=== PATIENT | male | born 1940 | race Caucasian/White ===

== ENCOUNTER 2023-02-12 08:08 | Outpatient (OUT) | payer MEDICARE, OTHER, SELFPAY ==
[2023-02-12 08:47] LABS: Hemoglobin 15.1 g/dL (14.0-18.0); Mean Corpuscular HGB Conc 34.3 g/dL (29.9-35.2); Mean Corpuscular Hemoglobin 31.9 pg (25.9-34.0); Mean Corpuscular Volume 92.8 fL (80.0-94.0); Mean Platelet Volume 10.4 fL (9.5-13.5); Platelet Count 138 10^3/uL (150-450); Red Blood Count 4.74 10^6/uL (4.70-6.10); Red Cell Distribution Width 12.8 % (11.0-15.0); White Blood Count 6.2 10^3/uL (4.0-11.0)
[2023-02-12 08:53] LABS: Segmented Neut Absolute Manual 4.09 10^3/uL (1.4-6.5)
[2023-02-12 08:54] LABS: Eosinophils Absolute Manual 0.31 10^3/uL (0.00-0.70); Monocytes Absolute Manual 0.43 10^3/uL (0.30-0.80)
[2023-02-12 09:33] LABS: Alanine Aminotransferase 20 U/L (16-63); Anion Gap 9.6; BUN Creatinine Ratio 19.7; Calcium 8.8 mg/dL (8.5-10.1); Carbon Dioxide 30.5 mmol/L (21.0-32.0); Chloride 105 mmol/L (98-107); Chol HDL Ratio 3.4; Cholesterol 195 mg/dL (<=200); Estimated GFR (African America >60 (>=60); Estimated GFR (Non-African Ame 57 (>=60); Glucose 87 mg/dL (74-106); HDL Cholesterol 57 mg/dL (40-60); LDL Cholesterol Calculated 125.6 mg/dL; Potassium 4.1 mmol/L (3.5-5.1); Sodium 141 mmol/L (136-145); Triglycerides 62 mg/dL (<=150); VLDL CHOLESTEROL 12.4 mg/dL
[2023-02-12 09:45] LABS: Prostate Specific Antigen Scrn 2.68 ng/mL (<=4.00)
== END 2023-02-12 08:09 | disposition home or self-care (01) ==
LOC: LAB 08:16
PROVIDERS: PCP Internal Medicine; Visit Provider Internal Medicine
DX: E78.00 Pure hypercholesterolemia, unspecified (principal); N18.31 Chronic kidney disease, stage 3a; Z12.5 Encounter for screening for malignant neoplasm of prostate; Z79.899 Other long term (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 therapy
CPT/HCPCS: 36415; 80048; 80061; 84460; 85007; 85025; 85027; G0103

== ENCOUNTER 2023-08-01 11:05 | Outpatient (OUT) | payer MEDICARE, OTHER, SELFPAY ==
--- NOTE | 2023-08-01 11:12 | XR_ITS ---
[facility] [place] [id number] Patient Name: NEISHA MITCHELL MRN: [id number] date: 1940 Sex: M Assigned Patient Location: [facility] Current Patient Location: Accession/Order Number: [id number] Exam Date: 08/01/2023 11:21 Report Date: 08/02/2023 15:59 At the request of: SARA TAYLOR Procedure: XR ribs RT min 3V w CXR1V EXAMINATION: XR ribs RT min 3V w CXR1V HISTORY: Rib pain after fall COMPARISON: None. TECHNIQUE: PA and AP chest, and 4 views of the ribs FINDINGS: IMPRESSION: Minimally displaced fractures of the posterior aspect of the seventh, eighth and ninth ribs. The lung parenchyma is free of consolidation or infiltrate. No pneumothorax or pleural effusion. The cardiac, mediastinal and hilar contours are normal. Electronically authenticated by: AUGUSTO WILLIAMSON Date: 08/02/2023 15:59
== END 2023-08-01 11:06 | disposition home or self-care (01) ==
PROVIDERS: PCP Internal Medicine; Visit Provider Internal Medicine
DX: R07.89 Other chest pain (principal)
CPT/HCPCS: 71101

== ENCOUNTER 2023-09-28 09:27 | Outpatient (OUT) | payer MEDICARE, OTHER, SELFPAY ==
--- OUTSIDE RECORDS SUMMARY | 2023-09-28 09:29 | XMS_ITS | CCD ---
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 Name Role Phone BRANDON [phone] UNKNOWN Unavailable Unavailable BETH GOODEN Unavailable Unavailable BETH GOODEN Unavailable Unavailable BETH GOODEN Unavailable Unavailable Cecilio Benjamin Unavailable BRANDON, DR RUIZ Primary Care Unavailable DIAB ., JUS Admitting Unavailable DIAB ., JUS Attending Unavailable DIAB ., JUS Consulting Unavailable RASTEGAR, CHUCK Consulting Unavailable BRANDON, DR RUIZ Primary Care Unavailable HAY ., DR GONZALEZ Admitting Unavailable HAY ., DR GONZALEZ Attending Unavailable HAY ., DR GONZALEZ Consulting Unavailable DE LA FUENTE ., MR SWEET Consulting Unavailable KNABE, RADHA Consulting Unavailable BRANDON, DR RUIZ Admitting Unavailable BRANDON, DR RUIZ Attending Unavailable BRANDON, DR RUIZ Primary Care Unavailable BRANDON, DR RUIZ Consulting Unavailable ZIEBER, DR JONAS Mina Consulting Unavailable BRANDON, DR RUIZ Admitting Unavailable BRANDON, DR RUIZ Attending Unavailable BRANDON, DR RUIZ Primary Care Unavailable BRANDON, DR RUIZ Consulting Unavailable BRANDON, DR RUIZ Admitting Unavailable BRANDON, DR RUIZ Attending Unavailable BRANDON, DR RUIZ Primary Care Unavailable BRANDON, DR RUIZ Consulting Unavailable HAWLEY, WINELISE Consulting Unavailable MD Jose Enrique Leblanc II Attending Provider [phone] Jose Enrique Leblanc II Unavailable [phone] Jose Enrique Leblanc II Attending UnavailJose Enrique Malin II Admitting UnavailCecilio Mcgrath DO Primary Care Provider DAVID JAEGER Admitting Unavailable DAVID JAEGER Attending Unavailable CECILIO BENJAMIN Primary Care Unavailable Allergies Allergy Classification Reported Allergen(s) Allergy Type Date of Onset Reaction(s) Facility (7 sources) bacitracin; Translations: [bacitracin] Drug Allergy 09-11-2013 Unknown [facility] Repository (19 sources) Albuterol Drug Allergy Unknown [facility] Other (20 sources) HMG-CoA reductase inhibitor Drug allergy Unknown [facility] Other Medications Current Medications Medication Drug Class(es) Dates Sig (Normalized) Sig (Original) amLODIPine 2.5 mg oral tablet (20 sources) Dihydropyridine Calcium Channel Chanel Start: 10-12-2022 take 1 tablet by mouth every twenty-four hours amLODIPine Besylate 2.5 MG 1 tablet Orally Once a day Sep, Active atorvastatin 10 mg oral tablet (5 sources) HMG-CoA Reductase Inhibitor Start: 09-27-2022 take 1 tablet by mouth once daily in the evening Atorvastatin Calcium 10 MG 1 tablet Orally daily in evening for 30 day(s) Sep, Active clobetasol propionate 0.0005 mg/mg topical ointment (20 sources) Corticosteroid Clobetasol Propionate 0.05 % 1 application Externally Twice a day Active clonazePAM 0.5 mg oral tablet (20 sources) Benzodiazepine Start: 09-03-2023 take 1 tablet by mouth every twenty-four hours clonazePAM 0.5 MG 1 tablet at bedtime Orally Once a day for 90 days Aug, Active Start: 06-15-2023 take 1 tablet by christen th every twenty-four hours clonazePAM 0.5 MG 1 tablet at bedtime Orally Once a day May, Active Start: 02-14-2023 take 1 tablet by christen th every twenty-four hours clonazePAM 0.5 MG 1 tablet at bedtime Orally Once a day for 90 days Jan, Active Comment on above: Take 0.5 mg by mouth at bedtime as needed (1/2 tab). doxycycline hyclate 100 mg oral capsule (12 sources) Tetracycline-class Drug Start: 07-10-20 take 1 capsule by mouth every twelve hours Doxycycline Hyclate 100 MG 1 capsule Orally Twice a day for 7 days Aug, Active escitalopram 10 mg oral tablet (20 sources) Serotonin Reuptake Inhibitor Escitalopram Oxalate 10 MG TAKE 1 TABLET AT BEDTIME Active Comment on above: Take 10 mg by mouth once daily. 60 actuat fluticasone propionate 0.25 mg/actuat / salmeterol 0.05 mg/actuat dry powder inhaler (20 sources) Corticosteroid, beta2-Adrenergic Agonist take 1 puff(s) by inhalation twice daily Wixela Inhub 250-50 MCG/ACT 1 puff Inhalation Twice a day for 90 days Active take 1 puff(s) by in halation once daily FLUTICASONE/SALMETEROL (ADVAIR DISKUS INHALATION) Inhale 1 Puff as instructed once daily. 0 Active Comment on above: Inhale 1 Puff as ins tructed once daily. mupirocin 0.02 mg/mg topical ointment (20 sources) RNA Synthetase Inhibitor Antibacterial Mupirocin 2 % 1 application Externally Twice a day Active omeprazole 20 mg delayed release oral capsule (20 sources) Proton Pump Inhibitor Omeprazole 20 MG TAKE 1 CAPSULE EVERY DAY ON AN EMPTY STOMACH FOLLOWED IN 30 MINUTES BY BREAKFAST Active Comment on above: Take 20 mg by mouth once daily. predniSONE 20 mg oral tablet (3 sources) Start: take 1 tablet by mouth twice daily predniSONE 20 MG 1 tablet Orally bid w/ food for 5 days Aug, Active silver sulfADIAZINE 10 mg/ml topical cream (20 sources) Sulfonamide Antibacterial Silvadene 1 % 1 application Externally Once a day Active Silvadene 1 % 1 application Externally Once a day Active tamsulosin hydrochloride 0.4 mg oral capsule (20 sources) alpha-Adrenergic Chanel Tamsulo sin HCl 0.4 MG TAKE 1 CAPSULE EVERY EVENING Active Comment on above: Take 0.4 mg by mouth . triamcinolone acetonide 0.001 mg/mg topical ointment (20 sources) Corticosteroid Start: 05-30-2023 Triamcinolone Acetonide 0.1 % 1 application Externally Twice a day for 30 days May, Active Start: 11-09-2022 Kenalog-40 Oct, 120 mg Completed/Discontinued Medications Medication Drug Class(es) Dates Sig (Normalized) Sig (Original) acetaminophen 500 mg oral tablet (20 sources) Start: 01-02-2018 take 2 tablets by mouth every eight hours acetaminophen (TYLENOL) 500 mg tablet Take 2 tablets by mouth every 8 hours. (Mild pain reliever) 90 tablet 1 01/02/2018 Active take 2 tablets by mo ut every eight hours as needed Acetaminophen 325 MG 2 tablets by mouth Orally every 8 hours PRN Active Comment on above: Take 2 tablets by mo uth every 8 hours. (Mild pain reliever) [id number] 200 actuat albuterol 0.09 mg/actuat metered dose inhaler (4 sources) beta2-Adrenergic Agonist Start: 07-22-20 21 albuterol HFA (PROVENTIL HFA, VENTOLIN HFA) 90 mcg/actuation inhaler amoxicillin 500 mg oral tablet (4 sources) Penicillin-class Antibacterial Start: 12-05-19 19 Amoxicillin 500 mg tablet Take 4 tablets by mouth 1 hour prior to procedure and 2 tablets by mouth 6 hours after procedure 6 tablet 5 12/04/2018 Active Comment on above: Take 4 tablets by [facility] 1 hour prior to procedure and 2 tablets by mouth 6 hours after procedure aspirin 325 mg delayed release oral tablet (4 sources) Platelet Aggregation Inhibitor, Nonsteroidal Anti-inflammatory Drug Start: 01-03-20 18 take 1 tablet by mouth twice daily aspirin, enteric coated (ASPIRIN, ENTERIC COATED) 325 mg EC tablet Take 1 tablet by mouth twice daily. (Blood thinner to prevent blood clots) 84 tablet 0 01/02/2018 Active Comment on above: Take 1 tablet by [facility] twice daily. (Blood thinner to prevent blood clots) Calcium Carbonate / vitamin D3 (4 sources) take 1 tablet by mouth once daily CALCIUM CARBONATE/VITAMIN D3 (VITAMIN D-3 ORAL) Take 1 tablet by mouth once daily. 0 Active Comment on above: Take 1 tablet by [facility] once daily. COMPOUNDED PRESCRIPTION (4 sources) COMPOUNDED PRESCRIPTION Fiber Well 5mg. Take daily 0 Active Comment on above: Fiber Well 5mg. Take daily docusate sodium 100 mg oral capsule (4 sources) Start: 01-03-20 18 take 1 capsule by mouth twice daily docusate sodium (COLACE) 100 mg capsule Take 1 capsule by mouth twice daily. (Stool softener) 60 capsule 0 01/02/2018 Active Comment on above: Take 1 capsule by [facility] twice daily. (Stool softener) ferrous sulfate 325 mg oral tablet (1 source) Start: 01-03-20 18 End: 02-20-20 23 take 1 tablet by mouth twice daily at mealtime ferrous sulfate 325 mg (65 mg iron) tablet Take 1 tablet by mouth twice daily with meals. (Iron supplement) 30 tablet 0 01/02/2018 02/19/2023 Discontinued Comment on above: Take 1 tablet by [facility] twice daily with meals. (Iron supplement) FISH OIL-DHA-EPA ORAL (4 sources) take 1 capsule by mouth once daily FISH OIL-DHA-EPA ORAL Take 1 capsule by mouth once daily. 0 Active Comment on above: Take 1 capsule by mo uth once daily. MELATONIN, BULK, MISC (5 sources) MELATONIN, BULK, MISC Take 2 tablets by mouth. 0 Active End: 02-19-2023 take 2 tablets by mouth once daily at bedtime MELATONIN, BULK, MISC Take 2 tablets by mouth daily at bedtime. 0 02/19/2023 Discontinued Comment on above: Take 2 tablets by mo uth. Take 2 tablets by mo uth daily at bedtime. methylPREDNISolone (1 source) Corticosteroid Start: 2020 End: 2022 methylPREDNISolone (MEDROL, AYLA,) 4 mg Dose-Pack Take as directed on package. Do not take any NSAID'S while taking medication. 1 Package 0 05/09/2021 02/19/2023 Discontinued Comment on above: Take as directed on package. Do not take any NSAID'S while taking medication. Miscellaneous Medical Supply (TABLET CUTTER) misc (1 source) Start: 2017 End: 2022 Miscellaneous Medical Supply (TABLET CUTTER) misc Indications: Primary osteoarthritis of right hip [place] Please include hit kit 1 Each 0 12/12/2017 02/19/2023 Discontinued Comment on above: [place] Please include hit kit Multivitamin capsule (4 sources) take 1 capsule by mouth once daily Multivitamin capsule Take 1 capsule by mouth once daily. 0 Active Comment on above: Take 1 capsule by mo uth once daily. nabumetone 500 mg oral tablet (20 sources) Nonsteroidal Anti-inflammatory Drug Start: 2020 nabumetone (RELAFEN) 500 mg tablet Problems Active Problems Problem Classification Problem Date Documented Date Episodic/Chronic Acute bronchitis (8 sources) Acute bronchitis; Translations: [Acute bronchitis due to other specified organisms] Episodic Allergic reactions (11 sources) Inflammatory dermatosis; Translations: [Dermatitis, unspecified] 08-15-2021 Episodic Anxiety disorders (20 sources) Generalized anxiety disorder; Translations: [Generalized anxiety disorder] Onset: 09-11-2013 Chronic Aspiration pneumonitis; food/vomitus (11 sources) Pneumonitis due to inhalation of food or vomitus; Translations: [Pneumonitis due to inhalation of food and vomit] Onset: 12-06-2021 Episodic Asthma (5 sources) Unspecified asthma, uncomplicated; Translations: [Asthma] Onset: 08-15-2022 01-02-2018 Chronic Chronic kidney disease (20 sources) Chronic kidney disease stage 3A ; Translations: [Stage 3a chronic kidney disease] Chronic Chronic obstructive pulmonary disease and bronchiectasis (20 sources) Emphysematous bronchitis; Translations: [Chronic obstructive pulmonary disease, unspecified] Chronic Disorders of lipid metabolism (20 sources) Pure hypercholesterolemia; 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] Onset: 02-09-2022 Chronic Esophageal disorders (15 sources) Gastroesophageal reflux disease; Translations: [Gastro-esophageal reflux disease without esophagitis] 01-02-2018 Chronic Essential hypertension (20 sources) Essential hypertension; Translations: [Essential (primary) hypertension] Chronic Genitourinary symptoms and ill-defined conditions (1 source) Nocturia Episodic Gout and other crystal arthropathies (17 sources) Chondrocalcinosis of joint of left knee; Translations: [Other chondrocalcinosis, left knee] Chronic Heart valve disorders (20 sources) Systolic murmur; Translations: [Cardiac murmur, unspecified] Episodic Hyperplasia of prostate (20 sources) Lower urinary tract symptoms due to benign prostatic hypertrophy; Translations: [Benign prostatic hyperplasia with lower urinary tract symptoms] Chronic Nonspecific chest pain (1 source) Other chest pain Episodic Occlusion or stenosis of precerebral arteries (20 sources) Bilateral stenosis of carotid arteries; Translations: [Occlusion and stenosis of bilateral carotid arteries] Onset: 09-27-2022 Chronic Osteoarthritis (20 sources) Localized, primary osteoarthritis of the shoulder region; Translations: [Primary osteoarthritis, left shoulder] Onset: 10-30-2017 Chronic Other acquired deformities (20 sources) Joint contracture of the ankle and/or foot; Translations: [Contracture, left ankle] Chronic Other acquired deformities (7 sources) Acquired spondylolisthesis; Translations: [Spondylolysis, lumbar region] Episodic Other aftercare (2 sources) 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; Translations: [OTH PEDIATRIC CNS CURRENT DRUG THERAPY] Onset: 11-06-2022 Episodic Other circulatory disease (7 sources) Elevated blood-pressure reading without diagnosis of hypertension; Translations: [Elevated blood-pressure reading, without diagnosis of hypertension] Episodic Other circulatory disease (6 sources) Other specified symptoms and signs involving the circulatory and respiratory systems; Translations: [OTH SPEC SX SIGNS INVLV CIRC RS] Onset: 09-26-2022 Episodic Other connective tissue disease (20 sources) Plantar fasciitis; Translations: [Plantar fascial fibromatosis] Episodic Other connective tissue disease (7 sources) Pain in left foot; Translations: [Pain in left foot] Episodic Other connective tissue disease (20 sources) Olecranon bursitis; Translations: [Olecranon bursitis, right elbow] Episodic Other connective tissue disease (1 source) Olecranon bursitis, right elbow; Translations: [Olecranon bursitis of right elbow] Episodic Other diseases of veins and lymphatics (8 sources) Stasis dermatitis; Translations: [Venous insufficiency (chronic) (peripheral)] Episodic Other diseases of veins and lymphatics (1 source) Venous insufficiency (chronic) (peripheral) Episodic Other injuries and conditions due to external causes (2 sources) Unspecified multiple injuries, initial encounter Episodic Other lower respiratory disease (7 sources) Dyspnea on exertion; Translations: [Other forms of dyspnea] Episodic Other lower respiratory disease (3 sources) Shortness of breath; Translations: [SHORTNESS OF BREATH] Onset: 08-10-2022 Episodic Other nervous system disorders (20 sources) Lesion of ulnar nerve; Translations: [Lesion of ulnar nerve, left upper limb] Chronic Other nervous system disorders (4 sources) Ulnar nerve entrapment at elbow; Translations: [Lesion of ulnar nerve, unspecified upper limb] Onset: 09-11-2013 09-11-2013 Chronic Other nervous system disorders (1 source) Lesion of ulnar nerve, left upper limb; 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] Chronic Other non-traumatic joint disorders (4 sources) Effusion, left knee; Translations: [EFFUSION LEFT KNEE] Onset: 11-05-2022 Episodic Other non-traumatic joint disorders (1 source) Pain in left knee Episodic Other screening for suspected conditions (not mental disorders or infectious disease) (1 source) Encounter for screening for malignant neoplasm of prostate Episodic Other skin disorders (7 sources) Localized swelling of left lower leg; Translations: [Localized swelling, mass and lump, left lower limb] Episodic Other skin disorders (1 source) Xerosis cutis Episodic Residual codes; unclassified (20 sources) Obstructive sleep apnea syndrome; Translations: [Obstructive sleep apnea (adult) (pediatric)] 01-02-2018 Chronic Residual codes; unclassified (3 sources) Obstructive sleep apnea (adult) (pediatric) Chronic Residual codes; unclassified (1 source) Acquired absence of other specified parts of digestive tract; Translations: [ACQ ABSENCE OTH PART DIGESTV TRACT] Onset: 11-06-2022 Episodic Retinal detachments; defects; vascular occlusion; and retinopathy (20 sources) Hemorrhage of right retina; Translations: [Retinal hemorrhage, right eye] Chronic Skin and subcutaneous tissue infections (2 sources) Cellulitis of right lower limb Episodic Spondylosis; intervertebral disc disorders; other back problems (20 sources) Lumbar spondylosis; Translations: [Spondylosis without myelopathy or radiculopathy, lumbar region] Chronic Sprains and strains (1 source) Strain of unspecified muscle(s) and tendon(s) at lower leg level, left leg, initial encounter Episodic Superficial injury; contusion (9 sources) Contusion of left foot; Translations: [Contusion of left foot, subsequent encounter] Episodic Unclassified (1 source) CONTACT W/AND (SUSP) EXPOS COVID-19; Translations: [CONTACT W/AND (SUSP) EXPOS COVID-19] Onset: 08-15-2022 Unclassified (1 source) Pain in left knee; Translations: [Pain in left knee] Onset: 11-09-2022 Past or Other Problems Problem Classification Problem Date Documented Da te Episodic/Chronic Chronic kidney disease (8 sources) Chronic kidney disease; Translations: [CHRONIC KIDNEY DISEASE STAGE 3A] Onset: 02-14-2022 Chronic obstructive pulmonary disease and bronchiectasis (1 source) Bronchitis, not specified as acute or chronic; Translations: [BRONCHITIS NOT SPEC ACUTE/CHRON] Onset: 12-15-2021 Episodic Esophageal disorders (13 sources) Esophageal disorders; Translations: [Gastroesophageal reflux disease with esophagitis without hemorrhage] Other connective tissue disease (4 sources) Impingement syndrome of shoulder region; Translations: [Impingement syndrome of unspecified shoulder] Onset: 09-11-2013 09-11-2013 Episodic Other connective tissue disease (4 sources) History of cervical spine fusion; Translations: [Arthrodesis status] Onset: 09-11-2013 09-11-2013 Episodic Other connective tissue disease (4 sources) Partial thickness rotator cuff tear; Translations: [Incomplete rotator cuff tear or rupture of right shoulder, not specified as traumatic] Onset: 01-11-2017 01-11-2017 Episodic Other connective tissue disease (4 sources) Full thickness rotator cuff tear; Translations: [Complete rotator cuff tear or rupture of right shoulder, not specified as traumatic] Onset: 05-17-2017 05-17-2017 Episodic Spondylosis; intervertebral disc disorders; other back problems (17 sources) Lumbar radiculopathy; Translations: [Radiculopathy, lumbar region] Onset: 09-29-2013 Episodic Results Test Name Value Interpretation Reference Range Facility [facility] 03-20-2023 CNPN Telephone (SPNMAV) RUPERTO THORPE ([id number]) 1940 [address] Mo* Date Time Provider Department 03/20/23 DAVID JAEGER SPARAV During your visit today, we recorded the following information about you: Neida Porter MA 03/20/2023 12:30 PM Signed DATE OF SERVICE: 03/15/2023 PATIENT'S PHONE NUMBERS: [phone] (home) OR @[facility]@ PROVIDER: Dr. Jaeger PROCEDURE: Elective Pain Management Procedure Left message on machine Asked pt to call back and speak with the specialty triage nurse with update. Please obtain percentage better and the duration of improvement. Please inquire if there were any problems afterwards. Thanks, Roland Lira, RN 03/21/2023 1:31 PM Signed Patient calling back 15% improvement so far Numbness and tingling in Left Foot Also still having pain in his Hamstring 6/10 Pain is Zero when sleeping States he does not have any trouble sleeping Pain is when he is up and trying to work Requesting to call his CELL ONLY [phone] what to do next Leave Detailed messages Neida Porter MA 03/21/2023 2:01 PM Signed Formatted spine intervention order and sent to Dr. Jaeger for approval. Neida Porter MA 03/21/2023 2:01 PM Signed Addended by: NEIDA PORTER on: 03/21/2023 02:01 PM Modules accepted: David Dorsey DO 03/21/2023 2:06 PM Signed Addended by: DAVID JAEGER on: 03/21/2023 02:06 PM Modules accepted: Orders Neida Porter MA 03/21/2023 2:08 PM Signed Called and spoke with patient. Advised patient that spine injection can take up to 10 days to reach maximum effect. Advised patient that he can schedule another injection if no improvement. Order is in chart. Patient opted to wait the 10 days to see if he gets any more improvement in system. Gave patient phone number of spine injection schedulers to call at [phone]. Patient will call if he wants to schedule another injection. 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 - nabumetone (RELAFEN) 500 mg tablet - Amoxicillin 500 mg tablet Take 4 tablets by mouth 1 hour prior to procedure and 2 tablets by mouth 6 hours after procedure - acetaminophen (TYLENOL) 500 mg tablet Take 2 tablets by mouth every 8 hours. (Mild pain reliever) - docusate sodium (COLACE) 100 mg capsule Take 1 capsule by mouth twice daily. (Stool softener) - aspirin, enteric coated (ASPIRIN, ENTERIC COATED) 325 mg EC tablet Take 1 tablet by mouth twice daily. (Blood thinner to prevent blood clots) - FISH OIL-DHA-EPA ORAL Take 1 capsule by mouth once daily. - COMPOUNDED PRESCRIPTION Fiber Well 5mg. Take daily - FLUTICASONE/SALMETEROL (ADVAIR DISKUS INHALATION) Inhale 1 Puff as instructed once daily. - tamsulosin ER (FLOMAX) 0.4 mg cp24 Take 0.4 mg by mouth. - escitalopram oxalate (LEXAPRO) 10 mg tablet Take 10 mg by mouth once daily. - omeprazole (PRILOSEC) 20 mg capsule Take 20 mg by mouth once daily. - clonazePAM (KLONOPIN) 0.5 mg tablet Take 0.5 mg by mouth at bedtime as needed (1/2 tab). - CALCIUM CARBONATE/VITAMIN D3 (VITAMIN D-3 ORAL) Take 1 tablet by mouth once daily. - Multivitamin capsule Take 1 capsule by mouth once daily. Problem List As Of Date 03/20/2023 Noted Resolved Multiple allergies [Z88.9] Anxiety [F41.9] 09/11/2013 Impingement syndrome, shoulder [M75.40] 09/11/2013 Cubital tunnel syndrome [G56.20] 09/11/2013 Status post cervical spinal fusion [Z98.1] 09/11/2013 Pain, upper back [M54.9] 09/29/2013 Incomplete tear of right rotator cuff [M75.111] 01/11/2017 Complete tear of right rotator cuff [M75.121] 05/17/2017 Osteoarthritis of right hip [M16.11] 10/30/2017 Asthma [J45.909] GERD (gastroesophageal reflux disease) [K21.9] JACI (obstructive sleep apnea) [G47.33] Primary osteoarthritis of right hip [M16.11] 01/01/2018 BPH (benign prostatic hyperplasia) [N40.0] Encounter Status:Closed by NEIDA PORTER on 03/20/23 [facility] OPERATIVE NOon 03-15-2023 OPERATIVE NO HNO ID: [id number] Author: David Jaeger, DO Service: ? Author Type: Physician Type: Operative Report Filed: 03/15/2023 9:43 AM Note Text: Pt presents for f/u. Continues to have lt leg pain. Last injection was over 18 months ago. Wants to proceed with an injection today to address the presenting symptoms. Consent obtained. Lt side was marked in the pre-op area. Pt is aware of risks, benefits, alternatives, expected outcome, equipment and personnel. The patient was offered a procedure / surgery at a [facility] facility. Patient and I have discussed in detail the risk of exposure to and/or potential harm posed by the COVID-19 virus with having a surgery/procedure at this time versus the risk of delaying the surgery/procedure. It is not possible to know either the risk of delaying the surgery or procedure or chance of getting an infection with perfect accuracy, but a joint decision was made between the patient and the surgeon/proceduralist to proceed at this time with the scheduled surgery/procedure as indicated on the consent form. [facility] approved time out was performed identifying the site, side and level of procedure prior to start of procedure. [facility] - ELECTIVE PROCEDURE Lumbar Transforaminal Epidural Steroid Injection and/or Selective Nerve Root Block under Fluoroscopy Indication: Lumbar Spinal Stenosis with neurogenic claudication and Lt thoracolumbar radiculitis The risks and benefits of the procedure were discussed with the patient. The verbal and written informed consent of the patient was obtained. The patient was taken to the fluoroscopy suite. The patient was placed in the prone position on the fluoroscopic table, and the lumbar area was prepped and draped in a sterile fashion. DuraPrep was used per skin prep guidelines. We waited 3 minutes by timer for the DuraPrep to dry before proceed with the procedure. Using fluoroscopic guidance the L5 vertebral body was definitively identified using the most caudal normal disc space labeled as L5-S1. The iliac crest was also visualized as a secondary landmark identifying the L4-5 level. First image is with a needle marker on the lt side. The Lt L3-4 neural foramen was identified using fluoroscopic guidance after which the overlying skin was anesthetized using sterile technique with 1% preservative free Xylocaine. A sterile 3.5 inch 22G spinal needle was introduced after which the needle tip was carefully directed toward the inferior (6 o'clock) position of the pedicle which formed the roof of the identified foramen. No blood or CSF was aspirated. Omnipaque 300mgI/mL, approximately 1 cc was injected to rule out intravascular placement of the needle. Medial flow was noted on AP/ oblique view along with contrast under the pedicle on the lateral view. X-rays were obtained for documentation purpose. After this, 10 mg of dexamethasone + 3 cc's of 2% Xylocaine preservative free was injected into the intervertebral foramen The needle was then removed. Vital signs remained normal. There were no complications. Pulse oximeter was used throughout the procedure and the patient's pulse and oxygen saturation remained within normal limits. The patient tolerated the procedure well. The patient was instructed to apply ice over the injection site for twenty minutes every two hours for the next twenty-four to forty-eight hours. The patient was also instructed to contact me if there is any exacerbation of the symptoms. Post procedure instruction sheet was given. The patient was recommended to follow up with me in one to two weeks. Incision/Procedure Start Time: 9:37 AM Incision Close/Procedure End Time: 9:41 AM Date of Service: 03/15/2023 I was present for the entire duration of the procedure and I performed the entire procedure. David Jaeger DO, MBA [facility] 02-26-2023 [facility] Telephone (SPNMAV) RUPERTO THORPE ([id number]) 1940 [address] [facility] [place] [facility] Date Time Provider Department 02/26/23 DAVID JAEGER During your visit today, we recorded the following information about you: Linda Knox LPN 02/26/2023 4:49 PM Signed Spoke to patient in [facility] to pre procedure instructions. Pt must have a front loader residential driver. Pt advised to arrive 30 min prior. Pt to advised to arrive at 8:50am for a 9:20am procedure. , 03/15. Pt advised will also receive a call the day before from the surgery center to confirm date/time. Pt can eat and drink as normal. and Pt can take medications as normal. No alcohol 24 hours prior. Pt is on ASA.-81 mg okay to take. Advised on location of [facility] [place] [address] Pt will receive a follow up call several days after by a meat service team member. If you experience any increase in weakness, difficulty walking or significant increase in pain that last more than 4 hours, please proceed to the Emergency Room and tell them you had a spine procedure done recently. Additionally, call us and notify us of these symptoms. Please call [phone] if you have any questions. Pt verbalized understanding. Allergies As of Date: 02/26/2023 Noted Allergy Reaction BACITRACIN 09/11/2013 16 - Unknown Date Reviewed: 07/19/2021 Reviewed by: Kathrine Sood RN - Fully Assessed Reason for Visit: Procedure [88] Prescriptions as of 02/26/2023 - albuterol HFA (PROVENTIL HFA, VENTOLIN HFA) 90 mcg/actuation inhaler - MELATONIN, BULK, MISC Take 2 tablets by mouth. - nabumetone (RELAFEN) 500 mg tablet - Amoxicillin 500 mg tablet Take 4 tablets by mouth 1 hour prior to procedure and 2 tablets by mouth 6 hours after procedure - acetaminophen (TYLENOL) 500 mg tablet Take 2 tablets by mouth every 8 hours. (Mild pain reliever) - docusate sodium (COLACE) 100 mg capsule Take 1 capsule by mouth twice daily. (Stool softener) - aspirin, enteric coated (ASPIRIN, ENTERIC COATED) 325 mg EC tablet Take 1 tablet by mouth twice daily. (Blood thinner to prevent blood clots) - FISH OIL-DHA-EPA ORAL Take 1 capsule by mouth once daily. - COMPOUNDED PRESCRIPTION Fiber Well 5mg. Take daily - FLUTICASONE/SALMETEROL (ADVAIR DISKUS INHALATION) Inhale 1 Puff as instructed once daily. - tamsulosin ER (FLOMAX) 0.4 mg cp24 Take 0.4 mg by mouth. - escitalopram oxalate (LEXAPRO) 10 mg tablet Take 10 mg by mouth once daily. - omeprazole (PRILOSEC) 20 mg capsule Take 20 mg by mouth once daily. - clonazePAM (KLONOPIN) 0.5 mg tablet Take 0.5 mg by mouth at bedtime as needed (1/2 tab). - CALCIUM CARBONATE/VITAMIN D3 (VITAMIN D-3 ORAL) Take 1 tablet by mouth once daily. - Multivitamin capsule Take 1 capsule by mouth once daily. Problem List As Of Date 02/26/2023 Noted Resolved Multiple allergies [Z88.9] Anxiety [F41.9] 09/11/2013 Impingement syndrome, shoulder [M75.40] 09/11/2013 Cubital tunnel syndrome [G56.20] 09/11/2013 Status post cervical spinal fusion [Z98.1] 09/11/2013 Pain, upper back [M54.9] 09/29/2013 Incomplete tear of right rotator cuff [M75.111] 01/11/2017 Complete tear of right rotator cuff [M75.121] 05/17/2017 Osteoarthritis of right hip [M16.11] 10/30/2017 Asthma [J45.909] GERD (gastroesophageal reflux disease) [K21.9] JACI (obstructive sleep apnea) [G47.33] Primary osteoarthritis of right hip [M16.11] 01/01/2018 BPH (benign prostatic hyperplasia) [N40.0] Encounter Status:Closed by LINDA KNOX LPN on 02/26/23 [facility] 02-19-2023 CHELLE Telephone (SPNMAV) RUPERTO THORPE ([id number]) 1940 Jill Marie* Date Time Provider Department 02/19/23 DAVID JAEGER SPNMAV During your visit today, we recorded the following information about you: Camilla Jarrell [facility] 02/19/2023 9:27 AM Signed Ruperto Thorpe daughter Celi is calling David Jaeger DO today to ask about getting patient a shot again - Last one in 2020 Please advise what patient needs as far as OV or MRI or if he can be scheduled for procedure - daughter states she left a VM somewhere last week but never heard back Please call Celi as patient cannot hear well [phone] Patient has been identified by name and birthdate. Duration of symptoms: N/A Person calling: daughter: Celi Call patient at: N/A [phone] (home) [phone] (cell) Was an appointment scheduled: No Closing statement: Results or non-symptom based questions: Thank you for calling [facility], your call will be returned within the next business day. Camilla Jarrell Pss Linda Knox LPN 02/19/2023 9:45 AM Signed Spine Intervention order formatted for review Linda Chandler DRUMMOND 02/19/2023 11:59 AM Signed Order approved Spoke to daughter in reguards to pre procedure instructions. Daughter given scheduling number [phone] Pt must have a front loader residential driver. Pt advised to arrive 30 min prior to the time given by the cloud infrastructure architect. Pt advised will also receive a call the day before from the surgery center to confirm date/time. Pt can eat and drink as normal. and Pt can take medications as normal. No alcohol 24 hours prior. Pt is on ASA.- 81 mg okay to take. and must Advised on location of ASC-2nd floor [facility] Pt will receive a follow up call several days after by a meat service team member. If you experience any increase in weakness, difficulty walking or significant increase in pain that last more than 4 hours, please proceed to the Emergency Room and tell them you had a spine procedure done recently. Additionally, call us and notify us of these symptoms. Please call [phone] if you have any questions. Pt verbalized understanding. 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 - nabumetone (RELAFEN) 500 mg tablet - Amoxicillin 500 mg tablet Take 4 tablets by mouth 1 hour prior to procedure and 2 tablets by mouth 6 hours after procedure - acetaminophen (TYLENOL) 500 mg tablet Take 2 tablets by mouth every 8 hours. (Mild pain reliever) - docusate sodium (COLACE) 100 mg capsule Take 1 capsule by mouth twice daily. (Stool softener) - aspirin, enteric coated (ASPIRIN, ENTERIC COATED) 325 mg EC tablet Take 1 tablet by mouth twice daily. (Blood thinner to prevent blood clots) - FISH OIL-DHA-EPA ORAL Take 1 capsule by mouth once daily. - COMPOUNDED PRESCRIPTION Fiber Well 5mg. Take daily - FLUTICASONE/SALMETEROL (ADVAIR DISKUS INHALATION) Inhale 1 Puff as instructed once daily. - tamsulosin ER (FLOMAX) 0.4 mg cp24 Take 0.4 mg by mouth. - escitalopram oxalate (LEXAPRO) 10 mg tablet Take 10 mg by mouth once daily. - omeprazole (PRILOSEC) 20 mg capsule Take 20 mg by mouth once daily. - clonazePAM (KLONOPIN) 0.5 mg tablet Take 0.5 mg by mouth at bedtime as needed (1/2 tab). - CALCIUM CARBONATE/VITAMIN D3 (VITAMIN D-3 ORAL) Take 1 tablet by mouth once daily. - Multivitamin capsule Take 1 capsule by mouth once daily. 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.1] 09/11/2013 Pain, upper back [M54.9] 09/29/2013 Incomplete tear of right rotator cuff [M75.111] 01/11/2017 Complete tear of right rotator cuff [M75.121] 05/17/2017 Osteoarthritis of right hip [M16.11] 10/30/2017 Asthma [J45.909] GERD (gastroesophageal reflux disease) [K21.9] JACI (obstructive sleep apnea) [G47.33] Primary osteoarthritis of right hip [M16.11] 01/01/2018 BPH (benign prostatic hyperplasia) [N40.0] Medications Discontinued During This Encounter Prescriptions - Miscellaneous Medical Supply (TABLET CUTTER) misc (Discontinued) [place] Please include hit kit - methylPREDNISolone (MEDROL, AYLA,) 4 mg Dose-Pack (Discontinued) Take as directed on package. Do not take any NSAID'S while taking medi (more content not included)... Normal [facility] XR knee LT 4V*on 11-09-2022 XR knee LT 4V* [facility] Main [employer] [address] [place] [address] XRay Report Signed Patient: Ruperto Thorpe MR#: [id number] 5 : 1940 Acct:[id number] Age/Sex: 82 / M ADM Date: 11/09/22 Loc: SOXD Room: Type: [facility] Attending Dr: Jose Enrique Leblanc II, MD Copies to: Jose Enrique Leblanc MD Ordering Provider: Jose Enrique Leblanc MD Date of Service: 11/09/22 XR/XR knee LT 4V*: Acute pain of left knee XR knee LT 4V* 11/09/2022 3:15 PM SIGNS AND SYMPTOMS: Acute pain of left knee PROTOCOL: Frontal, lateral, oblique, and sunrise views of the left knee COMPARISON: 11/05/2022 FINDINGS: There is similar narrowing of the weightbearing joint spaces with chondrocalcinosis of the menisci suggesting underlying CPPD. There is narrowing of the patellofemoral joint space with spurring at the superior pole of patella. There is a small joint effusion. No soft tissue swelling. No acute displaced fracture. Vascular calcifications are present posteriorly. XR/XR knee LT 4V* IMPRESSION: Tricompartmental degenerative changes are noted in the left knee with a small joint effusion. There is chondrocalcinosis of the menisci suggesting underlying CPPD. Impression dictated by: Darren Yuen M.D.11/09/2022 5:03 PM Dictation Location: [place] [address] Transcribed By: [facility] 11/09/221702 Dictated By: Darren Yuen II, MD 11/09/221700 Signed By: 11/09/221702 Normal [facility] XR knee LT 4V* [facility] [employer] Other XR knee LT 4V* [facility] Main [facility] [employer] Other XR knee LT 4V* [address] [place] [address] [employer] Other XR knee LT 4V* [place] [address] No rt [employer] Other XR knee LT 4V* XRay Report [employer] Other XR knee LT 4V* Signed [employer] Other XR knee LT 4V* Patient: Ruperto Thorpe MR#: [id number] [employer] Other XR knee LT 4V* 5 [employer] Other XR knee LT 4V* : 1940 Acct:[id number] [employer] Other XR knee LT 4V* Age/Sex: 82 / M ADM Date: 11/09/22 [employer] Other XR knee LT 4V* Loc: [facility] Room: Type : REG I [employer] Other XR knee LT 4V* Attending Dr: Jose Enrique Leblanc II, MD [employer] Other XR knee LT 4V* Copies to: Jose Enrique Leblanc MD [employer] Other XR knee LT 4V* Ordering Provider: Jose Enrique Leblanc MD [employer] Other XR knee LT 4V* Date of Service: 11/09/22 [employer] Other XR knee LT 4V* XR/XR knee LT 4V*: Acute pain of left knee [employer] Other XR knee LT 4V* XR knee LT 4V* 11/09/2022 3:15 PM [employer] Other XR knee LT 4V* SIGNS AND SYMPTOMS: Acute pain of left knee [employer] Other XR knee LT 4V* PROTOCOL: Frontal, lateral, oblique, and sunrise views of the left knee [employer] Other XR knee LT 4V* COMPARISON: 11/05/2022 [employer] Other XR knee LT 4V* FINDINGS: [employer] Other XR knee LT 4V* There is similar narrowing of the weightbearing joint spaces with chondrocalcinosis of the menisci [employer] Other XR knee LT 4V* suggesting underlyin g CPPD. There is narrowing of the patellofemoral joint space with spurring at [employer] Other XR knee LT 4V* the superior pole of patella. There is a small joint effusion. No soft tissue swelling. No acute [employer] Other XR knee LT 4V* displaced fracture. Vascular calcifications are present posteriorly. [employer] Other XR knee LT 4V* XR/XR knee LT 4V* [employer] Other XR knee LT 4V* IMPRESSION: [employer] Other XR knee LT 4V* Tricompartmental degenerative changes are noted in the left knee with a small joint effusion. [employer] Other XR knee LT 4V* There is chondrocalcinosis of the menisci suggesting underlying CPPD. [employer] Other XR knee LT 4V* Impression dictated by: Darren Yuen M.D.11/09/2022 5:03 PM [employer] Other XR knee LT 4V* Dictation Location: [place] [address] [employer] Other XR knee LT 4V* Transcribed By: COLIN 11/09/22 [facility] [employer] Other XR knee LT 4V* Dictated By: Darren Yuen II, MD 11/09/22 [facility] [employer] Other XR knee LT 4V* Signed By: [employer] Other XR knee LT 4V* 11/09/221702 [employer] Other XR pelvis 1-2Von 11-09-2022 XR pelvis 1-2V [facility] Main [employer] [address] [place] [address] XRay Report Signed Patient: Ruperto Thorpe MR#: [id number] 5 : 1940 Acct:[id number] Age/Sex: 82 / M ADM Date: 11/09/22 Loc: SOXD Room: Type: [facility] Attending Dr: Jose Enrique Leblanc II, MD Copies to: Jose Enrique Leblanc MD Ordering Provider: Jose Enrique Leblanc MD Date of Service: 11/09/22 XR/XR pelvis 1-2V: Acute pain of left knee XR pelvis 1-2V 11/09/2022 3:15 PM SIGNS AND SYMPTOMS: Left knee pain PROTOCOL: Frontal radiograph of the chest COMPARISON: None FINDINGS: There is mild narrowing of the left hip joint space with subcortical cystic change on both sides of the joint along the acetabular there is chondrocalcinosis of the labrum overlying the superior acetabular rim and superior lateral femoral head. The bony ring of the pelvis is intact. There is total right hip arthroplasty. Degenerative changes are noted in the sacroiliac joints. No fracture is XR/XR pelvis 1-2V IMPRESSION: Degenerative changes are noted in the left hip with findings suspicious for previous labral pathology. Postoperative changes are noted in the right hip with total right hip arthroplasty hardware. Impression dictated by: Darren Yuen M.D.11/09/2022 5:01 PM Dictation Location: [place] [address] Transcribed By: [facility] 11/09/221700 Dictated By: Darren Yuen II, MD 11/09/221699 Signed By: 11/09/221700 [facility] XR pelvis 1-2V XR/XR pelvis 1-2V: Acute pain of left knee [employer] Other XR pelvis 1-2V XR pelvis 1-2V 11/09/2022 3:15 PM [employer] Other XR pelvis 1-2V SIGNS AND SYMPTOMS: Left knee pain [employer] Other XR pelvis 1-2V PROTOCOL: Frontal radiograph of the chest [employer] Other XR pelvis 1-2V COMPARISON: None [employer] Other XR pelvis 1-2V There is mild narrowing of the left hip joint space with subcortical cystic change on both sides of [employer] Other XR pelvis 1-2V the joint along the acetabular there is chondrocalcinosis of the labrum overlying the superior [employer] Other XR pelvis 1-2V acetabular rim and superior lateral femoral head. The bony ring of the pelvis is intact. There is [employer] Other XR pelvis 1-2V total right hip arthroplasty. Degenerative changes are noted in the sacroiliac joints. No fracture [employer] Other XR pelvis 1-2V is [employer] Other XR pelvis 1-2V XR/XR pelvis 1-2V [employer] Other XR pelvis 1-2V Degenerative changes are noted in the left hip with findings suspicious for previous labral [employer] Other XR pelvis 1-2V pathology. [employer] Other XR pelvis 1-2V Postoperative change s are noted in the right hip with total right hip arthroplasty hardware. [employer] Other XR pelvis 1-2V Impression dictated by: Darren Yuen M.D.11/09/2022 5:01 PM [employer] Other XR pelvis 1-2V Transcribed By: COLIN 11/09/22 170 [employer] Other XR pelvis 1-2V Dictated By: Darren Yuen II, MD 11/09/221699 [employer] Other XR pelvis 1-2V 11/09/22 1701 [facility] Other XR KNEE LT 4V or >on 023 XR KNEE LT 4V or > EXAM: XR KNEE LT 4V or > HISTORY: Pain of joint of knee COMPARISON: None. TECHNIQUE: 3 views Left knee FINDINGS: Bones: No acute or aggressive appearing bony lesion. There is no acute fracture. Joints: Mild to moderate tricompartmental osteoarthritis, characterized by marginal osteophyte and joint space narrowing. There is chondrocalcinosis. Soft tissues: Unremarkable. IMPRESSION: Afhi-gt-iootoexl osteoarthritis as described above. Chondrocalcinosis. No acute fracture or dislocation. Electronically authenticated by: CHUCK JONES Date: 2022-11-05 11:19 Normal [facility] US CAROTID ART BILon 023 US CAROTID ART LEOBARDO EXAMINATION: US CAROTID ART LEOBARDO HISTORY: Cardiovascular symptoms ; abnormal right eye exam COMPARISON: No relevant comparison available. TECHNIQUE: Duplex Doppler ultrasound analysis of carotid and vertebral arteries. . Bilateral carotid arterial duplex examination was performed using B-mode, color flow and spectral analysis. Carotid stenosis is reported according to validated velocity parameters, similar to NASCET criteria. FINDINGS: RIGHT CAROTID ARTERY: Atherosclerotic plaque causing moderate narrowing of right bulb, up to 73% area reduction. RIGHT VERTEBRAL: Antegrade flow. Subclavian: PSV: 82.0 cm/s EDV: 0.0 cm/s CCA: Prox: PSV: 88.5 cm/s EDV: 14.2 cm/s Mid: PSV: 78.1 cm/s EDV: 11.6 cm/s Distal: PSV: 55.9 cm/s EDV: 12.9 cm/s BULB: PSV: 79.4 cm/s EDV: 15.5 cm/s ICA: Prox: PSV: 57.2 cm/s EDV: 10.3 cm/s Mid: PSV: 53.3 cm/s EDV: 14.2 cm/s Distal: PSV: 69.0 cm/s EDV: 19.4 cm/s ECA: PSV: 197.9 cm/s EDV: 0.0 cm/s VERTEBRAL: PSV: 25.8 cm/s EDV: 5.8 cm/s ICA/CCA ratio: PSV: 1.4 EDV: 1.2 LEFT CAROTID ARTERY: Atherosclerotic plaque causing moderate narrowing of left bulb, up to 61% area reduction. LEFT VERTEBRAL: Antegrade flow. Subclavian: PSV: 95.6 cm/s EDV: 0.0 cm/s CCA: Prox: PSV: 90.8 cm/s EDV: 11.6 cm/s Mid: PSV: 58.4 cm/s EDV: 10.0 cm/s Distal: PSV: 63.3 cm/s EDV: 14.9 cm/s BULB: PSV: 84.3 cm/s EDV: 18.1 cm/s ICA: Prox: PSV: 64.9 cm/s EDV: 13.2 cm/s Mid: PSV: 66.5 cm/s EDV: 16.5 cm/s Distal: PSV: 96.7 cm/s EDV: 25.7 cm/s ECA: PSV: 127.4 cm/s EDV: 11.1 cm/s VERTEBRAL: PSV: 34.5 cm/s EDV: 9.8 cm/s ICA/CCA ratio: PSV: 1.5 EDV: 1.7 IMPRESSION: 1. Moderate atherosclerotic disease resulting in narrowing of the carotid bulbs bilaterally with up to 73% area reduction on right and 61% area reduction on left. These measurements may be slightly overestimated. 2. Flow velocity and waveform are normal indicating 0-49% flow stenosis bilaterally. Spectral Doppler US Thresholds Stenosis (%) PSV (cm/sec) VICA/VCCA 0-49 <150 <2.5 50-69 150-225 2.5-4.0 >70 >225 >4.0 Electronically authenticated by: JONAS MCLEOD Date: 2022-09-26 10:58 Normal [facility] CBC AUTO DIFFon 08-10-2022 BASO # 0.0 103/ul Normal 0.0-0.1 [facility] Comment on above: Performed By: #### C BC #### [facility] [address] [place] [address] [address] Alexis Brink Basophils/100 WBC (Bld) 0.7 % Normal 0.2-2.0 [facility] Comment on above: Performed By: #### C BC #### [facility] [address] [place] [address] Dr. Alexis Brink EO # 0.3 103/ul Normal 0.0-0.7 [facility] Comment on above: Performed By: #### C BC #### [facility] [address] [place] [address] Dr. Alexis Brink Eosinophils/100 WBC (Bld) 6.1 % Normal 0.9-7.0 [facility] Comment on above: Performed By: #### C BC #### [facility] [address] [place] [address] Dr. Alexis Brink Erythrocyte distribution width (RBC) [Ratio] 12.1 % Normal 11.0-15.0 [facility] Comment on above: Performed By: #### C BC #### [facility] [address] [place] [address] Dr. Alexis Brink Hematocrit (Bld) [Volume fraction] 44.2 % Normal 42.0-54.0 [facility] Comment on above: Performed By: #### C BC #### [facility] [address] [place] [address] Dr. Alexis Brink Hemoglobin (Bld) [Mass/Vol] 14.9 g/dL Normal 14.0-18.0 [facility] Comment on above: Performed By: #### C BC #### [facility] [address] [place] [address] Dr. Alexis Brink IG # 0.01 10e3/ul Normal 0.00-0.03 [facility] Comment on above: Performed By: #### C BC #### [facility] [address] [place] [address] Dr. Alexis Brink IG % 0.2 % Normal 0.0-0.5 [facility] Comment on above: Performed By: #### C BC #### [facility] [address] [place] [address] Dr. Alexis Brink LYMPH # 1.2 103/ul Normal 1.2-3.8 [facility] Comment on above: Performed By: #### C BC #### [facility] [address] [place] [address] Dr. Alexis Brink Lymphocytes/100 WBC (Bld) 21.3 % Normal 20.5-60.0 [facility] Comment on above: Performed By: #### C BC #### [facility] [address] [place] [address] Dr. Alexis Brink MANUAL DIFF REQ NO Normal [facility] Comment on above: Performed By: #### C BC #### [facility] [address] [place] [address] Dr. Alexis Brink MCH (RBC) [Entitic mass] 30.7 pg Normal 25.9-34.0 [facility] Comment on above: Performed By: #### C BC #### [facility] [address] [place] [address] Dr. Alexis Brink MCHC (RBC) [Mass/Vol] 33.7 g/dL Normal 29.9-35.2 [facility] Comment on above: Performed By: #### C BC #### [facility] [address] [place] [address] Dr. Alexis Brink MCV (RBC) [Entitic vol] 91.1 fL Normal 80.0-94.0 [facility] Comment on above: Performed By: #### C BC #### [facility] [address] [place] [address] Dr. Alexis Brink MONO # 0.5 103/ul Normal 0.3-0.8 [facility] Comment on above: Performed By: #### C BC #### [facility] [address] [place] [address] Dr. Alexis Brink Monocytes/100 WBC (Bld) 8.5 % Normal 1.7-12.0 [facility] Comment on above: Performed By: #### C BC #### [facility] [address] [place] [address] Dr. Alexis Brink NEUT # 3.5 103/ul Normal 1.4-6.5 [facility] Comment on above: Performed By: #### C BC #### [facility] [address] [place] [address] Dr. Alexis Brink Neutrophils/100 WBC (Bld) 63.2 % Normal 43.0-75.0 [facility] Comment on above: Performed By: #### C BC #### [facility] [address] [place] [address] Dr. Alexis Brink Platelet mean volume (Bld) [Entitic vol] 10.0 fL Normal 9.5-13.5 [facility] Comment on above: Performed By: #### C BC #### [facility] [address] [place] [address] Dr. Alexis Brink PLT 120 103/ul Critically low 150-450 [facility] Comment on above: Performed By: #### C BC #### [facility] [address] [place] [address] Dr. Alexis Brink RBC 4.85 106/ul Normal 4.70-6.10 [facility] Comment on above: Performed By: #### C BC #### [facility] [address] [place] [address] Dr. Alexis Brink WBC 5.6 103/ul Normal 4.0-11.0 [facility] Comment on above: Performed By: #### C BC #### [facility] [address] [place] [address] Dr. Alexis Brink [facility] SARS-CoV-2 (COVID-19) RNA RICKY+probe Ql (Unsp spec) Not detected Normal NOT DETECTED [facility] Comment on above: Result Comment: This test is not yet approved or cleared by the [place] FDA. When there are no FDA-approved or cleared tests available, and other criteria are met, FDA can make tests available under an emergency access mechanism called an Emergency Use Authorization (EUA). The EUA for this test is supported by the [place] of Health and Human Service's (HHS's) declaration that circumstances exist to justify the emergency use of in vitro diagnostics for the detection and/or diagnosis of the virus that causes COVID-19. This EUA will remain in effect (meaning this test can be used) for the duration of the COVID-19 declaration justifying emergency of IVDs, unless it is terminated or revoked by FDA (after which the test may no longer be used). When diagnostic testing is negative, the possibility of a false negative should be considered in the context of a patient's recent exposures and the presence of clinical signs and symptoms consistent with SARS-CoV-2. Performed By: #### C VDTBH ####[facility] [address] [place], [place] [address]DrLainey Brink INFLUENZA A AND B AGon 08-10 INFLUANEGH SEE BELOW Normal [facility] Comment on above: Result Comment: Nega tive for Flu A protein angiten. Infection due to Flu A cannot be ruled out. Flu A angiten in the sample may be below the detection limit of the test. Performed By: #### I NFLUAB ####[place] [address]Dr. Alexis Brink INFLUBNEGH SEE BELOW Normal [facility] Comment on above: Result Comment: Nega tive for Flu B protein antigen. Infection due to Flu B cannot be ruled out. Flu B antigen in the sample may be below the detection limit of the test. Performed By: #### I NFLUAB ####[facility] [address] [place], [place] [address]Dr. Alexis Brink INFLUENZA A AG Negative Normal NEGATIVE SEE COMMENT [facility] Comment on above: Performed By: #### I NFLUAB ####[facility] [address] [place], [place] [address]Dr. Alexis Brink INFLUENZA B AG Negative Normal NEGATIVE SEE COMMENT [facility] Comment on above: Performed By: #### I NFLUAB ####[facility] [address] [place], [place] [address]DrLainey Brink INTERNAL CONTROLS Within Normal Limits Normal Wi thin Normal Limits [facility] Comment on above: Performed By: #### I NFLUAB ####[facility] [address] [place], [place] [address]DrLainey Brink PROF CHEM 8 (BAS METB)on Anion gap [Moles/Vol] 11.4 mmol/L Normal [facility] Comment on above: Performed By: #### B NARA, HSTROPN #### [facility] [address] [place] [address] Dr. Alexis Brink Calcium [Mass/Vol] 8.9 mg/dL Normal 8.5-10.1 [facility] Comment on above: Performed By: #### B NARA, HSTROPN #### [facility] [address] [place] [address] [address] Alexis Brink Chloride [Moles/Vol] 102 mmol/L Normal 98-107 [facility] Comment on above: Performed By: #### B NARA, HSTROPN #### [facility] [address] [place] [address] Dr. Alexis Brink CO2 [Moles/Vol] 28.8 mmol/L Normal 21.0-32.0 [facility] Comment on above: Performed By: #### B NARA, HSTROPN #### [facility] [address] [place] [address] Dr. Alexis Brink Creatinine [Mass/Vol] 1.35 mg/dL Critically high 0.70-1.30 [facility] Comment on above: Performed By: #### B NARA, HSTROPN #### [facility] [address] [place] [address] Dr. Alexis Brink EGFR-AF MAURITANIAN >60 Normal >=60 [facility] Comment on above: Performed By: #### B NARA, HSTROPN #### [facility] [address] [place] [address] Dr. Alexis Brink EGFR-NON AF MAURITANIAN 51 mL/min/1.73m2 Critically low >=60 [facility] Comment on above: Performed By: #### B NARA, HSTROPN #### [facility] [address] [place] [address] Dr. Alexis Brink Glucose [Mass/Vol] 109 mg/dL Critically high 74-106 T [facility] Comment on above: Performed By: #### B NARA, HSTROPN #### [facility] [address] [address] [address] Alexis Brink Potassium [Moles/Vol] 4.2 mmol/L Normal 3.5-5.1 [facility] Comment on above: Performed By: #### B MP, HSTROPN #### [facility] [address] [address] [address] Alexis Brink Sodium [Moles/Vol] 138 mmol/L Normal 136-145 [facility] Comment on above: Performed By: #### B MP, HSTROPN #### [facility] [address] [address] [address] Alexis Brink Urea nitrogen [Mass/Vol] 18.0 mg/dL Normal 7.0-18.0 [facility] Comment on above: Performed By: #### B NARA, HSTROPN #### [facility] [address] [address] [address] Alexis Brink Urea nitrogen/Creatinin e [Mass ratio] 13.3 mg/mg Normal [facility] Comment on above: Performed By: #### B MP, HSTROPN #### [facility] [address] [address] [address] Alexis Brink TROPONIN, HIGH SENSITIVITYon 08-10-2022 HSTROP 22.2 pg/mL Normal 4.0-76.1 [facility] Comment on above: Result Comment: CUT- OFF POINTS HAVE BEEN ESTABLISHED BASED ON THE FOURTH UNIVERSAL DEFINITIONS OF MYOCARDIAL INFARCTION. THE UPPER REFERENCE LIMIT (URL) OF TROPONIN, DEFINED THE 99TH PERCENTILE OF cTnI DISTRIBUTION IN A REFERENCE POPULATION, HAS BEEN CONFIRMED THE DECISION THRESHOLD FOR CT DIAGNOSIS. Performed By: #### B MP, HSTROPN #### [facility] [address] [address] [address] Alexis Brink XR CHEST 1 Von 08-10-2022 XR CHEST 1 V EXAM: XR CHEST 1 V HISTORY: COUGH COMPARISON: Chest radiograph dated 12/06/2021. TECHNIQUE: AP erect portable view of the chest performed. FINDINGS: The trachea is midline. There is magnification of the cardiac silhouette. The mediastinal and hilar shadows are within normal limits. There is no consolidation or infiltrate. There is no pleural effusion or pulmonary vascular congestion. There is a stable calcified granuloma laterally within the right mid chest. There is no pneumothorax. The bony structures are osteopenic. There is no acute osseous abnormality. IMPRESSION: There is no acute cardiopulmonary process. Electronically authenticated by: RADHA UNDERWOOD Date: 2022-08-10 16:07 Normal [facility] CBC AUTO DIFFon 02-09-2022 BASO # 0.0 103/ul Normal 0.0-0.1 [facility] Comment on above: Performed By: #### C BC #### [facility] [address] [address] [address] Alexis Brikn Basophils/100 WBC (Bld) 0.6 % Normal 0.2-2.0 [facility] Comment on above: Performed By: #### C BC #### [facility] [address] [place] [address] Dr. Alexis Brink EO # 0.5 103/ul Normal 0.0-0.7 [facility] Comment on above: Performed By: #### C BC #### [facility] [address] [address] [address] Alexis Brink Eosinophils/100 WBC (Bld) 7.2 % Critically high 0.9-7.0 [facility] Comment on above: Performed By: #### C BC #### [facility] [address] [place] [address] Dr. Alexis Brink Erythrocyte distribution width (RBC) [Ratio] 12.4 % Normal 11.0-15.0 [facility] Comment on above: Performed By: #### C BC #### [facility] [address] [place] [address] Dr. Alexis Brink Hematocrit (Bld) [Volume fraction] 45.5 % Normal 42.0-54.0 [facility] Comment on above: Performed By: #### C BC #### [facility] [address] [place] [address] Dr. Alexis Brink Hemoglobin (Bld) [Mass/Vol] 15.4 g/dL Normal 14.0-18.0 [facility] Comment on above: Performed By: #### C BC #### [facility] [address] [address] [address] Alexis Brink IG # 0.02 10e3/ul Normal 0.00-0.03 [facility] Comment on above: Performed By: #### C BC #### [facility] [address] [place] [address] [address] Alexis Brink IG % 0.3 % Normal 0.0-0.5 [facility] Comment on above: Performed By: #### C BC #### [facility] [address] [place] [address] Dr. Alexis Brink LYMPH # 1.3 103/ul Normal 1.2-3.8 [facility] Comment on above: Performed By: #### C BC #### [facility] [address] [place] [address] Dr. Alexis Brink Lymphocytes/100 WBC (Bld) 17.8 % Critically low 20.5-60.0 [facility] Comment on above: Performed By: #### C BC #### [facility] [address] [place] [address] Dr. Alexis Brink MANUAL DIFF REQ NO Normal [facility] Comment on above: Performed By: #### C BC #### [facility] [address] [place] [address] Dr. Alexis Brink MCH (RBC) [Entitic mass] 31.4 pg Normal 25.9-34.0 [facility] Comment on above: Performed By: #### C BC #### [facility] [address] [place] [address] Dr. Alexis Brink MCHC (RBC) [Mass/Vol] 33.8 g/dL Normal 29.9-35.2 [facility] Comment on above: Performed By: #### C BC #### [facility] [address] [place] [address] Dr. Alexis Brink MCV (RBC) [Entitic vol] 92.9 fL Normal 80.0-94.0 [facility] Comment on above: Performed By: #### C BC #### [facility] [address] [place] [address] Dr. Alexis Brink MONO # 0.7 103/ul Normal 0.3-0.8 [facility] Comment on above: Performed By: #### C BC #### [facility] [address] [place] [address] Dr. Alexis Brink Monocytes/100 WBC (Bld) 9.6 % Normal 1.7-12.0 [facility] Comment on above: Performed By: #### C BC #### [facility] [address] [place] [address] Dr. Alexis Brink NEUT # 4.6 103/ul Normal 1.4-6.5 [facility] Comment on above: Performed By: #### C BC #### [facility] [address] [place] [address] Dr. Alexis Brink Neutrophils/100 WBC (Bld) 64.5 % Normal 43.0-75.0 [facility] Comment on above: Performed By: #### C BC #### [facility] [address] [place] [address] Dr. Alexis Brink Platelet mean volume (Bld) [Entitic vol] 10.7 fL Normal 9.5-13.5 [facility] Comment on above: Performed By: #### C BC #### [facility] [address] [place] [address] Dr. Alexis Brink PLT 130 103/ul Critically low 150-450 [facility] Comment on above: Performed By: #### C BC #### [facility] [address] [place] [address] Dr. Alexis Brink RBC 4.90 106/ul Normal 4.70-6.10 [facility] Comment on above: Performed By: #### C BC #### [facility] [address] [place] [address] Dr. Alexis Brink WBC 7.1 103/ul Normal 4.0-11.0 [facility] Comment on above: Performed By: #### C BC #### [facility] [address] [place] [address] Dr. Alexis Brink DIRECT LDLon 02-09-2022 Cholesterol in LDL [Mass/Vol] 144 mg/dL Normal [facility] Comment on above: Performed By: #### D LDL, BMP ####[facility] [address] [place], [place] [address]FlDr. Alexis Brink DLDL NORMAL SEE BELOW Normal [facility] Comment on above: Result Comment: <100 mg/dl OPTIMAL 100 - 129 mg/dl NEAR OR ABOVE OPTIMAL 130 - 159 mg/dl BORDERLINE HIGH 160 - 189 mg/dl HIGH >190 mg/dl VERY HIGH Performed By: #### D LDL, BMP ####[facility] [address] [place], [place] [address]QdDr. Alexis Brink PROF CHEM 8 (BAS METB)on Anion gap [Moles/Vol] 9.3 mmol/L Normal [facility] Comment on above: Performed By: #### D LDL, BMP #### [facility] [address] [address] [address] Alexis Brink Calcium [Mass/Vol] 8.7 mg/dL Normal 8.5-10.1 [facility] Comment on above: Performed By: #### D LDL, BMP #### [facility] [address] [address] [address] Alexis Brink Chloride [Moles/Vol] 103 mmol/L Normal 98-107 [facility] Comment on above: Performed By: #### D LDL, BMP #### [facility] [address] [address] [address] Alexis Brink CO2 [Moles/Vol] 32.1 mmol/L Critically high 21.0-32.0 [facility] Comment on above: Performed By: #### D LDL, BMP #### [facility] [address] [address] [address] Alexis Brink Creatinine [Mass/Vol] 1.35 mg/dL Critically high 0.70-1.30 [facility] Comment on above: Performed By: #### D LDL, BMP #### [facility] [address] [address] [address] Alexis Brink EGFR-AF MAURITANIAN >60 Normal >=60 [facility] Comment on above: Performed By: #### D LDL, BMP #### [facility] [address] [address] [address] Alexis Brink EGFR-NON AF MAURITANIAN 51 mL/min/1.73m2 Critically low >=60 [facility] Comment on above: Performed By: #### D LDL, BMP #### [facility] [address] [address] [address] Alexis Brink Glucose [Mass/Vol] 90 mg/dL Normal 74-106 [facility] Comment on above: Performed By: #### D LDL, BMP #### [facility] [address] [address] [address] Alexis Brink Potassium [Moles/Vol] 4.4 mmol/L Normal 3.5-5.1 [facility] Comment on above: Performed By: #### D LDL, BMP #### [facility] [address] [address] [address] Alexis Brink Sodium [Moles/Vol] 140 mmol/L Normal 136-145 [facility] Comment on above: Performed By: #### D LDL, BMP #### [facility] [address] [address] [address] Alexis Brink Urea nitrogen [Mass/Vol] 16.0 mg/dL Normal 7.0-18.0 [facility] Comment on above: Performed By: #### D LDL, BMP #### [facility] [address] [address] [address] Alexis Brink Urea nitrogen/Creatinin e [Mass ratio] 11.9 mg/mg Normal [facility] Comment on above: Performed By: #### D LDL, BMP #### [facility] [address] [address] [address] Alexis Brink UA RANDOMon 02-09-2022 Bilirubin Ql (U) Negative Normal NEGATIVE [facility] Comment on above: Performed By: #### U A #### [facility] [address] [address] [address] Alexis Brink Clarity (U) CLEAR Normal CLEAR [facility] Comment on above: Performed By: #### U A #### [facility] [address] [address] [address] Alexis Brink Color (U) YELLOW Normal YELLOW [facility] Comment on above: Performed By: #### U A #### [facility] [address] [place] [address] Dr. Alexis Brink Glucose Ql (U) Negative Normal NEGATIVE [facility] Comment on above: Performed By: #### U A #### [facility] [address] [place] [address] Dr. Alexis Brink Hemoglobin Ql (U) Negative Normal NEGATIVE [facility] Comment on above: Performed By: #### U A #### [facility] [address] [place] [address] Dr. Alexis Brink Ketones Ql (U) Negative Normal NEGATIVE [facility] Comment on above: Performed By: #### U A #### [facility] [address] [place] [address] Dr. Alexis Brink LEUKOCYTES Negative Normal NEGATIVE [facility] Comment on above: Performed By: #### U A #### [facility] [address] [place] [address] Dr. Alexis Brink Nitrite Ql (U) Negative Normal NEGATIVE [facility] Comment on above: Performed By: #### U A #### [facility] [address] [place] [address] Dr. Alexis Brink pH (U) 7.0 [pH] Normal 5-9 [facility] Comment on above: Performed By: #### U A #### [facility] [address] [place] [address] Dr. Alexis Brink SPEC GRAVITY 1.015 Normal 1.005-<=1.025 [facility] Comment on above: Performed By: #### U A #### [facility] [address] [place] [address] Dr. Alexis Brink UA PROTEIN Negative Normal NEGATIVE/ TRACE [facility] Comment on above: Performed By: #### U A #### [facility] [address] [place] [address] Dr. Alexis Brink Urobilinogen Qn (U) 1.0 {Kay'U}/dL Normal 0.2 - 1.0 [facility] Comment on above: Performed By: #### U A #### [facility] [id number] Alexis Brink XR CHEST 2 Von 12-06-2021 XR CHEST 2 V EXAM: CHEST 2 VIEWS HISTORY: Pneumonitis due to inhaled substance TECHNIQUE: PA and lateral views chest. COMPARISON: None. FINDINGS: There is mild peribronchial cuffing. The lungs are clear. There is no focal lung consolidation, pleural effusion or pneumothorax. Pulmonary vasculature is within normal limits. There is aortic atherosclerosis and mildly tortuous thoracic aorta with normal heart size. There is a small hiatal hernia. IMPRESSION: 1. Mild nonspecific bronchial inflammation/bronchiti s. Lungs clear without consolidation or effusion. Electronically authenticated by: LYDIA HAWLEY Date: 2021-12-06 15:42 Normal [facility] Nonvisit Note - PTon 018 Nonvisit Note - PT Cert letter refaxed for signature this date - third and final attempt. Normal [facility] Nonvisit Note - PTon 018 Nonvisit Note - PT Cert letter refaxed to Dr Gooden's office. Second attempt. Normal [facility] Coding Summary.on 01-25-2018 Coding Summary. CODING DATE: 01/25/2018 FINAL [facility] STATUS: PAYOR: Medicare ADMIT DX: REASON FOR VISIT DX: Z47.1 Aftercare following joint replacement surgery FINAL DX: PRINCIPAL: Z47.1 Aftercare following joint replacement surgery SECONDARY: Z96.641 Presence of right artificial hip joint M25.551 Pain in right hip R26.2 Difficulty in walking, not elsewhere classified PROCEDURES DOCTOR NAME DATE NOTE: The code number assigned matches the documented diagnosis and / or procedure in the patient's chart. However, the narrative phrase printed from the coding software may appear abbreviated, or result in slightly different terminology. Coded By: Dominique Pendleton Date Saved: 01/25/2018 10:54 am Normal [facility] Coding Summary. CODING DATE: 01/25/2018 FINAL [facility] STATUS: PAYOR: Medicare ADMIT DX: REASON FOR VISIT DX: Z47.1 Aftercare following joint replacement surgery FINAL DX: PRINCIPAL: Z47.1 Aftercare following joint replacement surgery SECONDARY: Z96.641 Presence of right artificial hip joint M25.552 Pain in left hip R26.2 Difficulty in walking, not elsewhere classified PROCEDURES DOCTOR NAME DATE NOTE: The code number assigned matches the documented diagnosis and / or procedure in the patient's chart. However, the narrative phrase printed from the coding software may appear abbreviated, or result in slightly different terminology. Coded By: Dominique Pendleton Date Saved: 01/25/2018 10:54 am [facility] SURGICAL PATHOLOGYon 05-15-2 018 SURGICAL PATHOLOGY [facility] [id number] Physician: BETH GOODEN MD FINAL DIAGNOSISRight hip, arthroplasty - Severe degenerative joint disease.JDR/kr 01/07/2018 Layton Díaz M.D.(Electronic Signature) SPECIMEN SUBMITTEDA: RIGHT HIP BONE AND SOFT TISSUE CLINICAL DATAOSTEOARTHRITIS OF RIGHT HIP [M16.11]GROSS DESCRIPTIONA. Received in formalin designated bone, soft tissue right hip is afemoral head with portion of neck measuring approximately 5 x 4.8 x 4.7 cm.Examination of the articular surface reveals eburnation and cartilageroughening. Osteophyte formation is present. The attached soft tissue isgrossly unremarkable. The specimen is sectioned revealing a focal area ofhypopigmentation underlying the area of eburnation. Also received in thesame container are multiple segments of bone shave and hemorrhagic materialand soft tissue aggregating to 8.5 x 8.5 x 1.8 cm. [employer]ist sectionsare submitted as follows: A1 soft tissue, A2 bone submitted afterdecalcification.B F/billz 01/01/2018 Gross examination performed at [facility], [address] [place], [place] [id number] of Report: 01/07/2018Date of Procedure: 01/01/2018Date of Receipt: 01/01/2018Submitted by: BETH GOODEN MDLocation: [id number] interpretation performed at [facility], [address] [place], [place] [id number]. Normal [facility] Comment on above: Performed By: #### S ####See report for performing lab information. Vital Signs Date Time Vital Sign Value Performing Clinician Facility 09-11-2023 10:45-0500 Body height 167.64 cm [facility] Other [employer] Other 09-11-2023 10:45-0500 Body mass index (BMI) [Ratio] 29.86 kg/m2 [facility] Other [facility] Other 09-11-2023 10:45-0500 Body temperature 97.5 [degF] [facility] Other [facility] Other 09-11-2023 10:45-0500 Body weight 83.92 kg [facility] Other [facility] Other 09-11-2023 10:45-0500 Diastolic blood pressure 81 mm[Hg] [facility] Other [facility] Other 09-11-2023 10:45-0500 Respiratory rate 20 /min [facility] Other [facility] Other 09-11-2023 10:45-0500 SaO2% (BldA) [Mass fraction] 98 % [facility] Other [facility] Other 09-11-2023 10:45-0500 Systolic blood pressure 161 mm[Hg] Cecilio [place] Other [facility] Other 08-01-2023 10:15-0500 Body height 167.64 cm Cecilio [place] Other [facility] Other 08-01-2023 10:15-0500 Body mass index (BMI) [Ratio] 29.86 kg/m2 Cecilio [place] Other [facility] Other 08-01-2023 10:15-0500 Body weight 83.92 kg Cecilio [place] Other [facility] [facility] Other 08-01-2023 10:15-0500 Diastolic blood pressure 79 mm[Hg] Cecilio [place] Other [facility] Other 08-01-2023 10:15-0500 Respiratory rate 20 /min Cecilio [place] Other [facility] Other 08-01-2023 10:15-0500 Systolic blood pressure 172 mm[Hg] Cecilio [place] Other [facility] Other 07-17-2023 10:15-0500 Body height 167.64 cm Cecilio [place] Other [facility] Other 07-17-2023 10:15-0500 Body mass index (BMI) [Ratio] 29.89 kg/m2 [facility] [place] Other [facility] Consulting Other 07-17-2023 10:15-0500 Body weight 84.01 kg Cecilio Ball Other [employer] Other 07-17-2023 10:15-0500 Diastolic blood pressure 78 mm[Hg] Cecilio Ball Other [employer] Other 07-17-2023 10:15-0500 Respiratory rate 20 /min Cecilio Ball Other [employer] Other 07-17-2023 10:15-0500 Systolic blood pressure 172 mm[Hg] Cecilio Ball Other [employer] Other 07-10-2023 14:45-0500 Body height 167.64 cm Cecilio Ball Other [employer] Other 07-10-2023 14:45-0500 Body mass index (BMI) [Ratio] 29.47 kg/m2 Cecilio Ball Other [employer] Other 07-10-2023 14:45-0500 Body weight 82.83 kg Cecilio Ball Other [employer] Other 07-10-2023 14:45-0500 Diastolic blood pressure 80 mm[Hg] Cecilio Ball Other [employer] Other 07-10-2023 14:45-0500 Respiratory rate 20 /min Cecilio Ball Other [employer] Other 07-10-2023 14:45-0500 Systolic blood pressure 150 mm[Hg] Cecilio Ball Other [employer] Other 06-20-2023 08:30-0400 Body height 167.64 cm Cecilio Ball Other [employer] Other 06-20-2023 08:30-0400 Body mass index (BMI) [Ratio] 29.6 kg/m2 Cecilio Ball Other [employer] Other 06-20-2023 08:30-0400 Body weight 83.19 kg Cecilio Ball Other [employer] Other 06-20-2023 08:30-0400 Diastolic blood pressure 76 mm[Hg] Cecilio Ball Other [employer] Other 06-20-2023 08:30-0400 Respiratory rate 20 /min Cecilio Ball Other [employer] Other 06-20-2023 08:30-0400 Systolic blood pressure 157 mm[Hg] Cecilio Ball Other [employer] Other 05-30-2023 13:45-0400 Body height 167.64 cm Cecilio Ball Other [employer] Other 05-30-2023 13:45-0400 Body mass index (BMI) [Ratio] 28.95 kg/m2 Cecilio Ball Other [employer] Other 05-30-2023 13:45-0400 Body weight 81.38 kg Cecilio Ball Other [employer] Other 05-30-2023 13:45-0400 Diastolic blood pressure 78 mm[Hg] Cecilio Ball Other [employer] Other 05-30-2023 13:45-0400 Respiratory rate 16 /min Cecilio Ball Other [employer] Other 05-30-2023 13:45-0400 Systolic blood pressure 158 mm[Hg] Cecilio Ball Other [employer] Other 02-14-2023 08:30-0400 Body height 167.64 cm Cecilio Ball Other [employer] Other 02-14-2023 08:30-0400 Body mass index (BMI) [Ratio] 28.57 kg/m2 Cecilio Ball Other [employer] Other 02-14-2023 08:30-0400 Body weight 80.29 kg Cecilio Ball Other [employer] Other 02-14-2023 08:30-0400 Diastolic blood pressure 80 mm[Hg] Cecilio Ball Other [employer] Other 02-14-2023 08:30-0400 Respiratory rate 16 /min Cecilio Ball Other [employer] Other 02-14-2023 08:30-0400 Systolic blood pressure 135 mm[Hg] Cecilio Ball Other [employer] Other 02-01-2023 08:15-0400 Body height 167.64 cm Jose Enrique Rochester II Other [employer] Other 02-01-2023 08:15-0400 Body mass index (BMI) [Ratio] 27.44 kg/m2 Jose Enrique Rochester II Other [employer] Other 02-01-2023 08:15-0400 Body weight 77.11 kg Jose Enrique Rochester II Other [employer] Other 12-11-2022 10:30-0400 Body height 167.64 cm Cecilio Ball Other [employer] Other 12-11-2022 10:30-0400 Body mass index (BMI) [Ratio] 28.66 kg/m2 Cecilio Ball Other [employer] Other 12-11-2022 10:30-0400 Body weight 80.56 kg Cecilio Ball Other [employer] Other 04-24-2023 10:30-0400 Diastolic blood pressure 76 mm[Hg] Cecilio Ball Other [employer] Other 12-11-2022 10:30-0400 Respiratory rate 12 /min Cecilio Ball Other [employer] Other 12-11-2022 10:30-0400 Systolic blood pressure 151 mm[Hg] Cecilio Ball Other [employer] Other 11-09-2022 16:00-0400 Body mass index (BMI) [Ratio] 29.21 kg/m2 Jose Enrique [employer] Other [employer] Other 11-09-2022 16:00-0400 Body weight 82.1 kg Jose Enrique C4M II Other [employer] Other 11-09-2022 10:30-0400 Body height 167.64 cm Cecilio Ball Other [employer] Other 11-09-2022 10:30-0400 Body mass index (BMI) [Ratio] 29.23 kg/m2 Cecilio Ball Other [employer] Other 11-09-2022 10:30-0400 Body weight 82.15 kg Cecilio Ball Other [employer] Other 11-09-2022 10:30-0400 Diastolic blood pressure 79 mm[Hg] Cecilio Ball Other [employer] Other 11-09-2022 10:30-0400 Respiratory rate 20 /min Cecilio Ball Other [employer] Other 11-09-2022 10:30-0400 Systolic blood pressure 152 mm[Hg] Cecilio Ball Other [employer] Other 10-12-2022 10:00-0500 Body height 167.64 cm Cecilio Benjamin Other [employer] Other 10-12-2022 10:00-0500 Body mass index (BMI) [Ratio] 29.24 kg/m2 Cecilio Ball Other [employer] Other 10-12-2022 10:00-0500 Body weight 82.19 kg Cecilio Ball Other [employer] Other 10-12-2022 10:00-0500 Diastolic blood pressure 70 mm[Hg] Cecilio Ball Other [employer] Other 10-12-2022 10:00-0500 Respiratory rate 12 /min Cecilio Benjamin Other [employer] Other 10-12-2022 10:00-0500 Systolic blood pressure 102 mm[Hg] Cecilio Benjamin Other [employer] Other Encounters Encounter Date Encounter Type Care Provider Facility Start: 09-21-2023 End: 09-21-2023 ambulatory Cecilio Benjamin Other [employer] Other Start: 09-21-2023 Telephone encounter Cecilio Benjamin [facility] Start: 09-11-2023 End: 09-11-2023 ambulatory Cecilio Ball Other [employer] Other Start: 09-11-2023 Office outpatient vi sit 15 minutes Cecilio Ball [facility] Start: 09-11-2023 Telephone encounter Cecilio Ball [facility] Start: 09-03-2023 End: 09-03-2023 ambulatory Cecilio Ball Other [employer] Other Start: 09-03-2023 Telephone encounter Cecilio Ball [facility] Start: 08-03-2023 End: 08-03-2023 ambulatory Cecilio Ball Other [employer] Other Start: 08-03-2023 Telephone encounter Cecilio Ball [facility] Start: 08-01-2023 End: 08-01-2023 ambulatory Cecilio Ball Other [employer] Other Start: 08-01-2023 Office outpatient vi sit 15 minutes Cecilio Ball [facility] Start: 07-17-2023 End: 07-17-2023 ambulatory Cecilio Ball Other [employer] Other Start: 07-17-2023 Office outpatient vi sit 15 minutes Cecilio Ball [facility] Start: 07-10-2023 End: 07-10-2023 ambulatory Cecilio Ball Other [employer] Other Start: 07-10-2023 Office outpatient vi sit 15 minutes Cecilio Ball [facility] Start: 06-20-2023 End: 06-20-2023 ambulatory Cecilio Ball Other [employer] Other Start: 06-20-2023 Office outpatient vi sit 25 minutes Cecilio Ball [facility] Start: 06-15-2023 End: 06-15-2023 ambulatory Cecilio Ball Other [employer] Other Start: 06-15-2023 Telephone encounter Cecilio Ball [facility] Start: 05-30-2023 End: 05-30-2023 ambulatory Cecilio Ball Other [employer] Other Start: 05-30-2023 Office outpatient vi sit 15 minutes Cecilio Ball [facility] Start: 03-20-2023 Telephone encounter David Jaeger DO Work Phone: [facility] [place] Comment on above: Follow Up Phone Call Start: 03-15-2023 End: 03-15-2023 ambulatory DAVID JAEGER Facility:[facility] Start: 02-27-2023 Orders Only David Marcos DO Work Phone: Procedures Comment on above: Pseudoclaudication s yndrome (Primary Dx); Lumbar radiculopathy Start: 02-26-2023 Telephone encounter David Sis Jaeger DO Work Phone: [facility] [place] Comment on above: Procedure Start: 02-19-2023 Telephone encounter David Sis Faheem DO Work Phone: [facility] [place] Comment on above: Appointment Start: 02-14-2023 End: 02-14-2023 ambulatory Cecilio Benjamin Other [employer] Other Start: 02-14-2023 Patient encounter procedure Cecilio Benjamin [facility] Start: 02-13-2023 End: 02-13-2023 ambulatory Cecilio Benjamin Other [employer] Other Start: 02-13-2023 Telephone encounter Cecilio Benjamin [facility] Start: 02-08-2023 End: 02-08-2023 ambulatory Cecilio Benjamin Other [employer] Other Start: 02-08-2023 Telephone encounter Cecilio Benjamin [facility] Start: 02-01-2023 End: 02-01-2023 ambulatory Jose Enrique Leblanc II Other [employer] Other Start: 02-01-2023 Office outpatient vi sit 25 minutes Jose Enrique [facility] Start: 12-11-2022 End: 12-11-2022 ambulatory Cecilio Benjamin Other [employer] Other Start: 12-11-2022 Office outpatient vi sit 15 minutes Cecilio Benjamin [facility] Start: 11-09-2022 End: 11-09-2022 ambulatory Jose Enrique Leblanc II Facility:[facility] Start: 11-09-2022 End: 11-09-2022 Patient encounter procedure MD Jose Enrique Leblanc II Work Phone: [facility] Start: 11-09-2022 End: 11-09-2022 ambulatory MD Jose Enrique Leblanc II Work Phone: [facility] Work Phone: Start: 11-09-2022 Office outpatient ne w 45 minutes Jose Enrique Leblanc II [facility] Start: 11-09-2022 Office outpatient vi sit 15 minutes Cecilio Benjamin [facility] Start: 11-05-2022 End: 11-05-[address] CECILIO BENJAMIN Facility:[facility] Start: 10-12-2022 End: 10-12-2022 ambulatory Cecilio Benjamin Other [employer] Other Start: 10-12-2022 Office outpatient vi sit 25 minutes Cecilio Benjamin [facility] Start: 09-27-2022 End: 09-27-2022 ambulatory Cecilio Benjamin Other [employer] Other Start: 09-27-2022 Telephone encounter Cecilio DENISE [facility] Start: 09-26-2022 End: 09-27-[address] CECILIO BENJAMIN Facility:[facility] Start: 08-25-2022 End: 08-25-2022 ambulatory Cecilio Benjamin Other [employer] Other Start: 08-25-2022 Telephone encounter Cecilio DENISE [facility] Start: 08-10-2022 End: 08-10-[address] CECILIO BENJAMIN Facility:[facility] Start: 02-09-2022 End: 02-10-[address] CECILIO BENJAMIN Facility:[facility] Start: 12-06-2021 End: 12-07-[address] CECILIO BENJAMIN Facility:[facility] Start: 01-22-2018 End: 04-20-2018 Patient encounter [id number] AUGUSTINE BENJAMIN Facility:[facility] Procedures Date Procedure Procedure Detail Performing Clinician Start: 11-09-2022 Pelvis X-ray MD Jose Enrique Leblanc II Work Phone: Start: 11-09-2022 Radiologic examinati on of knee MD Jose Enrique Leblanc II Work Phone: Plan of Treatment Date Care Activity Detail Author Start: 04-20-2023 Influenza vaccination INFLUENZA (#1) [facility] Start: 10-01-2022 COVID-19 VACCINE (5 - Moderna series) COVID-19 VACCINE (5 - Moderna series) [facility] Start: 08-20-2022 ADVANCE DIRECTIVE DISCUSSION ADVANCE DIRECTIVE DISCUSSION [facility] Start: 08-20-2022 DEPRESSION ASSESSMENT DEPRESSION ASS ESSMENT [facility] Start: 09-19-2021 COVID-19 VACCINE (4 - Booster for Moderna series) COVID-19 VACCINE (4 - Booster for Moderna series) [facility] Start: 09-19-2021 COVID-19 VACCINE (4 - Moderna series) COVID-19 VACCINE (4 - Moderna series) [facility] Start: 01-02-2021 DIABETES SCREEN DIABETES SCREEN [facility] Start: 1991 SHINGRIX VACCINE (1 of 2) SHINGRIX VACCINE (1 of 2) [facility] Start: 1960 Urine microalbumin profile DTAP,TDAP,TD (1 - Tdap) [facility] Start: 1959 SPIROMETRY SPIROMETRY [facility] Start: 1947 PNEUMOCOCCAL: 65+ (1 - PCV) PNEUMOCOCCAL: 65+ (1 - PCV) [facility] SPINE INTERVENTION PROCEDURE SPINE INTERVENTION PROCEDURE Procedures Routine Spinal stenosis, lumbar region with neurogenic claudication Lumbar radiculopathy, chronic Ordered: 02/19/2023 [facility] Work Phone: Comment on above: Ordered: 02/[facility] Immunizations Immunization Date Immunization Notes Care Provider Coleman [email or web address] 05-30-2023 COVID-19 Vaccine Moderna - Documentation Purposes Only Cecilio Benjamin Other [employer] Other 05-30-2023 influenza, high dose seasonal, preservative-free Cecilio Benjamin Other [employer] Other 06-13-2022 influenza virus vaccine, split virus (incl. purified surface antigen) Cecilio Benjamin Other [employer] Other 06-13-2022 influenza, high dose seasonal, preservative-free Jose Enrique Landersisle II Other [employer] Other 05-31-2022 COVID-19 Pfizer (bivalent) Jose Enrique Rochester II Other [employer] Other 05-31-2022 COVID-19 Pfizer (Pediatric) Cecilio Benjamin Other [employer] Other 07-25-2021 COVID-19 Vaccine Moderna - Documentation Purposes Only Jose Enrique Rochester II Other [employer] Other 05-03-2021 zoster vaccine recombinant Jose Enrique Benji II Other [employer] Other 05-03-2021 zoster vaccine, live Benjami n Ball Other [employer] Other 01-28-2021 zoster vaccine recombinant Jose Enrique Rochester II Other [employer] Other 01-28-2021 zoster vaccine, live Benjami n Ball Other [employer] Other 10-25-2020 COVID-19 Vaccine Moderna - Documentation Purposes Only Jose Enrique Landersisle II Other [employer] Other 09-27-2020 COVID-19 Vaccine Moderna - Documentation Purposes Only Jose Enrique Rochester II Other [employer] Other 05-24-2020 influenza virus vaccine, split virus (incl. purified surface antigen) Cecilio Benjamin Other [employer] Other 01-03-2019 diphtheria, tetanus toxoids and acellular pertussis vaccine, unspecified formulation Cecilio Benjamin Other [employer] Other 12-25-2018 pneumococcal polysaccharide vaccine, 23 valent Jose Enrique Rochester II Other [employer] Other 04-30-2018 influenza virus vaccine, split virus (incl. purified surface antigen) Cecilio Benjamin Other [employer] Other 04-09-2017 influenza virus vaccine, split virus (incl. purified surface antigen) Cecilio Benjamin Other [employer] Other 05-31-2016 zoster vaccine, live Jose Enrique Benji II Other [employer] Other 05-13-2016 influenza virus vaccine, split virus (incl. purified surface antigen) Cecilio Benjamin Other [employer] Other 05-09-2015 influenza virus vaccine, split virus (incl. purified surface antigen) Cecilio Benjamin Other [employer] Other 03-06-2015 pneumococcal conjuga te vaccine, 13 valent Jose Enrique Rochester II Other [employer] Other 05-07-2014 tetanus and diphther ia toxoids, adsorbed, preservative free, for adult use (5 Lf of tetanus toxoid and 2 Lf of diphtheria toxoid) Cecilio Benjamin Other [employer] Other 04-23-2013 tetanus and diphther ia toxoids, adsorbed, preservative free, for adult use (5 Lf of tetanus toxoid and 2 Lf of diphtheria toxoid) Cecilio Benjamin Other [employer] Other 08-21-2012 pneumococcal polysaccharide vaccine, 23 valent Cecilio Benjamin Other [employer] Other 12-12-2011 zoster vaccine, live Jose Enrique Benji II Other [employer] Other Payers Date Payer Category Payer Self-pay 2022 Unknown [id number] 2018 Medicare [id number] 2006 Medicare MEDICARE MEDICAR E A AND B [id number] 2006-Present [phone] [place] [address] Medicare [id number] 2006 Unknown [employer] [id number] 2006-Present [phone] [address] [address] [place] [address] Indemnity [id number] 1959 Medicare [id number] 1959 Unknown [id number] 1941 Unknown [id number] 3 1941 Unknown [id number] 3 1941 Unknown [id number] 3 1941 Unknown [id number] 3 1941 Unknown [id number] 3 Unknown [id number] 1 Social History Date Type Detail Facility Start: 05-09-2021 End: 03-15-2023 Sex Assigned At [facility] Start: 1940 Sex Assigned At Male F [facility] Start: 06-13-2017 [facility] Start: 06-13-2017 Tobacco use and exposure Smokeless tobacco non-user [facility] Start: 05-09-2021 Alcohol intake Current drinke r of alcohol (finding) [facility] Start: 12-11-2017 Alcohol Comment [employer] in coffee [facility] Start: 1940 Sex Assigned At Not on file [facility] Start: 05-09-2021 End: 03-15-2023 History of Social function [facility] Adult Depression Screening Assessment 1 [facility] Medical Equipment Procedure Code Equipment Code Equipment Origin al Text Equipment Identifier Dates [place] Swivelock Tenodesis 8mm Biocomposite 19.5mm Suture [place] Eyelet - [id number] Start: 06-29-2017 Sleeve V40 +0mm Offset [place] Taper Titanium Adapter Hip - [id number] Start: 01-01-2018 Screw Trident Secur-Fit Torx 6.5mm Titanium 20mm Bone Sterile Acetabular - [id number] Start: 01-01-2018 Clinical Notes 08-25-2022 to 09-21-2023 Note Date & Type Note Facility 09-21-2023 Evaluation note Encounter Date Diagnosis Assessment Notes Sep, Carotid bruit, unspecified laterality (ICD-10 - R09.89) [employer] Other 01-23-2024 Evaluation note* Encounter Date Diagnosis Assessment Notes Treatment Notes Treatment Clinical Notes Aug, Acute bronchitis due to other specified organisms (ICD-10 - J20.8) Instructed to use Robitussin or Mucinex for cough, saline or Flonase NS for congestion, Tylenol for pain and fever. Aug, Chronic obstructive pulmonary disease with (acute) lower respiratory infection (ICD-10 - J44.0) Instructed to use Robitussin or Mucinex for cough, saline or Flonase NS for congestion, Tylenol for pain and fever. Initiate antibiotics. Aug, Chronic obstructive pulmonary disease with (acute) exacerbation (ICD-10 - J44.1) Increase Albuterol to tid Initiate Prednisone _update office on Sunday [employer] Other 01-15-2024 Evaluation note* Encounter Date Diagnosis Assessment Notes Treatment Notes Treatment Clinical Notes Aug, JONATHAN (generalized anxiety disorder) (ICD-10 - F41.1) [employer] Other 12-13-2023 Evaluation note* Encounter Date Diagnosis Assessment Notes Treatment Notes Treatment Clinical Notes Jul, Right-sided chest wall pain (ICD-10 - R07.89) Ice/heat and Tylenol Lidocaine patch. XR to r/o rib fx Monitor breathing and call office or go to ER for increased pain or dyspnea Jul, Contusion of right chest wall, initial encounter (ICD-10 - S20.211A) Ice and heat. Lidocaine patch, Tylenol. Monitor for bruising Jul, Primary hypertension (ICD-10 - I10) Elevated due to pain. This patient is instructed to consume a healthy, low-fat, low-salt diet. They are also encouraged to continue exercise to achieve/maintain a normal BMI. Patient is instructed on home BP measurements: - rest for 5 minutes w/o talking- positioned w/ feet on floor and arm supported- average best 2/3 readings w/ goal < 135/85 [employer] Other 11-28-2023 Evaluation note* Encounter Date Diagnosis Assessment Notes Treatment Notes Treatment Clinical Notes Jun, Multiple abrasions (ICD-10 - T07.XXXA) Cleanse w/ soap and water Apply Mupirocin bid until healed. Jun, Cellulitis of right lower extremity (ICD-10 - L03.115) Continue Doxycycline, decrease to qd until gone. Jun, Stasis dermatitis of both legs (ICD-10 - I87.2) Avoid salt and elevate lower extremities, support stockings, inspect legs and feet daily for blisters and ulcerations. Moisturizers daily [employer] Other 11-21-2023 Evaluation note* Encounter Date Diagnosis Assessment Notes Treatment Notes Treatment Clinical Notes Jun, Multiple abrasions (ICD-10 - T07.XXXA) Cleans w/ soap and water daily Mupirocin bid until ulcerations resolve Jun, Abrasion of right ankle, initial encounter (ICD-10 - S90.511A) Protect area from friction. Keep open to air unless irritated or draining 21 Nov, 2023 Cellulitis of right lower extremity (ICD-10 - L03.115) Rest and elevate. Begin antibiotics Call if develop increased pain or erythema [employer] Other 11-01-2023 Evaluation note* Encounter Date Diagnosis Assessment Notes Treatment Notes Treatment Clinical Notes Jun, Primary hypertension (ICD-10 - I10) This patient is instructed to consume a healthy, low-fat, low-salt diet. They are also encouraged to continue exercise to achieve/maintain a normal BMI. Remains elevate in office Patient is instructed on home BP measurements: - rest for 5 minutes w/o talking- positioned w/ feet on floor and arm supported- average best 2/3 readings w/ goal < 135/85 _update office next week Jun, Stage 3a chronic kidney disease (ICD-10 - N18.31) The patient is instructed on adequate control of hypertension and diabetes, if appropriate. They are also educated on the associated risks of NSAIDs and PPI use with kidney disease. They were instructed on adequate fluid balance and to avoid dehydration. Important to improve BP Jun, Obstructive sleep apnea (ICD-10 - G47.33) This patient is aware of the benefits associated with JACI: With continued use, the patient reduces the risk for CT, CVA, HTN, cardiac dysrhythmias and sudden cardiac deaths.The patient is also aware of the association between JACI and morning headaches, daytime somnolence, fatigue and obesity, which also has been improved with continued use.The patient is compliant with treatment, wearing the equipment every night for greater than 4 hours.The patient is instructed to continue use of the CPAP for JACI treatment. Jun, Chronic bronchitis, simple (ICD-10 - J41.0) Not using LABA/ICS routinely. Ok to use as needed but may do better using at least qd. Monitor wheezing and coughing UTD w/ vaccines Jun, Elevated cholesterol (ICD-10 - E78.00) Instructed on diet and exercise with continued statin therapy.Discussed the beneficial effects of lowering cholesterol in reducing the risk for cerebrovascular and cardiovascular disease. Jun, Lumbar spondylosis (ICD-10 - M47.816) The patient is instructed to avoid bending, twisting or lifting. They are to use intermittent heat and ice as needed. They may schedule a massage or gentle manipulation. They may safely use Tylenol as needed. Continue w/ massage treatment Held on pain management referral Jun, Gastroesophageal reflux disease with esophagitis without hemorrhage (ICD-10 - K21.00) Diet instructions: Smaller portions, avoid eating and laying flat, avoid eating or drinking prior to bedtime. Weight loss. Jun, Benign prostatic hyperplasia with lower urinary tract symptoms (ICD-10 - N40.1) Symptoms tolerable. Push fluids, notify office w/ polyuria, dribbling or hesitancy Jun, JONATHAN (generalized anxiety disorder) (ICD-10 - F41.1) Mood stable Daughter living w/ him, which helps his anxiety He remains very active. No change in medical treatment [facility] [employer] Other 10-27-2023 Evaluation note* Encounter Date Diagnosis Assessment Notes Treatment Notes Treatment Clinical Notes May, JONATHAN (generalized anxiety disorder) (ICD-10 - F41.1) [facility] Other 10-11-2023 Evaluation note* Encounter Date Diagnosis Assessment Notes Treatment Notes Treatment Clinical Notes May, Xerosis cutis (ICD-10 - L85.3) Moisturizer daily Handout w/ different moisterizers to purchase. Avoid hot showers May, Lumbar spondylosis (ICD-10 - M47.816) The patient is instructed to avoid bending, twisting or lifting. They are to use intermittent heat and ice as needed. They may schedule a massage or gentle manipulation. They may safely use Tylenol as needed. [facility] Other 08-01-2023 Miscellaneous Notes* Telephone Encounter - Neida Porter MA - 03/20/2023 12:26 PM EDT DATE OF SERVICE: 03/15/2023 PATIENT'S PHONE NUMBERS: [phone] (home) OR @WK@ PROVIDER: Dr. Jaeger PROCEDURE: Elective Pain Management Procedure Left message on machine Asked pt to call back and speak with the specialty triage nurse with update. Please obtain percentage better and the duration of improvement. Please inquire if there were any problems afterwards. [facility] Miscellaneous Notes* Telephone Encounter - Linda Knox LPN - 02/26/2023 4:42 PM EDT Spoke to patient in [facility] to pre procedure instructions. Pt must have a front loader residential driver. Pt advised to arrive 30 min prior. Pt to advised to arrive at 8:50am for a 9:20am procedure. , 03/15. Pt advised will also receive a call the day before from the surgery center to confirm date/time. Pt can eat and drink as normal. and Pt can take medications as normal. No alcohol 24 hours prior. Pt is on ASA.-81 mg okay to take. Advised on location of [address] Pt will receive a follow up call several days after by a meat service team member. If you experience any increase in weakness, difficulty walking or significant increase in pain thatlast more than 4 hours, please proceed to the Emergency Room and tell them you had a spine procedure done recently. Additionally, call us and notify us of these symptoms. Please call [phone] if you have any questions. Pt verbalized understanding. [facility] Miscellaneous Notes* Telephone Encounter - Linda Knox LPN - 02/19/2023 11:57 AM EDT Order approved Spoke to daughter in [facility] to pre procedure instructions. Daughter given scheduling number [phone] Pt must have a front loader residential driver. Pt advised to arrive 30 min prior to the time given by the cloud infrastructure architect. Pt advised will also receive a call the day before from the surgery center to confirm date/time. Pt can eat and drink as normal. and Pt can take medications as normal. No alcohol 24 hours prior. Pt is on ASA.- 81 mg okay to take. and must Advised on location of [address] Pt will receive a follow up call several days after by a meat service team member. If you experience any increase in weakness, difficulty walking or significant increase in pain thatlast more than 4 hours, please proceed to the Emergency Room and tell them you had a spine procedure done recently. Additionally, call us and notify us of these symptoms. Please call [phone] if you have any questions. Pt verbalized understanding. * Telephone Encounter - Linda Knox LPN - 02/19/2023 9:43 AM EDT Spine Intervention order formatted for review * Telephone Encounter - Camilla Jarrell Pss - 02/19/2023 9:18 AM EDT Ruperto Thorpe daughter Celi is calling David Jaeger, DO today to ask about getting patient a shot again - Last one in 2020 Please advise what patient needs as far as OV or MRI or if he can be scheduled for procedure - daughter states she left a VM somewhere last week but never heard back Please call Celi as patient cannot hear well [phone] Patient has been identified by name and birthdate. Duration of symptoms: N/A Person calling: daughter: Celi Call patient at: N/A [phone] (home) [phone] (cell) Was an appointment scheduled: No Closing statement: Results or non-symptom based questions: Thank you for calling [facility], your call will be returned within the next business day. Camilla Jarrell Pss documented in [facility] Evaluation note* Encounter Date Diagnosis Assessment Notes Treatment Notes Treatment Clinical Notes Jan, Medicare annual wellness visit, subsequent (ICD-10 - Z00.00) Personalized health advice was given to the beneficiary including a written plan for screenings discussed and provided. Advanced care planning reviewed and/or information given as requested. Additional counseling was provided here today in regards to, [ ]. The above visit was performed by [ ], under direct supervision of [ ]. Document reviewed and amended by provider signed below. Jan, Primary hypertension (ICD-10 - I10) This patient is instructed to consume a healthy, low-fat, low-salt diet. They are also encouraged to continue exercise to achieve/maintain a normal BMI. Jan, Stage 3a chronic kidney disease (ICD-10 - N18.31) The patient is instructed on adequate control of hypertension and diabetes, if appropriate. They are also educated on the associated risks of NSAIDs and PPI use with kidney disease. They were instructed on adequate fluid balance and to avoid dehydration. Jan, Obstructive sleep apnea (ICD-10 - G47.33) This patient is aware of the benefits associated with JACI: With continued use, the patient reduces the risk for CT, CVA, HTN, cardiac dysrhythmias and sudden cardiac deaths.The patient is also aware of the association between JACI and morning headaches, daytime somnolence, fatigue and obesity, which also has been improved with continued use.The patient is compliant with treatment, wearing the equipment every night for greater than 4 hours.The patient is instructed to continue use of the CPAP for JACI treatment. Jan, Chronic bronchitis, simple (ICD-10 - J41.0) No ER visits for AE COntinue LABA/ICS - rare use of SHARIF Jan, Elevated cholesterol (ICD-10 - E78.00) Instructed on diet and exercise with continued statin therapy.Discussed the beneficial effects of lowering cholesterol in reducing the risk for cerebrovascular and cardiovascular disease. Jan, Lumbar spondylosis (ICD-10 - M47.816) The patient is instructed to avoid bending, twisting or lifting. They are to use intermittent heat and ice as needed. They may schedule a massage or gentle manipulation. They may safely use Tylenol as needed. Referral back to pain management for injections Jan, Gastroesophageal reflux disease with esophagitis without hemorrhage (ICD-10 - K21.00) Diet instructions: Smaller portions, avoid eating and laying flat, avoid eating or drinking prior to bedtime. Weight loss. Jan, Benign prostatic hyperplasia with lower urinary tract symptoms (ICD-10 - N40.1) Symptoms tolerable PSA normal Jan, JONATHAN (generalized anxiety disorder) (ICD-10 - F41.1) Healthy diet, keep active [employer] Other 06-22-2023 Evaluation note* Encounter Date Diagnosis Assessment Notes Treatment Notes Treatment Clinical Notes Jan, Elevated cholesterol (ICD-10 - E78.00) Jan, Stage 3a chronic kidney disease (ICD-10 - N18.31) Jan, Primary hypertension (ICD-10 - I10) Jan, Screening PSA (prostate specific antigen) (ICD-10 - Z12.5) Jan, High risk medication use (ICD-10 - Z79.899) [employer] Other 06-15-2023 Evaluation note* Encounter Date Diagnosis Assessment Notes Treatment Notes Treatment Clinical Notes Jan, Primary osteoarthrit is of left knee (ICD-10 - M17.12) Jan, Chondrocalcinosis of knee, left (ICD-10 - M11.262) Jan, Other 1. We had a kaden g discussion with the patient today concerning their left knee osteoarthritis. The radiographs do show osteoarthritis of the knee. However, patient is managing quite well and doing everything he wants to. 2. Tylenol: Discussed taking Tylenol (acetaminophen). Recommended adjusting their dosing to 1000mg by mouth up to 3 times a day. 3. NSAIDs: Recommended continuing his oral anti-inflammatories 4. Physical therapy: Discussed formal physical therapy and home regimen. Patient preferred no PT at this time. 5. Injections: Discussed injections as a treatment option. Did not recommend any injections at this time 6. Follow up as needed [employer] Other 04-24-2023 Evaluation note* Encounter Date Diagnosis Assessment Notes Treatment Notes Treatment Clinical Notes Nov, Stage 3a chronic kidney disease (ICD-10 - N18.31) The patient is instructed on adequate control of hypertension and diabetes, if appropriate. They are also educated on the associated risks of NSAIDs and PPI use with kidney disease. They were instructed on adequate fluid balance and to avoid dehydration. Nov, Primary hypertension (ICD-10 - I10) This patient is instructed to consume a healthy, low-fat, low-salt diet. They are also encouraged to continue exercise to achieve/maintain a normal BMI. Instructed on taking BP at home. 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 Nov, Bilateral carotid artery stenosis (ICD-10 - I65.23) Carotid US: 60-73% B/L - 09/2022 Continue primary prevention w/ ASA and control BP Statin stopped due to ADR Nov, Elevated cholesterol (ICD-10 - E78.00) Diet and exercise. 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 Control BP. Nov, Lumbar spondylosis (ICD-10 - M47.816) The patient is instructed to avoid bending, twisting or lifting. They are to use intermittent heat and ice as needed. They may schedule a massage or gentle manipulation. They may safely use Tylenol as needed. Refer to pain management due to intermittent pain and dysesthesias in left leg Nov, Primary osteoarthritis of left knee (ICD-10 - M17.12) s/p IA injection w/ cortisone. f/u w/ Orthopedics Nov, Primary osteoarthritis of left hip (ICD-10 - M16.12) Ice/heat and Tylenol. COntinue NSAIDs. f/u Orthopedics. Pain management for IA injection? Nov, Other Continue ASA da rosa and low salt diet. Discussed use of statin, experiencing ADR and stopped [employer] Other 03-23-2023 Evaluation note* Encounter Date Diagnosis Assessment Notes Treatment Notes Treatment Clinical Notes Oct, Stage 3a chronic kidney disease (ICD-10 - N18.31) The patient is instructed on adequate control of hypertension and diabetes, if appropriate. They are also educated on the associated risks of NSAIDs and PPI use with kidney disease. They were instructed on adequate fluid balance and to avoid dehydration. Oct, Primary hypertension (ICD-10 - I10) This patient is instructed to consume a healthy, low-fat, low-salt diet. They are also encouraged to continue exercise to achieve/maintain a normal BMI. Hold on any change in medication. Increase BP this week likely due to knee pain and steroids Oct, Strain of left knee, initial encounter (ICD-10 - S86.912A) Ice, brace and elevate Stop walking on TM Await Orthopedics evaluation. Oct, Primary osteoarthritis of left knee (ICD-10 - M17.12) Quad exercises, ice/heat and Tylenol [employer] Other 03-23-2023 Evaluation note* Encounter Date Diagnosis Assessment Notes Treatment Notes Treatment Clinical Notes Oct, Acute pain of left knee (ICD-10 - M25.562) Oct, Primary osteoarthritis of left knee (ICD-10 - M17.12) Oct, Other 1. We had a kaden g discussion with the patient today concerning their left knee osteoarthritis. The radiographs do show osteoarthritis of the knee. At this time the patient would like to avoid surgical intervention. We did discuss the risk and benefits of surgical versus nonoperative management. The patient would like to proceed with nonoperative management. We discussed that our options include injections, physical therapy, and the consistent use of anti-inflammatories. All 3 of these options, including their risks and benefits, were discussed at length with the patient. 2. Tylenol: Discussed taking Tylenol (acetaminophen). Recommended adjusting their dosing to 1000mg by mouth up to 3 times a day. 3. NSAIDs: Recommended utilizing Voltaren gel on a daily basis 4. Physical therapy: Discussed formal physical therapy and home regimen. Patient preferred no PT at this. 5. Injections: Discussed injections as a treatment option. After consent was obtained, the left knee was injected with 3cc Kenalog and 7cc bupivicaine using sterile technique. Patient tolerated the injection well. 6. Follow up as needed [employer] Other 02-23-2023 Evaluation note* Encounter Date Diagnosis Assessment Notes Treatment Notes Treatment Clinical Notes Sep, Stage 3a chronic kidney disease (ICD-10 - N18.31) The patient is instructed on adequate control of hypertension and diabetes, if appropriate. They are also educated on the associated risks of NSAIDs and PPI use with kidney disease. They were instructed on adequate fluid balance and to avoid dehydration. Sep, Primary hypertension (ICD-10 - I10) This patient is instructed to consume a healthy, low-fat, low-salt diet. They are also encouraged to continue exercise to achieve/maintain a normal BMI. Sep, Obstructive sleep apnea (ICD-10 - G47.33) This patient is aware of the benefits associated with JACI: With continued use, the patient reduces the risk for CT, CVA, HTN, cardiac dysrhythmias and sudden cardiac deaths.The patient is also aware of the association between JACI and morning headaches, daytime somnolence, fatigue and obesity, which also has been improved with continued use.The patient is compliant with treatment, wearing the equipment every night for greater than 4 hours.The patient is instructed to continue use of the CPAP for JACI treatment. 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 Sep, JONATHAN (generalized anxiety disorder) (ICD-10 - F41.1) Healthy diet, exercise, keep active Continue medication Sep, Elevated cholesterol (ICD-10 - E78.00) Diet and exercise with continued statin therapy. Sep, Lumbar spondylosis (ICD-10 - M47.816) The patient is instructed to avoid bending, twisting or lifting. They are to use intermittent heat and ice as needed. They may schedule a massage or gentle manipulation. They may safely use Tylenol as needed. Sep, Nocturia (ICD-10 - R35.1) Sep, Benign prostatic hyperplasia with lower urinary tract symptoms (ICD-10 - N40.1) Symptoms tolerable [employer] Other 02-08-2023 Evaluation note* Encounter Date Diagnosis Assessment Notes Treatment Notes Treatment Clinical Notes Sep, Elevated cholesterol (ICD-10 - E78.00) Sep, Stenosis of right carotid artery (ICD-10 - I65.21) Sep, Retinal hemorrhage of right eye (ICD-10 - H35.61) [employer] Other 01-06-2023 Evaluation note* Encounter Date Diagnosis Assessment Notes Treatment Notes Treatment Clinical Notes Aug, Carotid bruit, unspecified laterality (ICD-10 - R09.89) [employer] Other Evaluation noteNo assessment information available [facility] Work Phone: Evaluation noteNo InformationNort [place] [employer] Other Evaluation note* Diagnosis Spinal stenosis, lumbar region with neurogenic claudication- Primary Lumbar radiculopathy, chronic Thoracic or lumbosacral neuritis or radiculitis, unspecified [facility] Diagnosis Pseudoclaudication syndrome- Primary Spinal stenosis, lumbar region, with neurogenic claudication Lumbar radiculopathy Thoracic or lumbosacral neuritis or radiculitis, unspecified Pseudoclaudication syndrome Spinal stenosis, lumbar region, with neurogenic claudication Lumbar radiculopathy Thoracic or lumbosacral neuritis or radiculitis, unspecified documented in this encounter [facility] general Narrative - Reported* Type Description Date Medical History Acute bronchitis due to other sp ecified organisms Medical History Contracture of left ankle Medical History Left foot pain Medical History Lumbar spondylolysis Medical History Lumbar back pain wit h radiculopathy affecting left lower extremity Medical History Plantar fasciitis Medical History Olecranon bursitis of right elbo w Medical History Cervical spondylosis with radicu lopathy Medical History Primary osteoarthritis of left s [place] Medical History 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 Medical History Localized swelling of left lower leg Medical History Contusion of left foot, subseque nt encounter Medical History Dyspnea on effort Medical History Obstructive sleep apnea Medical History Hyperlipidemia type II Medical History Generalized anxiety disorder Medical History Spondylosis of cervi ximena region without myelopathy or radiculopathy Medical History Gastroesophageal ref lux disease with esophagitis without hemorrhage Medical History Chronic bronchitis, simple Medical History Elevated blood-press ure reading, without diagnosis of hypertension Medical History Chronic bronchitis with emphysem a Medical History Systolic murmur Medical History Benign prostatic hyp erplasia with lower urinary tract symptoms, symptom details unspecified Medical History Chronic kidney disease, stage 3a Medical History Aspiration pneumonia of left lower lobe due to regurgitated food Medical History Dermatitis Surgical History Colonoscopy 2002, 2009 Surgical History ACDF 1998 Surgical History EGD 2009 Surgical History Right Shoulder Arthroscopy 02/06 17 Surgical History Right JANELLE 06/2017 Hospitalization History see surgical history [employer] Other Summary Purpose Family History No Family History Records FoundNo Family History Records FoundNo Family History Records FoundNo Family History Records FoundNo Family History Records FoundNo Family History Records Found Advance Directives No Advanced Directives Records FoundNo Advanced Directives Records FoundNo Advanced Directives Records FoundNo Advanced Directives Records FoundNo Advanced Directives Records FoundNo Advanced Directives Records Found Additional Source Comments (unrecognized sect ion and content) No Status Records FoundNo Status Records FoundNo Status Records FoundNo Status Records FoundNo Status Records FoundNo Status Records Found INFORMATION SOURCE (unrecogn ized section and content) DATE CREATED AUTHOR 02/06/2018 [facility] DATE CREATED AUTHOR AUTHOR'S ORGANIZ ATION 06/10/2018 Toni Lawler [facility] DATE CREATED AUTHOR AUTHOR'S ORGANIZ ATION 11/06/2022 [facility] DATE CREATED AUTHOR AUTHOR'S ORGANIZ ATION 12/21/2022 [facility] DATE CREATED AUTHOR AUTHOR'S ORGANIZ ATION 03/15/2023 [facility] DATE CREATED AUTHOR AUTHOR'S ORGANIZ ATION 03/22/2023 [facility] REASON FOR VISIT (unrecogniz ed section and content) Carotid Ultrasound Reason Comments Appointment Reason Comments Procedure Reason Comments Follow Up Phone Call Care Teams (unrecognized sec tion and content) Team Status: Inactive Member Role Status Dates Jose Enrique Leblanc II, MD Attending Provider Active Sales Financial Analyst Relationship Specialty Start Date End Date Cecilio Benjamin DO PCP - General Internal Medicine 09/04/13 Sales Financial Analyst Relationship Specialty Start Date End Date Cecilio Benjamin DO PCP - General Internal Medicine 09/04/13 Sales Financial Analyst Relationship Specialty Start Date End Date Cecilio Benjamin DO PCP - General Internal Medicine 09/04/13 Sales Financial Analyst Relationship Specialty Start Date End Date Cecilio Benjamin DO PCP - General Internal Medicine 09/04/13 Goals (unrecognized section and content) Goals may be documented in a n alternate section Source Comments (unrecognize d section and content) In the event this informatio n is protected by the Federal Confidentiality of Alcohol and Drug Abuse Patient Records regulations: The Federal rules restrict any use of the information to criminally investigate or prosecute any alcohol or drug abuse patient.[facility] the event this information is protected by the Federal Confidentiality of Alcohol and Drug Abuse Patient Records regulations: The Federal rules restrict any use of the information to criminally investigate or prosecute any alcohol or drug abuse patient.[facility] the event this information is protected by the Federal Confidentiality of Alcohol and Drug Abuse Patient Records regulations: The Federal rules restrict any use of the information to criminally investigate or prosecute any alcohol or drug abuse patient.[facility] the event this information is protected by the Federal Confidentiality of Alcohol and Drug Abuse Patient Records regulations: The Federal rules restrict any use of the information to criminally investigate or prosecute any alcohol or drug abuse patient.[facility] FOR RECORDS PERTAINING TO PATIENTS WHO ARE OR HAVE BEEN ENROLLED IN A CHEMICAL DEPENDENCY/SUBSTANCEABUSE PROGRAM, SOME INFORMATION MAY BE OMITTED. This clinical summary was aggregated from multiple sources. Caution should be exercised in using it in the provision of clinical care. This summary normalizes information from multiple sources, and as a consequence, information in this document may materially change the coding, format and clinical context of patient data. In addition, data may be omitted in some cases. CLINICAL DECISIONS SHOULD BE BASED ON THE PRIMARY CLINICAL RECORDS. [facility] [employer] [facility]. provides no warranty or guarantee of the accuracy or completeness of information in this document.
--- NOTE | 2023-09-28 09:40 | US_ITS ---
[address] [address] Patient Name: NEISHA MITCHELL MRN: [id number] date: 1940 Sex: M Assigned Patient Location: [place] Current Patient Location: [place] Accession/Order Number: [id number] Exam Date: 09/28/2023 09:50 Report Date: 09/28/2023 12:23 At the request of: SARA TAYLOR Procedure: US carotid duplex BI EXAMINATION: US carotid duplex BI HISTORY: Carotid Bruit R09.389 COMPARISON: No relevant comparison available. TECHNIQUE: Duplex Doppler ultrasound analysis of carotid and vertebral arteries. . Bilateral carotid arterial duplex examination was performed using B-mode, color flow and spectral analysis. Carotid stenosis is reported according to validated velocity parameters, similar to NASCET criteria. FINDINGS: RIGHT CAROTID ARTERY Mild to moderate atherosclerotic plaque with maximum area of reduction 69% in the bulb. Elevated flow velocity right ECA Subclavian: PSV: 164.9 cm/s cm/s EDV: 3.3 cm/s cm/s CCA: Prox: PSV: 74.2 cm/s cm/s EDV: 15.5 cm/s cm/s Mid: PSV: 83.3 cm/s cm/s EDV: 18.1 cm/s cm/s Distal: PSV: 75.5 cm/s cm/s EDV: 15.5 cm/s cm/s BULB: PSV: 85.9 cm/s cm/s EDV: 16.8 cm/s cm/s ICA: Prox: PSV: 54.6 cm/s cm/s EDV: 9.0 cm/s cm/s Mid: PSV: 70.3 cm/s cm/s EDV: 18.1 cm/s cm/s Distal: PSV: 96.3 cm/s cm/s EDV: 31.2 cm/s cm/s ECA: PSV: 190.3 cm/s cm/s EDV: 13.7 cm/s cm/s VERTEBRAL: PSV: 45.6 cm/s cm/s EDV: 5.2 cm/s cm/s, antegrade ICA/CCA ratio: PSV: 1.2 EDV: 1.7 LEFT CAROTID ARTERY Mild to moderate atherosclerotic plaque with maximum area of reduction 53% in the carotid bulb. Subclavian: PSV: 112.2 cm/s cm/s EDV: 19.5 cm/s CCA: Prox: PSV: 80.6 cm/s cm/s EDV: 15.6 cm/s Mid: PSV: 68.8 cm/s cm/s EDV: 17.5 cm/s Distal: PSV: 76.7 cm/s cm/s EDV: 19.5 cm/s BULB: PSV: 70.8 cm/s cm/s EDV: 17.5 cm/s ICA: Prox: PSV: 80.6 cm/s cm/s EDV: 21.5 cm/s Mid: PSV: 84.5 cm/s cm/s EDV: 17.5 cm/s Distal: PSV: 82.6 cm/s cm/s EDV: 15.6 cm/s ECA: PSV: 88.7 cm/s cm/s EDV: 12.1 cm/s VERTEBRAL: PSV: 45.6 cm/s cm/s EDV: 14.9 cm/s , antegrade ICA/CCA ratio: PSV: 1.1 EDV: 0.9 US/US carotid duplex BI IMPRESSION: 0-49% flow stenosis bilateral internal carotid arteries 69% right carotid bulb and 53% left carotid bulb area reduction Spectral Doppler US Thresholds (Reference: Todd EG, et al. Radiology 2000; 214:247-252) Stenosis (%) PSV (cm/sec) VICA/VCCA 0-49 <150 <2.5 50-69 150-225 2.5-4.0 >70 >225 >4.0 Electronically authenticated by: AUGUSTO MILLIGAN Date: 09/28/2023 12:23
== END 2023-09-28 09:28 | disposition home or self-care (01) ==
LOC: US 09:27
PROVIDERS: PCP Internal Medicine; Visit Provider Internal Medicine
DX: R09.89 Other specified symptoms and signs involving the circulatory and respiratory systems (principal); I65.23 Occlusion and stenosis of bilateral carotid arteries
CPT/HCPCS: 93880

== ENCOUNTER 2024-01-28 13:40 | Outpatient (OUT) | payer MEDICARE, OTHER, SELFPAY ==
--- NOTE | 2024-01-28 15:00 | P.CN_ITS ---
Consult Note: HPI Data of Consult Patient: new to practice Consult date: 01/28/24 Requesting Physician: Maddie Villalobos MD Primary Care Provider: Cecilio Benjamin DO Consult Narrative Reason for consult: low back pain, bilateral leg weakness Narrative: 83yom who presents for evaluation. longstanding low back pain, worsened with standing and ambulation. last lumbar mri in 2020. states he underwent two spine injections last year, which provided benefit. is very active and works as a [employer]. engages in chiropractic therapy >6 weeks, without lasting benefit. uses tylenol as needed. denies adverse med side effects. cc:: CC: Maddie Villalobos MD Review of Systems ROS Status of ROS 10 or more systems reviewed and unremark able except as noted in history and below Exam Narrative Exam Narrative: Psych-alert and oriented x 3. Attentive and appropriate, constitutionally normal, displays normal mood and affect per situation. There are no obvious deficits in memory, reasoning, or intellect.? Skin-no obvious rashes, bruising, erythema noted to the patient's area of pain.? Extremities- extremities are warm with minimal edema and palpable pulses. Lumbar-tenderness to palpation noted in the lumbar spine and paraspinal musculature. Pain is elicited with flexion, extension, and lateral rotation of the lumbar spine. Range of motion is diminished with these motions. Facet loading maneuvers are positive. Strength-noted to be unremarkable with the exception of decreased strength rated at 4 out of 5 in bilateral quadriceps femoris, anterior tibialis. Sensory-no notable sensory deficits in the bilateral lower extremities to touch or pinprick in all dermatomal distributions with the exception to decreased sensation to the bilateral L4, 5 dermatomal distribution Coordination remains intact.? Gait remains non-antalgic. Assessment and Plan Assessment and Plan (1) Lumbar stenosis with neurogenic claudication: (2) Lumbar spondylosis: Plan 83yom who presents for evaluation. failed conservative measures, as noted. given persistence of symptoms and exam findings, will update lumbar mri without contrast. he is in agreement. meds reviewed, no changes. follow up after imaging.
== END 2024-01-28 13:41 | disposition home or self-care (01) ==
LOC: PM 13:40
PROVIDERS: PCP Internal Medicine; Visit Provider Anesthesiology
DX: M48.062 Spinal stenosis, lumbar region with neurogenic claudication (principal); M47.816 Spondylosis without myelopathy or radiculopathy, lumbar region
CPT/HCPCS: G0463

== ENCOUNTER 2024-02-07 09:15 | Outpatient (OUT) | payer MEDICARE, OTHER, SELFPAY ==
--- NOTE | 2024-02-07 09:18 | MR_ITS ---
[place] [id number] Patient Name: NEISHA MITCHELL MRN: [id number] date: 1940 Sex: M Assigned Patient Location: MRI Current Patient Location: Accession/Order Number: [id number] Exam Date: 02/07/2024 09:40 Report Date: 02/08/2024 08:03 At the request of: DIRK WESLEY Procedure: MR lumbar spine wo con EXAMINATION: MR lumbar spine wo con HISTORY: Lumbar Stenosis With Neuro Claudication COMPARISON: No relevant comparison available. TECHNIQUE: A variety of imaging planes and parameters were utilized for visualization of suspected pathology. FINDINGS: For the purposes of numbering, sagittal T2 image # 9 extends from the T10-T11 vertebral body superiorly to the S3 level inferiorly. PARASPINAL AREA: Normal with no visible mass. BONES: Rotatory levocurvature. Signal abnormality lower endplate of L2 and upper endplate of L3, increased T2 STIR and decreased T1, Modic 1 change. No spondylolisthesis. Moderate diffuse degenerative spondylosis CORD/CAUDA EQUINA: Normal caliber, contour, and signal intensity. DISC LEVELS: 12-L1: Moderate degenerative disc disease is present without visible neural impingement. L1-L2: Moderate degenerative disc disease is present without visible neural impingement. L2-L3: Severe disc space narrowing with collapse on the right. Associated endplate sclerosis. Moderate diffuse disc/osteophyte complex. Facet osteoarthropathy. No central canal or left foraminal stenosis. Moderate narrowing of the right neural foramen, sagittal image 10 L3-L4: Moderate disc space narrowing and disc desiccation. Moderate diffuse disc/osteophyte complex and facet osteoarthropathy. Moderate trefoil narrowing of the central canal. Bilateral foraminal stenosis, mild to moderate L4-L5: Disc desiccation. Posterior broad-based disc herniation of the protrusion type extending up to 4 mm. Bilateral facet osteoarthropathy and ligamentum flavum hypertrophy. No central canal stenosis. No right foraminal stenosis. Severe left foraminal stenosis L5-S1: 3 mm anterolisthesis of L5 on S1. Resultant pseudobulge. Facet osteoarthropathy. No central canal or right foraminal stenosis. Mild narrowing of the left neural foramen MR/MR lumbar spine wo con IMPRESSION: Degenerative changes resulting in central and foraminal stenosis at multiple levels as detailed above, most significant along the left L4-L5 neural foramen with a severe stenosis Electronically authenticated by: AUGUSTO MILLIGAN Date: 02/08/2024 08:03
== END 2024-02-07 09:16 | disposition home or self-care (01) ==
LOC: MRI 09:15
PROVIDERS: PCP Internal Medicine; Visit Provider Anesthesiology
DX: M48.062 Spinal stenosis, lumbar region with neurogenic claudication (principal); M51.36 Other intervertebral disc degeneration, lumbar region
CPT/HCPCS: 72148

== ENCOUNTER 2024-02-11 14:44 | Outpatient (OUT) | payer MEDICARE, OTHER, SELFPAY ==
--- OUTSIDE RECORDS SUMMARY | 2024-02-11 15:07 | XMS_ITS | CCD ---
Author Organization [facility] Care Team Providers Care Boat Canvas Installer Name Role Phone CECILIO BENJAMIN~[phone] UNKNOWN Unavailable Unavailable BETH GOODEN Unavailable Unavailable GIACOMO, BETH Campbell Unavailable Unavailable GIACOOM, BETH Campbell Unavailable Unavailable Cecilio Benjamin Unavailable BRANDON, DR [...] Unavailable BRANDON, DR RUIZ Consulting Unavailable HAWLEY, WINCHA Consulting Unavailable MD Jose Enrique Leblanc II Attending Provider [phone] Jose Enrique Leblanc II Unavailable Jose Enrique Leblanc II Attending UnavailJose Enrique Malin II Admitting UnavailCecilio Mgcrath DO Primary Care Provider DAVID JAEGER Admitting Unavailable DAVID JAEGER Attending Unavailable CECILIO BENJAMIN Primary Care Unavailable Griselda WHARTON, Maddie Carreno Attending Unavailable Allergies Allergy Classification Reported Allergen(s) Allergy Type Date of Onset Reaction(s) Facility (7 sources) bacitracin; Translations: [bacitracin] Drug Allergy 09-11-2013 Unknown [facility] Repository (19 sources) Albuterol Drug Allergy Unknown [facility] Other (20 sources) HMG-CoA reductase inhibitor Drug allergy Unknown [facility] Other Medications Current Medications Medication Drug Class(es) Dates Sig (Normalized) Sig (Original) acetaminophen 325 mg oral tablet (20 sources) Start: 10-17-2023 take 2 tablets by mouth every eight hours as needed Acetaminophen Active 325 MG PO Every 8 hours October 17, 2023 1:00am 2 tablets by mouth orally every 8 hours PRN Start: 01-02-2018 take 2 tablets by mo uth every eight hours acetaminophen (TYLENOL) 500 mg tablet Take 2 tablets by mouth every 8 hours. (Mild pain reliever) 90 tablet 1 01/02/2018 Active take 2 tablets by mo uth every eight hours as needed Acetaminophen 325 MG 2 tablets by mouth Orally every 8 hours PRN Active Comment on above: Take 2 tablets by mo uth every 8 hours. (Mild pain reliever) [id number] 200 actuat albuterol 0.09 mg/actuat metered dose inhaler (11 sources) beta2-Adrenergic Agonist Start: End: take 2.5 mg by inhalation every four to six hours Albuterol Sulfate Active 2.5 MG INHALATION EVERY 4-6 HOURS 540 90 October 30, 2023 1:20pm Start: 10-10-2023 End: 01-22-2024 take 1 puff(s) by inhalation every four to six hours Albuterol Sulfate Active 2 PUFF INHALATION EVERY 4-6 HOURS 8.5 January 22, 2024 9:28am Start: 09-28-2023 Albuterol Sulf ate (2.5 MG/3ML) 0.083% 3 mL as needed Inhalation every 6 hrs Sep, Active Start: 07-22-2021 albuterol HFA (PROVENTIL HFA, VENTOLIN HFA) 90 mcg/actuation inhaler amLODIPine 2.5 mg oral tablet (20 sources) Dihydropyridine Calcium Channel Chanel Start: 10-17-2023 End: 10-19-2023 take 2.5 mg by mouth once daily Amlodipine Active 2.5 MG PO Daily October 19, 2023 11:05am Start: 10-12-2022 take 1 tablet by christen th every twenty-four hours amLODIPine Besylate 2.5 MG 1 tablet Orally Once a day Sep, Active atorvastatin 10 mg oral tablet (5 sources) HMG-CoA Reductase Inhibitor Start: 09-27-2022 take 1 tablet by mouth once daily in the evening Atorvastatin Calcium 10 MG 1 tablet Orally daily in evening for 30 day(s) Sep, Active clobetasol propionate 0.0005 mg/mg topical ointment (20 sources) Corticosteroid Start: 10-17-2023 Clobetasol Active 1 APPLIC TOPICAL Twice daily October 17, 2023 1:00am Clobetasol Propi caroline 0.05 % 1 application Externally Twice a day Active clonazePAM 0.5 mg oral tablet (20 sources) Benzodiazepine Start: 10-17-2023 End: 10-19-2023 take 0.5 mg by mouth once daily at bedtime Clonazepam Active 0.5 MG PO Daily at bedtime October 19, 2023 11:06am Start: 09-03-2023 take 1 tablet by christen th every [...] mouth at bedtime as needed (1/2 tab). escitalopram 10 mg oral tablet (20 sources) Serotonin Reuptake Inhibitor Start: 4 End: take 10 mg by mouth once daily at bedtime Escitalopram Oxalate Active 10 MG PO Daily at bedtime October 19, 2023 11:07am Escitalopram Oxa late 10 MG TAKE 1 TABLET AT BEDTIME Active Comment on above: Take 10 mg by mouth once daily. 60 actuat fluticasone propionate 0.25 mg/actuat / salmeterol 0.05 mg/actuat dry powder inhaler (20 sources) Corticosteroid, beta2-Adrenergic Agonist Start: 01-22-2024 Fluticasone Propion-Salmeterol (Wixela Inhub) 250-50 mcg/dose blister with device Active 1 INH INHALATION Twice daily 60 30 January 22, 2024 12:00am take 1 puff(s) by inhalation twi ce daily Wixela Inhub 250-50 MCG/ACT 1 puff Inhalation Twice a day Active take 1 puff(s) by inhalation onc e daily FLUTICASONE/SALMETEROL (ADVAIR DISKUS INHALATION) Inhale 1 Puff as instructed once daily. 0 Active Comment on above: Inhale 1 Puff as ins tructed once daily. mupirocin 0.02 mg/mg topical ointment (20 sources) RNA Synthetase Inhibitor Antibacterial Start: 10-17-2023 Mupirocin Active 1 APPLIC TOPICAL Twice daily October 17, 2023 1:00am Mupirocin 2 % 1 application Externally Twice a day Active nabumetone 500 mg oral tablet (20 sources) Nonsteroidal Anti-inflammatory Drug Start: 10-17-2023 End: 10-19-2023 take 500 mg by mouth twice daily Nabumetone Active 500 MG PO Twice daily 180 October 19, 2023 11:07am Start: 02-08-2021 nabumetone (RE LAFEN) 500 mg tablet omeprazole 20 mg delayed release oral capsule (20 sources) Proton Pump Inhibitor Start: 10-17-2023 End: 10-19-2023 take 20 mg by mouth once daily Omeprazole Active 20 MG PO Daily October 19, 2023 11:07am Omeprazole 20 MG TAKE 1 CAPSULE EVERY DAY ON AN EMPTY STOMACH FOLLOWED IN 30 MINUTES BY BREAKFAST Active Comment on above: Take 20 mg by mouth once daily. predniSONE 20 mg oral tablet (3 sources) Start: 09-11-19 take 1 tablet by mouth twice daily predniSONE 20 MG 1 tablet Orally bid w/ food for 5 days Aug, Active silver sulfADIAZINE 10 mg/ml topical cream (20 sources) Sulfonamide Antibacterial Start: 10-17-19 Silver Sulfadiazine Active 1 APPLIC TOPICAL Daily October 17, 2023 1:00am Silvadene 1 % 1 application Externally Once a day Active Silvadene 1 % 1 application Externally Once a day Active tamsulosin hydrochloride 0.4 mg oral capsule (20 sources) alpha-Adrenergic Chanel Start: 01-07-2024 Tamsu losin Active 0 .ROUTE .COMPLEX January 07, 2024 12:45pm TAKE 1 CAPSULE DAILY Start: 10-17-2023 End: 01-07-2024 take 0.4 mg by mouth once daily Tamsulosin Discontinued 0.4 MG PO Daily 90 October 19, 2023 11:08am January 07, 2024 12:45pm Tamsulosin HCl 0 .4 MG TAKE 1 CAPSULE EVERY EVENING Active Comment on above: Take 0.4 mg by mouth . triamcinolone acetonide 0.001 mg/mg topical ointment (20 sources) Corticosteroid Start: 10-17-2023 End: 10-19-2023 Triamcinolone Acetonide Active 1 APPLIC TOPICAL Twice daily 80 October 19, 2023 11:08am Start: 05-30-2023 Triamcinolone Acetonide 0.1 % 1 application Externally Twice a day for 30 days May, Active Start: 11-09-2022 Kenalog-40 Oct, 120 mg Completed/Discontinued Medications Medication Drug Class(es) Dates Sig (Normalized) Sig (Original) amoxicillin 500 mg oral tablet (4 sources) Penicillin-class Antibacterial Start: 12-04-2018 Amoxicillin 500 mg tablet Take 4 tablets by mouth 1 hour prior to procedure and 2 tablets by mouth 6 hours after procedure 6 tablet 5 12/04/2018 Active Comment on above: Take 4 tablets by mo ut 1 hour prior to procedure and 2 tablets by mouth 6 hours after procedure aspirin 325 mg delayed release oral tablet (4 sources) Platelet Aggregation Inhibitor, Nonsteroidal Anti-inflammatory Drug Start: 01-02-2018 take 1 tablet by mouth twice daily aspirin, enteric coated (ASPIRIN, ENTERIC COATED) 325 mg EC tablet Take 1 tablet by mouth twice daily. (Blood thinner to prevent blood clots) 84 tablet 0 01/02/2018 Active Comment on above: Take 1 tablet by christen th twice daily. (Blood thinner to prevent blood clots) Calcium Carbonate / vitamin D3 (4 sources) take 1 tablet by mouth once daily CALCIUM CARBONATE/VITAMIN D3 (VITAMIN D-3 ORAL) Take 1 tablet by mouth once daily. 0 Active Comment on above: Take 1 tablet by christen th once daily. COMPOUNDED PRESCRIPTION (4 sources) COMPOUNDED PRESCRIPTION Fiber Well 5mg. Take daily 0 Active Comment on above: Fiber Well 5mg. Take daily docusate sodium 100 mg oral capsule (4 sources) Start: 01-02-2018 take 1 capsule by mouth twice daily docusate sodium (COLACE) 100 mg capsule Take 1 capsule by mouth twice daily. (Stool softener) 60 capsule 0 01/02/2018 Active Comment on above: Take 1 capsule by mo ut twice daily. (Stool softener) doxycycline hyclate 100 mg oral capsule (15 sources) Tetracycline-class Drug Start: 10-17-2023 End: 10-19-2023 take 100 mg by mouth twice daily Doxycycline Hyclate Discontinued 100 MG PO Twice daily October 17, 2023 1:00am October 19, 2023 11:06am Start: 07-10-2023 take 1 capsule by mo ut every twelve hours Doxycycline Hyclate 100 MG 1 capsule Orally Twice a day for 7 days Aug, Not-Taking/PRN ferrous sulfate 325 mg oral tablet (1 source) Start: 01-02-2018 End: 02-19-2023 take 1 tablet by mouth twice daily at mealtime ferrous sulfate 325 mg (65 mg iron) tablet Take 1 tablet by mouth twice daily with meals. (Iron supplement) 30 tablet 0 01/02/2018 02/19/2023 Discontinued Comment on above: Take 1 tablet by mouth twice daily with meals. (Iron supplement) FISH OIL-DHA-EPA ORAL (4 sources) take 1 capsule by mouth once daily FISH OIL-DHA-EPA ORAL Take 1 capsule by mouth once daily. 0 Active Comment on above: Take 1 capsule by mouth once daily. MELATONIN, BULK, MISC (5 sources) MELATONIN, BULK, MISC Take 2 tablets by mouth. 0 Active End: 02-19-2023 take 2 tablets by mouth once daily at bedtime MELATONIN, BULK, MISC Take 2 tablets by mouth daily at bedtime. 0 02/19/2023 Discontinued Comment on above: Take 2 tablets by mo uth. Take 2 tablets by mo ut daily at bedtime. methylPREDNISolone (1 source) Corticosteroid Start: 2020 End: 2022 methylPREDNISolone (MEDROL, AYLA,) 4 mg Dose-Pack Take as directed on package. Do not take any NSAID'S while taking medication. 1 Package 0 05/09/2021 02/19/2023 Discontinued Comment on above: Take as directed on package. Do not take any NSAID'S while taking medication. Miscellaneous Medical Supply (TABLET CUTTER[place] [facility] [place] Start: 2017 End: 2022 Miscellaneous Medical Supply (TABLET CUTTER[place] [facility] [place]ications: Primary osteoarthritis of right hip [place]asper Please include hit kit 1 Each 0 12/12/2017 02/19/2023 Discontinued Comment on above: Grasper Please include hit kit Multivitamin capsule (4 sources) take 1 capsule by mouth once daily Multivitamin capsule Take 1 capsule by mouth once daily. 0 Active Comment on above: Take 1 capsule by mo uth once daily. Problems Active Problems Problem Classification Problem Date Documented Date Episodic/Chronic Acute bronchitis (10 sources) Acute bronchitis; Translations: [Acute bronchitis due [...] ; Translations: [Stage 3a chronic kidney disease] 10-18-2023 Chronic Chronic obstructive pulmonary disease and bronchiectasis (20 sources) Emphysematous bronchitis; Translations: [Chronic obstructive pulmonary disease, unspecified] Chronic Disorders of lipid metabolism (20 sources) Pure hypercholesterolemia; 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] Onset: 02-09-2022 Chronic Esophageal disorders (17 sources) Gastroesophageal reflux disease; Translations: [Gastro-esophageal reflux disease without esophagitis] 01-02-2018 Chronic Essential hypertension (20 sources) Essential hypertension; Translations: [Essential (primary) hypertension] Chronic Genitourinary symptoms and ill-defined conditions (1 source) Nocturia Episodic Gout and other crystal arthropathies (19 sources) Chondrocalcinosis of joint of left knee; [...] spondylolisthesis; Translations: [Spondylolysis, lumbar region] Episodic Other acquired deformities (1 source) Spondylolysis; Translations: [Spondylolysis, lumbar region] 10-18-2023 Episodic Other acquired deformities (1 source) Spondylolysis, lumbar region; Translations: [Acquired spondylolisthesis] 01-22-2024 Episodic Other aftercare (2 sources) Other half-way (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 therapy; Translations: [OTH [facility] CURRENT DRUG THERAPY] Onset: 11-06-2022 Episodic Other [...] Episodic Other diseases of veins and lymphatics (10 sources) Stasis dermatitis; Translations: [Venous insufficiency (chronic) [...] (adult) (pediatric)] 01-02-2018 Chronic Residual codes; unclassified (4 sources) Obstructive sleep apnea (adult) (pediatric); Translations: [Obstructive sleep apnea (adult)(pediatric)] Chronic Residual codes; unclassified (1 source) Acquired [...] Test Name Value Interpretation Reference Range Facility [facility]OR[facility] ([id number]) 1940 Jill Marie* Date Time Provider Department 03/20/23 DAVID JAEGER SPNMAV During your visit today, we recorded the following information about you: Neida Caballero MA 03/20/2023 12:30 PM Signed DATE OF SERVICE: 03/15/2023 PATIENT'S PHONE NUMBERS: [phone] (home) OR @Hairdressr@ PROVIDER: Dr. Jaeger PROCEDURE: Elective Pain Management Procedure Left message on machine Asked pt to call back and speak with the specialty triage nurse with update. Please obtain percentage better and the duration of improvement. Please inquire if there were any problems afterwards. Thanks, Roland Lira RN 03/21/2023 1:31 PM Signed Patient calling back 15% improvement so far Numbness and tingling in Left Foot Also still having pain in his Hamstring 6/10 Pain is Zero when sleeping States he does not have any trouble sleeping Pain is when he is up and trying to work Requesting to call his CELL ONLY [phone] what to do next Leave Detailed messages Neida Caballero MA 03/21/2023 2:01 PM Signed Formatted spine intervention order and sent to Dr. Jaeger for approval. Neida Caballero MA 03/21/2023 2:01 PM Signed Addended by: NEIDA CABALLERO on: 03/21/2023 02:01 PM Modules accepted: David Dorsey DO 03/21/2023 2:06 PM Signed Addended by: DAVID JAEGER on: 03/21/2023 02:06 PM Modules accepted: Neida Mathur MA 03/21/2023 2:08 PM Signed Called and [...] of spine injection schedulers to call at [phone]. Patient will call if he wants to schedule another injection. 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 Author [...] offered a procedure / surgery at a [facility] facility. Patient and I have discussed [...] surgery/procedure as indicated on the consent form. [facility] approved time out was performed identifying the site, side and level of procedure prior to start of procedure. [facility] [place] [facility] ABILENE - ELECTIVE PROCEDURE Lumbar Transforaminal Epidural Steroid [...] procedure and I performed the entire procedure. Davidjudith Jaeger DO, MBA [facility] Unique 02-26-2023 CNPN Telephone (SPNMAV) RUPERTO THORPE ([id number]) 1940 [employer]* Date Time Provider Department 02/26/23 DAVID JAEGER SPNMAV During your visit today, we recorded the following information about you: Linda Knox LPN 02/26/2023 4:49 PM Signed Spoke to patient in [facility] to pre procedure instructions. Pt must have a local bulk driver. Pt advised to arrive 30 min [...] okay to take. Advised on location of [facility] Pt will receive a follow up call several days after by a wall steamer. If you experience any increase in weakness, difficulty walking or significant increase in pain that last more than 4 hours, please proceed to the Emergency Room and tell them you had a spine procedure done recently. Additionally, call us and notify us of these symptoms. Please call [phone] if you have any questions. Pt verbalized [...] Status:Closed by LINDA KNOX LPN on 02/26/23 Normal [facility] Unique 02-19-2023 CNPN Telephone (SPNMAV) RUEPRTO THORPE ([id number]) 1940 [employer] Date Time Provider Department 02/19/23 DAVID JAEGER SPTK During your visit today, we recorded the following information about you: Camilla Jarrell [facility] 02/19/2023 9:27 AM Signed Ruperto Thorpe daughter [...] call Celi as patient cannot hear well [phone] Patient has been identified by name and birthdate. Duration of symptoms: N/A Person calling: daughter: Celi Call patient at: N/A [phone] (home) [phone] (cell) Was an appointment scheduled: No Closing statement: Results or non-symptom based questions: Thank you for calling [facility], your call will be returned within the next business day. Camilla Jarrell [facility] Linda Knox LPN 02/19/2023 9:45 AM Signed Spine Intervention order formatted for review Linda Knox LPN 02/19/2023 11:59 AM Signed Order approved Spoke to daughter in reguards to pre procedure instructions. Daughter given scheduling number [phone] Pt must have a local bulk driver. Pt advised to arrive 30 min prior to the time given by the corporate scheduler. Pt advised will also receive a call the day before from the surgery center to confirm date/time. Pt can eat and drink as normal. and Pt can take medications as normal. No alcohol 24 hours prior. Pt is on ASA.- 81 mg okay to take. and must Advised on location of [facility] Pt will receive a follow up call several days after by a wall steamer. If you experience any increase in weakness, difficulty walking or significant increase in pain that last more than 4 hours, please proceed to the Emergency Room and tell them you had a spine procedure done recently. Additionally, call us and notify us of these symptoms. Please call [phone] if you have any questions. Pt verbalized understanding. 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 Normal [facility] XR knee LT 4V*on 11-09-2022 XR knee LT 4V* [facility] [place] [address] [place], [place] [id number] XRay Report Signed Patient: Ruperto Thorpe MR#: [id number] 5 : 1940 Acct:[id number] Age/Sex: 82 / M ADM Date: 11/09/22 Loc: [facility] Room: Type: [facility] Attending Dr: Jose Enrique Leblanc II, MD Copies to: Jose Enrique Leblanc MD Ordering Provider: Jose Enirque Leblanc MD Date of Service: 11/09/22 XR/XR [...] Darren Yuen M.D.11/09/2022 5:03 PM Dictation Location: [place] [address] Transcribed By: [facility] 11/09/221702 Dictated By: Darren Yuen II, MD 11/09/221700 Signed By: 11/09/221702 Normal [facility] XR knee LT 4V* [facility] [employer] Other XR knee LT 4V* [facility] [employer] Other XR knee LT 4V* [address] [place] [address] [employer] Other XR knee LT 4V* [place] [address] No rt [employer] Other XR knee LT 4V* XRay Report [employer] Other XR knee LT 4V* Signed [employer] Other XR knee LT 4V* Patient: Ruperto Thorpe MR#: [id number] [facility] Other XR knee LT 4V* 5 [employer] Other XR knee LT 4V* : 1940 Acct:[id number] [facility] Other XR knee LT 4V* Age/Sex: 82 / M ADM Date: 11/09/22 [facility] Other XR knee LT 4V* Loc: [facility] Room: Type : [facility] Other XR knee LT 4V* Attending Dr: Jose Enrique Leblanc II, MD [facility] Other XR knee LT 4V* Copies to: Jose Enrique Leblanc MD [facility] Other XR knee LT 4V* Ordering Provider: Jose Enrique Leblanc MD [facility] Other XR knee LT 4V* Date of Service: 11/09/22 [facility] Other XR knee LT 4V* XR/XR knee LT 4V*: Acute pain of left knee [facility] Other XR knee LT 4V* XR knee LT 4V* 11/09/2022 3:15 PM [facility] Other XR knee LT 4V* SIGNS AND SYMPTOMS: Acute pain of left knee [facility] Other XR knee LT 4V* PROTOCOL: Frontal, lateral, oblique, and sunrise views of the left knee [facility] Other XR knee LT 4V* COMPARISON: 11/05/2022 [facility] Other XR knee LT 4V* FINDINGS: [employer] Other XR knee LT 4V* There is similar narrowing of the weightbearing joint spaces with chondrocalcinosis of the menisci [facility] Other XR knee LT 4V* suggesting underlyin g CPPD. There is narrowing of the patellofemoral joint space with spurring at [facility] Other XR knee LT 4V* the superior pole of patella. There is a small joint effusion. No soft tissue swelling. No acute [facility] Other XR knee LT 4V* displaced fracture. Vascular calcifications are present posteriorly. [facility] Other XR knee LT 4V* XR/XR knee LT 4V* [facility] Other XR knee LT 4V* IMPRESSION: [employer] Other XR knee LT 4V* Tricompartmental degenerative changes are noted in the left knee with a small joint effusion. [facility] Other XR knee LT 4V* There is chondrocalcinosis of the menisci suggesting underlying CPPD. [facility] Other XR knee LT 4V* Impression dictated by: Darren Yuen M.D.11/09/2022 5:03 PM [facility] Other XR knee LT 4V* Dictation Location: [place] [address] [facility] Other XR knee LT 4V* Transcribed By: PWS 11/09/22 [facility] Other XR knee LT 4V* Dictated By: Darren Yuen II, MD 11/09/22 [facility] Other XR knee LT 4V* Signed By: [employer] Other XR knee LT 4V* 11/09/22 [facility] [employer] Other XR pelvis 1-2Von 11-09-2022 XR pelvis 1-2V [facility] [place] [address] [place] [address] XRay Report Signed Patient: Ruperto Thorpe MR#: [id number] 5 : 1940 Acct:[id number] Age/Sex: 82 / M ADM Date: 11/09/22 Loc: [facility] Room: Type: [facility] Attending Dr: Jose Enrique Leblanc II, MD [...] Darren Yuen M.D.11/09/2022 5:01 PM Dictation Location: [place] [address] Transcribed By: [facility] 11/09/22 170 Dictated By: Darren Yuen II, MD 11/09/221699 Signed By: 11/09/221700 [facility] XR pelvis 1-2V XR/XR pelvis 1-2V: Acute pain of left knee [facility] Other XR pelvis 1-2V XR pelvis 1-2V 11/09/2022 3:15 PM [facility] Other XR pelvis 1-2V SIGNS AND SYMPTOMS: Left knee pain [facility] Other XR pelvis 1-2V PROTOCOL: Frontal radiograph of the chest [facility] Other XR pelvis 1-2V COMPARISON: None [facility] [employer] Other XR pelvis 1-2V There is mild narrowing of the left hip joint space with subcortical cystic change on both sides of [employer] Other XR pelvis 1-2V the joint along the acetabular there is chondrocalcinosis of the labrum overlying the superior [employer] Other XR pelvis 1-2V acetabular rim and superior lateral femoral head. The bony ring of the pelvis is intact. There is [employer] Other XR pelvis 1-2V total right hip arthroplasty. Degenerative changes are noted in the sacroiliac joints. No fracture [facility] Other XR pelvis 1-2V is [employer] Other XR pelvis 1-2V XR/XR pelvis 1-2V [facility] Other XR pelvis 1-2V Degenerative changes are noted in the left hip with findings suspicious for previous labral [facility] Other XR pelvis 1-2V pathology. [employer] Other XR pelvis 1-2V Postoperative change s are noted in the right hip with total right hip arthroplasty hardware. [facility] Other XR pelvis 1-2V Impression dictated by: Darren Yuen M.D.11/09/2022 5:01 PM [facility] Other XR pelvis 1-2V Transcribed By: COLIN 11/09/22 1701 [facility] Other XR pelvis 1-2V Dictated By: Darren Yuen II, MD 11/09/22 1700 [facility] Other XR pelvis 1-2V 11/09/22 1701 [facility] Other XR KNEE LT 4V or >on [...] There is chondrocalcinosis. Soft tissues: Unremarkable. IMPRESSION: Dhke-zj-[id number] osteoarthritis as described above. Chondrocalcinosis. No acute fracture or dislocation. Electronically authenticated by: CHUCK JONES Date: 2022-11-05 11:19 Normal [facility] US CAROTID ART BILon 023 [...] JONAS MCLEOD Date: 2022-09-26 10:58 Normal [facility] CBC AUTO DIFFon 08-10-2022 BASO # 0.0 103/ul Normal 0.0-0.1 [facility] Comment on above: Performed By: #### C BC #### [facility] [address] [place] [address] Dr. Alexis Brink Basophils/100 WBC (Bld) 0.7 % Normal 0.2-2.0 [facility] Comment on above: Performed By: #### C BC #### [facility] [address] [place] [address] Dr. Alexis Brink EO # 0.3 103/ul Normal 0.0-0.7 [facility] Comment on above: Performed By: #### C BC #### [facility] [address] [place] [address] Dr. Alexis Brink Eosinophils/100 WBC (Bld) 6.1 % Normal 0.9-7.[address] [facility] Comment on above: Performed By: #### C BC #### [facility] [address] [place] [address] Dr. Alexis Brink Erythrocyte distribution width (RBC) [Ratio] 12.1 % Normal 11.0-15.[address] [facility] Comment on above: Performed By: #### C BC #### [facility] [address] [place] [address] Dr. Alexis Brink Hematocrit (Bld) [Volume fraction] 44.2 % Normal 42.0-54.[address] [facility] Comment on above: Performed By: #### C BC #### [facility] [address] [place] [address] Dr. Alexis Brink Hemoglobin (Bld) [Mass/Vol] 14.9 g/dL Normal 14.0-18.[address] [facility] Comment on above: Performed By: #### C BC #### [facility] [address] [place] [address] Dr. Alexis Brink IG # 0.01 10e3/ul Normal 0.00-0.[address] [facility] Comment on above: Performed By: #### C BC #### [facility] [address] [place] [address] Dr. Alexis Brink IG % 0.2 % Normal 0.0-0.[address] [facility] Comment on above: Performed By: #### C BC #### [facility] [address] [place] [address] Dr. Alexis Brink LYMPH # 1.2 103/ul Normal 1.2-3.[address] [facility] Comment on above: Performed By: #### C BC #### [facility] [address] [place] [address] Dr. Alexis Brink Lymphocytes/100 WBC (Bld) 21.3 % Normal 20.5-60.[address] [facility] Comment on above: Performed By: #### C BC #### [facility] [address] [place] [address] Dr. Alexis Brink MANUAL DIFF REQ NO Normal [facility] Comment on above: Performed By: #### C BC #### [facility] [address] [place] [address] Dr. Alexis Brink MCH (RBC) [Entitic mass] 30.7 pg Normal 25.9-34.0 [facility] Comment on above: Performed By: #### C BC #### [facility] [address] [address] [address] Alexis Brink MCHC (RBC) [Mass/Vol] 33.7 g/dL Normal 29.9-35.[address] [facility] Comment on above: Performed By: #### C BC #### [facility] [address] [address] [address] Alexis Brink MCV (RBC) [Entitic vol] 91.1 fL Normal 80.0-94.[address] [facility] Comment on above: Performed By: #### C BC #### [facility] [address] [place] [address] Dr. Alexis Brink MONO # 0.5 103/ul Normal 0.3-0.[address] [facility] Comment on above: Performed By: #### C BC #### [facility] [address] [place] [address] Dr. Alexis Brink Monocytes/100 WBC (Bld) 8.5 % Normal 1.7-12.[address] [facility] Comment on above: Performed By: #### C BC #### [facility] [address] [place] [address] Dr. Alexis Brink NEUT # 3.5 103/ul Normal 1.4-6.[address] [facility] Comment on above: Performed By: #### C BC #### [facility] [address] [address] [address] Alexis Brink Neutrophils/100 WBC (Bld) 63.2 % Normal 43.0-75.[address] [facility] Comment on above: Performed By: #### C BC #### [facility] [address] [address] [address] Alexis Brink Platelet mean volume (Bld) [Entitic vol] 10.0 fL Normal 9.5-13.[address] [facility] Comment on above: Performed By: #### C BC #### [facility] [address] [address] [address] Alexis Brink PLT 120 103/ul Critically low 150-450 [facility] Comment on above: Performed By: #### C BC #### [facility] [address] [place], [place] [address] Dr. Alexis Brink RBC 4.85 106/ul Normal 4.70-6.10 [facility] Comment on above: Performed By: #### C BC #### [facility] [address] [place], [place] [address] Dr. Alexis Brink WBC 5.6 103/ul Normal 4.0-11.[address] [facility] Comment on above: Performed By: #### C BC #### [facility] [address] [place], [place] [address] Dr. Alexis Brink [facility] SARS-CoV-2 (COVID-19) RNA RICKY+probe Ql (Unsp spec) Not detected Normal NOT DETECTED [facility] Comment on above: Result Comment: This test is not yet approved or cleared by the [place] FDA. When there are no FDA-approved or cleared tests available, and other criteria are met, FDA can make tests available under an emergency access mechanism called an Emergency Use Authorization (EUA). The EUA for this test is supported by the [employer] of Health and Human Service's (HHS's) declaration [...] consistent with SARS-CoV-2. Performed By: #### C VDTB ####[facility] [id number] [place], [place] [address]MwDr. Alexis Brink INFLUENZA A AND B AGon 08-10 INFLUANEGH SEE BELOW Normal [facility] Comment on above: Result Comment: Nega tive for Flu A protein angiten. Infection due to Flu A cannot be ruled out. Flu A angiten in the sample may be below the detection limit of the test. Performed By: #### I NFLUAB ####[facility] [address] [address]Dr. Alexis Brink INFLUBNEGH SEE BELOW Normal [facility] Comment on above: Result Comment: Nega tive for Flu B protein antigen. Infection due to Flu B cannot be ruled out. Flu B antigen in the sample may be below the detection limit of the test. Performed By: #### I NFLUAB ####[facility] [id number] [address]Dr. Alexis Brink INFLUENZA A AG Negative Normal NEGATIVE SEE COMMENT [facility] Comment on above: Performed By: #### I NFLUAB ####[facility] [id number] [place], [place] [address]Dr. Alexis Brink INFLUENZA B AG Negative Normal NEGATIVE SEE COMMENT [facility] Comment on above: Performed By: #### I NFLUAB ####[facility] [id number] [place], [place] [address]DrLainey Brink INTERNAL CONTROLS Within Normal Limits Normal Wi thin Normal Limits [facility] Comment on above: Performed By: #### I NFLUAB ####[facility] [address] [place], [place] [address]DrLainey Brink PROF CHEM 8 (BAS METB)on Anion gap [Moles/Vol] 11.4 mmol/L Normal [facility] Comment on above: Performed By: #### B NARA HSTROPN #### [facility] [address] [place] [address] Dr. Alexis Brink Calcium [Mass/Vol] 8.9 mg/dL Normal 8.5-10.1 [facility] Comment on above: Performed By: #### B NARA HSTROPN #### [facility] [address] [address] [address] Alexis Brink Chloride [Moles/Vol] 102 mmol/L Normal 98-107 [facility] Comment on above: Performed By: #### B NARA HSTROPN #### [facility] [address] [address] [address] Alexis Brink CO2 [Moles/Vol] 28.8 mmol/L Normal 21.0-32.0 [facility] Comment on above: Performed By: #### B MP, HSTROPN #### [facility] [address] [address] [address] Alexis Brikn Creatinine [Mass/Vol] 1.35 mg/dL Critically high 0.70-1.[address] [facility] Comment on above: Performed By: #### B MP, HSTROPN #### [facility] [address] [address] [address] Alexis Brink EGFR-AF ANGOLAN >60 Normal >=60 [facility] Comment on above: Performed By: #### B MP, HSTROPN #### [facility] [address] [address] [address] Alexis Brink EGFR-NON AF ANGOLAN 51 mL/min/1.73m2 Critically low >=[address] [facility] Comment on above: Performed By: #### B MP, HSTROPN #### [facility] [address] [address] [address] Alexis Brink Glucose [Mass/Vol] 109 mg/dL Critically high 74-106 [facility] Comment on above: Performed By: #### B MP, HSTROPN #### [facility] [address] [address] [address] Alexis Brink Potassium [Moles/Vol] 4.2 mmol/L Normal 3.5-5.[address] [facility] Comment on above: Performed By: #### B MP, HSTROPN #### [facility] [address] [address] [address] Alexis Brink Sodium [Moles/Vol] 138 mmol/L Normal 136-145 [facility] Comment on above: Performed By: #### B MP, HSTROPN #### [facility] [address] [address] [address] Alexis Brink Urea nitrogen [Mass/Vol] 18.0 mg/dL Normal 7.0-18.[address] [facility] Comment on above: Performed By: #### B MP, HSTROPN #### [facility] [address] [address] [address] Alexis Brink Urea nitrogen/Creatinin e [Mass ratio] 13.3 mg/mg Normal [facility] Comment on above: Performed By: #### B MP, HSTROPN #### [facility] [address] [address] [address] Alexis Brink TROPONIN, HIGH SENSITIVITYon 08-10-2022 HSTROP 22.2 pg/mL Normal 4.0-76.[address] [facility] Comment on above: Result Comment: CUT- OFF POINTS HAVE BEEN ESTABLISHED BASED ON THE FOURTH UNIVERSAL DEFINITIONS OF MYOCARDIAL INFARCTION. THE UPPER REFERENCE LIMIT (URL) OF TROPONIN, DEFINED THE 99TH PERCENTILE OF cTnI DISTRIBUTION IN A REFERENCE POPULATION, HAS BEEN CONFIRMED THE DECISION THRESHOLD FOR [place] DIAGNOSIS. Performed By: #### B NARA, HSTROPN #### [facility] [address] [place] [address] Dr. Alexis Brink XR CHEST 1 Von [...] RADHA UNDERWOOD Date: 2022-08-10 16:07 Normal [facility] CBC AUTO DIFFon 02-09-2022 BASO # 0.0 103/ul Normal 0.0-0.[address] [facility] Comment on above: Performed By: #### C BC #### [facility] [address] [place] [address] Dr. Alexis Brink Basophils/100 WBC (Bld) 0.6 % Normal 0.2-2.[address] [facility] Comment on above: Performed By: #### C BC #### [facility] [address] [place] [address] Dr. Alexis Brink EO # 0.5 103/ul Normal 0.0-0.[address] [facility] Comment on above: Performed By: #### C BC #### [facility] [address] [place] [address] Dr. Alexis Brink Eosinophils/100 WBC (Bld) 7.2 % Critically high 0.9-7.[address] [facility] Comment on above: Performed By: #### C BC #### [facility] [address] [place] [address] Dr. Alexis Brink Erythrocyte distribution width (RBC) [Ratio] 12.4 % Normal 11.0-15.[address] [facility] Comment on above: Performed By: #### C BC #### [facility] [address] [place] [address] Dr. Alexis Brink Hematocrit (Bld) [Volume fraction] 45.5 % Normal 42.0-54.[address] [facility] Comment on above: Performed By: #### C BC #### [facility] [address] [place] [address] Dr. Alexis Brink Hemoglobin (Bld) [Mass/Vol] 15.4 g/dL Normal 14.0-18.[address] [facility] Comment on above: Performed By: #### C BC #### [facility] [address] [place] [address] Dr. Alexis Brink IG # 0.02 10e3/ul Normal 0.00-0.03 [facility] Comment on above: Performed By: #### C BC #### [facility] [address] [place] [address] Dr. Alexis Brink IG % 0.3 % Normal 0.0-0.5 [facility] Comment on above: Performed By: #### C BC #### [facility] [address] [place] [address] Dr. Alexis Brink LYMPH # 1.3 103/ul Normal 1.2-3.8 [facility] Comment on above: Performed By: #### C BC #### [facility] [address] [place] [address] Dr. Alexis Brink Lymphocytes/100 WBC (Bld) 17.8 % Critically low 20.5-60.[address] [facility] Comment on above: Performed By: #### C BC #### [facility] [address] [place] [address] Dr. Alexis Brink MANUAL DIFF REQ NO Normal [facility] Comment on above: Performed By: #### C BC #### [facility] [address] [place] [address] Dr. Alexis Brink MCH (RBC) [Entitic mass] 31.4 pg Normal 25.9-34.[address] [facility] Comment on above: Performed By: #### C BC #### [facility] [address] [place] [address] Dr. Alexis Brink MCHC (RBC) [Mass/Vol] 33.8 g/dL Normal 29.9-35.[address] [facility] Comment on above: Performed By: #### C BC #### [facility] [address] [place] [address] Dr. Alexis Brink MCV (RBC) [Entitic vol] 92.9 fL Normal 80.0-94.[address] [facility] Comment on above: Performed By: #### C BC #### [facility] [address] [place] [address] Dr. Alexis Brink MONO # 0.7 103/ul Normal 0.3-0.[address] [facility] Comment on above: Performed By: #### C BC #### [facility] [address] [place] [address] Dr. Alexis Brink Monocytes/100 WBC (Bld) 9.6 % Normal 1.7-12.0 [facility] Comment on above: Performed By: #### C BC #### [facility] [address] [place] [address] Dr. Alexis Brink NEUT # 4.6 103/ul Normal 1.4-6.5 [facility] Comment on above: Performed By: #### C BC #### [facility] [address] [place], [place] [address] Dr. Alexis Brink Neutrophils/100 WBC (Bld) 64.5 % Normal 43.0-75.0 [facility] Comment on above: Performed By: #### C BC #### [facility] [address] [place], [place] [address] Dr. Alexis Brink Platelet mean volume (Bld) [Entitic vol] 10.7 fL Normal 9.5-13.5 [facility] Comment on above: Performed By: #### C BC #### [facility] [address] [place], [place] [address] Dr. Alexis Brink PLT 130 103/ul Critically low 150-450 [facility] Comment on above: Performed By: #### C BC #### [facility] [address] [address] [address] Alexis Brink RBC 4.90 106/ul Normal 4.70-6.10 [facility] Comment on above: Performed By: #### C BC #### [facility] [address] [address] [address] Alexis Brink WBC 7.1 103/ul Normal 4.0-11.0 [facility] Comment on above: Performed By: #### C BC #### [facility] [address] [address] Alexis Brink DIRECT LDLon 02-09-2022 Cholesterol in LDL [Mass/Vol] 144 mg/dL Normal [facility] Comment on above: Performed By: #### D LDL, BMP ####[facility] [address] [id number]. Alexis Brink DLDL NORMAL SEE BELOW Normal [facility] Comment on above: Result Comment: <100 mg/dl OPTIMAL 100 - 129 mg/dl NEAR OR ABOVE OPTIMAL 130 - 159 mg/dl BORDERLINE HIGH 160 - 189 mg/dl HIGH >190 mg/dl VERY HIGH Performed By: #### D LDL, BMP ####[facility] [id number] [id number][address] Alexis Brink PROF CHEM 8 (BAS METB)on Anion gap [Moles/Vol] 9.3 mmol/L Normal [facility] Comment on above: Performed By: #### D LDL, BMP #### [facility] [address] [address] [address] Alexis Brink Calcium [Mass/Vol] 8.7 mg/dL Normal 8.5-10.1 [facility] Comment on above: Performed By: #### D LDL, BMP #### [facility] [address] [address] [address] Alexis Brink Chloride [Moles/Vol] 103 mmol/L Normal 98-[address] [facility] Comment on above: Performed By: #### D LDL, BMP #### [facility] [address] [place] [address] Dr. Alexis Brink CO2 [Moles/Vol] 32.1 mmol/L Critically high 21.0-32.[address] [facility] Comment on above: Performed By: #### D LDL, BMP #### [facility] [address] [place] [address] Dr. Alexis Brink Creatinine [Mass/Vol] 1.35 mg/dL Critically high 0.70-1.[address] [facility] Comment on above: Performed By: #### D LDL, BMP #### [facility] [address] [place] [address] Dr. Alexis Brink EGFR-AF ANGOLAN >60 Normal >=60 [facility] Comment on above: Performed By: #### D LDL, BMP #### [facility] [address] [place] [address] Dr. Alexis Brink EGFR-NON AF ANGOLAN 51 mL/min/1.73m2 Critically low >=60 [facility] Comment on above: Performed By: #### D LDL, BMP #### [facility] [address] [place] [address] Dr. Alexis Brink Glucose [Mass/Vol] 90 mg/dL Normal 74-106 [facility] Comment on above: Performed By: #### D LDL, BMP #### [facility] [address] [place] [address] Dr. Alexis Brink Potassium [Moles/Vol] 4.4 mmol/L Normal 3.5-5.[address] [facility] Comment on above: Performed By: #### D LDL, BMP #### [facility] [address] [place] [address] Dr. Alexis Brink Sodium [Moles/Vol] 140 mmol/L Normal 136-145 [facility] Comment on above: Performed By: #### D LDL, BMP #### [facility] [address] [place] [address] Dr. Alexis Brink Urea nitrogen [Mass/Vol] 16.0 mg/dL Normal 7.0-18.[address] [facility] Comment on above: Performed By: #### D LDL, BMP #### [facility] [address] [place] [address] Dr. Alexis Brink Urea nitrogen/Creatinin e [Mass ratio] 11.9 mg/mg Normal [facility] Comment on above: Performed By: #### D LDL, BMP #### [facility] [address] [place] [address] Dr. Alexis Brink UA RANDOMon 02-09-2022 Bilirubin Ql (U) Negative Normal NEGATIVE [facility] Comment on above: Performed By: #### U A #### [facility] [address] [place] [address] Dr. Alexis Brink Clarity (U) CLEAR Normal CLEAR [facility] Comment on above: Performed By: #### U A #### [facility] [address] [place] [address] Dr. Alexis Brink Color (U) YELLOW Normal YELLOW [facility] Comment on above: Performed By: #### U A #### [facility] [address] [place] [address] Dr. Alexis Brink Glucose Ql (U) Negative Normal NEGATIVE [facility] Comment on above: Performed By: #### U A #### [facility] [address] [place] [address] Dr. Alexis Brink Hemoglobin Ql (U) Negative Normal NEGATIVE [facility] Comment on above: Performed By: #### U A #### [facility] [address] [address] [address] Alexis Brink Ketones Ql (U) Negative Normal NEGATIVE [facility] Comment on above: Performed By: #### U A #### [facility] [address] [place] [address] Dr. Alexis Brink LEUKOCYTES Negative Normal NEGATIVE [facility] Comment on above: Performed By: #### U A #### [facility] [address] [place] [address] Dr. Alexis Brink Nitrite Ql (U) Negative Normal NEGATIVE [facility] Comment on above: Performed By: #### U A #### [facility] [address] [place] [address] Dr. Alexis Brink pH (U) 7.0 [pH] Normal 5-[address] [facility] Comment on above: Performed By: #### U A #### [facility] [address] [place] [address] Dr. Alexis Brink SPEC GRAVITY 1.015 Normal 1.005-<=1.025 [facility] Comment on above: Performed By: #### U A #### [facility] [address] [place] [address] Dr. Alexis Brink UA PROTEIN Negative Normal NEGATIVE/ TRACE [facility] Comment on above: Performed By: #### U A #### [facility] [address] [place] [address] Dr. Alexis Brink Urobilinogen Qn (U) 1.0 {Kay'U}/dL Normal 0.2 - 1.[address] [facility] Comment on above: Performed By: #### U A #### [facility] [address] [place] [address] Dr. Alexis Brink XR CHEST 2 Von [...] without consolidation or effusion. Electronically authenticated by: DELISAELISE CHANDAN Date: 2021-12-06 15:[address] [facility] Nonvisit Note - PTon 018 Nonvisit Note - PT Cert letter refaxed for signature this date - third and final attempt. Normal [facility] Nonvisit Note - PTon 018 Nonvisit Note - PT Cert letter refaxed to Dr Gooden's office. Second attempt. Normal [facility] Coding Summary.on 01-25-2018 Coding Summary. CODING DATE: 01/25/2018 FINAL [facility] STATUS: PAYOR: Medicare ADMIT DX: REASON [...] Dominique Pendleton Date Saved: 01/25/2018 10:54 am [facility] Coding Summary. CODING DATE: 01/25/2018 [facility] STATUS: PAYOR: Medicare ADMIT DX: REASON FOR [...] Dominique Pendleton Date Saved: 01/25/2018 10:54 am [facility] SURGICAL PATHOLOGYon 018 SURGICAL PATHOLOGY [id number] Physician: BETH GOODEN MD FINAL DIAGNOSISRight hip, [...] to 8.5 x 8.5 x 1.8 cm. [employer] Attendant sectionsare submitted as follows: A1 soft tissue, A2 bone submitted afterdecalcification.B Юлия/lachelle 01/01/2018 Gross examination performed at [facility], [address] [place] [id number] of Report: 01/07/2018Date of Procedure: 01/01/2018Date of Receipt: 01/01/2018Submitted by: BETH GOODEN MDLocation: [id number] interpretation performed at [facility], [address] [place] [id number]. Normal [facility] Comment on above: Performed By: #### S ####See report for performing lab information. Vital Signs Date Time Vital Sign Value Performing Clinician Facility 01-22-2024 09:16-0400 Body height 167.64 cm [facility] 01-22-2024 09:16-0400 Body mass index (BMI) [Ratio] 29.3 kg/m2 [facility] 01-22-2024 09:16-0400 Body weight 82.55 kg [facility] 01-22-2024 09:16-0400 Diastolic blood pressure 72 mm[Hg] [facility] 01-22-2024 09:16-0400 Heart rate 64 /min [facility] 01-22-2024 09:16-0400 Respiratory rate 20 /min [facility] 01-22-2024 09:16-0400 Systolic blood pressure 131 mm[Hg] [facility] 09-28-2023 11:00-0500 Body height 167.64 cm Cecilio Ball Other [facility] Other 09-28-2023 11:00-0500 Body mass index (BMI) [Ratio] 30.24 kg/m2 Cecilio Ball Other [facility] Other 09-28-2023 11:00-0500 Body weight 85 kg Cecilio Ball Other [facility] Other 09-28-2023 11:00-0500 Respiratory rate 20 /min Cecilio Ball Other [facility] Other 09-28-2023 11:00-0500 SaO2% (BldA) [Mass fraction] 97 % Cecilio Ball Other [facility] Other 09-11-2023 10:45-0500 Body height 167.64 cm Cecilio Ball Other [facility] Other 09-11-2023 10:45-0500 Body mass index (BMI) [Ratio] 29.86 kg/m2 Cecilio Ball Other [facility] Other 09-11-2023 10:45-0500 Body temperature 97.5 [degF] Cecilio Ball Other [facility] Other 09-11-2023 10:45-0500 Body weight 83.92 kg Cecilio Ball Other [facility] Other 09-11-2023 10:45-0500 Diastolic blood pressure 81 mm[Hg] Cecilio Ball Other [facility] Other 09-11-2023 10:45-0500 Respiratory rate 20 /min Cecilio Ball Other [facility] Other 09-11-2023 10:45-0500 SaO2% (BldA) [Mass fraction] 98 % Cecilio Ball Other [facility] Other 09-11-2023 10:45-0500 Systolic blood pressure 161 mm[Hg] Cecilio Ball Other [facility] Other 08-01-2023 10:15-0500 Body height 167.64 cm Cecilio Ball Other [facility] Other 08-01-2023 10:15-0500 Body mass index (BMI) [Ratio] 29.86 kg/m2 Cecilio Ball Other [facility] Other 08-01-2023 10:15-0500 Body weight 83.92 kg Cecilio Ball Other [facility] Other 08-01-2023 10:15-0500 Diastolic blood pressure 79 mm[Hg] Cecilio Ball Other [facility] Other 08-01-2023 10:15-0500 Respiratory rate 20 /min Cecilio Ball Other [facility] Other 08-01-2023 10:15-0500 Systolic blood pressure 172 mm[Hg] Cecilio Ball Other [facility] Other 07-17-2023 10:15-0500 Body height 167.64 cm Cecilio Ball Other [facility] Other 07-17-2023 10:15-0500 Body mass index (BMI) [Ratio] 29.89 kg/m2 Cecilio Ball Other [facility] Other 07-17-2023 10:15-0500 Body weight 84.01 kg Cecilio Ball Other [facility] Other 07-17-2023 10:15-0500 Diastolic blood pressure 78 mm[Hg] Cecilio Ball Other [facility] Other 07-17-2023 10:15-0500 Respiratory rate 20 /min Cecilio Ball Other [facility] Other 07-17-2023 10:15-0500 Systolic blood pressure 172 mm[Hg] Cecilio Ball Other [facility] Other 07-10-2023 14:45-0500 Body height 167.64 cm Cecilio Ball Other [facility] Other 07-10-2023 14:45-0500 Body mass index (BMI) [Ratio] 29.47 kg/m2 Cecilio Ball Other [facility] Other 07-10-2023 14:45-0500 Body weight 82.83 kg Cceilio Ball Other [facility] Other 07-10-2023 14:45-0500 Diastolic blood pressure 80 mm[Hg] Cecilio Ball Other [facility] Other 07-10-2023 14:45-0500 Respiratory rate 20 /min Cecilio Ball Other [facility] Other 07-10-2023 14:45-0500 Systolic blood pressure 150 mm[Hg] Cecilio Ball Other [facility] Other 06-20-2023 08:30-0400 Body height 167.64 cm Cecilio Ball Other [facility] Other 06-20-2023 08:30-0400 Body mass index (BMI) [Ratio] 29.6 kg/m2 Cecilio Ball Other [facility] Other 06-20-2023 08:30-0400 Body weight 83.19 kg Cecilio Ball Other [facility] Other 06-20-2023 08:30-0400 Diastolic blood pressure 76 mm[Hg] Cecilio Ball Other [facility] Other 06-20-2023 08:30-0400 Respiratory rate 20 /min Cecilio Ball Other [facility] Other 06-20-2023 08:30-0400 Systolic blood pressure 157 mm[Hg] Cecilio Ball Other [facility] Other 05-30-2023 13:45-0400 Body height 167.64 cm Cecilio Ball Other [facility] Other 05-30-2023 13:45-0400 Body mass index (BMI) [Ratio] 28.95 kg/m2 Cecilio Ball Other [facility] Other 05-30-2023 13:45-0400 Body weight 81.38 kg Cecilio Ball Other [facility] Other 05-30-2023 13:45-0400 Diastolic blood pressure 78 mm[Hg] Cecilio Ball Other [facility] Other 05-30-2023 13:45-0400 Respiratory rate 16 /min Cecilio Ball Other [facility] Other 05-30-2023 13:45-0400 Systolic blood pressure 158 mm[Hg] Cecilio Ball Other [facility] Other 02-14-2023 08:30-0400 Body height 167.64 cm Cecilio Ball Other [facility] Other 02-14-2023 08:30-0400 Body mass index (BMI) [Ratio] 28.57 kg/m2 Cecilio Ball Other [facility] Other 02-14-2023 08:30-0400 Body weight 80.29 kg Cecilio Ball Other [facility] Other 02-14-2023 08:30-0400 Diastolic blood pressure 80 mm[Hg] Cecilio Ball Other [facility] Other 02-14-2023 08:30-0400 Respiratory rate 16 /min Cecilio Ball Other [facility] Other 02-14-2023 08:30-0400 Systolic blood pressure 135 mm[Hg] Cecilio Ball Other [facility] Other 02-01-2023 08:15-0400 Body height 167.64 cm Jose Enrique Leblanc II Other [facility] Other 02-01-2023 08:15-0400 Body mass index (BMI) [Ratio] 27.44 kg/m2 Jose Enrique Pershing II Other [facility] Other 02-01-2023 08:15-0400 Body weight 77.11 kg Jose Enrique Benji II Other [facility] Other 12-11-2022 10:30-0400 Body height 167.64 cm Cecilio Ball Other [facility] Other 12-11-2022 10:30-0400 Body mass index (BMI) [Ratio] 28.66 kg/m2 Cecilio Ball Other [facility] Other 12-11-2022 10:30-0400 Body weight 80.56 kg Cecilio Ball Other [facility] Other 12-11-2022 10:30-0400 Diastolic blood pressure 76 mm[Hg] Cecilio Ball Other [facility] Other 12-11-2022 10:30-0400 Respiratory rate 12 /min Cecilio Ball Other [facility] Other 12-11-2022 10:30-0400 Systolic blood pressure 151 mm[Hg] Cecilio Ball Other [facility] Other 11-09-2022 16:00-0400 Body mass index (BMI) [Ratio] 29.21 kg/m2 Jose Enrique Landersisle II Other [facility] Other 11-09-2022 16:00-0400 Body weight 82.1 kg Jose Enrique Pershing II Other [facility] Other 11-09-2022 10:30-0400 Body height 167.64 cm Cecilio Ball Other [facility] Other 11-09-2022 10:30-0400 Body mass index (BMI) [Ratio] 29.23 kg/m2 Cecilio Ball Other [facility] Other 11-09-2022 10:30-0400 Body weight 82.15 kg Cecilio Ball Other [facility] Other 11-09-2022 10:30-0400 Diastolic blood pressure 79 mm[Hg] Cecilio Ball Other [facility] Other 11-09-2022 10:30-0400 Respiratory rate 20 /min Cecilio Ball Other [facility] Other 11-09-2022 10:30-0400 Systolic blood pressure 152 mm[Hg] Cecilio Ball Other [facility] Other 10-12-2022 10:00-0500 Body height 167.64 cm Cecilio Ball Other [facility] Other 10-12-2022 10:00-0500 Body mass index (BMI) [Ratio] 29.24 kg/m2 Cecilio Ball Other [facility] Other 10-12-2022 10:00-0500 Body weight 82.19 kg Cecilio Ball Other [facility] Other 10-12-2022 10:00-0500 Diastolic blood pressure 70 mm[Hg] Cecilio Ball Other [facility] Other 10-12-2022 10:00-0500 Respiratory rate 12 /min Cecilio Ball Other [facility] Other 10-12-2022 10:00-0500 Systolic blood pressure 102 mm[Hg] Cecilio Ball Other [facility] Other Encounters Encounter Date Encounter Type Care Provider Facility Start: 01-28-2024 End: 01-28-2024 ambulatory Maddie Villalobos MD Facility: [facility] Start: 01-22-2024 End: 01-22-2024 ambulatory [facility] Work Phone: Start: 01-22-2024 End: 01-22-2024 Patient encounter procedure [facility] Work Phone: Start: 10-30-2023 Non-patient / Non-visit [facility] [employer] Work Phone: Start: 09-28-2023 End: 09-28-2023 ambulatory Cecilio Ball Other [facility] Other Start: 09-28-2023 Office outpatient vi sit 15 minutes Cecilio Ball [facility] Start: 09-28-2023 Telephone encounter Cecilio Ball [facility] Start: 09-21-2023 End: 09-21-2023 ambulatory Cecilio Ball Other [facility] Other Start: 09-21-2023 Telephone encounter Cecilio Ball [facility] Start: 09-11-2023 End: 09-11-2023 ambulatory Cecilio Ball Other [facility] Other Start: 09-11-2023 Office outpatient vi sit 15 minutes Cecilio Ball [facility] Start: 09-11-2023 Telephone encounter Cecilio Ball [facility] Start: 09-03-2023 End: 09-03-2023 ambulatory Cecilio Ball Other [facility] Other Start: 09-03-2023 Telephone encounter Cecilio Ball [facility] Start: 08-03-2023 End: 08-03-2023 ambulatory Cecilio Ball Other [facility] Other Start: 08-03-2023 Telephone encounter Cecilio Ball [facility] Start: 08-01-2023 End: 08-01-2023 ambulatory Cecilio Ball Other [facility] Other Start: 08-01-2023 Office outpatient vi sit 15 minutes Cecilio Ball [facility] Start: 07-17-2023 End: 07-17-2023 ambulatory Cecilio Ball Other [facility] Other Start: 07-17-2023 Office outpatient vi sit 15 minutes Cecilio Ball [facility] Start: 07-10-2023 End: 07-10-2023 ambulatory Cecilio Ball Other [facility] Other Start: 07-10-2023 Office outpatient vi sit 15 minutes Cecilio Ball [facility] Start: 06-20-2023 End: 06-20-2023 ambulatory Cecilio Ball Other [facility] Other Start: 06-20-2023 Office outpatient vi sit 25 minutes Cecilio Ball [facility] Start: 06-15-2023 End: 06-15-2023 ambulatory Cecilio Ball Other [facility] Other Start: 06-15-2023 Telephone encounter Cecilio Benjamin [facility] Start: 05-30-2023 End: 05-30-2023 ambulatory Cecilio Ball Other [facility] Other Start: 05-30-2023 Office outpatient vi sit 15 minutes Cecilio Ball [facility] Start: 03-20-2023 Telephone encounter David Jaeger DO Work Phone: [facility] Comment on above: Follow Up Phone Call Start: 03-15-2023 End: 03-15-2023 ambulatory DAVID JAEGER Facility:[facility] Start: 02-27-2023 Orders Only David Marcos DO Work Phone: Procedures Comment on above: Pseudoclaudication s yndrome (Primary Dx); Lumbar radiculopathy Start: 02-26-2023 Telephone encounter David Jaeger DO Work Phone: [facility] Comment on above: Procedure Start: 02-19-2023 Telephone encounter David Jaeger DO Work Phone: [facility] Comment on above: Appointment Start: 02-14-2023 End: 02-14-2023 ambulatory Cecilio Benjamin Other [facility] Other Start: 02-14-2023 Patient encounter procedure Cecilio Benjamin [facility] Start: 02-13-2023 End: 02-13-2023 ambulatory Cecilio Benjamin Other [facility] Other Start: 02-13-2023 Telephone encounter Cecilio DENISE [facility] Start: 02-08-2023 End: 02-08-2023 ambulatory Cecilio Benjamin Other [facility] Other Start: 02-08-2023 Telephone encounter Cecilio DENISE [facility] Start: 02-01-2023 End: 02-01-2023 ambulatory Jose Enrique Leblanc II Other [facility] Other Start: 02-01-2023 Office outpatient vi sit 25 minutes Jose Enrique Leblanc II [facility] Start: 12-11-2022 End: 12-11-2022 ambulatory Cecilio Benjamin Other [facility] Other Start: 12-11-2022 Office outpatient vi sit 15 minutes Cecilio Benjamin [facility] Start: 11-09-2022 End: 11-09-2022 ambulatory Jose Enrique Leblanc II Facility:[facility] Start: 11-09-2022 End: 11-09-2022 Patient encounter procedure MD Jose Enrique Leblanc II Work Phone: [facility] Start: 11-09-2022 End: 11-09-2022 ambulatory MD Jose Enrique Leblanc II Work Phone: [facility] Work Phone: Start: 11-09-2022 Office outpatient ne w 45 minutes Jose Enrique Leblanc II [facility] Start: 11-09-2022 Office outpatient vi sit 15 minutes Cecilio Benjamin [facility] Start: 11-05-2022 End: 11-05-[address] CECILIO BENJAMIN Facility:[facility] Start: 10-12-2022 End: 10-12-2022 ambulatory Cecilio Benjamin Other [facility] Other Start: 10-12-2022 Office outpatient vi sit 25 minutes Cecilio Benjamin [facility] Start: 09-27-2022 End: 09-27-2022 ambulatory Cecilio Benjamin Other [facility] Other Start: 09-27-2022 Telephone encounter Cecilio [facility] Start: 09-26-2022 End: 09-27-[address] CECILIO BENJAMIN Facility:[facility] Start: 08-25-2022 End: 08-25-2022 ambulatory Cecilio Benjamin Other [facility] Other Start: 08-25-2022 Telephone encounter Cecilio Benjamin [facility] Start: 08-10-2022 End: 08-10-[address] CECILIO BENJAMIN Facility:[facility] Start: 02-09-2022 End: 02-10-[address] CECILIO BENJAMIN Facility:[facility] Start: 12-06-2021 End: 12-07-[address] CECILIO BENJAMIN Facility:[facility] Start: 01-22-2018 End: 04-20-2018 Patient encounter [id number] AUGUSTINE BENJAMIN [place] [place] Date Procedure Procedure Detail Performing Clinician Start: 11-09-2022 Pelvis X-ray MD Jose Enrique Leblanc II Work Phone: Start: 11-09-2022 Radiologic examinati on of knee MD Jose Enrique Leblanc II Work Phone: Plan of Treatment Date Care Activity Detail Author Start: 01-22-2024 Patient referral [facility] Work Phone: Start: 04-20-2023 Influenza vaccination INFLUENZA (#1) [facility] Start: 10-01-2022 COVID-19 VACCINE (5 - Moderna series) COVID-19 VACCINE (5 - Moderna series) [facility] Start: 08-20-2022 ADVANCE DIRECTIVE DISCUSSION ADVANCE DIRECTIVE DISCUSSION [facility] Start: 08-20-2022 DEPRESSION ASSESSMENT DEPRESSION ASS ESSMENT [facility] Start: 09-19-2021 COVID-19 VACCINE (4 - Booster for Moderna series) COVID-19 VACCINE (4 - Booster for Moderna series) [facility] Start: 09-19-2021 COVID-19 VACCINE (4 - Moderna series) COVID-19 VACCINE (4 - Moderna series) [facility] Start: 01-02-2021 DIABETES SCREEN DIABETES SCREEN [facility] Start: 1991 SHINGRIX VACCINE (1 of 2) SHINGRIX VACCINE (1 of 2) [facility] Start: 1960 Urine microalbumin profile DTAP,TDAP,TD (1 - Tdap) [facility] Start: 1959 SPIROMETRY SPIROMETRY [facility] Start: 1947 PNEUMOCOCCAL: 65+ (1 - PCV) PNEUMOCOCCAL: 65+ (1 - PCV) [facility] Comprehensive metabo lic 2000 panel - Serum or Plasma [facility] Patient referral [facility] Work Phone: SPINE INTERVENTION PROCEDURE SPINE INTERVENTION PROCEDURE Procedures Routine Spinal stenosis, lumbar region with neurogenic claudication Lumbar radiculopathy, chronic Ordered: 02/19/2023 [facility] Work Phone: Comment on above: Ordered: 02/19/2023 [facility] Immunizations Immunization Date Immunization Notes Care Provider Fa cility 05-30-2023 COVID-19 Vaccine Moderna - Documentation Purposes Only Cecilio Benjamin Other [facility] 05-30-2023 influenza virus vaccine, unspecified formulation [facility] 05-30-2023 influenza, high dose seasonal, preservative-free Cecilio Benjamin Other [facility] Other 06-13-2022 influenza virus vaccine, split virus (incl. purified surface antigen) Cecilio Benjamin Other [facility] Other 06-13-2022 influenza virus vaccine, unspecified formulation [facility] 06-13-2022 influenza, high dose seasonal, preservative-free Jose Enrique Benji II Other [facility] Other 05-31-2022 COVID-19 Pfizer (bivalent) Jose Enrique Pershing II Other [facility] 05-31-2022 COVID-19 Pfizer (Pediatric) Cecilio Benjamin Other [facility] 07-25-2021 COVID-19 Vaccine Moderna - Documentation Purposes Only Jose Enrique Benji II Other [facility] 05-03-2021 zoster vaccine recombinant Jose Enrique Pershing II Other [facility] 05-03-2021 zoster vaccine, live Benjami n Ball Other [facility] 01-28-2021 zoster vaccine recombinant Jose Enrique Benji II Other [facility] 01-28-2021 zoster vaccine, live Benjami n Ball Other [facility] 10-25-2020 COVID-19 Vaccine Moderna - Documentation Purposes Only Jose Enrique Pershing II Other [facility] 09-27-2020 COVID-19 Vaccine Moderna - Documentation Purposes Only Jose Enrique Pershing II Other [facility] 05-24-2020 influenza virus vaccine, split virus (incl. purified surface antigen) Cecilio Benjamin Other [facility] Other 05-24-2020 influenza virus vaccine, unspecified formulation [facility] 01-03-2019 diphtheria, tetanus toxoids and acellular pertussis vaccine, unspecified formulation Cecilio Benjamin Other [facility] 12-25-2018 pneumococcal polysaccharide vaccine, 23 valent Jose Enrique Pershing II Other [facility] 04-30-2018 influenza virus vaccine, split virus (incl. purified surface antigen) Cecilio Benjamin Other [facility] Other 04-30-2018 influenza virus vaccine, unspecified formulation [facility] 04-09-2017 influenza virus vaccine, split virus (incl. purified surface antigen) Cecilio Benjamin Other [facility] Other 04-09-2017 influenza virus vaccine, unspecified formulation [facility] 05-31-2016 zoster vaccine, live Jose Enrique Benji II Other [facility] 05-13-2016 influenza virus vaccine, split virus (incl. purified surface antigen) Cecilio Benjamin Other [facility] Other 05-13-2016 influenza virus vaccine, unspecified formulation [facility] 05-09-2015 influenza virus vaccine, split virus (incl. purified surface antigen) Cecilio Benjamin Other [facility] Other 05-09-2015 influenza virus vaccine, unspecified formulation [facility] 03-06-2015 pneumococcal conjuga te vaccine, 13 valent Jose Enrique Benji II Other [facility] 05-07-2014 tetanus and diphther ia toxoids, adsorbed, preservative free, for adult use (5 Lf of tetanus toxoid and 2 Lf of diphtheria toxoid) Cecilio Benjamin Other [facility] 04-23-2013 tetanus and diphther ia toxoids, adsorbed, preservative free, for adult use (5 Lf of tetanus toxoid and 2 Lf of diphtheria toxoid) Cecilio Benjamin Other [facility] 08-21-2012 pneumococcal polysaccharide vaccine, 23 valent Cecilio Benjamin Other [facility] 12-12-2011 zoster vaccine, live Jose Enrique Benji II Other [facility] Payers Date Payer Category Payer Self-pay 2022 Unknown [id number] 2018 Medicare [id number] 2006 Medicare [id number] 2006 Unknown [id number] 1959 Medicare [id number] 2.1 [id number] 1959 Unknown [id number] 2.16. [id number] 1941 Unknown [id number] 2.16.84 [id number] 1941 Unknown [id number] 2.16.84 [id number] 1941 Unknown [id number] 2.16.84 [id number] 1941 Unknown [id number] 2.16.84 [id number] 1941 Unknown [id number] 2.16.84 [id number] 1941 Unknown [id number] 2.16. [id number] Unknown [id number] 2.16.8 [id number] Social History Date Type Detail Facility Start: 05-09-2021 End: 03-15-2023 Sex Assigned At [facility] Start: 1940 Sex Assigned At Male F [facility] Start: 06-13-2017 End: 01-22-2024 Tobacco smoking status NHIS Never smoked tobacco [facility] Start: 06-13-2017 Tobacco use and exposure Smokeless tobacco non-user [facility] Start: 05-09-2021 Alcohol intake Current drinke r of alcohol (finding) [facility] Start: 12-11-2017 Alcohol Comment [facility] in coffee [facility] Start: 1940 Sex Assigned At Not on file C [facility] Start: 05-09-2021 End: 03-15-2023 History of Social function [facility] Adult Depression Screening Assessment 1 [facility] Medical Equipment Procedure Code Equipment Code Equipment Origin al Text Equipment Identifier Dates [place] Swivelock Tenodesis 8mm Biocomposite 19.5mm Suture [place] Eyelet - [id number] Start: 06-29-2017 Sleeve V40 +0mm Offset [place] Taper Titanium Adapter Hip - [id number] Start: 01-01-2018 Screw [employer] Secur-Fit Torx 6.5mm Titanium 20mm Bone Sterile Acetabular - [id number] Start: 01-01-2018 Clinical Notes 08-25-2022 to 01-22-2024 Note Date & Type Note Facility 01-22-2024 Evaluation note Diagnosis Onset Date Chronic bronchitis, simple a cute Chronic kidney disease, stage 3a acute Elevated cholesterol acute Generalized anxiety disorder acute Hypertension acute Lumbar spondylolysis acute Obstructive sleep apnea acut e Medicare annual wellness visit, subsequent noneactive [facility] Work Phone: [phone]) 662-380002-09-2024 Evaluation note* Encounter Date Diagnosis Assessment Notes Treatment Notes Treatment Clinical Notes Sep, Acute bronchitis due to other specified organisms (ICD-10 - J20.8) Completed antibiotics No further antibiotics recommended. Respiratory symptoms lingering but expected due to his underlying chronic lung disease Sep, Chronic obstructive pulmonary disease with (acute) exacerbation (ICD-10 - J44.1) Finished steroids and stopped HHN. He will need to continue HHN at least every morning for next couple weeks. I explained that the mucous and coughing may take several weeks to clear As long as he is afebrile and clinically improving, no further treatment necessary [facility] Other 02-02-2024 Evaluation note* Encounter Date Diagnosis Assessment Notes Treatment Notes Treatment Clinical Notes Sep, Carotid bruit, unspecified laterality (ICD-10 - R09.89) [facility] Other 01-23-2024 Evaluation note* Encounter Date Diagnosis [...] tid Initiate Prednisone _update office on Sunday [facility] Other 01-15-2024 Evaluation note* Encounter Date Diagnosis Assessment Notes Treatment Notes Treatment Clinical Notes Aug, JONATHAN (generalized anxiety disorder) (ICD-10 - F41.1) [facility] Other 12-13-2023 Evaluation note* Encounter Date Diagnosis [...] best 2/3 readings w/ goal < 135/85 [facility] Other 11-28-2023 Evaluation note* Encounter Date Diagnosis [...] daily for blisters and ulcerations. Moisturizers daily [facility] Other 11-21-2023 Evaluation note* Encounter Date Diagnosis Assessment Notes Treatment Notes Treatment Clinical Notes Jun, Multiple abrasions (ICD-10 - T07.XXXA) Cleans w/ soap and water daily Mupirocin bid until ulcerations resolve Jun, Abrasion of right ankle, initial encounter (ICD-10 - S90.511A) Protect area from friction. Keep open to air unless irritated or draining Jun, Cellulitis of right lower extremity (ICD-10 - L03.115) Rest and elevate. Begin antibiotics Call if develop increased pain or erythema [facility] Other 11-01-2023 Evaluation note* Encounter Date Diagnosis [...] use, the patient reduces the risk for [place], CVA, HTN, cardiac dysrhythmias and sudden cardiac [...] very active. No change in medical treatment [facility] Other 10-27-2023 Evaluation note* Encounter Date Diagnosis Assessment Notes Treatment Notes Treatment Clinical Notes May, JONATHAN (generalized anxiety disorder) (ICD-10 - F41.1) [facility] Other 10-11-2023 Evaluation note* Encounter Date Diagnosis [...] They may safely use Tylenol as needed. [facility] Other 08-01-2023 Miscellaneous Notes* Telephone Encounter - Neida Caballero MA - 03/20/2023 12:26 PM EDT DATE OF SERVICE: 03/15/2023 PATIENT'S PHONE NUMBERS: [phone] (home) OR [email or web address]@ PROVIDER: Dr. Jaeger PROCEDURE: Elective Pain Management Procedure Left message on machine Asked pt to call back and speak with the specialty triage nurse with update. Please obtain percentage better and the duration of improvement. Please inquire if there were any problems afterwards. Neida Brink documented in [facility] encounter[facility] Miscellaneous Notes* Telephone Encounter - Linda Knox LPN - 02/26/2023 4:42 PM EDT Spoke to patient in reguards to pre procedure instructions. Pt must have a local bulk driver. Pt advised to arrive 30 min [...] okay to take. Advised on location of [facility] Pt will receive a follow up call several days after by a wall steamer. If you experience any increase in weakness, difficulty walking or significant increase in pain thatlast more than 4 hours, please proceed to the Emergency Room and tell them you had a spine procedure done recently. Additionally, call us and notify us of these symptoms. Please call [phone] if you have any questions. Pt verbalized understanding. documented in this encounterM[facility]07-03-2023 Miscellaneous Notes* Telephone Encounter - Linda Knox LPN - 02/19/2023 11:57 AM EDT Order approved Spoke to daughter in reguards to pre procedure instructions. Daughter given scheduling number [phone] Pt must have a local bulk driver. Pt advised to arrive 30 min prior to the time given by the corporate scheduler. Pt advised will also receive a call the day before from the surgery center to confirm date/time. Pt can eat and drink as normal. and Pt can take medications as normal. No alcohol 24 hours prior. Pt is on ASA.- 81 mg okay to take. and must Advised on location of [facility] [address] [facility] Pt will receive a follow up call several days after by a wall steamer. If you experience any increase in weakness, difficulty walking or significant increase in pain thatlast more than 4 hours, please proceed to the Emergency Room and tell them you had a spine procedure done recently. Additionally, call us and notify us of these symptoms. Please call [phone] if you have any questions. Pt verbalized understanding. * Telephone Encounter - Linda Knox LPN - 02/19/2023 9:43 AM EDT Spine Intervention order formatted for review * Telephone Encounter - Camilla Frost - 02/19/2023 9:18 AM EDT Ruperto Thorpe [...] call Celi as patient cannot hear well [phone] Patient has been identified by name and birthdate. Duration of symptoms: N/A Person calling: daughter: Celi Call patient at: N/A [phone] (home) [phone] (cell) Was an appointment scheduled: No Closing statement: Results or non-symptom based questions: Thank you for calling [facility], your call will be returned within the next business day. Camilla Jarrell Pss documented in this encounterMarietta [facility] Hospital06-28-2023 Evaluation note* Encounter Date Diagnosis Assessment [...] use, the patient reduces the risk for [place], CVA, HTN, cardiac dysrhythmias and sudden cardiac [...] (ICD-10 - F41.1) Healthy diet, keep active [facility] Other 06-22-2023 Evaluation note* Encounter Date Diagnosis Assessment Notes Treatment Notes Treatment Clinical Notes Jan, Elevated cholesterol (ICD-10 - E78.00) Jan, Stage 3a chronic kidney disease (ICD-10 - N18.31) Jan, Primary hypertension (ICD-10 - I10) Jan, Screening PSA (prostate specific antigen) (ICD-10 - Z12.5) Jan, High risk medication use (ICD-10 - Z79.899) [facility] Other 06-15-2023 Evaluation note* Encounter Date Diagnosis [...] this time 6. Follow up as needed [facility] Other 04-24-2023 Evaluation note* Encounter Date Diagnosis [...] use of statin, experiencing ADR and stopped [facility] Other 03-23-2023 Evaluation note* Encounter Date Diagnosis [...] - M17.12) Quad exercises, ice/heat and Tylenol [facility] Other 03-23-2023 Evaluation note* Encounter Date Diagnosis [...] injection well. 6. Follow up as needed [facility] Other 02-23-2023 Evaluation note* Encounter Date Diagnosis [...] use, the patient reduces the risk for [place], CVA, HTN, cardiac dysrhythmias and sudden cardiac [...] tract symptoms (ICD-10 - N40.1) Symptoms tolerable [facility] Other 02-08-2023 Evaluation note* Encounter Date Diagnosis Assessment Notes Treatment Notes Treatment Clinical Notes Sep, Elevated cholesterol (ICD-10 - E78.00) Sep, Stenosis of right carotid artery (ICD-10 - I65.21) Sep, Retinal hemorrhage of right eye (ICD-10 - H35.61) [facility] Other 01-06-2023 Evaluation note* Encounter Date Diagnosis Assessment Notes Treatment Notes Treatment Clinical Notes Aug, Carotid bruit, unspecified laterality (ICD-10 - R09.89) [facility] Other Evaluation noteNo assessment information available [facility] Work Phone: Evaluation noteNo InformationNort [facility] Other Evaluation note* Diagnosis Spinal stenosis, lumbar region with neurogenic claudication- Primary Lumbar radiculopathy, chronic Thoracic or lumbosacral neuritis or radiculitis, unspecified documented in this encounter [facility] [place] [facility]* Diagnosis Pseudoclaudication syndrome- Primary Spinal stenosis, lumbar region, with neurogenic claudication Lumbar radiculopathy Thoracic or lumbosacral neuritis or radiculitis, unspecified Pseudoclaudication syndrome Spinal stenosis, lumbar region, with neurogenic claudication Lumbar radiculopathy Thoracic or lumbosacral neuritis or radiculitis, unspecified documented in this encounter [facility] Narrative - Reported* Type Description Date [...] JANELLE 06/2017 Hospitalization History see surgical history [facility] Other Hospital Discharge instructionsAmbulatory Orders* Referral to Pain Management Location: None Selected [facility] Work Phone: Summary Purpose Family History No Family History Records Found Relationship Condition Age at Onset Recorded Date/T niru father Unknown Advance Directives No Advanced Directives Records Found Advance Directive Response Recorded Date/ Time Advance Directives No January 21 9:53am Chief Complaint and Reason for Visit Chief Complaint Amb Documentation 3 month follow up Reason for Visit Chronic bronchitis, simple Chronic kidney disease, stage 3a Elevated cholesterol Generalized anxiety disorder Hypertension Lumbar spondylolysis Obstructive sleep apnea Medicare annual wellness visit, subsequent Additional Source Comments (unrecognized sect ion and content) No Status Records FoundNo Status Records FoundNo Status Records FoundNo Status Records FoundNo Status Records FoundNo Status Records FoundNo Status Records Found INFORMATION SOURCE (unrecogn ized section and content) DATE CREATED AUTHOR 02/06/2018 [facility] DATE CREATED AUTHOR AUTHOR'S ORGANIZ ATION 06/10/2018 [facility] DATE CREATED AUTHOR AUTHOR'S ORGANIZ ATION 11/06/2022 [facility] DATE CREATED AUTHOR AUTHOR'S ORGANIZ ATION 12/21/2022 [facility] DATE CREATED AUTHOR AUTHOR'S ORGANIZ ATION 03/15/2023 [facility] DATE CREATED AUTHOR AUTHOR'S ORGANIZ ATION 03/22/2023 [facility] DATE CREATED AUTHOR AUTHOR'S ORGANIZ ATION 02/06/2024 [facility] REASON FOR VISIT (unrecogniz ed section and content) Reason Comments Appointment Reason Comments Procedure Reason Comments Follow Up Phone Call Care Teams (unrecognized sec tion and content) Team Status: Inactive Member Role Status Dates Jose Enrique Leblanc II, MD Attending Provider Active [employer] Relationship Specialty Start Date End Date Cecilio Benjamin DO PCP - General Internal Medicine 09/04/13 [employer] Relationship Specialty Start Date End Date Cecilio Benjamin DO PCP - General Internal Medicine 09/04/13 [employer] Relationship Specialty Start Date End Date Cecilio Benjamin DO PCP - General Internal Medicine 09/04/13 [employer] Relationship Specialty Start Date End Date Cecilio Benjamin DO PCP - General Internal Medicine 09/04/13 Team Status: Active Member Role Status Dates Cecilio Benjamin DO Primary Care Provider Active Team Status: Active Member Role Status Dates Cecilio Benjamin DO Primary Care Provider Active Start: October 30, 2023 JUSTIN Gan Attending Provider Active Start : October 30, 2023 Team Status: Inactive Member Role Status Dates Cecilio Benjamin DO Primary Care Provide r, Attending Provider Active Start: January 22, 2024 End: January 22, 2024 Goals (unrecognized section and content) Goals may be documented in a n alternate section Source Comments (unrecognize d section and content) In the event this informatio n is protected by the Federal Confidentiality of Alcohol and Drug Abuse Patient Records regulations: The Federal rules restrict any use of the information to criminally investigate or prosecute any alcohol or drug abuse patient.[facility] HospitalIn the event this information is protected by the Federal Confidentiality of Alcohol and Drug Abuse Patient Records regulations: The Federal rules restrict any use of the information to criminally investigate or prosecute any alcohol or drug abuse patient.[facility] HospitalIn the event this information is protected by the [facility] Confidentiality of Alcohol and Drug Abuse Patient Records regulations: The Federal rules restrict any use of the information to criminally investigate or prosecute any alcohol or drug abuse patient.[facility] HospitalIn the event this information is protected by the Federal Confidentiality of Alcohol and Drug Abuse Patient Records regulations: The Federal rules restrict any use of the information to criminally investigate or prosecute any alcohol or drug abuse patient.[facility] FOR RECORDS PERTAINING TO PATIENTS WHO [...] BE BASED ON THE PRIMARY CLINICAL RECORDS. [employer] [facility]. provides no warranty or guarantee of the accuracy or completeness of information in this document.
--- NOTE | 2024-02-11 15:25 | P.CN_ITS ---
Consult Note: HPI Data of Consult Patient: known to practice within the last 3 years Consult date: 02/11/24 Requesting Physician: Maddie Villalobos MD Primary Care Provider: Cecilio Benjamin DO Consult Narrative Reason for consult: low back, bilateral lower extremity pain Narrative: 83yom who presents for assessment. continues to have pain throughout low back with weakness in lower extremities. imaging reviewed, which is significant for multilevel stenosis, worst at l4-5, where there is also disc bulge. also mu ltilevel spondylosis and facet arthropathy noted. continues to stay very active and engage in chiropractic therapy as needed. uses otc meds as needed. cc:: CC: Maddie Villalobos MD Review of Systems ROS Status of ROS 10 or more systems reviewed and unremark able except as noted in history and below Meds Home Medications and Allergies Home Medications ?Medication ?Instructions ?Recorded ?Confirmed ?Type albuterol sulfate 90 mcg/actuation 2 inh inhalation Q8H PRN shortness 01/28/24 01/28/24 History aerosol inhaler (Ventolin HFA) of breath or wheezing amlodipine 2.5 mg tablet 2.5 mg PO DAILY 01/28/24 01/28/24 History clonazepam 0.5 mg tablet 0.5 mg PO DAILY 01/28/24 01/28/24 History escitalopram oxalate 10 mg tablet 10 mg PO DAILY 01/28/24 01/28/24 History (Lexapro) fluticasone propionate 110 1 inh inhalation BID 01/28/24 01/28/24 History mcg/actuation HFA aerosol inhaler nabumetone 500 mg tablet 500 mg PO BID 01/28/24 01/28/24 History omeprazole 20 mg capsule,delayed 20 mg PO DAILY 01/28/24 01/28/24 History release tamsulosin 0.4 mg capsule (Flomax) 0.4 mg PO DAILY 01/28/24 01/28/24 History Exam Narrative Exam Narrative: Psych-alert and oriented x 3. Attentive and appropriate, constitutionally normal, displays normal mood and affect per situation.? There are no obvious deficits in memory, reasoning, or intellect.? Skin-no obvious rashes, bruising, erythema noted to the patient's area of pain. Extremities- extremities are warm with minimal edema and palpable pulses. Lumbar-no significant tenderness to palpation noted in the lumbar spine and paraspinal musculature.? Pain is elicited with extension, and lateral rotation of the lumbar spine. Range of motion is slightly diminished with these motions due to pain. Facet loading maneuvers are positive bilaterally and do appear to be concordant with the patient's normal complaints of pain.? Coordination remains intact.? Gait remains non-antalgic. Assessment and Plan Assessment and Plan (1) Lumbar spondylosis: (2) Lumbar stenosis with neurogenic claudication: Plan 83yom who presents for assessment. failed conservative measures, as noted. imaging reviewed, as noted. given symptoms and imaging, prudent to attempt bilateral l4-5 tfesi under fluoroscopic guidance. he is in agreement. may eventually require lumbar mbb/rfa. meds reviewed, no changes. follow up after procedure.
== END 2024-02-11 14:45 | disposition home or self-care (01) ==
LOC: PM 14:45
PROVIDERS: PCP Internal Medicine; Visit Provider Anesthesiology
DX: M47.816 Spondylosis without myelopathy or radiculopathy, lumbar region (principal); M48.062 Spinal stenosis, lumbar region with neurogenic claudication
CPT/HCPCS: G0463

== ENCOUNTER 2024-02-13 08:30 | Outpatient (OUT) | payer MEDICARE, OTHER, SELFPAY ==
--- OUTSIDE RECORDS SUMMARY | 2024-02-13 08:51 | XMS_ITS | CCD ---
Author Organization [facility] Care Team Providers Care Law Enforcement Officer Name Role Phone CECILIO [phone] UNKNOWN Unavailable Unavailable BETH GOODEN Unavailable Unavailable GIACOMO, BETH Campbell Unavailable Unavailable GIACOMO, BETH Campbell Unavailable Unavailable Cecilio Benjamin Unavailable [...] MD Jose Enrique Leblanc II Attending Provider [phone] Jose Enrique Leblanc II Unavailable Jose Enrique Leblanc II Attending UnavailJose Enrique Mlain II Admitting UnavailCecilio Mcgrath DO Primary Care Provider DAVID JAEGER Admitting Unavailable DAVID JAEGER Attending Unavailable CECILIO BENJAMIN Primary Care Unavailable Griselda WHARTON, Maddie Carreno Attending Unavailable Allergies Allergy Classification Reported Allergen(s) Allergy Type Date of Onset Reaction(s) Facility (7 sources) bacitracin; Translations: [bacitracin] Drug Allergy 09-11-2013 Unknown [facility] Repository (19 sources) Albuterol Drug Allergy Unknown [facility] Other (20 sources) HMG-CoA reductase inhibitor Drug allergy Unknown [facility] Other Medications Current Medications Medication Drug Class(es) [...] uth every 8 hours. (Mild pain reliever) [id number] 200 actuat albuterol 0.09 mg/actuat metered dose [...] taking medication. [facility] (TABLET CUTTER) [facility] (1 source) Start: 2017 End: 2022 [facility] (TABLET CUTTER) [facility] Indications: Primary osteoarthritis of right hip Grasper [...] 01-22-2024 Episodic Other aftercare (2 sources) Other nursing home (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 therapy; Translations: [OTH FCI CURRENT [...] Test Name Value Interpretation Reference Range Facility [facility] R[facility] ([id number]) 1940 Jill Marie* Date Time Provider Department 03/20/23 DAVID JAEGER SPNMAV During your visit today, we recorded the following information about you: Neida Caballero MA 03/20/2023 12:30 PM Signed DATE OF SERVICE: 03/15/2023 PATIENT'S PHONE NUMBERS: [phone] (home) OR @[employer]@ PROVIDER: Dr. Jaeger PROCEDURE: Elective Pain Management [...] work Requesting to call his CELL ONLY [phone] what to do next Leave Detailed messages [...] of spine injection schedulers to call at [phone]. Patient will call if he wants to schedule another injection. 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 Author [...] offered a procedure / surgery at a [facility] facility. Patient and I have discussed [...] surgery/procedure as indicated on the consent form. [facility] approved time out was performed identifying the site, side and level of procedure prior to start of procedure. [facility] [place] - ELECTIVE PROCEDURE Lumbar Transforaminal Epidural Steroid [...] the entire procedure. Davidjudith Jaeger DO, MBA [facility] Unique 02-26-2023 CNPN Telephone (SPNMAV) RUPERTO THORPE ([id number]) 1940 [employer]* Date Time Provider Department 02/26/23 DAVID JAEGER SPNMAV During your visit today, we recorded the following information about you: Linda Knox LPN 02/26/2023 4:49 PM Signed Spoke to patient in [facility] to pre procedure instructions. Pt must have a wedding transportation driver. Pt advised to arrive 30 min [...] take. Advised on location of ASC-2nd floor [facility] Pt will receive a follow up call several days after by a pricing/signage team member. If you experience any increase in weakness, difficulty walking or significant increase in pain that last more than 4 hours, please proceed to the Emergency Room and tell them you had a spine procedure done recently. Additionally, call us and notify us of these symptoms. Please call [phone] if you have any questions. Pt verbalized [...] by LINDA KNOX LPN on 02/26/23 Normal [facility] Unique 02-19-2023 CNPN Telephone (SPNMAV) RUPERTO THORPE ([id number]) 1940 [employer] Date Time Provider Department 02/19/23 DAVID JAEGER SPTK During your visit today, we recorded the following information about you: Camilla Jarrell [facility] 02/19/2023 9:27 AM Signed Ruperto Thorpe [...] call Celi as patient cannot hear well [phone] Patient has been identified by name and birthdate. Duration of symptoms: N/A Person calling: daughter: Celi Call patient at: N/A [phone] (home) [phone] (cell) Was an appointment scheduled: No Closing statement: Results or non-symptom based questions: Thank you for calling [facility], your call will be returned within the next business day. Camilla Jarrell [facility] Linda Knox LPN 02/19/2023 9:45 AM Signed Spine Intervention order formatted for review Linda Knox LPN 02/19/2023 11:59 AM Signed Order approved Spoke to daughter in [place] to pre procedure instructions. Daughter given scheduling number [phone] Pt must have a wedding transportation driver. Pt advised to arrive 30 min prior to the time given by the materials scheduler. Pt advised will also receive a call the day before from the surgery center to confirm date/time. Pt can eat and drink as normal. and Pt can take medications as normal. No alcohol 24 hours prior. Pt is on ASA.- 81 mg okay to take. and must Advised on location of ASC-2nd floor [facility] Pt will receive a follow up call several days after by a pricing/signage team member. If you experience any increase in weakness, difficulty walking or significant increase in pain that last more than 4 hours, please proceed to the Emergency Room and tell them you had a spine procedure done recently. Additionally, call us and notify us of these symptoms. Please call [phone] if you have any questions. Pt verbalized understanding. 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 Normal [facility] XR knee LT 4V*on 11-09-2022 XR knee LT 4V* [facility] [place] [address] [place], [place] [id number] XRay Report Signed Patient: Ruperto Thorpe MR#: [id number] 5 : 1940 Acct:[id number] Age/Sex: 82 / M ADM Date: 11/09/22 Loc: [facility] Room: Type: [facility] Attending Dr: Jose Enrique Leblanc II, [...] Darren Yuen M.D.11/09/2022 5:03 PM Dictation Location: [place] [address] Transcribed By: [facility] 11/09/221702 Dictated By: Darren Yuen II, MD 11/09/221700 Signed By: 11/09/221702 Normal [facility] XR knee LT 4V* [facility] [employer] Other XR knee LT 4V* [facility] [employer] Other XR knee LT 4V* [address] [place] [address] [employer] Other XR knee LT 4V* [place] [address] No rt [employer] Other XR knee LT 4V* XRay Report [employer] Other XR knee LT 4V* Signed [employer] Other XR knee LT 4V* Patient: Ruperto Thorpe MR#: [id number] [employer] Other XR knee LT 4V* 5 [employer] Other XR knee LT 4V* : 1940 Acct:[id number] [employer] Other XR knee LT 4V* Age/Sex: 82 / M ADM Date: 11/09/22 [facility] Other XR knee LT 4V* Loc: [facility] Room: Type : [facility] [employer] Other XR knee LT 4V* Attending Dr: Jose Enrique Leblanc II, MD [employer] Other XR knee LT 4V* Copies to: Jose Enrique Leblanc MD [employer] Other XR knee LT 4V* Ordering Provider: Jose Enrique Leblanc MD [employer] Other XR knee LT 4V* Date of Service: 11/09/22 [employer] Other XR knee LT 4V* XR/XR knee LT 4V*: Acute pain of left knee [employer] Other XR knee LT 4V* XR knee LT 4V* 11/09/2022 3:15 PM [employer] Other XR knee LT 4V* SIGNS AND SYMPTOMS: Acute pain of left knee [employer] Other XR knee LT 4V* PROTOCOL: Frontal, lateral, oblique, and sunrise views of the left knee [employer] Other XR knee LT 4V* COMPARISON: 11/05/2022 [employer] Other XR knee LT 4V* FINDINGS: [employer] Other XR knee LT 4V* There is similar narrowing of the weightbearing joint spaces with chondrocalcinosis of the menisci [employer] Other XR knee LT 4V* suggesting underlyin g CPPD. There is narrowing of the patellofemoral joint space with spurring at [employer] Other XR knee LT 4V* the superior pole of patella. There is a small joint effusion. No soft tissue swelling. No acute [employer] Other XR knee LT 4V* displaced fracture. Vascular calcifications are present posteriorly. [employer] Other XR knee LT 4V* XR/XR knee LT 4V* [employer] Other XR knee LT 4V* IMPRESSION: [employer] Other XR knee LT 4V* Tricompartmental degenerative changes are noted in the left knee with a small joint effusion. [employer] Other XR knee LT 4V* There is chondrocalcinosis of the menisci suggesting underlying CPPD. [employer] Other XR knee LT 4V* Impression dictated by: Darren Yuen M.D.11/09/2022 5:03 PM [employer] Other XR knee LT 4V* Dictation Location: [place] [address] [employer] Other XR knee LT 4V* Transcribed By: PWS 11/09/22 [facility] [employer] Other XR knee LT 4V* Dictated By: Darren Yuen II, MD 11/09/22 [facility] [employer] Other XR knee LT 4V* Signed By: [employer] Other XR knee LT 4V* 11/09/22 [facility] [employer] Other XR pelvis 1-2Von 11-09-2022 XR pelvis 1-2V [facility] [place] [address] [place] [address] XRay Report Signed Patient: Ruperto Thorpe MR#: [id number] 5 : 1940 Acct:[id number] Age/Sex: 82 / M ADM Date: 11/09/22 Loc: [facility] Room: Type: [facility] Attending Dr: Jose Enrique Leblanc II, [...] Darren Yuen M.D.11/09/2022 5:01 PM Dictation Location: [place] [address] Transcribed By: [facility] 11/09/22 170 Dictated By: Darren Yuen II, MD 11/09/221699 Signed By: 11/09/221700 [facility] XR pelvis 1-2V XR/XR pelvis 1-2V: Acute pain of left knee [employer] Other XR pelvis 1-2V XR pelvis 1-2V 11/09/2022 3:15 PM [employer] Other XR pelvis 1-2V SIGNS AND SYMPTOMS: Left knee pain [employer] Other XR pelvis 1-2V PROTOCOL: Frontal radiograph of the chest [employer] Other XR pelvis 1-2V COMPARISON: None [facility] Other XR pelvis 1-2V There is mild narrowing of the left hip joint space with subcortical cystic change on both sides of [employer] Other XR pelvis 1-2V the joint along the acetabular there is chondrocalcinosis of the labrum overlying the superior [employer] Other XR pelvis 1-2V acetabular rim and superior lateral femoral head. The bony ring of the pelvis is intact. There is [employer] Other XR pelvis 1-2V total right hip arthroplasty. Degenerative changes are noted in the sacroiliac joints. No fracture [employer] Other XR pelvis 1-2V is [employer] Other XR pelvis 1-2V XR/XR pelvis 1-2V [employer] Other XR pelvis 1-2V Degenerative changes are noted in the left hip with findings suspicious for previous labral [employer] Other XR pelvis 1-2V pathology. [employer] Other XR pelvis 1-2V Postoperative change s are noted in the right hip with total right hip arthroplasty hardware. [employer] Other XR pelvis 1-2V Impression dictated by: Darren Yuen M.D.11/09/2022 5:01 PM [employer] Other XR pelvis 1-2V Transcribed By: COLIN 11/09/22 1701 [employer] Other XR pelvis 1-2V Dictated By: Darren Yuen II, MD 11/09/22 1700 [employer] Other XR pelvis 1-2V 11/09/22 1701 [employer] Other XR KNEE LT 4V or >on [...] There is chondrocalcinosis. Soft tissues: Unremarkable. IMPRESSION: Xyun-jj-laccbjfd osteoarthritis as described above. Chondrocalcinosis. No acute fracture or dislocation. Electronically authenticated by: CHUCK JONES Date: 2022-11-05 11:19 Normal [facility] US CAROTID ART BILon 023 US CAROTID [...] JONAS MCLEOD Date: 2022-09-26 10:58 Normal [facility] CBC AUTO DIFFon 08-10-2022 BASO # 0.0 103/ul Normal 0.0-0.1 [facility] Comment on above: Performed By: #### C BC #### [facility] [address] [place] [address] Dr. Alexis Brink Basophils/100 WBC (Bld) 0.7 % Normal 0.2-2.0 [facility] Comment on above: Performed By: #### C BC #### [facility] [address] [place] [address] Dr. Alexis Brink EO # 0.3 103/ul Normal 0.0-0.7 [facility] Comment on above: Performed By: #### C BC #### [facility] [address] [place] [address] Dr. Alexis Brink Eosinophils/100 WBC (Bld) 6.1 % Normal 0.9-7.0 [facility] Comment on above: Performed By: #### C BC #### [facility] [address] [place] [address] Dr. Alexis Brink Erythrocyte distribution width (RBC) [Ratio] 12.1 % Normal 11.0-15.0 [facility] Comment on above: Performed By: #### C BC #### [facility] [address] [place] [address] Dr. Alexis Brink Hematocrit (Bld) [Volume fraction] 44.2 % Normal 42.0-54.0 [facility] Comment on above: Performed By: #### C BC #### [facility] [address] [place] [address] Dr. Alexis Brink Hemoglobin (Bld) [Mass/Vol] 14.9 g/dL Normal 14.0-18.0 [facility] Comment on above: Performed By: #### C BC #### [facility] [address] [place] [address] Dr. Alexis Brink IG # 0.01 10e3/ul Normal 0.00-0.03 [facility] Comment on above: Performed By: #### C BC #### [facility] [address] [place] [address] Dr. Alexis Brink IG % 0.2 % Normal 0.0-0.5 [facility] Comment on above: Performed By: #### C BC #### [facility] [address] [place] [address] Dr. Alexis Brink LYMPH # 1.2 103/ul Normal 1.2-3.8 [facility] Comment on above: Performed By: #### C BC #### [facility] [address] [place] [address] Dr. Alexis Brink Lymphocytes/100 WBC (Bld) 21.3 % Normal 20.5-60.0 [facility] Comment on above: Performed By: #### C BC #### [facility] [address] [place] [address] Dr. Alexis Brink MANUAL DIFF REQ NO Normal [facility] Comment on above: Performed By: #### C BC #### [facility] [address] [place] [address] Dr. Alexis Brink MCH (RBC) [Entitic mass] 30.7 pg Normal 25.9-34.0 [facility] Comment on above: Performed By: #### C BC #### [facility] [address] [address] [address] Alexis Brink MCHC (RBC) [Mass/Vol] 33.7 g/dL Normal 29.9-35.2 [facility] Comment on above: Performed By: #### C BC #### [facility] [address] [place] [address] [address] Alexis Brink MCV (RBC) [Entitic vol] 91.1 fL Normal 80.0-94.0 [facility] Comment on above: Performed By: #### C BC #### [facility] [address] [place] [address] Dr. Alexis Brink MONO # 0.5 103/ul Normal 0.3-0.8 [facility] Comment on above: Performed By: #### C BC #### [facility] [address] [place] [address] Dr. Alexis Brink Monocytes/100 WBC (Bld) 8.5 % Normal 1.7-12.0 [facility] Comment on above: Performed By: #### C BC #### [facility] [address] [place] [address] Dr. Alexis Brink NEUT # 3.5 103/ul Normal 1.4-6.5 [facility] Comment on above: Performed By: #### C BC #### [facility] [address] [address] [address] Alexis Brink Neutrophils/100 WBC (Bld) 63.2 % Normal 43.0-75.0 [facility] Comment on above: Performed By: #### C BC #### [facility] [address] [address] [address] Alexis Brink Platelet mean volume (Bld) [Entitic vol] 10.0 fL Normal 9.5-13.5 [facility] Comment on above: Performed By: #### C BC #### [facility] [address] [place] [address] [address] Alexis Brink PLT 120 103/ul Critically low 150-450 [facility] Comment on above: Performed By: #### C BC #### [facility] [address] [place], [place] [address] Dr. Alexis Brink RBC 4.85 106/ul Normal 4.70-6.10 [facility] Comment on above: Performed By: #### C BC #### [facility] [address] [place], [place] [address] Dr. Alexis Brink WBC 5.6 103/ul Normal 4.0-11.0 [facility] Comment on above: Performed By: #### C BC #### [facility] [address] [place], [place] [address] Dr. Alexis Brink [facility]21 SARS-CoV-2 (COVID-19) RNA RICKY+probe Ql (Unsp spec) Not detected Normal NOT DETECTED [facility] Comment on above: Result Comment: This test is not yet approved or cleared by the [place] FDA. When there are no FDA-approved or cleared tests available, and other criteria are met, FDA can make tests available under an emergency access mechanism called an Emergency Use Authorization (EUA). The EUA for this test is supported by the Medical Representative of Health and Human Service's (HHS's) declaration [...] with SARS-CoV-2. Performed By: #### C VDTB ####[facility] [address] [place], [place] [address]BgDr. Alexis Brink INFLUENZA A AND B AGon 08-10 INFLUANEGH SEE BELOW Normal [facility] Comment on above: Result Comment: Nega tive for Flu A protein angiten. Infection due to Flu A cannot be ruled out. Flu A angiten in the sample may be below the detection limit of the test. Performed By: #### I NFLUAB ####[facility] [address] [place] [address]Dr. Alexis Brink INFLUBNEGH SEE BELOW Normal [facility] Comment on above: Result Comment: Nega tive for Flu B protein antigen. Infection due to Flu B cannot be ruled out. Flu B antigen in the sample may be below the detection limit of the test. Performed By: #### I NFLUAB ####[facility] [address] [place] [address]Dr. Alexis Brink INFLUENZA A AG Negative Normal NEGATIVE SEE COMMENT [facility] Comment on above: Performed By: #### I NFLUAB ####[facility] [address] [place], [place] [address]Dr. Alexis Brink INFLUENZA B AG Negative Normal NEGATIVE SEE COMMENT [facility] Comment on above: Performed By: #### I NFLUAB ####[facility] [address] [place], [place] [address]DrLainey Brink INTERNAL CONTROLS Within Normal Limits Normal Wi thin Normal Limits [facility] Comment on above: Performed By: #### I NFLUAB ####[facility] [address] [place], [place] [address]DrLainey Brink PROF CHEM 8 (BAS METB)on Anion gap [Moles/Vol] 11.4 mmol/L Normal [facility] Comment on above: Performed By: #### B NARA HSTROPN #### [facility] [address] [place] [address] Dr. Alexis Brink Calcium [Mass/Vol] 8.9 mg/dL Normal 8.5-10.1 [facility] Comment on above: Performed By: #### B NARA HSTROPN #### [facility] [address] [address] [address] Alexis Brink Chloride [Moles/Vol] 102 mmol/L Normal 98-107 [facility] Comment on above: Performed By: #### B NARA HSTROPN #### [facility] [address] [address] [address] Alexis Brink CO2 [Moles/Vol] 28.8 mmol/L Normal 21.0-32.0 [facility] Comment on above: Performed By: #### B MP, HSTROPN #### [facility] [address] [address] [address] Alexis Brink Creatinine [Mass/Vol] 1.35 mg/dL Critically high 0.70-1.30 [facility] Comment on above: Performed By: #### B MP, HSTROPN #### [facility] [address] [address] [address] Alexis Brink EGFR-AF CHINESE >60 Normal >=60 [facility] Comment on above: Performed By: #### B MP, HSTROPN #### [facility] [address] [address] [address] Alexis Brink EGFR-NON AF CHINESE 51 mL/min/1.73m2 Critically low >=60 [facility] Comment on above: Performed By: #### B MP, HSTROPN #### [facility] [address] [address] [address] Alexis Brink Glucose [Mass/Vol] 109 mg/dL Critically high 74-106 [facility] Comment on above: Performed By: #### B MP, HSTROPN #### [facility] [address] [place] [address] [address] Alexis Brink Potassium [Moles/Vol] 4.2 mmol/L Normal 3.5-5.1 [facility] Comment on above: Performed By: #### B MP, HSTROPN #### [facility] [address] [address] [address] Alexis Brink Sodium [Moles/Vol] 138 mmol/L Normal 136-145 [facility] Comment on above: Performed By: #### B MP, HSTROPN #### [facility] [address] [place] [address] [address] Alexis Brink Urea nitrogen [Mass/Vol] 18.0 mg/dL Normal 7.0-18.0 [facility] Comment on above: Performed By: #### B MP, HSTROPN #### [facility] [address] [address] [address] Alexis Brink Urea nitrogen/Creatinin e [Mass ratio] 13.3 mg/mg Normal [facility] Comment on above: Performed By: #### B MP, HSTROPN #### [facility] [address] [place] [address] [address] Alexis Brink TROPONIN, HIGH SENSITIVITYon 08-10-2022 HSTROP 22.2 pg/mL Normal 4.0-76.1 [facility] Comment on above: Result Comment: CUT- OFF POINTS HAVE BEEN ESTABLISHED BASED ON THE FOURTH UNIVERSAL DEFINITIONS OF MYOCARDIAL INFARCTION. THE UPPER REFERENCE LIMIT (URL) OF TROPONIN, DEFINED THE 99TH PERCENTILE OF cTnI DISTRIBUTION IN A REFERENCE POPULATION, HAS BEEN CONFIRMED THE DECISION THRESHOLD FOR [place] DIAGNOSIS. Performed By: #### B NARA, HSTROPN #### [facility] [address] [place] [address] Dr. Alexis Brink XR CHEST 1 Von [...] RADHA UNDERWOOD Date: 2022-08-10 16:07 Normal [facility] CBC AUTO DIFFon 02-09-2022 BASO # 0.0 103/ul Normal 0.0-0.1 [facility] Comment on above: Performed By: #### C BC #### [facility] [address] [place] [address] Dr. Alexis Brink Basophils/100 WBC (Bld) 0.6 % Normal 0.2-2.0 [facility] Comment on above: Performed By: #### C BC #### [facility] [address] [place] [address] Dr. Alexis Brink EO # 0.5 103/ul Normal 0.0-0.7 [facility] Comment on above: Performed By: #### C BC #### [facility] [address] [place] [address] Dr. Alexis Brink Eosinophils/100 WBC (Bld) 7.2 % Critically high 0.9-7.0 [facility] Comment on above: Performed By: #### C BC #### [facility] [address] [place] [address] Dr. Alexis Brink Erythrocyte distribution width (RBC) [Ratio] 12.4 % Normal 11.0-15.0 [facility] Comment on above: Performed By: #### C BC #### [facility] [address] [place] [address] Dr. Alexis Brink Hematocrit (Bld) [Volume fraction] 45.5 % Normal 42.0-54.0 [facility] Comment on above: Performed By: #### C BC #### [facility] [address] [place] [address] Dr. Alexis Brink Hemoglobin (Bld) [Mass/Vol] 15.4 g/dL Normal 14.0-18.0 [facility] Comment on above: Performed By: #### C BC #### [facility] [address] [place] [address] Dr. Alexis Brink IG # 0.02 10e3/ul Normal 0.00-0.03 [facility] Comment on above: Performed By: #### C BC #### [facility] [address] [place] [address] Dr. Alexis Brink IG % 0.3 % Normal 0.0-0.5 [facility] Comment on above: Performed By: #### C BC #### [facility] [address] [place] [address] Dr. Alexis Brink LYMPH # 1.3 103/ul Normal 1.2-3.8 [facility] Comment on above: Performed By: #### C BC #### [facility] [address] [place] [address] Dr. Alexis Brink Lymphocytes/100 WBC (Bld) 17.8 % Critically low 20.5-60.0 [facility] Comment on above: Performed By: #### C BC #### [facility] [address] [place] [address] Dr. Alexis Brink MANUAL DIFF REQ NO Normal [facility] Comment on above: Performed By: #### C BC #### [facility] [address] [place] [address] Dr. Alexis Brink MCH (RBC) [Entitic mass] 31.4 pg Normal 25.9-34.0 [facility] Comment on above: Performed By: #### C BC #### [facility] [address] [place] [address] Dr. Alexis Brink MCHC (RBC) [Mass/Vol] 33.8 g/dL Normal 29.9-35.2 [facility] Comment on above: Performed By: #### C BC #### [facility] [address] [place] [address] Dr. Alexis Brink MCV (RBC) [Entitic vol] 92.9 fL Normal 80.0-94.0 [facility] Comment on above: Performed By: #### C BC #### [facility] [address] [place] [address] Dr. Alexis Brink MONO # 0.7 103/ul Normal 0.3-0.8 [facility] Comment on above: Performed By: #### C BC #### [facility] [address] [place] [address] Dr. Alexis Brink Monocytes/100 WBC (Bld) 9.6 % Normal 1.7-12.0 [facility] Comment on above: Performed By: #### C BC #### [facility] [address] [place] [address] Dr. Alexis Brink NEUT # 4.6 103/ul Normal 1.4-6.5 [facility] Comment on above: Performed By: #### C BC #### [facility] [address], [place] [address] Dr. Alexis Brink Neutrophils/100 WBC (Bld) 64.5 % Normal 43.0-75.0 [facility] Comment on above: Performed By: #### C BC #### [facility] [address], [place] [address] Dr. Alexis Brink Platelet mean volume (Bld) [Entitic vol] 10.7 fL Normal 9.5-13.5 [facility] Comment on above: Performed By: #### C BC #### [facility] [address], [place] [address] Dr. Alexis Brink PLT 130 103/ul Critically low 150-450 [facility] Comment on above: Performed By: #### C BC #### [facility] [address] [address] [address] Alexis Brink RBC 4.90 106/ul Normal 4.70-6.10 [facility] Comment on above: Performed By: #### C BC #### [facility] [id number] Alexis Brink WBC 7.1 103/ul Normal 4.0-11.0 [facility] Comment on above: Performed By: #### C BC #### [facility] [id number] Alexis Brink DIRECT LDLon 02-09-2022 Cholesterol in LDL [Mass/Vol] 144 mg/dL Normal [facility] Comment on above: Performed By: #### D LDL, BMP ####[facility] [id number] [id number]. Alexis Brink DLDL NORMAL SEE BELOW Normal [facility] Comment on above: Result Comment: <100 mg/dl OPTIMAL 100 - 129 mg/dl NEAR OR ABOVE OPTIMAL 130 - 159 mg/dl BORDERLINE HIGH 160 - 189 mg/dl HIGH >190 mg/dl VERY HIGH Performed By: #### D LDL, BMP ####[facility] [id number] [id number]. Alexis Brink PROF CHEM 8 (BAS METB)on Anion gap [Moles/Vol] 9.3 mmol/L Normal [facility] Comment on above: Performed By: #### D LDL, BMP #### [facility] [address] [address] [address] Alexis Brink Calcium [Mass/Vol] 8.7 mg/dL Normal 8.5-10.1 [facility] Comment on above: Performed By: #### D LDL, BMP #### [facility] [address] [address] [address] Alexis Brink Chloride [Moles/Vol] 103 mmol/L Normal 98-107 [facility] Comment on above: Performed By: #### D LDL, BMP #### [facility] [address] [place] [address] Dr. Alexis Brink CO2 [Moles/Vol] 32.1 mmol/L Critically high 21.0-32.0 [facility] Comment on above: Performed By: #### D LDL, BMP #### [facility] [address] [place] [address] Dr. Alexis Brink Creatinine [Mass/Vol] 1.35 mg/dL Critically high 0.70-1.30 [facility] Comment on above: Performed By: #### D LDL, BMP #### [facility] [address] [place] [address] Dr. Alexis Brink EGFR-AF CHINESE >60 Normal >=60 [facility] Comment on above: Performed By: #### D LDL, BMP #### [facility] [address] [place] [address] Dr. Alexis Brink EGFR-NON AF CHINESE 51 mL/min/1.73m2 Critically low >=60 [facility] Comment on above: Performed By: #### D LDL, BMP #### [facility] [address] [place] [address] Dr. Alexis Brink Glucose [Mass/Vol] 90 mg/dL Normal 74-106 [facility] Comment on above: Performed By: #### D LDL, BMP #### [facility] [address] [place] [address] Dr. Alexis Brink Potassium [Moles/Vol] 4.4 mmol/L Normal 3.5-5.1 [facility] Comment on above: Performed By: #### D LDL, BMP #### [facility] [address] [place] [address] Dr. Alexis Brink Sodium [Moles/Vol] 140 mmol/L Normal 136-145 [facility] Comment on above: Performed By: #### D LDL, BMP #### [facility] [address] [place] [address] Dr. Alexis Brink Urea nitrogen [Mass/Vol] 16.0 mg/dL Normal 7.0-18.0 [facility] Comment on above: Performed By: #### D LDL, BMP #### [facility] [address] [place] [address] Dr. Alexis Brink Urea nitrogen/Creatinin e [Mass ratio] 11.9 mg/mg [facility] Comment on above: Performed By: #### D LDL, BMP #### [facility] [address] [place] [address] Dr. Alexis Brink UA RANDOMon 02-09-2022 Bilirubin Ql (U) Negative Normal NEGATIVE [facility] Comment on above: Performed By: #### U A #### [facility] [address] [place] [address] Dr. Alexis Brink Clarity (U) CLEAR Normal CLEAR [facility] Comment on above: Performed By: #### U A #### [facility] [address] [place] [address] Dr. Alexis Brink Color (U) YELLOW Normal YELLOW [facility] Comment on above: Performed By: #### U A #### [facility] [address] [place] [address] Dr. Alexis Brink Glucose Ql (U) Negative Normal NEGATIVE [facility] Comment on above: Performed By: #### U A #### [facility] [address] [place] [address] Dr. Alexis Brink Hemoglobin Ql (U) Negative Normal NEGATIVE [facility] Comment on above: Performed By: #### U A #### [facility] [address] [address] [address] Alexis Brink Ketones Ql (U) Negative Normal NEGATIVE [facility] Comment on above: Performed By: #### U A #### [facility] [address] [place] [address] Dr. Alexis Brink LEUKOCYTES Negative Normal NEGATIVE [facility] Comment on above: Performed By: #### U A #### [facility] [address] [place] [address] Dr. Alexis Brink Nitrite Ql (U) Negative Normal NEGATIVE [facility] Comment on above: Performed By: #### U A #### [facility] [address] [place] [address] Dr. Alexis Brink pH (U) 7.0 [pH] Normal 5-9 [facility] Comment on above: Performed By: #### U A #### [facility] [address] [place] [address] Dr. Alexis Brink SPEC GRAVITY 1.015 Normal 1.005-<=1.025 [facility] Comment on above: Performed By: #### U A #### [facility] [address] [place] [address] Dr. Alexis Brink UA PROTEIN Negative Normal NEGATIVE/ TRACE [facility] Comment on above: Performed By: #### U A #### [facility] [address] [place] [address] Dr. Alexis Brink Urobilinogen Qn (U) 1.0 {Kay'U}/dL Normal 0.2 - 1.0 [facility] Comment on above: Performed By: #### U A #### [facility] [address] [place] [address] Dr. Alexis Brink XR CHEST 2 Von [...] by: DELISAELISE CHANDAN Date: 2021-12-06 15:42 Normal [facility] Nonvisit Note - PTon 018 Nonvisit Note - PT Cert letter refaxed for signature this date - third and final attempt. Normal [facility] Nonvisit Note - PTon 018 Nonvisit Note - PT Cert letter refaxed to Dr Gooden's office. Second attempt. Normal [facility] Coding Summary.on 01-25-2018 Coding Summary. CODING DATE: 01/25/2018 FINAL [facility] STATUS: PAYOR: Medicare ADMIT DX: REASON [...] Dominique Pendleton Date Saved: 01/25/2018 10:54 am [facility] Coding Summary. CODING DATE: 01/25/[address] [facility] STATUS: PAYOR: Medicare ADMIT DX: REASON [...] Dominique Pendleton Date Saved: 01/25/2018 10:54 am [facility] SURGICAL PATHOLOGYon 018 SURGICAL [facility]OLOGY [id number] Physician: BETH GOODEN MD FINAL DIAGNOSISRight hip, [...] to 8.5 x 8.5 x 1.8 cm. Coin Dealer sectionsare submitted as follows: A1 soft tissue, A2 bone submitted afterdecalcification.B Юлия/lachelle 01/01/2018 Gross examination performed at [facility] [place] [facility], [address] [place] [id number] of Report: 01/07/2018Date of Procedure: 01/01/2018Date of Receipt: 01/01/2018Submitted by: BETH GOODEN MDLocation: [id number] interpretation performed at [facility] [place] [facility], [address] [place] [id number]. Normal [facility] [place] [facility] Comment on above: Performed By: #### S ####See report for performing lab information. Vital Signs Date Time Vital Sign Value Performing Clinician Facility 01-22-2024 09:16-0400 Body height 167.64 cm [facility] 01-22-2024 09:16-0400 Body mass index (BMI) [Ratio] 29.3 kg/m2 [facility] 01-22-2024 09:16-0400 Body weight 82.55 kg [facility] 01-22-2024 09:16-0400 Diastolic blood pressure 72 mm[Hg] [facility] 01-22-2024 09:16-0400 Heart rate 64 /min [facility] 01-22-2024 09:16-0400 Respiratory rate 20 /min [facility] 01-22-2024 09:16-0400 Systolic blood pressure 131 mm[Hg] [facility] 09-28-2023 11:00-0500 Body height 167.64 cm Cecilio Ball Other [facility] Other 09-28-2023 11:00-0500 Body mass index (BMI) [Ratio] 30.24 kg/m2 Cecilio Ball Other [facility] Other 09-28-2023 11:00-0500 Body weight 85 kg Cecilio Ball Other [facility] Other 09-28-2023 11:00-0500 Respiratory rate 20 /min Cecilio Ball Other [facility] Other 09-28-2023 11:00-0500 SaO2% (BldA) [Mass fraction] 97 % Cecilio Ball Other [facility] Other 09-11-2023 10:45-0500 Body height 167.64 cm Cecilio Ball Other [facility] Other 09-11-2023 10:45-0500 Body mass index (BMI) [Ratio] 29.86 kg/m2 Cecilio Ball Other [facility] Other 09-11-2023 10:45-0500 Body temperature 97.5 [degF] Cecilio Ball Other [facility] Other 09-11-2023 10:45-0500 Body weight 83.92 kg Cecilio Ball Other [facility] Other 09-11-2023 10:45-0500 Diastolic blood pressure 81 mm[Hg] Cecilio Ball Other [facility] Other 09-11-2023 10:45-0500 Respiratory rate 20 /min Cecilio Ball Other [facility] Other 09-11-2023 10:45-0500 SaO2% (BldA) [Mass fraction] 98 % Cecilio Ball Other [facility] Other 09-11-2023 10:45-0500 Systolic blood pressure 161 mm[Hg] Cecilio Ball Other [facility] Other 08-01-2023 10:15-0500 Body height 167.64 cm Cecilio Ball Other [facility] Other 08-01-2023 10:15-0500 Body mass index (BMI) [Ratio] 29.86 kg/m2 Cecilio Ball Other [facility] Other 08-01-2023 10:15-0500 Body weight 83.92 kg Cecilio Ball Other [facility] Other 08-01-2023 10:15-0500 Diastolic blood pressure 79 mm[Hg] Cecilio Ball Other [facility] Other 08-01-2023 10:15-0500 Respiratory rate 20 /min Cecilio Ball Other [facility] Other 08-01-2023 10:15-0500 Systolic blood pressure 172 mm[Hg] Cecilio Ball Other [facility] Other 07-17-2023 10:15-0500 Body height 167.64 cm Cecilio Ball Other [facility] Other 07-17-2023 10:15-0500 Body mass index (BMI) [Ratio] 29.89 kg/m2 Cecilio Ball Other [facility] Other 07-17-2023 10:15-0500 Body weight 84.01 kg Cecilio Ball Other [facility] Other 07-17-2023 10:15-0500 Diastolic blood pressure 78 mm[Hg] Cecilio Ball Other [facility] Other 07-17-2023 10:15-0500 Respiratory rate 20 /min Cecilio Ball Other [facility] Other 07-17-2023 10:15-0500 Systolic blood pressure 172 mm[Hg] Cecilio Ball Other [facility] Other 07-10-2023 14:45-0500 Body height 167.64 cm Cecilio Ball Other [facility] Other 07-10-2023 14:45-0500 Body mass index (BMI) [Ratio] 29.47 kg/m2 Cecilio Ball Other [facility] Other 07-10-2023 14:45-0500 Body weight 82.83 kg Cecilio Ball Other [facility] Other 07-10-2023 14:45-0500 Diastolic blood pressure 80 mm[Hg] Cecilio Ball Other [facility] Other 07-10-2023 14:45-0500 Respiratory rate 20 /min Cecilio Ball Other [facility] Other 07-10-2023 14:45-0500 Systolic blood pressure 150 mm[Hg] Cecilio Ball Other [facility] Other 06-20-2023 08:30-0400 Body height 167.64 cm Cecilio Ball Other [facility] Other 06-20-2023 08:30-0400 Body mass index (BMI) [Ratio] 29.6 kg/m2 Cecilio Ball Other [facility] Other 06-20-2023 08:30-0400 Body weight 83.19 kg Cecilio Ball Other [facility] Other 06-20-2023 08:30-0400 Diastolic blood pressure 76 mm[Hg] Cecilio Ball Other [facility] Other 06-20-2023 08:30-0400 Respiratory rate 20 /min Cecilio Ball Other [facility] Other 06-20-2023 08:30-0400 Systolic blood pressure 157 mm[Hg] Cecilio Ball Other [facility] Other 05-30-2023 13:45-0400 Body height 167.64 cm Cecilio Ball Other [facility] Other 05-30-2023 13:45-0400 Body mass index (BMI) [Ratio] 28.95 kg/m2 Cecilio Ball Other [facility] Other 05-30-2023 13:45-0400 Body weight 81.38 kg Cecilio Ball Other [facility] Other 05-30-2023 13:45-0400 Diastolic blood pressure 78 mm[Hg] Cecilio Ball Other [facility] Other 05-30-2023 13:45-0400 Respiratory rate 16 /min Cecilio Ball Other [facility] Other 05-30-2023 13:45-0400 Systolic blood pressure 158 mm[Hg] Ceciilo Ball Other [facility] Other 02-14-2023 08:30-0400 Body height 167.64 cm Cecilio Ball Other [facility] Other 02-14-2023 08:30-0400 Body mass index (BMI) [Ratio] 28.57 kg/m2 Cecilio Ball Other [facility] Other 02-14-2023 08:30-0400 Body weight 80.29 kg Cecilio Ball Other [facility] Other 02-14-2023 08:30-0400 Diastolic blood pressure 80 mm[Hg] Cecilio Ball Other [facility] Other 02-14-2023 08:30-0400 Respiratory rate 16 /min Cecilio Ball Other [facility] Other 02-14-2023 08:30-0400 Systolic blood pressure 135 mm[Hg] Cecilio Ball Other [facility] Other 02-01-2023 08:15-0400 Body height 167.64 cm Jose Enrique Leblanc II Other [facility] Other 02-01-2023 08:15-0400 Body mass index (BMI) [Ratio] 27.44 kg/m2 Jose Enrique Kittson II Other [facility] Other 02-01-2023 08:15-0400 Body weight 77.11 kg Jose Enrique Benji II Other [facility] Other 12-11-2022 10:30-0400 Body height 167.64 cm Cecilio Ball Other [facility] Other 12-11-2022 10:30-0400 Body mass index (BMI) [Ratio] 28.66 kg/m2 Cecilio Ball Other [facility] Other 12-11-2022 10:30-0400 Body weight 80.56 kg Cecilio Ball Other [facility] Other 12-11-2022 10:30-0400 Diastolic blood pressure 76 mm[Hg] Cecilio Ball Other [facility] Other 12-11-2022 10:30-0400 Respiratory rate 12 /min Cecilio Ball Other [facility] Other 12-11-2022 10:30-0400 Systolic blood pressure 151 mm[Hg] Cecilio Ball Other [facility] Other 11-09-2022 16:00-0400 Body mass index (BMI) [Ratio] 29.21 kg/m2 Jose Enrique Landersisle II Other [facility] Other 11-09-2022 16:00-0400 Body weight 82.1 kg Jose Enrique Kittson II Other [facility] Other 11-09-2022 10:30-0400 Body height 167.64 cm Cecilio Ball Other [facility] Other 11-09-2022 10:30-0400 Body mass index (BMI) [Ratio] 29.23 kg/m2 Cecilio Ball Other [facility] Other 11-09-2022 10:30-0400 Body weight 82.15 kg Cecilio Ball Other [facility] Other 11-09-2022 10:30-0400 Diastolic blood pressure 79 mm[Hg] Cecilio Ball Other [facility] Other 11-09-2022 10:30-0400 Respiratory rate 20 /min Cecilio Ball Other [facility] Other 11-09-2022 10:30-0400 Systolic blood pressure 152 mm[Hg] Cecilio Ball Other [facility] Other 10-12-2022 10:00-0500 Body height 167.64 cm Cecilio Ball Other [facility] Other 10-12-2022 10:00-0500 Body mass index (BMI) [Ratio] 29.24 kg/m2 Cecilio Ball Other [facility] Other 10-12-2022 10:00-0500 Body weight 82.19 kg Cecilio Ball Other [facility] Other 10-12-2022 10:00-0500 Diastolic blood pressure 70 mm[Hg] Cecilio Ball Other [facility] Other 10-12-2022 10:00-0500 Respiratory rate 12 /min Cecilio Ball Other [facility] Other 10-12-2022 10:00-0500 Systolic blood pressure 102 mm[Hg] Cecilio Ball Other [facility] Other Encounters Encounter Date Encounter Type Care Provider Facility Start: 01-28-2024 End: 01-28-2024 ambulatory Maddie Villalobos MD Facility: [facility] Start: 01-22-2024 End: 01-22-2024 ambulatory [facility] Work Phone: Start: 01-22-2024 End: 01-22-2024 Patient encounter procedure [facility] Work Phone: Start: 10-30-2023 Non-patient / Non-visit [facility] [employer] [facility] [employer] Work Phone: Start: 09-28-2023 End: 09-28-2023 ambulatory Cecilio Ball Other [facility] Other Start: 09-28-2023 Office outpatient vi sit 15 minutes Cecilio Ball [facility] Start: 09-28-2023 Telephone encounter Cecilio Ball [facility] Start: 09-21-2023 End: 09-21-2023 ambulatory Cecilio Ball Other [facility] Other Start: 09-21-2023 Telephone encounter Cecilio Ball [facility] Start: 09-11-2023 End: 09-11-2023 ambulatory Cecilio Ball Other [facility] Other Start: 09-11-2023 Office outpatient vi sit 15 minutes Cecilio Ball [facility] Start: 09-11-2023 Telephone encounter Cecilio Ball [facility] Start: 09-03-2023 End: 09-03-2023 ambulatory Cecilio Ball Other [facility] Other Start: 09-03-2023 Telephone encounter Cecilio Ball [facility] Start: 08-03-2023 End: 08-03-2023 ambulatory Cecilio Ball Other [facility] Other Start: 08-03-2023 Telephone encounter Cecilio Ball [facility] Start: 08-01-2023 End: 08-01-2023 ambulatory Cecilio Ball Other [facility] Other Start: 08-01-2023 Office outpatient vi sit 15 minutes Cecilio Ball [facility] Start: 07-17-2023 End: 07-17-2023 ambulatory Cecilio Ball Other [facility] Other Start: 07-17-2023 Office outpatient vi sit 15 minutes Cecilio Ball [facility] Start: 07-10-2023 End: 07-10-2023 ambulatory Cecilio Ball Other [facility] Other Start: 07-10-2023 Office outpatient vi sit 15 minutes Cecilio Ball [facility] Start: 06-20-2023 End: 06-20-2023 ambulatory Cecilio Ball Other [facility] Other Start: 06-20-2023 Office outpatient vi sit 25 minutes Cecilio Ball [facility] Start: 06-15-2023 End: 06-15-2023 ambulatory Cecilio Ball Other [facility] Other Start: 06-15-2023 Telephone encounter Cecilio Benjamin [facility] Start: 05-30-2023 End: 05-30-2023 ambulatory Cecilio Ball Other [facility] Other Start: 05-30-2023 Office outpatient vi sit 15 minutes Cecilio Ball [facility] Start: 03-20-2023 Telephone encounter David Jaeger DO Work Phone: [facility] Comment on above: Follow Up Phone Call Start: 03-15-2023 End: 03-15-2023 ambulatory DAVID JAEGER Facility:[facility] Start: 02-27-2023 Orders Only David Marcos DO Work Phone: Procedures Comment on above: Pseudoclaudication s yndrome (Primary Dx); Lumbar radiculopathy Start: 02-26-2023 Telephone encounter David Jaeger DO Work Phone: [facility] Comment on above: Procedure Start: 02-19-2023 Telephone encounter David Jaeger DO Work Phone: [facility] Comment on above: Appointment Start: 02-14-2023 End: 02-14-2023 ambulatory Cecilio Benjamin Other [facility] Other Start: 02-14-2023 Patient encounter procedure Cecilio Benjamin [facility] Start: 02-13-2023 End: 02-13-2023 ambulatory Cecilio Benjamin Other [facility] Other Start: 02-13-2023 Telephone encounter Cecilio DENISE G [facility] Start: 02-08-2023 End: 02-08-2023 ambulatory Cecilio Benjamin Other [facility] Other Start: 02-08-2023 Telephone encounter Cecilio DENISE G [facility] Start: 02-01-2023 End: 02-01-2023 ambulatory Jose Enrique Leblanc II Other [facility] Other Start: 02-01-2023 Office outpatient vi sit 25 minutes Jose Enrique Leblanc II [facility] Start: 12-11-2022 End: 12-11-2022 ambulatory Cecilio Benjamin Other [facility] Other Start: 12-11-2022 Office outpatient vi sit 15 minutes Cecilio Benjamin [facility] Start: 11-09-2022 End: 11-09-2022 ambulatory Jose Enrique Leblanc II Facility:[facility] Start: 11-09-2022 End: 11-09-2022 Patient encounter procedure MD Jose Enrique Leblanc II Work Phone: [facility] Start: 11-09-2022 End: 11-09-2022 ambulatory MD Jose Enrique Leblanc II Work Phone: [facility] Work Phone: Start: 11-09-2022 Office outpatient ne w 45 minutes Jose Enrique Leblanc II [facility] Start: 11-09-2022 Office outpatient vi sit 15 minutes Cecilio Benjamin [facility] Start: 11-05-2022 End: 11-05-[address] CECILIO BENJAMIN Facility:[facility] Start: 10-12-2022 End: 10-12-2022 ambulatory Cecilio Benjamin Other [facility] Other Start: 10-12-2022 Office outpatient vi sit 25 minutes Cecilio Benjamin [facility] Start: 09-27-2022 End: 09-27-2022 ambulatory Cecilio Benjamin Other [facility] Other Start: 09-27-2022 Telephone encounter Cecilio Benjamin [facility] Start: 09-26-2022 End: 09-27-[address] CECILIO BENJAMIN Facility:[facility] Start: 08-25-2022 End: 08-25-2022 ambulatory Cecilio Benjamin Other [facility] Other Start: 08-25-2022 Telephone encounter Cecilio Benjamin [facility] Start: 08-10-2022 End: 08-10-[address] CECILIO BENJAMIN Facility:[facility] Start: 02-09-2022 End: 02-10-[address] CECILIO BENJAMIN Facility:[facility] Start: 12-06-2021 End: 12-07-[address] CECILIO BENJAMIN Facility:[facility] Start: 01-22-2018 End: 04-20-2018 Patient encounter [id number] AUGUSTINE BENJAMIN Facility[facility] Procedures Date Procedure Procedure Detail Performing Clinician Start: 11-09-2022 Pelvis X-ray MD Jose Enrique Leblanc II Work Phone: Start: 11-09-2022 Radiologic examinati on of knee MD Jose Enrique Leblanc II Work Phone: Plan of Treatment Date Care Activity Detail Author Start: 01-22-2024 Patient referral [facility] Work Phone: Start: 04-20-2023 Influenza vaccination INFLUENZA (#1) [facility] Start: 10-01-2022 COVID-19 VACCINE (5 - Moderna series) COVID-19 VACCINE (5 - Moderna series) [facility] Start: 08-20-2022 ADVANCE DIRECTIVE DISCUSSION ADVANCE DIRECTIVE DISCUSSION [facility] Start: 08-20-2022 DEPRESSION ASSESSMENT DEPRESSION ASS ESSMENT [facility] [facility] Start: 09-19-2021 COVID-19 VACCINE (4 - Booster for Moderna series) COVID-19 VACCINE (4 - Booster for Moderna series) [facility] Start: 09-19-2021 COVID-19 VACCINE (4 - Moderna series) COVID-19 VACCINE (4 - Moderna series) [facility] Start: 01-02-2021 DIABETES SCREEN DIABETES SCREEN [facility] Start: 1991 SHINGRIX VACCINE (1 of 2) SHINGRIX VACCINE (1 of 2) [facility] Start: 1960 Urine microalbumin profile DTAP,TDAP,TD (1 - Tdap) [facility] Start: 1959 SPIROMETRY SPIROMETRY [facility] Start: 1947 PNEUMOCOCCAL: 65+ (1 - PCV) PNEUMOCOCCAL: 65+ (1 - PCV) [facility] Comprehensive metabo lic 2000 panel - Serum or Plasma [facility] Patient referral [facility] Work Phone: SPINE INTERVENTION PROCEDURE SPINE INTERVENTION PROCEDURE Procedures Routine Spinal stenosis, lumbar region with neurogenic claudication Lumbar radiculopathy, chronic Ordered: 02/19/2023 [facility] Work Phone: Comment on above: Ordered: 02/19/2023 [facility] Immunizations Immunization Date Immunization Notes Care Provider Fa cility 05-30-2023 COVID-19 Vaccine Moderna - Documentation Purposes Only Cecilio Benjamin Other [facility] 05-30-2023 influenza virus vaccine, unspecified formulation [facility] 05-30-2023 influenza, high dose seasonal, preservative-free Cecilio Benjamin Other [facility] Other 06-13-2022 influenza virus vaccine, split virus (incl. purified surface antigen) Cecilio Benjamin Other [facility] Other 06-13-2022 influenza virus vaccine, unspecified formulation [facility] 06-13-2022 influenza, high dose seasonal, preservative-free Jose Enrique Benji II Other [facility] Other 05-31-2022 COVID-19 Pfizer (bivalent) Jose Enrique Kittson II Other [facility] 05-31-2022 COVID-19 Pfizer (Pediatric) Cecilio Benjamin Other [facility] 07-25-2021 COVID-19 Vaccine Moderna - Documentation Purposes Only Jose Enrique Benji II Other [facility] 05-03-2021 zoster vaccine recombinant Jose Enrique Kittson II Other [facility] 05-03-2021 zoster vaccine, live Benjami n Ball Other [facility] 01-28-2021 zoster vaccine recombinant Jose Enrique Benji II Other [facility] 01-28-2021 zoster vaccine, live Benjami n Ball Other [facility] 10-25-2020 COVID-19 Vaccine Moderna - Documentation Purposes Only Jose Enrique Kittson II Other [facility] 09-27-2020 COVID-19 Vaccine Moderna - Documentation Purposes Only Jose Enrique Kittson II Other [facility] 05-24-2020 influenza virus vaccine, split virus (incl. purified surface antigen) Cecilio Benjamin Other [facility] Other 05-24-2020 influenza virus vaccine, unspecified formulation [facility] 01-03-2019 diphtheria, tetanus toxoids and acellular pertussis vaccine, unspecified formulation Cecilio Benjamin Other [facility] 12-25-2018 pneumococcal polysaccharide vaccine, 23 valent Jose Enrique Kittson II Other [facility] 04-30-2018 influenza virus vaccine, split virus (incl. purified surface antigen) Cecilio Benjamin Other [facility] Other 04-30-2018 influenza virus vaccine, unspecified formulation [facility] 04-09-2017 influenza virus vaccine, split virus (incl. purified surface antigen) Cecilio Benjamin Other [facility] Other 04-09-2017 influenza virus vaccine, unspecified formulation [facility] 05-31-2016 zoster vaccine, live Jose Enrique Benji II Other [facility] 05-13-2016 influenza virus vaccine, split virus (incl. purified surface antigen) Cecilio Benjamin Other [facility] Other 05-13-2016 influenza virus vaccine, unspecified formulation [facility] 05-09-2015 influenza virus vaccine, split virus (incl. purified surface antigen) Cecilio Benjamin Other [facility] Other 05-09-2015 influenza virus vaccine, unspecified formulation [facility] 03-06-2015 pneumococcal conjuga te vaccine, 13 valent Jose Enrique Benji II Other [facility] 05-07-2014 tetanus and diphther ia toxoids, adsorbed, preservative free, for adult use (5 Lf of tetanus toxoid and 2 Lf of diphtheria toxoid) Cecilio Benjamin Other [facility] 04-23-2013 tetanus and diphther ia toxoids, adsorbed, preservative free, for adult use (5 Lf of tetanus toxoid and 2 Lf of diphtheria toxoid) Cecilio Benjamin Other [facility] 08-21-2012 pneumococcal polysaccharide vaccine, 23 valent Cecilio Benjamin Other [facility] 12-12-2011 zoster vaccine, live Jose Enrique Benji II Other [facility] Payers Date Payer Category Payer Self-pay 2022 Unknown [id number] 2018 Medicare [id number] 2006 Medicare [id number] 2006 Unknown [id number] 1959 Medicare [id number] 2.1 [id number] 1959 Unknown [id number] 2.16. [id number] 1941 Unknown [id number] 2.16.84 [id number] 1941 Unknown [id number] 2.16.84 [id number] 1941 Unknown [id number] 2.16.84 [id number] 1941 Unknown [id number] 2.16.84 [id number] 1941 Unknown [id number] 2.16.84 [id number] 1941 Unknown [id number] 2.16. [id number] Unknown [id number] 2.16.8 [id number] Social History Date Type Detail Facility Start: 05-09-2021 End: 03-15-2023 Sex Assigned At [facility] Start: 1940 Sex Assigned At Male F [facility] Start: 06-13-2017 End: 01-22-2024 Tobacco smoking status NHIS Never smoked tobacco [facility] Start: 06-13-2017 Tobacco use and exposure Smokeless tobacco non-user [facility] Start: 05-09-2021 Alcohol intake Current drinke r of alcohol (finding) [facility] Start: 12-11-2017 Alcohol Comment [facility] [facility] [employer] [facility] Start: 1940 Sex Assigned At Not on file [facility] Start: 05-09-2021 End: 03-15-2023 History of Social function [facility] Adult Depression Screening Assessment 1 [facility] Medical Equipment Procedure Code Equipment Code Equipment Origin al Text Equipment Identifier Dates Calvin Swivelock Tenodesis 8mm Biocomposite 19.5mm Suture [place] Eyelet - [id number] Start: 06-29-2017 Sleeve V40 +0mm Offset [place] Taper Titanium Adapter Hip - [id number] Start: 01-01-2018 Screw Trident Secur-Fit Torx 6.5mm Titanium 20mm Bone Sterile Acetabular - [id number] Start: 01-01-2018 Clinical Notes 08-25-2022 to 01-22-2024 Note Date & Type Note Facility 01-22-2024 Evaluation note Diagnosis Onset Date Chronic bronchitis, simple a cute Chronic kidney disease, stage 3a acute Elevated cholesterol acute Generalized anxiety disorder acute Hypertension acute Lumbar spondylolysis acute Obstructive sleep apnea acut e Medicare annual wellness visit, subsequent noneactive [facility] Work Phone: 1(139) 830-704302-09-2024 Evaluation note* Encounter Date Diagnosis Assessment Notes [...] and clinically improving, no further treatment necessary [facility] Other 02-02-2024 Evaluation note* Encounter Date Diagnosis Assessment Notes Treatment Notes Treatment Clinical Notes Sep, Carotid bruit, unspecified laterality (ICD-10 - R09.89) [facility] Other 01-23-2024 Evaluation note* Encounter Date Diagnosis [...] tid Initiate Prednisone _update office on Sunday [facility] Other 01-15-2024 Evaluation note* Encounter Date Diagnosis Assessment Notes Treatment Notes Treatment Clinical Notes Aug, JONATHAN (generalized anxiety disorder) (ICD-10 - F41.1) [facility] Other 12-13-2023 Evaluation note* Encounter Date Diagnosis [...] best 2/3 readings w/ goal < 135/85 [facility] Other 11-28-2023 Evaluation note* Encounter Date Diagnosis [...] daily for blisters and ulcerations. Moisturizers daily [facility] Other 11-21-2023 Evaluation note* Encounter Date Diagnosis [...] Call if develop increased pain or erythema [facility] Other 11-01-2023 Evaluation note* Encounter Date Diagnosis [...] use, the patient reduces the risk for NV, CVA, HTN, cardiac dysrhythmias and sudden cardiac [...] very active. No change in medical treatment [facility] Other 10-27-2023 Evaluation note* Encounter Date Diagnosis Assessment Notes Treatment Notes Treatment Clinical Notes May, JONATHAN (generalized anxiety disorder) (ICD-10 - F41.1) [facility] Other 10-11-2023 Evaluation note* Encounter Date Diagnosis [...] They may safely use Tylenol as needed. [facility] Other 08-01-2023 Miscellaneous Notes* Telephone Encounter - Neida Caballero MA - 03/20/2023 12:26 PM EDT DATE OF SERVICE: 03/15/2023 PATIENT'S PHONE NUMBERS: [phone] (home) OR [email or web address] PROVIDER: Dr. Jaeger PROCEDURE: Elective Pain Management Procedure Left message on machine Asked pt to call back and speak with the specialty triage nurse with update. Please obtain percentage better and the duration of improvement. Please inquire if there were any problems afterwards. Neida Brink documented in [facility] encounter[facility] Miscellaneous Notes* Telephone Encounter - Linda Knox LPN - 02/26/2023 4:42 PM EDT Spoke to patient in reguards to pre procedure instructions. Pt must have a wedding transportation driver. Pt advised to arrive 30 min [...] take. Advised on location of [facility] Pt will receive a follow up call several days after by a pricing/signage team member. If you experience any increase in weakness, difficulty walking or significant increase in pain thatlast more than 4 hours, please proceed to the Emergency Room and tell them you had a spine procedure done recently. Additionally, call us and notify us of these symptoms. Please call [phone] if you have any questions. Pt verbalized understanding. documented in this encounterOhio[facility]07-[facility]-2023 Miscellaneous Notes* Telephone Encounter - Linda Knox LPN - 02/19/2023 11:57 AM EDT Order approved Spoke to daughter in reguards to pre procedure instructions. Daughter given scheduling number [phone] Pt must have a wedding transportation driver. Pt advised to arrive 30 min prior to the time given by the materials scheduler. Pt advised will also receive a call the day before from the surgery center to confirm date/time. Pt can eat and drink as normal. and Pt can take medications as normal. No alcohol 24 hours prior. Pt is on ASA.- 81 mg okay to take. and must Advised on location of [facility] Pt will receive a follow up call several days after by a pricing/signage team member. If you experience any increase in weakness, difficulty walking or significant increase in pain thatlast more than 4 hours, please proceed to the Emergency Room and tell them you had a spine procedure done recently. Additionally, call us and notify us of these symptoms. Please call [phone] if you have any questions. Pt verbalized [...] call Celi as patient cannot hear well [phone] Patient has been identified by name and birthdate. Duration of symptoms: N/A Person calling: daughter: Celi Call patient at: N/A [phone] (home) [phone] (cell) Was an appointment scheduled: No Closing statement: Results or non-symptom based questions: Thank you for calling [facility], your call will be returned within the next business day. Camilla Jarrell Pss documented in this encounterOhio[facility]06-28-[facility]23 Evaluation note* Encounter Date Diagnosis Assessment [...] use, the patient reduces the risk for NV, CVA, HTN, cardiac dysrhythmias and sudden cardiac [...] (ICD-10 - F41.1) Healthy diet, keep active [facility] Other 06-22-2023 Evaluation note* Encounter Date Diagnosis Assessment Notes Treatment Notes Treatment Clinical Notes Jan, Elevated cholesterol (ICD-10 - E78.00) Jan, Stage 3a chronic kidney disease (ICD-10 - N18.31) Jan, Primary hypertension (ICD-10 - I10) Jan, Screening PSA (prostate specific antigen) (ICD-10 - Z12.5) Jan, High risk medication use (ICD-10 - Z79.899) [facility] Other 06-15-2023 Evaluation note* Encounter Date Diagnosis [...] this time 6. Follow up as needed [facility] Other 04-24-2023 Evaluation note* Encounter Date Diagnosis [...] use of statin, experiencing ADR and stopped [facility] Other 03-23-2023 Evaluation note* Encounter Date Diagnosis [...] - M17.12) Quad exercises, ice/heat and Tylenol [facility] Other 03-23-2023 Evaluation note* Encounter Date Diagnosis [...] injection well. 6. Follow up as needed [facility] Other 02-23-2023 Evaluation note* Encounter Date Diagnosis [...] is aware of the benefits associated with JAIC: With continued use, the patient reduces the risk for NV, CVA, HTN, cardiac dysrhythmias and sudden cardiac [...] tract symptoms (ICD-10 - N40.1) Symptoms tolerable [facility] Other 02-08-2023 Evaluation note* Encounter Date Diagnosis Assessment Notes Treatment Notes Treatment Clinical Notes Sep, Elevated cholesterol (ICD-10 - E78.00) Sep, Stenosis of right carotid artery (ICD-10 - I65.21) Sep, Retinal hemorrhage of right eye (ICD-10 - H35.61) [facility] Other 01-06-2023 Evaluation note* Encounter Date Diagnosis Assessment Notes Treatment Notes Treatment Clinical Notes Aug, Carotid bruit, unspecified laterality (ICD-10 - R09.89) [facility] Other Evaluation noteNo assessment information available [facility] Work Phone: Evaluation noteNo [employer] Other Evaluation note* Diagnosis Spinal stenosis, lumbar region with neurogenic claudication- Primary Lumbar radiculopathy, chronic Thoracic or lumbosacral neuritis or radiculitis, unspecified documented [facility] this [facility] Diagnosis Pseudoclaudication syndrome- Primary Spinal stenosis, lumbar region, with neurogenic claudication Lumbar radiculopathy Thoracic or lumbosacral neuritis or radiculitis, unspecified Pseudoclaudication syndrome Spinal stenosis, lumbar region, with neurogenic claudication Lumbar radiculopathy Thoracic or lumbosacral neuritis or radiculitis, unspecified documented in this encounter [facility] general Narrative - Reported* Type Description [...] JANELLE 06/2017 Hospitalization History see surgical history [facility] Other Hospital Discharge instructionsAmbulatory Orders* Referral to Pain Management Location: None [facility] Work Phone: Summary Purpose Family [...] section and content) DATE CREATED AUTHOR 02/06/2018 [facility] DATE CREATED AUTHOR AUTHOR'S ORGANIZ ATION 06/10/2018 [facility] DATE CREATED AUTHOR AUTHOR'S ORGANIZ ATION 11/06/[address] [facility] DATE CREATED AUTHOR AUTHOR'S ORGANIZ ATION 12/21/2022 [facility] DATE CREATED AUTHOR AUTHOR'S ORGANIZ ATION 03/15/2023 [facility] DATE CREATED AUTHOR AUTHOR'S ORGANIZ ATION 03/22/2023 [facility] DATE CREATED AUTHOR AUTHOR'S ORGANIZ ATION 02/06/2024 [facility] REASON FOR VISIT (unrecogniz ed section and content) Reason Comments Appointment Reason Comments Procedure Reason Comments Follow Up Phone Call Care Teams (unrecognized sec tion and content) Team Status: Inactive Member Role Status Dates Jose Enrique Leblanc II, MD Attending Provider Active Law Enforcement Officer Relationship Specialty Start Date End Date Cecilio Benjamin DO PCP - General Internal Medicine 09/04/13 Law Enforcement Officer Relationship Specialty Start Date End Date Cecilio Benjamin DO PCP - General Internal Medicine 09/04/13 Law Enforcement Officer Relationship Specialty Start Date End Date Cecilio Benjamin DO PCP - General Internal Medicine 09/04/13 Law Enforcement Officer Relationship Specialty Start Date End Date Cecilio [...] or prosecute any alcohol or drug abuse patient.[facility] HospitalIn the event this information is protected by the Federal Confidentiality of Alcohol and Drug Abuse Patient Records regulations: The Federal rules restrict any use of the information to criminally investigate or prosecute any alcohol or drug abuse patient.[facility] HospitalIn the event this information is protected by the [facility] Confidentiality of Alcohol and Drug Abuse Patient Records regulations: The Federal rules restrict any use of the information to criminally investigate or prosecute any alcohol or drug abuse patient.[facility] HospitalIn the event this information is protected by the Federal Confidentiality of Alcohol and Drug Abuse Patient Records regulations: The Federal rules restrict any use of the information to criminally investigate or prosecute any alcohol or drug abuse patient.[facility] FOR RECORDS PERTAINING TO PATIENTS WHO [...] BE BASED ON THE PRIMARY CLINICAL RECORDS. [facility]. provides no warranty or guarantee of the accuracy or completeness of information in this document.
[2024-02-13 09:20] LABS: Creatinine Urine Random 159.57 mg/dL (20.00-300.00); Protein Creatinine Ratio Urine 0.09; Total Protein Urine Random 14.6 mg/dL (<=11.9)
[2024-02-13 09:26] LABS: Alanine Aminotransferase 26 U/L (16-63); Albumin Globulin Ratio 1.1; Albumin Level 3.6 g/dL (3.4-5.0); Alkaline Phosphatase 60 U/L (46-116); Anion Gap 10.5; Aspartate Amino Transferase 18 U/L (15-37); BUN Creatinine Ratio 12.9; Bilirubin Total 0.8 mg/dL (0.2-1.0); Calcium 8.7 mg/dL (8.5-10.1); Carbon Dioxide 30.7 mmol/L (21.0-32.0); Chloride 103 mmol/L (98-107); Estimated GFR (African America 52 (>=60); Estimated GFR (Non-African Ame 43 (>=60); Globulin 3.4 g/dL; Glucose 123 mg/dL (74-106); Potassium 4.2 mmol/L (3.5-5.1); Sodium 140 mmol/L (136-145)
[2024-02-13 09:33] LABS: Basophils Percent Auto 0.6 % (0.2-2.0); Eosinophils Absolute Auto 0.6 10^3/uL (0.0-0.7); Hematocrit 44.1 % (42.0-54.0); Hemoglobin 15.2 g/dL (14.0-18.0); Immature Granulocytes Abs Auto 0.02 10^3/uL (0.00-0.03); Immature Granulocytes Pct Auto 0.3 % (0.0-0.5); Lymphocytes Percent Auto 16.8 % (20.5-60.0); Mean Corpuscular HGB Conc 34.5 g/dL (29.9-35.2); Mean Corpuscular Hemoglobin 31.3 pg (25.9-34.0); Mean Corpuscular Volume 90.7 fL (80.0-94.0); Mean Platelet Volume 10.8 fL (9.5-13.5); Monocytes Absolute Auto 0.5 10^3/uL (0.3-0.8); Monocytes Percent Auto 7.8 % (1.7-12.0); Neutrophils Percent Auto 64.5 % (43.0-75.0); Platelet Count 136 10^3/uL (150-450); Red Blood Count 4.86 10^6/uL (4.70-6.10); Red Cell Distribution Width 12.2 % (11.0-15.0); White Blood Count 6.2 10^3/uL (4.0-11.0)
== END 2024-02-13 08:31 | disposition home or self-care (01) ==
LOC: LAB 08:32
PROVIDERS: PCP Internal Medicine; Visit Provider Internal Medicine
DX: N18.31 Chronic kidney disease, stage 3a (principal); I10 Essential (primary) hypertension
CPT/HCPCS: 36415; 80053; 82570; 84156; 85025

== ENCOUNTER 2024-02-25 10:36 | Day surgery (SDC) | payer MEDICARE, OTHER, SELFPAY ==
[2024-02-25 10:41] VITALS: BP 165/83; PULSE 65; TEMP 36.9; O2SAT 97
--- OUTSIDE RECORDS SUMMARY | 2024-02-25 10:55 | XMS_ITS | CCD ---
Author Organization [facility] Care Team Providers Care Manager Retail Sales Name Role Phone CECILIO [phone] UNKNOWN Unavailable Unavailable BETH GOODEN Unavailable Unavailable GIACOMO, BETH Campbell Unavailable Unavailable GIACOMO, BETH Campbell Unavailable Unavailable Cecilio Benjamin Unavailable SOURAV, DR RUIZ Primary Care Unavailable DIAB ., JUS Admitting Unavailable DIAB ., JUS Attending Unavailable DIAB ., JUS Consulting Unavailable RASTEGAR, CHUCK Consulting Unavailable SOURAV, DR RUIZ Primary Care Unavailable HAY ., DR GONZALEZ Admitting Unavailable HAY ., DR GONZALEZ Attending Unavailable HAY ., DR GONZALEZ Consulting Unavailable DE LA FUENTE ., MR SWEET Consulting Unavailable KNABE, RADHA Consulting Unavailable SOURAV, DR RUIZ Admitting Unavailable SOURAV, DR RUIZ Attending Unavailable SOURAV, DR RUIZ Primary Care Unavailable SOURAV, DR RUIZ Consulting Unavailable ZIEBER, DR JONAS Mina Consulting Unavailable SOURAV, DR RUIZ Admitting Unavailable SOURAV, DR RUIZ Attending Unavailable SOURAV, DR RUIZ Primary Care Unavailable SOURAV, DR RUIZ Consulting Unavailable SOURAV, DR RUIZ Admitting Unavailable SOURAV, DR RUIZ Attending Unavailable SOURAV, DR RUIZ Primary Care Unavailable SOURAV, DR RUIZ Consulting Unavailable HAWLEY, WINCHA Consulting Unavailable MD Jose Enrique Leblanc II Attending Provider Jose Enrique Leblanc II Unavailable Jose Enrique Leblanc II Attending UnavailJose Enrique Malin II Admitting UnavailCecilio Mcgrath DO Primary Care Provider DAVID JAEGER Admitting Unavailable DAVID JAEGER Attending Unavailable CECILIO BENJAMIN Primary Care Unavailable Griselda WHARTON, Maddie Carreno Attending Unavailable Griselda WHARTON, Maddie Carreno Attending Unavailable Allergies Allergy Classification Reported Allergen(s) Allergy Type Date of Onset Reaction(s) Facility (7 sources) bacitracin; Translations: [bacitracin] Drug Allergy 09-11-2013 Unknown [facility] Repository (19 sources) Albuterol Drug Allergy Unknown [employer] Other (20 sources) HMG-CoA reductase inhibitor Drug allergy Unknown [employer] Other Medications Current Medications Medication Drug Class(es) [...] uth every 8 hours. (Mild pain reliever) [id number] 200 actuat albuterol 0.09 mg/actuat metered dose inhaler (11 sources) beta2-Adrenergic Agonist Start: End: take 2.5 mg by inhalation every four to six hours Albuterol Sulfate Active 2.5 MG INHALATION EVERY 4-6 HOURS 540 October 30, 2023 1:20pm Start: 10-10-2023 End: [...] on above: Take 4 tablets by mo [facility] 1 hour prior to procedure and 2 [...] on above: Take 1 tablet by christen twice daily. (Blood thinner to prevent blood clots) Calcium Carbonate / vitamin D3 (4 sources) take 1 tablet by mouth once daily CALCIUM CARBONATE/VITAMIN D3 (VITAMIN D-3 ORAL) Take 1 tablet by mouth once daily. 0 Active Comment on above: Take 1 tablet by christen once daily. COMPOUNDED PRESCRIPTION (4 sources) COMPOUNDED [...] on above: Take 1 capsule by mo [facility] twice daily. (Stool softener) doxycycline hyclate 100 mg oral capsule (15 sources) Tetracycline-class Drug Start: 10-17-2023 End: 10-19-2023 take 100 mg by mouth twice daily Doxycycline Hyclate Discontinued 100 MG PO Twice daily October 17, 2023 1:00am October 19, 2023 11:06am Start: 07-10-[address] [facility] every twelve hours Doxycycline Hyclate 100 MG [...] on above: Take 2 tablets by mo ut. Take 2 tablets by mo [facility] daily at bedtime. methylPREDNISolone (1 source) Corticosteroid [...] 01-22-2024 Episodic Other aftercare (2 sources) Other fdc (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 therapy; Translations: [OTH PENITENTIARY CURRENT DRUG THERAPY] Onset: 11-06-2022 Episodic Other [...] Test Name Value Interpretation Reference Range Facility [facility] 03-20-2023 [facility] Telephone (SPNMAV) STEPHENRUPERTO ([id number]) 1940 [employer] Date Time Provider Department 03/20/23 DAVID JAEGER SPJEREMYAV During your visit today, we recorded the following information about you: Neida Porter MA 03/20/2023 12:30 PM Signed DATE OF SERVICE: 03/15/2023 PATIENT'S PHONE NUMBERS: [phone] (home) OR @Kapta@ PROVIDER: Dr. Jaeger PROCEDURE: Elective Pain Management [...] work Requesting to call his CELL ONLY [phone] what to do next Leave Detailed messages Neida Porter MA 03/21/2023 2:01 PM Signed Formatted spine intervention order and sent to Dr. Jaeger for approval. Neida Porter MA 03/21/2023 2:01 PM Signed Addended by: NEIDA PORTER on: 03/21/2023 02:01 PM Modules accepted: David Dorsye DO 03/21/2023 2:06 PM Signed Addended by: [...] of spine injection schedulers to call at [phone]. Patient will call if he wants to schedule another injection. 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 Author [...] offered a procedure / [facility]. Patient and I have discussed [...] surgery/procedure as indicated on the consent form. [facility] approved time out was performed identifying the site, side and level of procedure prior to start of procedure. [facility] - ELECTIVE PROCEDURE Lumbar Transforaminal Epidural Steroid [...] the entire procedure. David Jaeger DO, MBA [facility] 02-26-2023 [facility] Telephone (SPNMAV) RUPERTO THORPE ([id number]) 1940 [employer] Date Time Provider Department 02/26/23 DAVID JAEGRE During your visit today, we recorded the following information about you: Linda Knox LPN 02/26/2023 4:49 PM Signed Spoke to patient in [facility] to pre procedure instructions. Pt must have a test car driver. Pt advised to arrive 30 min [...] take. Advised on location of ASC-2nd floor [facility] Pt will receive a follow up call several days after by a endless steamer tender. If you experience any increase in weakness, difficulty walking or significant increase in pain that last more than 4 hours, please proceed to the Emergency Room and tell them you had a spine procedure done recently. Additionally, call us and notify us of these symptoms. Please call [phone] if you have any questions. Pt verbalized understanding. Allergies As of Date: 02/26/2023 Noted Allergy Reaction BACITRACIN 09/11/2013 16 - Unknown Date Reviewed: 07/19/2021 Reviewed by: Kathrine Sood, BEBO - Fully Assessed Reason for Visit: Procedure [...] Status:Closed by LINDA KNOX [facility]PN [facility] Telephone (SPNMAV) RUPERTO THORPE ([id number]) 1940 [employer] Date Time Provider Department 02/19/23 DAVID JAEGER SPSCAV During your visit today, we recorded the following information about you: Camilla Jarrell [facility] 02/19/2023 9:27 AM Signed Ruperto [...] call Celi as patient cannot hear well [phone] Patient has been identified by name and birthdate. Duration of symptoms: N/A Person calling: daughter: Celi Call patient at: N/A [phone] (home) [phone] (cell) Was an appointment scheduled: No Closing statement: Results or non-symptom based questions: Thank you for calling [facility], your call will be returned within the next business day. Camilla Jarrell [facility] Linda Knox LPN 02/19/2023 9:45 AM Signed Spine Intervention order formatted for review Linda Knox LPN 02/19/2023 11:59 AM Signed Order approved Spoke to daughter in [facility] to pre procedure instructions. Daughter given scheduling number [phone] Pt must have a test car driver. Pt advised to arrive 30 min prior to the time given by the prosthodontist/educator. Pt advised will also receive a call the day before from the surgery center to confirm date/time. Pt can eat and drink as normal. and Pt can take medications as normal. No alcohol 24 hours prior. Pt is on ASA.- 81 mg okay to take. and must Advised on location of ASC-2nd floor [facility] Pt will receive a follow up call several days after by a endless steamer tender. If you experience any increase in weakness, difficulty walking or significant increase in pain that last more than 4 hours, please proceed to the Emergency Room and tell them you had a spine procedure done recently. Additionally, call us and notify us of these symptoms. Please call [phone] if you have any questions. Pt verbalized understanding. 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 Normal [facility] XR knee LT 4V*on 11-09-2022 XR knee LT 4V* [facility] [place] [address] [place] [address] XRay Report Signed Patient: Ruperto Thorpe MR#: [id number] 5 : 1940 Acct:[id number] Age/Sex: 82 / M ADM Date: 11/09/22 Loc: [facility] Room: Type: [facility] Attending Dr: Jose Enrique Leblanc II, MD [...] Darren Yuen M.D.11/09/2022 5:03 PM Dictation Location: [place] [address] Transcribed By: [facility] 11/09/22 170 Dictated By: Darren Yuen II, MD 11/09/221700 Signed By: 11/09/22 170 Normal [facility] XR knee LT 4V* [facility] [employer] Other XR knee LT 4V* [facility] [employer] Other XR knee LT 4V* [address] [place] [address] [employer] Other XR knee LT 4V* [place] [address] No rt [employer] Other XR knee LT 4V* XRay Report [employer] Other XR knee LT 4V* Signed [employer] Other XR knee LT 4V* Patient: Ruperto Thorpe MR#: [id number] [employer] Other XR knee LT 4V* 5 [employer] Other XR knee LT 4V* : 1940 Acct:[id number] [employer] Other XR knee LT 4V* Age/Sex: 82 / M ADM Date: 11/09/22 [employer] Other XR knee LT 4V* Loc: [facility]XD Room: Type : [facility] [employer] Other XR knee LT 4V* Attending Dr: Jose Enrique Leblanc II, MD [employer] Other XR knee LT 4V* Copies to: Jose Enrique Leblanc MD [employer] Other XR knee LT 4V* Ordering Provider: Jose Enrique Leblanc MD [employer] Other XR knee LT 4V* Date of Service: 11/09/22 [employer] Other XR knee LT 4V* XR/XR knee LT 4V*: Acute pain of left knee [employer] Other XR knee LT 4V* XR knee LT 4V* 11/09/2022 3:15 PM [employer] Other XR knee LT 4V* SIGNS AND SYMPTOMS: Acute pain of left knee [employer] Other XR knee LT 4V* PROTOCOL: Frontal, lateral, oblique, and sunrise views of the left knee [employer] Other XR knee LT 4V* COMPARISON: 11/05/2022 [employer] Other XR knee LT 4V* FINDINGS: [employer] Other XR knee LT 4V* There is similar narrowing of the weightbearing joint spaces with chondrocalcinosis of the menisci [employer] Other XR knee LT 4V* suggesting underlyin g CPPD. There is narrowing of the patellofemoral joint space with spurring at [employer] Other XR knee LT 4V* the superior pole of patella. There is a small joint effusion. No soft tissue swelling. No acute [employer] Other XR knee LT 4V* displaced fracture. Vascular calcifications are present posteriorly. [employer] Other XR knee LT 4V* XR/XR knee LT 4V* [employer] Other XR knee LT 4V* IMPRESSION: [employer] Other XR knee LT 4V* Tricompartmental degenerative changes are noted in the left knee with a small joint effusion. [employer] Other XR knee LT 4V* There is chondrocalcinosis of the menisci suggesting underlying CPPD. [employer] Other XR knee LT 4V* Impression dictated by: Darren Yuen M.D.11/09/2022 5:03 PM [employer] Other XR knee LT 4V* Dictation Location: [place] [address] [employer] Other XR knee LT 4V* Transcribed By: PWS 11/09/22 [facility] [employer] Other XR knee LT 4V* Dictated By: Darren Yuen II, MD 11/09/22 [facility] [employer] Other XR knee LT 4V* Signed By: [employer] Other XR knee LT 4V* 11/09/22 [facility] [employer] Other XR pelvis 1-2Von 11-09-2022 XR pelvis 1-2V [facility] [address] [place] [address] XRay Report Signed Patient: Ruperto Thorpe MR#: [id number] 5 : 1940 Acct:[id number] Age/Sex: 82 / M ADM Date: 11/09/22 [place] [facility] [place]: Type: [facility] Attending Dr: Jose Enrique Leblanc II, MD [...] Darren Yuen M.D.11/09/2022 5:01 PM Dictation Location: [place] [address] Transcribed By: [facility] 11/09/22 170 Dictated By: Darren Yuen II, MD 11/09/221699 Signed By: 11/09/22 170 [facility] XR pelvis 1-2V XR/XR pelvis 1-2V: Acute pain of left knee [employer] Other XR pelvis 1-2V XR pelvis 1-2V 11/09/2022 3:15 PM [employer] Other XR pelvis 1-2V SIGNS AND SYMPTOMS: Left knee pain [employer] Other XR pelvis 1-2V PROTOCOL: Frontal radiograph of the chest [employer] Other XR pelvis 1-2V COMPARISON: None [facility] [employer] Other XR pelvis 1-2V There is mild narrowing of the left hip joint space with subcortical cystic change on both sides of [employer] Other XR pelvis 1-2V the joint along the acetabular there is chondrocalcinosis of the labrum overlying the superior [employer] Other XR pelvis 1-2V acetabular rim and superior lateral femoral head. The bony ring of the pelvis is intact. There is [employer] Other XR pelvis 1-2V total right hip arthroplasty. Degenerative changes are noted in the sacroiliac joints. No fracture [employer] Other XR pelvis 1-2V is [employer] Other XR pelvis 1-2V XR/XR pelvis 1-2V [employer] Other XR pelvis 1-2V Degenerative changes are noted in the left hip with findings suspicious for previous labral [employer] Other XR pelvis 1-2V pathology. [employer] Other XR pelvis 1-2V Postoperative change s are noted in the right hip with total right hip arthroplasty hardware. [employer] Other XR pelvis 1-2V Impression dictated by: Darren Yuen M.D.11/09/2022 5:01 PM [employer] Other XR pelvis 1-2V Transcribed By: COLIN 11/09/22 170 [employer] Other XR pelvis 1-2V Dictated By: Darren Yuen II, MD 11/09/22 1700 [employer] Other XR pelvis 1-2V 11/09/22 1701 [employer] Other XR KNEE LT 4V or >on [...] There is chondrocalcinosis. Soft tissues: Unremarkable. IMPRESSION: Jlmo-cm-oqyiryea osteoarthritis as described above. Chondrocalcinosis. No acute fracture or dislocation. Electronically authenticated by: CHUCK SANDRAJESSICA Date: 2022-11-05 11:[address] [facility] US CAROTID ART BILon 023 US [...] JONAS MCLEOD Date: 2022-09-26 10:[address] [facility] CBC AUTO DIFFon 08-10-2022 BASO # 0.0 103/ul Normal 0.0-0.[address] [facility] Comment on above: Performed By: #### C BC #### [facility] [address] [place] [address] Dr. Alexis Brink Basophils/100 WBC (Bld) 0.7 % Normal 0.2-2.[address] [facility] Comment on above: Performed By: #### C BC #### [facility] [address] [place] [address] Dr. Alexis Brink EO # 0.3 103/ul Normal 0.0-0.[address] [facility] Comment on above: Performed By: #### C BC #### [facility] [address] [address] [address] Alexis Brink Eosinophils/100 WBC (Bld) 6.1 % Normal 0.9-7.0 [facility] Comment on above: Performed By: #### C BC #### [facility] [address] [place] [address] [address] Alexsi Brink Erythrocyte distribution width (RBC) [Ratio] 12.1 % Normal 11.0-15.0 [facility] Comment on above: Performed By: #### C BC #### [facility] [address] [place] [address] Dr. Alexis Brink Hematocrit (Bld) [Volume fraction] 44.2 % Normal 42.0-54.0 [facility] Comment on above: Performed By: #### C BC #### [facility] [address] [place] [address] Dr. Alexis Brink Hemoglobin (Bld) [Mass/Vol] 14.9 g/dL Normal 14.0-18.[address] [facility] Comment on above: Performed By: #### C BC #### [facility] [address] [place] [address] Dr. Alexis Brink IG # 0.01 10e3/ul Normal 0.00-0.03 [facility] Comment on above: Performed By: #### C BC #### [facility] [address] [place] [address] Dr. Alexis Brink IG % 0.2 % Normal 0.0-0.5 [facility] Comment on above: Performed By: #### C BC #### [facility] [address] [place] [address] Dr. Alexis Brink LYMPH # 1.2 103/ul Normal 1.2-3.[address] [facility] Comment on above: Performed By: #### C BC #### [facility] [address] [place] [address] Dr. Alexis Brink Lymphocytes/100 WBC (Bld) 21.3 % Normal 20.5-60.0 [facility] Comment on above: Performed By: #### C BC #### [facility] [address] [place] [address] Dr. Alexis Brink MANUAL DIFF REQ NO Normal The [facility] Comment on above: Performed By: #### C BC #### [facility] [address] [place] [address] Dr. Alexis Brink MCH (RBC) [Entitic mass] 30.7 pg Normal 25.9-34.0 [facility] Comment on above: Performed By: #### C BC #### [facility] [address] [place] [address] Dr. Alexis Brink MCHC (RBC) [Mass/Vol] 33.7 g/dL Normal 29.9-35.2 [facility] Comment on above: Performed By: #### C BC #### [facility] [address] [place] [address] Dr. Alexis Brink MCV (RBC) [Entitic vol] 91.1 fL Normal 80.0-94.0 [facility] Comment on above: Performed By: #### C BC #### [facility] [address] [place] [address] Dr. Alexis Brink MONO # 0.5 103/ul Normal 0.3-0.8 [facility] Comment on above: Performed By: #### C BC #### [facility] [address] [place] [address] Dr. Alexis Brink Monocytes/100 WBC (Bld) 8.5 % Normal 1.7-12.0 [facility] Comment on above: Performed By: #### C BC #### [facility] [address] [place] [address] Dr. Alexis Brink NEUT # 3.5 103/ul Normal 1.4-6.[address] [facility] Comment on above: Performed By: #### C BC #### [facility] [address] [place] [address] Dr. Alexis Brink Neutrophils/100 WBC (Bld) 63.2 % Normal 43.0-75.[address] [facility] Comment on above: Performed By: #### C BC #### [facility] [address] [place] [address] Dr. Alexis Brink Platelet mean volume (Bld) [Entitic vol] 10.0 fL Normal 9.5-13.[address] [facility] Comment on above: Performed By: #### C BC #### [facility] [address] [place] [address] Dr. Alexis Brink PLT 120 103/ul Critically low 150-450 [facility] Comment on above: Performed By: #### C BC #### [facility] [address] [place], [place] [address] Dr. Alexis Brink RBC 4.85 106/ul Normal 4.70-6.10 [facility] Comment on above: Performed By: #### C BC #### [facility] [address] [place], [place] [address] Dr. Alexis Brink WBC 5.6 103/ul Normal 4.0-11.0 [facility] Comment on above: Performed By: #### C BC #### [facility] [address] [place], [place] [address] Dr. Alexis Brink Covid-19 PCR ([facility])on 07-21 SARS-CoV-2 (COVID-19) RNA RICKY+probe Ql (Unsp spec) Not detected Normal NOT DETECTED [facility] Comment on above: Result Comment: This test is not yet approved or cleared by the [place] FDA. When there are no FDA-approved or cleared tests available, and other criteria are met, FDA can make tests available under an emergency access mechanism called an Emergency Use Authorization (EUA). The EUA for this test is supported by the Procedure Manager of Health and Human Service's (HHS's) declaration [...] with SARS-CoV-2. Performed By: #### C VDTBH ####[facility] [address] [place], [place] [address]HyDr. Alexis Brink INFLUENZA A AND B AGon 08-10 INFLUANEGH SEE BELOW Normal [facility] Comment on above: Result Comment: Nega tive for Flu A protein angiten. Infection due to Flu A cannot be ruled out. Flu A angiten in the sample may be below the detection limit of the test. Performed By: #### I NFLUAB ####[facility] [address] [place] [address]Dr. Alexis Brink INFLUBNEGH SEE BELOW Normal [facility] Comment on above: Result Comment: Nega tive for Flu B protein antigen. Infection due to Flu B cannot be ruled out. Flu B antigen in the sample may be below the detection limit of the test. Performed By: #### I NFLUAB ####[facility] [address] [place] [address]Dr. Alexis Brink INFLUENZA A AG Negative Normal NEGATIVE SEE COMMENT [facility] Comment on above: Performed By: #### I NFLUAB ####[facility] [address] [place], [place] [address]Dr. Alexis Brink INFLUENZA B AG Negative Normal NEGATIVE SEE COMMENT [facility] Comment on above: Performed By: #### I NFLUAB ####[facility] [address] [place], [place] [address]DrLainey Brink INTERNAL CONTROLS Within Normal Limits Normal Wi thin Normal Limits [facility] Comment on above: Performed By: #### I NFLUAB ####[facility] [address] [place] [address]DrLainey Brink PROF CHEM 8 (BAS METB)on Anion gap [Moles/Vol] 11.4 mmol/L Normal [facility] Comment on above: Performed By: #### B NARA, HSTROPN #### [facility] [address] [address] [address] Alexis Brink Calcium [Mass/Vol] 8.9 mg/dL Normal 8.5-10.1 [facility] Comment on above: Performed By: #### B NARA, HSTROPN #### [facility] [address] [address] [address] Alexis Brink Chloride [Moles/Vol] 102 mmol/L Normal 98-[address] [facility] Comment on above: Performed By: #### B NARA, HSTROPN #### [facility] [address] [address] [address] Alexis Brink CO2 [Moles/Vol] 28.8 mmol/L Normal 21.0-32.0 [facility] Comment on above: Performed By: #### B MP, HSTROPN #### [facility] [address] [address] [address] Alexis Brink Creatinine [Mass/Vol] 1.35 mg/dL Critically high 0.70-1.30 [facility] Comment on above: Performed By: #### B MP, HSTROPN #### [facility] [address] [address] [address] Alexis Brink EGFR-AF KAZAKH >60 Normal >=60 [facility] Comment on above: Performed By: #### B MP, HSTROPN #### [facility] [address] [place] [address] Dr. Alexis Brink EGFR-NON AF KAZAKH 51 mL/min/1.73m2 Critically low >=60 [facility] Comment on above: Performed By: #### B MP, HSTROPN #### [facility] [address] [place] [address] Dr. Alexis Brink Glucose [Mass/Vol] 109 mg/dL Critically high 74-106 [facility] Comment on above: Performed By: #### B MP, HSTROPN #### [facility] [address] [place] [address] [address] Alexis Brink Potassium [Moles/Vol] 4.2 mmol/L Normal 3.5-5.1 [facility] Comment on above: Performed By: #### B MP, HSTROPN #### [facility] [address] [place] [address] Dr. Alexis Brink Sodium [Moles/Vol] 138 mmol/L Normal 136-145 [facility] Comment on above: Performed By: #### B MP, HSTROPN #### [facility] [address] [address] [address] Alexis Brink Urea nitrogen [Mass/Vol] 18.0 mg/dL Normal 7.0-18.0 [facility] Comment on above: Performed By: #### B NARA HSTROPN #### [facility] [address] [address] [address] Alexis Brink Urea nitrogen/Creatinin e [Mass ratio] 13.3 mg/mg Normal [facility] Comment on above: Performed By: #### B NARA HSTROPN #### [facility] [address] [address] [address] Alexis Brink TROPONIN, HIGH SENSITIVITYon 08-10-2022 HSTROP 22.2 pg/mL Normal 4.0-76.1 [facility] Comment on above: Result Comment: CUT- OFF POINTS HAVE BEEN ESTABLISHED BASED ON THE FOURTH UNIVERSAL DEFINITIONS OF MYOCARDIAL INFARCTION. THE UPPER REFERENCE LIMIT (URL) OF TROPONIN, DEFINED THE 99TH PERCENTILE OF cTnI DISTRIBUTION IN A REFERENCE POPULATION, HAS BEEN CONFIRMED THE DECISION THRESHOLD FOR [place] DIAGNOSIS. Performed By: #### B NARA HSTROPN #### [facility] [address] [place] [address] Dr. Alexis Brink XR CHEST 1 Von [...] by: RADHA UNDERWOOD Date: 2022-08-10 16:07 Normal [facility] CBC AUTO DIFFon 02-09-2022 BASO # 0.0 103/ul Normal 0.0-0.1 [facility] Comment on above: Performed By: #### C BC #### [facility] [address] [address] [address] Alexis Brink Basophils/100 WBC (Bld) 0.6 % Normal 0.2-2.0 [facility] Comment on above: Performed By: #### C BC #### [facility] [address] [place] [address] Dr. Alexis Brink EO # 0.5 103/ul Normal 0.0-0.7 [facility] Comment on above: Performed By: #### C BC #### [facility] [address] [place] [address] Dr. Alexis Brink Eosinophils/100 WBC (Bld) 7.2 % Critically high 0.9-7.0 [facility] Comment on above: Performed By: #### C BC #### [facility] [address] [place] [address] Dr. Alexis Brink Erythrocyte distribution width (RBC) [Ratio] 12.4 % Normal 11.0-15.0 [facility] Comment on above: Performed By: #### C BC #### [facility] [address] [place] [address] Dr. Alexis Brink Hematocrit (Bld) [Volume fraction] 45.5 % Normal 42.0-54.0 [facility] Comment on above: Performed By: #### C BC #### [facility] [address] [place] [address] Dr. Alexis Brink Hemoglobin (Bld) [Mass/Vol] 15.4 g/dL Normal 14.0-18.0 [facility] Comment on above: Performed By: #### C BC #### [facility] [address] [place] [address] Dr. Alexis Brink IG # 0.02 10e3/ul Normal 0.00-0.03 [facility] Comment on above: Performed By: #### C BC #### [facility] [address] [place] [address] Dr. Alexis Brink IG % 0.3 % Normal 0.0-0.5 [facility] Comment on above: Performed By: #### C BC #### [facility] [address] [place] [address] Dr. Alexis Brink LYMPH # 1.3 103/ul Normal 1.2-3.8 [facility] Comment on above: Performed By: #### C BC #### [facility] [address] [place] [address] Dr. Alexis Brink Lymphocytes/100 WBC (Bld) 17.8 % Critically low 20.5-60.0 [facility] Comment on above: Performed By: #### C BC #### [facility] [address] [place] [address] Dr. Alexis Brink MANUAL DIFF REQ NO Normal [facility] Comment on above: Performed By: #### C BC #### [facility] [address] [place] [address] Dr. Alexis Brink MCH (RBC) [Entitic mass] 31.4 pg Normal 25.9-34.0 [facility] Comment on above: Performed By: #### C BC #### [facility] [address] [place] [address] Dr. Alexis Brink MCHC (RBC) [Mass/Vol] 33.8 g/dL Normal 29.9-35.2 [facility] Comment on above: Performed By: #### C BC #### [facility] [address] [place] [address] Dr. Alexis Brink MCV (RBC) [Entitic vol] 92.9 fL Normal 80.0-94.0 [facility] Comment on above: Performed By: #### C BC #### [facility] [address] [place] [address] Dr. Alexis Brink MONO # 0.7 103/ul Normal 0.3-0.8 [facility] Comment on above: Performed By: #### C BC #### [facility] [address] [place] [address] Dr. Alexis Brink Monocytes/100 WBC (Bld) 9.6 % Normal 1.7-12.0 [facility] Comment on above: Performed By: #### C BC #### [facility] [address] [place] [address] Dr. Alexis Brink NEUT # 4.6 103/ul Normal 1.4-6.5 [facility] Comment on above: Performed By: #### C BC #### [facility] [address] [place], [place] [address] Dr. Alexis Brink Neutrophils/100 WBC (Bld) 64.5 % Normal 43.0-75.0 [facility] Comment on above: Performed By: #### C BC #### [facility] [address], [place] [address] Dr. Alexis Brink Platelet mean volume (Bld) [Entitic vol] 10.7 fL Normal 9.5-13.5 [facility] Comment on above: Performed By: #### C BC #### [facility] [address] [address] [address] Alexis Brink PLT 130 103/ul Critically low 150-450 [facility] Comment on above: Performed By: #### C BC #### [facility] [address] [address] [address] Alexis Brink RBC 4.90 106/ul Normal 4.70-6.[address] [facility] Comment on above: Performed By: #### C BC #### [facility] [id number] Alexis Brink WBC 7.1 103/ul Normal 4.0-11.0 [facility] Comment on above: Performed By: #### C BC #### [facility] [id number] Alexis Brink DIRECT LDLon 02-09-2022 Cholesterol in LDL [Mass/Vol] 144 mg/dL Normal [facility] Comment on above: Performed By: #### D LDL, BMP ####[facility] [address] [id number]. Alexis Brink DLDL NORMAL SEE BELOW Normal [facility] Comment on above: Result Comment: <100 mg/dl OPTIMAL 100 - 129 mg/dl NEAR OR ABOVE OPTIMAL 130 - 159 mg/dl BORDERLINE HIGH 160 - 189 mg/dl HIGH >190 mg/dl VERY HIGH Performed By: #### D LDL, BMP ####[facility] [id number] [id number][address] Alexis Brink PROF CHEM 8 (BAS METB)on Anion gap [Moles/Vol] 9.3 mmol/L Normal [facility] Comment on above: Performed By: #### D LDL, BMP #### [facility] [address] [address] [address] Alexis Brink Calcium [Mass/Vol] 8.7 mg/dL Normal 8.5-10.1 [facility] Comment on above: Performed By: #### D LDL, BMP #### [facility] [address] [address] [address] Alexis Brink Chloride [Moles/Vol] 103 mmol/L Normal 98-107 [facility] Comment on above: Performed By: #### D LDL, BMP #### [facility] [address] [place] [address] Dr. Alexis Brink CO2 [Moles/Vol] 32.1 mmol/L Critically high 21.0-32.0 [facility] Comment on above: Performed By: #### D LDL, BMP #### [facility] [address] [place] [address] Dr. Alexis Brink Creatinine [Mass/Vol] 1.35 mg/dL Critically high 0.70-1.[address] [facility] Comment on above: Performed By: #### D LDL, BMP #### [facility] [address] [place] [address] Dr. Alexis Brink EGFR-AF KAZAKH >60 Normal >=60 [facility] Comment on above: Performed By: #### D LDL, BMP #### [facility] [address] [place] [address] Dr. Alexis Brink EGFR-NON AF KAZAKH 51 mL/min/1.73m2 Critically low >=[address] [facility] Comment on above: Performed By: #### D LDL, BMP #### [facility] [address] [place] [address] Dr. Alexis Brink Glucose [Mass/Vol] 90 mg/dL Normal 74-106 [facility] Comment on above: Performed By: #### D LDL, BMP #### [facility] [address] [address] [address] Alexis Brink Potassium [Moles/Vol] 4.4 mmol/L Normal 3.5-5.1 [facility] Comment on above: Performed By: #### D LDL, BMP #### [facility] [address] [place] [address] Dr. Alexis Brink Sodium [Moles/Vol] 140 mmol/L Normal 136-145 [facility] Comment on above: Performed By: #### D LDL, BMP #### [facility] [address] [place] [address] Dr. Alexis Brink Urea nitrogen [Mass/Vol] 16.0 mg/dL Normal 7.0-18.0 [facility] Comment on above: Performed By: #### D LDL, BMP #### [facility] [address] [place] [address] Dr. Alexis Brink Urea nitrogen/Creatinin e [Mass ratio] 11.9 mg/mg Normal [facility] Comment on above: Performed By: #### D LDL, BMP #### [facility] [address] [place] [address] Dr. Alexis Brink UA RANDOMon 02-09-2022 Bilirubin Ql (U) Negative Normal NEGATIVE [facility] Comment on above: Performed By: #### U A #### [facility] [address] [place] [address] Dr. Alexis Brink Clarity (U) CLEAR Normal CLEAR [facility] Comment on above: Performed By: #### U A #### [facility] [address] [place] [address] Dr. Alexis Brink Color (U) YELLOW Normal YELLOW [facility] Comment on above: Performed By: #### U A #### [facility] [address] [place] [address] Dr. Alexis Brink Glucose Ql (U) Negative Normal NEGATIVE [facility] Comment on above: Performed By: #### U A #### [facility] [address] [place] [address] Dr. Alexis Brink Hemoglobin Ql (U) Negative Normal NEGATIVE [facility] [place] Comment on above: Performed By: #### U A #### [facility] [address] [place] [address] Dr. Alexis Brink Ketones Ql (U) Negative Normal NEGATIVE [facility] Comment on above: Performed By: #### U A #### [facility] [address] [place] [address] Dr. Alexis Brink LEUKOCYTES Negative Normal NEGATIVE [facility] Comment on above: Performed By: #### U A #### [facility] [address] [place] [address] Dr. Alexis Brink Nitrite Ql (U) Negative Normal NEGATIVE [facility] Comment on above: Performed By: #### U A #### [facility] [address] [place] [address] Dr. Alexis Brink pH (U) 7.0 [pH] Normal 5-9 [facility] Comment on above: Performed By: #### U A #### [facility] [address] [place] [address] Dr. Alexis Brink SPEC GRAVITY 1.015 Normal 1.005-<=1.[address] [facility] Comment on above: Performed By: #### U A #### [facility] [address] [place] [address] Dr. Alexis Brink UA PROTEIN Negative Normal NEGATIVE/ TRACE [facility] Comment on above: Performed By: #### U A #### [facility] [address] [place] [address] Dr. Alexis Brink Urobilinogen Qn (U) 1.0 {Kay'U}/dL Normal 0.2 - 1.0 [facility] Comment on above: Performed By: #### U A #### [facility] [address] [place] [address] Dr. Alexis Brink XR CHEST 2 Von [...] by: LYDIA HAWLEY Date: 2021-12-06 15:42 Normal [facility] Nonvisit Note - PTon 018 Nonvisit Note - PT Cert letter refaxed for signature this date - third and final attempt. Normal [facility] Nonvisit Note - PTon 018 Nonvisit Note - PT Cert letter refaxed to Dr Gooden's office. Second attempt. Normal [facility] Coding Summary.on 01-25-2018 Coding Summary. CODING DATE: 01/25/2018 [facility] STATUS: PAYOR: Medicare ADMIT DX: REASON [...] [place] Date Saved: 01/25/2018 10:54 am Normal [facility] Coding Summary. CODING DATE: 01/25/2018 [facility] STATUS: PAYOR: Medicare ADMIT DX: REASON [...] [place] Date Saved: 01/25/2018 10:54 am Normal [facility] SURGICAL PATHOLOGYon 018 SURGICAL PATHOLOGY [facility]: [id number] Physician: BETH GOODEN MD FINAL DIAGNOSISRight hip, [...] to 8.5 x 8.5 x 1.8 cm. Photo Finish Photographer sectionsare submitted as follows: A1 soft tissue, A2 bone submitted afterdecalcification.B F/wlz 01/01/2018 Gross examination performed at [facility], [address] [place], [place] [id number] of Report: 01/07/2018Date of Procedure: 01/01/2018Date of Receipt: 01/01/2018Submitted by: BETH GOODEN MDLocation: [id number] interpretation performed at [facility], [address] [place], [place] [id number]. Normal [facility] Comment on above: Performed By: #### S ####See report for performing lab information. Vital Signs Date Time Vital Sign Value Performing Clinician Facility 01-22-2024 09:16-0400 Body height 167.64 cm [facility] [place] [facility] 01-22-2024 09:16-0400 Body mass index (BMI) [Ratio] 29.3 kg/m2 [facility] 01-22-2024 09:16-0400 Body weight 82.55 kg [facility] [place] [facility] 01-22-2024 09:16-0400 Diastolic blood pressure 72 mm[Hg] [facility] 01-22-2024 09:16-0400 Heart rate 64 /min [facility] [place] [facility] 01-22-2024 09:16-0400 Respiratory rate 20 /min [facility] 01-22-2024 09:16-0400 Systolic blood pressure 131 mm[Hg] [facility] 09-28-2023 11:00-0500 Body height 167.64 cm Cecilio Ball Other [facility] Other 09-28-2023 11:00-0500 Body mass index (BMI) [Ratio] 30.24 kg/m2 Cecilio Ball Other [facility] Other 09-28-2023 11:00-0500 Body weight 85 kg Cecilio Ball Other [facility] Other 09-28-2023 11:00-0500 Respiratory rate 20 /min Cecilio Ball Other [facility] Other 09-28-2023 11:00-0500 SaO2% (BldA) [Mass fraction] 97 % Cecilio Ball Other [facility] Other 09-11-2023 10:45-0500 Body height 167.64 cm Cecilio Ball Other [facility] Other 09-11-2023 10:45-0500 Body mass index (BMI) [Ratio] 29.86 kg/m2 Cecilio Ball Other [facility] Other 09-11-2023 10:45-0500 Body temperature 97.5 [degF] Cecilio Ball Other [facility] Other 09-11-2023 10:45-0500 Body weight 83.92 kg Cecilio Ball Other [employer] Other 09-11-2023 10:45-0500 Diastolic blood pressure 81 mm[Hg] Cecilio Ball Other [employer] Other 09-11-2023 10:45-0500 Respiratory rate 20 /min Cecilio Ball Other [employer] Other 09-11-2023 10:45-0500 SaO2% (BldA) [Mass fraction] 98 % Cecilio Ball Other [employer] Other 09-11-2023 10:45-0500 Systolic blood pressure 161 mm[Hg] Cecilio Ball Other [employer] Other 08-01-2023 10:15-0500 Body height 167.64 cm Cecilio Ball Other [employer] Other 08-01-2023 10:15-0500 Body mass index (BMI) [Ratio] 29.86 kg/m2 Cecilio Ball Other [employer] Other 08-01-2023 10:15-0500 Body weight 83.92 kg Cecilio Ball Other [employer] Other 08-01-2023 10:15-0500 Diastolic blood pressure 79 mm[Hg] Cecilio Ball Other [employer] Other 08-01-2023 10:15-0500 Respiratory rate 20 /min Cecilio Ball Other [employer] Other 08-01-2023 10:15-0500 Systolic blood pressure 172 mm[Hg] Cecilio Ball Other [employer] Other 07-17-2023 10:15-0500 Body height 167.64 cm Cecilio Ball Other [employer] Other 07-17-2023 10:15-0500 Body mass index (BMI) [Ratio] 29.89 kg/m2 Cecilio Ball Other [employer] Other 07-17-2023 10:15-0500 Body weight 84.01 kg Cecilio Ball Other [employer] Other 07-17-2023 10:15-0500 Diastolic blood pressure 78 mm[Hg] Cecilio Ball Other [employer] Other 07-17-2023 10:15-0500 Respiratory rate 20 /min Cecilio Ball Other [employer] Other 07-17-2023 10:15-0500 Systolic blood pressure 172 mm[Hg] Cecilio Ball Other [employer] Other 07-10-2023 14:45-0500 Body height 167.64 cm Cecilio Ball Other [employer] Other 07-10-2023 14:45-0500 Body mass index (BMI) [Ratio] 29.47 kg/m2 Cecilio Ball Other [employer] Other 07-10-2023 14:45-0500 Body weight 82.83 kg Cecilio Ball Other [employer] Other 07-10-2023 14:45-0500 Diastolic blood pressure 80 mm[Hg] Cecilio Ball Other [employer] Other 07-10-2023 14:45-0500 Respiratory rate 20 /min Cecilio Ball Other [employer] Other 07-10-2023 14:45-0500 Systolic blood pressure 150 mm[Hg] Cecilio Ball Other [employer] Other 06-20-2023 08:30-0400 Body height 167.64 cm Cecilio Ball Other [employer] Other 06-20-2023 08:30-0400 Body mass index (BMI) [Ratio] 29.6 kg/m2 Cecilio Ball Other [employer] Other 06-20-2023 08:30-0400 Body weight 83.19 kg Cecilio Ball Other [employer] Other 06-20-2023 08:30-0400 Diastolic blood pressure 76 mm[Hg] Cecilio Ball Other [employer] Other 06-20-2023 08:30-0400 Respiratory rate 20 /min Cecilio Ball Other [employer] Other 06-20-2023 08:30-0400 Systolic blood pressure 157 mm[Hg] Cecilio Ball Other [employer] Other 05-30-2023 13:45-0400 Body height 167.64 cm Cecilio Ball Other [employer] Other 05-30-2023 13:45-0400 Body mass index (BMI) [Ratio] 28.95 kg/m2 Cecilio Ball Other [employer] Other 05-30-2023 13:45-0400 Body weight 81.38 kg Cecilio Ball Other [employer] Other 05-30-2023 13:45-0400 Diastolic blood pressure 78 mm[Hg] Cecilio Ball Other [employer] Other 05-30-2023 13:45-0400 Respiratory rate 16 /min Cecilio Ball Other [employer] Other 05-30-2023 13:45-0400 Systolic blood pressure 158 mm[Hg] Cecilio Ball Other [employer] Other 02-14-2023 08:30-0400 Body height 167.64 cm Cecilio Ball Other [employer] Other 02-14-2023 08:30-0400 Body mass index (BMI) [Ratio] 28.57 kg/m2 Cecilio Ball Other [employer] Other 02-14-2023 08:30-0400 Body weight 80.29 kg Cecilio Ball Other [employer] Other 02-14-2023 08:30-0400 Diastolic blood pressure 80 mm[Hg] Cecilio Ball Other [employer] Other 02-14-2023 08:30-0400 Respiratory rate 16 /min Cecilio Ball Other [employer] Other 02-14-2023 08:30-0400 Systolic blood pressure 135 mm[Hg] Cecilio Ball Other [employer] Other 02-01-2023 08:15-0400 Body height 167.64 cm Jose Enrique Leblanc II Other [employer] Other 02-01-2023 08:15-0400 Body mass index (BMI) [Ratio] 27.44 kg/m2 Jose Enrique Door II Other [employer] Other 02-01-2023 08:15-0400 Body weight 77.11 kg Jose Enrique Benji II Other [employer] Other 12-11-2022 10:30-0400 Body height 167.64 cm Cecilio Ball Other [employer] Other 12-11-2022 10:30-0400 Body mass index (BMI) [Ratio] 28.66 kg/m2 Cecilio Ball Other [employer] Other 12-11-2022 10:30-0400 Body weight 80.56 kg Cecilio Ball Other [employer] Other 12-11-2022 10:30-0400 Diastolic blood pressure 76 mm[Hg] Cecilio Ball Other [employer] Other 12-11-2022 10:30-0400 Respiratory rate 12 /min Cecilio Ball Other [employer] Other 12-11-2022 10:30-0400 Systolic blood pressure 151 mm[Hg] Cecilio Ball Other [employer] Other 11-09-2022 16:00-0400 Body mass index (BMI) [Ratio] 29.21 kg/m2 Jose Enrique Benji II Other [employer] Other 11-09-2022 16:00-0400 Body weight 82.1 kg Jose Enrique Door II Other [employer] Other 11-09-2022 10:30-0400 Body height 167.64 cm Cecilio Ball Other [employer] Other 11-09-2022 10:30-0400 Body mass index (BMI) [Ratio] 29.23 kg/m2 Cecilio Ball Other [employer] Other 11-09-2022 10:30-0400 Body weight 82.15 kg Cecilio Ball Other [employer] Other 11-09-2022 10:30-0400 Diastolic blood pressure 79 mm[Hg] Cecilio Ball Other [employer] Other 11-09-2022 10:30-0400 Respiratory rate 20 /min Cecilio Ball Other [employer] Other 11-09-2022 10:30-0400 Systolic blood pressure 152 mm[Hg] Cecilio Ball Other [employer] Other 10-12-2022 10:00-0500 Body height 167.64 cm Cecilio Ball Other [employer] Other 10-12-2022 10:00-0500 Body mass index (BMI) [Ratio] 29.24 kg/m2 Cecilio Ball Other [employer] Other 10-12-2022 10:00-0500 Body weight 82.19 kg Cecilio Ball Other [employer] Other 10-12-2022 10:00-0500 Diastolic blood pressure 70 mm[Hg] Cecilio Ball Other [employer] Other 10-12-2022 10:00-0500 Respiratory rate 12 /min Cecilio Ball Other [employer] Other 10-12-2022 10:00-0500 Systolic blood pressure 102 mm[Hg] Cecilio Ball Other [employer] Other Encounters Encounter Date Encounter Type Care Provider Facility Start: 02-11-2024 End: 02-11-2024 ambulatory Maddie Villalobos MD Facility: [facility] Start: 01-28-2024 End: 01-28-2024 ambulatory Maddie Villalobos MD Facility:[facility] Start: 01-22-2024 End: 01-22-2024 ambulatory [facility] Work Phone: Start: 01-22-2024 End: 01-22-2024 Patient encounter procedure [facility] Work Phone: Start: 10-30-2023 Non-patient / Non-visit [facility] [employer] [facility] [employer] Work Phone: Start: 09-28-2023 End: 09-28-2023 ambulatory Cecilio Benjamin Other [employer] Other Start: 09-28-2023 Office outpatient vi sit 15 minutes Cecilio Ball [facility] Start: 09-28-2023 Telephone encounter Cecilio Benjamin [facility] Start: 09-21-2023 End: 09-21-2023 ambulatory Cecilio Benjamin Other [employer] Other Start: 09-21-2023 Telephone encounter Cecilio Benjamin [facility] Start: 09-11-2023 End: 09-11-2023 ambulatory Cecilio Sourav Other [employer] Other Start: 09-11-2023 Office outpatient vi sit 15 minutes Cecilio Ball [facility] Start: 09-11-2023 Telephone encounter Cecilio Benjamin [facility] Start: 09-03-2023 End: 09-03-2023 ambulatory Cecilio Sourav Other [employer] Other Start: 09-03-2023 Telephone encounter Cecilio Benjamin [facility] Start: 08-03-2023 End: 08-03-2023 ambulatory Cecilio Ball Other [employer] Other Start: 08-03-2023 Telephone encounter Cecilio Benjamin [facility] Start: 08-01-2023 End: 08-01-2023 ambulatory Cecilio Ball Other [employer] Other Start: 08-01-2023 Office outpatient vi sit 15 minutes Cecilio Ball [facility] Start: 07-17-2023 End: 07-17-2023 ambulatory Cecilio Ball Other [employer] Other Start: 07-17-2023 Office outpatient vi sit 15 minutes Cecilio Ball [facility] Start: 07-10-2023 End: 07-10-2023 ambulatory Cecilio Ball Other [employer] Other Start: 07-10-2023 Office outpatient vi sit 15 minutes Cecilio Ball [facility] Start: 06-20-2023 End: 06-20-2023 ambulatory Cecilio Ball Other [employer] Other Start: 06-20-2023 Office outpatient vi sit 25 minutes Cecilio Ball [facility] Start: 06-15-2023 End: 06-15-2023 ambulatory Cecilio Ball Other [employer] Other Start: 06-15-2023 Telephone encounter Cecilio Benjamin [facility] Start: 05-30-2023 End: 05-30-2023 ambulatory Cecilio Ball Other [employer] Other Start: 05-30-2023 Office outpatient vi sit 15 minutes Cecilio Ball [facility] Start: 03-20-2023 Telephone encounter David Jaeger DO Work Phone: [facility] Comment on above: Follow Up Phone Call Start: 03-15-2023 End: 03-15-2023 ambulatory DAVID JAEGER Facility:[facility] Start: 02-27-2023 Orders Only David Marcos DO Work Phone: Procedures Comment on above: Pseudoclaudication s yndrome (Primary Dx); Lumbar radiculopathy Start: 02-26-2023 Telephone encounter David Jaeger DO Work Phone: [facility] Comment on above: Procedure Start: 02-19-2023 Telephone encounter David Sis Faheem DO Work Phone: [facility] Comment on above: Appointment Start: 02-14-2023 End: 02-14-2023 ambulatory Cecilio Benjamin Other [employer] Other Start: 02-14-2023 Patient encounter procedure Cecilio Benjamin [facility] Start: 02-13-2023 End: 02-13-2023 ambulatory Cecilio Benjamin Other [employer] Other Start: 02-13-2023 Telephone encounter Cecilio DENISE [facility] Start: 02-08-2023 End: 02-08-2023 ambulatory Cecilio Benjamin Other [employer] Other Start: 02-08-2023 Telephone encounter Cecilio Sourav DENISE [facility] Start: 02-01-2023 End: 02-01-2023 ambulatory Jose Enrique Leblanc II Other [employer] Other Start: 02-01-2023 Office outpatient vi sit 25 minutes Jose Enrique Leblanc II [facility] Start: 12-11-2022 End: 12-11-2022 ambulatory Cecilio Benjamin Other [employer] Other Start: 12-11-2022 Office outpatient vi sit 15 minutes Cecilio Benjamin [facility] Start: 11-09-2022 End: 11-09-2022 ambulatory Jose Enrique Leblanc II Facility:[facility] Start: 11-09-2022 End: 11-09-2022 Patient encounter procedure MD Jose Enrique Leblanc II Work Phone: [facility] Start: 11-09-2022 End: 11-09-2022 ambulatory MD Jose Enrique Leblanc II Work Phone: [facility] Work Phone: Start: 11-09-2022 Office outpatient ne w 45 minutes Jose Enrique Leblanc II [facility] Start: 11-09-2022 Office outpatient vi sit 15 minutes Cecilio Benjamin [facility] Start: 11-05-2022 End: 11-05-[address] CECILIO BENJAMIN Facility:[facility] Start: 10-12-2022 End: 10-12-2022 ambulatory Cecilio Benjamin Other [employer] Other Start: 10-12-2022 Office outpatient vi sit 25 minutes Cecilio Benjamin [facility] Start: 09-27-2022 End: 09-27-2022 ambulatory Cecilio Benjamin Other [employer] Other Start: 09-27-2022 Telephone encounter Cecilio Benjamin [facility] Start: 09-26-2022 End: 09-27-[address] CECILIO BENJAMIN Facility:[facility] Start: 08-25-2022 End: 08-25-2022 ambulatory Cecilio Benjamin Other [employer] Other Start: 08-25-2022 Telephone encounter Cecilio Benjamin [facility] Start: 08-10-2022 End: 08-10-[address] CECILIO BENJAMIN Facility:[facility] Start: 02-09-2022 End: 02-10-[address] CECILIO BENJAMIN Facility:[facility] Start: 12-06-2021 End: 12-07-[address] CECILIO BENJAMIN Facility:[facility] Start: 01-22-2018 End: 04-20-2018 Patient encounter [id number] AUGUSTINE BENJAMIN Facility:[facility] Procedures Date Procedure Procedure Detail Performing Clinician Start: 11-09-2022 Pelvis X-ray MD Jose Enrique Leblanc II Work Phone: Start: 11-09-2022 Radiologic examinati on of knee MD Jose Enrique Leblanc II Work Phone: Plan of Treatment Date Care Activity Detail Author Start: 01-22-2024 Patient referral [facility] Work Phone: Start: 04-20-2023 Influenza vaccination [facility]FLUENZA (#1) [facility] Start: 10-01-2022 COVID-19 VACCINE (5 - Moderna series) COVID-19 VACCINE (5 - Moderna series) [facility] Start: 08-20-2022 ADVANCE DIRECTIVE DISCUSSION ADVANCE DIRECTIVE DISCUSSION [facility] Start: 08-20-2022 DEPRESSION ASSESSMENT DEPRESSION ASS ESSMENT [facility] Start: 09-19-2021 COVID-19 VACCINE (4 - Booster for Moderna series) COVID-19 VACCINE (4 - Booster for Moderna series) [facility] Start: 09-19-2021 COVID-19 VACCINE (4 - Moderna series) COVID-19 VACCINE (4 - Moderna series) [facility] Start: 01-02-2021 DIABETES SCREEN DIABETES SCREEN [facility] Start: 1991 SHINGRIX VACCINE (1 of 2) SHINGRIX VACCINE (1 of 2) [facility] Start: 1960 Urine microalbumin profile DTAP,TDAP,TD (1 - Tdap) [facility] Start: 1959 SPIROMETRY SPIROMETRY [facility] Start: 1947 PNEUMOCOCCAL: 65+ (1 - PCV) PNEUMOCOCCAL: 65+ (1 - PCV) [facility] Comprehensive metabo lic 2000 panel - Serum or Plasma [facility] Patient referral [facility] Work Phone: SPINE INTERVENTION PROCEDURE SPINE INTERVENTION PROCEDURE Procedures Routine Spinal stenosis, lumbar region with neurogenic claudication Lumbar radiculopathy, chronic Ordered: 02/19/2023 [facility] Work Phone: Comment on above: Ordered: 02/19/2023 [facility] Immunizations Immunization Date Immunization Notes Care Provider Coleman [email or web address] 05-30-2023 COVID-19 Vaccine Moderna - Documentation Purposes Only Cecilio Benjamin Other [facility] 05-30-2023 influenza virus vaccine, unspecified formulation [facility] 10-11-2023 influenza, high dose seasonal, preservative-free Cecilio Benjamin Other [employer] Other 06-13-2022 influenza virus vaccine, split virus (incl. purified surface antigen) Cecilio Benjamin Other [employer] Other 06-13-2022 influenza virus vaccine, unspecified formulation [facility] 06-13-2022 influenza, high dose seasonal, preservative-free Jose Enrique Benji II Other [facility] [employer] Other 05-31-2022 COVID-19 Pfizer (bivalent) Jose Enrique Door II Other [facility] 05-31-2022 COVID-19 Pfizer (Pediatric) Cecilio Benjamin Other [facility] 07-25-2021 COVID-19 Vaccine Moderna - Documentation Purposes Only Jose Enrique Door II Other [facility] 05-03-2021 zoster vaccine recombinant Jose Enrique Door II Other [facility] 05-03-2021 zoster vaccine, live Benjami n Ball Other [facility] 01-28-2021 zoster vaccine recombinant Jose Enrique Benji II Other [facility] 01-28-2021 zoster vaccine, live Benjami n Ball Other [facility] 10-25-2020 COVID-19 Vaccine Moderna - Documentation Purposes Only Jose Enrique Door II Other [facility] 09-27-2020 COVID-19 Vaccine Moderna - Documentation Purposes Only Jose Enrique Benji II Other [facility] 05-24-2020 influenza virus vaccine, split virus (incl. purified surface antigen) Cecilio Benjamin Other [facility] [employer] Other 05-24-2020 influenza virus vaccine, unspecified formulation [facility] 01-03-2019 diphtheria, tetanus toxoids and acellular pertussis vaccine, unspecified formulation Cecilio Benjamin Other [facility] 12-25-2018 pneumococcal polysaccharide vaccine, 23 valent Jose Enrique Benji II Other [facility] 04-30-2018 influenza virus vaccine, split virus (incl. purified surface antigen) Cecilio Benjamin Other [facility] [employer] Other 04-30-2018 influenza virus vaccine, unspecified formulation [facility] 04-09-2017 influenza virus vaccine, split virus (incl. purified surface antigen) Cecilio Benjamin Other [facility] [employer] Other 04-09-2017 influenza virus vaccine, unspecified formulation [facility] 05-31-2016 zoster vaccine, live Jose Enrique Benji II Other [facility] 05-13-2016 influenza virus vaccine, split virus (incl. purified surface antigen) Cecilio Benjamin Other [facility] [employer] Other 05-13-2016 influenza virus vaccine, unspecified formulation [facility] 05-09-2015 influenza virus vaccine, split virus (incl. purified surface antigen) Cecilio Benjamin Other [facility] [employer] Other 05-09-2015 influenza virus vaccine, unspecified formulation [facility] 03-06-2015 pneumococcal conjuga te vaccine, 13 valent Jose Enrique Door II Other [facility] 05-07-2014 tetanus and diphther ia toxoids, adsorbed, preservative free, for adult use (5 Lf of tetanus toxoid and 2 Lf of diphtheria toxoid) Cecilio Benjamin Other [facility] 04-23-2013 tetanus and diphther ia toxoids, adsorbed, preservative free, for adult use (5 Lf of tetanus toxoid and 2 Lf of diphtheria toxoid) Cecilio Benjamin Other [facility] 08-21-2012 pneumococcal polysaccharide vaccine, 23 valent Cecilio Ball Other [facility] 12-12-2011 zoster vaccine, live Jose Enrique Leblanc II Other [facility] Payers Date Payer Category Payer Self-pay 2022 Unknown [id number] 2018 Medicare [id number] 2006 Medicare [id number] 2006 Unknown [id number] 1959 Medicare [id number] 2.1 [id number] 1959 Unknown [id number] 2.16. [id number] 1941 Unknown [id number] 2.16.84 [id number] 1941 Unknown [id number] 2.16.84 [id number] 1941 Unknown [id number] 2.16.84 [id number] 1941 Unknown [id number] 2.16.84 [id number] 1941 Unknown [id number] 2.16.84 [id number] 1941 Unknown [id number] 2.16. [id number] 1941 Unknown [id number] 2.16. [id number] Unknown [id number] 2.16.8 [id number] Social History Date Type Detail Facility Start: 05-09-2021 End: 03-15-2023 [facility] Start: 1940 Sex Assigned At Male F [facility] Start: 06-13-2017 End: 01-22-2024 Tobacco smoking status NHIS Never smoked tobacco [facility] Start: 06-13-2017 Tobacco use and exposure Smokeless tobacco non-user [facility] Start: 05-09-2021 Alcohol intake Current drinke r of alcohol (finding) [facility] Start: 12-11-2017 Alcohol Comment Katie[employer] in coffee C [facility] Start: 1940 Sex Assigned At Not on file C [facility] Start: 05-09-2021 End: 03-15-2023 History of Social function [facility] Adult Depression Screening Assessment 1 [facility] Medical Equipment Procedure Code Equipment Code Equipment Origin al Text Equipment Identifier Dates [place] Sw[employer]ock Tenodesis 8mm Biocomposite 19.5mm Suture [place] Eyelet - [id number] Start: 06-29-2017 Sleeve V40 +0mm Offset [place] Taper Titanium Adapter Hip - [id number] Start: 01-01-2018 Screw [employer] Secur-Fit Torx 6.5mm Titanium 20mm Bone Sterile Acetabular - [id number] Start: 01-01-2018 Clinical Notes 08-25-2022 to 01-22-2024 Note Date & Type Note Facility 01-22-2024 Evaluation note Diagnosis Onset Date Chronic bronchitis, simple a cute Chronic kidney disease, stage 3a acute Elevated cholesterol acute Generalized anxiety disorder acute Hypertension acute Lumbar spondylolysis acute Obstructive sleep apnea acut e Medicare annual wellness visit, subsequent noneactive [facility] Work Phone: [phone]) 898-460802-09-2024 Evaluation note* Encounter Date Diagnosis Assessment Notes [...] and clinically improving, no further treatment necessary [employer] Other 02-02-2024 Evaluation note* Encounter Date Diagnosis Assessment Notes Treatment Notes Treatment Clinical Notes Sep, Carotid bruit, unspecified laterality (ICD-10 - R09.89) [employer] Other 01-23-2024 Evaluation note* Encounter Date Diagnosis [...] tid Initiate Prednisone _update office on Sunday [employer] Other 01-15-2024 Evaluation note* Encounter Date Diagnosis Assessment Notes Treatment Notes Treatment Clinical Notes Aug, JONATHAN (generalized anxiety disorder) (ICD-10 - F41.1) [employer] Other 12-13-2023 Evaluation note* Encounter Date Diagnosis [...] best 2/3 readings w/ goal < 135/85 [employer] Other 11-28-2023 Evaluation note* Encounter Date Diagnosis [...] daily for blisters and ulcerations. Moisturizers daily [employer] Other 11-21-2023 Evaluation note* Encounter Date Diagnosis [...] Call if develop increased pain or erythema [employer] Other 11-01-2023 Evaluation note* Encounter Date Diagnosis [...] use, the patient reduces the risk for IL, CVA, HTN, cardiac dysrhythmias and sudden cardiac [...] very active. No change in medical treatment [employer] Other 10-27-2023 Evaluation note* Encounter Date Diagnosis Assessment Notes Treatment Notes Treatment Clinical Notes May, JONATHAN (generalized anxiety disorder) (ICD-10 - F41.1) [employer] Other 10-11-2023 Evaluation note* Encounter Date Diagnosis [...] They may safely use Tylenol as needed. [employer] Other 08-01-2023 Miscellaneous Notes* Telephone Encounter - Neida Porter MA - 03/20/2023 12:26 PM EDT DATE OF SERVICE: 03/15/2023 PATIENT'S PHONE NUMBERS: [phone] (home) OR @[email or web address]@ PROVIDER: Dr. Jaeger PROCEDURE: Elective Pain Management Procedure Left message on machine Asked pt to call back and speak with the specialty triage nurse with update. Please obtain percentage better and the duration of improvement. Please inquire if there were any problems afterwards. Neida Brink documented [facility]City [facility]23 Miscellaneous Notes* Telephone Encounter - Linda Knox LPN - 02/26/2023 4:42 PM EDT Spoke to patient in reguards to pre procedure instructions. Pt must have a test car driver. Pt advised to arrive 30 min [...] take. Advised on location of ASC-2nd floor [facility] Pt will receive a follow up call several days after by a endless steamer tender. If you experience any increase in weakness, difficulty walking or significant increase in pain thatlast more than 4 hours, please proceed to the Emergency Room and tell them you had a spine procedure done recently. Additionally, call us and notify us of these symptoms. Please call [phone] if you have any questions. Pt verbalized understanding. documented in this encounterCity Hospital07-03-2023 Miscellaneous Notes* Telephone Encounter - Linda Knox LPN - 02/19/2023 11:57 AM EDT Order approved [facility]. Daughter given scheduling number [phone] Pt must have a test car driver. Pt advised to arrive 30 min prior to the time given by the prosthodontist/educator. Pt advised will also receive a call the day before from the surgery center to confirm date/time. Pt can eat and drink as normal. and Pt can take medications as normal. No alcohol 24 hours prior. Pt is on ASA.- 81 mg okay to take. and must Advised on location of ASC-2nd floor [facility] Pt will receive a follow up call several days after by a endless steamer tender. If you experience any increase in weakness, difficulty walking or significant increase in pain thatlast more than 4 hours, please proceed to the Emergency Room and tell them you had a spine procedure done recently. Additionally, call us and notify us of these symptoms. Please call [phone] if you have any questions. Pt verbalized [...] procedure - daughter states she left a somewhere last week but never heard back Please call Celi as patient cannot hear well [phone] Patient has been identified by name and birthdate. Duration of symptoms: N/A Person calling: daughter: Celi Rhodes patient at: N/A [phone] (home) [phone] (cell) Was an appointment scheduled: No Closing statement: Results or non-symptom based questions: Thank you for calling [facility], your call will be returned within the next business day. Camilla Jarrell Pss documented in this encounterCity Hospital06-28-2023 Evaluation note* Encounter Date Diagnosis Assessment [...] use, the patient reduces the risk for IL, CVA, HTN, cardiac dysrhythmias and sudden cardiac [...] (ICD-10 - F41.1) Healthy diet, keep active [employer] Other 06-22-2023 Evaluation note* Encounter Date Diagnosis Assessment Notes Treatment Notes Treatment Clinical Notes Jan, Elevated cholesterol (ICD-10 - E78.00) Jan, Stage 3a chronic kidney disease (ICD-10 - N18.31) Jan, Primary hypertension (ICD-10 - I10) Jan, Screening PSA (prostate specific antigen) (ICD-10 - Z12.5) Jan, High risk medication use (ICD-10 - Z79.899) [employer] Other 06-15-2023 Evaluation note* Encounter Date Diagnosis [...] this time 6. Follow up as needed [employer] Other 04-24-2023 Evaluation note* Encounter Date Diagnosis [...] use of statin, experiencing ADR and stopped [employer] Other 03-23-2023 Evaluation note* Encounter Date Diagnosis [...] - M17.12) Quad exercises, ice/heat and Tylenol [employer] Other 03-23-2023 Evaluation note* Encounter Date Diagnosis [...] injection well. 6. Follow up as needed [employer] Other 02-23-2023 Evaluation note* Encounter Date Diagnosis [...] use, the patient reduces the risk for IL, CVA, HTN, cardiac dysrhythmias and sudden cardiac [...] tract symptoms (ICD-10 - N40.1) Symptoms tolerable [employer] Other 02-08-2023 Evaluation note* Encounter Date Diagnosis Assessment Notes Treatment Notes Treatment Clinical Notes Sep, Elevated cholesterol (ICD-10 - E78.00) Sep, Stenosis of right carotid artery (ICD-10 - I65.21) Sep, Retinal hemorrhage of right eye (ICD-10 - H35.61) [employer] Other 01-06-2023 Evaluation note* Encounter Date Diagnosis Assessment Notes Treatment Notes Treatment Clinical Notes Aug, Carotid bruit, unspecified laterality (ICD-10 - R09.89) [employer] Other Evaluation noteNo assessment information available [facility] Work Phone: Evaluation noteNo [employer] Other Evaluation note* Diagnosis Spinal stenosis, lumbar region with neurogenic claudication- Primary Lumbar radiculopathy, chronic Thoracic or lumbosacral neuritis or radiculitis, unspecified [facility] Diagnosis Pseudoclaudication syndrome- Primary Spinal stenosis, lumbar region, with neurogenic claudication Lumbar radiculopathy Thoracic or lumbosacral neuritis or radiculitis, unspecified Pseudoclaudication syndrome Spinal stenosis, lumbar region, with neurogenic claudication Lumbar radiculopathy Thoracic or lumbosacral neuritis or radiculitis, unspecified documented in this encounter [facility] general Narrative - Reported* Type Description [...] JANELLE 06/2017 Hospitalization History see surgical history [employer] Other Hospital Discharge instructionsAmbulatory Orders* Referral to Pain Management Location: None [facility] Work Phone: Summary Purpose Family History No [...] section and content) DATE CREATED AUTHOR 02/06/2018 [facility] DATE CREATED AUTHOR AUTHOR'S ORGANIZ ATION 06/10/2018 [facility] DATE CREATED AUTHOR AUTHOR'S ORGANIZ ATION 11/06/2022 [facility] DATE CREATED AUTHOR AUTHOR'S ORGANIZ ATION 12/21/2022 [facility] DATE CREATED AUTHOR AUTHOR'S ORGANIZ ATION 03/15/2023 [facility] DATE CREATED AUTHOR AUTHOR'S ORGANIZ ATION 03/22/2023 [facility] DATE CREATED AUTHOR AUTHOR'S ORGANIZ ATION 02/14/2024 [facility] REASON FOR VISIT (unrecogniz ed section and content) Reason Comments Appointment Reason Comments Procedure Reason Comments Follow Up Phone Call Care Teams (unrecognized sec tion and content) Team Status: Inactive Member Role Status Dates Jose Enrique Leblanc II, MD Attending Provider Active Manager Retail Sales Relationship Specialty Start Date End Date Cecilio Benjamin DO PCP - General Internal Medicine 09/04/13 Manager Retail Sales Relationship Specialty Start Date End Date Cecilio Benjamin DO PCP - General Internal Medicine 09/04/13 Manager Retail Sales Relationship Specialty Start Date End Date Cecilio Benjamin DO PCP - General Internal Medicine 09/04/13 Manager Retail Sales Relationship Specialty Start Date End Date Cecilio [...] or prosecute any alcohol or drug abuse patient.[facility] HospitalIn the event this information is protected by the Federal Confidentiality of Alcohol and Drug Abuse Patient Records regulations: The Federal rules restrict any use of the information to criminally investigate or prosecute any alcohol or drug abuse patient.[facility] HospitalIn the event this information is protected by the Federal Confidentiality of Alcohol and Drug Abuse Patient Records regulations: The Federal rules restrict any use of the information to criminally investigate or prosecute any alcohol or drug abuse patient.[facility] HospitalIn the event this information is protected by the Federal Confidentiality of Alcohol and Drug Abuse Patient Records regulations: The Federal rules restrict any use of the information to criminally investigate or prosecute any alcohol or drug abuse patient.[facility] FOR RECORDS PERTAINING TO PATIENTS WHO [...] BE BASED ON THE PRIMARY CLINICAL RECORDS. [employer] provides no warranty or guarantee of the accuracy or completeness of information in this document.
[2024-02-25] MEDS: 0.9 % SODIUM CHLORIDE 10 ML SYRINGE - SALINE FLUSH INJ (11:12)
[2024-02-25] MEDS: BUPIVACAINE HCL 0.25% PF 25 MG/10 ML VIAL INJ (11:12)
[2024-02-25] MEDS: LIDOCAINE HCL 2% 400 MG/20 ML MDV 5 ML INJ (11:13)
[2024-02-25] MEDS: TRIAMCINOLONE ACETONIDE 40 MG/ML VIAL 80 MG INJ (11:13)
[2024-02-25] MEDS: IOHEXOL 240 MG/ML - 10 ML VIAL INJ (11:13)
--- NOTE | 2024-02-25 11:15 | W.PM.PROCNOT ---
Date of procedure: 02/25/24 Pre-op diagnosis: Pain due to lumbar stenosis with neurogenic claudication Post-op diagnosis: same as pre-op Procedure: Procedure: Bilateral L4-5 transforaminal epidural steroid injection Medications: Bupivacaine 0.25% 2cc, lidocaine 2% 1cc, kenalog 80mg The patient was seen and examined in the preoperative holding area.? Informed consent was obtained and placed on the chart.? Patient was brought to the medical procedure unit and placed in the prone position where a timeout was completed verifying the correct patient, procedure site, position, and planned special equipment using sterile aseptic technique.? Under direct fluoroscopic visualization a 25-gauge Quincke tipped spinal needle was advanced at level left L4-5 to the designated neural foramen where contrast dye was injected to show adequate spread.? There was no evidence of vascular or adverse uptake.? Epidural spread was appreciated.? The above-mentioned injectate was then placed in a 1.5 mL aliquot preceded by negative aspiration.? The needle was removed. The same procedure, at the same level, was completed on the opposite side. ? Patient was taken to the postprocedural recovery area and monitored for an appropriate length of time before found suitable for discharge in the accompaniment of a responsible adult. Anesthesia: Local Surgeon: Maddie Villalobos Pathology: none sent Condition: stable Disposition: no change
[2024-02-25 11:16] VITALS: BP 169/77; BP 175/87; PULSE 66; PULSE 67; O2SAT 100; O2SAT 99
== END 2024-02-25 11:21 | disposition home or self-care (01) ==
PROVIDERS: PCP Internal Medicine; Visit Provider Anesthesiology
DX: M48.062 Spinal stenosis, lumbar region with neurogenic claudication (principal)
CPT/HCPCS: 64483; J0665; J3301; Q9966

== ENCOUNTER 2024-03-05 08:31 | Outpatient (OUT) | payer MEDICARE, OTHER, SELFPAY ==
--- OUTSIDE RECORDS SUMMARY | 2024-03-05 08:44 | XMS_ITS | CCD ---
Author Organization [facility] Care Team Providers Care Debone Supervisor Name Role Phone CECILIO [phone] UNKNOWN Unavailable Unavailable BETH GOODEN Unavailable Unavailable [...] MD Jose Enrique Leblanc II Attending Provider [phone] Jose Enrique Leblanc II Unavailable Jose Enrique [...] bacitracin; Translations: [bacitracin] Drug Allergy 09-11-2013 Unknown [facility] Repository (19 sources) Albuterol Drug Allergy Unknown [employer] Other (20 sources) HMG-CoA reductase inhibitor Drug allergy Unknown [employer] Other Medications Current Medications Medication Drug Class(es) [...] uth every 8 hours. (Mild pain reliever) [id number] 200 actuat albuterol 0.09 mg/actuat metered dose [...] on above: Take 4 tablets by mo [facility] 1 hour prior to procedure and [...] on above: Take 1 capsule by mo [facility] twice daily. (Stool softener) doxycycline hyclate 100 mg oral capsule (15 sources) Tetracycline-class Drug Start: 10-17-2023 End: 10-19-2023 take 100 mg by mouth twice daily Doxycycline Hyclate Discontinued 100 MG PO Twice daily October 17, 2023 1:00am October 19, 2023 11:06am Start: 07-10-2023 take 1 capsule by [facility] every twelve hours Doxycycline Hyclate 100 MG [...] mo ut. Take 2 tablets by mo [facility] daily at bedtime. methylPREDNISolone (1 source) Corticosteroid [...] 01-22-2024 Episodic Other aftercare (2 sources) Other senior living (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 therapy; Translations: [OTH GROUP HOME CURRENT DRUG THERAPY] Onset: 11-06-2022 Episodic Other [...] Test Name Value Interpretation Reference Range Facility [facility] 03-20-2023 [facility] Telephone (SPNMAV) STEPHENRUPERTO ([id number]) 1940 [employer] Date Time Provider Department 03/20/23 DAVID JAEGER SPJEREMYAV During your visit today, we recorded the following information about you: Neida Porter MA 03/20/2023 12:30 PM Signed DATE OF SERVICE: 03/15/2023 PATIENT'S PHONE NUMBERS: [phone] (home) OR @[facility]@ PROVIDER: Dr. Jaeger PROCEDURE: Elective Pain Management [...] work Requesting to call his CELL ONLY [phone] what to do next Leave Detailed messages [...] of spine injection schedulers to call at [phone]. Patient will call if he wants to schedule another injection. 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 Author [...] a procedure / surgery at a [facility] facility. Patient and I have discussed in [...] surgery/procedure as indicated on the consent form. [facility] approved time out was performed identifying the site, side and level of procedure prior to start of procedure. [facility] - ELECTIVE PROCEDURE Lumbar Transforaminal [...] the entire procedure. David Jaeger DO, MBA [facility] 02-26-2023 CHELLE Telephone (SPNMAV) RUPERTO THORPE ([id number]) 1940 [employer] Date Time Provider Department 02/26/23 DAVID JAEGER During your visit today, we recorded the following information about you: Linda Knox LPN 02/26/2023 4:49 PM Signed Spoke to patient in [facility] to pre procedure instructions. Pt must have a wood pile driver operator. Pt advised to arrive 30 min prior. [...] take. Advised on location of ASC-2nd floor [facility] Pt will receive a follow up call several days after by a steam hammer operator. If you experience any increase in weakness, difficulty walking or significant increase in pain that last more than 4 hours, please proceed to the Emergency Room and tell them you had a spine procedure done recently. Additionally, call us and notify us of these symptoms. Please call [phone] if you have any questions. Pt verbalized [...] Status:Closed by LINDA KNOX LPN on 02/26/23 [facility]2023 [facility] Telephone (SPNMAV) RUPERTO THORPE ([id number]) 1940 [employer] Date Time Provider Department 02/19/23 DAVID JAEGER SPAZAV During your visit today, we recorded the following information about you: Camilla Jarrell [facility] 02/19/2023 9:27 AM Signed Ruperto Thorpe daughter [...] call Celi as patient cannot hear well [phone] Patient has been identified by name and birthdate. Duration of symptoms: N/A Person calling: daughter: Celi Call patient at: N/A [phone] (home) [phone] (cell) Was an appointment scheduled: No Closing statement: Results or non-symptom based questions: Thank you for calling [facility], your call will be returned within the next business day. Camilla Jarrell [facility] Linda Knox LPN 02/19/2023 9:45 AM Signed Spine Intervention order formatted for review Linda Knox LPN 02/19/2023 11:59 AM Signed Order approved Spoke to daughter in [facility] to pre procedure instructions. Daughter given scheduling number [phone] Pt must have a wood pile driver operator. Pt advised to arrive 30 min prior to the time given by the mill order scheduler. Pt advised will also receive a call the day before from the surgery center to confirm date/time. Pt can eat and drink as normal. and Pt can take medications as normal. No alcohol 24 hours prior. Pt is on ASA.- 81 mg okay to take. and must Advised on location of ASC-2nd floor [facility] Pt will receive a follow up call several days after by a steam hammer operator. If you experience any increase in weakness, difficulty walking or significant increase in pain that last more than 4 hours, please proceed to the Emergency Room and tell them you had a spine procedure done recently. Additionally, call us and notify us of these symptoms. Please call [phone] if you have any questions. Pt verbalized understanding. 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 Normal [facility] XR knee LT 4V*on 11-09-2022 XR knee LT 4V* [facility] [place] [address] [place] [address] XRay Report Signed Patient: Ruperto Thorpe MR#: [id number] 5 : 1940 Acct:[id number] Age/Sex: 82 / M ADM Date: 11/09/22 Loc: SOXD Room: Type: [facility] Attending Dr: Jose Enrique Leblanc II, [...] Darren Yuen M.D.11/09/2022 5:03 PM Dictation Location: [place] [address] Transcribed By: [facility] 11/09/22 170 Dictated By: Darren Yuen II, MD 11/09/221700 Signed By: 11/09/22 170 Normal [facility] XR knee LT 4V* [place] [employer] Other XR knee LT 4V* [facility] [employer] Other XR knee LT 4V* [address] [place] [address] [employer] Other XR knee LT 4V* [place] [address] No rt [employer] Other XR knee LT 4V* XRay Report [employer] Other XR knee LT 4V* Signed [employer] Other XR knee LT 4V* Patient: Ruperto Thorpe MR#: [id number] [employer] Other XR knee LT 4V* 5 [employer] Other XR knee LT 4V* : 1940 Acct:[id number] [employer] Other XR knee LT 4V* Age/Sex: 82 / M ADM Date: 11/09/22 [employer] Other XR knee LT 4V* Loc: SOXD Room: Type : [facility] [employer] Other XR knee LT 4V* Attending Dr: Jose Enrique Leblanc II, MD [employer] Other XR knee LT 4V* Copies to: Jose Enrique Leblanc MD [employer] Other XR knee LT 4V* Ordering Provider: Jose Enrique Leblanc MD [employer] Other XR knee LT 4V* Date of Service: 11/09/22 [employer] Other XR knee LT 4V* XR/XR knee LT 4V*: Acute pain of left knee [employer] Other XR knee LT 4V* XR knee LT 4V* 11/09/2022 3:15 PM [employer] Other XR knee LT 4V* SIGNS AND SYMPTOMS: Acute pain of left knee [employer] Other XR knee LT 4V* PROTOCOL: Frontal, lateral, oblique, and sunrise views of the left knee [employer] Other XR knee LT 4V* COMPARISON: 11/05/2022 [employer] Other XR knee LT 4V* FINDINGS: [employer] Other XR knee LT 4V* There is similar narrowing of the weightbearing joint spaces with chondrocalcinosis of the menisci [employer] Other XR knee LT 4V* suggesting underlyin g CPPD. There is narrowing of the patellofemoral joint space with spurring at [employer] Other XR knee LT 4V* the superior pole of patella. There is a small joint effusion. No soft tissue swelling. No acute [employer] Other XR knee LT 4V* displaced fracture. Vascular calcifications are present posteriorly. [employer] Other XR knee LT 4V* XR/XR knee LT 4V* [employer] Other XR knee LT 4V* IMPRESSION: [employer] Other XR knee LT 4V* Tricompartmental degenerative changes are noted in the left knee with a small joint effusion. [employer] Other XR knee LT 4V* There is chondrocalcinosis of the menisci suggesting underlying CPPD. [employer] Other XR knee LT 4V* Impression dictated by: Darren Yuen M.D.11/09/2022 5:03 PM [employer] Other XR knee LT 4V* Dictation Location: [place] [address] [employer] Other XR knee LT 4V* Transcribed By: PWS 11/09/22 [facility] [employer] Other XR knee LT 4V* Dictated By: Darren Yuen II, MD 11/09/22 [facility] [employer] Other XR knee LT 4V* Signed By: [employer] Other XR knee LT 4V* 11/09/22 [facility] [employer] Other XR pelvis 1-2Von 11-09-2022 XR pelvis 1-2V [facility] [place] [address] [place] [address] XRay Report Signed Patient: Ruperto Thorpe MR#: [id number] 5 : 1940 Acct:[id number] Age/Sex: 82 / M ADM Date: 11/09/22 Loc: [facility] Room: Type: [facility] Attending Dr: Jose Enrique Leblanc II, [...] Darren Yuen M.D.11/09/2022 5:01 PM Dictation Location: [place] [address] Transcribed By: [facility] 11/09/22 170 Dictated By: Darren Yuen II, MD 11/09/221699 Signed By: 11/09/22 170 [facility] XR pelvis 1-2V XR/XR pelvis 1-2V: Acute pain of left knee [employer] Other XR pelvis 1-2V XR pelvis 1-2V 11/09/2022 3:15 PM [employer] Other XR pelvis 1-2V SIGNS AND SYMPTOMS: Left knee pain [employer] Other XR pelvis 1-2V PROTOCOL: Frontal radiograph of the chest [employer] Other XR pelvis 1-2V COMPARISON: None [place] [employer] Other XR pelvis 1-2V There is mild narrowing of the left hip joint space with subcortical cystic change on both sides of [employer] Other XR pelvis 1-2V the joint along the acetabular there is chondrocalcinosis of the labrum overlying the superior [employer] Other XR pelvis 1-2V acetabular rim and superior lateral femoral head. The bony ring of the pelvis is intact. There is [employer] Other XR pelvis 1-2V total right hip arthroplasty. Degenerative changes are noted in the sacroiliac joints. No fracture [employer] Other XR pelvis 1-2V is [employer] Other XR pelvis 1-2V XR/XR pelvis 1-2V [employer] Other XR pelvis 1-2V Degenerative changes are noted in the left hip with findings suspicious for previous labral [employer] Other XR pelvis 1-2V pathology. [employer] Other XR pelvis 1-2V Postoperative change s are noted in the right hip with total right hip arthroplasty hardware. [employer] Other XR pelvis 1-2V Impression dictated by: Darren Yuen M.D.11/09/2022 5:01 PM [employer] Other XR pelvis 1-2V Transcribed By: COLIN 11/09/22 170 [employer] Other XR pelvis 1-2V Dictated By: Darren Yuen II, MD 11/09/22 1700 [employer] Other XR pelvis 1-2V 11/09/22 1701 [employer] Other XR KNEE LT 4V or >on [...] There is chondrocalcinosis. Soft tissues: Unremarkable. IMPRESSION: Jngv-yt-ssosqbhp osteoarthritis as described above. Chondrocalcinosis. No acute fracture or dislocation. Electronically authenticated by: CHUCK SANDRAJESSICA Date: 2022-11-05 11:19 Normal [facility] US CAROTID ART BILon 023 US [...] JONAS MCLEOD Date: 2022-09-26 10:58 Normal [facility] CBC AUTO DIFFon 08-10-2022 BASO # 0.0 103/ul Normal 0.0-0.1 [facility] Comment on above: Performed By: #### C BC #### [facility] [address] [place] [address] Dr. Alexis Brink Basophils/100 WBC (Bld) 0.7 % Normal 0.2-2.0 [facility] Comment on above: Performed By: #### C BC #### [facility] [address] [place] [address] Dr. Alexis Brink EO # 0.3 103/ul Normal 0.0-0.7 [facility] Comment on above: Performed By: #### C BC #### [facility] [address] [place] [address] [address] Alexis Brink Eosinophils/100 WBC (Bld) 6.1 % Normal 0.9-7.0 [facility] Comment on above: Performed By: #### C BC #### [facility] [address] [place] [address] [address] Alexis Brink Erythrocyte distribution width (RBC) [Ratio] 12.1 % Normal 11.0-15.0 [facility] Comment on above: Performed By: #### C BC #### [facility] [address] [place] [address] Dr. Alexis Brink Hematocrit (Bld) [Volume fraction] 44.2 % Normal 42.0-54.0 [facility] Comment on above: Performed By: #### C BC #### [facility] [address] [place] [address] Dr. Alexis Brink Hemoglobin (Bld) [Mass/Vol] 14.9 g/dL Normal 14.0-18.0 [facility] Comment on above: Performed By: #### C BC #### [facility] [address] [place] [address] Dr. Alexis Brink IG # 0.01 10e3/ul Normal 0.00-0.03 [facility] Comment on above: Performed By: #### C BC #### [facility] [address] [place] [address] Dr. Alexis Brink IG % 0.2 % Normal 0.0-0.5 [facility] Comment on above: Performed By: #### C BC #### [facility] [address] [place] [address] Dr. Alexis Brink LYMPH # 1.2 103/ul Normal 1.2-3.8 [facility] Comment on above: Performed By: #### C BC #### [facility] [address] [place] [address] Dr. Alexis Brink Lymphocytes/100 WBC (Bld) 21.3 % Normal 20.5-60.0 [facility] Comment on above: Performed By: #### C BC #### [facility] [address] [place] [address] Dr. Alexis Brink MANUAL DIFF REQ NO Normal The [facility] Comment on above: Performed By: #### C BC #### [facility] [address] [place] [address] Dr. Alexis Brink MCH (RBC) [Entitic mass] 30.7 pg Normal 25.9-34.0 [facility] Comment on above: Performed By: #### C BC #### [facility] [address] [place] [address] Dr. Alexis Brink MCHC (RBC) [Mass/Vol] 33.7 g/dL Normal 29.9-35.2 [facility] Comment on above: Performed By: #### C BC #### [facility] [address] [place] [address] Dr. Alexis Brink MCV (RBC) [Entitic vol] 91.1 fL Normal 80.0-94.0 [facility] Comment on above: Performed By: #### C BC #### [facility] [address] [place] [address] Dr. Alexis Brink MONO # 0.5 103/ul Normal 0.3-0.8 [facility] Comment on above: Performed By: #### C BC #### [facility] [address] [place] [address] Dr. Alexis Brink Monocytes/100 WBC (Bld) 8.5 % Normal 1.7-12.0 [facility] Comment on above: Performed By: #### C BC #### [facility] [address] [place] [address] Dr. Alexis Brink NEUT # 3.5 103/ul Normal 1.4-6.5 [facility] Comment on above: Performed By: #### C BC #### [facility] [address] [place] [address] Dr. Alexis Brink Neutrophils/100 WBC (Bld) 63.2 % Normal 43.0-75.0 [facility] Comment on above: Performed By: #### C BC #### [facility] [address] [place] [address] Dr. Alexis Brink Platelet mean volume (Bld) [Entitic vol] 10.0 fL Normal 9.5-13.5 [facility] Comment on above: Performed By: #### C BC #### [facility] [address] [place] [address] Dr. Alexis Brink PLT 120 103/ul Critically low 150-450 [facility] Comment on above: Performed By: #### C BC #### [facility] [address] [place], [place] [address] Dr. Alexis Brink RBC 4.85 106/ul Normal 4.70-6.10 [facility] Comment on above: Performed By: #### C BC #### [facility] [address] [place], [place] [address] Dr. Alexis Brink WBC 5.6 103/ul Normal 4.0-11.0 [facility] Comment on above: Performed By: #### C BC #### [facility] [address] [place], [place] [address] Dr. Alexis Brink Covid-19 PCR ([facility])on 07-21 SARS-CoV-2 (COVID-19) RNA RICKY+probe Ql (Unsp spec) Not detected Normal NOT DETECTED [facility] Comment on above: Result Comment: This test is not yet approved or cleared by the [place] FDA. When there are no FDA-approved or cleared tests available, and other criteria are met, FDA can make tests available under an emergency access mechanism called an Emergency Use Authorization (EUA). The EUA for this test is supported by the [place] of Health and Human Service's (HHS's) declaration [...] with SARS-CoV-2. Performed By: #### C VDTBH ####[facility] [address] [place], [place] [address]YoDr. Alexis Brink INFLUENZA A AND B AGon 08-10 INFLUANEGH SEE BELOW Normal [facility] Comment on above: Result Comment: Nega tive for Flu A protein angiten. Infection due to Flu A cannot be ruled out. Flu A angiten in the sample may be below the detection limit of the test. Performed By: #### I NFLUAB ####[facility] [address] [place] [address]Dr. Alexis Brink INFLUBNEGH SEE BELOW Normal [facility] Comment on above: Result Comment: Nega tive for Flu B protein antigen. Infection due to Flu B cannot be ruled out. Flu B antigen in the sample may be below the detection limit of the test. Performed By: #### I NFLUAB ####[facility] [address] [place] [address]Dr. Alexis Brink INFLUENZA A AG Negative Normal NEGATIVE SEE COMMENT [facility] Comment on above: Performed By: #### I NFLUAB ####[facility] [address] [place], [place] [address]Dr. Alexis Brink INFLUENZA B AG Negative Normal NEGATIVE SEE COMMENT [facility] Comment on above: Performed By: #### I NFLUAB ####[facility] [address] [place], [place] [address]DrLainye Brink INTERNAL CONTROLS Within Normal Limits Normal Wi thin Normal Limits [facility] Comment on above: Performed By: #### I NFLUAB ####[facility] [address] [place] [address]DrLainey Brink PROF CHEM 8 (BAS METB)on Anion gap [Moles/Vol] 11.4 mmol/L Normal [facility] Comment on above: Performed By: #### B NARA, HSTROPN #### [facility] [address] [place] [address] [address] Alexis Brink Calcium [Mass/Vol] 8.9 mg/dL Normal 8.5-10.1 [facility] Comment on above: Performed By: #### B NARA, HSTROPN #### [facility] [address] [place] [address] [address] Alexis Brink Chloride [Moles/Vol] 102 mmol/L Normal 98-107 [facility] Comment on above: Performed By: #### B NARA, HSTROPN #### [facility] [address] [place] [address] [address] Alexis Brink CO2 [Moles/Vol] 28.8 mmol/L Normal 21.0-32.0 [facility] Comment on above: Performed By: #### B MP, HSTROPN #### [facility] [address] [place] [address] [address] Alexis Brink Creatinine [Mass/Vol] 1.35 mg/dL Critically high 0.70-1.30 [facility] Comment on above: Performed By: #### B MP, HSTROPN #### [facility] [address] [place] [address] [address] Alexis Brink EGFR-AF SERBIAN >60 Normal >=60 [facility] Comment on above: Performed By: #### B MP, HSTROPN #### [facility] [address] [place] [address] Dr. Alexis Brink EGFR-NON AF SERBIAN 51 mL/min/1.73m2 Critically low >=60 [facility] Comment on above: Performed By: #### B MP, HSTROPN #### [facility] [address] [place] [address] Dr. Alexis Brink Glucose [Mass/Vol] 109 mg/dL Critically high 74-106 [facility] Comment on above: Performed By: #### B MP, HSTROPN #### [facility] [address] [place] [address] [address] Alexis Brink Potassium [Moles/Vol] 4.2 mmol/L Normal 3.5-5.1 [facility] Comment on above: Performed By: #### B MP, HSTROPN #### [facility] [address] [place] [address] Dr. Alexis Brink Sodium [Moles/Vol] 138 mmol/L Normal 136-145 [facility] Comment on above: Performed By: #### B MP, HSTROPN #### [facility] [address] [place] [address] [address] Alexis Brink Urea nitrogen [Mass/Vol] 18.0 mg/dL Normal 7.0-18.0 [facility] Comment on above: Performed By: #### B NARA HSTROPN #### [facility] [address] [place] [address] [address] Alexis Brink Urea nitrogen/Creatinin e [Mass ratio] 13.3 mg/mg Normal [facility] Comment on above: Performed By: #### B NARA HSTROPN #### [facility] [address] [place] [address] [address] Alexis Brink TROPONIN, HIGH SENSITIVITYon 08-10-2022 HSTROP 22.2 pg/mL Normal 4.0-76.1 [facility] Comment on above: Result Comment: CUT- OFF POINTS HAVE BEEN ESTABLISHED BASED ON THE FOURTH UNIVERSAL DEFINITIONS OF MYOCARDIAL INFARCTION. THE UPPER REFERENCE LIMIT (URL) OF TROPONIN, DEFINED THE 99TH PERCENTILE OF cTnI DISTRIBUTION IN A REFERENCE POPULATION, HAS BEEN CONFIRMED THE DECISION THRESHOLD FOR [place] DIAGNOSIS. Performed By: #### B NARA HSTROPN #### [facility] [address] [place] [address] Dr. Alexis Brink XR CHEST 1 Von [...] by: RADHA UNDERWOOD Date: 2022-08-10 16:07 Normal [facility] CBC AUTO DIFFon 02-09-2022 BASO # 0.0 103/ul Normal 0.0-0.1 [facility] Comment on above: Performed By: #### C BC #### [facility] [address] [place] [address] [address] Alexis Brink Basophils/100 WBC (Bld) 0.6 % Normal 0.2-2.0 [facility] Comment on above: Performed By: #### C BC #### [facility] [address] [place] [place] [address] Dr. Alexis Brink EO # 0.5 103/ul Normal 0.0-0.7 [facility] Comment on above: Performed By: #### C BC #### [facility] [address] [place] [address] Dr. Alexis Brink Eosinophils/100 WBC (Bld) 7.2 % Critically high 0.9-7.0 [facility] Comment on above: Performed By: #### C BC #### [facility] [address] [place] [address] Dr. Alexis Brink Erythrocyte distribution width (RBC) [Ratio] 12.4 % Normal 11.0-15.0 [facility] Comment on above: Performed By: #### C BC #### [facility] [address] [place] [address] Dr. Alexis Brink Hematocrit (Bld) [Volume fraction] 45.5 % Normal 42.0-54.0 [facility] Comment on above: Performed By: #### C BC #### [facility] [address] [place] [address] Dr. Alexis Brink Hemoglobin (Bld) [Mass/Vol] 15.4 g/dL Normal 14.0-18.0 [facility] Comment on above: Performed By: #### C BC #### [facility] [address] [place] [address] Dr. Alexis Brink IG # 0.02 10e3/ul Normal 0.00-0.03 [facility] Comment on above: Performed By: #### C BC #### [facility] [address] [place] [address] Dr. Alexis Brink IG % 0.3 % Normal 0.0-0.5 [facility] Comment on above: Performed By: #### C BC #### [facility] [address] [place] [address] Dr. Alexis Brink LYMPH # 1.3 103/ul Normal 1.2-3.8 [facility] Comment on above: Performed By: #### C BC #### [facility] [address] [place] [address] Dr. Alexis Brink Lymphocytes/100 WBC (Bld) 17.8 % Critically low 20.5-60.0 [facility] Comment on above: Performed By: #### C BC #### [facility] [address] [place] [address] Dr. Alexis Brink MANUAL DIFF REQ NO Normal [facility] Comment on above: Performed By: #### C BC #### [facility] [address] [place] [address] Dr. Alexis Brink MCH (RBC) [Entitic mass] 31.4 pg Normal 25.9-34.0 [facility] Comment on above: Performed By: #### C BC #### [facility] [address] [place] [address] Dr. Alexis Brink MCHC (RBC) [Mass/Vol] 33.8 g/dL Normal 29.9-35.2 [facility] Comment on above: Performed By: #### C BC #### [facility] [address] [place] [address] Dr. Alexis Brink MCV (RBC) [Entitic vol] 92.9 fL Normal 80.0-94.0 [facility] Comment on above: Performed By: #### C BC #### [facility] [address] [place] [address] Dr. Alexis Brink MONO # 0.7 103/ul Normal 0.3-0.8 [facility] Comment on above: Performed By: #### C BC #### [facility] [address] [place] [address] Dr. Alexis Brink Monocytes/100 WBC (Bld) 9.6 % Normal 1.7-12.0 [facility] Comment on above: Performed By: #### C BC #### [facility] [address] [place] [address] Dr. Alexis Brink NEUT # 4.6 103/ul Normal 1.4-6.5 [facility] Comment on above: Performed By: #### C BC #### [facility] [address] [place], [place] [address] Dr. Alexis Brink Neutrophils/100 WBC (Bld) 64.5 % Normal 43.0-75.0 [facility] Comment on above: Performed By: #### C BC #### [facility] [address] [place], [place] [address] Dr. Alexis Brink Platelet mean volume (Bld) [Entitic vol] 10.7 fL Normal 9.5-13.5 [facility] Comment on above: Performed By: #### C BC #### [facility] [address] [place] [address] [address] Alexis Brink PLT 130 103/ul Critically low 150-450 [facility] Comment on above: Performed By: #### C BC #### [facility] [address] [place] [address] [address] Alexis Brink RBC 4.90 106/ul Normal 4.70-6.10 [facility] Comment on above: Performed By: #### C BC #### [facility] [address] [place] [id number] [address] Alexis Brink WBC 7.1 103/ul Normal 4.0-11.0 [facility] Comment on above: Performed By: #### C BC #### [facility] [address] [place] [id number] Alexis Brink DIRECT LDLon 02-09-2022 Cholesterol in LDL [Mass/Vol] 144 mg/dL Normal [facility] Comment on above: Performed By: #### D LDL, BMP ####[facility] [address] [place] [id number]. Alexis Brink DLDL NORMAL SEE BELOW Normal [facility] Comment on above: Result Comment: <100 mg/dl OPTIMAL 100 - 129 mg/dl NEAR OR ABOVE OPTIMAL 130 - 159 mg/dl BORDERLINE HIGH 160 - 189 mg/dl HIGH >190 mg/dl VERY HIGH Performed By: #### D LDL, BMP ####[facility] [address] [place] [id number]. Alexis Brink PROF CHEM 8 (BAS METB)on Anion gap [Moles/Vol] 9.3 mmol/L Normal [facility] Comment on above: Performed By: #### D LDL, BMP #### [facility] [address] [place] [address] [address] Alexis Brink Calcium [Mass/Vol] 8.7 mg/dL Normal 8.5-10.1 [facility] Comment on above: Performed By: #### D LDL, BMP #### [facility] [address] [place] [address] [address] Alexis Brink Chloride [Moles/Vol] 103 mmol/L Normal 98-107 [facility] Comment on above: Performed By: #### D LDL, BMP #### [facility] [address] [place] [address] Dr. Alexis Brink CO2 [Moles/Vol] 32.1 mmol/L Critically high 21.0-32.0 [facility] Comment on above: Performed By: #### D LDL, BMP #### [facility] [address] [place] [address] Dr. Alexis Brink Creatinine [Mass/Vol] 1.35 mg/dL Critically high 0.70-1.30 [facility] Comment on above: Performed By: #### D LDL, BMP #### [facility] [address] [place] [address] Dr. Alexis Brink EGFR-AF SERBIAN >60 Normal >=[address] [facility] Comment on above: Performed By: #### D LDL, BMP #### [facility] [address] [place] [address] Dr. Alexis Brink EGFR-NON AF SERBIAN 51 mL/min/1.73m2 Critically low >=60 [facility] Comment on above: Performed By: #### D LDL, BMP #### [facility] [address] [place] [address] Dr. Alexis Brink Glucose [Mass/Vol] 90 mg/dL Normal 74-106 [facility] Comment on above: Performed By: #### D LDL, BMP #### [facility] [address] [place] [address] [address] Alexis Brink Potassium [Moles/Vol] 4.4 mmol/L Normal 3.5-5.1 [facility] Comment on above: Performed By: #### D LDL, BMP #### [facility] [address] [place] [address] Dr. Alexis Brink Sodium [Moles/Vol] 140 mmol/L Normal 136-145 [facility] Comment on above: Performed By: #### D LDL, BMP #### [facility] [address] [place] [address] Dr. Alexis Brink Urea nitrogen [Mass/Vol] 16.0 mg/dL Normal 7.0-18.0 [facility] Comment on above: Performed By: #### D LDL, BMP #### [facility] [address] [place] [address] Dr. Alexis Brink Urea nitrogen/Creatinin e [Mass ratio] 11.9 mg/mg Normal [facility] Comment on above: Performed By: #### D LDL, BMP #### [facility] [address] [place] [address] Dr. Alexis Brink UA RANDOMon 02-09-2022 Bilirubin Ql (U) Negative Normal NEGATIVE [facility] Comment on above: Performed By: #### U A #### [facility] [address] [place] [address] Dr. Alexis Brink Clarity (U) CLEAR Normal CLEAR [facility] Comment on above: Performed By: #### U A #### [facility] [address] [place] [address] Dr. Alexis Brink Color (U) YELLOW Normal YELLOW [facility] Comment on above: Performed By: #### U A #### [facility] [address] [place] [address] Dr. Alexis Brink Glucose Ql (U) Negative Normal NEGATIVE [facility] Comment on above: Performed By: #### U A #### [facility] [address] [place] [address] Dr. Alexis Brink Hemoglobin Ql (U) Negative Normal NEGATIVE [facility] Comment on above: Performed By: #### U A #### [facility] [address] [place] [address] Dr. Alexis Brink Ketones Ql (U) Negative Normal NEGATIVE [facility] Comment on above: Performed By: #### U A #### [facility] [address] [place] [address] Dr. Alexis Brink LEUKOCYTES Negative Normal NEGATIVE [facility] Comment on above: Performed By: #### U A #### [facility] [address] [place] [address] Dr. Alexis Brink Nitrite Ql (U) Negative Normal NEGATIVE [facility] Comment on above: Performed By: #### U A #### [facility] [address] [place] [address] Dr. Alexis Brink pH (U) 7.0 [pH] Normal 5-9 [facility] Comment on above: Performed By: #### U A #### [facility] [address] [place] [address] Dr. Alexis Brink SPEC GRAVITY 1.015 Normal 1.005-<=1.025 [facility] Comment on above: Performed By: #### U A #### [facility] [address] [place] [address] Dr. Alexis Brink UA PROTEIN Negative Normal NEGATIVE/ TRACE [facility] Comment on above: Performed By: #### U A #### [facility] [address] [place] [address] Dr. Alexis Brink Urobilinogen Qn (U) 1.0 {Kay'U}/dL Normal 0.2 - 1.0 [facility] Comment on above: Performed By: #### U A #### [facility] [address] [place] [address] Dr. Alexis Brink XR CHEST 2 Von [...] HAWLEY Date: 2021-12-06 15:42 Normal [facility] Nonvisit Note - PTon 018 Nonvisit Note - PT Cert letter refaxed for signature this date - third and final attempt. Normal [facility] Nonvisit Note - PTon 018 Nonvisit Note - PT Cert letter refaxed to Dr Gooden's office. Second attempt. Normal [facility] Coding Summary.on 01-25-2018 Coding Summary. CODING DATE: 01/25/2018 [facility] STATUS: PAYOR: Medicare ADMIT DX: REASON FOR [...] Pendleton Date Saved: 01/25/2018 10:54 am Normal [facility] Coding Summary. CODING DATE: 01/25/2018 [facility] STATUS: PAYOR: Medicare ADMIT DX: REASON FOR [...] [place] Date Saved: 01/25/2018 10:54 am Normal [facility] SURGICAL PATHOLOGYon 018 SURGICAL [facility]OLOGY [id number] Physician: BETH GOODEN MD FINAL DIAGNOSISRight hip, [...] to 8.5 x 8.5 x 1.8 cm. [facility] Service Line sectionsare submitted as follows: A1 soft tissue, A2 bone submitted afterdecalcification.B F/wlz 01/01/2018 Gross examination performed at [facility], [address] [place], [place] [address] of Report: 01/07/2018Date of Procedure: 01/01/2018Date of Receipt: 01/01/2018Submitted by: BETH GOODEN MDLocation: [id number] interpretation performed at [facility], [address] [place], [place] [id number]. Normal [facility] Comment on above: Performed By: #### S ####See report for performing lab information. Vital Signs Date Time Vital Sign Value Performing Clinician Facility 01-22-2024 09:16-0400 Body height 167.64 cm [facility] 01-22-2024 09:16-0400 Body mass index (BMI) [Ratio] 29.3 kg/m2 [facility] 01-22-2024 09:16-0400 Body weight 82.55 kg [facility] 01-22-2024 09:16-0400 Diastolic blood pressure 72 mm[Hg] [facility] 01-22-2024 09:16-0400 Heart rate 64 /min [facility] 01-22-2024 09:16-0400 Respiratory rate 20 /min [facility] 01-22-2024 09:16-0400 Systolic blood pressure 131 mm[Hg] [facility] 09-28-2023 11:00-0500 Body height 167.64 cm Cecilio Ball Other [facility] [employer] Other 09-28-2023 11:00-0500 Body mass index (BMI) [Ratio] 30.24 kg/m2 Cecilio Ball Other [facility] [employer] Other 09-28-2023 11:00-0500 Body weight 85 kg Cecilio Ball Other [facility] [employer] Other 09-28-2023 11:00-0500 Respiratory rate 20 /min Cecilio Ball Other [facility] [employer] Other 09-28-2023 11:00-0500 SaO2% (BldA) [Mass fraction] 97 % Cecilio Ball Other [facility] [employer] Other 09-11-2023 10:45-0500 Body height 167.64 cm Cecilio Ball Other [facility] [employer] Other 09-11-2023 10:45-0500 Body mass index (BMI) [Ratio] 29.86 kg/m2 Cecilio Ball Other [employer] Other 09-11-2023 10:45-0500 Body temperature 97.5 [degF] Cecilio Ball Other [employer] Other 09-11-2023 10:45-0500 Body weight 83.92 kg Cecilio Ball Other [employer] Other 09-11-2023 10:45-0500 Diastolic blood pressure 81 mm[Hg] Cecilio Ball Other [employer] Other 09-11-2023 10:45-0500 Respiratory rate 20 /min Cecilio Ball Other [employer] Other 09-11-2023 10:45-0500 SaO2% (BldA) [Mass fraction] 98 % Cecilio Ball Other [employer] Other 09-11-2023 10:45-0500 Systolic blood pressure 161 mm[Hg] Cecilio Ball Other [employer] Other 08-01-2023 10:15-0500 Body height 167.64 cm Cecilio Ball Other [employer] Other 08-01-2023 10:15-0500 Body mass index (BMI) [Ratio] 29.86 kg/m2 Cecilio Ball Other [employer] Other 08-01-2023 10:15-0500 Body weight 83.92 kg Cecilio Ball Other [employer] Other 08-01-2023 10:15-0500 Diastolic blood pressure 79 mm[Hg] Cecilio Ball Other [employer] Other 08-01-2023 10:15-0500 Respiratory rate 20 /min Cecilio Ball Other [employer] Other 08-01-2023 10:15-0500 Systolic blood pressure 172 mm[Hg] Cecilio Ball Other [employer] Other 07-17-2023 10:15-0500 Body height 167.64 cm Cecilio Ball Other [employer] Other 07-17-2023 10:15-0500 Body mass index (BMI) [Ratio] 29.89 kg/m2 Cecilio Ball Other [employer] Other 07-17-2023 10:15-0500 Body weight 84.01 kg Cecilio Ball Other [employer] Other 07-17-2023 10:15-0500 Diastolic blood pressure 78 mm[Hg] Cecilio Ball Other [employer] Other 07-17-2023 10:15-0500 Respiratory rate 20 /min Cecilio Ball Other [employer] Other 07-17-2023 10:15-0500 Systolic blood pressure 172 mm[Hg] Cecilio Ball Other [employer] Other 07-10-2023 14:45-0500 Body height 167.64 cm Cecilio Ball Other [employer] Other 07-10-2023 14:45-0500 Body mass index (BMI) [Ratio] 29.47 kg/m2 Cecilio Ball Other [employer] Other 07-10-2023 14:45-0500 Body weight 82.83 kg Cecilio Ball Other [employer] Other 07-10-2023 14:45-0500 Diastolic blood pressure 80 mm[Hg] Cecilio Ball Other [employer] Other 07-10-2023 14:45-0500 Respiratory rate 20 /min Cecilio Ball Other [employer] Other 07-10-2023 14:45-0500 Systolic blood pressure 150 mm[Hg] Cecilio Ball Other [employer] Other 06-20-2023 08:30-0400 Body height 167.64 cm Cecilio Ball Other [employer] Other 06-20-2023 08:30-0400 Body mass index (BMI) [Ratio] 29.6 kg/m2 Cecilio Ball Other [employer] Other 06-20-2023 08:30-0400 Body weight 83.19 kg Cecilio Ball Other [employer] Other 06-20-2023 08:30-0400 Diastolic blood pressure 76 mm[Hg] Cecilio Ball Other [employer] Other 06-20-2023 08:30-0400 Respiratory rate 20 /min Cecilio Ball Other [employer] Other 06-20-2023 08:30-0400 Systolic blood pressure 157 mm[Hg] Cecilio Ball Other [employer] Other 05-30-2023 13:45-0400 Body height 167.64 cm Cecilio Ball Other [employer] Other 05-30-2023 13:45-0400 Body mass index (BMI) [Ratio] 28.95 kg/m2 Cecilio Ball Other [employer] Other 05-30-2023 13:45-0400 Body weight 81.38 kg Cecilio Ball Other [employer] Other 05-30-2023 13:45-0400 Diastolic blood pressure 78 mm[Hg] Cecilio Ball Other [employer] Other 05-30-2023 13:45-0400 Respiratory rate 16 /min Cecilio Ball Other [employer] Other 05-30-2023 13:45-0400 Systolic blood pressure 158 mm[Hg] Cecilio Ball Other [employer] Other 02-14-2023 08:30-0400 Body height 167.64 cm Cecilio Ball Other [employer] Other 02-14-2023 08:30-0400 Body mass index (BMI) [Ratio] 28.57 kg/m2 Cecilio Ball Other [employer] Other 02-14-2023 08:30-0400 Body weight 80.29 kg Cecilio Ball Other [employer] Other 02-14-2023 08:30-0400 Diastolic blood pressure 80 mm[Hg] Cecilio Ball Other [employer] Other 02-14-2023 08:30-0400 Respiratory rate 16 /min Cecilio Ball Other [employer] Other 02-14-2023 08:30-0400 Systolic blood pressure 135 mm[Hg] Cecilio Ball Other [employer] Other 02-01-2023 08:15-0400 Body height 167.64 cm Jose Enrique Leblanc II Other [employer] Other 02-01-2023 08:15-0400 Body mass index (BMI) [Ratio] 27.44 kg/m2 Jose Enrique Benji II Other [employer] Other 02-01-2023 08:15-0400 Body weight 77.11 kg Jose Enrique Benji II Other [employer] Other 12-11-2022 10:30-0400 Body height 167.64 cm Cecilio Ball Other [employer] Other 12-11-2022 10:30-0400 Body mass index (BMI) [Ratio] 28.66 kg/m2 Cecilio Ball Other [employer] Other 12-11-2022 10:30-0400 Body weight 80.56 kg Cecilio Ball Other [employer] Other 12-11-2022 10:30-0400 Diastolic blood pressure 76 mm[Hg] Cecilio Ball Other [employer] Other 12-11-2022 10:30-0400 Respiratory rate 12 /min Cecilio Ball Other [employer] Other 12-11-2022 10:30-0400 Systolic blood pressure 151 mm[Hg] Cecilio Ball Other [employer] Other 11-09-2022 16:00-0400 Body mass index (BMI) [Ratio] 29.21 kg/m2 Jose Enrique [place] II Other [employer] Other 11-09-2022 16:00-0400 Body weight 82.1 kg Jose Enrique Evening Sh[place] II Other [employer] Other 11-09-2022 10:30-0400 Body height 167.64 cm Cecilio Ball Other [employer] Other 11-09-2022 10:30-0400 Body mass index (BMI) [Ratio] 29.23 kg/m2 Cecilio Ball Other [employer] Other 11-09-2022 10:30-0400 Body weight 82.15 kg Cecilio Ball Other [employer] Other 11-09-2022 10:30-0400 Diastolic blood pressure 79 mm[Hg] Cecilio Ball Other [employer] Other 11-09-2022 10:30-0400 Respiratory rate 20 /min Cecilio Ball Other [employer] Other 11-09-2022 10:30-0400 Systolic blood pressure 152 mm[Hg] Cecilio Ball Other [employer] Other 10-12-2022 10:00-0500 Body height 167.64 cm Cecilio Ball Other [employer] Other 10-12-2022 10:00-0500 Body mass index (BMI) [Ratio] 29.24 kg/m2 Cecilio Ball Other [employer] Other 10-12-2022 10:00-0500 Body weight 82.19 kg Cecilio Ball Other [employer] Other 10-12-2022 10:00-0500 Diastolic blood pressure 70 mm[Hg] Cecilio Ball Other [employer] Other 10-12-2022 10:00-0500 Respiratory rate 12 /min Cecilio Ball Other [employer] Other 10-12-2022 10:00-0500 Systolic blood pressure 102 mm[Hg] Cecilio Ball Other [employer] Other Encounters Encounter Date Encounter Type Care Provider Facility Start: 02-11-2024 End: 02-11-2024 ambulatory Maddie Villalobos MD Facility: [facility] Start: 01-28-2024 End: 01-28-2024 ambulatory Maddie Villalobos MD Facility:[facility] Start: 01-22-2024 End: 01-22-2024 ambulatory [facility] Work Phone: Start: 01-22-2024 End: 01-22-2024 Patient encounter procedure [facility] Work Phone: Start: 10-30-2023 Non-patient / Non-visit [facility] Work Phone: Start: 09-28-2023 End: 09-28-2023 ambulatory Cecilio Benjamin Other [employer] Other Start: 09-28-2023 Office outpatient vi sit 15 minutes Cecilio Ball [facility] Start: 09-28-2023 Telephone encounter Cecilio Benjamin [facility] Start: 09-21-2023 End: 09-21-2023 ambulatory Cecilio Benjamin Other [employer] Other Start: 09-21-2023 Telephone encounter Cecilio Benjamin [facility] Start: 09-11-2023 End: 09-11-2023 ambulatory Cecilio Sourav Other [employer] Other Start: 09-11-2023 Office outpatient vi sit 15 minutes Cecilio Ball [facility] Start: 09-11-2023 Telephone encounter Cecilio Benjamin [facility] Start: 09-03-2023 End: 09-03-2023 ambulatory Cecilio Sourav Other [employer] Other Start: 09-03-2023 Telephone encounter Cecilio Benjamin [facility] Start: 08-03-2023 End: 08-03-2023 ambulatory Cecilio Ball Other [employer] Other Start: 08-03-2023 Telephone encounter Cecilio Benjamin [facility] Start: 08-01-2023 End: 08-01-2023 ambulatory Cecilio Ball Other [employer] Other Start: 08-01-2023 Office outpatient vi sit 15 minutes Cecilio Ball [facility] Start: 07-17-2023 End: 07-17-2023 ambulatory Cecilio Ball Other [employer] Other Start: 07-17-2023 Office outpatient vi sit 15 minutes Cecilio Ball [facility] Start: 07-10-2023 End: 07-10-2023 ambulatory Cecilio Ball Other [employer] Other Start: 07-10-2023 Office outpatient vi sit 15 minutes Cecilio Ball [facility] Start: 06-20-2023 End: 06-20-2023 ambulatory Cecilio Ball Other [employer] Other Start: 06-20-2023 Office outpatient vi sit 25 minutes Cecilio Ball [facility] Start: 06-15-2023 End: 06-15-2023 ambulatory Cecilio Ball Other [employer] Other Start: 06-15-2023 Telephone encounter Cecilio Benjamin [facility] Start: 05-30-2023 End: 05-30-2023 ambulatory Cecilio Ball Other [employer] Other Start: 05-30-2023 Office outpatient vi sit 15 minutes Cecilio Ball [facility] Start: 03-20-2023 Telephone encounter David Jaeger DO Work Phone: [facility] [place] [facility] Comment on above: Follow Up Phone Call Start: 03-15-2023 End: 03-15-2023 ambulatory DAVID JAEGER Facility:[facility] Start: 02-27-2023 Orders Only David Marcos DO Work Phone: Procedures Comment on above: Pseudoclaudication s yndrome (Primary Dx); Lumbar radiculopathy Start: 02-26-2023 Telephone encounter David Jaeger DO Work Phone: [facility] [place] [facility] Comment on above: Procedure Start: 02-19-2023 Telephone encounter David Sis Faheem DO Work Phone: [facility] Comment on above: Appointment Start: 02-14-2023 End: 02-14-2023 ambulatory Cecilio Benjamin Other [employer] Other Start: 02-14-2023 Patient encounter procedure Cecilio Benjamin [facility] Start: 02-13-2023 End: 02-13-2023 ambulatory Cecilio Benjamin Other [employer] Other Start: 02-13-2023 Telephone encounter Cecilio DENISE [facility] Start: 02-08-2023 End: 02-08-2023 ambulatory Cecilio Benjamin Other [employer] Other Start: 02-08-2023 Telephone encounter Cecilio Sourav DENISE [facility] Start: 02-01-2023 End: 02-01-2023 ambulatory Jose Enrique Leblanc II Other [employer] Other Start: 02-01-2023 Office outpatient vi sit 25 minutes Jose Enrique Leblanc II [facility] Start: 12-11-2022 End: 12-11-2022 ambulatory Cecilio Benjamin Other [employer] Other Start: 12-11-2022 Office outpatient vi sit 15 minutes Cecilio Benjamin [facility] Start: 11-09-2022 End: 11-09-2022 ambulatory Jose Enrique Leblanc II Facility:[facility] Start: 11-09-2022 End: 11-09-2022 Patient encounter procedure MD Jose Enrique Leblanc II Work Phone: [facility] Start: 11-09-2022 End: 11-09-2022 ambulatory MD Jose Enrique Leblanc II Work Phone: [facility] Work Phone: Start: 11-09-2022 Office outpatient ne w 45 minutes Jose Enrique Leblanc II [facility] Start: 11-09-2022 Office outpatient vi sit 15 minutes Cecilio Benjamin [facility] Start: 11-05-2022 End: 11-05-[address] ECCILIO BENJAMIN Facility:[facility] Start: 10-12-2022 End: 10-12-2022 ambulatory Cecilio Benjamin Other [employer] Other Start: 10-12-2022 Office outpatient vi sit 25 minutes Cecilio Benjamin [facility] Start: 09-27-2022 End: 09-27-2022 ambulatory Cecilio Benjamin Other [employer] Other Start: 09-27-2022 Telephone encounter Cecilio Benjamin [facility] [place] Start: 09-26-2022 End: 09-27-[address] CECILIO BENJAMIN Facility:[facility] Start: 08-25-2022 End: 08-25-2022 ambulatory Cecilio Benjamin Other [employer] Other Start: 08-25-2022 Telephone encounter Cecilio Benjamin [facility] [place] Start: 08-10-2022 End: 08-10-[address] CECILIO BENJAMIN Facility:[facility] Start: 02-09-2022 End: 02-10-[address] ECCILIO BENJAMIN Facility:[facility] Start: 12-06-2021 End: 12-07-[address] CECILIO BENJAMIN Facility:[facility] Start: 01-22-2018 End: 04-20-2018 Patient encounter [id number] AUGUSTINE BENJAMIN [place] [place] Date Procedure Procedure Detail Performing Clinician Start: 11-09-2022 Pelvis X-ray MD Jose Enrique Leblanc II Work Phone: Start: 11-09-2022 Radiologic examinati on of knee MD Jose Enrique Leblanc II Work Phone: Plan of Treatment Date Care Activity Detail Author Start: 01-22-2024 Patient referral [facility] Work Phone: Start: 04-20-2023 Influenza vaccination INFLUENZA (#1) [facility] Start: 10-01-2022 COVID-19 VACCINE (5 - Moderna series) COVID-19 VACCINE (5 - Moderna series) [facility] Start: 08-20-2022 ADVANCE DIRECTIVE DISCUSSION ADVANCE DIRECTIVE DISCUSSION [facility] Start: 08-20-2022 DEPRESSION ASSESSMENT DEPRESSION ASS ESSMENT [facility] Start: 09-19-2021 COVID-19 VACCINE (4 - Booster for Moderna series) COVID-19 VACCINE (4 - Booster for Moderna series) [facility] Start: 09-19-2021 COVID-19 VACCINE (4 - Moderna series) COVID-19 VACCINE (4 - Moderna series) [facility] Start: 01-02-2021 DIABETES SCREEN DIABETES SCREEN [facility] Start: 1991 SHINGRIX VACCINE (1 of 2) SHINGRIX VACCINE (1 of 2) [facility] Start: 1960 Urine microalbumin profile DTAP,TDAP,TD (1 - Tdap) [facility] Start: 1959 SPIROMETRY SPIROMETRY [facility] Start: 1947 PNEUMOCOCCAL: 65+ (1 - PCV) PNEUMOCOCCAL: 65+ (1 - PCV) [facility] Comprehensive metabo lic 2000 panel - Serum or Plasma [facility] Patient referral [facility] Work Phone: SPINE INTERVENTION PROCEDURE SPINE INTERVENTION PROCEDURE Procedures Routine Spinal stenosis, lumbar region with neurogenic claudication Lumbar radiculopathy, chronic Ordered: 02/19/2023 [facility] Work Phone: Comment on above: Ordered: 02/19/2023 [facility] Immunizations Immunization Date Immunization Notes Care Provider Coleman bermudez 05-30-2023 COVID-19 Vaccine Moderna - Documentation Purposes Only Cecilio Benjamin Other [facility] 05-30-2023 influenza virus vaccine, unspecified formulation [facility] 10-11-2023 influenza, high dose seasonal, preservative-free Cecilio Benjamin Other [employer] Other 06-13-2022 influenza virus vaccine, split virus (incl. purified surface antigen) Cecilio Benjamin Other [employer] Other 06-13-2022 influenza virus vaccine, unspecified formulation [facility] 06-13-2022 influenza, high dose seasonal, preservative-free Jose Enrique [place] [employer] Other [facility] [employer] Other 05-31-2022 COVID-19 Pfizer (bivalent) Jose Enrique Evening Shade II Other [facility] 05-31-2022 COVID-19 Pfizer (Pediatric) Cecilio Benjamin Other [facility] 07-25-2021 COVID-19 Vaccine Moderna - Documentation Purposes Only Jose Enrique Benji II Other [facility] 05-03-2021 zoster vaccine recombinant Jose Enrique Evening Shade II Other [facility] 05-03-2021 zoster vaccine, live Benjami n Ball Other [facility] 01-28-2021 zoster vaccine recombinant Jose Enrique Evening Shade II Other [facility] 01-28-2021 zoster vaccine, live Benjami n Ball Other [facility] 10-25-2020 COVID-19 Vaccine Moderna - Documentation Purposes Only Jose Enrique Evening Shade II Other [facility] 09-27-2020 COVID-19 Vaccine Moderna - Documentation Purposes Only Jose Enrique Evening Shade II Other [facility] 05-24-2020 influenza virus vaccine, split virus (incl. purified surface antigen) Cecilio Benjamin Other [facility] [employer] Other 05-24-2020 influenza virus vaccine, unspecified formulation [facility] 01-03-2019 diphtheria, tetanus toxoids and acellular pertussis vaccine, unspecified formulation Cecilio Benjamin Other [facility] 12-25-2018 pneumococcal polysaccharide vaccine, 23 valent Jose Enrique Evening Shade II Other [facility] 04-30-2018 influenza virus vaccine, split virus (incl. purified surface antigen) Cecilio Benjamin Other [facility] [employer] Other 04-30-2018 influenza virus vaccine, unspecified formulation [facility] 04-09-2017 influenza virus vaccine, split virus (incl. purified surface antigen) Cecilio Benjamin Other [facility] [employer] Other 04-09-2017 influenza virus vaccine, unspecified formulation [facility] 05-31-2016 zoster vaccine, live Jose Enrique Evening Shade II Other [facility] 05-13-2016 influenza virus vaccine, split virus (incl. purified surface antigen) Cecilio Benjamin Other [facility] [employer] Other 05-13-2016 influenza virus vaccine, unspecified formulation [facility] 05-09-2015 influenza virus vaccine, split virus (incl. purified surface antigen) Cecilio Benjamin Other [facility] [employer] Other 05-09-2015 influenza virus vaccine, unspecified formulation [facility] 03-06-2015 pneumococcal conjuga te vaccine, 13 valent Jose Enrique Evening Shade II Other [facility] 05-07-2014 tetanus and diphther ia toxoids, adsorbed, preservative free, for adult use (5 Lf of tetanus toxoid and 2 Lf of diphtheria toxoid) Cecilio Benjamin Other [facility] 04-23-2013 tetanus and diphther ia toxoids, adsorbed, preservative free, for adult use (5 Lf of tetanus toxoid and 2 Lf of diphtheria toxoid) Cecilio Benjamin Other [facility] 08-21-2012 pneumococcal polysaccharide vaccine, 23 valent Cecilio Ball Other [facility] 12-12-2011 zoster vaccine, live Jose Enrique Leblanc II Other [facility] Payers Date Payer Category Payer Self-pay 2022 Unknown [id number] 2018 Medicare [id number] 2006 Medicare [id number] 2006 Unknown [id number] 1959 Medicare [id number] 2.1 [id number] 1959 Unknown [id number] 2.16. [id number] 1941 Unknown [id number] 2.16.84 [id number] 1941 Unknown [id number] 2.16.84 [id number] 1941 Unknown [id number] 2.16.84 [id number] 1941 Unknown [id number] 2.16.84 [id number] 1941 Unknown [id number] 2.16.84 [id number] 1941 Unknown [id number] 2.16. [id number] 1941 Unknown [id number] 2.16. [id number] Unknown [id number] 2.16.8 [id number] Social History Date Type Detail Facility Start: 05-09-2021 End: 03-15-2023 Sex Assigned At [facility] Start: 1940 Sex Assigned At Male F [facility] Start: 06-13-2017 End: 01-22-2024 Tobacco smoking status NHIS Never smoked tobacco [facility] Start: 06-13-2017 Tobacco use and exposure Smokeless tobacco non-user [facility] Start: 05-09-2021 Alcohol intake Current drinke r of alcohol (finding) [facility] Start: 12-11-2017 Alcohol Comment [employer] in coffee C [facility] Start: 1940 Sex Assigned At Not on file C [facility] Start: 05-09-2021 End: 03-15-2023 History of Social function [facility] Adult Depression Screening Assessment 1 [facility] Medical Equipment Procedure Code Equipment Code Equipment Origin al Text Equipment Identifier Dates [place] Swivelock Tenodesis 8mm Biocomposite 19.5mm Suture [place] Eyelet - [id number] Start: 06-29-2017 Sleeve V40 +0mm Offset [place] Taper Titanium Adapter Hip - [id number] Start: 01-01-2018 Screw [employer]ident Secur-Fit Torx 6.5mm Titanium 20mm Bone Sterile Acetabular - [id number] Start: 01-01-2018 Clinical Notes 08-25-2022 to 01-22-2024 Note Date & Type Note Facility 01-22-2024 Evaluation note Diagnosis Onset Date Chronic bronchitis, simple a cute Chronic kidney disease, stage 3a acute Elevated cholesterol acute Generalized anxiety disorder acute Hypertension acute Lumbar spondylolysis acute Obstructive sleep apnea acut e Medicare annual wellness visit, subsequent noneactive [facility] Work Phone: [phone] Evaluation note* Encounter Date Diagnosis Assessment Notes [...] and clinically improving, no further treatment necessary [employer] Other 02-02-2024 Evaluation note* Encounter Date Diagnosis Assessment Notes Treatment Notes Treatment Clinical Notes Sep, Carotid bruit, unspecified laterality (ICD-10 - R09.89) [employer] Other 01-23-2024 Evaluation note* Encounter Date Diagnosis [...] tid Initiate Prednisone _update office on Sunday [employer] Other 01-15-2024 Evaluation note* Encounter Date Diagnosis Assessment Notes Treatment Notes Treatment Clinical Notes Aug, JONATHAN (generalized anxiety disorder) (ICD-10 - F41.1) [employer] Other 12-13-2023 Evaluation note* Encounter Date Diagnosis [...] best 2/3 readings w/ goal < 135/85 [employer] Other 11-28-2023 Evaluation note* Encounter Date Diagnosis [...] daily for blisters and ulcerations. Moisturizers daily [employer] Other 11-21-2023 Evaluation note* Encounter Date Diagnosis [...] Call if develop increased pain or erythema [employer] Other 11-01-2023 Evaluation note* Encounter Date Diagnosis [...] use, the patient reduces the risk for NH, CVA, HTN, cardiac dysrhythmias and sudden cardiac [...] very active. No change in medical treatment [employer] Other 10-27-2023 Evaluation note* Encounter Date Diagnosis Assessment Notes Treatment Notes Treatment Clinical Notes May, JONATHAN (generalized anxiety disorder) (ICD-10 - F41.1) [employer] Other 10-11-2023 Evaluation note* Encounter Date Diagnosis [...] They may safely use Tylenol as needed. [employer] Other 08-01-2023 Miscellaneous Notes* Telephone Encounter - Neida Porter MA - 03/20/2023 12:26 PM EDT DATE OF SERVICE: 03/15/2023 PATIENT'S PHONE NUMBERS: [phone] (home) OR [facility] PROVIDER: Dr. Jaeger PROCEDURE: Elective Pain Management Procedure Left message on machine Asked pt to call back and speak with the specialty triage nurse with update. Please obtain percentage better and the duration of improvement. Please inquire if there were any problems afterwards. Neida Brink documented [facility] encounter[facility]23 Miscellaneous Notes* Telephone Encounter - Linda Knox LPN - 02/26/2023 4:42 PM EDT Spoke to patient in [place] to pre procedure instructions. Pt must have a wood pile driver operator. Pt advised to arrive 30 min prior. [...] take. Advised on location of ASC-2nd floor [facility] Pt will receive a follow up call several days after by a steam hammer operator. If you experience any increase in weakness, difficulty walking or significant increase in pain thatlast more than 4 hours, please proceed to the Emergency Room and tell them you had a spine procedure done recently. Additionally, call us and notify us of these symptoms. Please call [phone] if you have any questions. Pt verbalized understanding. documented in this encounterOhio[facility]07-03-2023 Miscellaneous Notes* Telephone Encounter - Linda Knox LPN - 02/19/2023 11:57 AM EDT Order approved [facility]. Daughter given scheduling number [phone] Pt must have a wood pile driver operator. Pt advised to arrive 30 min prior to the time given by the mill order scheduler. Pt advised will also receive a call the day before from the surgery center to confirm date/time. Pt can eat and drink as normal. and Pt can take medications as normal. No alcohol 24 hours prior. Pt is on ASA.- 81 mg okay to take. and must Advised on location of ASC-2nd floor [facility] Pt will receive a follow up call several days after by a steam hammer operator. If you experience any increase in weakness, difficulty walking or significant increase in pain thatlast more than 4 hours, please proceed to the Emergency Room and tell them you had a spine procedure done recently. Additionally, call us and notify us of these symptoms. Please call [phone] if you have any questions. Pt verbalized [...] call Celi as patient cannot hear well [phone] Patient has been identified by name and birthdate. Duration of symptoms: N/A Person calling: daughter: Celi Rhodes patient at: N/A [phone] (home) [phone] (cell) Was an appointment scheduled: No Closing statement: Results or non-symptom based questions: Thank you for calling [facility], your call will be returned within the next business day. Camilla Jarrell Pss documented in this encounterOhiohealth [facility] Center06-28-2023 Evaluation note* Encounter Date Diagnosis Assessment Notes [...] use, the patient reduces the risk for NH, CVA, HTN, cardiac dysrhythmias and sudden cardiac [...] (ICD-10 - F41.1) Healthy diet, keep active [employer] Other 06-22-2023 Evaluation note* Encounter Date Diagnosis Assessment Notes Treatment Notes Treatment Clinical Notes Jan, Elevated cholesterol (ICD-10 - E78.00) Jan, Stage 3a chronic kidney disease (ICD-10 - N18.31) Jan, Primary hypertension (ICD-10 - I10) Jan, Screening PSA (prostate specific antigen) (ICD-10 - Z12.5) Jan, High risk medication use (ICD-10 - Z79.899) [employer] Other 06-15-2023 Evaluation note* Encounter Date Diagnosis [...] this time 6. Follow up as needed [employer] Other 04-24-2023 Evaluation note* Encounter Date Diagnosis [...] use of statin, experiencing ADR and stopped [employer] Other 03-23-2023 Evaluation note* Encounter Date Diagnosis [...] - M17.12) Quad exercises, ice/heat and Tylenol [employer] Other 03-23-2023 Evaluation note* Encounter Date Diagnosis [...] injection well. 6. Follow up as needed [employer] Other 02-23-2023 Evaluation note* Encounter Date Diagnosis [...] use, the patient reduces the risk for NH, CVA, HTN, cardiac dysrhythmias and sudden cardiac [...] tract symptoms (ICD-10 - N40.1) Symptoms tolerable [employer] Other 02-08-2023 Evaluation note* Encounter Date Diagnosis Assessment Notes Treatment Notes Treatment Clinical Notes Sep, Elevated cholesterol (ICD-10 - E78.00) Sep, Stenosis of right carotid artery (ICD-10 - I65.21) Sep, Retinal hemorrhage of right eye (ICD-10 - H35.61) [employer] Other 01-06-2023 Evaluation note* Encounter Date Diagnosis Assessment Notes Treatment Notes Treatment Clinical Notes Aug, Carotid bruit, unspecified laterality (ICD-10 - R09.89) [employer] Other Evaluation noteNo assessment information available [facility] Work Phone: Evaluation noteNo [employer] Other Evaluation note* Diagnosis Spinal stenosis, lumbar region with neurogenic claudication- Primary Lumbar radiculopathy, chronic Thoracic or lumbosacral neuritis or radiculitis, unspecified documented in this encounter [facility]* Diagnosis Pseudoclaudication syndrome- Primary Spinal stenosis, lumbar region, with neurogenic claudication Lumbar radiculopathy Thoracic or lumbosacral neuritis or radiculitis, unspecified Pseudoclaudication syndrome Spinal stenosis, lumbar region, with neurogenic claudication Lumbar radiculopathy Thoracic or lumbosacral neuritis or radiculitis, unspecified documented in this encounter [facility] general Narrative - Reported* Type Description Date [...] JANELLE 06/2017 Hospitalization History see surgical history [employer] Other Hospital Discharge instructionsAmbulatory Orders* Referral to Pain Management Location: None [facility] Work Phone: Summary Purpose Family History [...] and content) DATE CREATED AUTHOR 02/06/2018 [facility] DATE CREATED AUTHOR AUTHOR'S ORGANIZ ATION 06/10/2018 [facility] DATE CREATED AUTHOR AUTHOR'S ORGANIZ ATION 11/06/2022 [facility] DATE CREATED AUTHOR AUTHOR'S ORGANIZ ATION 12/21/2022 [facility] DATE CREATED AUTHOR AUTHOR'S ORGANIZ ATION 03/15/2023 [facility] DATE CREATED AUTHOR AUTHOR'S ORGANIZ ATION 03/22/2023 [facility] DATE CREATED AUTHOR AUTHOR'S ORGANIZ ATION 02/14/2024 [facility] REASON FOR VISIT (unrecogniz ed section and content) Reason Comments Appointment Reason Comments Procedure Reason Comments Follow Up Phone Call Care Teams (unrecognized sec tion and content) Team Status: Inactive Member Role Status Dates Jose Enrique Leblanc II, MD Attending Provider Active [employer] Supervisor Relationship Specialty Start Date End Date Cecilio Benjamin DO PCP - General Internal Medicine 09/04/13 [employer] Super[employer] Relationship Specialty Start Date End Date Cecilio Benjamin DO PCP - General Internal Medicine 09/04/13 [employer] Supervisor Relationship Specialty Start Date End Date Cecilio Benjamin DO PCP - General Internal Medicine 09/04/13 [employer] Supervisor Relationship Specialty Start Date End Date Cecilio Benjamin DO PCP - General Internal Medicine 09/04/13 Team Status: Active Member Role Status Dates Cecilio Benjamin DO Primary Care Provider Active Team Status: Active Member Role Status Dates Cecilio Benjamin DO Primary Care Provider Active Start: October 30, 2023 UJSTIN Gan Attending Provider Active Start : October 30, 2023 Team Status: Inactive Member Role Status Dates eCcilio Benjamin DO Primary Care Provide r, Attending [...] prosecute any alcohol or drug abuse patient.[facility] CenterIn the event this information is protected by the Federal Confidentiality of Alcohol and Drug Abuse Patient Records regulations: The Federal rules restrict any use of the information to criminally investigate or prosecute any alcohol or drug abuse patient.[facility] CenterIn the event this information is protected by the Federal Confidentiality of Alcohol and Drug Abuse Patient Records regulations: The Federal rules restrict any use of the information to criminally investigate or prosecute any alcohol or drug abuse patient.[facility] CenterIn the event this information is protected by the Federal Confidentiality of Alcohol and Drug Abuse Patient Records regulations: The Federal rules restrict any use of the information to criminally investigate or prosecute any alcohol or drug abuse patient.[facility] FOR RECORDS PERTAINING TO PATIENTS WHO ARE [...] BE BASED ON THE PRIMARY CLINICAL RECORDS. [employer] provides no warranty or guarantee of the accuracy or completeness of information in this document.
--- NOTE | 2024-03-05 09:02 | P.CN_ITS ---
Consult Note: HPI Data of Consult Patient: known to practice within the last 3 years Consult date: 02/11/24 Requesting Physician: Erica Hope NP Primary Care Provider: Cecilio Benjamin, Consult Narrative Reason for consult: low back, bilateral lower extremity pain Narrative: 83yom who presents for assessment. continues to have pain throughout low back with weakness in lower extremities. imaging reviewed, which is significant for multilevel stenosis, worst at l4-5, where there is also disc bulge. also multilevel spondylosis and facet arthropathy noted. continues to stay very active and engage in chiropractic therapy as needed. uses otc meds as needed. Pain 5/10 aching tiredness without numbness tingling of low back. Reporting 60% improvement in pain/functional ability ongoing as a result of Bilateral L4-5 L5- S1 TFESI, resolution of leg/feet pain and weakness per pt. cc:: CC: Erica Hope NP Review of Systems ROS Status of ROS 10 or more systems reviewed and unremark able except as noted in history and below Musculoskeletal Reports: back pain PFSH PFSH Medical History (Updated 02/25/24 @ 10:56 by Joann Gifford) Low back pain ?M54.50 - Low back pain, unspecified (ICD-10) Heartburn ?R12 - Heartburn (ICD-10) Sleep apnea ?G47.30 - Sleep apnea, unspecified (ICD-10) COPD (chronic obstructive pulmonary disease) ?J44.9 - Chronic obstructive pulmonary disease, unspecified (ICD-10) Asthma ?J45.909 - Unspecified asthma, uncomplicated (ICD-10) Hypertension ?I10 - Essential (primary) hypertension (ICD-10) Surgical History H/O cervical spine surgery ?Z98.890 - Other specified postprocedural states (ICD-10) S/P tonsillectomy and adenoidectomy ?Z90.89 - Acquired absence of other organs (ICD-10) History of ankle surgery ?Z98.890 - Other specified postprocedural states (ICD-10) S/P cholecystectomy ?Z90.49 - Acquired absence of other specified parts of digestive tract (ICD- 10) S/P total hip arthroplasty ?Z96.649 - Presence of unspecified artificial hip joint (ICD-10) History of surgery on upper extremity ?Z98.890 - Other specified postprocedural states (ICD-10) Meds Home Medications and Allergies Home Medications ?Medication ?Instructions ?Recorded ?Confirmed ?Type albuterol sulfate 90 mcg/actuation 2 inh inhalation Q8H PRN shortness 01/28/24 02/25/24 History aerosol inhaler (Ventolin HFA) of breath or wheezing amlodipine 2.5 mg tablet 2.5 mg PO DAILY 01/28/24 02/25/24 History clonazepam 0.5 mg tablet 0.5 mg PO DAILY 01/28/24 02/25/24 History escitalopram oxalate 10 mg tablet 10 mg PO DAILY 01/28/24 02/25/24 History (Lexapro) fluticasone propionate 110 1 inh inhalation BID 01/28/24 02/25/24 History mcg/actuation HFA aerosol inhaler nabumetone 500 mg tablet 500 mg PO BID 01/28/24 02/25/24 History omeprazole 20 mg capsule,delayed 20 mg PO DAILY 01/28/24 02/25/24 History release tamsulosin 0.4 mg capsule (Flomax) 0.4 mg PO DAILY 01/28/24 02/25/24 History Allergies Allergy/AdvReac Type Severity Reaction Status Date / Time bacitracin AdvReac Mild Rash Verified 02/25/24 10:48 Exam Narrative Exam Narrative: Psych-alert and oriented x 3. Attentive and appropriate, constitutionally normal, displays normal mood and affect per situation.? There are no obvious deficits in memory, reasoning, or intellect.? Skin-no obvious rashes, bruising, erythema noted to the patient's area of pain. Extremities- extremities are warm with minimal edema and palpable pulses. Lumbar-no significant tenderness to palpation noted in the lumbar spine and paraspinal musculature.? Pain is elicited with extension, and lateral rotation of the lumbar spine. Range of motion is slightly diminished with these motions due to pain. Facet loading maneuvers are positive bilaterally and do appear to be concordant with the patient's normal complaints of pain.? Coordination remains intact.? Gait remains non-antalgic. Constitutional Documenting provider has reviewed patient's vital signs: yes Common normals: no apparent distress, oriented x3, healthy appearing, alert and well nourished General appearance: cooperative HENMT Common normals: normocephalic, hearing grossly normal bilaterally and moist oral mucous membranes Head and scalp: normocephalic Eye Common normals: PERRL Pupil: PERRL Neck & C-Spine Common normals: full ROM General: normal visual inspection Chest Common normals: inspection of chest normal Respiratory Common normals: normal respiratory effort, no retractions and no use of accessory muscles Neuro Common normals: oriented x3, CN's II-XII intact bilaterally, moves all extremities, no focal motor deficits, no sensory deficits noted and deep tendon reflexes 2+ bilaterally Sensorium/orientation: alert Motor exam: strength 5/5 throughout and no movement abnormalities noted Psych Common normals: mental status grossly normal, thought process normal, cooperative, affect normal, speech normal and activity/motor behavior normal Speech: normal speech Thought process: normal thought process Results Additional Findings Additional findings: If on a controlled substance or opioids, I have checked an [place] report on this patient and there are no aberrancies noted in the prescribing history.??If on a controlled substance or opioid a drug screen was completed and reviewed within the last year, and if there has not been a drug screen completed we ordered one today to monitor higher risk, state monitored pain medication use. As part of providing excellent, safe, comprehensive care, the following was completed at our patient's visit: 1. A medication reconciliation and review to ensure accurate knowledge of current/active medications, including asking our patients to inform us about any [id number] medications or herbal remedies/nutritional supplements/alternative remedies. 2. A review to specifically ensure our patients have had annual screening for screening for depression, screening for tobacco use, and screening for unhealthy alcohol use. For concerning screenings had a discussion with the patient, provided patient education, and recommended follow-up with primary care provider when appropriate. If patient noted with a risk of falling, they received education on strength, gait, and balance training to prevent future risk of falling. Assessment and Plan Assessment and Plan (1) Lumbar spondylosis: (2) Lumbar stenosis with neurogenic claudication: Plan 83yom who presents for assessment. failed conservative measures, as noted. imaging reviewed, as noted. given symptoms and imaging, prudent to attempt bilateral l4-5 l5-s1 mbbx2 working towards RFA, to be completed under fluoroscopy risks vs benefits reviewed. he is in agreement. meds reviewed, no changes. follow up after procedure.
== END 2024-03-05 08:32 | disposition home or self-care (01) ==
LOC: PM 08:32
PROVIDERS: PCP Internal Medicine; Visit Provider Nurse Practitioner
DX: M47.816 Spondylosis without myelopathy or radiculopathy, lumbar region (principal); M48.062 Spinal stenosis, lumbar region with neurogenic claudication
CPT/HCPCS: G0463

== ENCOUNTER 2024-03-10 07:35 | Day surgery (SDC) | payer MEDICARE, OTHER, SELFPAY ==
--- OUTSIDE RECORDS SUMMARY | 2024-03-10 07:41 | XMS_ITS | CCD ---
Author Organization [facility] Care Team Providers Care Textile Conversion Manager Name Role Phone CECILIO BENJAMIN~[phone] UNKNOWN Unavailable Unavailable BETH GOODEN Unavailable Unavailable [...] II Attending UnavailJose Enrique Malin II Admitting Unavaillizzeth e Cecilio Benjamin DO Primary Care Provider DAVID JAEGER Admitting Unavailable DAVID JAEGER Attending Unavailable CECILIO BENJAMIN Primary Care Unavailable Griselda WHARTON, Maddie Carreno Attending Unavailable Griselda WHARTON, Maddie Carreno Attending Unavailable Griselda WHARTON, Maddie Carreno Attending Unavailable Allergies Allergy Classification Reported Allergen(s) Allergy Type Date of Onset Reaction(s) Facility (7 sources) bacitracin; Translations: [bacitracin] Drug Allergy 09-11-2013 Unknown [facility] Repository (19 sources) Albuterol Drug Allergy Unknown [employer] Other (20 sources) HMG-CoA reductase inhibitor Drug allergy Unknown [employer] Other Medications Current Medications Medication Drug Class(es) [...] uth every 8 hours. (Mild pain reliever) [id number] 200 actuat albuterol 0.09 mg/actuat metered dose [...] on above: Take 4 tablets by mo [facility] 1 hour prior to procedure [...] 11:06am Start: 07-10-2023 take 1 capsule by [facility] every twelve hours Doxycycline Hyclate 100 MG [...] sources) Other half-way (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 therapy; Translations: [OT DETENTION CURRENT DRUG THERAPY] Onset: 11-06-2022 Episodic Other [...] Test Name Value Interpretation Reference Range Facility [facility] 03-20-2023 [facility] Telephone (SPNMAV) RUPERTO THORPE ([id number]) 1940 [place] Date Time Provider Department 03/20/23 DAVID JAEGER During your visit today, we recorded the following information about you: Neida Porter MA 03/20/2023 12:30 PM Signed DATE OF SERVICE: 03/15/2023 PATIENT'S PHONE NUMBERS: [phone] (home) OR @Tengah@ PROVIDER: Dr. Jaeger PROCEDURE: Elective Pain Management [...] work Requesting to call his CELL ONLY [phone] what to do next Leave Detailed messages [...] of spine injection schedulers to call at [phone]. Patient will call if he wants to schedule another injection. 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 Author [...] offered a procedure / surgery at a [facility] facility. Patient and I have [...] surgery/procedure as indicated on the consent form. [facility] approved time out was performed identifying the site, side and level of procedure prior to start of procedure. [facility] SURGERY [facility]KINS - ELECTIVE PROCEDURE Lumbar Transforaminal Epidural Steroid [...] the entire procedure. David Jaeger DO, MBA [facility] 02-26-2023 CNPN Telephone (SPNMAV) RUPERTO THORPE ([id number]) 1940 [place] Date Time Provider Department 02/26/23 DAVID JAEGER SPJEREMYAV During your visit today, we recorded the following information about you: Linda Knox LPN 02/26/2023 4:49 PM Signed [facility] to pre procedure instructions. 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 Pt advised to arrive 30 min [...] take. Advised on location of ASC-[address] Pt will receive a follow up call several days after by a steamblaster. If you experience any increase in weakness, difficulty walking or significant increase in pain that last more than 4 hours, please proceed to the Emergency Room and tell them you had a spine procedure done recently. Additionally, call us and notify us of these symptoms. Please call [phone] if you have any questions. Pt verbalized [...] Status:Closed by LINDA KNOX LPN [facility] CNPN Telephone (SPNMAV) RUPERTO THORPE ([id number]) 1940 [place]* Date Time Provider Department 02/19/23 DAVID JAEGER SPNMAV During your visit today, we recorded the following information about you: Camilla Frost 02/19/2023 9:27 AM Signed Ruperto Thorpe daughter [...] call Celi as patient cannot hear well [phone] Patient has been identified by name and birthdate. Duration of symptoms: N/A Person calling: daughter: Celi Call patient at: N/A [phone] (home) [phone] (cell) Was an appointment scheduled: No Closing statement: Results or non-symptom based questions: Thank you for calling [facility], your call will be returned within the next business day. Camilla Jarrell [facility] Linda Knox LPN 02/19/2023 9:45 AM Signed Spine Intervention order formatted for review Linda Knox LPN 02/19/2023 11:59 AM Signed Order approved Spoke to daughter in reguards to pre procedure instructions. 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 Pt advised to arrive 30 min prior to the time given by the medical scheduler. Pt advised will also receive a call the day before from the surgery center to confirm date/time. Pt can eat and drink as normal. and Pt can take medications as normal. No alcohol 24 hours prior. Pt is on ASA.- 81 mg okay to take. and must Advised on location of ASC-[facility] Pt will receive a follow up call several days after by a steamblaster. If you experience any increase in weakness, difficulty walking or significant increase in pain that last more than 4 hours, please proceed to the Emergency Room and tell them you had a spine procedure done recently. Additionally, call us and notify us of these symptoms. Please call [phone] if you have any questions. Pt verbalized understanding. 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 Normal [facility] XR knee LT 4V*on 11-09-2022 XR knee LT 4V* [facility] Main [place] [address] [place] [address] XRay Report Signed Patient: Ruperto Thorpe MR#: [id number] 5 : 1940 Acct:[id number] Age/Sex: 82 / M ADM Date: 11/09/22 [place] [facility] [place]: Type: [facility] Attending Dr: Jose Enrique Leblanc II, [...] Darren Yuen M.D.11/09/2022 5:03 PM Dictation Location: [place] [address] Transcribed By: [facility] 11/09/22 170 Dictated By: Darren Yuen II, MD 11/09/221700 Signed By: 11/09/22 170 [facility] XR knee LT 4V* [facility] [employer] Other XR knee LT 4V* [facility] Main [facility] [employer] Other XR knee LT 4V* [address] [place] [address] [employer] Other XR knee LT 4V* [place] [address] No rt [employer] Other XR knee LT 4V* XRay Report [employer] Other XR knee LT 4V* Signed [employer] Other XR knee LT 4V* Patient: Ruperto Thorpe MR#: [id number] [place] [employer] Other XR knee LT 4V* 5 Guide Other XR knee LT 4V* : 1940 Acct:[id number] [employer] Other XR knee LT 4V* Age/Sex: 82 / M ADM Date: 11/09/22 [employer] Other XR knee LT 4V* Loc: [facility] Room: Type : [facility] [employer] Other XR knee LT 4V* Attending Dr: Jose Enrique Leblanc II, MD [employer] Other XR knee LT 4V* Copies to: Jose Enrique Leblanc MD [employer] Other XR knee LT 4V* Ordering Provider: Jose Enrique Leblacn MD [employer] Other XR knee LT 4V* Date of Service: 11/09/22 [employer] Other XR knee LT 4V* XR/XR knee LT 4V*: Acute pain of left knee [employer] Other XR knee LT 4V* XR knee LT 4V* 11/09/2022 3:15 PM [employer] Other XR knee LT 4V* SIGNS AND SYMPTOMS: Acute pain of left knee [employer] Other XR knee LT 4V* PROTOCOL: Frontal, lateral, oblique, and sunrise views of the left knee [employer] Other XR knee LT 4V* COMPARISON: 11/05/2022 [employer] Other XR knee LT 4V* FINDINGS: Guide Other XR knee LT 4V* There is similar narrowing of the weightbearing joint spaces with chondrocalcinosis of the menisci [employer] Other XR knee LT 4V* suggesting underlyin g CPPD. There is narrowing of the patellofemoral joint space with spurring at [employer] Other XR knee LT 4V* the superior pole of patella. There is a small joint effusion. No soft tissue swelling. No acute [employer] Other XR knee LT 4V* displaced fracture. Vascular calcifications are present posteriorly. [employer] Other XR knee LT 4V* XR/XR knee LT 4V* [employer] Other XR knee LT 4V* IMPRESSION: [employer] Other XR knee LT 4V* Tricompartmental degenerative changes are noted in the left knee with a small joint effusion. [employer] Other XR knee LT 4V* There is chondrocalcinosis of the menisci suggesting underlying CPPD. [employer] Other XR knee LT 4V* Impression dictated by: Darren Yuen M.D.11/09/2022 5:03 PM [employer] Other XR knee LT 4V* Dictation Location: [place] [address] [employer] Other XR knee LT 4V* Transcribed By: PWS 11/09/22 1703 [employer] Other XR knee LT 4V* Dictated By: Darren Yuen II, MD 11/09/221700 [employer] Other XR knee LT 4V* Signed By: Guide Other XR knee LT 4V* 11/09/22 1703 [employer] Other XR pelvis 1-2Von 11-09-2022 XR pelvis 1-2V [facility] Main [place] [address] [place] [address] XRay Report Signed Patient: Ruperto Thorpe MR#: [id number] 5 : 1940 Acct:[id number] Age/Sex: 82 / M ADM Date: 11/09/22 [place] [facility] [place]: Type: [facility] Attending Dr: Jose Enrique Leblanc II, [...] Darren Yuen M.D.11/09/2022 5:01 PM Dictation Location: [place] [address] Transcribed By: [facility] 11/09/221700 Dictated By: Darren Yuen II, MD 11/09/221699 Signed By: 11/09/221700 [facility] XR pelvis 1-2V XR/XR pelvis 1-2V: Acute pain of left knee [employer] Other XR pelvis 1-2V XR pelvis 1-2V 11/09/2022 3:15 PM [employer] Other XR pelvis 1-2V SIGNS AND SYMPTOMS: Left knee pain [employer] Other XR pelvis 1-2V PROTOCOL: Frontal radiograph of the chest [employer] Other XR pelvis 1-2V COMPARISON: None [facility] [employer] Other XR pelvis 1-2V There is mild narrowing of the left hip joint space with subcortical cystic change on both sides of [employer] Other XR pelvis 1-2V the joint along the acetabular there is chondrocalcinosis of the labrum overlying the superior [employer] Other XR pelvis 1-2V acetabular rim and superior lateral femoral head. The bony ring of the pelvis is intact. There is [employer] Other XR pelvis 1-2V total right hip arthroplasty. Degenerative changes are noted in the sacroiliac joints. No fracture [employer] Other XR pelvis 1-2V is [employer] Other XR pelvis 1-2V XR/XR pelvis 1-2V [employer] Other XR pelvis 1-2V Degenerative changes are noted in the left hip with findings suspicious for previous labral [employer] Other XR pelvis 1-2V pathology. [employer] Other XR pelvis 1-2V Postoperative change s are noted in the right hip with total right hip arthroplasty hardware. [employer] Other XR pelvis 1-2V Impression dictated by: Darren Yuen M.D.11/09/2022 5:01 PM [employer] Other XR pelvis 1-2V Transcribed By: COLIN 11/09/22 170 [employer] Other XR pelvis 1-2V Dictated By: Darren Yuen II, MD 11/09/22 [facility] [employer] Other XR pelvis 1-2V 11/09/22 [facility] [employer] Other XR KNEE LT 4V or >on [...] There is chondrocalcinosis. Soft tissues: Unremarkable. IMPRESSION: Zlol-rn-tsedsfeb osteoarthritis as described above. Chondrocalcinosis. No acute fracture or dislocation. Electronically authenticated by: CHUCK JONES Date: 2022-11-05 11:19 Normal [facility] US CAROTID ART BILon 023 US [...] JONAS MCLEOD Date: 2022-09-26 10:58 Normal [facility] CBC AUTO DIFFon 08-10-2022 BASO # 0.0 103/ul Normal 0.0-0.1 [facility] Comment on above: Performed By: #### C BC #### [facility] [address] [place] [address] Dr. Alexis Brink Basophils/100 WBC (Bld) 0.7 % Normal 0.2-2.0 [facility] Comment on above: Performed By: #### C BC #### [facility] [address] [place] [address] Dr. Alexis Brink EO # 0.3 103/ul Normal 0.0-0.7 [facility] Comment on above: Performed By: #### C BC #### [facility] [address] [place] [address] Dr. Alexis Brink Eosinophils/100 WBC (Bld) 6.1 % Normal 0.9-7.0 [facility] Comment on above: Performed By: #### C BC #### [facility] [address] [place] [address] Dr. Alexis Brink Erythrocyte distribution width (RBC) [Ratio] 12.1 % Normal 11.0-15.0 [facility] Comment on above: Performed By: #### C BC #### [facility] [address] [place] [address] Dr. Alexis Brink Hematocrit (Bld) [Volume fraction] 44.2 % Normal 42.0-54.0 [facility] Comment on above: Performed By: #### C BC #### [facility] [address] [place] [address] Dr. Alexis Brink Hemoglobin (Bld) [Mass/Vol] 14.9 g/dL Normal 14.0-18.0 [facility] Comment on above: Performed By: #### C BC #### [facility] [address] [place] [address] Dr. Alexis Brink IG # 0.01 10e3/ul Normal 0.00-0.03 [facility] Comment on above: Performed By: #### C BC #### [facility] [address] [place] [address] Dr. Alexis Brink IG % 0.2 % Normal 0.0-0.5 [facility] Comment on above: Performed By: #### C BC #### [facility] [address] [place] [address] Dr. Alexis Brink LYMPH # 1.2 103/ul Normal 1.2-3.8 [facility] Comment on above: Performed By: #### C BC #### [facility] [address] [place] [address] Dr. Alexis Brink Lymphocytes/100 WBC (Bld) 21.3 % Normal 20.5-60.0 [facility] Comment on above: Performed By: #### C BC #### [facility] [address] [place] [address] Dr. Alexis Brink MANUAL DIFF REQ NO Normal [facility] Comment on above: Performed By: #### C BC #### [facility] [address] [place] [address] Dr. Alexis Brink MCH (RBC) [Entitic mass] 30.7 pg Normal 25.9-34.0 [facility] Comment on above: Performed By: #### C BC #### [facility] [address] [place] [address] Dr. Alexis Brink MCHC (RBC) [Mass/Vol] 33.7 g/dL Normal 29.9-35.2 [facility] Comment on above: Performed By: #### C BC #### [facility] [address] [place] [address] Dr. Alexis Brink MCV (RBC) [Entitic vol] 91.1 fL Normal 80.0-94.0 [facility] Comment on above: Performed By: #### C BC #### [facility] [address] [place] [address] Dr. Alexis Brink MONO # 0.5 103/ul Normal 0.3-0.8 [facility] Comment on above: Performed By: #### C BC #### [facility] [address] [place] [address] Dr. Alexis Brink Monocytes/100 WBC (Bld) 8.5 % Normal 1.7-12.0 [facility] Comment on above: Performed By: #### C BC #### [facility] [address] [place] [address] Dr. Alexis Brink NEUT # 3.5 103/ul Normal 1.4-6.5 [facility] Comment on above: Performed By: #### C BC #### [facility] [address] [place] [address] Dr. Alexis Brink Neutrophils/100 WBC (Bld) 63.2 % Normal 43.0-75.0 [facility] Comment on above: Performed By: #### C BC #### [facility] [address] [place] [address] Dr. Alexis Brink Platelet mean volume (Bld) [Entitic vol] 10.0 fL Normal 9.5-13.5 [facility] Comment on above: Performed By: #### C BC #### [facility] [address] [place], [place] [address] Dr. Alexis Brink PLT 120 103/ul Critically low 150-450 [facility] Comment on above: Performed By: #### C BC #### [facility] [address] [place] [address] [address] Alexis Brink RBC 4.85 106/ul Normal 4.70-6.10 [facility] Comment on above: Performed By: #### C BC #### [facility] [address] [place] [id number] [address] Alexis Brink WBC 5.6 103/ul Normal 4.0-11.0 [facility] Comment on above: Performed By: #### C BC #### [facility] [address] [place] [id number] Alexis Brink Covid-19 PCR (CVDTB)on 07-21 SARS-CoV-2 (COVID-19) RNA RICKY+probe Ql (Unsp spec) Not detected Normal NOT DETECTED [facility] Comment on above: Result Comment: This test is not yet approved or cleared by the [place] FDA. When there are no FDA-approved or cleared tests available, and other criteria are met, FDA can make tests available under an emergency access mechanism called an Emergency Use Authorization (EUA). The EUA for this test is supported by the Educational Advisor of Health and Human Service's (HHS's) declaration [...] with SARS-CoV-2. Performed By: #### C VDTBH ####[facility] [address] [place], [place] [address]HkDr. Alexis Brink INFLUENZA A AND B AGon 08-10 INFLUANEGH SEE BELOW Normal [facility] Comment on above: Result Comment: Nega tive for Flu A protein angiten. Infection due to Flu A cannot be ruled out. Flu A angiten in the sample may be below the detection limit of the test. Performed By: #### I NFLUAB ####[facility] [address] [place] [address]Dr. Alexis Brink INFLUBNEGH SEE BELOW Normal [facility] Comment on above: Result Comment: Nega tive for Flu B protein antigen. Infection due to Flu B cannot be ruled out. Flu B antigen in the sample may be below the detection limit of the test. Performed By: #### I NFLUAB ####[facility] [address] [place] [address]Dr. Alexis Brink INFLUENZA A AG Negative Normal NEGATIVE SEE COMMENT [facility] Comment on above: Performed By: #### I NFLUAB ####[facility] [address] [place] [address]Dr. Alexis Brink INFLUENZA B AG Negative Normal NEGATIVE SEE COMMENT [facility] Comment on above: Performed By: #### I NFLUAB ####[facility] [address] [place] [address]DrLainey Brink INTERNAL CONTROLS Within Normal Limits Normal Wi thin Normal Limits [facility] Comment on above: Performed By: #### I NFLUAB ####[facility] [address] [place] [address]DrLainey Brink PROF CHEM 8 (BAS METB)on Anion gap [Moles/Vol] 11.4 mmol/L Normal [facility] Comment on above: Performed By: #### B NARA, HSTROPN #### [facility] [address] [place] [address] [address] Alexis Brink Calcium [Mass/Vol] 8.9 mg/dL Normal 8.5-10.1 [facility] Comment on above: Performed By: #### B MP, HSTROPN #### [facility] [address] [place] [address] [address] Alexis Brink Chloride [Moles/Vol] 102 mmol/L Normal 98-107 [facility] Comment on above: Performed By: #### B NARA, HSTROPN #### [facility] [address] [place] [address] [address] Alexis Brink CO2 [Moles/Vol] 28.8 mmol/L Normal 21.0-32.0 [facility] Comment on above: Performed By: #### B NARA, HSTROPN #### [facility] [address] [place] [address] [address] Alexis Brink Creatinine [Mass/Vol] 1.35 mg/dL Critically high 0.70-1.30 [facility] Comment on above: Performed By: #### B NARA, HSTROPN #### [facility] [address] [place] [address] Dr. Alexis Brink EGFR-AF TUNISIAN >60 Normal >=60 [facility] Comment on above: Performed By: #### B NARA, HSTROPN #### [facility] [address] [place] [address] Dr. Alexis Brink EGFR-NON AF TUNISIAN 51 mL/min/1.73m2 Critically low >=60 [facility] Comment on above: Performed By: #### B NARA, HSTROPN #### [facility] [address] [place] [address] Dr. Alexis Brink Glucose [Mass/Vol] 109 mg/dL Critically high 74-106 [facility] Comment on above: Performed By: #### B NARA, HSTROPN #### [facility] [address] [place] [address] [address] Alexis Brink Potassium [Moles/Vol] 4.2 mmol/L Normal 3.5-5.1 [facility] Comment on above: Performed By: #### B NARA, HSTROPN #### [facility] [address] [place] [address] [address] Alexis Brink Sodium [Moles/Vol] 138 mmol/L Normal 136-145 [facility] Comment on above: Performed By: #### B NARA, HSTROPN #### [facility] [address] [place] [address] Dr. Alexis Brink Urea nitrogen [Mass/Vol] 18.0 mg/dL Normal 7.0-18.0 [facility] Comment on above: Performed By: #### B NARA, HSTROPN #### [facility] [address] [place] [address] [address] Alexis Brink Urea nitrogen/Creatinin e [Mass ratio] 13.3 mg/mg Normal [facility] Comment on above: Performed By: #### B NARA, HSTROPN #### [facility] [address] [place] [address] [address] Alexis Brink TROPONIN, HIGH SENSITIVITYon 08-10-2022 HSTROP 22.2 pg/mL Normal 4.0-76.1 [facility] Comment on above: Result Comment: CUT- OFF POINTS HAVE BEEN ESTABLISHED BASED ON THE FOURTH UNIVERSAL DEFINITIONS OF MYOCARDIAL INFARCTION. THE UPPER REFERENCE LIMIT (URL) OF TROPONIN, DEFINED THE 99TH PERCENTILE OF cTnI DISTRIBUTION IN A REFERENCE POPULATION, HAS BEEN CONFIRMED THE DECISION THRESHOLD FOR VA DIAGNOSIS. Performed By: #### B NARA, HSTROPN #### [facility] [address] [place] [address] Dr. Alexis Brink XR CHEST 1 Von [...] RADHA UNDERWOOD Date: 2022-08-10 16:07 Normal [facility] CBC AUTO DIFFon 02-09-2022 BASO # 0.0 103/ul Normal 0.0-0.1 [facility] Comment on above: Performed By: #### C BC #### [facility] [address] [place] [address] Dr. Alexis Brink Basophils/100 WBC (Bld) 0.6 % Normal 0.2-2.0 [facility] Comment on above: Performed By: #### C BC #### [facility] [address] [place] [address] Dr. Alexis Brink EO # 0.5 103/ul Normal 0.0-0.7 [facility] Comment on above: Performed By: #### C BC #### [facility] [address] [place] [address] Dr. Alexis Brink Eosinophils/100 WBC (Bld) 7.2 % Critically high 0.9-7.0 [facility] Comment on above: Performed By: #### C BC #### [facility] [address] [place] [address] Dr. Alexis Brink Erythrocyte distribution width (RBC) [Ratio] 12.4 % Normal 11.0-15.0 [facility] Comment on above: Performed By: #### C BC #### [facility] [address] [place] [address] Dr. Alexis Brink Hematocrit (Bld) [Volume fraction] 45.5 % Normal 42.0-54.0 [facility] Comment on above: Performed By: #### C BC #### [facility] [address] [place] [address] Dr. Alexis Brink Hemoglobin (Bld) [Mass/Vol] 15.4 g/dL Normal 14.0-18.0 [facility] Comment on above: Performed By: #### C BC #### [facility] [address] [place] [address] Dr. Alexis Brink IG # 0.02 10e3/ul Normal 0.00-0.03 [facility] Comment on above: Performed By: #### C BC #### [facility] Laboratory [address] [place] [address] Dr. Alexis Brink IG % 0.3 % Normal 0.0-0.5 [facility] Comment on above: Performed By: #### C BC #### [facility] [address] [place] [address] Dr. Alexis Brink LYMPH # 1.3 103/ul Normal 1.2-3.8 [facility] Comment on above: Performed By: #### C BC #### [facility] [address] [place] [address] Dr. Alexis Brink Lymphocytes/100 WBC (Bld) 17.8 % Critically low 20.5-60.0 [facility] Comment on above: Performed By: #### C BC #### [facility] [address] [place] [address] Dr. Alexis Brink MANUAL DIFF REQ NO Normal [facility] Comment on above: Performed By: #### C BC #### [facility] [address] [place] [address] Dr. Alexis Brink MCH (RBC) [Entitic mass] 31.4 pg Normal 25.9-34.0 [facility] Comment on above: Performed By: #### C BC #### [facility] [address] [place] [address] Dr. Alexis Brink MCHC (RBC) [Mass/Vol] 33.8 g/dL Normal 29.9-35.2 [facility] Comment on above: Performed By: #### C BC #### [facility] [address] [place] [address] Dr. Alexis Brink MCV (RBC) [Entitic vol] 92.9 fL Normal 80.0-94.0 [facility] Comment on above: Performed By: #### C BC #### [facility] [address] [place] [address] Dr. Alexis Brink MONO # 0.7 103/ul Normal 0.3-0.8 [facility] Comment on above: Performed By: #### C BC #### [facility] [address] [place] [address] Dr. Alexis Brink Monocytes/100 WBC (Bld) 9.6 % Normal 1.7-12.0 [facility] Comment on above: Performed By: #### C BC #### [facility] [address] [place] [address] Dr. Alexis Brink NEUT # 4.6 103/ul Normal 1.4-6.5 [facility] Comment on above: Performed By: #### C BC #### [facility] [address] [address] [address] Alexis Brink Neutrophils/100 WBC (Bld) 64.5 % Normal 43.0-75.0 [facility] Comment on above: Performed By: #### C BC #### [facility] [address] [address] [address] Alexis Brink Platelet mean volume (Bld) [Entitic vol] 10.7 fL Normal 9.5-13.5 [facility] Comment on above: Performed By: #### C BC #### [facility] [address] [address] [address] Alexis Brink PLT 130 103/ul Critically low 150-450 [facility] Comment on above: Performed By: #### C BC #### [facility] [address] [address] [address] Alexis Brink RBC 4.90 106/ul Normal 4.70-6.10 [facility] Comment on above: Performed By: #### C BC #### [facility] [address] [address] [address] Alexis Brink WBC 7.1 103/ul Normal 4.0-11.0 [facility] Comment on above: Performed By: #### C BC #### [facility] [id number] Alexis Brink DIRECT LDLon 02-09-2022 Cholesterol in LDL [Mass/Vol] 144 mg/dL Normal [facility] Comment on above: Performed By: #### D LDL, BMP ####[facility] [address] [id number]. Alexis Brink DLDL NORMAL SEE BELOW Normal [facility] Comment on above: Result Comment: <100 mg/dl OPTIMAL 100 - 129 mg/dl NEAR OR ABOVE OPTIMAL 130 - 159 mg/dl BORDERLINE HIGH 160 - 189 mg/dl HIGH >190 mg/dl VERY HIGH Performed By: #### D LDL, BMP ####[facility] [address] [place], [place] [address]XqDr. Alexis Brink PROF CHEM 8 (BAS METB)on Anion gap [Moles/Vol] 9.3 mmol/L Normal [facility] Comment on above: Performed By: #### D LDL, BMP #### [facility] [address] [address] [address] Alexis Brink Calcium [Mass/Vol] 8.7 mg/dL Normal 8.5-10.1 [facility] Comment on above: Performed By: #### D LDL, BMP #### [facility] [address] [address] [address] Alexis Brink Chloride [Moles/Vol] 103 mmol/L Normal 98-107 [facility] Comment on above: Performed By: #### D LDL, BMP #### [facility] [address] [address] [address] Alexis Brink CO2 [Moles/Vol] 32.1 mmol/L Critically high 21.0-32.0 [facility] Comment on above: Performed By: #### D LDL, BMP #### [facility] [address] [address] [address] Alexis Brink Creatinine [Mass/Vol] 1.35 mg/dL Critically high 0.70-1.30 [facility] Comment on above: Performed By: #### D LDL, BMP #### [facility] [address] [address] [address] Alexis Brink EGFR-AF TUNISIAN >60 Normal >=60 [facility] Comment on above: Performed By: #### D LDL, BMP #### [facility] [address] [address] [address] Alexis Brink EGFR-NON AF TUNISIAN 51 mL/min/1.73m2 Critically low >=60 [facility] Comment on above: Performed By: #### D LDL, BMP #### [facility] [address] [address] [address] Alexis Brink Glucose [Mass/Vol] 90 mg/dL Normal 74-106 [facility] Comment on above: Performed By: #### D LDL, BMP #### [facility] [address] [place] [address] Dr. Alexis Brink Potassium [Moles/Vol] 4.4 mmol/L Normal 3.5-5.1 [facility] Comment on above: Performed By: #### D LDL, BMP #### [facility] [address] [place] [address] Dr. Alexis Brink Sodium [Moles/Vol] 140 mmol/L Normal 136-145 [facility] Comment on above: Performed By: #### D LDL, BMP #### [facility] [address] [place] [address] Dr. Alexis Brink Urea nitrogen [Mass/Vol] 16.0 mg/dL Normal 7.0-18.0 [facility] Comment on above: Performed By: #### D LDL, BMP #### [facility] [address] [place] [address] Dr. Alexis Brink Urea nitrogen/Creatinin e [Mass ratio] 11.9 mg/mg Normal [facility] Comment on above: Performed By: #### D LDL, BMP #### [facility] [address] [place] [address] Dr. Alexis Brink UA RANDOMon 02-09-2022 Bilirubin Ql (U) Negative Normal NEGATIVE [facility] Comment on above: Performed By: #### U A #### [facility] [address] [place] [address] Dr. Alexis Brink Clarity (U) CLEAR Normal CLEAR [facility] Comment on above: Performed By: #### U A #### [facility] [address] [place] [address] Dr. Alexis Brink Color (U) YELLOW Normal YELLOW [facility] Comment on above: Performed By: #### U A #### [facility] [address] [place] [address] Dr. Alexis Brink Glucose Ql (U) Negative Normal NEGATIVE [facility] Comment on above: Performed By: #### U A #### [facility] [address] [place] [address] Dr. Alexis Brink Hemoglobin Ql (U) Negative Normal NEGATIVE [facility] Comment on above: Performed By: #### U A #### [facility] [address] [place] [address] Dr. Alexis Brink Ketones Ql (U) Negative Normal NEGATIVE [facility] Comment on above: Performed By: #### U A #### [facility] [address] [place] [address] Dr. Alexis Brink LEUKOCYTES Negative Normal NEGATIVE [facility] Comment on above: Performed By: #### U A #### [facility] [address] [place] [address] Dr. Alexis Brink Nitrite Ql (U) Negative Normal NEGATIVE [facility] Comment on above: Performed By: #### U A #### [facility] [address] [place] [address] Dr. Alexis Brink pH (U) 7.0 [pH] Normal 5-9 [facility] Comment on above: Performed By: #### U A #### [facility] [address] [place] [address] Dr. Alexis Brink SPEC GRAVITY 1.015 Normal 1.005-<=1.025 [facility] Comment on above: Performed By: #### U A #### [facility] [address] [place] [address] Dr. Alexis Brink UA PROTEIN Negative Normal NEGATIVE/ TRACE [facility] Comment on above: Performed By: #### U A #### [facility] [address] [place] [address] Dr. Alexis Brink Urobilinogen Qn (U) 1.0 {Kay'U}/dL Normal 0.2 - 1.0 [facility] Comment on above: Performed By: #### U A #### [facility] [address] [place] [address] Dr. Alexis Brink XR CHEST 2 Von [...] by: LYDIA HAWLEY Date: 2021-12-06 15:42 Normal [facility] Nonvisit Note - PTon 018 Nonvisit Note - PT Cert letter refaxed for signature this date - third and final attempt. Normal [facility] Nonvisit Note - PTon 018 Nonvisit Note - PT Cert letter refaxed to Dr Gooden's office. Second attempt. Normal [facility] Coding Summary.on 01-25-2018 Coding Summary. CODING DATE: 01/25/2018 [facility] STATUS: PAYOR: Medicare ADMIT DX: REASON FOR [...] Dominique Pendleton Date Saved: 01/25/2018 10:54 am [facility] Coding Summary. CODING DATE: 01/25/2018 [facility] STATUS: PAYOR: Medicare ADMIT DX: REASON FOR [...] Dominique Pendleton Date Saved: 01/25/2018 10:54 am [facility] SURGICAL PATHOLOGYon 018 SURGICAL PATHOLOGY [facility]: [id number] Physician: BETH GOODEN MD FINAL DIAGNOSISRight hip, [...] to 8.5 x 8.5 x 1.8 cm. [employer] Worker sectionsare submitted as follows: A1 soft tissue, A2 bone submitted afterdecalcification.B Юлия/lachelle 01/01/2018 Gross examination performed at [facility], [address] [place], [place] [address] [id number] of Report: 01/07/2018Date of Procedure: 01/01/2018Date of Receipt: 01/01/2018Submitted by: BETH GOODEN MDLocation: [id number] interpretation performed at [facility], [facility] [address]. Normal [facility] Comment on above: Performed By: #### S ####See report for performing lab information. Vital Signs Date Time Vital Sign Value Performing Clinician Facility 01-22-2024 09:16-0400 Body height 167.64 cm [facility] 01-22-2024 09:16-0400 Body mass index (BMI) [Ratio] 29.3 kg/m2 [facility] 01-22-2024 09:160400 Body weight 82.55 kg [facility] 01-22-2024 09:16-0400 Diastolic blood pressure 72 mm[Hg] [facility] 01-22-2024 09:16-0400 Heart rate 64 /min [facility] 01-22-2024 09:16-0400 Respiratory rate 20 /min [facility] 01-22-2024 09:16-0400 Systolic blood pressure 131 mm[Hg] [facility] 09-28-2023 11:00-0500 Body height 167.64 cm Cecilio Ball Other Loc[facility] [employer] Other 09-28-2023 11:00-0500 Body mass index (BMI) [Ratio] 30.24 kg/m2 Cecilio Ball Other [facility] [employer] Other 09-28-2023 11:00-0500 Body weight 85 kg Cecilio Ball Other [facility] [employer] Other 09-28-2023 11:00-0500 Respiratory rate 20 /min Cecilio Ball Other [facility] [employer] Other 09-28-2023 11:00-0500 SaO2% (BldA) [Mass fraction] 97 % Cecilio Ball Other [facility] [employer] Other 09-11-2023 10:45-0500 Body height 167.64 cm Cecilio Ball Other [facility] [employer] Other 09-11-2023 10:45-0500 Body mass index (BMI) [Ratio] 29.86 kg/m2 Cecilio Ball Other [employer] Other 09-11-2023 10:45-0500 Body temperature 97.5 [degF] Cecilio Ball Other [employer] Other 09-11-2023 10:45-0500 Body weight 83.92 kg Cecilio Ball Other [employer] Other 09-11-2023 10:45-0500 Diastolic blood pressure 81 mm[Hg] Cecilio Ball Other [employer] Other 09-11-2023 10:45-0500 Respiratory rate 20 /min Cecilio Ball Other [employer] Other 09-11-2023 10:45-0500 SaO2% (BldA) [Mass fraction] 98 % Cecilio Ball Other [employer] Other 09-11-2023 10:45-0500 Systolic blood pressure 161 mm[Hg] Cecilio Ball Other [employer] Other 08-01-2023 10:15-0500 Body height 167.64 cm Cecilio Ball Other [employer] Other 08-01-2023 10:15-0500 Body mass index (BMI) [Ratio] 29.86 kg/m2 Cecilio Ball Other [employer] Other 08-01-2023 10:15-0500 Body weight 83.92 kg Cecilio Ball Other [employer] Other 08-01-2023 10:15-0500 Diastolic blood pressure 79 mm[Hg] Cecilio Ball Other [employer] Other 08-01-2023 10:15-0500 Respiratory rate 20 /min Cecilio Ball Other [employer] Other 08-01-2023 10:15-0500 Systolic blood pressure 172 mm[Hg] Cecilio Ball Other [employer] Other 07-17-2023 10:15-0500 Body height 167.64 cm Cecilio Ball Other [employer] Other 07-17-2023 10:15-0500 Body mass index (BMI) [Ratio] 29.89 kg/m2 Cecilio Ball Other [employer] Other 07-17-2023 10:15-0500 Body weight 84.01 kg Cecilio Ball Other [employer] Other 07-17-2023 10:15-0500 Diastolic blood pressure 78 mm[Hg] Cecilio Ball Other [employer] Other 07-17-2023 10:15-0500 Respiratory rate 20 /min Cecilio Ball Other [employer] Other 07-17-2023 10:15-0500 Systolic blood pressure 172 mm[Hg] Cecilio Ball Other [employer] Other 07-10-2023 14:45-0500 Body height 167.64 cm Cecilio Ball Other [employer] Other 07-10-2023 14:45-0500 Body mass index (BMI) [Ratio] 29.47 kg/m2 Cecilio Ball Other [employer] Other 07-10-2023 14:45-0500 Body weight 82.83 kg Cecilio Ball Other [employer] Other 07-10-2023 14:45-0500 Diastolic blood pressure 80 mm[Hg] Cecilio Ball Other [employer] Other 07-10-2023 14:45-0500 Respiratory rate 20 /min Cecilio Ball Other [employer] Other 07-10-2023 14:45-0500 Systolic blood pressure 150 mm[Hg] Cecilio Ball Other [employer] Other 06-20-2023 08:30-0400 Body height 167.64 cm Cecilio Ball Other [employer] Other 06-20-2023 08:30-0400 Body mass index (BMI) [Ratio] 29.6 kg/m2 Cecilio Ball Other [employer] Other 06-20-2023 08:30-0400 Body weight 83.19 kg Cecilio Ball Other [employer] Other 06-20-2023 08:30-0400 Diastolic blood pressure 76 mm[Hg] Cecilio Ball Other [employer] Other 06-20-2023 08:30-0400 Respiratory rate 20 /min Cecilio Ball Other [employer] Other 06-20-2023 08:30-0400 Systolic blood pressure 157 mm[Hg] Cecilio Ball Other [employer] Other 05-30-2023 13:45-0400 Body height 167.64 cm Cecilio Ball Other [employer] Other 05-30-2023 13:45-0400 Body mass index (BMI) [Ratio] 28.95 kg/m2 Cecilio Ball Other [employer] Other 05-30-2023 13:45-0400 Body weight 81.38 kg Cecilio Ball Other [employer] Other 05-30-2023 13:45-0400 Diastolic blood pressure 78 mm[Hg] Cecilio Ball Other [employer] Other 05-30-2023 13:45-0400 Respiratory rate 16 /min Cecilio Ball Other [employer] Other 05-30-2023 13:45-0400 Systolic blood pressure 158 mm[Hg] Cecilio Ball Other [employer] Other 02-14-2023 08:30-0400 Body height 167.64 cm Cecilio Ball Other [employer] Other 02-14-2023 08:30-0400 Body mass index (BMI) [Ratio] 28.57 kg/m2 Cecilio Ball Other [employer] Other 02-14-2023 08:30-0400 Body weight 80.29 kg Cecilio Ball Other [employer] Other 02-14-2023 08:30-0400 Diastolic blood pressure 80 mm[Hg] Cecilio Ball Other [employer] Other 02-14-2023 08:30-0400 Respiratory rate 16 /min Cecilio Ball Other [employer] Other 02-14-2023 08:30-0400 Systolic blood pressure 135 mm[Hg] Cecilio Ball Other [employer] Other 02-01-2023 08:15-0400 Body height 167.64 cm Jose Enrique Leblanc II Other [employer] Other 02-01-2023 08:15-0400 Body mass index (BMI) [Ratio] 27.44 kg/m2 Jose Enrique [place]isle II Other [employer] Other 02-01-2023 08:15-0400 Body weight 77.11 kg Jose Enrique [place] II Other [employer] Other 12-11-2022 10:30-0400 Body height 167.64 cm Cecilio Ball Other [employer] Other 12-11-2022 10:30-0400 Body mass index (BMI) [Ratio] 28.66 kg/m2 Cecilio Ball Other [employer] Other 12-11-2022 10:30-0400 Body weight 80.56 kg Cecilio Ball Other [employer] Other 12-11-2022 10:30-0400 Diastolic blood pressure 76 mm[Hg] Cecilio Ball Other [employer] Other 12-11-2022 10:30-0400 Respiratory rate 12 /min Cecilio Ball Other [employer] Other 12-11-2022 10:30-0400 Systolic blood pressure 151 mm[Hg] Cecilio Ball Other [employer] Other 11-09-2022 16:00-0400 Body mass index (BMI) [Ratio] 29.21 kg/m2 Jose Enrique Landersisle II Other [employer] Other 11-09-2022 16:00-0400 Body weight 82.1 kg Jose Enrique Benji II Other [employer] Other 11-09-2022 10:30-0400 Body height 167.64 cm Cecilio Ball Other [employer] Other 11-09-2022 10:30-0400 Body mass index (BMI) [Ratio] 29.23 kg/m2 Cecilio Ball Other [employer] Other 11-09-2022 10:30-0400 Body weight 82.15 kg Cecilio Ball Other [employer] Other 11-09-2022 10:30-0400 Diastolic blood pressure 79 mm[Hg] Cecilio Ball Other [employer] Other 11-09-2022 10:30-0400 Respiratory rate 20 /min Cecilio Ball Other [employer] Other 11-09-2022 10:30-0400 Systolic blood pressure 152 mm[Hg] Cecilio Ball Other [employer] Other 10-12-2022 10:00-0500 Body height 167.64 cm Cecilio Ball Other [employer] Other 10-12-2022 10:00-0500 Body mass index (BMI) [Ratio] 29.24 kg/m2 Cecilio Ball Other [employer] Other 10-12-2022 10:00-0500 Body weight 82.19 kg Cecilio Ball Other [employer] Other 10-12-2022 10:00-0500 Diastolic blood pressure 70 mm[Hg] Cecilio Ball Other [employer] Other 10-12-2022 10:00-0500 Respiratory rate 12 /min Cecilio Ball Other [employer] Other 10-12-2022 10:00-0500 Systolic blood pressure 102 mm[Hg] Cecilio Benjamin Other [employer] Other Encounters Encounter Date Encounter Type Care Provider Facility Start: 02-25-2024 End: 02-25-2024 ambulatory Maddie Villalobos MD Facility:[facility] Start: 02-11-2024 End: 02-11-2024 ambulatory Maddie Villalobos MD Facility:[facility] Start: 01-28-2024 End: 01-28-2024 ambulatory Maddie Villalobos MD Facility:[facility] Start: 01-22-2024 End: 01-22-2024 ambulatory [facility] Work Phone: Start: 01-22-2024 End: 01-22-2024 Patient encounter procedure [facility] Work Phone: Start: 10-30-2023 Non-patient / [facility]-visit [facility] Work Phone: Start: 09-28-2023 End: 09-28-2023 ambulatory Cecilio Benjamin Other [employer] Other Start: 09-28-2023 Office outpatient vi sit 15 minutes Cecilio Benjamin [facility] Start: 09-28-2023 Telephone encounter Cecilio DENISE [facility] Start: 09-21-2023 End: 09-21-2023 ambulatory Cecilio Benjamin Other [employer] Other Start: 09-21-2023 Telephone encounter Cecilio DENISE [facility] Start: 09-11-2023 End: 09-11-2023 ambulatory Cecilio Benjamin Other [employer] Other Start: 09-11-2023 Office outpatient vi sit 15 minutes Cecilio Benjamin [facility] Start: 09-11-2023 Telephone encounter Cecilio DENISE [facility] Start: 09-03-2023 End: 09-03-2023 ambulatory Cecilio Ball Other [employer] Other Start: 09-03-2023 Telephone encounter Cecilio Ball [facility] Start: 08-03-2023 End: 08-03-2023 ambulatory Cecilio Ball Other [employer] Other Start: 08-03-2023 Telephone encounter Cecilio Ball [facility] Start: 08-01-2023 End: 08-01-2023 ambulatory Cecilio Ball Other [employer] Other Start: 08-01-2023 Office outpatient vi sit 15 minutes Cecilio Ball [facility] Start: 07-17-2023 End: 07-17-2023 ambulatory Cecilio Ball Other [employer] Other Start: 07-17-2023 Office outpatient vi sit 15 minutes Cecilio Ball [facility] Start: 07-10-2023 End: 07-10-2023 ambulatory Cecilio Ball Other [employer] Other Start: 07-10-2023 Office outpatient vi sit 15 minutes Cecilio Ball [facility] Start: 06-20-2023 End: 06-20-2023 ambulatory Cecilio Ball Other [employer] Other Start: 06-20-2023 Office outpatient vi sit 25 minutes Cecilio Ball [facility] Start: 06-15-2023 End: 06-15-2023 ambulatory Cecilio Ball Other [employer] Other Start: 06-15-2023 Telephone encounter Cecilio Ball [facility] Start: 05-30-2023 End: 05-30-2023 ambulatory Cecilio Ball Other [employer] Other Start: 05-30-2023 Office outpatient vi sit 15 minutes Cecilio Ball [facility] Start: 03-20-2023 Telephone encounter David Jaeger DO Work Phone: [facility] Comment on above: Follow Up Phone Call Start: 03-15-2023 End: 03-15-2023 ambulatory DAVID JAEGER Facility:[facility] Start: 02-27-2023 Orders Only David Marcos DO Work Phone: Procedures Comment on above: Pseudoclaudication s yndrome (Primary Dx); Lumbar radiculopathy Start: 02-26-2023 Telephone encounter David Jaeger DO Work Phone: [facility] Comment on above: Procedure Start: 02-19-2023 Telephone encounter David Sis Faheem DO Work Phone: [facility] Comment on above: Appointment Start: 02-14-2023 End: 02-14-2023 ambulatory Cecilio Benjamin Other [employer] Other Start: 02-14-2023 Patient encounter procedure Cecilio Benjamin [facility] Start: 02-13-2023 End: 02-13-2023 ambulatory Cecilio Benjamin Other [employer] Other Start: 02-13-2023 Telephone encounter Cecilio DENISE [facility] Start: 02-08-2023 End: 02-08-2023 ambulatory Cecilio Benjamin Other [employer] Other Start: 02-08-2023 Telephone encounter Cecilio DENISE [facility] Start: 02-01-2023 End: 02-01-2023 ambulatory Jose Enrique Leblanc II Other [employer] Other Start: 02-01-2023 Office outpatient vi sit 25 minutes Jose Enrique Leblanc II [facility] Start: 12-11-2022 End: 12-11-2022 ambulatory Cecilio Benjamin Other [employer] Other Start: 12-11-2022 Office outpatient vi sit 15 minutes Cecilio Benjamin [facility] Start: 11-09-2022 End: 11-09-2022 ambulatory Jose Enrique Leblanc II Facility:[facility] Start: 11-09-2022 End: 11-09-2022 Patient encounter procedure MD Jose Enrique Leblanc II Work Phone: [facility] Start: 11-09-2022 End: 11-09-2022 ambulatory MD Jose Enrique Leblanc II Work Phone: [facility] Work Phone: Start: 11-09-2022 Office outpatient ne w 45 minutes Jose Enrique Leblanc II [facility] Start: 11-09-2022 Office outpatient vi sit 15 minutes Cecilio Benjamin [facility] Start: 11-05-2022 End: 11-05-[address] CECILIO BENJAMIN Facility:[facility] Start: 10-12-2022 End: 10-12-2022 ambulatory Cecilio Benjamin Other [employer] Other Start: 10-12-2022 Office outpatient vi sit 25 minutes Cecilio Benjamin [facility] Start: 09-27-2022 End: 09-27-2022 ambulatory Cecilio Benjamin Other [employer] Other Start: 09-27-2022 Telephone encounter Cecilio DENISE [facility] Start: 09-26-2022 End: 09-27-[address] CECILIO BENJAMIN Facility:[facility] Start: 08-25-2022 End: 08-25-2022 ambulatory Cecilio Benjamin Other [employer] Other Start: 08-25-2022 Telephone encounter Cecilio DENISE [facility] Start: 08-10-2022 End: 08-10-[address] CECILIO BENJAMIN Facility:[facility] Start: 02-09-2022 End: 02-10-[address] CECILIO BENJAMIN Facility:[facility] Start: 12-06-2021 End: 12-07-[address] CECILIO BENJAMIN Facility:[facility] Start: 01-22-2018 End: 04-20-2018 Patient encounter [id number] AUGUSTINE BENJAMIN Facility:[facility] Procedures Date Procedure Procedure Detail Performing Clinician Start: 11-09-2022 Pelvis X-ray MD Jose Enrique Leblanc II Work Phone: Start: 11-09-2022 Radiologic examinati on of knee MD Jose Enrique Leblanc II Work Phone: Plan of Treatment Date Care Activity Detail Author Start: 01-22-2024 Patient referral [facility] Work Phone: Start: 04-20-2023 Influenza vaccination INFLUENZA (#1) [facility] Start: 10-01-2022 COVID-19 VACCINE (5 - Moderna series) COVID-19 VACCINE (5 - Moderna series) [facility] Start: 08-20-2022 ADVANCE DIRECTIVE DISCUSSION ADVANCE DIRECTIVE DISCUSSION [facility] Start: 08-20-2022 DEPRESSION ASSESSMENT DEPRESSION ASS ESSMENT [facility] Start: 09-19-2021 COVID-19 VACCINE (4 - Booster for Moderna series) COVID-19 VACCINE (4 - Booster for Moderna series) [facility] Start: 09-19-2021 COVID-19 VACCINE (4 - Moderna series) COVID-19 VACCINE (4 - Moderna series) [facility] Start: 01-02-2021 DIABETES SCREEN DIABETES SCREEN [facility] Start: 1991 SHINGRIX VACCINE (1 of 2) SHINGRIX VACCINE (1 of 2) [facility] Start: 1960 Urine microalbumin profile DTAP,TDAP,TD (1 - Tdap) [facility] Start: 1959 SPIROMETRY SPIROMETRY [facility] Start: 1947 PNEUMOCOCCAL: 65+ (1 - PCV) PNEUMOCOCCAL: 65+ (1 - PCV) [facility] Comprehensive metabo lic 2000 panel - Serum or Plasma [facility] Patient referral [facility] Work Phone: SPINE INTERVENTION PROCEDURE SPINE INTERVENTION PROCEDURE Procedures Routine Spinal stenosis, lumbar region with neurogenic claudication Lumbar radiculopathy, chronic Ordered: 02/19/2023 [facility] Work Phone: Comment on above: Ordered: 02/19/2023 [facility] Immunizations Immunization Date Immunization Notes Care Provider Fa cility 05-30-2023 COVID-19 Vaccine Moderna - Documentation Purposes Only Cecilio Sourav Other [facility] 05-30-2023 influenza virus vaccine, unspecified formulation [facility] 05-30-2023 influenza, high dose seasonal, preservative-free Cecilio Benjamin Other Located [facility] [employer] Other 06-13-2022 influenza virus vaccine, split virus (incl. purified surface antigen) Cecilio Benjamin Other [facility] [employer] Other 06-13-2022 influenza virus vaccine, unspecified formulation [facility] 06-13-2022 influenza, high dose seasonal, preservative-free Jose Enrique Princeville II Other [facility] [employer] Other 05-31-2022 COVID-19 Pfizer (bivalent) Jose Enrique Princeville II Other [facility] 05-31-2022 COVID-19 Pfizer (Pediatric) Cecilio Benjamin Other [facility] 07-25-2021 COVID-19 Vaccine Moderna - Documentation Purposes Only Jose Enrique Princeville II Other [facility] 05-03-2021 zoster vaccine recombinant Jose Enrique Princeville II Other [facility] 05-03-2021 zoster vaccine, live Benjami n Ball Other [facility] 01-28-2021 zoster vaccine recombinant Jose Enrique Benij II Other [facility] 01-28-2021 zoster vaccine, live Benjami n Ball Other [facility] 10-25-2020 COVID-19 Vaccine Moderna - Documentation Purposes Only Jose Enrique Princeville II Other [facility] 09-27-2020 COVID-19 Vaccine Moderna - Documentation Purposes Only Jose Enrique Benji II Other [facility] 05-24-2020 influenza virus vaccine, split virus (incl. purified surface antigen) Cecilio Benjamin Other [facility] [employer] Other 05-24-2020 influenza virus vaccine, unspecified formulation [facility] 01-03-2019 diphtheria, tetanus toxoids and acellular pertussis vaccine, unspecified formulation Cecilio Benjamin Other [facility] 12-25-2018 pneumococcal polysaccharide vaccine, 23 valent Jose Enrique Princeville II Other [facility] 04-30-2018 influenza virus vaccine, split virus (incl. purified surface antigen) Cecilio Benjamin Other [facility] [employer] Other 04-30-2018 influenza virus vaccine, unspecified formulation [facility] 04-09-2017 influenza virus vaccine, split virus (incl. purified surface antigen) Cecilio Benjamin Other [facility] [employer] Other 04-09-2017 influenza virus vaccine, unspecified formulation [facility] 05-31-2016 zoster vaccine, live Jose Enrique Princeville II Other [facility] 05-13-2016 influenza virus vaccine, split virus (incl. purified surface antigen) Cecilio Benjamin Other [facility] [employer] Other 05-13-2016 influenza virus vaccine, unspecified formulation [facility] 05-09-2015 influenza virus vaccine, split virus (incl. purified surface antigen) Cecilio Benjamin Other [facility] [employer] Other 05-09-2015 influenza virus vaccine, unspecified formulation [facility] 03-06-2015 pneumococcal conjuga te vaccine, 13 valent Jose Enrique Princeville II Other [facility] 05-07-2014 tetanus and diphther ia toxoids, adsorbed, preservative free, for adult use (5 Lf of tetanus toxoid and 2 Lf of diphtheria toxoid) Cecilio Benjamin Other [facility] 04-23-2013 tetanus and diphther ia toxoids, adsorbed, preservative free, for adult use (5 Lf of tetanus toxoid and 2 Lf of diphtheria toxoid) Cecilio Benjamin Other [facility] 08-21-2012 pneumococcal polysaccharide vaccine, 23 valent Cecilio Benjamin Other [facility] 12-12-2011 zoster vaccine, live Jose Enrique Benji II Other [facility] Payers Date Payer Category Payer Self-pay 2022 Unknown [id number] 2018 Medicare [id number] 2006 Medicare [id number] 2006 Unknown [id number] 1959 Medicare [id number] 2.1 [id number] 1959 Unknown [id number] 2.16. [id number] 1941 Unknown [id number] 2.16.84 [id number] 1941 Unknown [id number] 2.16.84 [id number] 1941 Unknown [id number] 2.16.84 [id number] 1941 Unknown [id number] 2.16.84 [id number] 1941 Unknown [id number] 2.16.84 [id number] 1941 Unknown [id number] 2.16. [id number] 1941 Unknown [id number] 2.16. [id number] 1941 Unknown [id number] 2.16. [id number] Unknown [id number] 2.16.8 [id number] Social History Date Type Detail Facility Start: 05-09-2021 End: 03-15-2023 Sex Assigned At [facility] Start: 1940 Sex Assigned At Male [facility] Start: 06-13-2017 End: 01-22-2024 Tobacco smoking status NHIS Never smoked tobacco [facility] Start: 06-13-2017 Tobacco use and exposure Smokeless tobacco non-user [facility] Start: 05-09-2021 Alcohol intake Current drinke r of alcohol (finding) [facility] Start: 12-11-2017 Alcohol Comment [employer] in coffee [facility] Start: 1940 Sex Assigned At Not on file [facility] Start: 05-09-2021 End: 03-15-2023 History of Social function [facility] Adult Depression Screening Assessment 1 [facility] Medical Equipment Procedure Code Equipment Code Equipment Origin al Text Equipment Identifier Dates [place] Swivelock Tenodesis 8mm Biocomposite 19.5mm Suture [place] Eyelet - [id number] Start: 06-29-2017 Sleeve V40 +0mm Offset [place] Taper Titanium Adapter Hip - [id number] Start: 01-01-2018 Screw Trident Secur-Fit Torx 6.5mm Titanium 20mm Bone Sterile Acetabular - [id number] Start: 01-01-2018 Clinical Notes 08-25-2022 to 01-22-2024 Note Date & Type Note Facility 01-22-2024 Evaluation note Diagnosis Onset Date Chronic bronchitis, simple a cute Chronic kidney disease, stage 3a acute Elevated cholesterol acute Generalized anxiety disorder acute Hypertension acute Lumbar spondylolysis acute Obstructive sleep apnea acut e Medicare annual wellness visit, subsequent noneactive [facility] Work Phone: [phone] Evaluation note* Encounter Date Diagnosis Assessment Notes [...] and clinically improving, no further treatment necessary [employer] Other 02-02-2024 Evaluation note* Encounter Date Diagnosis Assessment Notes Treatment Notes Treatment Clinical Notes Sep, Carotid bruit, unspecified laterality (ICD-10 - R09.89) [employer] Other 01-23-2024 Evaluation note* Encounter Date Diagnosis [...] tid Initiate Prednisone _update office on Sunday [employer] Other 01-15-2024 Evaluation note* Encounter Date Diagnosis Assessment Notes Treatment Notes Treatment Clinical Notes Aug, JONATHAN (generalized anxiety disorder) (ICD-10 - F41.1) [employer] Other 12-13-2023 Evaluation note* Encounter Date Diagnosis [...] best 2/3 readings w/ goal < 135/85 [employer] Other 11-28-2023 Evaluation note* Encounter Date Diagnosis [...] daily for blisters and ulcerations. Moisturizers daily [facility] Other 11-21-2023 Evaluation note* Encounter Date Diagnosis [...] Call if develop increased pain or erythema [facility] Other 11-01-2023 Evaluation note* Encounter Date Diagnosis [...] use, the patient reduces the risk for VA, CVA, HTN, cardiac dysrhythmias and sudden cardiac [...] very active. No change in medical treatment [employer] Other 10-27-2023 Evaluation note* Encounter Date Diagnosis Assessment Notes Treatment Notes Treatment Clinical Notes May, JONATHAN (generalized anxiety disorder) (ICD-10 - F41.1) [facility] Other 10-11-2023 Evaluation note* Encounter Date Diagnosis [...] They may safely use Tylenol as needed. [employer] Other 08-01-2023 Miscellaneous Notes* Telephone Encounter - Neida Porter MA - 03/20/2023 12:26 PM EDT DATE OF SERVICE: 03/15/2023 PATIENT'S PHONE NUMBERS: [phone] (home) OR @[email or web address]@ PROVIDER: Dr. Jaeger PROCEDURE: Elective Pain Management Procedure Left message on machine Asked pt to call back and speak with the specialty triage nurse with update. Please obtain percentage better and the duration of improvement. Please inquire if there were any problems afterwards. Neida Brink documented [facility] Miscellaneous Notes* Telephone Encounter - Linda Knox LPN - 02/26/2023 4:42 PM EDT Spoke to patient in reguards to pre procedure instructions. 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 Pt advised to arrive 30 min [...] okay to take. Advised on location of [address] Pt will receive a follow up call several days after by a steamblaster. If you experience any increase in weakness, difficulty walking or significant increase in pain thatlast more than 4 hours, please proceed to the Emergency Room and tell them you had a spine procedure done recently. Additionally, call us and notify us of these symptoms. Please call [phone] if you have any questions. Pt verbalized understanding. documented in [facility] Miscellaneous Notes* Telephone Encounter - Linda Knox LPN - 02/19/2023 11:57 AM EDT Order approved Spoke to daughter in [facility] to pre procedure instructions. 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 Pt advised to arrive 30 min prior to the time given by the medical scheduler. Pt advised will also receive a call the day before from the surgery center to confirm date/time. Pt can eat and drink as normal. and Pt can take medications as normal. No alcohol 24 hours prior. Pt is on ASA.- 81 mg okay to take. and must Advised on location of [address] Pt will receive a follow up call several days after by a steamblaster. If you experience any increase in weakness, difficulty walking or significant increase in pain thatlast more than 4 hours, please proceed to the Emergency Room and tell them you had a spine procedure done recently. Additionally, call us and notify us of these symptoms. Please call [phone] if you have any questions. Pt verbalized understanding. * Telephone Encounter - Linda Knox LPN - 02/19/2023 9:43 AM EDT Spine Intervention order formatted for review * Telephone Encounter - Camilla Frost - 02/19/2023 9:18 AM EDT Ruperto Thorpe daughter Celi is calling Davidrajendra Jaeger, DO today to ask about getting patient a shot again - Last one in 2020 Please advise what patient needs as far as OV or MRI or if he can be scheduled for procedure - daughter states she left a VM somewhere last week but never heard back Please call Celi as patient cannot hear well [phone] Patient has been identified by name and birthdate. Duration of symptoms: N/A Person calling: daughter: Celi Call patient at: N/A [phone] (home) [phone] (cell) Was an appointment scheduled: No Closing statement: Results or non-symptom based questions: Thank you for calling [facility], your call will be returned within the next business day. Camilla Jarrell Pss documented in this encounterPrem[facility]06-28-2023 Evaluation note* Encounter Date Diagnosis [...] use, the patient reduces the risk for VA, CVA, HTN, cardiac dysrhythmias and sudden cardiac [...] (ICD-10 - F41.1) Healthy diet, keep active [employer] Other 06-22-2023 Evaluation note* Encounter Date Diagnosis Assessment Notes Treatment Notes Treatment Clinical Notes Jan, Elevated cholesterol (ICD-10 - E78.00) Jan, Stage 3a chronic kidney disease (ICD-10 - N18.31) Jan, Primary hypertension (ICD-10 - I10) Jan, Screening PSA (prostate specific antigen) (ICD-10 - Z12.5) Jan, High risk medication use (ICD-10 - Z79.899) [facility] Other 06-15-2023 Evaluation note* Encounter Date Diagnosis [...] this time 6. Follow up as needed [facility] Other 04-24-2023 Evaluation note* Encounter Date Diagnosis [...] use of statin, experiencing ADR and stopped [facility] Other 03-23-2023 Evaluation note* Encounter Date Diagnosis [...] - M17.12) Quad exercises, ice/heat and Tylenol [facility] Other 03-23-2023 Evaluation note* Encounter Date Diagnosis [...] injection well. 6. Follow up as needed [facility] Other 02-23-2023 Evaluation note* Encounter Date Diagnosis [...] use, the patient reduces the risk for VA, CVA, HTN, cardiac dysrhythmias and sudden cardiac [...] tract symptoms (ICD-10 - N40.1) Symptoms tolerable [facility] Other 02-08-2023 Evaluation note* Encounter Date Diagnosis Assessment Notes Treatment Notes Treatment Clinical Notes Sep, Elevated cholesterol (ICD-10 - E78.00) Sep, Stenosis of right carotid artery (ICD-10 - I65.21) Sep, Retinal hemorrhage of right eye (ICD-10 - H35.61) [facility] Other 01-06-2023 Evaluation note* Encounter Date Diagnosis Assessment Notes Treatment Notes Treatment Clinical Notes Aug, Carotid bruit, unspecified laterality (ICD-10 - R09.89) [employer] Other Evaluation noteNo assessment information available [facility] Work Phone: [employer] noteNo [employer] Other Evaluation note* Diagnosis Spinal stenosis, lumbar region with neurogenic claudication- Primary Lumbar radiculopathy, chronic Thoracic or lumbosacral neuritis or radiculitis, unspecified documented in this encounter [facility] Diagnosis Pseudoclaudication syndrome- Primary Spinal stenosis, lumbar region, with neurogenic claudication Lumbar radiculopathy Thoracic or lumbosacral neuritis or radiculitis, unspecified Pseudoclaudication syndrome Spinal stenosis, lumbar region, with neurogenic claudication Lumbar radiculopathy Thoracic or lumbosacral neuritis or radiculitis, unspecified documented in this encounter [facility] Narrative - Reported* Type Description Date [...] JANELLE 06/2017 Hospitalization History see surgical history [facility] Other Hospital Discharge instructionsAmbulatory Orders* Referral to Pain Management Location: None [facility] Work Phone: Summary Purpose Family History No Family History Records Found Relationship Condition Age at Onset Recorded Date/T niru father Unknown Advance Directives No Advanced Directives Records Found Advance Directive Response Recorded Date/ Time Advance Directives No January 21 4 9:53am Chief Complaint and Reason for Visit [...] section and content) DATE CREATED AUTHOR 02/06/2018 [facility] DATE CREATED AUTHOR AUTHOR'S ORGANIZ ATION [facility]/10/2018 [facility] DATE CREATED AUTHOR AUTHOR'S ORGANIZ ATION 11/06/2022 [facility] DATE CREATED AUTHOR AUTHOR'S ORGANIZ ATION 12/21/2022 [facility] DATE CREATED AUTHOR AUTHOR'S ORGANIZ ATION 03/15/2023 [facility] DATE CREATED AUTHOR AUTHOR'S ORGANIZ ATION 03/22/2023 [facility] DATE CREATED AUTHOR AUTHOR'S ORGANIZ ATION 03/08/2024 [facility] REASON FOR VISIT (unrecogniz ed section and content) Reason Comments Appointment Reason Comments Procedure Reason Comments Follow Up Phone Call Care Teams (unrecognized sec tion and content) Team Status: Inactive Member Role Status Dates Jose Enrique Leblanc II, MD Attending Provider Active Textile Conversion Manager Relationship Specialty Start Date End Date Cecilio Benjamin DO PCP - General Internal Medicine 09/04/13 [employer] Relationship Specialty Start Date End Date Cecilio Benjamin DO PCP - General Internal Medicine 09/04/13 [employer]ile Conversion Manager Relationship Specialty Start Date End Date Cecilio Benjamin DO PCP - General Internal Medicine 09/04/13 Textile Conversion Manager Relationship Specialty Start Date End Date Cecilio [...] or prosecute any alcohol or drug abuse patient.[facility] Center[facility] the event this information is protected by the Federal Confidentiality of Alcohol and Drug Abuse Patient Records regulations: The Federal rules restrict any use of the information to criminally investigate or prosecute any alcohol or drug abuse patient.[facility] CenterIn the event this information is protected by the Federal Confidentiality of Alcohol and Drug Abuse Patient Records regulations: The Federal rules restrict any use of the information to criminally investigate or prosecute any alcohol or drug abuse patient.[facility] CenterIn the event this information is protected by the Federal Confidentiality of Alcohol and Drug Abuse Patient Records regulations: The Federal rules restrict any use of the information to criminally investigate or prosecute any alcohol or drug abuse patient.[facility] FOR RECORDS PERTAINING TO PATIENTS [...] BE BASED ON THE PRIMARY CLINICAL RECORDS. [facility] [employer] [facility]. provides no warranty or guarantee of the accuracy or completeness of information in this document.
[2024-03-10 08:25] VITALS: BP 159/72; PULSE 60; TEMP 36.6; O2SAT 99
[2024-03-10 09:27] VITALS: BP 171/76; BP 180/76; PULSE 56; PULSE 58; O2SAT 98; O2SAT 99
--- NOTE | 2024-03-10 09:29 | W.PM.PROCNOT ---
Date of procedure: 03/10/24 Pre-op diagnosis: Pain due to lumbar spondylosis without myelopathy Post-op diagnosis: same as pre-op Procedure: Procedure: Bilateral L4-5, L5-S1 medial branch block Medications: Bupivacaine 0.25% 6cc The patient was seen and examined in the preoperative holding area.? An informed consent was obtained and placed on the chart.? The patient was brought to the medical procedure unit and placed in the prone position.? A timeout was completed verifying correct patient, procedure site, positioning, plan, and special equipment.? Using aseptic technique, the needle was placed at left L4. Under direct fluoroscopic visualization a Quincke-tipped spinal needle was advanced to the junction of the superior articulating process with the transverse process at the designated medial branch segment.? Preceded by negative aspiration, the above-mentioned injectate was placed in 1 mL aliquots.? The procedure was repeated at left L5, S1.? The needle was removed and insertion site was covered. The same procedure, at the same levels, was completed on the right side. The patient was taken to the postprocedural recovery area and monitored for an appropriate length of time before found suitable for discharge in the company of a responsible adult. Anesthesia: Local Surgeon: Maddie Villalobos Pathology: none sent Condition: stable Disposition: no change
[2024-03-10] MEDS: BUPIVACAINE HCL 0.25% PF 25 MG/10 ML VIAL 8 ML INJ (09:30)
[2024-03-10] MEDS: LIDOCAINE HCL 2% 400 MG/20 ML MDV INJ (09:30)
== END 2024-03-10 09:34 | disposition home or self-care (01) ==
PROVIDERS: PCP Internal Medicine; Visit Provider Anesthesiology
DX: M47.816 Spondylosis without myelopathy or radiculopathy, lumbar region (principal); R52 Pain, unspecified
CPT/HCPCS: 64493; 64494; J0665

== ENCOUNTER 2024-03-13 11:40 | Outpatient (OUT) | payer MEDICARE, OTHER, SELFPAY ==
--- OUTSIDE RECORDS SUMMARY | 2024-03-13 11:43 | XMS_ITS | CCD ---
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 (Mild pain reliever) [id number] 200 actuat albuterol 0.09 mg/actuat metered dose [...] on above: Take 4 tablets by [facility] 1 hour prior to procedure and [...] Start: 07-10-2023 take 1 capsule by [facility] every twelve hours Doxycycline Hyclate 100 MG [...] Other senior living (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 therapy; Translations: [OT [facility] CURRENT DRUG THERAPY] Onset: 11-06-2022 Episodic [...] Test Name Value Interpretation Reference Range Facility [facility] 03-20-2023 [facility] Telephone (SPNMAV) RUPERTO THORPE ([id number]) 1940 [place] Date Time Provider Department 03/20/23 DAVID JAEGER During your visit today, we recorded the following information about you: Neida Porter MA 03/20/2023 12:30 PM Signed DATE OF SERVICE: 03/15/2023 PATIENT'S PHONE NUMBERS: [phone] (home) OR @ITM Power@ PROVIDER: Dr. Jaeger PROCEDURE: Elective Pain Management [...] work Requesting to call his CELL ONLY [phone] what to do next Leave Detailed messages [...] of spine injection schedulers to call at [phone]. Patient will call if he wants to schedule another injection. 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 OPERATIVE NOon 03-15-2023 OPERATIVE NO HNO ID: [id number] Author: David Jaeger, DO Service: ? Author [...] offered a procedure / surgery at a [place] facility. Patient and I have discussed in [...] as indicated on the consent form. [facility] approved time out was performed identifying the site, side and level of procedure prior to start of procedure. [facility] SURGERY [facility] [place] - ELECTIVE PROCEDURE Lumbar Transforaminal Epidural Steroid [...] the entire procedure. David Jaeger DO, MBA [facility] 02-26-2023 CNPN Telephone (SPNMAV) RUPERTO THORPE ([id number]) 1940 [place] Date Time Provider Department 02/26/23 DAVID JAEGER SPJEREMYAV During your visit today, we recorded the following information about you: Linda Knox LPN 02/26/2023 4:49 PM Signed [facility]. Pt must have a goat driver. Pt advised to arrive 30 min [...] take. Advised on location of ASC-2nd floor [facility] Pt will receive a follow up call several days after by a steam engineer. If you experience any increase in weakness, difficulty walking or significant increase in pain that last more than 4 hours, please proceed to the Emergency Room and tell them you had a spine procedure done recently. Additionally, call us and notify us of these symptoms. Please call [phone] if you have any questions. Pt verbalized [...] Status:Closed by LINDA [facility]NO[facility] (SPNMAV) RUPERTO THORPE ([id number]) 1940 [place]* Date Time Provider Department [...] call Celi as patient cannot hear well [phone] Patient has been identified by name and birthdate. Duration of symptoms: N/A Person calling: daughter: Celi Call patient at: N/A [phone] (home) [phone] (cell) Was an appointment scheduled: No Closing statement: Results or non-symptom based questions: Thank you for calling [place], your call will be returned within the next business day. Camilla Jarrell [facility] Linda Knox LPN 02/19/2023 9:45 AM Signed Spine Intervention order formatted for review Linda Knox LPN 02/19/2023 11:59 AM Signed Order approved Spoke to daughter in reguards to pre procedure instructions. Daughter given scheduling number [phone] Pt must have a goat driver. Pt advised to arrive 30 min prior to the time given by the nutritionist public health. Pt advised will also receive a call the day before from the surgery center to confirm date/time. Pt can eat and drink as normal. and Pt can take medications as normal. No alcohol 24 hours prior. Pt is on ASA.- 81 mg okay to take. and must Advised on location of ASC-2nd floor [facility] Pt will receive a follow up call several days after by a steam engineer. If you experience any increase in weakness, difficulty walking or significant increase in pain that last more than 4 hours, please proceed to the Emergency Room and tell them you had a spine procedure done recently. Additionally, call us and notify us of these symptoms. Please call [phone] if you have any questions. Pt verbalized understanding. 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 Normal [facility] XR knee LT 4V*on 11-09-2022 XR knee LT 4V* [facility] Main [place] [address] [place] [address] XRay Report Signed Patient: Ruperto Thorpe MR#: [id number] 5 : 1940 Acct:[id number] Age/Sex: 82 / M ADM Date: 11/09/22 [place] [facility] [place]: Type: [facility] Attending Dr: Jose Enrique Leblanc II, [...] Darren Yuen M.D.11/09/2022 5:03 PM Dictation Location: [place] [address] Transcribed By: [facility] 11/09/22 170 Dictated By: Darren Yuen II, MD 11/09/221700 Signed By: 11/09/22 170 [facility] XR knee LT 4V* [facility] [employer] Other XR knee LT 4V* [facility] Main [facility] [employer] Other XR knee LT 4V* [address] [place] [address] [employer] Other XR knee LT 4V* [place] [address] No rt [employer] Other XR knee LT 4V* XRay Report [address] Other XR knee LT 4V* Signed [employer] Other XR knee LT 4V* Patient: Ruperto Thorpe MR#: [id number] [place] [employer] Other XR knee LT 4V* 5 [employer] Other XR knee LT 4V* : 1940 Acct:[id number] [employer] Other XR knee LT 4V* Age/Sex: 82 / M ADM Date: 11/09/22 [facility] Other XR knee LT 4V* Loc: [facility] Room: Type : [facility] Other XR knee LT 4V* Attending Dr: Jose Enrique Leblanc II, MD [facility] Other XR knee LT 4V* Copies to: Jose Enrique Leblanc MD [facility] Other XR knee LT 4V* Ordering Provider: Jose Enrique Leblanc MD [employer] Other XR knee LT 4V* Date of Service: 11/09/22 [facility] Other XR knee LT 4V* XR/XR knee LT 4V*: Acute pain of left knee [facility] Other XR knee LT 4V* XR knee LT 4V* 11/09/2022 3:15 PM [facility] Other XR knee LT 4V* SIGNS AND SYMPTOMS: Acute pain of left knee [facility] Other XR knee LT 4V* PROTOCOL: Frontal, lateral, oblique, and sunrise views of the left knee [facility] Other XR knee LT 4V* COMPARISON: 11/05/2022 [facility] Other XR knee LT 4V* FINDINGS: [employer] Other XR knee LT 4V* There is similar narrowing of the weightbearing joint spaces with chondrocalcinosis of the menisci [employer] Other XR knee LT 4V* suggesting underlyin g CPPD. There is narrowing of the patellofemoral joint space with spurring at [facility] Other XR knee LT 4V* the superior pole of patella. There is a small joint effusion. No soft tissue swelling. No acute [facility] Other XR knee LT 4V* displaced fracture. Vascular calcifications are present posteriorly. [facility] Other XR knee LT 4V* XR/XR knee LT 4V* [facility] Other XR knee LT 4V* IMPRESSION: [address] Other XR knee LT 4V* Tricompartmental degenerative changes are noted in the left knee with a small joint effusion. [facility] Other XR knee LT 4V* There is chondrocalcinosis of the menisci suggesting underlying CPPD. [facility] Other XR knee LT 4V* Impression dictated by: Darren Yuen M.D.11/09/2022 5:03 PM [employer] Other XR knee LT 4V* Dictation Location: [place] [address] [employer] Other XR knee LT 4V* Transcribed By: PWS 11/09/22 1703 [employer] Other XR knee LT 4V* Dictated By: Darren Yuen II, MD 11/09/221700 [facility] Other XR knee LT 4V* Signed By: [employer] Other XR knee LT 4V* 11/09/22 1703 [employer] Other XR pelvis 1-2Von 11-09-2022 XR pelvis 1-2V [facility] Main [place] [address] [place] [address] XRay Report Signed Patient: Ruperto Thorpe MR#: [id number] 5 : 1940 Acct:[id number] Age/Sex: 82 / M ADM Date: 11/09/22 [facility] [facility] Room: Type: [facility] Attending Dr: Jose Enrique Leblanc II, [...] Darren Yuen M.D.11/09/2022 5:01 PM Dictation Location: [place] [address] Transcribed By: [facility] 11/09/221700 Dictated By: Darren Yuen II, MD 11/09/221699 Signed By: 11/09/221700 [facility] XR pelvis 1-2V XR/XR pelvis 1-2V: Acute pain of left knee [facility] Other XR pelvis 1-2V XR pelvis 1-2V 11/09/2022 3:15 PM [facility] Other XR pelvis 1-2V SIGNS AND SYMPTOMS: Left knee pain [facility] Other XR pelvis 1-2V PROTOCOL: Frontal radiograph of the chest [facility] Other XR pelvis 1-2V COMPARISON: None [employer] Other XR pelvis 1-2V There is mild narrowing of the left hip joint space with subcortical cystic change on both sides of [facility] Other XR pelvis 1-2V the joint along the acetabular there is chondrocalcinosis of the labrum overlying the superior [facility] Other XR pelvis 1-2V acetabular rim and superior lateral femoral head. The bony ring of the pelvis is intact. There is [facility] Other XR pelvis 1-2V total right hip arthroplasty. Degenerative changes are noted in the sacroiliac joints. No fracture [facility] Other XR pelvis 1-2V is [employer] Other XR pelvis 1-2V XR/XR pelvis 1-2V [facility] Other XR pelvis 1-2V Degenerative changes are noted in the left hip with findings suspicious for previous labral [facility] Other XR pelvis 1-2V pathology. [employer] Other XR pelvis 1-2V Postoperative change s are noted in the right hip with total right hip arthroplasty hardware. [facility] Other XR pelvis 1-2V Impression dictated by: Darren Yuen M.D.11/09/2022 5:01 PM [facility] Other XR pelvis 1-2V Transcribed By: COLIN 11/09/22 170 [facility] Other XR pelvis 1-2V Dictated By: Darren Yuen II, MD 11/09/22 [facility] [employer] Other XR pelvis 1-2V 11/09/22 [facility] [employer] Other XR KNEE LT 4V or >on [...] There is chondrocalcinosis. Soft tissues: Unremarkable. IMPRESSION: Oolu-tk-cvgzwxzu osteoarthritis as described above. Chondrocalcinosis. No acute fracture or dislocation. Electronically authenticated by: CHUCK JONES Date: 2022-11-05 11:19 Normal [facility] US CAROTID ART BILon 023 US CAROTID [...] JONAS MCLEOD Date: 2022-09-26 10:58 Normal [facility] CBC AUTO DIFFon 08-10-2022 BASO # 0.0 103/ul Normal 0.0-0.1 [facility] Comment on above: Performed By: #### C BC #### [facility] [address] [place] [address] Dr. Alexis Brink Basophils/100 WBC (Bld) 0.7 % Normal 0.2-2.0 [facility] Comment on above: Performed By: #### C BC #### [facility] [address] [place] [address] Dr. Alexis Brink EO # 0.3 103/ul Normal 0.0-0.7 [facility] Comment on above: Performed By: #### C BC #### [facility] [address] [place] [address] Dr. Alexis Brink Eosinophils/100 WBC (Bld) 6.1 % Normal 0.9-7.0 [facility] Comment on above: Performed By: #### C BC #### [facility] [address] [place] [address] Dr. Alexis Brink Erythrocyte distribution width (RBC) [Ratio] 12.1 % Normal 11.0-15.0 [facility] Comment on above: Performed By: #### C BC #### [facility] [address] [place] [address] Dr. Alexis Brink Hematocrit (Bld) [Volume fraction] 44.2 % Normal 42.0-54.0 [facility] Comment on above: Performed By: #### C BC #### [facility] [address] [place] [address] Dr. Alexis Brink Hemoglobin (Bld) [Mass/Vol] 14.9 g/dL Normal 14.0-18.0 [facility] Comment on above: Performed By: #### C BC #### [facility] [address] [place] [address] Dr. Alexis Brink IG # 0.01 10e3/ul Normal 0.00-0.03 [facility] Comment on above: Performed By: #### C BC #### [facility] [address] [place] [address] Dr. Alexis Brink IG % 0.2 % Normal 0.0-0.5 [facility] Comment on above: Performed By: #### C BC #### [facility] [address] [place] [address] Dr. Alexis Brink LYMPH # 1.2 103/ul Normal 1.2-3.8 [facility] Comment on above: Performed By: #### C BC #### [facility] [address] [place] [address] Dr. Alexis Brink Lymphocytes/100 WBC (Bld) 21.3 % Normal 20.5-60.0 [facility] Comment on above: Performed By: #### C BC #### [facility] [address] [place] [address] Dr. Alexis Brink MANUAL DIFF REQ NO Normal [facility] Comment on above: Performed By: #### C BC #### [facility] [address] [place] [address] Dr. Alexis Brink MCH (RBC) [Entitic mass] 30.7 pg Normal 25.9-34.0 [facility] Comment on above: Performed By: #### C BC #### [facility] [address] [place] [address] Dr. Alexis Brink MCHC (RBC) [Mass/Vol] 33.7 g/dL Normal 29.9-35.2 [facility] Comment on above: Performed By: #### C BC #### [facility] [address] [place] [address] Dr. Alexis Brink MCV (RBC) [Entitic vol] 91.1 fL Normal 80.0-94.0 [facility] Comment on above: Performed By: #### C BC #### [facility] [address] [place] [address] Dr. Alexis Brink MONO # 0.5 103/ul Normal 0.3-0.8 [facility] Comment on above: Performed By: #### C BC #### [facility] [address] [place] [address] Dr. Alexis Brink Monocytes/100 WBC (Bld) 8.5 % Normal 1.7-12.0 [facility] Comment on above: Performed By: #### C BC #### [facility] [address] [place] [address] Dr. Alexis Brink NEUT # 3.5 103/ul Normal 1.4-6.5 [facility] Comment on above: Performed By: #### C BC #### [facility] [address] [place] [address] Dr. Alexis Brink Neutrophils/100 WBC (Bld) 63.2 % Normal 43.0-75.0 [facility] Comment on above: Performed By: #### C BC #### [facility] [address] [place] [address] Dr. Alexis Brink Platelet mean volume (Bld) [Entitic vol] 10.0 fL Normal 9.5-13.5 [facility] Comment on above: Performed By: #### C BC #### [facility] [address] [place], [place] [address] Dr. Alexis Brink PLT 120 103/ul Critically low 150-450 [facility] Comment on above: Performed By: #### C BC #### [facility] [address] [place] [address] [address] Alexis Brink RBC 4.85 106/ul Normal 4.70-6.10 [facility] Comment on above: Performed By: #### C BC #### [facility] [address] [place] [id number] Alexis Brink WBC 5.6 103/ul Normal 4.0-11.0 [facility] Comment on above: Performed By: #### C BC #### [facility] [address] [place] [id number] Alexis Brink Covid-19 PCR (CVDTB)on 07-21 SARS-CoV-2 (COVID-19) RNA RICKY+probe Ql (Unsp spec) Not detected Normal NOT DETECTED [facility] Comment on above: Result Comment: This test is not yet approved or cleared by the [place] FDA. When there are no FDA-approved or cleared tests available, and other criteria are met, FDA can make tests available under an emergency access mechanism called an Emergency Use Authorization (EUA). The EUA for this test is supported by the [employer] of Health and Human Service's (HHS's) declaration [...] with SARS-CoV-2. Performed By: #### C VDTBH ####[facility] [address] [place], [place] [address]EkDr. Alexis Brink INFLUENZA A AND B AGon 08-10 INFLUANEGH SEE BELOW Normal [facility] Comment on above: Result Comment: Nega tive for Flu A protein angiten. Infection due to Flu A cannot be ruled out. Flu A angiten in the sample may be below the detection limit of the test. Performed By: #### I NFLUAB ####[facility] [address] [place] [address]Dr. Alexis Brink INFLUBNEGH SEE BELOW Normal [facility] Comment on above: Result Comment: Nega tive for Flu B protein antigen. Infection due to Flu B cannot be ruled out. Flu B antigen in the sample may be below the detection limit of the test. Performed By: #### I NFLUAB ####[facility] [address] [place] [address]Dr. Alexis Brink INFLUENZA A AG Negative Normal NEGATIVE SEE COMMENT [facility] Comment on above: Performed By: #### I NFLUAB ####[facility] [address] [place] [address]Dr. Alexis Brink INFLUENZA B AG Negative Normal NEGATIVE SEE COMMENT [facility] Comment on above: Performed By: #### I NFLUAB ####[facility] [address] [place] [address]DrLainey Brink INTERNAL CONTROLS Within Normal Limits Normal Wi thin Normal Limits [facility] Comment on above: Performed By: #### I NFLUAB ####[facility] [address] [place] [address]DrLainey Brink PROF CHEM 8 (BAS METB)on Anion gap [Moles/Vol] 11.4 mmol/L Normal [facility] Comment on above: Performed By: #### B NARA, HSTROPN #### [facility] [address] [place] [address] [address] Alexis Brink Calcium [Mass/Vol] 8.9 mg/dL Normal 8.5-10.1 [facility] Comment on above: Performed By: #### B MP, HSTROPN #### [facility] [address] [place] [address] [address] Alexis Brink Chloride [Moles/Vol] 102 mmol/L Normal 98-107 [facility] Comment on above: Performed By: #### B NARA, HSTROPN #### [facility] [address] [place] [address] [address] Alexis Brink CO2 [Moles/Vol] 28.8 mmol/L Normal 21.0-32.0 [facility] Comment on above: Performed By: #### B NARA, HSTROPN #### [facility] [address] [place] [address] [address] Alexis Brink Creatinine [Mass/Vol] 1.35 mg/dL Critically high 0.70-1.30 [facility] Comment on above: Performed By: #### B NARA, HSTROPN #### [facility] [address] [place] [address] Dr. Alexis Brink EGFR-AF BURKINAN >60 Normal >=60 [facility] Comment on above: Performed By: #### B NARA, HSTROPN #### [facility] [address] [place] [address] Dr. Alexis Brink EGFR-NON AF BURKINAN 51 mL/min/1.73m2 Critically low >=60 [facility] Comment on above: Performed By: #### B NARA, HSTROPN #### [facility] [address] [place] [address] Dr. Alexis Brink Glucose [Mass/Vol] 109 mg/dL Critically high 74-106 [facility] Comment on above: Performed By: #### B NARA, HSTROPN #### [facility] [address] [place] [address] [address] Alexis Brink Potassium [Moles/Vol] 4.2 mmol/L Normal 3.5-5.1 [facility] Comment on above: Performed By: #### B NARA, HSTROPN #### [facility] [address] [place] [address] [address] Alexis Brink Sodium [Moles/Vol] 138 mmol/L Normal 136-145 [facility] Comment on above: Performed By: #### B NARA, HSTROPN #### [facility] [address] [place] [address] Dr. Alexis Brink Urea nitrogen [Mass/Vol] 18.0 mg/dL Normal 7.0-18.0 [facility] Comment on above: Performed By: #### B NARA, HSTROPN #### [facility] [address] [place] [address] [address] Alexis Brink Urea nitrogen/Creatinin e [Mass ratio] 13.3 mg/mg Normal [facility] Comment on above: Performed By: #### B NARA, HSTROPN #### [facility] [address] [place] [address] [address] Alexis Brink TROPONIN, HIGH SENSITIVITYon 08-10-2022 HSTROP 22.2 pg/mL Normal 4.0-76.1 [facility] Comment on above: Result Comment: CUT- OFF POINTS HAVE BEEN ESTABLISHED BASED ON THE FOURTH UNIVERSAL DEFINITIONS OF MYOCARDIAL INFARCTION. THE UPPER REFERENCE LIMIT (URL) OF TROPONIN, DEFINED THE 99TH PERCENTILE OF cTnI DISTRIBUTION IN A REFERENCE POPULATION, HAS BEEN CONFIRMED THE DECISION THRESHOLD FOR ND DIAGNOSIS. Performed By: #### B NARA, HSTROPN #### [facility] [address] [place] [address] Dr. Alexis Brink XR CHEST 1 Von [...] RADHA UNDERWOOD Date: 2022-08-10 16:07 Normal [facility] CBC AUTO DIFFon 02-09-2022 BASO # 0.0 103/ul Normal 0.0-0.1 [facility] Comment on above: Performed By: #### C BC #### [facility] [address] [place] [address] Dr. Alexis Brink Basophils/100 WBC (Bld) 0.6 % Normal 0.2-2.0 [facility] Comment on above: Performed By: #### C BC #### [facility] [address] [place] [address] Dr. Alexis Brink EO # 0.5 103/ul Normal 0.0-0.7 [facility] Comment on above: Performed By: #### C BC #### [facility] [address] [place] [address] Dr. Alexis Brink Eosinophils/100 WBC (Bld) 7.2 % Critically high 0.9-7.0 [facility] Comment on above: Performed By: #### C BC #### [facility] [address] [place] [address] Dr. Alexis Brink Erythrocyte distribution width (RBC) [Ratio] 12.4 % Normal 11.0-15.0 [facility] Comment on above: Performed By: #### C BC #### [facility] [address] [place] [address] Dr. Alexis Brink Hematocrit (Bld) [Volume fraction] 45.5 % Normal 42.0-54.0 [facility] Comment on above: Performed By: #### C BC #### [facility] [address] [place] [address] Dr. Alexis Brink Hemoglobin (Bld) [Mass/Vol] 15.4 g/dL Normal 14.0-18.0 [facility] Comment on above: Performed By: #### C BC #### [facility] [address] [place] [address] Dr. Alexis Brink IG # 0.02 10e3/ul Normal 0.00-0.03 [facility] Comment on above: Performed By: #### C BC #### [facility] [address] [place] [address] Dr. Alexis Brink IG % 0.3 % Normal 0.0-0.5 [facility] Comment on above: Performed By: #### C BC #### [facility] [address] [place] [address] Dr. Alexis Brink LYMPH # 1.3 103/ul Normal 1.2-3.8 [facility] Comment on above: Performed By: #### C BC #### [facility] [address] [place] [address] Dr. Alexis Brink Lymphocytes/100 WBC (Bld) 17.8 % Critically low 20.5-60.0 [facility] Comment on above: Performed By: #### C BC #### [facility] [address] [place] [address] Dr. Alexis Brink MANUAL DIFF REQ NO Normal [facility] Comment on above: Performed By: #### C BC #### [facility] [address] [place] [address] Dr. Alexis Brink MCH (RBC) [Entitic mass] 31.4 pg Normal 25.9-34.0 [facility] Comment on above: Performed By: #### C BC #### [facility] [address] [place] [address] Dr. Alexis Brink MCHC (RBC) [Mass/Vol] 33.8 g/dL Normal 29.9-35.2 [facility] Comment on above: Performed By: #### C BC #### [facility] [address] [place] [address] Dr. Alexis Brink MCV (RBC) [Entitic vol] 92.9 fL Normal 80.0-94.0 [facility] Comment on above: Performed By: #### C BC #### [facility] [address] [place] [address] Dr. Alexis Brink MONO # 0.7 103/ul Normal 0.3-0.8 [facility] Comment on above: Performed By: #### C BC #### [facility] [address] [place] [address] Dr. Alexis Brink Monocytes/100 WBC (Bld) 9.6 % Normal 1.7-12.0 [facility] Comment on above: Performed By: #### C BC #### [facility] [address] [place] [address] Dr. Alexis Brink NEUT # 4.6 103/ul Normal 1.4-6.5 [facility] Comment on above: Performed By: #### C BC #### [facility] [address] [address] [address] Alexis Brink Neutrophils/100 WBC (Bld) 64.5 % Normal 43.0-75.0 [facility] Comment on above: Performed By: #### C BC #### [facility] [address] [address] [address] Alexis Brink Platelet mean volume (Bld) [Entitic vol] 10.7 fL Normal 9.5-13.5 [facility] Comment on above: Performed By: #### C BC #### [facility] [address] [address] [address] Alexis Brink PLT 130 103/ul Critically low 150-450 [facility] Comment on above: Performed By: #### C BC #### [facility] [address] [address] [address] Alexis Brink RBC 4.90 106/ul Normal 4.70-6.10 [facility] Comment on above: Performed By: #### C BC #### [facility] [address] [address] [address] Alexis Brink WBC 7.1 103/ul Normal 4.0-11.0 [facility] Comment on above: Performed By: #### C BC #### [facility] [id number] Alexis Brink DIRECT LDLon 02-09-2022 Cholesterol in LDL [Mass/Vol] 144 mg/dL Normal [facility] Comment on above: Performed By: #### D LDL, BMP ####[facility] [address] [id number]. Alexis Brink DLDL NORMAL SEE BELOW Normal [facility] Comment on above: Result Comment: <100 mg/dl OPTIMAL 100 - 129 mg/dl NEAR OR ABOVE OPTIMAL 130 - 159 mg/dl BORDERLINE HIGH 160 - 189 mg/dl HIGH >190 mg/dl VERY HIGH Performed By: #### D LDL, BMP ####[facility] [address] [place], [place] [address]GkDr. Alexis Brink PROF CHEM 8 (BAS METB)on Anion gap [Moles/Vol] 9.3 mmol/L Normal [facility] Comment on above: Performed By: #### D LDL, BMP #### [facility] [address] [address] [address] Alexis Brink Calcium [Mass/Vol] 8.7 mg/dL Normal 8.5-10.1 [facility] Comment on above: Performed By: #### D LDL, BMP #### [facility] [address] [address] [address] Alexis Brink Chloride [Moles/Vol] 103 mmol/L Normal 98-107 [facility] Comment on above: Performed By: #### D LDL, BMP #### [facility] [address] [address] [address] Alexis Brink CO2 [Moles/Vol] 32.1 mmol/L Critically high 21.0-32.0 [facility] Comment on above: Performed By: #### D LDL, BMP #### [facility] [address] [address] [address] Alexis Brink Creatinine [Mass/Vol] 1.35 mg/dL Critically high 0.70-1.30 [facility] Comment on above: Performed By: #### D LDL, BMP #### [facility] [address] [address] [address] Alexis Brink EGFR-AF BURKINAN >60 Normal >=60 [facility] Comment on above: Performed By: #### D LDL, BMP #### [facility] [address] [address] [address] Alexis Brink EGFR-NON AF BURKINAN 51 mL/min/1.73m2 Critically low >=60 [facility] Comment on above: Performed By: #### D LDL, BMP #### [facility] [address] [address] [address] Alexis Brink Glucose [Mass/Vol] 90 mg/dL Normal 74-106 [facility] Comment on above: Performed By: #### D LDL, BMP #### [facility] [address] [place] [address] Dr. Alexis Brink Potassium [Moles/Vol] 4.4 mmol/L Normal 3.5-5.1 [facility] Comment on above: Performed By: #### D LDL, BMP #### [facility] [address] [place] [address] Dr. Alexis Brink Sodium [Moles/Vol] 140 mmol/L Normal 136-145 [facility] Comment on above: Performed By: #### D LDL, BMP #### [facility] [address] [place] [address] Dr. Alexis Brink Urea nitrogen [Mass/Vol] 16.0 mg/dL Normal 7.0-18.0 [facility] Comment on above: Performed By: #### D LDL, BMP #### [facility] [address] [place] [address] Dr. Alexis Brink Urea nitrogen/Creatinin e [Mass ratio] 11.9 mg/mg Normal [facility] Comment on above: Performed By: #### D LDL, BMP #### [facility] [address] [place] [address] Dr. Alexis Brink UA RANDOMon 02-09-2022 Bilirubin Ql (U) Negative Normal NEGATIVE [facility] Comment on above: Performed By: #### U A #### [facility] [address] [place] [address] Dr. Alexis Brink Clarity (U) CLEAR Normal CLEAR [facility] Comment on above: Performed By: #### U A #### [facility] [address] [place] [address] Dr. Alexis Brink Color (U) YELLOW Normal YELLOW [facility] Comment on above: Performed By: #### U A #### [facility] [address] [place] [address] Dr. Alexis Brnik Glucose Ql (U) Negative Normal NEGATIVE [facility] Comment on above: Performed By: #### U A #### [facility] [address] [place] [address] Dr. Alexis Brink Hemoglobin Ql (U) Negative Normal NEGATIVE [facility] Comment on above: Performed By: #### U A #### [facility] [address] [place] [address] Dr. Alexis Brink Ketones Ql (U) Negative Normal NEGATIVE [facility] Comment on above: Performed By: #### U A #### [facility] [address] [place] [address] Dr. Alexis Brink LEUKOCYTES Negative Normal NEGATIVE [facility] Comment on above: Performed By: #### U A #### [facility] [address] [place] [address] Dr. Alexis Brink Nitrite Ql (U) Negative Normal NEGATIVE [facility] Comment on above: Performed By: #### U A #### [facility] [address] [place] [address] Dr. Alexis Brink pH (U) 7.0 [pH] Normal 5-9 [facility] Comment on above: Performed By: #### U A #### [facility] [address] [place] [address] Dr. Alexis Brink SPEC GRAVITY 1.015 Normal 1.005-<=1.025 [facility] Comment on above: Performed By: #### U A #### [facility] [address] [place] [address] Dr. Alexis Brink UA PROTEIN Negative Normal NEGATIVE/ TRACE [facility] Comment on above: Performed By: #### U A #### [facility] [address] [place] [address] Dr. Alexis Brink Urobilinogen Qn (U) 1.0 {Kay'U}/dL Normal 0.2 - 1.0 [facility] Comment on above: Performed By: #### U A #### [facility] [address] [place] [address] Dr. Alexis Brink XR CHEST 2 Von [...] by: LYDIA HAWLEY Date: 2021-12-06 15:42 Normal [facility] Nonvisit Note - PTon 018 Nonvisit Note - PT Cert letter refaxed for signature this date - third and final attempt. Normal [facility] Nonvisit Note - PTon 018 Nonvisit Note - PT Cert letter refaxed to Dr Gooden's office. Second attempt. Normal [facility] Coding Summary.on 01-25-2018 Coding Summary. CODING DATE: 01/25/2018 [facility] STATUS: PAYOR: Medicare ADMIT DX: REASON [...] Dominique Pendleton Date Saved: 01/25/2018 10:54 am [facility] Coding Summary. CODING DATE: 01/25/2018 [facility] STATUS: PAYOR: Medicare ADMIT DX: REASON [...] Dominique Pendleton Date Saved: 01/25/2018 10:54 am [facility] SURGICAL PATHOLOGYon 018 SURGICAL PATHOLOGY [facility]: [id number] Physician: BETH GOODEN MD FINAL DIAGNOSISRight hip, [...] to 8.5 x 8.5 x 1.8 cm. Rest Room Matron sectionsare submitted as follows: A1 soft tissue, A2 bone submitted afterdecalcification.B Юлия/lachelle 01/01/2018 Gross examination performed at [place], [address] [place], [place] [address] [id number] of Report: 01/07/2018Date of Procedure: 01/01/2018Date of Receipt: 01/01/2018Submitted by: BETH GOODEN MDLocation: [id number] interpretation performed at [place], [facility] [place] [facility] [address]. Normal [place] [facility] Comment on above: Performed By: #### S ####See report for performing lab information. Vital Signs Date Time Vital Sign Value Performing Clinician Facility 01-22-2024 09:16-0400 Body height 167.64 cm [facility] 01-22-2024 09:16-0400 Body mass index (BMI) [Ratio] 29.3 kg/m2 [facility] 01-22-2024 09:160400 Body weight 82.55 kg [facility] 01-22-2024 09:16-0400 Diastolic blood pressure 72 mm[Hg] [facility] 01-22-2024 09:16-0400 Heart rate 64 /min [facility] 01-22-2024 09:16-0400 Respiratory rate 20 /min [facility] 01-22-2024 09:16-0400 Systolic blood pressure 131 mm[Hg] [facility] 09-28-2023 11:00-0500 Body height 167.64 cm Cecilio Ball Other [facility] Other 09-28-2023 11:00-0500 Body mass index (BMI) [Ratio] 30.24 kg/m2 Cecilio Ball Other [facility] Other 09-28-2023 11:00-0500 Body weight 85 kg Cecilio Ball Other [facility] Other 09-28-2023 11:00-0500 Respiratory rate 20 /min Cecilio Ball Other [facility] Other 09-28-2023 11:00-0500 SaO2% (BldA) [Mass fraction] 97 % Cecilio Ball Other [facility] Other 09-11-2023 10:45-0500 Body height 167.64 cm Cecilio Ball Other [facility] Other 09-11-2023 10:45-0500 Body mass index (BMI) [Ratio] 29.86 kg/m2 Cecilio Ball Other [facility] Other 09-11-2023 10:45-0500 Body temperature 97.5 [degF] Cecilio Ball Other [facility] Other 09-11-2023 10:45-0500 Body weight 83.92 kg Cecilio Ball Other [facility] Other 09-11-2023 10:45-0500 Diastolic blood pressure 81 mm[Hg] Cecilio Ball Other [facility] Other 09-11-2023 10:45-0500 Respiratory rate 20 /min Cecilio Ball Other [facility] Other 09-11-2023 10:45-0500 SaO2% (BldA) [Mass fraction] 98 % Cecilio Ball Other [facility] Other 09-11-2023 10:45-0500 Systolic blood pressure 161 mm[Hg] Cecilio Ball Other [facility] Other 08-01-2023 10:15-0500 Body height 167.64 cm Cecilio Ball Other [facility] Other 08-01-2023 10:15-0500 Body mass index (BMI) [Ratio] 29.86 kg/m2 Cecilio Ball Other [facility] Other 08-01-2023 10:15-0500 Body weight 83.92 kg Cecilio Ball Other [facility] Other 08-01-2023 10:15-0500 Diastolic blood pressure 79 mm[Hg] Cecilio Ball Other [facility] Other 08-01-2023 10:15-0500 Respiratory rate 20 /min Cecilio Ball Other [facility] Other 08-01-2023 10:15-0500 Systolic blood pressure 172 mm[Hg] Cecilio Ball Other [facility] Other 07-17-2023 10:15-0500 Body height 167.64 cm Cecilio Ball Other [facility] Other 07-17-2023 10:15-0500 Body mass index (BMI) [Ratio] 29.89 kg/m2 Cecilio Ball Other [facility] Other 07-17-2023 10:15-0500 Body weight 84.01 kg Cecilio Ball Other [facility] Other 07-17-2023 10:15-0500 Diastolic blood pressure 78 mm[Hg] Cecilio Ball Other [facility] Other 07-17-2023 10:15-0500 Respiratory rate 20 /min Cecilio Ball Other [facility] Other 07-17-2023 10:15-0500 Systolic blood pressure 172 mm[Hg] Cecilio Ball Other [facility] Other 07-10-2023 14:45-0500 Body height 167.64 cm Cecilio Ball Other [facility] Other 07-10-2023 14:45-0500 Body mass index (BMI) [Ratio] 29.47 kg/m2 Cecilio Ball Other [facility] Other 07-10-2023 14:45-0500 Body weight 82.83 kg Cecilio Ball Other [facility] Other 07-10-2023 14:45-0500 Diastolic blood pressure 80 mm[Hg] Cecilio Ball Other [facility] Other 07-10-2023 14:45-0500 Respiratory rate 20 /min Cecilio Ball Other [facility] Other 07-10-2023 14:45-0500 Systolic blood pressure 150 mm[Hg] Cecilio Ball Other [facility] Other 06-20-2023 08:30-0400 Body height 167.64 cm Cecilio Ball Other [facility] Other 06-20-2023 08:30-0400 Body mass index (BMI) [Ratio] 29.6 kg/m2 Cecilio Ball Other [facility] Other 06-20-2023 08:30-0400 Body weight 83.19 kg Cecilio Ball Other [facility] Other 06-20-2023 08:30-0400 Diastolic blood pressure 76 mm[Hg] Cecilio Ball Other [facility] Other 06-20-2023 08:30-0400 Respiratory rate 20 /min Cecilio Ball Other [facility] Other 06-20-2023 08:30-0400 Systolic blood pressure 157 mm[Hg] Cecilio Ball Other [facility] Other 05-30-2023 13:45-0400 Body height 167.64 cm Cecilio Ball Other [facility] Other 05-30-2023 13:45-0400 Body mass index (BMI) [Ratio] 28.95 kg/m2 Cecilio Ball Other [facility] Other 05-30-2023 13:45-0400 Body weight 81.38 kg Cecilio Ball Other [facility] Other 05-30-2023 13:45-0400 Diastolic blood pressure 78 mm[Hg] Cecilio Ball Other [facility] Other 05-30-2023 13:45-0400 Respiratory rate 16 /min Cecilio Ball Other [facility] Other 05-30-2023 13:45-0400 Systolic blood pressure 158 mm[Hg] Cecilio Ball Other [facility] Other 02-14-2023 08:30-0400 Body height 167.64 cm Cecilio Ball Other [facility] Other 02-14-2023 08:30-0400 Body mass index (BMI) [Ratio] 28.57 kg/m2 Cecilio Ball Other [facility] Other 02-14-2023 08:30-0400 Body weight 80.29 kg Cecilio Ball Other [facility] Other 02-14-2023 08:30-0400 Diastolic blood pressure 80 mm[Hg] Cecilio Ball Other [facility] Other 02-14-2023 08:30-0400 Respiratory rate 16 /min Cecilio Ball Other [facility] Other 02-14-2023 08:30-0400 Systolic blood pressure 135 mm[Hg] Cecilio Ball Other [facility] Other 02-01-2023 08:15-0400 Body height 167.64 cm Jose Enrique Leblanc II Other [facility] Other 02-01-2023 08:15-0400 Body mass index (BMI) [Ratio] 27.44 kg/m2 Jose Enrique Landersisle II Other [facility] Other 02-01-2023 08:15-0400 Body weight 77.11 kg Jose Enrique Dos Palos II Other [facility] Other 12-11-2022 10:30-0400 Body height 167.64 cm Cecilio Ball Other [facility] Other 12-11-2022 10:30-0400 Body mass index (BMI) [Ratio] 28.66 kg/m2 Cecilio Ball Other [facility] Other 12-11-2022 10:30-0400 Body weight 80.56 kg Cecilio Ball Other [facility] Other 12-11-2022 10:30-0400 Diastolic blood pressure 76 mm[Hg] Cecilio Ball Other [facility] Other 12-11-2022 10:30-0400 Respiratory rate 12 /min Cecilio Ball Other [facility] Other 12-11-2022 10:30-0400 Systolic blood pressure 151 mm[Hg] Cecilio Ball Other [facility] Other 11-09-2022 16:00-0400 Body mass index (BMI) [Ratio] 29.21 kg/m2 Jose Enrique Landersisle II Other [facility] Other 11-09-2022 16:00-0400 Body weight 82.1 kg Jose Enrique Benji II Other [facility] Other 11-09-2022 10:30-0400 Body height 167.64 cm Cecilio Ball Other [facility] Other 11-09-2022 10:30-0400 Body mass index (BMI) [Ratio] 29.23 kg/m2 Cecilio Ball Other [facility] Other 11-09-2022 10:30-0400 Body weight 82.15 kg Cecilio Ball Other [facility] Other 11-09-2022 10:30-0400 Diastolic blood pressure 79 mm[Hg] Cecilio Ball Other [facility] Other 11-09-2022 10:30-0400 Respiratory rate 20 /min Cecilio Ball Other [facility] Other 11-09-2022 10:30-0400 Systolic blood pressure 152 mm[Hg] Cecilio Ball Other [facility] Other 10-12-2022 10:00-0500 Body height 167.64 cm Cecilio Ball Other [facility] Other 10-12-2022 10:00-0500 Body mass index (BMI) [Ratio] 29.24 kg/m2 Cecilio Ball Other [facility] Other 10-12-2022 10:00-0500 Body weight 82.19 kg Cecilio Ball Other [facility] Other 10-12-2022 10:00-0500 Diastolic blood pressure 70 mm[Hg] Cecilio Ball Other [facility] Other 10-12-2022 10:00-0500 Respiratory rate 12 /min Cecilio Ball Other [facility] Other 10-12-2022 10:00-0500 Systolic blood pressure 102 mm[Hg] Cecilio Benjamin Other [facility] Other Encounters Encounter Date Encounter Type Care Provider Facility Start: 02-25-2024 End: 02-25-2024 ambulatory Maddie Villalobos MD Facility:[facility] Start: 02-11-2024 End: 02-11-2024 ambulatory Maddie Villalobos MD Facility:[facility] Start: 01-28-2024 End: 01-28-2024 ambulatory Maddie Villalobos MD Facility:[facility] Start: 01-22-2024 End: 01-22-2024 ambulatory [facility] Work Phone: Start: 01-22-2024 End: 01-22-2024 Patient encounter procedure [facility] Work Phone: Start: 10-30-2023 Non-patient / Non-visit [facility] Work Phone: Start: 09-28-2023 End: 09-28-2023 ambulatory Cecilio Benjamin Other [facility] Other Start: 09-28-2023 Office outpatient vi sit 15 minutes Cecilio Benjamin [facility] Start: 09-28-2023 Telephone encounter Cecilio DENISE [facility] Start: 09-21-2023 End: 09-21-2023 ambulatory Cecilio Benjamin Other [facility] Other Start: 09-21-2023 Telephone encounter Cecilio DENISE [facility] Start: 09-11-2023 End: 09-11-2023 ambulatory Cecilio Benjamin Other [facility] Other Start: 09-11-2023 Office outpatient vi sit 15 minutes Cecilio Benjamin [facility] Start: 09-11-2023 Telephone encounter Cecilio DENISE [facility] Start: 09-03-2023 End: 09-03-2023 ambulatory Cecilio Ball Other [facility] Other Start: 09-03-2023 Telephone encounter Cecilio Ball [facility] Start: 08-03-2023 End: 08-03-2023 ambulatory Cecilio Ball Other [facility] Other Start: 08-03-2023 Telephone encounter Cecilio Ball [facility] Start: 08-01-2023 End: 08-01-2023 ambulatory Cecilio Ball Other [facility] Other Start: 08-01-2023 Office outpatient vi sit 15 minutes Cecilio Ball [facility] Start: 07-17-2023 End: 07-17-2023 ambulatory Cecilio Ball Other [facility] Other Start: 07-17-2023 Office outpatient vi sit 15 minutes Cecilio Ball [facility] Start: 07-10-2023 End: 07-10-2023 ambulatory Cecilio Ball Other [facility] Other Start: 07-10-2023 Office outpatient vi sit 15 minutes Cecilio Ball [facility] Start: 06-20-2023 End: 06-20-2023 ambulatory Cecilio Ball Other [facility] Other Start: 06-20-2023 Office outpatient vi sit 25 minutes Cecilio Ball [facility] Start: 06-15-2023 End: 06-15-2023 ambulatory Cecilio Ball Other [facility] Other Start: 06-15-2023 Telephone encounter Cecilio Ball [facility] Start: 05-30-2023 End: 05-30-2023 ambulatory Cecilio Ball Other [facility] Other Start: 05-30-2023 Office outpatient vi sit 15 minutes Cecilio Ball [facility] Start: 03-20-2023 Telephone encounter David Jaeger DO Work Phone: [facility] Comment on above: Follow Up Phone Call Start: 03-15-2023 End: 03-15-2023 ambulatory DAVID JAEGER Facility:[facility] Start: 02-27-2023 Orders Only David Marcos DO Work Phone: Procedures Comment on above: Pseudoclaudication s yndrome (Primary Dx); Lumbar radiculopathy Start: 02-26-2023 Telephone encounter David Jaeger DO Work Phone: [facility] Comment on above: Procedure Start: 02-19-2023 Telephone encounter David Sis Faheem DO Work Phone: [facility] Comment on above: Appointment Start: 02-14-2023 End: 02-14-2023 ambulatory Cecilio Benjamin Other [facility] Other Start: 02-14-2023 Patient encounter procedure Cecilio Benjamin [facility] Start: 02-13-2023 End: 02-13-2023 ambulatory Cecilio Benjamin Other [facility] Other Start: 02-13-2023 Telephone encounter Cecilio DENISE [facility] Start: 02-08-2023 End: 02-08-2023 ambulatory Cecilio Benjamin Other [facility] Other Start: 02-08-2023 Telephone encounter Cecilio DENISE [facility] Start: 02-01-2023 End: 02-01-2023 ambulatory Jose Enrique Leblanc II Other [facility] Other Start: 02-01-2023 Office outpatient vi sit 25 minutes Jose Enrique Leblanc II [facility] Start: 12-11-2022 End: 12-11-2022 ambulatory Cecilio Benjamin Other [facility] Other Start: 12-11-2022 Office outpatient vi sit 15 minutes Cecilio Benjamin [facility] Start: 11-09-2022 End: 11-09-2022 ambulatory Jose Enrique Leblanc II Facility:[facility] Start: 11-09-2022 End: 11-09-2022 Patient encounter procedure MD Jose Enrique Leblanc II Work Phone: [facility] Start: 11-09-2022 End: 11-09-2022 ambulatory MD Jose Enrique Leblanc II Work Phone: [facility] Work Phone: Start: 11-09-2022 Office outpatient ne w 45 minutes Jose Enrique Leblanc II [facility] Start: 11-09-2022 Office outpatient vi sit 15 minutes Cecilio Benjamin [facility] Start: 11-05-2022 End: 11-05-[address] CECILIO BENJAMIN Facility:[facility] Start: 10-12-2022 End: 10-12-2022 ambulatory Cecilio Benjamin Other [facility] Other Start: 10-12-2022 Office outpatient vi sit 25 minutes Cecilio Benjamin [facility] Start: 09-27-2022 End: 09-27-2022 ambulatory Cecilio Benjamin Other [facility] Other Start: 09-27-2022 Telephone encounter Cecilio DENISE [facility] Start: 09-26-2022 End: 09-27-[address] CECILIO BENJAMIN Facility:[facility] Start: 08-25-2022 End: 08-25-2022 ambulatory Cecilio Benjamin Other [facility] Other Start: 08-25-2022 Telephone encounter Cecilio DENISE [facility] Start: 08-10-2022 End: 08-10-[address] CECILIO BENJAMIN Facility:[facility] Start: 02-09-2022 End: 02-10-[address] CECILIO BENJAMIN Facility:[facility] Start: 12-06-2021 End: 12-07-[address] CECILIO BENJAMIN Facility:[facility] Start: 01-22-2018 End: 04-20-2018 Patient encounter [id number] AUGUSTINE BENJAMIN Facility:[facility] Procedures Date Procedure Procedure Detail Performing Clinician Start: 11-09-2022 Pelvis X-ray MD Jose Enrique Leblanc II Work Phone: Start: 11-09-2022 Radiologic examinati on of knee MD Jose Enrique Leblanc II Work Phone: Plan of Treatment Date Care Activity Detail Author Start: 01-22-2024 Patient referral [facility] Work Phone: Start: 04-20-2023 Influenza vaccination INFLUENZA (#1) [place] Start: 10-01-2022 COVID-19 VACCINE (5 - Moderna series) COVID-19 VACCINE (5 - Moderna series) [place] Start: 08-20-2022 ADVANCE DIRECTIVE DISCUSSION ADVANCE DIRECTIVE DISCUSSION [place] Start: 08-20-2022 DEPRESSION ASSESSMENT DEPRESSION ASS ESSMENT [place] Start: 09-19-2021 COVID-19 VACCINE (4 - Booster for Moderna series) COVID-19 VACCINE (4 - Booster for Moderna series) [place] Start: 09-19-2021 COVID-19 VACCINE (4 - Moderna series) COVID-19 VACCINE (4 - Moderna series) [place] Start: 01-02-2021 DIABETES SCREEN DIABETES SCREEN [facility] Start: 1991 SHINGRIX VACCINE (1 of 2) SHINGRIX VACCINE (1 of 2) [place] Start: 1960 Urine microalbumin profile DTAP,TDAP,TD (1 - Tdap) [place] Start: 1959 SPIROMETRY SPIROMETRY [place] Start: 1947 PNEUMOCOCCAL: 65+ (1 - PCV) PNEUMOCOCCAL: 65+ (1 - PCV) [place] Comprehensive metabo lic 2000 panel - Serum or Plasma [facility] Patient referral [facility] Work Phone: SPINE INTERVENTION PROCEDURE SPINE INTERVENTION PROCEDURE Procedures Routine Spinal stenosis, lumbar region with neurogenic claudication Lumbar radiculopathy, chronic Ordered: 02/19/2023 [facility] Work Phone: Comment on above: Ordered: 02/19/2023 [facility] Immunizations Immunization Date Immunization Notes Care Provider Fa cility 05-30-2023 COVID-19 Vaccine Moderna - Documentation Purposes Only Cecilio Sourav Other [facility] 05-30-2023 influenza virus vaccine, unspecified formulation [facility] 05-30-2023 influenza, high dose seasonal, preservative-free Cecilio Benjamin Other [facility] Other 06-13-2022 influenza virus vaccine, split virus (incl. purified surface antigen) Cecilio Bnejamin Other [facility] Other 06-13-2022 influenza virus vaccine, unspecified formulation [facility] 06-13-2022 influenza, high dose seasonal, preservative-free Jose Enrique Dos Palos II Other [facility] Other 05-31-2022 COVID-19 Pfizer (bivalent) Jose Enrique Dos Palos II Other [facility] 05-31-2022 COVID-19 Pfizer (Pediatric) Cecilio Benjamin Other [facility] 07-25-2021 COVID-19 Vaccine Moderna - Documentation Purposes Only Jose Enrique Dos Palos II Other [facility] 05-03-2021 zoster vaccine recombinant Jose Enrique Dos Palos II Other [facility] 05-03-2021 zoster vaccine, live Benjami n Ball Other [facility] 01-28-2021 zoster vaccine recombinant Jose Enrique Benji II Other [facility] 01-28-2021 zoster vaccine, live Benjami n Ball Other [facility] 10-25-2020 COVID-19 Vaccine Moderna - Documentation Purposes Only Jose Enrique Dos Palos II Other [facility] 09-27-2020 COVID-19 Vaccine Moderna - Documentation Purposes Only Jose Enrique Benji II Other [facility] 05-24-2020 influenza virus vaccine, split virus (incl. purified surface antigen) Cecilio Benjamin Other [facility] Other 05-24-2020 influenza virus vaccine, unspecified formulation [facility] 01-03-2019 diphtheria, tetanus toxoids and acellular pertussis vaccine, unspecified formulation Cecilio Benjamin Other [facility] 12-25-2018 pneumococcal polysaccharide vaccine, 23 valent Jose Enrique Dos Palos II Other [facility] 04-30-2018 influenza virus vaccine, split virus (incl. purified surface antigen) Cecilio Benjamin Other [facility] Other 04-30-2018 influenza virus vaccine, unspecified formulation [facility] 04-09-2017 influenza virus vaccine, split virus (incl. purified surface antigen) Cecilio Benjamin Other [facility] Other 04-09-2017 influenza virus vaccine, unspecified formulation [facility] 05-31-2016 zoster vaccine, live Jose Enrique Dos Palos II Other [facility] 05-13-2016 influenza virus vaccine, split virus (incl. purified surface antigen) Cecilio Benjamin Other [facility] Other 05-13-2016 influenza virus vaccine, unspecified formulation [facility] 05-09-2015 influenza virus vaccine, split virus (incl. purified surface antigen) Cecilio Benjamin Other [facility] Other 05-09-2015 influenza virus vaccine, unspecified formulation [facility] 03-06-2015 pneumococcal conjuga te vaccine, 13 valent Jose Enrique Dos Palos II Other [facility] 05-07-2014 tetanus and diphther ia toxoids, adsorbed, preservative free, for adult use (5 Lf of tetanus toxoid and 2 Lf of diphtheria toxoid) Cecilio Benjamin Other [facility] 04-23-2013 tetanus and diphther ia toxoids, adsorbed, preservative free, for adult use (5 Lf of tetanus toxoid and 2 Lf of diphtheria toxoid) Cecilio Benjamin Other [facility] 08-21-2012 pneumococcal polysaccharide vaccine, 23 valent Cecilio Benjamin Other [facility] 12-12-2011 zoster vaccine, live Jose Enrique Benji II Other [facility] Payers Date Payer Category Payer Self-pay 2022 Unknown [id number] 2018 Medicare [id number] 2006 Medicare [id number] 2006 Unknown [id number] 1959 Medicare [id number] 2.1 [id number] 1959 Unknown [id number] 2.16. [id number] 1941 Unknown [id number] 2.16.84 [id number] 1941 Unknown [id number] 2.16.84 [id number] 1941 Unknown [id number] 2.16.84 [id number] 1941 Unknown [id number] 2.16.84 [id number] 1941 Unknown [id number] 2.16.84 [id number] 1941 Unknown [id number] 2.16. [id number] 1941 Unknown [id number] 2.16. [id number] 1941 Unknown [id number] 2.16. [id number] Unknown [id number] 2.16.8 [id number] Social History Date Type Detail Facility Start: 05-09-2021 End: 03-15-2023 Sex Assigned At [place] Start: 1940 Sex Assigned At Male F [facility] Start: 06-13-2017 End: 01-22-2024 Tobacco smoking status NHIS Never smoked tobacco [place] Start: 06-13-2017 Tobacco use and exposure Smokeless tobacco non-user [place] Start: 05-09-2021 Alcohol intake Current drinke r of alcohol (finding) [place] Start: 12-11-2017 Alcohol Comment Katie[employer] in coffee C [facility] Start: 1940 Sex Assigned At Not on file C [facility] Start: 05-09-2021 End: 03-15-2023 History of Social function [place] Adult Depression Screening Assessment 1 [place] [facility] Equipment Procedure Code Equipment Code Equipment Origin al Text Equipment Identifier Dates Sabina Swivelock Tenodesis 8mm Biocomposite 19.5mm Suture [place] Eyelet - [id number] Start: 06-29-2017 Sleeve V40 +0mm Offset [place] Taper Titanium Adapter Hip - [id number] Start: 01-01-2018 Screw Trident Secur-Fit Torx 6.5mm Titanium 20mm Bone Sterile Acetabular - [id number] Start: 01-01-2018 Clinical Notes 08-25-2022 to 01-22-2024 Note Date & Type Note Facility 01-22-2024 Evaluation note Diagnosis Onset Date Chronic bronchitis, simple a cute Chronic kidney disease, stage 3a acute Elevated cholesterol acute Generalized anxiety disorder acute Hypertension acute Lumbar spondylolysis acute Obstructive sleep apnea acut e Medicare annual wellness visit, subsequent noneactive [facility] Work Phone: 1(901) 761-496602-09-2024 Evaluation note* Encounter Date Diagnosis Assessment Notes [...] and clinically improving, no further treatment necessary [facility] Other 02-02-2024 Evaluation note* Encounter Date Diagnosis Assessment Notes Treatment Notes Treatment Clinical Notes Sep, Carotid bruit, unspecified laterality (ICD-10 - R09.89) [facility] Other 01-23-2024 Evaluation note* Encounter Date Diagnosis [...] tid Initiate Prednisone _update office on Sunday [facility] Other 01-15-2024 Evaluation note* Encounter Date Diagnosis Assessment Notes Treatment Notes Treatment Clinical Notes Aug, JONATHAN (generalized anxiety disorder) (ICD-10 - F41.1) [facility] Other 12-13-2023 Evaluation note* Encounter Date Diagnosis [...] best 2/3 readings w/ goal < 135/85 [facility] Other 11-28-2023 Evaluation note* Encounter Date Diagnosis [...] daily for blisters and ulcerations. Moisturizers daily [facility] Other 11-21-2023 Evaluation note* Encounter Date Diagnosis [...] Call if develop increased pain or erythema [facility] Other 11-01-2023 Evaluation note* Encounter Date Diagnosis [...] use, the patient reduces the risk for ND, CVA, HTN, cardiac dysrhythmias and sudden cardiac [...] very active. No change in medical treatment [facility] Other 10-27-2023 Evaluation note* Encounter Date Diagnosis Assessment Notes Treatment Notes Treatment Clinical Notes May, JONATHAN (generalized anxiety disorder) (ICD-10 - F41.1) [facility] Other 10-11-2023 Evaluation note* Encounter Date Diagnosis [...] They may safely use Tylenol as needed. [facility] Other 08-01-2023 Miscellaneous Notes* Telephone Encounter - Neida Porter MA - 03/20/2023 12:26 PM EDT DATE OF SERVICE: 03/15/2023 PATIENT'S PHONE NUMBERS: [phone] (home) OR @[email or web address]@ PROVIDER: Dr. Jaeger PROCEDURE: Elective Pain Management Procedure Left message on machine Asked pt to call back and speak with the specialty triage nurse with update. Please obtain percentage better and the duration of improvement. Please inquire if there were any problems afterwards. Neida Brink documented in this encounterCenterville07-10-2023 Miscellaneous Notes* Telephone Encounter - Linda Knox LPN - 02/26/2023 4:42 PM EDT Spoke to patient in [place] to pre procedure instructions. Pt must have a goat driver. Pt advised to arrive 30 min [...] okay to take. Advised on location of [address] Pt will receive a follow up call several days after by a steam engineer. If you experience any increase in weakness, difficulty walking or significant increase in pain thatlast more than 4 hours, please proceed to the Emergency Room and tell them you had a spine procedure done recently. Additionally, call us and notify us of these symptoms. Please call [phone] if you have any questions. Pt verbalized understanding. documented in this encounterCenterville07-03-2023 Miscellaneous Notes* Telephone Encounter - Linda Knox LPN - 02/19/2023 11:57 AM EDT Order approved Spoke to daughter in [facility] to pre procedure instructions. Daughter given scheduling number [phone] Pt must have a goat driver. Pt advised to arrive 30 min prior to the time given by the nutritionist public health. Pt advised will also receive a call the day before from the surgery center to confirm date/time. Pt can eat and drink as normal. and Pt can take medications as normal. No alcohol 24 hours prior. Pt is on ASA.- 81 mg okay to take. and must Advised on location of [address] Pt will receive a follow up call several days after by a steam engineer. If you experience any increase in weakness, difficulty walking or significant increase in pain thatlast more than 4 hours, please proceed to the Emergency Room and tell them you had a spine procedure done recently. Additionally, call us and notify us of these symptoms. Please call [phone] if you have any questions. Pt verbalized [...] Celi as patient cannot hear well [phone] Patient has been identified by name and birthdate. Duration of symptoms: N/A Person calling: daughter: Celi Call patient at: N/A [phone] (home) [phone] (cell) Was an appointment scheduled: No Closing statement: Results or non-symptom based questions: Thank you for calling [place], your call will be returned within the next business day. Camilla Jarrell Pss documented in this encounterCenterville06-28-2023 Evaluation note* Encounter Date Diagnosis Assessment Notes [...] use, the patient reduces the risk for ND, CVA, HTN, cardiac dysrhythmias and sudden cardiac [...] (ICD-10 - F41.1) Healthy diet, keep active [facility] Other 06-22-2023 Evaluation note* Encounter Date Diagnosis Assessment Notes Treatment Notes Treatment Clinical Notes Jan, Elevated cholesterol (ICD-10 - E78.00) Jan, Stage 3a chronic kidney disease (ICD-10 - N18.31) Jan, Primary hypertension (ICD-10 - I10) Jan, Screening PSA (prostate specific antigen) (ICD-10 - Z12.5) Jan, High risk medication use (ICD-10 - Z79.899) [facility] Other 06-15-2023 Evaluation note* Encounter Date Diagnosis [...] this time 6. Follow up as needed [facility] Other 04-24-2023 Evaluation note* Encounter Date Diagnosis [...] use of statin, experiencing ADR and stopped [facility] Other 03-23-2023 Evaluation note* Encounter Date Diagnosis [...] - M17.12) Quad exercises, ice/heat and Tylenol [facility] Other 03-23-2023 Evaluation note* Encounter Date Diagnosis [...] injection well. 6. 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) [facility] Other 01-06-2023 Evaluation note* Encounter Date Diagnosis Assessment Notes Treatment Notes Treatment Clinical Notes Aug, Carotid bruit, unspecified laterality (ICD-10 - R09.89) [facility] Other Evaluation noteNo assessment information available [facility] Work Phone: Evaluuvfzp noteNo InformationN[employer] Other Evaluation note* Diagnosis Spinal stenosis, lumbar region with neurogenic claudication- Primary Lumbar radiculopathy, chronic Thoracic or lumbosacral neuritis or radiculitis, unspecified documented in this encounter [place]* Diagnosis Pseudoclaudication syndrome- Primary Spinal stenosis, lumbar region, with neurogenic claudication Lumbar radiculopathy Thoracic or lumbosacral neuritis or radiculitis, unspecified Pseudoclaudication syndrome Spinal stenosis, lumbar region, with neurogenic claudication Lumbar radiculopathy Thoracic or lumbosacral neuritis or radiculitis, unspecified documented in this encounter [facility] Narrative - Reported* Type Description Date [...] JANELLE 06/2017 Hospitalization History see surgical history [facility] Other Hospital Discharge instructionsAmbulatory Orders* Referral to Pain Management Location: None [facility] Work Phone: Summary Purpose Family History No [...] section and content) DATE CREATED AUTHOR 02/06/2018 [facility] DATE CREATED AUTHOR AUTHOR'S ORGANIZ ATION 06/10/2018 [facility] DATE CREATED AUTHOR AUTHOR'S ORGANIZ ATION 11/06/2022 [facility] DATE CREATED AUTHOR AUTHOR'S ORGANIZ ATION 12/21/2022 [facility] DATE CREATED AUTHOR AUTHOR'S ORGANIZ ATION 03/15/2023 [facility] DATE CREATED AUTHOR AUTHOR'S ORGANIZ ATION 03/22/2023 [facility] DATE CREATED AUTHOR AUTHOR'S ORGANIZ ATION 03/08/2024 [facility] REASON FOR VISIT (unrecogniz ed section and content) Reason Comments Appointment Reason Comments Procedure Reason Comments Follow Up Phone Call Care Teams (unrecognized sec tion and content) Team Status: Inactive Member Role Status Dates Jose Enrique Leblanc II, MD Attending Provider Active Machine Or Machinery Mechanic Relationship Specialty Start Date End Date Cecilio Benjamin DO PCP - General Internal Medicine 09/04/13 Machine Or Machinery Mechanic Relationship Specialty Start Date End Date Cecilio Benjamin DO PCP - General Internal Medicine 09/04/13 Machine Or Machinery Mechanic Relationship Specialty Start Date End Date Cecilio Benjamin DO PCP - General Internal Medicine 09/04/13 Machine Or Machinery Mechanic Relationship Specialty Start Date End Date Cecilio [...] or prosecute any alcohol or drug abuse patient.[place] the event this information is protected by the Federal Confidentiality of Alcohol and Drug Abuse Patient Records regulations: The Federal rules restrict any use of the information to criminally investigate or prosecute any alcohol or drug abuse patient.[place] the event this information is protected by the Federal Confidentiality of Alcohol and Drug Abuse Patient Records regulations: The Federal rules restrict any use of the information to criminally investigate or prosecute any alcohol or drug abuse patient.[place] the event this information is protected by the Federal Confidentiality of Alcohol and Drug Abuse Patient Records regulations: The Federal rules restrict any use of the information to criminally investigate or prosecute any alcohol or drug abuse patient.[place] FOR RECORDS PERTAINING TO PATIENTS WHO ARE [...] BE BASED ON THE PRIMARY CLINICAL RECORDS. [facility] [employer] [facility]. provides no warranty or guarantee of the accuracy or completeness of information in this document.
--- NOTE | 2024-03-13 12:29 | P.CN_ITS ---
Consult Note: HPI Data of Consult Patient: known to practice within the last 3 years Consult date: 02/11/24 Requesting Physician: Erica Hope NP Primary Care Provider: Cecilio Benjamin DO Consult Narrative Reason for consult: low back pain Narrative: 83yom who presents for assessment. continues to have pain throughout low back with weakness in lower extremities. imaging reviewed, which is significant for multilevel stenosis, worst at l4-5, where there is also disc bulge. also multilevel spondylosis and facet arthropathy noted. continues to stay very active and engage in chiropractic therapy as needed. uses otc meds as needed. recently underwent bilateral L4-5 L5-S1 MBB #1 with >80% improvement in pain and functional ability immediately following and 6 hours after cc:: CC: Erica Hope NP Review of Systems ROS Status of ROS 10 or more systems reviewed and unremark able except as noted in history and below Musculoskeletal Reports: back pain PFSH PFS Medical History (Updated 02/25/24 @ 10:56 by Joann Gifford) Low back pain ?M54.50 - Low back pain, unspecified (ICD-10) Heartburn ?R12 - Heartburn (ICD-10) Sleep apnea ?G47.30 - Sleep apnea, unspecified (ICD-10) COPD (chronic obstructive pulmonary disease) ?J44.9 - Chronic obstructive pulmonary disease, unspecified (ICD-10) Asthma ?J45.909 - Unspecified asthma, uncomplicated (ICD-10) Hypertension ?I10 - Essential (primary) hypertension (ICD-10) Surgical History H/O cervical spine surgery ?Z98.890 - Other specified postprocedural states (ICD-10) S/P tonsillectomy and adenoidectomy ?Z90.89 - Acquired absence of other organs (ICD-10) History of ankle surgery ?Z98.890 - Other specified postprocedural states (ICD-10) S/P cholecystectomy ?Z90.49 - Acquired absence of other specified parts of digestive tract (ICD- 10) S/P total hip arthroplasty ?Z96.649 - Presence of unspecified artificial hip joint (ICD-10) History of surgery on upper extremity ?Z98.890 - Other specified postprocedural states (ICD-10) Meds Home Medications and Allergies Home Medications ?Medication ?Instructions ?Recorded ?Confirmed ?Type albuterol sulfate 90 mcg/actuation 2 inh inhalation Q8H PRN shortness 01/28/24 03/10/24 History aerosol inhaler (Ventolin HFA) of breath or wheezing amlodipine 2.5 mg tablet 2.5 mg PO DAILY 01/28/24 03/10/24 History clonazepam 0.5 mg tablet 0.5 mg PO DAILY 01/28/24 03/10/24 History escitalopram oxalate 10 mg tablet 10 mg PO DAILY 01/28/24 03/10/24 History (Lexapro) fluticasone propionate 110 1 inh inhalation BID 01/28/24 03/10/24 History mcg/actuation HFA aerosol inhaler nabumetone 500 mg tablet 500 mg PO BID 01/28/24 03/10/24 History omeprazole 20 mg capsule,delayed 20 mg PO DAILY 01/28/24 03/10/24 History release tamsulosin 0.4 mg capsule (Flomax) 0.4 mg PO DAILY 01/28/24 03/10/24 History Allergies Allergy/AdvReac Type Severity Reaction Status Date / Time bacitracin AdvReac Mild Rash Verified 03/10/24 08:21 Exam Narrative Exam Narrative: Psych-alert and oriented x 3. Attentive and appropriate, constitutionally normal, displays normal mood and affect per situation.? There are no obvious deficits in memory, reasoning, or intellect.? Skin-no obvious rashes, bruising, erythema noted to the patient's area of pain. Extremities- extremities are warm with minimal edema and palpable pulses. Lumbar-no significant tenderness to palpation noted in the lumbar spine and paraspinal musculature.? Pain is elicited with extension, and lateral rotation of the lumbar spine. Range of motion is slightly diminished with these motions due to pain. Facet loading maneuvers are positive bilaterally and do appear to be concordant with the patient's normal complaints of pain.? Coordination remains intact.? Gait remains non-antalgic. Constitutional Documenting provider has reviewed patient's vital signs: yes Common normals: no apparent distress, oriented x3, healthy appearing, alert and well nourished General appearance: cooperative HENMT Common normals: normocephalic, hearing grossly normal bilaterally and moist oral mucous membranes Head and scalp: normocephalic Eye Common normals: PERRL Pupil: PERRL Neck & C-Spine Common normals: full ROM General: normal visual inspection Chest Common normals: inspection of chest normal Respiratory Common normals: normal respiratory effort, no retractions and no use of accessory muscles Neuro Common normals: oriented x3, CN's II-XII intact bilaterally, moves all extremities, no focal motor deficits, no sensory deficits noted and deep tendon reflexes 2+ bilaterally Sensorium/orientation: alert Motor exam: strength 5/5 throughout and no movement abnormalities noted Psych Common normals: mental status grossly normal, thought process normal, cooperative, affect normal, speech normal and activity/motor behavior normal Speech: normal speech Thought process: normal thought process Assessment and Plan Assessment and Plan (1) Lumbar spondylosis: (2) Lumbar stenosis with neurogenic claudication: Plan 83yom who presents for assessment. failed conservative measures, as noted. imaging reviewed, as noted. given symptoms and imaging, prudent to attempt bilateral l4-5 l5-s1 mbbx2 working towards RFA, to be completed under fluoroscopy risks vs benefits reviewed. he is in agreement. meds reviewed, no changes. follow up after procedure.
== END 2024-03-13 11:41 | disposition home or self-care (01) ==
LOC: PM 11:40
PROVIDERS: PCP Internal Medicine; Visit Provider Nurse Practitioner
DX: M47.816 Spondylosis without myelopathy or radiculopathy, lumbar region (principal); M48.062 Spinal stenosis, lumbar region with neurogenic claudication
CPT/HCPCS: G0463

== ENCOUNTER 2024-03-24 11:50 | Day surgery (SDC) | payer MEDICARE, OTHER, SELFPAY ==
[2024-03-24 12:05] VITALS: BP 137/74; PULSE 69; TEMP 36.6; O2SAT 98
[2024-03-24] MEDS: LIDOCAINE HCL 2% 400 MG/20 ML MDV 15 ML INJ (12:25)
[2024-03-24] MEDS: BUPIVACAINE HCL 0.25% PF 25 MG/10 ML VIAL INJ (12:25)
[2024-03-24 12:26] VITALS: BP 146/70; BP 147/71; PULSE 58; O2SAT 98
--- NOTE | 2024-03-24 12:28 | W.PM.PROCNOT ---
Date of procedure: 03/24/24 Pre-op diagnosis: Pain due to lumbar spondylosis without myelopathy Post-op diagnosis: same as pre-op Procedure: Procedure: Bilateral L4-5, L5-S1 medial branch block Medications: Bupivacaine 0.25% 6cc The patient was seen and examined in the preoperative holding area.? An informed consent was obtained and placed on the chart.? The patient was brought to the medical procedure unit and placed in the prone position.? A timeout was completed verifying correct patient, procedure site, positioning, plan, and special equipment.? Using aseptic technique, the needle was placed at left L4. Under direct fluoroscopic visualization a Quincke-tipped spinal needle was advanced to the junction of the superior articulating process with the transverse process at the designated medial branch segment.? Preceded by negative aspiration, the above-mentioned injectate was placed in 1 mL aliquots.? The procedure was repeated at left L5, S1.? The needle was removed and insertion site was covered. The same procedure, at the same levels, was completed on the right side. The patient was taken to the postprocedural recovery area and monitored for an appropriate length of time before found suitable for discharge in the company of a responsible adult. Anesthesia: Local Surgeon: Maddie Villalobos Pathology: none sent Condition: stable Disposition: no change
== END 2024-03-24 12:31 | disposition home or self-care (01) ==
LOC: SURGOUT 11:52
PROVIDERS: PCP Internal Medicine; Visit Provider Anesthesiology
DX: M47.816 Spondylosis without myelopathy or radiculopathy, lumbar region (principal)
CPT/HCPCS: 64493; 64494; J0665

== ENCOUNTER 2024-03-31 13:57 | Outpatient (OUT) | payer MEDICARE, OTHER, SELFPAY ==
--- OUTSIDE RECORDS SUMMARY | 2024-03-31 14:02 | XMS_ITS | CCD ---
Author Organization [facility] Care Team Providers Care Ct Tech Name Role Phone CECILIO [phone] UNKNOWN Unavailable Unavailable BETH GOODEN Unavailable Unavailable BETH GOODEN Unavailable Unavailable GIACOMO, [...] MD Jose Enrique Leblanc II Attending Provider [phone] Jose Enrique Leblanc II Unavailable Jose Enrique [...] bacitracin; Translations: [bacitracin] Drug Allergy 09-11-2013 Unknown [facility] Repository (19 sources) Albuterol Drug Allergy Unknown [employer] Other (20 sources) HMG-CoA reductase inhibitor Drug allergy Unknown [employer] [facility] Other Medications Current Medications Medication Drug Class(es) [...] uth every 8 hours. (Mild pain reliever) [id number] 200 actuat albuterol 0.09 mg/actuat metered dose inhaler (11 sources) beta2-Adrenergic Agonist Start: 4 End: take 2.5 mg by inhalation every four to six hours Albuterol Sulfate Active 2.5 MG INHALATION EVERY 4-6 HOURS 540 90 October 30, 2023 1:20pm Start: 10-10-2023 End: 01-22-2024 take 1 puff(s) by inhalation every four to six hours Albuterol Sulfate Active 2 PUFF INHALATION EVERY 4-6 HOURS 8.5 30 January 22, 2024 9:28am Start: 09-28-2023 Albuterol [...] tablet (20 sources) Serotonin Reuptake Inhibitor Start: End: take 10 mg by mouth once [...] daily Tamsulosin Discontinued 0.4 MG PO Daily October 19, 2023 11:08am January 07, 2024 [...] on above: Take 4 tablets by mo [facility] 1 hour prior to procedure [...] Comment on above: Take 1 tablet by [facility] once daily. COMPOUNDED PRESCRIPTION (4 sources) COMPOUNDED [...] on above: Take 1 capsule by mo [facility] twice daily. (Stool softener) doxycycline hyclate 100 mg oral capsule (15 sources) Tetracycline-class Drug Start: 10-17-2023 End: 10-19-2023 take 100 mg by mouth twice daily Doxycycline Hyclate Discontinued 100 MG PO Twice daily October 17, 2023 1:00am October 19, 2023 11:06am Start: 07-10-2023 take 1 capsule by [facility] every twelve hours Doxycycline Hyclate 100 MG [...] on above: Take 2 tablets by mo [facility]. Take 2 tablets by mo [facility] daily at bedtime. methylPREDNISolone (1 [...] 01-22-2024 Episodic Other aftercare (2 sources) Other continuous churn buttermaker (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 therapy; Translations: [OT SENIOR LIVING CURRENT DRUG THERAPY] Onset: 11-06-2022 Episodic Other circulatory disease (7 sources) Elevated blood-pressure reading without diagnosis of hypertension; Translations: [Elevated blood-pressure reading, without diagnosis of hypertension] Episodic Other circulatory disease (6 sources) Other specified symptoms and signs involving the circulatory and respiratory systems; Translations: [OT SPEC SX SIGNS INVLV CIRC RS] Onset: [...] Value Interpretation Reference Range Facility [facility] 03-20-2023 [facility] RUPERTO THORPE ([id number]) 1940 [place]* Date Time Provider Department 03/20/23 DAVID JAEGER SPNMAV During your visit today, we recorded the following information about you: Neida Porter MA 03/20/2023 12:30 PM Signed DATE OF SERVICE: 03/15/2023 PATIENT'S PHONE NUMBERS: [phone] (home) OR @WKPH@ PROVIDER: Dr. Jaeger PROCEDURE: [...] work Requesting to call his CELL ONLY [phone] what to do next Leave Detailed messages [...] of spine injection schedulers to call at [phone]. Patient will call if he wants to schedule another injection. 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 Author [...] offered a procedure / surgery at a [facility] facility. Patient and I have [...] surgery/procedure as indicated on the consent form. [facility] approved time out was performed identifying the site, side and level of procedure prior to start of procedure. [facility] - ELECTIVE PROCEDURE Lumbar Transforaminal Epidural Steroid [...] the entire procedure. David Jaeger DO, MBA [facility] CNPN Telephone (SPNMAV) RUPERTO THORPE ([id number]) 1940 Jill Marie* Date Time Provider Department 02/26/23 DAVID JAEGER SPJEREMYAV During your visit today, we recorded the following information about you: Linda Knox LPN 02/26/2023 4:49 PM Signed Spoke to patient in [facility] to pre procedure instructions. Pt must have a jitney driver. Pt advised to arrive 30 min [...] take. Advised on location of ASC-2nd floor [facility] Pt will receive a follow up call several days after by a stationary steam engineer. If you experience any increase in weakness, difficulty walking or significant increase in pain that last more than 4 hours, please proceed to the Emergency Room and tell them you had a spine procedure done recently. Additionally, call us and notify us of these symptoms. Please call [phone] if you have any questions. Pt verbalized [...] Status:Closed by LINDA KNOX LPN on [facility]23 [facility] CNPN Telephone (SPNMAV) RUPERTO THORPE ([id number]) 1940 [place] [employer]* Date Time Provider [...] call Celi as patient cannot hear well [phone] Patient has been identified by name and birthdate. Duration of symptoms: N/A Person calling: daughter: Celi Call patient at: N/A [phone] (home) [phone] (cell) Was an appointment scheduled: No Closing statement: Results or non-symptom based questions: Thank you for calling [facility], your call will be returned within the next business day. Camilla Knox LPN 02/19/2023 9:45 AM Signed Spine Intervention order formatted for review Linda Knox LPN 02/19/2023 11:59 AM Signed Order approved Spoke to daughter in [facility] to pre procedure instructions. Daughter given scheduling number [phone] Pt must have a jitney driver. Pt advised to arrive 30 min prior to the time given by the computer processing scheduler. Pt advised will also receive a call the day before from the surgery center to confirm date/time. Pt can eat and drink as normal. and Pt can take medications as normal. No alcohol 24 hours prior. Pt is on ASA.- 81 mg okay to take. and must Advised on location of ASC-2nd floor [facility] Pt will receive a follow up call several days after by a stationary steam engineer. If you experience any increase in weakness, difficulty walking or significant increase in pain that last more than 4 hours, please proceed to the Emergency Room and tell them you had a spine procedure done recently. Additionally, call us and notify us of these symptoms. Please call [phone] if you have any questions. Pt verbalized understanding. 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 Normal [facility] XR knee LT 4V*on 11-09-2022 XR knee LT 4V* [facility] [place] [address] XRay Report Signed Patient: Ruperto Thorpe MR#: [id number] 5 : 1940 Acct:[id number] Age/Sex: 82 / M ADM Date: 11/09/22 Loc: [facility] Room: Type: [facility] Attending Dr: Jose Enrique Leblanc II, MD [...] Darren Yuen M.D.11/09/2022 5:03 PM Dictation Location: [place] [address] Transcribed By: [facility] 11/09/221702 Dictated By: Darren Yuen II, MD 11/09/221700 Signed By: 11/09/22 170 [facility] XR knee LT 4V* [facility] [employer] Other XR knee LT 4V* [facility] [employer] Other XR knee LT 4V* [address] [place] [address] [employer] Other XR knee LT 4V* [place] [id number] [facility] [employer] Other XR knee LT 4V* XRay Report [employer] Other XR knee LT 4V* Signed [employer] Other XR knee LT 4V* Patient: Ruperto Thorpe MR#: [id number] Melfa [employer] Other XR knee LT 4V* 5 [employer] Other XR knee LT 4V* : 1940 Acct:[id number] [employer] Other XR knee LT 4V* Age/Sex: 82 / M ADM Date: 11/09/22 [employer] Other XR knee LT 4V* Loc: [facility] Room: Type : [facility] [employer] Other XR knee LT 4V* Attending Dr: Jose Enrique Leblanc II, MD [employer] Other XR knee LT 4V* Copies to: Jose Enrique Leblanc MD [employer] Other XR knee LT 4V* Ordering Provider: Jose Enrique Leblanc MD [employer] Other XR knee LT 4V* Date of Service: 11/09/22 [employer] Other XR knee LT 4V* XR/XR knee LT 4V*: Acute pain of left knee [employer] Other XR knee LT 4V* XR knee LT 4V* 11/09/2022 3:15 PM [employer] Other XR knee LT 4V* SIGNS AND SYMPTOMS: Acute pain of left knee [employer] Other XR knee LT 4V* PROTOCOL: Frontal, lateral, oblique, and sunrise views of the left knee [employer] Other XR knee LT 4V* COMPARISON: 11/05/2022 [employer] Other XR knee LT 4V* FINDINGS: [employer] Other XR knee LT 4V* There is similar narrowing of the weightbearing joint spaces with chondrocalcinosis of the menisci [employer] Other XR knee LT 4V* suggesting underlyin g CPPD. There is narrowing of the patellofemoral joint space with spurring at [employer] Other XR knee LT 4V* the superior pole of patella. There is a small joint effusion. No soft tissue swelling. No acute [employer] Other XR knee LT 4V* displaced fracture. Vascular calcifications are present posteriorly. [employer] Other XR knee LT 4V* XR/XR knee LT 4V* [employer] Other XR knee LT 4V* IMPRESSION: [employer] Other XR knee LT 4V* Tricompartmental degenerative changes are noted in the left knee with a small joint effusion. [employer] Other XR knee LT 4V* There is chondrocalcinosis of the menisci suggesting underlying CPPD. [employer] Other XR knee LT 4V* Impression dictated by: Darren Yuen M.D.11/09/2022 5:03 PM [employer] Other XR knee LT 4V* Dictation Location: [place] [address] [employer] Other XR knee LT 4V* Transcribed By: COLIN 11/09/22 [facility] [employer] Other XR knee LT 4V* Dictated By: Darren Yuen II, MD 11/09/22 170 [employer] Other XR knee LT 4V* Signed By: [employer] Other XR knee LT 4V* 11/09/22 170 [employer] Other XR pelvis 1-2Von 11-09-2022 XR pelvis 1-2V [facility] [place] [address] [place] [address] XRay Report Signed Patient: Ruperto Thorpe MR#: [id number] 5 : 1940 Acct:[id number] Age/Sex: 82 / M ADM Date: 11/09/22 Loc: [facility] Room: Type: REG CLI Attending Dr: Jose Enrique Leblanc II, MD [...] Darren Yuen M.D.11/09/2022 5:01 PM Dictation Location: [facility]IO[facility]PC-12 Transcribed By: [facility] 11/09/221700 Dictated By: Darren Yuen II, MD 11/09/221699 Signed By: 11/09/221700 [facility] XR pelvis 1-2V XR/XR pelvis 1-2V: Acute pain of left knee [employer] Other XR pelvis 1-2V XR pelvis 1-2V 11/09/2022 3:15 PM [employer] Other XR pelvis 1-2V SIGNS AND SYMPTOMS: Left knee pain [employer] Other XR pelvis 1-2V PROTOCOL: Frontal radiograph of the chest [employer] Other XR pelvis 1-2V COMPARISON: None [facility] Other XR pelvis 1-2V There is mild narrowing of the left hip joint space with subcortical cystic change on both sides of [employer] Other XR pelvis 1-2V the joint along the acetabular there is chondrocalcinosis of the labrum overlying the superior [employer] Other XR pelvis 1-2V acetabular rim and superior lateral femoral head. The bony ring of the pelvis is intact. There is [employer] Other XR pelvis 1-2V total right hip arthroplasty. Degenerative changes are noted in the sacroiliac joints. No fracture [employer] Other XR pelvis 1-2V is [employer] Other XR pelvis 1-2V XR/XR pelvis 1-2V [employer] Other XR pelvis 1-2V Degenerative changes are noted in the left hip with findings suspicious for previous labral [employer] Other XR pelvis 1-2V pathology. [employer] Other XR pelvis 1-2V Postoperative change s are noted in the right hip with total right hip arthroplasty hardware. [employer] Other XR pelvis 1-2V Impression dictated by: Darren Yuen M.D.11/09/2022 5:01 PM [employer] Other XR pelvis 1-2V Transcribed By: COLIN 11/09/22 170 [employer] Other XR pelvis 1-2V Dictated By: Darren Yuen II, MD 11/09/22 [facility]0 [employer] Other XR pelvis 1-2V 11/09/22 1701 [employer] Other XR KNEE LT 4V or >on [...] There is chondrocalcinosis. Soft tissues: Unremarkable. IMPRESSION: Work-ox-kjnvjcbl osteoarthritis as described above. Chondrocalcinosis. No acute fracture or dislocation. Electronically authenticated by: CHUCK SANDRAJESSICA Date: 2022-11-05 11:19 Normal [facility] US CAROTID ART BILon 023 US CAROTID [...] JONAS MCLEOD Date: 2022-09-26 10:58 Normal [facility] CBC AUTO DIFFon 08-10-2022 BASO # 0.0 103/ul Normal 0.0-0.1 [facility] Comment on above: Performed By: #### C BC #### [facility] [address] [place] [address] Dr. Alexis Brink Basophils/100 WBC (Bld) 0.7 % Normal 0.2-2.0 [facility] Comment on above: Performed By: #### C BC #### [facility] [address] [place] [address] [address] Alexis Brink EO # 0.3 103/ul Normal 0.0-0.7 [facility] Comment on above: Performed By: #### C BC #### [facility] [address] [place] [address] [address] Alexis Brink Eosinophils/100 WBC (Bld) 6.1 % Normal 0.9-7.0 [facility] Comment on above: Performed By: #### C BC #### [facility] [address] [place] [address] Dr. Alexis Brink Erythrocyte distribution width (RBC) [Ratio] 12.1 % Normal 11.0-15.0 [facility] Comment on above: Performed By: #### C BC #### [facility] [address] [place] [address] Dr. Alexis Brink Hematocrit (Bld) [Volume fraction] 44.2 % Normal 42.0-54.0 [facility] Comment on above: Performed By: #### C BC #### [facility] [address] [place] [address] Dr. Alexis Brink Hemoglobin (Bld) [Mass/Vol] 14.9 g/dL Normal 14.0-18.0 [facility] Comment on above: Performed By: #### C BC #### [facility] [address] [place] [address] Dr. Alexis Brink IG # 0.01 10e3/ul Normal 0.00-0.03 [facility] Comment on above: Performed By: #### C BC #### [facility] [address] [place] [address] Dr. Alexis Brink IG % 0.2 % Normal 0.0-0.5 [facility] Comment on above: Performed By: #### C BC #### [facility] [address] [place] [address] Dr. Alexis Brink LYMPH # 1.2 103/ul Normal 1.2-3.8 [facility] Comment on above: Performed By: #### C BC #### [facility] [address] [place] [address] Dr. Alexis Brink Lymphocytes/100 WBC (Bld) 21.3 % Normal 20.5-60.0 [facility] Comment on above: Performed By: #### C BC #### [facility] [address] [place] [address] Dr. Alexis Brink MANUAL DIFF REQ NO Normal [facility] Comment on above: Performed By: #### C BC #### [facility] [address] [place] [address] Dr. Alexis Brink MCH (RBC) [Entitic mass] 30.7 pg Normal 25.9-34.0 [facility] Comment on above: Performed By: #### C BC #### [facility] [address] [place] [address] Dr. Alexis Brink MCHC (RBC) [Mass/Vol] 33.7 g/dL Normal 29.9-35.2 [facility] Comment on above: Performed By: #### C BC #### [facility] [address] [place] [address] Dr. Alexis Brink MCV (RBC) [Entitic vol] 91.1 fL Normal 80.0-94.0 [facility] Comment on above: Performed By: #### C BC #### [facility] [address] [place] [address] Dr. Alexis Brink MONO # 0.5 103/ul Normal 0.3-0.8 [facility] Comment on above: Performed By: #### C BC #### [facility] [address] [place] [address] Dr. Alexis Brink Monocytes/100 WBC (Bld) 8.5 % Normal 1.7-12.0 [facility] Comment on above: Performed By: #### C BC #### [facility] [address] [place] [address] Dr. Alexis Brink NEUT # 3.5 103/ul Normal 1.4-6.5 [facility] Comment on above: Performed By: #### C BC #### [facility] [address] [place] [address] Dr. Alexis Brink Neutrophils/100 WBC (Bld) 63.2 % Normal 43.0-75.0 [facility] Comment on above: Performed By: #### C BC #### [facility] [address] [place] [address] Dr. Alexis Brink Platelet mean volume (Bld) [Entitic vol] 10.0 fL Normal 9.5-13.5 [facility] Comment on above: Performed By: #### C BC #### [facility] [address] [place], [place] [address] Dr. Alexis Brink PLT 120 103/ul Critically low 150-450 [facility] Comment on above: Performed By: #### C BC #### [facility] [address] [place], [place] [address] Dr. Alexis Brink RBC 4.85 106/ul Normal 4.70-6.10 [facility] Comment on above: Performed By: #### C BC #### [facility] [address] [place], [place] [address] Dr. Alexis Brink WBC 5.6 103/ul Normal 4.0-11.0 [facility] Comment on above: Performed By: #### C BC #### [facility] [address] [place] [id number] Alexis Brink [facility]21 SARS-CoV-2 (COVID-19) RNA RICKY+probe Ql (Unsp spec) Not detected Normal NOT DETECTED [facility] Comment on above: Result Comment: This test is not yet approved or cleared by the [place] FDA. When there are no FDA-approved or cleared tests available, and other criteria are met, FDA can make tests available under an emergency access mechanism called an Emergency Use Authorization (EUA). The EUA for this test is supported by the [place] of Health and Human Service's (HHS's) declaration [...] with SARS-CoV-2. Performed By: #### C VDTBH ####[facility] [address] [place], [place] [address]JzDr. Alexis Brink INFLUENZA A AND B AGon 08-10 INFLUANEGH SEE BELOW Normal [facility] Comment on above: Result Comment: Nega tive for Flu A protein angiten. Infection due to Flu A cannot be ruled out. Flu A angiten in the sample may be below the detection limit of the test. Performed By: #### I NFLUAB ####[facility] [address] [place], [place] [address]Dr. Alexis Brink INFLUBNEGH SEE BELOW Normal [facility] Comment on above: Result Comment: Nega tive for Flu B protein antigen. Infection due to Flu B cannot be ruled out. Flu B antigen in the sample may be below the detection limit of the test. Performed By: #### I NFLUAB ####[facility] [address] [place], [place] [address]DrLainey Brink INFLUENZA A AG Negative Normal NEGATIVE SEE COMMENT [facility] Comment on above: Performed By: #### I NFLUAB ####[facility] [address] [place], [place] [address]Dr. Alexis Brink INFLUENZA B AG Negative Normal NEGATIVE SEE COMMENT [facility] Comment on above: Performed By: #### I NFLUAB ####[facility] [address] [place], [place] [address]DrLainey Brink INTERNAL CONTROLS Within Normal Limits Normal Wi thin Normal Limits [facility] Comment on above: Performed By: #### I NFLUAB ####[facility] [address] [place], [place] [address]DrLainey Brink PROF CHEM 8 (BAS METB)on Anion gap [Moles/Vol] 11.4 mmol/L Normal [facility] Comment on above: Performed By: #### B NARA, HSTROPN #### [facility] [address] [place] [address] Dr. Alexis Brink Calcium [Mass/Vol] 8.9 mg/dL Normal 8.5-10.1 [facility] [place] [facility] Comment on above: Performed By: #### B NARA, HSTROPN #### [facility] [address] [place] [address] Dr. Alexis Brink Chloride [Moles/Vol] 102 mmol/L Normal 98-107 [facility] Comment on above: Performed By: #### B NARA, HSTROPN #### [facility] [address] [place] [address] [address] Alexis Brink CO2 [Moles/Vol] 28.8 mmol/L Normal 21.0-32.0 [facility] Comment on above: Performed By: #### B NARA, HSTROPN #### [facility] [address] [place] [address] [address] Alexis Brink Creatinine [Mass/Vol] 1.35 mg/dL Critically high 0.70-1.30 [facility] Comment on above: Performed By: #### B NARA, HSTROPN #### [facility] [address] [place] [address] [address] Alexis Brink EGFR-AF COMORAN >60 Normal >=60 [facility] Comment on above: Performed By: #### B NAAR, HSTROPN #### [facility] [address] [place] [address] [address] Alexis Brink EGFR-NON AF COMORAN 51 mL/min/1.73m2 Critically low >=60 [facility] Comment on above: Performed By: #### B NARA, HSTROPN #### [facility] [address] [place] [address] Dr. Alexis Brink Glucose [Mass/Vol] 109 mg/dL Critically high 74-106 [facility] Comment on above: Performed By: #### B NARA, HSTROPN #### [facility] [address] [place] [address] [address] Alexis Brink Potassium [Moles/Vol] 4.2 mmol/L Normal 3.5-5.1 [facility] Comment on above: Performed By: #### B NARA, HSTROPN #### [facility] [address] [place] [address] [address] Alexis Brink Sodium [Moles/Vol] 138 mmol/L Normal 136-145 [facility] [place] [facility] Comment on above: Performed By: #### B NARA, HSTROPN #### [facility] [address] [place] [address] [address] Alexis Brink Urea nitrogen [Mass/Vol] 18.0 mg/dL Normal 7.0-18.0 [facility] Comment on above: Performed By: #### B MP, HSTROPN #### [facility] [address] [place] [address] [address] Alexis Brink Urea nitrogen/Creatinin e [Mass ratio] 13.3 mg/mg Normal [facility] Comment on above: Performed By: #### B MP, HSTROPN #### [facility] [address] [place] [address] [address] Alexis Brink TROPONIN, HIGH SENSITIVITYon 08-10-2022 HSTROP 22.2 pg/mL Normal 4.0-76.1 [facility] Comment on above: Result Comment: CUT- OFF POINTS HAVE BEEN ESTABLISHED BASED ON THE FOURTH UNIVERSAL DEFINITIONS OF MYOCARDIAL INFARCTION. THE UPPER REFERENCE LIMIT (URL) OF TROPONIN, DEFINED THE 99TH PERCENTILE OF cTnI DISTRIBUTION IN A REFERENCE POPULATION, HAS BEEN CONFIRMED THE DECISION THRESHOLD FOR AR DIAGNOSIS. Performed By: #### B MP, HSTROPN #### [facility] [address] [place] [address] Dr. Alexis Brink XR CHEST 1 Von [...] RADHA UNDERWOOD Date: 2022-08-10 16:07 Normal [facility] CBC AUTO DIFFon 02-09-2022 BASO # 0.0 103/ul Normal 0.0-0.1 [facility] Comment on above: Performed By: #### C BC #### [facility] [address] [place] [address] [address] Alexis Brink Basophils/100 WBC (Bld) 0.6 % Normal 0.2-2.0 [facility] Comment on above: Performed By: #### C BC #### [facility] [address] [place] [address] Dr. Alexis Brink EO # 0.5 103/ul Normal 0.0-0.7 [facility] Comment on above: Performed By: #### C BC #### [facility] [address] [place] [address] Dr. Alexis Brink Eosinophils/100 WBC (Bld) 7.2 % Critically high 0.9-7.0 [facility] Comment on above: Performed By: #### C BC #### [facility] [address] [place] [address] Dr. Alexis Brink Erythrocyte distribution width (RBC) [Ratio] 12.4 % Normal 11.0-15.0 [facility] Comment on above: Performed By: #### C BC #### [facility] [address] [place] [address] Dr. Alexis Brink Hematocrit (Bld) [Volume fraction] 45.5 % Normal 42.0-54.0 [facility] Comment on above: Performed By: #### C BC #### [facility] [address] [place] [address] Dr. Alexis Brink Hemoglobin (Bld) [Mass/Vol] 15.4 g/dL Normal 14.0-18.0 [facility] Comment on above: Performed By: #### C BC #### [facility] [address] [place] [address] Dr. Alexis Brink IG # 0.02 10e3/ul Normal 0.00-0.03 [facility] Comment on above: Performed By: #### C BC #### [facility] [address] [place] [address] Dr. Alexis Brink IG % 0.3 % Normal 0.0-0.5 [facility] Comment on above: Performed By: #### C BC #### [facility] [address] [address] [address] Alexis Brink LYMPH # 1.3 103/ul Normal 1.2-3.8 [facility] Comment on above: Performed By: #### C BC #### [facility] [address] [place] [address] Dr. Alexis Brink Lymphocytes/100 WBC (Bld) 17.8 % Critically low 20.5-60.0 [facility] Comment on above: Performed By: #### C BC #### [facility] [address] [place] [address] Dr. Alexis Brink MANUAL DIFF REQ NO Normal [facility] Comment on above: Performed By: #### C BC #### [facility] [address] [place] [address] Dr. Alexis Brink MCH (RBC) [Entitic mass] 31.4 pg Normal 25.9-34.0 [facility] Comment on above: Performed By: #### C BC #### [facility] [address] [place] [address] Dr. Alexis Brink MCHC (RBC) [Mass/Vol] 33.8 g/dL Normal 29.9-35.2 [facility] Comment on above: Performed By: #### C BC #### [facility] [address] [place] [address] Dr. Alexis Brink MCV (RBC) [Entitic vol] 92.9 fL Normal 80.0-94.0 [facility] Comment on above: Performed By: #### C BC #### [facility] [address] [place] [address] Dr. Alexis Brink MONO # 0.7 103/ul Normal 0.3-0.8 [facility] Comment on above: Performed By: #### C BC #### [facility] [address] [place] [address] Dr. Alexis Brink Monocytes/100 WBC (Bld) 9.6 % Normal 1.7-12.0 [facility] Comment on above: Performed By: #### C BC #### [facility] [address] [place] [address] Dr. Alexis Brink NEUT # 4.6 103/ul Normal 1.4-6.5 [facility] Comment on above: Performed By: #### C BC #### [facility] [address] [address] [address] Alexis Brink Neutrophils/100 WBC (Bld) 64.5 % Normal 43.0-75.0 [facility] Comment on above: Performed By: #### C BC #### [facility] [address] [address] [address] Alexis Brink Platelet mean volume (Bld) [Entitic vol] 10.7 fL Normal 9.5-13.5 [facility] Comment on above: Performed By: #### C BC #### [facility] [address] [place] [address] Dr. Alexis Brnik PLT 130 103/ul Critically low 150-450 [facility] Comment on above: Performed By: #### C BC #### [facility] [address] [address] [address] Alexis Brink RBC 4.90 106/ul Normal 4.70-6.10 [facility] Comment on above: Performed By: #### C BC #### [facility] [address] [address] [address] Alexis Brink WBC 7.1 103/ul Normal 4.0-11.0 [facility] Comment on above: Performed By: #### C BC #### [facility] [address] [place] [address] Dr. Alexis Brink DIRECT LDLon 02-09-2022 Cholesterol in LDL [Mass/Vol] 144 mg/dL Normal [facility] Comment on above: Performed By: #### D LDL, BMP ####[facility] [id number] [address]Dr. Alexis Brink DLDL NORMAL SEE BELOW Normal [facility] Comment on above: Result Comment: <100 mg/dl OPTIMAL 100 - 129 mg/dl NEAR OR ABOVE OPTIMAL 130 - 159 mg/dl BORDERLINE HIGH 160 - 189 mg/dl HIGH >190 mg/dl VERY HIGH Performed By: #### D LDL, BMP ####[facility] [id number] [place], [place] [address]RuDr. Alexis Brink PROF CHEM 8 (BAS METB)on Anion gap [Moles/Vol] 9.3 mmol/L Normal [facility] Comment on above: Performed By: #### D LDL, BMP #### [facility] [address] [address] [address] Alexis Brink Calcium [Mass/Vol] 8.7 mg/dL Normal 8.5-10.1 [facility] Comment on above: Performed By: #### D LDL, BMP #### [facility] [address] [address] [address] Alexis Brink Chloride [Moles/Vol] 103 mmol/L Normal 98-107 [facility] Comment on above: Performed By: #### D LDL, BMP #### [facility] [address] [address] [address] Alexis Brink CO2 [Moles/Vol] 32.1 mmol/L Critically high 21.0-32.0 [facility] Comment on above: Performed By: #### D LDL, BMP #### [facility] [address] [address] [address] Alexis Brink Creatinine [Mass/Vol] 1.35 mg/dL Critically high 0.70-1.30 [facility] Comment on above: Performed By: #### D LDL, BMP #### [facility] [address] [address] [address] Alexis Brink EGFR-AF COMORAN >60 Normal >=60 [facility] Comment on above: Performed By: #### D LDL, BMP #### [facility] [address] [address] [address] Alexis Brink EGFR-NON AF COMORAN 51 mL/min/1.73m2 Critically low >=60 [facility] Comment on above: Performed By: #### D LDL, BMP #### [facility] [address] [address] [address] Alexis Brink Glucose [Mass/Vol] 90 mg/dL Normal 74-106 [facility] Comment on above: Performed By: #### D LDL, BMP #### [facility] [address] [address] [address] Alexis Brink Potassium [Moles/Vol] 4.4 mmol/L Normal 3.5-5.1 [facility] Comment on above: Performed By: #### D LDL, BMP #### [facility] [address] [address] [address] Alexis Brink Sodium [Moles/Vol] 140 mmol/L Normal 136-145 [facility] Comment on above: Performed By: #### D LDL, BMP #### [facility] [address] [address] [address] Alexis Brink Urea nitrogen [Mass/Vol] 16.0 mg/dL Normal 7.0-18.0 [facility] Comment on above: Performed By: #### D LDL, BMP #### [facility] [address] [place] [address] Dr. Alexis Brink Urea nitrogen/Creatinin e [Mass ratio] 11.9 mg/mg Normal [facility] Comment on above: Performed By: #### D LDL, BMP #### [facility] [address] [place] [address] Dr. Alexis Brink UA RANDOMon 02-09-2022 Bilirubin Ql (U) Negative Normal NEGATIVE [facility] Comment on above: Performed By: #### U A #### [facility] [address] [place] [address] Dr. Alexis Brink Clarity (U) CLEAR Normal CLEAR [facility] Comment on above: Performed By: #### U A #### [facility] [address] [place] [address] Dr. Alexis Brink Color (U) YELLOW Normal YELLOW [facility] Comment on above: Performed By: #### U A #### [facility] [address] [place] [address] Dr. Alexis Brink Glucose Ql (U) Negative Normal NEGATIVE [facility] Comment on above: Performed By: #### U A #### [facility] [address] [place] [address] Dr. Aleixs Brink Hemoglobin Ql (U) Negative Normal NEGATIVE [facility] Comment on above: Performed By: #### U A #### [facility] [address] [place] [address] Dr. Alexis Brink Ketones Ql (U) Negative Normal NEGATIVE [facility] Comment on above: Performed By: #### U A #### [facility] [address] [place] [address] Dr. Alexis Brink LEUKOCYTES Negative Normal NEGATIVE [facility] Comment on above: Performed By: #### U A #### [facility] [address] [place] [address] Dr. Alexis Brink Nitrite Ql (U) Negative Normal NEGATIVE The [facility] Comment on above: Performed By: #### U A #### [facility] [address] [place] [address] Dr. Alexis Brink pH (U) 7.0 [pH] Normal 5-9 [facility] Comment on above: Performed By: #### U A #### [facility] [address] [place] [address] Dr. Alexis Brink SPEC GRAVITY 1.015 Normal 1.005-<=1.025 The [facility] Comment on above: Performed By: #### U A #### [facility] [address] [place] [address] Dr. Alexis Brink UA PROTEIN Negative Normal NEGATIVE/ TRACE [facility] Comment on above: Performed By: #### U A #### [facility] [address] [place] [address] Dr. Alexis Brink Urobilinogen Qn (U) 1.0 {Kay'U}/dL Normal 0.2 - 1.0 [facility] Comment on above: Performed By: #### U A #### [facility] [address] [place] [address] Dr. Alexis Brink XR CHEST 2 Von [...] by: LYDIA HAWLEY Date: 2021-12-06 15:42 Normal [facility] Nonvisit Note - PTon 018 Nonvisit Note - PT Cert letter refaxed for signature this date - third and final attempt. Normal [facility] Nonvisit Note - PTon 018 Nonvisit Note - PT Cert letter refaxed to Dr Gooden's office. Second attempt. Normal [facility] Coding Summary.on 01-25-2018 Coding Summary. CODING DATE: 01/25/2018 [facility] STATUS: PAYOR: Medicare ADMIT DX: REASON FOR [...] [place] Date Saved: 01/25/2018 10:54 am Normal [facility] Coding Summary. CODING DATE: 01/25/2018 [facility] STATUS: PAYOR: Medicare ADMIT DX: REASON FOR [...] [place] Date Saved: 01/25/2018 10:54 am Normal [facility] SURGICAL PATHOLOGYon 05-15-2 018 SURGICAL PATHOLOGY [facility]: [id number] Physician: BETH GOODEN MD FINAL DIAGNOSISRight hip, [...] to 8.5 x 8.5 x 1.8 cm. [place] sectionsare submitted as follows: A1 soft tissue, A2 bone submitted afterdecalcification.B F/billz 01/01/2018 Gross examination performed at [facility], [facility] [id number] of Report: 01/07/2018Date of Procedure: 01/01/2018Date of Receipt: 01/01/2018Submitted by: BETH GOODEN MDLocation: [id number] interpretation performed at [facility], [facility] [address] Normal [facility] Comment on above: Performed By: #### S ####See report for performing lab information. Vital Signs Date Time Vital Sign Value Performing Clinician Facility 01-22-2024 09:16-0400 Body height 167.64 cm [facility] 01-22-2024 09:16-0400 Body mass index (BMI) [Ratio] 29.3 kg/m2 [facility] 01-22-2024 [id number] Body weight 82.55 kg [facility] 01-22-2024 09:16-0400 Diastolic blood pressure 72 mm[Hg] [facility] 01-22-2024 09:16-0400 Heart rate 64 /min [facility] 01-22-2024 09:16-0400 Respiratory rate 20 /min [facility] 01-22-2024 09:16-0400 Systolic blood pressure 131 mm[Hg] [facility] 09-28-2023 11:00-0500 Body height 167.64 cm Cecilio Ball Other [facility] [place] Other 09-28-2023 11:00-0500 Body mass index (BMI) [Ratio] 30.24 kg/m2 Cecilio Ball Other [facility] [place] Other 09-28-2023 11:00-0500 Body weight 85 kg Cecilio Ball Other [facility] [place] Other 09-28-2023 11:00-0500 Respiratory rate 20 /min Cecilio Ball Other [facility] [place] Other 09-28-2023 11:00-0500 SaO2% (BldA) [Mass fraction] 97 % Cecilio Ball Other [facility] [place] Other 09-11-2023 10:45-0500 Body height 167.64 cm Cecilio Ball Other [facility] Other 09-11-2023 10:45-0500 Body mass index (BMI) [Ratio] 29.86 kg/m2 Cecilio Ball Other [facility] Other 09-11-2023 10:45-0500 Body temperature 97.5 [degF] Cecilio Ball Other [facility] Other 09-11-2023 10:45-0500 Body weight 83.92 kg Cecilio Ball Other [facility] Other 09-11-2023 10:45-0500 Diastolic blood pressure 81 mm[Hg] Cecilio Ball Other [facility] Other 09-11-2023 10:45-0500 Respiratory rate 20 /min Cecilio Ball Other [facility] Other 09-11-2023 10:45-0500 SaO2% (BldA) [Mass fraction] 98 % Cecilio Ball Other [facility] Other 09-11-2023 10:45-0500 Systolic blood pressure 161 mm[Hg] Cecilio Ball Other [facility] Other 08-01-2023 10:15-0500 Body height 167.64 cm Cecilio Ball Other [facility] Other 08-01-2023 10:15-0500 Body mass index (BMI) [Ratio] 29.86 kg/m2 Cecilio Ball Other [facility] Other 08-01-2023 10:15-0500 Body weight 83.92 kg Cecilio Ball Other [facility] Other 08-01-2023 10:15-0500 Diastolic blood pressure 79 mm[Hg] Cecilio Ball Other [facility] Other 08-01-2023 10:15-0500 Respiratory rate 20 /min Cecilio Ball Other [facility] Other 08-01-2023 10:15-0500 Systolic blood pressure 172 mm[Hg] Cecilio Ball Other [facility] Other 07-17-2023 10:15-0500 Body height 167.64 cm Cecilio Ball Other [facility] Other 07-17-2023 10:15-0500 Body mass index (BMI) [Ratio] 29.89 kg/m2 Cecilio Ball Other [facility] Other 07-17-2023 10:15-0500 Body weight 84.01 kg Cecilio Ball Other [facility] Other 07-17-2023 10:15-0500 Diastolic blood pressure 78 mm[Hg] Cecilio Ball Other [facility] Other 07-17-2023 10:15-0500 Respiratory rate 20 /min Cecilio Ball Other [facility] Other 07-17-2023 10:15-0500 Systolic blood pressure 172 mm[Hg] Cecilio Ball Other [facility] Other 07-10-2023 14:45-0500 Body height 167.64 cm Cecilio Ball Other [facility] Other 07-10-2023 14:45-0500 Body mass index (BMI) [Ratio] 29.47 kg/m2 Cecilio Ball Other [facility] Other 07-10-2023 14:45-0500 Body weight 82.83 kg Cecilio Ball Other [facility] Other 07-10-2023 14:45-0500 Diastolic blood pressure 80 mm[Hg] Cecilio Ball Other [facility] Other 07-10-2023 14:45-0500 Respiratory rate 20 /min Cecilio Ball Other [facility] Other 07-10-2023 14:45-0500 Systolic blood pressure 150 mm[Hg] Cecilio Ball Other [facility] Other 06-20-2023 08:30-0400 Body height 167.64 cm Cecilio Ball Other [facility] Other 06-20-2023 08:30-0400 Body mass index (BMI) [Ratio] 29.6 kg/m2 Cecilio Ball Other [facility] Other 06-20-2023 08:30-0400 Body weight 83.19 kg Cecilio Ball Other [facility] Other 06-20-2023 08:30-0400 Diastolic blood pressure 76 mm[Hg] Cecilio Ball Other [facility] Other 06-20-2023 08:30-0400 Respiratory rate 20 /min Cecilio Ball Other [facility] Other 06-20-2023 08:30-0400 Systolic blood pressure 157 mm[Hg] Cecilio Ball Other [facility] Other 05-30-2023 13:45-0400 Body height 167.64 cm Cecilio Ball Other [facility] Other 05-30-2023 13:45-0400 Body mass index (BMI) [Ratio] 28.95 kg/m2 Cecilio Ball Other [facility] Other 05-30-2023 13:45-0400 Body weight 81.38 kg Cecilio Ball Other [facility] Other 05-30-2023 13:45-0400 Diastolic blood pressure 78 mm[Hg] Cecilio Ball Other [facility] Other 05-30-2023 13:45-0400 Respiratory rate 16 /min Cecilio Ball Other [facility] Other 05-30-2023 13:45-0400 Systolic blood pressure 158 mm[Hg] Cecilio Ball Other [facility] Other 02-14-2023 08:30-0400 Body height 167.64 cm Cecilio Ball Other [facility] Other 02-14-2023 08:30-0400 Body mass index (BMI) [Ratio] 28.57 kg/m2 Cecilio Ball Other [facility] Other 02-14-2023 08:30-0400 Body weight 80.29 kg Cecilio Ball Other [facility] Other 02-14-2023 08:30-0400 Diastolic blood pressure 80 mm[Hg] Cecilio Ball Other [facility] Other 02-14-2023 08:30-0400 Respiratory rate 16 /min Cecilio Ball Other [facility] Other 02-14-2023 08:30-0400 Systolic blood pressure 135 mm[Hg] Cecilio Ball Other [facility] Other 02-01-2023 08:15-0400 Body height 167.64 cm Jose Enrique Brazos II Other [facility] Other 02-01-2023 08:15-0400 Body mass index (BMI) [Ratio] 27.44 kg/m2 Jose Enrique Brazos II Other [facility] Other 02-01-2023 08:15-0400 Body weight 77.11 kg Jose Enrique Benji II Other [facility] Other 12-11-2022 10:30-0400 Body height 167.64 cm Cecilio Ball Other [facility] Other 12-11-2022 10:30-0400 Body mass index (BMI) [Ratio] 28.66 kg/m2 Cecilio Ball Other [facility] Other 12-11-2022 10:30-0400 Body weight 80.56 kg Cecilio Ball Other [facility] Other 12-11-2022 10:30-0400 Diastolic blood pressure 76 mm[Hg] Cecilio Ball Other [facility] Other 12-11-2022 10:30-0400 Respiratory rate 12 /min Cecilio Ball Other [facility] Other 12-11-2022 10:30-0400 Systolic blood pressure 151 mm[Hg] Cecilio Ball Other [facility] Other 11-09-2022 16:00-0400 Body mass index (BMI) [Ratio] 29.21 kg/m2 Jose Enrique Benji II Other [facility] Other 11-09-2022 16:00-0400 Body weight 82.1 kg Jose Enrique Benji II Other [facility] Other 11-09-2022 10:30-0400 Body height 167.64 cm Cecilio Ball Other [facility] Other 11-09-2022 10:30-0400 Body mass index (BMI) [Ratio] 29.23 kg/m2 Cecilio Ball Other [facility] Other 11-09-2022 10:30-0400 Body weight 82.15 kg Cecilio Ball Other [facility] Other 11-09-2022 10:30-0400 Diastolic blood pressure 79 mm[Hg] Cecilio Ball Other [facility] Other 11-09-2022 10:30-0400 Respiratory rate 20 /min Cecilio Ball Other [facility] Other 11-09-2022 10:30-0400 Systolic blood pressure 152 mm[Hg] Cecilio Ball Other [facility] Other 10-12-2022 10:00-0500 Body height 167.64 cm Cecilio Ball Other [facility] Other 10-12-2022 10:00-0500 Body mass index (BMI) [Ratio] 29.24 kg/m2 Cecilio Ball Other [facility] Other 10-12-2022 10:00-0500 Body weight 82.19 kg Cecilio Ball Other [facility] Other 10-12-2022 10:00-0500 Diastolic blood pressure 70 mm[Hg] Cecilio Ball Other [facility] Other 10-12-2022 10:00-0500 Respiratory rate 12 /min Cecilio Ball Other [facility] Other 10-12-2022 10:00-0500 Systolic blood pressure 102 mm[Hg] Cecilio Sourav Other [facility] Other Encounters Encounter Date Encounter Type Care Provider Facility Start: 03-10-2024 End: 03-10-2024 ambulatory [facility] Start: 02-25-2024 End: 02-25-2024 ambulatory Andbeto Villalobos MD Facility:[facility] Start: 02-11-2024 End: 02-11-2024 ambulatory Maddie Villalobos MD Facility:[facility] Start: 01-28-2024 End: 01-28-2024 ambulatory Maddie Villalobos MD Facility:[facility] Start: 01-22-2024 End: 01-22-2024 ambulatory [facility] Work Phone: Start: 01-22-2024 End: 01-22-2024 Patient encounter procedure [facility] Work Phone: Start: 10-30-2023 Non-patient / Non-visit [facility] Work Phone: Start: 09-28-2023 End: 09-28-2023 ambulatory Cecilio Sourav Other [facility] Other Start: 09-28-2023 Office outpatient vi sit 15 minutes Cecilio Benjamin [facility] Start: 09-28-2023 Telephone encounter Cecilio Benjamin [facility] Start: 09-21-2023 End: 09-21-2023 ambulatory Cecilio Sourav Other [facility] Other Start: 09-21-2023 Telephone encounter Cecilio Sourav DENISE [facility] Start: 09-11-2023 End: 09-11-2023 ambulatory Ceciilo Sourav Other [facility] Other Start: 09-11-2023 Office outpatient vi sit 15 minutes Cecilio Ball [facility] Start: 09-11-2023 Telephone encounter Cecilio Ball [facility] Start: 09-03-2023 End: 09-03-2023 ambulatory Cecilio Ball Other [facility] Other Start: 09-03-2023 Telephone encounter Cecilio Ball [facility] Start: 08-03-2023 End: 08-03-2023 ambulatory Cecilio Ball Other [facility] Other Start: 08-03-2023 Telephone encounter Cecilio Ball [facility] Start: 08-01-2023 End: 08-01-2023 ambulatory Cecilio Ball Other [facility] Other Start: 08-01-2023 Office outpatient vi sit 15 minutes Cecilio Ball [facility] Start: 07-17-2023 End: 07-17-2023 ambulatory Cecilio Ball Other [facility] Other Start: 07-17-2023 Office outpatient vi sit 15 minutes Cecilio Ball [facility] Start: 07-10-2023 End: 07-10-2023 ambulatory Cecilio Ball Other [facility] Other Start: 07-10-2023 Office outpatient vi sit 15 minutes Cecilio Ball [facility] Start: 06-20-2023 End: 06-20-2023 ambulatory Cecilio Ball Other [facility] Other Start: 06-20-2023 Office outpatient vi sit 25 minutes Cecilio Ball [facility] Start: 06-15-2023 End: 06-15-2023 ambulatory Cecilio Ball Other [facility] Other Start: 06-15-2023 Telephone encounter Cecilio Ball [facility] Start: 05-30-2023 End: 05-30-2023 ambulatory Cecilio Ball Other [facility] Other Start: 05-30-2023 Office outpatient vi sit 15 minutes Cecilio Benjamin [facility] Start: 03-20-2023 Telephone encounter David Jaeger DO Work Phone: [facility] [place] Comment on above: Follow Up Phone Call Start: 03-15-2023 End: 03-15-2023 ambulatory DAVID JAEGER Facility:[facility] Start: 02-27-2023 Orders Only David Marcos DO Work Phone: Procedures Comment on above: Pseudoclaudication s yndrome (Primary Dx); Lumbar radiculopathy Start: 02-26-2023 Telephone encounter David Jaeger DO Work Phone: [facility] [place] Comment on above: Procedure Start: 02-19-2023 Telephone encounter David Jaeger DO Work Phone: [facility] [place] Comment on above: Appointment Start: 02-14-2023 End: 02-14-2023 ambulatory Cecilio Benjamin Other [facility] Other Start: 02-14-2023 Patient encounter procedure Cecilio Benjamin [facility] Start: 02-13-2023 End: 02-13-2023 ambulatory Cecilio Benjamin Other [facility] Other Start: 02-13-2023 Telephone encounter Cecilio Benjamin HOWIE [facility] Start: 02-08-2023 End: 02-08-2023 ambulatory Cecilio Benjamin Other [facility] Other Start: 02-08-2023 Telephone encounter Cecilio Benjamin [facility] Start: 02-01-2023 End: 02-01-2023 ambulatory Jose Enrique Brazos II Other [facility] Other Start: 02-01-2023 Office outpatient vi sit 25 minutes Jose Enrique Brazos II [facility] Start: 12-11-2022 End: 12-11-2022 ambulatory Cecilio Benjamin Other [facility] Other Start: 12-11-2022 Office outpatient vi sit 15 minutes Cecilio Benjamin [facility] Start: 11-09-2022 End: 11-09-2022 ambulatory Jose Enrique Leblanc II Facility:[facility] Start: 11-09-2022 End: 11-09-2022 Patient encounter procedure MD Jose Enrique Leblanc II Work Phone: [facility] Start: 11-09-2022 End: 11-09-2022 ambulatory MD Jose Enrique Leblanc II Work Phone: [facility] Work Phone: Start: 11-09-2022 Office outpatient ne w 45 minutes Jose Enrique Leblanc II [facility] Start: 11-09-2022 Office outpatient vi sit 15 minutes Cecilio Benjamin [facility] Start: 11-05-2022 End: 11-05-[address] CECILIO BENJAMIN Facility:[facility] Start: 10-12-2022 End: 10-12-2022 ambulatory Cecilio Benjamin Other [facility] Other Start: 10-12-2022 Office outpatient vi sit 25 minutes Cecilio Benjamin [facility] Start: 09-27-2022 End: 09-27-2022 ambulatory Cecilio Benjamin Other [facility] Other Start: 09-27-2022 Telephone encounter Cecilio [facility] Start: 09-26-2022 End: 09-27-[address] CECILIO BENJAMIN Facility:[facility] Start: 08-25-2022 End: 08-25-2022 ambulatory Cecilio Benjamin Other [facility] Other Start: 08-25-2022 Telephone encounter [facility] Start: 08-10-2022 End: 08-10-[address] CECILIO BENJAMIN Facility:[facility] Start: 02-09-2022 End: 02-10-[address] CECILIO BENJAMIN Facility:[facility] Start: 12-06-2021 End: 12-07-[address] CECILIO BENJAMIN Facility:[facility] Start: 01-22-2018 End: 04-20-2018 Patient encounter [id number] AUGUSTINE BENJAMIN [place] [place] Date Procedure Procedure Detail Performing Clinician Start: 11-09-2022 Pelvis X-ray MD Jose Enrique Leblanc II Work Phone: Start: 11-09-2022 Radiologic examinati on of knee MD Jose Enrique Leblanc II Work Phone: Plan of Treatment Date Care Activity Detail Author Start: 01-22-2024 Patient referral [facility] Work Phone: Start: 04-20-2023 Influenza vaccination INFLUENZA (#1) [facility] Start: 10-01-2022 COVID-19 VACCINE (5 - Moderna series) COVID-19 VACCINE (5 - Moderna series) [facility] Start: 08-20-2022 ADVANCE DIRECTIVE DISCUSSION ADVANCE DIRECTIVE DISCUSSION [facility] Start: 08-20-2022 DEPRESSION ASSESSMENT DEPRESSION ASS ESSMENT [facility] Start: 09-19-2021 COVID-19 VACCINE (4 - Booster for Moderna series) COVID-19 VACCINE (4 - Booster for Moderna series) [facility] Start: 09-19-2021 COVID-19 VACCINE (4 - Moderna series) COVID-19 VACCINE (4 - Moderna series) [facility] Start: 01-02-2021 DIABETES SCREEN DIABETES SCREEN [facility] Start: 1991 SHINGRIX VACCINE (1 of 2) SHINGRIX VACCINE (1 of 2) [facility] Start: 1960 Urine microalbumin profile DTAP,TDAP,TD (1 - Tdap) [facility] Start: 1959 SPIROMETRY SPIROMETRY [facility] Start: 1947 PNEUMOCOCCAL: 65+ (1 - PCV) PNEUMOCOCCAL: 65+ (1 - PCV) [facility] Comprehensive metabo lic 2000 panel - Serum or Plasma [facility] Patient referral [facility] Work Phone: SPINE INTERVENTION PROCEDURE SPINE INTERVENTION PROCEDURE Procedures Routine Spinal stenosis, lumbar region with neurogenic claudication Lumbar radiculopathy, chronic Ordered: 02/19/2023 [facility] Work Phone: Comment on above: Ordered: 02/19/2023 [facility] Immunizations Immunization Date Immunization Notes Care Provider Coleman [email or web address] 05-30-2023 COVID-19 Vaccine Moderna - Documentation Purposes Only Cecilio Benjamin Other [facility] 05-30-2023 influenza virus vaccine, unspecified formulation [facility] 05-30-2023 influenza, high dose seasonal, preservative-free Cecilio Benjamin Other [facility] Other 06-13-2022 influenza virus vaccine, split virus (incl. purified surface antigen) Cecilio Benjamin Other [facility] Other 06-13-2022 influenza virus vaccine, unspecified formulation [facility] 06-13-2022 influenza, high dose seasonal, preservative-free Jose Enrique Benji II Other [facility] Other 05-31-2022 COVID-19 Pfizer (bivalent) Jose Enrique Brazos II Other [facility] 05-31-2022 COVID-19 Pfizer (Pediatric) Cecilio Benjamin Other [facility] 07-25-2021 COVID-19 Vaccine Moderna - Documentation Purposes Only Jose Enrique Benji II Other [facility] 05-03-2021 zoster vaccine recombinant Jose Enrique Brazos II Other [facility] 05-03-2021 zoster vaccine, live Benjami n Ball Other [facility] 01-28-2021 zoster vaccine recombinant Jose Enrique Brazos II Other [facility] 01-28-2021 zoster vaccine, live Benjami n Ball Other [facility] 10-25-2020 COVID-19 Vaccine Moderna - Documentation Purposes Only Jose Enrique Brazos II Other [facility] 09-27-2020 COVID-19 Vaccine Moderna - Documentation Purposes Only Jose Enrique Leblanc II Other [facility] 05-24-2020 influenza virus vaccine, split virus (incl. purified surface antigen) Cecilio Benjamin Other [facility] Other 05-24-2020 influenza virus vaccine, unspecified formulation [facility] 01-03-2019 diphtheria, tetanus toxoids and acellular pertussis vaccine, unspecified formulation Cecilio Benjamin Other [facility] 12-25-2018 pneumococcal polysaccharide vaccine, 23 valent Jose Enrique Benji II Other [facility] 04-30-2018 influenza virus vaccine, split virus (incl. purified surface antigen) Cecilio Benjamin Other [facility] Other 04-30-2018 influenza virus vaccine, unspecified formulation [facility] 04-09-2017 influenza virus vaccine, split virus (incl. purified surface antigen) Cecilio Benjamin Other [facility] Other 04-09-2017 influenza virus vaccine, unspecified formulation [facility] 05-31-2016 zoster vaccine, live Jose Enrique Guerrerole II Other [facility] 05-13-2016 influenza virus vaccine, split virus (incl. purified surface antigen) Cecilio Benjamin Other [facility] Other 05-13-2016 influenza virus vaccine, unspecified formulation [facility] 05-09-2015 influenza virus vaccine, split virus (incl. purified surface antigen) Cecilio Benjamin Other [facility] Other 05-09-2015 influenza virus vaccine, unspecified formulation [facility] 03-06-2015 pneumococcal conjuga te vaccine, 13 valent Jose Enrique Brazos II Other [facility] 05-07-2014 tetanus and diphther ia toxoids, adsorbed, preservative free, for adult use (5 Lf of tetanus toxoid and 2 Lf of diphtheria toxoid) Cecilio Benjamin Other [facility] 04-23-2013 tetanus and diphther ia toxoids, adsorbed, preservative free, for adult use (5 Lf of tetanus toxoid and 2 Lf of diphtheria toxoid) Cecilio Benjamin Other [facility] 08-21-2012 pneumococcal polysaccharide vaccine, 23 valent Cecilio Benjamin Other [facility] 12-12-2011 zoster vaccine, live Jose Enrique Brazos II Other [facility] Payers Date Payer Category Payer Self-pay 2022 Unknown [id number] 2018 Medicare [id number] 2006 Medicare [id number] 2006 Unknown [id number] 1959 Medicare [id number] 2.1 [id number] 1959 Unknown [id number] 2.16. [id number] 1941 Unknown [id number] 2.16.84 [id number] 1941 Unknown [id number] 2.16.84 [id number] 1941 Unknown [id number] 2.16.84 [id number] 1941 Unknown [id number] 2.16.84 [id number] 1941 Unknown [id number] 2.16.84 [id number] 1941 Unknown [id number] 2.16. [id number] 1941 Unknown [id number] 2.16. [id number] 1941 Unknown [id number] 2.16. [id number] 1941 Unknown [id number] 2.16. [id number] Unknown [id number] 2.16.8 [id number] Social History Date Type Detail Facility Start: 05-09-2021 End: 03-15-2023 Sex Assigned At [facility] Start: 1940 Sex Assigned At Male F [facility] Start: 06-13-2017 End: 01-22-2024 Tobacco smoking status MOIS Never smoked tobacco [facility] Start: 06-13-2017 Tobacco use and exposure Smokeless tobacco non-user [facility] Start: 05-09-2021 Alcohol intake Current drinke r of alcohol (finding) [facility] Start: 12-11-2017 Alcohol Comment [facility] Start: 1940 [facility] Start: 05-09-2021 End: 03-15-2023 History of Social function [facility] Adult Depression Screening Assessment 1 [facility] Medical Equipment Procedure Code Equipment Code Equipment Origin al Text Equipment Identifier Dates [place] Swivelock Tenodesis 8mm Biocomposite 19.5mm Suture [place] Eyelet - [id number] Start: 06-29-2017 Sleeve V40 +0mm Offset [place] Taper Titanium Adapter Hip - [id number] Start: 01-01-2018 Screw Trident Secur-Fit Torx 6.5mm Titanium 20mm Bone Sterile Acetabular - [id number] Start: 01-01-2018 Clinical Notes 08-25-2022 to 01-22-2024 Note Date & Type Note Facility 01-22-2024 Evaluation note Diagnosis Onset Date Chronic bronchitis, simple a cute Chronic kidney disease, stage 3a acute Elevated cholesterol acute Generalized anxiety disorder acute Hypertension acute Lumbar spondylolysis acute Obstructive sleep apnea acut e Medicare annual wellness visit, subsequent noneactive [facility] Work Phone: 1(106) 432-738402-09-2024 Evaluation note* Encounter Date Diagnosis Assessment Notes [...] and clinically improving, no further treatment necessary [facility] Other 02-02-2024 Evaluation note* Encounter Date Diagnosis Assessment Notes Treatment Notes Treatment Clinical Notes Sep, Carotid bruit, unspecified laterality (ICD-10 - R09.89) [facility] Other 01-23-2024 Evaluation note* Encounter Date Diagnosis [...] tid Initiate Prednisone _update office on Sunday [facility] Other 01-15-2024 Evaluation note* Encounter Date Diagnosis Assessment Notes Treatment Notes Treatment Clinical Notes Aug, JONATHAN (generalized anxiety disorder) (ICD-10 - F41.1) [facility] Other 12-13-2023 Evaluation note* Encounter Date Diagnosis [...] best 2/3 readings w/ goal < 135/85 [facility] Other 11-28-2023 Evaluation note* Encounter Date Diagnosis [...] daily for blisters and ulcerations. Moisturizers daily [facility] Other 11-21-2023 Evaluation note* Encounter Date Diagnosis [...] Call if develop increased pain or erythema [facility] Other 11-01-2023 Evaluation note* Encounter Date Diagnosis [...] use, the patient reduces the risk for AR, CVA, HTN, cardiac dysrhythmias and sudden cardiac [...] very active. No change in medical treatment [facility] Other 10-27-2023 Evaluation note* Encounter Date Diagnosis Assessment Notes Treatment Notes Treatment Clinical Notes May, JONATHAN (generalized anxiety disorder) (ICD-10 - F41.1) [facility] Other 10-11-2023 Evaluation note* Encounter Date Diagnosis [...] They may safely use Tylenol as needed. [facility] Other 08-01-2023 Miscellaneous Notes* Telephone Encounter - Neida Porter MA - 03/20/2023 12:26 PM EDT DATE OF SERVICE: 03/15/2023 PATIENT'S PHONE NUMBERS: [phone] (home) OR @[email or web address] PROVIDER: Dr. Jaeger PROCEDURE: Elective Pain Management Procedure Left message on machine Asked pt to call back and speak with the specialty triage nurse with update. Please obtain percentage better and the duration of improvement. Please inquire if there were any problems afterwards. Neida Brink documented in this encounterL[facility]07-[facility]23 Miscellaneous Notes* Telephone Encounter - Linda Knox LPN - 02/26/2023 4:42 PM EDT Spoke to patient in reguards to pre procedure instructions. Pt must have a jitney driver. Pt advised to arrive 30 min [...] okay to take. Advised on location of [address] Pt will receive a follow up call several days after by a stationary steam engineer. If you experience any increase in weakness, difficulty walking or significant increase in pain thatlast more than 4 hours, please proceed to the Emergency Room and tell them you had a spine procedure done recently. Additionally, call us and notify us of these symptoms. Please call [phone] if you have any questions. Pt verbalized understanding. documented in this encounterL[facility]07-03-2023 Miscellaneous Notes* Telephone Encounter - Linda Knox LPN - 02/19/2023 11:57 AM EDT Order approved Spoke to daughter in [facility] to pre procedure instructions. Daughter given scheduling number [phone] Pt must have a jitney driver. Pt advised to arrive 30 min prior to the time given by the computer processing scheduler. Pt advised will also receive a call the day before from the surgery center to confirm date/time. Pt can eat and drink as normal. and Pt can take medications as normal. No alcohol 24 hours prior. Pt is on ASA.- 81 mg okay to take. and must Advised on location of [address] Pt will receive a follow up call several days after by a stationary steam engineer. If you experience any increase in weakness, difficulty walking or significant increase in pain thatlast more than 4 hours, please proceed to the Emergency Room and tell them you had a spine procedure done recently. Additionally, call us and notify us of these symptoms. Please call [phone] if you have any questions. Pt verbalized [...] call Celi as patient cannot hear well [phone] Patient has been identified by name and birthdate. Duration of symptoms: N/A Person calling: daughter: Celi Call patient at: N/A [phone] (home) [phone] (cell) Was an appointment scheduled: No Closing statement: Results or non-symptom based questions: Thank you for calling [facility], your call will be returned within the next business day. Camilla Jarrell Pss documented in this encounterLakehealth [facility] Center06-28-2023 Evaluation note* Encounter Date Diagnosis [...] use, the patient reduces the risk for AR, CVA, HTN, cardiac dysrhythmias and sudden cardiac [...] (ICD-10 - F41.1) Healthy diet, keep active [facility] Other 06-22-2023 Evaluation note* Encounter Date Diagnosis Assessment Notes Treatment Notes Treatment Clinical Notes Jan, Elevated cholesterol (ICD-10 - E78.00) Jan, Stage 3a chronic kidney disease (ICD-10 - N18.31) Jan, Primary hypertension (ICD-10 - I10) Jan, Screening PSA (prostate specific antigen) (ICD-10 - Z12.5) Jan, High risk medication use (ICD-10 - Z79.899) [facility] Other 06-15-2023 Evaluation note* Encounter Date Diagnosis [...] this time 6. Follow up as needed [facility] Other 04-24-2023 Evaluation note* Encounter Date Diagnosis [...] use of statin, experiencing ADR and stopped [facility] Other 03-23-2023 Evaluation note* Encounter Date Diagnosis [...] - M17.12) Quad exercises, ice/heat and Tylenol [facility] Other 03-23-2023 Evaluation note* Encounter Date Diagnosis [...] injection well. 6. Follow up as needed [facility] Other 02-23-2023 Evaluation note* Encounter Date Diagnosis [...] use, the patient reduces the risk for AR, CVA, HTN, cardiac dysrhythmias and sudden cardiac [...] tract symptoms (ICD-10 - N40.1) Symptoms tolerable [facility] Other 02-08-2023 Evaluation note* Encounter Date Diagnosis Assessment Notes Treatment Notes Treatment Clinical Notes Sep, Elevated cholesterol (ICD-10 - E78.00) Sep, Stenosis of right carotid artery (ICD-10 - I65.21) Sep, Retinal hemorrhage of right eye (ICD-10 - H35.61) [facility] Other 01-06-2023 Evaluation note* Encounter Date Diagnosis Assessment Notes Treatment Notes Treatment Clinical Notes Aug, Carotid bruit, unspecified laterality (ICD-10 - R09.89) [facility] Other Evaluation noteNo assessment information available [facility] Work Phone: Evaluation noteNo InformationNort [facility] Other Evaluation note* Diagnosis Spinal stenosis, lumbar region with neurogenic claudication- Primary Lumbar radiculopathy, chronic Thoracic or lumbosacral neuritis or radiculitis, unspecified documented in this encounter [facility]* Diagnosis Pseudoclaudication syndrome- Primary Spinal stenosis, lumbar region, with neurogenic claudication Lumbar radiculopathy Thoracic or lumbosacral neuritis or radiculitis, unspecified Pseudoclaudication syndrome Spinal stenosis, lumbar region, with neurogenic claudication Lumbar radiculopathy Thoracic or lumbosacral neuritis or radiculitis, unspecified documented in this encounter [facility] general Narrative - Reported* Type [...] JANELLE 06/2017 Hospitalization History see surgical history [facility] Other Hospital Discharge instructionsAmbulatory Orders* Referral to Pain Management Location: None [facility] Work Phone: Summary Purpose Family History [...] section and content) DATE CREATED AUTHOR 02/06/2018 [facility] DATE CREATED AUTHOR AUTHOR'S ORGANIZ ATION 06/10/2018 Toni Lawler [facility] DATE CREATED AUTHOR AUTHOR'S ORGANIZ ATION 11/06/2022 [facility] DATE CREATED AUTHOR AUTHOR'S ORGANIZ ATION 12/21/2022 [facility] DATE CREATED AUTHOR AUTHOR'S ORGANIZ ATION 03/15/2023 [facility] DATE CREATED AUTHOR AUTHOR'S ORGANIZ ATION 03/22/2023 [facility] DATE CREATED AUTHOR AUTHOR'S ORGANIZ ATION 03/15/2024 [facility] REASON FOR VISIT (unrecogniz ed section and content) Reason Comments Appointment Reason Comments Procedure Reason Comments Follow Up Phone Call Care Teams (unrecognized sec tion and content) Team Status: Inactive Member Role Status Dates Jose Enrique Leblanc II, MD Attending Provider Active Ct Tech Relationship Specialty Start Date End Date Cecilio Benjamin DO PCP - General Internal Medicine 09/04/13 Ct Tech Relationship Specialty Start Date End Date Cecilio Benjamin DO PCP - General Internal Medicine 09/04/13 Ct Tech Relationship Specialty Start Date End Date Cecilio Benjamin DO PCP - General Internal Medicine 09/04/13 Ct Tech Relationship Specialty Start Date End Date Cecilio [...] or prosecute any alcohol or drug abuse patient.[facility] CenterIn the event this information is protected by the Federal Confidentiality of Alcohol and Drug Abuse Patient Records regulations: The Federal rules restrict any use of the information to criminally investigate or prosecute any alcohol or drug abuse patient.[facility] CenterIn the event this information is protected by the Federal Confidentiality of Alcohol and Drug Abuse Patient Records regulations: The Federal rules restrict any use of the information to criminally investigate or prosecute any alcohol or drug abuse patient.[facility] CenterIn the event this information is protected by the Federal Confidentiality of Alcohol and Drug Abuse Patient Records regulations: The Federal rules restrict any use of the information to criminally investigate or prosecute any alcohol or drug abuse patient.[facility] FOR RECORDS PERTAINING TO PATIENTS [...] BE BASED ON THE PRIMARY CLINICAL RECORDS. [facility]. provides no warranty or guarantee of the accuracy or completeness of information in this document.
--- NOTE | 2024-03-31 14:50 | PM.CN ---
Consult Note: HPI Data of Consult Patient: known to practice within the last 3 years Consult date: 03/31/24 Requesting Physician: Maddie Villalobos MD Primary Care Provider: Cecilio Benjamin DO Consult Narrative Reason for consult: low back pain Narrative: 83yom who presents for assessment. underwent second diagnostic bilateral l4-5, l5-s1 medial branch block and notes significant relief of >80% for >2 hours and subsequent return of pain to baseline. pain prior was 7-8, pain after procedure was 1-2. pain now back to baseline. continues to stay active at home. cc:: CC: Maddie Villalobos MD Review of Systems ROS Status of ROS 10 or more systems reviewed and unremarkable except as noted in history and below [facility] Medical History (Updated 02/25/24 @ 10:56 by Joann Gifford) Low back pain ?M54.50 - Low back pain, unspecified (ICD-10) Heartburn ?R12 - Heartburn (ICD-10) Sleep apnea ?G47.30 - Sleep apnea, unspecified (ICD-10) COPD (chronic obstructive pulmonary disease) ?J44.9 - Chronic obstructive pulmonary disease, unspecified (ICD-10) Asthma ?J45.909 - Unspecified asthma, uncomplicated (ICD-10) Hypertension ?I10 - Essential (primary) hypertension (ICD-10) Surgical History H/O cervical spine surgery ?Z98.890 - Other specified postprocedural states (ICD-10) S/P tonsillectomy and adenoidectomy ?Z90.89 - Acquired absence of other organs (ICD-10) History of ankle surgery ?Z98.890 - Other specified postprocedural states (ICD-10) S/P cholecystectomy ?Z90.49 - Acquired absence of other specified parts of digestive tract (ICD-10) S/P total hip arthroplasty ?Z96.649 - Presence of unspecified artificial hip joint (ICD-10) History of surgery on upper extremity ?Z98.890 - Other specified postprocedural states (ICD-10) Meds Home Medications and Allergies Home Medications ?Medication ?Instructions ?Recorded ?Confirmed ?Type albuterol sulfate 90 mcg/actuation 2 inh inhalation Q8H PRN shortness 01/28/24 03/24/24 History aerosol inhaler (Ventolin HFA) of breath or wheezing amlodipine 2.5 mg tablet 2.5 mg PO DAILY 01/28/24 03/24/24 History clonazepam 0.5 mg tablet 0.5 mg PO DAILY 01/28/24 03/24/24 History escitalopram oxalate 10 mg tablet 10 mg PO DAILY 01/28/24 03/24/24 History (Lexapro) fluticasone propionate 110 1 inh inhalation BID 01/28/24 03/24/24 History mcg/actuation HFA aerosol inhaler nabumetone 500 mg tablet 500 mg PO BID 01/28/24 03/24/24 History omeprazole 20 mg capsule,delayed 20 mg PO DAILY 01/28/24 03/24/24 History release tamsulosin 0.4 mg capsule (Flomax) 0.4 mg PO DAILY 01/28/24 03/24/24 History Allergies Allergy/AdvReac Type Severity Reaction Status Date / Time bacitracin AdvReac Mild Rash Verified 03/24/24 12:04 Exam Narrative Exam Narrative: Psych-alert and oriented x 3. Attentive and appropriate, constitutionally normal, displays normal mood and affect per situation.? There are no obvious deficits in memory, reasoning, or intellect.? Skin-no obvious rashes, bruising, erythema noted to the patient's area of pain. Extremities- extremities are warm with minimal edema and palpable pulses. Lumbar-no significant tenderness to palpation noted in the lumbar spine and paraspinal musculature.? Pain is elicited with extension, and lateral rotation of the lumbar spine. Range of motion is slightly diminished with these motions due to pain. Facet loading maneuvers are positive bilaterally and do appear to be concordant with the patient's normal complaints of pain.? Coordination remains intact.? Gait remains non-antalgic. Assessment and Plan Assessment and Plan (1) Lumbar spondylosis: (2) Lumbar stenosis with neurogenic claudication: Plan 83yom who presents for assessment. had significant benefit with 2 separate diagnostic blocks, as noted. given significant response, will proceed with bilateral l4-5, l5-s1 radiofrequency ablation under fluoroscopic guidance. he is in agreement. meds reviewed, no changes. follow up after procedure.
== END 2024-03-31 13:58 | disposition home or self-care (01) ==
PROVIDERS: PCP Internal Medicine; Visit Provider Anesthesiology
DX: M47.816 Spondylosis without myelopathy or radiculopathy, lumbar region (principal); M48.062 Spinal stenosis, lumbar region with neurogenic claudication
CPT/HCPCS: G0463

== ENCOUNTER 2024-04-07 07:40 | Day surgery (SDC) | payer MEDICARE, OTHER, SELFPAY ==
--- OUTSIDE RECORDS SUMMARY | 2024-04-07 07:44 | XMS_ITS | CCD ---
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 Name Role Phone SOURAV CECILIO~[phone] UNKNOWN Unavailable Unavailable BETH GOODEN Unavailable Unavailable BETH GOODEN Unavailable Unavailable BETH GOODEN Unavailable Unavailable Cecilio Benjamin Unavailable SOURAV, DR [...] Care Unavailable SOURAV, DR RUIZ Consulting Unavailable LYDIA HAWLEY Consulting Unavailable MD Jose Enrique Leblanc II Attending Provider [phone] Jose Enrique Leblanc II Unavailable [phone] Jose Enrique Leblanc II Attending UnavailJose Enrique [...] bacitracin; Translations: [bacitracin] Drug Allergy 09-11-2013 Unknown [facility] Repository (19 sources) Albuterol Drug Allergy Unknown [employer] Other (20 sources) HMG-CoA reductase inhibitor Drug allergy Unknown [employer] Other Medications Current Medications Medication Drug Class(es) [...] uth every 8 hours. (Mild pain reliever) [id number] 200 actuat albuterol 0.09 mg/actuat metered dose [...] Active 1 INH INHALATION Twice daily 60 January 22, 2024 12:00am take 1 puff(s) [...] daily Omeprazole Active 20 MG PO Daily 90 October 19, 2023 11:07am Omeprazole 20 MG [...] on above: Take 4 tablets by mo [facility] 1 hour prior to procedure and [...] Comment on above: [facility]. COMPOUNDED PRESCRIPTION (4 [...] on above: Take 1 capsule by mo [facility] twice daily. (Stool softener) doxycycline hyclate 100 mg oral capsule (15 sources) Tetracycline-class Drug Start: 10-17-2023 End: 10-19-2023 take 100 mg by mouth twice daily Doxycycline Hyclate Discontinued 100 MG PO Twice daily October 17, 2023 1:00am October 19, 2023 11:06am Start: 07-10-2023 take 1 capsule by mo [facility] every twelve hours Doxycycline Hyclate 100 [...] mo ut. Take 2 tablets by mo [facility] daily at bedtime. 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) [facility] Indications: Primary osteoarthritis of right hip Grasper [...] 01-22-2024 Episodic Other aftercare (2 sources) Other [facility] (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 therapy; Translations: [[facility] CURRENT DRUG THERAPY] Onset: 11-06-2022 [...] Test Name Value Interpretation Reference [facility] CNPN Telephone (SPNMAV) RUPERTO THORPE ([id number]) 1940 [employer]* Date Time Provider Department 03/20/23 DAVID JAEGER SPNMAV During your visit today, we recorded the following information about you: Neida Porter MA 03/20/2023 12:30 PM Signed DATE OF SERVICE: 03/15/2023 PATIENT'S PHONE NUMBERS: [phone] (home) OR @[facility]@ PROVIDER: Dr. Jaeger PROCEDURE: Elective Pain [...] work Requesting to call his CELL ONLY [phone] what to do next Leave Detailed messages [...] of spine injection schedulers to call at [phone]. Patient will call if he wants to schedule another injection. 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 Author [...] offered a procedure / surgery at a [facility] facility. Patient and I have discussed in [...] consent form. [facility] approved time out was performed identifying the site, side and level of procedure prior to start of procedure. [facility] - ELECTIVE PROCEDURE Lumbar Transforaminal Epidural Steroid [...] the entire procedure. David Jaeger DO, MBA [facility] 02-26-2023 CNPN Telephone (SPNMAV) RUPERTO THORPE ([id number]) 1940 Jill Marie* Date Time Provider Department 02/26/23 DAVID JAEGER During your visit today, we recorded the following information about you: Linda Knox LPN 02/26/2023 4:49 PM Signed Spoke to patient in [facility] to pre procedure instructions. Pt must have a flag car driver. Pt advised to arrive 30 [...] Advised on location of ASC-2nd floor [facility] Pt will receive a follow up call several days after by a restaurant hourly team member. If you experience any increase in weakness, difficulty walking or significant increase in pain that last more than 4 hours, please proceed to the Emergency Room and tell them you had a spine procedure done recently. Additionally, call us and notify us of these symptoms. Please call [phone] if you have any questions. Pt verbalized [...] Status:Closed by LINDA KNOX LPN on 02/26/23 [facility] 02-19-2023 CNPN Telephone (SPNMAV) RUPERTO THORPE ([id number]) 1940 [employer] Date Time Provider Department 02/19/23 DAVID JAEGER SPNMAV During your visit today, we recorded the following information about you: Camilla Jarrell Pss 02/19/2023 9:27 AM Signed Ruperto Thorpe daughter [...] call Celi as patient cannot hear well [phone] Patient has been identified by name and birthdate. Duration of symptoms: N/A Person calling: daughter: Celi Call patient at: N/A [phone] (home) [phone] (cell) Was an appointment scheduled: No Closing statement: Results or non-symptom based questions: Thank you for calling [facility], your call will be returned within the next business day. Camilla Knox LPN 02/19/2023 9:45 AM Signed Spine Intervention order formatted for review Linda Knox LPN 02/19/2023 11:59 AM Signed Order approved Spoke to daughter in [facility] to pre procedure instructions. Daughter given scheduling number [phone] Pt must have a flag car driver. Pt advised to arrive 30 min prior to the time given by the pantograph setter. Pt advised will also receive a call the day before from the surgery center to confirm date/time. Pt can eat and drink as normal. and Pt can take medications as normal. No alcohol 24 hours prior. Pt is on ASA.- 81 mg okay to take. and must Advised on location of ASC-2nd floor [facility] Pt will receive a follow up call several days after by a restaurant hourly team member. If you experience any increase in weakness, difficulty walking or significant increase in pain that last more than 4 hours, please proceed to the Emergency Room and tell them you had a spine procedure done recently. Additionally, call us and notify us of these symptoms. Please call [phone] if you have any questions. Pt verbalized understanding. 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 Normal [facility] XR knee LT 4V*on 11-09-2022 XR knee LT 4V* [facility] [place] [address] [place] [address] XRay Report Signed Patient: Ruperto Thorpe MR#: [id number] 5 : 1940 Acct:[id number] Age/Sex: 82 / M ADM Date: 11/09/22 Loc: [facility] Room: Type: REG CLI Attending Dr: Jose [...] Darren Yuen M.D.11/09/2022 5:03 PM Dictation Location: [facility]--12 Transcribed By: [facility] 11/09/22 170 Dictated By: Darren Yuen II, MD 11/09/221700 Signed By: 11/09/22 170 [facility] XR knee LT 4V* [facility] [employer] Other XR knee LT 4V* [facility] [employer] Other XR knee LT 4V* [address] [place] [address] [employer] Other XR knee LT 4V* [place] [address] No [facility] [employer] Other XR knee LT 4V* XRay Report [employer] Other XR knee LT 4V* Signed [employer] Other XR knee LT 4V* Patient: Ruperto Thorpe MR#: [id number] [facility] [employer] Other XR knee LT 4V* 5 [employer] Other XR knee LT 4V* : 1940 Acct:[id number] [employer] Other XR knee LT 4V* Age/Sex: 82 / M ADM Date: 11/09/22 [employer] Other XR knee LT 4V* Loc: [facility] Room: Type : REG CLI [employer] Other XR knee LT 4V* Attending Dr: Jose Enrique Leblanc II, MD [employer] Other XR knee LT 4V* Copies to: Jose Enrique Leblanc MD [employer] Other XR knee LT 4V* Ordering Provider: Jose Enrique Leblanc MD [employer] Other XR knee LT 4V* Date of Service: 11/09/22 [employer] Other XR knee LT 4V* XR/XR knee LT 4V*: Acute pain of left knee [employer] Other XR knee LT 4V* XR knee LT 4V* 11/09/2022 3:15 PM [employer] Other XR knee LT 4V* SIGNS AND SYMPTOMS: Acute pain of left knee [employer] Other XR knee LT 4V* PROTOCOL: Frontal, lateral, oblique, and sunrise views of the left knee [employer] Other XR knee LT 4V* COMPARISON: 11/05/2022 [employer] Other XR knee LT 4V* FINDINGS: [employer] Other XR knee LT 4V* There is similar narrowing of the weightbearing joint spaces with chondrocalcinosis of the menisci [employer] Other XR knee LT 4V* suggesting underlyin g CPPD. There is narrowing of the patellofemoral joint space with spurring at [employer] Other XR knee LT 4V* the superior pole of patella. There is a small joint effusion. No soft tissue swelling. No acute [employer] Other XR knee LT 4V* displaced fracture. Vascular calcifications are present posteriorly. [employer] Other XR knee LT 4V* XR/XR knee LT 4V* [employer] Other XR knee LT 4V* IMPRESSION: [employer] Other XR knee LT 4V* Tricompartmental degenerative changes are noted in the left knee with a small joint effusion. [employer] Other XR knee LT 4V* There is chondrocalcinosis of the menisci suggesting underlying CPPD. [employer] Other XR knee LT 4V* Impression dictated by: Darren Yuen M.D.11/09/2022 5:03 PM [employer] Other XR knee LT 4V* Dictation Location: [place] [address] [employer] Other XR knee LT 4V* Transcribed By: COLIN 11/09/22 [facility] [employer] Other XR knee LT 4V* Dictated By: Darren Yuen II, MD 11/09/22 [facility] [employer] Other XR knee LT 4V* Signed By: [employer] Other XR knee LT 4V* 11/09/22 170 [employer] Other XR pelvis 1-2Von 11-09-2022 XR pelvis 1-2V [facility] [place] [address] [place] [address] XRay Report Signed Patient: Ruperto Thorpe MR#: [id number] 5 : 1940 Acct:[id number] Age/Sex: 82 / M ADM Date: 11/09/22 Loc: [facility] Room: Type: [facility] Attending Dr: Jose Enrique Leblanc II, [...] Darren Yuen M.D.11/09/2022 5:01 PM Dictation Location: [facility]--12 Transcribed By: [facility] 11/09/221700 Dictated By: Darren Yuen II, MD 11/09/221699 Signed By: 11/09/221700 [facility] XR pelvis 1-2V XR/XR pelvis 1-2V: Acute pain of left knee [employer] Other XR pelvis 1-2V XR pelvis 1-2V 11/09/2022 3:15 PM [employer] Other XR pelvis 1-2V SIGNS AND SYMPTOMS: Left knee pain [employer] Other XR pelvis 1-2V PROTOCOL: Frontal radiograph of the chest [employer] Other XR pelvis 1-2V COMPARISON: None [employer] Other XR pelvis 1-2V There is mild narrowing of the left hip joint space with subcortical cystic change on both sides of [employer] Other XR pelvis 1-2V the joint along the acetabular there is chondrocalcinosis of the labrum overlying the superior [employer] Other XR pelvis 1-2V acetabular rim and superior lateral femoral head. The bony ring of the pelvis is intact. There is [employer] Other XR pelvis 1-2V total right hip arthroplasty. Degenerative changes are noted in the sacroiliac joints. No fracture [employer] Other XR pelvis 1-2V is [employer] Other XR pelvis 1-2V XR/XR pelvis 1-2V [employer] Other XR pelvis 1-2V Degenerative changes are noted in the left hip with findings suspicious for previous labral [employer] Other XR pelvis 1-2V pathology. [employer] Other XR pelvis 1-2V Postoperative change s are noted in the right hip with total right hip arthroplasty hardware. [employer] Other XR pelvis 1-2V Impression dictated by: Darren Yuen M.D.11/09/2022 5:01 PM [employer] Other XR pelvis 1-2V Transcribed By: COLIN 11/09/22 170 [employer] Other XR pelvis 1-2V Dictated By: Darren Yuen II, MD 11/09/221699 [employer] Other XR pelvis 1-2V 11/09/22 170 [employer] Other XR KNEE LT 4V or >on [...] There is chondrocalcinosis. Soft tissues: Unremarkable. IMPRESSION: Irmj-vo-wxyhxkzl osteoarthritis as described above. Chondrocalcinosis. No acute fracture or dislocation. Electronically authenticated by: CHUCK JONES Date: 2022-11-05 11:19 Normal [facility] US CAROTID ART BILon 023 US CAROTID [...] JONAS MCLEOD Date: 2022-09-26 10:58 Normal [facility] CBC AUTO DIFFon 08-10-2022 BASO # 0.0 103/ul Normal 0.0-0.1 [facility] Comment on above: Performed By: #### C BC #### [facility] [address] [place] [address] Dr. Alexis Brink Basophils/100 WBC (Bld) 0.7 % Normal 0.2-2.0 [facility] Comment on above: Performed By: #### C BC #### [facility] [address] [place] [address] Dr. Alexis Brink EO # 0.3 103/ul Normal 0.0-0.7 [facility] Comment on above: Performed By: #### C BC #### [facility] [address] [place] [address] Dr. Alexis Brink Eosinophils/100 WBC (Bld) 6.1 % Normal 0.9-7.0 [facility] Comment on above: Performed By: #### C BC #### [facility] [address] [place] [address] Dr. Alexis Brink Erythrocyte distribution width (RBC) [Ratio] 12.1 % Normal 11.0-15.0 [facility] Comment on above: Performed By: #### C BC #### [facility] [address] [place] [address] Dr. Alexis Brink Hematocrit (Bld) [Volume fraction] 44.2 % Normal 42.0-54.0 [facility] Comment on above: Performed By: #### C BC #### [facility] [address] [place] [address] Dr. Alexis Brink Hemoglobin (Bld) [Mass/Vol] 14.9 g/dL Normal 14.0-18.0 [facility] Comment on above: Performed By: #### C BC #### [facility] [address] [place] [address] Dr. Alexis Brink IG # 0.01 10e3/ul Normal 0.00-0.03 [facility] Comment on above: Performed By: #### C BC #### [facility] [address] [place] [address] Dr. Alexis Brink IG % 0.2 % Normal 0.0-0.5 [facility] Comment on above: Performed By: #### C BC #### [facility] [address] [place] [address] Dr. Alexis Brink LYMPH # 1.2 103/ul Normal 1.2-3.8 [facility] Comment on above: Performed By: #### C BC #### [facility] [address] [place] [address] Dr. Alexis Brink Lymphocytes/100 WBC (Bld) 21.3 % Normal 20.5-60.0 [facility] Comment on above: Performed By: #### C BC #### [facility] [address] [place] [address] Dr. Alexis Brink MANUAL DIFF REQ NO Normal [facility] Comment on above: Performed By: #### C BC #### [facility] [address] [place] [address] Dr. Alexis Brink MCH (RBC) [Entitic mass] 30.7 pg Normal 25.9-34.0 [facility] Comment on above: Performed By: #### C BC #### [facility] [address] [place] [address] Dr. Alexis Brink MCHC (RBC) [Mass/Vol] 33.7 g/dL Normal 29.9-35.2 [facility] Comment on above: Performed By: #### C BC #### [facility] [address] [place] [address] Dr. Alexis Brink MCV (RBC) [Entitic vol] 91.1 fL Normal 80.0-94.0 [facility] Comment on above: Performed By: #### C BC #### [facility] [address] [place] [address] Dr. Alexis Brink MONO # 0.5 103/ul Normal 0.3-0.8 [facility] Comment on above: Performed By: #### C BC #### [facility] [address] [place] [address] Dr. Alexis Brink Monocytes/100 WBC (Bld) 8.5 % Normal 1.7-12.0 [facility] Comment on above: Performed By: #### C BC #### [facility] [address] [place] [address] Dr. Alexis Brink NEUT # 3.5 103/ul Normal 1.4-6.5 [facility] Comment on above: Performed By: #### C BC #### [facility] [address] [place] [address] Dr. Alexis Brink Neutrophils/100 WBC (Bld) 63.2 % Normal 43.0-75.0 [facility] Comment on above: Performed By: #### C BC #### [facility] [address] [place] [address] Dr. Alexis Brink Platelet mean volume (Bld) [Entitic vol] 10.0 fL Normal 9.5-13.5 [facility] Comment on above: Performed By: #### C BC #### [facility] [address] [place] [address] [address] Alexis Brink PLT 120 103/ul Critically low 150-450 [facility] Comment on above: Performed By: #### C BC #### [facility] [address] [place], [place] [address] Dr. Alexis Brink RBC 4.85 106/ul Normal 4.70-6.10 [facility] Comment on above: Performed By: #### C BC #### [facility] [address] [place], [place] [address] Dr. Alexis Brink WBC 5.6 103/ul Normal 4.0-11.0 [facility] Comment on above: Performed By: #### C BC #### [facility] [address] [place] [address] [address] Alexis Brink Covid-19 PCR (CVDTB)on 07-21 SARS-CoV-2 (COVID-19) RNA RICKY+probe Ql (Unsp spec) Not detected Normal NOT DETECTED [facility] Comment on above: Result Comment: This test is not yet approved or cleared by the [place] FDA. When there are no FDA-approved or cleared tests available, and other criteria are met, FDA can make tests available under an emergency access mechanism called an Emergency Use Authorization (EUA). The EUA for this test is supported by the [place] of Health and Human Service's (HHS's) declaration [...] with SARS-CoV-2. Performed By: #### C VDTBH ####[facility] [address] [place] [address]Dr. Alexis Brink INFLUENZA A AND B AGon 08-10 INFLUANEGH SEE BELOW Normal [facility] Comment on above: Result Comment: Nega tive for Flu A protein angiten. Infection due to Flu A cannot be ruled out. Flu A angiten in the sample may be below the detection limit of the test. Performed By: #### I NFLUAB ####[facility] [address] [place] [address]Dr. Alexis Brink INFLUBNEGH SEE BELOW Normal [facility] Comment on above: Result Comment: Nega tive for Flu B protein antigen. Infection due to Flu B cannot be ruled out. Flu B antigen in the sample may be below the detection limit of the test. Performed By: #### I NFLUAB ####[facility] [address] [place], [place] [address]Dr. Alexis Brink INFLUENZA A AG Negative Normal NEGATIVE SEE COMMENT [facility] Comment on above: Performed By: #### I NFLUAB ####[facility] [address] [place], [place] [address]Dr. Alexis Brink INFLUENZA B AG Negative Normal NEGATIVE SEE COMMENT [facility] Comment on above: Performed By: #### I NFLUAB ####[facility] [address] [place], [place] [address]DrLainey Brink INTERNAL CONTROLS Within Normal Limits Normal Wi thin Normal Limits [facility] Comment on above: Performed By: #### I NFLUAB ####[facility] [address] [place], [place] [address]DrLainey Brink PROF CHEM 8 (BAS METB)on Anion gap [Moles/Vol] 11.4 mmol/L Normal [facility] Comment on above: Performed By: #### B NARA HSTRMERTN #### [facility] [address] [place] [address] Dr. Alexis Brink Calcium [Mass/Vol] 8.9 mg/dL Normal 8.5-10.1 [facility] Comment on above: Performed By: #### B MP, HSTROPN #### [facility] [address] [place] [address] [address] Alexis Brink Chloride [Moles/Vol] 102 mmol/L Normal 98-107 [facility] Comment on above: Performed By: #### B MP, HSTROPN #### [facility] [address] [place] [address] [address] Alexis Brink CO2 [Moles/Vol] 28.8 mmol/L Normal 21.0-32.0 [facility] Comment on above: Performed By: #### B MP, HSTROPN #### [facility] [address] [place] [address] [address] Alexis Brink Creatinine [Mass/Vol] 1.35 mg/dL Critically high 0.70-1.30 [facility] Comment on above: Performed By: #### B MP, HSTROPN #### [facility] [address] [place] [address] [address] Alexis Brink EGFR-AF AFGHAN >60 Normal >=60 [facility] Comment on above: Performed By: #### B MP, HSTROPN #### [facility] [address] [place] [address] [address] Alexis Brink EGFR-NON AF AFGHAN 51 mL/min/1.73m2 Critically low >=60 [facility] Comment on above: Performed By: #### B MP, HSTROPN #### [facility] [address] [place] [address] [address] Alexis Brink Glucose [Mass/Vol] 109 mg/dL Critically high 74-106 [facility] Comment on above: Performed By: #### B MP, HSTROPN #### [facility] [address] [place] [address] [address] Alexis Brink Potassium [Moles/Vol] 4.2 mmol/L Normal 3.5-5.1 [facility] Comment on above: Performed By: #### B MP, HSTROPN #### [facility] [address] [place] [address] [address] Alexis Brink Sodium [Moles/Vol] 138 mmol/L Normal 136-145 [facility] Comment on above: Performed By: #### B NARA, HSTROPN #### [facility] [address] [place] [address] [address] Alexis Brink Urea nitrogen [Mass/Vol] 18.0 mg/dL Normal 7.0-18.0 [facility] Comment on above: Performed By: #### B NARA, HSTROPN #### [facility] [address] [place] [address] [address] Alexis Brink Urea nitrogen/Creatinin e [Mass ratio] 13.3 mg/mg Normal [facility] Comment on above: Performed By: #### B NARA, HSTROPN #### [facility] [address] [place] [address] Dr. Alexis Brink TROPONIN, HIGH SENSITIVITYon 08-10-2022 HSTROP 22.2 pg/mL Normal 4.0-76.1 [facility] Comment on above: Result Comment: CUT- OFF POINTS HAVE BEEN ESTABLISHED BASED ON THE FOURTH UNIVERSAL DEFINITIONS OF MYOCARDIAL INFARCTION. THE UPPER REFERENCE LIMIT (URL) OF TROPONIN, DEFINED THE 99TH PERCENTILE OF cTnI DISTRIBUTION IN A REFERENCE POPULATION, HAS BEEN CONFIRMED THE DECISION THRESHOLD FOR GA DIAGNOSIS. Performed By: #### B NARA, HSTROPN #### [facility] [address] [place] [address] Dr. Alexis Brink XR CHEST 1 Von [...] by: RADHA UNDERWOOD Date: 2022-08-10 16:07 Normal [facility] CBC AUTO DIFFon 02-09-2022 BASO # 0.0 103/ul Normal 0.0-0.1 [facility] Comment on above: Performed By: #### C BC #### [facility] [address] [address] [address] Alexis Brink Basophils/100 WBC (Bld) 0.6 % Normal 0.2-2.0 [facility] Comment on above: Performed By: #### C BC #### [facility] [address] [place] [address] Dr. Alexis Brink EO # 0.5 103/ul Normal 0.0-0.7 [facility] Comment on above: Performed By: #### C BC #### [facility] [address] [place] [address] Dr. Alexis Brink Eosinophils/100 WBC (Bld) 7.2 % Critically high 0.9-7.0 [facility] Comment on above: Performed By: #### C BC #### [facility] [address] [place] [address] Dr. Alexis Brink Erythrocyte distribution width (RBC) [Ratio] 12.4 % Normal 11.0-15.0 [facility] Comment on above: Performed By: #### C BC #### [facility] [address] [place] [address] Dr. Alexis Brink Hematocrit (Bld) [Volume fraction] 45.5 % Normal 42.0-54.0 [facility] Comment on above: Performed By: #### C BC #### [facility] [address] [place] [address] Dr. Alexis Brink Hemoglobin (Bld) [Mass/Vol] 15.4 g/dL Normal 14.0-18.0 [facility] Comment on above: Performed By: #### C BC #### [facility] [address] [place] [address] Dr. Alexis Brink IG # 0.02 10e3/ul Normal 0.00-0.03 [facility] Comment on above: Performed By: #### C BC #### [facility] [address] [place] [address] Dr. Alexis Brink IG % 0.3 % Normal 0.0-0.5 [facility] Comment on above: Performed By: #### C BC #### [facility] [address] [address] [address] Alexis Brink LYMPH # 1.3 103/ul Normal 1.2-3.8 [facility] Comment on above: Performed By: #### C BC #### [facility] [address] [place] [address] Dr. Alexis Brink Lymphocytes/100 WBC (Bld) 17.8 % Critically low 20.5-60.0 [facility] Comment on above: Performed By: #### C BC #### [facility] [address] [place] [address] Dr. Alexis Brink MANUAL DIFF REQ NO Normal [facility] Comment on above: Performed By: #### C BC #### [facility] [address] [place] [address] Dr. Alexis Brink MCH (RBC) [Entitic mass] 31.4 pg Normal 25.9-34.0 [facility] Comment on above: Performed By: #### C BC #### [facility] [address] [place] [address] Dr. Alexis Brink MCHC (RBC) [Mass/Vol] 33.8 g/dL Normal 29.9-35.2 [facility] Comment on above: Performed By: #### C BC #### [facility] [address] [place] [address] Dr. Alexis Brink MCV (RBC) [Entitic vol] 92.9 fL Normal 80.0-94.0 [facility] Comment on above: Performed By: #### C BC #### [facility] [address] [place] [address] Dr. Alexis Brink MONO # 0.7 103/ul Normal 0.3-0.8 [facility] Comment on above: Performed By: #### C BC #### [facility] [address] [place] [address] Dr. Alexis Brink Monocytes/100 WBC (Bld) 9.6 % Normal 1.7-12.0 [facility] Comment on above: Performed By: #### C BC #### [facility] [address] [address] [address] Alexis Brink NEUT # 4.6 103/ul Normal 1.4-6.5 [facility] Comment on above: Performed By: #### C BC #### [facility] [address] [address] [address] Alexis Brink Neutrophils/100 WBC (Bld) 64.5 % Normal 43.0-75.0 [facility] Comment on above: Performed By: #### C BC #### [facility] [address] [address] [address] Alexis Brink Platelet mean volume (Bld) [Entitic vol] 10.7 fL Normal 9.5-13.5 [facility] Comment on above: Performed By: #### C BC #### [facility] [address] [address] [address] Alexis Brink PLT 130 103/ul Critically low 150-450 [facility] Comment on above: Performed By: #### C BC #### [facility] [address] [address] [address] Alexis Brink RBC 4.90 106/ul Normal 4.70-6.10 [facility] Comment on above: Performed By: #### C BC #### [facility] [address] [address] [address] Alexis Brink WBC 7.1 103/ul Normal 4.0-11.0 [facility] Comment on above: Performed By: #### C BC #### [facility] [address] [address] [address] Alexis Brink DIRECT LDLon 02-09-2022 Cholesterol in LDL [Mass/Vol] 144 mg/dL Normal [facility] Comment on above: Performed By: #### D LDL, BMP ####[facility] [id number] [address]Dr. Alexis Brink DLDL NORMAL SEE BELOW Normal [facility] Comment on above: Result Comment: <100 mg/dl OPTIMAL 100 - 129 mg/dl NEAR OR ABOVE OPTIMAL 130 - 159 mg/dl BORDERLINE HIGH 160 - 189 mg/dl HIGH >190 mg/dl VERY HIGH Performed By: #### D LDL, BMP ####[facility] [id number] [address]Dr. Alexis Brink PROF CHEM 8 (BAS METB)on Anion gap [Moles/Vol] 9.3 mmol/L Normal [facility] Comment on above: Performed By: #### D LDL, BMP #### [facility] [address] [address] [address] Alexis Brink Calcium [Mass/Vol] 8.7 mg/dL Normal 8.5-10.1 [facility] Comment on above: Performed By: #### D LDL, BMP #### [facility] [address] [address] [address] Alexis Brink Chloride [Moles/Vol] 103 mmol/L Normal 98-107 [facility] Comment on above: Performed By: #### D LDL, BMP #### [facility] [address] [address] [address] Alexis Brink CO2 [Moles/Vol] 32.1 mmol/L Critically high 21.0-32.0 [facility] Comment on above: Performed By: #### D LDL, BMP #### [facility] [address] [place] [address] Dr. Alexis Brink Creatinine [Mass/Vol] 1.35 mg/dL Critically high 0.70-1.30 [facility] Comment on above: Performed By: #### D LDL, BMP #### [facility] [address] [place] [address] Dr. Alexis Brink EGFR-AF AFGHAN >60 Normal >=60 [facility] Comment on above: Performed By: #### D LDL, BMP #### [facility] [address] [address] [address] Alexis Brink EGFR-NON AF AFGHAN 51 mL/min/1.73m2 Critically low >=60 [facility] Comment on above: Performed By: #### D LDL, BMP #### [facility] [address] [address] [address] Alexis Brink Glucose [Mass/Vol] 90 mg/dL Normal 74-106 [facility] Comment on above: Performed By: #### D LDL, BMP #### [facility] [address] [address] [address] Alexis Brink Potassium [Moles/Vol] 4.4 mmol/L Normal 3.5-5.1 [facility] Comment on above: Performed By: #### D LDL, BMP #### [facility] [address] [address] [address] Alexis Brink Sodium [Moles/Vol] 140 mmol/L Normal 136-145 [facility] Comment on above: Performed By: #### D LDL, BMP #### [facility] [address] [place] [address] Dr. Alexis Brink Urea nitrogen [Mass/Vol] 16.0 mg/dL Normal 7.0-18.0 [facility] Comment on above: Performed By: #### D LDL, BMP #### [facility] [address] [place] [address] Dr. Alexis Brink Urea nitrogen/Creatinin e [Mass ratio] 11.9 mg/mg Normal [facility] Comment on above: Performed By: #### D LDL, BMP #### [facility] [address] [place] [address] Dr. Alexis Brink UA RANDOMon 02-09-2022 Bilirubin Ql (U) Negative Normal NEGATIVE [facility] Comment on above: Performed By: #### U A #### [facility] [address] [place] [address] Dr. Alexis Brink Clarity (U) CLEAR Normal CLEAR [facility] Comment on above: Performed By: #### U A #### [facility] [address] [place] [address] Dr. Alexis Brink Color (U) YELLOW Normal YELLOW [facility] Comment on above: Performed By: #### U A #### [facility] [address] [place] [address] Dr. Alexis Brink Glucose Ql (U) Negative Normal NEGATIVE [facility] Comment on above: Performed By: #### U A #### [facility] [address] [place] [address] Dr. Alexis Brink Hemoglobin Ql (U) Negative Normal NEGATIVE [facility] Comment on above: Performed By: #### U A #### [facility] [address] [address] [address] Alexis Brink Ketones Ql (U) Negative Normal NEGATIVE [facility] Comment on above: Performed By: #### U A #### [facility] [address] [place] [address] Dr. Alexis rBink LEUKOCYTES Negative Normal NEGATIVE [facility] Comment on above: Performed By: #### U A #### [facility] [address] [place] [address] Dr. Alexis Brink Nitrite Ql (U) Negative Normal NEGATIVE [facility] Comment on above: Performed By: #### U A #### [facility] [address] [place] [address] Dr. Alexis Brink pH (U) 7.0 [pH] Normal 5-9 [facility] Comment on above: Performed By: #### U A #### [facility] [address] [place] [address] Dr. Alexis Brink SPEC GRAVITY 1.015 Normal 1.005-<=1.025 [facility] Comment on above: Performed By: #### U A #### [facility] [address] [place] [address] Dr. Alexis Brink UA PROTEIN Negative Normal NEGATIVE/ TRACE [facility] Comment on above: Performed By: #### U A #### [facility] [address] [place] [address] Dr. Alexis Brink Urobilinogen Qn (U) 1.0 {Kay'U}/dL Normal 0.2 - 1.0 [facility] Comment on above: Performed By: #### U A #### [facility] [address] [place] [address] Dr. Alexis Brink XR CHEST 2 Von [...] by: LYDIA HAWLEY Date: 2021-12-06 15:42 Normal [facility] Nonvisit Note - PTon 018 Nonvisit Note - PT Cert letter refaxed for signature this date - third and final attempt. Normal [facility] Nonvisit Note - PTon 018 Nonvisit Note - PT Cert letter refaxed to Dr Gooden's office. Second attempt. Normal [facility] Coding Summary.on 01-25-2018 Coding Summary. CODING DATE: 01/25/2018 FINAL [facility] STATUS: PAYOR: Medicare ADMIT DX: REASON [...] [place] Date Saved: 01/25/2018 10:54 am Normal [facility] Coding Summary. CODING DATE: 01/25/2018 FINAL [facility] STATUS: PAYOR: Medicare ADMIT DX: REASON [...] [place] Date Saved: 01/25/2018 10:54 am Normal [facility] SURGICAL PATHOLOGYon 05-15-2 018 SURGICAL PATHOLOGY [facility]: [id number] Physician: BETH GOODEN MD FINAL DIAGNOSISRight hip, arthroplasty - Severe degenerative joint disease.J/shelbie 01/07/2018 Layton Díaz M.D.(Electronic Signature) SPECIMEN SUBMITTEDA: [...] to 8.5 x 8.5 x 1.8 cm. Clinical Nutritionist sectionsare submitted as follows: A1 soft tissue, A2 bone submitted afterdecalcification.B Юлия/lachelle 01/01/2018 Gross examination performed at [facility] [address] [facility] [address] of Report: 01/07/2018Date of Procedure: 01/01/2018Date of Receipt: 01/01/2018Submitted by: BETH GOODEN MDLocation: [id number] interpretation performed at [facility], [address],[facility] [address]. Normal [facility] Comment on above: Performed By: #### S ####See report for performing lab information. Vital Signs Date Time Vital Sign Value Performing Clinician Facility 01-22-2024 09:16-0400 Body height 167.64 cm [facility] 01-22-2024 09:160400 Body mass index (BMI) [Ratio] 29.3 kg/m2 [facility] 01-22-2024 09:160400 Body weight 82.55 kg [facility] 01-22-2024 09:16-0400 Diastolic blood pressure 72 mm[Hg] [facility] 01-22-2024 09:16-0400 Heart rate 64 /min [facility] 01-22-2024 09:16-0400 Respiratory rate 20 /min [facility] 01-22-2024 09:16-0400 Systolic blood pressure 131 mm[Hg] [facility] 09-28-2023 11:00-0500 Body height 167.64 cm Cecilio Ball Other [facility] Other 09-28-2023 11:00-0500 Body mass index (BMI) [Ratio] 30.24 kg/m2 Cecilio Ball Other [facility] Other 09-28-2023 11:00-0500 Body weight 85 kg Cecilio Ball Other [facility] Other 09-28-2023 11:00-0500 Respiratory rate 20 /min Cecilio Ball Other [facility] Other 09-28-2023 11:00-0500 SaO2% (BldA) [Mass fraction] 97 % Cecilio Ball Other [facility] Other 09-11-2023 10:45-0500 Body height 167.64 cm Cecilio Ball Other [facility] Other 09-11-2023 10:45-0500 Body mass index (BMI) [Ratio] 29.86 kg/m2 Cecilio Ball Other [facility] Other 09-11-2023 10:45-0500 Body temperature 97.5 [degF] Cecilio Ball Other [facility] Other 09-11-2023 10:45-0500 Body weight 83.92 kg Cecilio Ball Other [facility] Other 09-11-2023 10:45-0500 Diastolic blood pressure 81 mm[Hg] Cecilio Ball Other [facility] Other 09-11-2023 10:45-0500 Respiratory rate 20 /min Cecilio Ball Other [facility] Other 09-11-2023 10:45-0500 SaO2% (BldA) [Mass fraction] 98 % Cecilio Ball Other [facility] Other 09-11-2023 10:45-0500 Systolic blood pressure 161 mm[Hg] Cecilio Ball Other [facility] Other 08-01-2023 10:15-0500 Body height 167.64 cm Cecilio Ball Other [facility] Other 08-01-2023 10:15-0500 Body mass index (BMI) [Ratio] 29.86 kg/m2 Cecilio Ball Other [facility] Other 08-01-2023 10:15-0500 Body weight 83.92 kg Cecilio Ball Other [facility] Other 08-01-2023 10:15-0500 Diastolic blood pressure 79 mm[Hg] Cecilio Ball Other [facility] Other 08-01-2023 10:15-0500 Respiratory rate 20 /min Cecilio Ball Other [facility] Other 08-01-2023 10:15-0500 Systolic blood pressure 172 mm[Hg] Cecilio Ball Other [facility] Other 07-17-2023 10:15-0500 Body height 167.64 cm Cecilio Ball Other [facility] Other 07-17-2023 10:15-0500 Body mass index (BMI) [Ratio] 29.89 kg/m2 Cecilio Ball Other [facility] Other 07-17-2023 10:15-0500 Body weight 84.01 kg Cecilio Ball Other [facility] Other 07-17-2023 10:15-0500 Diastolic blood pressure 78 mm[Hg] Cecilio Ball Other [facility] Other 07-17-2023 10:15-0500 Respiratory rate 20 /min Cecilio Ball Other [facility] Other 07-17-2023 10:15-0500 Systolic blood pressure 172 mm[Hg] Cecilio Ball Other [facility] Other 07-10-2023 14:45-0500 Body height 167.64 cm Cecilio Ball Other [facility] Other 07-10-2023 14:45-0500 Body mass index (BMI) [Ratio] 29.47 kg/m2 Cecilio Ball Other [facility] Other 07-10-2023 14:45-0500 Body weight 82.83 kg Cecilio Ball Other [facility] Other 07-10-2023 14:45-0500 Diastolic blood pressure 80 mm[Hg] Cecilio Ball Other [facility] Other 07-10-2023 14:45-0500 Respiratory rate 20 /min Cecilio Ball Other [facility] Other 07-10-2023 14:45-0500 Systolic blood pressure 150 mm[Hg] Cecilio Ball Other [facility] Other 06-20-2023 08:30-0400 Body height 167.64 cm Cecilio Ball Other [facility] Other 06-20-2023 08:30-0400 Body mass index (BMI) [Ratio] 29.6 kg/m2 Cecilio Ball Other [facility] Other 06-20-2023 08:30-0400 Body weight 83.19 kg Cecilio Ball Other [facility] Other 06-20-2023 08:30-0400 Diastolic blood pressure 76 mm[Hg] Cecilio Ball Other [facility] Other 06-20-2023 08:30-0400 Respiratory rate 20 /min Cecilio Ball Other [facility] Other 06-20-2023 08:30-0400 Systolic blood pressure 157 mm[Hg] Cecilio Ball Other [facility] Other 05-30-2023 13:45-0400 Body height 167.64 cm Cecilio Ball Other [facility] Other 05-30-2023 13:45-0400 Body mass index (BMI) [Ratio] 28.95 kg/m2 Cecilio Ball Other [facility] Other 05-30-2023 13:45-0400 Body weight 81.38 kg Cecilio Ball Other [facility] Other 05-30-2023 13:45-0400 Diastolic blood pressure 78 mm[Hg] Cecilio Ball Other [facility] Other 05-30-2023 13:45-0400 Respiratory rate 16 /min Cecilio Ball Other [facility] Other 05-30-2023 13:45-0400 Systolic blood pressure 158 mm[Hg] Cecilio Ball Other [facility] Other 02-14-2023 08:30-0400 Body height 167.64 cm Cecilio Ball Other [facility] Other 02-14-2023 08:30-0400 Body mass index (BMI) [Ratio] 28.57 kg/m2 Cecilio Ball Other [facility] Other 02-14-2023 08:30-0400 Body weight 80.29 kg Cecilio Ball Other [facility] Other 02-14-2023 08:30-0400 Diastolic blood pressure 80 mm[Hg] Cecilio Ball Other [facility] Other 02-14-2023 08:30-0400 Respiratory rate 16 /min Cecilio Ball Other [facility] Other 02-14-2023 08:30-0400 Systolic blood pressure 135 mm[Hg] Cecilio Ball Other [facility] Other 02-01-2023 08:15-0400 Body height 167.64 cm Jose Enrique [place] II Other [facility] Other 02-01-2023 08:15-0400 Body mass index (BMI) [Ratio] 27.44 kg/m2 Jose Enrique Benji II Other [facility] Other 02-01-2023 08:15-0400 Body weight 77.11 kg Jose Enrique [place] II Other [facility] Other 12-11-2022 10:30-0400 Body height 167.64 cm Cecilio Ball Other [facility] Other 12-11-2022 10:30-0400 Body mass index (BMI) [Ratio] 28.66 kg/m2 Cecilio Ball Other [facility] Other 12-11-2022 10:30-0400 Body weight 80.56 kg Cecilio Ball Other [facility] Other 12-11-2022 10:30-0400 Diastolic blood pressure 76 mm[Hg] Cecilio Ball Other [facility] Other 12-11-2022 10:30-0400 Respiratory rate 12 /min Cecilio Ball Other [facility] Other 12-11-2022 10:30-0400 Systolic blood pressure 151 mm[Hg] Cecilio Ball Other [facility] Other 11-09-2022 16:00-0400 Body mass index (BMI) [Ratio] 29.21 kg/m2 Jose Enrique [place] II Other [facility] Other 11-09-2022 16:00-0400 Body weight 82.1 kg Jose Enrique Benji CHERELLE Other [facility] Other 11-09-2022 10:30-0400 Body height 167.64 cm Cecilio Ball Other [facility] Other 11-09-2022 10:30-0400 Body mass index (BMI) [Ratio] 29.23 kg/m2 Cecilio Ball Other [facility] Other 11-09-2022 10:30-0400 Body weight 82.15 kg Cecilio Ball Other [facility] Other 11-09-2022 10:30-0400 Diastolic blood pressure 79 mm[Hg] Cecilio Ball Other [facility] Other 11-09-2022 10:30-0400 Respiratory rate 20 /min Cecilio Ball Other [facility] Other 11-09-2022 10:30-0400 Systolic blood pressure 152 mm[Hg] Cecilio Ball Other [facility] Other 10-12-2022 10:00-0500 Body height 167.64 cm Cecilio Ball Other [facility] Other 10-12-2022 10:00-0500 Body mass index (BMI) [Ratio] 29.24 kg/m2 Cecilio Ball Other [facility] Other 10-12-2022 10:00-0500 Body weight 82.19 kg Cecilio Ball Other [facility] Other 10-12-2022 10:00-0500 Diastolic blood pressure 70 mm[Hg] Cecilio Ball Other [facility] Other 10-12-2022 10:00-0500 Respiratory rate 12 /min Cecilio Sourav Other [facility] Other 10-12-2022 10:00-0500 Systolic blood pressure 102 mm[Hg] Cecilio Benjamin Other [facility] Other Encounters Encounter Date Encounter Type Care Provider Facility Start: 03-24-2024 End: 03-24-2024 ambulatory Maddie Villalobos MD Facility: [facility] Start: 03-10-2024 End: 03-10-2024 ambulatory Andbeto Villalobos MD Facility: [facility] Start: 02-25-2024 End: 02-25-2024 ambulatory Andbeto Villalobos MD Facility: [facility] Start: 02-11-2024 End: 02-11-2024 ambulatory Andbeto Villalobos MD Facility: [facility] Start: 01-28-2024 End: 01-28-2024 ambulatory Andbeto Villalobos MD Facility: [facility] Start: 01-22-2024 End: 01-22-2024 ambulatory [facility] Work Phone: Start: 01-22-2024 End: 01-22-2024 Patient encounter procedure [facility] Work Phone: Start: 10-30-2023 Non-patient / Non-visit [facility] Work Phone: Start: 09-28-2023 End: 09-28-2023 ambulatory Cecilio Sourav Other [facility] Other Start: 09-28-2023 Office outpatient vi sit 15 minutes Cecilio Benjamin [facility] Start: 09-28-2023 Telephone encounter Cecilio Benjamin [facility] Start: 09-21-2023 End: 09-21-2023 ambulatory Cecilio Benjamin Other [facility] Other Start: 09-21-2023 Telephone encounter Cecilio Ball [facility] Start: 09-11-2023 End: 09-11-2023 ambulatory Cecilio Ball Other [facility] Other Start: 09-11-2023 Office outpatient vi sit 15 minutes Cecilio Ball [facility] Start: 09-11-2023 Telephone encounter Cecilio Ball [facility] Start: 09-03-2023 End: 09-03-2023 ambulatory Cecilio Ball Other [facility] Other Start: 09-03-2023 Telephone encounter Cecilio Ball FP [facility] Start: 08-03-2023 End: 08-03-2023 ambulatory Cecilio Ball Other [facility] Other Start: 08-03-2023 Telephone encounter Cecilio Ball FP [facility] Start: 08-01-2023 End: 08-01-2023 ambulatory Cecilio Ball Other [facility] Other Start: 08-01-2023 Office outpatient vi sit 15 minutes Cecilio Ball [facility] Start: 07-17-2023 End: 07-17-2023 ambulatory Cecilio Ball Other [facility] Other Start: 07-17-2023 Office outpatient vi sit 15 minutes Cecilio Ball [facility] Start: 07-10-2023 End: 07-10-2023 ambulatory Cecilio Ball Other [facility] Other Start: 07-10-2023 Office outpatient vi sit 15 minutes Cecilio Ball [facility] Start: 06-20-2023 End: 06-20-2023 ambulatory Cecilio Ball Other [facility] Other Start: 06-20-2023 Office outpatient vi sit 25 minutes Cecilio Ball [facility] Start: 06-15-2023 End: 06-15-2023 ambulatory Cecilio Ball Other [facility] Other Start: 06-15-2023 Telephone encounter Cecilio DENISE [facility] Start: 05-30-2023 End: 05-30-2023 ambulatory Cecilio Benjamin Other [facility] Other Start: 05-30-2023 Office outpatient vi sit 15 minutes Cecilio Benjamin [facility] Start: 03-20-2023 Telephone encounter David Jaeger DO Work Phone: [facility] Comment on above: Follow Up Phone Call Start: 03-15-2023 End: 03-15-2023 ambulatory DAVID JAEGER Facility:[facility] Start: 02-27-2023 Orders Only David Marcos DO Work Phone: Procedures Comment on above: Pseudoclaudication s yndrome (Primary Dx); Lumbar radiculopathy Start: 02-26-2023 Telephone encounter David Jaeger DO Work Phone: [facility] Comment on above: Procedure Start: 02-19-2023 Telephone encounter David Jaeger DO Work Phone: [facility] Comment on above: Appointment Start: 02-14-2023 End: 02-14-2023 ambulatory Cecilio Benjamin Other [employer] Other Start: 02-14-2023 Patient encounter procedure Cecilio Benjamin [facility] Start: 02-13-2023 End: 02-13-2023 ambulatory Cecilio Benjamin Other [employer] Other Start: 02-13-2023 Telephone encounter Cecilio DENISE [facility] Start: 02-08-2023 End: 02-08-2023 ambulatory Cecilio Benjamin Other [employer] Other Start: 02-08-2023 Telephone encounter Cecilio DENISE [facility] Start: 02-01-2023 End: 02-01-2023 ambulatory Jose Enrique Leblanc II Other [employer] Other Start: 02-01-2023 Office outpatient vi sit 25 minutes Jose Enrique G[place] II [facility] Start: 12-11-2022 End: 12-11-2022 ambulatory Cecilio Benjamin Other [employer] Other Start: 12-11-2022 Office outpatient vi sit 15 minutes Cecilio Ball [facility] Start: 11-09-2022 End: 11-09-2022 ambulatory Jose Enrique Leblanc II Facility:[facility] Start: 11-09-2022 End: 11-09-2022 Patient encounter procedure MD Jose Enrique Leblanc II Work Phone: [facility] Start: 11-09-2022 End: 11-09-2022 ambulatory MD Jose Enrique Leblanc II Work Phone: [facility] Work Phone: Start: 11-09-2022 Office outpatient ne w 45 minutes Jose Enrique Leblanc II [facility] Start: 11-09-2022 Office outpatient vi sit 15 minutes Cecilio Ball [facility] Start: 11-05-2022 End: 11-05-[address] CECILIO BENJAMIN Facility:[facility] Start: 10-12-2022 End: 10-12-2022 ambulatory Cecilio Benjamin Other [employer] Other Start: 10-12-2022 Office outpatient vi sit 25 minutes Cecilio [facility] Start: 09-27-2022 End: 09-27-2022 ambulatory Cecilio Benjamin Other [employer] Other Start: 09-27-2022 Telephone encounter Cecilio DEINSE [facility] Start: 09-26-2022 End: 09-27-[address] CECILIO BENJAMIN Facility:[facility] Start: 08-25-2022 End: 08-25-2022 ambulatory Cecilio Benjamin Other [employer] Other Start: 08-25-2022 Telephone encounter Cecilio DENISE [facility] Start: 08-10-2022 End: 08-10-[address] CECILIO BENJAMIN Facility:[facility] Start: 02-09-2022 End: 02-10-[address] CECILIO BENJAMIN Facility:[facility] Start: 12-06-2021 End: 12-07-[address] CECILIO BENJAMIN Facility:[facility] Start: 01-22-2018 End: 04-20-2018 Patient encounter [id number] AUGUSTINE BENJAMIN [place] [place] Date Procedure Procedure Detail Performing Clinician Start: 11-09-2022 Pelvis X-ray MD Jose Enrique Leblanc II Work Phone: Start: 11-09-2022 Radiologic examinati on of knee MD Jose Enrique Leblanc II Work Phone: Plan of Treatment Date Care Activity Detail Author Start: 01-22-2024 Patient referral [facility] Work Phone: Start: 04-20-2023 Influenza vaccination INFLUENZA (#1) [facility] Start: 10-01-2022 COVID-19 VACCINE (5 - Moderna series) COVID-19 VACCINE (5 - Moderna series) [facility] Start: 08-20-2022 ADVANCE DIRECTIVE DISCUSSION ADVANCE DIRECTIVE DISCUSSION [facility] Start: 08-20-2022 DEPRESSION ASSESSMENT DEPRESSION ASS ESSMENT [facility] Start: 09-19-2021 COVID-19 VACCINE (4 - Booster for Moderna series) COVID-19 VACCINE (4 - Booster for Moderna series) [facility] Start: 09-19-2021 COVID-19 VACCINE (4 - Moderna series) COVID-19 VACCINE (4 - Moderna series) [facility] Start: 01-02-2021 DIABETES SCREEN DIABETES SCREEN [facility] Start: 1991 SHINGRIX VACCINE (1 of 2) SHINGRIX VACCINE (1 of 2) [facility] Start: 1960 Urine microalbumin profile DTAP,TDAP,TD (1 - Tdap) [facility] Start: 1959 SPIROMETRY SPIROMETRY [facility] Start: 1947 PNEUMOCOCCAL: 65+ (1 - PCV) PNEUMOCOCCAL: 65+ (1 - PCV) [facility] Comprehensive metabo lic 2000 panel - Serum or Plasma [facility] Patient referral [facility] Work Phone: SPINE INTERVENTION PROCEDURE SPINE INTERVENTION PROCEDURE Procedures Routine Spinal stenosis, lumbar region with neurogenic claudication Lumbar radiculopathy, chronic Ordered: 02/19/2023 [facility] Work Phone: Comment on above: Ordered: 02/19/2023 [facility] Immunization Date Immunization Notes Care Provider Coleman bermudez 05-30-2023 COVID-19 Vaccine Moderna - Documentation Purposes Only Cecilio Benjamin Other [facility] 05-30-2023 influenza virus vaccine, unspecified formulation [facility] 05-30-2023 influenza, high dose seasonal, preservative-free Cecilio Benjamin Other [employer] [facility] Other 06-13-2022 influenza virus vaccine, split virus (incl. purified surface antigen) Cecilio Benjamin Other [facility] Other 06-13-2022 influenza virus vaccine, unspecified formulation [facility] 06-13-2022 influenza, high dose seasonal, preservative-free Jose Enrique Gatlinburg II Other [facility] Other 05-31-2022 COVID-19 Pfizer (bivalent) Jose Enrique Benji II Other [facility] 05-31-2022 COVID-19 Pfizer (Pediatric) Cecilio Benjamin Other [facility] 07-25-2021 COVID-19 Vaccine Moderna - Documentation Purposes Only Jose Enrique Gatlinburg II Other [facility] 05-03-2021 zoster vaccine recombinant Jose Enrique Gatlinburg II Other [facility] 05-03-2021 zoster vaccine, live Benjami n Ball Other [facility] 01-28-2021 zoster vaccine recombinant Jose Enrique Benji II Other [facility] 06-11-2021 zoster vaccine, live Benjami n Ball Other [facility] 10-25-2020 COVID-19 Vaccine Moderna - Documentation Purposes Only Jose Enrique Guerrerole II Other [facility] 09-27-2020 COVID-19 Vaccine Moderna - Documentation Purposes Only Jose Enrique Gatlinburg II Other [facility] 05-24-2020 influenza virus vaccine, split virus (incl. purified surface antigen) Cecilio Benjamin Other [facility] Other 05-24-2020 influenza virus vaccine, unspecified formulation [facility] 01-03-2019 diphtheria, tetanus toxoids and acellular pertussis vaccine, unspecified formulation Cecilio Benjamin Other [facility] 12-25-2018 pneumococcal polysaccharide vaccine, 23 valent Jose Enrique Gatlinburg II Other [facility] 04-30-2018 influenza virus vaccine, split virus (incl. purified surface antigen) Cecilio Benjamin Other [facility] Other 04-30-2018 influenza virus vaccine, unspecified formulation [facility] 04-09-2017 influenza virus vaccine, split virus (incl. purified surface antigen) Cecilio Benjamin Other [facility] Other 04-09-2017 influenza virus vaccine, unspecified formulation [facility] 05-31-2016 zoster vaccine, live Jose Enrique Guerrerole II Other [facility] 05-13-2016 influenza virus vaccine, split virus (incl. purified surface antigen) Cecilio Benjamin Other [facility] Other 05-13-2016 influenza virus vaccine, unspecified formulation [facility] 05-09-2015 influenza virus vaccine, split virus (incl. purified surface antigen) Cecilio Benjamin Other [facility] Other 05-09-2015 influenza virus vaccine, unspecified formulation [facility] 03-06-2015 pneumococcal conjuga te vaccine, 13 valent Jose Enrique Gatlinburg II Other [facility] 05-07-2014 tetanus and diphther ia toxoids, adsorbed, preservative free, for adult use (5 Lf of tetanus toxoid and 2 Lf of diphtheria toxoid) Cecilio Benjamin Other [facility] 04-23-2013 tetanus and diphther ia toxoids, adsorbed, preservative free, for adult use (5 Lf of tetanus toxoid and 2 Lf of diphtheria toxoid) Cecilio Benjamin Other [facility] 08-21-2012 pneumococcal polysaccharide vaccine, 23 valent Cecilio Benjamin Other [facility] 12-12-2011 zoster vaccine, live Jose Enrique Gatlinburg II Other [facility] Payers Date Payer Category Payer Self-pay 2022 Unknown [id number] 2018 Medicare [id number] 2006 Medicare [id number] 2006 Unknown [id number] 1959 Medicare [id number] 2.1 [id number] 1959 Unknown [id number] 2.16. [id number] 1941 Unknown [id number] 2.16.84 [id number] 1941 Unknown [id number] 2.16.84 [id number] 1941 Unknown [id number] 2.16.84 [id number] 1941 Unknown [id number] 2.16.84 [id number] 1941 Unknown [id number] 2.16.84 [id number] 1941 Unknown [id number] 2.16. [id number] 1941 Unknown [id number] 2.16. [id number] 1941 Unknown [id number] 2.16. [id number] 1941 Unknown [id number] 2.16. [id number] 1941 Unknown [id number] 2.16. [id number] Unknown [id number] 2.16.8 [id number] Social History Date Type Detail Facility Start: 05-09-2021 End: 03-15-2023 Sex Assigned At [facility] Start: 1940 Sex Assigned At Male F [facility] Start: 06-13-2017 End: 01-22-2024 Tobacco smoking status WIIS Never smoked tobacco [facility] Start: 06-13-2017 Tobacco use and exposure Smokeless tobacco non-user [facility] Start: 05-09-2021 Alcohol intake Current drinke r of alcohol (finding) [facility] Start: 12-11-2017 Alcohol Comment [facility] Start: 1940 [facility] Start: 05-09-2021 End: 03-15-2023 History of Social function [facility] Adult Depression Screening Assessment 1 [facility] Medical Equipment Procedure Code Equipment Code Equipment Origin al Text Equipment Identifier Dates [place] Swivelock Tenodesis 8mm Biocomposite 19.5mm Suture [place] Eyelet - [id number] Start: 06-29-2017 Sleeve V40 +0mm Offset Java Taper Titanium Adapter Hip - [id number] Start: 01-01-2018 Screw Trident Secur-Fit Torx 6.5mm Titanium 20mm Bone Sterile Acetabular - [id number] Start: 01-01-2018 Clinical Notes 08-25-2022 to 01-22-2024 Note Date & Type Note Facility 01-22-2024 Evaluation note Diagnosis Onset Date Chronic bronchitis, simple a cute Chronic kidney disease, stage 3a acute Elevated cholesterol acute Generalized anxiety disorder acute Hypertension acute Lumbar spondylolysis acute Obstructive sleep apnea acut e Medicare annual wellness visit, subsequent noneactive [facility] Work Phone: [phone] 335-435002-09-2024 Evaluation note* Encounter Date Diagnosis Assessment Notes [...] and clinically improving, no further treatment necessary [employer] Other 02-02-2024 Evaluation note* Encounter Date Diagnosis Assessment Notes Treatment Notes Treatment Clinical Notes Sep, Carotid bruit, unspecified laterality (ICD-10 - R09.89) [employer] Other 01-23-2024 Evaluation note* Encounter Date Diagnosis [...] tid Initiate Prednisone _update office on Sunday [employer] Other 01-15-2024 Evaluation note* Encounter Date Diagnosis Assessment Notes Treatment Notes Treatment Clinical Notes Aug, JONATHAN (generalized anxiety disorder) (ICD-10 - F41.1) [employer] Other 12-13-2023 Evaluation note* Encounter Date Diagnosis [...] best 2/3 readings w/ goal < 135/85 [employer] Other 11-28-2023 Evaluation note* Encounter Date Diagnosis [...] daily for blisters and ulcerations. Moisturizers daily [employer] Other 11-21-2023 Evaluation note* Encounter Date Diagnosis [...] Call if develop increased pain or erythema [employer] Other 11-01-2023 Evaluation note* Encounter Date Diagnosis [...] use, the patient reduces the risk for GA, CVA, HTN, cardiac dysrhythmias and sudden cardiac [...] very active. No change in medical treatment [employer] Other 10-27-2023 Evaluation note* Encounter Date Diagnosis Assessment Notes Treatment Notes Treatment Clinical Notes May, JONATHAN (generalized anxiety disorder) (ICD-10 - F41.1) [employer] Other 10-11-2023 Evaluation note* Encounter Date Diagnosis [...] They may safely use Tylenol as needed. [employer] Other 08-01-2023 Miscellaneous Notes* Telephone Encounter - Neida Porter MA - 03/20/2023 12:26 PM EDT DATE OF SERVICE: 03/15/2023 PATIENT'S PHONE NUMBERS: [phone] (home) OR @[email or web address]@ PROVIDER: Dr. Jaeger PROCEDURE: Elective Pain Management Procedure Left message on machine Asked pt to call back and speak with the specialty triage nurse with update. Please obtain percentage better and the duration of improvement. Please inquire if there were any problems afterwards. Neida Brink documented [facility]23 Miscellaneous Notes* Telephone Encounter - Linda Knox LPN - 02/26/2023 4:42 PM EDT Spoke to patient in [facility] to pre procedure instructions. Pt must have a flag car driver. Pt advised to arrive 30 [...] okay to take. Advised on location of [address] Pt will receive a follow up call several days after by a restaurant hourly team member. If you experience any increase in weakness, difficulty walking or significant increase in pain thatlast more than 4 hours, please proceed to the Emergency Room and tell them you had a spine procedure done recently. Additionally, call us and notify us of these symptoms. Please call [phone] if you have any questions. Pt verbalized understanding. documented in this encounterThe [facility] System07-03-2023 Miscellaneous Notes* Telephone Encounter - Linda Knox LPN - 02/19/2023 11:57 AM EDT Order approved Spoke to daughter in [facility] to pre procedure instructions. Daughter given scheduling number [phone] Pt must have a flag car driver. Pt advised to arrive 30 min prior to the time given by the pantograph setter. Pt advised will also receive a call the day before from the surgery center to confirm date/time. Pt can eat and drink as normal. and Pt can take medications as normal. No alcohol 24 hours prior. Pt is on ASA.- 81 mg okay to take. and must Advised on location of [address] Pt will receive a follow up call several days after by a restaurant hourly team member. If you experience any increase in weakness, difficulty walking or significant increase in pain thatlast more than 4 hours, please proceed to the Emergency Room and tell them you had a spine procedure done recently. Additionally, call us and notify us of these symptoms. Please call [phone] if you have any questions. Pt verbalized [...] call Celi as patient cannot hear well [phone] Patient has been identified by name and birthdate. Duration of symptoms: N/A Person calling: daughter: Celi Call patient at: N/A [phone] (home) [phone] (cell) Was an appointment scheduled: No Closing statement: Results or non-symptom based questions: Thank you for calling [facility], your call will be returned within the next business day. Camilla Jarrell Pss documented in this encounterThe [facility]health System06-28-2023 Evaluation note* Encounter Date Diagnosis Assessment Notes [...] use, the patient reduces the risk for GA, CVA, HTN, cardiac dysrhythmias and sudden cardiac [...] (ICD-10 - F41.1) Healthy diet, keep active [employer] Other 06-22-2023 Evaluation note* Encounter Date Diagnosis Assessment Notes Treatment Notes Treatment Clinical Notes Jan, Elevated cholesterol (ICD-10 - E78.00) Jan, Stage 3a chronic kidney disease (ICD-10 - N18.31) Jan, Primary hypertension (ICD-10 - I10) Jan, Screening PSA (prostate specific antigen) (ICD-10 - Z12.5) Jan, High risk medication use (ICD-10 - Z79.899) [employer] Other 06-15-2023 Evaluation note* Encounter Date Diagnosis [...] this time 6. Follow up as needed [employer] Other 04-24-2023 Evaluation note* Encounter Date Diagnosis [...] use of statin, experiencing ADR and stopped [employer] Other 03-23-2023 Evaluation note* Encounter Date Diagnosis [...] - M17.12) Quad exercises, ice/heat and Tylenol [employer] Other 03-23-2023 Evaluation note* Encounter Date Diagnosis [...] injection well. 6. Follow up as needed [employer] Other 02-23-2023 Evaluation note* Encounter Date Diagnosis [...] use, the patient reduces the risk for GA, CVA, HTN, cardiac dysrhythmias and sudden cardiac [...] tract symptoms (ICD-10 - N40.1) Symptoms tolerable [employer] Other 02-08-2023 Evaluation note* Encounter Date Diagnosis Assessment Notes Treatment Notes Treatment Clinical Notes Sep, Elevated cholesterol (ICD-10 - E78.00) Sep, Stenosis of right carotid artery (ICD-10 - I65.21) Sep, Retinal hemorrhage of right eye (ICD-10 - H35.61) [employer] Other 01-06-2023 Evaluation note* Encounter Date Diagnosis Assessment Notes Treatment Notes Treatment Clinical Notes Aug, Carotid bruit, unspecified laterality (ICD-10 - R09.89) [employer] Other Evaluation noteNo assessment information available [facility] Work Phone: Evaluation noteNo InformationNort Itaro Other Evaluation note* Diagnosis Spinal stenosis, lumbar region with neurogenic claudication- Primary Lumbar radiculopathy, chronic Thoracic or lumbosacral neuritis or radiculitis, unspecified documented in this encounter [facility] note* Diagnosis Pseudoclaudication syndrome- Primary Spinal stenosis, lumbar region, with neurogenic claudication Lumbar radiculopathy Thoracic or lumbosacral neuritis or radiculitis, unspecified Pseudoclaudication syndrome Spinal stenosis, lumbar region, with neurogenic claudication Lumbar radiculopathy Thoracic or lumbosacral neuritis or radiculitis, unspecified documented in this encounter [facility] general Narrative - Reported* Type [...] JANELLE 06/2017 Hospitalization History see surgical history [employer] Other Hospital Discharge instructionsAmbulatory Orders* Referral to Pain Management Location: None [facility] Work Phone: Summary Purpose Family History [...] section and content) DATE CREATED AUTHOR 02/06/2018 [facility] DATE CREATED AUTHOR AUTHOR'S ORGANIZ ATION 06/10/2018 [facility] DATE CREATED AUTHOR AUTHOR'S ORGANIZ ATION 11/06/2022 [facility] DATE CREATED AUTHOR AUTHOR'S ORGANIZ ATION 12/21/2022 [facility] DATE CREATED AUTHOR AUTHOR'S ORGANIZ ATION 03/15/2023 [facility] DATE CREATED AUTHOR AUTHOR'S ORGANIZ ATION 03/22/2023 [facility] DATE CREATED AUTHOR AUTHOR'S ORGANIZ ATION 04/07/2024 [facility] REASON FOR VISIT (unrecogniz ed section and content) Reason Comments Appointment Reason Comments Procedure Reason Comments Follow Up Phone Call Care Teams (unrecognized sec tion and content) Team Status: Inactive Member Role Status Dates Jose Enrique Leblanc II, MD Attending Provider Active [employer] Relationship Specialty Start Date End Date Cecilio Benjamin DO PCP - General Internal Medicine 09/04/13 [employer] Relationship Specialty Start Date End Date Cecilio Benjamin DO PCP - General Internal Medicine 09/04/13 [employer] Relationship Specialty Start Date End Date Cecilio Benjamin DO PCP - General Internal Medicine 09/04/13 [employer] Relationship Specialty Start Date End Date Cecilio [...] or prosecute any alcohol or drug abuse patient.[facility] SystemIn the event this information is protected by the Federal Confidentiality of Alcohol and Drug Abuse Patient Records regulations: The Federal rules restrict any use of the information to criminally investigate or prosecute any alcohol or drug abuse patient.[facility] SystemIn the event this information is protected by the Federal Confidentiality of Alcohol and Drug Abuse Patient Records regulations: The Federal rules restrict any use of the information to criminally investigate or prosecute any alcohol or drug abuse patient.[facility] SystemIn the event this information is protected by the Federal Confidentiality of Alcohol and Drug Abuse Patient Records regulations: The Federal rules restrict any use of the information to criminally investigate or prosecute any alcohol or drug abuse patient.[facility] FOR RECORDS PERTAINING TO PATIENTS WHO ARE [...] BE BASED ON THE PRIMARY CLINICAL RECORDS. [facility] [employer] [facility] provides no warranty or guarantee of the accuracy or completeness of information in this document.
[2024-04-07 07:55] VITALS: BP 138/80; PULSE 66; TEMP 36.5; O2SAT 98
[2024-04-07 08:39] VITALS: BP 148/73; BP 155/74; PULSE 60; O2SAT 98; O2SAT 99
[2024-04-07] MEDS: LIDOCAINE HCL 2% 400 MG/20 ML MDV 16 ML INJ (08:47)
[2024-04-07] MEDS: BUPIVACAINE HCL 0.25% PF 25 MG/10 ML VIAL 4 ML INJ (08:47)
[2024-04-07] MEDS: TRIAMCINOLONE ACETONIDE 40 MG/ML VIAL 80 MG INJ (08:48)
--- NOTE | 2024-04-07 08:50 | P.ON_ITS ---
Date of procedure: 04/07/24 Pre-op diagnosis: Pain due to lumbar spondylosis without myelopathy Post-op diagnosis: same as pre-op Procedure: Procedure: Bilateral L4-5, l5-S1 radiofrequency ablation Medications: Bupivacaine 0.25% 6cc, lidocaine 2% 6cc, kenalog 80mg The patient was seen and examined in the preoperative holding area.? The site was marked.? Written informed consent was obtained and placed on the chart.? The patient was brought to the medical procedure unit and placed in the prone position.? A timeout was completed verifying correct patient, procedure, positioning, and special requirements.? The skin overlying the target points, the designated medial branch, were prepped and draped in the usual sterile fashion.? The target point was achieved with a 20-gauge 15 cm with a 10 mm curved active tip radiofrequency cannula under direct fluoroscopic visualization.? The needle was inserted at level L4 on the right side. Needle tip position was confirmed with lateral fluoroscopic position.? Motor stimulation was carried out at 2 Hz up to 5 volts with the absence of extremity activity.? This was repeated at level L5, S1 on right side.?? Sensory stimulation was carried out.? Concordant pain was realized at the above- mentioned sites.? Then radiofrequency lesioning was carried out times 90 seconds at 80 degrees times 2 lesions at each level.? The radiofrequency probe was removed prior to cannula removal.? The above-mentioned injectate was placed in 1 mL increments.? The needle was removed. The same procedure, with the same steps, was then completed on the left side at the same levels. Insertion sites were covered.? The patient was taken to the postoperative recovery area and monitored for an appropriate length of time before being found suitable for discharge in the company of a responsible adult. Anesthesia: Local Surgeon: Maddie Villalobos Pathology: none sent Condition: stable Disposition: no change
== END 2024-04-07 09:00 | disposition home or self-care (01) ==
PROVIDERS: PCP Internal Medicine; Visit Provider Anesthesiology
DX: M47.816 Spondylosis without myelopathy or radiculopathy, lumbar region (principal)
CPT/HCPCS: 64635; 64636; J0665; J3301

== ENCOUNTER 2024-05-08 14:12 | Outpatient (OUT) | payer MEDICARE, OTHER, SELFPAY ==
--- OUTSIDE RECORDS SUMMARY | 2024-05-08 14:16 | XMS_ITS | CCD ---
Author Organization [facility] Care Team Providers Care Nanosystems Engineer Name Role Phone BRANDON [phone] UNKNOWN Unavailable Unavailable BETH GOODEN Unavailable Unavailable BETH GOODEN Unavailable Unavailable BETH GOODEN Unavailable Unavailable Cecilio Benjamin Unavailable BRANDON, DR RUIZ Primary Care Unavailable DIAB ., JUS Admitting Unavailable DIAB ., JUS Attending Unavailable DIAB ., JUS Consulting Unavailable RASTEGAR, CHUCK Consulting Unavailable BRANDON, DR RIUZ Primary Care Unavailable HAY ., DR GONZALEZ [...] Care Unavailable BRANDON, DR RUIZ Consulting Unavailable LYDIA HAWLEY Consulting Unavailable MD Jose Enrique Leblanc II Attending Provider [phone] Jose Enrique Leblanc II Unavailable Jose Enrique [...] Griselda WHARTON, Maddie Carreno Attending Unavailable Griselda WHATRON, Maddie Carreno Attending Unavailable Griselda WHARTON, Maddie Carreno Attending Unavailable Allergies Allergy Classification Reported Allergen(s) Allergy Type Date of Onset Reaction(s) Facility (7 sources) bacitracin; Translations: [bacitracin] Drug Allergy 09-11-2013 Unknown [facility] Repository (19 sources) Albuterol Drug Allergy Unknown [employer] Other (20 sources) HMG-CoA reductase inhibitor Drug allergy Unknown [employer] Other Medications Current Medications Medication Drug Class(es) [...] uth every 8 hours. (Mild pain reliever) [id number] 200 actuat albuterol 0.09 mg/actuat metered dose [...] Nabumetone Active 500 MG PO Twice daily October 19, 2023 11:07am Start: 02-08-2021 nabumetone [...] on above: Take [address] [facility] 1 hour prior to procedure and [...] Comment on above: Take 1 capsule by [facility] twice daily. 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 Jaeger PROCEDURE: Elective Pain Management [...] work Requesting to call his CELL ONLY [phone] what to do next Leave Detailed messages Neida Porter MA 03/21/2023 2:01 PM Signed Formatted spine intervention order and sent to Dr. Jaeger for approval. Neida Porter MA 03/21/2023 2:01 PM Signed Addended by: NEIDA PORTER on: 03/21/2023 02:01 PM Modules accepted: Orders David Jaeger DO 03/21/2023 2:06 PM Signed Addended by: [...] of spine injection schedulers to call at [phone]. Patient will call if he wants to schedule another injection. 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 Author [...] offered a procedure / surgery at a [facility] facility. Patient and I have [...] indicated on the consent form. [facility] approved time out was performed identifying the site, side and level of procedure prior to start of procedure. [facility] - ELECTIVE PROCEDURE Lumbar Transforaminal Epidural [...] the entire procedure. David Jaeger DO, MBA [facility] 02-26-2023 CNPN Telephone (SPNMAV) RUPERTO THORPE ([id number]) 1940 M [place] Date Time Provider Department 02/26/23 DAVID JAEGER SPJEREMYAV During your visit today, we recorded the following information about you: Linda Knox LPN 02/26/2023 4:49 PM Signed Spoke to patient in [facility] to pre procedure instructions. Pt must have a lyft driver. Pt advised to arrive 30 min [...] take. Advised on location of ASC-2nd floor Located within [facility] Pt will receive a follow up call several days after by a marine steam fitter helper. If you experience any increase in weakness, difficulty walking or significant increase in pain that last more than 4 hours, please proceed to the Emergency Room and tell them you had a spine procedure done recently. Additionally, call us and notify us of these symptoms. Please call [phone] if you have any questions. Pt verbalized [...] 02/26/23 [facility] Unique 02-19-2023 CNPN Telephone (SPNMAV) RUPERTO THROPE ([id number]) 1940 Jill Marie* Date Time Provider Department 02/19/23 DAVID JAEGER SPNMAV During your visit today, we recorded the following information about you: Camilla Jarrell [facility] 02/19/2023 9:27 AM Signed Ruperto [...] call Celi as patient cannot hear well [phone] Patient has been identified by name and birthdate. Duration of symptoms: N/A Person calling: daughter: Celi Call patient at: N/A [phone] (home) [phone] (cell) Was an appointment scheduled: No Closing statement: Results or non-symptom based questions: Thank you for calling [facility], your call will be returned within the next business day. Camilla Knox LPN 02/19/2023 9:45 AM Signed Spine Intervention order formatted for review Linda Knox LPN 02/19/2023 11:59 AM Signed Order approved Spoke to daughter in [facility]ards to pre procedure instructions. Daughter given scheduling number [phone] Pt must have a lyft driver. Pt advised to arrive 30 min prior to the time given by the shoe stainer. Pt advised will also receive a call the day before from the surgery center to confirm date/time. Pt can eat and drink as normal. and Pt can take medications as normal. No alcohol 24 hours prior. Pt is on ASA.- 81 mg okay to take. and must Advised on location of ASC-2nd floor Located within [facility] Pt will receive a follow up call several days after by a marine steam fitter helper. If you experience any increase in weakness, difficulty walking or significant increase in pain that last more than 4 hours, please proceed to the Emergency Room and tell them you had a spine procedure done recently. Additionally, call us and notify us of these symptoms. Please call [phone] if you have any questions. Pt verbalized understanding. 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 Normal [facility] XR knee LT 4V*on 11-09-2022 XR knee LT 4V* [facility] Main [address] [address] XRay Report Signed Patient: Ruperto Thorpe MR#: [id number] 5 : 1940 Acct:[id number] Age/Sex: 82 / M ADM Date: 11/09/22 Loc: [facility] Room: Type: [facility] Attending Dr: Jose Enrique Leblanc II, [...] M.D.11/09/2022 5:03 PM Dictation Location: [place] [address] Transcribed By: [facility] 11/09/22 170 Dictated By: Darren Yuen II, MD 11/09/221700 Signed By: 11/09/22 170 Normal [facility] XR knee LT 4V* [facility] [employer] Other XR knee LT 4V* [facility] Main [facility] [employer] Other XR knee LT 4V* [address] [facility] [employer] Other XR knee LT 4V* [place] [address] [facility] [employer] Other XR knee LT 4V* XRay Report [employer] Other XR knee LT 4V* Signed [employer] Other XR knee LT 4V* Patient: Ruperto Thorpe MR#: [id number] [employer] Other XR knee LT 4V* 5 [facility] Other XR knee LT 4V* : 1940 Acct:[id number] [employer] Other XR knee LT 4V* Age/Sex: 82 / M ADM Date: 11/09/22 [employer] Other XR knee LT 4V* Loc: SOXD Room: Type : [facility] [employer] Other XR knee LT 4V* Attending Dr: Jose Enrique Leblanc II, MD [employer] Other XR knee LT 4V* Copies to: Jose Enrique Leblanc MD [employer] Other XR knee LT 4V* Ordering Provider: Jose Enrique Leblanc MD [employer] Other XR knee LT 4V* Date of Service: 11/09/22 [employer] Other XR knee LT 4V* XR/XR knee LT 4V*: Acute pain of left knee [employer] Other XR knee LT 4V* XR knee LT 4V* 11/09/2022 3:15 PM [employer] Other XR knee LT 4V* SIGNS AND SYMPTOMS: Acute pain of left knee [employer] Other XR knee LT 4V* PROTOCOL: Frontal, lateral, oblique, and sunrise views of the left knee [employer] Other XR knee LT 4V* COMPARISON: 11/05/2022 [employer] Other XR knee LT 4V* FINDINGS: [facility] Other XR knee LT 4V* There is similar narrowing of the weightbearing joint spaces with chondrocalcinosis of the menisci [employer] Other XR knee LT 4V* suggesting underlyin g CPPD. There is narrowing of the patellofemoral joint space with spurring at [employer] Other XR knee LT 4V* the superior pole of patella. There is a small joint effusion. No soft tissue swelling. No acute [employer] Other XR knee LT 4V* displaced fracture. Vascular calcifications are present posteriorly. [employer] Other XR knee LT 4V* XR/XR knee LT 4V* [employer] Other XR knee LT 4V* IMPRESSION: [employer] Other XR knee LT 4V* Tricompartmental degenerative changes are noted in the left knee with a small joint effusion. [employer] Other XR knee LT 4V* There is chondrocalcinosis of the menisci suggesting underlying CPPD. [employer] Other XR knee LT 4V* Impression dictated by: Darren Yuen M.D.11/09/2022 5:03 PM [employer] Other XR knee LT 4V* Dictation Location: [place] [address] [employer] Other XR knee LT 4V* Transcribed By: COLIN 11/09/22 170 [employer] Other XR knee LT 4V* Dictated By: Darren Yuen II, MD 11/09/221700 [employer] Other XR knee LT 4V* Signed By: [facility] Other XR knee LT 4V* 11/09/221702 [employer] Other XR pelvis 1-2Von 11-09-2022 XR pelvis 1-2V [facility] Main [place] [address] [place] [address] XRay Report Signed Patient: Ruperto Thorpe MR#: [id number] 5 : 1940 Acct:[id number] Age/Sex: 82 / M ADM Date: 11/09/22 Loc: [facility] Room: Type: [facility] Attending Dr: Jose Enrique Leblanc II, [...] M.D.11/09/2022 5:01 PM Dictation Location: [place] [address] Transcribed By: [facility] 11/09/221700 Dictated By: Darren Yuen II, MD 11/09/221699 Signed By: 11/09/221700 [facility] XR pelvis 1-2V XR/XR pelvis 1-2V: Acute pain of left knee [employer] Other XR pelvis 1-2V XR pelvis 1-2V 11/09/2022 3:15 PM [employer] Other XR pelvis 1-2V SIGNS AND SYMPTOMS: Left knee pain [employer] Other XR pelvis 1-2V PROTOCOL: Frontal radiograph of the chest [employer] Other XR pelvis 1-2V COMPARISON: None Nort [employer] Other XR pelvis 1-2V There is mild narrowing of the left hip joint space with subcortical cystic change on both sides of [employer] Other XR pelvis 1-2V the joint along the acetabular there is chondrocalcinosis of the labrum overlying the superior [employer] Other XR pelvis 1-2V acetabular rim and superior lateral femoral head. The bony ring of the pelvis is intact. There is [employer] Other XR pelvis 1-2V total right hip arthroplasty. Degenerative changes are noted in the sacroiliac joints. No fracture [employer] Other XR pelvis 1-2V is [facility] Other XR pelvis 1-2V XR/XR pelvis 1-2V [employer] Other XR pelvis 1-2V Degenerative changes are noted in the left hip with findings suspicious for previous labral [employer] Other XR pelvis 1-2V pathology. [employer] Other XR pelvis 1-2V Postoperative change s are noted in the right hip with total right hip arthroplasty hardware. [employer] Other XR pelvis 1-2V Impression dictated by: Darren Yuen M.D.11/09/2022 5:01 PM [employer] Other XR pelvis 1-2V Transcribed By: COLIN 11/09/22 170 [employer] Other XR pelvis 1-2V Dictated By: Darren Yuen II, MD 11/09/221699 [employer] Other XR pelvis 1-2V 11/09/22 170 [employer] Other XR KNEE LT 4V or >on [...] There is chondrocalcinosis. Soft tissues: Unremarkable. IMPRESSION: Gpzy-ra-gzvieobs osteoarthritis as described above. Chondrocalcinosis. No acute fracture or dislocation. Electronically authenticated by: CHUCK JONES Date: 2022-11-05 11:19 Normal [facility] US CAROTID ART BILon 023 [...] JONAS MCLEOD Date: 2022-09-26 10:58 Normal [facility] CBC AUTO DIFFon 08-10-2022 BASO # 0.0 103/ul Normal 0.0-0.1 [facility] Comment on above: Performed By: #### C BC #### [facility] [address] [place] [address] [address] Alexis Brink Basophils/100 WBC (Bld) 0.7 % Normal 0.2-2.0 [facility] Comment on above: Performed By: #### C BC #### [facility] [address] [place] [address] [address] Alexis Brink EO # 0.3 103/ul Normal 0.0-0.7 [facility] Comment on above: Performed By: #### C BC #### [facility] [address] [place] [address] Dr. Alexis Brink Eosinophils/100 WBC (Bld) 6.1 % Normal 0.9-7.0 [facility] Comment on above: Performed By: #### C BC #### [facility] [address] [place] [address] Dr. Alexis Brink Erythrocyte distribution width (RBC) [Ratio] 12.1 % Normal 11.0-15.0 [facility] Comment on above: Performed By: #### C BC #### [facility] [address] [place] [address] Dr. Alexis Brink Hematocrit (Bld) [Volume fraction] 44.2 % Normal 42.0-54.0 [facility] Comment on above: Performed By: #### C BC #### [facility] [address] [place] [address] Dr. Alexis Brink Hemoglobin (Bld) [Mass/Vol] 14.9 g/dL Normal 14.0-18.0 [facility] Comment on above: Performed By: #### C BC #### [facility] [address] [place] [address] Dr. Alexis Brink IG # 0.01 10e3/ul Normal 0.00-0.03 [facility] Comment on above: Performed By: #### C BC #### [facility] [address] [place] [address] Dr. Alexis Brink IG % 0.2 % Normal 0.0-0.5 [facility] Comment on above: Performed By: #### C BC #### [facility] [address] [place] [address] Dr. Alexis Brink LYMPH # 1.2 103/ul Normal 1.2-3.8 [facility] Comment on above: Performed By: #### C BC #### [facility] [address] [place] [address] Dr. Alexis Brink Lymphocytes/100 WBC (Bld) 21.3 % Normal 20.5-60.0 [facility] Comment on above: Performed By: #### C BC #### [facility] [address] [place] [address] Dr. Alexis Brink MANUAL DIFF REQ NO Normal [facility] Comment on above: Performed By: #### C BC #### [facility] [address] [place] [address] Dr. Alexis Brink MCH (RBC) [Entitic mass] 30.7 pg Normal 25.9-34.0 [facility] Comment on above: Performed By: #### C BC #### [facility] [address] [place] [address] Dr. Alexis Brink MCHC (RBC) [Mass/Vol] 33.7 g/dL Normal 29.9-35.2 [facility] Comment on above: Performed By: #### C BC #### [facility] [address] [place] [address] Dr. Alexis Brink MCV (RBC) [Entitic vol] 91.1 fL Normal 80.0-94.0 [facility] Comment on above: Performed By: #### C BC #### [facility] [address] [place] [address] Dr. Alexis Brink MONO # 0.5 103/ul Normal 0.3-0.8 [facility] Comment on above: Performed By: #### C BC #### [facility] [address] [place] [address] Dr. Alexis Brink Monocytes/100 WBC (Bld) 8.5 % Normal 1.7-12.0 [facility] Comment on above: Performed By: #### C BC #### [facility] [address] [place] [address] Dr. Alexis Brink NEUT # 3.5 103/ul Normal 1.4-6.5 [facility] Comment on above: Performed By: #### C BC #### [facility] [address] [place] [address] Dr. Alexis Brink Neutrophils/100 WBC (Bld) 63.2 % Normal 43.0-75.0 [facility] Comment on above: Performed By: #### C BC #### [facility] [address] [place] [address] [address] Alexis Brink Platelet mean volume (Bld) [Entitic vol] 10.0 fL Normal 9.5-13.5 [facility] Comment on above: Performed By: #### C BC #### [facility] [address] [place] [address] [address] Alexis Brink PLT 120 103/ul Critically low 150-450 [facility] Comment on above: Performed By: #### C BC #### [facility] [address] [place] [address] [address] Alexis Brink RBC 4.85 106/ul Normal 4.70-6.10 [facility] Comment on above: Performed By: #### C BC #### [facility] [address] [place] [address] [address] Alexis Brink WBC 5.6 103/ul Normal 4.0-11.0 [facility] Comment on above: Performed By: #### C BC #### [facility] [address] [place] [address] [address] Alexis Brink [facility] SARS-CoV-2 (COVID-19) RNA RICKY+probe Ql (Unsp spec) Not detected Normal NOT DETECTED [facility] Comment on above: Result Comment: This test is not yet approved or cleared by the [place] FDA. When there are no FDA-approved or cleared tests available, and other criteria are met, FDA can make tests available under an emergency access mechanism called an Emergency Use Authorization (EUA). The EUA for this test is supported by the [place] of Health and Human Service's (HHS's) declaration [...] with SARS-CoV-2. Performed By: #### C VDTBH ####[facility] [address] [place], [place] [address]DrLainey Brink INFLUENZA A AND B AGon 08-10 INFLUANEGH SEE BELOW Normal [facility] Comment on above: Result Comment: Nega tive for Flu A protein angiten. Infection due to Flu A cannot be ruled out. Flu A angiten in the sample may be below the detection limit of the test. Performed By: #### I NFLUAB ####[facility] [address] [place], [place] [address]Dr. Alexis Brink INFLUBNEGH SEE BELOW Normal [facility] Comment on above: Result Comment: Nega tive for Flu B protein antigen. Infection due to Flu B cannot be ruled out. Flu B antigen in the sample may be below the detection limit of the test. Performed By: #### I NFLUAB ####[facility] [address] [place], [place] [address]Dr. Alexis Brink INFLUENZA A AG Negative Normal NEGATIVE SEE COMMENT [facility] Comment on above: Performed By: #### I NFLUAB ####[facility] [address] [place], [place] [address]Dr. Alexis Brink INFLUENZA B AG Negative Normal NEGATIVE SEE COMMENT [facility] Comment on above: Performed By: #### I NFLUAB ####[facility] [address] [place], [place] [address]DrLainey Brink INTERNAL CONTROLS Within Normal Limits Normal Wi thin Normal Limits [facility] Comment on above: Performed By: #### I NFLUAB ####[facility] [address] [place], [place] [address]DrLainey Brink PROF CHEM 8 (BAS METB)on Anion gap [Moles/Vol] 11.4 mmol/L Normal [facility] Comment on above: Performed By: #### B MP, HSTROPN #### [facility] [address] [place] [address] [address] Alexis Brink Calcium [Mass/Vol] 8.9 mg/dL Normal 8.5-10.1 [facility] Comment on above: Performed By: #### B NARA, HSTROPN #### [facility] [address] [place] [address] Dr. Alexis Brink Chloride [Moles/Vol] 102 mmol/L Normal 98-107 [facility] Comment on above: Performed By: #### B NARA, HSTROPN #### [facility] [address] [place] [address] Dr. Alexis Brink CO2 [Moles/Vol] 28.8 mmol/L Normal 21.0-32.0 [facility] Comment on above: Performed By: #### B NARA, HSTROPN #### [facility] [address] [place] [address] Dr. Alexis Brink Creatinine [Mass/Vol] 1.35 mg/dL Critically high 0.70-1.30 [facility] Comment on above: Performed By: #### Sanjiv BAINS, HSTROPN #### [facility] [address] [place] [address] Dr. Alexis Brink EGFR-AF JAPANESE >60 Normal >=60 [facility] Comment on above: Performed By: #### B NARA, HSTROPN #### [facility] [address] [place] [address] Dr. Alexis Brink EGFR-NON AF JAPANESE 51 mL/min/1.73m2 Critically low >=60 [facility] Comment on above: Performed By: #### B NARA, HSTROPN #### [facility] [address] [place] [address] Dr. Alexis Brink Glucose [Mass/Vol] 109 mg/dL Critically high 74-106 [facility] Comment on above: Performed By: #### B NARA, HSTROPN #### [facility] [address] [place] [address] Dr. Alexis Brink Potassium [Moles/Vol] 4.2 mmol/L Normal 3.5-5.1 [facility] Comment on above: Performed By: #### B NARA, HSTROPN #### [facility] [address] [address] [address] Alexis Brink Sodium [Moles/Vol] 138 mmol/L Normal 136-145 [facility] Comment on above: Performed By: #### B NARA, HSTROPN #### [facility] [address] [place] [address] [address] Alexis Brink Urea nitrogen [Mass/Vol] 18.0 mg/dL Normal 7.0-18.0 [facility] Comment on above: Performed By: #### B NARA, HSTROPN #### [facility] [address] [address] [address] Alexis Brink Urea nitrogen/Creatinin e [Mass ratio] 13.3 mg/mg Normal [facility] Comment on above: Performed By: #### B NARA, HSTROPN #### [facility] [address] [place] [address] Dr. Alexis Brink TROPONIN, HIGH SENSITIVITYon 08-10-2022 HSTROP 22.2 pg/mL Normal 4.0-76.1 [facility] Comment on above: Result Comment: CUT- OFF POINTS HAVE BEEN ESTABLISHED BASED ON THE FOURTH UNIVERSAL DEFINITIONS OF MYOCARDIAL INFARCTION. THE UPPER REFERENCE LIMIT (URL) OF TROPONIN, DEFINED THE 99TH PERCENTILE OF cTnI DISTRIBUTION IN A REFERENCE POPULATION, HAS BEEN CONFIRMED THE DECISION THRESHOLD FOR [place] DIAGNOSIS. Performed By: #### B NARA, HSTROPN #### [facility] [address] [place] [address] Dr. Alexis Brink XR CHEST 1 Von [...] acute cardiopulmonary process. Electronically authenticated by: RADHA UNEDRWOOD Date: 2022-08-10 16:07 Normal [facility] CBC AUTO DIFFon 02-09-2022 BASO # 0.0 103/ul Normal 0.0-0.1 [facility] Comment on above: Performed By: #### C BC #### [facility] [address] [place] [address] Dr. Alexis Brink Basophils/100 WBC (Bld) 0.6 % Normal 0.2-2.0 [facility] Comment on above: Performed By: #### C BC #### [facility] [address] [place] [address] Dr. Alexis Brink EO # 0.5 103/ul Normal 0.0-0.7 [facility] Comment on above: Performed By: #### C BC #### [facility] [address] [place] [address] Dr. Alexis Brink Eosinophils/100 WBC (Bld) 7.2 % Critically high 0.9-7.0 [facility] Comment on above: Performed By: #### C BC #### [facility] [address] [place] [address] Dr. Alexis Brink Erythrocyte distribution width (RBC) [Ratio] 12.4 % Normal 11.0-15.0 [facility] Comment on above: Performed By: #### C BC #### [facility] [address] [place] [address] Dr. Alexis Brink Hematocrit (Bld) [Volume fraction] 45.5 % Normal 42.0-54.0 [facility] Comment on above: Performed By: #### C BC #### [facility] [address] [place] [address] Dr. Alexis Brink Hemoglobin (Bld) [Mass/Vol] 15.4 g/dL Normal 14.0-18.0 [facility] Comment on above: Performed By: #### C BC #### [facility] [address] [place] [address] Dr. Alexis Brink IG # 0.02 10e3/ul Normal 0.00-0.03 [facility] Comment on above: Performed By: #### C BC #### [facility] [address] [place] [address] Dr. Alexis Brink IG % 0.3 % Normal 0.0-0.5 [facility] Comment on above: Performed By: #### C BC #### [facility] [address] [place] [address] Dr. Alexis Brink LYMPH # 1.3 103/ul Normal 1.2-3.8 [facility] Comment on above: Performed By: #### C BC #### [facility] [address] [place] [address] Dr. Alexis Brink Lymphocytes/100 WBC (Bld) 17.8 % Critically low 20.5-60.0 [facility] Comment on above: Performed By: #### C BC #### [facility] [address] [place] [address] Dr. Alexis Brink MANUAL DIFF REQ NO Normal [facility] Comment on above: Performed By: #### C BC #### [facility] [address] [place] [address] Dr. Alexis Brink MCH (RBC) [Entitic mass] 31.4 pg Normal 25.9-34.0 [facility] Comment on above: Performed By: #### C BC #### [facility] [address] [place] [address] Dr. Alexis Brink MCHC (RBC) [Mass/Vol] 33.8 g/dL Normal 29.9-35.2 [facility] Comment on above: Performed By: #### C BC #### [facility] [address] [place] [address] Dr. Alexis Brink MCV (RBC) [Entitic vol] 92.9 fL Normal 80.0-94.0 [facility] Comment on above: Performed By: #### C BC #### [facility] [address] [place] [address] Dr. Alexis Brink MONO # 0.7 103/ul Normal 0.3-0.8 [facility] Comment on above: Performed By: #### C BC #### [facility] [address] [place] [address] Dr. Alexis Brink Monocytes/100 WBC (Bld) 9.6 % Normal 1.7-12.0 [facility] Comment on above: Performed By: #### C BC #### [facility] [address] [address] [address] Alexis Brink NEUT # 4.6 103/ul Normal 1.4-6.5 [facility] Comment on above: Performed By: #### C BC #### [facility] [address] [address] [address] Alexis Brink Neutrophils/100 WBC (Bld) 64.5 % Normal 43.0-75.0 [facility] Comment on above: Performed By: #### C BC #### [facility] [address] [place] [address] Dr. Alexis Brink Platelet mean volume (Bld) [Entitic vol] 10.7 fL Normal 9.5-13.5 [facility] Comment on above: Performed By: #### C BC #### [facility] [address] [address] [address] Alexis Brink PLT 130 103/ul Critically low 150-450 [facility] Comment on above: Performed By: #### C BC #### [facility] [address] [place] [address] Dr. Alexis Brink RBC 4.90 106/ul Normal 4.70-6.10 [facility] Comment on above: Performed By: #### C BC #### [facility] [address] [place] [address] Dr. Alexis Brink WBC 7.1 103/ul Normal 4.0-11.0 [facility] Comment on above: Performed By: #### C BC #### [facility] [address] [address] [address] Alexis Brink DIRECT LDLon 02-09-2022 Cholesterol in LDL [Mass/Vol] 144 mg/dL Normal [facility] Comment on above: Performed By: #### D LDL, BMP ####[facility] [address] [address]Dr. Alexis Brink DLDL NORMAL SEE BELOW Normal [facility] Comment on above: Result Comment: <100 mg/dl OPTIMAL 100 - 129 mg/dl NEAR OR ABOVE OPTIMAL 130 - 159 mg/dl BORDERLINE HIGH 160 - 189 mg/dl HIGH >190 mg/dl VERY HIGH Performed By: #### D LDL, BMP ####[facility] [address] [place], [place] [address]LyDr. Alexis Brink PROF CHEM 8 (BAS METB)on Anion gap [Moles/Vol] 9.3 mmol/L Normal [facility] Comment on above: Performed By: #### D LDL, BMP #### [facility] [address] [address] [address] Alexis Brink Calcium [Mass/Vol] 8.7 mg/dL Normal 8.5-10.1 [facility] Comment on above: Performed By: #### D LDL, BMP #### [facility] [address] [address] [address] Alexis Brink Chloride [Moles/Vol] 103 mmol/L Normal 98-107 [facility] Comment on above: Performed By: #### D LDL, BMP #### [facility] [address] [address] [address] Alexis Brink CO2 [Moles/Vol] 32.1 mmol/L Critically high 21.0-32.0 [facility] Comment on above: Performed By: #### D LDL, BMP #### [facility] [address] [address] [address] Alexis Brink Creatinine [Mass/Vol] 1.35 mg/dL Critically high 0.70-1.30 [facility] Comment on above: Performed By: #### D LDL, BMP #### [facility] [address] [address] [address] Alexis Brink EGFR-AF JAPANESE >60 Normal >=60 [facility] Comment on above: Performed By: #### D LDL, BMP #### [facility] [address] [address] [address] Alexis rBink EGFR-NON AF JAPANESE 51 mL/min/1.73m2 Critically low >=60 [facility] Comment on above: Performed By: #### D LDL, BMP #### [facility] [address] [address] [address] Alexis Brink Glucose [Mass/Vol] 90 mg/dL Normal 74-106 [facility] Comment on above: Performed By: #### D LDL, BMP #### [facility] [address] [address] [address] Alexis Brink Potassium [Moles/Vol] 4.4 mmol/L Normal 3.5-5.1 [facility] Comment on above: Performed By: #### D LDL, BMP #### [facility] [address] [address] [address] Alexis Brink Sodium [Moles/Vol] 140 mmol/L Normal 136-145 [facility] Comment on above: Performed By: #### D LDL, BMP #### [facility] [address] [address] [address] Alexis Brink Urea nitrogen [Mass/Vol] 16.0 mg/dL Normal 7.0-18.0 [facility] Comment on above: Performed By: #### D LDL, BMP #### [facility] [address] [address] [address] Alexis Brink Urea nitrogen/Creatinin e [Mass ratio] 11.9 mg/mg Normal [facility] Comment on above: Performed By: #### D LDL, BMP #### [facility] [address] [address] [address] Alexis Brink UA RANDOMon 02-09-2022 Bilirubin Ql (U) Negative Normal NEGATIVE [facility] Comment on above: Performed By: #### U A #### [facility] [address] [address] [address] Alexis Brink Clarity (U) CLEAR Normal CLEAR [facility] Comment on above: Performed By: #### U A #### [facility] [address] [place] [address] Dr. Alexis Brink Color (U) YELLOW Normal YELLOW [facility] Comment on above: Performed By: #### U A #### [facility] [address] [address] [address] Alexis Brink Glucose Ql (U) Negative Normal NEGATIVE [facility] Comment on above: Performed By: #### U A #### [facility] [address] [place] [address] Dr. Alexis Brink Hemoglobin Ql (U) Negative Normal NEGATIVE [facility] Comment on above: Performed By: #### U A #### [facility] [address] [place] [address] Dr. Alexis Brink Ketones Ql (U) Negative Normal NEGATIVE [facility] Comment on above: Performed By: #### U A #### [facility] [address] [place] [address] Dr. Alexis Brink LEUKOCYTES Negative Normal NEGATIVE [facility] Comment on above: Performed By: #### U A #### [facility] [address] [place] [address] Dr. Alexis Brink Nitrite Ql (U) Negative Normal NEGATIVE [facility] Comment on above: Performed By: #### U A #### [facility] [address] [place] [address] Dr. Alexis Brink pH (U) 7.0 [pH] Normal 5-9 [facility] Comment on above: Performed By: #### U A #### [facility] [address] [place] [address] Dr. Alexis Brink SPEC GRAVITY 1.015 Normal 1.005-<=1.025 [facility] Comment on above: Performed By: #### U A #### [facility] [address] [place] [address] Dr. Alexis Brink UA PROTEIN Negative Normal NEGATIVE/ TRACE [facility] Comment on above: Performed By: #### U A #### [facility] [address] [place] [address] Dr. Alexis Brink Urobilinogen Qn (U) 1.0 {Kay'U}/dL Normal 0.2 - 1.0 [facility] Comment on above: Performed By: #### U A #### [facility] [address] [place] [address] Dr. Alexis Brink XR CHEST 2 Von [...] by: LYDIA HAWLEY Date: 2021-12-06 15:42 Normal [facility] Nonvisit Note - PTon 018 Nonvisit Note - PT Cert letter refaxed for signature this date - third and final attempt. Normal [facility] Nonvisit Note - PTon 018 Nonvisit Note - PT Cert letter refaxed to Dr Gooden's office. Second attempt. Normal [facility] Coding Summary.on 01-25-2018 Coding Summary. CODING DATE: 01/25/2018 FINAL [facility] STATUS: PAYOR: Medicare ADMIT DX: REASON [...] P[place]leton Date Saved: 01/25/2018 10:54 am Normal [facility] Coding Summary. CODING DATE: 01/25/2018 FINAL [facility] STATUS: PAYOR: Medicare ADMIT DX: REASON [...] Dominique Pendleton Date Saved: 01/25/2018 10:54 am [facility] SURGICAL PATHOLOGYon -15-2 018 SURGICAL PATHOLOGY [facility]: [id number] Physician: BETH GOODEN MD FINAL DIAGNOSISRight hip, arthroplasty - Severe degenerative joint disease.PARMINDER/shelbie 01/07/2018 Layton Díaz M.D.(Electronic Signature) SPECIMEN SUBMITTEDA: [...] to 8.5 x 8.5 x 1.8 cm. Plasma Cutting Machine Operator sectionsare submitted as follows: A1 soft tissue, A2 bone submitted afterdecalcification.B Юлия/lachelle 01/01/2018 Gross examination performed at [facility], [address] [place] [address] [facility] [id number] of Report: 01/07/2018Date of Procedure: 01/01/2018Date of Receipt: 01/01/2018Submitted by: BETH GOODEN MDLocation: [id number] interpretation performed at [facility], [facility] [address]. Normal [facility] Comment on above: Performed By: #### S ####See report for performing lab information. Vital Signs Date Time Vital Sign Value Performing Clinician Facility 01-22-2024 09:16-0400 Body height 167.64 cm [facility] 01-22-2024 09:16-0400 Body mass index (BMI) [Ratio] 29.3 kg/m2 [facility] 01-22-2024 09:16-0400 Body weight 82.55 kg [facility] 01-22-2024 09:16-0400 Diastolic blood pressure 72 mm[Hg] [facility] 01-22-2024 09:16-0400 Heart rate 64 /min [facility] 01-22-2024 09:16-0400 Respiratory rate 20 /min [facility] 01-22-2024 09:16-0400 Systolic blood pressure 131 mm[Hg] [facility] 09-28-2023 11:00-0500 Body height 167.64 cm Cecilio Ball Other [facility] [employer] Other 09-28-2023 11:00-0500 Body mass index (BMI) [Ratio] 30.24 kg/m2 Cecilio Ball Other [facility] [employer] Other 09-28-2023 11:00-0500 Body weight 85 kg Cecilio Ball Other [facility] [employer] Other 09-28-2023 11:00-0500 Respiratory rate 20 /min Cecilio Ball Other [facility] [employer] Other 09-28-2023 11:00-0500 SaO2% (BldA) [Mass fraction] 97 % Cecilio Ball Other [employer] [facility] [employer] Other 09-11-2023 10:45-0500 Body height 167.64 cm Cecilio Ball Other [facility] Other 09-11-2023 10:45-0500 Body mass index (BMI) [Ratio] 29.86 kg/m2 Cecilio Ball Other [facility] Other 09-11-2023 10:45-0500 Body temperature 97.5 [degF] Cecilio Ball Other [facility] Other 09-11-2023 10:45-0500 Body weight 83.92 kg Cecilio Ball Other [facility] Other 09-11-2023 10:45-0500 Diastolic blood pressure 81 mm[Hg] Cecilio Ball Other [facility] Other 09-11-2023 10:45-0500 Respiratory rate 20 /min Cecilio Ball Other [facility] Other 09-11-2023 10:45-0500 SaO2% (BldA) [Mass fraction] 98 % Cecilio Ball Other [facility] Other 09-11-2023 10:45-0500 Systolic blood pressure 161 mm[Hg] Cecilio Ball Other [facility] Other 08-01-2023 10:15-0500 Body height 167.64 cm Cecilio Ball Other [facility] Other 08-01-2023 10:15-0500 Body mass index (BMI) [Ratio] 29.86 kg/m2 Cecilio Ball Other [facility] Other 08-01-2023 10:15-0500 Body weight 83.92 kg Cecilio Ball Other [facility] Other 08-01-2023 10:15-0500 Diastolic blood pressure 79 mm[Hg] Cecilio Ball Other [facility] Other 08-01-2023 10:15-0500 Respiratory rate 20 /min Cecilio Ball Other [facility] Other 08-01-2023 10:15-0500 Systolic blood pressure 172 mm[Hg] Cecilio Ball Other [facility] Other 07-17-2023 10:15-0500 Body height 167.64 cm Cecilio Ball Other [facility] Other 07-17-2023 10:15-0500 Body mass index (BMI) [Ratio] 29.89 kg/m2 Cecilio Ball Other [facility] Other 07-17-2023 10:15-0500 Body weight 84.01 kg Cecilio Ball Other [facility] Other 07-17-2023 10:15-0500 Diastolic blood pressure 78 mm[Hg] Cecilio Ball Other [facility] Other 07-17-2023 10:15-0500 Respiratory rate 20 /min Cecilio Ball Other [facility] Other 07-17-2023 10:15-0500 Systolic blood pressure 172 mm[Hg] Cecilio Ball Other [facility] [employer] Other 07-10-2023 14:45-0500 Body height 167.64 cm Cecilio Ball Other [facility] Other 07-10-2023 14:45-0500 Body mass index (BMI) [Ratio] 29.47 kg/m2 Cecilio Ball Other [facility] [employer] Other 07-10-2023 14:45-0500 Body weight 82.83 kg Cecilio Ball Other [facility] Other 07-10-2023 14:45-0500 Diastolic blood pressure 80 mm[Hg] Cecilio Ball Other [facility] [employer] Other 07-10-2023 14:45-0500 Respiratory rate 20 /min Cecilio Ball Other [facility] Other 07-10-2023 14:45-0500 Systolic blood pressure 150 mm[Hg] Cecilio Ball Other [facility] Other 06-20-2023 08:30-0400 Body height 167.64 cm Cecilio Ball Other [facility] Other 06-20-2023 08:30-0400 Body mass index (BMI) [Ratio] 29.6 kg/m2 Cecilio Ball Other [facility] [employer] Other 06-20-2023 08:30-0400 Body weight 83.19 kg Cecilio Ball Other [facility] Other 06-20-2023 08:30-0400 Diastolic blood pressure 76 mm[Hg] Cecilio Ball Other [facility] Other 06-20-2023 08:30-0400 Respiratory rate 20 /min Cecilio Ball Other [facility] Other 06-20-2023 08:30-0400 Systolic blood pressure 157 mm[Hg] Cecilio Ball Other [facility] Other 05-30-2023 13:45-0400 Body height 167.64 cm Cecilio Ball Other [facility] Other 05-30-2023 13:45-0400 Body mass index (BMI) [Ratio] 28.95 kg/m2 Cecilio Ball Other [facility] Other 05-30-2023 13:45-0400 Body weight 81.38 kg Cecilio Ball Other [facility] [employer] Other 05-30-2023 13:45-0400 Diastolic blood pressure 78 mm[Hg] Cecilio Ball Other [facility] Other 05-30-2023 13:45-0400 Respiratory rate 16 /min Cecilio Ball Other [facility] Other 05-30-2023 13:45-0400 Systolic blood pressure 158 mm[Hg] Cecilio Ball Other [facility] Other 02-14-2023 08:30-0400 Body height 167.64 cm Cecilio Ball Other [facility] Other 02-14-2023 08:30-0400 Body mass index (BMI) [Ratio] 28.57 kg/m2 Cecilio Ball Other [facility] Other 02-14-2023 08:30-0400 Body weight 80.29 kg Cecilio Ball Other [facility] Other 02-14-2023 08:30-0400 Diastolic blood pressure 80 mm[Hg] Cecilio Ball Other [facility] Other 02-14-2023 08:30-0400 Respiratory rate 16 /min Cecilio Ball Other [facility] Other 02-14-2023 08:30-0400 Systolic blood pressure 135 mm[Hg] Cecilio Ball Other [facility] Other 02-01-2023 08:15-0400 Body height 167.64 cm Jose Enrique Benji II Other [facility] Other 02-01-2023 08:15-0400 Body mass index (BMI) [Ratio] 27.44 kg/m2 Jose Enrique Benji II Other [facility] Other 02-01-2023 08:15-0400 Body weight 77.11 kg Jose Enrique Botetourt II Other [facility] Other 12-11-2022 10:30-0400 Body height 167.64 cm Cecilio Ball Other [facility] Other 12-11-2022 10:30-0400 Body mass index (BMI) [Ratio] 28.66 kg/m2 Cecilio Ball Other [facility] [employer] Other 12-11-2022 10:30-0400 Body weight 80.56 kg Cecilio Ball Other [facility] Other 12-11-2022 10:30-0400 Diastolic blood pressure 76 mm[Hg] Cecilio Ball Other [facility] Other 12-11-2022 10:30-0400 Respiratory rate 12 /min Cecilio Ball Other [facility] Other 12-11-2022 10:30-0400 Systolic blood pressure 151 mm[Hg] Cecilio Ball Other [facility] Other 11-09-2022 16:00-0400 Body mass index (BMI) [Ratio] 29.21 kg/m2 Jose Enrique Botetourt II Other [facility] [employer] Other 11-09-2022 16:00-0400 Body weight 82.1 kg Jose Enrique Leblanc II Other [facility] Other 11-09-2022 10:30-0400 Body height 167.64 cm Cecilio Ball Other [facility] Other 11-09-2022 10:30-0400 Body mass index (BMI) [Ratio] 29.23 kg/m2 Cecilio Ball Other [facility] [employer] Other 11-09-2022 10:30-0400 Body weight 82.15 kg Cecilio Ball Other [facility] Other 11-09-2022 10:30-0400 Diastolic blood pressure 79 mm[Hg] Cecilio Ball Other [facility] Other 11-09-2022 10:30-0400 Respiratory rate 20 /min Cecilio Ball Other [facility] Other 11-09-2022 10:30-0400 Systolic blood pressure 152 mm[Hg] Cecilio Ball Other [facility] Other 10-12-2022 10:00-0500 Body height 167.64 cm Cecilio Ball Other [facility] Other 10-12-2022 10:00-0500 Body mass index (BMI) [Ratio] 29.24 kg/m2 Cecilio Ball Other [facility] Other 10-12-2022 10:00-0500 Body weight 82.19 kg Cecilio Ball Other [facility] Other 10-12-2022 10:00-0500 Diastolic blood pressure 70 mm[Hg] Cecilio Ball Other [facility] Other 10-12-2022 10:00-0500 Respiratory rate 12 /min Cecilio Benjamin Other [facility] Other 10-12-2022 10:00-0500 Systolic blood pressure 102 mm[Hg] Cecilio Benjamin Other [employer] [employer] Other Encounters Encounter Date Encounter Type Care Provider Facility Start: 04-07-2024 End: 04-07-2024 [facility] Start: 03-31-2024 End: 03-31-2024 ambulatory Maddie Villalobos MD [facility]: [facility] Start: 03-24-2024 End: 03-24-2024 ambulatory Maddie Villalobos MD [facility]: [facility] Start: 03-10-2024 End: 03-10-2024 ambulatory Maddie Villalobos MD Facility: [facility] Start: 02-25-2024 End: 02-25-2024 ambulatory Maddie Villalobos MD Facility: [facility] Start: 02-11-2024 End: 02-11-2024 ambulatory Maddie Villalobos MD Facility: [facility] Start: 01-28-2024 End: 01-28-2024 ambulatory Maddie Villalobos MD Facility: [facility] Start: 01-22-2024 End: 01-22-2024 ambulatory [facility] Work Phone: Start: 01-22-2024 End: 01-22-2024 Patient encounter procedure [facility] Work Phone: Start: 10-30-2023 Non-patient / Non-visit [facility] Work Phone: Start: 09-28-2023 End: 09-28-2023 ambulatory Cecilio Ball Other [facility] [employer] Other Start: 09-28-2023 Office outpatient vi sit 15 minutes Cecilio Ball [facility] Start: 09-28-2023 Telephone encounter Cecilio Ball [facility] Start: 09-21-2023 End: 09-21-2023 ambulatory Cecilio Ball Other [facility] Other Start: 09-21-2023 Telephone encounter Cecilio Ball [facility] Start: 09-11-2023 End: 09-11-2023 ambulatory Cecilio Ball Other [facility] Other Start: 09-11-2023 Office outpatient vi sit 15 minutes Cecilio Ball [facility] Start: 09-11-2023 Telephone encounter Cecilio Ball [facility] Start: 09-03-2023 End: 09-03-2023 ambulatory Cecilio Ball Other [facility] Other Start: 09-03-2023 Telephone encounter Cecilio Ball [facility] Start: 08-03-2023 End: 08-03-2023 ambulatory Cecilio Ball Other [facility] Other Start: 08-03-2023 Telephone encounter Cecilio Ball [facility] Start: 08-01-2023 End: 08-01-2023 ambulatory Cecilio Ball Other [facility] [employer] Other Start: 08-01-2023 Office outpatient vi sit 15 minutes Cecilio Ball [facility] Start: 07-17-2023 End: 07-17-2023 ambulatory Cecilio Ball Other [facility] [employer] Other Start: 07-17-2023 Office outpatient vi sit 15 minutes Cecilio Ball [facility] Start: 07-10-2023 End: 07-10-2023 ambulatory Cecilio Ball Other [facility] Other Start: 07-10-2023 Office outpatient vi sit 15 minutes Cecilio Ball [facility] Start: 06-20-2023 End: 06-20-2023 ambulatory Cecilio Benjamin Other [employer] Other Start: 06-20-2023 Office outpatient vi sit 25 minutes Cecilio Benjamin [facility] Start: 06-15-2023 End: 06-15-2023 ambulatory Cecilio Benjamin Other [employer] Other Start: 06-15-2023 Telephone encounter Cecilio Benjamin [facility] Start: 05-30-2023 End: 05-30-2023 ambulatory Cecilio Benjamin Other [employer] Other Start: 05-30-2023 Office outpatient vi sit 15 minutes Cecilio Benjamin [facility] Start: 03-20-2023 Telephone encounter David Jaeger DO Work Phone: [facility] [place] Comment on above: Follow Up Phone Call Start: 03-15-2023 End: 03-15-2023 ambulatory DAVID JAEGER Facility:[facility] Start: 02-27-2023 Orders Only David Marcos DO Work Phone: Procedures Comment on above: Pseudoclaudication s yndrome (Primary Dx); Lumbar radiculopathy Start: 02-26-2023 Telephone encounter David Jaeger DO Work Phone: [facility] [place] Comment on above: Procedure Start: 02-19-2023 Telephone encounter David Jaeger DO Work Phone: [facility] [place] Comment on above: Appointment Start: 02-14-2023 End: 02-14-2023 ambulatory Cecilio Benjamin Other [employer] Other Start: 02-14-2023 Patient encounter procedure Cecilio Benjamni [facility] Start: 02-13-2023 End: 02-13-2023 ambulatory Cecilio Benjamin Other [employer] Other Start: 02-13-2023 Telephone encounter Cecilio DENISE [facility] Start: 02-08-2023 End: 02-08-2023 ambulatory Cecilio Benjamin Other [employer] Other Start: 02-08-2023 Telephone encounter Cecilio Benjamin [facility] Start: 02-01-2023 End: 02-01-2023 ambulatory Jose Enrique Lbelanc II Other [employer] Other Start: 02-01-2023 Office outpatient vi sit 25 minutes Jose Enrique Benji II [facility] Start: 12-11-2022 End: 12-11-2022 ambulatory Cecilio Benjamin Other [employer] Other Start: 12-11-2022 Office outpatient vi sit 15 minutes Cecilio Benjamin [facility] Start: 11-09-2022 End: 11-09-2022 ambulatory Jose Enrique Leblanc II Facility:[facility] Start: 11-09-2022 End: 11-09-2022 Patient encounter procedure MD Jose Enrique Leblanc II Work Phone: [facility] Start: 11-09-2022 End: 11-09-2022 ambulatory MD Jose Enrique Leblanc II Work Phone: [facility] Work Phone: Start: 11-09-2022 Office outpatient ne w 45 minutes Jose Enrique Leblanc II [facility] Start: 11-09-2022 Office outpatient vi sit 15 minutes Cecilio Benjamin [facility] Start: 11-05-2022 End: 11-05-[address] CECILIO BENJAMIN Facility:[facility] Start: 10-12-2022 End: 10-12-2022 ambulatory Cecilio Benjamin Other [employer] Other Start: 10-12-2022 Office outpatient vi sit 25 minutes Cecilio Benjamin [facility] Start: 09-27-2022 End: 09-27-2022 ambulatory Cecilio Benjamin Other [employer] Other Start: 09-27-2022 Telephone encounter Cecilio Benjamin [facility] Start: 09-26-2022 End: 09-27-[address] CECILIO BENJAMIN Facility:[facility] Start: 08-25-2022 End: 08-25-2022 ambulatory Cecilio Benjamin Other [facility] [employer] Other Start: 08-25-2022 Telephone encounter Cecilio Benjamin [facility] Start: 08-10-2022 End: 08-10-[address] CECILIO BENJAMIN Facility:[facility] Start: 02-09-2022 End: 02-10-[address] CECILIO BENJAMIN Facility:[facility] Start: 12-06-2021 End: 12-07-[address] CECILIO BENJAMIN Facility:[facility] Start: 01-22-2018 End: 04-20-2018 Patient encounter [id number] AUGUSTINE BRANDON Facility:[facility] Procedures Date Procedure Procedure Detail Performing Clinician Start: 11-09-2022 Pelvis X-ray MD Jose Enrique Leblanc II Work Phone: Start: 11-09-2022 Radiologic examinati on of knee MD Jose Enrique Leblanc II Work Phone: Plan of Treatment Date Care Activity Detail Author Start: 01-22-2024 Patient referral [facility] Work Phone: Start: 04-20-2023 Influenza vaccination INFLUENZA (#1) [facility] Start: 10-01-2022 COVID-19 VACCINE (5 - Moderna series) COVID-19 VACCINE (5 - Moderna series) [facility] Start: 08-20-2022 ADVANCE DIRECTIVE DISCUSSION ADVANCE DIRECTIVE DISCUSSION [facility] Start: 08-20-2022 DEPRESSION ASSESSMENT DEPRESSION ASS ESSMENT [facility] Start: 09-19-2021 COVID-19 VACCINE (4 - Booster for Moderna series) COVID-19 VACCINE (4 - Booster for Moderna series) [facility] Start: 09-19-2021 COVID-19 VACCINE (4 - Moderna series) COVID-19 VACCINE (4 - Moderna series) [facility] Start: 01-02-2021 DIABETES SCREEN DIABETES SCREEN [facility] Start: 1991 SHINGRIX VACCINE (1 of 2) SHINGRIX VACCINE (1 of 2) [facility] Start: 1960 Urine microalbumin profile DTAP,TDAP,TD (1 - Tdap) [facility] Start: 1959 SPIROMETRY SPIROMETRY [facility] Start: 1947 PNEUMOCOCCAL: 65+ (1 - PCV) PNEUMOCOCCAL: 65+ (1 - PCV) [facility] Comprehensive metabo lic 2000 panel - Serum or Plasma [facility] Patient referral [facility] Work Phone: SPINE INTERVENTION PROCEDURE SPINE INTERVENTION PROCEDURE Procedures Routine Spinal stenosis, lumbar region with neurogenic claudication Lumbar radiculopathy, chronic Ordered: 02/19/2023 [facility] Work Phone: Comment on above: Ordered: 02[facility]19[facility]2023 [facility] Immun[facility] Immunization Date Immunization Notes Care Provider Fa cili 05-30-2023 COVID-19 Vaccine Moderna - Documentation Purposes Only Cecilio Benjamin Other [facility] 05-30-2023 influenza virus vaccine, unspecified formulation [facility] 05-30-2023 influenza, high dose seasonal, preservative-free Cecilio Benjamin Other [facility] [employer] Other 06-13-2022 influenza virus vaccine, split virus (incl. purified surface antigen) Cecilio Benjamin Other [facility] [employer] Other 06-13-2022 influenza virus vaccine, unspecified formulation [facility] 06-13-2022 influenza, high dose seasonal, preservative-free Jose Enrique Leblanc II Other [facility] [employer] Other 05-31-2022 COVID-19 Pfizer (bivalent) Jose Enrique Leblanc II Other [facility] 05-31-2022 COVID-19 Pfizer (Pediatric) Cecilio Benjamin Other [facility] 07-25-2021 COVID-19 Vaccine Moderna - Documentation Purposes Only Jose Enrique Leblanc II Other [facility] 05-03-2021 zoster vaccine recombinant Jose Enrique Botetourt II Other [facility] 05-03-2021 zoster vaccine, live Benjami n Ball Other [facility] 01-28-2021 zoster vaccine recombinant Jose Enrique Botetourt II Other [facility] 01-28-2021 zoster vaccine, live Benjami n Ball Other [facility] 10-25-2020 COVID-19 Vaccine Moderna - Documentation Purposes Only Jose Enrique Botetourt II Other [facility] 09-27-2020 COVID-19 Vaccine Moderna - Documentation Purposes Only Jose Enrique Botetourt II Other [facility] 05-24-2020 influenza virus vaccine, split virus (incl. purified surface antigen) Cecilio Benjamin Other [facility] [employer] Other 05-24-2020 influenza virus vaccine, unspecified formulation [facility] 01-03-2019 diphtheria, tetanus toxoids and acellular pertussis vaccine, unspecified formulation Cecilio Benjamin Other [facility] 12-25-2018 pneumococcal polysaccharide vaccine, 23 valent Jose Enrique Botetourt II Other [facility] 04-30-2018 influenza virus vaccine, split virus (incl. purified surface antigen) Cecilio Benjamin Other [facility] [employer] Other 04-30-2018 influenza virus vaccine, unspecified formulation [facility] 04-09-2017 influenza virus vaccine, split virus (incl. purified surface antigen) Cecilio Benjamin Other [facility] [employer] Other 04-09-2017 influenza virus vaccine, unspecified formulation [facility] 05-31-2016 zoster vaccine, live Jose Enrique Benji II Other [facility] 05-13-2016 influenza virus vaccine, split virus (incl. purified surface antigen) Cecilio Benjamin Other [facility] [employer] Other 05-13-2016 influenza virus vaccine, unspecified formulation [facility] 05-09-2015 influenza virus vaccine, split virus (incl. purified surface antigen) Cecilio Benjamin Other [employer] [facility] [employer] Other 05-09-2015 influenza virus vaccine, unspecified formulation [facility] 03-06-2015 pneumococcal conjuga te vaccine, 13 valent Jose Enrique Botetourt II Other [facility] 05-07-2014 tetanus and diphther ia toxoids, adsorbed, preservative free, for adult use (5 Lf of tetanus toxoid and 2 Lf of diphtheria toxoid) Cecilio Benjamin Other [facility] 04-23-2013 tetanus and diphther ia toxoids, adsorbed, preservative free, for adult use (5 Lf of tetanus toxoid and 2 Lf of diphtheria toxoid) Cecilio Benjamin Other [facility] 08-21-2012 pneumococcal polysaccharide vaccine, 23 valent Cecilio Benjamin Other [facility] 12-12-2011 zoster vaccine, live Jose Enrique Botetourt II Other [facility] Payers Date Payer Category Payer Self-pay 2022 Unknown [id number] 2018 Medicare [id number] 2006 Medicare [id number] 2006 Unknown [id number] 1959 Medicare [id number] 2.1 [id number] 1959 Unknown [id number] 2.16. [id number] 1941 Unknown [id number] 2.16.84 [id number] 1941 Unknown [id number] 2.16.84 [id number] 1941 Unknown [id number] 2.16.84 [id number] 1941 Unknown [id number] 2.16.84 [id number] 1941 Unknown [id number] 2.16.84 [id number] 1941 Unknown [id number] 2.16. [id number] 1941 Unknown [id number] 2.16. [id number] 1941 Unknown [id number] 2.16. [id number] 1941 Unknown [id number] 2.16. [id number] 1941 Unknown [id number] 2.16. [id number] 1941 Unknown [id number] 2.16. [id number] 1941 Unknown [id number] 2.16. [id number] Unknown [id number] 2.16.8 [id number] Social History Date Type Detail Facility Start: 05-09-2021 End: 03-15-2023 Sex Assigned At [facility] Start: 1940 Sex Assigned At Male F [facility] Start: 06-13-2017 End: 01-22-2024 Tobacco smoking status NHIS Never smoked tobacco [facility] Start: 06-13-2017 Tobacco use and exposure Smokeless tobacco non-user [facility] Start: 05-09-2021 Alcohol intake Current drinke r of alcohol (finding) [facility] Start: 12-11-2017 Alcohol Comment [facility] Start: 1940 Sex Assigned At Not on file C [facility] Start: 05-09-2021 End: 03-15-2023 History of Social function [facility] Adult Depression Screening Assessment 1 [facility] Medical Equipment Procedure Code Equipment Code Equipment Origin al Text Equipment Identifier Dates Hinckley Swivelock Tenodesis 8mm Biocomposite 19.5mm Suture [place] Eyelet - [id number] Start: 06-29-2017 Sleeve V40 +0mm Offset Hardesty Taper Titanium Adapter Hip - [id number] Start: 01-01-2018 Screw Trident Secur-Fit Torx 6.5mm Titanium 20mm Bone Sterile Acetabular - [id number] Start: 01-01-2018 Clinical Notes 08-25-2022 to 01-22-2024 Note Date & Type Note Facility 01-22-2024 Evaluation note Diagnosis Onset Date Chronic bronchitis, simple a cute Chronic kidney disease, stage 3a acute Elevated cholesterol acute Generalized anxiety disorder acute Hypertension acute Lumbar spondylolysis acute Obstructive sleep apnea acut e Medicare annual wellness visit, subsequent noneactive [facility] Work Phone: [phone]) 249-334702-09-2024 Evaluation note* Encounter Date Diagnosis Assessment Notes [...] and clinically improving, no further treatment necessary [employer] Other 02-02-2024 Evaluation note* Encounter Date Diagnosis Assessment Notes Treatment Notes Treatment Clinical Notes Sep, Carotid bruit, unspecified laterality (ICD-10 - R09.89) [employer] Other 01-23-2024 Evaluation note* Encounter Date Diagnosis [...] tid Initiate Prednisone _update office on Sunday [employer] Other 01-15-2024 Evaluation note* Encounter Date Diagnosis Assessment Notes Treatment Notes Treatment Clinical Notes Aug, JONATHAN (generalized anxiety disorder) (ICD-10 - F41.1) [employer] Other 12-13-2023 Evaluation note* Encounter Date Diagnosis [...] best 2/3 readings w/ goal < 135/85 [employer] Other 11-28-2023 Evaluation note* Encounter Date Diagnosis [...] daily for blisters and ulcerations. Moisturizers daily [employer] Other 11-21-2023 Evaluation note* Encounter Date Diagnosis [...] Call if develop increased pain or erythema [employer] Other 11-01-2023 Evaluation note* Encounter Date Diagnosis [...] use, the patient reduces the risk for MN, CVA, HTN, cardiac dysrhythmias and sudden cardiac [...] very active. No change in medical treatment [employer] Other 10-27-2023 Evaluation note* Encounter Date Diagnosis Assessment Notes Treatment Notes Treatment Clinical Notes May, JONATHAN (generalized anxiety disorder) (ICD-10 - F41.1) [employer] Other 10-11-2023 Evaluation note* Encounter Date Diagnosis [...] They may safely use Tylenol as needed. [employer] Other 08-01-2023 Miscellaneous Notes* Telephone Encounter - Neida Porter MA - 03/20/2023 12:26 PM EDT DATE OF SERVICE: 03/15/2023 PATIENT'S PHONE NUMBERS: [phone] (home) OR @[email or web address]@ PROVIDER: Dr. Jaeger PROCEDURE: Elective Pain Management Procedure Left message on machine Asked pt to call back and speak with the specialty triage nurse with update. Please obtain percentage better and the duration of improvement. Please inquire if there were any problems afterwards. Neida Brink documented in [facility] Miscellaneous Notes* Telephone Encounter - Linda Knox LPN - 02/26/2023 4:42 PM EDT Spoke to patient in [place] to pre procedure instructions. Pt must have a lyft driver. Pt advised to arrive 30 min [...] take. Advised on location of ASC-2nd floor Located within [facility] Pt will receive a follow up call several days after by a marine steam fitter helper. If you experience any increase in weakness, difficulty walking or significant increase in pain thatlast more than 4 hours, please proceed to the Emergency Room and tell them you had a spine procedure done recently. Additionally, call us and notify us of these symptoms. Please call [phone] if you have any questions. Pt verbalized understanding. documented in this encounterMet[facility]-2023 Miscellaneous Notes* Telephone Encounter - Linda Knox LPN - 02/19/2023 11:57 AM EDT Order approved Spoke to daughter in [facility] to pre procedure instructions. Daughter given scheduling number [phone] Pt must have a lyft driver. Pt advised to arrive 30 min prior to the time given by the shoe stainer. Pt advised will also receive a call the day before from the surgery center to confirm date/time. Pt can eat and drink as normal. and Pt can take medications as normal. No alcohol 24 hours prior. Pt is on ASA.- 81 mg okay to take. and must Advised on location of ASC-2nd floor Located within [facility] Pt will receive a follow up call several days after by a marine steam fitter helper. If you experience any increase in weakness, difficulty walking or significant increase in pain thatlast more than 4 hours, please proceed to the Emergency Room and tell them you had a spine procedure done recently. Additionally, call us and notify us of these symptoms. Please call [phone] if you have any questions. Pt verbalized [...] call Celi as patient cannot hear well [phone] Patient has been identified by name and birthdate. Duration of symptoms: N/A Person calling: daughter: Celi Call patient at: N/A [phone] (home) [phone] (cell) Was an appointment scheduled: No Closing statement: Results or non-symptom based questions: Thank you for calling [facility], your call will be returned within the next business day. Camilla Jarrell Pss documented in this encounterMet[facility]06-28-2023 Evaluation note* Encounter Date Diagnosis [...] use, the patient reduces the risk for MN, CVA, HTN, cardiac dysrhythmias and sudden cardiac [...] (ICD-10 - F41.1) Healthy diet, keep active [employer] Other 06-22-2023 Evaluation note* Encounter Date Diagnosis Assessment Notes Treatment Notes Treatment Clinical Notes Jan, Elevated cholesterol (ICD-10 - E78.00) Jan, Stage 3a chronic kidney disease (ICD-10 - N18.31) Jan, Primary hypertension (ICD-10 - I10) Jan, Screening PSA (prostate specific antigen) (ICD-10 - Z12.5) Jan, High risk medication use (ICD-10 - Z79.899) [employer] Other 06-15-2023 Evaluation note* Encounter Date Diagnosis [...] this time 6. Follow up as needed [employer] Other 04-24-2023 Evaluation note* Encounter Date Diagnosis [...] use of statin, experiencing ADR and stopped [employer] Other 03-23-2023 Evaluation note* Encounter Date Diagnosis [...] - M17.12) Quad exercises, ice/heat and Tylenol [employer] Other 03-23-2023 Evaluation note* Encounter Date Diagnosis [...] injection well. 6. Follow up as needed [employer] Other 02-23-2023 Evaluation note* Encounter Date Diagnosis [...] use, the patient reduces the risk for MN, CVA, HTN, cardiac dysrhythmias and sudden cardiac [...] tract symptoms (ICD-10 - N40.1) Symptoms tolerable [employer] Other 02-08-2023 Evaluation note* Encounter Date Diagnosis Assessment Notes Treatment Notes Treatment Clinical Notes Sep, Elevated cholesterol (ICD-10 - E78.00) Sep, Stenosis of right carotid artery (ICD-10 - I65.21) Sep, Retinal hemorrhage of right eye (ICD-10 - H35.61) [employer] Other 01-06-2023 Evaluation note* Encounter Date Diagnosis Assessment Notes Treatment Notes Treatment Clinical Notes Aug, Carotid bruit, unspecified laterality (ICD-10 - R09.89) [employer] Other Evaluation noteNo assessment information available [facility] Work Phone: Evaluation noteNo [employer]ort [employer] Other Evaluation note* Diagnosis Spinal stenosis, lumbar region with neurogenic claudication- Primary Lumbar radiculopathy, chronic Thoracic or lumbosacral neuritis or radiculitis, unspecified documented [facility] Diagnosis Pseudoclaudication syndrome- Primary Spinal stenosis, lumbar region, with neurogenic claudication Lumbar radiculopathy Thoracic or lumbosacral neuritis or radiculitis, unspecified Pseudoclaudication syndrome Spinal stenosis, lumbar region, with neurogenic claudication Lumbar radiculopathy Thoracic or lumbosacral neuritis or radiculitis, unspecified documented in this encounter [facility] general Narrative - Reported* Type Description [...] JANELLE 06/2017 Hospitalization History see surgical history [employer] Other Hospital Discharge instructionsAmbulatory Orders* Referral to Pain Management Location: None [facility] Work Phone: Summary Purpose Family History No [...] section and content) DATE CREATED AUTHOR 02/06/2018 [facility] DATE CREATED AUTHOR AUTHOR'S ORGANIZ ATION 06/10/2018 [facility] DATE CREATED AUTHOR AUTHOR'S ORGANIZ ATION 11/06/2022 [facility] DATE CREATED AUTHOR AUTHOR'S ORGANIZ ATION 12/21/2022 [facility] DATE CREATED AUTHOR AUTHOR'S ORGANIZ ATION 03/15/2023 [facility] DATE CREATED AUTHOR AUTHOR'S ORGANIZ ATION 03/22/2023 [facility] DATE CREATED AUTHOR AUTHOR'S ORGANIZ ATION 04/18/2024 [facility] REASON FOR VISIT (unrecogniz ed section and content) Reason Comments Appointment Reason Comments Procedure Reason Comments Follow Up Phone Call Care Teams (unrecognized sec tion and content) Team Status: Inactive Member Role Status Dates Jose Enrique Leblanc II, MD Attending Provider Active Nanosystems Engineer Relationship Specialty Start Date End Date Cecilio Benjamin DO PCP - General Internal Medicine 09/04/13 Nanosystems Engineer Relationship Specialty Start Date End Date Cecilio Benjamin DO PCP - General Internal Medicine 09/04/13 Nanosystems Engineer Relationship Specialty Start Date End Date Cecilio Benjamin DO PCP - General Internal Medicine 09/04/13 Nanosystems Engineer Relationship Specialty Start Date End Date Cecilio [...] or prosecute any alcohol or drug abuse patient.[facility] CenterIn the event this information is protected by the Federal Confidentiality of Alcohol and Drug Abuse Patient Records regulations: The Federal rules restrict any use of the information to criminally investigate or prosecute any alcohol or drug abuse patient.[facility] CenterIn the event this information is protected by the Federal Confidentiality of Alcohol and Drug Abuse Patient Records regulations: The Federal rules restrict any use of the information to criminally investigate or prosecute any alcohol or drug abuse patient.[facility] CenterIn the event this information is protected by the Federal Confidentiality of Alcohol and Drug Abuse Patient Records regulations: The Federal rules restrict any use of the information to criminally investigate or prosecute any alcohol or drug abuse patient.[facility] FOR RECORDS PERTAINING TO PATIENTS [...] BE BASED ON THE PRIMARY CLINICAL RECORDS. [employer] [facility]. provides no warranty or guarantee of the accuracy or completeness of information in this document.
--- NOTE | 2024-05-15 11:16 | PM.CN ---
Consult Note: HPI Data of Consult Patient: known to practice within the last 3 years Consult date: 05/08/24 Requesting Physician: Erica Hope NP Primary Care Provider: Cecilio Benjamin DO Consult Narrative Reason for consult: low back pain Narrative: Ruperto Thorpe a pleasant 83 year old male presents for evaluation and management of chronic low back pain unresponsive to greater than 6 weeks of pt/guided HEP, tylenol/nsaids, heat/ice. Patient rating pain 3/10 stiff nagging increasing to 6/10 with standing, walking, twisting, pushing, pulling, activity. Pain improved with sitting, lying, sleep. Patient currently taking tylenol and nabumetone with mild benefit, dia side effects. Recently underwent bilateral L4/5 L5/S1 RFA with 75% improvement ongoing in axial low back pain. cc:: CC: Erica Hope NP Review of Systems ROS Status of ROS 10 or more systems reviewed and unremarkable except as noted in history and below Musculoskeletal Reports: back pain and joint pain PFSH [facility] Medical History (Updated 05/15/24 @ 11:18 by Erica Hope NP) Low back pain ?M54.50 - Low back pain, unspecified (ICD-10) Heartburn ?R12 - Heartburn (ICD-10) Sleep apnea ?G47.30 - Sleep apnea, unspecified (ICD-10) COPD (chronic obstructive pulmonary disease) ?J44.9 - Chronic obstructive pulmonary disease, unspecified (ICD-10) Asthma ?J45.909 - Unspecified asthma, uncomplicated (ICD-10) Hypertension ?I10 - Essential (primary) hypertension (ICD-10) Surgical History H/O cervical spine surgery ?Z98.890 - Other specified postprocedural states (ICD-10) S/P tonsillectomy and adenoidectomy ?Z90.89 - Acquired absence of other organs (ICD-10) History of ankle surgery ?Z98.890 - Other specified postprocedural states (ICD-10) S/P cholecystectomy ?Z90.49 - Acquired absence of other specified parts of digestive tract (ICD-10) S/P total hip arthroplasty ?Z96.649 - Presence of unspecified artificial hip joint (ICD-10) History of surgery on upper extremity ?Z98.890 - Other specified postprocedural states (ICD-10) Meds Home Medications and Allergies Home Medications ?Medication ?Instructions ?Recorded ?Confirmed ?Type albuterol sulfate 90 mcg/actuation 2 inh inhalation Q8H PRN shortness 01/28/24 04/07/24 History aerosol inhaler (Ventolin HFA) of breath or wheezing amlodipine 2.5 mg tablet 2.5 mg PO DAILY 01/28/24 04/07/24 History clonazepam 0.5 mg tablet 0.5 mg PO DAILY 01/28/24 04/07/24 History escitalopram oxalate 10 mg tablet 10 mg PO DAILY 01/28/24 04/07/24 History (Lexapro) fluticasone propionate 110 1 inh inhalation BID 01/28/24 04/07/24 History mcg/actuation HFA aerosol inhaler nabumetone 500 mg tablet 500 mg PO BID 01/28/24 04/07/24 History omeprazole 20 mg capsule,delayed 20 mg PO DAILY 01/28/24 04/07/24 History release tamsulosin 0.4 mg capsule (Flomax) 0.4 mg PO DAILY 01/28/24 04/07/24 History diazepam 10 mg tablet 10 mg PO TID PRN sedation 04/07/24 04/07/24 History Allergies Allergy/AdvReac Type Severity Reaction Status Date / Time bacitracin AdvReac Mild Rash Verified 04/07/24 07:58 Exam Constitutional Documenting provider has reviewed patient's vital signs: yes Common normals: no apparent distress, oriented x3, healthy appearing, alert and well nourished General appearance: cooperative [facility] Common normals: normocephalic, hearing grossly normal bilaterally and moist oral mucous membranes Head and scalp: normocephalic Eye Common normals: PERRL Pupil: PERRL Neck & C-Spine Common normals: full ROM General: normal visual inspection Chest Common normals: inspection of chest normal Respiratory Common normals: normal respiratory effort, no retractions and no use of accessory muscles Back & Pelvis Lumbar spine/lower back: lumbar ROM normal and straight leg raise negative bilaterally; no pain with ROM, no lumbar spinal tenderness and no paraspinal muscle tenderness Sacroiliac joints: SI joint(s) abnormal Other: left positive natasha(patricks), gaenslens, thigh thrust, compression test Extremity Common normals: normal to inspection and full ROM Neuro Common normals: oriented x3, CN's II-XII intact bilaterally, moves all extremities, no focal motor deficits, no sensory deficits noted and deep tendon reflexes 2+ bilaterally Sensorium/orientation: alert Motor exam: strength 5/5 throughout and no movement abnormalities noted Psych Common normals: mental status grossly normal, thought process normal, cooperative, affect normal, speech normal and activity/motor behavior normal Speech: normal speech Thought process: normal thought process Results Additional Findings Additional findings: If on a controlled substance or opioids, I have checked an [place] report on this patient and there are no aberrancies noted in the prescribing history.??If on a controlled substance or opioid a drug screen was completed and reviewed within the last year, and if there has not been a drug screen completed we ordered one today to monitor higher risk, state monitored pain medication use. As part of providing excellent, safe, comprehensive care, the following was completed at our patient's visit: 1. A medication reconciliation and review to ensure accurate knowledge of current/active medications, including asking our patients to inform us about any [id number]-[id number] medications or herbal remedies/nutritional supplements/alternative remedies. 2. A review to specifically ensure our patients have had annual screening for screening for depression, screening for tobacco use, and screening for unhealthy alcohol use. For concerning screenings had a discussion with the patient, provided patient education, and recommended follow-up with primary care provider when appropriate. If patient noted with a risk of falling, they received education on strength, gait, and balance training to prevent future risk of falling. Assessment and Plan Assessment and Plan (1) Sacroiliitis: (2) Lumbar spondylosis: (3) Lumbar stenosis with neurogenic claudication: Plan bilateral L4-5 L5-S1 facet RFA providing 75% improvement in axial low back pain ongoing proceed with left SIJ injection under fluoroscopy for sacroilitis continue current medications f/u 1-2 weeks after injection
== END 2024-05-08 14:13 | disposition home or self-care (01) ==
LOC: PM 14:12
PROVIDERS: PCP Internal Medicine; Visit Provider Nurse Practitioner
DX: M47.816 Spondylosis without myelopathy or radiculopathy, lumbar region (principal); M48.062 Spinal stenosis, lumbar region with neurogenic claudication; M46.1 Sacroiliitis, not elsewhere classified
CPT/HCPCS: G0463

== ENCOUNTER 2024-05-26 07:55 | Day surgery (SDC) | payer MEDICARE, OTHER, SELFPAY ==
--- OUTSIDE RECORDS SUMMARY | 2024-05-26 08:02 | XMS_ITS | CCD ---
Author Organization [facility] Care Team Providers Care Presales Consultant Name Role Phone BRANDON CECILIO~[phone] UNKNOWN Unavailable Unavailable BETH GOODEN Unavailable Unavailable [...] bacitracin; Translations: [bacitracin] Drug Allergy 09-11-2013 Unknown [facility] Repository (19 sources) Albuterol Drug Allergy Unknown [employer] Other (20 sources) HMG-CoA reductase inhibitor Drug allergy Unknown [employer] Other Medications Current Medications Medication Drug Class(es) [...] uth every 8 hours. (Mild pain reliever) [id number] 200 actuat albuterol 0.09 mg/actuat metered dose [...] on above: Take 4 tablets by mo [facility] 1 hour prior to procedure and 2 [...] Comment on above: Take 1 capsule by [facility] twice daily. (Stool softener) doxycycline hyclate 100 mg oral capsule (15 sources) Tetracycline-class Drug Start: 10-17-2023 End: 10-19-2023 take 100 mg by mouth twice daily Doxycycline Hyclate Discontinued 100 MG PO Twice daily October 17, 2023 1:00am October 19, 2023 11:06am Start: 07-10-2023 take 1 capsule by [facility] every twelve hours Doxycycline Hyclate 100 MG [...] 01-22-2024 Episodic Other aftercare (2 sources) Other fci (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 therapy; Translations: [OTH COMPUTER SUPPORT ANALYST CURRENT DRUG THERAPY] Onset: 11-06-2022 Episodic Other [...] Test Name Value Interpretation Reference Range Facility [facility] 03-20-2023 CNPN Telephone (SPNMAV) RUPERTO THORPE ([id number]) 1940 M [place]* Date Time Provider Department 03/20/23 DAVID JAEGER SPJEREMYAV During your visit today, we recorded the following information about you: Neida Porter MA 03/20/2023 12:30 PM Signed DATE OF SERVICE: 03/15/2023 PATIENT'S PHONE NUMBERS: [phone] (home) OR @[facility]@ PROVIDER: Dr. Jaeger PROCEDURE: Elective Pain [...] work Requesting to call his CELL ONLY [phone] what to do next Leave Detailed messages [...] of spine injection schedulers to call at [phone]. Patient will call if he wants to schedule another injection. 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 Author [...] offered a procedure / surgery at a [facility] facility. Patient and I have discussed [...] surgery/procedure as indicated on the consent form. [facility] approved time out was performed identifying the site, side and level of procedure prior to start of procedure. [facility] - ELECTIVE PROCEDURE Lumbar Transforaminal Epidural Steroid [...] the entire procedure. David Jaeger DO, MBA [facility] 02-26-2023 CNPN Telephone (SPNMAV) RUPERTO THORPE ([id number]) 1940 M [place] Date Time Provider Department 02/26/23 DAVID JAEGER SPJEREMYAV During your visit today, we recorded the following information about you: Linda Knox LPN 02/26/2023 4:49 PM Signed Spoke to [facility] in [facility] to pre procedure instructions. Pt must have a straddle truck driver. Pt advised to arrive 30 [...] take. Advised on location of ASC-2nd floor [facility] Pt will receive a follow up call several days after by a steam power plant operator. If you experience any increase in weakness, difficulty walking or significant increase in pain that last more than 4 hours, please proceed to the Emergency Room and tell them you had a spine procedure done recently. Additionally, call us and notify us of these symptoms. Please call [phone] if you have any questions. Pt verbalized [...] Status:Closed by LINDA KNOX LPN on 02/26/23 [facility] Unique 02-19-2023 CNPN Telephone (SPNMAV) RUPERTO THORPE ([id number]) 1940 Jill Marie* Date Time Provider Department 02/19/23 DAVID JAEGER SPNMAV During your visit today, we recorded the following information about you: Camilla Jarrell [facility] 02/19/2023 9:27 AM Signed Ruperto Thorpe daughter [...] call Celi as patient cannot hear well [phone] Patient has been identified by name and birthdate. Duration of symptoms: N/A Person calling: daughter: Celi Call patient at: N/A [phone] (home) [phone] (cell) Was an appointment scheduled: No Closing statement: Results or non-symptom based questions: Thank you for calling [facility], your call will be returned within the next business day. Camilla Knox LPN 02/19/2023 9:45 AM Signed Spine Intervention order formatted for review Linda Knox LPN 02/19/2023 11:59 AM Signed Order approved Spoke to daughter in [place]ards to pre procedure instructions. Daughter given scheduling number [phone] Pt must have a straddle truck driver. Pt advised to arrive 30 min prior to the time given by the candy rolling machine operator. Pt advised will also receive a call [...] call several days after by a steam power plant operator. If you experience any increase in weakness, difficulty walking or significant increase in pain that last more than 4 hours, please proceed to the Emergency Room and tell them you had a spine procedure done recently. Additionally, call us and notify us of these symptoms. Please call [phone] if you have any questions. Pt verbalized understanding. 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 Normal [facility] XR knee LT 4V*on 11-09-2022 XR knee LT 4V* [facility] Main [address] [address] XRay Report Signed Patient: Ruperto Thorpe MR#: [id number] 5 : 1940 Acct:[id number] Age/Sex: 82 / M ADM Date: 11/09/22 Loc: SOXD Room: Type: [facility] Attending Dr: Jose Enrique Leblanc [...] Darren Yuen M.D.11/09/2022 5:03 PM Dictation Location: [place] [address] Transcribed By: [facility] 11/09/22 170 Dictated By: Darren Yuen II, MD 11/09/221700 Signed By: 11/09/22 170 Normal [facility] XR knee LT 4V* [facility] [employer] Other XR knee LT 4V* [facility] [employer] Other XR knee LT 4V* [address] [facility] [employer] Other XR knee LT 4V* [place] [address] [facility] [employer] Other XR knee LT 4V* XRay Report [employer] Other XR knee LT 4V* Signed [employer] Other XR knee LT 4V* Patient: Ruperto Thorpe MR#: [id number] [employer] Other XR knee LT 4V* 5 [employer] Other XR knee LT 4V* : 1940 Acct:[id number] [employer] Other XR knee LT 4V* Age/Sex: 82 / M ADM Date: 11/09/22 [employer] Other XR knee LT 4V* Loc: SOXD Room: Type : [facility] [employer] Other XR knee LT 4V* Attending Dr: Jose Enrique Leblanc II, MD [employer] Other XR knee LT 4V* Copies to: Jose Enrique Leblanc MD [employer] Other XR knee LT 4V* Ordering Provider: Jose Enrique Leblanc MD [employer] Other XR knee LT 4V* Date of Service: 11/09/22 [employer] Other XR knee LT 4V* XR/XR knee LT 4V*: Acute pain of left knee [employer] Other XR knee LT 4V* XR knee LT 4V* 11/09/2022 3:15 PM [employer] Other XR knee LT 4V* SIGNS AND SYMPTOMS: Acute pain of left knee [employer] Other XR knee LT 4V* PROTOCOL: Frontal, lateral, oblique, and sunrise views of the left knee [employer] Other XR knee LT 4V* COMPARISON: 11/05/2022 [employer] Other XR knee LT 4V* FINDINGS: [employer] Other XR knee LT 4V* There is similar narrowing of the weightbearing joint spaces with chondrocalcinosis of the menisci [employer] Other XR knee LT 4V* suggesting underlyin g CPPD. There is narrowing of the patellofemoral joint space with spurring at [employer] Other XR knee LT 4V* the superior pole of patella. There is a small joint effusion. No soft tissue swelling. No acute [employer] Other XR knee LT 4V* displaced fracture. Vascular calcifications are present posteriorly. [employer] Other XR knee LT 4V* XR/XR knee LT 4V* [employer] Other XR knee LT 4V* IMPRESSION: [employer] Other XR knee LT 4V* Tricompartmental degenerative changes are noted in the left knee with a small joint effusion. [employer] Other XR knee LT 4V* There is chondrocalcinosis of the menisci suggesting underlying CPPD. [employer] Other XR knee LT 4V* Impression dictated by: Darren Yuen M.D.11/09/2022 5:03 PM [employer] Other XR knee LT 4V* Dictation Location: [place] [address] [employer] Other XR knee LT 4V* Transcribed By: COLIN 11/09/22 170 [employer] Other XR knee LT 4V* Dictated By: Darren Yuen II, MD 11/09/221700 [employer] Other XR knee LT 4V* Signed By: [employer] Other XR knee LT 4V* 11/09/221702 [employer] Other XR pelvis 1-2Von 11-09-2022 XR pelvis 1-2V [facility] Main [place] [address] [place] [address] XRay Report Signed Patient: Ruperto Thorpe MR#: [id number] 5 : 1940 Acct:[id number] Age/Sex: 82 / M ADM Date: 11/09/22 [place]: [facility] Room: Type: [facility] Attending Dr: Jose Enrique Leblanc [...] Darren Yuen M.D.11/09/2022 5:01 PM Dictation Location: [place] [address] Transcribed By: [facility] 11/09/221700 Dictated By: Darren Yuen II, MD 11/09/221699 Signed By: 11/09/221700 [facility] XR pelvis 1-2V XR/XR pelvis 1-2V: Acute pain of left knee [employer] Other XR pelvis 1-2V XR pelvis 1-2V 11/09/2022 3:15 PM [employer] Other XR pelvis 1-2V SIGNS AND SYMPTOMS: Left knee pain [employer] Other XR pelvis 1-2V PROTOCOL: Frontal radiograph of the chest [employer] Other XR pelvis 1-2V COMPARISON: None [employer] Other XR pelvis 1-2V There is mild narrowing of the left hip joint space with subcortical cystic change on both sides of [employer] Other XR pelvis 1-2V the joint along the acetabular there is chondrocalcinosis of the labrum overlying the superior [employer] Other XR pelvis 1-2V acetabular rim and superior lateral femoral head. The bony ring of the pelvis is intact. There is [employer] Other XR pelvis 1-2V total right hip arthroplasty. Degenerative changes are noted in the sacroiliac joints. No fracture [employer] Other XR pelvis 1-2V is [employer] Other XR pelvis 1-2V XR/XR pelvis 1-2V [employer] Other XR pelvis 1-2V Degenerative changes are noted in the left hip with findings suspicious for previous labral [employer] Other XR pelvis 1-2V pathology. [employer] Other XR pelvis 1-2V Postoperative change s are noted in the right hip with total right hip arthroplasty hardware. [employer] Other XR pelvis 1-2V Impression dictated by: Darren Yuen M.D.11/09/2022 5:01 PM [employer] Other XR pelvis 1-2V Transcribed By: COLIN 11/09/22 170 [employer] Other XR pelvis 1-2V Dictated By: Darren Yuen II, MD 11/09/221699 [employer] Other XR pelvis 1-2V 11/09/22 170 [employer] Other XR KNEE LT 4V or >on [...] There is chondrocalcinosis. Soft tissues: Unremarkable. IMPRESSION: Mhau-ui-jtvyortx osteoarthritis as described above. Chondrocalcinosis. No acute fracture or dislocation. Electronically authenticated by: CHUCK JONES Date: 2022-11-05 11:19 Normal [facility] US CAROTID ART BILon 023 US [...] MCLEOD Date: 2022-09-26 10:58 Normal [facility] CBC AUTO DIFFon 08-10-2022 BASO # 0.0 103/ul Normal 0.0-0.1 [facility] Comment on above: Performed By: #### C BC #### [facility] [address] [place] [address] [address] Alexis Brink Basophils/100 WBC (Bld) 0.7 % Normal 0.2-2.0 [facility] Comment on above: Performed By: #### C BC #### [facility] [address] [place] [address] [address] Alexis Brink EO # 0.3 103/ul Normal 0.0-0.7 [facility] Comment on above: Performed By: #### C BC #### [facility] [address] [place] [address] Dr. Alexis Brink Eosinophils/100 WBC (Bld) 6.1 % Normal 0.9-7.0 [facility] Comment on above: Performed By: #### C BC #### [facility] [address] [place] [address] Dr. Alexis Brink Erythrocyte distribution width (RBC) [Ratio] 12.1 % Normal 11.0-15.0 [facility] Comment on above: Performed By: #### C BC #### [facility] [address] [place] [address] Dr. Alexis Brink Hematocrit (Bld) [Volume fraction] 44.2 % Normal 42.0-54.0 [facility] Comment on above: Performed By: #### C BC #### [facility] [address] [place] [address] Dr. Alexis Brink Hemoglobin (Bld) [Mass/Vol] 14.9 g/dL Normal 14.0-18.0 [facility] Comment on above: Performed By: #### C BC #### [facility] [address] [place] [address] Dr. Alexis Brink IG # 0.01 10e3/ul Normal 0.00-0.03 [facility] Comment on above: Performed By: #### C BC #### [facility] [address] [place] [address] Dr. Alexis Brink IG % 0.2 % Normal 0.0-0.5 [facility] Comment on above: Performed By: #### C BC #### [facility] [address] [place] [address] Dr. Alexis Brink LYMPH # 1.2 103/ul Normal 1.2-3.8 [facility] Comment on above: Performed By: #### C BC #### [facility] [address] [place] [address] Dr. Alexis Brink Lymphocytes/100 WBC (Bld) 21.3 % Normal 20.5-60.0 [facility] Comment on above: Performed By: #### C BC #### [facility] [address] [place] [address] Dr. Alexis Brink MANUAL DIFF REQ NO Normal [facility] Comment on above: Performed By: #### C BC #### [facility] [address] [place] [address] Dr. Alexis Brink MCH (RBC) [Entitic mass] 30.7 pg Normal 25.9-34.0 [facility] Comment on above: Performed By: #### C BC #### [facility] [address] [place] [address] Dr. Alexis Brink MCHC (RBC) [Mass/Vol] 33.7 g/dL Normal 29.9-35.2 [facility] Comment on above: Performed By: #### C BC #### [facility] [address] [place] [address] Dr. Alexis Brink MCV (RBC) [Entitic vol] 91.1 fL Normal 80.0-94.0 [facility] Comment on above: Performed By: #### C BC #### [facility] [address] [place] [address] Dr. Alexis Brink MONO # 0.5 103/ul Normal 0.3-0.8 [facility] Comment on above: Performed By: #### C BC #### [facility] [address] [place] [address] Dr. Alexis Brink Monocytes/100 WBC (Bld) 8.5 % Normal 1.7-12.0 [facility] Comment on above: Performed By: #### C BC #### [facility] [address] [place] [address] Dr. lAexis Brink NEUT # 3.5 103/ul Normal 1.4-6.5 [facility] Comment on above: Performed By: #### C BC #### [facility] [address] [place] [address] Dr. Alexis Brink Neutrophils/100 WBC (Bld) 63.2 % Normal 43.0-75.0 [facility] Comment on above: Performed By: #### C BC #### [facility] [address] [place] [address] [address] Alexis Brink Platelet mean volume (Bld) [Entitic vol] 10.0 fL Normal 9.5-13.5 [facility] Comment on above: Performed By: #### C BC #### [facility] [address] [place] [address] [address] Alexis Brink PLT 120 103/ul Critically low 150-450 [facility] Comment on above: Performed By: #### C BC #### [facility] [address] [place] [address] [address] Alexis Brink RBC 4.85 106/ul Normal 4.70-6.10 [facility] Comment on above: Performed By: #### C BC #### [facility] [address] [place] [address] [address] Alexis Brink WBC 5.6 103/ul Normal 4.0-11.0 [facility] Comment on above: Performed By: #### C BC #### [facility] [address] [place] [address] [address] Alexis Brink [facility] SARS-CoV-2 (COVID-19) RNA RICKY+probe Ql (Unsp spec) Not detected Normal NOT DETECTED [facility] Comment on above: Result Comment: This test is not yet approved or cleared by the [place] FDA. When there are no FDA-approved or cleared tests available, and other criteria are met, FDA can make tests available under an emergency access mechanism called an Emergency Use Authorization (EUA). The EUA for this test is supported by the [place] of Health and Human Service's (HHS's) declaration [...] SARS-CoV-2. Performed By: #### C VDTBH ####[facility] [address] [place], [place] [address]DrLainey Brink INFLUENZA A AND B AGon 08-10 INFLUANEGH SEE BELOW Normal [facility] Comment on above: Result Comment: Nega tive for Flu A protein angiten. Infection due to Flu A cannot be ruled out. Flu A angiten in the sample may be below the detection limit of the test. Performed By: #### I NFLUAB ####[facility] [address] [place], [place] [address]Dr. Alexis Brink INFLUBNEGH SEE BELOW Normal [facility] Comment on above: Result Comment: Nega tive for Flu B protein antigen. Infection due to Flu B cannot be ruled out. Flu B antigen in the sample may be below the detection limit of the test. Performed By: #### I NFLUAB ####[facility] [address] [place], [place] [address]Dr. Alexis Brink INFLUENZA A AG Negative Normal NEGATIVE SEE COMMENT [facility] Comment on above: Performed By: #### I NFLUAB ####[facility] [address] [place], [place] [address]Dr. Alexis Brink INFLUENZA B AG Negative Normal NEGATIVE SEE COMMENT [facility] Comment on above: Performed By: #### I NFLUAB ####[facility] [address] [place], [place] [address]DrLainey Brink INTERNAL CONTROLS Within Normal Limits Normal Wi thin Normal Limits [facility] Comment on above: Performed By: #### I NFLUAB ####[facility] [address] [place], [place] [address]DrLainey Brink PROF CHEM 8 (BAS METB)on Anion gap [Moles/Vol] 11.4 mmol/L Normal [facility] Comment on above: Performed By: #### B MP, HSTROPN #### [facility] [address] [place] [address] [address] Alexis Brink Calcium [Mass/Vol] 8.9 mg/dL Normal 8.5-10.[address] [facility] Comment on above: Performed By: #### B NARA, HSTROPN #### [facility] [address] [place] [address] Dr. Alexis Brink Chloride [Moles/Vol] 102 mmol/L Normal 98-107 [facility] Comment on above: Performed By: #### B NARA, HSTROPN #### [facility] [address] [place] [address] Dr. Alexis Brink CO2 [Moles/Vol] 28.8 mmol/L Normal 21.0-32.0 [facility] Comment on above: Performed By: #### B NARA, HSTROPN #### [facility] [address] [place] [address] Dr. Alexis rBink Creatinine [Mass/Vol] 1.35 mg/dL Critically high 0.70-1.30 [facility] Comment on above: Performed By: #### Sanjiv BAINS, HSTROPN #### [facility] [address] [place] [address] Dr. Alexis Brink EGFR-AF EGYPTIAN >60 Normal >=60 [facility] Comment on above: Performed By: #### B NARA, HSTROPN #### [facility] [address] [place] [address] Dr. Alexis Brink EGFR-NON AF EGYPTIAN 51 mL/min/1.73m2 Critically low >=60 [facility] Comment on above: Performed By: #### B NARA, HSTROPN #### [facility] [address] [place] [address] Dr. Alexis Brink Glucose [Mass/Vol] 109 mg/dL Critically high 74-106 [facility] Comment on above: Performed By: #### B NARA, HSTROPN #### [facility] [address] [place] [address] Dr. Alexis Brink Potassium [Moles/Vol] 4.2 mmol/L Normal 3.5-5.1 [facility] Comment on above: Performed By: #### B NARA, HSTROPN #### [facility] [address] [place] [address] [address] Alexis Brink Sodium [Moles/Vol] 138 mmol/L Normal 136-[address] [facility] Comment on above: Performed By: #### B NARA, HSTROPN #### [facility] [address] [place] [address] [address] Alexis Brink Urea nitrogen [Mass/Vol] 18.0 mg/dL Normal 7.0-18.0 [facility] Comment on above: Performed By: #### B NARA, HSTROPN #### [facility] [address] [place] [address] [address] Alexis Brink Urea nitrogen/Creatinin e [Mass ratio] 13.3 mg/mg Normal [facility] Comment on above: Performed By: #### B NARA, HSTROPN #### [facility] [address] [place] [address] Dr. Alexis Brink TROPONIN, HIGH SENSITIVITYon 08-10-2022 HSTROP 22.2 pg/mL Normal 4.0-76.1 [facility] Comment on above: Result Comment: CUT- OFF POINTS HAVE BEEN ESTABLISHED BASED ON THE FOURTH UNIVERSAL DEFINITIONS OF MYOCARDIAL INFARCTION. THE UPPER REFERENCE LIMIT (URL) OF TROPONIN, DEFINED THE 99TH PERCENTILE OF cTnI DISTRIBUTION IN A REFERENCE POPULATION, HAS BEEN CONFIRMED THE DECISION THRESHOLD FOR DE DIAGNOSIS. Performed By: #### B NARA, HSTROPN #### [facility] [address] [place] [address] Dr. Alexis Brink XR CHEST 1 Von [...] RADHA UNDERWOOD Date: 2022-08-10 16:07 Normal [facility] CBC AUTO DIFFon 02-09-2022 BASO # 0.0 103/ul Normal 0.0-0.1 [facility] Comment on above: Performed By: #### C BC #### [facility] [address] [place] [address] Dr. Alexis Brink Basophils/100 WBC (Bld) 0.6 % Normal 0.2-2.0 [facility] Comment on above: Performed By: #### C BC #### [facility] [address] [place] [address] Dr. Alexis Brink EO # 0.5 103/ul Normal 0.0-0.7 [facility] Comment on above: Performed By: #### C BC #### [facility] [address] [place] [address] Dr. Alexis Brink Eosinophils/100 WBC (Bld) 7.2 % Critically high 0.9-7.0 [facility] Comment on above: Performed By: #### C BC #### [facility] [address] [place] [address] Dr. Alexis Brink Erythrocyte distribution width (RBC) [Ratio] 12.4 % Normal 11.0-15.0 [facility] Comment on above: Performed By: #### C BC #### [facility] [address] [place] [address] Dr. Alexis Brink Hematocrit (Bld) [Volume fraction] 45.5 % Normal 42.0-54.0 [facility] Comment on above: Performed By: #### C BC #### [facility] [address] [place] [address] Dr. Alexis Brink Hemoglobin (Bld) [Mass/Vol] 15.4 g/dL Normal 14.0-18.0 [facility] Comment on above: Performed By: #### C BC #### [facility] [address] [place] [address] Dr. Alexis Brink IG # 0.02 10e3/ul Normal 0.00-0.03 [facility] Comment on above: Performed By: #### C BC #### [facility] [address] [place] [address] Dr. Alexis Brink IG % 0.3 % Normal 0.0-0.5 [facility] Comment on above: Performed By: #### C BC #### [facility] [address] [place] [address] Dr. Alexis Brink LYMPH # 1.3 103/ul Normal 1.2-3.8 [facility] Comment on above: Performed By: #### C BC #### [facility] [address] [place] [address] Dr. Alexis Brink Lymphocytes/100 WBC (Bld) 17.8 % Critically low 20.5-60.0 [facility] Comment on above: Performed By: #### C BC #### [facility] [address] [place] [address] Dr. Alexis Brink MANUAL DIFF REQ NO Normal [facility] Comment on above: Performed By: #### C BC #### [facility] [address] [place] [address] Dr. Alexis Brink MCH (RBC) [Entitic mass] 31.4 pg Normal 25.9-34.0 [facility] Comment on above: Performed By: #### C BC #### [facility] [address] [place] [address] Dr. Alexis Brink MCHC (RBC) [Mass/Vol] 33.8 g/dL Normal 29.9-35.2 [facility] Comment on above: Performed By: #### C BC #### [facility] [address] [place] [address] Dr. Alexis Brink MCV (RBC) [Entitic vol] 92.9 fL Normal 80.0-94.0 [facility] Comment on above: Performed By: #### C BC #### [facility] [address] [place] [address] Dr. Alexis Brink MONO # 0.7 103/ul Normal 0.3-0.8 [facility] Comment on above: Performed By: #### C BC #### [facility] [address] [place] [address] Dr. Alexis Brink Monocytes/100 WBC (Bld) 9.6 % Normal 1.7-12.0 [facility] Comment on above: Performed By: #### C BC #### [facility] [address] [address] [address] Alexis Brink NEUT # 4.6 103/ul Normal 1.4-6.5 [facility] Comment on above: Performed By: #### C BC #### [facility] [address] [address] [address] Alexis Brink Neutrophils/100 WBC (Bld) 64.5 % Normal 43.0-75.0 [facility] Comment on above: Performed By: #### C BC #### [facility] [address] [place] [address] Dr. Alexis Brink Platelet mean volume (Bld) [Entitic vol] 10.7 fL Normal 9.5-13.5 [facility] Comment on above: Performed By: #### C BC #### [facility] [address] [address] [address] Alexis Brink PLT 130 103/ul Critically low 150-450 [facility] Comment on above: Performed By: #### C BC #### [facility] [address] [place] [address] Dr. Alexis Brink RBC 4.90 106/ul Normal 4.70-6.10 [facility] Comment on above: Performed By: #### C BC #### [facility] [address] [place] [address] Dr. Alexis Brink WBC 7.1 103/ul Normal 4.0-11.0 [facility] Comment on above: Performed By: #### C BC #### [facility] [address] [address] [address] Alexis Brink DIRECT LDLon 02-09-2022 Cholesterol in LDL [Mass/Vol] 144 mg/dL Normal [facility] Comment on above: Performed By: #### D LDL, BMP ####[facility] [id number] [address]Dr. Alexis Brink DLDL NORMAL SEE BELOW Normal [facility] Comment on above: Result Comment: <100 mg/dl OPTIMAL 100 - 129 mg/dl NEAR OR ABOVE OPTIMAL 130 - 159 mg/dl BORDERLINE HIGH 160 - 189 mg/dl HIGH >190 mg/dl VERY HIGH Performed By: #### D LDL, BMP ####[facility] [address] [place], [place] [address]LkDr. Alexis Brink PROF CHEM 8 (BAS METB)on Anion gap [Moles/Vol] 9.3 mmol/L Normal [facility] Comment on above: Performed By: #### D LDL, BMP #### [facility] [address] [address] [address] Alexis Brink Calcium [Mass/Vol] 8.7 mg/dL Normal 8.5-10.[address] [facility] Comment on above: Performed By: #### D LDL, BMP #### [facility] [address] [address] [address] Alexis Brink Chloride [Moles/Vol] 103 mmol/L Normal 98-107 [facility] Comment on above: Performed By: #### D LDL, BMP #### [facility] [address] [address] [address] Alexis Brink CO2 [Moles/Vol] 32.1 mmol/L Critically high 21.0-32.0 [facility] Comment on above: Performed By: #### D LDL, BMP #### [facility] [address] [address] [address] Alexis Brink Creatinine [Mass/Vol] 1.35 mg/dL Critically high 0.70-1.30 [facility] Comment on above: Performed By: #### D LDL, BMP #### [facility] [address] [address] [address] Alexis Brink EGFR-AF EGYPTIAN >60 Normal >=60 [facility] Comment on above: Performed By: #### D LDL, BMP #### [facility] [address] [address] [address] Alexis Brink EGFR-NON AF EGYPTIAN 51 mL/min/1.73m2 Critically low >=60 [facility] Comment on above: Performed By: #### D LDL, BMP #### [facility] [address] [address] [address] Alexis Brink Glucose [Mass/Vol] 90 mg/dL Normal 74-[address] [facility] Comment on above: Performed By: #### D LDL, BMP #### [facility] [address] [address] [address] Alexis Brink Potassium [Moles/Vol] 4.4 mmol/L Normal 3.5-5.1 [facility] Comment on above: Performed By: #### D LDL, BMP #### [facility] [address] [address] [address] Alexis Brink Sodium [Moles/Vol] 140 mmol/L Normal 136-[address] [facility] Comment on above: Performed By: #### D LDL, BMP #### [facility] [address] [address] [address] Alexis Brink Urea nitrogen [Mass/Vol] 16.0 mg/dL Normal 7.0-18.0 [facility] Comment on above: Performed By: #### D LDL, BMP #### [facility] [address] [address] [address] Alexis Brink Urea nitrogen/Creatinin e [Mass ratio] 11.9 mg/mg Normal [facility] Comment on above: Performed By: #### D LDL, BMP #### [facility] [address] [address] [address] Alexis Brink UA RANDOMon 02-09-2022 Bilirubin Ql (U) Negative Normal NEGATIVE [facility] Comment on above: Performed By: #### U A #### [facility] [address] [address] [address] Alexis Brink Clarity (U) CLEAR Normal CLEAR [facility] Comment on above: Performed By: #### U A #### [facility] [address] [place] [address] Dr. Alexis Brink Color (U) YELLOW Normal YELLOW [facility] Comment on above: Performed By: #### U A #### [facility] [address] [address] [address] Alexis Brink Glucose Ql (U) Negative Normal NEGATIVE [facility] Comment on above: Performed By: #### U A #### [facility] [address] [place] [address] Dr. Alexis Brink Hemoglobin Ql (U) Negative Normal NEGATIVE [facility] Comment on above: Performed By: #### U A #### [facility] [address] [place] [address] Dr. Alexis Brink Ketones Ql (U) Negative Normal NEGATIVE [facility] Comment on above: Performed By: #### U A #### [facility] [address] [place] [address] Dr. Alexis Brink LEUKOCYTES Negative Normal NEGATIVE [facility] Comment on above: Performed By: #### U A #### [facility] [address] [place] [address] Dr. Alexis Brink Nitrite Ql (U) Negative Normal NEGATIVE [facility] Comment on above: Performed By: #### U A #### [facility] [address] [place] [address] Dr. Alexis Brink pH (U) 7.0 [pH] Normal 5-9 [facility] Comment on above: Performed By: #### U A #### [facility] [address] [place] [address] Dr. Alexis Brink SPEC GRAVITY 1.015 Normal 1.005-<=1.025 [facility] Comment on above: Performed By: #### U A #### [facility] [address] [place] [address] Dr. Alexis Brink UA PROTEIN Negative Normal NEGATIVE/ TRACE [facility] Comment on above: Performed By: #### U A #### [facility] [address] [place] [address] Dr. Alexis Brink Urobilinogen Qn (U) 1.0 {Kay'U}/dL Normal 0.2 - 1.0 [facility] Comment on above: Performed By: #### U A #### [facility] [address] [place] [address] Dr. Alexis Brink XR CHEST 2 Von [...] by: LYDIA HAWLEY Date: 2021-12-06 15:42 Normal [facility] Nonvisit Note - PTon 018 Nonvisit Note - PT Cert letter refaxed for signature this date - third and final attempt. Normal [facility] Nonvisit Note - PTon 018 Nonvisit Note - PT Cert letter refaxed to Dr Gooden's office. Second attempt. Normal [facility] Coding Summary.on 01-25-2018 Coding Summary. CODING DATE: 01/25/2018 FINAL [facility] STATUS: PAYOR: Medicare ADMIT DX: REASON FOR [...] [place] Date Saved: 01/25/2018 10:54 am Normal [facility] Coding Summary. CODING DATE: 01/25/2018 FINAL [facility] STATUS: PAYOR: Medicare ADMIT DX: REASON FOR [...] Dominique P[place] Date Saved: 01/25/2018 10:54 am [facility] SURGICAL PATHOLOGYon -15-2 018 SURGICAL PATHOLOGY [facility]: [id number] Physician: BETH GOODEN MD FINAL DIAGNOSISRight hip, [...] to 8.5 x 8.5 x 1.8 cm. Land [employer] Information Clerk sectionsare submitted as follows: A1 soft tissue, A2 bone submitted afterdecalcification.B Юлия/lachelle 01/01/2018 Gross examination performed at [facility], [address] [place] [address] [facility] [address] of Report: 01/07/2018Date of Procedure: 01/01/2018Date of Receipt: 01/01/2018Submitted by: BETH GOODEN MDLocation: [id number] interpretation performed at [facility], [facility] [address]. Normal [facility] Comment on above: Performed By: #### S ####See report for performing lab information. Vital Signs Date Time Vital Sign Value Performing Clinician Facility 01-22-2024 09:16-0400 Body height 167.64 cm [facility] 01-22-2024 09:16-0400 Body mass index (BMI) [Ratio] 29.3 kg/m2 [facility] 01-22-2024 09:16-0400 Body weight 82.55 kg [facility] 01-22-2024 09:16-0400 Diastolic blood pressure 72 mm[Hg] [facility] 01-22-2024 09:16-0400 Heart rate 64 /min [facility] 01-22-2024 09:16-0400 Respiratory rate 20 /min [facility] 01-22-2024 09:16-0400 Systolic blood pressure 131 mm[Hg] [facility] 09-28-2023 11:00-0500 Body height 167.64 cm Cecilio Ball Other [facility] Other 09-28-2023 11:00-0500 Body mass index (BMI) [Ratio] 30.24 kg/m2 Cecilio Ball Other [facility] [employer] Other 09-28-2023 11:00-0500 Body weight 85 kg Cecilio Ball Other [facility] Other 09-28-2023 11:00-0500 Respiratory rate 20 /min Cecilio Ball Other [facility] [employer] Other 09-28-2023 11:00-0500 SaO2% (BldA) [Mass fraction] 97 % Cecilio Ball Other [employer] [facility] [employer] Other 09-11-2023 10:45-0500 Body height 167.64 cm Cecilio Ball Other [employer] Other 09-11-2023 10:45-0500 Body mass index (BMI) [Ratio] 29.86 kg/m2 Cecilio Ball Other [employer] Other 09-11-2023 10:45-0500 Body temperature 97.5 [degF] Cecilio Ball Other [employer] Other 09-11-2023 10:45-0500 Body weight 83.92 kg Cecilio Ball Other [employer] Other 09-11-2023 10:45-0500 Diastolic blood pressure 81 mm[Hg] Cecilio Ball Other [employer] Other 09-11-2023 10:45-0500 Respiratory rate 20 /min Cecilio Ball Other [employer] Other 09-11-2023 10:45-0500 SaO2% (BldA) [Mass fraction] 98 % Cecilio Ball Other [employer] Other 09-11-2023 10:45-0500 Systolic blood pressure 161 mm[Hg] Cecilio Ball Other [employer] Other 08-01-2023 10:15-0500 Body height 167.64 cm Cecilio Ball Other [employer] Other 08-01-2023 10:15-0500 Body mass index (BMI) [Ratio] 29.86 kg/m2 Cecilio Ball Other [employer] Other 08-01-2023 10:15-0500 Body weight 83.92 kg Cecilio Ball Other [employer] Other 08-01-2023 10:15-0500 Diastolic blood pressure 79 mm[Hg] Cecilio Ball Other [employer] Other 08-01-2023 10:15-0500 Respiratory rate 20 /min Cecilio Ball Other [employer] Other 08-01-2023 10:15-0500 Systolic blood pressure 172 mm[Hg] Cecilio Ball Other [employer] Other 07-17-2023 10:15-0500 Body height 167.64 cm Cecilio Ball Other [employer] Other 07-17-2023 10:15-0500 Body mass index (BMI) [Ratio] 29.89 kg/m2 Cecilio Ball Other [employer] Other 07-17-2023 10:15-0500 Body weight 84.01 kg Cecilio Ball Other [employer] Other 07-17-2023 10:15-0500 Diastolic blood pressure 78 mm[Hg] Cecilio Ball Other [employer] Other 07-17-2023 10:15-0500 Respiratory rate 20 /min Cecilio Ball Other [employer] Other 07-17-2023 10:15-0500 Systolic blood pressure 172 mm[Hg] Cecilio Ball Other [employer] Other 07-10-2023 14:45-0500 Body height 167.64 cm Cecilio Ball Other [employer] Other 07-10-2023 14:45-0500 Body mass index (BMI) [Ratio] 29.47 kg/m2 Cecilio Ball Other [employer] Other 07-10-2023 14:45-0500 Body weight 82.83 kg Cecilio Ball Other [employer] Other 07-10-2023 14:45-0500 Diastolic blood pressure 80 mm[Hg] Cecilio Ball Other [employer] Other 07-10-2023 14:45-0500 Respiratory rate 20 /min Cecilio Ball Other [employer] Other 07-10-2023 14:45-0500 Systolic blood pressure 150 mm[Hg] Cecilio Ball Other [employer] Other 06-20-2023 08:30-0400 Body height 167.64 cm Cecilio Ball Other [employer] Other 06-20-2023 08:30-0400 Body mass index (BMI) [Ratio] 29.6 kg/m2 Cecilio Ball Other [employer] Other 06-20-2023 08:30-0400 Body weight 83.19 kg Cecilio Ball Other [employer] Other 06-20-2023 08:30-0400 Diastolic blood pressure 76 mm[Hg] Cecilio Ball Other [employer] Other 06-20-2023 08:30-0400 Respiratory rate 20 /min Cecilio Ball Other [employer] Other 06-20-2023 08:30-0400 Systolic blood pressure 157 mm[Hg] Cecilio Ball Other [employer] Other 05-30-2023 13:45-0400 Body height 167.64 cm Cecilio Ball Other [employer] Other 05-30-2023 13:45-0400 Body mass index (BMI) [Ratio] 28.95 kg/m2 Cecilio Ball Other [employer] Other 05-30-2023 13:45-0400 Body weight 81.38 kg Cecilio Ball Other [employer] Other 05-30-2023 13:45-0400 Diastolic blood pressure 78 mm[Hg] Cecilio Ball Other [employer] Other 05-30-2023 13:45-0400 Respiratory rate 16 /min Cecilio Ball Other [employer] Other 05-30-2023 13:45-0400 Systolic blood pressure 158 mm[Hg] Cecilio Ball Other [employer] Other 02-14-2023 08:30-0400 Body height 167.64 cm Cecilio Ball Other [employer] Other 02-14-2023 08:30-0400 Body mass index (BMI) [Ratio] 28.57 kg/m2 Cecilio Ball Other [employer] Other 02-14-2023 08:30-0400 Body weight 80.29 kg Cecilio Ball Other [employer] Other 02-14-2023 08:30-0400 Diastolic blood pressure 80 mm[Hg] Cecilio Ball Other [employer] Other 02-14-2023 08:30-0400 Respiratory rate 16 /min Cecilio Ball Other [employer] Other 02-14-2023 08:30-0400 Systolic blood pressure 135 mm[Hg] Cecilio Ball Other [employer] Other 02-01-2023 08:15-0400 Body height 167.64 cm Jose Enrique Benji II Other [employer] Other 02-01-2023 08:15-0400 Body mass index (BMI) [Ratio] 27.44 kg/m2 Jose Enrique Cleveland II Other [employer] Other 02-01-2023 08:15-0400 Body weight 77.11 kg Jose Enrique Benji II Other [employer] Other 12-11-2022 10:30-0400 Body height 167.64 cm Cecilio Ball Other [employer] Other 12-11-2022 10:30-0400 Body mass index (BMI) [Ratio] 28.66 kg/m2 Cecilio Ball Other [employer] Other 12-11-2022 10:30-0400 Body weight 80.56 kg Cecilio Ball Other [employer] Other 12-11-2022 10:30-0400 Diastolic blood pressure 76 mm[Hg] Cecilio Ball Other [employer] Other 12-11-2022 10:30-0400 Respiratory rate 12 /min Cecilio Ball Other [employer] Other 12-11-2022 10:30-0400 Systolic blood pressure 151 mm[Hg] Cecilio Ball Other [employer] Other 11-09-2022 16:00-0400 Body mass index (BMI) [Ratio] 29.21 kg/m2 Jose Enrique Cleveland II Other [employer] Other 11-09-2022 16:00-0400 Body weight 82.1 kg Jose Enrique Leblanc II Other [employer] Other 11-09-2022 10:30-0400 Body height 167.64 cm Cecilio Ball Other [employer] Other 11-09-2022 10:30-0400 Body mass index (BMI) [Ratio] 29.23 kg/m2 Cecilio Ball Other [employer] Other 11-09-2022 10:30-0400 Body weight 82.15 kg Cecilio Ball Other [employer] Other 11-09-2022 10:30-0400 Diastolic blood pressure 79 mm[Hg] Cecilio Ball Other [employer] Other 11-09-2022 10:30-0400 Respiratory rate 20 /min Cecilio Ball Other [employer] Other 11-09-2022 10:30-0400 Systolic blood pressure 152 mm[Hg] Cecilio Ball Other [employer] Other 10-12-2022 10:00-0500 Body height 167.64 cm Cecilio Ball Other [employer] Other 10-12-2022 10:00-0500 Body mass index (BMI) [Ratio] 29.24 kg/m2 Cecilio Ball Other [employer] Other 10-12-2022 10:00-0500 Body weight 82.19 kg Cecilio Ball Other [employer] Other 10-12-2022 10:00-0500 Diastolic blood pressure 70 mm[Hg] Cecilio Ball Other [employer] Other 10-12-2022 10:00-0500 Respiratory rate 12 /min Cecilio Benjamin Other [employer] Other 10-12-2022 10:00-0500 Systolic blood pressure 102 mm[Hg] Cecilio Benjamin Other [employer] Other Encounters Encounter Date Encounter Type Care Provider Facility Start: 04-07-2024 End: 04-07-2024 [facility] Start: 03-31-2024 End: 03-31-2024 ambulatory Maddie Villalobos [...] Facility: [facility] Start: 01-22-2024 End: 01-22-2024 ambulatory [facility] Work Phone: Start: 01-22-2024 End: 01-22-2024 Patient encounter procedure [facility] Work Phone: Start: 10-30-2023 Non-patient / Non-visit [facility] [employer] Work Phone: Start: 09-28-2023 End: 09-28-2023 ambulatory Cecilio Ball Other [employer] Other Start: 09-28-2023 Office outpatient vi sit 15 minutes Cecilio Ball [facility] Start: 09-28-2023 Telephone encounter Cecilio Ball [facility] Start: 09-21-2023 End: 09-21-2023 ambulatory Cecilio Ball Other [employer] Other Start: 09-21-2023 Telephone encounter Cecilio Ball [facility] Start: 09-11-2023 End: 09-11-2023 ambulatory Cecilio Ball Other [employer] Other Start: 09-11-2023 Office outpatient vi sit 15 minutes Cecilio Ball [facility] Start: 09-11-2023 Telephone encounter Cecilio Ball [facility] Start: 09-03-2023 End: 09-03-2023 ambulatory Cecilio Ball Other [employer] Other Start: 09-03-2023 Telephone encounter Cecilio Ball [facility] Start: 08-03-2023 End: 08-03-2023 ambulatory Cecilio Ball Other [employer] Other Start: 08-03-2023 Telephone encounter Cecilio Ball [facility] Start: 08-01-2023 End: 08-01-2023 ambulatory Cecilio Ball Other [employer] Other Start: 08-01-2023 Office outpatient vi sit 15 minutes Cecilio Ball [facility] Start: 07-17-2023 End: 07-17-2023 ambulatory Cecilio Ball Other [employer] Other Start: 07-17-2023 Office outpatient vi sit 15 minutes Cecilio Ball [facility] Start: 07-10-2023 End: 07-10-2023 ambulatory Cecilio Ball Other [employer] Other Start: 07-10-2023 Office outpatient vi sit 15 minutes Cecilio Ball [facility] Start: 06-20-2023 End: 06-20-2023 ambulatory Cecilio Benjamin Other [employer] Other Start: 06-20-2023 Office outpatient vi sit 25 minutes Cecilio Benjamin [facility] Start: 06-15-2023 End: 06-15-2023 ambulatory Cecilio Benjamin Other [employer] Other Start: 06-15-2023 Telephone encounter Cecilio Benjamin [facility] Start: 05-30-2023 End: 05-30-2023 ambulatory Cecilio Benjamin Other [employer] Other Start: 05-30-2023 Office outpatient vi sit 15 minutes Cecilio Benjamin [facility] Start: 03-20-2023 Telephone encounter David Jaeger DO Work Phone: [facility] Comment on above: Follow Up Phone Call Start: 03-15-2023 End: 03-15-2023 ambulatory DAVID JAEGER Facility:[facility] Start: 02-27-2023 Orders Only David Marcos DO Work Phone: Procedures Comment on above: Pseudoclaudication s yndrome (Primary Dx); Lumbar radiculopathy Start: 02-26-2023 Telephone encounter David Jaeger DO Work Phone: [facility] Comment on above: Procedure Start: 02-19-2023 Telephone encounter David Jaeger DO Work Phone: [facility] Comment on above: Appointment Start: 02-14-2023 End: 02-14-2023 ambulatory Cecilio Benjamin Other [employer] Other Start: 02-14-2023 Patient encounter procedure Cecilio Benjamin [facility] Start: 02-13-2023 End: 02-13-2023 ambulatory Cecilio Benjamin Other [employer] Other Start: 02-13-2023 Telephone encounter Cecilio DENISE [facility] Start: 02-08-2023 End: 02-08-2023 ambulatory Cecilio Benjamin Other [employer] Other Start: 02-08-2023 Telephone encounter Cecilio Benjamin [facility] Start: 02-01-2023 End: 02-01-2023 ambulatory Jose Enrique Leblanc II Other [employer] Other Start: 02-01-2023 Office outpatient vi sit 25 minutes Jose Enrique Cleveland II [facility] Start: 12-11-2022 End: 12-11-2022 ambulatory Cecilio Benjamin Other [employer] Other Start: 12-11-2022 Office outpatient vi sit 15 minutes Cecilio Benjamin [facility] Start: 11-09-2022 End: 11-09-2022 ambulatory Jose Enrique Leblanc II Facility:[facility] Start: 11-09-2022 End: 11-09-2022 Patient encounter procedure MD Jose Enrique Leblanc II Work Phone: [facility] Start: 11-09-2022 End: 11-09-2022 ambulatory MD Jose Enrique Leblanc II Work Phone: [facility] Work Phone: Start: 11-09-2022 Office outpatient ne w 45 minutes Jose Enrique Leblanc II [facility] Start: 11-09-2022 Office outpatient vi sit 15 minutes Cecilio Benjamin [facility] Start: 11-05-2022 End: 11-05-[address] CECILIO BENJAMIN Facility:[facility] Start: 10-12-2022 End: 10-12-2022 ambulatory Cecilio Benjamin Other [employer] Other Start: 10-12-2022 Office outpatient vi sit 25 minutes Cecilio Benjamin [facility] Start: 09-27-2022 End: 09-27-2022 ambulatory Cecilio Benjamin Other [employer] Other Start: 09-27-2022 Telephone encounter Cecilio Benjamin [facility] Start: 09-26-2022 End: 09-27-[address] CECILIO BENJAMIN Facility:[facility] Start: 08-25-2022 End: 08-25-2022 ambulatory Cecilio Benjamin [facility] [employer] Other Start: 08-25-2022 Telephone encounter Cecilio Benjamin [facility] Start: 08-10-2022 End: 08-10-[address] CECILIO BENJAMIN Facility:[facility] Start: 02-09-2022 End: 02-10-[address] CECILIO BENJAMIN Facility:[facility] Start: 12-06-2021 End: 12-07-[address] CECILIO BENJAMIN Facility:[facility] Start: 01-22-2018 End: 04-20-2018 Patient encounter [id number] AUGUSTINE BRANDON Facility:[facility] Procedures Date Procedure Procedure Detail Performing Clinician Start: 11-09-2022 Pelvis X-ray MD Jose Enrique Leblanc II Work Phone: Start: 11-09-2022 Radiologic examinati on of knee MD Jose Enrique Leblanc II Work Phone: Plan of Treatment Date Care Activity Detail Author Start: 01-22-2024 Patient referral [facility] Work Phone: Start: 04-20-2023 Influenza vaccination INFLUENZA (#1) [facility] Start: 10-01-2022 COVID-19 VACCINE (5 - Moderna series) COVID-19 VACCINE (5 - Moderna series) [facility] Start: 08-20-2022 ADVANCE DIRECTIVE DISCUSSION ADVANCE DIRECTIVE DISCUSSION [facility] Start: 08-20-2022 DEPRESSION ASSESSMENT DEPRESSION ASS ESSMENT [facility] Start: 09-19-2021 COVID-19 VACCINE (4 - Booster for Moderna series) COVID-19 VACCINE (4 - Booster for Moderna series) [facility] Start: 09-19-2021 COVID-19 VACCINE (4 - Moderna series) COVID-19 VACCINE (4 - Moderna series) [facility] Start: 01-02-2021 DIABETES SCREEN DIABETES SCREEN [facility] Start: 1991 SHINGRIX VACCINE (1 of 2) SHINGRIX VACCINE (1 of 2) [facility] Start: 1960 Urine microalbumin profile DTAP,TDAP,TD (1 - Tdap) [facility] Start: 1959 SPIROMETRY SPIROMETRY [facility] Start: 1947 PNEUMOCOCCAL: 65+ (1 - PCV) PNEUMOCOCCAL: 65+ (1 - PCV) [facility] Comprehensive metabo lic 2000 panel - Serum or Plasma [facility] Patient referral [facility] Work Phone: SPINE INTERVENTION PROCEDURE SPINE INTERVENTION PROCEDURE Procedures Routine Spinal stenosis, lumbar region with neurogenic claudication Lumbar radiculopathy, chronic Ordered: 02/19/2023 [facility] Work Phone: Comment on above: Ordered: 02/19/2023 [facility] Immunizations Immunization Date Immunization Notes Care Provider Fa cili 05-30-2023 COVID-19 Vaccine Moderna - Documentation Purposes Only Cecilio Benjamin Other [facility] 05-30-2023 influenza virus vaccine, unspecified formulation [facility] 05-30-2023 influenza, high dose seasonal, preservative-free Cecilio Benjamin Other [facility] Other 06-13-2022 influenza virus vaccine, split virus (incl. purified surface antigen) Cecilio Benjamin Other [facility] Other 06-13-2022 influenza virus vaccine, unspecified formulation [facility] 06-13-2022 influenza, high dose seasonal, preservative-free Jose Enrique Leblacn II Other [facility] Other 05-31-2022 COVID-19 Pfizer (bivalent) Jose Enrique Leblanc II Other [facility] 05-31-2022 COVID-19 Pfizer (Pediatric) Cecilio Benjamin Other [facility] 07-25-2021 COVID-19 Vaccine Moderna - Documentation Purposes Only Jose Enrique Leblanc II Other [facility] 05-03-2021 zoster vaccine recombinant Jose Enrique Cleveland II Other [facility] 05-03-2021 zoster vaccine, live Benjami n Ball Other [facility] 01-28-2021 zoster vaccine recombinant Jose Enrique Cleveland II Other [facility] 01-28-2021 zoster vaccine, live Benjami n Ball Other [facility] 10-25-2020 COVID-19 Vaccine Moderna - Documentation Purposes Only Jose Enrique Cleveland II Other [facility] 09-27-2020 COVID-19 Vaccine Moderna - Documentation Purposes Only Jose Enrique Cleveland II Other [facility] 05-24-2020 influenza virus vaccine, split virus (incl. purified surface antigen) Cecilio Benjamin Other [facility] Other 05-24-2020 influenza virus vaccine, unspecified formulation [facility] 01-03-2019 diphtheria, tetanus toxoids and acellular pertussis vaccine, unspecified formulation Cecilio Benjamin Other [facility] 12-25-2018 pneumococcal polysaccharide vaccine, 23 valent Jose Enrique Benji II Other [facility] 04-30-2018 influenza virus vaccine, split virus (incl. purified surface antigen) Cecilio Benjamin Other [facility] Other 04-30-2018 influenza virus vaccine, unspecified formulation [facility] 04-09-2017 influenza virus vaccine, split virus (incl. purified surface antigen) Cecilio Benjamin Other [facility] Other 04-09-2017 influenza virus vaccine, unspecified formulation [facility] 05-31-2016 zoster vaccine, live Jose Enrique Cleveland II Other [facility] 05-13-2016 influenza virus vaccine, split virus (incl. purified surface antigen) Cecilio Benjamin Other [facility] Other 05-13-2016 influenza virus vaccine, unspecified formulation [facility] 05-09-2015 influenza virus vaccine, split virus (incl. purified surface antigen) Cecilio Benjamin Other [employer] [facility] [employer] Other 05-09-2015 influenza virus vaccine, unspecified formulation [facility] 03-06-2015 pneumococcal conjuga te vaccine, 13 valent Jose Enrique Cleveland II Other [facility] 05-07-2014 tetanus and diphther ia toxoids, adsorbed, preservative free, for adult use (5 Lf of tetanus toxoid and 2 Lf of diphtheria toxoid) Cecilio Benjamin Other [facility] 04-23-2013 tetanus and diphther ia toxoids, adsorbed, preservative free, for adult use (5 Lf of tetanus toxoid and 2 Lf of diphtheria toxoid) Cecilio Benjamin Other [facility] 08-21-2012 pneumococcal polysaccharide vaccine, 23 valent Cecilio Benjamin Other [facility] 12-12-2011 zoster vaccine, live Jose Enrique Cleveland II Other [facility] Payers Date Payer Category Payer Self-pay 2022 Unknown [id number] 2018 Medicare [id number] 2006 Medicare [id number] 2006 Unknown [id number] 1959 Medicare [id number] 2.1 [id number] 1959 Unknown [id number] 2.16. [id number] 1941 Unknown [id number] 2.16.84 [id number] 1941 Unknown [id number] 2.16.84 [id number] 1941 Unknown [id number] 2.16.84 [id number] 1941 Unknown [id number] 2.16.84 0.1.365801.3.579.2.593 1941 Unknown [id number] 2.16.84 [id number] 1941 Unknown [id number] 2.16. [id number] 1941 Unknown [id number] 2.16. [id number] 1941 Unknown [id number] 2.16. [id number] 1941 Unknown [id number] 2.16. [id number] 1941 Unknown [id number] 2.16. [id number] 1941 Unknown [id number] 2.16. [id number] 1941 Unknown [id number] 2.16. [id number] Unknown [id number] 2.16.8 [id number] Social History Date Type Detail Facility Start: 05-09-2021 End: 03-15-2023 Sex Assigned At [facility] Start: 1940 Sex Assigned At Male F [facility] Start: 06-13-2017 End: 01-22-2024 Tobacco smoking status NHIS Never smoked tobacco [facility] Start: 06-13-2017 Tobacco use and exposure Smokeless tobacco non-user [facility] Start: 05-09-2021 Alcohol intake Current drinke r of alcohol (finding) [facility] Start: 12-11-2017 Alcohol Comment [facility] Start: 1940 Sex Assigned At Not on file C [facility] Start: 05-09-2021 End: 03-15-2023 History of Social function [facility] Adult Depression Screening Assessment 1 [facility] Medical Equipment Procedure Code Equipment Code Equipment Origin al Text Equipment Identifier Dates Witter Swivelock Tenodesis 8mm Biocomposite 19.5mm Suture [place] Eyelet - [id number] Start: 06-29-2017 Sleeve V40 +0mm Offset [place] Taper Titanium Adapter Hip - [id number] Start: 01-01-2018 Screw Trident Secur-Fit Torx 6.5mm Titanium 20mm Bone Sterile Acetabular - [id number] [facility] Start: 01-01-2018 Clinical Notes 08-25-2022 to 01-22-2024 Note Date & Type Note Facility 01-22-2024 Evaluation note Diagnosis Onset Date Chronic bronchitis, simple a cute Chronic kidney disease, stage 3a acute Elevated cholesterol acute Generalized anxiety disorder acute Hypertension acute Lumbar spondylolysis acute Obstructive sleep apnea acut e Medicare annual wellness visit, subsequent noneactive [facility] Work Phone: [phone] 348-146702-09-2024 Evaluation note* Encounter Date Diagnosis Assessment Notes [...] and clinically improving, no further treatment necessary [employer] Other 02-02-2024 Evaluation note* Encounter Date Diagnosis Assessment Notes Treatment Notes Treatment Clinical Notes Sep, Carotid bruit, unspecified laterality (ICD-10 - R09.89) [employer] Other 01-23-2024 Evaluation note* Encounter Date Diagnosis [...] tid Initiate Prednisone _update office on Sunday [employer] Other 01-15-2024 Evaluation note* Encounter Date Diagnosis Assessment Notes Treatment Notes Treatment Clinical Notes Aug, JONATHAN (generalized anxiety disorder) (ICD-10 - F41.1) [employer] Other 12-13-2023 Evaluation note* Encounter Date Diagnosis [...] best 2/3 readings w/ goal < 135/85 [employer] Other 11-28-2023 Evaluation note* Encounter Date Diagnosis [...] daily for blisters and ulcerations. Moisturizers daily [employer] Other 11-21-2023 Evaluation note* Encounter Date Diagnosis [...] Call if develop increased pain or erythema [employer] Other 11-01-2023 Evaluation note* Encounter Date Diagnosis [...] use, the patient reduces the risk for DE, CVA, HTN, cardiac dysrhythmias and sudden cardiac [...] very active. No change in medical treatment [employer] Other 10-27-2023 Evaluation note* Encounter Date Diagnosis Assessment Notes Treatment Notes Treatment Clinical Notes May, JONATHAN (generalized anxiety disorder) (ICD-10 - F41.1) [employer] Other 10-11-2023 Evaluation note* Encounter Date Diagnosis [...] They may safely use Tylenol as needed. [employer] Other 08-01-2023 Miscellaneous Notes* Telephone Encounter - Neida Porter MA - 03/20/2023 12:26 PM EDT DATE OF SERVICE: 03/15/2023 PATIENT'S PHONE NUMBERS: [phone] (home) OR @[email or web address]@ PROVIDER: Dr. Jaeger PROCEDURE: Elective Pain Management Procedure Left message on machine Asked pt to call back and speak with the specialty triage nurse with update. Please obtain percentage better and the duration of improvement. Please inquire if there were any problems afterwards. Neida Brink documented in this encounterProm[facility] Miscellaneous Notes* Telephone Encounter - Linda Knox LPN - 02/26/2023 4:42 PM EDT Spoke to patient in reguards to pre procedure instructions. Pt must have a straddle truck driver. Pt advised to arrive 30 [...] take. Advised on location of [facility]-2nd floor [facility] Pt will receive a follow up call several days after by a steam power plant operator. If you experience any increase in weakness, difficulty walking or significant increase in pain thatlast more than 4 hours, please proceed to the Emergency Room and tell them you had a spine procedure done recently. Additionally, call us and notify us of these symptoms. Please call [phone] if you have any questions. Pt verbalized understanding. documented in this encounterProm[facility]07-03-2023 Miscellaneous Notes* Telephone Encounter - Linda Knox LPN - 02/19/2023 11:57 AM EDT Order approved [facility] to pre procedure instructions. Daughter given scheduling number [phone] Pt must have a straddle truck driver. Pt advised to arrive 30 min prior to the time given by the candy rolling machine operator. Pt advised will also receive a call [...] call several days after by a steam power plant operator. If you experience any increase in weakness, difficulty walking or significant increase in pain thatlast more than 4 hours, please proceed to the Emergency Room and tell them you had a spine procedure done recently. Additionally, call us and notify us of these symptoms. Please call [phone] if you have any questions. Pt verbalized [...] call Celi as patient cannot hear well [phone] Patient has been identified by name and birthdate. Duration of symptoms: N/A Person calling: daughter: Celi Call patient at: N/A [phone] (home) [phone] (cell) Was an appointment scheduled: No Closing statement: Results or non-symptom based questions: Thank you for calling [facility], your call will be returned within the next business day. Camilla Jarrell Pss documented in this encounterPromedica Toledo Hospital06-28-2023 Evaluation note* Encounter Date Diagnosis Assessment [...] use, the patient reduces the risk for DE, CVA, HTN, cardiac dysrhythmias and sudden cardiac [...] (ICD-10 - F41.1) Healthy diet, keep active [employer] Other 06-22-2023 Evaluation note* Encounter Date Diagnosis Assessment Notes Treatment Notes Treatment Clinical Notes Jan, Elevated cholesterol (ICD-10 - E78.00) Jan, Stage 3a chronic kidney disease (ICD-10 - N18.31) Jan, Primary hypertension (ICD-10 - I10) Jan, Screening PSA (prostate specific antigen) (ICD-10 - Z12.5) Jan, High risk medication use (ICD-10 - Z79.899) [employer] Other 06-15-2023 Evaluation note* Encounter Date Diagnosis [...] this time 6. Follow up as needed [employer] Other 04-24-2023 Evaluation note* Encounter Date Diagnosis [...] use of statin, experiencing ADR and stopped [employer] Other 03-23-2023 Evaluation note* Encounter Date Diagnosis [...] - M17.12) Quad exercises, ice/heat and Tylenol [employer] Other 03-23-2023 Evaluation note* Encounter Date Diagnosis [...] injection well. 6. Follow up as needed [employer] Other 02-23-2023 Evaluation note* Encounter Date Diagnosis [...] use, the patient reduces the risk for DE, CVA, HTN, cardiac dysrhythmias and sudden cardiac [...] tract symptoms (ICD-10 - N40.1) Symptoms tolerable [employer] Other 02-08-2023 Evaluation note* Encounter Date Diagnosis Assessment Notes Treatment Notes Treatment Clinical Notes Sep, Elevated cholesterol (ICD-10 - E78.00) Sep, Stenosis of right carotid artery (ICD-10 - I65.21) Sep, Retinal hemorrhage of right eye (ICD-10 - H35.61) [employer] Other 01-06-2023 Evaluation note* Encounter Date Diagnosis Assessment Notes Treatment Notes Treatment Clinical Notes Aug, Carotid bruit, unspecified laterality (ICD-10 - R09.89) [employer] Other Evaluation noteNo assessment information available [facility] Work Phone: Evaluation noteNo InformationNort [facility] Other Evaluation note* Diagnosis Spinal stenosis, lumbar region with neurogenic claudication- Primary Lumbar radiculopathy, chronic Thoracic or lumbosacral neuritis or radiculitis, unspecified [facility] Diagnosis Pseudoclaudication syndrome- Primary Spinal stenosis, lumbar region, with neurogenic claudication Lumbar radiculopathy Thoracic or lumbosacral neuritis or radiculitis, unspecified Pseudoclaudication syndrome Spinal stenosis, lumbar region, with neurogenic claudication Lumbar radiculopathy Thoracic or lumbosacral neuritis or radiculitis, unspecified documented in this encounter [facility] general Narrative - Reported* Type Description [...] JANELLE 06/2017 Hospitalization History see surgical history [employer] Other Hospital Discharge instructionsAmbulatory Orders* Referral to Pain Management Location: None [facility] Work Phone: Summary Purpose Family History [...] section and content) DATE CREATED AUTHOR 02/06/2018 [facility] DATE CREATED AUTHOR AUTHOR'S ORGANIZ ATION 06/10/2018 [facility] DATE CREATED AUTHOR AUTHOR'S ORGANIZ ATION 11/06/2022 [facility] DATE CREATED AUTHOR AUTHOR'S ORGANIZ ATION 12/21/2022 [facility] DATE CREATED AUTHOR AUTHOR'S ORGANIZ ATION 03/15/2023 [facility] DATE CREATED AUTHOR AUTHOR'S ORGANIZ ATION 03/22/2023 [facility] DATE CREATED AUTHOR AUTHOR'S ORGANIZ ATION 04/18/2024 [facility] REASON FOR VISIT (unrecogniz ed section and content) Reason Comments Appointment Reason Comments Procedure Reason Comments Follow Up Phone Call Care Teams (unrecognized sec tion and content) Team Status: Inactive Member Role Status Dates Jose Enrique Leblanc II, MD Attending Provider Active Presales Consultant Relationship Specialty Start Date End Date Cecilio Benjamin DO PCP - General Internal Medicine 09/04/13 Presales Consultant Relationship Specialty Start Date End Date Cecilio Benjamin DO PCP - General Internal Medicine 09/04/13 Presales Consultant Relationship Specialty Start Date End Date Cecilio Benjamin DO PCP - General Internal Medicine 09/04/13 Presales Consultant Relationship Specialty Start Date End Date Cecilio [...] or prosecute any alcohol or drug abuse patient.[facility] HospitalIn the event this information is protected by the Federal Confidentiality of Alcohol and Drug Abuse Patient Records regulations: The Federal rules restrict any use of the information to criminally investigate or prosecute any alcohol or drug abuse patient.[facility] HospitalIn the event this information is protected by the Federal Confidentiality of Alcohol and Drug Abuse Patient Records regulations: The Federal rules restrict any use of the information to criminally investigate or prosecute any alcohol or drug abuse patient.[facility] HospitalIn the event this information is protected by the Federal Confidentiality of Alcohol and Drug Abuse Patient Records regulations: The Federal rules restrict any use of the information to criminally investigate or prosecute any alcohol or drug abuse patient.[facility] FOR RECORDS PERTAINING TO PATIENTS WHO [...] BE BASED ON THE PRIMARY CLINICAL RECORDS. [facility]. provides no warranty or guarantee of the accuracy or completeness of information in this document.
[2024-05-26 08:22] VITALS: BP 156/74; PULSE 61; TEMP 36.3; O2SAT 97
[2024-05-26] MEDS: BUPIVACAINE HCL 0.25% PF 25 MG/10 ML VIAL 5 ML INJ (09:10)
[2024-05-26] MEDS: IOHEXOL 240 MG/ML - 10 ML VIAL INJ (09:10)
[2024-05-26] MEDS: LIDOCAINE HCL 2% 400 MG/20 ML MDV 15 ML INJ (09:10)
[2024-05-26] MEDS: TRIAMCINOLONE ACETONIDE 40 MG/ML VIAL INJ (09:11)
--- NOTE | 2024-05-26 09:17 | W.PM.PROCNOT ---
Date of procedure: 05/26/24 Pre-op diagnosis: Pain due to sacroiliitis, left Post-op diagnosis: same as pre-op Procedure: Procedure: Left sacroiliac joint injection Medications: Bupivacaine 0.25% 3cc, kenalog 40mg After informed consent was obtained, the patient was brought to the medical procedure unit and placed in the prone position, when a timeout was completed verifying correct patient, procedure, site, positioning, implant, and/or special equipment.? The skin overlying the area was prepped and draped in standard sterile fashion using alcohol.? A 25-gauge needle was inserted towards the left sacroiliac joint under direct fluoroscopic imaging.? Needle tip was advanced until the joint was encountered.? We instilled a total of 2 mL of solution.? Postoperatively needles were removed.? The patient tolerated the procedure well without complication.? The patient reported reduction in pain symptoms postoperatively. Anesthesia: Local Surgeon: Maddie Villalobos Pathology: none sent Condition: stable Disposition: no change
[2024-05-26 10:19] VITALS: BP 147/74; BP 148/71; PULSE 60; O2SAT 97; O2SAT 98
== END 2024-05-26 09:16 | disposition home or self-care (01) ==
LOC: SURGOUT 07:56
PROVIDERS: PCP Internal Medicine; Visit Provider Anesthesiology
DX: M46.1 Sacroiliitis, not elsewhere classified (principal)
CPT/HCPCS: 27096; J0665; J3301; Q9966

== ENCOUNTER 2024-06-11 11:59 | Outpatient (OUT) | payer MEDICARE, OTHER, SELFPAY ==
--- OUTSIDE RECORDS SUMMARY | 2024-06-11 12:11 | XMS_ITS | CCD ---
Author Organization [facility] Care Team Providers Care Honey Extractor Name Role Phone CECILIO [phone] UNKNOWN Unavailable Unavailable BETH GOODEN Unavailable Unavailable [...] LA FUENTE ., MR SWE[employer] Consult[employer] Unavailable KNABERADHA Consulting Unavailable SOURAV, DR RUIZ Admitting Unavailable [...] bacitracin; Translations: [bacitracin] Drug Allergy 09-11-2013 Unknown [facility] Repository (19 sources) Albuterol Drug Allergy Unknown [facility] Other (20 sources) HMG-CoA reductase inhibitor Drug allergy Unknown [facility] Other Medications Current Medications Medication Drug Class(es) Dates Sig (Normalized) Sig (Original) acetaminophen 325 mg oral tablet (20 sources) Start: 10-17-2023 take 2 tablets by mouth every eight hours as needed Acetaminophen Active 325 MG PO Every 8 hours October 17, 2023 1:00am 2 tablets by mouth orally every 8 hours PRN Start: 01-02-2018 take 2 tablets by [facility] every eight hours acetaminophen (TYLENOL) 500 mg tablet Take 2 tablets by mouth every 8 hours. (Mild pain reliever) 90 tablet 1 01/02/2018 Active take 2 tablets by mo ut every eight hours as needed Acetaminophen 325 MG 2 tablets by mouth Orally every 8 hours PRN Active Comment on above: Take 2 tablets by [facility] every 8 hours. (Mild pain reliever) amLODIPine 2.5 mg oral tablet (20 sources) Dihydropyridine Calcium Channel Chanel Start: 4 End: 4 take 2.5 mg by mouth once daily Amlodipine Active 2.5 MG PO Daily 90 90 October 19, 2023 11:05am Start: 10-12-2022 take 1 tablet by christen every twenty-four hours amLODIPine Besylate 2.5 MG [...] tablet (20 sources) Benzodiazepine Start: 10-17-2023 End: 04-02-2024 take 0.5 mg by mouth once daily Clonazepam Active 0.5 MG PO Daily April 02, 2024 1:33pm Start: 09-03-2023 take 1 tablet by christen [...] tablet (20 sources) Serotonin Reuptake Inhibitor Start: 04-02-2024 Escitalopram Oxalate Active 0 .ROUTE .COMPLEX April 02, 2024 1:32pm TAKE 1 TABLET AT BEDTIME Start: 10-17-2023 End: 04-02-2024 take 10 mg by mouth once daily at bedtime Escitalopram Oxalate Discontinued 10 MG PO Daily at bedtime October 19, 2023 11:07am April 02, 2024 1:34pm Escitalopram Oxa late 10 MG TAKE 1 [...] tablet (20 sources) Nonsteroidal Anti-inflammatory Drug Start: 04-02-2024 Nabumetone Active 0 .ROUTE .COMPLEX April 02, 2024 1:32pm TAKE 1 TABLET TWICE A DAY Start: 10-17-2023 End: 04-02-2024 take 500 mg by mouth twice daily Nabumetone Discontinued 500 MG PO Twice daily October 19, 2023 11:07am April 02, 2024 1:34pm Start: 02-08-2021 nabumetone (RE LAFEN) 500 mg [...] Drug Class(es) Dates Sig (Normalized) Sig (Original) [id number] 200 actuat albuterol 0.09 mg/actuat metered dose inhaler (16 sources) beta2-Adrenergic Agonist Start: 10-19-2023 End: 10-30-2023 take 2.5 mg by inhalation every four to six hours Albuterol Sulfate Active 2.5 MG INHALATION EVERY 4-6 HOURS 540 October 30, 2023 1:20pm Start: 10-10-2023 End: 01-22-2024 take 1 puff(s) by inhalation every four to six hours Albuterol Sulfate Discontinued 2 PUFF INHALATION EVERY 4-6 HOURS 8.5 October 19, 2023 11:09am January 22, 2024 9:29am Start: 09-28-2023 Albuterol Sulf ate (2.5 MG/3ML) [...] Comment on above: Take 1 tablet by [facility] twice daily. (Blood thinner to prevent blood clots) Calcium Carbonate / vitamin D3 (4 sources) take 1 tablet by mouth once daily CALCIUM CARBONATE/VITAMIN D3 (VITAMIN D-3 ORAL) Take 1 tablet by mouth once daily. 0 Active Comment on above: Take 1 tablet by [facility] once daily. COMPOUNDED PRESCRIPTION (4 sources) COMPOUNDED [...] Comment on above: Take 1 capsule by [facility] twice daily. (Stool softener) doxycycline hyclate 100 mg oral capsule (16 sources) Tetracycline-class Drug Start: 10-17-2023 End: 10-19-2023 take 100 mg by mouth twice daily Doxycycline Hyclate Discontinued 100 MG PO Twice daily October 17, 2023 1:00am October 19, 2023 11:06am Start: 07-10-2023 take 1 capsule by [facility] every twelve hours Doxycycline Hyclate 100 [...] Problem Date Documented Date Episodic/Chronic Acute bronchitis (11 sources) Acute bronchitis; Translations: [Acute bronchitis due [...] Translations: [Chronic obstructive pulmonary disease, unspecified] Chronic Diabetes mellitus without complication (1 source) Hyperglycemia; Translations: [Impaired fasting glucose] 05-28-2024 Episodic Disorders of lipid metabolism (20 sources) Pure [...] [Spondylolysis, lumbar region] Episodic Other acquired deformities (2 sources) Spondylolysis; Translations: [Spondylolysis, lumbar region] 10-18-2023 Episodic Other acquired deformities (2 sources) Spondylolysis, lumbar region; Translations: [Acquired spondylolisthesis] 01-22-2024 Episodic Other aftercare (2 sources) Other nursing home (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 therapy; Translations: [OTH [facility]DC CURRENT DRUG THERAPY] Onset: 11-06-2022 Episodic Other [...] (adult) (pediatric)] 01-02-2018 Chronic Residual codes; unclassified (5 sources) Obstructive sleep apnea (adult) (pediatric); Translations: [...] Facility [facility] 03-20-2023 [facility] Telephone (SPNMAV) RUPERTO THORPE ([id number]) 1940 [address] [employer] [employer] Date Time Provider Department 03/20/23 DAVID JAEGER SPALAV During your visit today, we recorded the following information about you: Neida Porter MA 03/20/2023 12:30 PM Signed DATE OF SERVICE: 03/15/2023 PATIENT'S PHONE NUMBERS: [phone] (home) OR @[facility]@ PROVIDER: Dr. Jaeger PROCEDURE: Elective [...] work Requesting to call his CELL ONLY [phone] what to do next Leave Detailed messages [...] of spine injection schedulers to call at [phone]. Patient will call if he wants to schedule another injection. 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 Author [...] offered a procedure / surgery at a [facility] facility. Patient and I have [...] indicated on the consent form. [facility] approved time out was performed identifying the site, side and level of procedure prior to start of procedure. [facility] - ELECTIVE PROCEDURE Lumbar Transforaminal Epidural [...] the entire procedure. David Jaeger DO, MBA [facility] 02-26-2023 [facility] Telephone (SPNMAV) RUPERTO THORPE ([id number]) 1940 M [facility] Date Time Provider Department 02/26/23 DAVID JAEGER During your visit today, we recorded the following information about you: Linda Knox LPN 02/26/2023 4:49 PM Signed Spoke to patient in reguards to pre procedure instructions. Pt must have a delivery truck driver heavy. Pt advised to arrive 30 min prior. [...] take. Advised on location of ASC-2nd floor [facility] Pt will receive a follow up call several days after by a team assembly line machine operator. If you experience any increase in weakness, difficulty walking or significant increase in pain that last more than 4 hours, please proceed to the Emergency Room and tell them you had a spine procedure done recently. Additionally, call us and notify us of these symptoms. Please call [phone] if you have any questions. Pt verbalized [...] Status:Closed by LINDA KNOX LPN on 02/26/23 [facility] Unique 02-19-2023 CNPN Telephone (SPNMAV) RUPERTO THORPE ([id number]) 1940 [employer] Date Time Provider [...] call Celi as patient cannot hear well [phone] Patient has been identified by name and birthdate. Duration of symptoms: N/A Person calling: daughter: Celi Call patient at: N/A [phone] (home) [phone] (cell) Was an appointment scheduled: No Closing statement: Results or non-symptom based questions: Thank you for calling [facility], your call will be returned within the next business day. Camilla Jarrell Pss Linda Chandler ASSOCIATE PROFESSOR OF PSYCHOLOGY 02/19/2023 9:45 AM Signed Spine Intervention order formatted for review Linda Chandler ASSOCIATE PROFESSOR OF PSYCHOLOGY 02/19/2023 11:59 AM Signed Order approved Spoke to daughter in reguards to pre procedure instructions. Daughter given scheduling number [phone] Pt must have a delivery truck driver heavy. Pt advised to arrive 30 min prior to the time given by the strong nitric operator. Pt advised will also receive a call the day before from the surgery center to confirm date/time. Pt can eat and drink as normal. and Pt can take medications as normal. No alcohol 24 hours prior. Pt is on ASA.- 81 mg okay to take. and must Advised on location of ASC-2nd floor [facility] Pt will receive a follow up call several days after by a team assembly line machine operator. If you experience any increase in weakness, difficulty walking or significant increase in pain that last more than 4 hours, please proceed to the Emergency Room and tell them you had a spine procedure done recently. Additionally, call us and notify us of these symptoms. Please call [phone] if you have any questions. Pt verbalized understanding. 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 Normal [facility] XR knee LT 4V*on 11-09-2022 XR knee LT 4V* [facility] Main [place] [id number] XRay Report Signed Patient: Ruperto Thorpe MR#: [id number] 5 : 1940 Acct:[id number] Age/Sex: 82 / M ADM Date: 11/09/22 Loc: SOXD Room: Type: [facility] Attending Dr: Jose Enrique Leblanc II, MD [...] Darren Yuen M.D.11/09/2022 5:03 PM Dictation Location: [place] [address] Transcribed By: [facility] 11/09/221702 Dictated By: Darren Yuen II, MD 11/09/221700 Signed By: 11/09/221702 Normal [facility] XR knee LT 4V* [facility] Other XR knee LT 4V* [facility] [place] [employer] Other XR knee LT 4V* [address] [facility] [employer] Other XR knee LT 4V* [place] [address] No rt [employer] Other XR knee LT 4V* XRay Report [employer] Other XR knee LT 4V* Signed [employer] Other XR knee LT 4V* Patient: Ruperto Thorpe MR#: [id number] [place] [employer] Other XR knee LT 4V* 5 [employer] Other XR knee LT 4V* : 1940 Acct:[id number] [place] [employer] Other XR knee LT 4V* Age/Sex: 82 / M ADM Date: 11/09/22 [facility] Other XR knee LT 4V* Loc: SOXD Room: Type : [facility] Other XR knee LT 4V* Attending Dr: Jose Enrique Leblanc II, MD [place] [employer] Other XR knee LT 4V* Copies to: Jose Enrique Leblanc MD [facility] Other XR knee LT 4V* Ordering Provider: Jose Enrique Leblanc MD [facility] Other XR knee LT 4V* Date of Service: 11/09/22 [facility] Other XR knee LT 4V* XR/XR knee LT 4V*: Acute pain of left knee [facility] Other XR knee LT 4V* XR knee LT 4V* 11/09/2022 3:15 PM [facility] Other XR knee LT 4V* SIGNS AND SYMPTOMS: Acute pain of left knee [facility] Other XR knee LT 4V* PROTOCOL: Frontal, lateral, oblique, and sunrise views of the left knee [facility] Other XR knee LT 4V* COMPARISON: 11/05/2022 [facility] Other XR knee LT 4V* FINDINGS: [employer] Other XR knee LT 4V* There is similar narrowing of the weightbearing joint spaces with chondrocalcinosis of the menisci [facility] Other XR knee LT 4V* suggesting underlyin g CPPD. There is narrowing of the patellofemoral joint space with spurring at [facility] Other XR knee LT 4V* the superior pole of patella. There is a small joint effusion. No soft tissue swelling. No acute [facility] Other XR knee LT 4V* displaced fracture. Vascular calcifications are present posteriorly. [facility] Other XR knee LT 4V* XR/XR knee LT 4V* [facility] Other XR knee LT 4V* IMPRESSION: [employer] Other XR knee LT 4V* Tricompartmental degenerative changes are noted in the left knee with a small joint effusion. [facility] Other XR knee LT 4V* There is chondrocalcinosis of the menisci suggesting underlying CPPD. [facility] Other XR knee LT 4V* Impression dictated by: Darren Yuen M.D.11/09/2022 5:03 PM [facility] Other XR knee LT 4V* Dictation Location: [place] [address] [facility] Other XR knee LT 4V* Transcribed By: COLIN 11/09/22 1703 [facility] Other XR knee LT 4V* Dictated By: Darren Yuen II, MD 11/09/221700 [place] [employer] Other XR knee LT 4V* Signed By: [place] [employer] Other XR knee LT 4V* 11/09/221702 [place] [employer] Other XR pelvis 1-2Von 11-09-2022 XR pelvis 1-2V [facility] Main [place] [address] [place] [address] XRay Report Signed Patient: Ruperto Thorpe MR#: [id number] 5 : 1940 Acct:[id number] Age/Sex: 82 / M ADM Date: 11/09/22 Loc: [facility] Room: Type: [facility] Attending Dr: Jose Enrique Leblanc II, MD [...] Darren Yuen M.D.11/09/2022 5:01 PM Dictation Location: [place] [address] Transcribed By: [facility] 11/09/221700 Dictated By: Darren Yuen II, MD 11/09/221699 Signed By: 11/09/221700 [facility] XR pelvis 1-2V XR/XR pelvis 1-2V: Acute pain of left knee [employer] Other XR pelvis 1-2V XR pelvis 1-2V 11/09/2022 3:15 PM [facility] Other XR pelvis 1-2V SIGNS AND SYMPTOMS: Left knee pain [facility] Other XR pelvis 1-2V PROTOCOL: Frontal radiograph of the chest [facility] Other XR pelvis 1-2V COMPARISON: None [place] [employer] Other XR pelvis 1-2V There is mild narrowing of the left hip joint space with subcortical cystic change on both sides of [facility] Other XR pelvis 1-2V the joint along the acetabular there is chondrocalcinosis of the labrum overlying the superior [facility] Other XR pelvis 1-2V acetabular rim and superior lateral femoral head. The bony ring of the pelvis is intact. There is [facility] Other XR pelvis 1-2V total right hip arthroplasty. Degenerative changes are noted in the sacroiliac joints. No fracture [facility] Other XR pelvis 1-2V is [employer] Other XR pelvis 1-2V XR/XR pelvis 1-2V [facility] Other XR pelvis 1-2V Degenerative changes are noted in the left hip with findings suspicious for previous labral [facility] Other XR pelvis 1-2V pathology. [employer] Other XR pelvis 1-2V Postoperative change s are noted in the right hip with total right hip arthroplasty hardware. [facility] Other XR pelvis 1-2V Impression dictated by: Darren Yuen M.D.11/09/2022 5:01 PM [facility] Other XR pelvis 1-2V Transcribed By: COLIN 11/09/22 1701 [facility] Other XR pelvis 1-2V Dictated By: Darren Yuen II, MD 11/09/221699 [facility] Other XR pelvis 1-2V 11/09/221700 [employer] Other XR KNEE LT 4V or >on [...] There is chondrocalcinosis. Soft tissues: Unremarkable. IMPRESSION: Sthf-vt-rwqxgcvd osteoarthritis as described above. Chondrocalcinosis. No acute fracture or dislocation. Electronically authenticated by: CHUCK JONES Date: 2022-11-05 11:19 Normal [facility] US CAROTID ART BILon 023 US [...] JONAS MCLEOD Date: 2022-09-26 10:58 Normal [facility] CBC AUTO DIFFon 08-10-2022 BASO # 0.0 103/ul Normal 0.0-0.1 [facility] Comment on above: Performed By: #### C BC #### [facility] [address] [place] [address] Dr. Alexis Brink Basophils/100 WBC (Bld) 0.7 % Normal 0.2-2.0 [facility] Comment on above: Performed By: #### C BC #### [facility] [address] [place] [address] Dr. Alexis Brink EO # 0.3 103/ul Normal 0.0-0.7 [facility] Comment on above: Performed By: #### C BC #### [facility] [address] [place] [address] Dr. Alexis Brink Eosinophils/100 WBC (Bld) 6.1 % Normal 0.9-7.0 [facility] Comment on above: Performed By: #### C BC #### [facility] [address] [place] [address] Dr. Alexis Brink Erythrocyte distribution width (RBC) [Ratio] 12.1 % Normal 11.0-15.0 [facility] Comment on above: Performed By: #### C BC #### [facility] [address] [place] [address] Dr. Alexis Brink Hematocrit (Bld) [Volume fraction] 44.2 % Normal 42.0-54.0 [facility] Comment on above: Performed By: #### C BC #### [facility] [address] [place] [address] Dr. Alexis Brink Hemoglobin (Bld) [Mass/Vol] 14.9 g/dL Normal 14.0-18.0 [facility] Comment on above: Performed By: #### C BC #### [facility] [address] [place] [address] Dr. Alexis Brink IG # 0.01 10e3/ul Normal 0.00-0.03 [facility] Comment on above: Performed By: #### C BC #### [facility] [address] [place] [address] Dr. Alexis Brink IG % 0.2 % Normal 0.0-0.5 [facility] Comment on above: Performed By: #### C BC #### [facility] [address] [place] [address] Dr. Alexis Brink LYMPH # 1.2 103/ul Normal 1.2-3.8 [facility] Comment on above: Performed By: #### C BC #### [facility] [address] [place] [address] Dr. Alexis Brink Lymphocytes/100 WBC (Bld) 21.3 % Normal 20.5-60.0 [facility] Comment on above: Performed By: #### C BC #### [facility] [address] [place] [address] Dr. Alexis Brink MANUAL DIFF REQ NO Normal [facility] Comment on above: Performed By: #### C BC #### [facility] [address] [place] [address] Dr. Alexis Brink MCH (RBC) [Entitic mass] 30.7 pg Normal 25.9-34.0 [facility] Comment on above: Performed By: #### C BC #### [facility] [address] [place] [address] Dr. Alexis Brink MCHC (RBC) [Mass/Vol] 33.7 g/dL Normal 29.9-35.2 [facility] Comment on above: Performed By: #### C BC #### [facility] [address] [place] [address] Dr. Alexis Brink MCV (RBC) [Entitic vol] 91.1 fL Normal 80.0-94.0 [facility] Comment on above: Performed By: #### C BC #### [facility] [address] [place] [address] Dr. Alexis Brink MONO # 0.5 103/ul Normal 0.3-0.8 [facility] Comment on above: Performed By: #### C BC #### [facility] [address] [place] [address] Dr. Alexis Brink Monocytes/100 WBC (Bld) 8.5 % Normal 1.7-12.0 [facility] Comment on above: Performed By: #### C BC #### [facility] [address] [place] [address] Dr. Alexis Brink NEUT # 3.5 103/ul Normal 1.4-6.5 [facility] Comment on above: Performed By: #### C BC #### [facility] [address] [place] [address] Dr. Alexis Brink Neutrophils/100 WBC (Bld) 63.2 % Normal 43.0-75.0 [facility] Comment on above: Performed By: #### C BC #### [facility] [address] [place] [address] Dr. Alexis Brink Platelet mean volume (Bld) [Entitic vol] 10.0 fL Normal 9.5-13.5 [facility] Comment on above: Performed By: #### C BC #### [facility] [address] [place] [address] Dr. Alexis Brink PLT 120 103/ul Critically low 150-450 [facility] Comment on above: Performed By: #### C BC #### [facility] [address] [place] [address] Dr. Alexis Brink RBC 4.85 106/ul Normal 4.70-6.10 [facility] Comment on above: Performed By: #### C BC #### [facility] [address] [place] [address] Dr. Alexis Brink WBC 5.6 103/ul Normal 4.0-11.0 [facility] Comment on above: Performed By: #### C BC #### [facility] [address] [place] [address] Dr. Alexis Brink [facility] SARS-CoV-2 (COVID-19) RNA RICKY+probe Ql (Unsp spec) Not detected Normal NOT DETECTED [facility] Comment on above: Result Comment: This test is not yet approved or cleared by the [place] FDA. When there are no FDA-approved or cleared tests available, and other criteria are met, FDA can make tests available under an emergency access mechanism called an Emergency Use Authorization (EUA). The EUA for this test is supported by the [place] of Health and Human Service's (HHS's) declaration [...] with SARS-CoV-2. Performed By: #### C VDTBH ####[facility] [address] [place], [place] [address]Dr. lilliana [facility] INFLUENZA A AND B AGon 08-10 [facility] SEE BELOW Normal [facility] Comment on above: Result Comment: Nega tive for Flu A protein angiten. Infection due to Flu A cannot be ruled out. Flu A angiten in the sample may be below the detection limit of the test. Performed By: #### I NFLUAB ####[facility] [address] [place], [place] [address]Dr. lilliana [facility] INFLUBNEGH SEE BELOW Normal [facility] Comment on above: Result Comment: Nega tive for Flu B protein antigen. Infection due to Flu B cannot be ruled out. Flu B antigen in the sample may be below the detection limit of the test. Performed By: #### I NFLUAB ####[facility] [address] [place], [place] [address]Dr. [facility] INFLUENZA A AG Negative Normal NEGATIVE SEE COMMENT [facility] Comment on above: Performed By: #### I NFLUAB ####[facility] [address] [place], [place] [address]Dr. [facility] INFLUENZA B AG Negative Normal NEGATIVE SEE COMMENT [facility] Comment on above: Performed By: #### I NFLUAB ####[facility] [address] [place], [place] [address]Dr. [facility] INTERNAL CONTROLS Within Normal Limits Normal Wi thin Normal Limits [facility] Comment on above: Performed By: #### I NFLUAB ####[facility] [address] [place] [address]Dr. Alexis Brink PROF CHEM 8 (BAS METB)on Anion gap [Moles/Vol] 11.4 mmol/L Normal [facility] Comment on above: Performed By: #### B MP, HSTROPN #### [facility] [address] [place] [address] [address] Alexis Brink Calcium [Mass/Vol] 8.9 mg/dL Normal 8.5-10.1 [facility] Comment on above: Performed By: #### B MP, HSTROPN #### [facility] [address] [place] [address] [address] Alexis Brink Chloride [Moles/Vol] 102 mmol/L Normal 98-107 [facility] Comment on above: Performed By: #### B NARA, HSTROPN #### [facility] [address] [place] [address] Dr. Alexis Brink CO2 [Moles/Vol] 28.8 mmol/L Normal 21.0-32.0 [facility] Comment on above: Performed By: #### B NARA, HSTROPN #### [facility] [address] [address] [address] Alexis Brink Creatinine [Mass/Vol] 1.35 mg/dL Critically high 0.70-1.30 [facility] Comment on above: Performed By: #### B NARA, HSTROPN #### [facility] [address] [address] [address] Alexis Brink EGFR-AF WALLISIAN >60 Normal >=60 [facility] Comment on above: Performed By: #### B MP, HSTROPN #### [facility] [address] [place] [address] Dr. Alexis Brink EGFR-NON AF WALLISIAN 51 mL/min/1.73m2 Critically low >=60 [facility] Comment on above: Performed By: #### B MP, HSTROPN #### [facility] [address] [place] [address] Dr. Alexis Brink Glucose [Mass/Vol] 109 mg/dL Critically high 74-106 T [facility] Comment on above: Performed By: #### B NARA, HSTROPN #### [facility] [address] [address] [address] Alexis Brink Potassium [Moles/Vol] 4.2 mmol/L Normal 3.5-5.1 [facility] Comment on above: Performed By: #### B NAAR, HSTROPN #### [facility] [address] [address] [address] Alexis Brink Sodium [Moles/Vol] 138 mmol/L Normal 136-145 [facility] Comment on above: Performed By: #### B NARA, HSTROPN #### [facility] [address] [place] [address] Dr. Alexis Brink Urea nitrogen [Mass/Vol] 18.0 mg/dL Normal 7.0-18.0 [facility] Comment on above: Performed By: #### B NARA, HSTROPN #### [facility] [address] [place] [address] Dr. Alexis Brink Urea nitrogen/Creatinin e [Mass ratio] 13.3 mg/mg Normal [facility] Comment on above: Performed By: #### B NARA, HSTROPN #### [facility] [address] [place] [address] Dr. Alexis Brink TROPONIN, HIGH SENSITIVITYon 08-10-2022 HSTROP 22.2 pg/mL Normal 4.0-76.1 [facility] Comment on above: Result Comment: CUT- OFF POINTS HAVE BEEN ESTABLISHED BASED ON THE FOURTH UNIVERSAL DEFINITIONS OF MYOCARDIAL INFARCTION. THE UPPER REFERENCE LIMIT (URL) OF TROPONIN, DEFINED THE 99TH PERCENTILE OF cTnI DISTRIBUTION IN A REFERENCE POPULATION, HAS BEEN CONFIRMED THE DECISION THRESHOLD FOR ID DIAGNOSIS. Performed By: #### B NARA, HSTROPN #### [facility] [address] [place] [address] Dr. Alexis Brink XR CHEST 1 Von [...] RADHA UNDERWOOD Date: 2022-08-10 16:07 Normal [facility] CBC AUTO DIFFon 02-09-2022 BASO # 0.0 103/ul Normal 0.0-0.1 [facility] Comment on above: Performed By: #### C BC #### [facility] [address] [place] [address] Dr. Alexis Brink Basophils/100 WBC (Bld) 0.6 % Normal 0.2-2.0 [facility] Comment on above: Performed By: #### C BC #### [facility] [address] [place] [address] Dr. Alexis Brink EO # 0.5 103/ul Normal 0.0-0.7 [facility] Comment on above: Performed By: #### C BC #### [facility] [address] [place] [address] Dr. Alexis Brink Eosinophils/100 WBC (Bld) 7.2 % Critically high 0.9-7.0 [facility] Comment on above: Performed By: #### C BC #### [facility] [address] [place] [address] Dr. Alexis Brink Erythrocyte distribution width (RBC) [Ratio] 12.4 % Normal 11.0-15.0 [facility] Comment on above: Performed By: #### C BC #### [facility] [address] [place] [address] Dr. Alexis Brink Hematocrit (Bld) [Volume fraction] 45.5 % Normal 42.0-54.0 [facility] Comment on above: Performed By: #### C BC #### [facility] [address] [place] [address] Dr. Alexis Brink Hemoglobin (Bld) [Mass/Vol] 15.4 g/dL Normal 14.0-18.0 [facility] Comment on above: Performed By: #### C BC #### [facility] [address] [place] [address] Dr. Alexis Brink IG # 0.02 10e3/ul Normal 0.00-0.03 [facility] Comment on above: Performed By: #### C BC #### [facility] [address] [place] [address] Dr. Alexis Brink IG % 0.3 % Normal 0.0-0.5 [facility] Comment on above: Performed By: #### C BC #### [facility] [address] [place] [address] Dr. Alexis Brink LYMPH # 1.3 103/ul Normal 1.2-3.8 [facility] Comment on above: Performed By: #### C BC #### [facility] [address] [place] [address] Dr. Alexis Brink Lymphocytes/100 WBC (Bld) 17.8 % Critically low 20.5-60.0 [facility] Comment on above: Performed By: #### C BC #### [facility] [address] [place] [address] Dr. Alexis Brink MANUAL DIFF REQ NO Normal [facility] Comment on above: Performed By: #### C BC #### [facility] [address] [place] [address] Dr. Alexis Brink MCH (RBC) [Entitic mass] 31.4 pg Normal 25.9-34.0 [facility] Comment on above: Performed By: #### C BC #### [facility] [address] [place] [address] Dr. Alexis Brink MCHC (RBC) [Mass/Vol] 33.8 g/dL Normal 29.9-35.2 [facility] Comment on above: Performed By: #### C BC #### [facility] [address] [place] [address] Dr. Alexis Brink MCV (RBC) [Entitic vol] 92.9 fL Normal 80.0-94.0 [facility] Comment on above: Performed By: #### C BC #### [facility] [address] [place] [address] Dr. Alexis Brink MONO # 0.7 103/ul Normal 0.3-0.8 [facility] Comment on above: Performed By: #### C BC #### [facility] [address] [place] [address] Dr. Alexis Brink Monocytes/100 WBC (Bld) 9.6 % Normal 1.7-12.0 [facility] Comment on above: Performed By: #### C BC #### [facility] [address] [place] [address] Dr. Alexis Brink NEUT # 4.6 103/ul Normal 1.4-6.5 [facility] Comment on above: Performed By: #### C BC #### [facility] [address] [place] [address] Dr. Alexis Brink Neutrophils/100 WBC (Bld) 64.5 % Normal 43.0-75.0 [facility] Comment on above: Performed By: #### C BC #### [facility] [address] [place] [address] Dr. Alexis Brink Platelet mean volume (Bld) [Entitic vol] 10.7 fL Normal 9.5-13.5 [facility] Comment on above: Performed By: #### C BC #### [facility] [address] [place] [address] Dr. Alexis Brink PLT 130 103/ul Critically low 150-450 [facility] Comment on above: Performed By: #### C BC #### [facility] [address] [place] [address] Dr. Alexis Brink RBC 4.90 106/ul Normal 4.70-6.10 [facility] Comment on above: Performed By: #### C BC #### [facility] [address] [place] [address] Dr. Alexis Brink WBC 7.1 103/ul Normal 4.0-11.0 [facility] Comment on above: Performed By: #### C BC #### [facility] [address] [address] [address] Alexis Brink DIRECT LDLon 02-09-2022 Cholesterol in LDL [Mass/Vol] 144 mg/dL Normal [facility] Comment on above: Performed By: #### D LDL, BMP ####[facility] [id number] [place], [place] [address]ScDr. Alexis Brink DLDL NORMAL SEE BELOW Normal [facility] Comment on above: Result Comment: <100 mg/dl OPTIMAL 100 - 129 mg/dl NEAR OR ABOVE OPTIMAL 130 - 159 mg/dl BORDERLINE HIGH 160 - 189 mg/dl HIGH >190 mg/dl VERY HIGH Performed By: #### D LDL, BMP ####[facility] [id number] [id number] Alexis Brink PROF CHEM 8 (BAS METB)on Anion gap [Moles/Vol] 9.3 mmol/L Normal [facility] Comment on above: Performed By: #### D LDL, BMP #### [facility] [address] [address] [address] Alexis Brink Calcium [Mass/Vol] 8.7 mg/dL Normal 8.5-10.1 [facility] Comment on above: Performed By: #### D LDL, BMP #### [facility] [address] [address] [address] Alexis Brink Chloride [Moles/Vol] 103 mmol/L Normal 98-107 [facility] Comment on above: Performed By: #### D LDL, BMP #### [facility] [address] [address] [address] Alexis Brink CO2 [Moles/Vol] 32.1 mmol/L Critically high 21.0-32.0 [facility] Comment on above: Performed By: #### D LDL, BMP #### [facility] [address] [address] [address] Alexis Brink Creatinine [Mass/Vol] 1.35 mg/dL Critically high 0.70-1.30 [facility] Comment on above: Performed By: #### D LDL, BMP #### [facility] [address] [address] [address] Alexis Brink EGFR-AF WALLISIAN >60 Normal >=60 [facility] Comment on above: Performed By: #### D LDL, BMP #### [facility] [address] [address] [address] Alexis Brink EGFR-NON AF WALLISIAN 51 mL/min/1.73m2 Critically low >=60 [facility] Comment on above: Performed By: #### D LDL, BMP #### [facility] [address] [address] [address] Alexis Brink Glucose [Mass/Vol] 90 mg/dL Normal 74-106 [facility] Comment on above: Performed By: #### D LDL, BMP #### [facility] [address] [address] [address] Alexis Brink Potassium [Moles/Vol] 4.4 mmol/L Normal 3.5-5.1 [facility] Comment on above: Performed By: #### D LDL, BMP #### [facility] [address] [address] [address] Alexis Brink Sodium [Moles/Vol] 140 mmol/L Normal 136-145 [facility] Comment on above: Performed By: #### D LDL, BMP #### [facility] [address] [place] [address] Dr. Alexis Brink Urea nitrogen [Mass/Vol] 16.0 mg/dL Normal 7.0-18.0 [facility] Comment on above: Performed By: #### D LDL, BMP #### [facility] [address] [address] [address] Alexis Brink Urea nitrogen/Creatinin e [Mass ratio] 11.9 mg/mg Normal [facility] Comment on above: Performed By: #### D LDL, BMP #### [facility] [address] [address] [address] Alexis Brink UA RANDOMon 02-09-2022 Bilirubin Ql (U) Negative Normal NEGATIVE [facility] Comment on above: Performed By: #### U A #### [facility] [address] [place] [address] Dr. Alexis Brink Clarity (U) CLEAR Normal CLEAR [facility] Comment on above: Performed By: #### U A #### [facility] [address] [place] [address] Dr. Alexis Brink Color (U) YELLOW Normal YELLOW [facility] Comment on above: Performed By: #### U A #### [facility] [address] [place] [address] Dr. Alexis Brink Glucose Ql (U) Negative Normal NEGATIVE [facility] Comment on above: Performed By: #### U A #### [facility] [address] [place] [address] Dr. Alexis Brink Hemoglobin Ql (U) Negative Normal NEGATIVE [facility] Comment on above: Performed By: #### U A #### [facility] [address] [place] [address] Dr. Alexis Brink Ketones Ql (U) Negative Normal NEGATIVE [facility] Comment on above: Performed By: #### U A #### [facility] [address] [place] [address] Dr. Alexis Brink LEUKOCYTES Negative Normal NEGATIVE [facility] Comment on above: Performed By: #### U A #### [facility] [address] [place] [address] Dr. Alexis Brink Nitrite Ql (U) Negative Normal NEGATIVE [facility] Comment on above: Performed By: #### U A #### [facility] [address] [place] [address] Dr. Alexis Brink pH (U) 7.0 [pH] Normal 5-9 [facility] Comment on above: Performed By: #### U A #### [facility] [address] [place] [address] Dr. Alexis Brink SPEC GRAVITY 1.015 Normal 1.005-<=1.[address] [facility] Comment on above: Performed By: #### U A #### [facility] [address] [place] [address] Dr. Alexis Brink UA PROTEIN Negative Normal NEGATIVE/ TRACE [facility] Comment on above: Performed By: #### U A #### [facility] [address] [place], [place] [address] Dr. Alexis Brink Urobilinogen Qn (U) 1.0 {Kay'U}/dL Normal 0.2 - 1.0 [facility] Comment on above: Performed By: #### U A #### [facility] [address] [place], [place] [address] Dr. Alexis Brink XR CHEST 2 Von [...] by: LYDIA HAWLEY Date: 2021-12-06 15:42 Normal [facility] Nonvisit Note - PTon 018 Nonvisit Note - PT Cert letter refaxed for signature this date - third and final attempt. Normal [facility] Nonvisit Note - PTon 018 Nonvisit Note - PT Cert letter refaxed to Dr Gooden's office. Second attempt. Normal [facility] Coding Summary.on 01-25-2018 Coding Summary. CODING DATE: 01/25/2018 FINAL [facility] STATUS: PAYOR: Medicare ADMIT DX: REASON [...] result in slightly different terminology. Coded By: Doimnique Pendleton Date Saved: 01/25/2018 10:54 am Normal [facility] Coding Summary. CODING DATE: 01/25/2018 FINAL [facility] STATUS: PAYOR: Medicare ADMIT DX: REASON [...] Pendleton Date Saved: 01/25/2018 10:54 am Normal [facility] SURGICAL PATHOLOGYon 05-15-2 018 [facility]GICAL [facility]OLOGY [facility]: [id number] Physician: BETH GOODEN MD FINAL DIAGNOSISRight hip, [...] to 8.5 x 8.5 x 1.8 cm. Trestle Mechanic sectionsare submitted as follows: A1 soft tissue, A2 bone submitted afterdecalcification.B F/billz 01/01/2018 Gross examination performed at [facility], [address] [place] [id number] of Report: 01/07/2018Date of Procedure: 01/01/2018Date of Receipt: 01/01/2018Submitted by: BETH GOODEN MDLocation: [id number] interpretation performed at [facility], [address] [place] [id number]. Normal [facility] Comment on above: Performed By: #### S ####See report for performing lab information. Vital Signs Date Time Vital Sign Value Performing Clinician Facility 05-28-2024 08:30-0400 Body height 167.64 cm [facility] 05-28-2024 08:30-0400 Body mass index (BMI) [Ratio] 27.1 kg/m2 [facility] 05-28-2024 08:30-0400 Body weight 76.31 kg [facility] 05-28-2024 08:30-0400 Diastolic blood pressure 89 mm[Hg] [facility] 05-28-2024 08:30-0400 Heart rate 61 /min [facility] 05-28-2024 08:30-0400 Respiratory rate 12 /min [facility] 05-28-2024 08:30-0400 Systolic blood pressure 139 mm[Hg] [facility] 01-22-2024 09:16-0400 Body height 167.64 cm [facility] 01-22-2024 09:16-0400 Body mass index (BMI) [Ratio] 29.3 kg/m2 [facility] 01-22-2024 09:16-0400 Body weight 82.55 kg [facility] 01-22-2024 09:16-0400 Diastolic blood pressure 72 mm[Hg] [facility] 01-22-2024 09:16-0400 Heart rate 64 /min [facility] 01-22-2024 09:16-0400 Respiratory rate 20 /min [facility] 01-22-2024 09:16-0400 Systolic blood pressure 131 mm[Hg] [facility] 09-28-2023 11:00-0500 Body height 167.64 cm Cecilio Ball Other [facility] Other 09-28-2023 11:00-0500 Body mass index (BMI) [Ratio] 30.24 kg/m2 Cecilio Ball Other [facility] Other 09-28-2023 11:00-0500 Body weight 85 kg Cecilio Ball Other [facility] Other 09-28-2023 11:00-0500 Respiratory rate 20 /min Cceilio Ball Other [facility] Other 09-28-2023 11:00-0500 SaO2% (BldA) [Mass fraction] 97 % Cecilio Ball Other [facility] Other 09-11-2023 10:45-0500 Body height 167.64 cm Cecilio Ball Other [facility] Other 09-11-2023 10:45-0500 Body mass index (BMI) [Ratio] 29.86 kg/m2 Cecilio Ball Other [facility] Other 09-11-2023 10:45-0500 Body temperature 97.5 [degF] Cecilio Ball Other [facility] Other 09-11-2023 10:45-0500 Body weight 83.92 kg Cecilio Ball Other [facility] Other 09-11-2023 10:45-0500 Diastolic blood pressure 81 mm[Hg] Cecilio Ball Other [facility] Other 09-11-2023 10:45-0500 Respiratory rate 20 /min Cecilio Ball Other [facility] Other 09-11-2023 10:45-0500 SaO2% (BldA) [Mass fraction] 98 % Cecilio Ball Other [facility] Other 09-11-2023 10:45-0500 Systolic blood pressure 161 mm[Hg] Cecilio Ball Other [facility] Other 08-01-2023 10:15-0500 Body height 167.64 cm Cecilio Ball Other [facility] Other 08-01-2023 10:15-0500 Body mass index (BMI) [Ratio] 29.86 kg/m2 Cecilio Ball Other [facility] Other 08-01-2023 10:15-0500 Body weight 83.92 kg Cecilio Ball Other [facility] Other 08-01-2023 10:15-0500 Diastolic blood pressure 79 mm[Hg] Cecilio Ball Other [facility] Other 08-01-2023 10:15-0500 Respiratory rate 20 /min Cecilio Ball Other [facility] Other 08-01-2023 10:15-0500 Systolic blood pressure 172 mm[Hg] Cecilio Ball Other [facility] Other 07-17-2023 10:15-0500 Body height 167.64 cm Cecilio Ball Other [facility] Other 07-17-2023 10:15-0500 Body mass index (BMI) [Ratio] 29.89 kg/m2 Cecilio Ball Other [facility] Other 07-17-2023 10:15-0500 Body weight 84.01 kg Cecilio Ball Other [facility] Other 07-17-2023 10:15-0500 Diastolic blood pressure 78 mm[Hg] Cecilio Ball Other [facility] Other 07-17-2023 10:15-0500 Respiratory rate 20 /min Cecilio Ball Other [facility] Other 07-17-2023 10:15-0500 Systolic blood pressure 172 mm[Hg] Cecilio Ball Other [facility] Other 07-10-2023 14:45-0500 Body height 167.64 cm Cecilio Ball Other [facility] Other 07-10-2023 14:45-0500 Body mass index (BMI) [Ratio] 29.47 kg/m2 Cecilio Ball Other [facility] Other 07-10-2023 14:45-0500 Body weight 82.83 kg Cecilio Ball Other [facility] Other 07-10-2023 14:45-0500 Diastolic blood pressure 80 mm[Hg] Cecilio Ball Other [facility] Other 07-10-2023 14:45-0500 Respiratory rate 20 /min Cecilio Ball Other [facility] Other 07-10-2023 14:45-0500 Systolic blood pressure 150 mm[Hg] Cecilio Ball Other [facility] Other 06-20-2023 08:30-0400 Body height 167.64 cm Cecilio Ball Other [facility] Other 06-20-2023 08:30-0400 Body mass index (BMI) [Ratio] 29.6 kg/m2 Cecilio Ball Other [facility] Other 06-20-2023 08:30-0400 Body weight 83.19 kg Cecilio Ball Other [facility] Other 06-20-2023 08:30-0400 Diastolic blood pressure 76 mm[Hg] Cecilio Ball Other [facility] Other 06-20-2023 08:30-0400 Respiratory rate 20 /min Cecilio Ball Other [facility] Other 06-20-2023 08:30-0400 Systolic blood pressure 157 mm[Hg] Cecilio Ball Other [facility] Other 05-30-2023 13:45-0400 Body height 167.64 cm Cecilio Ball Other [facility] Other 05-30-2023 13:45-0400 Body mass index (BMI) [Ratio] 28.95 kg/m2 Cecilio Ball Other [facility] Other 05-30-2023 13:45-0400 Body weight 81.38 kg Cecilio Ball Other [facility] Other 05-30-2023 13:45-0400 Diastolic blood pressure 78 mm[Hg] Cecilio Ball Other [facility] Other 05-30-2023 13:45-0400 Respiratory rate 16 /min Cecilio Ball Other [facility] Other 05-30-2023 13:45-0400 Systolic blood pressure 158 mm[Hg] Cecilio Ball Other [facility] Other 02-14-2023 08:30-0400 Body height 167.64 cm Cecilio Ball Other [facility] Other 02-14-2023 08:30-0400 Body mass index (BMI) [Ratio] 28.57 kg/m2 Cecilio Ball Other [facility] Other 02-14-2023 08:30-0400 Body weight 80.29 kg Cecilio Ball Other [facility] Other 02-14-2023 08:30-0400 Diastolic blood pressure 80 mm[Hg] Cecilio Ball Other [facility] Other 02-14-2023 08:30-0400 Respiratory rate 16 /min Cecilio Ball Other [facility] Other 02-14-2023 08:30-0400 Systolic blood pressure 135 mm[Hg] Cecilio Ball Other [facility] Other 02-01-2023 08:15-0400 Body height 167.64 cm Jose Enrique Benji II Other [facility] Other 02-01-2023 08:15-0400 Body mass index (BMI) [Ratio] 27.44 kg/m2 Jose Enrique Adams II Other [facility] Other 02-01-2023 08:15-0400 Body weight 77.11 kg Jose Enrique Benji II Other [facility] Other 12-11-2022 10:30-0400 Body height 167.64 cm Cecilio Ball Other [facility] Other 12-11-2022 10:30-0400 Body mass index (BMI) [Ratio] 28.66 kg/m2 Cecilio Ball Other [facility] Other 12-11-2022 10:30-0400 Body weight 80.56 kg Cecilio Ball Other [facility] Other 12-11-2022 10:30-0400 Diastolic blood pressure 76 mm[Hg] Cecilio Ball Other [facility] Other 12-11-2022 10:30-0400 Respiratory rate 12 /min Cecilio Ball Other [facility] Other 12-11-2022 10:30-0400 Systolic blood pressure 151 mm[Hg] Cecilio Ball Other [facility] Other 11-09-2022 16:00-0400 Body mass index (BMI) [Ratio] 29.21 kg/m2 Jose Enrique Guerrerole II Other [facility] Other 11-09-2022 16:00-0400 Body weight 82.1 kg Jose Enrique Landersisle II Other [facility] Other 11-09-2022 10:30-0400 Body height 167.64 cm Cecilio Ball Other [facility] Other 11-09-2022 10:30-0400 Body mass index (BMI) [Ratio] 29.23 kg/m2 Cecilio Ball Other [facility] Other 11-09-2022 10:30-0400 Body weight 82.15 kg Cecilio Ball Other [facility] Other 11-09-2022 10:30-0400 Diastolic blood pressure 79 mm[Hg] Cecilio Ball Other [facility] Other 11-09-2022 10:30-0400 Respiratory rate 20 /min Cecilio Ball Other [facility] Other 11-09-2022 10:30-0400 Systolic blood pressure 152 mm[Hg] Cecilio Ball Other [facility] Other 10-12-2022 10:00-0500 Body height 167.64 cm Cecilio Ball Other [facility] Other 10-12-2022 10:00-0500 Body mass index (BMI) [Ratio] 29.24 kg/m2 Cecilio Ball Other [facility] Other 10-12-2022 10:00-0500 Body weight 82.19 kg Cecilio Ball Other [facility] Other 10-12-2022 10:00-0500 Diastolic blood pressure 70 mm[Hg] Cecilio Ball Other [facility] Other 10-12-2022 10:00-0500 Respiratory rate 12 /min Cecilio Ball Other [facility] Other 10-12-2022 10:00-0500 Systolic blood pressure 102 mm[Hg] Cecilio Ball Other [facility] Other Encounters Encounter Date Encounter Type Care Provider Facility Start: 05-28-2024 End: 05-28-2024 ambulatory [facility] Work Phone: Start: 05-28-2024 End: 05-28-2024 Patient encounter procedure [facility] Work Phone: Start: 05-26-2024 End: 05-26-2024 ambulatory Maddie Villalobos MD Facility: [facility] Start: 04-07-2024 End: 04-07-2024 ambulatory Andbeto Villalobos MD Facility: [place] Start: 03-31-2024 End: 03-31-2024 ambulatory Andbeto Salteritis Facility: [facility] Start: 03-24-2024 End: 03-24-2024 ambulatory Andbeto Salteritis Facility: [place] Start: 03-10-2024 End: 03-10-2024 ambulatory Andrius Wai Salteritis Facility: [facility] Start: 02-25-2024 End: 02-25-2024 ambulatory Andbeto Salteritis Facility: [facility] Start: 02-11-2024 End: 02-11-2024 ambulatory Maddie Villalobos MD Facility: [facility] Start: 01-28-2024 End: 01-28-2024 ambulatory Maddie Villalobos MD Facility: [facility] Start: 01-22-2024 End: 01-22-2024 ambulatory [facility] Work Phone: Start: 01-22-2024 End: 01-22-2024 Patient encounter procedure [facility] Work Phone: Start: 10-30-2023 Non-patient / Non-visit [facility] Work Phone: Start: 09-28-2023 End: 09-28-2023 ambulatory Cecilio Benjamin Other [facility] Other Start: 09-28-2023 Office outpatient vi sit 15 minutes Cecilio Benjamin [facility] Start: 09-28-2023 Telephone encounter Cecilio Benjamin FP [facility] Start: 09-21-2023 End: 09-21-2023 ambulatory Cecilio Benjamin Other [facility] Other Start: 09-21-2023 Telephone encounter Cecilio Ball [facility] Start: 09-11-2023 End: 09-11-2023 ambulatory Cecilio Ball Other [facility] Other Start: 09-11-2023 Office outpatient vi sit 15 minutes Cecilio Ball [facility] Start: 09-11-2023 Telephone encounter Cecilio Ball [facility] Start: 09-03-2023 End: 09-03-2023 ambulatory Cecilio Ball Other [facility] Other Start: 09-03-2023 Telephone encounter Cecilio Ball [facility] Start: 08-03-2023 End: 08-03-2023 ambulatory Cecilio Ball Other [facility] Other Start: 08-03-2023 Telephone encounter Cecilio Ball [facility] Start: 08-01-2023 End: 08-01-2023 ambulatory Cecilio Ball Other [facility] Other Start: 08-01-2023 Office outpatient vi sit 15 minutes Cecilio Ball [facility] Start: 07-17-2023 End: 07-17-2023 ambulatory Cecilio Ball Other [facility] Other Start: 07-17-2023 Office outpatient vi sit 15 minutes Cecilio Ball [facility] Start: 07-10-2023 End: 07-10-2023 ambulatory Cecilio Ball Other [facility] Other Start: 07-10-2023 Office outpatient vi sit 15 minutes Cecilio Ball [facility] Start: 06-20-2023 End: 06-20-2023 ambulatory Cecilio Ball Other [facility] Other Start: 06-20-2023 Office outpatient vi sit 25 minutes Cecilio Ball [facility] Start: 06-15-2023 End: 06-15-2023 ambulatory Cecilio Ball Other [facility] Other Start: 06-15-2023 Telephone encounter Cecilio DENISE [facility] Start: 05-30-2023 End: 05-30-2023 ambulatory Cecilio Benjamin Other [facility] Other Start: 05-30-2023 Office outpatient vi sit 15 minutes Cecilio Benjamin [facility] Start: 03-20-2023 Telephone encounter David Jaeger DO Work Phone: [facility] Comment on above: Follow Up Phone Call Start: 03-15-2023 End: 03-15-2023 ambulatory DAVID JAEGER Facility:[facility] Start: 02-27-2023 Orders Only David Marcos DO Work Phone: Procedures Comment on above: Pseudoclaudication s yndrome (Primary Dx); Lumbar radiculopathy Start: 02-26-2023 Telephone encounter David Jaeger DO Work Phone: [facility] Comment on above: Procedure Start: 02-19-2023 Telephone encounter David Jaeger DO Work Phone: [facility] Comment on above: Appointment Start: 02-14-2023 End: 02-14-2023 ambulatory Cecilio Benjamin Other [facility] Other Start: 02-14-2023 Patient encounter procedure Cecilio Benjamin [facility] Start: 02-13-2023 End: 02-13-2023 ambulatory Cecilio Benjamin Other [facility] Other Start: 02-13-2023 Telephone encounter Cecilio DENISE [facility] Start: 02-08-2023 End: 02-08-2023 ambulatory Cecilio Benjamin Other [facility] Other Start: 02-08-2023 Telephone encounter Cecilio DENISE [facility] Start: 02-01-2023 End: 02-01-2023 ambulatory Jose Enrique Leblanc II Other [facility] Other Start: 02-01-2023 Office outpatient vi sit 25 minutes Jose Enrique Adams II [facility] Start: 12-11-2022 End: 12-11-2022 ambulatory Cecilio Benjamin Other [facility] Other Start: 12-11-2022 Office outpatient vi sit 15 minutes Cecilio Ball [facility] Start: 11-09-2022 End: 11-09-2022 ambulatory Jose Enrique Leblanc II Facility:[facility] Start: 11-09-2022 End: 11-09-2022 Patient encounter procedure MD Jose Enrique Leblanc II Work Phone: [facility] Start: 11-09-2022 End: 11-09-2022 ambulatory MD JoseE nrique Leblanc II Work Phone: [facility] Work Phone: Start: 11-09-2022 Office outpatient ne w 45 minutes Jose Enrique Adams II [facility] Start: 11-09-2022 Office outpatient vi sit 15 minutes Cecilio Ball [facility] Start: 11-05-2022 End: 11-05-[address] CECILIO BENJAMIN Facility:[facility] Start: 10-12-2022 End: 10-12-2022 ambulatory Cecilio Benjamin Other [facility] Other Start: 10-12-2022 Office outpatient vi sit 25 minutes Cecilio Ball [facility] Start: 09-27-2022 End: 09-27-2022 ambulatory Cecilio Benjamin Other [facility] Other Start: 09-27-2022 Telephone encounter Cecilio DENISE [facility] Start: 09-26-2022 End: 09-27-[address] CECILIO BENJAMIN Facility:[facility] Start: 08-25-2022 End: 08-25-2022 ambulatory Cecilio Benjamin Other [facility] Other Start: 08-25-2022 Telephone encounter Cecilio DENISE [facility] Start: 08-10-2022 End: 08-10-[address] CECILIO BENJAMIN Facility:[facility] Start: 02-09-2022 End: 02-10-[address] CECILIO BENJAMIN Facility:[facility] Start: 12-06-2021 End: 12-07-[address] CECILIO BENJAMIN Facility:[facility] Start: 01-22-2018 End: 04-20-2018 Patient encounter [id number] AUGUSTINE SOURAV Facility:[facility] Procedures Date Procedure Procedure Detail Performing Clinician Start: 11-09-2022 Pelvis X-ray MD Jose Enrique Leblanc II Work Phone: Start: 11-09-2022 Radiologic examinati on of knee MD Jose Enrique Leblanc II Work Phone: Plan of Treatment Date Care Activity Detail Author Start: 01-22-2024 Patient referral [facility] Work Phone: Start: 04-20-2023 Influenza vaccination INFLUENZA (#1) [facility] Start: 10-01-2022 COVID-19 VACCINE (5 - Moderna series) COVID-19 VACCINE (5 - Moderna series) [facility] Start: 08-20-2022 ADVANCE DIRECTIVE DISCUSSION ADVANCE DIRECTIVE DISCUSSION [facility] Start: 08-20-2022 DEPRESSION ASSESSMENT DEPRESSION ASS ESSMENT [facility] Start: 09-19-2021 COVID-19 VACCINE (4 - Booster for Moderna series) COVID-19 VACCINE (4 - Booster for Moderna series) [facility] Start: 09-19-2021 COVID-19 VACCINE (4 - Moderna series) COVID-19 VACCINE (4 - Moderna series) [facility] Start: 01-02-2021 DIABETES SCREEN DIABETES SCREEN [facility] Start: 1991 SHINGRIX VACCINE (1 of 2) SHINGRIX VACCINE (1 of 2) [facility] Start: 1960 Urine microalbumin profile DTAP,TDAP,TD (1 - Tdap) [facility] Start: 1959 SPIROMETRY SPIROMETRY [facility] Start: 1947 PNEUMOCOCCAL: 65+ (1 - PCV) PNEUMOCOCCAL: 65+ (1 - PCV) [facility] Comprehensive metabo lic 2000 panel - Serum or Plasma [facility] Patient referral [facility] Work Phone: SPINE INTERVENTION PROCEDURE SPINE INTERVENTION PROCEDURE Procedures Routine Spinal stenosis, lumbar region with neurogenic claudication Lumbar radiculopathy, chronic Ordered: 02/19/2023 [facility] Work Phone: Comment on above: Ordered: 02/19/2023 [facility] Immunizations Immunization Date Immunization Notes Care Provider Coleman bermudez 05-30-2023 COVID-19 Vaccine Moderna - Documentation Purposes Only Cecilio Benjamin Other [facility] 05-30-2023 influenza virus vaccine, unspecified formulation [facility] 05-30-2023 influenza, high dose seasonal, preservative-free Cecilio Benjamin Other [facility] Other 06-13-2022 influenza virus vaccine, split virus (incl. purified surface antigen) Cecilio Benjamin Other [facility] [employer] Other 06-13-2022 influenza virus vaccine, unspecified formulation [facility] 06-13-2022 influenza, high dose seasonal, preservative-free Jose Enrique Adams II Other [facility] [employer] Other 05-31-2022 COVID-19 Pfizer (bivalent) Jose Enrique Adams II Other [facility] 05-31-2022 COVID-19 Pfizer (Pediatric) Cecilio Benjamin Other [facility] 07-25-2021 COVID-19 Vaccine Moderna - Documentation Purposes Only Jose Enrique Adams II Other [facility] 05-03-2021 zoster vaccine recombinant Jose Enrique Benji II Other [facility] 05-03-2021 zoster vaccine, live Benjchelsea Benjamin Other [facility] 01-28-2021 zoster vaccine recombinant Jose Enrique Adams II Other [facility] 01-28-2021 zoster vaccine, live Osmel Benjamin Other [facility] 10-25-2020 COVID-19 Vaccine Moderna - Documentation Purposes Only Jose Enrique Adams II Other [facility] 09-27-2020 COVID-19 Vaccine Moderna - Documentation Purposes Only Jose Enrique Adams II Other [facility] 05-24-2020 influenza virus vaccine, split virus (incl. purified surface antigen) Cecilio Benjamin Other [facility] [employer] Other 05-24-2020 influenza virus vaccine, unspecified formulation [facility] 01-03-2019 diphtheria, tetanus toxoids and acellular pertussis vaccine, unspecified formulation Cecilio Benjamin Other [facility] 12-25-2018 pneumococcal polysaccharide vaccine, 23 valent Jose Enrique Adams II Other [facility] 04-30-2018 influenza virus vaccine, split virus (incl. purified surface antigen) Cecilio Benjamin Other [facility] [employer] Other 04-30-2018 influenza virus vaccine, unspecified formulation [facility] 04-09-2017 influenza virus vaccine, split virus (incl. purified surface antigen) Cecilio Benjamin Other [facility] Other 04-09-2017 influenza virus vaccine, unspecified formulation [facility] 05-31-2016 zoster vaccine, live Jose Enrique Benji II Other [facility] 05-13-2016 influenza virus vaccine, split virus (incl. purified surface antigen) Cecilio Benjamin Other [employer] Other 05-13-2016 influenza virus vaccine, unspecified formulation [facility] 05-09-2015 influenza virus vaccine, split virus (incl. purified surface antigen) Cecilio Benjamin Other [place] [employer] Other 05-09-2015 influenza virus vaccine, unspecified formulation [facility] 03-06-2015 pneumococcal conjuga te vaccine, 13 valent Jose Enrique Benji II Other [facility] 05-07-2014 tetanus and diphther ia toxoids, adsorbed, preservative free, for adult use (5 Lf of tetanus toxoid and 2 Lf of diphtheria toxoid) Cecilio Benjamin Other [facility] 04-23-2013 tetanus and diphther ia toxoids, adsorbed, preservative free, for adult use (5 Lf of tetanus toxoid and 2 Lf of diphtheria toxoid) Cecilio Benjamin Other [facility] 08-21-2012 pneumococcal polysaccharide vaccine, 23 valent Cecilio Benjamin Other [facility] 12-12-2011 zoster vaccine, live Jose Enrique Adams II Other [facility] Payers Date Payer Category Payer Self-pay 2022 Unknown [id number] 2018 Medicare [id number] 2006 Medicare [id number] 2006 Unknown [id number] 1959 Medicare [id number] 2.1 [id number] 1959 Unknown [id number] 2.16. [id number] 1941 Unknown [id number] 2.16.84 [id number] 1941 Unknown [id number] 2.16.84 [id number] 1941 Unknown [id number] 2.16.84 0.1.131797.3.579.2.593 1941 Unknown [id number] 2.16.84 0.1.396731.3.579.2.593 1941 Unknown [id number] 2.16.84 0.1.692048.3.579.2.593 1941 Unknown [id number] 2.16. 840.1.222868.3.579.2.196 1941 Unknown [id number] 2.16. 840.1.389797.3.579.2.196 1941 Unknown [id number] 2.16. 840.1.054638.3.579.2.196 1941 Unknown [id number] 2.16. [id number] 1941 Unknown [id number] 2.16. 840.1.318305.3.579.2.196 1941 Unknown [id number] 2.16. [id number] 1941 Unknown [id number] 2.16. [id number] 1941 Unknown [id number] 2.16. [id number] Unknown [id number] 2.16.8 [id number] Social History Date Type Detail Facility Start: 05-09-2021 End: 03-15-2023 Sex Assigned At [facility] Start: 1940 Sex Assigned At Male F [facility] Start: 06-13-2017 End: 01-22-2024 Tobacco smoking status NMIS Never smoked tobacco [facility] Start: 06-13-2017 Tobacco use and exposure Smokeless tobacco non-user [facility] Start: 05-09-2021 Alcohol intake Current drinke r of alcohol (finding) [facility] Start: 12-11-2017 Alcohol Comment Katie's in coffee [facility] Start: 1940 Sex Assigned At Not on file [facility] Start: 05-09-2021 End: 03-15-2023 History of Social function [facility] Adult Depression Screening Assessment 1 [facility] Medical Equipment Procedure Code Equipment Code Equipment Origin al Text Equipment Identifier Dates Reading Swivelock Tenodesis 8mm Biocomposite 19.5mm Suture [place] Eyelet - [id number] Start: 06-29-2017 Sleeve V40 +0mm Offset [place] Taper Titanium Adapter Hip - [id number] Start: 01-01-2018 Screw Trident Secur-Fit Torx 6.5mm Titanium 20mm Bone Sterile Acetabular - [id number] Start: 01-01-2018 Clinical Notes 08-25-2022 to 01-22-2024 Note Date & Type Note Facility 01-22-2024 Evaluation note Diagnosis Onset Date Chronic bronchitis, simple a cute Chronic kidney disease, stage 3a acute Elevated cholesterol acute Generalized anxiety disorder acute Hypertension acute Lumbar spondylolysis acute Obstructive sleep apnea acut e Medicare annual wellness visit, subsequent noneactive [facility] Work Phone: [phone] 519-890902-09-2024 Evaluation note* Encounter Date Diagnosis Assessment Notes [...] and clinically improving, no further treatment necessary [facility] Other 02-02-2024 Evaluation note* Encounter Date Diagnosis Assessment Notes Treatment Notes Treatment Clinical Notes Sep, Carotid bruit, unspecified laterality (ICD-10 - R09.89) [facility] Other 01-23-2024 Evaluation note* Encounter Date Diagnosis [...] tid Initiate Prednisone _update office on Sunday [facility] Other 01-15-2024 Evaluation note* Encounter Date Diagnosis Assessment Notes Treatment Notes Treatment Clinical Notes Aug, JONATHAN (generalized anxiety disorder) (ICD-10 - F41.1) [facility] Other 12-13-2023 Evaluation note* Encounter Date Diagnosis [...] best 2/3 readings w/ goal < 135/85 [facility] Other 11-28-2023 Evaluation note* Encounter Date Diagnosis [...] daily for blisters and ulcerations. Moisturizers daily [facility] Other 11-21-2023 Evaluation note* Encounter Date Diagnosis [...] Call if develop increased pain or erythema [facility] [employer] Other 11-01-2023 Evaluation note* Encounter Date Diagnosis [...] use, the patient reduces the risk for ID, CVA, HTN, cardiac dysrhythmias and sudden cardiac [...] very active. No change in medical treatment [facility] Other 10-27-2023 Evaluation note* Encounter Date Diagnosis Assessment Notes Treatment Notes Treatment Clinical Notes May, JONATHAN (generalized anxiety disorder) (ICD-10 - F41.1) [facility] Other 10-11-2023 Evaluation note* Encounter Date Diagnosis [...] They may safely use Tylenol as needed. [facility] Other 08-01-2023 Miscellaneous Notes* Telephone Encounter - Neida Porter MA - 03/20/2023 12:26 PM EDT DATE OF SERVICE: 03/15/2023 PATIENT'S PHONE NUMBERS: [phone] (home) OR @[email or web address]@ PROVIDER: Dr. Jaeger PROCEDURE: Elective Pain Management Procedure Left message on machine Asked pt to call back and speak with the specialty triage nurse with update. Please obtain percentage better and the duration of improvement. Please inquire if there were any problems afterwards. Neida Brink documented [facility] Miscellaneous Notes* Telephone Encounter - Linda Knox LPN - 02/26/2023 4:42 PM EDT Spoke to patient in [place] to pre procedure instructions. Pt must have a delivery truck driver heavy. Pt advised to arrive 30 min prior. [...] take. Advised on location of ASC-2nd floor [facility] Pt will receive a follow up call several days after by a team assembly line machine operator. If you experience any increase in weakness, difficulty walking or significant increase in pain thatlast more than 4 hours, please proceed to the Emergency Room and tell them you had a spine procedure done recently. Additionally, call us and notify us of these symptoms. Please call [phone] if you have any questions. Pt verbalized understanding. documented in this encounterGu[facility]07-03-2023 Miscellaneous Notes* Telephone Encounter - Linda Knox LPN - 02/19/2023 11:57 AM EDT Order approved Spoke to daughter in [facility] to pre procedure instructions. Daughter given scheduling number [phone] Pt must have a delivery truck driver heavy. Pt advised to arrive 30 min prior to the time given by the strong nitric operator. Pt advised will also receive a call the day before from the surgery center to confirm date/time. Pt can eat and drink as normal. and Pt can take medications as normal. No alcohol 24 hours prior. Pt is on ASA.- 81 mg okay to take. and must Advised on location of ASC-2nd floor [facility] Pt will receive a follow up call several days after by a team assembly line machine operator. If you experience any increase in weakness, difficulty walking or significant increase in pain thatlast more than 4 hours, please proceed to the Emergency Room and tell them you had a spine procedure done recently. Additionally, call us and notify us of these symptoms. Please call [phone] if you have any questions. Pt verbalized [...] call Celi as patient cannot hear well [phone] Patient has been identified by name and birthdate. Duration of symptoms: N/A Person calling: daughter: Celi Call patient at: N/A [phone] (home) [phone] (cell) Was an appointment scheduled: No Closing statement: Results or non-symptom based questions: Thank you for calling [facility], your call will be returned within the next business day. Camilla Jarrell Pss documented in this encounterGuernsey [facility] Hospital06-28-2023 Evaluation note* Encounter Date Diagnosis [...] use, the patient reduces the risk for ID, CVA, HTN, cardiac dysrhythmias and sudden cardiac [...] (ICD-10 - F41.1) Healthy diet, keep active [facility] Other 06-22-2023 Evaluation note* Encounter Date Diagnosis Assessment Notes Treatment Notes Treatment Clinical Notes Jan, Elevated cholesterol (ICD-10 - E78.00) Jan, Stage 3a chronic kidney disease (ICD-10 - N18.31) Jan, Primary hypertension (ICD-10 - I10) Jan, Screening PSA (prostate specific antigen) (ICD-10 - Z12.5) Jan, High risk medication use (ICD-10 - Z79.899) [facility] Other 06-15-2023 Evaluation note* Encounter Date Diagnosis [...] this time 6. Follow up as needed [facility] Other 04-24-2023 Evaluation note* Encounter Date Diagnosis [...] use of statin, experiencing ADR and stopped [facility] Other 03-23-2023 Evaluation note* Encounter Date Diagnosis [...] - M17.12) Quad exercises, ice/heat and Tylenol [facility] Other 03-23-2023 Evaluation note* Encounter Date Diagnosis [...] injection well. 6. 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) [facility] Other 01-06-2023 Evaluation note* Encounter Date Diagnosis Assessment Notes Treatment Notes Treatment Clinical Notes Aug, Carotid bruit, unspecified laterality (ICD-10 - R09.89) [facility] Other Evaluation noteNo assessment information available [facility] Work Phone: Evaluation noteNo [facility]NortBarn[facility] Other Evaluation note* Diagnosis Spinal stenosis, lumbar region with neurogenic claudication- Primary Lumbar radiculopathy, chronic Thoracic or lumbosacral neuritis or radiculitis, unspecified documented in this encounter [facility] note* Diagnosis Pseudoclaudication syndrome- Primary Spinal stenosis, lumbar region, with neurogenic claudication Lumbar radiculopathy Thoracic or lumbosacral neuritis or radiculitis, unspecified Pseudoclaudication syndrome Spinal stenosis, lumbar region, with neurogenic claudication Lumbar radiculopathy Thoracic or lumbosacral neuritis or radiculitis, unspecified documented in this encounter [facility]* Diagnosis Onset Date Resolution Status Chronic bronchitis, simple a cute Chronic kidney disease, stage 3a acute Elevated cholesterol acute Generalized anxiety disorder acute Hypertension acute Lumbar spondylolysis acute Obstructive sleep apnea acut e [facility] Work Phone: History general Narrative - Reported* Type Description Date [...] JANELLE 06/2017 Hospitalization History see surgical history [facility] Other Hospital Discharge instructionsAmbulatory Orders* Referral to Pain Management Location: None Selected [facility] Work Phone: Summary Purpose Family History No [...] sleep apnea Medicare annual wellness visit, subsequent Chief Complaint 4 month follow up Reason for Visit Chronic bronchitis, simple Chronic kidney disease, stage 3a Elevated cholesterol Generalized anxiety disorder Hypertension Lumbar spondylolysis Obstructive sleep apnea Additional Source Comments (unrecognized sect ion and content) No Status Records FoundNo Status Records FoundNo Status Records FoundNo Status Records FoundNo Status Records FoundNo Status Records FoundNo Status Records Found INFORMATION SOURCE (unrecogn ized section and content) DATE CREATED AUTHOR 02/06/2018 [facility] DATE CREATED AUTHOR AUTHOR'S ORGANIZ ATION 06/10/2018 [facility] DATE CREATED AUTHOR AUTHOR'S ORGANIZ ATION 11/06/2022 [facility] DATE CREATED AUTHOR AUTHOR'S ORGANIZ ATION 12/21/2022 [facility] DATE CREATED AUTHOR AUTHOR'S ORGANIZ ATION 03/15/2023 [facility] DATE CREATED AUTHOR AUTHOR'S ORGANIZ ATION 03/22/2023 [facility] DATE CREATED AUTHOR AUTHOR'S ORGANIZ ATION 06/04/2024 [facility] REASON FOR VISIT (unrecogniz ed section and content) Reason Comments Appointment Reason Comments Procedure Reason Comments Follow Up Phone Call Care Teams (unrecognized sec tion and content) Team Status: Active Member Role Status Dates Cecilio Benjamin DO Primary Care Provider Active Team Status: Inactive Member Role Status Dates Cecilio Benjamin DO Primary Care Provide r, Attending Provider Active Start: May 28, 2024 End: May 28, 2024 Team Status: Inactive Member Role Status Dates Jose Enrique Leblanc II, MD Attending Provider Active Honey Extractor Relationship Specialty Start Date End Date Cecilio Benjamin DO PCP - General Internal Medicine 09/04/13 Honey Extractor Relationship Specialty Start Date End Date Cecilio Benjamin DO PCP - General Internal Medicine 09/04/13 Honey Extractor Relationship Specialty Start Date End Date Cecilio Benjamin DO PCP - General Internal Medicine 09/04/13 Honey Extractor Relationship Specialty Start Date End Date Cecilio Benjamin DO PCP - General Internal Medicine 09/04/13 Team Status: Active Member Role Status Dates Cecilio Benjamin Primary Care Provider Active Start: October 30, 2023 JUSTIN Gan Attending Provider Active Start : October 30, 2023 Team Status: Inactive Member Role Status Cecilio Benjamin DO Primary Care Provide r, [...] or prosecute any alcohol or drug abuse patient.[facility] HospitalIn the event this information is protected by the Federal Confidentiality of Alcohol and Drug Abuse Patient Records regulations: The Federal rules restrict any use of the information to criminally investigate or prosecute any alcohol or drug abuse patient.[facility] HospitalIn the event this information is protected by the Federal Confidentiality of Alcohol and Drug Abuse Patient Records regulations: The Federal rules restrict any use of the information to criminally investigate or prosecute any alcohol or drug abuse patient.[facility] HospitalIn the event this information is protected by the Federal Confidentiality of Alcohol and Drug Abuse Patient Records regulations: The Federal rules restrict any use of the information to criminally investigate or prosecute any alcohol or drug abuse patient.[facility] FOR RECORDS PERTAINING TO PATIENTS [...] BE BASED ON THE PRIMARY CLINICAL RECORDS. [employer] [facility]. provides no warranty or guarantee of the accuracy or completeness of information in this document.
--- NOTE | 2024-06-11 12:15 | PM.CN ---
Consult Note: HPI Data of Consult Patient: known to practice within the last 3 years Consult date: 05/08/24 Requesting Physician: Erica Hope NP Primary Care Provider: Cecilio Benjamin DO Consult Narrative Reason for consult: low back pain Narrative: Ruperto Thorpe a pleasant 83 year old male presents for evaluation and management of chronic low back pain unresponsive to greater than 6 weeks of pt/guided HEP, tylenol/nsaids, heat/ice. Patient rating pain 2/10 stiff nagging increasing to 4/10 with standing, walking, twisting, pushing, pulling, activity. Pain improved with sitting, lying, sleep. Patient currently taking tylenol and nabumetone with mild benefit, denies side effects. Recently underwent bilateral L4/5 L5/S1 RFA with 75% improvement ongoing in axial low back pain and left SIJ injection with 80% improvement ongoing. cc:: CC: Erica Hope NP Review of Systems ROS Status of ROS 10 or more systems reviewed and unremarkable except as noted in history and below [facility] Medical History (Updated 05/15/24 @ 11:18 by Erica Hope NP) Low back pain ?M54.50 - Low back pain, unspecified (ICD-10) Heartburn ?R12 - Heartburn (ICD-10) Sleep apnea ?G47.30 - Sleep apnea, unspecified (ICD-10) COPD (chronic obstructive pulmonary disease) ?J44.9 - Chronic obstructive pulmonary disease, unspecified (ICD-10) Asthma ?J45.909 - Unspecified asthma, uncomplicated (ICD-10) Hypertension ?I10 - Essential (primary) hypertension (ICD-10) Surgical History H/O cervical spine surgery ?Z98.890 - Other specified postprocedural states (ICD-10) S/P tonsillectomy and adenoidectomy ?Z90.89 - Acquired absence of other organs (ICD-10) History of ankle surgery ?Z98.890 - Other specified postprocedural states (ICD-10) S/P cholecystectomy ?Z90.49 - Acquired absence of other specified parts of digestive tract (ICD-10) S/P total hip arthroplasty ?Z96.649 - Presence of unspecified artificial hip joint (ICD-10) History of surgery on upper extremity ?Z98.890 - Other specified postprocedural states (ICD-10) Meds Home Medications and Allergies Home Medications ?Medication ?Instructions ?Recorded ?Confirmed ?Type albuterol sulfate 90 mcg/actuation 2 inh inhalation Q8H PRN shortness 01/28/24 05/26/24 History aerosol inhaler (Ventolin HFA) of breath or wheezing amlodipine 2.5 mg tablet 2.5 mg PO DAILY 01/28/24 05/26/24 History clonazepam 0.5 mg tablet 0.5 mg PO DAILY 01/28/24 05/26/24 History escitalopram oxalate 10 mg tablet 10 mg PO DAILY 01/28/24 05/26/24 History (Lexapro) fluticasone propionate 110 1 inh inhalation BID 01/28/24 05/26/24 History mcg/actuation HFA aerosol inhaler nabumetone 500 mg tablet 500 mg PO BID 01/28/24 05/26/24 History omeprazole 20 mg capsule,delayed 20 mg PO DAILY 01/28/24 05/26/24 History release tamsulosin 0.4 mg capsule (Flomax) 0.4 mg PO DAILY 01/28/24 05/26/24 History diazepam 10 mg tablet 10 mg PO TID PRN sedation 04/07/24 05/26/24 History Allergies Allergy/AdvReac Type Severity Reaction Status Date / Time bacitracin AdvReac Mild Rash Verified 05/26/24 08:19 Exam Constitutional Documenting provider has reviewed patient's vital signs: yes Common normals: no apparent distress, oriented x3, healthy appearing, alert and well nourished General appearance: cooperative [facility] Common normals: normocephalic, hearing grossly normal bilaterally and moist oral mucous membranes Head and scalp: normocephalic Eye Common normals: PERRL Pupil: PERRL Neck & C-Spine Common normals: full ROM General: normal visual inspection Chest Common normals: inspection of chest normal Respiratory Common normals: normal respiratory effort, no retractions and no use of accessory muscles Back & Pelvis Lumbar spine/lower back: ROM limited and straight leg raise negative bilaterally; no pain with ROM Sacroiliac joints: SI joints normal Neuro Common normals: oriented x3, CN's II-XII intact bilaterally, moves all extremities, no focal motor deficits, no sensory deficits noted and deep tendon reflexes 2+ bilaterally Sensorium/orientation: alert Motor exam: strength 5/5 throughout and no movement abnormalities noted Psych Common normals: mental status grossly normal, thought process normal, cooperative, affect normal, speech normal and activity/motor behavior normal Speech: normal speech Thought process: normal thought process Results Additional Findings Additional findings: If on a controlled substance or opioids, I have checked an [place] report on this patient and there are no aberrancies noted in the prescribing history.??If on a controlled substance or opioid a drug screen was completed and reviewed within the last year, and if there has not been a drug screen completed we ordered one today to monitor higher risk, state monitored pain medication use. As part of providing excellent, safe, comprehensive care, the following was completed at our patient's visit: 1. A medication reconciliation and review to ensure accurate knowledge of current/active medications, including asking our patients to inform us about any [id number] medications or herbal remedies/nutritional supplements/alternative remedies. 2. A review to specifically ensure our patients have had annual screening for screening for depression, screening for tobacco use, and screening for unhealthy alcohol use. For concerning screenings had a discussion with the patient, provided patient education, and recommended follow-up with primary care provider when appropriate. If patient noted with a risk of falling, they received education on strength, gait, and balance training to prevent future risk of falling. Assessment and Plan Assessment and Plan (1) Sacroiliitis: (2) Lumbar spondylosis: (3) Lumbar stenosis with neurogenic claudication: Plan defer repeat bilateral L4-5 TFESI at this time continue HEP as tolerated f/u as needed
== END 2024-06-11 12:00 | disposition home or self-care (01) ==
LOC: PM 11:59
PROVIDERS: PCP Internal Medicine; Visit Provider Nurse Practitioner
DX: M46.1 Sacroiliitis, not elsewhere classified (principal); M47.816 Spondylosis without myelopathy or radiculopathy, lumbar region; M48.062 Spinal stenosis, lumbar region with neurogenic claudication
CPT/HCPCS: G0463

== ENCOUNTER 2024-07-14 13:54 | Outpatient (OUT) | payer MEDICARE, OTHER, SELFPAY ==
--- NOTE | 2024-07-14 15:03 | P.CN_ITS ---
Consult Note: HPI Data of Consult Patient: known to practice within the last 3 years Consult date: 07/14/24 Requesting Physician: Maddie Villalobos MD Primary Care Provider: Cecilio Benjamin DO Consult Narrative Reason for consult: low back, bilateral lower extremity pain Narrative: 83yom who presents for assessment. notes pain from low back into bilateral hips. imaging significant for severe stenosis at l4-5, as well as more moderate multilevel stenosis. continues to have relief with rfa. very active, engages in >6 weeks of provider directed home exercises. uses tylenol prn. cc:: CC: Maddie Villalobos MD Review of Systems ROS Status of ROS 10 or more systems reviewed and unremark able except as noted in history and below PFSH PFSH Medical History Low back pain ?M54.50 - Low back pain, unspecified (ICD-10) Heartburn ?R12 - Heartburn (ICD-10) Sleep apnea ?G47.30 - Sleep apnea, unspecified (ICD-10) COPD (chronic obstructive pulmonary disease) ?J44.9 - Chronic obstructive pulmonary disease, unspecified (ICD-10) Asthma ?J45.909 - Unspecified asthma, uncomplicated (ICD-10) Hypertension ?I10 - Essential (primary) hypertension (ICD-10) Surgical History H/O cervical spine surgery ?Z98.890 - Other specified postprocedural states (ICD-10) S/P tonsillectomy and adenoidectomy ?Z90.89 - Acquired absence of other organs (ICD-10) History of ankle surgery ?Z98.890 - Other specified postprocedural states (ICD-10) S/P cholecystectomy ?Z90.49 - Acquired absence of other specified parts of digestive tract (ICD- 10) S/P total hip arthroplasty ?Z96.649 - Presence of unspecified artificial hip joint (ICD-10) History of surgery on upper extremity ?Z98.890 - Other specified postprocedural states (ICD-10) Meds Home Medications and Allergies Home Medications ?Medication ?Instructions ?Recorded ?Confirmed ?Type albuterol sulfate 90 mcg/actuation 2 inh inhalation Q8H PRN shortness 01/28/24 05/26/24 History aerosol inhaler (Ventolin HFA) of breath or wheezing amlodipine 2.5 mg tablet 2.5 mg PO DAILY 01/28/24 05/26/24 History clonazepam 0.5 mg tablet 0.5 mg PO DAILY 01/28/24 05/26/24 History escitalopram oxalate 10 mg tablet 10 mg PO DAILY 01/28/24 05/26/24 History (Lexapro) fluticasone propionate 110 1 inh inhalation BID 01/28/24 05/26/24 History mcg/actuation HFA aerosol inhaler nabumetone 500 mg tablet 500 mg PO BID 01/28/24 05/26/24 History omeprazole 20 mg capsule,delayed 20 mg PO DAILY 01/28/24 05/26/24 History release tamsulosin 0.4 mg capsule (Flomax) 0.4 mg PO DAILY 01/28/24 05/26/24 History diazepam 10 mg tablet 10 mg PO TID PRN sedation 04/07/24 05/26/24 History Allergies Allergy/AdvReac Type Severity Reaction Status Date / Time bacitracin AdvReac Mild Rash Verified 05/26/24 08:19 Exam Narrative Exam Narrative: Psych-alert and oriented x 3. Attentive and appropriate, constitutionally normal, displays normal mood and affect per situation. There are no obvious deficits in memory, reasoning, or intellect.? Skin-no obvious rashes, bruising, erythema noted to the patient's area of pain.? Extremities- extremities are warm with minimal edema and palpable pulses. Lumbar-tenderness to palpation noted in the lumbar spine and paraspinal musculature. Pain is not elicited with flexion, extension, and lateral rotation of the lumbar spine. Range of motion is not diminished with these motions. Facet loading maneuvers are negative.? Strength-noted to be unremarkable with the exception of decreased strength rated at 4 out of 5 in bilateral quadriceps femoris. Sensory-no notable sensory deficits in the bilateral lower extremities to touch or pinprick in all dermatomal distributions with the exception to decreased sensation to the bilateral L4, 5 dermatomal distribution Coordination remains intact.? Gait remains non-antalgic. Assessment and Plan Assessment and Plan (1) Lumbar stenosis with neurogenic claudication: Plan 83yom who presents for assessment. failed conservative measures, as noted. imaging reviewed, as noted. has had lumbar tfesi in the past with >50% relief for >3 months. given previous relief and current symptoms, prudent to attempt bilateral l4-5 tfesi under fluoroscopic guidance. he will call when ready. medications reviewed, no changes. follow up after procedure.
== END 2024-07-14 13:55 | disposition home or self-care (01) ==
LOC: PM 13:54
PROVIDERS: PCP Internal Medicine; Visit Provider Anesthesiology
DX: M48.062 Spinal stenosis, lumbar region with neurogenic claudication (principal)
CPT/HCPCS: G0463

== ENCOUNTER 2024-08-04 10:46 | Day surgery (SDC) | payer MEDICARE, OTHER, SELFPAY ==
[2024-08-04 11:00] VITALS: BP 147/80; PULSE 65; TEMP 36.7; O2SAT 99
--- OUTSIDE RECORDS SUMMARY | 2024-08-04 11:07 | XMS_ITS | CCD ---
Author Organization [facility] ion [facility] Care Team Providers Care Gas Brazer Name Role Phone BRANDON [phone] UNKNOWN Unavailable Unavailable BETH GOODEN Unavailable Unavailable [...] MD Jose Enrique Leblanc II Attending Provider [phone] Jose Enrique Leblanc II Unavailable [phone] Jose Enrique Leblanc II Attending UnavailJose Enrique Malin II Admitting Unavaillizzeth e Cecilio Benjamin DO Primary Care Provider DAVID JAEGER Admitting Unavailable DAVID JAEGER Attending Unavailable CECILIO BENJAMIN Primary Care Unavailable Griselda WHARTON, Maddie Carreno Attending Unavailable Griselda WHARTON, Maddie Carreno Attending Unavailable Griselda WHARTON, Maddie Carreno Attending Unavailable Griselda WHARTON, Maddie Carreno Attending Unavailable Githiitis , Maddie Carreno Attending Unavailable Githiitis , Maddie Carreno Attending Unavailable Githiitis , Maddie Carreno Attending Unavailable Girosemary WHARTON, Maddie Carreno Attending Unavailable Githiitis , Maddie Carreno Attending Unavailable Allergies Allergy Classification Reported Allergen(s) Allergy Type Date of Onset Reaction(s) Facility (7 sources) bacitracin; Translations: [bacitracin] Drug Allergy 09-11-2013 Unknown [facility] Repository (19 sources) Albuterol Drug Allergy Unknown [employer] Other (20 sources) HMG-CoA reductase inhibitor Drug allergy Unknown [employer] Other Medications Current Medications Medication Drug Class(es) Dates Sig (Normalized) Sig (Original) acetaminophen 325 mg oral tablet (20 sources) Start: 10-17-2023 take 2 tablets by mouth every eight hours as needed Acetaminophen Active 325 MG PO Every 8 hours October 17, 2023 1:00am 2 tablets by mouth orally every 8 hours PRN Start: 01-02-2018 take 2 tablets by mo [facility] every eight hours acetaminophen (TYLENOL) 500 mg tablet Take 2 tablets by mouth every 8 hours. (Mild pain reliever) 90 tablet 1 01/02/2018 Active take 2 tablets by mo ut every eight hours as needed Acetaminophen 325 MG 2 tablets by mouth Orally every 8 hours PRN Active Comment on above: Take 2 tablets by mo uth every 8 hours. (Mild pain reliever) amLODIPine [...] Start: 04-02-2024 Nabumetone Active 0 .ROUTE .COMPLEX 180 April 02, 2024 1:32pm TAKE 1 TABLET TWICE A DAY Start: 10-17-2023 End: 04-02-2024 take 500 mg by mouth twice daily Nabumetone Discontinued 500 MG PO Twice daily 180 October 19, 2023 11:07am April 02, 2024 [...] Drug Class(es) Dates Sig (Normalized) Sig (Original) [id number] 200 actuat albuterol 0.09 mg/actuat metered dose [...] on above: Take 4 tablets by mo [facility] 1 hour prior to procedure and 2 [...] Comment on above: Take 1 capsule by [facility] twice daily. (Stool softener) doxycycline hyclate 100 mg oral capsule (16 sources) Tetracycline-class Drug Start: 10-17-2023 End: 10-19-2023 take 100 mg by mouth twice daily Doxycycline Hyclate Discontinued 100 MG PO Twice daily October 17, 2023 1:00am October 19, 2023 11:06am Start: 07-10-2023 take 1 capsule by [facility] every twelve hours Doxycycline Hyclate [...] 01-22-2024 Episodic Other aftercare (2 sources) Other manager media (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 therapy; Translations: [OTH JAIL CURRENT DRUG THERAPY] Onset: 11-06-2022 Episodic Other [...] Name Value Interpretation Reference Range Facility [facility] RUP[facility]OR[facility] ([id number]) 1940 Jill Kulkarni [place]* Date Time Provider Department 03/20[facility]23 [facility] During your visit today, we recorded the following information about you: Neida Porter MA 03/20/2023 12:30 PM Signed DATE OF SERVICE: 03/15/2023 PATIENT'S PHONE NUMBERS: [phone] (home) OR @WK@ PROVIDER: Dr. Jaeger PROCEDURE: [...] work Requesting to call his CELL ONLY [phone] what to do next Leave Detailed messages [...] of spine injection schedulers to call at [phone]. Patient will call if he wants to schedule another injection. 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 Author [...] offered a procedure / surgery at a [facility] facility. Patient and I have discussed [...] as indicated on the consent form. [facility] approved time out was performed identifying the site, side and level of procedure prior to start of procedure. [facility] - ELECTIVE PROCEDURE Lumbar Transforaminal Epidural [...] the entire procedure. [facility] CHELLE Telephone (SPNMAV) RUPERTO THORPE ([id number]) 1940 Jill Benton Date Time Provider Department 02/26/23 DAVID JAEGER During your visit today, we recorded the following information about you: Linda Knox LPN 02/26/2023 4:49 PM Signed Spoke to patient in reguards to pre procedure instructions. 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 Pt advised to arrive 30 min [...] take. Advised on location of ASC-2nd floor [facility] Pt will receive a follow up call several days after by a senior engineering team leader. If you experience any increase in weakness, difficulty walking or significant increase in pain that last more than 4 hours, please proceed to the Emergency Room and tell them you had a spine procedure done recently. Additionally, call us and notify us of these symptoms. Please call [phone] if you have any questions. Pt verbalized [...] Status:Closed by LINDA KNOX LPN [facility] CNPN Telephone (SPNMAV) RUPERTO THORPE ([id number]) 1940 Jill Marie* Date Time Provider Department 02/19/23 DAVID JAEGER During your visit today, we [...] call Celi as patient cannot hear well [phone] Patient has been identified by name and birthdate. Duration of symptoms: N/A Person calling: daughter: Celi Call patient at: N/A [phone] (home) [phone] (cell) Was an appointment scheduled: No Closing statement: Results or non-symptom based questions: Thank you for calling [facility], your call will be returned within the next business day. Camilla Jarrell Pss Linda Knox LPN 02/19/2023 9:45 AM Signed Spine Intervention order formatted for review Linda Knox SEMIAUTOMATIC TAPER OPERATOR 02/19/2023 11:59 AM Signed Order approved [facility] to [facility] instructions. Daughter given scheduling number [phone] Pt must have a crude oil driver. Pt advised to arrive 30 min prior to the time given by the key maker. Pt advised will also receive a call the day before from the surgery center to confirm date/time. Pt can eat and drink as normal. and Pt can take medications as normal. No alcohol 24 hours prior. Pt is on ASA.- 81 mg okay to take. and must Advised on location of ASC-2nd floor [facility] Pt will receive a follow up call several days after by a senior engineering team leader. If you experience any increase in weakness, difficulty walking or significant increase in pain that last more than 4 hours, please proceed to the Emergency Room and tell them you had a spine procedure done recently. Additionally, call us and notify us of these symptoms. Please call [phone] if you have any questions. Pt verbalized understanding. 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] Other Visit Diagnosis:Lumbar radiculopathy, chronic [M54.16] Order(s):SPINE INTERVENTION PROCEDURE [2703906] Order #: [id number] Prescriptions as of 02/19/2023 - albuterol HFA [...] LT 4V*on 11-09-2022 XR knee LT 4V* [facility] Main Alexis [address] [place] [address] XRay Report Signed Patient: Ruperto Thorpe MR#: [id number] 5 : 1940 Acct:[id number] Age/Sex: 82 / M ADM Date: 11/09/22 Loc: [facility] Room: Type: [facility] Attending Dr: Jose Enrique Leblanc II, MD [...] Darren Yuen M.D.11/09/2022 5:03 PM Dictation Location: [place] [address] Transcribed By: [facility] 11/09/221702 Dictated By: Darren Yuen II, MD 11/09/221700 Signed By: 11/09/221702 Normal [facility] XR knee LT 4V* [facility] [employer] Other XR knee LT 4V* [facility] Main [facility] [employer] Other XR knee LT 4V* [address] [employer] Other XR knee LT 4V* G[place] [address] No rt [employer] Other XR knee LT 4V* XRay Report [employer] Other XR knee LT 4V* Signed [employer] Other XR knee LT 4V* Patient: Ruperto Thorpe MR#: [id number] [employer] Other XR knee LT 4V* 5 [employer] Other XR knee LT 4V* : 1940 Acct:[id number] [employer] Other XR knee LT 4V* Age/Sex: 82 / M ADM Date: 11/09/22 [employer] Other XR knee LT 4V* Loc: [facility] Room: Type : [facility] [employer] Other XR knee LT 4V* Attending Dr: Jose Enrique Leblanc II, MD [employer] Other XR knee LT 4V* Copies to: Jose Enrique Leblanc MD [employer] Other XR knee LT 4V* Ordering Provider: Jose Enrique Leblanc MD [employer] Other XR knee LT 4V* Date of Service: 11/09/22 [employer] Other XR knee LT 4V* XR/XR knee LT 4V*: Acute pain of left knee [employer] Other XR knee LT 4V* XR knee LT 4V* 11/09/2022 3:15 PM [employer] Other XR knee LT 4V* SIGNS AND SYMPTOMS: Acute pain of left knee [employer] Other XR knee LT 4V* PROTOCOL: Frontal, lateral, oblique, and sunrise views of the left knee [employer] Other XR knee LT 4V* COMPARISON: 11/05/2022 [employer] Other XR knee LT 4V* FINDINGS: [employer]ne[employer] Other XR knee LT 4V* There is similar narrowing of the weightbearing joint spaces with chondrocalcinosis of the menisci [employer] Other XR knee LT 4V* suggesting underlyin g CPPD. There is narrowing of the patellofemoral joint space with spurring at [employer] Other XR knee LT 4V* the superior pole of patella. There is a small joint effusion. No soft tissue swelling. No acute [employer] Other XR knee LT 4V* displaced fracture. Vascular calcifications are present posteriorly. [employer] Other XR knee LT 4V* XR/XR knee LT 4V* [employer] Other XR knee LT 4V* IMPRESSION: [employer] Other XR knee LT 4V* Tricompartmental degenerative changes are noted in the left knee with a small joint effusion. [employer] Other XR knee LT 4V* There is chondrocalcinosis of the menisci suggesting underlying CPPD. [employer] Other XR knee LT 4V* Impression dictated by: Darren Yuen M.D.11/09/2022 5:03 PM [employer] Other XR knee LT 4V* Dictation Location: [place] [address] [employer] Other XR knee LT 4V* Transcribed By: COLIN 11/09/22 1703 [employer] Other XR knee LT 4V* Dictated By: Darren Yuen II, MD 11/09/221700 [employer] Other XR knee LT 4V* Signed By: [employer] Other XR knee LT 4V* 11/09/221702 [employer] Other XR pelvis 1-2Von 11-09-2022 XR pelvis 1-2V [facility] Main Alexis [address] [place] [address] XRay Report Signed Patient: Ruperto Thorpe MR#: [id number] 5 : 1940 Acct:[id number] Age/Sex: 82 / M ADM Date: 11/09/22 Loc: [facility] Room: Type: [facility] Attending Dr: Jose Enrique Leblanc II, MD [...] Darren Yuen M.D.11/09/2022 5:01 PM Dictation Location: [place] [address] Transcribed By: [facility] 11/09/221700 Dictated By: Darren Yuen II, MD 11/09/221699 Signed By: 11/09/221700 [facility] XR pelvis 1-2V XR/XR pelvis 1-2V: Acute pain of left knee [employer] Other XR pelvis 1-2V XR pelvis 1-2V 11/09/2022 3:15 PM [employer] Other XR pelvis 1-2V SIGNS AND SYMPTOMS: Left knee pain [employer] Other XR pelvis 1-2V PROTOCOL: Frontal radiograph of the chest [employer] Other XR pelvis 1-2V COMPARISON: None Nort [employer] Other XR pelvis 1-2V There is mild narrowing of the left hip joint space with subcortical cystic change on both sides of [employer] Other XR pelvis 1-2V the joint along the acetabular there is chondrocalcinosis of the labrum overlying the superior [employer] Other XR pelvis 1-2V acetabular rim and superior lateral femoral head. The bony ring of the pelvis is intact. There is [employer] Other XR pelvis 1-2V total right hip arthroplasty. Degenerative changes are noted in the sacroiliac joints. No fracture [employer] Other XR pelvis 1-2V is [employer] Other XR pelvis 1-2V XR/XR pelvis 1-2V [employer] Other XR pelvis 1-2V Degenerative changes are noted in the left hip with findings suspicious for previous labral [employer] Other XR pelvis 1-2V pathology. [employer] Other XR pelvis 1-2V Postoperative change s are noted in the right hip with total right hip arthroplasty hardware. [employer] Other XR pelvis 1-2V Impression dictated by: Darren Yuen M.D.11/09/2022 5:01 PM [employer] Other XR pelvis 1-2V Transcribed By: COLIN 11/09/22 170 [employer] Other XR pelvis 1-2V Dictated By: Darren Yuen II, MD 11/09/221699 [employer] Other XR pelvis 1-2V 11/09/221700 [employer] Other XR KNEE LT 4V or >on [...] There is chondrocalcinosis. Soft tissues: Unremarkable. IMPRESSION: Negw-fm-aiytzmhq osteoarthritis as described above. Chondrocalcinosis. No acute fracture or dislocation. Electronically authenticated by: CHUCK JONES Date: 2022-11-05 11:19 Normal [facility] US CAROTID ART BILon 023 US CAROTID [...] JONAS MCLEOD Date: 2022-09-26 10:58 Normal [facility] CBC AUTO DIFFon 08-10-2022 BASO # 0.0 103/ul Normal 0.0-0.1 [facility] Comment on above: Performed By: #### C BC #### [facility] [address] [place] [address] Dr. Alexis Brink Basophils/100 WBC (Bld) 0.7 % Normal 0.2-2.0 [facility] Comment on above: Performed By: #### C BC #### [facility] [address] [place] [address] Dr. Alexis Brink EO # 0.3 103/ul Normal 0.0-0.7 [facility] Comment on above: Performed By: #### C BC #### [facility] [address] [place] [address] Dr. Alexis Brink Eosinophils/100 WBC (Bld) 6.1 % Normal 0.9-7.0 [facility] Comment on above: Performed By: #### C BC #### [facility] [address] [place] [address] Dr. Alexis Brink Erythrocyte distribution width (RBC) [Ratio] 12.1 % Normal 11.0-15.0 [facility] Comment on above: Performed By: #### C BC #### [facility] [address] [place] [address] Dr. Alexis Brink Hematocrit (Bld) [Volume fraction] 44.2 % Normal 42.0-54.0 [facility] Comment on above: Performed By: #### C BC #### [facility] [address] [place] [address] Dr. Alexis Brink Hemoglobin (Bld) [Mass/Vol] 14.9 g/dL Normal 14.0-18.0 [facility] Comment on above: Performed By: #### C BC #### [facility] [address] [place] [address] Dr. Alexis Brink IG # 0.01 10e3/ul Normal 0.00-0.03 [facility] Comment on above: Performed By: #### C BC #### [facility] [address] [place] [address] Dr. Alexis Brink IG % 0.2 % Normal 0.0-0.5 [facility] Comment on above: Performed By: #### C BC #### [facility] [address] [place] [address] Dr. Alexis Brink LYMPH # 1.2 103/ul Normal 1.2-3.8 [facility] Comment on above: Performed By: #### C BC #### [facility] [address] [place] [address] Dr. Alexis Brink Lymphocytes/100 WBC (Bld) 21.3 % Normal 20.5-60.0 [facility] Comment on above: Performed By: #### C BC #### [facility] [address] [place] [address] Dr. Alexis Brink MANUAL DIFF REQ NO Normal [facility] Comment on above: Performed By: #### C BC #### [facility] [address] [place] [address] Dr. Alexis Brink MCH (RBC) [Entitic mass] 30.7 pg Normal 25.9-34.0 [facility] Comment on above: Performed By: #### C BC #### [facility] [address] [place] [address] Dr. Alexis Brink MCHC (RBC) [Mass/Vol] 33.7 g/dL Normal 29.9-35.2 [facility] Comment on above: Performed By: #### C BC #### [facility] [address] [place] [address] Dr. Alexsi Brink MCV (RBC) [Entitic vol] 91.1 fL Normal 80.0-94.0 [facility] Comment on above: Performed By: #### C BC #### [facility] [address] [place] [address] Dr. Alexis Brink MONO # 0.5 103/ul Normal 0.3-0.8 [facility] Comment on above: Performed By: #### C BC #### [facility] [address] [place] [address] Dr. Alexis Brink Monocytes/100 WBC (Bld) 8.5 % Normal 1.7-12.0 [facility] Comment on above: Performed By: #### C BC #### [facility] [address] [place] [address] [address] Alexis Brink NEUT # 3.5 103/ul Normal 1.4-6.5 [facility] Comment on above: Performed By: #### C BC #### [facility] [address] [place] [address] [address] Alexis Brink Neutrophils/100 WBC (Bld) 63.2 % Normal 43.0-75.0 [facility] Comment on above: Performed By: #### C BC #### [facility] [address] [place] [address] [address] Alexis Brink Platelet mean volume (Bld) [Entitic vol] 10.0 fL Normal 9.5-13.5 [facility] Comment on above: Performed By: #### C BC #### [facility] [address] [place] [address] [address] Alexis Brink PLT 120 103/ul Critically low 150-450 [facility] Comment on above: Performed By: #### C BC #### [facility] [address] [place] [address] [address] Alexis Brink RBC 4.85 106/ul Normal 4.70-6.10 [facility] Comment on above: Performed By: #### C BC #### [facility] [address] [place] [address] Dr. Alexis Brink WBC 5.6 103/ul Normal 4.0-11.0 [facility] Comment on above: Performed By: #### C BC #### [facility] [address] [place] [address] Dr. Alexis Brink Covid-19 PCR (CVDTB)on 07-21 SARS-CoV-2 (COVID-19) RNA RICKY+probe Ql (Unsp spec) Not detected Normal NOT DETECTED [facility] Comment on above: Result Comment: This test is not yet approved or cleared by the [place] FDA. When there are no FDA-approved or cleared tests available, and other criteria are met, FDA can make tests available under an emergency access mechanism called an Emergency Use Authorization (EUA). The EUA for this test is supported by the Fitting Room Maintenance Mechanic of Health and Human Service's (HHS's) declaration [...] with SARS-CoV-2. Performed By: #### C VDTB ####[facility] [address] [place], [place] [address]Dr. Alexis Brink INFLUENZA A AND B AGon 08-10 [facility] SEE BELOW Normal [facility] Comment on above: Result Comment: Nega tive for Flu A protein angiten. Infection due to Flu A cannot be ruled out. Flu A angiten in the sample may be below the detection limit of the test. Performed By: #### I NFLUAB ####[facility] [address] [place], [place] [address]Dr. Alexis Brink INFLUBNEGH SEE BELOW Normal [facility] Comment on above: Result Comment: Nega tive for Flu B protein antigen. Infection due to Flu B cannot be ruled out. Flu B antigen in the sample may be below the detection limit of the test. Performed By: #### I NFLUAB ####[facility] [address] [place], [place] [address]Dr. Alexis Brink INFLUENZA A AG Negative Normal NEGATIVE SEE COMMENT [facility] Comment on above: Performed By: #### I NFLUAB ####[facility] [address] [place], [place] [address]Dr. Alexis [facility] INFLUENZA B AG Negative Normal NEGATIVE SEE COMMENT [facility] Comment on above: Performed By: #### I NFLUAB ####[facility] [address] [place], [place] [address]Dr. Alexis Brink INTERNAL CONTROLS Within Normal Limits Normal Wi thin Normal Limits [facility] Comment on above: Performed By: #### I NFLUAB ####[facility] [address] [place] [address]Dr. Alexis Brink PROF CHEM 8 (BAS METB)on Anion gap [Moles/Vol] 11.4 mmol/L Normal [facility] Comment on above: Performed By: #### B NARA, HSTROPN #### [facility] [address] [place] [address] [address] Alexis Brink Calcium [Mass/Vol] 8.9 mg/dL Normal 8.5-10.1 [facility] Comment on above: Performed By: #### B NARA, HSTROPN #### [facility] [address] [place] [address] [address] Alexis Brink Chloride [Moles/Vol] 102 mmol/L Normal 98-107 [facility] Comment on above: Performed By: #### B NARA, HSTROPN #### [facility] [address] [place] [address] [address] Aleixs Brink CO2 [Moles/Vol] 28.8 mmol/L Normal 21.0-32.0 [facility] Comment on above: Performed By: #### B NARA, HSTROPN #### [facility] [address] [address] [address] Alexis Brink Creatinine [Mass/Vol] 1.35 mg/dL Critically high 0.70-1.30 [facility] Comment on above: Performed By: #### B NARA, HSTROPN #### [facility] [address] [address] [address] Alexis Brink EGFR-AF NEPALESE >60 Normal >=60 [facility] Comment on above: Performed By: #### B NARA, HSTROPN #### [facility] [address] [place] [address] [address] Alexis Brink EGFR-NON AF NEPALESE 51 mL/min/1.73m2 Critically low >=60 [facility] Comment on above: Performed By: #### B NARA, HSTROPN #### [facility] [address] [address] [address] Alexis Brink Glucose [Mass/Vol] 109 mg/dL Critically high 74-106 [facility] Comment on above: Performed By: #### B MP, HSTROPN #### [facility] [address] [address] [address] Alexis Brink Potassium [Moles/Vol] 4.2 mmol/L Normal 3.5-5.1 [facility] Comment on above: Performed By: #### B MP, HSTROPN #### [facility] [address] [place] [address] Dr. Alexis Brink Sodium [Moles/Vol] 138 mmol/L Normal 136-145 [facility] Comment on above: Performed By: #### B MP, HSTROPN #### [facility] [address] [place] [address] Dr. Alexis Brink Urea nitrogen [Mass/Vol] 18.0 mg/dL Normal 7.0-18.0 [facility] [facility] Comment on above: Performed By: #### B MP, HSTROPN #### [facility] [address] [place] [address] Dr. Alexis Brink Urea nitrogen/Creatinin e [Mass ratio] 13.3 mg/mg Normal [facility] Comment on above: Performed By: #### B MP, HSTROPN #### [facility] [address] [place] [address] Dr. Alexis Brink TROPONIN, HIGH SENSITIVITYon 08-10-2022 HSTROP 22.2 pg/mL Normal 4.0-76.1 [facility] Comment on above: Result Comment: CUT- OFF POINTS HAVE BEEN ESTABLISHED BASED ON THE FOURTH UNIVERSAL DEFINITIONS OF MYOCARDIAL INFARCTION. THE UPPER REFERENCE LIMIT (URL) OF TROPONIN, DEFINED THE 99TH PERCENTILE OF cTnI DISTRIBUTION IN A REFERENCE POPULATION, HAS BEEN CONFIRMED THE DECISION THRESHOLD FOR CA DIAGNOSIS. Performed By: #### B MP, HSTROPN #### [facility] [address] [place] [address] Dr. Alexis Brink XR CHEST 1 Von [...] RADHA UNDERWOOD Date: 2022-08-10 16:07 Normal [facility] CBC AUTO DIFFon 02-09-2022 BASO # 0.0 103/ul Normal 0.0-0.1 [facility] Comment on above: Performed By: #### C BC #### [facility] [address] [place] [address] Dr. Alexis Brink Basophils/100 WBC (Bld) 0.6 % Normal 0.2-2.0 [facility] Comment on above: Performed By: #### C BC #### [facility] [address] [address] [address] Alexis Brink EO # 0.5 103/ul Normal 0.0-0.7 [facility] Comment on above: Performed By: #### C BC #### [facility] [address] [address] [address] Alexis Brink Eosinophils/100 WBC (Bld) 7.2 % Critically high 0.9-7.0 [facility] Comment on above: Performed By: #### C BC #### [facility] [address] [address] [address] Alexis Brink Erythrocyte distribution width (RBC) [Ratio] 12.4 % Normal 11.0-15.0 [facility] Comment on above: Performed By: #### C BC #### [facility] [address] [place] [address] Dr. Alexis Brink Hematocrit (Bld) [Volume fraction] 45.5 % Normal 42.0-54.0 [facility] Comment on above: Performed By: #### C BC #### [facility] [address] [place] [address] Dr. Alexis Brink Hemoglobin (Bld) [Mass/Vol] 15.4 g/dL Normal 14.0-18.0 [facility] Comment on above: Performed By: #### C BC #### [facility] [address] [place] [address] Dr. Alexis Brink IG # 0.02 10e3/ul Normal 0.00-0.03 [facility] Comment on above: Performed By: #### C BC #### [facility] [address] [place] [address] Dr. Alexis Brink IG % 0.3 % Normal 0.0-0.5 [facility] Comment on above: Performed By: #### C BC #### [facility] [address] [place] [address] Dr. Alexis Brink LYMPH # 1.3 103/ul Normal 1.2-3.8 [facility] Comment on above: Performed By: #### C BC #### [facility] [address] [place] [address] Dr. Alexis Brink Lymphocytes/100 WBC (Bld) 17.8 % Critically low 20.5-60.0 [facility] Comment on above: Performed By: #### C BC #### [facility] [address] [place] [address] Dr. Alexis Brink MANUAL DIFF REQ NO Normal [facility] Comment on above: Performed By: #### C BC #### [facility] [address] [place] [address] Dr. Alexis Brink MCH (RBC) [Entitic mass] 31.4 pg Normal 25.9-34.0 [facility] Comment on above: Performed By: #### C BC #### [facility] [address] [place] [address] Dr. Alexis Brink MCHC (RBC) [Mass/Vol] 33.8 g/dL Normal 29.9-35.2 [facility] Comment on above: Performed By: #### C BC #### [facility] [id number] Alexis Brink MCV (RBC) [Entitic vol] 92.9 fL Normal 80.0-94.0 [facility] Comment on above: Performed By: #### C BC #### [facility] [id number] Alexis Brink MONO # 0.7 103/ul Normal 0.3-0.8 [facility] Comment on above: Performed By: #### C BC #### [facility] [address] [address] [address] Alexis Brink Monocytes/100 WBC (Bld) 9.6 % Normal 1.7-12.0 [facility] Comment on above: Performed By: #### C BC #### [facility] [address] [place] [address] Dr. Alexis Brink NEUT # 4.6 103/ul Normal 1.4-6.5 [facility] Comment on above: Performed By: #### C BC #### [facility] [address] [place] [address] Dr. Alexis Brink Neutrophils/100 WBC (Bld) 64.5 % Normal 43.0-75.0 [facility] Comment on above: Performed By: #### C BC #### [facility] [address] [place], [place] [id number] Dr. Alexis Brink Platelet mean volume (Bld) [Entitic vol] 10.7 fL Normal 9.5-13.5 [facility] Comment on above: Performed By: #### C BC #### [facility] [address] [place] [address] Dr. Alexis Brink PLT 130 103/ul Critically low 150-450 [facility] Comment on above: Performed By: #### C BC #### [facility] [address] [place], [place] [id number] Dr. Alexis Brink RBC 4.90 106/ul Normal 4.70-6.10 [facility] Comment on above: Performed By: #### C BC #### [facility] [address] [address] [address] Alexis Brink WBC 7.1 103/ul Normal 4.0-11.0 [facility] Comment on above: Performed By: #### C BC #### [facility] [address] [address] [address] Alexis Brink DIRECT LDLon 02-09-2022 Cholesterol in LDL [Mass/Vol] 144 mg/dL Normal [facility] Comment on above: Performed By: #### D LDL, BMP ####[facility] [id number] [id number]. Alexis Brink DLDL NORMAL SEE BELOW Normal [facility] Comment on above: Result Comment: <100 mg/dl OPTIMAL 100 - 129 mg/dl NEAR OR ABOVE OPTIMAL 130 - 159 mg/dl BORDERLINE HIGH 160 - 189 mg/dl HIGH >190 mg/dl VERY HIGH Performed By: #### D LDL, BMP ####[facility] [address] [id number]. Alexis Brink PROF CHEM 8 (BAS METB)on Anion gap [Moles/Vol] 9.3 mmol/L Normal [facility] Comment on above: Performed By: #### D LDL, BMP #### [facility] [address] [place] [address] Dr. Alexis Brink Calcium [Mass/Vol] 8.7 mg/dL Normal 8.5-10.1 [facility] Comment on above: Performed By: #### D LDL, BMP #### [facility] [address] [address] [address] Alexis Brink Chloride [Moles/Vol] 103 mmol/L Normal 98-107 [facility] Comment on above: Performed By: #### D LDL, BMP #### [facility] [address] [address] [address] Alexis Brink CO2 [Moles/Vol] 32.1 mmol/L Critically high 21.0-32.0 [facility] Comment on above: Performed By: #### D LDL, BMP #### [facility] [address] [address] [address] Alexis Brink Creatinine [Mass/Vol] 1.35 mg/dL Critically high 0.70-1.30 [facility] Comment on above: Performed By: #### D LDL, BMP #### [facility] [address] [address] [address] Alexis Brink EGFR-AF NEPALESE >60 Normal >=60 [facility] Comment on above: Performed By: #### D LDL, BMP #### [facility] [address] [address] [address] Alexis Brink EGFR-NON AF NEPALESE 51 mL/min/1.73m2 Critically low >=60 [facility] Comment on above: Performed By: #### D LDL, BMP #### [facility] [address] [address] [address] Alexis Brink Glucose [Mass/Vol] 90 mg/dL Normal 74-106 [facility] Comment on above: Performed By: #### D LDL, BMP #### [facility] [address] [address] [address] Alexis Brink Potassium [Moles/Vol] 4.4 mmol/L Normal 3.5-5.1 [facility] Comment on above: Performed By: #### D LDL, BMP #### [facility] [address] [place] [address] Dr. Alexis Brink Sodium [Moles/Vol] 140 mmol/L Normal 136-145 [facility] Comment on above: Performed By: #### D LDL, BMP #### [facility] [address] [address] [address] Alexis Brink Urea nitrogen [Mass/Vol] 16.0 mg/dL Normal 7.0-18.0 [facility] Comment on above: Performed By: #### D LDL, BMP #### [facility] [address] [place] [address] Dr. Alexis Brink Urea nitrogen/Creatinin e [Mass ratio] 11.9 mg/mg Normal [facility] Comment on above: Performed By: #### D LDL, BMP #### [facility] [address] [place] [address] Dr. Alexis Brink UA RANDOMon 02-09-2022 Bilirubin Ql (U) Negative Normal NEGATIVE [facility] Comment on above: Performed By: #### U A #### [facility] [address] [place] [address] Dr. Alexis Brink Clarity (U) CLEAR Normal CLEAR [facility] Comment on above: Performed By: #### U A #### [facility] [address] [place] [address] Dr. Alexis Brink Color (U) YELLOW Normal YELLOW [facility] Comment on above: Performed By: #### U A #### [facility] [address] [place] [address] Dr. Alexis Brink Glucose Ql (U) Negative Normal NEGATIVE [facility] Comment on above: Performed By: #### U A #### [facility] [address] [place] [address] Dr. Alexis Brink Hemoglobin Ql (U) Negative Normal NEGATIVE [facility] Comment on above: Performed By: #### U A #### [facility] [address] [place] [address] Dr. Alexis Brink Ketones Ql (U) Negative Normal NEGATIVE [facility] Comment on above: Performed By: #### U A #### [facility] [address] [place] [address] Dr. Alexis Brink LEUKOCYTES Negative Normal NEGATIVE [facility] Comment on above: Performed By: #### U A #### [facility] [address] [place] [address] Dr. Alexis Brink Nitrite Ql (U) Negative Normal NEGATIVE [facility] Comment on above: Performed By: #### U A #### [facility] [address] [place] [address] Dr. Alexis Brink pH (U) 7.0 [pH] Normal 5-9 [facility] Comment on above: Performed By: #### U A #### [facility] [address] [place] [address] Dr. Alexis Brink SPEC GRAVITY 1.015 Normal 1.005-<=1.025 [facility] Comment on above: Performed By: #### U A #### [facility] [address] [address] [address] Alexis Brink UA PROTEIN Negative Normal NEGATIVE/ TRACE [facility] Comment on above: Performed By: #### U A #### [facility] [id number] Alexis Brink Urobilinogen Qn (U) 1.0 {Kay'U}/dL Normal 0.2 - 1.0 [facility] Comment on above: Performed By: #### U A #### [facility] [id number] Alexis Brink XR CHEST 2 Von [...] by: LYDIA HAWLEY Date: 2021-12-06 15:42 Normal [facility] Nonvisit Note - PTon 018 Nonvisit Note - PT Cert letter refaxed for signature this date - third and final attempt. Normal [facility] Nonvisit Note - PTon 018 Nonvisit Note - PT Cert letter refaxed to Dr Gooden's office. Second attempt. Normal [facility] Coding Summary.on 01-25-2018 Coding Summary. CODING DATE: 01/25/2018 FINAL [facility] STATUS: PAYOR: Medicare ADMIT DX: REASON FOR [...] [place] Date Saved: 01/25/2018 10:54 am Normal [facility] Coding Summary. CODING DATE: 01/25/2018 [facility] STATUS: PAYOR: Medicare ADMIT DX: REASON [...] [place] Date Saved: 01/25/2018 10:54 am Normal [facility] SURGICAL PATHOLOGYon 05-15-2 018 SURGICAL PATHOLOGY [id number] Physician: BETH GOODEN MD FINAL DIAGNOSISRight hip, [...] to 8.5 x 8.5 x 1.8 cm. 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 [facility] Comment on above: Performed By: #### S ####See report for performing lab information. Vital Signs Date Time Vital Sign Value Performing Clinician Facility 05-28-2024 08:30-0400 Body height 167.64 cm [facility] 05-28-2024 08:30-0400 Body mass index (BMI) [Ratio] 27.1 kg/m2 [facility] 05-28-2024 08:30-0400 Body weight 76.31 kg [facility] 05-28-2024 08:30-0400 Diastolic blood pressure 89 mm[Hg] [facility] 05-28-2024 08:30-0400 Heart rate 61 /min [facility] 05-28-2024 08:30-0400 Respiratory rate 12 /min [facility] 05-28-2024 08:30-0400 Systolic blood pressure 139 mm[Hg] [facility] 01-22-2024 09:16-0400 Body height 167.64 cm [facility] 01-22-2024 09:16-0400 Body mass index (BMI) [Ratio] 29.3 kg/m2 [facility] 01-22-2024 09:16-0400 Body weight 82.55 kg [facility] 01-22-2024 09:16-0400 Diastolic blood pressure 72 mm[Hg] [facility] 01-22-2024 09:16-0400 Heart rate 64 /min [facility] 01-22-2024 09:16-0400 Respiratory rate 20 /min [facility] 01-22-2024 09:16-0400 Systolic blood pressure 131 mm[Hg] [facility] 09-28-2023 11:00-0500 Body height 167.64 cm Cecilio Ball Other [facility] [employer] Other 09-28-2023 11:00-0500 Body mass index (BMI) [Ratio] 30.24 kg/m2 Cecilio Ball Other [employer] Other 09-28-2023 11:00-0500 Body weight 85 kg Cecilio Ball Other [employer] Other 09-28-2023 11:00-0500 Respiratory rate 20 /min Cecilio Ball Other [employer] Other 09-28-2023 11:00-0500 SaO2% (BldA) [Mass fraction] 97 % Cecilio Ball Other [employer] Other 09-11-2023 10:45-0500 Body height 167.64 cm Cecilio Ball Other [employer] Other 09-11-2023 10:45-0500 Body mass index (BMI) [Ratio] 29.86 kg/m2 Cecilio Ball Other [employer] Other 09-11-2023 10:45-0500 Body temperature 97.5 [degF] Cecilio Ball Other [employer] Other 09-11-2023 10:45-0500 Body weight 83.92 kg Cecilio Ball Other [employer] Other 09-11-2023 10:45-0500 Diastolic blood pressure 81 mm[Hg] Cecilio Ball Other [employer] Other 09-11-2023 10:45-0500 Respiratory rate 20 /min Cecilio Ball Other [employer] Other 09-11-2023 10:45-0500 SaO2% (BldA) [Mass fraction] 98 % Cecilio Ball Other [employer] Other 09-11-2023 10:45-0500 Systolic blood pressure 161 mm[Hg] Cecilio Ball Other [employer] Other 08-01-2023 10:15-0500 Body height 167.64 cm Cecilio Ball Other [employer] Other 08-01-2023 10:15-0500 Body mass index (BMI) [Ratio] 29.86 kg/m2 Cecilio Ball Other [employer] Other 08-01-2023 10:15-0500 Body weight 83.92 kg Cecilio Ball Other [employer] Other 08-01-2023 10:15-0500 Diastolic blood pressure 79 mm[Hg] Cecilio Ball Other [employer] Other 08-01-2023 10:15-0500 Respiratory rate 20 /min Cecilio Ball Other [employer] Other 08-01-2023 10:15-0500 Systolic blood pressure 172 mm[Hg] Cecilio Ball Other [employer] Other 07-17-2023 10:15-0500 Body height 167.64 cm Cecilio Ball Other [employer] Other 07-17-2023 10:15-0500 Body mass index (BMI) [Ratio] 29.89 kg/m2 Cecilio Ball Other [employer] Other 07-17-2023 10:15-0500 Body weight 84.01 kg Cecilio Ball Other [employer] Other 07-17-2023 10:15-0500 Diastolic blood pressure 78 mm[Hg] Cecilio Ball Other [employer] Other 07-17-2023 10:15-0500 Respiratory rate 20 /min Cecilio Ball Other [employer] Other 07-17-2023 10:15-0500 Systolic blood pressure 172 mm[Hg] Cecilio Ball Other [employer] Other 07-10-2023 14:45-0500 Body height 167.64 cm Cecilio Ball Other [employer] Other 07-10-2023 14:45-0500 Body mass index (BMI) [Ratio] 29.47 kg/m2 Cecilio Ball Other [employer] Other 07-10-2023 14:45-0500 Body weight 82.83 kg Cecilio Ball Other [employer] Other 07-10-2023 14:45-0500 Diastolic blood pressure 80 mm[Hg] Cecilio Ball Other [employer] Other 07-10-2023 14:45-0500 Respiratory rate 20 /min Cecilio Ball Other [employer] Other 07-10-2023 14:45-0500 Systolic blood pressure 150 mm[Hg] Cecilio Ball Other [employer] Other 06-20-2023 08:30-0400 Body height 167.64 cm Cecilio Ball Other [employer] Other 06-20-2023 08:30-0400 Body mass index (BMI) [Ratio] 29.6 kg/m2 Cecilio Ball Other [employer] Other 06-20-2023 08:30-0400 Body weight 83.19 kg Cecilio Ball Other [employer] Other 06-20-2023 08:30-0400 Diastolic blood pressure 76 mm[Hg] Cecilio Ball Other [employer] Other 06-20-2023 08:30-0400 Respiratory rate 20 /min Cecilio Ball Other [employer] Other 06-20-2023 08:30-0400 Systolic blood pressure 157 mm[Hg] Cecilio Ball Other [employer] Other 05-30-2023 13:45-0400 Body height 167.64 cm Cecilio Ball Other [employer] Other 05-30-2023 13:45-0400 Body mass index (BMI) [Ratio] 28.95 kg/m2 Cecilio Ball Other [employer] Other 05-30-2023 13:45-0400 Body weight 81.38 kg Cecilio Ball Other [employer] Other 05-30-2023 13:45-0400 Diastolic blood pressure 78 mm[Hg] Cecilio Ball Other [employer] Other 05-30-2023 13:45-0400 Respiratory rate 16 /min Cecilio Ball Other [employer] Other 05-30-2023 13:45-0400 Systolic blood pressure 158 mm[Hg] Cecilio Ball Other [employer] Other 02-14-2023 08:30-0400 Body height 167.64 cm Cecilio Ball Other [employer] Other 02-14-2023 08:30-0400 Body mass index (BMI) [Ratio] 28.57 kg/m2 Cecilio Ball Other [employer] Other 02-14-2023 08:30-0400 Body weight 80.29 kg Cecilio Ball Other [employer] Other 02-14-2023 08:30-0400 Diastolic blood pressure 80 mm[Hg] Cecilio Ball Other [employer] Other 02-14-2023 08:30-0400 Respiratory rate 16 /min Cecilio Ball Other [employer] Other 02-14-2023 08:30-0400 Systolic blood pressure 135 mm[Hg] Cecilio Ball Other [employer] Other 02-01-2023 08:15-0400 Body height 167.64 cm Jose Enrique Walton II Other [employer] Other 02-01-2023 08:15-0400 Body mass index (BMI) [Ratio] 27.44 kg/m2 Jose Enrique Walton II Other [employer] Other 02-01-2023 08:15-0400 Body weight 77.11 kg Jose Enrique Benji II Other [employer] Other 12-11-2022 10:30-0400 Body height 167.64 cm Cecilio Ball Other [employer] Other 12-11-2022 10:30-0400 Body mass index (BMI) [Ratio] 28.66 kg/m2 Cecilio Ball Other [employer] Other 12-11-2022 10:30-0400 Body weight 80.56 kg Cecilio Ball Other [employer] Other 12-11-2022 10:30-0400 Diastolic blood pressure 76 mm[Hg] Cecilio Ball Other [employer] Other 12-11-2022 10:30-0400 Respiratory rate 12 /min Cecilio Ball Other [employer] Other 12-11-2022 10:30-0400 Systolic blood pressure 151 mm[Hg] Cecilio Ball Other [employer] Other 11-09-2022 16:00-0400 Body mass index (BMI) [Ratio] 29.21 kg/m2 Jose Enrique Walton II Other [employer] Other 11-09-2022 16:00-0400 Body weight 82.1 kg Jose Enrqiue Walton II Other [employer] Other 11-09-2022 10:30-0400 Body height 167.64 cm Cecilio Ball Other [employer] Other 11-09-2022 10:30-0400 Body mass index (BMI) [Ratio] 29.23 kg/m2 Cecilio Ball Other [employer] Other 11-09-2022 10:30-0400 Body weight 82.15 kg Cecilio Ball Other [employer] Other 11-09-2022 10:30-0400 Diastolic blood pressure 79 mm[Hg] Cecilio Ball Other [employer] Other 11-09-2022 10:30-0400 Respiratory rate 20 /min Cecilio Ball Other [employer] Other 11-09-2022 10:30-0400 Systolic blood pressure 152 mm[Hg] Cecilio Ball Other [employer] Other 10-12-2022 10:00-0500 Body height 167.64 cm Cecilio Ball Other [employer] Other 10-12-2022 10:00-0500 Body mass index (BMI) [Ratio] 29.24 kg/m2 Cecilio Ball Other [employer] Other 10-12-2022 10:00-0500 Body weight 82.19 kg Cecilio Ball Other [employer] Other 10-12-2022 10:00-0500 Diastolic blood pressure 70 mm[Hg] Cecilio Ball Other [employer] Other 10-12-2022 10:00-0500 Respiratory rate 12 /min Cecilio Ball Other [employer] Other 10-12-2022 10:00-0500 Systolic blood pressure 102 mm[Hg] Cecilio Ball Other [employer] Other Encounters Encounter Date Encounter Type Care Provider Facility Start: 07-14-2024 End: 07-14-2024 ambulatory Maddie Villalobos MD Facility: [facility] Start: 05-28-2024 End: 05-28-2024 ambulatory [facility] Work Phone: Start: 05-28-2024 End: 05-28-2024 [facility] Start: 05-26-2024 End: 05-26-2024 ambulatory Andrius Wai Salteritis Facility: [place] Start: 04-07-2024 End: 04-07-2024 ambulatory Andrius Vytautas Giedraitis Facility: [facility] Start: 03-31-2024 End: 03-31-2024 ambulatory [facility]tautas [facility] Start: 03-24-2024 End: 03-24-2024 ambulatory [facility]ut[facility] Start: 03-10-2024 End: 03-10-2024 ambulatory [facility]utas [facility]itis [facility] Start: 02-25-2024 End: 02-25-2024 ambulatory Andrius Vytautas Sherinedraitis Facility: [place] Start: 02-11-2024 End: 02-11-2024 ambulatory Andrius Vytautas Alexraitis Facility: [place] Start: 01-28-2024 End: 01-28-2024 ambulatory [facility]tautas [facility]raitis [facility] Start: 01-22-2024 End: 01-22-2024 ambulatory [facility] Work Phone: Start: 01-22-2024 End: 01-22-2024 [facility]: Start: 10-30-2023 Non-patient / Non-visit [facility] [employer] Work Phone: Start: 09-28-2023 End: 09-28-2023 ambulatory Cecilio Benjamin Other [employer] Other Start: 09-28-2023 Office outpatient vi sit 15 minutes Cecilio Ball [facility] Start: 09-28-2023 Telephone encounter Cecilio Ball [facility] Start: 09-21-2023 End: 09-21-2023 ambulatory Cecilio Ball Other [employer] Other Start: 09-21-2023 Telephone encounter Cecilio Ball [facility] Start: 09-11-2023 End: 09-11-2023 ambulatory Cecilio Ball Other [employer] Other Start: 09-11-2023 Office outpatient vi sit 15 minutes Cecilio Ball [facility] Start: 09-11-2023 Telephone encounter Cecilio Ball [facility] Start: 09-03-2023 End: 09-03-2023 ambulatory Cecilio Ball Other [employer] Other Start: 09-03-2023 Telephone encounter Cecilio Ball [facility] Start: 08-03-2023 End: 08-03-2023 ambulatory Cecilio Ball Other [employer] Other Start: 08-03-2023 Telephone encounter Cecilio Ball [facility] Start: 08-01-2023 End: 08-01-2023 ambulatory Cecilio Ball Other [employer] Other Start: 08-01-2023 Office outpatient vi sit 15 minutes Cecilio Ball [facility] Start: 07-17-2023 End: 07-17-2023 ambulatory Cecilio Ball Other [employer] Other Start: 07-17-2023 Office outpatient vi sit 15 minutes Cecilio Ball [facility] Start: 07-10-2023 End: 07-10-2023 ambulatory Cecilio Ball Other [employer] Other Start: 07-10-2023 Office outpatient vi sit 15 minutes Cecilio Ball [facility] Start: 06-20-2023 End: 06-20-2023 ambulatory Cecilio Ball Other [employer] Other Start: 06-20-2023 Office outpatient vi sit 25 minutes Cecilio Benjamin [facility] Start: 06-15-2023 End: 06-15-2023 ambulatory Cecilio Benjamin Other [employer] Other Start: 06-15-2023 Telephone encounter Cecilio Benjamin [facility] Start: 05-30-2023 End: 05-30-2023 ambulatory Cecilio Benjamin Other [employer] Other Start: 05-30-2023 Office outpatient vi sit 15 minutes Cecilio Benjamin [facility] Start: 03-20-2023 Telephone encounter David Jaeger DO Work Phone: [facility] Comment on above: Follow Up Phone Call Start: 03-15-2023 End: 03-15-2023 ambulatory DAVID JAEGER Facility:[facility] Start: 02-27-2023 Orders Only David Marcos DO Work Phone: Procedures Comment on above: Pseudoclaudication s yndrome (Primary Dx); Lumbar radiculopathy Start: 02-26-2023 Telephone encounter David Jaeger DO Work Phone: [facility] Comment on above: Procedure Start: 02-19-2023 Telephone encounter David Jaeger DO Work Phone: [facility] Comment on above: Appointment Start: 02-14-2023 End: 02-14-2023 ambulatory Cecilio Benjamin Other [employer] Other Start: 02-14-2023 Patient encounter procedure Cecilio Benjamin [facility] Start: 02-13-2023 End: 02-13-2023 ambulatory Cecilio Benjamin Other [employer] Other Start: 02-13-2023 Telephone encounter Cecilio Benjamin [facility] Start: 02-08-2023 End: 02-08-2023 ambulatory Cecilio Benjamin Other [employer] Other Start: 02-08-2023 Telephone encounter Cecilio DENISE [facility] Start: 02-01-2023 End: 02-01-2023 ambulatory Jose Enrique Leblanc II Other [employer] Other Start: 02-01-2023 Office outpatient vi sit 25 minutes Jose Enrique Walton II [facility] Start: 12-11-2022 End: 12-11-2022 ambulatory Cecilio Benjamin Other [employer] Other Start: 12-11-2022 Office outpatient vi sit 15 minutes Cecilio Benjamin [facility] Start: 11-09-2022 End: 11-09-2022 ambulatory Jose Enrique Leblanc II Facility:[facility] Start: 11-09-2022 End: 11-09-2022 Patient encounter procedure MD Jose Enrique Leblanc II Work Phone: [facility] Start: 11-09-2022 End: 11-09-2022 ambulatory MD Jose Enrique Leblanc II Work Phone: [facility] Work Phone: Start: 11-09-2022 Office outpatient ne w 45 minutes Jose Enrique Benji II [facility] Start: 11-09-2022 Office outpatient vi sit 15 minutes Cecilio Benjamin [facility] Start: 11-05-2022 End: 11-05-[address] CECILIO BENJAMIN Facility:[facility] Start: 10-12-2022 End: 10-12-2022 ambulatory Cecilio Benjamin Other [employer] Other Start: 10-12-2022 Office outpatient vi sit 25 minutes Cecilio Benjamin [facility] Start: 09-27-2022 End: 09-27-2022 ambulatory Cecilio Benjamin Other [employer] Other Start: 09-27-2022 Telephone encounter Cecilio DENISE [facility] Start: 09-26-2022 End: 09-27-[address] CECILIO BENJAMIN Facility:[facility] Start: 08-25-2022 End: 08-25-2022 ambulatory Cecilio Benjamin Other [employer] Other Start: 08-25-2022 Telephone encounter Cecilio [facility] Start: 08-10-2022 End: 08-10-[address] CECILIO BENJAMIN Facility:[facility] Start: 02-09-2022 End: 02-10-[address] CECILIO BENJAMIN Facility:[facility] Start: 12-06-2021 End: 12-07-[address] CECILIO BENJAMIN Facility:[facility] Start: 01-22-2018 End: 04-20-2018 Patient encounter [id number] AUGUSTINE BRANDON [place] Procedures Date Procedure Procedure Detail Performing Clinician Start: 11-09-2022 Pelvis X-ray MD Jose Enrique Leblanc II Work Phone: Start: 11-09-2022 Radiologic examinati on of knee MD Jose Enrique Leblanc II Work Phone: Plan of Treatment Date Care Activity Detail Author Start: 01-22-2024 Patient referral [facility] Work Phone: Start: 04-20-2023 Influenza vaccination INFLUENZA (#1) [facility] Start: 10-01-2022 COVID-19 VACCINE (5 - Moderna series) COVID-19 VACCINE (5 - Moderna series) [facility] Start: 08-20-2022 ADVANCE DIRECTIVE DISCUSSION ADVANCE DIRECTIVE DISCUSSION [facility] Start: 08-20-2022 DEPRESSION ASSESSMENT DEPRESSION ASS ESSMENT [facility] Start: 09-19-2021 COVID-19 VACCINE (4 - Booster for Moderna series) COVID-19 VACCINE (4 - Booster for Moderna series) [facility] Start: 09-19-2021 COVID-19 VACCINE (4 - Moderna series) COVID-19 VACCINE (4 - Moderna series) [facility] Start: 01-02-2021 DIABETES SCREEN DIABETES SCREEN [facility] Start: 1991 SHINGRIX VACCINE (1 of 2) SHINGRIX VACCINE (1 of 2) [facility] Start: 1960 Urine microalbumin profile DTAP,TDAP,TD (1 - Tdap) [facility] Start: [address] [facility] Start: 1947 PNEUMOCOCCAL: 65+ (1 - PCV) PNEUMOCOCCAL: 65+ (1 - PCV) [facility] Comprehensive metabo lic 2000 panel - Serum or Plasma [facility] Patient referral [facility] Work Phone: SPINE INTERVENTION PROCEDURE SPINE INTERVENTION PROCEDURE Procedures Routine Spinal stenosis, lumbar region with neurogenic claudication Lumbar radiculopathy, chronic Ordered: 02/19/2023 [facility] Work Phone: Comment on above: Ordered: 02/19/2023 [facility] Immunization Date Immunization Notes Care Provider Coleman bermudez 05-30-2023 COVID-19 Vaccine Moderna - Documentation Purposes Only Cecilio Benjamin Other [facility] 05-30-2023 influenza virus vaccine, unspecified formulation [facility] 05-30-2023 influenza, high dose seasonal, preservative-free Cecilio Benjamin Other [facility] [employer] Other 06-13-2022 influenza virus vaccine, split virus (incl. purified surface antigen) Cecilio Benjamin Other [facility] [facility] [employer] Other 06-13-2022 influenza virus vaccine, unspecified formulation [facility] 06-13-2022 influenza, high dose seasonal, preservative-free Jose Enrique Benji II Other [facility] [employer] Other 05-31-2022 COVID-19 Pfizer (bivalent) Jose Enrique Leblanc II Other [facility] 05-31-2022 COVID-19 Pfizer (Pediatric) Cecilio Benjamin Other [facility] 07-25-2021 COVID-19 Vaccine Moderna - Documentation Purposes Only Jose Enrique Guerrerole II Other [facility] 05-03-2021 zoster vaccine recombinant Jose Enrique Walton II Other [facility] 05-03-2021 zoster vaccine, live Benjami n Ball Other [facility] 01-28-2021 zoster vaccine recombinant Jose Enrique Benji II Other [facility] 01-28-2021 zoster vaccine, live Benjami n Ball Other [facility] 10-25-2020 COVID-19 Vaccine Moderna - Documentation Purposes Only Jose Enrique Walton II Other [facility] 09-27-2020 COVID-19 Vaccine Moderna - Documentation Purposes Only Jose Enrique Benji II Other [facility] 05-24-2020 influenza virus vaccine, split virus (incl. purified surface antigen) Cecilio Benjamin Other [facility] [employer] Other 05-24-2020 influenza virus vaccine, unspecified formulation [facility] 01-03-2019 diphtheria, tetanus toxoids and acellular pertussis vaccine, unspecified formulation Cecilio Benjamin Other [facility] 12-25-2018 pneumococcal polysaccharide vaccine, 23 valent Jose Enrique Walton II Other [facility] 04-30-2018 influenza virus vaccine, split virus (incl. purified surface antigen) Cecilio Benjamin Other [employer] Other 04-30-2018 influenza virus vaccine, unspecified formulation [facility] 04-09-2017 influenza virus vaccine, split virus (incl. purified surface antigen) Cecilio Benjamin Other [employer] Other 04-09-2017 influenza virus vaccine, unspecified formulation [facility] 05-31-2016 zoster vaccine, live Jose Enrique Walton II Other [facility] 05-13-2016 influenza virus vaccine, split virus (incl. purified surface antigen) Cecilio Benjamin Other [employer] Other 05-13-2016 influenza virus vaccine, unspecified formulation [facility] 05-09-2015 influenza virus vaccine, split virus (incl. purified surface antigen) Cecilio Benjamin Other [employer] Other 05-09-2015 influenza virus vaccine, unspecified formulation [facility] 03-06-2015 pneumococcal conjuga te vaccine, 13 valent Jose Enrique Benji II Other [facility] 05-07-2014 tetanus and diphther ia toxoids, adsorbed, preservative free, for adult use (5 Lf of tetanus toxoid and 2 Lf of diphtheria toxoid) Cecilio Benjamin Other [facility] 04-23-2013 tetanus and diphther ia toxoids, adsorbed, preservative free, for adult use (5 Lf of tetanus toxoid and 2 Lf of diphtheria toxoid) Cecilio Benjamin Other [facility] 08-21-2012 pneumococcal polysaccharide vaccine, 23 valent Cecilio Benjamin Other [facility] 12-12-2011 zoster vaccine, live Jose Enrique Walton II Other [facility] Payers Date Payer Category Payer Self-pay 2022 Unknown [id number] 2018 Medicare [id number] 2006 Medicare [id number] 2006 Unknown [id number] 1959 Medicare [id number] 2.1 [id number] 1959 Unknown [id number] 2.16. [id number] 1941 Unknown [id number] 2.16.84 0.1.154707.3.579.2.593 1941 Unknown [id number] 2.16.84 0.1.316885.3.579.2.593 1941 Unknown [id number] 2.16.84 0.1.455422.3.579.2.593 1941 Unknown [id number] 2.16.84 0.1.917835.3.579.2.593 1941 Unknown [id number] 2.16.84 0.1.047723.3.579.2.593 1941 Unknown [id number] 2.16. 840.1.398353.3.579.2.196 1941 Unknown [id number] 2.16. 840.1.648223.3.579.2.196 1941 Unknown [id number] 2.16. 840.1.458687.3.579.2.196 1941 Unknown [id number] 2.16. 840.1.179988.3.579.2.196 1941 Unknown [id number] 2.16. 840.1.324631.3.579.2.196 1941 Unknown [id number] 2.16. 840.1.401635.3.579.2.196 1941 Unknown [id number] 2.16. 840.1.251424.3.579.2.196 1941 Unknown [id number] 2.16. 840.1.069859.3.579.2.196 1941 Unknown [id number] 2.16. 840.1.372110.3.579.2.196 Unknown [id number] 2.16.8 40.1.295051.3.579.2.531 Social History Date Type Detail Facility Start: 05-09-2021 End: 03-15-2023 Sex [address]igned At [facility] Start: 1940 Sex Assigned At Male [facility] Start: 06-13-2017 End: 01-22-2024 Tobacco smoking status NHIS Never smoked tobacco [facility] Start: 06-13-2017 Tobacco use and exposure Smokeless tobacco non-user [facility] Start: 05-09-2021 Alcohol intake Current drinke r of alcohol (finding) [facility] Start: 12-11-2017 Alcohol Comment [employer] in coffee [facility] Start: 1940 Sex Assigned At Not on file [facility] Start: 05-09-2021 End: 03-15-2023 History of Social function [facility] Adult Depression Screening Assessment [address] [facility] Medical Equipment Procedure Code Equipment Code Equipment Origin al Text Equipment Identifier Dates Huddy Swivelock Tenodesis 8mm Biocomposite 19.5mm Suture [place] Eyelet - [id number] Start: 06-29-2017 Sleeve V40 +0mm Offset Crowder Taper Titanium Adapter Hip - [id number] Start: 01-01-2018 Screw [employer]ident Secur-Fit Torx 6.5mm Titanium 20mm Bone Sterile Acetabular - [id number] Start: 01-01-2018 Clinical Notes 08-25-2022 to 01-22-2024 Note Date & Type Note Facility 01-22-2024 Evaluation note Diagnosis Onset Date Chronic bronchitis, simple a cute Chronic kidney disease, stage 3a acute Elevated cholesterol acute Generalized anxiety disorder acute Hypertension acute Lumbar spondylolysis acute Obstructive sleep apnea acut e Medicare annual wellness visit, subsequent noneactive [facility] Work Phone: [phone] Evaluation note* Encounter Date Diagnosis Assessment Notes [...] and clinically improving, no further treatment necessary [employer] Other 02-02-2024 Evaluation note* Encounter Date Diagnosis Assessment Notes Treatment Notes Treatment Clinical Notes Sep, Carotid bruit, unspecified laterality (ICD-10 - R09.89) [employer] Other 01-23-2024 Evaluation note* Encounter Date Diagnosis [...] tid Initiate Prednisone _update office on Sunday [employer] Other 01-15-2024 Evaluation note* Encounter Date Diagnosis Assessment Notes Treatment Notes Treatment Clinical Notes Aug, JONATHAN (generalized anxiety disorder) (ICD-10 - F41.1) [employer] Other 12-13-2023 Evaluation note* Encounter Date Diagnosis [...] best 2/3 readings w/ goal < 135/85 [employer] Other 11-28-2023 Evaluation note* Encounter Date Diagnosis [...] daily for blisters and ulcerations. Moisturizers daily [employer] Other 11-21-2023 Evaluation note* Encounter Date Diagnosis [...] Call if develop increased pain or erythema [employer] Other 11-01-2023 Evaluation note* Encounter Date Diagnosis [...] use, the patient reduces the risk for CA, CVA, HTN, cardiac dysrhythmias and sudden cardiac [...] very active. No change in medical treatment [employer] Other 10-27-2023 Evaluation note* Encounter Date Diagnosis Assessment Notes Treatment Notes Treatment Clinical Notes May, JONATHAN (generalized anxiety disorder) (ICD-10 - F41.1) [employer] Other 10-11-2023 Evaluation note* Encounter Date Diagnosis [...] They may safely use Tylenol as needed. [employer] Other 08-01-2023 Miscellaneous Notes* Telephone Encounter - Neida Porter MA - 03/20/2023 12:26 PM EDT DATE OF SERVICE: 03/15/2023 PATIENT'S PHONE NUMBERS: [phone] (home) OR [email or web address] PROVIDER: Dr. Jaeger PROCEDURE: Elective Pain Management Procedure Left message on machine Asked pt to call back and speak with the specialty triage nurse with update. Please obtain percentage better and the duration of improvement. Please inquire if there were any problems afterwards. Neida Brink [facility] Miscellaneous Notes* Telephone Encounter - Linda Knox LPN - 02/26/2023 4:42 PM EDT Spoke to patient in reguards to pre procedure instructions. 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 Pt advised to arrive 30 min [...] take. Advised on location of ASC-2nd floor [facility] Pt will receive a follow up call several days after by a senior engineering team leader. If you experience any increase in weakness, difficulty walking or significant increase in pain thatlast more than 4 hours, please proceed to the Emergency Room and tell them you had a spine procedure done recently. Additionally, call us and notify us of these symptoms. Please call [phone] if you have any questions. Pt verbalized understanding. [facility] Miscellaneous Notes* Telephone Encounter - Linda Knox LPN - 02/19/2023 11:57 AM EDT Order approved [facility] instructions. Daughter given scheduling number [phone] Pt must have a crude oil driver. Pt advised to arrive 30 min prior to the time given by the key maker. Pt advised will also receive a call the day before from the surgery center to confirm date/time. Pt can eat and drink as normal. and Pt can take medications as normal. No alcohol 24 hours prior. Pt is on ASA.- 81 mg okay to take. and must Advised on location of ASC-2nd floor [facility] Pt will receive a follow up call several days after by a senior engineering team leader. If you experience any increase in weakness, difficulty walking or significant increase in pain thatlast more than 4 hours, please proceed to the Emergency Room and tell them you had a spine procedure done recently. Additionally, call us and notify us of these symptoms. Please call [phone] if you have any questions. Pt verbalized [...] call Celi as patient cannot hear well [phone] Patient has been identified by name and birthdate. Duration of symptoms: N/A Person calling: daughter: Celi Call patient at: N/A [phone] (home) [phone] (cell) Was an appointment scheduled: No Closing statement: Results or non-symptom based questions: Thank you for calling [facility], your call will be returned within the next business day. Camilla Jarrell Pss documented in this [facility]06-[facility]23 Evaluation note* Encounter Date Diagnosis Assessment [...] use, the patient reduces the risk for CA, CVA, HTN, cardiac dysrhythmias and sudden cardiac [...] (ICD-10 - F41.1) Healthy diet, keep active [employer] Other 06-22-2023 Evaluation note* Encounter Date Diagnosis Assessment Notes Treatment Notes Treatment Clinical Notes Jan, Elevated cholesterol (ICD-10 - E78.00) Jan, Stage 3a chronic kidney disease (ICD-10 - N18.31) Jan, Primary hypertension (ICD-10 - I10) Jan, Screening PSA (prostate specific antigen) (ICD-10 - Z12.5) Jan, High risk medication use (ICD-10 - Z79.899) [employer] Other 06-15-2023 Evaluation note* Encounter Date Diagnosis [...] this time 6. Follow up as needed [employer] Other 04-24-2023 Evaluation note* Encounter Date Diagnosis [...] use of statin, experiencing ADR and stopped [employer] Other 03-23-2023 Evaluation note* Encounter Date Diagnosis [...] - M17.12) Quad exercises, ice/heat and Tylenol [employer] Other 03-23-2023 Evaluation note* Encounter Date Diagnosis [...] injection well. 6. Follow up as needed [employer] Other 02-23-2023 Evaluation note* Encounter Date Diagnosis [...] use, the patient reduces the risk for CA, CVA, HTN, cardiac dysrhythmias and sudden cardiac [...] tract symptoms (ICD-10 - N40.1) Symptoms tolerable [employer] Other 02-08-2023 Evaluation note* Encounter Date Diagnosis Assessment Notes Treatment Notes Treatment Clinical Notes Sep, Elevated cholesterol (ICD-10 - E78.00) Sep, Stenosis of right carotid artery (ICD-10 - I65.21) Sep, Retinal hemorrhage of right eye (ICD-10 - H35.61) [employer] Other 01-06-2023 Evaluation note* Encounter Date Diagnosis Assessment Notes Treatment Notes Treatment Clinical Notes Aug, Carotid bruit, unspecified laterality (ICD-10 - R09.89) [employer] Other Evaluation noteNo assessment information available [facility] Work Phone: Evaluation noteNo InformationNort Anest[facility] Other Evaluation note* Diagnosis Spinal stenosis, lumbar region with neurogenic claudication- Primary Lumbar radiculopathy, chronic Thoracic or lumbosacral neuritis or radiculitis, unspecified [facility] Diagnosis Pseudoclaudication syndrome- Primary Spinal stenosis, lumbar region, with neurogenic claudication Lumbar radiculopathy Thoracic or lumbosacral neuritis or radiculitis, unspecified Pseudoclaudication syndrome Spinal stenosis, lumbar region, with neurogenic claudication Lumbar radiculopathy Thoracic or lumbosacral neuritis or radiculitis, unspecified [facility]* Diagnosis Onset Date Resolution Status Chronic bronchitis, simple a cute Chronic kidney disease, stage 3a acute Elevated cholesterol acute Generalized anxiety disorder acute Hypertension acute Lumbar spondylolysis acute Obstructive sleep apnea acut e [facility] Work Phone: History general Narrative - Reported* [...] JANELLE 06/2017 Hospitalization History see surgical history [employer] Other Hospital Discharge instructionsAmbulatory Orders* Referral to Pain Management Location: None [facility] Work Phone: Summary Purpose Family [...] section and content) DATE CREATED AUTHOR 02/06/[address] [facility] DATE CREATED AUTHOR AUTHOR'S ORGANIZ ATION 06/10/2018 [facility] DATE CREATED AUTHOR AUTHOR'S ORGANIZ ATION 11/06/2022 [facility] DATE CREATED AUTHOR AUTHOR'S ORGANIZ ATION 12/21/2022 [facility] DATE CREATED AUTHOR AUTHOR'S ORGANIZ ATION 03/15/2023 [facility] DATE CREATED AUTHOR AUTHOR'S ORGANIZ ATION 03/22/2023 [facility] DATE CREATED AUTHOR AUTHOR'S ORGANIZ ATION 07/20/20[facility] REASON FOR VISIT (unrecogniz ed section [...] Enrique Leblanc II, MD Attending Provider Active [employer] Relationship Specialty Start Date End Date Cecilio Benjamin DO PCP - General Internal Medicine 09/04/13 [employer] Relationship Specialty Start Date End Date Cecilio Benjamin DO PCP - General Internal Medicine 09/04/13 [employer] Relationship Specialty Start Date End Date Cecilio Benjamin DO PCP - General Internal Medicine 09/04/13 [employer] Relationship Specialty Start Date End Date Cecilio [...] or prosecute any alcohol or drug abuse patient.[facility] the event this information is protected by the Federal Confidentiality of Alcohol and Drug Abuse Patient Records regulations: The Federal rules restrict any use of the information to criminally investigate or prosecute any alcohol or drug abuse patient.[facility] HospitalIn the event this information is protected by the Federal Confidentiality of Alcohol and Drug Abuse Patient Records regulations: The Federal rules restrict any use of the information to criminally investigate or prosecute any alcohol or drug abuse patient.[facility] Hospital[facility] the event this information is protected by the Federal Confidentiality of Alcohol and Drug Abuse Patient Records regulations: The Federal rules restrict any use of the information to criminally investigate or prosecute any alcohol or drug abuse patient.[facility] FOR RECORDS PERTAINING TO PATIENTS WHO [...] BE BASED ON THE PRIMARY CLINICAL RECORDS. [facility]. provides no warranty or guarantee of the accuracy or completeness of information in this document.
[2024-08-04 11:24] VITALS: BP 147/63; BP 151/69; PULSE 62; PULSE 63; O2SAT 98; O2SAT 99
--- NOTE | 2024-08-04 11:29 | W.PM.PROCNOT ---
Date of procedure: 08/04/24 Pre-op diagnosis: Pain due to lumbar stenosis with neurogenic claudication Post-op diagnosis: same as pre-op Procedure: Procedure: Bilateral L4-5 transforaminal epidural steroid injection Medications: Bupivacaine 0.25% 2cc, lidocaine 2% 1cc, depomedrol 80mg The patient was seen and examined in the preoperative holding area.? Informed consent was obtained and placed on the chart.? Patient was brought to the medical procedure unit and placed in the prone position where a timeout was completed verifying the correct patient, procedure site, position, and planned special equipment using sterile aseptic technique.? Under direct fluoroscopic visualization a 25-gauge Quincke tipped spinal needle was advanced at level left L4-5 to the designated neural foramen where contrast dye was injected to show adequate spread.? There was no evidence of vascular or adverse uptake.? Epidural spread was appreciated.? The above-mentioned injectate was then placed in a 1.5 mL aliquot preceded by negative aspiration.? The needle was removed. The same procedure, at the same level, was completed on the opposite side. ? Patient was taken to the postprocedural recovery area and monitored for an appropriate length of time before found suitable for discharge in the accompaniment of a responsible adult. Anesthesia: Local Surgeon: Maddie Villalobos Pathology: none sent Condition: stable Disposition: no change
[2024-08-04] MEDS: BUPIVACAINE HCL 0.25% PF 25 MG/10 ML VIAL INJ (11:30)
[2024-08-04] MEDS: LIDOCAINE HCL 2% 400 MG/20 ML MDV 3 ML INJ (11:30)
[2024-08-04] MEDS: METHYLPREDNISOLONE ACETATE 80 MG/ML VIAL INJ (11:30)
[2024-08-04] MEDS: 0.9 % SODIUM CHLORIDE 10 ML SYRINGE - SALINE FLUSH INJ (11:30)
[2024-08-04] MEDS: IOHEXOL 240 MG/ML - 10 ML VIAL 12 MG INJ (11:30)
== END 2024-08-04 11:35 | disposition home or self-care (01) ==
LOC: SURGOUT 10:47
PROVIDERS: PCP Internal Medicine; Visit Provider Anesthesiology
DX: M48.062 Spinal stenosis, lumbar region with neurogenic claudication (principal)
CPT/HCPCS: 64483; J0665; J1010; Q9966

== ENCOUNTER 2024-08-18 12:09 | Outpatient (OUT) | payer MEDICARE, OTHER, SELFPAY ==
--- OUTSIDE RECORDS SUMMARY | 2024-08-18 12:21 | XMS_ITS | CCD ---
Author Organization [facility] Care Team Providers Care Corsetier Name Role Phone SOURAV CECILIO~[phone] UNKNOWN Unavailable Unavailable BETH GOODEN Unavailable Unavailable [...] Unavailable Griselda WHARTON, Maddie Carreno Attending Unavailable Gieditis , Maddie Carreno Attending Unavailable Giedraitis , Maddie Carreno Attending Unavailable Gieditis , Maddie Carreno Attending Unavailable Gieditis , Maddie Carreno Attending Unavailable Gieditis , Maddie Carreno Attending Unavailable Githiitis , Maddie Carreno Attending Unavailable Allergies Allergy Classification Reported Allergen(s) Allergy Type Date of Onset Reaction(s) Facility (7 sources) bacitracin; Translations: [bacitracin] Drug Allergy 09-11-2013 Unknown [facility] Repository (19 sources) Albuterol Drug Allergy Unknown [email or web address] Other (20 sources) HMG-CoA reductase inhibitor Drug allergy Unknown [email or web address] Other Medications Current Medications Medication Drug Class(es) Dates Sig (Normalized) Sig (Original) acetaminophen 325 mg oral tablet (20 sources) Start: 10-17-2023 take 2 tablets by mouth every eight hours as needed Acetaminophen Active 325 MG PO Every 8 hours October 17, 2023 1:00am 2 tablets by mouth orally every 8 hours PRN Start: 01-02-2018 take 2 tablets by mo ut every eight hours acetaminophen (TYLENOL) 500 mg [...] April 02, 2024 1:34pm Start: 02-08-2021 nabumetone ( LAFEN) 500 mg tablet omeprazole 20 mg [...] Drug Class(es) Dates Sig (Normalized) Sig (Original) [id number] 200 actuat albuterol 0.09 mg/actuat metered dose [...] Comment on above: Take 4 tablets by [facility] 1 hour prior to procedure [...] Comment on above: Take 1 tablet by [facility] twice daily. (Blood thinner to prevent [...] Comment on above: Take 1 capsule by [facility] twice daily. 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 During your visit today, we recorded the following information about you: Neida Porter MA 03/20/2023 12:30 PM Signed DATE OF SERVICE: 03/15/2023 PATIENT'S PHONE NUMBERS: [phone] (home) OR @[facility]@ PROVIDER: Dr. Jaeger PROCEDURE: Elective Pain [...] work Requesting to call his CELL ONLY [phone] what to do next Leave Detailed messages [...] of spine injection schedulers to call at [phone]. Patient will call if he wants to schedule another injection. 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 Author Type: Physician Type: [...] a procedure / surgery at a [facility]. Patient and I have discussed in detail [...] surgery/procedure as indicated on the consent form. [facility] approved time out was performed identifying the site, side and level of procedure prior to start of procedure. [facility] - ELECTIVE PROCEDURE Lumbar Transforaminal Epidural [...] the entire procedure. David Jaeger DO, MBA [facility] 02-26-2023 CHELLE Telephone (SPJEREMYAV) RUPERTO THORPE ([id number]) 1940 [facility]* Date Time Provider Department 02/26/23 DAVID JAEGER During your visit today, we recorded the following information about you: Linda Knox LPN 02/26/2023 4:49 PM Signed Spoke to patient in reguards to pre procedure instructions. Pt must have a trencher driver. Pt advised to arrive 30 min [...] take. Advised on location of [facility] Pt will receive a follow up call several days after by a velvet steamer. If you experience any increase in weakness, difficulty walking or significant increase in pain that last more than 4 hours, please proceed to the Emergency Room and tell them you had a spine procedure done recently. Additionally, call us and notify us of these symptoms. Please call [phone] if you have any questions. Pt verbalized [...] mg by mouth at bedtime as needed (2 tab). - CALCIUM CARBONATE/VITAMIN D3 (VITAMIN D-3 [...] Status:Closed by LINDA KNOX LPN on 02/26/23 [facility] Unique 02-19-2023 CNPN Telephone (SPNMAV) RUPERTO THORPE ([id number]) 1940 [facility] Co* Date Time Provider [...] call Celi as patient cannot hear well [phone] Patient has been identified by name and birthdate. Duration of symptoms: N/A Person calling: daughter: Celi Rhodes patient at: N/A [phone] (home) [phone] (cell) Was an appointment scheduled: No Closing statement: Results or non-symptom based questions: Thank you for calling [facility], your call will be returned within the next business day. Camilla Jarrell Pss Linda Knox LPN 02/19/2023 9:45 AM Signed Spine Intervention order formatted for review Linda Knox LPN 02/19/2023 11:59 AM Signed Order approved Spoke to daughter in reguards to pre procedure instructions. Daughter given scheduling number [phone] Pt must have a trencher driver. Pt advised to arrive 30 min prior to the time given by the tabulating supervisor. Pt advised will also receive a call the day before from the surgery center to confirm date/time. Pt can eat and drink as normal. and Pt can take medications as normal. No alcohol 24 hours prior. Pt is on ASA.- 81 mg okay to take. and must Advised on location of [facility] Pt will receive a follow up call several days after by a velvet steamer. If you experience any increase in weakness, difficulty walking or significant increase in pain that last more than 4 hours, please proceed to the Emergency Room and tell them you had a spine procedure done recently. Additionally, call us and notify us of these symptoms. Please call [phone] if you have any questions. Pt verbalized understanding. 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 Normal [facility] XR knee LT 4V*on 11-09-2022 XR knee LT 4V* [facility] [place] [address] [place] [address] XRay Report Signed Patient: Ruperto Thorpe MR#: [id number] 5 : 1940 Acct:[id number] Age/Sex: 82 / M ADM Date: 11/09/22 Loc: [facility] Room: Type: [facility] Attending Dr: Jose Enrique Leblanc [...] Darren Yuen M.D.11/09/2022 5:03 PM Dictation Location: [place] [address] Transcribed By: [facility] 11/09/221702 Dictated By: Darren Yuen II, MD 11/09/221700 Signed By: 11/09/221702 Normal [facility] XR knee LT 4V* [facility] [email or web address] Other XR knee LT 4V* [facility] [email or web address] Other XR knee LT 4V* [address] [facility] [email or web address] Other XR knee LT 4V* [place] [address] No rt [email or web address] Other XR knee LT 4V* XRay Report [employer] Other XR knee LT 4V* Signed [employer] Other XR knee LT 4V* Patient: Ruperto Thorpe MR#: [id number] [email or web address] Other XR knee LT 4V* 5 [employer] Other XR knee LT 4V* : 1940 Acct:[id number] [email or web address] Other XR knee LT 4V* Age/Sex: 82 / M ADM Date: 11/09/22 [email or web address] Other XR knee LT 4V* Loc: [facility] Room: Type : [facility] [email or web address] Other XR knee LT 4V* Attending Dr: Jose Enrique Leblanc II, MD [email or web address] Other XR knee LT 4V* Copies to: Jose Enrique Leblanc MD [email or web address] Other XR knee LT 4V* Ordering Provider: Jose Enrique Leblanc MD [email or web address] Other XR knee LT 4V* Date of Service: 11/09/22 [email or web address] Other XR knee LT 4V* XR/XR knee LT 4V*: Acute pain of left knee [email or web address] Other XR knee LT 4V* XR knee LT 4V* 11/09/2022 3:15 PM [email or web address] Other XR knee LT 4V* SIGNS AND SYMPTOMS: Acute pain of left knee [email or web address] Other XR knee LT 4V* PROTOCOL: Frontal, lateral, oblique, and sunrise views of the left knee [email or web address] Other XR knee LT 4V* COMPARISON: 11/05/2022 [email or web address] Other XR knee LT 4V* FINDINGS: [employer] [place] Other XR knee LT 4V* There is similar narrowing of the weightbearing joint spaces with chondrocalcinosis of the menisci [email or web address] Other XR knee LT 4V* suggesting underlyin g CPPD. There is narrowing of the patellofemoral joint space with spurring at [email or web address] Other XR knee LT 4V* the superior pole of patella. There is a small joint effusion. No soft tissue swelling. No acute [email or web address] Other XR knee LT 4V* displaced fracture. Vascular calcifications are present posteriorly. [email or web address] Other XR knee LT 4V* XR/XR knee LT 4V* [email or web address] Other XR knee LT 4V* IMPRESSION: [employer] Other XR knee LT 4V* Tricompartmental degenerative changes are noted in the left knee with a small joint effusion. [email or web address] Other XR knee LT 4V* There is chondrocalcinosis of the menisci suggesting underlying CPPD. [email or web address] Other XR knee LT 4V* Impression dictated by: Darren Yuen M.D.11/09/2022 5:03 PM [email or web address] Other XR knee LT 4V* Dictation Location: [place] [address] [email or web address] Other XR knee LT 4V* Transcribed By: COLIN 11/09/221702 [email or web address] Other XR knee LT 4V* Dictated By: Darren Yuen II, MD 11/09/221700 [email or web address] Other XR knee LT 4V* Signed By: [employer] Other XR knee LT 4V* 11/09/221702 [employer] Other XR pelvis 1-2Von 11-09-2022 XR pelvis 1-2V [facility] [place] [address] [place] [address] XRay Report Signed Patient: Ruperto Thorpe MR#: [id number] 5 : 1940 Acct:[id number] Age/Sex: 82 / M ADM Date: 11/09/22 Loc: [facility] Room: Type: [facility] Attending Dr: Jose Enrique Leblanc [...] Darren Yuen M.D.11/09/2022 5:01 PM Dictation Location: [facility] Transcribed By: COLIN 11/09/221700 Dictated By: Darren Yuen II, MD 03/23/23 1700 Signed By: 11/09/22 1701 [facility] XR pelvis 1-2V XR/XR pelvis 1-2V: Acute pain of left knee [email or web address] Other XR pelvis 1-2V XR pelvis 1-2V 11/09/2022 3:15 PM [email or web address] Other XR pelvis 1-2V SIGNS AND SYMPTOMS: Left knee pain [email or web address] Other XR pelvis 1-2V PROTOCOL: Frontal radiograph of the chest [email or web address] Other XR pelvis 1-2V COMPARISON: None [employer] Other XR pelvis 1-2V There is mild narrowing of the left hip joint space with subcortical cystic change on both sides of [email or web address] Other XR pelvis 1-2V the joint along the acetabular there is chondrocalcinosis of the labrum overlying the superior [email or web address] Other XR pelvis 1-2V acetabular rim and superior lateral femoral head. The bony ring of the pelvis is intact. There is [email or web address] Other XR pelvis 1-2V total right hip arthroplasty. Degenerative changes are noted in the sacroiliac joints. No fracture [email or web address] Other XR pelvis 1-2V is [employer] Other XR pelvis 1-2V XR/XR pelvis 1-2V [email or web address] Other XR pelvis 1-2V Degenerative changes are noted in the left hip with findings suspicious for previous labral [email or web address] Other XR pelvis 1-2V pathology. [employer] Other XR pelvis 1-2V Postoperative change s are noted in the right hip with total right hip arthroplasty hardware. [email or web address] Other XR pelvis 1-2V Impression dictated by: Darren Yuen M.D.11/09/2022 5:01 PM [email or web address] Other XR pelvis 1-2V Transcribed By: COLIN 11/09/22 170 [email or web address] Other XR pelvis 1-2V Dictated By: Darren Yuen II, MD 11/09/22 170 [email or web address] Other XR pelvis 1-2V 11/09/22 170 [employer] Other XR KNEE LT 4V or >on [...] There is chondrocalcinosis. Soft tissues: Unremarkable. IMPRESSION: Bsbj-mz-qpaoxodf osteoarthritis as described above. Chondrocalcinosis. No acute fracture or dislocation. Electronically authenticated by: CHUCK JONES Date: 2022-11-05 11:19 Normal [facility] US CAROTID ART BILon 023 US [...] JONAS MCLEOD Date: 2022-09-26 10:58 Normal [facility] CBC AUTO DIFFon 08-10-2022 BASO # 0.0 103/ul Normal 0.0-0.1 [facility] Comment on above: Performed By: #### C BC #### [facility] [address] [place] [address] Dr. Alexis Brink Basophils/100 WBC (Bld) 0.7 % Normal 0.2-2.0 [facility] Comment on above: Performed By: #### C BC #### [facility] [address] [place] [address] Dr. Alexis Brink EO # 0.3 103/ul Normal 0.0-0.7 [facility] Comment on above: Performed By: #### C BC #### [facility] [address] [place] [address] Dr. Alexis Brink Eosinophils/100 WBC (Bld) 6.1 % Normal 0.9-7.0 [facility] Comment on above: Performed By: #### C BC #### [facility] [address] [place] [address] Dr. Alexis Brink Erythrocyte distribution width (RBC) [Ratio] 12.1 % Normal 11.0-15.0 [facility] Comment on above: Performed By: #### C BC #### [facility] [address] [place] [address] Dr. Alexis Brink Hematocrit (Bld) [Volume fraction] 44.2 % Normal 42.0-54.0 [facility] Comment on above: Performed By: #### C BC #### [facility] [address] [place] [address] Dr. Alexis Brink Hemoglobin (Bld) [Mass/Vol] 14.9 g/dL Normal 14.0-18.0 [facility] Comment on above: Performed By: #### C BC #### [facility] [address] [place] [address] Dr. Alexis Brink IG # 0.01 10e3/ul Normal 0.00-0.03 [facility] Comment on above: Performed By: #### C BC #### [facility] [address] [place] [address] Dr. Alexis Brink IG % 0.2 % Normal 0.0-0.5 [facility] Comment on above: Performed By: #### C BC #### [facility] [address] [place] [address] Dr. Alexis Brink LYMPH # 1.2 103/ul Normal 1.2-3.8 [facility] Comment on above: Performed By: #### C BC #### [facility] [address] [place] [address] Dr. Alexis Brink Lymphocytes/100 WBC (Bld) 21.3 % Normal 20.5-60.0 [facility] Comment on above: Performed By: #### C BC #### [facility] [address] [place] [address] Dr. Alexis Brink MANUAL DIFF REQ NO Normal [facility] Comment on above: Performed By: #### C BC #### [facility] [address] [place] [address] Dr. Alexis Brink MCH (RBC) [Entitic mass] 30.7 pg Normal 25.9-34.0 [facility] Comment on above: Performed By: #### C BC #### [facility] [address] [place] [address] Dr. Alexis Brink MCHC (RBC) [Mass/Vol] 33.7 g/dL Normal 29.9-35.2 [facility] Comment on above: Performed By: #### C BC #### [facility] [address] [place] [address] Dr. Alexis Brink MCV (RBC) [Entitic vol] 91.1 fL Normal 80.0-94.0 [facility] Comment on above: Performed By: #### C BC #### [facility] [address] [place] [address] Dr. Alexis Brink MONO # 0.5 103/ul Normal 0.3-0.8 [facility] Comment on above: Performed By: #### C BC #### [facility] [address] [place] [address] Dr. Alexis Brink Monocytes/100 WBC (Bld) 8.5 % Normal 1.7-12.0 [facility] Comment on above: Performed By: #### C BC #### [facility] [address] [place] [address] Dr. Alexis Brink NEUT # 3.5 103/ul Normal 1.4-6.5 [facility] Comment on above: Performed By: #### C BC #### [facility] [address] [place] [address] Dr. Alexis Brink Neutrophils/100 WBC (Bld) 63.2 % Normal 43.0-75.0 [facility] Comment on above: Performed By: #### C BC #### [facility] [address] [place] [address] Dr. Alexis Brink Platelet mean volume (Bld) [Entitic vol] 10.0 fL Normal 9.5-13.5 [facility] Comment on above: Performed By: #### C BC #### [facility] [address] [place] [address] Dr. Alexis Brink PLT 120 103/ul Critically low 150-450 [facility] [place] Comment on above: Performed By: #### C BC #### [facility] [address] [place] [address] Dr. Alexis Brink RBC 4.85 106/ul Normal 4.70-6.10 [facility] Comment on above: Performed By: #### C BC #### [facility] [address] [place] [address] Dr. Alexis Brink WBC 5.6 103/ul Normal 4.0-11.0 [facility] Comment on above: Performed By: #### C BC #### [facility] [address] [place] [address] Dr. Alexis Brink Covid-19 PCR ([facility])on 07-21 SARS-CoV-2 (COVID-19) RNA RICKY+probe Ql (Unsp spec) Not detected Normal NOT DETECTED [facility] Comment on above: Result Comment: This test is not yet approved or cleared by the [place] FDA. When there are no FDA-approved or cleared tests available, and other criteria are met, FDA can make tests available under an emergency access mechanism called an Emergency Use Authorization (EUA). The EUA for this test is supported by the [place] of Health and Human Service's (HHS's) declaration [...] with SARS-CoV-2. Performed By: #### C VDTB ####[facility] [address] [place], [place] [address]Dr. [facility] INFLUENZA A AND B AGon 08-10 [facility] SEE BELOW Normal [facility] Comment on above: Result Comment: Nega tive for Flu A protein angiten. Infection due to Flu A cannot be ruled out. Flu A angiten in the sample may be below the detection limit of the test. Performed By: #### I NFLUAB ####[facility] [address] [place], [place] [address]Dr. [facility] INFLUBNEGH SEE BELOW Normal [facility] Comment on above: Result Comment: Nega tive for Flu B protein antigen. Infection due to Flu B cannot be ruled out. Flu B antigen in the sample may be below the detection limit of the test. Performed By: #### I NFLUAB ####[facility] [address] [place], [place] [address]Dr. [facility] INFLUENZA A AG Negative Normal NEGATIVE SEE COMMENT [facility] Comment on above: Performed By: #### I NFLUAB ####[facility] [address] [place], [place] [address]Dr. [facility] INFLUENZA B AG Negative Normal NEGATIVE SEE COMMENT [facility] Comment on above: Performed By: #### I NFLUAB ####[facility] [address] [place], [place] [address]QbDr. Alexis Brink INTERNAL CONTROLS Within Normal Limits Normal Wi thin Normal Limits [facility] Comment on above: Performed By: #### I NFLUAB ####[facility] [address] [place], [place] [address]DlDr. Alexis Brink PROF CHEM 8 (BAS METB)on Anion gap [Moles/Vol] 11.4 mmol/L Normal [facility] Comment on above: Performed By: #### B MP, HSTROPN #### [facility] [address] [place] [address] [address] Alexis Brink Calcium [Mass/Vol] 8.9 mg/dL Normal 8.5-10.1 [facility] Comment on above: Performed By: #### B MP, HSTROPN #### [facility] [address] [place] [address] [address] Alexis Brink Chloride [Moles/Vol] 102 mmol/L Normal 98-107 [facility] Comment on above: Performed By: #### B MP, HSTROPN #### [facility] [address] [place] [address] [address] Alexis Brink CO2 [Moles/Vol] 28.8 mmol/L Normal 21.0-32.0 [facility] Comment on above: Performed By: #### B MP, HSTROPN #### [facility] [address] [place] [address] [address] Alexis Brink Creatinine [Mass/Vol] 1.35 mg/dL Critically high 0.70-1.30 [facility] Comment on above: Performed By: #### B MP, HSTROPN #### [facility] [address] [place] [address] [address] Alexis Brink EGFR-AF TURKS AND CAICOS ISLANDER >60 Normal >=60 [facility] Comment on above: Performed By: #### B MP, HSTROPN #### [facility] [address] [place] [address] [address] Alexis Brink EGFR-NON AF TURKS AND CAICOS ISLANDER 51 mL/min/1.73m2 Critically low >=60 [facility] Comment on above: Performed By: #### B MP, HSTROPN #### [facility] [address] [place] [address] [address] Alexis Brink Glucose [Mass/Vol] 109 mg/dL Critically high 74-106 [facility] Comment on above: Performed By: #### B MP, HSTROPN #### [facility] [address] [place] [address] [address] Alexis Brink Potassium [Moles/Vol] 4.2 mmol/L Normal 3.5-5.1 [facility] Comment on above: Performed By: #### B MP, HSTROPN #### [facility] [address] [place] [address] Dr. Alexis Brink Sodium [Moles/Vol] 138 mmol/L Normal 136-145 [facility] Comment on above: Performed By: #### B MP, HSTROPN #### [facility] [address] [place] [address] Dr. Alexis Brink Urea nitrogen [Mass/Vol] 18.0 mg/dL Normal 7.0-18.0 [facility] Comment on above: Performed By: #### B MP, HSTROPN #### [facility] [address] [place] [address] Dr. Alexis Brink Urea nitrogen/Creatinin e [Mass ratio] 13.3 mg/mg Normal [facility] Comment on above: Performed By: #### B MP, HSTROPN #### [facility] [address] [place] [address] Dr. Alexis Brink TROPONIN, HIGH SENSITIVITYon 08-10-2022 HSTROP 22.2 pg/mL Normal 4.0-76.1 [facility] Comment on above: Result Comment: CUT- OFF POINTS HAVE BEEN ESTABLISHED BASED ON THE FOURTH UNIVERSAL DEFINITIONS OF MYOCARDIAL INFARCTION. THE UPPER REFERENCE LIMIT (URL) OF TROPONIN, DEFINED THE 99TH PERCENTILE OF cTnI DISTRIBUTION IN A REFERENCE POPULATION, HAS BEEN CONFIRMED THE DECISION THRESHOLD FOR [place] DIAGNOSIS. Performed By: #### B MP, HSTROPN #### [facility] [address] [place] [address] Dr. Alexis Brink XR CHEST 1 Von [...] RADHA UNDERWOOD Date: 2022-08-10 16:07 Normal [facility] CBC AUTO DIFFon 02-09-2022 BASO # 0.0 103/ul Normal 0.0-0.1 [facility] Comment on above: Performed By: #### C BC #### [facility] [address] [place] [address] Dr[address] Alexis Brink Basophils/100 WBC (Bld) 0.6 % Normal 0.2-2.0 [facility] Comment on above: Performed By: #### C BC #### [facility] [address] [place] [address] Dr. Alexis Brink EO # 0.5 103/ul Normal 0.0-0.7 [facility] Comment on above: Performed By: #### C BC #### [facility] [address] [place] [address] [address] Alexis Brink Eosinophils/100 WBC (Bld) 7.2 % Critically high 0.9-7.0 [facility] Comment on above: Performed By: #### C BC #### [facility] [address] [place] [address] [address] Alexis Brink Erythrocyte distribution width (RBC) [Ratio] 12.4 % Normal 11.0-15.0 [facility] Comment on above: Performed By: #### C BC #### [facility] [address] [place] [address] Dr. Alexis Brink Hematocrit (Bld) [Volume fraction] 45.5 % Normal 42.0-54.0 [facility] Comment on above: Performed By: #### C BC #### [facility] [address] [place] [address] Dr. Alexis Brink Hemoglobin (Bld) [Mass/Vol] 15.4 g/dL Normal 14.0-18.0 [facility] Comment on above: Performed By: #### C BC #### [facility] [address] [place] [address] Dr. Alexis Brink IG # 0.02 10e3/ul Normal 0.00-0.03 [facility] Comment on above: Performed By: #### C BC #### [facility] [address] [place] [address] Dr. Alexis Brink IG % 0.3 % Normal 0.0-0.5 [facility] Comment on above: Performed By: #### C BC #### [facility] [address] [place] [address] Dr. Alexis Brink LYMPH # 1.3 103/ul Normal 1.2-3.8 [facility] Comment on above: Performed By: #### C BC #### [facility] [address] [place] [address] Dr. Alexis Brink Lymphocytes/100 WBC (Bld) 17.8 % Critically low 20.5-60.0 [facility] Comment on above: Performed By: #### C BC #### [facility] [address] [place] [address] Dr. Alexis Brink MANUAL DIFF REQ NO Normal [facility] Comment on above: Performed By: #### C BC #### [facility] [address] [place] [address] Dr. Alexis Brink MCH (RBC) [Entitic mass] 31.4 pg Normal 25.9-34.0 [facility] Comment on above: Performed By: #### C BC #### [facility] [address] [place] [address] Dr. Alexis Brink MCHC (RBC) [Mass/Vol] 33.8 g/dL Normal 29.9-35.2 [facility] Comment on above: Performed By: #### C BC #### [facility] [address] [place] [address] [address] Alexis Brink MCV (RBC) [Entitic vol] 92.9 fL Normal 80.0-94.0 [facility] Comment on above: Performed By: #### C BC #### [facility] [address] [place] [address] [address] Alexis Brink MONO # 0.7 103/ul Normal 0.3-0.8 [facility] Comment on above: Performed By: #### C BC #### [facility] [address] [place] [address] [address] Alexis Brink Monocytes/100 WBC (Bld) 9.6 % Normal 1.7-12.0 [facility] Comment on above: Performed By: #### C BC #### [facility] [address] [place] [address] [address] Alexis Birnk NEUT # 4.6 103/ul Normal 1.4-6.5 [facility] Comment on above: Performed By: #### C BC #### [facility] [address] [place] [address] [address] Alexis Brink Neutrophils/100 WBC (Bld) 64.5 % Normal 43.0-75.0 [facility] Comment on above: Performed By: #### C BC #### [facility] [address] [place] [address] [address] Alexis Brink Platelet mean volume (Bld) [Entitic vol] 10.7 fL Normal 9.5-13.5 [facility] Comment on above: Performed By: #### C BC #### [facility] [address] [place] [address] [address] Alexis Brink PLT 130 103/ul Critically low 150-450 [facility] [place] [facility] Comment on above: Performed By: #### C BC #### [facility] [address] [id number] Alexis Brink RBC 4.90 106/ul Normal 4.70-6.10 [facility] Comment on above: Performed By: #### C BC #### [facility] [address] [place] [address] [address] Alexis Brink WBC 7.1 103/ul Normal 4.0-11.0 [facility] Comment on above: Performed By: #### C BC #### [facility] [address] [place] [address] [address] Alexis Brink DIRECT LDLon 02-09-2022 Cholesterol in LDL [Mass/Vol] 144 mg/dL Normal [facility] Comment on above: Performed By: #### D LDL, BMP ####[facility] [id number] [place] [id number]. Alexis Brink DLDL NORMAL SEE BELOW Normal [facility] Comment on above: Result Comment: <100 mg/dl OPTIMAL 100 - 129 mg/dl NEAR OR ABOVE OPTIMAL 130 - 159 mg/dl BORDERLINE HIGH 160 - 189 mg/dl HIGH >190 mg/dl VERY HIGH Performed By: #### D LDL, BMP ####[facility] [id number] [place] [id number]. Alexis Brink PROF CHEM 8 (BAS METB)on Anion gap [Moles/Vol] 9.3 mmol/L Normal [facility] Comment on above: Performed By: #### D LDL, BMP #### [facility] [address] [place] [address] [address] Alexis Brink Calcium [Mass/Vol] 8.7 mg/dL Normal 8.5-10.1 [facility] Comment on above: Performed By: #### D LDL, BMP #### [facility] [address] [place] [address] [address] Alexis Brink Chloride [Moles/Vol] 103 mmol/L Normal 98-107 [facility] Comment on above: Performed By: #### D LDL, BMP #### [facility] [address] [place] [address] [address] Alexis Brink CO2 [Moles/Vol] 32.1 mmol/L Critically high 21.0-32.0 [facility] Comment on above: Performed By: #### D LDL, BMP #### [facility] [address] [place] [address] [address] Alexis Brink Creatinine [Mass/Vol] 1.35 mg/dL Critically high 0.70-1.30 [facility] Comment on above: Performed By: #### D LDL, BMP #### [facility] [address] [place] [address] [address] Alexis Brink EGFR-AF TURKS AND CAICOS ISLANDER >60 Normal >=60 [facility] Comment on above: Performed By: #### D LDL, BMP #### [facility] [address] [place] [address] [address] Alexis Brink EGFR-NON AF TURKS AND CAICOS ISLANDER 51 mL/min/1.73m2 Critically low >=60 [facility] Comment on above: Performed By: #### D LDL, BMP #### [facility] [address] [place] [address] [address] Alexis Brink Glucose [Mass/Vol] 90 mg/dL Normal 74-106 [facility] Comment on above: Performed By: #### D LDL, BMP #### [facility] [address] [place] [address] [address] Alexis Brink Potassium [Moles/Vol] 4.4 mmol/L Normal 3.5-5.1 [facility] Comment on above: Performed By: #### D LDL, BMP #### [facility] [address] [place] [address] [address] Alexis Brink Sodium [Moles/Vol] 140 mmol/L Normal 136-145 [facility] Comment on above: Performed By: #### D LDL, BMP #### [facility] [address] [place] [address] [address] Alexis Brink Urea nitrogen [Mass/Vol] 16.0 mg/dL Normal 7.0-18.0 [facility] Comment on above: Performed By: #### D LDL, BMP #### [facility] [address] [place] [address] [address] Alexis Brink Urea nitrogen/Creatinin e [Mass ratio] 11.9 mg/mg Normal [facility] Comment on above: Performed By: #### D LDL, BMP #### [facility] [address] [place] [address] Dr. Alexis Brink UA RANDOMon 02-09-2022 Bilirubin Ql (U) Negative Normal NEGATIVE [facility] Comment on above: Performed By: #### U A #### [facility] [address] [place] [address] Dr. Alexis Brink Clarity (U) CLEAR Normal CLEAR [facility] Comment on above: Performed By: #### U A #### [facility] [address] [place] [address] Dr. Alexis Brink Color (U) YELLOW Normal YELLOW [facility] Comment on above: Performed By: #### U A #### [facility] [address] [place] [address] Dr. Alexis Brink Glucose Ql (U) Negative Normal NEGATIVE [facility] [place] Comment on above: Performed By: #### U A #### [facility] [address] [place] [address] Dr. Alexis Brink Hemoglobin Ql (U) Negative Normal NEGATIVE [facility] Comment on above: Performed By: #### U A #### [facility] [address] [place] [address] Dr. Alexis Brink Ketones Ql (U) Negative Normal NEGATIVE [facility] [place] [facility] Comment on above: Performed By: #### U A #### [facility] [address] [place] [address] Dr. Alexis Brink LEUKOCYTES Negative Normal NEGATIVE [facility] Comment on above: Performed By: #### U A #### [facility] [address] [place] [address] Dr. Alexis Brink Nitrite Ql (U) Negative Normal NEGATIVE [facility] [place] Comment on above: Performed By: #### U A #### [facility] [address] [place] [address] Dr. Alexis Brink pH (U) 7.0 [pH] Normal 5-9 [facility] Comment on above: Performed By: #### U A #### [facility] [address] [place] [address] Dr. Alexis Brink SPEC GRAVITY 1.015 Normal 1.005-<=1.025 [facility] Comment on above: Performed By: #### U A #### [facility] [address] [place], [place] [address] Dr. Alexis Brink UA PROTEIN Negative Normal NEGATIVE/ TRACE [facility] Comment on above: Performed By: #### U A #### [facility] [address] [place], [place] [address] Dr. Alexis Brink Urobilinogen Qn (U) 1.0 {Kay'U}/dL Normal 0.2 - 1.0 [facility] Comment on above: Performed By: #### U A #### [facility] [address] [place], [place] [address] Dr. Alexis Brink XR CHEST 2 Von [...] HAWLEY Date: 2021-12-06 15:42 Normal [facility] Nonvisit Note - PTon 018 Nonvisit Note - PT Cert letter refaxed for signature this date - third and final attempt. Normal [facility] Nonvisit Note - PTon 018 Nonvisit Note - PT Cert letter refaxed to Dr Gooden's office. Second attempt. Normal [facility] Coding Summary.on 01-25-2018 Coding Summary. CODING DATE: 01/25/2018 FINAL [facility] STATUS: PAYOR: Medicare ADMIT DX: REASON [...] [place] Date Saved: 01/25/2018 10:54 am [facility] Coding Summary. CODING DATE: 01/25/2018 [facility] STATUS: PAYOR: Medicare ADMIT DX: REASON [...] [place] Date Saved: 01/25/2018 10:54 am [facility] SURGICAL PATHOLOGYon 05-15-2 018 [facility]ICAL [facility]OLOG[facility]: [id number] Physician: BETH GOODEN MD FINAL DIAGNOSISRight hip, [...] to 8.5 x 8.5 x 1.8 cm. Interline Clerk sectionsare submitted as follows: A1 soft tissue, A2 bone submitted afterdecalcification.B Юлия/lachelle 01/01/2018 Gross examination performed at [facility], [address] [place] [id number] of Report: 01/07/2018Date of Procedure: 01/01/2018Date of Receipt: 01/01/2018Submitted by: BETH GOODNE MDLocation: [id number] interpretation performed at [facility], [address] [place], [place] [id number]. Normal [facility] Comment on above: Performed By: #### S ####See report for performing lab information. Vital Signs Date Time Vital Sign Value Performing Clinician Facility 05-28-2024 08:30-0400 Body height 167.64 cm [facility] 05-28-2024 08:30-0400 Body mass index (BMI) [Ratio] 27.1 kg/m2 [facility] 05-28-2024 08:30-0400 Body weight 76.31 kg [facility] 05-28-2024 08:30-0400 Diastolic blood pressure 89 mm[Hg] [facility] 05-28-2024 08:30-0400 Heart rate 61 /min [facility] 05-28-2024 08:30-0400 Respiratory rate 12 /min [facility] 05-28-2024 08:30-0400 Systolic blood pressure 139 mm[Hg] [facility] 01-22-2024 09:16-0400 Body height 167.64 cm [facility] 01-22-2024 09:16-0400 Body mass index (BMI) [Ratio] 29.3 kg/m2 [facility] 01-22-2024 09:16-0400 Body weight 82.55 kg [facility] 01-22-2024 09:16-0400 Diastolic blood pressure 72 mm[Hg] [facility] 01-22-2024 09:16-0400 Heart rate 64 /min [facility] 01-22-2024 09:16-0400 Respiratory rate 20 /min [facility] 01-22-2024 09:16-0400 Systolic blood pressure 131 mm[Hg] [facility] 09-28-2023 11:00-0500 Body height 167.64 cm Cecilio Ball Other [facility] [employer] Other 09-28-2023 11:00-0500 Body mass index (BMI) [Ratio] 30.24 kg/m2 Cecilio Ball Other [facility] [employer] Other 09-28-2023 11:00-0500 Body weight 85 kg Cecilio Ball Other [facility] [employer] Other 09-28-2023 11:00-0500 Respiratory rate 20 /min Cecilio Ball Other [email or web address] Other 09-28-2023 11:00-0500 SaO2% (BldA) [Mass fraction] 97 % Cecilio Ball Other [email or web address] Other 09-11-2023 10:45-0500 Body height 167.64 cm Cecilio Ball Other [email or web address] Other 09-11-2023 10:45-0500 Body mass index (BMI) [Ratio] 29.86 kg/m2 Cecilio Ball Other [email or web address] Other 09-11-2023 10:45-0500 Body temperature 97.5 [degF] Cecilio Ball Other [email or web address] Other 09-11-2023 10:45-0500 Body weight 83.92 kg Cecilio Ball Other [email or web address] Other 09-11-2023 10:45-0500 Diastolic blood pressure 81 mm[Hg] Cecilio Ball Other [email or web address] Other 09-11-2023 10:45-0500 Respiratory rate 20 /min Cecilio Ball Other [email or web address] Other 09-11-2023 10:45-0500 SaO2% (BldA) [Mass fraction] 98 % Cecilio Ball Other [email or web address] Other 09-11-2023 10:45-0500 Systolic blood pressure 161 mm[Hg] Cecilio Ball Other [email or web address] Other 08-01-2023 10:15-0500 Body height 167.64 cm Cecilio Ball Other [email or web address] Other 08-01-2023 10:15-0500 Body mass index (BMI) [Ratio] 29.86 kg/m2 Cecilio Ball Other [email or web address] Other 08-01-2023 10:15-0500 Body weight 83.92 kg Cecilio Ball Other [email or web address] Other 08-01-2023 10:15-0500 Diastolic blood pressure 79 mm[Hg] Cecilio Ball Other [email or web address] Other 08-01-2023 10:15-0500 Respiratory rate 20 /min Cecilio Ball Other [email or web address] Other 08-01-2023 10:15-0500 Systolic blood pressure 172 mm[Hg] Cecilio Ball Other [email or web address] Other 07-17-2023 10:15-0500 Body height 167.64 cm Cecilio Ball Other [email or web address] Other 07-17-2023 10:15-0500 Body mass index (BMI) [Ratio] 29.89 kg/m2 Cecilio Ball Other [email or web address] Other 07-17-2023 10:15-0500 Body weight 84.01 kg Ceiclio Ball Other [email or web address] Other 07-17-2023 10:15-0500 Diastolic blood pressure 78 mm[Hg] Cecilio Ball Other [email or web address] Other 07-17-2023 10:15-0500 Respiratory rate 20 /min Cecilio Ball Other [email or web address] Other 07-17-2023 10:15-0500 Systolic blood pressure 172 mm[Hg] Cecilio Ball Other [email or web address] Other 07-10-2023 14:45-0500 Body height 167.64 cm Cecilio Ball Other [email or web address] Other 07-10-2023 14:45-0500 Body mass index (BMI) [Ratio] 29.47 kg/m2 Cecilio Ball Other [email or web address] Other 07-10-2023 14:45-0500 Body weight 82.83 kg Cecilio Ball Other [email or web address] Other 07-10-2023 14:45-0500 Diastolic blood pressure 80 mm[Hg] Cecilio Ball Other [email or web address] Other 07-10-2023 14:45-0500 Respiratory rate 20 /min Cecilio Ball Other [email or web address] Other 07-10-2023 14:45-0500 Systolic blood pressure 150 mm[Hg] Cecilio Ball Other [email or web address] Other 06-20-2023 08:30-0400 Body height 167.64 cm Cecilio Ball Other [email or web address] Other 06-20-2023 08:30-0400 Body mass index (BMI) [Ratio] 29.6 kg/m2 Cecilio Ball Other [email or web address] Other 06-20-2023 08:30-0400 Body weight 83.19 kg Cecilio Ball Other [email or web address] Other 06-20-2023 08:30-0400 Diastolic blood pressure 76 mm[Hg] Cecilio Ball Other [email or web address] Other 06-20-2023 08:30-0400 Respiratory rate 20 /min Cecilio Ball Other [email or web address] Other 06-20-2023 08:30-0400 Systolic blood pressure 157 mm[Hg] Cecilio Ball Other [email or web address] Other 05-30-2023 13:45-0400 Body height 167.64 cm Cecilio Ball Other [email or web address] Other 05-30-2023 13:45-0400 Body mass index (BMI) [Ratio] 28.95 kg/m2 Cecilio Ball Other [email or web address] Other 05-30-2023 13:45-0400 Body weight 81.38 kg Cecilio Ball Other [email or web address] Other 05-30-2023 13:45-0400 Diastolic blood pressure 78 mm[Hg] Cecilio Ball Other [email or web address] Other 05-30-2023 13:45-0400 Respiratory rate 16 /min Cecilio Ball Other [email or web address] Other 05-30-2023 13:45-0400 Systolic blood pressure 158 mm[Hg] Cecilio Ball Other [email or web address] Other 02-14-2023 08:30-0400 Body height 167.64 cm Cecilio Ball Other [email or web address] Other 02-14-2023 08:30-0400 Body mass index (BMI) [Ratio] 28.57 kg/m2 Cecilio Ball Other [email or web address] Other 02-14-2023 08:30-0400 Body weight 80.29 kg Cecilio Ball Other [email or web address] Other 02-14-2023 08:30-0400 Diastolic blood pressure 80 mm[Hg] Cecilio Ball Other [email or web address] Other 02-14-2023 08:30-0400 Respiratory rate 16 /min Cecilio Ball Other [email or web address] Other 02-14-2023 08:30-0400 Systolic blood pressure 135 mm[Hg] Cecilio Ball Other [email or web address] Other 02-01-2023 08:15-0400 Body height 167.64 cm Jose Enrique Benji II Other [email or web address] Other 02-01-2023 08:15-0400 Body mass index (BMI) [Ratio] 27.44 kg/m2 Jose Enrique Benji II Other [email or web address] Other 02-01-2023 08:15-0400 Body weight 77.11 kg Jose Enrique [place] II Other [email or web address] Other 12-11-2022 10:30-0400 Body height 167.64 cm Cecilio Ball Other [email or web address] Other 12-11-2022 10:30-0400 Body mass index (BMI) [Ratio] 28.66 kg/m2 Cecilio Ball Other [email or web address] Other 12-11-2022 10:30-0400 Body weight 80.56 kg Cecilio Ball Other [email or web address] Other 12-11-2022 10:30-0400 Diastolic blood pressure 76 mm[Hg] Cecilio Ball Other [email or web address] Other 12-11-2022 10:30-0400 Respiratory rate 12 /min Cecilio Ball Other [email or web address] Other 12-11-2022 10:30-0400 Systolic blood pressure 151 mm[Hg] Cecilio Ball Other [email or web address] Other 11-09-2022 16:00-0400 Body mass index (BMI) [Ratio] 29.21 kg/m2 Jose Enrique [place] II Other [email or web address] Other 11-09-2022 16:00-0400 Body weight 82.1 kg Jose Enrique Benji II Other [email or web address] Other 11-09-2022 10:30-0400 Body height 167.64 cm Cecilio Ball Other [email or web address] Other 11-09-2022 10:30-0400 Body mass index (BMI) [Ratio] 29.23 kg/m2 Cecilio Ball Other [email or web address] Other 11-09-2022 10:30-0400 Body weight 82.15 kg Cecilio Ball Other [email or web address] Other 11-09-2022 10:30-0400 Diastolic blood pressure 79 mm[Hg] Cecilio Ball Other [email or web address] Other 11-09-2022 10:30-0400 Respiratory rate 20 /min Cecilio Ball Other [email or web address] Other 11-09-2022 10:30-0400 Systolic blood pressure 152 mm[Hg] Cecilio Ball Other [email or web address] Other 10-12-2022 10:00-0500 Body height 167.64 cm Cecilio Ball Other [email or web address] Other 10-12-2022 10:00-0500 Body mass index (BMI) [Ratio] 29.24 kg/m2 Cecilio Ball Other [email or web address] Other 10-12-2022 10:00-0500 Body weight 82.19 kg Cecilio Ball Other [email or web address] Other 10-12-2022 10:00-0500 Diastolic blood pressure 70 mm[Hg] Cecilio Ball Other [email or web address] Other 10-12-2022 10:00-0500 Respiratory rate 12 /min Cecilio Ball Other [email or web address] Other 10-12-2022 10:00-0500 Systolic blood pressure 102 mm[Hg] Cecilio Ball Other [email or web address] Other Encounters Encounter Date Encounter Type Care Provider Facility Start: 08-04-2024 End: 08-04-2024 ambulatory Maddie Villalobos MD Facility: [facility] Start: 07-14-2024 End: 07-14-2024 ambulatory Andrius Kipytautas Gaetanoitis Facility: [facility] Start: 05-28-2024 End: 05-28-2024 ambulatory [facility] Work Phone: Start: 05-28-2024 End: 05-28-2024 Patient encounter procedure [facility] Work Phone: Start: 05-26-2024 End: 05-26-2024 ambulatory Andrius Vytautas Giedraitis Facility: [facility] Start: 04-07-2024 End: 04-07-2024 ambulatory Andrius Kipytautas Gaetanoitis [facility]: [facility] Start: 03-31-2024 End: 03-31-2024 ambulatory Andrius Kipytautas Alexraitis Facility: [facility] Start: 03-24-2024 End: 03-24-2024 ambulatory Andrius Vytautas Giedraitis MD Facility: [facility] Start: 03-10-2024 End: 03-10-2024 ambulatory Andrius Vytautas Giedraitis [facility]: [facility] Start: 02-25-2024 End: 02-25-2024 ambulatory Andrius Vytautas Giedraitis MD Facility: [facility] Start: 02-11-2024 End: 02-11-2024 ambulatory Andrius Vytautas Gaetanoitis [facility]: [facility] Start: 01-28-2024 End: 01-28-2024 ambulatory Andrius Vytautas Giedraitis Facility: [facility] Start: 01-22-2024 End: 01-22-2024 ambulatory [facility] Work Phone: Start: 01-22-2024 End: 01-22-2024 Patient encounter procedure [facility] Work Phone: Start: 10-30-2023 Non-patient / Non-visit [facility] Work Phone: Start: 09-28-2023 End: 09-28-2023 ambulatory Cecilio Ball Other [email or web address] Other Start: 09-28-2023 Office outpatient vi sit 15 minutes Cecilio Ball [facility] Start: 09-28-2023 Telephone encounter Cecilio Ball [facility] Start: 09-21-2023 End: 09-21-2023 ambulatory Cecilio Ball Other [email or web address] Other Start: 09-21-2023 Telephone encounter Cecilio Ball [facility] Start: 09-11-2023 End: 09-11-2023 ambulatory Cecilio Ball Other [email or web address] Other Start: 09-11-2023 Office outpatient vi sit 15 minutes Cecilio Ball [facility] Start: 09-11-2023 Telephone encounter Cecilio Ball [facility] Start: 09-03-2023 End: 09-03-2023 ambulatory Cecilio Ball Other [email or web address] Other Start: 09-03-2023 Telephone encounter Cecilio Ball [facility] Start: 08-03-2023 End: 08-03-2023 ambulatory Cecilio Ball Other [email or web address] Other Start: 08-03-2023 Telephone encounter Cecilio Ball [facility] Start: 08-01-2023 End: 08-01-2023 ambulatory Cecilio Ball Other [email or web address] Other Start: 08-01-2023 Office outpatient vi sit 15 minutes Cecilio Ball [facility] Start: 07-17-2023 End: 07-17-2023 ambulatory Cecilio Ball Other [email or web address] Other Start: 07-17-2023 Office outpatient vi sit 15 minutes Cecilio Ball [facility] Start: 07-10-2023 End: 07-10-2023 ambulatory Cecilio Ball Other [email or web address] Other Start: 07-10-2023 Office outpatient vi sit 15 minutes Cecilio Benjamin [facility] Start: 06-20-2023 End: 06-20-2023 ambulatory Cecilio Benjamin Other [email or web address] Other Start: 06-20-2023 Office outpatient vi sit 25 minutes Cecilio Benjamin [facility] Start: 06-15-2023 End: 06-15-2023 ambulatory Cecilio Benjamin Other [email or web address] Other Start: 06-15-2023 Telephone encounter Cecilio Benjamin [facility] Start: 05-30-2023 End: 05-30-2023 ambulatory Cecilio Benjamin Other [email or web address] Other Start: 05-30-2023 Office outpatient vi sit 15 minutes Cecilio Benjamin [facility] Start: 03-20-2023 Telephone encounter David Jaeger DO Work Phone: [facility] Comment on above: Follow Up Phone Call Start: 03-15-2023 End: 03-15-2023 ambulatory DAVID JAEGER Facility:[facility] Start: 02-27-2023 Orders Only David Marcos DO Work Phone: Procedures Comment on above: Pseudoclaudication s yndrome (Primary Dx); Lumbar radiculopathy Start: 02-26-2023 Telephone encounter David Jaeger DO Work Phone: [facility] Comment on above: Procedure Start: 02-19-2023 Telephone encounter David Jaeger DO Work Phone: [facility] Comment on above: Appointment Start: 02-14-2023 End: 02-14-2023 ambulatory Cecilio Benjamin Other [email or web address] Other Start: 02-14-2023 Patient encounter procedure Cecilio Benjamin [facility] Start: 02-13-2023 End: 02-13-2023 ambulatory Cecilio Benjamin Other [email or web address] Other Start: 02-13-2023 Telephone encounter Cecilio Sourav [facility] Start: 02-08-2023 End: 02-08-2023 ambulatory Cecilio Benjamin Other [email or web address] Other Start: 02-08-2023 Telephone encounter Cecilio Benjamin FP [facility] Start: 02-01-2023 End: 02-01-2023 ambulatory Jose Enrique Leblanc II Other [email or web address] Other Start: 02-01-2023 Office outpatient vi sit 25 minutes Jose Enrique Roscommon II [facility] Start: 12-11-2022 End: 12-11-2022 ambulatory Cecilio Benjamin Other [email or web address] Other Start: 12-11-2022 Office outpatient vi sit 15 minutes Cecilio [facility] Start: 11-09-2022 End: 11-09-2022 ambulatory Jose Enrique Leblanc II Facility:[facility] Start: 11-09-2022 End: 11-09-2022 Patient encounter procedure MD Jose Enrique Leblanc II Work Phone: [facility] Start: 11-09-2022 End: 11-09-2022 ambulatory MD Jose Enrique Leblanc II Work Phone: [facility] Work Phone: Start: 11-09-2022 Office outpatient ne w 45 minutes Jose Enrique Guerrerole II [facility] Start: 11-09-2022 Office outpatient vi sit 15 minutes Cecilio [facility] Start: 11-05-2022 End: 11-05-[address] CECILIO BENJAMIN Facility:[facility] Start: 10-12-2022 End: 10-12-2022 ambulatory Cecilio Benjamin Other [email or web address] Other Start: 10-12-2022 Office outpatient vi sit 25 minutes Cecilio [facility] Start: 09-27-2022 End: 09-27-2022 ambulatory Cecilio Benjamin Other [email or web address] Other Start: 09-27-2022 Telephone encounter Cecilio [facility] Start: 09-26-2022 End: 09-27-[address] CECILIO BENJAMIN Facility:[facility] Start: 08-25-2022 End: 08-25-2022 ambulatory Cecilio Benjamin Other [email or web address] Other Start: 08-25-2022 Telephone encounter [facility] Start: 08-10-2022 End: 08-10-[address] CECILIO BENJAMIN Facility:[facility] Start: 02-09-2022 End: 02-10-[address] CECILIO BENJAMIN Facility:[facility] Start: 12-06-2021 End: 12-07-[address] CECILIO BENJAMIN Facility:[facility] Start: 01-22-2018 End: 04-20-2018 Patient encounter [id number] AUGUSTINE SOURAV Facility:[facility] Procedures Date Procedure Procedure Detail Performing Clinician Start: 11-09-2022 Pelvis X-ray MD Jose Enrique Leblanc II Work Phone: Start: 11-09-2022 Radiologic examinati on of knee MD Jose Enrique Leblanc II Work Phone: Plan of Treatment Date Care Activity Detail Author Start: 01-22-2024 Patient referral [facility] Work Phone: Start: 04-20-2023 Influenza vaccination INFLUENZA (#1) [facility] Start: 10-01-2022 COVID-19 VACCINE (5 - Moderna series) COVID-19 VACCINE (5 - Moderna series) [facility] Start: 08-20-2022 ADVANCE DIRECTIVE DISCUSSION ADVANCE DIRECTIVE DISCUSSION [facility] Start: 08-20-2022 DEPRESSION ASSESSMENT DEPRESSION ASS ESSMENT [facility] Start: 09-19-2021 COVID-19 VACCINE (4 - Booster for Moderna series) COVID-19 VACCINE (4 - Booster for Moderna series) [facility] Start: 09-19-2021 COVID-19 VACCINE (4 - Moderna series) COVID-19 VACCINE (4 - Moderna series) [facility] Start: 01-02-2021 DIABETES SCREEN DIABETES SCREEN [facility] Start: 1991 SHINGRIX VACCINE (1 of 2) SHINGRIX VACCINE (1 of 2) [facility] Start: 1960 Urine microalbumin profile DTAP,TDAP,TD (1 - Tdap) [facility] Start: 1959 SPIROMETRY SPIROMETRY [facility] Start: 1947 PNEUMOCOCCAL: 65+ (1 - PCV) PNEUMOCOCCAL: 65+ (1 - PCV) [facility] metabo lic 2000 panel - Serum or Plasma [facility] Patient referral [facility] Work Phone: SPINE INTERVENTION PROCEDURE SPINE INTERVENTION PROCEDURE Procedures Routine Spinal stenosis, lumbar region with neurogenic claudication Lumbar radiculopathy, chronic Ordered: 02/19/2023 [facility] Work Phone: Comment on above: Ordered: 02/19/2023 [facility] Immunizations Immunization Date Immunization Notes Care Provider Fa cility 05-30-2023 COVID-19 Vaccine Moderna - Documentation Purposes Only Cecilio Benjamin Other [facility] 05-30-2023 influenza virus vaccine, unspecified formulation [facility] 05-30-2023 influenza, high dose seasonal, preservative-free Cecilio Benjamin Other [facility] Other 06-13-2022 influenza virus vaccine, split virus (incl. purified surface antigen) Cecilio Benjamin Other [facility] Other 06-13-2022 influenza virus vaccine, unspecified formulation [facility] 06-13-2022 influenza, high dose seasonal, preservative-free Jose Enrique Leblanc II Other [facility] Other 05-31-2022 COVID-19 Pfizer (bivalent) Jose Enrique Leblanc II Other [facility] 05-31-2022 COVID-19 Pfizer (Pediatric) Cecilio Benjamin Other [facility] 07-25-2021 COVID-19 Vaccine Moderna - Documentation Purposes Only Jose Enrique Roscommon II Other [facility] 05-03-2021 zoster vaccine recombinant Jose Enrique Roscommon II Other [facility] 05-03-2021 zoster vaccine, live Benjami n Ball Other [facility] 01-28-2021 zoster vaccine recombinant Jose Enrique Roscommon II Other [facility] 01-28-2021 zoster vaccine, live Benjami n Ball Other [facility] 10-25-2020 COVID-19 Vaccine Moderna - Documentation Purposes Only Jose Enrique Benji II Other [facility] 09-27-2020 COVID-19 Vaccine Moderna - Documentation Purposes Only Jose Enrique Benji II Other [facility] 05-24-2020 influenza virus vaccine, split virus (incl. purified surface antigen) Cecilio Benjamin Other [email or web address] Other 05-24-2020 influenza virus vaccine, unspecified formulation [facility] 01-03-2019 diphtheria, tetanus toxoids and acellular pertussis vaccine, unspecified formulation Cecilio Benjamin Other [facility] 12-25-2018 pneumococcal polysaccharide vaccine, 23 valent Jose Enrique Roscommon II Other [facility] 04-30-2018 influenza virus vaccine, split virus (incl. purified surface antigen) Cecilio Benjamin Other [email or web address] Other 04-30-2018 influenza virus vaccine, unspecified formulation [facility] 04-09-2017 influenza virus vaccine, split virus (incl. purified surface antigen) Cecilio Benjamin Other [email or web address] Other 04-09-2017 influenza virus vaccine, unspecified formulation [facility] 05-31-2016 zoster vaccine, live Jose Enrique Roscommon II Other [facility] 05-13-2016 influenza virus vaccine, split virus (incl. purified surface antigen) Cecilio Sourav Other [facility] Other 05-13-2016 influenza virus vaccine, unspecified formulation [facility] 05-09-2015 influenza virus vaccine, split virus (incl. purified surface antigen) Cecilio Sourav Other [facility] Other 05-09-2015 influenza virus vaccine, unspecified formulation [facility] 03-06-2015 pneumococcal conjuga te vaccine, 13 valent Jose Enrique Roscommon II Other [facility] 05-07-2014 tetanus and diphther ia toxoids, adsorbed, preservative free, for adult use (5 Lf of tetanus toxoid and 2 Lf of diphtheria toxoid) Cecilio Sourav Other [facility] 04-23-2013 tetanus and diphther ia toxoids, adsorbed, preservative free, for adult use (5 Lf of tetanus toxoid and 2 Lf of diphtheria toxoid) Cecilio Benjamin Other [facility] 08-21-2012 pneumococcal polysaccharide vaccine, 23 valent Cecilio Sourav Other [facility] 12-12-2011 zoster vaccine, live Jose Enrique Benji II Other [facility] Payers Date Payer Category Payer Self-pay 2022 Unknown [id number] 2018 Medicare [id number] 2006 Medicare [id number] 2006 Unknown [id number] 1959 Medicare [id number] 2.1 [id number] 1959 Unknown [id number] 2.16. [id number] 1941 Unknown [id number] 2.16.84 0.1.359130.3.579.2.593 1941 Unknown [id number] 2.16.84 0.1.233195.3.579.2.593 1941 Unknown [id number] 2.16.84 0.1.078540.3.579.2.593 1941 Unknown [id number] 2.16.84 0.1.367934.3.579.2.593 1941 Unknown [id number] 2.16.84 0.1.660193.3.579.2.593 1941 Unknown [id number] 2.16. 840.1.381012.3.579.2.196 1941 Unknown [id number] 2.16. 840.1.592278.3.579.2.196 1941 Unknown [id number] 2.16. 840.1.315013.3.579.2.196 1941 Unknown [id number] 2.16. 840.1.148140.3.579.2.196 1941 Unknown [id number] 2.16. 840.1.751258.3.579.2.196 1941 Unknown [id number] 2.16. 840.1.671420.3.579.2.196 1941 Unknown [id number] 2.16. 840.1.823731.3.579.2.196 1941 Unknown [id number] 2.16. 840.1.992005.3.579.2.196 1941 Unknown [id number] 2.16. 840.1.906534.3.579.2.196 1941 Unknown [id number] 2.16. 840.1.544544.3.579.2.196 Unknown [id number] 2.16.8 40.1.435097.3.579.2.531 Social History Date Type Detail Facility Start: 05-09-2021 End: 03-15-2023 Sex Assigned At [facility] Start: 1940 Sex Assigned At Male F [facility] Start: 06-13-2017 End: 01-22-2024 Tobacco smoking status NHIS Never smoked tobacco [facility] Start: 06-13-2017 Tobacco use and exposure Smokeless tobacco non-user [facility] Start: 05-09-2021 Alcohol intake Current drinke r of alcohol (finding) [facility] Start: 12-11-2017 Alcohol Comment Katie[employer] in coffee C [facility] Start: 1940 Sex Assigned At Not on file C [facility] Start: 05-09-2021 End: 03-15-2023 History of Social function [facility] Adult Depression Screening Assessment 1 [facility] Medical Equipment Procedure Code Equipment Code Equipment Origin al Text Equipment Identifier Dates Sidney Swivelock Tenodesis 8mm Biocomposite 19.5mm Suture [place] Eyelet - [id number] Start: 06-29-2017 Sleeve V40 +0mm Offset Carson Taper Titanium Adapter Hip - [id number] Start: 01-01-2018 Screw Trident Secur-Fit Torx 6.5mm Titanium 20mm Bone Sterile Acetabular - [id number] Start: 01-01-2018 Clinical Notes 08-25-2022 to 01-22-2024 Note Date & Type Note Facility 01-22-2024 Evaluation note Diagnosis Onset Date Chronic bronchitis, simple a cute Chronic kidney disease, stage 3a acute Elevated cholesterol acute Generalized anxiety disorder acute Hypertension acute Lumbar spondylolysis acute Obstructive sleep apnea acut e Medicare annual wellness visit, subsequent noneactive [facility] Work Phone: [phone] 357-728102-09-2024 Evaluation note* Encounter Date Diagnosis Assessment Notes [...] and clinically improving, no further treatment necessary [email or web address] Other 02-02-2024 Evaluation note* Encounter Date Diagnosis Assessment Notes Treatment Notes Treatment Clinical Notes Sep, Carotid bruit, unspecified laterality (ICD-10 - R09.89) [email or web address] Other 01-23-2024 Evaluation note* Encounter Date Diagnosis [...] tid Initiate Prednisone _update office on Sunday [email or web address] Other 01-15-2024 Evaluation note* Encounter Date Diagnosis Assessment Notes Treatment Notes Treatment Clinical Notes Aug, JONATHAN (generalized anxiety disorder) (ICD-10 - F41.1) [email or web address] Other 12-13-2023 Evaluation note* Encounter Date Diagnosis [...] best 2/3 readings w/ goal < 135/85 [email or web address] Other 11-28-2023 Evaluation note* Encounter Date Diagnosis [...] daily for blisters and ulcerations. Moisturizers daily [email or web address] Other 11-21-2023 Evaluation note* Encounter Date Diagnosis [...] Call if develop increased pain or erythema [email or web address] Other 11-01-2023 Evaluation note* Encounter Date Diagnosis [...] very active. No change in medical treatment [email or web address] Other 10-27-2023 Evaluation note* Encounter Date Diagnosis Assessment Notes Treatment Notes Treatment Clinical Notes May, JONATHAN (generalized anxiety disorder) (ICD-10 - F41.1) [email or web address] Other 10-11-2023 Evaluation note* Encounter Date Diagnosis [...] They may safely use Tylenol as needed. [email or web address] Other 08-01-2023 Miscellaneous Notes* Telephone Encounter - Neida Porter MA - 03/20/2023 12:26 PM EDT DATE OF SERVICE: 03/15/2023 PATIENT'S PHONE NUMBERS: [phone] (home) OR @[email or web address]@ PROVIDER: Dr. Jaeger PROCEDURE: Elective Pain Management Procedure Left message on machine Asked pt to call back and speak with the specialty triage nurse with update. Please obtain percentage better and the duration of improvement. Please inquire if there were any problems afterwards. Nedia Brink documented in [facility] encounter[facility]23 Miscellaneous Notes* Telephone Encounter - Linda Knox LPN - 02/26/2023 4:42 PM EDT Spoke to patient in reguards to pre procedure instructions. Pt must have a trencher driver. Pt advised to arrive 30 min [...] take. Advised on location of [facility] Pt will receive a follow up call several days after by a velvet steamer. If you experience any increase in weakness, difficulty walking or significant increase in pain thatlast more than 4 hours, please proceed to the Emergency Room and tell them you had a spine procedure done recently. Additionally, call us and notify us of these symptoms. Please call [phone] if you have any questions. Pt verbalized understanding. documented in this encounterOhio [facility]07-03-2023 Miscellaneous Notes* Telephone Encounter - Linda Knox LPN - 02/19/2023 11:57 AM EDT Order approved Sp[facility] in [facility] to pre procedure instructions. Daughter given scheduling number [phone] Pt must have a trencher driver. Pt advised to arrive 30 min prior to the time given by the tabulating supervisor. Pt advised will also receive a call the day before from the surgery center to confirm date/time. Pt can eat and drink as normal. and Pt can take medications as normal. No alcohol 24 hours prior. Pt is on ASA.- 81 mg okay to take. and must Advised on location of [facility] Pt will receive a follow up call several days after by a velvet steamer. If you experience any increase in weakness, difficulty walking or significant increase in pain thatlast more than 4 hours, please proceed to the Emergency Room and tell them you had a spine procedure done recently. Additionally, call us and notify us of these symptoms. Please call [phone] if you have any questions. Pt verbalized understanding. * Telephone Encounter - Linda Knox LPN - 02/19/2023 9:43 AM EDT Spine Intervention order formatted for review * Telephone Encounter - Camilla Frost - 02/19/2023 9:18 AM EDT Ruperto Keeley Ila daughter Celi is calling David Jaeger, DO today to ask about getting patient a shot again - Last one in 2020 Please advise what patient needs as far as OV or MRI or if he can be scheduled for procedure - daughter states she left a VM somewhere last week but never heard back Please call Celi as patient cannot hear well [phone] Patient has been identified by name and birthdate. Duration of symptoms: N/A Person calling: daughter: Celi Call patient at: N/A [phone] (home) [phone] (cell) Was an appointment scheduled: No Closing statement: Results or non-symptom based questions: Thank you for calling [facility], your call will be returned within the next business day. Camilla Jarrell Pss documented in this encounterOhio Valley Surgical Hospital06-28-2023 Evaluation note* Encounter Date Diagnosis Assessment [...] (ICD-10 - F41.1) Healthy diet, keep active [email or web address] Other 06-22-2023 Evaluation note* Encounter Date Diagnosis Assessment Notes Treatment Notes Treatment Clinical Notes Jan, Elevated cholesterol (ICD-10 - E78.00) Jan, Stage 3a chronic kidney disease (ICD-10 - N18.31) Jan, Primary hypertension (ICD-10 - I10) Jan, Screening PSA (prostate specific antigen) (ICD-10 - Z12.5) Jan, High risk medication use (ICD-10 - Z79.899) [email or web address] Other 06-15-2023 Evaluation note* Encounter Date Diagnosis [...] this time 6. Follow up as needed [email or web address] Other 04-24-2023 Evaluation note* Encounter Date Diagnosis [...] use of statin, experiencing ADR and stopped [email or web address] Other 03-23-2023 Evaluation note* Encounter Date Diagnosis [...] - M17.12) Quad exercises, ice/heat and Tylenol [email or web address] Other 03-23-2023 Evaluation note* Encounter Date Diagnosis [...] injection well. 6. 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) [email or web address] Other 01-06-2023 Evaluation note* Encounter Date Diagnosis Assessment Notes Treatment Notes Treatment Clinical Notes Aug, Carotid bruit, unspecified laterality (ICD-10 - R09.89) [email or web address] Other Evaluation noteNo assessment information available [facility] Work Phone: Evaluation noteNo InformationNortP[facility] Other [facility] note* Diagnosis Spinal stenosis, lumbar region with neurogenic claudication- Primary Lumbar radiculopathy, chronic Thoracic or lumbosacral neuritis or radiculitis, unspecified documented in this encounter [facility] Diagnosis Pseudoclaudication syndrome- Primary Spinal stenosis, lumbar region, with neurogenic claudication Lumbar radiculopathy Thoracic or lumbosacral neuritis or radiculitis, unspecified Pseudoclaudication syndrome Spinal stenosis, lumbar region, with neurogenic claudication Lumbar radiculopathy Thoracic or lumbosacral neuritis or radiculitis, unspecified documented in this encounter [facility]* Diagnosis Onset Date Resolution Status Chronic bronchitis, simple a cute Chronic kidney disease, stage 3a acute Elevated cholesterol acute Generalized anxiety disorder acute Hypertension acute Lumbar spondylolysis acute Obstructive sleep apnea acut e [facility] Work Phone: History general Narrative - [...] food Medical History Dermatitis Surgical History Colonoscopy 2009 Surgical History ACDF 1998 Surgical History EGD 2009 Surgical History Right Shoulder Arthroscopy 02/06 17 Surgical History Right JANELLE 06/2017 Hospitalization History see surgical history [email or web address] Other Hospital Discharge instructionsAmbulatory Orders* Referral to Pain Management Location: None [facility] Work Phone: Summary Purpose Family [...] section and content) DATE CREATED AUTHOR 02/06/2018 [facility] DATE CREATED AUTHOR AUTHOR'S ORGANIZ ATION 06/10/2018 Toni Lawler [facility] DATE CREATED AUTHOR AUTHOR'S ORGANIZ ATION 11/06/2022 [facility] DATE CREATED AUTHOR AUTHOR'S ORGANIZ ATION 12/21/2022 [facility] DATE CREATED AUTHOR AUTHOR'S ORGANIZ ATION 03/15/2023 [facility] DATE CREATED AUTHOR AUTHOR'S ORGANIZ ATION 03/22/2023 [facility] DATE CREATED AUTHOR AUTHOR'S ORGANIZ ATION 08/13/2024 [facility] REASON FOR VISIT (unrecogniz ed section [...] Enrique Leblanc II, MD Attending Provider Active [employer] Relationship Specialty Start Date End Date Cecilio Benjamin DO PCP - General Internal Medicine 09/04/13 [employer] Relationship Specialty Start Date End Date Cecilio Benjamin DO PCP - General Internal Medicine 09/04/13 [employer] Relationship Specialty Start Date End Date Cecilio Benjamin DO PCP - General Internal Medicine 09/04/13 [employer] Relationship Specialty Start Date End Date Cecilio [...] or prosecute any alcohol or drug abuse patient.[facility] HospitalIn the event this information is protected by the Federal Confidentiality of Alcohol and Drug Abuse Patient Records regulations: The Federal rules restrict any use of the information to criminally investigate or prosecute any alcohol or drug abuse patient.[facility] HospitalIn the event this information is protected by the Federal Confidentiality of Alcohol and Drug Abuse Patient Records regulations: The Federal rules restrict any use of the information to criminally investigate or prosecute any alcohol or drug abuse patient.[facility] HospitalIn the event this information is protected by the Federal Confidentiality of Alcohol and Drug Abuse Patient Records regulations: The Federal rules restrict any use of the information to criminally investigate or prosecute any alcohol or drug abuse patient.[facility] FOR RECORDS PERTAINING TO PATIENTS WHO [...] BE BASED ON THE PRIMARY CLINICAL RECORDS. [employer] [facility]. provides no warranty or guarantee of the accuracy or completeness of information in this document.
--- NOTE | 2024-08-18 13:33 | P.CN_ITS ---
Consult Note: HPI Data of Consult Patient: known to practice within the last 3 years Consult date: 08/18/24 Requesting Physician: Maddie Villalobos MD Primary Care Provider: Cecilio Benjamin DO Consult Narrative Reason for consult: low back pain Narrative: 84yom who presents for assessment. notes significant relief after recent lumbar tfesi. hip pain has resolved. still gets pain when standing too long, very active at home. uses tylenol as needed. cc:: CC: Maddie Villalobos MD Review of Systems ROS Status of ROS 10 or more systems reviewed and unremark able except as noted in history and below PFSH PFS Medical History Low back pain ?M54.50 - Low back pain, unspecified (ICD-10) Heartburn ?R12 - Heartburn (ICD-10) Sleep apnea ?G47.30 - Sleep apnea, unspecified (ICD-10) COPD (chronic obstructive pulmonary disease) ?J44.9 - Chronic obstructive pulmonary disease, unspecified (ICD-10) Asthma ?J45.909 - Unspecified asthma, uncomplicated (ICD-10) Hypertension ?I10 - Essential (primary) hypertension (ICD-10) Surgical History H/O cervical spine surgery ?Z98.890 - Other specified postprocedural states (ICD-10) S/P tonsillectomy and adenoidectomy ?Z90.89 - Acquired absence of other organs (ICD-10) History of ankle surgery ?Z98.890 - Other specified postprocedural states (ICD-10) S/P cholecystectomy ?Z90.49 - Acquired absence of other specified parts of digestive tract (ICD- 10) S/P total hip arthroplasty ?Z96.649 - Presence of unspecified artificial hip joint (ICD-10) History of surgery on upper extremity ?Z98.890 - Other specified postprocedural states (ICD-10) Meds Home Medications and Allergies Home Medications ?Medication ?Instructions ?Recorded ?Confirmed ?Type albuterol sulfate 90 mcg/actuation 2 inh inhalation Q8H PRN shortness 01/28/24 08/04/24 History aerosol inhaler (Ventolin HFA) of breath or wheezing amlodipine 2.5 mg tablet 2.5 mg PO DAILY 01/28/24 08/04/24 History clonazepam 0.5 mg tablet 0.5 mg PO DAILY 01/28/24 08/04/24 History escitalopram oxalate 10 mg tablet 10 mg PO DAILY 01/28/24 08/04/24 History (Lexapro) fluticasone propionate 110 1 inh inhalation BID 01/28/24 08/04/24 History mcg/actuation HFA aerosol inhaler nabumetone 500 mg tablet 500 mg PO BID 01/28/24 08/04/24 History omeprazole 20 mg capsule,delayed 20 mg PO DAILY 01/28/24 08/04/24 History release tamsulosin 0.4 mg capsule (Flomax) 0.4 mg PO DAILY 01/28/24 08/04/24 History diazepam 10 mg tablet 10 mg PO TID PRN sedation 04/07/24 08/04/24 History Allergies Allergy/AdvReac Type Severity Reaction Status Date / Time bacitracin AdvReac Mild Rash Verified 08/04/24 11:06 Exam Narrative Exam Narrative: Psych-alert and oriented x 3. Attentive and appropriate, constitutionally normal, displays normal mood and affect per situation.? There are no obvious deficits in memory, reasoning, or intellect.? Skin-no obvious rashes, bruising, erythema noted to the patient's area of pain. Extremities- extremities are warm with minimal edema and palpable pulses. Lumbar-no significant tenderness to palpation noted in the lumbar spine and paraspinal musculature.? Pain is elicited with extension, and lateral rotation of the lumbar spine. Range of motion is slightly diminished with these motions due to pain. Coordination remains intact.? Gait remains non-antalgic. Assessment and Plan Assessment and Plan (1) Lumbar spondylosis: (2) Lumbar stenosis with neurogenic claudication: Plan 84yom who presents for assessment. i am glad he had good relief after recent lumbar tfesi. discussed that at some point, pain would likely return, and could reassess at that point. meds reviewed, no changes. follow up as needed.
== END 2024-08-18 12:10 | disposition home or self-care (01) ==
LOC: PM 12:09
PROVIDERS: PCP Internal Medicine; Visit Provider Anesthesiology
DX: M47.816 Spondylosis without myelopathy or radiculopathy, lumbar region (principal); M48.062 Spinal stenosis, lumbar region with neurogenic claudication
CPT/HCPCS: G0463

== ENCOUNTER 2024-10-30 14:59 | Outpatient (OUT) | payer MEDICARE, OTHER, SELFPAY ==
--- OUTSIDE RECORDS SUMMARY | 2024-10-30 15:08 | XMS_ITS | CCD ---
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 Role Phone CECILIO [phone] UNKNOWN Unavailable Unavailable BETH GOODEN Unavailable Unavailable [...] MD Jose Enrique Leblanc II Attending Provider [phone] Jose Enrique Leblanc II Unavailable Jose Enrique [...] bacitracin; Translations: [bacitracin] Drug Allergy 09-11-2013 Unknown [facility] Repository (19 sources) Albuterol Drug Allergy Unknown [employer] Other (20 sources) HMG-CoA reductase inhibitor Drug allergy Unknown [employer] Other Medications Current Medications Medication Drug Class(es) Dates Sig (Normalized) Sig (Original) acetaminophen 325 mg oral tablet (20 sources) Start: 10-17-2023 take 2 tablets by mouth every eight hours as needed Acetaminophen 325 mg tablet Active 325 MG PO Every 8 hours as needed October 17, 2023 12:00am 2 tablets by mouth orally every 8 hours PRN Start: 01-02-2018 take 2 tablets by [facility] every eight hours acetaminophen (TYLENOL) 500 mg tablet Take 2 tablets by mouth every 8 hours. (Mild pain reliever) 90 tablet 1 01/02/2018 Active take 2 tablets by mo ut every eight hours as needed Acetaminophen 325 MG 2 tablets by mouth Orally every 8 hours PRN Active Comment on above: Take 2 tablets by mo [facility] every 8 hours. (Mild pain reliever) amLODIPine 2.5 mg oral tablet (20 sources) Dihydropyridine Calcium Channel Chanel Start: End: take 1 tablet by mouth once daily Amlodipine 2.5 mg tablet Active 2.5 MG PO Daily 90 90 October 01, 2024 9:08am Start: 10-12-2022 take 1 tablet by [facility] every twenty-four hours amLODIPine Besylate 2.5 MG 1 tablet Orally Once a day Sep, Active aspirin 81 mg chewable tablet (5 sources) Platelet Aggregation Inhibitor, Nonsteroidal Anti-inflammatory Drug Start: 02-12-2025 take 1 tablet by mouth once daily Aspirin 81 mg tablet,chewable Active 81 MG PO Daily October 01, 2024 12:00am Start: 01-02-2018 take 1 tablet by christen th twice daily aspirin, enteric coated (ASPIRIN, ENTERIC COATED) 325 mg EC tablet Take 1 tablet by mouth twice daily. (Blood thinner to prevent blood clots) 84 tablet 0 01/02/2018 Active Comment on above: Take 1 tablet by christen th twice daily. (Blood thinner to prevent blood clots) atorvastatin 10 mg oral tablet (5 sources) HMG-CoA Reductase Inhibitor Start: 09-27-19 23 take 1 tablet by mouth once daily in the evening Atorvastatin Calcium 10 MG 1 tablet Orally daily in evening for 30 day(s) Sep, Active clobetasol propionate 0.0005 mg/mg topical ointment (20 sources) Corticosteroid Start: 10-17-19 24 Clobetasol 0.05 % ointment Active 1 APPLIC TOPICAL Twice daily October 17, 2023 12:00am Clobetasol Propi caroline 0.05 % 1 application Externally Twice a day Active escitalopram 10 mg oral tablet (20 sources) Serotonin Reuptake Inhibitor Start: 10-01-2024 take 1 tablet by mouth once daily Escitalopram Oxalate 10 mg tablet Active 10 MG PO Daily October 01, 2024 9:09am Start: 04-02-2024 End: 10-01-2024 Escitalopram Oxalate 10 mg t ablet Discontinued 0 .ROUTE .COMPLEX April 02, 2024 12:32pm October 01, 2024 9:10am TAKE 1 TABLET AT BEDTIME Start: 04-02-2024 Escitalopram O xalate Active 0 .ROUTE .COMPLEX April 02, 2024 1:32pm TAKE 1 TABLET AT BEDTIME Start: 10-17-2023 End: 04-02-2024 take 1 tablet by mouth once daily at bedtime Escitalopram Oxalate 10 mg tablet Discontinued 10 MG PO Daily at bedtime October 19, 2023 10:07am April 02, 2024 12:34pm Escitalopram Oxa late 10 MG TAKE 1 TABLET AT BEDTIME Active Comment on above: Take 10 mg by mouth once daily. 60 actuat fluticasone propionate 0.25 mg/actuat / salmeterol 0.05 mg/actuat dry powder inhaler (20 sources) Corticosteroid, beta2-Adrenergic Agonist Start: 01-22-2024 Fluticasone Propion-Salmeterol (Wixela Inhub) 250-50 mcg/dose blister with device Active 1 INH INHALATION Twice daily 60 30 January 21, 2024 11:00pm take 1 puff(s) by inhalation twi ce [...] RNA Synthetase Inhibitor Antibacterial Start: 10-17-2023 Mupirocin 2 % ointment Active 1 APPLIC TOPICAL Twice daily October 17, 2023 12:00am Mupirocin 2 % 1 application Externally Twice a day Active nabumetone 500 mg oral tablet (20 sources) Nonsteroidal Anti-inflammatory Drug Start: 04-02-2024 End: 10-01-2024 Nabumetone 500 mg tablet Active 0 .ROUTE .COMPLEX 180 October 01, 2024 9:08am TAKE 1 TABLET TWICE A DAY Start: 10-17-2023 End: 04-02-2024 take 1 tablet by mouth twice daily Nabumetone 500 mg tablet Discontinued 500 MG PO Twice daily 180 October 19, 2023 10:07am April 02, 2024 12:34pm Start: 02-08-2021 nabumetone (RE LAFEN) 500 mg tablet omeprazole 20 mg delayed release oral capsule (20 sources) Proton Pump Inhibitor Start: 10-17-2023 End: 10-01-2024 take 1 capsule by mouth once daily Omeprazole 20 mg capsule,delayed release(DR/EC) Active 20 MG PO Daily 90 October 01, 2024 9:08am Omeprazole 20 MG TAKE 1 CAPSULE EVERY [...] sources) Sulfonamide Antibacterial Start: 10-17-19 Silver Sulfadiazine 1 % cream Active 1 APPLIC TOPICAL Daily October 17, 2023 12:00am Silvadene 1 % 1 application Externally Once a day Active Silvadene 1 % 1 application Externally Once a day Active tamsulosin hydrochloride 0.4 mg oral capsule (20 sources) alpha-Adrenergic Chanel Start: 10-01-2024 take 1 capsule by mouth once daily at bedtime Tamsulosin 0.4 mg capsule Active 0.4 MG PO Daily at bedtime 90 October 01, 2024 9:08am Start: 01-07-2024 End: 10-01-2024 Tamsulosin 0.4 mg capsule Discontinued 0 .ROUTE .COMPLEX January 07, 2024 11:45am October 01, 2024 9:10am TAKE 1 CAPSULE DAILY Start: 10-17-2023 End: 01-07-2024 take 1 capsule by mouth once daily Tamsulosin 0.4 mg capsule Discontinued 0.4 MG PO Daily October 19, 2023 10:08am January 07, 2024 11:45am Tamsulosin HCl 0 .4 MG TAKE 1 CAPSULE EVERY EVENING Active Comment on above: Take 0.4 mg by mouth . triamcinolone acetonide 0.001 mg/mg topical ointment (20 sources) Corticosteroid Start: 10-17-2023 End: 10-19-2023 Triamcinolone Acetonide 0.1 % ointment Active 1 APPLIC TOPICAL Twice daily 80 90 October 19, 2023 10:08am Start: 05-30-2023 Triamcinolone Acetonide 0.1 % 1 application Externally Twice a day for 30 days May, Active Start: 11-09-2022 Kenalog-40 Oct, 120 mg Completed/Discontinued Medications Medication Drug Class(es) Dates Sig (Normalized) Sig (Original) [id number] 200 actuat albuterol 0.09 mg/actuat metered dose inhaler (20 sources) beta2-Adrenergic Agonist Start: 10-19-2023 End: 10-30-2023 take 2.5 mg by inhalation every four to six hours as needed for wheezing Albuterol Sulfate 2.5 mg /3 mL (0.083 %) solution for nebulization Active 2.5 MG INHALATION EVERY 4-6 HOURS as needed for shortness of breath or wheezing 540 October 30, 2023 12:20pm Start: 10-10-2023 End: 01-22-2024 take 1 puff(s) by inhalation every four to six hours as needed for wheezing Albuterol Sulfate 90 mcg/actuation HFA aerosol inhaler Discontinued 2 PUFF INHALATION EVERY 4-6 HOURS as needed for shortness of breath or wheezing 8.5 October 19, 2023 10:09am January 22, 2024 8:29am Start: 09-28-2023 Albuterol Sulf ate (2.5 MG/3ML) [...] on above: Take 4 tablets by mo uth 1 hour prior to procedure and 2 tablets by mouth 6 hours after procedure Calcium Carbonate / vitamin D3 (4 sources) take 1 tablet by mouth once daily CALCIUM CARBONATE/VITAMIN D3 (VITAMIN D-3 ORAL) Take 1 tablet by mouth once daily. 0 Active Comment on above: Take 1 tablet by christen th once daily. clonazePAM 0.5 mg oral tablet (20 sources) Benzodiazepine Start: 10-17-2023 End: 10-01-2024 take 1 tablet by mouth once daily at bedtime Clonazepam 0.5 mg tablet Discontinued 0.5 MG PO Daily at bedtime October 19, 2023 10:06am April 02, 2024 12:34pm Start: 09-03-2023 take 1 tablet by christen [...] mouth at bedtime as needed (1/2 tab). COMPOUNDED PRESCRIPTION (4 sources) COMPOUNDED PRESCRIPTION Fiber Well 5mg. Take daily 0 Active Comment on above: Fiber Well 5mg. Take daily docusate sodium 100 mg oral capsule (4 sources) Start: take 1 capsule by mouth twice daily docusate sodium (COLACE) 100 mg capsule Take 1 capsule by mouth twice daily. (Stool softener) 60 capsule 0 01/02/2018 Active Comment on above: Take 1 capsule by [facility] twice daily. (Stool softener) doxycycline hyclate 100 mg oral capsule (17 sources) Tetracycline-clas s Drug Start: 4 End: 4 take 1 capsule by mouth twice daily Doxycycline Hyclate 100 mg capsule Discontinued 100 MG PO Twice daily October 17, 2023 12:00am October 19, 2023 10:06am Start: 07-10-2023 take 1 capsule by [facility] every twelve hours Doxycycline Hyclate 100 MG [...] Comment on above: Take 1 tablet by [facility] twice daily with meals. (Iron supplement) FISH OIL-DHA-EPA ORAL (4 sources) take 1 capsule by mouth once daily FISH OIL-DHA-EPA ORAL Take 1 capsule by mouth once daily. 0 Active Comment on above: Take 1 capsule by [facility] once daily. hydrocortisone 25 mg/ml topical cream (1 source) Corticosteroid Start: 08-18-2024 End: 10-01-2024 Hydrocortisone (Proctosol Hc) 2.5 % cream with perineal applicator Discontinued 1 APPLIC [place] 1 to 2 times per day as needed for hemorrhoids August 18, 2024 12:00am October 01, 2024 9:11am MELATONIN, BULK, MISC (5 sources) MELATONIN, BULK, [...] Problem Date Documented Date Episodic/Chronic Acute bronchitis (12 sources) Acute bronchitis; Translations: [Acute bronchitis due [...] disease, unspecified] Chronic Diabetes mellitus without complication (3 sources) Hyperglycemia; Translations: [Impaired fasting glucose] 05-28-2024 Episodic [...] [Spondylolysis, lumbar region] Episodic Other acquired deformities (3 sources) Spondylolysis; Translations: [Spondylolysis, lumbar region] 10-18-2023 Episodic Other acquired deformities (3 sources) Spondylolysis, lumbar region; Translations: [Acquired spondylolisthesis] 01-22-2024 Episodic Other aftercare (2 sources) Other care home (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 therapy; Translations: [OTH [facility] CURRENT DRUG THERAPY] Onset: 11-06-2022 Episodic Other [...] source) Pain in left knee Episodic Other nutritional; endocrine; and metabolic disorders (1 source) Weight decreased; Translations: [Abnormal weight loss] 05-28-2024 Episodic Other screening for suspected conditions (not [...] (adult) (pediatric)] 01-02-2018 Chronic Residual codes; unclassified (6 sources) Obstructive sleep apnea (adult) (pediatric); Translations: [...] Range Facility [facility] 03-20-2023 [facility] Telephone (SPNMAV) RUPERTO THORPE ([id number]) 1940 [place] [employer] Date Time Provider Department 03/20/23 DAVID JAEGER SPILAV During your visit today, we recorded the following information about you: Neida Porter MA 03/20/2023 12:30 PM Signed DATE OF SERVICE: 03/15/2023 PATIENT'S PHONE NUMBERS: [phone] (home) OR @[facility]@ PROVIDER: Dr. Jaeger PROCEDURE: Elective [...] work Requesting to call his CELL ONLY [phone] what to do next Leave Detailed messages [...] of spine injection schedulers to call at [phone]. Patient will call if he wants to schedule another injection. 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 Author [...] offered a procedure / surgery at a [facility] facility. Patient and I have discussed in [...] surgery/procedure as indicated on the consent form. [facility] approved time out was performed identifying the site, side and level of procedure prior to start of procedure. [facility] - ELECTIVE PROCEDURE Lumbar [...] the entire procedure. David Jaeger DO, MBA [facility] 02-26-2023 [facility] Telephone (SPNMAV) RUPERTO THORPE ([id number]) 1940 M [facility] Date Time Provider Department 02/26/23 DAVID JAEGER During your visit today, we recorded the following information about you: Linda Knox LPN 02/26/2023 4:49 PM Signed Spoke to patient in reguards to pre procedure instructions. Pt must have a uke driver. Pt advised to arrive 30 min [...] Advised on location of [facility] Pt will receive a follow up call several days after by a application development team lead. If you experience any increase in weakness, difficulty walking or significant increase in pain that last more than 4 hours, please proceed to the Emergency Room and tell them you had a spine procedure done recently. Additionally, call us and notify us of these symptoms. Please call [phone] if you have any questions. Pt verbalized [...] Status:Closed by LINDA KNOX LPN on 02/26/23 [facility] Unique 02-19-2023 [facility] Telephone (SPNMAV) RUPERTO THORPE ([id number]) 1940 [employer] Date Time Provider [...] call Celi as patient cannot hear well [phone] Patient has been identified by name and birthdate. Duration of symptoms: N/A Person calling: daughter: Celi Call patient at: N/A [phone] (home) [phone] (cell) Was an appointment scheduled: No Closing statement: Results or non-symptom based questions: Thank you for calling [facility], your call will be returned within the next business day. Camilla Jarrell Pss Linda Chandler HUMAN RESOURCE MANAGEMENT INSTRUCTOR 02/19/2023 9:45 AM Signed Spine Intervention order formatted for review Linda Chandler HUMAN RESOURCE MANAGEMENT INSTRUCTOR 02/19/2023 11:59 AM Signed Order approved Spoke to daughter in reguards to pre procedure instructions. Daughter given scheduling number [phone] Pt must have a uke driver. Pt advised to arrive 30 min prior to the time given by the bean picker. Pt advised will also receive a call the day before from the surgery center to confirm date/time. Pt can eat and drink as normal. and Pt can take medications as normal. No alcohol 24 hours prior. Pt is on ASA.- 81 mg okay to take. and must Advised on location of [facility]-2nd floor [facility] Pt will receive a follow up call several days after by a application development team lead. If you experience any increase in weakness, difficulty walking or significant increase in pain that last more than 4 hours, please proceed to the Emergency Room and tell them you had a spine procedure done recently. Additionally, call us and notify us of these symptoms. Please call [phone] if you have any questions. Pt verbalized understanding. 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 Normal [facility] XR knee LT 4V*on 11-09-2022 XR knee LT 4V* [facility] Main [place] [id number] XRay Report Signed Patient: Ruperto Thorpe MR#: [id number] 5 : 1940 Acct:[id number] Age/Sex: 82 / M ADM Date: 11/09/22 Loc: SOXD Room: Type: [facility] Attending Dr: Jose Enrique Leblanc II, [...] Darren Yuen M.D.11/09/2022 5:03 PM Dictation Location: [place] [address] Transcribed By: [facility] 11/09/221702 Dictated By: Darren Yuen II, MD 11/09/221700 Signed By: 11/09/221702 Normal [facility] XR knee LT 4V* [facility] [employer] Other XR knee LT 4V* [facility] [place] [employer] Other XR knee LT 4V* [address] [facility] [employer] Other XR knee LT 4V* [place] [id number] No rt [employer] Other XR knee LT 4V* XRay Report [employer] Other XR knee LT 4V* Signed [employer] Other XR knee LT 4V* Patient: Ruperto Thorpe MR#: [id number] [place] [employer] Other XR knee LT 4V* 5 [employer] Other XR knee LT 4V* : 1940 Acct:[id number] [place] [employer] Other XR knee LT 4V* Age/Sex: 82 / M ADM Date: 11/09/22 [employer] Other XR knee LT 4V* Loc: SOXD Room: Type : [facility] [employer] Other XR knee LT 4V* Attending Dr: Jose Enrique Leblanc II, MD [place] [employer] Other XR knee LT 4V* Copies to: Jose Enrique Leblanc MD [employer] Other XR knee LT 4V* Ordering Provider: Jose Enrique Leblanc MD [employer] Other XR knee LT 4V* Date of Service: 11/09/22 [employer] Other XR knee LT 4V* XR/XR knee LT 4V*: Acute pain of left knee [employer] Other XR knee LT 4V* XR knee LT 4V* 11/09/2022 3:15 PM [employer] Other XR knee LT 4V* SIGNS AND SYMPTOMS: Acute pain of left knee [employer] Other XR knee LT 4V* PROTOCOL: Frontal, lateral, oblique, and sunrise views of the left knee [employer] Other XR knee LT 4V* COMPARISON: 11/05/2022 [employer] Other XR knee LT 4V* FINDINGS: [employer] Other XR knee LT 4V* There is similar narrowing of the weightbearing joint spaces with chondrocalcinosis of the menisci [employer] Other XR knee LT 4V* suggesting underlyin g CPPD. There is narrowing of the patellofemoral joint space with spurring at [employer] Other XR knee LT 4V* the superior pole of patella. There is a small joint effusion. No soft tissue swelling. No acute [employer] Other XR knee LT 4V* displaced fracture. Vascular calcifications are present posteriorly. [employer] Other XR knee LT 4V* XR/XR knee LT 4V* [employer] Other XR knee LT 4V* IMPRESSION: [employer] Other XR knee LT 4V* Tricompartmental degenerative changes are noted in the left knee with a small joint effusion. [employer] Other XR knee LT 4V* There is chondrocalcinosis of the menisci suggesting underlying CPPD. [employer] Other XR knee LT 4V* Impression dictated by: Darren Yuen M.D.11/09/2022 5:03 PM [employer] Other XR knee LT 4V* Dictation Location: [place] [address] [employer] Other XR knee LT 4V* Transcribed By: COLIN 11/09/22 1703 [employer] Other XR knee LT 4V* Dictated By: Darren Yuen II, MD 11/09/221700 [employer] Other XR knee LT 4V* Signed By: [place] [employer] Other XR knee LT 4V* 11/09/221702 [place] [employer] Other XR pelvis 1-2Von 11-09-2022 XR pelvis 1-2V [facility] Main [place] [address] [place] [address] XRay Report Signed Patient: Ruperto Thorpe MR#: [id number] 5 : 1940 Acct:[id number] Age/Sex: 82 / M ADM Date: 11/09/22 Loc: [facility] Room: Type: [facility] Attending Dr: Jose Enrique Leblanc II, [...] Darren Yuen M.D.11/09/2022 5:01 PM Dictation Location: [place] [address] Transcribed By: [facility] 11/09/221700 Dictated By: Darren Yuen II, MD 11/09/221699 Signed By: 11/09/221700 [facility] XR pelvis 1-2V XR/XR pelvis 1-2V: Acute pain of left knee [employer] Other XR pelvis 1-2V XR pelvis 1-2V 11/09/2022 3:15 PM [employer] Other XR pelvis 1-2V SIGNS AND SYMPTOMS: Left knee pain [employer] Other XR pelvis 1-2V PROTOCOL: Frontal radiograph of the chest [employer] Other XR pelvis 1-2V COMPARISON: None [place] [employer] Other XR pelvis 1-2V There is mild narrowing of the left hip joint space with subcortical cystic change on both sides of [employer] Other XR pelvis 1-2V the joint along the acetabular there is chondrocalcinosis of the labrum overlying the superior [employer] Other XR pelvis 1-2V acetabular rim and superior lateral femoral head. The bony ring of the pelvis is intact. There is [employer] Other XR pelvis 1-2V total right hip arthroplasty. Degenerative changes are noted in the sacroiliac joints. No fracture [employer] Other XR pelvis 1-2V is [employer] Other XR pelvis 1-2V XR/XR pelvis 1-2V [employer] Other XR pelvis 1-2V Degenerative changes are noted in the left hip with findings suspicious for previous labral [employer] Other XR pelvis 1-2V pathology. [employer] Other XR pelvis 1-2V Postoperative change s are noted in the right hip with total right hip arthroplasty hardware. [employer] Other XR pelvis 1-2V Impression dictated by: Darren Yuen M.D.11/09/2022 5:01 PM [employer] Other XR pelvis 1-2V Transcribed By: COLIN 11/09/22 1701 [employer] Other XR pelvis 1-2V Dictated By: Darren Yuen II, MD 11/09/221699 [employer] Other XR pelvis 1-2V 11/09/221700 [employer] Other XR KNEE LT 4V or >on [...] There is chondrocalcinosis. Soft tissues: Unremarkable. IMPRESSION: Troa-vr-wawanbnh osteoarthritis as described above. Chondrocalcinosis. No acute fracture or dislocation. Electronically authenticated by: CHUCK JONES Date: 2022-11-05 11:19 Normal [facility] US CAROTID ART BILon 023 US [...] #### C BC #### [facility] [address] [place] [address] Dr. Alexis Brink Basophils/100 WBC (Bld) 0.7 % Normal 0.2-2.0 [facility] Comment on above: Performed By: #### C BC #### [facility] [address] [place] [address] Dr. Alexis Brink EO # 0.3 103/ul Normal 0.0-0.7 [facility] Comment on above: Performed By: #### C BC #### [facility] [address] [place] [address] Dr. Alexis Brink Eosinophils/100 WBC (Bld) 6.1 % Normal 0.9-7.0 [facility] Comment on above: Performed By: #### C BC #### [facility] [address] [place] [address] Dr. Alexis Brink Erythrocyte distribution width (RBC) [Ratio] 12.1 % Normal 11.0-15.0 [facility] Comment on above: Performed By: #### C BC #### [facility] [address] [place] [address] Dr. Alexis Brink Hematocrit (Bld) [Volume fraction] 44.2 % Normal 42.0-54.0 [facility] Comment on above: Performed By: #### C BC #### [facility] [address] [place] [address] Dr. Alexis Brink Hemoglobin (Bld) [Mass/Vol] 14.9 g/dL Normal 14.0-18.0 [facility] Comment on above: Performed By: #### C BC #### [facility] [address] [place] [address] Dr. Alexis Brink IG # 0.01 10e3/ul Normal 0.00-0.03 [facility] Comment on above: Performed By: #### C BC #### [facility] [address] [place] [address] Dr. Alexis Brink IG % 0.2 % Normal 0.0-0.5 [facility] Comment on above: Performed By: #### C BC #### [facility] [address] [place] [address] Dr. Alexis Brink LYMPH # 1.2 103/ul Normal 1.2-3.8 [facility] Comment on above: Performed By: #### C BC #### [facility] [address] [place] [address] Dr. Alexis Brink Lymphocytes/100 WBC (Bld) 21.3 % Normal 20.5-60.0 [facility] Comment on above: Performed By: #### C BC #### [facility] [address] [place] [address] Dr. Alexis Brink MANUAL DIFF REQ NO Normal [facility] Comment on above: Performed By: #### C BC #### [facility] [address] [place] [address] Dr. Alexis Brink MCH (RBC) [Entitic mass] 30.7 pg Normal 25.9-34.0 [facility] Comment on above: Performed By: #### C BC #### [facility] [address] [place] [address] Dr. Alexis Brink MCHC (RBC) [Mass/Vol] 33.7 g/dL Normal 29.9-35.2 [facility] Comment on above: Performed By: #### C BC #### [facility] [address] [place] [address] Dr. Alexis Brink MCV (RBC) [Entitic vol] 91.1 fL Normal 80.0-94.0 [facility] Comment on above: Performed By: #### C BC #### [facility] [address] [place] [address] Dr. Alexis Brink MONO # 0.5 103/ul Normal 0.3-0.8 [facility] Comment on above: Performed By: #### C BC #### [facility] [address] [place] [address] Dr. Alexis Brink Monocytes/100 WBC (Bld) 8.5 % Normal 1.7-12.0 [facility] Comment on above: Performed By: #### C BC #### [facility] [address] [place] [address] Dr. Alexis Brink NEUT # 3.5 103/ul Normal 1.4-6.5 [facility] Comment on above: Performed By: #### C BC #### [facility] [address] [place] [address] Dr. Alexis Brink Neutrophils/100 WBC (Bld) 63.2 % Normal 43.0-75.0 [facility] Comment on above: Performed By: #### C BC #### [facility] [address] [place] [address] Dr. Alexis Brink Platelet mean volume (Bld) [Entitic vol] 10.0 fL Normal 9.5-13.5 [facility] Comment on above: Performed By: #### C BC #### [facility] [address] [place] [address] Dr. Alexis Brink PLT 120 103/ul Critically low 150-450 [facility] Comment on above: Performed By: #### C BC #### [facility] [address] [place] [address] Dr. Alexis Brink RBC 4.85 106/ul Normal 4.70-6.10 [facility] Comment on above: Performed By: #### C BC #### [facility] [address] [place] [address] Dr. Alexis Brink WBC 5.6 103/ul Normal 4.0-11.0 [facility] Comment on above: Performed By: #### C BC #### [facility] [address] [place] [address] Dr. Alexis Brink Covid-19 PCR ([facility]on 07-21 SARS-CoV-2 (COVID-19) RNA RICKY+probe Ql (Unsp [...] for this test is supported by the [place] of Health and Human Service's (HHS's) declaration [...] Performed By: #### C VDTBH ####[facility] [address] [place], [place] [address]Dr. lilliana [facility] INFLUENZA A AND B AGon 08-10 [facility] SEE BELOW Normal [facility] Comment on above: Result Comment: Nega tive for Flu A protein angiten. Infection due to Flu A cannot be ruled out. Flu A angiten in the sample may be below the detection limit of the test. Performed By: #### I NFLUAB ####[facility] [address] [place], [place] [address]Dr. lilliana [facility] INFLUBNEGH SEE BELOW Normal [facility] Comment on above: Result Comment: Nega tive for Flu B protein antigen. Infection due to Flu B cannot be ruled out. Flu B antigen in the sample may be below the detection limit of the test. Performed By: #### I NFLUAB ####[facility] [address] [place], [place] [address]Dr. [facility] INFLUENZA A AG Negative Normal NEGATIVE SEE COMMENT [facility] Comment on above: Performed By: #### I NFLUAB ####[facility] [address] [place], [place] [address]Dr. [facility] INFLUENZA B AG Negative Normal NEGATIVE SEE COMMENT [facility] Comment on above: Performed By: #### I NFLUAB ####[facility] [address] [place], [place] [address]Dr. [facility] INTERNAL CONTROLS Within Normal Limits Normal Wi thin Normal Limits [facility] Comment on above: Performed By: #### I NFLUAB ####[facility] [address] [address]Dr. Alexis Brink PROF CHEM 8 (BAS METB)on Anion gap [Moles/Vol] 11.4 mmol/L Normal [facility] Comment on above: Performed By: #### B MP, HSTROPN #### [facility] [address] [address] [address] Alexis Brink Calcium [Mass/Vol] 8.9 mg/dL Normal 8.5-10.1 [facility] Comment on above: Performed By: #### B MP, HSTROPN #### [facility] [address] [address] [address] Alexis Brink Chloride [Moles/Vol] 102 mmol/L Normal 98-107 [facility] Comment on above: Performed By: #### B NARA, HSTROPN #### [facility] [address] [place] [address] Dr. Alexis Brink CO2 [Moles/Vol] 28.8 mmol/L Normal 21.0-32.0 [facility] Comment on above: Performed By: #### B NARA, HSTROPN #### [facility] [address] [address] [address] Alexis Brink Creatinine [Mass/Vol] 1.35 mg/dL Critically high 0.70-1.30 [facility] Comment on above: Performed By: #### B NARA, HSTROPN #### [facility] [address] [address] [address] Alexis Brink EGFR-AF CHADIAN >60 Normal >=60 [facility] Comment on above: Performed By: #### B MP, HSTROPN #### [facility] [address] [place] [address] Dr. Alexis Brink EGFR-NON AF CHADIAN 51 mL/min/1.73m2 Critically low >=60 [facility] Comment on above: Performed By: #### B MP, HSTROPN #### [facility] [address] [place] [address] Dr. Alexis Brink Glucose [Mass/Vol] 109 mg/dL Critically high 74-106 [facility] Comment on above: Performed By: #### B NARA, HSTROPN #### [facility] [address] [address] [address] Alexis Brink Potassium [Moles/Vol] 4.2 mmol/L Normal 3.5-5.1 [facility] Comment on above: Performed By: #### B NARA, HSTROPN #### [facility] [address] [address] [address] Alexis Brink Sodium [Moles/Vol] 138 mmol/L Normal 136-145 [facility] Comment on above: Performed By: #### B NARA, HSTROPN #### [facility] [address] [place] [address] Dr. Alexis Brink Urea nitrogen [Mass/Vol] 18.0 mg/dL Normal 7.0-18.0 [facility] Comment on above: Performed By: #### B NARA, HSTROPN #### [facility] [address] [place] [address] Dr. Alexis Brink Urea nitrogen/Creatinin e [Mass ratio] 13.3 mg/mg Normal [facility] Comment on above: Performed By: #### B NARA, HSTROPN #### [facility] [address] [place] [address] Dr. Alexis Brink TROPONIN, HIGH SENSITIVITYon 08-10-2022 HSTROP 22.2 pg/mL Normal 4.0-76.1 [facility] Comment on above: Result Comment: CUT- OFF POINTS HAVE BEEN ESTABLISHED BASED ON THE FOURTH UNIVERSAL DEFINITIONS OF MYOCARDIAL INFARCTION. THE UPPER REFERENCE LIMIT (URL) OF TROPONIN, DEFINED THE 99TH PERCENTILE OF cTnI DISTRIBUTION IN A REFERENCE POPULATION, HAS BEEN CONFIRMED THE DECISION THRESHOLD FOR LA DIAGNOSIS. Performed By: #### B NARA, HSTROPN #### [facility] [address] [place] [address] Dr. Alexis Brink XR CHEST 1 Von [...] #### C BC #### [facility] [address] [place] [address] Dr. Alexis Brink Basophils/100 WBC (Bld) 0.6 % Normal 0.2-2.0 [facility] Comment on above: Performed By: #### C BC #### [facility] [address] [place] [address] Dr. Alexis Brink EO # 0.5 103/ul Normal 0.0-0.7 [facility] Comment on above: Performed By: #### C BC #### [facility] [address] [place] [address] Dr. Alexis Brink Eosinophils/100 WBC (Bld) 7.2 % Critically high 0.9-7.0 [facility] Comment on above: Performed By: #### C BC #### [facility] [address] [place] [address] Dr. Alexis Brink Erythrocyte distribution width (RBC) [Ratio] 12.4 % Normal 11.0-15.0 [facility] Comment on above: Performed By: #### C BC #### [facility] [address] [place] [address] Dr. Alexis Brink Hematocrit (Bld) [Volume fraction] 45.5 % Normal 42.0-54.0 [facility] Comment on above: Performed By: #### C BC #### [facility] [address] [place] [address] Dr. Alexis Brink Hemoglobin (Bld) [Mass/Vol] 15.4 g/dL Normal 14.0-18.0 [facility] Comment on above: Performed By: #### C BC #### [facility] [address] [place] [address] Dr. Alexis Brink IG # 0.02 10e3/ul Normal 0.00-0.03 [facility] Comment on above: Performed By: #### C BC #### [facility] [address] [place] [address] Dr. Alexis Brink IG % 0.3 % Normal 0.0-0.5 [facility] Comment on above: Performed By: #### C BC #### [facility] [address] [place] [address] Dr. Alexis Brink LYMPH # 1.3 103/ul Normal 1.2-3.8 [facility] Comment on above: Performed By: #### C BC #### [facility] [address] [place] [address] Dr. Alexis Brink Lymphocytes/100 WBC (Bld) 17.8 % Critically low 20.5-60.0 [facility] Comment on above: Performed By: #### C BC #### [facility] [address] [place] [address] Dr. Alexis Brink MANUAL DIFF REQ NO Normal [facility] Comment on above: Performed By: #### C BC #### [facility] [address] [place] [address] Dr. Alexis Brink MCH (RBC) [Entitic mass] 31.4 pg Normal 25.9-34.0 [facility] Comment on above: Performed By: #### C BC #### [facility] [address] [place] [address] Dr. Alexis Brink MCHC (RBC) [Mass/Vol] 33.8 g/dL Normal 29.9-35.2 [facility] Comment on above: Performed By: #### C BC #### [facility] [address] [place] [address] Dr. Alexis Brink MCV (RBC) [Entitic vol] 92.9 fL Normal 80.0-94.0 [facility] Comment on above: Performed By: #### C BC #### [facility] [address] [place] [address] Dr. lAexis Brink MONO # 0.7 103/ul Normal 0.3-0.8 [facility] Comment on above: Performed By: #### C BC #### [facility] [address] [place] [address] Dr. Alexis Brink Monocytes/100 WBC (Bld) 9.6 % Normal 1.7-12.0 [facility] Comment on above: Performed By: #### C BC #### [facility] [address] [place] [address] Dr. Alexis Brink NEUT # 4.6 103/ul Normal 1.4-6.5 [facility] Comment on above: Performed By: #### C BC #### [facility] [address] [place] [address] Dr. Alexis Brink Neutrophils/100 WBC (Bld) 64.5 % Normal 43.0-75.0 [facility] Comment on above: Performed By: #### C BC #### [facility] [address] [place] [address] Dr. Alexis Brink Platelet mean volume (Bld) [Entitic vol] 10.7 fL Normal 9.5-13.5 [facility] Comment on above: Performed By: #### C BC #### [facility] [address] [place] [address] Dr. Alexis Brink PLT 130 103/ul Critically low 150-450 [facility] Comment on above: Performed By: #### C BC #### [facility] [address] [place] [address] Dr. Alexis Brink RBC 4.90 106/ul Normal 4.70-6.10 [facility] Comment on above: Performed By: #### C BC #### [facility] [address] [place] [address] Dr. Alexis Brink WBC 7.1 103/ul Normal 4.0-11.0 [facility] Comment on above: Performed By: #### C BC #### [facility] [address] [address] [address] Alexis Brink DIRECT LDLon 02-09-2022 Cholesterol in LDL [Mass/Vol] 144 mg/dL Normal [facility] Comment on above: Performed By: #### D LDL, BMP ####[facility] [address] [place], [place] [address]Dr. Alexis Brink DLDL NORMAL SEE BELOW Normal [facility] Comment on above: Result Comment: <100 mg/dl OPTIMAL 100 - 129 mg/dl NEAR OR ABOVE OPTIMAL 130 - 159 mg/dl BORDERLINE HIGH 160 - 189 mg/dl HIGH >190 mg/dl VERY HIGH Performed By: #### D LDL, BMP ####[facility] [address] [id number]. Alexis Brink PROF CHEM 8 (BAS METB)on Anion gap [Moles/Vol] 9.3 mmol/L Normal [facility] Comment on above: Performed By: #### D LDL, BMP #### [facility] [address] [address] [address] Alexis Brink Calcium [Mass/Vol] 8.7 mg/dL Normal 8.5-10.1 [facility] Comment on above: Performed By: #### D LDL, BMP #### [facility] [address] [address] [address] Alexis Brink Chloride [Moles/Vol] 103 mmol/L Normal 98-107 [facility] Comment on above: Performed By: #### D LDL, BMP #### [facility] [address] [address] [address] Alexis Brink CO2 [Moles/Vol] 32.1 mmol/L Critically high 21.0-32.0 [facility] Comment on above: Performed By: #### D LDL, BMP #### [facility] [address] [address] [address] Alexis Brink Creatinine [Mass/Vol] 1.35 mg/dL Critically high 0.70-1.30 [facility] Comment on above: Performed By: #### D LDL, BMP #### [facility] [address] [address] [address] Alexis Brink EGFR-AF CHADIAN >60 Normal >=60 [facility] Comment on above: Performed By: #### D LDL, BMP #### [facility] [address] [address] [address] Alexis Brink EGFR-NON AF CHADIAN 51 mL/min/1.73m2 Critically low >=60 [facility] Comment on above: Performed By: #### D LDL, BMP #### [facility] [address] [address] [address] Alexis Brink Glucose [Mass/Vol] 90 mg/dL Normal 74-106 [facility] Comment on above: Performed By: #### D LDL, BMP #### [facility] [address] [address] [address] Alexis Brink Potassium [Moles/Vol] 4.4 mmol/L Normal 3.5-5.1 [facility] Comment on above: Performed By: #### D LDL, BMP #### [facility] [address] [address] [address] Alexis Brink Sodium [Moles/Vol] 140 mmol/L Normal 136-145 [facility] Comment on above: Performed By: #### D LDL, BMP #### [facility] [address] [place] [address] Dr. Alexis Brink Urea nitrogen [Mass/Vol] 16.0 mg/dL Normal 7.0-18.0 [facility] Comment on above: Performed By: #### D LDL, BMP #### [facility] [address] [address] [address] Alexis Brink Urea nitrogen/Creatinin e [Mass ratio] 11.9 mg/mg Normal [facility] Comment on above: Performed By: #### D LDL, BMP #### [facility] [address] [address] [address] Alexis Brink UA RANDOMon 02-09-2022 Bilirubin Ql (U) Negative Normal NEGATIVE [facility] Comment on above: Performed By: #### U A #### [facility] [address] [place] [address] Dr. Alexis Brink Clarity (U) CLEAR Normal CLEAR [facility] Comment on above: Performed By: #### U A #### [facility] [address] [place] [address] Dr. Alexis Brink Color (U) YELLOW Normal YELLOW [facility] Comment on above: Performed By: #### U A #### [facility] [address] [place] [address] Dr. Alexis Brink Glucose Ql (U) Negative Normal NEGATIVE [facility] Comment on above: Performed By: #### U A #### [facility] [address] [place] [address] Dr. Alexis Brink Hemoglobin Ql (U) Negative Normal NEGATIVE [facility] Comment on above: Performed By: #### U A #### [facility] [address] [place] [address] Dr. Alexis Brink Ketones Ql (U) Negative Normal NEGATIVE [facility] Comment on above: Performed By: #### U A #### [facility] [address] [place] [address] Dr. Alexis Brink LEUKOCYTES Negative Normal NEGATIVE [facility] Comment on above: Performed By: #### U A #### [facility] [address] [place] [address] Dr. Alexis Brink Nitrite Ql (U) Negative Normal NEGATIVE [facility] Comment on above: Performed By: #### U A #### [facility] [address] [place] [address] Dr. Alexis Brink pH (U) 7.0 [pH] Normal 5-9 [facility] Comment on above: Performed By: #### U A #### [facility] [address] [place] [address] Dr. Alexis Brink SPEC GRAVITY 1.015 Normal 1.005-<=1.025 [facility] Comment on above: Performed By: #### U A #### [facility] [address] [place] [address] Dr. Alexis Brink UA PROTEIN Negative Normal NEGATIVE/ TRACE [facility] Comment on above: Performed By: #### U A #### [facility] [address] [place], [place] [address] Dr. Alexis Brink Urobilinogen Qn (U) 1.0 {Kay'U}/dL Normal 0.2 - 1.0 [facility] Comment on above: Performed By: #### U A #### [facility] [address] [place], [place] [address] Dr. Alexis Brink XR CHEST 2 Von [...] by: LYDIA HAWLEY Date: 2021-12-06 15:42 Normal [facility] Nonvisit Note - PTon 018 Nonvisit Note - PT Cert letter refaxed for signature this date - third and final attempt. Normal [facility] Nonvisit Note - PTon 018 Nonvisit Note - PT Cert letter refaxed to Dr Gooden's office. Second attempt. Normal [facility] Coding Summary.on 01-25-2018 Coding Summary. CODING DATE: 01/25/2018 FINAL [facility] STATUS: PAYOR: Medicare ADMIT DX: [...] [place] Date Saved: 01/25/2018 10:54 am Normal [facility] Coding Summary. CODING DATE: 01/25/2018 FINAL [facility] STATUS: PAYOR: Medicare ADMIT DX: [...] [place] Date Saved: 01/25/2018 10:54 am Normal [facility] SURGICAL PATHOLOGYon 05-15-2 018 SURGICAL PATHOLOGY [facility]: [id number] Physician: BETH GOODEN MD FINAL DIAGNOSISRight hip, [...] to 8.5 x 8.5 x 1.8 cm. Bench Examiner sectionsare submitted as follows: A1 soft tissue, A2 bone submitted afterdecalcification.B F/billz 01/01/2018 Gross examination performed at [facility], [address] [place] [id number] of Report: 01/07/2018Date of Procedure: 01/01/2018Date of Receipt: 01/01/2018Submitted by: BETH GOODEN MDLocation: [id number] interpretation performed at [facility], [address] [place] [id number]. Normal [facility] Comment on above: Performed By: #### S ####See report for performing lab information. Vital Signs Date Time Vital Sign Value Performing Clinician Facility 10-01-2024 08:35-0500 Body height 167.64 cm [facility] 10-01-2024 08:35-0500 Body mass index (BMI) [Ratio] 28.5 kg/m2 [facility] 10-01-2024 08:35-0500 Body weight 80.34 kg [facility] 10-01-2024 08:35-0500 Diastolic blood pressure 74 mm[Hg] [facility] 10-01-2024 08:35-0500 Heart rate 67 /min [facility] 10-01-2024 08:35-0500 Respiratory rate 16 /min [facility] 10-01-2024 08:35-0500 Systolic blood pressure 155 mm[Hg] [facility] 05-28-2024 08:30-0400 Body height 167.64 cm [facility] 05-28-2024 08:30-0400 Body mass index (BMI) [Ratio] 27.1 kg/m2 [facility] 05-28-2024 08:30-0400 Body weight 76.31 kg [facility] 05-28-2024 08:30-0400 Diastolic blood pressure 89 mm[Hg] [facility] 05-28-2024 08:30-0400 Heart rate 61 /min [facility] 05-28-2024 08:30-0400 Respiratory rate 12 /min [facility] 05-28-2024 08:30-0400 Systolic blood pressure 139 mm[Hg] [facility] 01-22-2024 09:16-0400 Body height 167.64 cm [facility] 01-22-2024 09:16-0400 Body mass index (BMI) [Ratio] 29.3 kg/m2 [facility] 01-22-2024 09:16-0400 Body weight 82.55 kg [facility] 01-22-2024 09:16-0400 Diastolic blood pressure 72 mm[Hg] [facility] 01-22-2024 09:16-0400 Heart rate 64 /min [facility] 01-22-2024 09:16-0400 Respiratory rate 20 /min [facility] 01-22-2024 09:16-0400 Systolic blood pressure 131 mm[Hg] [facility] 09-28-2023 11:00-0500 Body height 167.64 cm Cecilio Ball Other [facility] [employer] Other 09-28-2023 11:00-0500 Body mass index (BMI) [Ratio] 30.24 kg/m2 Cecilio Ball Other [facility] [employer] Other 09-28-2023 11:00-0500 Body weight 85 kg Cecilio Ball Other [facility] [employer] Other 09-28-2023 11:00-0500 Respiratory rate 20 /min Cecilio Ball Other [facility] [employer] Other 09-28-2023 11:00-0500 SaO2% (BldA) [Mass fraction] 97 % Cecilio Ball Other [employer] [facility] [employer] Other 09-11-2023 10:45-0500 Body height 167.64 cm Cecilio Ball Other [employer] Other 09-11-2023 10:45-0500 Body mass index (BMI) [Ratio] 29.86 kg/m2 Cecilio Ball Other [employer] Other 09-11-2023 10:45-0500 Body temperature 97.5 [degF] Cecilio Ball Other [employer] Other 09-11-2023 10:45-0500 Body weight 83.92 kg Cecilio Ball Other [employer] Other 09-11-2023 10:45-0500 Diastolic blood pressure 81 mm[Hg] Cecilio Ball Other [employer] Other 09-11-2023 10:45-0500 Respiratory rate 20 /min Cecilio Ball Other [employer] Other 09-11-2023 10:45-0500 SaO2% (BldA) [Mass fraction] 98 % Cecilio Ball Other [employer] Other 09-11-2023 10:45-0500 Systolic blood pressure 161 mm[Hg] Cecilio Ball Other [employer] Other 08-01-2023 10:15-0500 Body height 167.64 cm Cecilio Ball Other [employer] Other 08-01-2023 10:15-0500 Body mass index (BMI) [Ratio] 29.86 kg/m2 Cecilio Ball Other [employer] Other 08-01-2023 10:15-0500 Body weight 83.92 kg Cecilio Ball Other [employer] Other 12-13-2023 10:15-0500 Diastolic blood pressure 79 mm[Hg] Cecilio Ball Other [employer] Other 08-01-2023 10:15-0500 Respiratory rate 20 /min Cecilio Ball Other [employer] Other 08-01-2023 10:15-0500 Systolic blood pressure 172 mm[Hg] Cecilio Ball Other [employer] Other 07-17-2023 10:15-0500 Body height 167.64 cm Cecilio Ball Other [employer] Other 07-17-2023 10:15-0500 Body mass index (BMI) [Ratio] 29.89 kg/m2 Cecilio Ball Other [employer] Other 07-17-2023 10:15-0500 Body weight 84.01 kg Cecilio Ball Other [employer] Other 07-17-2023 10:15-0500 Diastolic blood pressure 78 mm[Hg] Cecilio Ball Other [employer] Other 07-17-2023 10:15-0500 Respiratory rate 20 /min Cecilio Ball Other [employer] Other 07-17-2023 10:15-0500 Systolic blood pressure 172 mm[Hg] Cecilio Ball Other [employer] Other 07-10-2023 14:45-0500 Body height 167.64 cm Cecilio Ball Other [employer] Other 07-10-2023 14:45-0500 Body mass index (BMI) [Ratio] 29.47 kg/m2 Cecilio Ball Other [employer] Other 07-10-2023 14:45-0500 Body weight 82.83 kg Cecilio Ball Other [employer] Other 07-10-2023 14:45-0500 Diastolic blood pressure 80 mm[Hg] Cecilio Ball Other [employer] Other 07-10-2023 14:45-0500 Respiratory rate 20 /min Cecilio Ball Other [employer] Other 07-10-2023 14:45-0500 Systolic blood pressure 150 mm[Hg] Cecilio Ball Other [employer] Other 06-20-2023 08:30-0400 Body height 167.64 cm Cecilio Ball Other [employer] Other 06-20-2023 08:30-0400 Body mass index (BMI) [Ratio] 29.6 kg/m2 Cecilio Ball Other [employer] Other 06-20-2023 08:30-0400 Body weight 83.19 kg Cecilio Ball Other [employer] Other 06-20-2023 08:30-0400 Diastolic blood pressure 76 mm[Hg] Cecilio Ball Other [employer] Other 06-20-2023 08:30-0400 Respiratory rate 20 /min Cecilio Ball Other [employer] Other 06-20-2023 08:30-0400 Systolic blood pressure 157 mm[Hg] Cecilio Ball Other [employer] Other 05-30-2023 13:45-0400 Body height 167.64 cm Cecilio Ball Other [employer] Other 05-30-2023 13:45-0400 Body mass index (BMI) [Ratio] 28.95 kg/m2 Cecilio Ball Other [employer] Other 05-30-2023 13:45-0400 Body weight 81.38 kg Cecilio Ball Other [employer] Other 05-30-2023 13:45-0400 Diastolic blood pressure 78 mm[Hg] Cecilio Ball Other [employer] Other 05-30-2023 13:45-0400 Respiratory rate 16 /min Cecilio Ball Other [employer] Other 05-30-2023 13:45-0400 Systolic blood pressure 158 mm[Hg] Cecilio Ball Other [employer] Other 02-14-2023 08:30-0400 Body height 167.64 cm Cecilio Ball Other [employer] Other 02-14-2023 08:30-0400 Body mass index (BMI) [Ratio] 28.57 kg/m2 Cecilio Ball Other [employer] Other 02-14-2023 08:30-0400 Body weight 80.29 kg Cecilio Ball Other [employer] Other 02-14-2023 08:30-0400 Diastolic blood pressure 80 mm[Hg] Cecilio Ball Other [employer] Other 02-14-2023 08:30-0400 Respiratory rate 16 /min Cecilio Ball Other [employer] Other 02-14-2023 08:30-0400 Systolic blood pressure 135 mm[Hg] Cecilio Ball Other [employer] Other 02-01-2023 08:15-0400 Body height 167.64 cm Jose Enrique Ossian II Other [employer] Other 02-01-2023 08:15-0400 Body mass index (BMI) [Ratio] 27.44 kg/m2 Jose Enrique Landersisle II Other [employer] Other 02-01-2023 08:15-0400 Body weight 77.11 kg Jose Enrique Ossian II Other [employer] Other 12-11-2022 10:30-0400 Body height 167.64 cm Cecilio Ball Other [employer] Other 12-11-2022 10:30-0400 Body mass index (BMI) [Ratio] 28.66 kg/m2 Cecilio Ball Other [employer] Other 12-11-2022 10:30-0400 Body weight 80.56 kg Cecilio Ball Other [employer] Other 12-11-2022 10:30-0400 Diastolic blood pressure 76 mm[Hg] Cecilio Ball Other [employer] Other 12-11-2022 10:30-0400 Respiratory rate 12 /min Cecilio Ball Other [employer] Other 12-11-2022 10:30-0400 Systolic blood pressure 151 mm[Hg] Cecilio Ball Other [employer] Other 11-09-2022 16:00-0400 Body mass index (BMI) [Ratio] 29.21 kg/m2 Jose Enrique Landersisle II Other [employer] Other 11-09-2022 16:00-0400 Body weight 82.1 kg Jose Enrique Leblanc CHERELLE Other [employer] Other 11-09-2022 10:30-0400 Body height 167.64 cm Cecilio Ball Other [employer] Other 11-09-2022 10:30-0400 Body mass index (BMI) [Ratio] 29.23 kg/m2 Cecilio Ball Other [employer] Other 11-09-2022 10:30-0400 Body weight 82.15 kg Cecilio Ball Other [employer] Other 11-09-2022 10:30-0400 Diastolic blood pressure 79 mm[Hg] Cecilio Ball Other [employer] Other 11-09-2022 10:30-0400 Respiratory rate 20 /min Cecilio Ball Other [employer] Other 11-09-2022 10:30-0400 Systolic blood pressure 152 mm[Hg] Cecilio Ball Other [employer] Other 10-12-2022 10:00-0500 Body height 167.64 cm Cecilio Ball Other [employer] Other 10-12-2022 10:00-0500 Body mass index (BMI) [Ratio] 29.24 kg/m2 Cecilio Ball Other [employer] Other 10-12-2022 10:00-0500 Body weight 82.19 kg Cecilio Ball Other [employer] Other 10-12-2022 10:00-0500 Diastolic blood pressure 70 mm[Hg] Cecilio Ball Other [employer] Other 10-12-2022 10:00-0500 Respiratory rate 12 /min Cecilio Benjamin Other [employer] [facility] [employer] Other 10-12-2022 10:00-0500 Systolic blood pressure 102 mm[Hg] Cecilio Benjamin Other [employer] Other Encounters Encounter Date Encounter Type Care Provider Facility Start: 10-01-2024 End: 10-01-2024 ambulatory [facility] Work Phone: Start: 10-01-2024 End: 10-01-2024 Patient encounter procedure [facility] Work Phone: Start: 08-18-2024 End: 08-18-2024 ambulatory Maddie Villalobos MD Facility:[facility] Start: 08-04-2024 End: 08-04-2024 ambulatory Maddie Villalobos MD Facility:[facility] Start: 07-14-2024 End: 07-14-2024 ambulatory Andbeto Villalobos MD Facility:[facility] Start: 05-28-2024 End: 05-28-2024 ambulatory [facility] Work Phone: Start: 05-28-2024 End: 05-28-2024 Patient encounter procedure [facility]: Start: 05-26-2024 End: 05-26-2024 ambulatory Andbeto Villalobos MD Facility:[facility] Start: 04-07-2024 End: 04-07-2024 ambulatory Andbeto Villalobos MD Facility:[facility] Start: 03-31-2024 End: 03-31-2024 ambulatory Andbeto Villalobos MD Facility:[facility] Start: 03-24-2024 End: 03-24-2024 ambulatory Andbeto Villalobos MD Facility:[facility] Start: 03-10-2024 End: 03-10-2024 ambulatory Maddie Villalobos MD Facility:[facility] Start: 02-25-2024 End: 02-25-2024 ambulatory [facility] Start: 02-11-2024 End: 02-11-2024 ambulatory Maddie Villalobos MD Facility: [facility] Start: 01-28-2024 End: 01-28-2024 ambulatory Maddie Villalobos MD Facility:[facility] Start: 01-22-2024 End: 01-22-2024 ambulatory [facility] Work Phone: Start: 01-22-2024 End: 01-22-2024 Patient encounter procedure [facility] Work Phone: Start: 10-30-2023 Non-patient / Non-visit [facility] Work Phone: Start: 09-28-2023 End: 09-28-2023 ambulatory Cecilio Benjamin Other [employer] Other Start: 09-28-2023 Office outpatient vi sit 15 minutes Cecilio Ball [facility] Start: 09-28-2023 Telephone encounter Cecilio Benjamin FP [facility] Start: 09-21-2023 End: 09-21-2023 ambulatory Cecilio Benjamin Other [employer] Other Start: 09-21-2023 Telephone encounter Cecilio Benjamin FP G [facility] Start: 09-11-2023 End: 09-11-2023 ambulatory Cecilio Ball Other [employer] Other Start: 09-11-2023 Office outpatient vi sit 15 minutes Cecilio Ball [facility] Start: 09-11-2023 Telephone encounter Cecilio Benjamin FP [facility] Start: 09-03-2023 End: 09-03-2023 ambulatory Cecilio Ball Other [employer] Other Start: 09-03-2023 Telephone encounter Cecilio Ball [facility] Start: 08-03-2023 End: 08-03-2023 ambulatory Cecilio Ball Other [employer] Other Start: 08-03-2023 Telephone encounter Cecilio Ball [facility] Start: 08-01-2023 End: 08-01-2023 ambulatory Cecilio Ball Other [employer] Other Start: 08-01-2023 Office outpatient vi sit 15 minutes Cecilio Ball [facility] Start: 07-17-2023 End: 07-17-2023 ambulatory Cecilio Ball Other [employer] Other Start: 07-17-2023 Office outpatient vi sit 15 minutes Cecilio Ball [facility] Start: 07-10-2023 End: 07-10-2023 ambulatory Cecilio Ball Other [employer] Other Start: 07-10-2023 Office outpatient vi sit 15 minutes Cecilio Ball [facility] Start: 06-20-2023 End: 06-20-2023 ambulatory Cecilio Ball Other [employer] Other Start: 06-20-2023 Office outpatient vi sit 25 minutes Cecilio Ball [facility] Start: 06-15-2023 End: 06-15-2023 ambulatory Cecilio Ball Other [employer] Other Start: 06-15-2023 Telephone encounter Cecilio Ball [facility] Start: 05-30-2023 End: 05-30-2023 ambulatory Cecilio Ball Other [employer] Other Start: 05-30-2023 Office outpatient vi sit 15 minutes Cecilio Ball [facility] Start: 03-20-2023 Telephone encounter David Jaeger DO Work Phone: [facility] Comment on above: Follow Up Phone Call Start: 03-15-2023 End: 03-15-2023 ambulatory DAVID JAEGER Facility:[facility] Start: 02-27-2023 Orders Only David A Donald ekaterina DO Work Phone: Procedures Comment on above: Pseudoclaudication s yndrome (Primary Dx); Lumbar radiculopathy Start: 02-26-2023 Telephone encounter David Jaeger DO Work Phone: [facility] Comment on above: Procedure Start: 02-19-2023 Telephone encounter David Sis Jaeger DO Work Phone: [facility] Comment on above: Appointment Start: 02-14-2023 End: 02-14-2023 ambulatory Cecilio Benjamin Other [employer] Other Start: 02-14-2023 Patient encounter procedure Cecilio Benjamin [facility] Start: 02-13-2023 End: 02-13-2023 ambulatory Cecilio Benjamin Other [employer] Other Start: 02-13-2023 Telephone encounter Cecilio DENISE [facility] Start: 02-08-2023 End: 02-08-2023 ambulatory Cecilio Sourav Other [employer] Other Start: 02-08-2023 Telephone encounter Cecilio Sourav DENISE [facility] Start: 02-01-2023 End: 02-01-2023 ambulatory Jose Enrique Leblanc II Other [employer] Other Start: 02-01-2023 Office outpatient vi sit 25 minutes Jose Enrique Leblanc II [facility] Start: 12-11-2022 End: 12-11-2022 ambulatory Cecilio Benjamin Other [employer] Other Start: 12-11-2022 Office outpatient vi sit 15 minutes Cecilio Benjamin [facility] Start: 11-09-2022 End: 11-09-2022 ambulatory Jose Enrique Leblanc II Facility:[facility] Start: 11-09-2022 End: 11-09-2022 Patient encounter procedure MD Jose Enrique Leblanc II Work Phone: [facility] Start: 11-09-2022 End: 11-09-2022 ambulatory MD Jose Enrique Lebalnc II Work Phone: [facility] Work Phone: Start: 11-09-2022 Office outpatient ne w 45 minutes Jose Enrique Leblanc II [facility] Start: 11-09-2022 Office outpatient vi sit 15 minutes Cecilio Benjamin [facility] Start: 11-05-2022 End: 11-05-[address] CECILIO BENJAMIN Facility:[facility] Start: 10-12-2022 End: 10-12-2022 ambulatory Cecilio Benjamin Other [employer] Other Start: 10-12-2022 Office outpatient vi sit 25 minutes Cecilio Benjamin [facility] Start: 09-27-2022 End: 09-27-2022 ambulatory Cecilio Benjamin Other [employer] Other Start: 09-27-2022 Telephone encounter Cecilio Benjamin FP [facility] Start: 09-26-2022 End: 09-27-[address] CECILIO BENJAMIN Facility:[facility] Start: 08-25-2022 End: 08-25-2022 ambulatory Cecilio Benjamin Other [employer] Other Start: 08-25-2022 Telephone encounter Cecilio DENISE [facility] Start: 08-10-2022 End: 08-10-[address] CECILIO BENJAMIN Facility:[facility] Start: 02-09-2022 End: 02-10-[address] CECILIO BENJAMIN Facility:[facility] Start: 12-06-2021 End: 12-07-[address] CECILIO BENJAMIN Facility:[facility] Start: 01-22-2018 End: 04-20-2018 Patient encounter [id number] AUGUSTINE BENJAMIN Facility:[facility] Procedures Date Procedure Procedure Detail Performing Clinician Start: 11-09-2022 Pelvis X-ray MD Jose Enrique Leblanc II Work Phone: Start: 11-09-2022 Radiologic examinati on of knee MD Jose Enrique Leblanc II Work Phone: Plan of Treatment Date Care Activity Detail Author Start: 01-22-2024 Patient referral [facility] Work Phone: Start: 04-20-2023 Influenza vaccination INFLUENZA (#1) [facility] Start: 10-01-2022 COVID-19 VACCINE (5 - Moderna series) COVID-19 VACCINE (5 - Moderna series) [facility] Start: 08-20-2022 ADVANCE DIRECTIVE DISCUSSION ADVANCE DIRECTIVE DISCUSSION [facility] Start: 08-20-2022 DEPRESSION ASSESSMENT DEPRESSION ASS ESSMENT [facility] Start: 09-19-2021 COVID-19 VACCINE (4 - Booster for Moderna series) COVID-19 VACCINE (4 - Booster for Moderna series) [facility] Start: 09-19-2021 COVID-19 VACCINE (4 - Moderna series) COVID-19 VACCINE (4 - Moderna series) [facility] Start: 01-02-2021 DIABETES SCREEN DIABETES SCREEN [facility] Start: 1991 SHINGRIX VACCINE (1 of 2) SHINGRIX VACCINE (1 of 2) [facility] Start: 1960 Urine microalbumin profile DTAP,TDAP,TD (1 - Tdap) [facility] Start: 1959 SPIROMETRY SPIROMETRY [facility] Start: 1947 PNEUMOCOCCAL: 65+ (1 - PCV) PNEUMOCOCCAL: 65+ (1 - PCV) [facility] Comprehensive metabo lic 2000 panel - Serum or Plasma [facility] Patient referral [facility] Work Phone: SPINE INTERVENTION PROCEDURE SPINE INTERVENTION PROCEDURE Procedures Routine Spinal stenosis, lumbar region with neurogenic claudication Lumbar radiculopathy, chronic Ordered: 02/19/2023 [facility] Work Phone: Comment on above: Ordered: 02/19/2023 [facility] Immunizations Immunization Date Immunization Notes Care Provider Coleman bermudez 05-28-2024 influenza, high dose seasonal, preservative-free [facility] 05-30-2023 COVID-19 Vaccine Moderna - Documentation Purposes Only Cecilio Benjamin Other [facility] 05-30-2023 influenza virus vaccine, unspecified formulation [facility] 05-30-2023 influenza, high dose seasonal, preservative-free Cecilio Benjamin Other [facility] [employer] Other 06-13-2022 influenza virus vaccine, split virus (incl. purified surface antigen) Cecilio Sourav Other [facility] [employer] Other 06-13-2022 influenza virus vaccine, unspecified formulation [facility] 06-13-2022 influenza, high dose seasonal, preservative-free Jose Enrique Ossian II Other [facility] [employer] Other 05-31-2022 COVID-19 Pfizer (bivalent) Jose Enrique Ossian II Other [facility] 05-31-2022 COVID-19 Pfizer (Pediatric) Cecilio Benjamin Other [facility] 07-25-2021 COVID-19 Vaccine Moderna - Documentation Purposes Only Jose Enrique Ossian II Other [facility] 05-03-2021 zoster vaccine recombinant Jose Enrique Ossian II Other [facility] 05-03-2021 zoster vaccine, live Benjami n Ball Other [facility] 01-28-2021 zoster vaccine recombinant Jose Enrique Ossian II Other [facility] 01-28-2021 zoster vaccine, live Benjami n Ball Other [facility] 10-25-2020 COVID-19 Vaccine Moderna - Documentation Purposes Only Jose Enrique Ossian II Other [facility] 09-27-2020 COVID-19 Vaccine Moderna - Documentation Purposes Only Jose Enrique Benji II Other [facility] 05-24-2020 influenza virus vaccine, split virus (incl. purified surface antigen) Cecilio Benjamin Other [facility] [employer] Other 05-24-2020 influenza virus vaccine, unspecified formulation [facility] 01-03-2019 diphtheria, tetanus toxoids and acellular pertussis vaccine, unspecified formulation Cecilio Benjamin Other [facility] 12-25-2018 pneumococcal polysaccharide vaccine, 23 valent Jose Enrique Ossian II Other [facility] 04-30-2018 influenza virus vaccine, split virus (incl. purified surface antigen) Cecilio Benjamin Other [facility] [employer] Other 04-30-2018 influenza virus vaccine, unspecified formulation [facility] 04-09-2017 influenza virus vaccine, split virus (incl. purified surface antigen) Cecilio Benjamin Other [facility] [employer] Other 04-09-2017 influenza virus vaccine, unspecified formulation [facility] 05-31-2016 zoster vaccine, live Jose Enrique Ossian II Other [facility] 05-13-2016 influenza virus vaccine, split virus (incl. purified surface antigen) Cecilio Benjamin Other [facility] [employer] Other 05-13-2016 influenza virus vaccine, unspecified formulation [facility] 05-09-2015 influenza virus vaccine, split virus (incl. purified surface antigen) Cecilio Benjamin Other [facility] [employer] Other 05-09-2015 influenza virus vaccine, unspecified formulation [facility] 03-06-2015 pneumococcal conjuga te vaccine, 13 valent Jose Enrique Ossian II Other [facility] 05-07-2014 tetanus and diphther ia toxoids, adsorbed, preservative free, for adult use (5 Lf of tetanus toxoid and 2 Lf of diphtheria toxoid) Cecilio Benjamin Other [facility] 04-23-2013 tetanus and diphther ia toxoids, adsorbed, preservative free, for adult use (5 Lf of tetanus toxoid and 2 Lf of diphtheria toxoid) Cecilio Benjamin Other [facility] 08-21-2012 pneumococcal polysaccharide vaccine, 23 valent Cecilio Benjamin Other [facility] 12-12-2011 zoster vaccine, live Jose Enrique Leblanc II Other [facility] Payers Date Payer Category Payer Self-pay 2022 Unknown [id number] 2018 Medicare [id number] 2006 Medicare [id number] 2006 Unknown [id number] 1959 Medicare [id number] 2.1 [id number] 1959 Unknown [id number] 2.16. [id number] 1941 Unknown [id number] 2.16.84 0.1.097362.3.579.2.593 1941 Unknown [id number] 2.16.84 0.1.618210.3.579.2.593 1941 Unknown [id number] 2.16.84 0.1.921892.3.579.2.593 1941 Unknown [id number] 2.16.84 0.1.304348.3.579.2.593 1941 Unknown [id number] 2.16.84 0.1.126923.3.579.2.593 1941 Unknown [id number] 2.16. 840.1.086785.3.579.2.196 1941 Unknown [id number] 2.16. 840.1.298962.3.579.2.196 1941 Unknown [id number] 2.16. 840.1.950088.3.579.2.196 1941 Unknown [id number] 2.16. 840.1.045195.3.579.2.196 1941 Unknown [id number] 2.16. 840.1.723330.3.579.2.196 1941 Unknown [id number] 2.16. 840.1.787501.3.579.2.196 1941 Unknown [id number] 2.16. 840.1.768523.3.579.2.196 1941 Unknown [id number] 2.16. 840.1.930585.3.579.2.196 1941 Unknown [id number] 2.16. 840.1.281006.3.579.2.196 1941 Unknown [id number] 2.16. 840.1.512827.3.579.2.196 1941 Unknown [id number] 2.16. 840.1.948006.3.579.2.196 Unknown [id number] 2.16.8 40.1.232115.3.579.2.531 Social History Date Type Detail Facility Start: 05-09-2021 End: 03-15-2023 Sex Assigned At [facility] Start: 1940 Sex Assigned At Male [facility] Start: 06-13-2017 End: 01-22-2024 Tobacco smoking status [facility] Never smoked tobacco [facility] Start: 06-13-2017 Tobacco use and exposure Smokeless tobacco non-user [facility] Start: 05-09-2021 Alcohol intake Current drinke r of alcohol (finding) [facility] Start: 12-11-2017 Alcohol Comment Katie's in coffee [facility] Start: 1940 Sex Assigned At Not on file [facility] Start: 05-09-2021 End: 03-15-2023 History of Social function [facility] Adult Depression Screening Assessment 1 [facility] Start: 10-01-2024 Sex Male (finding) [facility] Medical Equipment Procedure Code Equipment Code Equipment Origin al Text Equipment Identifier Dates Vera Swivelock Tenodesis 8mm Biocomposite 19.5mm Suture [place] Eyelet - [id number] Start: 06-29-2017 Sleeve V40 +0mm Offset [place] Taper Titanium Adapter Hip - [id number] Start: 01-01-2018 Screw [employer] Secur-[employer] Torx 6.5mm Titanium 20mm Bone Sterile Acetabular - [id number] Start: 01-01-2018 Clinical Notes 08-25-2022 to 10-01-2024 Note Date & Type Note Facility 10-01-2024 Evaluation note Diagnosis Onset Date Resolution Chronic bronchitis, simple acute October 01, 2 025 8:30am Chronic kidney disease, stage 3a acute October 01, 2 025 8:30am Generalized anxiety disorder acute October 01, 025 8:30am Hypertension acute September 8:30am IFG (impaired fasting glucose) acute October 01, 025 8:30am Lumbar spondylolysis acute Febr uary 2024 8:30am Obstructive sleep apnea acute F ebruary 2024 8:30am [facility] Work Phone: 1(450) 801-155906-04-2024 Evaluation note* Diagnosis Onset Date Resolution Status Chronic bronchitis, simple a cute Chronic kidney disease, stage 3a acute Elevated cholesterol acute Generalized anxiety disorder acute Hypertension acute Lumbar spondylolysis acute Obstructive sleep apnea acut e Medicare annual wellness visit, subsequent noneactive [facility] Work Phone: 1(847) 665-295902-09-2024 Evaluation note* Encounter Date Diagnosis Assessment Notes [...] and clinically improving, no further treatment necessary [facility] Other 02-02-2024 Evaluation note* Encounter Date Diagnosis Assessment Notes Treatment Notes Treatment Clinical Notes Sep, Carotid bruit, unspecified laterality (ICD-10 - R09.89) [facility] Other 01-23-2024 Evaluation note* Encounter Date Diagnosis [...] tid Initiate Prednisone _update office on Sunday [facility] Other 01-15-2024 Evaluation note* Encounter Date Diagnosis Assessment Notes Treatment Notes Treatment Clinical Notes Aug, JONATHAN (generalized anxiety disorder) (ICD-10 - F41.1) [facility] Other 12-13-2023 Evaluation note* Encounter Date Diagnosis [...] best 2/3 readings w/ goal < 135/85 [facility] Other 11-28-2023 Evaluation note* Encounter Date Diagnosis [...] daily for blisters and ulcerations. Moisturizers daily [employer] Other 11-21-2023 Evaluation note* Encounter Date Diagnosis [...] Call if develop increased pain or erythema [facility] Other 11-01-2023 Evaluation note* Encounter Date Diagnosis [...] use, the patient reduces the risk for LA, CVA, HTN, cardiac dysrhythmias and sudden cardiac [...] very active. No change in medical treatment [facility] Other 10-27-2023 Evaluation note* Encounter Date Diagnosis Assessment Notes Treatment Notes Treatment Clinical Notes May, JONATHAN (generalized anxiety disorder) (ICD-10 - F41.1) [facility] Other 10-11-2023 Evaluation note* Encounter Date Diagnosis [...] They may safely use Tylenol as needed. [facility] Other 08-01-2023 Miscellaneous Notes* Telephone Encounter - Neida Porter MA - 03/20/2023 12:26 PM EDT DATE OF SERVICE: 03/15/2023 PATIENT'S PHONE NUMBERS: [phone] (home) OR @[facility]@ PROVIDER: Dr. Jaeger PROCEDURE: Elective Pain Management Procedure Left message on machine Asked pt to call back and speak with the specialty triage nurse with update. Please obtain percentage better and the duration of improvement. Please inquire if there were any problems afterwards. Neida Brink [facility] Miscellaneous Notes* Telephone Encounter - Linda Knox LPN - 02/26/2023 4:42 PM EDT Spoke to patient in reguards to pre procedure instructions. Pt must have a uke driver. Pt advised to arrive 30 min [...] Advised on location of ASC-2nd floor [facility] Pt will receive a follow up call several days after by a application development team lead. If you experience any increase in weakness, difficulty walking or significant increase in pain thatlast more than 4 hours, please proceed to the Emergency Room and tell them you had a spine procedure done recently. Additionally, call us and notify us of these symptoms. Please call [phone] if you have any questions. Pt verbalized understanding. [facility] Miscellaneous Notes* Telephone Encounter - Linda Knox LPN - 02/19/2023 11:57 AM EDT Order approved Spoke to daughter in reguards to pre procedure instructions. Daughter given scheduling number [phone] Pt must have a uke driver. Pt advised to arrive 30 min prior to the time given by the bean picker. Pt advised will also receive a call the day before from the surgery center to confirm date/time. Pt can eat and drink as normal. and Pt can take medications as normal. No alcohol 24 hours prior. Pt is on ASA.- 81 mg okay to take. and must Advised on location of ASC-2nd floor [facility] Pt will receive a follow up call several days after by a application development team lead. If you experience any increase in weakness, difficulty walking or significant increase in pain thatlast more than 4 hours, please proceed to the Emergency Room and tell them you had a spine procedure done recently. Additionally, call us and notify us of these symptoms. Please call [phone] if you have any questions. Pt verbalized [...] call Celi as patient cannot hear well [phone] Patient has been identified by name and birthdate. Duration of symptoms: N/A Person calling: daughter: Celi Rhodes patient at: N/A [phone] (home) [phone] (cell) Was an appointment scheduled: No Closing statement: Results or non-symptom based questions: Thank you for calling [facility], your call will be returned within the next business day. Camilla Jarrell Pss documented in this encounter[facility] Evaluation note* Encounter Date Diagnosis Assessment Notes [...] use, the patient reduces the risk for LA, CVA, HTN, cardiac dysrhythmias and sudden cardiac [...] (ICD-10 - F41.1) Healthy diet, keep active [facility] Other 06-22-2023 Evaluation note* Encounter Date Diagnosis Assessment Notes Treatment Notes Treatment Clinical Notes Jan, Elevated cholesterol (ICD-10 - E78.00) Jan, Stage 3a chronic kidney disease (ICD-10 - N18.31) Jan, Primary hypertension (ICD-10 - I10) Jan, Screening PSA (prostate specific antigen) (ICD-10 - Z12.5) Jan, High risk medication use (ICD-10 - Z79.899) [facility] Other 06-15-2023 Evaluation note* Encounter Date Diagnosis [...] this time 6. Follow up as needed [facility] Other 04-24-2023 Evaluation note* Encounter Date Diagnosis [...] use of statin, experiencing ADR and stopped [facility] Other 03-23-2023 Evaluation note* Encounter Date Diagnosis [...] - M17.12) Quad exercises, ice/heat and Tylenol [facility] Other 03-23-2023 Evaluation note* Encounter Date Diagnosis [...] injection well. 6. 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) [facility] 01-06-2023 Evaluation note* Encounter Date Diagnosis Assessment Notes Treatment Notes Treatment Clinical Notes Aug, Carotid bruit, unspecified laterality (ICD-10 - R09.89) [facility] Other Evaluation noteNo assessment information available [facility] Work Phone: Evaluation noteNo InformationNortSC[facility] [employer] Other Evaluation note* Diagnosis Spinal stenosis, lumbar region with neurogenic claudication- Primary Lumbar radiculopathy, chronic Thoracic or lumbosacral neuritis or radiculitis, unspecified documented in this [facility] Diagnosis Pseudoclaudication syndrome- Primary Spinal stenosis, lumbar region, with neurogenic claudication Lumbar radiculopathy Thoracic or lumbosacral neuritis or radiculitis, unspecified Pseudoclaudication syndrome Spinal stenosis, lumbar region, with neurogenic claudication Lumbar radiculopathy Thoracic or lumbosacral neuritis or radiculitis, unspecified [facility] Diagnosis Onset Date Resolution Status Chronic bronchitis, simple a cute Chronic kidney disease, stage 3a acute Elevated cholesterol acute Generalized anxiety disorder acute Hypertension acute Lumbar spondylolysis acute Obstructive sleep apnea acut e [facility] Work Phone: History general Narrative - [...] Medical History Primary osteoarthritis of left s [place] Medical History Ulnar neuropathy at elbow of [...] JANELLE 06/2017 Hospitalization History see surgical history [facility] Other Hospital Discharge instructionsAmbulatory Orders* Referral to Pain Management Location: None Selected [facility] Work Phone: Summary Purpose Family History Relationship Condition Age at Onset Recorded Date/T niru father Unknown Advance Directives Advance Directive Response Recorded Date/ Time Advance Directives No January 21 9:53am Advance Directive Response Recorded Date/ Time Advance Directives No January 21 8:53am Chief Complaint and Reason for Visit Chief [...] disorder Hypertension Lumbar spondylolysis Obstructive sleep apnea Chief Complaint Admit Date 4 month f/u October 01, 2024 8:30am Reason for Visit Admit Date Chronic bronchitis, simple September 8:30am Chronic kidney disease, stage 3a Februar y 2024 8:30am Generalized anxiety disorder October 012024 8:30am Hypertension October 01, 2024 8:30am IFG (impaired fasting glucose) October 01, 2024 8:30am Lumbar spondylolysis October 01, 2024 8:30am Obstructive sleep apnea October 01 025 8:30am Additional Source Comments (unrecognized sect ion and content) No Status Records FoundNo Status Records FoundNo Status Records FoundNo Status Records FoundNo Status Records FoundNo Status Records FoundNo Status Records Found INFORMATION SOURCE (unrecogn ized section and content) DATE CREATED AUTHOR 02/06/2018 [facility] DATE CREATED AUTHOR AUTHOR'S ORGANIZ ATION 06/10/2018 [facility] DATE CREATED AUTHOR AUTHOR'S ORGANIZ ATION 11/06/2022 [facility] DATE CREATED AUTHOR AUTHOR'S ORGANIZ ATION 12/21/2022 [facility] DATE CREATED AUTHOR AUTHOR'S ORGANIZ ATION 03/15/2023 [facility] DATE CREATED AUTHOR AUTHOR'S ORGANIZ ATION 03/22/2023 [facility] DATE CREATED AUTHOR AUTHOR'S ORGANIZ ATION 09/02/2024 [facility] REASON FOR VISIT (unrecogniz ed [...] Enrique Leblanc II, MD Attending Provider Active [employer] Relationship Specialty Start Date End Date Cecilio Benjamin DO PCP - General Internal Medicine 09/04/13 [employer] Relationship Specialty Start Date End Date Cecilio Benjamin DO PCP - General Internal Medicine 09/04/13 [employer] Relationship Specialty Start Date End Date Cecilio Benjamin DO PCP - General Internal Medicine 09/04/13 [employer] Relationship Specialty Start Date End Date Cecilio Benjamin DO PCP - General Internal Medicine 09/04/13 Team Status: Active Member Role Status Dates Cecilio Benjamin , Primary Care Provider Active Start: October 30, 2023 JUSTIN Gan Attending Provider Active Start : October 30, 2023 Team Status: Inactive Member Role Status Dates Cecilio Benjamin , Primary Care Provide r, Attending Provider Active Start: January 22, 2024 End: January 22, 2024 Team Status: Inactive Member Role Status Dates Cecilio Benjamin , DO Primary Care Provide r, Attending Provider Active Start: October 01, 2024 End: October 01, 2024 Goals (unrecognized section and content) Goals may be documented in a n alternate section Source Comments (unrecognize d section and content) In the event this informatio n is protected by the Federal Confidentiality of Alcohol and Drug Abuse Patient Records regulations: The Federal rules restrict any use of the information to criminally investigate or prosecute any alcohol or drug abuse patient.[facility] the event this information is protected by the Federal Confidentiality of Alcohol and Drug Abuse Patient Records regulations: The Federal rules restrict any use of the information to criminally investigate or prosecute any alcohol or drug abuse patient.[facility] the event this information is protected by the Federal Confidentiality of Alcohol and Drug Abuse Patient Records regulations: The Federal rules restrict any use of the information to criminally investigate or prosecute any alcohol or drug abuse patient.[facility] the event this information is protected by the Federal Confidentiality of Alcohol and Drug Abuse Patient Records regulations: The Federal rules restrict any use of the information to criminally investigate or prosecute any alcohol or drug abuse patient.[facility] FOR RECORDS PERTAINING TO PATIENTS WHO ARE [...] PRIMARY CLINICAL RECORDS. [facility] [facility]. provides no warranty or guarantee of the accuracy or completeness of information in this document.
--- NOTE | 2024-10-30 15:15 | PM.CN ---
Consult Note: HPI Data of Consult Patient: known to practice within the last 3 years Requesting Physician: Erica Hope NP Primary Care Provider: Cecilio Benjamin, DO Consult Narrative Reason for consult: low back, bilateral lower extremity pain Narrative: 84yom who presents for assessment. notes pain from low back into bilateral hips. imaging significant for severe stenosis at l4-5, as well as more moderate multilevel stenosis. very active, engages in >6 weeks of provider directed home exercises. uses tylenol prn. prior bilateral L4-5 TFESI provided >50% improvement in lumbar stenosis with NC but pt feels it is starting to wear off. Pain today 5/10 increasing at times to 9/10 with standing, walking, bending, lifting. JENNIFER 32%: moderate to severe pain with standing and walking as well as pain with travel. cc:: CC: Erica Hope NP Review of Systems ROS Status of ROS 10 or more systems reviewed and unremarkable except as noted in history and below [facility] Medical History Low back pain ?M54.50 - Low back pain, unspecified (ICD-10) Heartburn ?R12 - Heartburn (ICD-10) Sleep apnea ?G47.30 - Sleep apnea, unspecified (ICD-10) COPD (chronic obstructive pulmonary disease) ?J44.9 - Chronic obstructive pulmonary disease, unspecified (ICD-10) Asthma ?J45.909 - Unspecified asthma, uncomplicated (ICD-10) Hypertension ?I10 - Essential (primary) hypertension (ICD-10) Surgical History H/O cervical spine surgery ?Z98.890 - Other specified postprocedural states (ICD-10) S/P tonsillectomy and adenoidectomy ?Z90.89 - Acquired absence of other organs (ICD-10) History of ankle surgery ?Z98.890 - Other specified postprocedural states (ICD-10) S/P cholecystectomy ?Z90.49 - Acquired absence of other specified parts of digestive tract (ICD-10) S/P total hip arthroplasty ?Z96.649 - Presence of unspecified artificial hip joint (ICD-10) History of surgery on upper extremity ?Z98.890 - Other specified postprocedural states (ICD-10) Meds Home Medications and Allergies Home Medications ?Medication ?Instructions ?Recorded ?Confirmed ?Type albuterol sulfate 90 mcg/actuation 2 inh inhalation Q8H PRN shortness 01/28/24 08/04/24 History aerosol inhaler (Ventolin HFA) of breath or wheezing amlodipine 2.5 mg tablet 2.5 mg PO DAILY 01/28/24 08/04/24 History clonazepam 0.5 mg tablet 0.5 mg PO DAILY 01/28/24 08/04/24 History escitalopram oxalate 10 mg tablet 10 mg PO DAILY 01/28/24 08/04/24 History (Lexapro) fluticasone propionate 110 1 inh inhalation BID 01/28/24 08/04/24 History mcg/actuation HFA aerosol inhaler nabumetone 500 mg tablet 500 mg PO BID 01/28/24 08/04/24 History omeprazole 20 mg capsule,delayed 20 mg PO DAILY 01/28/24 08/04/24 History release tamsulosin 0.4 mg capsule (Flomax) 0.4 mg PO DAILY 01/28/24 08/04/24 History diazepam 10 mg tablet 10 mg PO TID PRN sedation 04/07/24 08/04/24 History Allergies Allergy/AdvReac Type Severity Reaction Status Date / Time bacitracin AdvReac Mild Rash Verified 08/04/24 11:06 Exam Narrative Exam Narrative: . Constitutional Documenting provider has reviewed patient's vital signs: yes Common normals: no apparent distress, oriented x3, healthy appearing, alert and well nourished General appearance: cooperative [facility] Common normals: normocephalic, hearing grossly normal bilaterally and moist oral mucous membranes Head and scalp: normocephalic Eye Common normals: PERRL Pupil: PERRL Neck & C-Spine Common normals: full ROM General: normal visual inspection Chest Common normals: inspection of chest normal Respiratory Common normals: normal respiratory effort, no retractions and no use of accessory muscles Back & Pelvis Lumbar spine/lower back: pain with ROM, straight leg raise positive right and straight leg raise positive left; no lumbar spinal tenderness Other: decreases sensation bilateral L4/5 increased pain with standing and walking, improved with forward flexion Neuro Common normals: oriented x3, CN's II-XII intact bilaterally, moves all extremities, no focal motor deficits, no sensory deficits noted and deep tendon reflexes 2+ bilaterally Sensorium/orientation: alert Motor exam: strength 5/5 throughout and no movement abnormalities noted Psych Common normals: mental status grossly normal, thought process normal, cooperative, affect normal, speech normal and activity/motor behavior normal Speech: normal speech Thought process: normal thought process Assessment and Plan Assessment and Plan (1) Lumbar stenosis with neurogenic claudication: Plan 83yom who presents for assessment. failed conservative measures, as noted. imaging reviewed, as noted. has had lumbar tfesi in the past with >50% relief for >3 months. given previous relief and current symptoms, prudent to repeat bilateral l4-5 tfesi under fluoroscopic guidance. continue current medications. f/u 2 weeks after injection
== END 2024-10-30 15:00 | disposition home or self-care (01) ==
LOC: PM 15:00
PROVIDERS: PCP Internal Medicine; Visit Provider Nurse Practitioner
DX: M48.062 Spinal stenosis, lumbar region with neurogenic claudication (principal)
CPT/HCPCS: G0463

== ENCOUNTER 2024-11-17 10:44 | Day surgery (SDC) | payer MEDICARE, OTHER, SELFPAY ==
--- OUTSIDE RECORDS SUMMARY | 2024-11-17 11:04 | XMS_ITS | CCD ---
Author Organization [facility] Care Team Providers Care Best Worker Name Role Phone CECILIO [phone] UNKNOWN Unavailable Unavailable BETH GOODEN Unavailable Unavailable [...] Attending Provider Jose Enrique Leblanc II Unavailable [phone] Jose Enrique Leblanc II Attending UnavailJose Enrique [...] Unavailable Gieditis , Maddie Carreno Attending Unavailable Girosemary WHARTON, Maddie Carreno Attending Unavailable Allergies Allergy Classification Reported Allergen(s) Allergy Type Date of Onset Reaction(s) Facility (7 sources) bacitracin; Translations: [bacitracin] Drug Allergy 09-11-2013 Unknown [facility] Repository (19 sources) Albuterol Drug Allergy Unknown [employer] Other (20 sources) HMG-CoA reductase inhibitor Drug allergy Unknown [employer] Other Medications Current Medications Medication Drug Class(es) Dates Sig (Normalized) Sig (Original) acetaminophen 325 mg oral tablet (20 sources) Start: 10-17-2023 take 2 tablets by mouth every eight hours as needed Acetaminophen 325 mg tablet Active 325 MG PO Every 8 hours as needed October 17, 2023 1:00am 2 tablets by [...] uth every 8 hours. (Mild pain reliever) aspirin 81 mg chewable tablet (6 sources) Platelet Aggregation Inhibitor, Nonsteroidal Anti-inflammatory Drug Start: 10-01-2024 take 1 tablet by mouth once daily Aspirin 81 mg tablet,chewable Active 81 MG PO Daily October 01, 2024 1:00am Start: 01-02-2018 take 1 tablet by christen [...] (5 sources) HMG-CoA Reductase Inhibitor Start: 09-27-19 take 1 tablet by mouth once daily in the evening Atorvastatin Calcium 10 MG 1 tablet Orally daily in evening for 30 day(s) Sep, Active clobetasol propionate 0.0005 mg/mg topical ointment (20 sources) Corticosteroid Start: 10-17-19 Clobetasol 0.05 % ointment Active 1 APPLIC TOPICAL Twice daily October 17, 2023 1:00am Clobetasol Propi caroline 0.05 % 1 application Externally Twice a day Active doxycycline hyclate 100 mg oral capsule (19 sources) Tetracycline-class Drug Start: 11-06-2024 take 1 capsule by mouth twice daily Doxycycline Hyclate 100 mg capsule Active 100 MG PO Twice daily November 06, 2024 12:00am Start: 10-17-2023 End: 10-19-2023 take 1 capsule by mouth twice daily Doxycycline Hyclate 100 mg capsule Discontinued 100 MG PO Twice daily October 17, 2023 1:00am October 19, 2023 11:06am Start: 07-10-2023 take 1 capsule by [facility] every twelve hours Doxycycline Hyclate 100 MG 1 capsule Orally Twice a day for 7 days Aug, Not-Taking/PRN escitalopram 10 mg oral tablet (20 sources) Serotonin Reuptake Inhibitor Start: 10-01-2024 take 1 tablet by mouth once daily Escitalopram Oxalate 10 mg tablet Active 10 MG PO Daily 90 October 01, 2024 10:09am Start: 04-02-2024 End: 10-01-2024 Escitalopram Oxalate 10 mg t ablet Discontinued 0 .ROUTE .COMPLEX April 02, 2024 1:32pm October 01, 2024 10:10am TAKE 1 TABLET AT BEDTIME Start: 04-02-2024 [...] 0 .ROUTE .COMPLEX 180 October 01, 2024 10:08am TAKE 1 TABLET TWICE A DAY Start: 10-17-2023 End: 04-02-2024 take 1 tablet by mouth twice daily Nabumetone 500 mg tablet Discontinued 500 MG PO Twice daily 180 90 October 19, 2023 11:07am April 02, 2024 1:34pm Start: 02-08-2021 nabumetone (RE LAFEN) 500 mg tablet predniSONE 20 mg oral tablet (4 sources) Start: 11-06-2024 Prednisone 20 mg tablet Active 20 MG PO As Directed November 06, 2024 12:00am 1 tab tid w/ food x 3 days, then bid w/ food x 3 days, then qd w/ food x 3 days Start: 09-11-2023 take 1 tablet by christen twice daily predniSONE 20 MG 1 tablet Orally bid w/ food for 5 days Aug, Active silver sulfADIAZINE 10 mg/ml topical cream (20 sources) Sulfonamide Antibacterial Start: 10-17-2023 Silver Sulfadiazine 1 % cream Active 1 [...] Active 0.4 MG PO Daily at bedtime October 01, 2024 10:08am Start: 01-07-2024 End: 10-01-2024 Tamsulosin 0.4 mg capsule Discontinued 0 .ROUTE .COMPLEX January 07, 2024 12:45pm October 01, 2024 10:10am TAKE 1 CAPSULE DAILY Start: 10-17-2023 End: [...] Drug Class(es) Dates Sig (Normalized) Sig (Original) [id number] 200 actuat albuterol 0.09 mg/actuat metered dose inhaler (20 sources) beta2-Adrenergic Agonist Start: 10-19-2023 End: 10-30-2023 take 2.5 mg by inhalation every four to six hours as needed for wheezing Albuterol Sulfate 2.5 mg /3 mL (0.083 %) solution for nebulization Active 2.5 MG INHALATION EVERY 4-6 HOURS as needed for shortness of breath or wheezing 540 October 30, 2023 1:20pm Start: 10-10-2023 End: 01-22-2024 take 1 puff(s) by inhalation every four to six hours as needed for wheezing Albuterol Sulfate 90 mcg/actuation HFA aerosol inhaler Discontinued 2 PUFF INHALATION EVERY 4-6 HOURS as needed for shortness of breath or wheezing 8.5 October 19, 2023 11:09am January 22, 2024 9:29am Start: 09-28-2023 Albuterol Sulf ate (2.5 MG/3ML) 0.083% 3 mL as needed Inhalation every 6 hrs Sep, Active Start: 07-22-2021 albuterol HFA (PROVENTIL HFA, VENTOLIN HFA) 90 mcg/actuation inhaler amLODIPine 2.5 mg oral tablet (20 sources) Dihydropyridine Calcium Channel Chanel Start: 10-17-2023 End: 10-01-2024 take 1 tablet by mouth once daily Amlodipine 2.5 mg tablet Discontinued 2.5 MG PO Daily October 19, 2023 11:05am October 01, 2024 10:10am Start: 10-12-2022 take 1 tablet by christen th every twenty-four hours amLODIPine Besylate 2.5 MG 1 tablet Orally Once a day Sep, Active amoxicillin 500 mg oral tablet (4 sources) Penicillin-class Antibacterial Start: 12-04-2018 Amoxicillin 500 mg tablet Take 4 tablets by mouth 1 hour prior to procedure and 2 tablets by mouth 6 hours after procedure 6 tablet 5 12/04/2018 Active Comment on above: Take 4 tablets by mo [facility] 1 hour prior to procedure [...] Daily at bedtime October 19, 2023 11:06am April 02, 2024 1:34pm Start: 09-03-2023 take 1 tablet by christen [...] on above: Take 1 capsule by mo [facility] twice daily. (Stool softener) ferrous sulfate 325 mg oral tablet (1 source) Start: End: take 1 tablet by mouth twice daily at mealtime ferrous sulfate 325 mg (65 mg iron) tablet Take 1 tablet by mouth twice daily with meals. (Iron supplement) 30 tablet 0 01/02/2018 02/19/2023 Discontinued Comment on above: Take 1 tablet by christen twice daily with meals. (Iron supplement) FISH OIL-DHA-EPA ORAL (4 sources) take 1 capsule by mouth once daily FISH OIL-DHA-EPA ORAL Take 1 capsule by mouth once daily. 0 Active Comment on above: Take 1 capsule by mo [facility] once daily. hydrocortisone 25 mg/ml topical cream (2 sources) Corticosteroid Start: End: Hydrocortisone (Proctosol Hc) 2.5 % cream with perineal applicator Discontinued 1 APPLIC TX 1 to 2 times per day as needed for hemorrhoids August 18, 2024 1:00am October 01, 2024 10:11am MELATONIN, BULK, MISC (5 sources) MELATONIN, BULK, [...] 1 capsule by mo uth once daily. omeprazole 20 mg delayed release oral capsule (20 sources) Proton Pump Inhibitor Start: 2023 End: 2024 take 1 capsule by mouth once daily Omeprazole 20 mg capsule,delayed release(DR/EC) Discontinued 20 MG PO Daily 90 90 October 19, 2023 11:07am October 01, 2024 10:10am Omeprazole 20 MG TAKE 1 CAPSULE EVERY DAY ON AN EMPTY STOMACH FOLLOWED IN 30 MINUTES BY BREAKFAST Active Comment on above: Take 20 mg by mouth once daily. Problems Active Problems Problem Classification Problem Date Documented Date Episodic/Chronic Acute bronchitis (13 sources) Acute bronchitis; Translations: [Acute bronchitis due [...] disease, unspecified] Chronic Diabetes mellitus without complication (5 sources) Hyperglycemia; Translations: [Impaired fasting glucose] 05-28-2024 [...] [Spondylolysis, lumbar region] Episodic Other acquired deformities (4 sources) Spondylolysis; Translations: [Spondylolysis, lumbar region] 10-18-2023 Episodic Other acquired deformities (4 sources) Spondylolysis, lumbar region; Translations: [Acquired spondylolisthesis] 01-22-2024 Episodic Other aftercare (2 sources) 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 (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 therapy; Translations: [OTH AWNING SPREADER CURRENT DRUG THERAPY] Onset: 11-06-2022 Episodic Other [...] Episodic Other nutritional; endocrine; and metabolic disorders (2 sources) Weight decreased; Translations: [Abnormal weight loss] 05-28-2024 [...] (adult) (pediatric)] 01-02-2018 Chronic Residual codes; unclassified (7 sources) Obstructive sleep apnea (adult) (pediatric); Translations: [...] Test Name Value Interpretation Reference Range Facility [facility] (SPJEREMYAV[facility] RUPERTO THORPE ([id number]) 1940 [employer] Date Time Provider Department 03/20/23 DAVID JAEGER During your visit today, we recorded the following information about you: Neida Porter MA 03/20/2023 12:30 PM Signed DATE OF SERVICE: 03/15/2023 PATIENT'S PHONE NUMBERS: [phone] (home) OR @[facility]@ PROVIDER: Dr. Jaeger PROCEDURE: Elective Pain [...] work Requesting to call his CELL ONLY [phone] what to do next Leave Detailed messages [...] of spine injection schedulers to call at [phone]. Patient will call if he wants to schedule another injection. 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 Author [...] offered a procedure / surgery at a [facility] facility. Patient and I have [...] indicated on the consent form. [facility] approved time out was performed identifying the site, side and level of procedure prior to start of procedure. [facility] GLEN ALLEN - ELECTIVE PROCEDURE Lumbar Transforaminal Epidural Steroid [...] DO, MBA [facility] 02-26-2023 CHELLE Telephone (SPJEREMYAV) RUPERTO THORPE ([id number]) 1940 [address] [employer] Date Time Provider Department 02/26/23 DAVID JAEGER During your visit today, we recorded the following information about you: Linda Knox LPN 02/26/2023 4:49 PM Signed Spoke to patient in regrds to pre procedure instructions. Pt must have a taxi cab driver. Pt advised to arrive 30 min [...] take. Advised on location of ASC-2nd floor [facility] Pt will receive a follow up call several days after by a steam train driver. If you experience any increase in weakness, difficulty walking or significant increase in pain that last more than 4 hours, please proceed to the Emergency Room and tell them you had a spine procedure done recently. Additionally, call us and notify us of these symptoms. Please call [phone] if you have any questions. Pt verbalized [...] Status:Closed by LINDA KNOX LPN on 02/26/23 [facility] Unique 02-19-2023 SIDNEY[facility] Telephone (SPNMAV) RUPERTO THORPE ([id number]) 1940 [employer] Date Time Provider Department 02/19/23 DAVID JAEGER SPJEREMYAV During your visit today, we recorded the following information about you: Camilla Jarrell Pss 02/19/2023 9:27 AM Signed Ruperto Keeley Thorpe daughter Celi is calling David Sis Jaeger, DO today to ask about getting patient a shot again - Last one in 2020 Please advise what patient needs as far as OV or MRI or if he can be scheduled for procedure - daughter states she left a VM somewhere last week but never heard back Please call Celi as patient cannot hear well [phone] Patient has been identified by name and birthdate. Duration of symptoms: N/A Person calling: daughter: Celi Call patient at: N/A [phone] (home) [phone] (cell) Was an appointment scheduled: No Closing statement: Results or non-symptom based questions: Thank you for calling [facility], your call will be returned within the next business day. Camilla Jarrell [facility] Linda Knox TECHNOLOGY AUDITOR 02/19/2023 9:45 AM Signed Spine Intervention order formatted for review Linda Knox LPN 02/19/2023 11:59 AM Signed Order approved Spoke to daughter in [facility] to pre procedure instructions. Daughter given scheduling number [phone] Pt must have a taxi cab driver. Pt advised to arrive 30 min prior to the time given by the adjunct art history instructor. Pt advised will also receive a call the day before from the surgery center to confirm date/time. Pt can eat and drink as normal. and Pt can take medications as normal. No alcohol 24 hours prior. Pt is on ASA.- 81 mg okay to take. and must Advised on location of ASC-2nd floor [facility] Pt will receive a follow up call several days after by a steam train driver. If you experience any increase in weakness, difficulty walking or significant increase in pain that last more than 4 hours, please proceed to the Emergency Room and tell them you had a spine procedure done recently. Additionally, call us and notify us of these symptoms. Please call [phone] if you have any questions. Pt verbalized understanding. 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 Normal [facility] XR knee LT 4V*on 11-09-2022 XR knee LT 4V* [facility] [place] [address] [place] [address] XRay Report Signed Patient: Ruperto Thorpe MR#: [id number] 5 : 1940 Acct:[id number] Age/Sex: 82 / M ADM Date: 11/09/22 [place] [facility] [place]: Type: [facility] Attending Dr: Jose Enrique Leblanc [...] Darren Yuen M.D.11/09/2022 5:03 PM Dictation Location: RADIO-PC-12 Transcribed By: COLIN 11/09/221702 Dictated By: Darren Yuen II, MD 11/09/221700 Signed By: 11/09/221702 [facility] XR knee LT 4V* [facility] [employer] Other XR knee LT 4V* [facility] [employer] Other XR knee LT 4V* [address] [place] [address] [employer] Other XR knee LT 4V* [place] [address] No [facility] [employer] Other XR knee LT 4V* XRay Report [employer] Other XR knee LT 4V* Signed [employer] Other XR knee LT 4V* Patient: Ruperto Thorpe MR#: [id number] [place] [employer] Other XR knee LT 4V* 5 [employer] Other XR knee LT 4V* : 1940 Acct:[id number] [employer] Other XR knee LT 4V* Age/Sex: 82 / M ADM Date: 11/09/22 [facility] Other XR knee LT 4V* Loc: [facility] Room: Type : [facility] [employer] Other XR knee LT 4V* Attending Dr: Jose Enrique Leblanc II, MD [employer] Other XR knee LT 4V* Copies to: Jose Enrique Leblanc MD [employer] Other XR knee LT 4V* Ordering Provider: Jose Enrique Leblanc MD [employer] Other XR knee LT 4V* Date of Service: 11/09/22 [employer] Other XR knee LT 4V* XR/XR knee LT 4V*: Acute pain of left knee [employer] Other XR knee LT 4V* XR knee LT 4V* 11/09/2022 3:15 PM [employer] Other XR knee LT 4V* SIGNS AND SYMPTOMS: Acute pain of left knee [employer] Other XR knee LT 4V* PROTOCOL: Frontal, lateral, oblique, and sunrise views of the left knee [employer] Other XR knee LT 4V* COMPARISON: 11/05/2022 [employer] Other XR knee LT 4V* FINDINGS: [employer] Other XR knee LT 4V* There is similar narrowing of the weightbearing joint spaces with chondrocalcinosis of the menisci [employer] Other XR knee LT 4V* suggesting underlyin g CPPD. There is narrowing of the patellofemoral joint space with spurring at [employer] Other XR knee LT 4V* the superior pole of patella. There is a small joint effusion. No soft tissue swelling. No acute [employer] Other XR knee LT 4V* displaced fracture. Vascular calcifications are present posteriorly. [employer] Other XR knee LT 4V* XR/XR knee LT 4V* [employer] Other XR knee LT 4V* IMPRESSION: [employer] Other XR knee LT 4V* Tricompartmental degenerative changes are noted in the left knee with a small joint effusion. [employer] Other XR knee LT 4V* There is chondrocalcinosis of the menisci suggesting underlying CPPD. [employer] Other XR knee LT 4V* Impression dictated by: Darren Yuen M.D.11/09/2022 5:03 PM [employer] Other XR knee LT 4V* Dictation Location: [facility]-- [employer] Other XR knee LT 4V* Transcribed By: COLIN 11/09/221702 [employer] Other XR knee LT 4V* Dictated By: Darren Yuen II, MD 11/09/221700 [employer] Other XR knee LT 4V* Signed By: [employer] Other XR knee LT 4V* 11/09/221702 [employer] Other XR pelvis 1-2Von 11-09-2022 XR pelvis 1-2V [facility] [place] [address] [place] [address] XRay Report Signed Patient: Ruperto Thorpe MR#: [id number] 5 : 1940 Acct:[id number] Age/Sex: 82 / M ADM Date: 11/09/22 [place] [facility]: Type: [facility] Attending Dr: Jose Enrique Leblanc [...] Darren Yuen M.D.11/09/2022 5:01 PM Dictation Location: [facility]--12 Transcribed By: [facility] 11/09/221700 Dictated By: Darren Yuen II, MD 11/09/221699 Signed By: 11/09/221700 [facility] XR pelvis 1-2V XR/XR pelvis 1-2V: Acute pain of left knee [employer] Other XR pelvis 1-2V XR pelvis 1-2V 11/09/2022 3:15 PM [employer] Other XR pelvis 1-2V SIGNS AND SYMPTOMS: Left knee pain [employer] Other XR pelvis 1-2V PROTOCOL: Frontal radiograph of the chest [employer] Other XR pelvis 1-2V COMPARISON: None [place] [employer] Other XR pelvis 1-2V There is mild narrowing of the left hip joint space with subcortical cystic change on both sides of [employer] Other XR pelvis 1-2V the joint along the acetabular there is chondrocalcinosis of the labrum overlying the superior [employer] Other XR pelvis 1-2V acetabular rim and superior lateral femoral head. The bony ring of the pelvis is intact. There is [employer] Other XR pelvis 1-2V total right hip arthroplasty. Degenerative changes are noted in the sacroiliac joints. No fracture [employer] Other XR pelvis 1-2V is [employer] Other XR pelvis 1-2V XR/XR pelvis 1-2V [employer] Other XR pelvis 1-2V Degenerative changes are noted in the left hip with findings suspicious for previous labral [employer] Other XR pelvis 1-2V pathology. [employer] Other XR pelvis 1-2V Postoperative change s are noted in the right hip with total right hip arthroplasty hardware. [employer] Other XR pelvis 1-2V Impression dictated by: Darren Yuen M.D.11/09/2022 5:01 PM [employer] Other XR pelvis 1-2V Transcribed By: COLIN 11/09/22 170 [employer] Other XR pelvis 1-2V Dictated By: Darren Yuen II, MD 11/09/221699 [employer] Other XR pelvis 1-2V 11/09/22 1706 [employer] Other XR KNEE LT 4V or >on [...] There is chondrocalcinosis. Soft tissues: Unremarkable. IMPRESSION: Frfb-mc-rumxmlrw osteoarthritis as described above. Chondrocalcinosis. No acute fracture or dislocation. Electronically authenticated by: CHUCK JONES Date: 2022-11-05 11:19 Normal [facility] US CAROTID ART BILon 023 [...] JONAS MCLEOD Date: 2022-09-26 10:58 Normal [facility] CBC AUTO DIFFon 08-10-2022 BASO # 0.0 103/ul Normal 0.0-0.1 [facility] Comment on above: Performed By: #### C BC #### [facility] Laboratory [address] [address] [address] Alexis Brink Basophils/100 WBC (Bld) 0.7 % Normal 0.2-2.0 [facility] Comment on above: Performed By: #### C BC #### [facility] [address] [address] [address] Alexis Brink EO # 0.3 103/ul Normal 0.0-0.7 [facility] Comment on above: Performed By: #### C BC #### [facility] [address] [address] [address] Alexis Brink Eosinophils/100 WBC (Bld) 6.1 % Normal 0.9-7.0 [facility] Comment on above: Performed By: #### C BC #### [facility] [address] [address] [address] Alexis Brink Erythrocyte distribution width (RBC) [Ratio] 12.1 % Normal 11.0-15.0 [facility] Comment on above: Performed By: #### C BC #### [facility] [address] [place] [address] Dr. Alexis Brink Hematocrit (Bld) [Volume fraction] 44.2 % Normal 42.0-54.0 [facility] Comment on above: Performed By: #### C BC #### [facility] [address] [place] [address] Dr. Alexis Brink Hemoglobin (Bld) [Mass/Vol] 14.9 g/dL Normal 14.0-18.0 [facility] Comment on above: Performed By: #### C BC #### [facility] [address] [place] [address] Dr. Alexis Brink IG # 0.01 10e3/ul Normal 0.00-0.03 [facility] Comment on above: Performed By: #### C BC #### [facility] [address] [place] [address] Dr. Alexis Brink IG % 0.2 % Normal 0.0-0.5 [facility] Comment on above: Performed By: #### C BC #### [facility] [address] [place] [address] Dr. Alexis Brink LYMPH # 1.2 103/ul Normal 1.2-3.8 [facility] Comment on above: Performed By: #### C BC #### [facility] [address] [place] [address] Dr. Alexis Brink Lymphocytes/100 WBC (Bld) 21.3 % Normal 20.5-60.0 [facility] Comment on above: Performed By: #### C BC #### [facility] [address] [place] [address] Dr. Alexis Brink MANUAL DIFF REQ NO Normal [facility] Comment on above: Performed By: #### C BC #### [facility] [address] [place] [address] Dr. Alexis Brink MCH (RBC) [Entitic mass] 30.7 pg Normal 25.9-34.0 [facility] Comment on above: Performed By: #### C BC #### [facility] [address] [place] [address] Dr. Alexis Brink MCHC (RBC) [Mass/Vol] 33.7 g/dL Normal 29.9-35.2 [facility] Comment on above: Performed By: #### C BC #### [facility] [address] [place] [address] Dr. Alexis Brink MCV (RBC) [Entitic vol] 91.1 fL Normal 80.0-94.0 [facility] Comment on above: Performed By: #### C BC #### [facility] [address] [place] [address] Dr. Alexis Brink MONO # 0.5 103/ul Normal 0.3-0.8 [facility] Comment on above: Performed By: #### C BC #### [facility] [address] [place] [address] Dr. Alexis Brink Monocytes/100 WBC (Bld) 8.5 % Normal 1.7-12.0 [facility] Comment on above: Performed By: #### C BC #### [facility] [address] [place] [address] Dr. Alexis Brink NEUT # 3.5 103/ul Normal 1.4-6.5 [facility] Comment on above: Performed By: #### C BC #### [facility] [address] [place] [address] Dr. Alexis Brink Neutrophils/100 WBC (Bld) 63.2 % Normal 43.0-75.0 [facility] Comment on above: Performed By: #### C BC #### [facility] [address] [place] [address] Dr. Alexis Brink Platelet mean volume (Bld) [Entitic vol] 10.0 fL Normal 9.5-13.5 [facility] Comment on above: Performed By: #### C BC #### [facility] [address] [place] [address] Dr. Alexis Brink PLT 120 103/ul Critically low 150-450 [facility] Comment on above: Performed By: #### C BC #### [facility] [address] [place] [address] Dr. Alexis Brink RBC 4.85 106/ul Normal 4.70-6.10 [facility] Comment on above: Performed By: #### C BC #### [facility] [address] [place] [address] Dr. Alexis Brink WBC 5.6 103/ul Normal 4.0-11.0 [facility] Comment on above: Performed By: #### C BC #### [facility] [address] [place] [address] Dr. Alexis Brink [facility] SARS-CoV-2 (COVID-19) RNA RICKY+probe Ql (Unsp spec) Not detected Normal NOT DETECTED [facility] Comment on above: Result Comment: This test is not yet approved or cleared by the [place] FDA. When there are no FDA-approved or cleared tests available, and other criteria are met, FDA can make tests available under an emergency access mechanism called an Emergency Use Authorization (EUA). The EUA for this test is supported by the [place] of Health and Human Service's (HHS's) declaration [...] with SARS-CoV-2. Performed By: #### C VDTBH ####[facility] [address] [place], [place] [address]Dr. Shaguftalilliana Brink INFLUENZA A AND B AGon 08-10 INFLUANEGH SEE BELOW Normal [facility] Comment on above: Result Comment: Nega tive for Flu A protein angiten. Infection due to Flu A cannot be ruled out. Flu A angiten in the sample may be below the detection limit of the test. Performed By: #### I NFLUAB ####[facility] [address] [place], [place] [address]Dr. Alexis Brink INFLUBNEGH SEE BELOW Normal [facility] Comment on above: Result Comment: Nega tive for Flu B protein antigen. Infection due to Flu B cannot be ruled out. Flu B antigen in the sample may be below the detection limit of the test. Performed By: #### I NFLUAB ####[facility] [address] [place], [place] [address]Dr. Alexis Brink INFLUENZA A AG Negative Normal NEGATIVE SEE COMMENT [facility] Comment on above: Performed By: #### I NFLUAB ####[facility] [address] [place], [place] [address]PtLainey Brink INFLUENZA B AG Negative Normal NEGATIVE SEE COMMENT [facility] Comment on above: Performed By: #### I NFLUAB ####[facility] [address] [place], [place] [address]AkLainey Brink INTERNAL CONTROLS Within Normal Limits Normal Wi thin Normal Limits [facility] Comment on above: Performed By: #### I NFLUAB ####[facility] [address] [place], [place] [address]XqLainey Brink PROF CHEM 8 (BAS METB)on Anion gap [Moles/Vol] 11.4 mmol/L Normal [facility] Comment on above: Performed By: #### B MP, HSTROPN #### [facility] [address] [address] [address] Alexis Brink Calcium [Mass/Vol] 8.9 mg/dL Normal 8.5-10.1 [facility] Comment on above: Performed By: #### B MP, HSTROPN #### [facility] [address] [address] [address] Alexis Brink Chloride [Moles/Vol] 102 mmol/L Normal 98-107 [facility] Comment on above: Performed By: #### B MP, HSTROPN #### [facility] [address] [address] [address] Alexis Brink CO2 [Moles/Vol] 28.8 mmol/L Normal 21.0-32.0 [facility] Comment on above: Performed By: #### B MP, HSTROPN #### [facility] [address] [address] [address] Alexis Brink Creatinine [Mass/Vol] 1.35 mg/dL Critically high 0.70-1.30 [facility] Comment on above: Performed By: #### B MP, HSTROPN #### [facility] [address] [address] [address] Alexis Brink EGFR-AF YEMENI >60 Normal >=60 [facility] Comment on above: Performed By: #### B MP, HSTROPN #### [facility] [address] [address] [address] Alexis Brink EGFR-NON AF YEMENI 51 mL/min/1.73m2 Critically low >=60 [facility] Comment on above: Performed By: #### B MP, HSTROPN #### [facility] [address] [address] [address] Alexis Brink Glucose [Mass/Vol] 109 mg/dL Critically high 74-106 [facility] Comment on above: Performed By: #### B MP, HSTROPN #### [facility] [address] [address] [address] Alexis Brink Potassium [Moles/Vol] 4.2 mmol/L Normal 3.5-5.1 [facility] Comment on above: Performed By: #### B NARA, HSTROPN #### [facility] [address] [address] [address] Alexis Brink Sodium [Moles/Vol] 138 mmol/L Normal 136-145 [facility] Comment on above: Performed By: #### B NARA, HSTROPN #### [facility] [address] [address] [address] Alexis Brink Urea nitrogen [Mass/Vol] 18.0 mg/dL Normal 7.0-18.0 [facility] Comment on above: Performed By: #### B MP, HSTROPN #### [facility] [address] [address] [address] Alexis Brink Urea nitrogen/Creatinin e [Mass ratio] 13.3 mg/mg Normal [facility] Comment on above: Performed By: #### B MP, HSTROPN #### [facility] [address] [place] [address] Dr. Alexis Brink TROPONIN, HIGH SENSITIVITYon 08-10-2022 HSTROP 22.2 pg/mL Normal 4.0-76.1 [facility] Comment on above: Result Comment: CUT- OFF POINTS HAVE BEEN ESTABLISHED BASED ON THE FOURTH UNIVERSAL DEFINITIONS OF MYOCARDIAL INFARCTION. THE UPPER REFERENCE LIMIT (URL) OF TROPONIN, DEFINED THE 99TH PERCENTILE OF cTnI DISTRIBUTION IN A REFERENCE POPULATION, HAS BEEN CONFIRMED THE DECISION THRESHOLD FOR PR DIAGNOSIS. Performed By: #### B ANTONY BAINS #### [facility] [address] [place] [address] Dr. Alexis Brink XR CHEST 1 Von [...] RADHA UNDERWOOD Date: 2022-08-10 16:07 Normal [facility] CBC AUTO DIFFon 02-09-2022 BASO # 0.0 103/ul Normal 0.0-0.1 [facility] Comment on above: Performed By: #### C BC #### [facility] [address] [place] [address] Dr. Alexis Brink Basophils/100 WBC (Bld) 0.6 % Normal 0.2-2.0 [facility] Comment on above: Performed By: #### C BC #### [facility] [address] [place] [address] Dr. Alexis Brink EO # 0.5 103/ul Normal 0.0-0.7 [facility] Comment on above: Performed By: #### C BC #### [facility] [address] [place] [address] Dr. Alexis Brink Eosinophils/100 WBC (Bld) 7.2 % Critically high 0.9-7.0 [facility] Comment on above: Performed By: #### C BC #### [facility] [address] [place] [address] Dr. Alexis Brink Erythrocyte distribution width (RBC) [Ratio] 12.4 % Normal 11.0-15.0 [facility] Comment on above: Performed By: #### C BC #### [facility] [address] [place] [address] Dr. Alexis Brink Hematocrit (Bld) [Volume fraction] 45.5 % Normal 42.0-54.0 [facility] Comment on above: Performed By: #### C BC #### [facility] [address] [place] [address] Dr. Alexis Brink Hemoglobin (Bld) [Mass/Vol] 15.4 g/dL Normal 14.0-18.0 [facility] Comment on above: Performed By: #### C BC #### [facility] [address] [place] [address] Dr. Alexis Brink IG # 0.02 10e3/ul Normal 0.00-0.03 [facility] Comment on above: Performed By: #### C BC #### [facility] [address] [place] [address] Dr. Alexis Brink IG % 0.3 % Normal 0.0-0.5 [facility] Comment on above: Performed By: #### C BC #### [facility] [address] [place] [address] Dr. Alexis Brink LYMPH # 1.3 103/ul Normal 1.2-3.8 [facility] Comment on above: Performed By: #### C BC #### [facility] [address] [place] [address] Dr. Alexis Brink Lymphocytes/100 WBC (Bld) 17.8 % Critically low 20.5-60.0 [facility] Comment on above: Performed By: #### C BC #### [facility] [address] [place] [address] Dr. Alexis Brink MANUAL DIFF REQ NO Normal [facility] Comment on above: Performed By: #### C BC #### [facility] [address] [place] [address] Dr. Alexis Brink MCH (RBC) [Entitic mass] 31.4 pg Normal 25.9-34.0 [facility] Comment on above: Performed By: #### C BC #### [facility] [address] [address] [address] Alexis Brink MCHC (RBC) [Mass/Vol] 33.8 g/dL Normal 29.9-35.2 [facility] Comment on above: Performed By: #### C BC #### [facility] [address] [address] [address] Alexis Brink MCV (RBC) [Entitic vol] 92.9 fL Normal 80.0-94.0 [facility] Comment on above: Performed By: #### C BC #### [facility] [address] [address] [address] Alexis Brink MONO # 0.7 103/ul Normal 0.3-0.8 [facility] Comment on above: Performed By: #### C BC #### [facility] [address] [address] [address] Alexis Brink Monocytes/100 WBC (Bld) 9.6 % Normal 1.7-12.0 [facility] Comment on above: Performed By: #### C BC #### [facility] [address] [address] [address] Alexis Brink NEUT # 4.6 103/ul Normal 1.4-6.5 [facility] Comment on above: Performed By: #### C BC #### [facility] [address] [address] [address] Alexis Brink Neutrophils/100 WBC (Bld) 64.5 % Normal 43.0-75.0 [facility] Comment on above: Performed By: #### C BC #### [facility] [address] [address] [address] Alexis Brink Platelet mean volume (Bld) [Entitic vol] 10.7 fL Normal 9.5-13.5 [facility] Comment on above: Performed By: #### C BC #### [facility] [address] [address] [address] Alexis Brink PLT 130 103/ul Critically low 150-450 [facility] Comment on above: Performed By: #### C BC #### [facility] [address] [address] [address] Alexis Brink RBC 4.90 106/ul Normal 4.70-6.10 [facility] Comment on above: Performed By: #### C BC #### [facility] [address] [address] [address] Alexis Brink WBC 7.1 103/ul Normal 4.0-11.0 [facility] Comment on above: Performed By: #### C BC #### [facility] [address] [address] [address] Alexis Brink DIRECT LDLon 02-09-2022 Cholesterol in LDL [Mass/Vol] 144 mg/dL Normal [facility] Comment on above: Performed By: #### D LDL, BMP ####[facility] [address] [id number]. Alexis Brink DLDL NORMAL SEE BELOW Normal [facility] Comment on above: Result Comment: <100 mg/dl OPTIMAL 100 - 129 mg/dl NEAR OR ABOVE OPTIMAL 130 - 159 mg/dl BORDERLINE HIGH 160 - 189 mg/dl HIGH >190 mg/dl VERY HIGH Performed By: #### D LDL, BMP ####[facility] [address] [address]Dr. Alexis Brink PROF CHEM 8 (BAS METB)on Anion gap [Moles/Vol] 9.3 mmol/L Normal [facility] Comment on above: Performed By: #### D LDL, BMP #### [facility] [address] [address] [address] Alexis Brink Calcium [Mass/Vol] 8.7 mg/dL Normal 8.5-10.1 [facility] Comment on above: Performed By: #### D LDL, BMP #### [facility] [address] [address] [address] Alexis Brink Chloride [Moles/Vol] 103 mmol/L Normal 98-107 [facility] Comment on above: Performed By: #### D LDL, BMP #### [facility] [address] [address] [address] Alexis Brink CO2 [Moles/Vol] 32.1 mmol/L Critically high 21.0-32.0 [facility] Comment on above: Performed By: #### D LDL, BMP #### [facility] [address] [address] [address] Alexis Brink Creatinine [Mass/Vol] 1.35 mg/dL Critically high 0.70-1.30 [facility] Comment on above: Performed By: #### D LDL, BMP #### [facility] [address] [address] [address] Alexis Brink EGFR-AF YEMENI >60 Normal >=60 [facility] Comment on above: Performed By: #### D LDL, BMP #### [facility] [address] [address] [address] Alexis Brink EGFR-NON AF YEMENI 51 mL/min/1.73m2 Critically low >=60 [facility] Comment on above: Performed By: #### D LDL, BMP #### [facility] [address] [address] [address] Alexis Brink Glucose [Mass/Vol] 90 mg/dL Normal 74-106 [facility] Comment on above: Performed By: #### D LDL, BMP #### [facility] [address] [address] [address] Alexis Brink Potassium [Moles/Vol] 4.4 mmol/L Normal 3.5-5.1 [facility] Comment on above: Performed By: #### D LDL, BMP #### [facility] [address] [address] [address] Alexis Brink Sodium [Moles/Vol] 140 mmol/L Normal 136-145 [facility] Comment on above: Performed By: #### D LDL, BMP #### [facility] [address] [address] [address] Alexis Brink Urea nitrogen [Mass/Vol] 16.0 mg/dL Normal 7.0-18.0 [facility] Comment on above: Performed By: #### D LDL, BMP #### [facility] [address] [address] [address] Alexis Brink Urea nitrogen/Creatinin e [Mass ratio] 11.9 mg/mg Normal [facility] Comment on above: Performed By: #### D LDL, BMP #### [facility] [address] [address] [address] Alexis Brink UA RANDOMon 02-09-2022 Bilirubin Ql (U) Negative Normal NEGATIVE [facility] Comment on above: Performed By: #### U A #### [facility] [address] [place] [address] Dr. Alexis Brink Clarity (U) CLEAR Normal CLEAR [facility] Comment on above: Performed By: #### U A #### [facility] [address] [place] [address] Dr. Alexis Brink Color (U) YELLOW Normal YELLOW [facility] Comment on above: Performed By: #### U A #### [facility] [address] [place] [address] Dr. Alexis Brink Glucose Ql (U) Negative Normal NEGATIVE [facility] Comment on above: Performed By: #### U A #### [facility] [address] [address] [address] Alexis Brink Hemoglobin Ql (U) Negative Normal NEGATIVE [facility] Comment on above: Performed By: #### U A #### [facility] [address] [place] [address] Dr. Alexis Brink Ketones Ql (U) Negative Normal NEGATIVE [facility] Comment on above: Performed By: #### U A #### [facility] [address] [place] [address] Dr. Alxeis Brink LEUKOCYTES Negative Normal NEGATIVE [facility] Comment on above: Performed By: #### U A #### [facility] [address] [place] [address] Dr. Alexis Brink Nitrite Ql (U) Negative Normal NEGATIVE [facility] Comment on above: Performed By: #### U A #### [facility] [address] [place] [address] Dr. Alexis Brink pH (U) 7.0 [pH] Normal 5-9 [facility] Comment on above: Performed By: #### U A #### [facility] [address] [address] [address] Alexis Brink SPEC GRAVITY 1.015 Normal 1.005-<=1.025 [facility] Comment on above: Performed By: #### U A #### [facility] [address] [address] [address] Alexis Brink UA PROTEIN Negative Normal NEGATIVE/ TRACE [facility] Comment on above: Performed By: #### U A #### [facility] [address] [address] [address] Alexis Brink Urobilinogen Qn (U) 1.0 {Kay'U}/dL Normal 0.2 - 1.0 [facility] Comment on above: Performed By: #### U A #### [facility] [address] [place] [address] Dr. Alexis Brink XR CHEST 2 Von [...] HAWLEY Date: 2021-12-06 15:42 Normal [facility] Nonvisit Note - PTon 018 Nonvisit Note - PT Cert letter refaxed for signature this date - third and final attempt. Normal [facility] Nonvisit Note - PTon 018 Nonvisit Note - PT Cert letter refaxed to Dr Gooden's office. Second attempt. Normal [facility] Coding Summary.on 01-25-2018 Coding Summary. CODING DATE: 01/25/2018 FINAL [facility] STATUS: PAYOR: Medicare ADMIT DX: REASON [...] Dominique Pendleton Date Saved: 01/25/2018 10:[address] [facility] Coding Summary. CODING DATE: 01/25/2018 [facility] STATUS: PAYOR: Medicare ADMIT DX: REASON [...] Dominique Pendleton Date Saved: 01/25/2018 10:[address] [facility] SURGICAL PATHOLOGYon 05-15-2 018 SURGICAL PATHOLOGY [facility]: [id number] Physician: BETH GOODEN MD FINAL DIAGNOSISRight hip, [...] to 8.5 x 8.5 x 1.8 cm. High Scaler sectionsare submitted as follows: A1 soft tissue, A2 bone submitted afterdecalcification.B Юлия/lachelle 01/01/2018 Gross examination performed at [facility], [address] [place] [address] of Report: 01/07/2018Date of Procedure: 01/01/2018Date of Receipt: 01/01/2018Submitted by: BETH GOODEN MDLocation: [id number] interpretation performed at [facility], [address] [place] [address]. Normal [facility] Comment on above: Performed By: #### S ####See report for performing lab information. Vital Signs Date Time Vital Sign Value Performing Clinician Facility 11-06-2024 09:02040 Body height 167.64 cm [facility] 11-06-2024 09:020400 Body mass index (BMI) [Ratio] 28.9 kg/m2 [facility] 11-06-2024 09:020400 Body weight 81.36 kg [facility] 11-06-2024 09:02-0400 Diastolic blood pressure 67 mm[Hg] [facility] 11-06-2024 09:02-0400 Heart rate 82 /min [facility] 11-06-2024 09:02-0400 Respiratory rate 24 /min [facility] 11-06-2024 09:02-0400 SaO2% (BldA) [Mass fraction] 98 % [facility] 11-06-2024 09:02-0400 Systolic blood pressure 130 mm[Hg] [facility] 10-01-2024 08:35-0500 Body height 167.64 cm [facility] 10-01-2024 08:35-0500 Body mass index (BMI) [Ratio] 28.5 kg/m2 [facility] 10-01-2024 08:35-0500 Body weight 80.34 kg [facility] 10-01-2024 08:35-0500 Diastolic blood pressure 74 mm[Hg] [facility] 10-01-2024 08:35-0500 Heart rate 67 /min [facility] 10-01-2024 08:35-0500 Respiratory rate 16 /min [facility] 10-01-2024 08:35-0500 Systolic blood pressure 155 mm[Hg] [facility] 05-28-2024 08:30-0400 Body height 167.64 cm [facility] 05-28-2024 08:30-0400 Body mass index (BMI) [Ratio] 27.1 kg/m2 [facility] 05-28-2024 08:30-0400 Body weight 76.31 kg [facility] 05-28-2024 08:30-0400 Diastolic blood pressure 89 mm[Hg] [facility] 05-28-2024 08:30-0400 Heart rate 61 /min [facility] 05-28-2024 08:30-0400 Respiratory rate 12 /min [facility] 05-28-2024 08:30-0400 Systolic blood pressure 139 mm[Hg] [facility] 01-22-2024 09:16-0400 Body height 167.64 cm [facility] 01-22-2024 09:16-0400 Body mass index (BMI) [Ratio] 29.3 kg/m2 [facility] 01-22-2024 09:16-0400 Body weight 82.55 kg [facility] 01-22-2024 09:16-0400 Diastolic blood pressure 72 mm[Hg] [facility] 01-22-2024 09:16-0400 Heart rate 64 /min [facility] 01-22-2024 09:16-0400 Respiratory rate 20 /min [facility] 01-22-2024 09:16-0400 Systolic blood pressure 131 mm[Hg] [facility] 09-28-2023 11:00-0500 Body height 167.64 cm Cecilio Ball Other [employer] Other 09-28-2023 11:00-0500 Body mass index (BMI) [Ratio] 30.24 kg/m2 Cecilio Ball Other [employer] Other 09-28-2023 11:00-0500 Body weight 85 kg Cecilio Ball Other [employer] Other 09-28-2023 11:00-0500 Respiratory rate 20 /min Cecilio Ball Other [employer] Other 09-28-2023 11:00-0500 SaO2% (BldA) [Mass fraction] 97 % Cecilio Ball Other [employer] Other 09-11-2023 10:45-0500 Body height 167.64 cm Cecilio Ball Other [employer] Other 09-11-2023 10:45-0500 Body mass index (BMI) [Ratio] 29.86 kg/m2 Cecilio Ball Other [employer] Other 09-11-2023 10:45-0500 Body temperature 97.5 [degF] Cecilio Ball Other [facility] Other 09-11-2023 10:45-0500 Body weight 83.92 kg Cecilio Ball Other [facility] Other 09-11-2023 10:45-0500 Diastolic blood pressure 81 mm[Hg] Cecilio Ball Other [facility] Other 09-11-2023 10:45-0500 Respiratory rate 20 /min Cecilio Ball Other [facility] Other 09-11-2023 10:45-0500 SaO2% (BldA) [Mass fraction] 98 % Cecilio Ball Other [facility] Other 09-11-2023 10:45-0500 Systolic blood pressure 161 mm[Hg] Cecilio Ball Other [facility] Other 08-01-2023 10:15-0500 Body height 167.64 cm Cecilio Ball Other [facility] Other 08-01-2023 10:15-0500 Body mass index (BMI) [Ratio] 29.86 kg/m2 Cecilio Ball Other [facility] Other 08-01-2023 10:15-0500 Body weight 83.92 kg Cecilio Ball Other [facility] Other 08-01-2023 10:15-0500 Diastolic blood pressure 79 mm[Hg] Cecilio Ball Other [facility] Other 08-01-2023 10:15-0500 Respiratory rate 20 /min Cecilio Ball Other [facility] Other 08-01-2023 10:15-0500 Systolic blood pressure 172 mm[Hg] Cecilio Ball Other [facility] Other 07-17-2023 10:15-0500 Body height 167.64 cm Cecilio Ball Other [facility] Other 07-17-2023 10:15-0500 Body mass index (BMI) [Ratio] 29.89 kg/m2 Cecilio Ball Other [facility] Other 07-17-2023 10:15-0500 Body weight 84.01 kg Cecilio Ball Other [facility] Other 07-17-2023 10:15-0500 Diastolic blood pressure 78 mm[Hg] Cecilio Ball Other [facility] Other 07-17-2023 10:15-0500 Respiratory rate 20 /min Cecilio Ball Other [facility] Other 07-17-2023 10:15-0500 Systolic blood pressure 172 mm[Hg] Cecilio Ball Other [facility] Other 07-10-2023 14:45-0500 Body height 167.64 cm Cecilio Ball Other [facility] Other 07-10-2023 14:45-0500 Body mass index (BMI) [Ratio] 29.47 kg/m2 Cecilio Ball Other [facility] Other 07-10-2023 14:45-0500 Body weight 82.83 kg Cecilio Ball Other [facility] Other 07-10-2023 14:45-0500 Diastolic blood pressure 80 mm[Hg] Cecilio Ball Other [facility] Other 07-10-2023 14:45-0500 Respiratory rate 20 /min Cecilio Ball Other [facility] Other 07-10-2023 14:45-0500 Systolic blood pressure 150 mm[Hg] Cecilio Ball Other [facility] Other 06-20-2023 08:30-0400 Body height 167.64 cm Cecilio Ball Other [facility] Other 06-20-2023 08:30-0400 Body mass index (BMI) [Ratio] 29.6 kg/m2 Cecilio Ball Other [facility] Other 06-20-2023 08:30-0400 Body weight 83.19 kg Cecilio Ball Other [facility] Other 06-20-2023 08:30-0400 Diastolic blood pressure 76 mm[Hg] Cecilio Ball Other [facility] Other 06-20-2023 08:30-0400 Respiratory rate 20 /min Cecilio Ball Other [facility] Other 06-20-2023 08:30-0400 Systolic blood pressure 157 mm[Hg] Cecilio Ball Other [facility] Other 05-30-2023 13:45-0400 Body height 167.64 cm Cecilio Ball Other [facility] Other 05-30-2023 13:45-0400 Body mass index (BMI) [Ratio] 28.95 kg/m2 Cecilio Ball Other [facility] Other 05-30-2023 13:45-0400 Body weight 81.38 kg Cecilio Ball Other [facility] Other 05-30-2023 13:45-0400 Diastolic blood pressure 78 mm[Hg] Cecilio Ball Other [facility] Other 05-30-2023 13:45-0400 Respiratory rate 16 /min Cecilio Ball Other [facility] Other 05-30-2023 13:45-0400 Systolic blood pressure 158 mm[Hg] Cecilio Ball Other [facility] Other 02-14-2023 08:30-0400 Body height 167.64 cm Cecilio Ball Other [facility] Other 02-14-2023 08:30-0400 Body mass index (BMI) [Ratio] 28.57 kg/m2 Cecilio Ball Other [facility] Other 02-14-2023 08:30-0400 Body weight 80.29 kg Cecilio Ball Other [facility] Other 02-14-2023 08:30-0400 Diastolic blood pressure 80 mm[Hg] Cecilio Ball Other [facility] Other 02-14-2023 08:30-0400 Respiratory rate 16 /min Cecilio Ball Other [facility] Other 02-14-2023 08:30-0400 Systolic blood pressure 135 mm[Hg] Cecilio Ball Other [facility] Other 02-01-2023 08:15-0400 Body height 167.64 cm Jose Enrique Benji II Other [facility] Other 02-01-2023 08:15-0400 Body mass index (BMI) [Ratio] 27.44 kg/m2 Jose Enrique Wellsburg II Other [facility] Other 02-01-2023 08:15-0400 Body weight 77.11 kg Jose Enrique Wellsburg II Other [facility] Other 12-11-2022 10:30-0400 Body height 167.64 cm Cecilio Ball Other [facility] Other 12-11-2022 10:30-0400 Body mass index (BMI) [Ratio] 28.66 kg/m2 Cecilio Ball Other [facility] Other 12-11-2022 10:30-0400 Body weight 80.56 kg Cecilio Ball Other [facility] Other 12-11-2022 10:30-0400 Diastolic blood pressure 76 mm[Hg] Cecilio Ball Other [facility] Other 12-11-2022 10:30-0400 Respiratory rate 12 /min Cecilio Ball Other [facility] Other 12-11-2022 10:30-0400 Systolic blood pressure 151 mm[Hg] Cecilio Ball Other [facility] Other 11-09-2022 16:00-0400 Body mass index (BMI) [Ratio] 29.21 kg/m2 Jose Enrique Guerrerole II Other [facility] Other 11-09-2022 16:00-0400 Body weight 82.1 kg Jose Enrique Benji II Other [facility] Other 11-09-2022 10:30-0400 Body height 167.64 cm Cecilio Ball Other [facility] Other 11-09-2022 10:30-0400 Body mass index (BMI) [Ratio] 29.23 kg/m2 Cecilio Ball Other [facility] Other 11-09-2022 10:30-0400 Body weight 82.15 kg Cecilio Ball Other [facility] Other 11-09-2022 10:30-0400 Diastolic blood pressure 79 mm[Hg] Cecilio Ball Other [facility] Other 11-09-2022 10:30-0400 Respiratory rate 20 /min Cecilio Ball Other [facility] Other 11-09-2022 10:30-0400 Systolic blood pressure 152 mm[Hg] Cecilio Ball Other [facility] Other 10-12-2022 10:00-0500 Body height 167.64 cm Cecilio Ball Other [facility] Other 10-12-2022 10:00-0500 Body mass index (BMI) [Ratio] 29.24 kg/m2 Cecilio Ball Other [facility] Other 10-12-2022 10:00-0500 Body weight 82.19 kg Cecilio Ball Other [facility] Other 10-12-2022 10:00-0500 Diastolic blood pressure 70 mm[Hg] Cecilio Ball Other [employer] Other 10-12-2022 10:00-0500 Respiratory rate 12 /min Cecilio Ball Other [facility] Other 10-12-2022 10:00-0500 Systolic blood pressure 102 mm[Hg] Cecilio Ball Other [employer] Other Encounters Encounter Date Encounter Type Care Provider Facility Start: 11-06-2024 End: 11-06-2024 ambulatory [facility] Work Phone: Start: 11-06-2024 End: 11-06-2024 Patient encounter procedure [facility] Work Phone: Start: 10-01-2024 End: 10-01-2024 ambulatory [facility] Work Phone: Start: 10-01-2024 End: 10-01-2024 Patient encounter procedure [facility] Work Phone: Start: 08-18-2024 End: 08-18-2024 ambulatory Andrius Kipytautas Githiitis Facility:[facility] Start: 08-04-2024 End: 08-04-2024 ambulatory Andrius Vytautas Giedraitis Facility:[facility] Start: 07-14-2024 End: 07-14-2024 ambulatory Andrius Kipytautas Alexraitis Facility:[facility] Start: 05-28-2024 End: 05-28-2024 ambulatory [facility] Work Phone: Start: 05-28-2024 End: 05-28-2024 Patient encounter procedure [facility] Work Phone: Start: 05-26-2024 End: 05-26-2024 ambulatory Andrius Vytautas Githiitis Facility:[facility] Start: 04-07-2024 End: 04-07-2024 ambulatory Andrius Vytautas Giedraitis Facility:[facility] Start: 03-31-2024 End: 03-31-2024 ambulatory Andrius Kipytautas Giedraitis Facility:[facility] Start: 03-24-2024 End: 03-24-2024 ambulatory Andrius Vytautas Giedraitis Facility:[facility] [place] Start: 03-10-2024 End: 03-10-2024 ambulatory Andrius Vytautas Giedraitis Facility:[facility] Start: 02-25-2024 End: 02-25-2024 ambulatory Andrius Vytautas Giedraitis Facility:[facility] Start: 02-11-2024 End: 02-11-2024 ambulatory Andrius Kipytautas Alexraitis Facility:[facility] [place] Start: 01-28-2024 End: 01-28-2024 ambulatory Maddie Villalobos MD Facility:[facility] Start: 01-22-2024 End: 01-22-2024 ambulatory [facility] Work Phone: Start: 01-22-2024 End: 01-22-2024 Patient encounter procedure [facility] Work Phone: Start: 10-30-2023 Non-patient / Non-visit [facility] [facility] [facility] Work Phone: Start: 09-28-2023 End: 09-28-2023 ambulatory Cecilio Ball Other [facility] Other Start: 09-28-2023 Office outpatient vi sit 15 minutes Cecilio Ball [facility] Start: 09-28-2023 Telephone encounter Cecilio Ball [facility] Start: 09-21-2023 End: 09-21-2023 ambulatory Cecilio Ball Other [facility] Other Start: 09-21-2023 Telephone encounter Cecilio Ball [facility] Start: 09-11-2023 End: 09-11-2023 ambulatory Cecilio Ball Other [facility] Other Start: 09-11-2023 Office outpatient vi sit 15 minutes Cecilio Ball [facility] Start: 09-11-2023 Telephone encounter Cecilio Ball [facility] Start: 09-03-2023 End: 09-03-2023 ambulatory Cecilio Ball Other [facility] Other Start: 09-03-2023 Telephone encounter Cecilio Ball [facility] Start: 08-03-2023 End: 08-03-2023 ambulatory Cecilio Ball Other [facility] Other Start: 08-03-2023 Telephone encounter Cecilio Ball [facility] Start: 08-01-2023 End: 08-01-2023 ambulatory Cecilio Ball Other [facility] Other Start: 08-01-2023 Office outpatient vi sit 15 minutes Cecilio Ball [facility] Start: 07-17-2023 End: 07-17-2023 ambulatory Cecilio Sourav Other [employer] Other Start: 07-17-2023 Office outpatient vi sit 15 minutes Cecilio Ball [facility] Start: 07-10-2023 End: 07-10-2023 ambulatory Cecilio Ball Other [facility] Other Start: 07-10-2023 Office outpatient vi sit 15 minutes Cecilio Ball [facility] Start: 06-20-2023 End: 06-20-2023 ambulatory Cecilio Sourav Other [employer] Other Start: 06-20-2023 Office outpatient vi sit 25 minutes Cecilio Ball [facility] Start: 06-15-2023 End: 06-15-2023 ambulatory Cecilio Benjamin Other [employer] Other Start: 06-15-2023 Telephone encounter Cecilio Benjamin [facility] Start: 05-30-2023 End: 05-30-2023 ambulatory Cecilio Benjamin Other [employer] Other Start: 05-30-2023 Office outpatient vi sit 15 minutes Cecilio Ball [facility] Start: 03-20-2023 Telephone encounter David Jaeger DO Work Phone: [facility] Comment on above: Follow Up Phone Call Start: 03-15-2023 End: 03-15-2023 ambulatory DAVID JAEGER Facility:[facility] Start: 02-27-2023 Orders Only David Marcos DO Work Phone: Procedures Comment on above: Pseudoclaudication s yndrome (Primary Dx); Lumbar radiculopathy Start: 02-26-2023 Telephone encounter David Jaeger DO Work Phone: [facility] Comment on above: Procedure Start: 02-19-2023 Telephone encounter David Jaeger DO Work Phone: [facility] Comment on above: Appointment Start: 02-14-2023 End: 02-14-2023 ambulatory Cecilio Benjamin Other [employer] Other Start: 02-14-2023 Patient encounter procedure Cecilio Benjamin [facility] Start: 02-13-2023 End: 02-13-2023 ambulatory Cecilio Benjamin Other [employer] Other Start: 02-13-2023 Telephone encounter Cecilio Benjamin [facility] Start: 02-08-2023 End: 02-08-2023 ambulatory Cecilio Benjamin Other [employer] Other Start: 02-08-2023 Telephone encounter Cecilio Benjamin [facility] Start: 02-01-2023 End: 02-01-2023 ambulatory Jose Enrique Leblanc II Other [employer] Other Start: 02-01-2023 Office outpatient vi sit 25 minutes Jose Enrique [place] II [facility] Start: 12-11-2022 End: 12-11-2022 ambulatory Cecilio Benjamin Other [employer] Other Start: 12-11-2022 Office outpatient vi sit 15 minutes Cecilio Benjamin [facility] Start: 11-09-2022 End: 11-09-2022 ambulatory Jose Enrique Leblanc II Facility:[facility] Start: 11-09-2022 End: 11-09-2022 Patient encounter procedure MD Jose Enrique Leblanc II Work Phone: [facility] Start: 11-09-2022 End: 11-09-2022 ambulatory MD Jose Enrique Leblanc II Work Phone: [facility] Work Phone: Start: 11-09-2022 Office outpatient ne w 45 minutes Jose Enrique [place] II [facility] Start: 11-09-2022 Office outpatient vi sit 15 minutes Cecilio Benjamin [facility] Start: 11-05-2022 End: 11-05-[address] CECILIO BENJAMIN Facility:[facility] Start: 10-12-2022 End: 10-12-2022 ambulatory Cecilio Benjamin Other [employer] Other Start: 10-12-2022 Office outpatient vi sit 25 minutes Cecilio Benjamin [facility] Start: 09-27-2022 End: 09-27-2022 ambulatory Cecilio Benjamin Other [facility] Other Start: 09-27-2022 Telephone encounter Cecilio Benjamin [facility] Start: 09-26-2022 End: 09-27-[address] CECILIO BENJAMIN Facility:[facility] Start: 08-25-2022 End: 08-25-2022 ambulatory Cecilio Benjamin Other [facility] Other Start: 08-25-2022 Telephone encounter Cecilio Benjamin [facility] Start: 08-10-2022 End: 08-10-[address] CECILIO BENJAMIN Facility:[facility] Start: 02-09-2022 End: 02-10-[address] CECILIO BENJAMIN Facility:[facility] Start: 12-06-2021 End: 12-07-[address] CECILIO BENJAMIN Facility:[facility] Start: 01-22-2018 End: 04-20-2018 Patient encounter [id number] AUGUSTINE BENJAMIN Facility:[facility] Procedures Date Procedure Procedure Detail Performing Clinician Start: 11-09-2022 Pelvis X-ray MD Jose Enrique Leblanc II Work Phone: Start: 11-09-2022 Radiologic examinati on of knee MD Jose Enrique Leblanc II Work Phone: Plan of Treatment Date Care Activity Detail Author Start: 01-22-2024 Patient referral [facility] Work Phone: Start: 04-20-2023 Influenza vaccination INFLUENZA (#1) [facility] Start: 10-01-2022 COVID-19 VACCINE (5 - Moderna series) COVID-19 VACCINE (5 - Moderna series) [facility] Start: 08-20-2022 ADVANCE DIRECTIVE DISCUSSION ADVANCE DIRECTIVE DISCUSSION [facility] Start: 08-20-2022 DEPRESSION ASSESSMENT DEPRESSION ASS ESSMENT [facility] Start: 09-19-2021 COVID-19 VACCINE (4 - Booster for Moderna series) COVID-19 VACCINE (4 - Booster for Moderna series) [facility] Start: 09-19-2021 COVID-19 VACCINE (4 - Moderna series) COVID-19 VACCINE (4 - Moderna series) [facility] Start: 01-02-2021 DIABETES SCREEN DIABETES SCREEN [facility] Start: 1991 SHINGRIX VACCINE (1 of 2) SHINGRIX VACCINE (1 of 2) [facility] Start: 1960 Urine microalbumin profile DTAP,TDAP,TD (1 - Tdap) [facility] Start: 1959 SPIROMETRY SPIROMETRY [facility] Start: 1947 PNEUMOCOCCAL: 65+ (1 - PCV) PNEUMOCOCCAL: 65+ (1 - PCV) [facility] Comprehensive metabo lic 2000 panel - Serum or Plasma [facility] Patient referral [facility] Work Phone: SPINE INTERVENTION PROCEDURE SPINE INTERVENTION PROCEDURE Procedures Routine Spinal stenosis, lumbar region with neurogenic claudication Lumbar radiculopathy, chronic Ordered: 02/19/2023 [facility] Work Phone: Comment on above: Ordered: 02/19/2023 [facility] Immunizations Immunization Date Immunization Notes Care Provider Coleman bermudez 05-28-2024 influenza, high dose seasonal, preservative-free [facility] 05-30-2023 COVID-19 Vaccine Moderna - Documentation Purposes Only Cecilio Benjamin Other [facility] 05-30-2023 influenza virus vaccine, unspecified formulation [facility] 05-30-2023 influenza, high dose seasonal, preservative-free Cceilio Benjamin Other [facility] Other 06-13-2022 influenza virus vaccine, split virus (incl. purified surface antigen) Cecilio Benjamin Other [facility] Other 06-13-2022 influenza virus vaccine, unspecified formulation [facility] 06-13-2022 influenza, high dose seasonal, preservative-free Jose Enrique Wellsburg II Other [facility] Other 05-31-2022 COVID-19 Pfizer (bivalent) Jose Enrique Wellsburg II Other [facility] 05-31-2022 COVID-19 Pfizer (Pediatric) Cecilio Benjamin Other [facility] 07-25-2021 COVID-19 Vaccine Moderna - Documentation Purposes Only Jose Enrique Benji II Other [facility] 05-03-2021 zoster vaccine recombinant Jose Enrique Wellsburg II Other [facility] 05-03-2021 zoster vaccine, live Benjami n [facility] Other [facility] 01-28-2021 zoster vaccine recombinant Jose Enrique Benji II Other [facility] 01-28-2021 zoster vaccine, live Benjami n [facility] Other [facility] 10-25-2020 COVID-19 Vaccine Moderna - Documentation Purposes Only Jose Enrique Wellsburg II Other [facility] 09-27-2020 COVID-19 Vaccine Moderna - Documentation Purposes Only Jose Enrique Wellsburg II Other [facility] 05-24-2020 influenza virus vaccine, split virus (incl. purified surface antigen) Cecilio Benjamin Other [facility] Other 05-24-2020 influenza virus vaccine, unspecified formulation [facility] 01-03-2019 diphtheria, tetanus toxoids and acellular pertussis vaccine, unspecified formulation Cecilio Benjamin Other [facility] 12-25-2018 pneumococcal polysaccharide vaccine, 23 valent Jose Enrique Benji II Other [facility] 04-30-2018 influenza virus vaccine, split virus (incl. purified surface antigen) Cecilio Benjamin Other [facility] Other 04-30-2018 influenza virus vaccine, unspecified formulation [facility] 04-09-2017 influenza virus vaccine, split virus (incl. purified surface antigen) Cecilio Benjamin Other [facility] Other 04-09-2017 influenza virus vaccine, unspecified formulation [facility] 05-31-2016 zoster vaccine, live Jose Enrique Wellsburg II Other [facility] 05-13-2016 influenza virus vaccine, split virus (incl. purified surface antigen) Cecilio Benjamin Other [facility] Other 05-13-2016 influenza virus vaccine, unspecified formulation [facility] 05-09-2015 influenza virus vaccine, split virus (incl. purified surface antigen) Cecilio Benjamin Other [facility] Other 05-09-2015 influenza virus vaccine, unspecified formulation [facility] 03-06-2015 pneumococcal conjuga te vaccine, 13 valent Jose Enrique Wellsburg II Other [facility] 05-07-2014 tetanus and diphther ia toxoids, adsorbed, preservative free, for adult use (5 Lf of tetanus toxoid and 2 Lf of diphtheria toxoid) Cecilio Benjamin Other [facility] 04-23-2013 tetanus and diphther ia toxoids, adsorbed, preservative free, for adult use (5 Lf of tetanus toxoid and 2 Lf of diphtheria toxoid) Cecilio Benjamin Other [facility] 08-21-2012 pneumococcal polysaccharide vaccine, 23 valent Cecilio Benjamin Other [facility] 12-12-2011 zoster vaccine, live Jose Enrique Wellsburg II Other [facility] Payers Date Payer Category Payer Self-pay 2022 Unknown [id number] 2018 Medicare [id number] 2006 Medicare [id number] 2006 Unknown [id number] 1959 Medicare [id number] 2.1 [id number] 1959 Unknown [id number] 2.16. [id number] 1941 Unknown [id number] 2.16.84 [id number] 1941 Unknown [id number] 2.16.84 0.1.141740.3.579.2.593 1941 Unknown [id number] 2.16.84 0.1.304203.3.579.2.593 1941 Unknown [id number] 2.16.84 0.1.576396.3.579.2.593 1941 Unknown [id number] 2.16.84 0.1.921051.3.579.2.593 1941 Unknown [id number] 2.16. 840.1.101721.3.579.2.196 1941 Unknown [id number] 2.16. 840.1.595052.3.579.2.196 1941 Unknown [id number] 2.16. 840.1.519683.3.579.2.196 1941 Unknown [id number] 2.16. 840.1.258230.3.579.2.196 1941 Unknown [id number] 2.16. 840.1.939209.3.579.2.196 1941 Unknown [id number] 2.16. 840.1.534906.3.579.2.196 1941 Unknown [id number] 2.16. 840.1.933117.3.579.2.196 1941 Unknown [id number] 2.16. 840.1.513731.3.579.2.196 1941 Unknown [id number] 2.16. 840.1.709024.3.579.2.196 1941 Unknown [id number] 2.16. 840.1.581842.3.579.2.196 1941 Unknown [id number] 2.16. 840.1.853384.3.579.2.196 Unknown [id number] 2.16.8 [id number] Social History Date Type Detail Facility Start: 05-09-2021 End: 03-15-2023 Sex Assigned At [facility] Start: 1940 Sex Assigned At Male F [facility] Start: 06-13-2017 End: 01-22-2024 Tobacco smoking status WAIS Never smoked tobacco [facility] Start: 06-13-2017 Tobacco use and exposure Smokeless tobacco non-user [facility] Start: 05-09-2021 Alcohol intake Current drinke r of alcohol (finding) [facility] Start: 12-11-2017 Alcohol Comment [employer] in coffee [facility] Start: 1940 Sex Assigned At Not on file [facility] Start: 05-09-2021 End: 03-15-2023 History of Social function [facility] Adult Depression Screening Assessment 1 [facility] Start: 10-01-2024 End: 11-06-2024 Sex Male (finding) [facility] Medical Equipment Procedure Code Equipment Code Equipment Origin al Text Equipment Identifier Dates Russell Sw[employer]ock Tenodesis 8mm Biocomposite 19.5mm Suture [place] Eyelet - [id number] Start: 06-29-2017 Sleeve V40 +0mm Offset [place] Taper Titanium Adapter Hip - [id number] Start: 01-01-2018 Screw [employer] Secur-Fit Torx 6.5mm Titanium 20mm Bone Sterile Acetabular - [id number] Start: 01-01-2018 Clinical Notes 08-25-2022 to 10-01-2024 Note Date & Type Note Facility 10-01-2024 Evaluation note Diagnosis Onset Date Resolution Chronic bronchitis, simple acute October 01 025 8:30am Chronic kidney disease, stage 3a acute October 01 025 8:30am Generalized anxiety disorder acute October 01 8:30am Hypertension acute September 8:30am IFG (impaired fasting glucose) acute October 01 8:30am Lumbar spondylolysis acute 2024 8:30am Obstructive sleep apnea acute 2024 8:30am Chronic obstructive pulmonary disease with (acute) lower respiratory infection noneactive October 8:56am Acute exacerbation of chronic obstructive airways disease noneactive November 06, 2024 8:56am [facility] Work Phone: 1(345) 391-177402-12-2025 Evaluation note* Diagnosis Onset Date Resolution Status Admit Date Chronic bronchitis, simple acute October 01, 2024 8:30am Chronic kidney disease, stag e 3a acute October 01 025 8:30am Generalized anxiety disorder acute October 01, 2024 8:30am Hypertension acute September 8:30am IFG (impaired fasting glucose) acute October 01, 2024 8:30am Lumbar spondylolysis acute 2024 8:30am Obstructive sleep apnea acute 2024 8:30am [facility] Work Phone: 1(236) 562-630106-04-2024 Evaluation note* Diagnosis Onset Date Resolution Status Chronic bronchitis, simple a cute Chronic kidney disease, stage 3a acute Elevated cholesterol acute Generalized anxiety disorder acute Hypertension acute Lumbar spondylolysis acute Obstructive sleep apnea acut e Medicare annual wellness visit, subsequent noneactive [facility] Work Phone: 1(181) 294-409602-09-2024 Evaluation note* Encounter Date Diagnosis Assessment Notes [...] and clinically improving, no further treatment necessary [facility] Other 02-02-2024 Evaluation note* Encounter Date Diagnosis Assessment Notes Treatment Notes Treatment Clinical Notes Sep, Carotid bruit, unspecified laterality (ICD-10 - R09.89) [facility] Other 01-23-2024 Evaluation note* Encounter Date Diagnosis [...] tid Initiate Prednisone _update office on Sunday [facility] Other 01-15-2024 Evaluation note* Encounter Date Diagnosis Assessment Notes Treatment Notes Treatment Clinical Notes Aug, JONATHAN (generalized anxiety disorder) (ICD-10 - F41.1) [facility] Other 12-13-2023 Evaluation note* Encounter Date Diagnosis [...] best 2/3 readings w/ goal < 135/85 [facility] Other 11-28-2023 Evaluation note* Encounter Date Diagnosis [...] daily for blisters and ulcerations. Moisturizers daily [facility] Other 11-21-2023 Evaluation note* Encounter Date Diagnosis [...] Call if develop increased pain or erythema [facility] Other 11-01-2023 Evaluation note* Encounter Date Diagnosis [...] use, the patient reduces the risk for PR, CVA, HTN, cardiac dysrhythmias and sudden cardiac [...] very active. No change in medical treatment [facility] Other 10-27-2023 Evaluation note* Encounter Date Diagnosis Assessment Notes Treatment Notes Treatment Clinical Notes May, JONATHAN (generalized anxiety disorder) (ICD-10 - F41.1) [facility] Other 10-11-2023 Evaluation note* Encounter Date Diagnosis [...] They may safely use Tylenol as needed. [facility] Other 08-01-2023 Miscellaneous Notes* Telephone Encounter - Neida Porter MA - 03/20/2023 12:26 PM EDT DATE OF SERVICE: 03/15/2023 PATIENT'S PHONE NUMBERS: [phone] (home) OR @[facility]@ PROVIDER: Dr. Jaeger PROCEDURE: Elective Pain Management Procedure Left message on machine Asked pt to call back and speak with the specialty triage nurse with update. Please obtain percentage better and the duration of improvement. Please inquire if there were any problems afterwards. Neida Brink documented in [facility] encounterHol[facility] Miscellaneous Notes* Telephone Encounter - Linda Konx LPN - 02/26/2023 4:42 PM EDT Spoke to patient in [place] to pre procedure instructions. Pt must have a taxi cab driver. Pt advised to arrive 30 min [...] take. Advised on location of ASC-2nd floor [facility] Pt will receive a follow up call several days after by a steam train driver. If you experience any increase in weakness, difficulty walking or significant increase in pain thatlast more than 4 hours, please proceed to the Emergency Room and tell them you had a spine procedure done recently. Additionally, call us and notify us of these symptoms. Please call [phone] if you have any questions. Pt verbalized understanding. documented in this encounterHol[facility]07-03-[facility]23 Miscellaneous Notes* Telephone Encounter - Linda Knox LPN - 02/19/2023 11:57 AM EDT Order approved Spoke to daughter in [facility] to pre procedure instructions. Daughter given scheduling number [phone] Pt must have a taxi cab driver. Pt advised to arrive 30 min prior to the time given by the adjunct art history instructor. Pt advised will also receive a call the day before from the surgery center to confirm date/time. Pt can eat and drink as normal. and Pt can take medications as normal. No alcohol 24 hours prior. Pt is on ASA.- 81 mg okay to take. and must Advised on location of ASC-[address] [place] [address] Pt will receive a follow up call several days after by a steam train driver. If you experience any increase in weakness, difficulty walking or significant increase in pain thatlast more than 4 hours, please proceed to the Emergency Room and tell them you had a spine procedure done recently. Additionally, call us and notify us of these symptoms. Please call [phone] if you have any questions. Pt verbalized [...] call Celi as patient cannot hear well [phone] Patient has been identified by name and birthdate. Duration of symptoms: N/A Person calling: daughter: Celi Call patient at: N/A [phone] (home) [phone] (cell) Was an appointment scheduled: No Closing statement: Results or non-symptom based questions: Thank you for calling [facility], your call will be returned within the next business day. Camilla Jarrell Pss documented in this encounterHolmes [facility]06-28-20[facility] Evaluation note* Encounter Date Diagnosis [...] use, the patient reduces the risk for PR, CVA, HTN, cardiac dysrhythmias and sudden cardiac [...] (ICD-10 - F41.1) Healthy diet, keep active [facility] Other 06-22-2023 Evaluation note* Encounter Date Diagnosis Assessment Notes Treatment Notes Treatment Clinical Notes Jan, Elevated cholesterol (ICD-10 - E78.00) Jan, Stage 3a chronic kidney disease (ICD-10 - N18.31) Jan, Primary hypertension (ICD-10 - I10) Jan, Screening PSA (prostate specific antigen) (ICD-10 - Z12.5) Jan, High risk medication use (ICD-10 - Z79.899) [facility] Other 06-15-2023 Evaluation note* Encounter Date Diagnosis [...] this time 6. Follow up as needed [facility] Other 04-24-2023 Evaluation note* Encounter Date Diagnosis [...] use of statin, experiencing ADR and stopped [facility] Other 03-23-2023 Evaluation note* Encounter Date Diagnosis [...] - M17.12) Quad exercises, ice/heat and Tylenol [facility] Other 03-23-2023 Evaluation note* Encounter Date Diagnosis [...] injection well. 6. Follow up as needed [facility] Other 02-23-2023 Evaluation note* Encounter Date Diagnosis [...] use, the patient reduces the risk for PR, CVA, HTN, cardiac dysrhythmias and sudden cardiac [...] tract symptoms (ICD-10 - N40.1) Symptoms tolerable [facility] Other 02-08-2023 Evaluation note* Encounter Date Diagnosis Assessment Notes Treatment Notes Treatment Clinical Notes Sep, Elevated cholesterol (ICD-10 - E78.00) Sep, Stenosis of right carotid artery (ICD-10 - I65.21) Sep, Retinal hemorrhage of right eye (ICD-10 - H35.61) [facility] Other 01-06-2023 Evaluation note* Encounter Date Diagnosis Assessment Notes Treatment Notes Treatment Clinical Notes Aug, Carotid bruit, unspecified laterality (ICD-10 - R09.89) [facility] Other Evaluation noteNo assessment information available [facility] Work Phone: Evaluwpnkr noteNo InformationN[facility] Other evaluggjyd note* Diagnosis Spinal stenosis, lumbar region with neurogenic claudication- Primary Lumbar radiculopathy, chronic Thoracic or lumbosacral neuritis or radiculitis, unspecified documented in this encounter [facility]* Diagnosis Pseudoclaudication syndrome- Primary Spinal stenosis, lumbar region, with neurogenic claudication Lumbar radiculopathy Thoracic or lumbosacral neuritis or radiculitis, unspecified Pseudoclaudication syndrome Spinal stenosis, lumbar region, with neurogenic claudication Lumbar radiculopathy Thoracic or lumbosacral neuritis or radiculitis, unspecified documented in this encounter [facility] HospitalEvaludelaware hospital for the [facility] note* Diagnosis Onset Date Resolution Status Chronic bronchitis, simple a cute Chronic kidney disease, stage 3a acute Elevated cholesterol acute Generalized anxiety disorder acute Hypertension acute Lumbar spondylolysis acute Obstructive sleep apnea acut e [facility] Work Phone: History general Narrative - Reported* [...] JANELLE 06/2017 Hospitalization History see surgical history [facility] Other Hospital Discharge instructionsAmbulatory Orders* Referral to Pain Management Location: None [facility] Work Phone: Summary Purpose Family History Relationship Condition Age at Onset Recorded Date/T niru father Unknown Advance Directives Advance Directive Response Recorded Date/ Time Advance Directives No January 21 9:53am Advance Directive Response Recorded Date/ Time Advance Directives No January 21 4 8:53am Chief Complaint and Reason for Visit [...] September 8:30am Chronic kidney disease, stage 3a uar 2024 8:30am Generalized anxiety disorder October 012024 8:30am Hypertension October 01, 2024 8:30am IFG (impaired fasting glucose) October 01, 2024 8:30am Lumbar spondylolysis October 01, 2024 8:30am Obstructive sleep apnea October 01 8:30am Chief Complaint Admit Date 4 month f/u October 01, 2024 8:30am URI November 06, 2024 8:5 6am Reason for Visit Admit Date Chronic bronchitis, simple September 8:30am Chronic kidney disease, stage 3a uar 2024 8:30am Generalized anxiety disorder October 012024 8:30am Hypertension October 01, 2024 8:30am IFG (impaired fasting glucose) October 01, 2024 8:30am Lumbar spondylolysis October 01, 2024 8:30am Obstructive sleep apnea October 01 8:30am Chronic obstructive pulmonar y disease with (acute) lower respiratory infection November 06, 2024 8:56am Acute exacerbation of chronic obstructiv e airways disease November 06, 2024 8:56am Additional Source Comments (unrecognized sect ion and content) No Status Records FoundNo Status Records FoundNo Status Records FoundNo Status Records FoundNo Status Records FoundNo Status Records FoundNo Status Records Found INFORMATION SOURCE (unrecogn ized section and content) DATE CREATED AUTHOR 02/06/2018 [facility] DATE CREATED AUTHOR AUTHOR'S ORGANIZ ATION 06/10/2018 [facility] DATE CREATED AUTHOR AUTHOR'S ORGANIZ ATION 11/06/[address] [facility] DATE CREATED AUTHOR AUTHOR'S ORGANIZ ATION 12/21/2022 [facility] DATE CREATED AUTHOR AUTHOR'S ORGANIZ ATION 03/15/2023 [facility] DATE CREATED AUTHOR AUTHOR'S ORGANIZ ATION 03/22/2023 [facility] DATE CREATED AUTHOR AUTHOR'S ORGANIZ ATION 09/02/2024 [facility] REASON FOR VISIT [...] Enrique Leblanc II, MD Attending Provider Active Best Worker Relationship Specialty Start Date End Date Cecilio Benjamin DO PCP - General Internal Medicine 09/04/13 Best Worker Relationship Specialty Start Date End Date Cecilio Benjamin DO PCP - General Internal Medicine 09/04/13 Best Worker Relationship Specialty Start Date End Date Cecilio Benjamin DO PCP - General Internal Medicine 09/04/13 Best Worker Relationship Specialty Start Date End Date Cecilio Benjamin DO PCP - General Internal Medicine 09/04/13 Team Status: Active Member Role Status Dates Cecilio Benjamin DO Primary Care Provider Active Start: October 30, 2023 JUSTIN Gan Attending Provider Active Start : October 30, 2023 Team Status: Inactive Member Role Status Dates Cecilio Sourav DO Primary Care Provide r, Attending Provider Active Start: January 22, 2024 End: January 22, 2024 Team Status: Inactive Member Role Status Dates Cecilio Sourav DO Primary Care Provide r, Attending Provider Active Start: October 01, 2024 End: October 01, 2024 Team Status: Inactive Member Role Status Dates Cecilio Benjamin DO Primary Care Provide r, Attending Provider Active Start: November 06, 2024 End: November 06, 2024 Goals (unrecognized section and content) Goals may be documented in a n alternate section Source Comments (unrecognize d section and content) In the event this informatio n is protected by the Federal Confidentiality of Alcohol and Drug Abuse Patient Records regulations: The Federal rules restrict any use of the information to criminally investigate or prosecute any alcohol or drug abuse patient.[facility] HospitalIn the event this information is protected by the Federal Confidentiality of Alcohol and Drug Abuse Patient Records regulations: The Federal rules restrict any use of the information to criminally investigate or prosecute any alcohol or drug abuse patient.[facility] HospitalIn the event this information is protected by the Federal Confidentiality of Alcohol and Drug Abuse Patient Records regulations: The Federal rules restrict any use of the information to criminally investigate or prosecute any alcohol or drug abuse patient.[facility] HospitalIn the event this information is protected by the Federal Confidentiality of Alcohol and Drug Abuse Patient Records regulations: The Federal rules restrict any use of the information to criminally investigate or prosecute any alcohol or drug abuse patient.[facility] FOR RECORDS PERTAINING TO PATIENTS [...] BE BASED ON THE PRIMARY CLINICAL RECORDS. [employer] [facility]. provides no warranty or guarantee of the accuracy or completeness of information in this document.
[2024-11-17 11:10] VITALS: BP 172/78; PULSE 66; TEMP 36.6; O2SAT 99
[2024-11-17 11:39] VITALS: BP 167/79; BP 186/84; PULSE 64; PULSE 68; O2SAT 99
[2024-11-17] MEDS: BUPIVACAINE HCL 0.25% PF 25 MG/10 ML VIAL INJ (11:42)
[2024-11-17] MEDS: 0.9 % SODIUM CHLORIDE 10 ML SYRINGE - SALINE FLUSH INJ (11:42)
[2024-11-17] MEDS: IOHEXOL 240 MG/ML - 10 ML VIAL 24 MG INJ (11:42)
[2024-11-17] MEDS: LIDOCAINE HCL 2% 400 MG/20 ML MDV 3 ML INJ (11:43)
[2024-11-17] MEDS: METHYLPREDNISOLONE ACETATE 80 MG/ML VIAL INJ (11:43)
--- NOTE | 2024-11-17 11:48 | W.PM.PROCNOT ---
Date of procedure: 11/17/24 Pre-op diagnosis: Pain due to lumbar stenosis with neurogenic claudication Post-op diagnosis: same as pre-op Procedure: Procedure: Bilateral L4-5 transforaminal epidural steroid injection Medications: Bupivacaine 0.25% 2cc, lidocaine 2% 1cc, depomedrol 80mg The patient was seen and examined in the preoperative holding area.? Informed consent was obtained and placed on the chart.? Patient was brought to the medical procedure unit and placed in the prone position where a timeout was completed verifying the correct patient, procedure site, position, and planned special equipment using sterile aseptic technique.? Under direct fluoroscopic visualization a 25-gauge Quincke tipped spinal needle was advanced at level left L4-5 to the designated neural foramen where contrast dye was injected to show adequate spread.? There was no evidence of vascular or adverse uptake.? Epidural spread was appreciated.? The above-mentioned injectate was then placed in a 1.5 mL aliquot preceded by negative aspiration.? The needle was removed. The same procedure, at the same level, was completed on the opposite side. ? Patient was taken to the postprocedural recovery area and monitored for an appropriate length of time before found suitable for discharge in the accompaniment of a responsible adult. Anesthesia: Local Surgeon: Maddie Villalobos Pathology: none sent Condition: stable Disposition: no change
== END 2024-11-17 11:49 | disposition home or self-care (01) ==
LOC: SURGOUT 10:45
PROVIDERS: PCP Internal Medicine; Visit Provider Anesthesiology
DX: M48.062 Spinal stenosis, lumbar region with neurogenic claudication (principal); M54.50 Low back pain, unspecified
CPT/HCPCS: 64483; J0665; J1010; Q9966

== ENCOUNTER 2024-12-03 08:44 | Outpatient (OUT) | payer MEDICARE, OTHER, SELFPAY ==
--- OUTSIDE RECORDS SUMMARY | 2024-12-03 09:04 | XMS_ITS | CCD ---
Author Organization [facility] Care Team Providers Care Strategy Manager Name Role Phone SOURAV [phone] UNKNOWN Unavailable Unavailable BETH GOODEN Unavailable Unavailable [...] Unavailable Griselda WHARTON, Maddie Carreno Attending Unavailable Giedraitis , Maddie Carreno Attending Unavailable Giedraitis , Andbeto Carreno Attending Unavailable Giedraitis , Andbeto Carreno Attending Unavailable Giedraitis , Andbeto Carreno Attending Unavailable Giedraitis , Andbeto Carreno Attending Unavailable Giedraitis , Andbeto Carreno Attending Unavailable Giedraitis , Andbeto Carreno Attending Unavailable Giedraitis , Andbeto Carreno Attending Unavailable Allergies Allergy Classification Reported Allergen(s) Allergy Type Date of Onset Reaction(s) Facility (7 sources) bacitracin; Translations: [bacitracin] Drug Allergy 09-11-2013 Unknown [facility] Repository (19 sources) Albuterol Drug Allergy Unknown [employer] Other (20 sources) HMG-CoA reductase inhibitor Drug allergy Unknown [employer] [facility] Other Medications Current Medications Medication Drug Class(es) Dates Sig (Normalized) Sig (Original) acetaminophen 325 mg oral tablet (20 sources) Start: 10-17-2023 take 2 tablets by mouth every eight hours as needed Acetaminophen 325 mg tablet Active 325 MG PO Every 8 hours as needed October 17, 2023 1:00am 2 tablets by mouth orally every 8 hours PRN Start: 01-02-2018 take 2 tablets by [facility] every eight hours acetaminophen (TYLENOL) 500 mg tablet Take 2 tablets by mouth every 8 hours. (Mild pain reliever) 90 tablet 1 01/02/2018 Active take 2 tablets by mo [facility] every eight hours as needed Acetaminophen 325 MG 2 tablets by mouth Orally every 8 hours PRN Active Comment on above: Take 2 tablets by mo [facility] every 8 hours. (Mild pain reliever) aspirin 81 mg chewable tablet (6 sources) Platelet Aggregation Inhibitor, Nonsteroidal Anti-inflammatory Drug Start: 10-01-2024 take 1 tablet by mouth once daily Aspirin 81 mg tablet,chewable Active 81 MG PO Daily October 01, 2024 1:00am Start: 01-02-2018 take 1 tablet by christen twice daily aspirin, enteric coated (ASPIRIN, ENTERIC [...] 11:06am Start: 07-10-2023 take 1 capsule by [facility] every twelve hours Doxycycline Hyclate 100 MG 1 capsule Orally Twice a day for 7 days Aug, Not-Taking/PRN escitalopram 10 mg oral tablet (20 sources) Serotonin Reuptake Inhibitor Start: 10-01-2024 take 1 tablet by mouth once daily Escitalopram Oxalate 10 mg tablet Active 10 MG PO Daily October 01, 2024 10:09am Start: 04-02-2024 End: [...] Active 1 APPLIC TOPICAL Twice daily October 19, 2023 11:08am Start: 05-30-2023 Triamcinolone Acetonide 0.1 % 1 application Externally Twice a day for 30 days May, Active Start: 11-09-2022 Kenalog-40 Oct, 120 mg Completed/Discontinued Medications Medication Drug Class(es) Dates Sig (Normalized) Sig (Original) [id number] 200 actuat albuterol 0.09 mg/actuat metered dose [...] Discontinued 0.5 MG PO Daily at bedtime 90 90 October 19, 2023 11:06am April 02, 2024 [...] Comment on above: Take 1 capsule by [facility] twice daily. (Stool softener) ferrous sulfate 325 [...] Comment on above: Take 1 capsule by [facility] once daily. 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 03-20-[address] [facility] Telephone (SPGAAV) RUPERTO THORPE ([id number]) 1940 [employer]* Date Time Provider Department 03/20/23 DAVID JAEGER [facility] During your visit today, we recorded the following information about you: Neida Porter MA 03/20/2023 12:30 PM Signed DATE OF SERVICE: 03/15/2023 PATIENT'S PHONE NUMBERS: [phone] (home) OR @WKPH@ PROVIDER: Dr. Jaeger PROCEDURE: [...] work Requesting to call his CELL ONLY [phone] what to do next Leave Detailed messages [...] of spine injection schedulers to call at [phone]. Patient will call if he wants to schedule another injection. 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 Author [...] procedure / surgery at a [facility] facility. Patient and I have discussed in [...] surgery/procedure as indicated on the consent form. [facility] approved time out was performed identifying the site, side and level of procedure prior to start of procedure. [facility] [place] - ELECTIVE PROCEDURE Lumbar Transforaminal Epidural Steroid [...] the entire procedure. David Jaeger DO, MBA [facility] RUPERTO THORPE ([id number]) 1940 M [place] [place] Date Time Provider Department 02/26/23 DAVID JAEGER During your visit today, we recorded the following information about you: Linda Chandler HODA 02/26/2023 4:49 PM Signed Spoke to patient in reguards to pre procedure instructions. Pt must have a spike driver. Pt advised to arrive 30 min [...] take. Advised on location of [facility] floor [facility] Pt will receive a follow up call several days after by a housekeeping and laundry team leader. If you experience any increase in weakness, difficulty walking or significant increase in pain that last more than 4 hours, please proceed to the Emergency Room and tell them you had a spine procedure done recently. Additionally, call us and notify us of these symptoms. Please call [phone] if you have any questions. Pt verbalized [...] Status:Closed by LINDA KNOX LPN on 02/26/23 [facility] Unique 02-19-2023 [facility]HELLE Telephone (SPNMAV) RUPERTO THORPE ([id number]) 1940 [employer] Date Time Provider Department 02/19/23 DAVID JAEGER During your visit today, we recorded the following information about you: Camilla Jarrell Pss 02/19/2023 9:27 AM Signed Rupertonarda Thorpe daughter Celi is calling David Jaeger DO today to ask about getting patient a shot again - Last one in 2020 Please advise what patient needs as far as OV or MRI or if he can be scheduled for procedure - daughter states she left a VM somewhere last week but never heard back Please call Celi as patient cannot hear well [phone] Patient has been identified by name and birthdate. Duration of symptoms: N/A Person calling: daughter: Celi Call patient at: N/A [phone] (home) [phone] (cell) Was an appointment scheduled: No Closing statement: Results or non-symptom based questions: Thank you for calling [facility], your call will be returned within the next business day. Camilla Jarrell [facility] Linda Knox LPN 02/19/2023 9:45 AM Signed Spine Intervention order formatted for review Linda Knox LPN 02/19/2023 11:59 AM Signed Order approved Spoke to daughter in [facility] to pre procedure instructions. Daughter given scheduling number [phone] Pt must have a spike driver. Pt advised to arrive 30 min prior to the time given by the surgery scheduler. Pt advised will also receive a call the day before from the surgery center to confirm date/time. Pt can eat and drink as normal. and Pt can take medications as normal. No alcohol 24 hours prior. Pt is on ASA.- 81 mg okay to take. and must Advised on location of ASC-2[facility] floor [facility] Pt will receive a follow up call several days after by a housekeeping and laundry team leader. If you experience any increase in weakness, difficulty walking or significant increase in pain that last more than 4 hours, please proceed to the Emergency Room and tell them you had a spine procedure done recently. Additionally, call us and notify us of these symptoms. Please call [phone] if you have any questions. Pt verbalized understanding. 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 Normal [facility] XR knee LT 4V*on 11-09-2022 XR knee LT 4V* [facility] [place] [address] [place] [address] XRay Report Signed Patient: Ruperto Thorpe MR#: [id number] 5 : 1940 Acct:[id number] Age/Sex: 82 / M ADM Date: 11/09/22 [place] [facility] [place]: Type: [facility] Attending Dr: Jose Enrique Leblanc II, [...] Darren Yuen M.D.11/09/2022 5:03 PM Dictation Location: [place] [address] Transcribed By: [facility] 11/09/221702 Dictated By: Darren Yuen II, MD 11/09/221700 Signed By: 11/09/221702 Normal [facility] XR knee LT 4V* [facility] [employer] Other XR knee LT 4V* [facility] [employer] Other XR knee LT 4V* [address] [place] [address] [employer] Other XR knee LT 4V* [place] [address] No rt [employer] Other XR knee LT 4V* XRay Report [employer] Other XR knee LT 4V* Signed [employer] Other XR knee LT 4V* Patient: Ruperto Thorpe MR#: [id number] [employer] Other XR knee LT 4V* 5 [employer] Other XR knee LT 4V* : 1940 Acct:[id number] [employer] Other XR knee LT 4V* Age/Sex: 82 / M ADM Date: 11/09/22 [employer] Other XR knee LT 4V* Loc: [facility] Room: Type : [facility] [employer] Other XR knee LT 4V* Attending Dr: Jose Enrique Leblanc II, MD [employer] Other XR knee LT 4V* Copies to: Jose Enrique Leblanc MD [employer] Other XR knee LT 4V* Ordering Provider: Jose Enrique Leblanc MD [employer] Other XR knee LT 4V* Date of Service: 11/09/22 [employer] Other XR knee LT 4V* XR/XR knee LT 4V*: Acute pain of left knee [employer] Other XR knee LT 4V* XR knee LT 4V* 11/09/2022 3:15 PM [employer] Other XR knee LT 4V* SIGNS AND SYMPTOMS: Acute pain of left knee [employer] Other XR knee LT 4V* PROTOCOL: Frontal, lateral, oblique, and sunrise views of the left knee [employer] Other XR knee LT 4V* COMPARISON: 11/05/2022 [employer] Other XR knee LT 4V* FINDINGS: [employer] Other XR knee LT 4V* There is similar narrowing of the weightbearing joint spaces with chondrocalcinosis of the menisci [employer] Other XR knee LT 4V* suggesting underlyin g CPPD. There is narrowing of the patellofemoral joint space with spurring at [employer] Other XR knee LT 4V* the superior pole of patella. There is a small joint effusion. No soft tissue swelling. No acute [employer] Other XR knee LT 4V* displaced fracture. Vascular calcifications are present posteriorly. [employer] Other XR knee LT 4V* XR/XR knee LT 4V* [employer] Other XR knee LT 4V* IMPRESSION: [employer] Other XR knee LT 4V* Tricompartmental degenerative changes are noted in the left knee with a small joint effusion. [employer] Other XR knee LT 4V* There is chondrocalcinosis of the menisci suggesting underlying CPPD. [employer] Other XR knee LT 4V* Impression dictated by: Darren Yuen M.D.11/09/2022 5:03 PM [employer] Other XR knee LT 4V* Dictation Location: [place] [address] [employer] Other XR knee LT 4V* Transcribed By: COLIN 11/09/22 1703 [employer] Other XR knee LT 4V* Dictated By: Darren Yune II, MD 11/09/22 170 [employer] Other XR knee LT 4V* Signed By: [employer] Other XR knee LT 4V* 11/09/22 170 [employer] Other XR pelvis 1-2Von 11-09-2022 XR pelvis 1-2V [facility] [place] [address] [place] [address] XRay Report Signed Patient: Ruperto Thorpe MR#: [id number] 5 : 1940 Acct:[id number] Age/Sex: 82 / M ADM Date: 11/09/22 [place] [facility] [place]: Type: [facility] Attending Dr: Jose Enrique Leblanc II, [...] [facility] Transcribed By: [facility] 11/09/221700 Dictated By: Darren Yuen II, MD 11/09/221699 Signed By: 11/09/221700 [facility] XR pelvis 1-2V XR/XR pelvis 1-2V: Acute pain of left knee [employer] Other XR pelvis 1-2V XR pelvis 1-2V 11/09/2022 3:15 PM [employer] Other XR pelvis 1-2V SIGNS AND SYMPTOMS: Left knee pain [employer] Other XR pelvis 1-2V PROTOCOL: Frontal radiograph of the chest [employer] Other XR pelvis 1-2V COMPARISON: None [employer] Other XR pelvis 1-2V There is mild narrowing of the left hip joint space with subcortical cystic change on both sides of [employer] Other XR pelvis 1-2V the joint along the acetabular there is chondrocalcinosis of the labrum overlying the superior [employer] Other XR pelvis 1-2V acetabular rim and superior lateral femoral head. The bony ring of the pelvis is intact. There is [employer] Other XR pelvis 1-2V total right hip arthroplasty. Degenerative changes are noted in the sacroiliac joints. No fracture [employer] Other XR pelvis 1-2V is [employer] Other XR pelvis 1-2V XR/XR pelvis 1-2V [employer] Other XR pelvis 1-2V Degenerative changes are noted in the left hip with findings suspicious for previous labral [employer] Other XR pelvis 1-2V pathology. [employer] Other XR pelvis 1-2V Postoperative change s are noted in the right hip with total right hip arthroplasty hardware. [employer] Other XR pelvis 1-2V Impression dictated by: Darren Yuen M.D.11/09/2022 5:01 PM [employer] Other XR pelvis 1-2V Transcribed By: PWS 11/09/22 170 [employer] Other XR pelvis 1-2V Dictated By: Darren Yuen II, MD 11/09/221699 [employer] Other XR pelvis 1-2V 11/09/22 170 [employer] Other XR KNEE LT 4V or >on [...] There is chondrocalcinosis. Soft tissues: Unremarkable. IMPRESSION: Zvdz-bt-xrihbdze osteoarthritis as described above. Chondrocalcinosis. No acute fracture or dislocation. Electronically authenticated by: CHUCK JONES Date: 2022-11-05 11:19 Normal [facility] US CAROTID ART BILon [...] JONAS MCLEOD Date: 2022-09-26 10:58 Normal [facility] CBC AUTO DIFFon 08-10-2022 BASO # 0.0 103/ul Normal 0.0-0.1 [facility] Comment on above: Performed By: #### C BC #### [facility] [address] [place] [address] [address] Alexis Brink Basophils/100 WBC (Bld) 0.7 % Normal 0.2-2.0 [facility] Comment on above: Performed By: #### C BC #### [facility] [address] [place] [address] [address] Alexis Brink EO # 0.3 103/ul Normal 0.0-0.7 [facility] Comment on above: Performed By: #### C BC #### [facility] [address] [place] [address] [address] Alexis Brink Eosinophils/100 WBC (Bld) 6.1 % Normal 0.9-7.0 [facility] Comment on above: Performed By: #### C BC #### [facility] [address] [place] [address] [address] Alexis Brink Erythrocyte distribution width (RBC) [Ratio] 12.1 % Normal 11.0-15.0 [facility] Comment on above: Performed By: #### C BC #### [facility] [address] [place] [address] [address] Alexis Brink Hematocrit (Bld) [Volume fraction] 44.2 % Normal 42.0-54.0 [facility] Comment on above: Performed By: #### C BC #### [facility] [address] [place] [address] [address] Alexis Brink Hemoglobin (Bld) [Mass/Vol] 14.9 g/dL Normal 14.0-18.0 [facility] Comment on above: Performed By: #### C BC #### [facility] [address] [place] [address] Dr. Alexis Brink IG # 0.01 10e3/ul Normal 0.00-0.03 [facility] Comment on above: Performed By: #### C BC #### [facility] [address] [place] [address] Dr. Alexis Brink IG % 0.2 % Normal 0.0-0.5 [facility] Comment on above: Performed By: #### C BC #### [facility] [address] [place] [address] Dr. Alexis Brink LYMPH # 1.2 103/ul Normal 1.2-3.8 [facility] Comment on above: Performed By: #### C BC #### [facility] [address] [place] [address] Dr. Alexis Brink Lymphocytes/100 WBC (Bld) 21.3 % Normal 20.5-60.0 [facility] Comment on above: Performed By: #### C BC #### [facility] [address] [place] [address] Dr. Alexis Brink MANUAL DIFF REQ NO Normal [facility] Comment on above: Performed By: #### C BC #### [facility] [address] [place] [address] Dr. Alexis Brink MCH (RBC) [Entitic mass] 30.7 pg Normal 25.9-34.0 [facility] Comment on above: Performed By: #### C BC #### [facility] [address] [place] [address] Dr. Alexis Brink MCHC (RBC) [Mass/Vol] 33.7 g/dL Normal 29.9-35.2 [facility] Comment on above: Performed By: #### C BC #### [facility] [address] [place] [address] Dr. Alexis Brink MCV (RBC) [Entitic vol] 91.1 fL Normal 80.0-94.0 [facility] Comment on above: Performed By: #### C BC #### [facility] [address] [place] [address] Dr. Alexis Brink MONO # 0.5 103/ul Normal 0.3-0.8 [facility] Comment on above: Performed By: #### C BC #### [facility] [address] [place] [address] Dr. Alexis Brink Monocytes/100 WBC (Bld) 8.5 % Normal 1.7-12.0 [facility] Comment on above: Performed By: #### C BC #### [facility] [address] [place] [address] Dr. Alexis Brink NEUT # 3.5 103/ul Normal 1.4-6.5 [facility] Comment on above: Performed By: #### C BC #### [facility] [address] [place] [address] Dr. Alexis Brink Neutrophils/100 WBC (Bld) 63.2 % Normal 43.0-75.0 [facility] Comment on above: Performed By: #### C BC #### [facility] [address] [place] [address] Dr. Alexis Brink Platelet mean volume (Bld) [Entitic vol] 10.0 fL Normal 9.5-13.5 [facility] Comment on above: Performed By: #### C BC #### [facility] [address] [place] [address] Dr. Alexis Brink PLT 120 103/ul Critically low 150-450 [facility] Comment on above: Performed By: #### C BC #### [facility] [address] [place] [address] Dr. Alexis Brink RBC 4.85 106/ul Normal 4.70-6.10 [facility] Comment on above: Performed By: #### C BC #### [facility] [address] [place] [address] Dr. Alexis Brink WBC 5.6 103/ul Normal 4.0-11.0 [facility] Comment on above: Performed By: #### C BC #### [facility] [address] [place] [address] [address] Alexis Brink Covid-19 PCR (CVDTB)on 07-21 SARS-CoV-2 (COVID-19) RNA RICKY+probe Ql (Unsp spec) Not detected Normal NOT DETECTED [facility] Comment on above: Result Comment: This test is not yet approved or cleared by the [place] FDA. When there are no FDA-approved or cleared tests available, and other criteria are met, FDA can make tests available under an emergency access mechanism called an Emergency Use Authorization (EUA). The EUA for this test is supported by the Director Of National Sales of Health and Human Service's (HHS's) declaration [...] with SARS-CoV-2. Performed By: #### C VDTBH ####[facility] [address] [place], [place] [address]DrLainey Brink INFLUENZA A AND B AGon 08-10 [facility] BELOW Normal [facility] Comment on above: Result Comment: Nega tive for Flu A protein angiten. Infection due to Flu A cannot be ruled out. Flu A angiten in the sample may be below the detection limit of the test. Performed By: #### I NFLUAB ####[facility] [address] [place] [address]DrLainey Brink INFLUBNEGH SEE BELOW Normal [facility] Comment on above: Result Comment: Nega tive for Flu B protein antigen. Infection due to Flu B cannot be ruled out. Flu B antigen in the sample may be below the detection limit of the test. Performed By: #### I NFLUAB ####[facility] [address] [place], [place] [address]DrLainey Brink INFLUENZA A AG Negative Normal NEGATIVE SEE COMMENT [facility] Comment on above: Performed By: #### I NFLUAB ####[facility] [address] [place] [address]Dr. Alexis Brink INFLUENZA B AG Negative Normal NEGATIVE SEE COMMENT [facility] Comment on above: Performed By: #### I NFLUAB ####[facility] [address] [place] [address]Dr. Alexis Brink INTERNAL CONTROLS Within Normal Limits Normal Wi thin Normal Limits [facility] Comment on above: Performed By: #### I NFLUAB ####[facility] [address] [place] [address]Dr. Alexis Brink PROF CHEM 8 (BAS METB)on Anion gap [Moles/Vol] 11.4 mmol/L Normal [facility] Comment on above: Performed By: #### B NARA HSTROPN #### [facility] [address] [place] [address] [address] Alexis Brink Calcium [Mass/Vol] 8.9 mg/dL Normal 8.5-10.1 [facility] Comment on above: Performed By: #### B NARA HSTROPN #### [facility] [address] [place] [address] [address] Alexis Brink Chloride [Moles/Vol] 102 mmol/L Normal 98-107 [facility] Comment on above: Performed By: #### B NARA, HSTROPN #### [facility] [address] [place] [address] [address] Alexis Brink CO2 [Moles/Vol] 28.8 mmol/L Normal 21.0-32.0 [facility] Comment on above: Performed By: #### B NARA, HSTROPN #### [facility] [address] [place] [address] [address] Alexis Brink Creatinine [Mass/Vol] 1.35 mg/dL Critically high 0.70-1.30 [facility] Comment on above: Performed By: #### B NARA, HSTROPN #### [facility] [address] [place] [address] [address] Alexis Brink EGFR-AF AZERBAIJANI >60 Normal >=60 [facility] Comment on above: Performed By: #### B MP, HSTROPN #### [facility] [address] [place] [address] [address] Alexis Brink EGFR-NON AF AZERBAIJANI 51 mL/min/1.73m2 Critically low >=60 [facility] Comment on above: Performed By: #### B MP, HSTROPN #### [facility] [address] [place] [address] [address] Alexis Brink Glucose [Mass/Vol] 109 mg/dL Critically high 74-106 [facility] Comment on above: Performed By: #### B MP, HSTROPN #### [facility] [address] [place] [address] [address] Alexis Brink Potassium [Moles/Vol] 4.2 mmol/L Normal 3.5-5.1 [facility] Comment on above: Performed By: #### B MP, HSTROPN #### [facility] [address] [place] [address] [address] Alexis Brink Sodium [Moles/Vol] 138 mmol/L Normal 136-145 [facility] Comment on above: Performed By: #### B MP, HSTROPN #### [facility] [address] [place] [address] [address] Alexis Brink Urea nitrogen [Mass/Vol] 18.0 mg/dL Normal 7.0-18.0 [facility] Comment on above: Performed By: #### B MP, HSTROPN #### [facility] [address] [address] [address] Alexis Brink Urea nitrogen/Creatinin e [Mass ratio] 13.3 mg/mg Normal [facility] Comment on above: Performed By: #### B MP, HSTROPN #### [facility] [address] [address] [address] Alexis Brink TROPONIN, HIGH SENSITIVITYon 08-10-2022 HSTROP 22.2 pg/mL Normal 4.0-76.1 [facility] Comment on above: Result Comment: CUT- OFF POINTS HAVE BEEN ESTABLISHED BASED ON THE FOURTH UNIVERSAL DEFINITIONS OF MYOCARDIAL INFARCTION. THE UPPER REFERENCE LIMIT (URL) OF TROPONIN, DEFINED THE 99TH PERCENTILE OF cTnI DISTRIBUTION IN A REFERENCE POPULATION, HAS BEEN CONFIRMED THE DECISION THRESHOLD FOR MA DIAGNOSIS. Performed By: #### B MP, HSTROPN #### [facility] [address] [address] [address] Alexis Brink XR CHEST 1 Von [...] RADHA UNDERWOOD Date: 2022-08-10 16:07 Normal [facility] CBC AUTO DIFFon 02-09-2022 BASO # 0.0 103/ul Normal 0.0-0.1 [facility] Comment on above: Performed By: #### C BC #### [facility] [address] [address] [address] Alexis Brink Basophils/100 WBC (Bld) 0.6 % Normal 0.2-2.0 [facility] Comment on above: Performed By: #### C BC #### [facility] [address] [address] [address] Alexis Brink EO # 0.5 103/ul Normal 0.0-0.7 [facility] Comment on above: Performed By: #### C BC #### [facility] [address] [place] [address] Dr. Alexis Brink Eosinophils/100 WBC (Bld) 7.2 % Critically high 0.9-7.0 [facility] Comment on above: Performed By: #### C BC #### [facility] [address] [place] [address] Dr. Alexis Brink Erythrocyte distribution width (RBC) [Ratio] 12.4 % Normal 11.0-15.0 [facility] Comment on above: Performed By: #### C BC #### [facility] [address] [place] [address] Dr. Alexis Brink Hematocrit (Bld) [Volume fraction] 45.5 % Normal 42.0-54.0 [facility] Comment on above: Performed By: #### C BC #### [facility] [address] [place] [address] Dr. Alexis Brink Hemoglobin (Bld) [Mass/Vol] 15.4 g/dL Normal 14.0-18.0 [facility] Comment on above: Performed By: #### C BC #### [facility] [address] [place] [address] Dr. Alexis Brink IG # 0.02 10e3/ul Normal 0.00-0.03 [facility] Comment on above: Performed By: #### C BC #### [facility] [address] [place] [address] Dr. Alexis Brink IG % 0.3 % Normal 0.0-0.5 [facility] Comment on above: Performed By: #### C BC #### [facility] [address] [place] [address] Dr. Alexis Brink LYMPH # 1.3 103/ul Normal 1.2-3.8 [facility] Comment on above: Performed By: #### C BC #### [facility] [address] [place] [address] Dr. Alexis Brink Lymphocytes/100 WBC (Bld) 17.8 % Critically low 20.5-60.0 [facility] Comment on above: Performed By: #### C BC #### [facility] [address] [place] [address] Dr. Alexis Brink MANUAL DIFF REQ NO Normal [facility] Comment on above: Performed By: #### C BC #### [facility] [address] [place] [address] Dr. Alexis Brink MCH (RBC) [Entitic mass] 31.4 pg Normal 25.9-34.0 [facility] Comment on above: Performed By: #### C BC #### [facility] [address] [place] [address] Dr. Alexis Brink MCHC (RBC) [Mass/Vol] 33.8 g/dL Normal 29.9-35.2 [facility] Comment on above: Performed By: #### C BC #### [facility] [address] [place] [address] Dr. Alexis Brink MCV (RBC) [Entitic vol] 92.9 fL Normal 80.0-94.0 [facility] Comment on above: Performed By: #### C BC #### [facility] [address] [place] [address] Dr. Alexis Brink MONO # 0.7 103/ul Normal 0.3-0.8 [facility] Comment on above: Performed By: #### C BC #### [facility] [address] [place] [address] Dr. Alexis Brink Monocytes/100 WBC (Bld) 9.6 % Normal 1.7-12.0 [facility] Comment on above: Performed By: #### C BC #### [facility] [address] [place] [address] Dr. Alexis Brink NEUT # 4.6 103/ul Normal 1.4-6.5 [facility] Comment on above: Performed By: #### C BC #### [facility] [address] [place] [address] Dr. Alexis Brink Neutrophils/100 WBC (Bld) 64.5 % Normal 43.0-75.0 [facility] Comment on above: Performed By: #### C BC #### [facility] [address] [place] [address] Dr. Alexis Brink Platelet mean volume (Bld) [Entitic vol] 10.7 fL Normal 9.5-13.5 [facility] Comment on above: Performed By: #### C BC #### [facility] [address] [address] [address] Alexis Brink PLT 130 103/ul Critically low 150-450 [facility] Comment on above: Performed By: #### C BC #### [facility] [address] [address] [address] Alexis Brink RBC 4.90 106/ul Normal 4.70-6.10 [facility] Comment on above: Performed By: #### C BC #### [facility] [address] [address] [address] Alexis Brink WBC 7.1 103/ul Normal 4.0-11.0 [facility] Comment on above: Performed By: #### C BC #### [facility] [address] [address] [address] Alexis Brink DIRECT LDLon 02-09-2022 Cholesterol in LDL [Mass/Vol] 144 mg/dL Normal [facility] Comment on above: Performed By: #### D LDL, BMP ####[facility] [id number] [place] [address]Dr. Alexis Brink DLDL NORMAL SEE BELOW Normal [facility] Comment on above: Result Comment: <100 mg/dl OPTIMAL 100 - 129 mg/dl NEAR OR ABOVE OPTIMAL 130 - 159 mg/dl BORDERLINE HIGH 160 - 189 mg/dl HIGH >190 mg/dl VERY HIGH Performed By: #### D LDL, BMP ####[facility] [id number] [place] [id number]. Alexis Brink PROF CHEM 8 (BAS METB)on Anion gap [Moles/Vol] 9.3 mmol/L Normal [facility] Comment on above: Performed By: #### D LDL, BMP #### [facility] [id number] Alexis Brink Calcium [Mass/Vol] 8.7 mg/dL Normal 8.5-10.1 [facility] Comment on above: Performed By: #### D LDL, BMP #### [facility] [address] [address] [address] Alexis Brink Chloride [Moles/Vol] 103 mmol/L Normal 98-107 [facility] Comment on above: Performed By: #### D LDL, BMP #### [facility] [address] [address] [address] Alexis Brink CO2 [Moles/Vol] 32.1 mmol/L Critically high 21.0-32.0 [facility] Comment on above: Performed By: #### D LDL, BMP #### [facility] [address] [address] [address] Alexis Brink Creatinine [Mass/Vol] 1.35 mg/dL Critically high 0.70-1.30 [facility] Comment on above: Performed By: #### D LDL, BMP #### [facility] [address] [address] [address] Alexis Brink EGFR-AF AZERBAIJANI >60 Normal >=60 [facility] Comment on above: Performed By: #### D LDL, BMP #### [facility] [address] [address] [address] Alexis Brink EGFR-NON AF AZERBAIJANI 51 mL/min/1.73m2 Critically low >=60 [facility] Comment on above: Performed By: #### D LDL, BMP #### [facility] [address] [address] [address] Alexis Brink Glucose [Mass/Vol] 90 mg/dL Normal 74-106 [facility] Comment on above: Performed By: #### D LDL, BMP #### [facility] [address] [address] [address] Alexis Brink Potassium [Moles/Vol] 4.4 mmol/L Normal 3.5-5.1 [facility] Comment on above: Performed By: #### D LDL, BMP #### [facility] [address] [address] [address] Alexis Brink Sodium [Moles/Vol] 140 mmol/L Normal 136-145 [facility] Comment on above: Performed By: #### D LDL, BMP #### [facility] [address] [address] [address] Alexis Brink Urea nitrogen [Mass/Vol] 16.0 mg/dL Normal 7.0-18.0 [facility] Comment on above: Performed By: #### D LDL, BMP #### [facility] [address] [address] [address] Alexis Brink Urea nitrogen/Creatinin e [Mass ratio] 11.9 mg/mg Normal [facility] Comment on above: Performed By: #### D LDL, BMP #### [facility] [address] [address] [address] Alexis Brink UA RANDOMon 02-09-2022 Bilirubin Ql (U) Negative Normal NEGATIVE [facility] Comment on above: Performed By: #### U A #### [facility] [address] [place] [address] Dr. Alexis Brink Clarity (U) CLEAR Normal CLEAR [facility] Comment on above: Performed By: #### U A #### [facility] [address] [place] [address] Dr. Alexis Brink Color (U) YELLOW Normal YELLOW [facility] Comment on above: Performed By: #### U A #### [facility] [address] [place] [address] Dr. Alexis Brink Glucose Ql (U) Negative Normal NEGATIVE [facility] Comment on above: Performed By: #### U A #### [facility] [address] [place] [address] Dr. Alexis Brink Hemoglobin Ql (U) Negative Normal NEGATIVE [facility] Comment on above: Performed By: #### U A #### [facility] [address] [address] [address] Alexis Brink Ketones Ql (U) Negative Normal NEGATIVE [facility] Comment on above: Performed By: #### U A #### [facility] [address] [place] [address] Dr. Alexis Brink LEUKOCYTES Negative Normal NEGATIVE [facility] Comment on above: Performed By: #### U A #### [facility] [address] [place] [address] Dr. Alexis Brink Nitrite Ql (U) Negative Normal NEGATIVE [facility] Comment on above: Performed By: #### U A #### [facility] [address] [address] [address] Alexis Brink pH (U) 7.0 [pH] Normal 5-9 [facility] Comment on above: Performed By: #### U A #### [facility] [id number] Alexis Brink SPEC GRAVITY 1.015 Normal 1.005-<=1.025 [facility] Comment on above: Performed By: #### U A #### [facility] [address] [address] [address] Alexis Brink UA PROTEIN Negative Normal NEGATIVE/ TRACE [facility] Comment on above: Performed By: #### U A #### [facility] [address] [address] [address] Alexis Brink Urobilinogen Qn (U) 1.0 {Kay'U}/dL Normal 0.2 - 1.0 [facility] Comment on above: Performed By: #### U A #### [facility] [address] [address] [address] Alexis Brink XR CHEST 2 Von [...] by: LYDIA HAWLEY Date: 2021-12-06 15:42 Normal [facility] Nonvisit Note - PTon 018 Nonvisit Note - PT Cert letter refaxed for signature this date - third and final attempt. Normal [facility] Nonvisit Note - PTon 018 Nonvisit Note - PT Cert letter refaxed to Dr Gooden's office. Second attempt. Normal [facility] Coding Summary.on 01-25-2018 Coding Summary. CODING DATE: 01/25/2018 [facility] STATUS: PAYOR: Medicare ADMIT DX: REASON [...] [place] Date Saved: 01/25/2018 10:54 am Normal [facility] Coding Summary. CODING DATE: 01/25/2018 [facility] STATUS: PAYOR: Medicare ADMIT DX: REASON [...] [place] Date Saved: 01/25/2018 10:54 am Normal [facility] SURGICAL PATHOLOGYon 05-15-2 018 SURGICAL PATHOLOGY [facility]: [id number] Physician: BETH GOODEN MD FINAL DIAGNOSISRight hip, [...] to 8.5 x 8.5 x 1.8 cm. Tank Erector sectionsare submitted as follows: A1 soft tissue, A2 bone submitted afterdecalcification.B F/lachelle 01/01/2018 Gross examination performed at [facility], [address] [place], [place] [id number] of Report: 01/07/2018Date of Procedure: 01/01/2018Date of Receipt: 01/01/2018Submitted by: BETH GOODEN MDLocation: [id number] interpretation performed at [place] [id number]. Normal [facility] Comment on above: Performed By: #### S ####See report for performing lab information. Vital Signs Date Time Vital Sign Value Performing Clinician Facility 11-06-2024 09:040 Body height 167.64 cm [facility] 11-06-2024 09:0400 Body mass index (BMI) [Ratio] 28.9 kg/m2 [facility] 11-06-2024 09:040 Body weight 81.36 kg [facility] 11-06-2024 09:020400 Diastolic blood pressure 67 mm[Hg] [facility] 11-06-2024 09:02-0400 Heart rate 82 /min [facility] 11-06-2024 09:020400 Respiratory rate 24 /min [facility] 11-06-2024 09:02-0400 SaO2% (BldA) [Mass fraction] 98 % [facility] 11-06-2024 09:02-0400 Systolic blood pressure 130 mm[Hg] [facility] 10-01-2024 08:35-0500 Body height 167.64 cm [facility] 10-01-2024 08:35-0500 Body mass index (BMI) [Ratio] 28.5 kg/m2 [facility] 10-01-2024 08:35-0500 Body weight 80.34 kg [facility] 10-01-2024 08:35-0500 Diastolic blood pressure 74 mm[Hg] [facility] 10-01-2024 08:35-0500 Heart rate 67 /min [facility] 10-01-2024 08:35-0500 Respiratory rate 16 /min [facility] 10-01-2024 08:35-0500 Systolic blood pressure 155 mm[Hg] [facility] 05-28-2024 08:30-0400 Body height 167.64 cm [facility] 05-28-2024 08:30-0400 Body mass index (BMI) [Ratio] 27.1 kg/m2 [facility] 05-28-2024 08:30-0400 Body weight 76.31 kg [facility] 05-28-2024 08:30-0400 Diastolic blood pressure 89 mm[Hg] [facility] 05-28-2024 08:30-0400 Heart rate 61 /min [facility] 05-28-2024 08:30-0400 Respiratory rate 12 /min [facility] 05-28-2024 08:30-0400 Systolic blood pressure 139 mm[Hg] [facility] 01-22-2024 09:16-0400 Body height 167.64 cm [facility] 01-22-2024 09:16-0400 Body mass index (BMI) [Ratio] 29.3 kg/m2 [facility] 01-22-2024 09:16-0400 Body weight 82.55 kg [facility] 01-22-2024 09:16-0400 Diastolic blood pressure 72 mm[Hg] [facility] 01-22-2024 09:16-0400 Heart rate 64 /min [facility] 01-22-2024 09:16-0400 Respiratory rate 20 /min [facility] 01-22-2024 09:16-0400 Systolic blood pressure 131 mm[Hg] [facility] 09-28-2023 11:00-0500 Body height 167.64 cm Cecilio Ball Other [facility] Other 09-28-2023 11:00-0500 Body mass index (BMI) [Ratio] 30.24 kg/m2 Cecilio Ball Other [facility] Other 09-28-2023 11:00-0500 Body weight 85 kg Cecilio Ball Other [facility] Other 09-28-2023 11:00-0500 Respiratory rate 20 /min Cecilio Ball Other [facility] Other 09-28-2023 11:00-0500 SaO2% (BldA) [Mass fraction] 97 % Cecilio Ball Other [facility] Other 09-11-2023 10:45-0500 Body height 167.64 cm Cecilio Ball Other [facility] Other 09-11-2023 10:45-0500 Body mass index (BMI) [Ratio] 29.86 kg/m2 Cecilio Ball Other [facility] Other 09-11-2023 10:45-0500 Body temperature 97.5 [degF] Cecilio Ball Other [facility] Other 09-11-2023 10:45-0500 Body weight 83.92 kg Cecilio Ball Other [facility] Other 09-11-2023 10:45-0500 Diastolic blood pressure 81 mm[Hg] Cecilio Ball Other [facility] Other 09-11-2023 10:45-0500 Respiratory rate 20 /min Cecilio Ball Other [facility] Other 09-11-2023 10:45-0500 SaO2% (BldA) [Mass fraction] 98 % Cecilio Ball Other [facility] Other 09-11-2023 10:45-0500 Systolic blood pressure 161 mm[Hg] Cecilio Ball Other [facility] Other 08-01-2023 10:15-0500 Body height 167.64 cm Cecilio Ball Other [facility] Other 08-01-2023 10:15-0500 Body mass index (BMI) [Ratio] 29.86 kg/m2 Cecilio Ball Other [facility] Other 08-01-2023 10:15-0500 Body weight 83.92 kg Cecilio Ball Other [facility] Other 08-01-2023 10:15-0500 Diastolic blood pressure 79 mm[Hg] Cecilio Ball Other [facility] Other 08-01-2023 10:15-0500 Respiratory rate 20 /min Cecilio Ball Other [facility] Other 08-01-2023 10:15-0500 Systolic blood pressure 172 mm[Hg] Cecilio Ball Other [facility] Other 07-17-2023 10:15-0500 Body height 167.64 cm Cecilio Ball Other [facility] Other 07-17-2023 10:15-0500 Body mass index (BMI) [Ratio] 29.89 kg/m2 Cecilio Ball Other [facility] Other 07-17-2023 10:15-0500 Body weight 84.01 kg Cecilio Ball Other [facility] Other 07-17-2023 10:15-0500 Diastolic blood pressure 78 mm[Hg] Cecilio Ball Other [facility] Other 07-17-2023 10:15-0500 Respiratory rate 20 /min Cecilio Ball Other [facility] Other 07-17-2023 10:15-0500 Systolic blood pressure 172 mm[Hg] Cecilio Ball Other [facility] Other 07-10-2023 14:45-0500 Body height 167.64 cm Cecilio Ball Other [facility] Other 07-10-2023 14:45-0500 Body mass index (BMI) [Ratio] 29.47 kg/m2 Cecilio Ball Other [facility] Other 07-10-2023 14:45-0500 Body weight 82.83 kg Cecilio Ball Other [facility] Other 07-10-2023 14:45-0500 Diastolic blood pressure 80 mm[Hg] Cecilio Ball Other [facility] Other 07-10-2023 14:45-0500 Respiratory rate 20 /min Cecilio Ball Other [facility] Other 07-10-2023 14:45-0500 Systolic blood pressure 150 mm[Hg] Cecilio Ball Other [facility] Other 06-20-2023 08:30-0400 Body height 167.64 cm Cecilio Ball Other [facility] Other 06-20-2023 08:30-0400 Body mass index (BMI) [Ratio] 29.6 kg/m2 Cecilio Ball Other [facility] Other 06-20-2023 08:30-0400 Body weight 83.19 kg Cecilio Ball Other [facility] Other 06-20-2023 08:30-0400 Diastolic blood pressure 76 mm[Hg] Cecilio Ball Other [facility] Other 06-20-2023 08:30-0400 Respiratory rate 20 /min Cecilio Ball Other [facility] Other 06-20-2023 08:30-0400 Systolic blood pressure 157 mm[Hg] Cecilio Ball Other [facility] Other 05-30-2023 13:45-0400 Body height 167.64 cm Cecilio Ball Other [facility] Other 05-30-2023 13:45-0400 Body mass index (BMI) [Ratio] 28.95 kg/m2 Cecilio Ball Other [facility] Other 05-30-2023 13:45-0400 Body weight 81.38 kg Cecilio Ball Other [facility] Other 05-30-2023 13:45-0400 Diastolic blood pressure 78 mm[Hg] Cecilio Ball Other [facility] Other 05-30-2023 13:45-0400 Respiratory rate 16 /min Cecilio Ball Other [facility] Other 05-30-2023 13:45-0400 Systolic blood pressure 158 mm[Hg] Cecilio Ball Other [facility] Other 02-14-2023 08:30-0400 Body height 167.64 cm Cecilio Ball Other [facility] Other 02-14-2023 08:30-0400 Body mass index (BMI) [Ratio] 28.57 kg/m2 Cecilio Ball Other [facility] Other 02-14-2023 08:30-0400 Body weight 80.29 kg Cecilio Ball Other [facility] Other 02-14-2023 08:30-0400 Diastolic blood pressure 80 mm[Hg] Cecilio Ball Other [facility] Other 02-14-2023 08:30-0400 Respiratory rate 16 /min Cecilio Ball Other [facility] Other 02-14-2023 08:30-0400 Systolic blood pressure 135 mm[Hg] Cecilio Ball Other [facility] Other 02-01-2023 08:15-0400 Body height 167.64 cm Jose Enrique Taliaferro II Other [facility] Other 02-01-2023 08:15-0400 Body mass index (BMI) [Ratio] 27.44 kg/m2 Jose Enrique Benji II Other [facility] Other 02-01-2023 08:15-0400 Body weight 77.11 kg Jose Enrique Taliaferro II Other [facility] Other 12-11-2022 10:30-0400 Body height 167.64 cm Cecilio Ball Other [facility] Other 12-11-2022 10:30-0400 Body mass index (BMI) [Ratio] 28.66 kg/m2 Cecilio Ball Other [facility] Other 12-11-2022 10:30-0400 Body weight 80.56 kg Cecilio Ball Other [facility] Other 12-11-2022 10:30-0400 Diastolic blood pressure 76 mm[Hg] Cecilio Ball Other [facility] Other 12-11-2022 10:30-0400 Respiratory rate 12 /min Cecilio Ball Other [facility] Other 12-11-2022 10:30-0400 Systolic blood pressure 151 mm[Hg] Cecilio Ball Other [facility] Other 11-09-2022 16:00-0400 Body mass index (BMI) [Ratio] 29.21 kg/m2 Jose Enrique Taliaferro II Other [facility] Other 11-09-2022 16:00-0400 Body weight 82.1 kg Jose Enrique Taliaferro II Other [facility] Other 11-09-2022 10:30-0400 Body height 167.64 cm Cecilio Ball Other [facility] Other 11-09-2022 10:30-0400 Body mass index (BMI) [Ratio] 29.23 kg/m2 Cecilio Ball Other [facility] Other 11-09-2022 10:30-0400 Body weight 82.15 kg Cecilio Ball Other [facility] Other 11-09-2022 10:30-0400 Diastolic blood pressure 79 mm[Hg] Cecilio Ball Other [facility] Other 11-09-2022 10:30-0400 Respiratory rate 20 /min Cecilio Ball Other [facility] Other 11-09-2022 10:30-0400 Systolic blood pressure 152 mm[Hg] Cecilio Ball Other [facility] Other 10-12-2022 10:00-0500 Body height 167.64 cm Cecilio Ball Other [facility] Other 10-12-2022 10:00-0500 Body mass index (BMI) [Ratio] 29.24 kg/m2 Cecilio Ball Other [facility] Other 10-12-2022 10:00-0500 Body weight 82.19 kg Cecilio Ball Other [facility] Other 10-12-2022 10:00-0500 Diastolic blood pressure 70 mm[Hg] Cecilio Ball Other [facility] Other 10-12-2022 10:00-0500 Respiratory rate 12 /min Cecilio Ball Other [facility] Other 10-12-2022 10:00-0500 Systolic blood pressure 102 mm[Hg] Cecilio Ball Other [facility] Other Encounters Encounter Date Encounter Type Care Provider Facility Start: 11-17-2024 End: 11-17-2024 ambulatory Maddie Villalobos MD Facility:[facility] Start: 11-06-2024 End: 11-06-2024 ambulatory [facility] Work Phone: Start: 11-06-2024 End: 11-06-2024 Patient encounter procedure [facility] Work Phone: Start: 10-01-2024 End: 10-01-2024 ambulatory [facility] Work Phone: Start: 10-01-2024 End: 10-01-2024 Patient encounter procedure [facility] Work Phone: Start: 08-18-2024 End: 08-18-2024 ambulatory Andrius Antonellaautas Gaetanoitis Facility:[facility] Start: 08-04-2024 End: 08-04-2024 ambulatory Andrius Antonellaautherlinda Salteritis Facility:[facility] Start: 07-14-2024 End: 07-14-2024 ambulatory Andbeto Bermanautas Gaetanoitis Facility:[facility] Start: 05-28-2024 End: 05-28-2024 ambulatory [facility] Work Phone: Start: 05-28-2024 End: 05-28-2024 Patient encounter procedure [facility] Work Phone: Start: 05-26-2024 End: 05-26-2024 ambulatory Andrius Kipytautas Gaetanoitis Facility:[facility] Start: 04-07-2024 End: 04-07-2024 ambulatory Andrius Kipytautas Gaetanoitis Facility:[facility] Start: 03-31-2024 End: 03-31-2024 ambulatory Andrius Kipytautas Gaetanoitis Facility:[facility] Start: 03-24-2024 End: 03-24-2024 ambulatory Andrius Kipytautas Gaetanoitis Facility:[facility] Start: 03-10-2024 End: 03-10-2024 ambulatory Andrius Kipytautas Gaetanoitis Facility:[facility] Start: 02-25-2024 End: 02-25-2024 ambulatory Maddie Villalobos MD Facility:[facility] Start: 02-11-2024 End: 02-11-2024 ambulatory Maddie Villalobos MD Facility:[facility] Start: 01-28-2024 End: 01-28-2024 ambulatory Maddie Villalobos MD Facility: [facility] Start: 01-22-2024 End: 01-22-2024 ambulatory [facility] Work Phone: Start: 01-22-2024 End: 01-22-2024 Patient encounter procedure [facility] Work Phone: Start: 10-30-2023 Non-patient / Non-visit [facility] Work Phone: Start: 09-28-2023 End: 09-28-2023 ambulatory Cecilio Ball Other [facility] Other Start: 09-28-2023 Office outpatient vi sit 15 minutes Cecilio Ball [facility] Start: 09-28-2023 Telephone encounter Cecilio Ball [facility] Start: 09-21-2023 End: 09-21-2023 ambulatory Cecilio Ball Other [facility] Other Start: 09-21-2023 Telephone encounter Cecilio Ball [facility] Start: 09-11-2023 End: 09-11-2023 ambulatory Cecilio Ball Other [facility] Other Start: 09-11-2023 Office outpatient vi sit 15 minutes Cecilio Ball [facility] Start: 09-11-2023 Telephone encounter Cecilio Ball [facility] Start: 09-03-2023 End: 09-03-2023 ambulatory Cecilio Ball Other [employer] [facility] Other Start: 09-03-2023 Telephone encounter Cecilio Ball [facility] Start: 08-03-2023 End: 08-03-2023 ambulatory Cecilio Ball Other [employer] [facility] Other Start: 08-03-2023 Telephone encounter Cecilio Benjamin [facility] Start: 08-01-2023 End: 08-01-2023 ambulatory Cecilio Ball Other [employer] [facility] Other Start: 08-01-2023 Office outpatient vi sit 15 minutes Cecilio Ball [facility] Start: 07-17-2023 End: 07-17-2023 ambulatory Cecilio Ball Other [employer] [facility] Other Start: 07-17-2023 Office outpatient vi sit 15 minutes Cecilio Ball [facility] Start: 07-10-2023 End: 07-10-2023 ambulatory Cecilio Ball Other [employer] [facility] Other Start: 07-10-2023 Office outpatient vi sit 15 minutes Cecilio Ball [facility] Start: 06-20-2023 End: 06-20-2023 ambulatory Cecilio Sourav Other [employer] [facility] Other Start: 06-20-2023 Office outpatient vi sit 25 minutes Cecilio Ball [facility] Start: 06-15-2023 End: 06-15-2023 ambulatory Cecilio Sourav Other [employer] [facility] Other Start: 06-15-2023 Telephone encounter Cecilio Benjamin [facility] Start: 05-30-2023 End: 05-30-2023 ambulatory Cecilio Ball Other [employer] [facility] Other Start: 05-30-2023 Office outpatient vi sit 15 minutes Cecilio Ball [facility] Start: 03-20-2023 Telephone encounter David Jaeger DO Work Phone: [facility] Comment on above: Follow Up Phone Call Start: 03-15-2023 End: 03-15-2023 ambulatory DAVID JAEGER Facility:[facility] Start: 02-27-2023 Orders Only David Marcos DO Work Phone: Procedures Comment on above: Pseudoclaudication s yndrome (Primary Dx); Lumbar radiculopathy Start: 02-26-2023 Telephone encounter David Jaeger DO Work Phone: [facility] Comment on above: Procedure Start: 02-19-2023 Telephone encounter David Jaeger DO Work Phone: [facility] Comment on above: Appointment Start: 02-14-2023 End: 02-14-2023 ambulatory Cecilio Benjamin Other [employer] [facility] Other Start: 02-14-2023 Patient encounter procedure Cecilio Benjamin [facility] Start: 02-13-2023 End: 02-13-2023 ambulatory Cecilio Benjamin Other [employer] [facility] Other Start: 02-13-2023 Telephone encounter Cecilio Benjamin [facility] Start: 02-08-2023 End: 02-08-2023 ambulatory Cecilio Benjamin Other [employer] Other Start: 02-08-2023 Telephone encounter Cecilio Benjamin [facility] Start: 02-01-2023 End: 02-01-2023 ambulatory Jose Enrique Leblanc II Other [employer] Other Start: 02-01-2023 Office outpatient vi sit 25 minutes Jose Enrique Leblanc II [facility] Start: 12-11-2022 End: 12-11-2022 ambulatory Cecilio Benjamin Other [employer] [facility] Other Start: 12-11-2022 Office outpatient vi sit 15 minutes Cecilio Benjamin [facility] Start: 11-09-2022 End: 11-09-2022 ambulatory Jose Enrique Leblanc II Facility:[facility] Start: 11-09-2022 End: 11-09-2022 Patient encounter procedure MD Jose Enrique Leblanc II Work Phone: [facility] Start: 11-09-2022 End: 11-09-2022 ambulatory MD Jose Enrique Leblanc II Work Phone: [facility] Work Phone: Start: 11-09-2022 Office outpatient ne w 45 minutes Jose Enrique Leblanc II [facility] Start: 11-09-2022 Office outpatient vi sit 15 minutes Cecilio Benjamin [facility] Start: 11-05-2022 End: 11-05-[address] CECILIO BENJAMIN Facility:[facility] Start: 10-12-2022 End: 10-12-2022 ambulatory Cecilio Benjamin Other [employer] [facility] Other Start: 10-12-2022 Office outpatient vi sit 25 minutes Cecilio Bejnamin [facility] Start: 09-27-2022 End: 09-27-2022 ambulatory Cecilio Benjamin Other [employer] [facility] Other Start: 09-27-2022 Telephone encounter Cecilio DENISE [facility] Start: 09-26-2022 End: 09-27-[address] CECILIO BENJAMIN Facility:[facility] Start: 08-25-2022 End: 08-25-2022 ambulatory Cecilio Benjamin Other [employer] [facility] Other Start: 08-25-2022 Telephone encounter Cecilio DENISE [facility] Start: 08-10-2022 End: 08-10-[address] CECILIO BENJAMIN Facility:[facility] Start: 02-09-2022 End: 02-10-[address] CECILIO BENJAMIN Facility:[facility] Start: 12-06-2021 End: 12-07-[address] CECILIO BENJAMIN Facility:[facility] Start: 01-22-2018 End: 04-20-2018 Patient encounter [id number] AUGUSTINE BENJAMIN Facility[facility] Procedures Date Procedure Procedure Detail Performing Clinician Start: 11-09-2022 Pelvis X-ray MD Jose Enrique Leblanc II Work Phone: Start: 11-09-2022 Radiologic examinati on of knee MD Jose Enrique Leblanc II Work Phone: Plan of Treatment Date Care Activity Detail Author Start: 01-22-2024 Patient referral [facility] Work Phone: Start: 04-20-2023 Influenza vaccination INFLUENZA (#1) [facility] Start: 10-01-2022 COVID-19 VACCINE (5 - Moderna series) COVID-19 VACCINE (5 - Moderna series) [facility] Start: 08-20-2022 ADVANCE DIRECTIVE DISCUSSION ADVANCE DIRECTIVE DISCUSSION [facility] Start: 08-20-2022 DEPRESSION ASSESSMENT DEPRESSION ASS ESSMENT [facility] Start: 09-19-2021 COVID-19 VACCINE (4 - Booster for Moderna series) COVID-19 VACCINE (4 - Booster for Moderna series) [facility] Start: 09-19-2021 COVID-19 VACCINE (4 - Moderna series) COVID-19 VACCINE (4 - Moderna series) [facility] Start: 01-02-2021 DIABETES SCREEN DIABETES SCREEN [facility] Start: 1991 SHINGRIX VACCINE (1 of 2) SHINGRIX VACCINE (1 of 2) [facility] Start: 1960 Urine microalbumin profile DTAP,TDAP,TD (1 - Tdap) [facility] Start: 1959 SPIROMETRY SPIROMETRY [facility] Start: 1947 PNEUMOCOCCAL: 65+ (1 - PCV) PNEUMOCOCCAL: 65+ (1 - PCV) [facility] Comprehensive metabo lic 2000 panel - Serum or Plasma [facility] Patient referral [facility] Work Phone: SPINE INTERVENTION PROCEDURE SPINE INTERVENTION PROCEDURE Procedures Routine Spinal stenosis, lumbar region with neurogenic claudication Lumbar radiculopathy, chronic Ordered: 02/19/2023 [facility] Work Phone: Comment on above: Ordered: 02/19/2023 [facility] Immunizations Immunization Date Immunization Notes Care Provider Coleman bermudez 05-28-2024 influenza, high dose seasonal, preservative-free [facility] 05-30-2023 COVID-19 Vaccine Moderna - Documentation Purposes Only Cecilio Benjamin Other [facility] 05-30-2023 influenza virus vaccine, unspecified formulation [facility] 05-30-2023 influenza, high dose seasonal, preservative-free Cecilio Benjamin Other [place] [facility] Other 06-13-2022 influenza virus vaccine, split virus (incl. purified surface antigen) Cecilio Benjamin Other [employer] [facility] Other 06-13-2022 influenza virus vaccine, unspecified formulation [facility] 06-13-2022 influenza, high dose seasonal, preservative-free Jose Enrique Taliaferro II Other [facility] Other 05-31-2022 COVID-19 Pfizer (bivalent) Jose Enrique Taliaferro II Other [facility] 05-31-2022 COVID-19 Pfizer (Pediatric) Cecilio Benjamin Other [facility] 07-25-2021 COVID-19 Vaccine Moderna - Documentation Purposes Only Jose Enrique Taliaferro II Other [facility] 05-03-2021 zoster vaccine recombinant Jose Enrique Taliaferro II Other [facility] 05-03-2021 zoster vaccine, live Benjami n Ball Other [facility] 01-28-2021 zoster vaccine recombinant Jose Enrique Taliaferro II Other [facility] 01-28-2021 zoster vaccine, live Benjami n Ball Other [facility] 10-25-2020 COVID-19 Vaccine Moderna - Documentation Purposes Only Jose Enrique Taliaferro II Other [facility] 09-27-2020 COVID-19 Vaccine Moderna - Documentation Purposes Only Jose Enrique Benji II Other [facility] 05-24-2020 influenza virus vaccine, split virus (incl. purified surface antigen) Cecilio Benjamin Other [facility] Other 05-24-2020 influenza virus vaccine, unspecified formulation [facility] 01-03-2019 diphtheria, tetanus toxoids and acellular pertussis vaccine, unspecified formulation Cecilio Benjamin Other [facility] 12-25-2018 pneumococcal polysaccharide vaccine, 23 valent Jose Enrique Taliaferro II Other [facility] 04-30-2018 influenza virus vaccine, split virus (incl. purified surface antigen) Cecilio Benjamin Other [facility] Other 04-30-2018 influenza virus vaccine, unspecified formulation [facility] 04-09-2017 influenza virus vaccine, split virus (incl. purified surface antigen) Cecilio Benjamin Other [facility] Other 04-09-2017 influenza virus vaccine, unspecified formulation [facility] 05-31-2016 zoster vaccine, live Jose Enrique Taliaferro II Other [facility] 05-13-2016 influenza virus vaccine, split virus (incl. purified surface antigen) Cecilio Benjamin Other [facility] Other 05-13-2016 influenza virus vaccine, unspecified formulation [facility] 05-09-2015 influenza virus vaccine, split virus (incl. purified surface antigen) Cecilio Benjamin Other [facility] Other 05-09-2015 influenza virus vaccine, unspecified formulation [facility] 03-06-2015 pneumococcal conjuga te vaccine, 13 valent Jose Enrique Taliaferro II Other [facility] 05-07-2014 tetanus and diphther ia toxoids, adsorbed, preservative free, for adult use (5 Lf of tetanus toxoid and 2 Lf of diphtheria toxoid) Cecilio Benjamin Other [facility] 04-23-2013 tetanus and diphther ia toxoids, adsorbed, preservative free, for adult use (5 Lf of tetanus toxoid and 2 Lf of diphtheria toxoid) Cecilio Benjamin Other [facility] 08-21-2012 pneumococcal polysaccharide vaccine, 23 valent Cecilio Benjamin Other [facility] 12-12-2011 zoster vaccine, live Jose Enrique Leblanc II Other [facility] Payers Date Payer Category Payer Self-pay 2022 Unknown [id number] 2018 Medicare [id number] 2006 Medicare [id number] 2006 Unknown [id number] 1959 Medicare [id number] 2.1 [id number] 1959 Unknown [id number] 2.16. 840.1.544610.19 1941 Unknown [id number] 2.16.84 0.1.739234.3.579.2.593 1941 Unknown [id number] 2.16.84 0.1.696034.3.579.2.593 1941 Unknown [id number] 2.16.84 0.1.630497.3.579.2.593 1941 Unknown [id number] 2.16.84 0.1.369513.3.579.2.593 1941 Unknown [id number] 2.16.84 0.1.868134.3.579.2.593 1941 Unknown [id number] 2.16. 840.1.021381.3.579.2.196 1941 Unknown [id number] 2.16. 840.1.021080.3.579.2.196 1941 Unknown [id number] 2.16. 840.1.595121.3.579.2.196 1941 Unknown [id number] 2.16. 840.1.237455.3.579.2.196 1941 Unknown [id number] 2.16. 840.1.217675.3.579.2.196 1941 Unknown [id number] 2.16. 840.1.770081.3.579.2.196 1941 Unknown [id number] 2.16. 840.1.614573.3.579.2.196 1941 Unknown [id number] 2.16. 840.1.203109.3.579.2.196 1941 Unknown [id number] 2.16. 840.1.430047.3.579.2.196 1941 Unknown [id number] 2.16. 840.1.888865.3.579.2.196 1941 Unknown [id number] 2.16. 840.1.993419.3.579.2.196 1941 Unknown [id number] 2.16. 840.1.571249.3.579.2.196 Unknown [id number] 2.16.8 40.1.134084.3.579.2.531 Social History Date Type Detail Facility Start: 05-09-2021 End: 03-15-2023 Sex Assigned At [facility] Start: 1940 Sex Assigned At Male F [facility] Start: 06-13-2017 End: 01-22-2024 Tobacco smoking status IAIS Never smoked tobacco [facility] Start: 06-13-2017 Tobacco use and exposure Smokeless tobacco non-user [facility] Start: 05-09-2021 Alcohol intake Current drinke r of alcohol (finding) [facility] Start: 12-11-2017 Alcohol Comment [facility] Start: 1940 Sex Assigned At [facility] Start: 05-09-2021 End: 03-15-2023 History of Social function [facility] Adult Depression Screening Assessment 1 [facility] Start: 10-01-2024 End: 11-06-2024 Sex Male (finding) [facility] Medical Equipment Procedure Code Equipment Code Equipment Origin al Text Equipment Identifier Dates [place] Swivelock Tenodesis 8mm Biocomposite 19.5mm Suture [place] Eyelet - [id number] Start: 06-29-2017 Sleeve V40 +0mm Offset Paradise Taper Titanium Adapter Hip - [id number] Start: 01-01-2018 Screw Trident Secur-Fit Torx 6.5mm Titanium 20mm Bone Sterile Acetabular - [id number] Start: 01-01-2018 Clinical Notes 08-25-2022 to 10-01-2024 Note Date & Type Note Facility 10-01-2024 Evaluation note Diagnosis Onset Date Resolution Chronic bronchitis, simple acute October 01, 025 8:30am Chronic kidney disease, stage 3a acute October 01 025 8:30am Generalized anxiety disorder acute October 01 8:30am Hypertension acute September 8:30am IFG (impaired fasting glucose) acute October 01 8:30am Lumbar spondylolysis acute 2024 8:30am Obstructive sleep apnea acute F 2024 8:30am Chronic obstructive pulmonary disease with (acute) lower respiratory infection noneactive October 8:56am Acute exacerbation of chronic obstructive airways disease noneactive November 06, 2024 8:56am [facility] Work Phone: [phone]) 514-623602-12-2025 Evaluation note* Diagnosis Onset Date Resolution Status Admit Date Chronic bronchitis, simple acute October 01, 2024 8:30am Chronic kidney disease, stag e 3a acute October 01 8:30am Generalized anxiety disorder acute October 01, 2024 8:30am Hypertension acute September 8:30am IFG (impaired fasting glucose) acute October 01, 2024 8:30am Lumbar spondylolysis acute 2024 8:30am Obstructive sleep apnea acute F 2024 8:30am [facility] Work Phone: [phone]) 579-622406-04-2024 Evaluation note* Diagnosis Onset Date Resolution Status Chronic bronchitis, simple a cute Chronic kidney disease, stage 3a acute Elevated cholesterol acute Generalized anxiety disorder acute Hypertension acute Lumbar spondylolysis acute Obstructive sleep apnea acut e Medicare annual wellness visit, subsequent noneactive [facility] Work Phone: [phone]) 458-202002-09-2024 Evaluation note* Encounter Date Diagnosis Assessment Notes [...] and clinically improving, no further treatment necessary [facility] Other 02-02-2024 Evaluation note* Encounter Date Diagnosis Assessment Notes Treatment Notes Treatment Clinical Notes Sep, Carotid bruit, unspecified laterality (ICD-10 - R09.89) [employer] [facility] Other 01-23-2024 Evaluation note* Encounter Date Diagnosis [...] tid Initiate Prednisone _update office on Sunday [facility] Other 01-15-2024 Evaluation note* Encounter Date Diagnosis Assessment Notes Treatment Notes Treatment Clinical Notes Aug, JONATHAN (generalized anxiety disorder) (ICD-10 - F41.1) [employer] [facility] Other 12-13-2023 Evaluation note* Encounter Date Diagnosis [...] best 2/3 readings w/ goal < 135/85 [employer] [facility] Other 11-28-2023 Evaluation note* Encounter Date Diagnosis [...] daily for blisters and ulcerations. Moisturizers daily [employer] [facility] Other 11-21-2023 Evaluation note* Encounter Date Diagnosis [...] Call if develop increased pain or erythema [employer] [facility] Other 11-01-2023 Evaluation note* Encounter Date Diagnosis [...] use, the patient reduces the risk for MA, CVA, HTN, cardiac dysrhythmias and sudden cardiac [...] very active. No change in medical treatment [employer] [facility] Other 10-27-2023 Evaluation note* Encounter Date Diagnosis Assessment Notes Treatment Notes Treatment Clinical Notes May, JONATHAN (generalized anxiety disorder) (ICD-10 - F41.1) [employer] [facility] Other 10-11-2023 Evaluation note* Encounter Date Diagnosis [...] They may safely use Tylenol as needed. [employer] [facility] Other 08-01-2023 Miscellaneous Notes* Telephone Encounter - Neida Porter MA - 03/20/2023 12:26 PM EDT DATE OF SERVICE: 03/15/2023 PATIENT'S PHONE NUMBERS: [phone] (home) OR @[facility]@ PROVIDER: Dr. Jaeger PROCEDURE: Elective Pain Management Procedure Left message on machine Asked pt to call back and speak with the specialty triage nurse with update. Please obtain percentage better and the duration of improvement. Please inquire if there were any problems afterwards. Neida Brink documented in [facility]07-10-2023 Miscellaneous Notes* Telephone Encounter - Linda Knox LPN - 02/26/2023 4:42 PM EDT Spoke to patient in [place] to pre procedure instructions. Pt must have a spike driver. Pt advised to arrive 30 min [...] okay to take. Advised on location of [address] Pt will receive a follow up call several days after by a housekeeping and laundry team leader. If you experience any increase in weakness, difficulty walking or significant increase in pain thatlast more than 4 hours, please proceed to the Emergency Room and tell them you had a spine procedure done recently. Additionally, call us and notify us of these symptoms. Please call [phone] if you have any questions. Pt verbalized understanding. documented in this encounterPremier Health07-03-2023 Miscellaneous Notes* Telephone Encounter - Linda Knox LPN - 02/19/2023 11:57 AM EDT Order approved Spoke to daughter in [facility] to pre procedure instructions. Daughter given scheduling number [phone] Pt must have a spike driver. Pt advised to arrive 30 min prior to the time given by the surgery scheduler. Pt advised will also receive a call the day before from the surgery center to confirm date/time. Pt can eat and drink as normal. and Pt can take medications as normal. No alcohol 24 hours prior. Pt is on ASA.- 81 mg okay to take. and must Advised on location of [address] Pt will receive a follow up call several days after by a housekeeping and laundry team leader. If you experience any increase in weakness, difficulty walking or significant increase in pain thatlast more than 4 hours, please proceed to the Emergency Room and tell them you had a spine procedure done recently. Additionally, call us and notify us of these symptoms. Please call [phone] if you have any questions. Pt verbalized [...] call Celi as patient cannot hear well [phone] Patient has been identified by name and birthdate. Duration of symptoms: N/A Person calling: daughter: Celi Call patient at: N/A [phone] (home) [phone] (cell) Was an appointment scheduled: No Closing statement: Results or non-symptom based questions: Thank you for calling [facility], your call will be returned within the next business day. Camilla Jarrell Pss documented in this encounterPremier Health06-28-2023 Evaluation note* Encounter Date Diagnosis Assessment Notes [...] use, the patient reduces the risk for MA, CVA, HTN, cardiac dysrhythmias and sudden cardiac [...] (ICD-10 - F41.1) Healthy diet, keep active [employer] [facility] Other 06-22-2023 Evaluation note* Encounter Date Diagnosis Assessment Notes Treatment Notes Treatment Clinical Notes Jan, Elevated cholesterol (ICD-10 - E78.00) Jan, Stage 3a chronic kidney disease (ICD-10 - N18.31) Jan, Primary hypertension (ICD-10 - I10) Jan, Screening PSA (prostate specific antigen) (ICD-10 - Z12.5) Jan, High risk medication use (ICD-10 - Z79.899) [employer] [facility] Other 06-15-2023 Evaluation note* Encounter Date Diagnosis [...] this time 6. Follow up as needed [employer] [facility] Other 04-24-2023 Evaluation note* Encounter Date Diagnosis [...] use of statin, experiencing ADR and stopped [employer] [facility] Other 03-23-2023 Evaluation note* Encounter Date Diagnosis [...] - M17.12) Quad exercises, ice/heat and Tylenol [employer] [facility] Other 03-23-2023 Evaluation note* Encounter Date Diagnosis [...] injection well. 6. 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) [employer] [facility] Other 01-06-2023 Evaluation note* Encounter Date Diagnosis Assessment Notes Treatment Notes Treatment Clinical Notes Aug, Carotid bruit, unspecified laterality (ICD-10 - R09.89) [employer] [facility] Other Evaluation noteNo assessment information available [facility] Work Phone: Evaluation [facility]No [facility] Other Evaluation note* Diagnosis Spinal stenosis, lumbar region with neurogenic claudication- Primary Lumbar radiculopathy, chronic Thoracic or lumbosacral neuritis or radiculitis, unspecified [facility] Diagnosis Pseudoclaudication syndrome- Primary Spinal stenosis, lumbar region, with neurogenic claudication Lumbar radiculopathy Thoracic or lumbosacral neuritis or radiculitis, unspecified Pseudoclaudication syndrome Spinal stenosis, lumbar region, with neurogenic claudication Lumbar radiculopathy Thoracic or lumbosacral neuritis or radiculitis, unspecified documented in this encounter [facility]* Diagnosis Onset Date Resolution Status Chronic bronchitis, simple a cute Chronic kidney disease, stage 3a acute Elevated cholesterol acute Generalized anxiety disorder acute Hypertension acute Lumbar spondylolysis acute Obstructive sleep apnea acut e [facility] Work Phone: History general Narrative - [...] JANELLE 06/2017 Hospitalization History see surgical history [employer] [facility] Other Hospital Discharge instructionsAmbulatory Orders* Referral to Pain Management Location: None Selected [facility] Work Phone: Summary Purpose Family History No Family History Records Found Relationship Condition Age at Onset Recorded Date/T niru father Unknown Advance Directives No Advanced Directives Records Found Advance Directive Response Recorded Date/ Time Advance Directives No January 21 4 9:53am Advance Directive Response Recorded Date/ Time [...] September 8:30am Chronic kidney disease, stage 3a ua2024 8:30am Generalized anxiety disorder October 012024 8:30am Hypertension October 01, 2024 8:30am IFG (impaired fasting glucose) October 01, 2024 8:30am Lumbar spondylolysis October 01, 2024 8:30am Obstructive sleep apnea October 01 025 8:30am Chronic obstructive pulmonar y disease with [...] content) DATE CREATED AUTHOR 02/06/2018 [facility] DATE CREATED AUTHOR AUTHOR'S ORGANIZ ATION 06/10/2018 [facility] DATE CREATED AUTHOR AUTHOR'S ORGANIZ ATION 11/06/2022 [facility] DATE CREATED AUTHOR AUTHOR'S ORGANIZ ATION 12/21/2022 [facility] DATE CREATED AUTHOR AUTHOR'S ORGANIZ ATION 03/15/2023 [facility] DATE CREATED AUTHOR AUTHOR'S ORGANIZ ATION 03/22/2023 [facility] DATE CREATED AUTHOR AUTHOR'S ORGANIZ ATION 11/23/2024 [facility] REASON FOR VISIT (unrecogniz ed section and [...] Enrique Leblanc II, MD Attending Provider Active Strategy Manager Relationship Specialty Start Date End Date Cecilio Benjamin DO PCP - General Internal Medicine 09/04/13 Strategy Manager Relationship Specialty Start Date End Date Cecilio Benjamin DO PCP - General Internal Medicine 09/04/13 Strategy Manager Relationship Specialty Start Date End Date Cecilio Benjamin DO PCP - General Internal Medicine 09/04/13 Strategy Manager Relationship Specialty Start Date End Date [...] prosecute any alcohol or drug abuse patient.Premier HealthIn the event this information is protected by the Federal Confidentiality of Alcohol and Drug Abuse Patient Records regulations: The Federal rules restrict any use of the information to criminally investigate or prosecute any alcohol or drug abuse patient.[facility] HealthIn the event this information is protected by the Federal Confidentiality of Alcohol and Drug Abuse Patient Records regulations: The Federal rules restrict any use of the information to criminally investigate or prosecute any alcohol or drug abuse patient.[facility] HealthIn the event this information is protected by the Federal Confidentiality of Alcohol and Drug Abuse Patient Records regulations: The Federal rules restrict any use of the information to criminally investigate or prosecute any alcohol or drug abuse patient.[facility] FOR RECORDS PERTAINING TO PATIENTS WHO ARE [...] BE BASED ON THE PRIMARY CLINICAL RECORDS. [facility] [employer] [facility]. provides no warranty or guarantee of the accuracy or completeness of information in this document.
--- NOTE | 2024-12-03 09:21 | P.CN_ITS ---
Consult Note: HPI Data of Consult Patient: known to practice within the last 3 years Requesting Physician: Erica Hope NP Primary Care Provider: Cecilio Benjamin, DO Consult Narrative Reason for consult: low back, bilateral lower extremity pain Narrative: 84yom who presents for assessment. notes pain from low back into bilateral hips. imaging significant for severe stenosis at l4-5, as well as more moderate multilevel stenosis. very active, engages in >6 weeks of provider directed home exercises. uses tylenol prn. recently underwent repeat bilateral L4/5 TFESI with 70% improvement for a few weeks per pt, he recently went to [place] for a week and walked >55k steps that week. Pain today 4/10 aching in low bck and bilateral legs with standing, walking, activity. pain significant improves with forward flexion and resolves upon sitting. cc:: CC: Erica Hope NP Review of Systems ROS Status of ROS 10 or more systems reviewed and unremark able except as noted in history and below Musculoskeletal Reports: back pain and extremity pain PFSH PFSH Medical History Low back pain ?M54.50 - Low back pain, unspecified (ICD-10) Heartburn ?R12 - Heartburn (ICD-10) Sleep apnea ?G47.30 - Sleep apnea, unspecified (ICD-10) COPD (chronic obstructive pulmonary disease) ?J44.9 - Chronic obstructive pulmonary disease, unspecified (ICD-10) Asthma ?J45.909 - Unspecified asthma, uncomplicated (ICD-10) Hypertension ?I10 - Essential (primary) hypertension (ICD-10) Surgical History H/O cervical spine surgery ?Z98.890 - Other specified postprocedural states (ICD-10) S/P tonsillectomy and adenoidectomy ?Z90.89 - Acquired absence of other organs (ICD-10) History of ankle surgery ?Z98.890 - Other specified postprocedural states (ICD-10) S/P cholecystectomy ?Z90.49 - Acquired absence of other specified parts of digestive tract (ICD- 10) S/P total hip arthroplasty ?Z96.649 - Presence of unspecified artificial hip joint (ICD-10) History of surgery on upper extremity ?Z98.890 - Other specified postprocedural states (ICD-10) Meds Home Medications and Allergies Home Medications ?Medication ?Instructions ?Recorded ?Confirmed ?Type albuterol sulfate 90 mcg/actuation 2 inh inhalation Q8H PRN shortness 01/28/24 11/17/24 History aerosol inhaler (Ventolin HFA) of breath or wheezing amlodipine 2.5 mg tablet 2.5 mg PO DAILY 01/28/24 11/17/24 History clonazepam 0.5 mg tablet 0.5 mg PO DAILY 01/28/24 11/17/24 History escitalopram oxalate 10 mg tablet 10 mg PO DAILY 01/28/24 11/17/24 History (Lexapro) fluticasone propionate 110 1 inh inhalation BID 01/28/24 11/17/24 History mcg/actuation HFA aerosol inhaler nabumetone 500 mg tablet 500 mg PO BID 01/28/24 11/17/24 History omeprazole 20 mg capsule,delayed 20 mg PO DAILY 01/28/24 11/17/24 History release tamsulosin 0.4 mg capsule (Flomax) 0.4 mg PO DAILY 01/28/24 11/17/24 History Allergies Allergy/AdvReac Type Severity Reaction Status Date / Time bacitracin AdvReac Mild Rash Verified 11/17/24 11:07 Exam Narrative Exam Narrative: . Constitutional Documenting provider has reviewed patient's vital signs: yes Common normals: no apparent distress, oriented x3, healthy appearing, alert and well nourished General appearance: cooperative HENWV Common normals: normocephalic, hearing grossly normal bilaterally and moist oral mucous membranes Head and scalp: normocephalic Eye Common normals: PERRL Pupil: PERRL Neck & C-Spine Common normals: full ROM General: normal visual inspection Chest Common normals: inspection of chest normal Respiratory Common normals: normal respiratory effort, no retractions and no use of accessory muscles Back & Pelvis Lumbar spine/lower back: pain with ROM and straight leg raise negative bilaterally; no lumbar spinal tenderness Other: decreases sensation bilateral L4/5 increased pain with standing and walking, improved with forward flexion Neuro Common normals: oriented x3 Sensorium/orientation: alert Motor exam: strength 5/5 throughout and no movement abnormalities noted Psych Common normals: mental status grossly normal, thought process normal, cooperative, affect normal, speech normal and activity/motor behavior normal Speech: normal speech Thought process: normal thought process Assessment and Plan Assessment and Plan (1) Lumbar stenosis with neurogenic claudication: Assessment and Plan: The patient has had over 3 months of moderate to severe low back and BLE pain with functional impairment and inadequate response to conservative care includin g NSAIDS (unless there are contraindication such as concurrent blood thinners), multiple oral or topical pain medications, and home exercise program/physical therapy.? Patient has completed >6 weeks of guided home exercise program and/or formal physical therapy program without relief of their symptoms.? I have reviewed the imaging of the lumbar spine and no red flags were identified.? The imaging reveals radiographic findings consistent with lumbar stenosis The Oswestry Disability Index was completed, and the patient scored a 18%.? The patient noted the following:?? moderate to severe pain with walking Plan update lumbar xray with flexion to assess stability, update lumbar MRI without contrast to assess lumbar stenosis with NC in consideration of L4/5 vertiflex, can consider additional levels if needed. continue HEP as tolerated. defer additional medication management at this time. f/u to review imaging
== END 2024-12-03 08:45 | disposition home or self-care (01) ==
LOC: PM 08:45
PROVIDERS: PCP Internal Medicine; Visit Provider Nurse Practitioner
DX: M48.062 Spinal stenosis, lumbar region with neurogenic claudication (principal)
CPT/HCPCS: G0463

== ENCOUNTER 2024-12-05 10:24 | Emergency (ER) | payer MEDICARE, OTHER, SELFPAY ==
[2024-12-05 10:30] VITALS: BP 164/73; PULSE 74; TEMP 36.6; O2SAT 97; BMI 29.0
[2024-12-05 10:32] VITALS: BP 164/73; O2SAT 97
--- OUTSIDE RECORDS SUMMARY | 2024-12-05 10:32 | XMS_ITS | CCD ---
Author Organization [facility] Care Team Providers Care Tafe Lecturer Name Role Phone SOURAV [phone] UNKNOWN Unavailable Unavailable BETH GOODEN Unavailable Unavailable [...] MD Jose Enrique Leblanc II Attending Provider [phone] Jose Enrique Leblanc II Unavailable [phone] Jose Enrique Leblanc II Attending UnavailJose [...] [bacitracin] Drug Allergy 09-11-2013 Unknown [facility] Repository (19 sources) Albuterol Drug Allergy Unknown [facility]ef[facility] Other (20 sources) HMG-CoA reductase inhibitor Drug allergy Unknown Sefaira Other Medications Current Medications Medication Drug Class(es) Dates Sig (Normalized) Sig (Original) acetaminophen 325 mg oral tablet (20 sources) Start: 10-17-2023 take 2 tablets by mouth every eight hours as needed Acetaminophen 325 mg tablet Active 325 MG PO Every 8 hours as needed October 17, 2023 1:00am 2 tablets by mouth orally every 8 hours PRN Start: 01-02-2018 take 2 tablets by [facility] every eight hours acetaminophen (TYLENOL) 500 mg tablet Take 2 tablets by mouth every 8 hours. (Mild pain reliever) 90 tablet 1 01/02/2018 Active take 2 tablets by [facility] every eight hours as needed Acetaminophen 325 MG 2 tablets by mouth Orally every 8 hours PRN Active Comment on above: Take 2 tablets by [facility] every 8 hours. (Mild pain reliever) [...] 11:06am Start: 07-10-2023 take 1 capsule by [facility] every twelve hours Doxycycline Hyclate [...] Drug Class(es) Dates Sig (Normalized) Sig (Original) [id number] actuat albuterol 0.09 mg/actuat metered dose [...] Comment on above: Take 1 capsule by [facility] twice daily. (Stool softener) ferrous sulfate [...] Comment on above: Take 1 capsule by [facility] once daily. hydrocortisone 25 mg/ml topical [...] 01-22-2024 Episodic Other aftercare (2 sources) Other jail (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 therapy; Translations: [OTH RN SANE CURRENT DRUG THERAPY] Onset: 11-06-2022 Episodic Other [...] Results Test Name Value Interpretation Reference Range [facility] 03-20-2023 [facility] Telephone (SPSCAV) RUPERTO THORPE ([id number]) 1940 [employer] Date Time Provider Department 03/20/23 DAVID JAEGRE [facility] During your visit today, we recorded the following information about you: Neida Porter MA 03/20/2023 12:30 PM Signed DATE OF SERVICE: 03/15/2023 PATIENT'S PHONE NUMBERS: [phone] (home) OR @WKPH@ PROVIDER: Dr. Jaeger PROCEDURE: [...] work Requesting to call his CELL ONLY [phone] what to do next Leave Detailed messages Neida Porter MA 03/21/2023 2:01 PM Signed Formatted spine intervention order and sent to Dr. Jaeger for approval. Neida Porter MA 03/21/2023 2:01 PM Signed Addended by: NEIDA PORTER on: 03/21/2023 02:01 PM Modules accepted: David Drosey DO 03/21/2023 2:06 PM Signed Addended by: [...] of spine injection schedulers to call at [phone]. Patient will call if he wants to schedule another injection. 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 Author [...] offered a procedure / surgery at a [facility] facility. Patient and I have discussed [...] indicated on the consent form. [facility] approved time out was performed identifying the site, side and level of procedure prior to start of procedure. [facility] SURGERY [place] - ELECTIVE PROCEDURE Lumbar Transforaminal Epidural Steroid [...] the entire procedure. David Jaeger DO, MBA [facility] RUPERTO THORPE ([id number]) 1940 [address] [place] [place] Date Time Provider Department 02/26/23 DAVID JAEGER During your visit today, we recorded the following information about you: Linda Chandler HODA 02/26/2023 4:49 PM Signed Spoke to patient in reguards to pre procedure instructions. Pt must have a bulk driver. Pt advised to arrive 30 [...] take. Advised on location of ASC-2nd floor [facility] Pt will receive a follow up call several days after by a seo team lead. If you experience any increase in weakness, difficulty walking or significant increase in pain that last more than 4 hours, please proceed to the Emergency Room and tell them you had a spine procedure done recently. Additionally, call us and notify us of these symptoms. Please call [phone] if you have any questions. Pt verbalized [...] Status:Closed by LINDA KNOX LPN on 02/26/23 [facility] Unique 02-19-2023 CHELLE Telephone (SPNMAV) RUPERTO THORPE ([id number]) 1940 [employer]* Date Time Provider Department 02/19/23 DAVID [...] call Celi as patient cannot hear well [phone] Patient has been identified by name and birthdate. Duration of symptoms: N/A Person calling: daughter: Celi Call patient at: N/A [phone] (home) [phone] (cell) Was an appointment scheduled: No Closing statement: Results or non-symptom based questions: Thank you for calling [facility], your call will be returned within the next business day. Camilla Jarrell [facility] [place] Linda Knox LPN 02/19/2023 9:45 AM Signed Spine Intervention order formatted for review Linda Knox LPN 02/19/2023 11:59 AM Signed Order approved Spoke to daughter in rust to pre procedure instructions. Daughter given scheduling number [phone] Pt must have a bulk driver. Pt advised to arrive 30 min prior to the time given by the lumber tying machine operator. Pt advised will also receive a call the day before from the surgery center to confirm date/time. Pt can eat and drink as normal. and Pt can take medications as normal. No alcohol 24 hours prior. Pt is on ASA.- 81 mg okay to take. and must Advised on location of ASC-2nd floor [facility] Pt will receive a follow up call several days after by a seo team lead. If you experience any increase in weakness, difficulty walking or significant increase in pain that last more than 4 hours, please proceed to the Emergency Room and tell them you had a spine procedure done recently. Additionally, call us and notify us of these symptoms. Please call [phone] if you have any questions. Pt verbalized understanding. 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 Normal [facility] XR knee LT 4V*on 11-09-2022 XR knee LT 4V* [facility] [place] [address] [place] [address] XRay Report Signed Patient: Ruperto Thorpe MR#: [id number] 5 : 1940 Acct:[id number] Age/Sex: 82 / M ADM Date: 11/09/22 Loc: [facility] Room: Type: [facility] Attending Dr: Jose Enrique Leblanc II, MD [...] Darren Yuen M.D.11/09/2022 5:03 PM Dictation Location: [place] [address] Transcribed By: [facility] 11/09/221702 Dictated By: Darren Yuen II, MD 11/09/221700 Signed By: 11/09/221702 Normal [facility] XR knee LT 4V* [facility] [employer] Other XR knee LT 4V* [facility] [employer] Other XR knee LT 4V* [address] [place] [address] [employer] Other XR knee LT 4V* [place] [address] No rt [employer] Other XR knee LT 4V* XRay Report [employer] Other XR knee LT 4V* Signed [employer] Other XR knee LT 4V* Patient: Ruperto Thorpe MR#: [id number] [employer] Other XR knee LT 4V* 5 [employer] Other XR knee LT 4V* : 1940 Acct:[id number] [employer] Other XR knee LT 4V* Age/Sex: 82 / M ADM Date: 11/09/22 [employer] Other XR knee LT 4V* Loc: [facility] Room: Type : [facility] [employer] Other XR knee LT 4V* Attending Dr: Jose Enrique Leblanc II, MD [employer] Other XR knee LT 4V* Copies to: Jose Enrique Leblanc MD [employer] Other XR knee LT 4V* Ordering Provider: Jose Enrique Leblanc MD [employer] Other XR knee LT 4V* Date of Service: 11/09/22 [employer] Other XR knee LT 4V* XR/XR knee LT 4V*: Acute pain of left knee [employer] Other XR knee LT 4V* XR knee LT 4V* 11/09/2022 3:15 PM [employer] Other XR knee LT 4V* SIGNS AND SYMPTOMS: Acute pain of left knee [employer] Other XR knee LT 4V* PROTOCOL: Frontal, lateral, oblique, and sunrise views of the left knee [employer] Other XR knee LT 4V* COMPARISON: 11/05/2022 [employer] Other XR knee LT 4V* FINDINGS: [employer] Other XR knee LT 4V* There is similar narrowing of the weightbearing joint spaces with chondrocalcinosis of the menisci [employer] Other XR knee LT 4V* suggesting underlyin g CPPD. There is narrowing of the patellofemoral joint space with spurring at [employer] Other XR knee LT 4V* the superior pole of patella. There is a small joint effusion. No soft tissue swelling. No acute [employer] Other XR knee LT 4V* displaced fracture. Vascular calcifications are present posteriorly. [employer] Other XR knee LT 4V* XR/XR knee LT 4V* [employer] Other XR knee LT 4V* IMPRESSION: [employer] Other XR knee LT 4V* Tricompartmental degenerative changes are noted in the left knee with a small joint effusion. [employer] Other XR knee LT 4V* There is chondrocalcinosis of the menisci suggesting underlying CPPD. [employer] Other XR knee LT 4V* Impression dictated by: Darren Yuen M.D.11/09/2022 5:03 PM [employer] Other XR knee LT 4V* Dictation Location: [place] [address] [employer] Other XR knee LT 4V* Transcribed By: COLIN 11/09/22 1703 [employer] Other XR knee LT 4V* Dictated By: Darren Yuen II, MD 11/09/22 170 [employer] Other XR knee LT 4V* Signed By: [employer] Other XR knee LT 4V* 11/09/22 170 [employer] Other XR pelvis 1-2Von 11-09-2022 XR pelvis 1-2V [facility] [place] [address] [place] [address] XRay Report Signed Patient: Ruperto Thorpe MR#: [id number] 5 : 1940 Acct:[id number] Age/Sex: 82 / M ADM Date: 11/09/22 Loc: [facility] Room: Type: [facility] Attending Dr: Jose Enrique Leblanc II, MD [...] Darren Yuen M.D.11/09/2022 5:01 PM Dictation Location: [facility] Transcribed By: [facility] 11/09/221700 Dictated By: Darren Yuen II, MD 11/09/221699 Signed By: 11/09/221700 [facility] XR pelvis 1-2V XR/XR pelvis 1-2V: Acute pain of left knee [employer] Other XR pelvis 1-2V XR pelvis 1-2V 11/09/2022 3:15 PM [employer] Other XR pelvis 1-2V SIGNS AND SYMPTOMS: Left knee pain [employer] Other XR pelvis 1-2V PROTOCOL: Frontal radiograph of the chest [employer] Other XR pelvis 1-2V COMPARISON: None [place] Other XR pelvis 1-2V There is mild narrowing of the left hip joint space with subcortical cystic change on both sides of [employer] Other XR pelvis 1-2V the joint along the acetabular there is chondrocalcinosis of the labrum overlying the superior [employer] Other XR pelvis 1-2V acetabular rim and superior lateral femoral head. The bony ring of the pelvis is intact. There is [employer] Other XR pelvis 1-2V total right hip arthroplasty. Degenerative changes are noted in the sacroiliac joints. No fracture [employer] Other XR pelvis 1-2V is [employer] Other XR pelvis 1-2V XR/XR pelvis 1-2V [employer] Other XR pelvis 1-2V Degenerative changes are noted in the left hip with findings suspicious for previous labral [employer] Other XR pelvis 1-2V pathology. [employer] Other XR pelvis 1-2V Postoperative change s are noted in the right hip with total right hip arthroplasty hardware. [employer] Other XR pelvis 1-2V Impression dictated by: Darren Yuen M.D.11/09/2022 5:01 PM [employer] Other XR pelvis 1-2V Transcribed By: PWS 11/09/22 170 [employer] Other XR pelvis 1-2V Dictated By: Darren Yuen II, MD 11/09/221699 [employer] Other XR pelvis 1-2V 11/09/22 170 [employer] Other XR KNEE LT 4V or >on [...] There is chondrocalcinosis. Soft tissues: Unremarkable. IMPRESSION: Scay-py-niwfwiwe osteoarthritis as described above. Chondrocalcinosis. No acute fracture or dislocation. Electronically authenticated by: CHUCK JONES Date: 2022-11-05 11:19 Normal [facility] US CAROTID ART BILon 023 US CAROTID [...] JONAS MCLEOD Date: 2022-09-26 10:58 Normal [facility] CBC AUTO DIFFon 08-10-2022 BASO # 0.0 103/ul Normal 0.0-0.1 [facility] Comment on above: Performed By: #### C BC #### [facility] [address] [place] [address] [address] Alexis Brink Basophils/100 WBC (Bld) 0.7 % Normal 0.2-2.0 [facility] Comment on above: Performed By: #### C BC #### [facility] [address] [place] [address] [address] Alexis Brink EO # 0.3 103/ul Normal 0.0-0.7 [facility] Comment on above: Performed By: #### C BC #### [facility] [address] [place] [address] [address] Alexis Brink Eosinophils/100 WBC (Bld) 6.1 % Normal 0.9-7.0 [facility] Comment on above: Performed By: #### C BC #### [facility] [address] [place] [address] [address] Alexis Brink Erythrocyte distribution width (RBC) [Ratio] 12.1 % Normal 11.0-15.0 [facility] Comment on above: Performed By: #### C BC #### [facility] [address] [place] [address] [address] Alexis Brink Hematocrit (Bld) [Volume fraction] 44.2 % Normal 42.0-54.0 [facility] Comment on above: Performed By: #### C BC #### [facility] [address] [place] [address] [address] Alexis Brink Hemoglobin (Bld) [Mass/Vol] 14.9 g/dL Normal 14.0-18.0 [facility] Comment on above: Performed By: #### C BC #### [facility] [address] [place] [address] Dr. Alexis Brink IG # 0.01 10e3/ul Normal 0.00-0.03 [facility] Comment on above: Performed By: #### C BC #### [facility] [address] [place] [address] Dr. Alexis Brink IG % 0.2 % Normal 0.0-0.5 [facility] Comment on above: Performed By: #### C BC #### [facility] [address] [place] [address] Dr. Alexis Brink LYMPH # 1.2 103/ul Normal 1.2-3.8 [facility] Comment on above: Performed By: #### C BC #### [facility] [address] [place] [address] Dr. Alexis Brink Lymphocytes/100 WBC (Bld) 21.3 % Normal 20.5-60.0 [facility] Comment on above: Performed By: #### C BC #### [facility] [address] [place] [address] Dr. Alexis Brink MANUAL DIFF REQ NO Normal [facility] Comment on above: Performed By: #### C BC #### [facility] [address] [place] [address] Dr. Alexis Brink MCH (RBC) [Entitic mass] 30.7 pg Normal 25.9-34.0 [facility] Comment on above: Performed By: #### C BC #### [facility] [address] [place] [address] Dr. Alexis Brink MCHC (RBC) [Mass/Vol] 33.7 g/dL Normal 29.9-35.2 [facility] Comment on above: Performed By: #### C BC #### [facility] [address] [place] [address] Dr. Alexis Brink MCV (RBC) [Entitic vol] 91.1 fL Normal 80.0-94.0 [facility] Comment on above: Performed By: #### C BC #### [facility] [address] [place] [address] Dr. Alexis Brink MONO # 0.5 103/ul Normal 0.3-0.8 [facility] Comment on above: Performed By: #### C BC #### [facility] [address] [place] [address] Dr. Alexis Brink Monocytes/100 WBC (Bld) 8.5 % Normal 1.7-12.0 [facility] Comment on above: Performed By: #### C BC #### [facility] [address] [place] [address] Dr. Alexis Brink NEUT # 3.5 103/ul Normal 1.4-6.5 [facility] Comment on above: Performed By: #### C BC #### [facility] [address] [place] [address] Dr. Alexis Brink Neutrophils/100 WBC (Bld) 63.2 % Normal 43.0-75.0 [facility] Comment on above: Performed By: #### C BC #### [facility] [address] [place] [address] Dr. Alexis Brink Platelet mean volume (Bld) [Entitic vol] 10.0 fL Normal 9.5-13.5 [facility] Comment on above: Performed By: #### C BC #### [facility] [address] [place] [address] Dr. Alexis Brink PLT 120 103/ul Critically low 150-450 [facility] Comment on above: Performed By: #### C BC #### [facility] [address] [place] [address] Dr. Alexis Brink RBC 4.85 106/ul Normal 4.70-6.10 [facility] Comment on above: Performed By: #### C BC #### [facility] [address] [place] [address] Dr. Alexis Brink WBC 5.6 103/ul Normal 4.0-11.0 [facility] Comment on above: Performed By: #### C BC #### [facility] [address] [place] [address] [address] Alexis Brink Covid-19 PCR (CVDTB)on 07-21 SARS-CoV-2 (COVID-19) RNA RICKY+probe Ql (Unsp spec) Not detected Normal NOT DETECTED [facility] Comment on above: Result Comment: This test is not yet approved or cleared by the [place] FDA. When there are no FDA-approved or cleared tests available, and other criteria are met, FDA can make tests available under an emergency access mechanism called an Emergency Use Authorization (EUA). The EUA for this test is supported by the Security Infrastructure Engineer of Health and Human Service's (HHS's) declaration [...] with SARS-CoV-2. Performed By: #### C VDTBH ####[facility] [address] [place], [place] [address]DrLainey Brink INFLUENZA A AND B AGon 08-10 [facility] Normal [facility] Comment on above: Result Comment: Nega tive for Flu A protein angiten. Infection due to Flu A cannot be ruled out. Flu A angiten in the sample may be below the detection limit of the test. Performed By: #### I NFLUAB ####[facility] [address] [place] [address]DrLainey Brink INFLUBNEGH SEE BELOW Normal [facility] Comment on above: Result Comment: Nega tive for Flu B protein antigen. Infection due to Flu B cannot be ruled out. Flu B antigen in the sample may be below the detection limit of the test. Performed By: #### I NFLUAB ####[facility] [address] [place], [place] [address]DrLainey Brink INFLUENZA A AG Negative Normal NEGATIVE SEE COMMENT [facility] Comment on above: Performed By: #### I NFLUAB ####[facility] [address] [place] [address]Dr. Alexis Brink INFLUENZA B AG Negative Normal NEGATIVE SEE COMMENT [facility] Comment on above: Performed By: #### I NFLUAB ####[facility] [address] [place] [address]Dr. Alexis Brink INTERNAL CONTROLS Within Normal Limits Normal Wi thin Normal Limits [facility] Comment on above: Performed By: #### I NFLUAB ####[facility] [address] [place] [address]Dr. Alexis Brink PROF CHEM 8 (BAS METB)on Anion gap [Moles/Vol] 11.4 mmol/L Normal [facility] Comment on above: Performed By: #### B NARA HSTROPN #### [facility] [address] [place] [address] [address] Alexis Brink Calcium [Mass/Vol] 8.9 mg/dL Normal 8.5-10.1 [facility] Comment on above: Performed By: #### B NARA HSTROPN #### [facility] [address] [place] [address] [address] Alexis Brink Chloride [Moles/Vol] 102 mmol/L Normal 98-107 [facility] Comment on above: Performed By: #### B NARA, HSTROPN #### [facility] [address] [place] [address] [address] Alexis Brink CO2 [Moles/Vol] 28.8 mmol/L Normal 21.0-32.0 [facility] Comment on above: Performed By: #### B NARA, HSTROPN #### [facility] [address] [place] [address] [address] Alexis Brink Creatinine [Mass/Vol] 1.35 mg/dL Critically high 0.70-1.30 [facility] Comment on above: Performed By: #### B NARA, HSTROPN #### [facility] [address] [place] [address] [address] Alexis Brink EGFR-AF CHADIAN >60 Normal >=60 [facility] Comment on above: Performed By: #### B MP, HSTROPN #### [facility] [address] [place] [address] [address] Alexis Brink EGFR-NON AF CHADIAN 51 mL/min/1.73m2 Critically low >=60 [facility] Comment on above: Performed By: #### B MP, HSTROPN #### [facility] [address] [address] [address] Alexis Brink Glucose [Mass/Vol] 109 mg/dL Critically high 74-106 [facility] Comment on above: Performed By: #### B MP, HSTROPN #### [facility] [address] [address] [address] Alexis Brink Potassium [Moles/Vol] 4.2 mmol/L Normal 3.5-5.1 [facility] Comment on above: Performed By: #### B MP, HSTROPN #### [facility] [address] [place] [address] [address] Alexis Brink Sodium [Moles/Vol] 138 mmol/L Normal 136-145 [facility] Comment on above: Performed By: #### B MP, HSTROPN #### [facility] [address] [place] [address] [address] Alexis Brink Urea nitrogen [Mass/Vol] 18.0 mg/dL Normal 7.0-18.0 [facility] Comment on above: Performed By: #### B MP, HSTROPN #### [facility] [address] [address] [address] Alexis Brink Urea nitrogen/Creatinin e [Mass ratio] 13.3 mg/mg Normal [facility] Comment on above: Performed By: #### B MP, HSTROPN #### [facility] [address] [place] [address] [address] Alexis Brink TROPONIN, HIGH SENSITIVITYon 08-10-2022 HSTROP 22.2 pg/mL Normal 4.0-76.1 [facility] Comment on above: Result Comment: CUT- OFF POINTS HAVE BEEN ESTABLISHED BASED ON THE FOURTH UNIVERSAL DEFINITIONS OF MYOCARDIAL INFARCTION. THE UPPER REFERENCE LIMIT (URL) OF TROPONIN, DEFINED THE 99TH PERCENTILE OF cTnI DISTRIBUTION IN A REFERENCE POPULATION, HAS BEEN CONFIRMED THE DECISION THRESHOLD FOR NM DIAGNOSIS. Performed By: #### B MP, HSTROPN #### [facility] [address] [place] [address] [address] Alexis Brink XR CHEST 1 Von [...] RADHA UNDERWOOD Date: 2022-08-10 16:07 Normal [facility] CBC AUTO DIFFon 02-09-2022 BASO # 0.0 103/ul Normal 0.0-0.1 [facility] Comment on above: Performed By: #### C BC #### [facility] [address] [address] [address] Alexis Brink Basophils/100 WBC (Bld) 0.6 % Normal 0.2-2.0 [facility] Comment on above: Performed By: #### C BC #### [facility] [address] [address] [address] Alexis Brink EO # 0.5 103/ul Normal 0.0-0.7 [facility] Comment on above: Performed By: #### C BC #### [facility] [address] [place] [address] Dr. Alexis Brink Eosinophils/100 WBC (Bld) 7.2 % Critically high 0.9-7.0 [facility] Comment on above: Performed By: #### C BC #### [facility] [address] [place] [address] Dr. Alexis Brink Erythrocyte distribution width (RBC) [Ratio] 12.4 % Normal 11.0-15.0 [facility] Comment on above: Performed By: #### C BC #### [facility] [address] [place] [address] Dr. Alexis Brink Hematocrit (Bld) [Volume fraction] 45.5 % Normal 42.0-54.0 [facility] Comment on above: Performed By: #### C BC #### [facility] [address] [place] [address] Dr. Alexis Brink Hemoglobin (Bld) [Mass/Vol] 15.4 g/dL Normal 14.0-18.0 [facility] Comment on above: Performed By: #### C BC #### [facility] [address] [place] [address] Dr. Alexis Brink IG # 0.02 10e3/ul Normal 0.00-0.03 [facility] Comment on above: Performed By: #### C BC #### [facility] [address] [place] [address] Dr. Alexis Brink IG % 0.3 % Normal 0.0-0.5 [facility] Comment on above: Performed By: #### C BC #### [facility] [address] [place] [address] Dr. Alexis Brink LYMPH # 1.3 103/ul Normal 1.2-3.8 [facility] Comment on above: Performed By: #### C BC #### [facility] [address] [place] [address] Dr. Alexis Brink Lymphocytes/100 WBC (Bld) 17.8 % Critically low 20.5-60.0 [facility] Comment on above: Performed By: #### C BC #### [facility] [address] [place] [address] Dr. Alexis Brink MANUAL DIFF REQ NO Normal [facility] Comment on above: Performed By: #### C BC #### [facility] [address] [place] [address] Dr. Alexis Brink MCH (RBC) [Entitic mass] 31.4 pg Normal 25.9-34.0 [facility] Comment on above: Performed By: #### C BC #### [facility] [address] [place] [address] Dr. Alexis Brink MCHC (RBC) [Mass/Vol] 33.8 g/dL Normal 29.9-35.2 [facility] Comment on above: Performed By: #### C BC #### [facility] [address] [place] [address] Dr. Alexis Brink MCV (RBC) [Entitic vol] 92.9 fL Normal 80.0-94.0 [facility] Comment on above: Performed By: #### C BC #### [facility] [address] [place] [address] Dr. Alexis Brink MONO # 0.7 103/ul Normal 0.3-0.8 [facility] Comment on above: Performed By: #### C BC #### [facility] [address] [place] [address] Dr. Alexis Brink Monocytes/100 WBC (Bld) 9.6 % Normal 1.7-12.0 [facility] Comment on above: Performed By: #### C BC #### [facility] [address] [place] [address] Dr. Alexis Brink NEUT # 4.6 103/ul Normal 1.4-6.5 [facility] Comment on above: Performed By: #### C BC #### [facility] [address] [place] [address] Dr. Alexis Brink Neutrophils/100 WBC (Bld) 64.5 % Normal 43.0-75.0 [facility] Comment on above: Performed By: #### C BC #### [facility] [address] [place] [address] Dr. Alexis Brink Platelet mean volume (Bld) [Entitic vol] 10.7 fL Normal 9.5-13.5 [facility] Comment on above: Performed By: #### C BC #### [facility] [address] [address] [address] Alexis Brink PLT 130 103/ul Critically low 150-450 [facility] Comment on above: Performed By: #### C BC #### [facility] [address] [address] [address] Alexis Brink RBC 4.90 106/ul Normal 4.70-6.10 [facility] Comment on above: Performed By: #### C BC #### [facility] [address] [address] [address] Alexis Brink WBC 7.1 103/ul Normal 4.0-11.0 [facility] Comment on above: Performed By: #### C BC #### [facility] [address] [address] [address] Alexis Brink DIRECT LDLon 02-09-2022 Cholesterol in LDL [Mass/Vol] 144 mg/dL Normal [facility] Comment on above: Performed By: #### D LDL, BMP ####[facility] [id number] [address]Dr. Alexis Brink DLDL NORMAL SEE BELOW Normal [facility] Comment on above: Result Comment: <100 mg/dl OPTIMAL 100 - 129 mg/dl NEAR OR ABOVE OPTIMAL 130 - 159 mg/dl BORDERLINE HIGH 160 - 189 mg/dl HIGH >190 mg/dl VERY HIGH Performed By: #### D LDL, BMP ####[facility] [id number] [id number]. Alexis Brink PROF CHEM 8 (BAS METB)on Anion gap [Moles/Vol] 9.3 mmol/L Normal [facility] Comment on above: Performed By: #### D LDL, BMP #### [facility] [id number] Alexis Brink Calcium [Mass/Vol] 8.7 mg/dL Normal 8.5-10.1 [facility] Comment on above: Performed By: #### D LDL, BMP #### [facility] [address] [address] [address] Alexis Brink Chloride [Moles/Vol] 103 mmol/L Normal 98-107 [facility] Comment on above: Performed By: #### D LDL, BMP #### [facility] [address] [address] [address] Alexis Brink CO2 [Moles/Vol] 32.1 mmol/L Critically high 21.0-32.0 [facility] Comment on above: Performed By: #### D LDL, BMP #### [facility] [address] [address] [address] Alexis Brink Creatinine [Mass/Vol] 1.35 mg/dL Critically high 0.70-1.30 [facility] Comment on above: Performed By: #### D LDL, BMP #### [facility] [address] [address] [address] Alexis Brink EGFR-AF CHADIAN >60 Normal >=[address] [facility] Comment on above: Performed By: #### D LDL, BMP #### [facility] [address] [address] [address] Alexis Brink EGFR-NON AF CHADIAN 51 mL/min/1.73m2 Critically low >=60 [facility] Comment on above: Performed By: #### D LDL, BMP #### [facility] [address] [address] [address] Alexis Brink Glucose [Mass/Vol] 90 mg/dL Normal 74-106 [facility] Comment on above: Performed By: #### D LDL, BMP #### [facility] [address] [address] [address] Alexis Brink Potassium [Moles/Vol] 4.4 mmol/L Normal 3.5-5.1 [facility] Comment on above: Performed By: #### D LDL, BMP #### [facility] [address] [address] [address] Alexis Brink Sodium [Moles/Vol] 140 mmol/L Normal 136-145 [facility] Comment on above: Performed By: #### D LDL, BMP #### [facility] [address] [address] [address] Alexis Brink Urea nitrogen [Mass/Vol] 16.0 mg/dL Normal 7.0-18.0 [facility] Comment on above: Performed By: #### D LDL, BMP #### [facility] [address] [address] [address] Alexis Brink Urea nitrogen/Creatinin e [Mass ratio] 11.9 mg/mg Normal [facility] Comment on above: Performed By: #### D LDL, BMP #### [facility] [address] [address] [address] Alexis Brink UA RANDOMon 02-09-2022 Bilirubin Ql (U) Negative Normal NEGATIVE [facility] Comment on above: Performed By: #### U A #### [facility] [address] [place] [address] Dr. Alexis Brink Clarity (U) CLEAR Normal CLEAR [facility] Comment on above: Performed By: #### U A #### [facility] [address] [place] [address] Dr. Alexis Brink Color (U) YELLOW Normal YELLOW [facility] Comment on above: Performed By: #### U A #### [facility] [address] [place] [address] Dr. Alexis Brink Glucose Ql (U) Negative Normal NEGATIVE [facility] Comment on above: Performed By: #### U A #### [facility] [address] [place] [address] Dr. Alexis Brink Hemoglobin Ql (U) Negative Normal NEGATIVE [facility] Comment on above: Performed By: #### U A #### [facility] [address] [address] [address] Alexis Brink Ketones Ql (U) Negative Normal NEGATIVE [facility] Comment on above: Performed By: #### U A #### [facility] [address] [place] [address] Dr. Alexis Brink LEUKOCYTES Negative Normal NEGATIVE [facility] Comment on above: Performed By: #### U A #### [facility] [address] [place] [address] Dr. Alexis Brink Nitrite Ql (U) Negative Normal NEGATIVE [facility] Comment on above: Performed By: #### U A #### [facility] [address] [address] [address] Alexis Brink pH (U) 7.0 [pH] Normal 5-9 [facility] Comment on above: Performed By: #### U A #### [facility] [id number] Alexis Brink SPEC GRAVITY 1.015 Normal 1.005-<=1.025 [facility] Comment on above: Performed By: #### U A #### [facility] [address] [address] [address] Alexis Brink UA PROTEIN Negative Normal NEGATIVE/ TRACE [facility] Comment on above: Performed By: #### U A #### [facility] [address] [address] [address] Alexis Brink Urobilinogen Qn (U) 1.0 {Kay'U}/dL Normal 0.2 - 1.0 [facility] Comment on above: Performed By: #### U A #### [facility] [address] [address] [address] Alexis Brink XR CHEST 2 Von [...] HAWLEY Date: 2021-12-06 15:42 Normal [facility] Nonvisit Note - PTon 018 Nonvisit Note - PT Cert letter refaxed for signature this date - third and final attempt. Normal [facility] Nonvisit Note - PTon 018 Nonvisit Note - PT Cert letter refaxed to Dr Gooden's office. Second attempt. Normal [facility] Coding Summary.on 01-25-2018 Coding Summary. CODING DATE: 01/25/2018 [facility] STATUS: PAYOR: Medicare ADMIT DX: REASON FOR [...] Pendleton Date Saved: 01/25/2018 10:54 am Normal [facility] Coding Summary. CODING DATE: 01/25/2018 [facility] STATUS: PAYOR: Medicare ADMIT DX: REASON FOR [...] [place] Date Saved: 01/25/2018 10:54 am Normal [facility] SURGICAL PATHOLOGYon 05-15-2 018 SURGICAL PATHOLOGY [facility]: [id number] Physician: BETH GOODEN MD FINAL DIAGNOSISRight hip, [...] to 8.5 x 8.5 x 1.8 cm. Elementary Educator sectionsare submitted as follows: A1 soft tissue, A2 bone submitted afterdecalcification.B F/lachelle 01/01/2018 Gross examination performed at [facility], [address] [place], [place] [id number] of Report: 01/07/2018Date of Procedure: 01/01/2018Date of Receipt: 01/01/2018Submitted by: BETH GOODEN MDLocation: [id number] interpretation performed at [place] [id number]. Normal [facility] Comment on above: Performed By: #### S ####See report for performing lab information. Vital Signs Date Time Vital Sign Value Performing Clinician Facility 11-06-2024 09:040 Body height 167.64 cm [facility] 11-06-2024 09:0400 Body mass index (BMI) [Ratio] 28.9 kg/m2 [facility] 11-06-2024 09:040 Body weight 81.36 kg [facility] 11-06-2024 09:020400 Diastolic blood pressure 67 mm[Hg] [facility] 11-06-2024 09:02-0400 Heart rate 82 /min [facility] 11-06-2024 09:020400 Respiratory rate 24 /min [facility] 11-06-2024 09:02-0400 SaO2% (BldA) [Mass fraction] 98 % [facility] 11-06-2024 09:02-0400 Systolic blood pressure 130 mm[Hg] [facility] 10-01-2024 08:35-0500 Body height 167.64 cm [facility] 10-01-2024 08:35-0500 Body mass index (BMI) [Ratio] 28.5 kg/m2 [facility] 10-01-2024 08:35-0500 Body weight 80.34 kg [facility] 10-01-2024 08:35-0500 Diastolic blood pressure 74 mm[Hg] [facility] 10-01-2024 08:35-0500 Heart rate 67 /min [facility] 10-01-2024 08:35-0500 Respiratory rate 16 /min [facility] 10-01-2024 08:35-0500 Systolic blood pressure 155 mm[Hg] [facility] 05-28-2024 08:30-0400 Body height 167.64 cm [facility] 05-28-2024 08:30-0400 Body mass index (BMI) [Ratio] 27.1 kg/m2 [facility] 05-28-2024 08:30-0400 Body weight 76.31 kg [facility] 05-28-2024 08:30-0400 Diastolic blood pressure 89 mm[Hg] [facility] 05-28-2024 08:30-0400 Heart rate 61 /min [facility] 05-28-2024 08:30-0400 Respiratory rate 12 /min [facility] 05-28-2024 08:30-0400 Systolic blood pressure 139 mm[Hg] [facility] 01-22-2024 09:16-0400 Body height 167.64 cm [facility] 01-22-2024 09:16-0400 Body mass index (BMI) [Ratio] 29.3 kg/m2 [facility] 01-22-2024 09:16-0400 Body weight 82.55 kg [facility] 01-22-2024 09:16-0400 Diastolic blood pressure 72 mm[Hg] [facility] 01-22-2024 09:16-0400 Heart rate 64 /min [facility] 01-22-2024 09:16-0400 Respiratory rate 20 /min [facility] 01-22-2024 09:16-0400 Systolic blood pressure 131 mm[Hg] [facility] 09-28-2023 11:00-0500 Body height 167.64 cm Cecilio Ball Other [facility] [employer] Other 09-28-2023 11:00-0500 Body mass index (BMI) [Ratio] 30.24 kg/m2 Cecilio Ball Other [facility] Other 09-28-2023 11:00-0500 Body weight 85 kg Cecilio Ball Other [facility] Other 09-28-2023 11:00-0500 Respiratory rate 20 /min Cecilio Ball Other [facility] Other 09-28-2023 11:00-0500 SaO2% (BldA) [Mass fraction] 97 % Cecilio Ball Other [facility] Other 09-11-2023 10:45-0500 Body height 167.64 cm Cecilio Ball Other [facility] Other 09-11-2023 10:45-0500 Body mass index (BMI) [Ratio] 29.86 kg/m2 Cecilio Ball Other [facility] Other 09-11-2023 10:45-0500 Body temperature 97.5 [degF] Cecilio Ball Other [facility] Other 09-11-2023 10:45-0500 Body weight 83.92 kg Cecilio Ball Other [facility] Other 09-11-2023 10:45-0500 Diastolic blood pressure 81 mm[Hg] Cecilio Ball Other [facility] Other 09-11-2023 10:45-0500 Respiratory rate 20 /min Cecilio Ball Other [facility] Other 09-11-2023 10:45-0500 SaO2% (BldA) [Mass fraction] 98 % Cecilio Ball Other [facility] Other 09-11-2023 10:45-0500 Systolic blood pressure 161 mm[Hg] Cecilio Ball Other [facility] Other 08-01-2023 10:15-0500 Body height 167.64 cm Cecilio Ball Other [facility] Other 08-01-2023 10:15-0500 Body mass index (BMI) [Ratio] 29.86 kg/m2 Cecilio Ball Other [facility] Other 08-01-2023 10:15-0500 Body weight 83.92 kg Cecilio Ball Other [facility] Other 08-01-2023 10:15-0500 Diastolic blood pressure 79 mm[Hg] Cecilio Ball Other [facility] Other 08-01-2023 10:15-0500 Respiratory rate 20 /min Cecliio Ball Other [facility] Other 08-01-2023 10:15-0500 Systolic blood pressure 172 mm[Hg] Cecilio Ball Other [facility] Other 07-17-2023 10:15-0500 Body height 167.64 cm Cecilio Ball Other [facility] Other 07-17-2023 10:15-0500 Body mass index (BMI) [Ratio] 29.89 kg/m2 Cecilio Ball Other [facility] Other 07-17-2023 10:15-0500 Body weight 84.01 kg Cecilio Ball Other [facility] Other 07-17-2023 10:15-0500 Diastolic blood pressure 78 mm[Hg] Cecilio Ball Other [facility] Other 07-17-2023 10:15-0500 Respiratory rate 20 /min Cecilio Ball Other [facility] Other 07-17-2023 10:15-0500 Systolic blood pressure 172 mm[Hg] Cecilio Ball Other [facility] Other 07-10-2023 14:45-0500 Body height 167.64 cm Cecilio Ball Other [facility] Other 07-10-2023 14:45-0500 Body mass index (BMI) [Ratio] 29.47 kg/m2 Cecilio Ball Other [facility] Other 07-10-2023 14:45-0500 Body weight 82.83 kg Cecilio Ball Other [facility] Other 07-10-2023 14:45-0500 Diastolic blood pressure 80 mm[Hg] Cecilio Ball Other [facility] Other 07-10-2023 14:45-0500 Respiratory rate 20 /min Cecilio Ball Other [facility] Other 07-10-2023 14:45-0500 Systolic blood pressure 150 mm[Hg] Cecilio Ball Other [facility] Other 06-20-2023 08:30-0400 Body height 167.64 cm Cecilio Ball Other [facility] Other 06-20-2023 08:30-0400 Body mass index (BMI) [Ratio] 29.6 kg/m2 Cecilio Ball Other [facility] Other 06-20-2023 08:30-0400 Body weight 83.19 kg Cecilio Ball Other [facility] Other 06-20-2023 08:30-0400 Diastolic blood pressure 76 mm[Hg] Cecilio Ball Other [facility] Other 06-20-2023 08:30-0400 Respiratory rate 20 /min Cecilio Ball Other [facility] Other 06-20-2023 08:30-0400 Systolic blood pressure 157 mm[Hg] Cecilio Ball Other [facility] Other 05-30-2023 13:45-0400 Body height 167.64 cm Cecilio Ball Other [facility] Other 05-30-2023 13:45-0400 Body mass index (BMI) [Ratio] 28.95 kg/m2 Cecilio Ball Other [facility] Other 05-30-2023 13:45-0400 Body weight 81.38 kg Cecilio Ball Other [facility] Other 05-30-2023 13:45-0400 Diastolic blood pressure 78 mm[Hg] Cecilio Ball Other [facility] Other 05-30-2023 13:45-0400 Respiratory rate 16 /min Cecilio Ball Other [facility] Other 05-30-2023 13:45-0400 Systolic blood pressure 158 mm[Hg] Cecilio Ball Other [facility] Other 02-14-2023 08:30-0400 Body height 167.64 cm Cecilio Ball Other [facility] Other 02-14-2023 08:30-0400 Body mass index (BMI) [Ratio] 28.57 kg/m2 Cecilio Ball Other [facility] Other 02-14-2023 08:30-0400 Body weight 80.29 kg Cecilio Ball Other [facility] Other 02-14-2023 08:30-0400 Diastolic blood pressure 80 mm[Hg] Cecilio Ball Other [facility] Other 02-14-2023 08:30-0400 Respiratory rate 16 /min Cecilio Ball Other [facility] Other 02-14-2023 08:30-0400 Systolic blood pressure 135 mm[Hg] Cecilio Ball Other [facility] Other 02-01-2023 08:15-0400 Body height 167.64 cm Jose Enrique Crockett II Other [facility] Other 02-01-2023 08:15-0400 Body mass index (BMI) [Ratio] 27.44 kg/m2 Jose Enrique Benji II Other [facility] Other 02-01-2023 08:15-0400 Body weight 77.11 kg Jose Enrique Crockett II Other [facility] Other 12-11-2022 10:30-0400 Body height 167.64 cm Cecilio Ball Other [facility] Other 12-11-2022 10:30-0400 Body mass index (BMI) [Ratio] 28.66 kg/m2 Cecilio Ball Other [facility] Other 12-11-2022 10:30-0400 Body weight 80.56 kg Cecilio Ball Other [facility] Other 12-11-2022 10:30-0400 Diastolic blood pressure 76 mm[Hg] Cecilio Ball Other [facility] Other 12-11-2022 10:30-0400 Respiratory rate 12 /min Cecilio Ball Other [facility] Other 12-11-2022 10:30-0400 Systolic blood pressure 151 mm[Hg] Cecilio Ball Other [facility] Other 11-09-2022 16:00-0400 Body mass index (BMI) [Ratio] 29.21 kg/m2 Jose Enrique Crockett II Other [facility] Other 11-09-2022 16:00-0400 Body weight 82.1 kg Jose Enrique Crockett II Other [facility] Other 11-09-2022 10:30-0400 Body height 167.64 cm Cecilio Ball Other [facility] Other 11-09-2022 10:30-0400 Body mass index (BMI) [Ratio] 29.23 kg/m2 Cecilio Ball Other [facility] Other 11-09-2022 10:30-0400 Body weight 82.15 kg Cecilio Ball Other [facility] Other 11-09-2022 10:30-0400 Diastolic blood pressure 79 mm[Hg] Cecilio Ball Other [facility] Other 11-09-2022 10:30-0400 Respiratory rate 20 /min Cecilio Ball Other [facility] Other 11-09-2022 10:30-0400 Systolic blood pressure 152 mm[Hg] Cecilio Ball Other [facility] Other 10-12-2022 10:00-0500 Body height 167.64 cm Cecilio Ball Other [facility] Other 10-12-2022 10:00-0500 Body mass index (BMI) [Ratio] 29.24 kg/m2 Cecilio Ball Other [facility] Other 10-12-2022 10:00-0500 Body weight 82.19 kg Cecilio Ball Other [facility] Other 10-12-2022 10:00-0500 Diastolic blood pressure 70 mm[Hg] Cecilio Ball Other [facility] Other 10-12-2022 10:00-0500 Respiratory rate 12 /min Cecilio Ball Other [facility] Other 10-12-2022 10:00-0500 Systolic blood pressure 102 mm[Hg] Cecilio Ball Other [facility] Other Encounters Encounter Date Encounter Type Care Provider Facility Start: 11-17-2024 End: 11-17-2024 ambulatory Maddie Villalobos MD Facility:[facility] Start: 11-06-2024 End: 11-06-[address] [facility] Work Phone: Start: 11-06-2024 End: 11-06-2024 Patient encounter procedure [facility] Work Phone: Start: 10-01-2024 End: 10-01-[address] [facility] Work Phone: Start: 10-01-2024 End: 10-01-2024 Patient encounter procedure [facility] Work Phone: Start: 08-18-2024 End: 08-18-2024 ambulatory Andrius Antonellaautas Gaetanoitis Facility:[facility] Start: 08-04-2024 End: 08-04-2024 ambulatory Andrius Antonellaautherlinda Salteritis Facility:[facility] Start: 07-14-2024 End: 07-14-2024 ambulatory Andbeto Bermanautas Gaetanoitis Facility:[facility] Start: 05-28-2024 End: 05-28-[address] [facility] Work Phone: Start: 05-28-2024 End: 05-28-2024 Patient encounter procedure [facility] Work Phone: Start: 05-26-2024 End: 05-26-2024 [...] End: 02-11-2024 ambulatory Maddie Villalobos MD Facility:[facility] Start: 01-28-2024 End: 01-28-2024 ambulatory Maddie Villalobos MD Facility: [facility] Start: 01-22-2024 End: 01-22-[address] [facility] Work Phone: Start: 01-22-2024 End: 01-22-2024 Patient encounter procedure [facility] Work Phone: Start: 10-30-2023 Non-patient / Non-visit [facility] Work Phone: Start: 09-28-2023 End: 09-28-2023 ambulatory Cecilio Ball Other [facility] Other Start: 09-28-2023 Office outpatient vi sit 15 minutes Cecilio Ball [facility] Start: 09-28-2023 Telephone encounter Cecilio Ball [facility] Start: 09-21-2023 End: 09-21-2023 ambulatory Cecilio Ball Other [facility] Other Start: 09-21-2023 Telephone encounter Cecilio Ball [facility] Start: 09-11-2023 End: 09-11-2023 ambulatory Cecilio Ball Other [facility] Other Start: 09-11-2023 Office outpatient vi sit 15 minutes Cecilio Ball [facility] Start: 09-11-2023 Telephone encounter Cecilio Ball [facility] Start: 09-03-2023 End: 09-03-2023 ambulatory Cecilio Ball Other [facility] Other Start: 09-03-2023 Telephone encounter Cecilio Ball [facility] Start: 08-03-2023 End: 08-03-2023 ambulatory Cecilio Ball Other [facility] Other Start: 08-03-2023 Telephone encounter Cecilio Benjamin [facility] Start: 08-01-2023 End: 08-01-2023 ambulatory Cecilio Ball Other [facility] Other Start: 08-01-2023 Office outpatient vi sit 15 minutes Cecilio Ball [facility] Start: 07-17-2023 End: 07-17-2023 ambulatory Cecilio Ball Other [facility] Other Start: 07-17-2023 Office outpatient vi sit 15 minutes Cecilio Ball [facility] Start: 07-10-2023 End: 07-10-2023 ambulatory Cecilio Ball Other [facility] Other Start: 07-10-2023 Office outpatient vi sit 15 minutes Cecilio Ball [facility] Start: 06-20-2023 End: 06-20-2023 ambulatory Cecilio oSurav Other [facility] Other Start: 06-20-2023 Office outpatient vi sit 25 minutes Cecilio Ball [facility] Start: 06-15-2023 End: 06-15-2023 ambulatory Cecilio Sourav Other [facility] Other Start: 06-15-2023 Telephone encounter Cecilio Benjamin [facility] Start: 05-30-2023 End: 05-30-2023 ambulatory Cecilio Ball Other [facility] Other Start: 05-30-2023 Office outpatient vi sit 15 minutes Cecilio Ball [facility] Start: 03-20-2023 Telephone encounter David Jaeger DO Work Phone: [facility] [place] Comment on above: Follow Up Phone Call Start: 03-15-2023 End: 03-15-2023 ambulatory DAVID JAEGER Facility:[facility] Start: 02-27-2023 Orders Only David Marcos DO Work Phone: Procedures Comment on above: Pseudoclaudication s yndrome (Primary Dx); Lumbar radiculopathy Start: 02-26-2023 Telephone encounter David Jaeger DO Work Phone: [facility] [place] Comment on above: Procedure Start: 02-19-2023 Telephone encounter David Jaeger DO Work Phone: [facility] [place] Comment on above: Appointment Start: 02-14-2023 End: 02-14-2023 ambulatory Cecilio Benjamin Other [facility] Other Start: 02-14-2023 Patient encounter procedure Cecilio Benjamin [facility] Start: 02-13-2023 End: 02-13-2023 ambulatory Cecilio Benjamin Other [facility] Other Start: 02-13-2023 Telephone encounter Cecilio Benjamin HOWIE [facility] Start: 02-08-2023 End: 02-08-2023 ambulatory Cecilio Benjamin Other [facility] Other Start: 02-08-2023 Telephone encounter Cecilio Benjmain [facility] Start: 02-01-2023 End: 02-01-2023 ambulatory Jose Enrique Leblanc II Other [facility] Other Start: 02-01-2023 Office outpatient vi sit 25 minutes Jose Enrique Leblanc II [facility] Start: 12-11-2022 End: 12-11-2022 ambulatory Cecilio Benjamin Other [facility] Other Start: 12-11-2022 Office outpatient vi sit 15 minutes Cecilio Benjamin [facility] Start: 11-09-2022 End: 11-09-2022 ambulatory Jose Enrique Leblanc II Facility:[facility] Start: 11-09-2022 End: 11-09-2022 Patient encounter procedure MD Jose Enrique Leblanc II Work Phone: [facility] Start: 11-09-2022 End: 11-09-2022 ambulatory MD Jose Enrique Leblanc II Work Phone: [facility] Work Phone: Start: 11-09-2022 Office outpatient ne w 45 minutes Jose Enrique Leblanc II [facility] Start: 11-09-2022 Office outpatient vi sit 15 minutes Cecilio Benjamin [facility] Start: 11-05-2022 End: 11-05-[address] CECILIO BENJAMIN Facility:[facility] Start: 10-12-2022 End: 10-12-2022 ambulatory Cecilio Benjamin Other [facility] Other Start: 10-12-2022 Office outpatient vi sit 25 minutes Cecilio Benjamin [facility] Start: 09-27-2022 End: 09-27-2022 ambulatory Cecilio Benjamin Other [facility] Other Start: 09-27-2022 Telephone encounter Cecilio DENISE [facility] Start: 09-26-2022 End: 09-27-[address] CECILIO BENJAMIN Facility:[facility] Start: 08-25-2022 End: 08-25-2022 ambulatory Cecilio Benjamin Other [facility] Other Start: 08-25-2022 Telephone encounter Cecilio DENISE [facility] Start: 08-10-2022 End: 08-10-[address] CECILIO BENJAMIN Facility:[facility] Start: 02-09-2022 End: 02-10-[address] CECILIO BENJAMIN Facility:[facility] Start: 12-06-2021 End: 12-07-[address] CECILIO BENJAMIN Facility:[facility] Start: 01-22-2018 End: 04-20-2018 Patient encounter [id number] AUGUSTINE BENJAMIN [place] [place] Date Procedure Procedure Detail Performing Clinician Start: 11-09-2022 Pelvis X-ray MD Jose Enrique Leblanc II Work Phone: Start: 11-09-2022 Radiologic examinati on of knee MD Jose Enrique Leblanc II Work Phone: Plan of Treatment Date Care Activity Detail Author Start: 01-22-2024 Patient referral [facility] Work Phone: Start: 04-20-2023 Influenza vaccination INFLUENZA (#1) [facility] Start: 10-01-2022 COVID-19 VACCINE (5 - Moderna series) COVID-19 VACCINE (5 - Moderna series) [facility] Start: 08-20-2022 ADVANCE DIRECTIVE DISCUSSION ADVANCE DIRECTIVE DISCUSSION [facility] Start: 08-20-2022 DEPRESSION ASSESSMENT DEPRESSION ASS ESSMENT [facility] Start: 09-19-2021 COVID-19 VACCINE (4 - Booster for Moderna series) COVID-19 VACCINE (4 - Booster for Moderna series) [facility] Start: 09-19-2021 COVID-19 VACCINE (4 - Moderna series) COVID-19 VACCINE (4 - Moderna series) [facility] Start: 01-02-2021 DIABETES SCREEN DIABETES SCREEN [facility] Start: 1991 SHINGRIX VACCINE (1 of 2) SHINGRIX VACCINE (1 of 2) [facility] Start: 1960 Urine microalbumin profile DTAP,TDAP,TD (1 - Tdap) [facility] Start: 1959 SPIROMETRY SPIROMETRY [facility] Start: 1947 PNEUMOCOCCAL: 65+ (1 - PCV) PNEUMOCOCCAL: 65+ (1 - PCV) [facility] Comprehensive metabo lic 2000 panel - Serum or Plasma [facility] Patient referral [facility] Work Phone: SPINE INTERVENTION PROCEDURE SPINE INTERVENTION PROCEDURE Procedures Routine Spinal stenosis, lumbar region with neurogenic claudication Lumbar radiculopathy, chronic Ordered: 02/19/2023 [facility] Work Phone: Comment on above: Ordered: 02/19/2023 [facility] Immunizations Immunization Date Immunization Notes Care Provider Coleman bermudez 05-28-2024 influenza, high dose seasonal, preservative-free [facility] 05-30-2023 COVID-19 Vaccine Moderna - Documentation Purposes Only Cecilio Benjamin Other [facility] 05-30-2023 influenza virus vaccine, unspecified formulation [facility] 05-30-2023 influenza, high dose seasonal, preservative-free Cecilio Benjamin Other [employer] Other 06-13-2022 influenza virus vaccine, split virus (incl. purified surface antigen) Cecilio Benjamin Other [facility] Other 06-13-2022 influenza virus vaccine, unspecified formulation [facility] 06-13-2022 influenza, high dose seasonal, preservative-free Jose Enrique Crockett II Other [facility] [employer] Other 05-31-2022 COVID-19 Pfizer (bivalent) Jose Enrique Crockett II Other [facility] 05-31-2022 COVID-19 Pfizer (Pediatric) Cecilio Benjamin Other [facility] 07-25-2021 COVID-19 Vaccine Moderna - Documentation Purposes Only Jose Enrique Crockett II Other [facility] 05-03-2021 zoster vaccine recombinant Jose Enrique Crockett II Other [facility] 05-03-2021 zoster vaccine, live Benjami n Ball Other [facility] 01-28-2021 zoster vaccine recombinant Jose Enrique Crockett II Other [facility] 01-28-2021 zoster vaccine, live Benjami n Ball Other [facility] 10-25-2020 COVID-19 Vaccine Moderna - Documentation Purposes Only Jose Enrique Crockett II Other [facility] 09-27-2020 COVID-19 Vaccine Moderna - Documentation Purposes Only Jose Enrique Benji II Other [facility] 05-24-2020 influenza virus vaccine, split virus (incl. purified surface antigen) Cecilio Benjamin Other [facility] [employer] Other 05-24-2020 influenza virus vaccine, unspecified formulation [facility] 01-03-2019 diphtheria, tetanus toxoids and acellular pertussis vaccine, unspecified formulation Cecilio Benjamin Other [facility] 12-25-2018 pneumococcal polysaccharide vaccine, 23 valent Jose Enrique Crockett II Other [facility] 04-30-2018 influenza virus vaccine, split virus (incl. purified surface antigen) Cecilio Benjamin Other [facility] [employer] Other 04-30-2018 influenza virus vaccine, unspecified formulation [facility] 04-09-2017 influenza virus vaccine, split virus (incl. purified surface antigen) Cecilio Benjamin Other [facility] [employer] Other 04-09-2017 influenza virus vaccine, unspecified formulation [facility] 05-31-2016 zoster vaccine, live Jose Enrique Crockett II Other [facility] 05-13-2016 influenza virus vaccine, split virus (incl. purified surface antigen) Cecilio Benjamin Other [facility] [employer] Other 05-13-2016 influenza virus vaccine, unspecified formulation [facility] 05-09-2015 influenza virus vaccine, split virus (incl. purified surface antigen) Cecilio Benjamin Other [facility] [employer] Other 05-09-2015 influenza virus vaccine, unspecified formulation [facility] 03-06-2015 pneumococcal conjuga te vaccine, 13 valent Jose Enrique Crockett II Other [facility] 05-07-2014 tetanus and diphther ia toxoids, adsorbed, preservative free, for adult use (5 Lf of tetanus toxoid and 2 Lf of diphtheria toxoid) Cecilio Benjamin Other [facility] 04-23-2013 tetanus and diphther ia toxoids, adsorbed, preservative free, for adult use (5 Lf of tetanus toxoid and 2 Lf of diphtheria toxoid) Cecilio Benjamin Other [facility] 08-21-2012 pneumococcal polysaccharide vaccine, 23 valent Cecilio Benjamin Other [facility] 12-12-2011 zoster vaccine, live Jose Enrique Leblanc II Other [facility] Payers Date Payer Category Payer Self-pay 2022 Unknown [id number] 2018 Medicare [id number] 2006 Medicare [id number] 2006 Unknown [id number] 1959 Medicare [id number] 2.1 [id number] 1959 Unknown [id number] 2.16. [id number] 1941 Unknown [id number] 2.16.84 0.1.416576.3.579.2.593 1941 Unknown [id number] 2.16.84 0.1.685560.3.579.2.593 1941 Unknown [id number] 2.16.84 0.1.863766.3.579.2.593 1941 Unknown [id number] 2.16.84 0.1.080099.3.579.2.593 1941 Unknown [id number] 2.16.84 0.1.935098.3.579.2.593 1941 Unknown [id number] 2.16. 840.1.517527.3.579.2.196 1941 Unknown [id number] 2.16. 840.1.359196.3.579.2.196 1941 Unknown [id number] 2.16. 840.1.195196.3.579.2.196 1941 Unknown [id number] 2.16. 840.1.576479.3.579.2.196 1941 Unknown [id number] 2.16. 840.1.503261.3.579.2.196 1941 Unknown [id number] 2.16. 840.1.176613.3.579.2.196 1941 Unknown [id number] 2.16. 840.1.484868.3.579.2.196 1941 Unknown [id number] 2.16. 840.1.646130.3.579.2.196 1941 Unknown [id number] 2.16. 840.1.507160.3.579.2.196 1941 Unknown [id number] 2.16. 840.1.766772.3.579.2.196 1941 Unknown [id number] 2.16. 840.1.150172.3.579.2.196 1941 Unknown [id number] 2.16. 840.1.017179.3.579.2.196 Unknown [id number] 2.16.8 40.1.057565.3.579.2.531 Social History Date Type Detail Facility Start: 05-09-2021 End: 03-15-2023 Sex Assigned At [facility] Start: 1940 Sex Assigned At Male [facility] Start: 06-13-2017 End: 01-22-2024 Tobacco smoking status IDIS Never smoked tobacco [facility] Start: 06-13-2017 Tobacco use and exposure Smokeless tobacco non-user [facility] Start: 05-09-2021 Alcohol intake Current drinke r of alcohol (finding) [facility] Start: 12-11-2017 Alcohol Comment [facility] Start: 1940 Sex Assigned At Not on file [facility] Start: 05-09-2021 End: 03-15-2023 History of Social function [facility] Adult Depression Screening Assessment 1 [facility] Start: 10-01-2024 End: 11-06-2024 Sex Male (finding) [facility] Medical Equipment Procedure Code Equipment Code Equipment Origin al Text Equipment Identifier Dates [place] Swivelock Tenodesis 8mm Biocomposite 19.5mm Suture [place] Eyelet - [id number] Start: 06-29-2017 Sleeve V40 +0mm Offset [place] Taper Titanium Adapter Hip - [id number] Start: 01-01-2018 Screw Trident Secur-Fit Torx 6.5mm Titanium 20mm Bone Sterile Acetabular - [id number] Start: 01-01-2018 Clinical Notes 08-25-2022 to [...] airways disease noneactive November 06, 2024 8:56am [facility] Work Phone: 1(383) 106-164002-12-2025 Evaluation note* Diagnosis Onset Date Resolution Status Admit Date Chronic bronchitis, simple acute October 01, 2024 8:30am Chronic kidney disease, stag e 3a acute October 01 8:30am Generalized anxiety disorder acute October 01, 2024 8:30am Hypertension acute September 8:30am IFG (impaired fasting glucose) acute October 01, 2024 8:30am Lumbar spondylolysis acute 2024 8:30am Obstructive sleep apnea acute F 2024 8:30am [facility] Work Phone: 1(750) 470-488206-04-2024 Evaluation note* Diagnosis Onset Date Resolution Status Chronic bronchitis, simple a cute Chronic kidney disease, stage 3a acute Elevated cholesterol acute Generalized anxiety disorder acute Hypertension acute Lumbar spondylolysis acute Obstructive sleep apnea acut e Medicare annual wellness visit, subsequent noneactive [facility] Work Phone: [phone]) 217-821602-09-2024 Evaluation note* Encounter Date Diagnosis Assessment Notes [...] and clinically improving, no further treatment necessary [facility] Other 02-02-2024 Evaluation note* Encounter Date Diagnosis Assessment Notes Treatment Notes Treatment Clinical Notes Sep, Carotid bruit, unspecified laterality (ICD-10 - R09.89) [facility] Other 01-23-2024 Evaluation note* Encounter Date Diagnosis [...] tid Initiate Prednisone _update office on Sunday [facility] Other 01-15-2024 Evaluation note* Encounter Date Diagnosis Assessment Notes Treatment Notes Treatment Clinical Notes Aug, JONATHAN (generalized anxiety disorder) (ICD-10 - F41.1) [facility] Other 12-13-2023 Evaluation note* Encounter Date Diagnosis [...] best 2/3 readings w/ goal < 135/85 [facility] Other 11-28-2023 Evaluation note* Encounter Date Diagnosis [...] daily for blisters and ulcerations. Moisturizers daily [facility] Other 11-21-2023 Evaluation note* Encounter Date Diagnosis [...] Call if develop increased pain or erythema [facility] Other 11-01-2023 Evaluation note* Encounter Date Diagnosis [...] use, the patient reduces the risk for NM, CVA, HTN, cardiac dysrhythmias and sudden cardiac [...] very active. No change in medical treatment [facility] Other 10-27-2023 Evaluation note* Encounter Date Diagnosis Assessment Notes Treatment Notes Treatment Clinical Notes May, JONATHAN (generalized anxiety disorder) (ICD-10 - F41.1) [facility] Other 10-11-2023 Evaluation note* Encounter Date Diagnosis [...] They may safely use Tylenol as needed. [facility] Other 08-01-2023 Miscellaneous Notes* Telephone Encounter - Neida Porter MA - 03/20/2023 12:26 PM EDT DATE OF SERVICE: 03/15/2023 PATIENT'S PHONE NUMBERS: [phone] (home) OR [email or web address] PROVIDER: Dr. Jaeger PROCEDURE: Elective Pain Management Procedure Left message on machine Asked pt to call back and speak with the specialty triage nurse with update. Please obtain percentage better and the duration of improvement. Please inquire if there were any problems afterwards. Neida Brink [facility] Miscellaneous Notes* Telephone Encounter - Linda Knox LPN - 02/26/2023 4:42 PM EDT Spoke to patient in reguards to pre procedure instructions. Pt must have a bulk driver. Pt advised to arrive 30 [...] okay to take. Advised on location of [address] Pt will receive a follow up call several days after by a seo team lead. If you experience any increase in weakness, difficulty walking or significant increase in pain thatlast more than 4 hours, please proceed to the Emergency Room and tell them you had a spine procedure done recently. Additionally, call us and notify us of these symptoms. Please call [phone] if you have any questions. Pt verbalized understanding. documented in [facility] encounterAd[facility]07-[facility]23 Miscellaneous Notes* Telephone Encounter - Linda Knox LPN - 02/19/2023 11:57 AM EDT Order approved Spoke to daughter in rust to pre procedure instructions. Daughter given scheduling number [phone] Pt must have a bulk driver. Pt advised to arrive 30 min prior to the time given by the lumber tying machine operator. Pt advised will also receive a call the day before from the surgery center to confirm date/time. Pt can eat and drink as normal. and Pt can take medications as normal. No alcohol 24 hours prior. Pt is on ASA.- 81 mg okay to take. and must Advised on location of [address] Pt will receive a follow up call several days after by a seo team lead. If you experience any increase in weakness, difficulty walking or significant increase in pain thatlast more than 4 hours, please proceed to the Emergency Room and tell them you had a spine procedure done recently. Additionally, call us and notify us of these symptoms. Please call [phone] if you have any questions. Pt verbalized [...] Celi as patient cannot hear well [phone] Patient has been identified by name and birthdate. Duration of symptoms: N/A Person calling: daughter: Celi Call patient at: N/A [phone] (home) [phone] (cell) Was an appointment scheduled: No Closing statement: Results or non-symptom based questions: Thank you for calling [facility], your call will be returned within the next business day. Camilla Jarrell Pss documented in this encounterAd[facility]06-28-2023 Evaluation note* Encounter Date Diagnosis Assessment [...] use, the patient reduces the risk for NM, CVA, HTN, cardiac dysrhythmias and sudden cardiac [...] (ICD-10 - F41.1) Healthy diet, keep active [facility] Other 06-22-2023 Evaluation note* Encounter Date Diagnosis Assessment Notes Treatment Notes Treatment Clinical Notes Jan, Elevated cholesterol (ICD-10 - E78.00) Jan, Stage 3a chronic kidney disease (ICD-10 - N18.31) Jan, Primary hypertension (ICD-10 - I10) Jan, Screening PSA (prostate specific antigen) (ICD-10 - Z12.5) Jan, High risk medication use (ICD-10 - Z79.899) [facility] Other 06-15-2023 Evaluation note* Encounter Date Diagnosis Assessment Notes Treatment Notes Treatment Clinical Notes Jan, Primary osteoarthrit is of left knee (ICD-10 - M17.12) Jan, Chondrocalcinosis of knee, left (ICD-10 - M11.262) Jan, Other 1. We had a kdaen g discussion with the patient today concerning [...] this time 6. Follow up as needed [facility] Other 04-24-2023 Evaluation note* Encounter Date Diagnosis [...] use of statin, experiencing ADR and stopped [facility] Other 03-23-2023 Evaluation note* Encounter Date Diagnosis [...] - M17.12) Quad exercises, ice/heat and Tylenol [facility] Other 03-23-2023 Evaluation note* Encounter Date Diagnosis [...] injection well. 6. Follow up as needed [facility] Other 02-23-2023 Evaluation note* Encounter Date Diagnosis [...] use, the patient reduces the risk for NM, CVA, HTN, cardiac dysrhythmias and sudden cardiac [...] tract symptoms (ICD-10 - N40.1) Symptoms tolerable [facility] Other 02-08-2023 Evaluation note* Encounter Date Diagnosis Assessment Notes Treatment Notes Treatment Clinical Notes Sep, Elevated cholesterol (ICD-10 - E78.00) Sep, Stenosis of right carotid artery (ICD-10 - I65.21) Sep, Retinal hemorrhage of right eye (ICD-10 - H35.61) [facility] Other 01-06-2023 Evaluation note* Encounter Date Diagnosis Assessment Notes Treatment Notes Treatment Clinical Notes Aug, Carotid bruit, unspecified laterality (ICD-10 - R09.89) [facility] Other Evaluation noteNo assessment information available [facility] Work Phone: Evaluation noteNo [employer] Other Evaluation note* Diagnosis Spinal stenosis, lumbar region with neurogenic claudication- Primary Lumbar radiculopathy, chronic Thoracic or lumbosacral neuritis or radiculitis, unspecified [facility] Diagnosis Pseudoclaudication syndrome- Primary Spinal stenosis, lumbar region, with neurogenic claudication Lumbar radiculopathy Thoracic or lumbosacral neuritis or radiculitis, unspecified Pseudoclaudication syndrome Spinal stenosis, lumbar region, with neurogenic claudication Lumbar radiculopathy Thoracic or lumbosacral neuritis or radiculitis, unspecified [facility] Diagnosis Onset Date Resolution Status Chronic bronchitis, simple a cute Chronic kidney disease, stage 3a acute Elevated cholesterol acute Generalized anxiety disorder acute Hypertension acute Lumbar spondylolysis acute Obstructive sleep apnea acut e [facility] Work Phone: History general Narrative [...] JANELLE 06/2017 Hospitalization History see surgical history [facility] Other Hospital Discharge instructionsAmbulatory Orders* Referral to Pain Management Location: None Selected [facility] Work Phone: Summary Purpose Family [...] section and content) DATE CREATED AUTHOR 02/06/2018 [facility] DATE CREATED AUTHOR AUTHOR'S ORGANIZ ATION 06/10/2018 [facility] DATE CREATED AUTHOR AUTHOR'S ORGANIZ ATION 11/06/2022 [facility] DATE CREATED AUTHOR AUTHOR'S ORGANIZ ATION 12/21/2022 [facility] DATE CREATED AUTHOR AUTHOR'S ORGANIZ ATION 03/15/2023 [facility] DATE CREATED AUTHOR AUTHOR'S ORGANIZ ATION 03/22/2023 [facility] DATE CREATED AUTHOR AUTHOR'S ORGANIZ ATION 11/23/2024 [facility] REASON FOR VISIT (unrecogniz ed section and [...] Enrique Leblanc II, MD Attending Provider Active [employer] 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 Relationship Specialty Start Date End Date Cecilio Benjamin DO PCP - General Internal Medicine 09/04/13 [employer] Relationship Specialty Start Date End Date Cecilio Benjamin DO PCP - General Internal Medicine 09/04/13 [employer] Lecturer Relationship Specialty Start Date End Date Cecilio Benjamin DO PCP - General Internal Medicine 09/04/13 [employer] Relationship Specialty Start Date End Date Cecilio [...] or prosecute any alcohol or drug abuse patient.[facility] HospitalIn the event this information is protected by the Federal Confidentiality of Alcohol and Drug Abuse Patient Records regulations: The Federal rules restrict any use of the information to criminally investigate or prosecute any alcohol or drug abuse patient.[facility] HospitalIn the event this information is protected by the Federal Confidentiality of Alcohol and Drug Abuse Patient Records regulations: The Federal rules restrict any use of the information to criminally investigate or prosecute any alcohol or drug abuse patient.[facility] HospitalIn the event this information is protected by the Federal Confidentiality of Alcohol and Drug Abuse Patient Records regulations: The Federal rules restrict any use of the information to criminally investigate or prosecute any alcohol or drug abuse patient.[facility] FOR RECORDS PERTAINING TO PATIENTS WHO [...] BE BASED ON THE PRIMARY CLINICAL RECORDS. [facility] [place] [employer] provides no warranty or guarantee of the accuracy or completeness of information in this document.
--- NOTE | 2024-12-05 10:51 | ECG_ITS ---
[facility] Test Date: 2024-12-05 Pat Name: NEISHA MITCHELL Department: Room: - Gender: Male Lead Nuclear Medicine Technologist: : 1940 Requested By: 1030 Order Number: [id number] Reading MD: GIACOMO MYLES M.D. Measurements Intervals [place] Rate: 66 P: 50 NM: 146 QRS: 43 QRSD: 76 T: 10 QT: 382 QTc: 395 Interpretive Statements 1100 Sinus rhythm 2420 RSR (QR) in lead V1/V2, consistent with right ventricular conduction delay 4068 Nonspecific [place] abnormality 9130 borderline ECG Compared to ECG 08/10/2022 15:04:09 No significant changes Electronically Signed On 12-05-2024 11:56:22 EDT by GIACOMO MYLES M.D.
--- NOTE | 2024-12-05 10:51 | XR_ITS ---
The [place] [id number] Patient Name: NEISHA MITCHELL MRN: [id number] date: 1940 Sex: M Assigned Patient Location: ER Current Patient Location: ER Accession/Order Number: [id number] Exam Date: 12/05/2024 11:31 Report Date: 12/05/2024 11:36 At the request of: THERESA LUCAS MD Procedure: XR chest 1V PORTABLE AP ERECT CHEST 19 hours CLINICAL HISTORY: Shortness of breath, wheezing and hoarseness. COMPARISON: 08/10/[address] 07/22/2021 The heart is normal in size. There is no vascular congestion. Minor basilar atelectasis or scarring is seen. No consolidation is noted. Central and peripheral granulomas are again visualized on the right. There is no sizable effusion or pneumothorax. The osseous structures are intact. XR/XR chest 1V IMPRESSION: NO ACUTE FINDINGS Impression dictated by: Ros Foster M.D.12/05/2024 11:36 AM Dictation Location: [place] [address] Electronically authenticated by: [id number] Y Date: 12/05/2024 11:36
--- NOTE | 2024-12-05 10:52 | ED.GENADUL1 ---
HPI HPI - General Adult General Chief complaint: Shortness of Breath/Dyspnea Stated complaint: MUSCLE CONTRACTIONS Time Seen by Provider: 12/05/24 10:41 Source: patient Mode of arrival: Wheelchair History of Present Illness HPI narrative: 83-year-old man presents to the emergency department for cough and shortness of breath. He has had this for about a week and his voice has been hoarse. She recently flew home from the [facility], he did not drive. Intermittently he has been having muscle cramps primarily in his thighs. No calf pain or swelling. He does not complain to me of chest pain and he has not had a fever or hemoptysis. Related Data Home Medications ?Medication ?Instructions ?Recorded ?Confirmed amlodipine 2.5 mg tablet 2.5 mg PO DAILY 01/28/24 12/05/24 clonazepam 0.5 mg tablet 0.5 mg PO DAILY 01/28/24 12/05/24 escitalopram oxalate 10 mg tablet 10 mg PO DAILY 01/28/24 12/05/24 (Lexapro) fluticasone propionate 110 1 inh inhalation BID 01/28/24 12/05/24 mcg/actuation HFA aerosol inhaler nabumetone 500 mg tablet 500 mg PO BID 01/28/24 12/05/24 omeprazole 20 mg capsule,delayed 20 mg PO DAILY 01/28/24 12/05/24 release tamsulosin 0.4 mg capsule (Flomax) 0.4 mg PO DAILY 01/28/24 12/05/24 albuterol sulfate 2.5 mg/3 mL 2.5 mg inhalation Q4H PRN 12/05/24 12/05/24 (0.083 %) solution for nebulization shortness of breath or wheezing fluticasone 250 mcg-salmeterol 50 1 inh inhalation BID 12/05/24 12/05/24 mcg/dose blistr powdr for inhalation Allergies Allergy/AdvReac Type Severity Reaction Status Date / Time bacitracin AdvReac Mild Rash Verified 11/17/24 11:07 Opioid HPI Opioid Management Most Recent Opioid Data: Last Pain Scale 5 11/17/24 11:10 11/17/24 Review of Systems ROS Narrative A ten point review of systems is negative except as noted above. PFSH PFSH Medical History Low back pain ?M54.50 - Low back pain, unspecified (ICD-10) Heartburn ?R12 - Heartburn (ICD-10) Sleep apnea ?G47.30 - Sleep apnea, unspecified (ICD-10) COPD (chronic obstructive pulmonary disease) ?J44.9 - Chronic obstructive pulmonary disease, unspecified (ICD-10) Asthma ?J45.909 - Unspecified asthma, uncomplicated (ICD-10) Hypertension ?I10 - Essential (primary) hypertension (ICD-10) Surgical History H/O cervical spine surgery ?Z98.890 - Other specified postprocedural states (ICD-10) S/P tonsillectomy and adenoidectomy ?Z90.89 - Acquired absence of other organs (ICD-10) History of ankle surgery ?Z98.890 - Other specified postprocedural states (ICD-10) S/P cholecystectomy ?Z90.49 - Acquired absence of other specified parts of digestive tract (ICD-10) S/P total hip arthroplasty ?Z96.649 - Presence of unspecified artificial hip joint (ICD-10) History of surgery on upper extremity ?Z98.890 - Other specified postprocedural states (ICD-10) Social History Little interest or pleasure in doing things: not at all Feeling down, depressed, or hopeless: not at all Exam Narrative Exam Narrative: Nurses note and vital signs reviewed and patient is not hypoxic. General: The patient appears well and in no apparent distress. Patient is resting comfortably on cart. Skin: Warm, dry, no pallor noted. There is no rash noted. Head: Normocephalic, atraumatic Eye: Normal conjunctiva, no drainage Ears, Nose, Mouth, and Throat: oral mucosa is moist. Nares patent. Cardiovascular: Regular Rate and Rhythm Respiratory: Patient is in no distress, no accessory muscle use, lungs are clear to auscultation, no wheezing, rales or rhonchi Back: non-tender GI: Soft and nontender Musculoskeletal: The patient has no evidence of calf tenderness, no pitting edema, symmetrical pulses noted bilaterally Neurological: A&O x4, normal speech; upper and lower extremity strength intact Psychiatric: Cooperative Constitutional Vital Signs, click to edit/add: Last Vital Signs Temp 97.8 F 12/05/24 10:30 Pulse 65 12/05/24 12:00 Resp 19 12/05/24 12:00 BP 146/74 H 12/05/24 12:00 Pulse Ox 94 L 12/05/24 11:30 O2 Del Method Room Air 12/05/24 10:30 Course Vital Signs Vital signs: Vital Signs Temperature 97.8 F 12/05/24 10:30 Pulse Rate 74 12/05/24 10:30 Respiratory Rate 18 12/05/24 10:30 Blood Pressure 164/73 H 12/05/24 10:30 Pulse Oximetry 97 12/05/24 10:30 Oxygen Delivery Method Room Air 12/05/24 10:30 Temperature 97.8 F 12/05/24 10:30 Pulse Rate 65 12/05/24 12:00 Respiratory Rate 19 12/05/24 12:00 Blood Pressure 146/74 H 12/05/24 12:00 Pulse Oximetry 94 L 12/05/24 11:30 Oxygen Delivery Method Room Air 12/05/24 10:30 Medical Decision Making MDM Narrative Medical decision making narrative: His workup including CT of the chest is negative. Additionally his calcium, magnesium, and potassium are all normal. No specific cause for symptoms is found and he likely has a viral illness. Treatment diagnosis and follow-up were discussed with the patient and his family. Differential Diagnosis Differential Diagnosis: Pneumonia, COVID, influenza, electrolyte imbalance Lab Data Lab results reviewed: Yes I reviewed the patient's lab results Labs: Lab Results 12/05/24 12/05/24 Range/Units 11:00 11:05 WBC 5.5 (4.0-11.0) 10^3/uL RBC 4.36 L (4.70-6.10) 10^6/uL Hgb 14.1 (14.0-18.0) g/dL Hct 41.1 L (42.0-54.0) % MCV 94.3 H (80.0-94.0) fL MCH 32.3 (25.9-34.0) pg MCHC 34.3 (29.9-35.2) g/dL RDW 12.7 (11.0-15.0) % Plt Count 104 L (150-450) 10^3/uL MPV 10.3 (9.5-13.5) fL Neut % (Auto) 67.7 (43.0-75.0) % Lymph % (Auto) 16.7 L (20.5-60.0) % [place] % (Auto) 10.1 (1.7-12.0) % Eos % (Auto) 4.8 (0.9-7.0) % Baso % (Auto) 0.5 (0.2-2.0) % Neut # (Auto) 3.7 (1.4-6.5) 10^3/uL Lymph # (Auto) 0.9 L (1.2-3.8) 10^3/uL [place] # (Auto) 0.6 (0.3-0.8) 10^3/uL Eos # (Auto) 0.3 (0.0-0.7) 10^3/uL Baso # (Auto) 0.0 (0.0-0.1) 10^3/uL Abs Immat Gran (auto) 0.01 (0.00-0.03) 10^3/uL Imm/Tot Granulo (auto) 0.2 (0.0-0.5) % Sodium 139 (136-145) mmol/L Potassium 4.2 (3.5-5.1) mmol/L Chloride 103 (98-107) mmol/L Carbon Dioxide 29.1 (21.0-32.0) mmol/L Anion Gap 11.1 BUN 24.0 H (7.0-18.0) mg/dL Creatinine 1.33 H (0.70-1.30) mg/dL Est GFR ( Amer) >60 (>=60 mL/min/1.73m^2) Est GFR (Non-Af Amer) 51 L (>=60 mL/min/1.73m^2) BUN/Creatinine Ratio 18.0 Glucose 101 (74-106) mg/dL Calcium 8.9 (8.5-10.1) mg/dL Magnesium 1.8 (1.8-2.4) mg/dL Troponin I High Sens 15.5 (4.0-76.1) pg/mL Influenza Type A Ag Negative Influenza Type B Ag Negative SARS-CoV-2 Ag (CV2AG) Negative (NEGATIVE) Imaging Data Chest x-ray: Radiologist's impression: ITS Impressions Chest X-Ray 12/05/24 10:51 IMPRESSION: NO ACUTE FINDINGS Impression dictated by: Ros Foster M.D.12/05/2024 11:36 AM Dictation Location: [place] [address] Electronically authenticated by: [id number] Y Date: 12/05/2024 11:36 CTA chest: No acute process ECG Data Attestation: I personally reviewed and interpreted this ECG as follows: (EKG on my interpretation shows normal sinus rhythm with rate of 66 and no acute change) Discharge Plan Discharge Chief Complaint: Shortness of Breath/Dyspnea Clinical Impression: Viral illness, Bilateral leg cramps Patient Disposition: Home, Self-Care Time of Disposition Decision: 12:26 Condition: Good Mode of Transportation: Private Vehicle Prescriptions / Home Meds: No Action amlodipine 2.5 mg tablet 2.5 mg PO DAILY nabumetone 500 mg tablet 500 mg PO BID omeprazole 20 mg capsule,delayed release(DR/EC) 20 mg PO DAILY fluticasone propionate 110 mcg/actuation HFA aerosol inhaler 1 inh inhalation BID tamsulosin [Flomax] 0.4 mg capsule 0.4 mg PO DAILY escitalopram oxalate [Lexapro] 10 mg tablet 10 mg PO DAILY clonazepam 0.5 mg tablet 0.5 mg PO DAILY albuterol sulfate 2.5 mg /3 mL (0.083 %) solution for nebulization 2.5 mg inhalation Q4H PRN (Reason: shortness of breath or wheezing) fluticasone propion-salmeterol 250-50 mcg/dose blister with device 1 inh INHALATION BID Print Language: Angolan Instructions: Leg Cramps (ED), Viral Syndrome (ED) Referrals: Cecilio Benjamin DO [Primary Care Provider] - 1 week
[2024-12-05 11:00] VITALS: PULSE 66; O2SAT 97
[2024-12-05 11:07] VITALS: BP 143/85; PULSE 68; O2SAT 94
[2024-12-05 11:11] LABS: Basophils Percent Auto 0.5 % (0.2-2.0); Eosinophils Absolute Auto 0.3 10^3/uL (0.0-0.7); Eosinophils Percent Auto 4.8 % (0.9-7.0); Hematocrit 41.1 % (42.0-54.0); Hemoglobin 14.1 g/dL (14.0-18.0); Immature Granulocytes Abs Auto 0.01 10^3/uL (0.00-0.03); Immature Granulocytes Pct Auto 0.2 % (0.0-0.5); Lymphocytes Absolute Auto 0.9 10^3/uL (1.2-3.8); Lymphocytes Percent Auto 16.7 % (20.5-60.0); Mean Corpuscular HGB Conc 34.3 g/dL (29.9-35.2); Mean Corpuscular Hemoglobin 32.3 pg (25.9-34.0); Mean Corpuscular Volume 94.3 fL (80.0-94.0); Mean Platelet Volume 10.3 fL (9.5-13.5); Monocytes Absolute Auto 0.6 10^3/uL (0.3-0.8); Monocytes Percent Auto 10.1 % (1.7-12.0); Neutrophils Absolute Auto 3.7 10^3/uL (1.4-6.5); Neutrophils Percent Auto 67.7 % (43.0-75.0); Platelet Count 104 10^3/uL (150-450); Red Blood Count 4.36 10^6/uL (4.70-6.10); Red Cell Distribution Width 12.7 % (11.0-15.0); White Blood Count 5.5 10^3/uL (4.0-11.0)
[2024-12-05 11:23] LABS: Influenza Virus A Antigen Negative; Influenza Virus B Antigen Negative; Internal Control Within Normal Limits; SARS-CoV-2 Ag NEGATIVE (NEGATIVE)
[2024-12-05 11:30] VITALS: BP 131/68; PULSE 64; O2SAT 94
[2024-12-05 11:31] LABS: Anion Gap 11.1; Calcium 8.9 mg/dL (8.5-10.1); Carbon Dioxide 29.1 mmol/L (21.0-32.0); Chloride 103 mmol/L (98-107); Estimated GFR (African America >60 (>=60 mL/min/1.73m^2); Estimated GFR (Non-African Ame 51 (>=60 mL/min/1.73m^2); Glucose 101 mg/dL (74-106); Magnesium 1.8 mg/dL (1.8-2.4); Potassium 4.2 mmol/L (3.5-5.1); Sodium 139 mmol/L (136-145); Troponin I High Sensitivity 15.5 pg/mL (4.0-76.1)
[2024-12-05 12:00] VITALS: BP 146/74; PULSE 65
== END 2024-12-05 12:40 | disposition home or self-care (01) ==
PROVIDERS: Emergency Provider Emergency Medicine; PCP Internal Medicine
DX: B34.9 Viral infection, unspecified (principal); R25.2 Cramp and spasm; R06.02 Shortness of breath; Z90.49 Acquired absence of other specified parts of digestive tract; Z96.649 Presence of unspecified artificial hip joint
CPT/HCPCS: 36415; 71045; 71275; 80048; 81001; 83735; 84484; 85025; 87804; 87811; 93005; 99285; Q9967

== ENCOUNTER 2024-12-17 10:03 | Outpatient (OUT) | payer MEDICARE, OTHER, SELFPAY ==
--- NOTE | 2024-12-17 | MR_ITS ---
The [address] [address] Patient Name: NEISHA MITCHELL MRN: [id number] date: 1940 Sex: M Assigned Patient Location: MRI Current Patient Location: MRI Accession/Order Number: [id number] Exam Date: 12/17/2024 11:44 Report Date: 12/17/2024 11:50 At the request of: ACACIA ROBIN NP Procedure: MR lumbar spine wo con EXAMINATION: MRI LUMBAR SPINE WITHOUT IV CONTRAST CLINICAL HISTORY: Back pain radiating into both legs. COMPARISON: Lumbar spine MRI 02/07/2024 TECHNIQUE: Multiecho imaging was performed in the sagittal and axial planes without contrast administration. FINDINGS: Vertebral body heights appear maintained. No bone marrow edema is present. Diffuse disc desiccation. Spinal cord terminates in normal position without abnormal cord signal. No paraspinal mass. Visualized retroperitoneum demonstrates no acute process. At L1-L2: Diffuse broad-based disc bulge is present with ligamentum flavum hypertrophy and facet joint degenerative changes causing mild canal and moderate bilateral neural foraminal stenosis. At L2-L3: Diffuse broad-based disc bulge is present with ligamentum flavum hypertrophy and facet joint degenerative changes causing mild canal, severe right and moderate left neural foraminal stenosis. At L3-L4: Diffuse broad-based disc bulge is present with ligamentum flavum hypertrophy and facet joint degenerative changes causing moderate canal and bilateral neural foraminal stenosis. At L4-L5: Diffuse broad-based disc bulge is present with ligamentum flavum hypertrophy and facet joint degenerative changes causing moderate canal and severe left-sided neural foraminal stenosis. At L5-S1: Grade 1 spondylolisthesis of L5 on S1 due to bilateral pars defects. Facet joint degenerative changes. No significant canal or neural foraminal stenosis. MR/MR lumbar spine wo con IMPRESSION: Multilevel degenerative disease as described above, worst at L3-L4 and L4-L5. Findings are similar to the prior study. Impression dictated by: Candelario Gomez Jr., D.O. 12/17/2024 11:50 AM Dictation Location: [place] [address] Electronically authenticated by: [id number] Y Date: 12/17/2024 11:50
--- NOTE | 2024-12-17 | XR_ITS ---
[place] [address] Patient Name: NEISHA MITCHELL MRN: [id number] date: 1940 Sex: M Assigned Patient Location: MRI Current Patient Location: MRI Accession/Order Number: [id number] Exam Date: 12/17/2024 11:51 Report Date: 12/17/2024 11:52 At the request of: ACACIA ROBIN NP Procedure: XR lumbar spine 6V w bending LUMBAR SPINE - 6 views CLINICAL HISTORY: LUMBAR STENOSIS COMPARISON: None FINDINGS: Scoliosis. Vertebral body heights appear maintained. Scattered endplate and facet joint degenerative changes with moderate disc space narrowing L2-L3. No pathological motion. XR/XR lumbar spine 6V w bending IMPRESSION: SCOLIOSIS WITH DEGENERATIVE CHANGES AND MODERATE DISC SPACE NARROWING L2-L3. Impression dictated by: Candelario Gomez Jr., D.O. 12/17/2024 11:52 AM Dictation Location: [place] [address] Electronically authenticated by: [id number] Y Date: 12/17/2024 11:52
== END 2024-12-17 10:04 | disposition home or self-care (01) ==
LOC: MRI 10:03
PROVIDERS: PCP Internal Medicine; Visit Provider Nurse Practitioner
DX: M48.062 Spinal stenosis, lumbar region with neurogenic claudication (principal); M51.369 Other intervertebral disc degeneration, lumbar region without mention of lumbar back pain or lower extremity pain; M41.86 Other forms of scoliosis, lumbar region
CPT/HCPCS: 72114; 72148

== ENCOUNTER 2025-01-05 07:53 | Day surgery (SDC) | payer MEDICARE, OTHER, SELFPAY ==
--- OUTSIDE RECORDS SUMMARY | 2025-01-05 08:06 | XMS_ITS | CCD ---
Author Organization [facility] Care Team Providers Care Back Panel Padder Name Role Phone CECILIO [phone] UNKNOWN Unavailable Unavailable BETH GOODEN Unavailable Unavailable [...] MD Jose Enrique Leblanc II Attending Provider [phone] Jose Enrique Leblanc II Unavailable [phone] Jose Enrique Leblanc II Attending UnavailJose Enrique Malin II Admitting UnavailCecilio Mcgrath DO Primary Care Provider DAVID JAEGER Admitting Unavailable DAVID JAEGER Attending Unavailable CECILIO BENJAMIN Primary Care Unavailable Griselda WHARTON, aMddie Carreno Attending Unavailable Griselda WHARTON, Maddie Carreno Attending Unavailable Griselda WHARTON, Maddie Carreno Attending Unavailable Griselda WHARTON, Maddie Carreno Attending Unavailable Griselda WHARTON, Maddie Carreno Attending Unavailable Giedraitis , Maddie Carreno Attending Unavailable Giedraitis , Andbeto Carreno Attending Unavailable Giedraitis , Maddie Carreno Attending Unavailable Giedraitis , Andbeto Carreno Attending Unavailable Giedraitis , Andbeto Carreno Attending Unavailable Giedraitis , Andbeto Carreno Attending Unavailable Giedraitis , Maddie Carreno Attending Unavailable Allergies Allergy Classification Reported Allergen(s) Allergy Type Date of Onset Reaction(s) Facility (7 sources) bacitracin; Translations: [bacitracin] Drug Allergy 09-11-2013 Unknown [facility] Repository (19 sources) Albuterol Drug Allergy Unknown [employer] Other (20 sources) HMG-CoA reductase inhibitor Drug allergy Unknown [employer] Other Medications Current Medications Medication Drug Class(es) [...] Start: 01-02-2018 take 2 tablets by [facility] every eight hours acetaminophen (TYLENOL) 500 [...] uth every 8 hours. (Mild pain reliever) albuterol 0.83 mg/ml inhalation solution (20 sources) beta2-Adrenergic Agonist Start: End: take 2.5 mg by inhalation every four to six hours as needed for wheezing Albuterol Sulfate 2.5 mg /3 mL (0.083 %) solution for nebulization Active 2.5 MG INHALATION EVERY 4-6 HOURS as needed for shortness of breath or wheezing 180 November 11, 2024 5:27pm Start: 10-10-2023 End: 01-22-2024 take 1 puff(s) by inhalation every four to six hours as needed for wheezing Albuterol Sulfate 90 mcg/actuation HFA aerosol inhaler Discontinued 2 PUFF INHALATION EVERY 4-6 HOURS as needed for shortness of breath or wheezing 8.5 90 October 19, 2023 11:09am January 22, 2024 9:29am Start: 09-28-2023 Albuterol Sulf ate (2.5 MG/3ML) 0.083% 3 mL as needed Inhalation every 6 hrs Sep, Active Start: 07-22-2021 albuterol HFA (PROVENTIL HFA, VENTOLIN HFA) 90 mcg/actuation inhaler aspirin 81 mg chewable tablet (7 sources) Platelet Aggregation Inhibitor, Nonsteroidal Anti-inflammatory Drug [...] Active doxycycline hyclate 100 mg oral capsule (20 sources) Tetracycline-class Drug Start: 11-06-2024 End: 12-09-2024 take 1 capsule by mouth twice daily Doxycycline Hyclate 100 mg capsule Active 100 MG PO Twice daily December 09, 2024 4:30pm Start: 10-17-2023 End: 10-19-2023 take 1 capsule by mouth twice daily Doxycycline Hyclate 100 mg capsule Discontinued 100 MG PO Twice daily October 17, 2023 1:00am October 19, 2023 11:06am Start: 07-10-2023 take 1 capsule by [facility] every twelve hours Doxycycline Hyclate 100 MG [...] Take 10 mg by mouth once daily. Fluticasone Propion-Salmeterol (20 sources) Corticosteroid, beta2-Adrenergic Agonist Start: take 1 puff(s) by inhalation every twelve hours Fluticasone Propion-Salmeterol (Advair Hfa) 115-21 mcg/actuation HFA aerosol inhaler Active 2 PUFF INHALATION Every 12 hours 08 18November 11, 2024 12:00am Start: 11-07-2024 End: 11-11-2024 Fluticasone Propion-Salmeter ol 113-14 mcg/actuation aerosol powdr breath activated Discontinued 2 INH INHALATION Every 12 hours 09 18November 07, 2024 12:00am November 11, 2024 4:28pm Start: 01-22-2024 End: 11-07-2024 Fluticasone Propion-Salmeter ol (Wixela Inhub) 250-50 mcg/dose blister with device Discontinued 1 INH INHALATION Twice daily 60 30 January 22, 2024 12:00am November 07, 2024 4:41pm take 1 puff(s) by in halation twice daily Wixela Inhub 250-50 MCG/ACT 1 puff Inhalation Twice a day Active take 1 puff(s) by in halation once daily FLUTICASONE/SALMETEROL (ADVAIR DISKUS INHALATION) Inhale 1 Puff as instructed once daily. 0 Active Comment on above: Inhale 1 Puff as ins tructed once daily. Inhalational Spacing Device spacer (1 source) Start: 12-04-2024 Inhalational Spacing Device spacer Active 0 .Route 1 December 04, 2024 12:00am As directed mupirocin 0.02 mg/mg topical ointment (20 sources) [...] mg tablet predniSONE 20 mg oral tablet (5 sources) Start: 11-06-2024 Prednisone 20 mg tablet [...] Comment on above: Take 4 tablets by [facility] 1 hour prior to procedure and 2 tablets by mouth 6 hours after procedure Calcium Carbonate / vitamin D3 (4 sources) take 1 tablet by mouth once daily CALCIUM CARBONATE/VITAMIN D3 (VITAMIN D-3 ORAL) Take 1 tablet by mouth once daily. 0 Active Comment on above: Take 1 tablet by christen once daily. clonazePAM 0.5 mg oral tablet (20 sources) Benzodiazepine Start: 10-17-2023 End: 10-01-2024 take 1 tablet by mouth once daily at bedtime Clonazepam 0.5 mg tablet Discontinued 0.5 MG PO Daily at bedtime 90 90 October 19, 2023 11:06am April 02, 2024 1:34pm Start: 09-03-2023 take 1 tablet by christen every twenty-four hours clonazePAM 0.5 MG 1 tablet at bedtime Orally Once a day for 90 days Aug, Active Start: 06-15-2023 take 1 tablet by christen every twenty-four hours clonazePAM 0.5 MG 1 tablet at bedtime Orally Once a day May, Active Start: 02-14-2023 take 1 tablet by christen every twenty-four hours clonazePAM 0.5 MG 1 [...] Comment on above: Take 1 capsule by [facility] twice daily. (Stool softener) ferrous sulfate 325 mg oral tablet (1 source) Start: End: take 1 tablet by mouth twice daily at mealtime ferrous sulfate 325 mg (65 mg iron) tablet Take 1 tablet by mouth twice daily with meals. (Iron supplement) 30 tablet 0 01/02/2018 02/19/2023 Discontinued Comment on above: Take [address] [facility] twice daily with meals. (Iron supplement) FISH OIL-DHA-EPA ORAL (4 sources) take 1 capsule by mouth once daily FISH OIL-DHA-EPA ORAL Take 1 capsule by mouth once daily. 0 Active Comment on above: Take 1 capsule by [facility] once daily. hydrocortisone 25 mg/ml topical cream (3 sources) Corticosteroid Start: 024 End: Hydrocortisone (Proctosol Hc) 2.5 % cream with perineal applicator Discontinued 1 APPLIC MN 1 to 2 times per day as needed for hemorrhoids August 18, 2024 1:00am October 01, 2024 10:11am Inhalational Spacing Device (Aerochamber Mini) spacer (1 source) Start: End: Inhalational Spacing Device (Aerochamber Mini) spacer Discontinued 0 .ROUTE .MEDSUPPLY December 03, 2024 12:00am December 04, 2024 10:16am As directed MELATONIN, BULK, MISC (5 sources) MELATONIN, BULK, MISC Take 2 tablets by mouth. 0 Active End: 02-19-2023 take 2 tablets by mouth once daily at bedtime MELATONIN, BULK, MISC Take 2 tablets by mouth daily at bedtime. 0 02/19/2023 Discontinued Comment on above: Take 2 tablets by [facility]. Take 2 tablets by [facility] daily at bedtime. methylPREDNISolone (1 source) Corticosteroid [...] Problem Date Documented Date Episodic/Chronic Acute bronchitis (14 sources) Acute bronchitis; Translations: [Acute bronchitis due [...] disease, unspecified] Chronic Diabetes mellitus without complication (7 sources) Hyperglycemia; Translations: [Impaired fasting glucose] 05-28-2024 [...] [Spondylolysis, lumbar region] Episodic Other acquired deformities (5 sources) Spondylolysis; Translations: [Spondylolysis, lumbar region] 10-18-2023 Episodic Other acquired deformities (5 sources) Spondylolysis, lumbar region; Translations: [Acquired spondylolisthesis] 01-22-2024 Episodic Other aftercare (2 sources) Other sandwich wrapper (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 therapy; Translations: [OTH ASSISTED CURRENT DRUG THERAPY] Onset: 11-06-2022 Episodic Other [...] Episodic Other nutritional; endocrine; and metabolic disorders (3 sources) Weight decreased; Translations: [Abnormal weight loss] [...] (adult) (pediatric)] 01-02-2018 Chronic Residual codes; unclassified (8 sources) Obstructive sleep apnea (adult) (pediatric); Translations: [...] Test Name Value Interpretation Reference Range Facility Basophils Auto (Bld) [#/Vol] on 12-05-2024 Basophils (Bld) [#/Vol] Automated basophil count 0.0-0.1 [facility] Basophils/100 WBC Auto (Bld) on 12-05-2024 Basophils/100 WBC (Bld) Automated basophil % 0.2-2.0 [facility] Eosinophils/100 WBC Auto (Bl d)on 12-05-2024 Eosinophils/100 WBC (Bld) Automated eosinophil % 0.9-7.0 [facility] Erythrocyte distribution wid th Auto (RBC) [Ratio]on 12-05-2024 Erythrocyte distribution width (RBC) [Ratio] Erythrocyte distribution width [Ratio] by Automated count 11.0-15.0 [facility] Estimated glomerular filtrat ion rate (GFR) non- Americanon 12-05-2024 GFR/1.73 sq M.predicted among non-blacks MDRD (S/P/Bld) [Vol rate/Area] Estimated glomerular filtration rate (GFR) non- Low >=60 mL/min/1.73m 2 [facility] Hematocrit Auto (Bld) [Volum e fraction]on 12-05-2024 Hematocrit (Bld) [Volume fraction] Hematocrit [Volume Fraction] of Blood by Automated count Low 42.0-54.0 [facility] Hemoglobin [Mass/volume] in Bloodon 12-05-2024 Hemoglobin (Bld) [Mass/Vol] Hemoglobin [Mass/volume] in Blood 14.0-18.0 [facility] Laboratory - Chemistry and C hemistry - challengeon 12-05-2024 Calcium [Mass/Vol] 8.9 mg/dL 8.5-10.1 [facility] Chloride [Moles/Vol] 103 mmol/L 98-107 [facility] CO2 [Moles/Vol] 29.1 mmol/L 21.0-32.0 [facility] Creatinine [Mass/Vol] 1.33 mg/dL High 0.70-1.30 [facility] GFR/1.73 sq M.predicted MDRD (S/P/Bld) [Vol rate/Area] mL/min/{1.73_m2} >=60 mL/min/1.73m 2 [facility] Glucose [Mass/Vol] 101 mg/dL 74-106 [facility] Magnesium [Mass/Vol] 1.8 mg/dL 1.8-2.4 [facility] Potassium [Moles/Vol] 4.2 mmol/L 3.5-5.1 [facility] Sodium [Moles/Vol] 139 mmol/L 136-145 [facility] Urea nitrogen [Mass/Vol] 24.0 mg/dL High 7.0-18.0 [facility] Urea nitrogen/Creatinine [Mass ratio] 18.0 mg/mg [facility] Laboratory - Hematology and Cell countson 12-05-2024 Immature granulocytes/100 WBC (Bld) 0.2 % 0.0-0.5 [facility] - Microbiology an d Antimicrobial susceptibilityon 12-05-2024 SARS-CoV-2 (COVID-19) RNA RICKY+probe Ql (Unsp spec) Negative NEGATIVE [facility] Comment on above: This test has not be en FDA cleared or approved, but has beenauthorized by the FDA under an Emergency Use Authorization(EUA) for use by authorized laboratories certified underIA that meet the requirements to perform moderate or highcomplexity testing. This test has been authorized only forthe detection of proteins from SARS-CoV-2, not for any otherviruses or pathogens. The emergency use of this test isauthorized for the duration of the declaration thatcircumstances exist justifying the authorization ofemergency use of in vitro diagnostic tests for detectionand/or diagnosis of Covid-19 under section 564(b)(1) of theAct, 21 U.S.C. 360bbb-3(b)(1), unless the declaration isterminated or authorization is revoked sooner. Leukocytes [#/volume] correc poncho for nucleated erythrocytes in Blood by Automated counon 12-05-2024 WBC corrected for nucl RBC Auto (Bld) [#/Vol] Leukocytes [#/volume] corrected for nucleated erythrocytes in Blood by Automated coun 4.0-11.0 [facility] Lymphocytes Auto (Bld) [#/Vo l]on 12-05-2024 Lymphocytes (Bld) [#/Vol] Lymphocytes [#/volume] in Blood by Automated count Low 1.2-3.8 [facility] Lymphocytes/100 WBC Auto (Bl d)on 12-05-2024 Lymphocytes/100 WBC (Bld) Lymphocytes/100 leukocytes in Blood by Automated count Low 20.5-60.0 [facility] MCH Auto (RBC) [Entitic mass ]on 12-05-2024 MCH (RBC) [Entitic mass] MCH [Entitic mass] by Automated count 25.9-34.0 [facility] MCHC Auto (RBC) [Mass/Vol]on 12-05-2024 MCHC (RBC) [Mass/Vol] MCHC [Mass/volume] by Automated count 29.9-35.2 [facility] MCV Auto (RBC) [Entitic vol] on 12-05-2024 MCV (RBC) [Entitic vol] MCV [Entitic volume] by Automated count High 80.0-94.0 [facility] Monocytes Auto (Bld) [#/Vol] on 12-05-2024 Monocytes (Bld) [#/Vol] Automated blood monocyte count 0.3-0.8 [facility] Monocytes/100 WBC Auto (Bld) on 12-05-2024 Monocytes/100 WBC (Bld) Automated monocyte % 1.7-12.0 [facility] Neutrophils Auto (Bld) [#/Vo l]on 12-05-2024 Neutrophils (Bld) [#/Vol] Neutrophils [#/volume] in Blood by Automated count 1.4-6.5 [facility] Neutrophils/100 WBC Auto (Bl d)on 12-05-2024 Neutrophils/100 WBC (Bld) Automated neutrophil % 43.0-75.0 [facility] No Panel Informationon 12-05 Eosinophils # (Auto) 0.3 10 3/uL 0.0-0.7 [facility] Immature Granulocyte # (Auto) 0.01 10 3/uL 0.00-0.03 [facility] Troponin I High Sensitivity 15.5 pg/mL 4.0-76.1 [facility] Comment on above: CUT-OFF POINTS HAVE BEEN ESTABLISHED BASED ON THE FOURTHUNIVERSAL DEFINITION OF MYOCARDIAL INFARCTION. THE UPPERREFERENCE LIMIT (URL) OF TROPONIN, DEFINED THE 99THPERCENTILE OF cTnI DISTRIBUTION IN A REFERENCE POPULATION,HAS BEEN CONFIRMED THE DECISION THRESHOLD FOR MIDIAGNOSIS.99TH PERCENTILE = 76.2 PG/MLNOTE: HIGH-SENSITIVITY TROPONIN ASSAY IS NOT INTENDED TO BEUSED IN ISOLATION BUT SHOULD BE INTERPRETED IN CONJUNCTIONWITH OTHER DIAGNOSTIC AND CLINICAL INFORMATION. Bedside Influenza Type A Antigen Negative [facility] Comment on above: Negative for Flu A p rotein antigen. Infection due to Flu Acannot be ruled out. Flu A antigen in the sample may bebelow the detection limit of the test. Bedside Influenza Type B Antigen Negative [facility] Comment on above: Negative for Flu B p rotein antigen. Infection due to Flu Bcannot be ruled out. Flu B antigen in the sample may bebelow the detection limit of the test. Platelet mean volume Auto (B ld) [Entitic vol]on 12-05-2024 Platelet mean volume (Bld) [Entitic vol] Platelet mean volume [Entitic volume] in Blood by Automated count 9.5-13.5 [facility] Platelets Auto (Bld) [#/Vol] on 12-05-2024 Platelets (Bld) [#/Vol] Platelets [#/volume] in Blood by Automated count Low 150-450 [facility] RBC Auto (Bld) [#/Vol]on RBC (Bld) [#/Vol] Erythrocytes [#/volume] in Blood by Automated count Low 4.70-6.10 [facility] Serum or plasma anion gap de terminationon 12-05-2024 Anion gap [Moles/Vol] Serum or plasma anion gap determination [facility] Influenza virus B Ag [Presen ce] in Upper respiratory specimen by Rapid immunoassayon 11-06-2024 FLUBV Ag IA.rapid Ql (Nph) Influenza virus B Ag [Presence] in Upper respiratory specimen by Rapid immunoassay [facility] No Panel Informationon 11-06 Influenza Type A (Rapid) Negative [facility] POC SARS CoV-2 Antigen Negative [facility] CNPNon 03-20-2023 CNPN Telephone (SPNMAV) RUPERTO THORPE ([id number]) 1940 [place]* Date Time Provider Department 03/20/23 DAVID JAEGER SPNMAV During your visit today, we recorded the following information about you: Neida Porter MA 03/20/2023 12:30 PM Signed DATE OF SERVICE: 03/15/2023 PATIENT'S PHONE NUMBERS: [phone] (home) OR @[facility]@ PROVIDER: Dr. Jaeger PROCEDURE: Elective Pain Management Procedure Left message on machine Asked pt to call back and speak with the specialty triage nurse with update. Please obtain percentage better and the duration of improvement. Please inquire if there were any problems afterwards. Thanks, Roland Lria, RN 03/21/2023 1:31 PM Signed Patient calling back 15% improvement so far Numbness and tingling in Left Foot Also still having pain in his Hamstring 6/10 Pain is Zero when sleeping States he does not have any trouble sleeping Pain is when he is up and trying to work Requesting to call his CELL ONLY [phone] what to do next Leave Detailed messages [...] of spine injection schedulers to call at [phone]. Patient will call if he wants to schedule another injection. 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 Author [...] offered a procedure / surgery at a [facility] facility. Patient and I have discussed [...] surgery/procedure as indicated on the consent form. [facility] approved time out was performed identifying the site, side and level of procedure prior to start of procedure. [facility] - ELECTIVE PROCEDURE Lumbar Transforaminal Epidural [...] the entire procedure. [facility] DO, MBA [facility] CNPN Telephone (SPNMAV) RUPERTO THORPE ([id number]) 1940 [place] Date Time Provider Department 02/26/23 DAVID JAEGER SPJEREMYAV During your visit today, we recorded the following information about you: Linda Knox LPN 02/26/2023 4:49 PM Signed Spoke to patient in [facility] to pre procedure instructions. Pt must have a cpr ambulance driver. Pt advised to arrive 30 min [...] Advised on location of ASC-[address]nd [address] [facility] Pt will receive a follow up call several days after by a boilermaker central steam plant. If you experience any increase in weakness, difficulty walking or significant increase in pain that last more than 4 hours, please proceed to the Emergency Room and tell them you had a spine procedure done recently. Additionally, call us and notify us of these symptoms. Please call [phone] if you have any questions. Pt verbalized [...] by LINDA KNOX LPN on [facility]23 [facility] CNPN Telephone (SPNMAV) RUPERTO THORPE ([id number]) 1940 [place]* Date Time Provider Department [...] call Celi as patient cannot hear well [phone] Patient has been identified by name and birthdate. Duration of symptoms: N/A Person calling: daughter: Celi Call patient at: N/A [phone] (home) [phone] (cell) Was an appointment scheduled: No Closing statement: Results or non-symptom based questions: Thank you for calling [facility], your call will be returned within the next business day. Camilla Knox LPN 02/19/2023 9:45 AM Signed Spine Intervention order formatted for review Linda Knox LPN 02/19/2023 11:59 AM Signed Order approved Spoke to daughter in [place] to pre procedure instructions. Daughter given scheduling number [phone] Pt must have a cpr ambulance driver. Pt advised to arrive 30 min prior to the time given by the residential sales rep. Pt advised will also receive a call the day before from the surgery center to confirm date/time. Pt can eat and drink as normal. and Pt can take medications as normal. No alcohol 24 hours prior. Pt is on ASA.- 81 mg okay to take. and must Advised on location of ASC-2nd floor [facility] Pt will receive a follow up call several days after by a boilermaker central steam plant. If you experience any increase in weakness, difficulty walking or significant increase in pain that last more than 4 hours, please proceed to the Emergency Room and tell them you had a spine procedure done recently. Additionally, call us and notify us of these symptoms. Please call [phone] if you have any questions. Pt verbalized understanding. 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 Normal [facility] XR knee LT 4V*on 11-09-2022 XR knee LT 4V* [facility] [place] [address] [place] [address] XRay Report Signed Patient: Ruperto Thorpe MR#: [id number] 5 : 1940 Acct:[id number] Age/Sex: 82 / M ADM Date: 11/09/22 Loc: [facility] Room: Type: [facility] Attending Dr: Jose Enrique Leblanc [...] Darren Yuen M.D.11/09/2022 5:03 PM Dictation Location: [place] [address] Transcribed By: [facility] 11/09/221702 Dictated By: Darren Yuen II, MD 11/09/221700 Signed By: 11/09/22 170 Normal [facility] XR knee LT 4V* [facility] [employer] Other XR knee LT 4V* [facility] [employer] Other XR knee LT 4V* [address] [place] [address] [employer] Other XR knee LT 4V* [place] [address] [facility] [employer] Other XR knee LT 4V* XRay Report [employer] Other XR knee LT 4V* Signed [employer] Other XR knee LT 4V* Patient: Ruperto Thorpe MR#: [id number] [place] [employer] Other XR knee LT 4V* 5 [employer] Other XR knee LT 4V* : 1940 Acct:[id number] [employer] Other XR knee LT 4V* Age/Sex: 82 / M ADM Date: 11/09/22 [employer] Other XR knee LT 4V* Loc: [facility] Room: Type : [facility] [employer] Other XR knee LT 4V* Attending Dr: Jose Enrique Leblanc II, MD [employer] Other XR knee LT 4V* Copies to: Jose Enrique Leblanc MD [employer] Other XR knee LT 4V* Ordering Provider: Jose Enrique Leblanc MD [employer] Other XR knee LT 4V* Date of Service: 11/09/22 [employer] Other XR knee LT 4V* XR/XR knee LT 4V*: Acute pain of left knee [employer] Other XR knee LT 4V* XR knee LT 4V* 11/09/2022 3:15 PM [employer] Other XR knee LT 4V* SIGNS AND SYMPTOMS: Acute pain of left knee [employer] Other XR knee LT 4V* PROTOCOL: Frontal, lateral, oblique, and sunrise views of the left knee [employer] Other XR knee LT 4V* COMPARISON: 11/05/2022 [employer] Other XR knee LT 4V* FINDINGS: [employer] Other XR knee LT 4V* There is similar narrowing of the weightbearing joint spaces with chondrocalcinosis of the menisci [employer] Other XR knee LT 4V* suggesting underlyin g CPPD. There is narrowing of the patellofemoral joint space with spurring at [employer] Other XR knee LT 4V* the superior pole of patella. There is a small joint effusion. No soft tissue swelling. No acute [employer] Other XR knee LT 4V* displaced fracture. Vascular calcifications are present posteriorly. 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 [employer] Other XR knee LT 4V* There is chondrocalcinosis of the menisci suggesting underlying CPPD. [employer] Other XR knee LT 4V* Impression dictated by: Darren Yuen M.D.11/09/2022 5:03 PM [employer] Other XR knee LT 4V* Dictation Location: [place] [address] [employer] Other XR knee LT 4V* Transcribed By: COLIN 11/09/[address] [facility] [employer] Other XR knee LT 4V* Dictated By: Darren Yuen II, MD 11/09/22 170 [employer] Other XR knee LT 4V* Signed By: [employer] Other XR knee LT 4V* 11/09/22 170 XO1 Other XR pelvis 1-2Von 11-09-2022 XR pelvis [facility]V [facility] [facility] [place] [address] [place] [id number] XRay Report Signed Patient: Ruperto Thorpe MR#: [id number] 5 : 1940 Acct:[id number] Age/Sex: 82 / M ADM Date: 11/09/22 [...] Darren Yuen M.D.11/09/2022 5:01 PM Dictation Location: [facility]--12 Transcribed By: [facility] 11/09/221700 Dictated By: Darren Yuen II, MD 11/09/221699 Signed By: 11/09/221700 [facility] XR pelvis 1-2V XR/XR pelvis 1-2V: Acute pain of left knee [employer] Other XR pelvis 1-2V XR pelvis 1-2V 11/09/2022 3:15 PM [employer] Other XR pelvis 1-2V SIGNS AND SYMPTOMS: Left knee pain [employer] Other XR pelvis 1-2V PROTOCOL: Frontal radiograph of the chest [employer] Other XR pelvis 1-2V COMPARISON: None Nort [employer] Other XR pelvis 1-2V There is mild narrowing of the left hip joint space with subcortical cystic change on both sides of [employer] Other XR pelvis 1-2V the joint along the acetabular there is chondrocalcinosis of the labrum overlying the superior [employer] Other XR pelvis 1-2V acetabular rim and superior lateral femoral head. The bony ring of the pelvis is intact. There is [employer] Other XR pelvis 1-2V total right hip arthroplasty. Degenerative changes are noted in the sacroiliac joints. No fracture [employer] Other XR pelvis 1-2V is [employer] Other XR pelvis 1-2V XR/XR pelvis 1-2V [employer] Other XR pelvis 1-2V Degenerative changes are noted in the left hip with findings suspicious for previous labral [employer] Other XR pelvis 1-2V pathology. [employer] Other XR pelvis 1-2V Postoperative change s are noted in the right hip with total right hip arthroplasty hardware. [employer] Other XR pelvis 1-2V Impression dictated by: Darren Yuen M.D.11/09/2022 5:01 PM [employer] Other XR pelvis 1-2V Transcribed By: COLIN 11/09/22 170 [employer] Other XR pelvis 1-2V Dictated By: Darren Yuen II, MD 11/09/22 [facility] [employer] Other XR pelvis 1-2V 11/09/22 1701 XO1 Other XR KNEE LT 4V or >on [...] There is chondrocalcinosis. Soft tissues: Unremarkable. 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 No acute fracture or dislocation. Electronically authenticated by: CHUCK JONES Date: 2022-11-05 11:19 Normal [facility] US CAROTID ART BILon 023 US CAROTID [...] JONAS MCLEOD Date: 2022-09-26 10:58 Normal [facility] CBC AUTO DIFFon 08-10-2022 BASO # 0.0 103/ul Normal 0.0-0.1 [facility] Comment on above: Performed By: #### C BC #### [facility] [address] [place] [address] Dr. Alexis Brink Basophils/100 WBC (Bld) 0.7 % Normal 0.2-2.0 [facility] Comment on above: Performed By: #### C BC #### [facility] [address] [address] [address] Alexis Brink EO # 0.3 103/ul Normal 0.0-0.7 [facility] Comment on above: Performed By: #### C BC #### [facility] [address] [address] [address] Alexis Brink Eosinophils/100 WBC (Bld) 6.1 % Normal 0.9-7.0 [facility] Comment on above: Performed By: #### C BC #### [facility] [address] [place] [address] Dr. Alexis Brink Erythrocyte distribution width (RBC) [Ratio] 12.1 % Normal 11.0-15.0 [facility] Comment on above: Performed By: #### C BC #### [facility] [address] [place] [address] Dr. Alexis Brink Hematocrit (Bld) [Volume fraction] 44.2 % Normal 42.0-54.0 [facility] Comment on above: Performed By: #### C BC #### [facility] [address] [place] [address] Dr. Alexis Brink Hemoglobin (Bld) [Mass/Vol] 14.9 g/dL Normal 14.0-18.0 [facility] Comment on above: Performed By: #### C BC #### [facility] [address] [place] [address] Dr. Alexis Brink IG # 0.01 10e3/ul Normal 0.00-0.03 [facility] Comment on above: Performed By: #### C BC #### [facility] [address] [place] [address] Dr. Alexis Brink IG % 0.2 % Normal 0.0-0.5 [facility] Comment on above: Performed By: #### C BC #### [facility] [address] [place] [address] Dr. Alexis Brink LYMPH # 1.2 103/ul Normal 1.2-3.8 [facility] Comment on above: Performed By: #### C BC #### [facility] [address] [place] [address] Dr. Alexis Brink Lymphocytes/100 WBC (Bld) 21.3 % Normal 20.5-60.0 [facility] Comment on above: Performed By: #### C BC #### [facility] [address] [place] [address] Dr. Alexis Brink MANUAL DIFF REQ NO Normal [facility] Comment on above: Performed By: #### C BC #### [facility] [address] [place] [address] Dr. Alexis Brink MCH (RBC) [Entitic mass] 30.7 pg Normal 25.9-34.0 [facility] Comment on above: Performed By: #### C BC #### [facility] [address] [place] [address] Dr. Alexis Brink MCHC (RBC) [Mass/Vol] 33.7 g/dL Normal 29.9-35.2 [facility] Comment on above: Performed By: #### C BC #### [facility] [address] [place] [address] Dr. Alexis Brink MCV (RBC) [Entitic vol] 91.1 fL Normal 80.0-94.0 [facility] Comment on above: Performed By: #### C BC #### [facility] [address] [place] [address] Dr. Alexis Brink MONO # 0.5 103/ul Normal 0.3-0.8 [facility] Comment on above: Performed By: #### C BC #### [facility] [address] [place] [address] Dr. Alexis Brink Monocytes/100 WBC (Bld) 8.5 % Normal 1.7-12.0 [facility] Comment on above: Performed By: #### C BC #### [facility] [address] [place] [address] Dr. Alexis Brink NEUT # 3.5 103/ul Normal 1.4-6.5 [facility] Comment on above: Performed By: #### C BC #### [facility] [address] [place] [address] Dr. Alexis Brink Neutrophils/100 WBC (Bld) 63.2 % Normal 43.0-75.0 [facility] Comment on above: Performed By: #### C BC #### [facility] [address] [place] [address] Dr. Alexis Brink Platelet mean volume (Bld) [Entitic vol] 10.0 fL Normal 9.5-13.5 [facility] Comment on above: Performed By: #### C BC #### [facility] [address] [place], [place] [address] Dr. Alexis Brink PLT 120 103/ul Critically low 150-[address] [facility] Comment on above: Performed By: #### C BC #### [facility] [address] [place], [place] [address] Dr. Alexis Brink RBC 4.85 106/ul Normal 4.70-6.10 [facility] Comment on above: Performed By: #### C BC #### [facility] [address] [place], [place] [address] Dr. Alexis Brink WBC 5.6 103/ul Normal 4.0-11.0 [facility] Comment on above: Performed By: #### C BC #### [facility] [id number] Alexis Brink [facility] SARS-CoV-2 (COVID-19) RNA RICKY+probe Ql (Unsp spec) Not detected Normal NOT DETECTED [facility] Comment on above: Result Comment: This test is not yet approved or cleared by the [place] FDA. When there are no FDA-approved or cleared tests available, and other criteria are met, FDA can make tests available under an emergency access mechanism called an Emergency Use Authorization (EUA). The EUA for this test is supported by the [employer] Worker of Health and Human Service's (HHS's) declaration [...] with SARS-CoV-2. Performed By: #### C VDTBH ####[facility] [address] [place], [place] [address]BjDr. Alexis Brink INFLUENZA A AND B AGon 08-10 INFLUANEGH SEE BELOW Normal [facility] Comment on above: Result Comment: Nega tive for Flu A protein angiten. Infection due to Flu A cannot be ruled out. Flu A angiten in the sample may be below the detection limit of the test. Performed By: #### I NFLUAB ####[facility] [address] [place], [place] [address]Dr. Alexis Brink INFLUBNEGH SEE BELOW Normal [facility] Comment on above: Result Comment: Nega tive for Flu B protein antigen. Infection due to Flu B cannot be ruled out. Flu B antigen in the sample may be below the detection limit of the test. Performed By: #### I NFLUAB ####[facility] [address] [place], [place] [address]DrLainey Brink INFLUENZA A AG Negative Normal NEGATIVE SEE COMMENT [facility] Comment on above: Performed By: #### I NFLUAB ####[facility] [address] [place], [place] [address]DrLainey Brink INFLUENZA B AG Negative Normal NEGATIVE SEE COMMENT [facility] Comment on above: Performed By: #### I NFLUAB ####[facility] [address] [place], [place] [address]Dr. Alexis Brink INTERNAL CONTROLS Within Normal Limits Normal Wi thin Normal Limits [facility] Comment on above: Performed By: #### I NFLUAB ####[facility] [address] [place], [place] [address]Dr. Alexis Brink PROF CHEM 8 (BAS METB)on Anion gap [Moles/Vol] 11.4 mmol/L Normal [facility] Comment on above: Performed By: #### B NARA, HSTROPN #### [facility] [address] [place] [address] Dr. Alexis Brink Calcium [Mass/Vol] 8.9 mg/dL Normal 8.5-10.1 [facility] Comment on above: Performed By: #### B NARA, HSTROPN #### [facility] [address] [place] [address] Dr. Alexis Brink Chloride [Moles/Vol] 102 mmol/L Normal 98-107 [facility] Comment on above: Performed By: #### B NARA, HSTROPN #### [facility] [address] [address] [address] Alexis Brink CO2 [Moles/Vol] 28.8 mmol/L Normal 21.0-32.0 [facility] Comment on above: Performed By: #### B NARA, HSTROPN #### [facility] [address] [address] [address] Alexis Brink Creatinine [Mass/Vol] 1.35 mg/dL Critically high 0.70-1.30 [facility] Comment on above: Performed By: #### B NARA, HSTROPN #### [facility] [address] [address] [address] Alexis Brink EGFR-AF ESTONIAN >60 Normal >=60 [facility] Comment on above: Performed By: #### B NARA, HSTROPN #### [facility] [address] [address] [address] Alexis Brink EGFR-NON AF ESTONIAN 51 mL/min/1.73m2 Critically low >=60 [facility] Comment on above: Performed By: #### B NARA, HSTROPN #### [facility] [address] [address] [address] Alexis Brink Glucose [Mass/Vol] 109 mg/dL Critically high 74-106 [facility] Comment on above: Performed By: #### B NARA, HSTROPN #### [facility] [address] [address] [address] Alexis Brink Potassium [Moles/Vol] 4.2 mmol/L Normal 3.5-5.1 [facility] Comment on above: Performed By: #### B NARA, HSTROPN #### [facility] [address] [address] [address] Alexis Brink Sodium [Moles/Vol] 138 mmol/L Normal 136-145 [facility] Comment on above: Performed By: #### B NARA, HSTROPN #### [facility] [address] [address] [address] Alexis Brink Urea nitrogen [Mass/Vol] 18.0 mg/dL Normal 7.0-18.0 [facility] Comment on above: Performed By: #### B MP, HSTROPN #### [facility] [address] [address] [address] Alexis Brink Urea nitrogen/Creatinine [Mass ratio] 13.3 mg/mg Normal [facility] Comment on above: Performed By: #### B MP, HSTROPN #### [facility] [address] [address] [address] Alexis Brink TROPONIN, HIGH SENSITIVITYon 08-10-2022 HSTROP 22.2 pg/mL Normal 4.0-76.1 [facility] Comment on above: Result Comment: CUT- OFF POINTS HAVE BEEN ESTABLISHED BASED ON THE FOURTH UNIVERSAL DEFINITIONS OF MYOCARDIAL INFARCTION. THE UPPER REFERENCE LIMIT (URL) OF TROPONIN, DEFINED THE 99TH PERCENTILE OF cTnI DISTRIBUTION IN A REFERENCE POPULATION, HAS BEEN CONFIRMED THE DECISION THRESHOLD FOR [place] DIAGNOSIS. Performed By: #### B MP, HSTROPN #### [facility] [address] [place] [address] Dr. Alexis Brink XR CHEST 1 Von [...] RADHA UNDERWOOD Date: 2022-08-10 16:07 Normal [facility] CBC AUTO DIFFon 02-09-2022 BASO # 0.0 103/ul Normal 0.0-0.1 [facility] Comment on above: Performed By: #### C BC #### [facility] [address] [address] [address] Alexis Brink Basophils/100 WBC (Bld) 0.6 % Normal 0.2-2.0 [facility] Comment on above: Performed By: #### C BC #### [facility] [address] [place] [address] Dr. Alexis Brink EO # 0.5 103/ul Normal 0.0-0.7 [facility] Comment on above: Performed By: #### C BC #### [facility] [address] [place] [address] Dr. Alexis Brink Eosinophils/100 WBC (Bld) 7.2 % Critically high 0.9-7.0 [facility] Comment on above: Performed By: #### C BC #### [facility] [address] [place] [address] Dr. Alexis Brink Erythrocyte distribution width (RBC) [Ratio] 12.4 % Normal 11.0-15.0 [facility] Comment on above: Performed By: #### C BC #### [facility] [address] [place] [address] Dr. Alexis Brink Hematocrit (Bld) [Volume fraction] 45.5 % Normal 42.0-54.0 [facility] Comment on above: Performed By: #### C BC #### [facility] [address] [place] [address] Dr. Alexis Brink Hemoglobin (Bld) [Mass/Vol] 15.4 g/dL Normal 14.0-18.0 [facility] Comment on above: Performed By: #### C BC #### [facility] [address] [place] [address] Dr. Alexis Brink IG # 0.02 10e3/ul Normal 0.00-0.03 [facility] Comment on above: Performed By: #### C BC #### [facility] [address] [place] [address] Dr. Alexis Brink IG % 0.3 % Normal 0.0-0.5 [facility] Comment on above: Performed By: #### C BC #### [facility] [address] [place] [address] Dr. Alexis Brink LYMPH # 1.3 103/ul Normal 1.2-3.8 [facility] Comment on above: Performed By: #### C BC #### [facility] [address] [place] [address] Dr. Alexis Brink Lymphocytes/100 WBC (Bld) 17.8 % Critically low 20.5-60.0 [facility] Comment on above: Performed By: #### C BC #### [facility] [address] [place] [address] Dr. Alexis Brink MANUAL DIFF REQ NO Normal [facility] Comment on above: Performed By: #### C BC #### [facility] [address] [place] [address] Dr. Alexis Brink MCH (RBC) [Entitic mass] 31.4 pg Normal 25.9-34.0 [facility] Comment on above: Performed By: #### C BC #### [facility] [address] [place] [address] Dr. Alexis Brink MCHC (RBC) [Mass/Vol] 33.8 g/dL Normal 29.9-35.2 [facility] Comment on above: Performed By: #### C BC #### [facility] [address] [place] [address] Dr. Alexis Brink MCV (RBC) [Entitic vol] 92.9 fL Normal 80.0-94.0 [facility] Comment on above: Performed By: #### C BC #### [facility] [address] [place] [address] Dr. Alexis Brink MONO # 0.7 103/ul Normal 0.3-0.8 [facility] Comment on above: Performed By: #### C BC #### [facility] [address] [place] [address] Dr. Alexis Brink Monocytes/100 WBC (Bld) 9.6 % Normal 1.7-12.0 [facility] Comment on above: Performed By: #### C BC #### [facility] [address] [place] [address] Dr. Alexis Brink NEUT # 4.6 103/ul Normal 1.4-6.5 [facility] Comment on above: Performed By: #### C BC #### [facility] [address] [address] [address] Alexis Brink Neutrophils/100 WBC (Bld) 64.5 % Normal 43.0-75.0 [facility] Comment on above: Performed By: #### C BC #### [facility] [address] [address] [address] Alexis Brink Platelet mean volume (Bld) [Entitic vol] 10.7 fL Normal 9.5-13.5 [facility] Comment on above: Performed By: #### C BC #### [facility] [address] [place] [address] Dr. Alexis Brink PLT 130 103/ul Critically low 150-450 [facility] Comment on above: Performed By: #### C BC #### [facility] [address] [address] [address] Alexis Brink RBC 4.90 106/ul Normal 4.70-6.10 [facility] Comment on above: Performed By: #### C BC #### [facility] [address] [address] [address] Alexis Brink WBC 7.1 103/ul Normal 4.0-11.0 [facility] Comment on above: Performed By: #### C BC #### [facility] [address] [address] [address] Alexis Brink DIRECT LDLon 02-09-2022 Cholesterol in LDL [Mass/Vol] 144 mg/dL Normal [facility] Comment on above: Performed By: #### D LDL, BMP ####[facility] [address] [address]Dr. Alexis Brink DLDL NORMAL SEE BELOW Normal [facility] Comment on above: Result Comment: <100 mg/dl OPTIMAL 100 - 129 mg/dl NEAR OR ABOVE OPTIMAL 130 - 159 mg/dl BORDERLINE HIGH 160 - 189 mg/dl HIGH >190 mg/dl VERY HIGH Performed By: #### D LDL, BMP ####[facility] [address] [place], [place] [address]QpDr. Alexis Brink PROF CHEM 8 (BAS METB)on Anion gap [Moles/Vol] 9.3 mmol/L Normal [facility] Comment on above: Performed By: #### D LDL, BMP #### [facility] [address] [address] [address] Alexis Brink Calcium [Mass/Vol] 8.7 mg/dL Normal 8.5-10.1 [facility] [place] Comment on above: Performed By: #### D LDL, BMP #### [facility] [address] [address] [address] Alexis Brink Chloride [Moles/Vol] 103 mmol/L Normal 98-107 [facility] Comment on above: Performed By: #### D LDL, BMP #### [facility] [address] [address] [address] Alexis Brink CO2 [Moles/Vol] 32.1 mmol/L Critically high 21.0-32.0 [facility] Comment on above: Performed By: #### D LDL, BMP #### [facility] [address] [address] [address] Alexis Brink Creatinine [Mass/Vol] 1.35 mg/dL Critically high 0.70-1.30 [facility] Comment on above: Performed By: #### D LDL, BMP #### [facility] [address] [address] [address] Alexis Brink EGFR-AF ESTONIAN >60 Normal >=60 [facility] Comment on above: Performed By: #### D LDL, BMP #### [facility] [address] [address] [address] Alexis Brink EGFR-NON AF ESTONIAN 51 mL/min/1.73m2 Critically low >=60 [facility] Comment on above: Performed By: #### D LDL, BMP #### [facility] [address] [address] [address] Alexis Brink Glucose [Mass/Vol] 90 mg/dL Normal 74-106 [facility] [place] Comment on above: Performed By: #### D LDL, BMP #### [facility] [address] [address] [address] Alexis Brink Potassium [Moles/Vol] 4.4 mmol/L Normal 3.5-5.1 [facility] Comment on above: Performed By: #### D LDL, BMP #### [facility] [address] [address] [address] Alexis Brink Sodium [Moles/Vol] 140 mmol/L Normal 136-145 [facility] [place] Comment on above: Performed By: #### D LDL, BMP #### [facility] [address] [address] [address] Alexis Brink Urea nitrogen [Mass/Vol] 16.0 mg/dL Normal 7.0-18.0 [facility] Comment on above: Performed By: #### D LDL, BMP #### [facility] [address] [address] [address] Alexis Brink Urea nitrogen/Creatinine [Mass ratio] 11.9 mg/mg Normal [facility] Comment on above: Performed By: #### D LDL, BMP #### [facility] [address] [address] [address] Alexis Brink UA RANDOMon 02-09-2022 Bilirubin Ql (U) Negative Normal NEGATIVE [facility] Comment on above: Performed By: #### U A #### [facility] [address] [address] [address] Alexis Brink Clarity (U) CLEAR Normal CLEAR [facility] Comment on above: Performed By: #### U A #### [facility] [address] [place] [address] Dr. Alexis Brink Color (U) YELLOW Normal YELLOW [facility] Comment on above: Performed By: #### U A #### [facility] [address] [place] [address] Dr. Alexis Brink Glucose Ql (U) Negative Normal NEGATIVE [facility] Comment on above: Performed By: #### U A #### [facility] [address] [place] [address] Dr. Alexis Brink Hemoglobin Ql (U) Negative Normal NEGATIVE [facility] Comment on above: Performed By: #### U A #### [facility] [address] [place] [address] Dr. Alexis Brink Ketones Ql (U) Negative Normal NEGATIVE [facility] Comment on above: Performed By: #### U A #### [facility] [address] [place] [address] Dr. Alexis Brink LEUKOCYTES Negative Normal NEGATIVE [facility] Comment on above: Performed By: #### U A #### [facility] [address] [place] [address] Dr. Alexis Brink Nitrite Ql (U) Negative Normal NEGATIVE [facility] Comment on above: Performed By: #### U A #### [facility] [address] [place] [address] Dr. Alexis Brink pH (U) 7.0 [pH] Normal 5-9 [facility] Comment on above: Performed By: #### U A #### [facility] [address] [place] [address] Dr. Alexis Brink SPEC GRAVITY 1.015 Normal 1.005-<=1.02 5 [facility] Comment on above: Performed By: #### U A #### [facility] [address] [place] [address] Dr. Alexis Brink UA PROTEIN Negative Normal NEGATIVE/ TRACE [facility] Comment on above: Performed By: #### U A #### [facility] [address] [place] [address] Dr. Alexis Brink Urobilinogen Qn (U) 1.0 {Kay'U}/dL Normal 0.2 - 1. 0 [facility] Comment on above: Performed By: #### U A #### [facility] [address] [place] [address] Dr. Alexis Brink XR CHEST 2 Von [...] by: LYDIA HAWLEY Date: 2021-12-06 15:42 Normal [facility] Nonvisit Note - PTon 018 Nonvisit Note - PT Cert letter refaxed for signature this date - third and final attempt. Normal [facility] Nonvisit Note - PTon 018 Nonvisit Note - PT Cert letter refaxed to Dr Gooden's office. Second attempt. Normal [facility] Coding Summary.on 01-25-2018 Coding Summary. CODING DATE: 01/25/2018 [facility] STATUS: PAYOR: Medicare ADMIT DX: REASON [...] Date Saved: 01/25/2018 10:54 am Normal [facility] Coding Summary. CODING DATE: 01/25/2018 [facility] STATUS: PAYOR: Medicare ADMIT DX: REASON [...] Date Saved: 01/25/2018 10:54 am Normal [facility] SURGICAL PATHOLOGYon 05-15-2 018 SURGICAL [facility]OLOGY [facility]: [id number] Physician: BETH GOODEN MD FINAL DIAGNOSISRight hip, [...] to 8.5 x 8.5 x 1.8 cm. Hand Scraper sectionsare submitted as follows: A1 soft tissue, A2 bone submitted afterdecalcification.B F/wlz 01/01/2018 Gross examination performed at [facility], [facility] [id number] of Report: 01/07/2018Date of Procedure: 01/01/2018Date of Receipt: 01/01/2018Submitted by: BETH GOODEN MDLocation: [id number] interpretation performed at [facility], [facility] [id number] Normal [facility] Reference Lab Comment on above: Performed By: #### S ####See report for performing lab information. Vital Signs Date Time Vital Sign Value Performing Clinician Facility 12-09-2024 15:37-0400 Body height 167.64 cm [facility] 12-09-2024 15:37-0400 Body mass index (BMI) [Ratio] 28.9 kg/m2 [facility] 12-09-2024 15:37-0400 Body weight 81.36 kg [facility] 12-09-2024 15:37-0400 Diastolic blood pressure 74 mm[Hg] [facility] 12-09-2024 15:37-0400 Heart rate 75 /min [facility] 12-09-2024 15:37-0400 Respiratory rate 12 /min [facility] 12-09-2024 15:37-0400 SaO2% (BldA) [Mass fraction] 98 % [facility] 12-09-2024 15:37-0400 Systolic blood pressure 153 mm[Hg] [facility] 11-06-2024 09:02-0400 Body height 167.64 cm [facility] 11-06-2024 09:02-0400 Body mass index (BMI) [Ratio] 28.9 kg/m2 [facility] 11-06-2024 09:02-0400 Body weight 81.36 kg [facility] 11-06-2024 09:02-0400 Diastolic blood pressure 67 mm[Hg] [facility] 11-06-2024 09:02-0400 Heart rate 82 /min [facility] 11-06-2024 09:02-0400 Respiratory rate 24 /min [facility] 11-06-2024 09:02-0400 SaO2% (BldA) [Mass fraction] 98 % [facility] 11-06-2024 09:02-0400 Systolic blood pressure 130 mm[Hg] [facility] 10-01-2024 08:35-0500 Body height 167.64 cm [facility] 10-01-2024 08:35-0500 Body mass index (BMI) [Ratio] 28.5 kg/m2 [facility] 10-01-2024 08:35-0500 Body weight 80.34 kg [facility] 10-01-2024 08:35-0500 Diastolic blood pressure 74 mm[Hg] [facility] 10-01-2024 08:35-0500 Heart rate 67 /min [facility] 10-01-2024 08:35-0500 Respiratory rate 16 /min [facility] 10-01-2024 08:35-0500 Systolic blood pressure 155 mm[Hg] [facility] 05-28-2024 08:30-0400 Body height 167.64 cm [facility] 05-28-2024 08:30-0400 Body mass index (BMI) [Ratio] 27.1 kg/m2 [facility] 05-28-2024 08:30-0400 Body weight 76.31 kg [facility] 05-28-2024 08:30-0400 Diastolic blood pressure 89 mm[Hg] [facility] 05-28-2024 08:30-0400 Heart rate 61 /min [facility] 05-28-2024 08:30-0400 Respiratory rate 12 /min [facility] 05-28-2024 08:30-0400 Systolic blood pressure 139 mm[Hg] [facility] 01-22-2024 09:16-0400 Body height 167.64 cm [facility] 01-22-2024 09:16-0400 Body mass index (BMI) [Ratio] 29.3 kg/m2 [facility] 01-22-2024 09:16-0400 Body weight 82.55 kg [facility] 01-22-2024 09:16-0400 Diastolic blood pressure 72 mm[Hg] [facility] 01-22-2024 09:16-0400 Heart rate 64 /min [facility] 01-22-2024 09:16-0400 Respiratory rate 20 /min [facility] 01-22-2024 09:16-0400 Systolic blood pressure 131 mm[Hg] [facility] 09-28-2023 11:00-0500 Body height 167.64 cm Cecilio Ball Other [employer] Other 09-28-2023 11:00-0500 Body mass index (BMI) [Ratio] 30.24 kg/m2 Cecilio Ball Other [employer] Other 09-28-2023 11:00-0500 Body weight 85 kg Cecilio Ball Other [employer] Other 09-28-2023 11:00-0500 Respiratory rate 20 /min Cecilio Ball Other [employer] Other 09-28-2023 11:00-0500 SaO2% (BldA) [Mass fraction] 97 % Cecilio Ball Other [employer] Other 09-11-2023 10:45-0500 Body height 167.64 cm Cecilio Ball Other [employer] Other 09-11-2023 10:45-0500 Body mass index (BMI) [Ratio] 29.86 kg/m2 Cecilio Ball Other [employer] Other 09-11-2023 10:45-0500 Body temperature 97.5 [degF] Cecilio Ball Other [employer] Other 09-11-2023 10:45-0500 Body weight 83.92 kg Cecilio Ball Other [employer] Other 09-11-2023 10:45-0500 Diastolic blood pressure 81 mm[Hg] Cecilio Ball Other [employer] Other 09-11-2023 10:45-0500 Respiratory rate 20 /min Cecilio Ball Other [employer] Other 09-11-2023 10:45-0500 SaO2% (BldA) [Mass fraction] 98 % Cecilio Ball Other [employer] Other 09-11-2023 10:45-0500 Systolic blood pressure 161 mm[Hg] Cecilio Ball Other [employer] Other 08-01-2023 10:15-0500 Body height 167.64 cm Cecilio Ball Other [employer] Other 08-01-2023 10:15-0500 Body mass index (BMI) [Ratio] 29.86 kg/m2 Cecilio Ball Other [employer] Other 08-01-2023 10:15-0500 Body weight 83.92 kg Cecilio Ball Other [employer] Other 08-01-2023 10:15-0500 Diastolic blood pressure 79 mm[Hg] Cecilio Ball Other [employer] Other 08-01-2023 10:15-0500 Respiratory rate 20 /min Cecilio Ball Other [employer] Other 08-01-2023 10:15-0500 Systolic blood pressure 172 mm[Hg] Cecilio Ball Other [employer] Other 07-17-2023 10:15-0500 Body height 167.64 cm Cecilio Ball Other [employer] Other 07-17-2023 10:15-0500 Body mass index (BMI) [Ratio] 29.89 kg/m2 Cecilio Ball Other [employer] Other 07-17-2023 10:15-0500 Body weight 84.01 kg Cecilio Ball Other [employer] Other 07-17-2023 10:15-0500 Diastolic blood pressure 78 mm[Hg] Cecilio Ball Other [employer] Other 07-17-2023 10:15-0500 Respiratory rate 20 /min Cecilio Ball Other [employer] Other 07-17-2023 10:15-0500 Systolic blood pressure 172 mm[Hg] Cecilio Ball Other [employer] Other 07-10-2023 14:45-0500 Body height 167.64 cm Cecilio Ball Other [employer] Other 07-10-2023 14:45-0500 Body mass index (BMI) [Ratio] 29.47 kg/m2 Cecilio Ball Other [employer] Other 07-10-2023 14:45-0500 Body weight 82.83 kg Cecilio Ball Other [employer] Other 07-10-2023 14:45-0500 Diastolic blood pressure 80 mm[Hg] Cecilio Ball Other [employer] Other 07-10-2023 14:45-0500 Respiratory rate 20 /min Cecilio Ball Other [employer] Other 07-10-2023 14:45-0500 Systolic blood pressure 150 mm[Hg] Cecilio Ball Other [employer] Other 06-20-2023 08:30-0400 Body height 167.64 cm Cecilio Ball Other [employer] Other 06-20-2023 08:30-0400 Body mass index (BMI) [Ratio] 29.6 kg/m2 Cecilio Ball Other [employer] Other 06-20-2023 08:30-0400 Body weight 83.19 kg Cecilio Ball Other [employer] Other 06-20-2023 08:30-0400 Diastolic blood pressure 76 mm[Hg] Cecilio Ball Other [employer] Other 06-20-2023 08:30-0400 Respiratory rate 20 /min Cecilio Ball Other [employer] Other 06-20-2023 08:30-0400 Systolic blood pressure 157 mm[Hg] Cecilio Ball Other [employer] Other 05-30-2023 13:45-0400 Body height 167.64 cm Cecilio Ball Other [employer] Other 05-30-2023 13:45-0400 Body mass index (BMI) [Ratio] 28.95 kg/m2 Cecilio Ball Other [employer] Other 05-30-2023 13:45-0400 Body weight 81.38 kg Cecilio Ball Other [employer] Other 05-30-2023 13:45-0400 Diastolic blood pressure 78 mm[Hg] Cecilio Ball Other [employer] Other 05-30-2023 13:45-0400 Respiratory rate 16 /min Cecilio Ball Other [employer] Other 05-30-2023 13:45-0400 Systolic blood pressure 158 mm[Hg] Cecilio Ball Other [employer] Other 02-14-2023 08:30-0400 Body height 167.64 cm Cecilio Ball Other [employer] Other 02-14-2023 08:30-0400 Body mass index (BMI) [Ratio] 28.57 kg/m2 Cecilio Ball Other [employer] Other 02-14-2023 08:30-0400 Body weight 80.29 kg Cecilio Ball Other [employer] Other 02-14-2023 08:30-0400 Diastolic blood pressure 80 mm[Hg] Cecilio Ball Other [employer] Other 02-14-2023 08:30-0400 Respiratory rate 16 /min Cecilio Ball Other [employer] Other 02-14-2023 08:30-0400 Systolic blood pressure 135 mm[Hg] Cecilio Ball Other [employer] Other 02-01-2023 08:15-0400 Body height 167.64 cm Jose Enrique Absaraka II Other [employer] Other 02-01-2023 08:15-0400 Body mass index (BMI) [Ratio] 27.44 kg/m2 Jose Enrique Absaraka II Other [employer] Other 02-01-2023 08:15-0400 Body weight 77.11 kg Jose Enrique Benji II Other [employer] Other 12-11-2022 10:30-0400 Body height 167.64 cm Cecilio Ball Other [employer] Other 12-11-2022 10:30-0400 Body mass index (BMI) [Ratio] 28.66 kg/m2 Cecilio Ball Other [employer] Other 12-11-2022 10:30-0400 Body weight 80.56 kg Cecilio Ball Other [employer] Other 12-11-2022 10:30-0400 Diastolic blood pressure 76 mm[Hg] Cecilio Ball Other [employer] Other 12-11-2022 10:30-0400 Respiratory rate 12 /min Cecilio Ball Other [employer] Other 12-11-2022 10:30-0400 Systolic blood pressure 151 mm[Hg] Cecilio Ball Other [employer] Other 11-09-2022 16:00-0400 Body mass index (BMI) [Ratio] 29.21 kg/m2 [employer] Other [employer] Other 11-09-2022 16:00-0400 Body weight 82.1 kg [employer] Other [employer] Other 11-09-2022 10:30-0400 Body height 167.64 cm Cecilio Ball Other [employer] Other 11-09-2022 10:30-0400 Body mass index (BMI) [Ratio] 29.23 kg/m2 Cecilio Ball Other [employer] Other 11-09-2022 10:30-0400 Body weight 82.15 kg Cecilio Ball Other [employer] Other 11-09-2022 10:30-0400 Diastolic blood pressure 79 mm[Hg] Cecilio Ball Other [employer] Other 11-09-2022 10:30-0400 Respiratory rate 20 /min Cecilio Ball Other [employer] Other 11-09-2022 10:30-0400 Systolic blood pressure 152 mm[Hg] Cecilio [facility] Other [employer] Other 10-12-2022 10:00-0500 Body height 167.64 cm [place] Other [employer] Other 10-12-2022 10:00-0500 Body mass index (BMI) [Ratio] 29.24 kg/m2 [facility] Other [employer] Other 10-12-2022 10:00-0500 Body weight 82.19 kg [facility] Other [employer] Other 10-12-2022 10:00-0500 Diastolic blood pressure 70 mm[Hg] [facility] Other [employer] Other 10-12-2022 10:00-0500 Respiratory rate 12 /min [facility] Other [employer] Other 10-12-2022 10:00-0500 Systolic blood pressure 102 mm[Hg] [facility] Other [employer] Other Encounters Encounter Date Encounter Type Care Provider Facility Start: 12-09-2024 End: 12-09-2024 ambulatory [facility] Work Phone: Start: 12-09-2024 End: 12-09-2024 [facility] Work Phone: Start: 12-05-2024 Non-patient / [facility]-visit [facility] Work Phone: Start: 11-17-2024 End: 11-17-2024 ambulatory Maddie Villalobos MD Facility:[facility] Start: 11-06-2024 End: 11-06-2024 ambulatory [facility] Work Phone: Start: 11-06-2024 End: 11-06-2024 Patient encounter procedure [facility] Work Phone: Start: 10-01-2024 End: 10-01-2024 ambulatory [facility] Work Phone: Start: 10-01-2024 End: 10-01-2024 Patient encounter procedure [facility] Work Phone: Start: 08-18-2024 End: 08-18-2024 ambulatory Andrius Antonellaautas Gaetanoitis Facility:[facility] Start: 08-04-2024 End: 08-04-2024 ambulatory Andrius Antonellaautherlinda Salteritis Facility:[facility] Start: 07-14-2024 End: 07-14-2024 ambulatory Andbeto Bermanautas Gaetanoitis Facility:[facility] Start: 05-28-2024 End: 05-28-2024 ambulatory [facility] Work Phone: Start: 05-28-2024 End: 05-28-2024 Patient encounter procedure [facility] Work Phone: Start: 05-26-2024 End: 05-26-2024 ambulatory Andrius Kipytautas Gaetanoitis Facility:[facility] Start: 04-07-2024 End: 04-07-2024 ambulatory Andrius Kipytautas Gaetanoitis Facility:[facility] [place] Start: 03-31-2024 End: 03-31-2024 ambulatory Andrius Kipytautas Gaetanoitis Facility:[facility] [place] Start: 03-24-2024 End: 03-24-2024 ambulatory Andrius Kipytautas Gaetanoitis Facility:[facility] [place] Start: 03-10-2024 End: 03-10-2024 ambulatory Andrius Kipytautas Gaetanoitis Facility:[facility] [place] Start: 02-25-2024 End: 02-25-2024 ambulatory Maddie Villalobos MD Facility:[facility] Start: 02-11-2024 End: 02-11-2024 ambulatory Maddie Villalobos MD Facility:[facility] Start: 01-28-2024 End: 01-28-2024 ambulatory Maddie Villalobos MD Facility: [place] Start: 01-22-2024 End: 01-22-2024 ambulatory [facility] Work Phone: Start: 01-22-2024 End: 01-22-2024 Patient encounter procedure [facility] Work Phone: Start: 10-30-2023 Non-patient / Non-visit [facility] Work Phone: Start: 09-28-2023 End: 09-28-2023 ambulatory Cecilio Ball Other [employer] Other Start: 09-28-2023 Office outpatient vi sit 15 minutes Cecilio Ball [facility] Start: 09-28-2023 Telephone encounter Cecilio Ball [facility] Start: 09-21-2023 End: 09-21-2023 ambulatory Cecilio Ball Other [employer] Other Start: 09-21-2023 Telephone encounter Cecilio Ball [facility] Start: 09-11-2023 End: 09-11-2023 ambulatory Cecilio Ball Other [employer] Other Start: 09-11-2023 Office outpatient vi sit 15 minutes Cecilio Ball [facility] Start: 09-11-2023 Telephone encounter Cecilio Ball [facility] Start: 09-03-2023 End: 09-03-2023 ambulatory Cecilio Ball Other [employer] Other Start: 09-03-2023 Telephone encounter Cecilio Ball [facility] Start: 08-03-2023 End: 08-03-2023 ambulatory Cecilio Ball Other [employer] Other Start: 08-03-2023 Telephone encounter Cecilio Benjamin [facility] Start: 08-01-2023 End: 08-01-2023 ambulatory Cecilio Ball Other [employer] Other Start: 08-01-2023 Office outpatient vi sit 15 minutes Cecilio Ball [facility] Start: 07-17-2023 End: 07-17-2023 ambulatory Cecilio Ball Other [employer] Other Start: 07-17-2023 Office outpatient vi sit 15 minutes Cecilio Ball [facility] Start: 07-10-2023 End: 07-10-2023 ambulatory Cecilio Ball Other [employer] Other Start: 07-10-2023 Office outpatient vi sit 15 minutes Cecilio Ball [facility] Start: 06-20-2023 End: 06-20-2023 ambulatory Cecilio Sourav Other [employer] Other Start: 06-20-2023 Office outpatient vi sit 25 minutes Cecilio Ball [facility] Start: 06-15-2023 End: 06-15-2023 ambulatory Cecilio Sourav Other [employer] Other Start: 06-15-2023 Telephone encounter Cecilio Benjamin [facility] Start: 05-30-2023 End: 05-30-2023 ambulatory Cecilio Ball Other [employer] Other Start: 05-30-2023 Office outpatient vi sit 15 minutes Cecilio Ball [facility] Start: 03-20-2023 Telephone encounter David Jaeger DO Work Phone: [facility] [place] Comment on above: Follow Up Phone Call Start: 03-15-2023 End: 03-15-2023 ambulatory DAVID JAEGER Facility:[facility] Start: 02-27-2023 Orders Only David Marcos DO Work Phone: Procedures Comment on above: Pseudoclaudication s yndrome (Primary Dx); Lumbar radiculopathy Start: 02-26-2023 Telephone encounter David Jaeger DO Work Phone: [facility] [place] Comment on above: Procedure Start: 02-19-2023 Telephone encounter David Jaeger DO Work Phone: [facility] [place] Comment on above: Appointment Start: 02-14-2023 End: 02-14-2023 ambulatory Cecilio Benjamin Other [employer] Other Start: 02-14-2023 Patient encounter procedure Cecilio Benjamin [facility] Start: 02-13-2023 End: 02-13-2023 ambulatory Cecilio Benjamin Other [employer] Other Start: 02-13-2023 Telephone encounter Cecilio Benjamin [facility] Start: 02-08-2023 End: 02-08-2023 ambulatory Cecilio Benjamin Other [employer] Other Start: 02-08-2023 Telephone encounter Cecilio Benjamin [facility] Start: 02-01-2023 End: 02-01-2023 ambulatory Jose Enrique Leblanc II Other [employer] Other Start: 02-01-2023 Office outpatient vi sit 25 minutes Jose Enrique Leblanc II [facility] Start: 12-11-2022 End: 12-11-2022 ambulatory Cecilio Benjamin Other [employer] Other Start: 12-11-2022 Office outpatient vi sit 15 minutes Cecilio Benjamin [facility] Start: 11-09-2022 End: 11-09-2022 ambulatory Jose Enrique Leblanc II Facility:[facility] Start: 11-09-2022 End: 11-09-2022 Patient encounter procedure MD Jose Enrique Leblanc II Work Phone: [facility] Start: 11-09-2022 End: 11-09-2022 ambulatory MD Jose Enrique Leblanc II Work Phone: [facility] Work Phone: Start: 11-09-2022 Office outpatient ne w 45 minutes Jose Enrique Leblanc II [facility] Start: 11-09-2022 Office outpatient vi sit 15 minutes Cecilio Benjamin [facility] Start: 11-05-2022 End: 11-05-[address] CECILIO BENJAMIN Facility:[facility] Start: 10-12-2022 End: 10-12-2022 ambulatory Cecilio Benjamin Other [employer] Other Start: 10-12-2022 Office outpatient vi sit 25 minutes Cecilio Benjamin [facility] Start: 09-27-2022 End: 09-27-2022 ambulatory Cecilio Benjamin Other [employer] Other Start: 09-27-2022 Telephone encounter Cecilio DENISE [facility] Start: 09-26-2022 End: 09-27-[address] CECILIO BENJAMIN Facility:[facility] Start: 08-25-2022 End: 08-25-2022 ambulatory Cecilio Benjamin Other [employer] Other Start: 08-25-2022 Telephone encounter Cecilio DENISE [facility] Start: 08-10-2022 End: 08-10-[address] CECILIO BENJAMIN Facility:[facility] Start: 02-09-2022 End: 02-10-[address] CECILIO BENJAMIN Facility:[facility] Start: 12-06-2021 End: 12-07-[address] CECILIO BENJAMIN Facility:[facility] Start: 01-22-2018 End: 04-20-2018 Patient encounter [id number] AUGUSTINE BENJAMIN [place] Date Procedure Procedure Detail Performing Clinician Start: 11-09-2022 Pelvis X-ray MD Jose Enrique Leblanc II Work Phone: Start: 11-09-2022 Radiologic examinati on of knee MD Jose Enrique Leblanc II Work Phone: Plan of Treatment Date Care Activity Detail Author Start: 01-22-2024 Patient referral [facility] Work Phone: Start: 04-20-2023 Influenza vaccination INFLUENZA (#1) [facility] Start: 10-01-2022 COVID-19 VACCINE (5 - Moderna series) COVID-19 VACCINE (5 - Moderna series) [facility] Start: 08-20-2022 ADVANCE DIRECTIVE DISCUSSION ADVANCE DIRECTIVE DISCUSSION [facility] Start: 08-20-2022 DEPRESSION ASSESSMENT DEPRESSION ASS ESSMENT [facility] Start: 09-19-2021 COVID-19 VACCINE (4 - Booster for Moderna series) COVID-19 VACCINE (4 - Booster for Moderna series) [facility] Start: 09-19-2021 COVID-19 VACCINE (4 - Moderna series) COVID-19 VACCINE (4 - Moderna series) [facility] Start: 01-02-2021 DIABETES SCREEN DIABETES SCREEN [facility] Start: 1991 SHINGRIX VACCINE (1 of 2) SHINGRIX VACCINE (1 of 2) [facility] Start: 1960 Urine microalbumin profile DTAP,TDAP,TD (1 - Tdap) [facility] Start: 1959 SPIROMETRY SPIROMETRY [facility] Start: 1947 PNEUMOCOCCAL: 65+ (1 - PCV) PNEUMOCOCCAL: 65+ (1 - PCV) [facility] Comprehensive metabo lic 2000 panel - Serum or Plasma [facility] Patient referral [facility] Work Phone: SPINE INTERVENTION PROCEDURE SPINE INTERVENTION PROCEDURE Procedures Routine Spinal stenosis, lumbar region with neurogenic claudication Lumbar radiculopathy, chronic Ordered: 02/19/2023 [facility] Work Phone: Comment on above: Ordered: 02/19/2023 [facility] Immunizations Immunization Date Immunization Notes Care Provider Coleman bermudez 05-28-2024 influenza, high dose seasonal, preservative-free [facility] 05-30-2023 COVID-19 Vaccine Moderna - Documentation Purposes Only Cecilio Benjamin Other [facility] 05-30-2023 influenza virus vaccine, unspecified formulation [facility] 05-30-2023 influenza, high dose seasonal, preservative-free Cecilio Benjamin Other [employer] Other 06-13-2022 influenza virus vaccine, split virus (incl. purified surface antigen) Cecilio Benjamin Other [employer] Other 06-13-2022 influenza virus vaccine, unspecified formulation [facility] 06-13-2022 influenza, high dose seasonal, preservative-free Jose Enrique Absaraka II Other [facility] [employer] Other 05-31-2022 COVID-19 Pfizer (bivalent) Jose Enrique Absaraka II Other [facility] 05-31-2022 COVID-19 Pfizer (Pediatric) Cecilio Benjamin Other [facility] 07-25-2021 COVID-19 Vaccine Moderna - Documentation Purposes Only Jose Enrique Absaraka II Other [facility] 05-03-2021 zoster vaccine recombinant Jose Enrique Benji II Other [facility] 05-03-2021 zoster vaccine, live Benjami n Ball Other [facility] 01-28-2021 zoster vaccine recombinant Jose Enrique Benji II Other [facility] 01-28-2021 zoster vaccine, live Benjami n Ball Other [facility] 10-25-2020 COVID-19 Vaccine Moderna - Documentation Purposes Only Jose Enrique Benji II Other [facility] 09-27-2020 COVID-19 Vaccine Moderna - Documentation Purposes Only Jose Enrique Absaraka II Other [facility] 05-24-2020 influenza virus vaccine, split virus (incl. purified surface antigen) Cecilio Benjamin Other [facility] [employer] Other 05-24-2020 influenza virus vaccine, unspecified formulation [facility] 01-03-2019 diphtheria, tetanus toxoids and acellular pertussis vaccine, unspecified formulation Cecilio Benjamin Other [facility] 12-25-2018 pneumococcal polysaccharide vaccine, 23 valent Jose Enrique Absaraka II Other [facility] 04-30-2018 influenza virus vaccine, split virus (incl. purified surface antigen) Cecilio Benjamin Other [facility] [employer] Other 04-30-2018 influenza virus vaccine, unspecified formulation [facility] 04-09-2017 influenza virus vaccine, split virus (incl. purified surface antigen) Cecilio Benjamin Other [facility] [employer] Other 04-09-2017 influenza virus vaccine, unspecified formulation [facility] 05-31-2016 zoster vaccine, live Jose Enrique Absaraka II Other [facility] 05-13-2016 influenza virus vaccine, split virus (incl. purified surface antigen) Cecilio Benjamin Other [facility] [employer] Other 05-13-2016 influenza virus vaccine, unspecified formulation [facility] 05-09-2015 influenza virus vaccine, split virus (incl. purified surface antigen) Cecilio Benjamin Other [facility] [employer] Other 05-09-2015 influenza virus vaccine, unspecified formulation [facility] 03-06-2015 pneumococcal conjuga te vaccine, 13 valent Jose Enrique Absaraka II Other [facility] 05-07-2014 tetanus and diphther ia toxoids, adsorbed, preservative free, for adult use (5 Lf of tetanus toxoid and 2 Lf of diphtheria toxoid) Cecilio Benajmin Other [facility] 04-23-2013 tetanus and diphther ia toxoids, adsorbed, preservative free, for adult use (5 Lf of tetanus toxoid and 2 Lf of diphtheria toxoid) Cecilio Benjamin Other [facility] 08-21-2012 pneumococcal polysaccharide vaccine, 23 valent Cecilio Benjamin Other [facility] 12-12-2011 zoster vaccine, live Jose Enrique Leblanc II Other [facility] Payers Date Payer Category Payer Self-pay 2022 Unknown [id number] 2018 Medicare [id number] 2006 Medicare [id number] 2006 Unknown [id number] [id number] 1959 Medicare [id number] 2.1 6.840.1.181806.19 1959 Unknown [id number] 2.16. 840.1.049233.19 1941 Unknown [id number] 2.16.84 0.1.907118.3.579.2.593 1941 Unknown [id number] 2.16.84 0.1.760976.3.579.2.593 1941 Unknown [id number] 2.16.84 0.1.864742.3.579.2.593 1941 Unknown [id number] 2.16.84 0.1.899088.3.579.2.593 1941 Unknown [id number] 2.16.84 0.1.987424.3.579.2.593 1941 Unknown [id number] 2.16. 840.1.736824.3.579.2.196 1941 Unknown [id number] 2.16. 840.1.553430.3.579.2.196 1941 Unknown [id number] 2.16. 840.1.935145.3.579.2.196 1941 Unknown [id number] 2.16. 840.1.307416.3.579.2.196 1941 Unknown [id number] 2.16. 840.1.465744.3.579.2.196 1941 Unknown [id number] 2.16. 840.1.160405.3.579.2.196 1941 Unknown [id number] 2.16. 840.1.700553.3.579.2.196 1941 Unknown [id number] 2.16. 840.1.573290.3.579.2.196 1941 Unknown [id number] 2.16. 840.1.294436.3.579.2.196 1941 Unknown [id number] 2.16. 840.1.732319.3.579.2.196 1941 Unknown [id number] 2.16. 840.1.637746.3.579.2.196 1941 Unknown [id number] 2.16. 840.1.835541.3.579.2.196 Unknown [id number] 2.16.8 40.1.609554.3.579.2.531 Social History Date Type Detail Facility Start: 05-09-2021 End: 03-15-2023 Sex Assigned At [facility] Start: 1940 Sex Assigned At Male F [facility] Start: 06-13-2017 End: 01-22-2024 Tobacco smoking status IAIS Never smoked tobacco [facility] Start: 06-13-2017 Tobacco use and exposure Smokeless tobacco non-user [facility] Start: 05-09-2021 Alcohol intake Current drinke r of alcohol (finding) [facility] Start: 12-11-2017 Alcohol Comment [facility] Start: 1940 Sex Assigned At Not on file [facility] Start: 05-09-2021 End: 03-15-2023 History of Social function [facility] Adult Depression Screening Assessment 1 [facility] Start: 10-01-2024 End: 12-09-2024 Sex Male (finding) [facility] Medical Equipment Procedure Code Equipment Code Equipment Origin al Text Equipment Identifier Dates [place] Tenodesis 8mm Biocomposite 19.5mm Suture [place] Eyelet - [id number] Start: 06-29-2017 Sleeve V40 +0mm Offset [place] Taper Titanium Adapter Hip - [id number] Start: 01-01-2018 Screw Trident Secur-Fit Torx 6.5mm Titanium 20mm Bone Sterile Acetabular - [id number] Start: 01-01-2018 Clinical Notes 08-25-2022 to 10-01-2024 Note Date & Type Note Facility 10-01-2024 Evaluation note Diagnosis Onset Date Resolution Chronic bronchitis, simple acute October 01 025 8:30am Chronic kidney disease, stage 3a acute October 01 025 8:30am Generalized anxiety disorder acute October 01 025 8:30am Hypertension acute September 8:30am IFG (impaired fasting glucose) acute October 01 025 8:30am Lumbar spondylolysis acute 2024 8:30am Obstructive sleep apnea acute 2024 8:30am Chronic obstructive pulmonary disease with (acute) lower respiratory infection noneactive October 8:56am Acute exacerbation of chronic obstructive airways disease noneactive November 06, 2024 8:56am [facility] Work Phone: 1(703) 518-783202-12-2025 Evaluation note* Diagnosis Onset Date Resolution Status Admit Date Chronic bronchitis, simple acute October 01, 2024 8:30am Chronic kidney disease, stag e 3a acute October 01 025 8:30am Generalized anxiety disorder acute October 01, 2024 8:30am Hypertension acute September 8:30am IFG (impaired fasting glucose) acute October 01 025 8:30am Lumbar spondylolysis acute 2024 8:30am Obstructive sleep apnea acute 2024 8:30am Chronic obstructive pulmonar y disease with (acute) lower respiratory infection noneactive October 8:56am Acute exacerbation of chroni c obstructive airways disease noneactive 2024 8:56am Chronic obstructive pulmonar y disease with (acute) lower respiratory infection noneactive November 3:30pm Acute exacerbation of chroni c obstructive airways disease noneactive Apri l 2024 3:30pm [facility] Work Phone: 1(442) 759-843402-12-2025 Evaluation note* Diagnosis Onset Date Resolution Status Admit Date Chronic bronchitis, simple acute October 01, 2024 8:30am Chronic kidney disease, stag e 3a acute October 01, 2 025 8:30am Generalized anxiety disorder acute October 01, 2024 8:30am Hypertension acute September 8:30am IFG (impaired fasting glucose) acute October 01, 2024 8:30am Lumbar spondylolysis acute Febr ua2024 8:30am Obstructive sleep apnea acute F ebruary 2024 8:30am [facility] Work Phone: 1(595) 950-497906-04-2024 Evaluation note* Diagnosis Onset Date Resolution Status Chronic bronchitis, simple a cute Chronic kidney disease, stage 3a acute Elevated cholesterol acute Generalized anxiety disorder acute Hypertension acute Lumbar spondylolysis acute Obstructive sleep apnea acut e Medicare annual wellness visit, subsequent noneactive [facility] Work Phone: 1(262) 733-121502-09-2024 Evaluation note* Encounter Date Diagnosis Assessment Notes [...] and clinically improving, no further treatment necessary [employer] Other 02-02-2024 Evaluation note* Encounter Date Diagnosis Assessment Notes Treatment Notes Treatment Clinical Notes Sep, Carotid bruit, unspecified laterality (ICD-10 - R09.89) [facility] [facility] Other 01-23-2024 Evaluation note* Encounter Date Diagnosis [...] tid Initiate Prednisone _update office on Sunday [employer] [facility] Other 01-15-2024 Evaluation note* Encounter Date Diagnosis Assessment Notes Treatment Notes Treatment Clinical Notes Aug, JONATHAN (generalized anxiety disorder) (ICD-10 - F41.1) [employer] [facility] Other 12-13-2023 Evaluation note* Encounter Date Diagnosis [...] best 2/3 readings w/ goal < 135/85 [employer] [facility] Other 11-28-2023 Evaluation note* Encounter Date Diagnosis [...] daily for blisters and ulcerations. Moisturizers daily [facility] [facility] Other 11-21-2023 Evaluation note* Encounter Date Diagnosis [...] Call if develop increased pain or erythema [facility] [facility] Other 11-01-2023 Evaluation note* Encounter Date Diagnosis [...] use, the patient reduces the risk for OH, CVA, HTN, cardiac dysrhythmias and sudden cardiac [...] very active. No change in medical treatment [facility] Other 10-27-2023 Evaluation note* Encounter Date Diagnosis Assessment Notes Treatment Notes Treatment Clinical Notes May, JONATHAN (generalized anxiety disorder) (ICD-10 - F41.1) [facility] [facility] Other 10-11-2023 Evaluation note* Encounter Date Diagnosis [...] They may safely use Tylenol as needed. [facility] [facility] Other 08-01-2023 Miscellaneous Notes* Telephone Encounter - Neida Porter MA - 03/20/2023 12:26 PM EDT DATE OF SERVICE: 03/15/2023 PATIENT'S PHONE NUMBERS: [phone] (home) OR @[email or web address]@ PROVIDER: Dr. Jaeger PROCEDURE: Elective Pain Management Procedure Left message on machine Asked pt to call back and speak with the specialty triage nurse with update. Please obtain percentage better and the duration of improvement. Please inquire if there were any problems afterwards. Neida Brink [facility] Miscellaneous Notes* Telephone Encounter - Linda Knox LPN - 02/26/2023 4:42 PM EDT Spoke to patient in [facility] to pre procedure instructions. Pt must have a cpr ambulance driver. Pt advised to arrive 30 min [...] Advised on location of ASC-[address]nd [address] [facility] Pt will receive a follow up call several days after by a boilermaker central steam plant. If you experience any increase in weakness, difficulty walking or significant increase in pain thatlast more than 4 hours, please proceed to the Emergency Room and tell them you had a spine procedure done recently. Additionally, call us and notify us of these symptoms. Please call [phone] if you have any questions. Pt verbalized understanding. [facility] Miscellaneous Notes* Telephone Encounter - Linda Knox LPN - 02/19/2023 11:57 AM EDT Order approved Spoke to daughter in [facility] to pre procedure instructions. Daughter given scheduling number [phone] Pt must have a cpr ambulance driver. Pt advised to arrive 30 min prior to the time given by the residential sales rep. Pt advised will also receive a call the day before from the surgery center to confirm date/time. Pt can eat and drink as normal. and Pt can take medications as normal. No alcohol 24 hours prior. Pt is on ASA.- 81 mg okay to take. and must Advised on location of ASC-2nd floor [facility] Pt will receive a follow up call several days after by a boilermaker central steam plant. If you experience any increase in weakness, difficulty walking or significant increase in pain thatlast more than 4 hours, please proceed to the Emergency Room and tell them you had a spine procedure done recently. Additionally, call us and notify us of these symptoms. Please call [phone] if you have any questions. Pt verbalized [...] Celi as patient cannot hear well [phone] Patient has been identified by name and birthdate. Duration of symptoms: N/A Person calling: daughter: Celi Call patient at: N/A [phone] (home) [phone] (cell) Was an appointment scheduled: No Closing statement: Results or non-symptom based questions: Thank you for calling [facility], your call will be returned within the next business day. Camilla Frost documented [facility] Evaluation note* Encounter Date Diagnosis Assessment [...] use, the patient reduces the risk for OH, CVA, HTN, cardiac dysrhythmias and sudden cardiac [...] (ICD-10 - F41.1) Healthy diet, keep active [employer] Other 06-22-2023 Evaluation note* Encounter Date Diagnosis Assessment Notes Treatment Notes Treatment Clinical Notes Jan, Elevated cholesterol (ICD-10 - E78.00) Jan, Stage 3a chronic kidney disease (ICD-10 - N18.31) Jan, Primary hypertension (ICD-10 - I10) Jan, Screening PSA (prostate specific antigen) (ICD-10 - Z12.5) Jan, High risk medication use (ICD-10 - Z79.899) [employer] [facility] Other 06-15-2023 Evaluation note* Encounter Date Diagnosis [...] this time 6. Follow up as needed [facility] [facility] Other 04-24-2023 Evaluation note* Encounter Date Diagnosis [...] use of statin, experiencing ADR and stopped [facility] [facility] Other 03-23-2023 Evaluation note* Encounter Date Diagnosis [...] - M17.12) Quad exercises, ice/heat and Tylenol [facility] [facility] Other 03-23-2023 Evaluation note* Encounter Date Diagnosis [...] injection well. 6. 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) [facility] [facility] Other 01-06-2023 Evaluation note* Encounter Date Diagnosis Assessment Notes Treatment Notes Treatment Clinical Notes Aug, Carotid bruit, unspecified laterality (ICD-10 - R09.89) [employer] Other Evaluation noteNo assessment information available [facility] Work Phone: [facility]No [facility] Other Evaluation note* Diagnosis Spinal stenosis, lumbar region with neurogenic claudication- Primary Lumbar radiculopathy, chronic Thoracic or lumbosacral neuritis or radiculitis, unspecified [facility] Diagnosis Pseudoclaudication syndrome- Primary Spinal stenosis, lumbar region, with neurogenic claudication Lumbar radiculopathy Thoracic or lumbosacral neuritis or radiculitis, unspecified Pseudoclaudication syndrome Spinal stenosis, lumbar region, with neurogenic claudication Lumbar radiculopathy Thoracic or lumbosacral neuritis or radiculitis, unspecified [facility]* Diagnosis Onset Date Resolution Status Chronic bronchitis, simple a cute Chronic kidney disease, stage 3a acute Elevated cholesterol acute Generalized anxiety disorder acute Hypertension acute Lumbar spondylolysis acute Obstructive sleep apnea acut e [facility] Work Phone: History general Narrative [...] JANELLE 06/2017 Hospitalization History see surgical history [employer] Other Hospital Discharge instructionsAmbulatory Orders* Referral to Pain Management Location: None [facility] Work Phone: Summary Purpose Family History Relationship [...] September 8:30am Chronic kidney disease, stage 3a 2024 8:30am Generalized anxiety disorder October 012024 [...] September 8:30am Chronic kidney disease, stage 3a 2024 8:30am Generalized anxiety disorder October 012024 8:30am Hypertension October 01, 2024 8:30am IFG (impaired fasting glucose) October 01, 2024 8:30am Lumbar spondylolysis October 01, 2024 8:30am Obstructive sleep apnea October 01 025 8:30am Chronic obstructive pulmonar y disease with (acute) lower respiratory infection November 06, 2024 8:56am Acute exacerbation of chronic obstructiv e airways disease November 06, 2024 8:56am Chief Complaint Admit Date 4 month f/u October 01, 2024 8:30am URI November 06, 2024 8:5 6am ER follow up December 09, 2024 3:3 0pm Reason for Visit Admit Date Chronic bronchitis, simple September 8:30am Chronic kidney disease, stage 3a y 2024 8:30am Generalized anxiety disorder October 012024 8:30am Hypertension October 01, 2024 8:30am IFG (impaired fasting glucose) October 01, 2024 8:30am Lumbar spondylolysis October 01, 2024 8:30am Obstructive sleep apnea October 01 025 8:30am Chronic obstructive pulmonar y disease with (acute) lower respiratory infection November 06, 2024 8:56am Acute exacerbation of chronic obstructiv e airways disease November 06, 2024 8:56am Chronic obstructive pulmonar y disease with (acute) lower respiratory infection December 09, 2024 3:30pm Acute exacerbation of chronic obstructiv e airways disease December 09, 2024 3:30pm Additional Source Comments (unrecognized sect ion and content) No Status Records FoundNo Status Records FoundNo Status Records FoundNo Status Records FoundNo Status Records FoundNo Status Records FoundNo Status Records Found INFORMATION SOURCE (unrecogn ized section and content) DATE CREATED AUTHOR 02/06/2018 [facility] DATE CREATED AUTHOR AUTHOR'S ORGANIZ ATION 06/10/2018 [facility] DATE CREATED AUTHOR AUTHOR'S ORGANIZ ATION [facility]20[facility] DATE CREATED AUTHOR AUTHOR'S ORGANIZ ATION 12/21/2022 [facility] DATE CREATED AUTHOR AUTHOR'S ORGANIZ ATION 03/15/2023 [facility] DATE CREATED AUTHOR AUTHOR'S ORGANIZ ATION 03/22/2023 [facility] DATE CREATED AUTHOR AUTHOR'S ORGANIZ ATION 11/23/2024 [facility] REASON FOR VISIT (unrecogniz ed section [...] Enrique Leblanc II, MD Attending Provider Active Back Panel Padder Relationship Specialty Start Date End Date Cecilio Benjamin DO PCP - General Internal Medicine 09/04/13 Back Panel Padder Relationship Specialty Start Date End Date Cecilio Benjamin DO PCP - General Internal Medicine 09/04/13 Back Panel Padder Relationship Specialty Start Date End Date Cecilio Benjamin DO PCP - General Internal Medicine 09/04/13 Back Panel Padder Relationship Specialty Start Date End Date Cecilio Benjamin DO PCP - General Internal Medicine 09/04/13 Team Status: Active Member Role Status Dates Cecilio eBnjamin DO Primary Care Provider Active Start: October [...] Team Status: Inactive Member Role Status Dates Ceciloi Benjamin DO Primary Care Provide r, Attending Provider Active Start: November 06, 2024 End: November 06, 2024 Team Status: Active Member Role Status Dates Cecilio Benjamin DO Primary Care Provider Active Start: December 05, 2024 Jerry D Katko , DO Attending Provider Active S tart: December 05, 2024 Team Status: Inactive Member Role Status Dates Cecilio Benjamin , Primary Care Provide r, Attending Provider Active Start: December 09, 2024 End: December 09, 2024 Goals (unrecognized section and content) Goals may be documented in a n alternate section Source Comments (unrecognize d section and content) In the event this informatio n is protected by the Federal Confidentiality of Alcohol and Drug Abuse Patient Records regulations: The Federal rules restrict any use of the information to criminally investigate or prosecute any alcohol or drug abuse patient.[facility] the event this information is protected by the Federal Confidentiality of Alcohol and Drug Abuse Patient Records regulations: The Federal rules restrict any use of the information to criminally investigate or prosecute any alcohol or drug abuse patient.[facility] the event this information is protected by the Federal Confidentiality of Alcohol and Drug Abuse Patient Records regulations: The Federal rules restrict any use of the information to criminally investigate or prosecute any alcohol or drug abuse patient.[facility] the event this information is protected by the Federal Confidentiality of Alcohol and Drug Abuse Patient Records regulations: The Federal rules restrict any use of the information to criminally investigate or prosecute any alcohol or drug abuse patient.[facility] FOR RECORDS PERTAINING TO PATIENTS WHO [...] BE BASED ON THE PRIMARY CLINICAL RECORDS. [facility] [employer] [facility]. provides no warranty or guarantee of the accuracy or completeness of information in this document.
[2025-01-05 08:21] VITALS: BP 141/71; PULSE 76; TEMP 36.6; O2SAT 98
[2025-01-05 09:15] VITALS: BP 154/71; PULSE 71; O2SAT 97
[2025-01-05 09:16] VITALS: BP 152/78; PULSE 70; O2SAT 97
[2025-01-05] MEDS: BUPIVACAINE HCL 0.25% PF 25 MG/10 ML VIAL 4 ML INJ (09:24)
[2025-01-05] MEDS: LIDOCAINE HCL 2% 400 MG/20 ML MDV 16 ML INJ (09:25)
[2025-01-05] MEDS: METHYLPREDNISOLONE ACETATE 40 MG/ML VIAL 80 MG INJ (09:25)
--- NOTE | 2025-01-05 09:34 | P.ON_ITS ---
Date of procedure: 01/05/25 Pre-op diagnosis: Pain due to lumbar spondylosis without myelopathy Post-op diagnosis: same as pre-op Procedure: Procedure: Bilateral L4-5, L5-S1 radiofrequency ablation Medications: Bupivacaine 0.25% 6cc, lidocaine 2% 6cc, depomedrol 80mg The patient was seen and examined in the preoperative holding area.? The site was marked.? Written informed consent was obtained and placed on the chart.? The patient was brought to the medical procedure unit and placed in the prone position.? A timeout was completed verifying correct patient, procedure, positioning, and special requirements.? The skin overlying the target points, the designated medial branch, were prepped and draped in the usual sterile fashion.? The target point was achieved with a 20-gauge 15 cm with a 10 mm curved active tip radiofrequency cannula under direct fluoroscopic visualizati on.? The needle was inserted at level L4 on the right side. Needle tip position was confirmed with lateral fluoroscopic position.? Motor stimulation was carried out at 2 Hz up to 5 volts with the absence of extremity activity.? This was repeated at level L5, S1 on right side.?? Sensory stimulation was carried out.? Concordant pain was realized at the above- mentioned sites.? Then radiofrequency lesioning was carried out times 90 seconds at 80 degrees times 2 lesions at each level.? The radiofrequency probe was removed prior to cannula removal.? The above-mentioned injectate was placed in 1 mL increments.? The needle was removed. The same procedure, with the same steps, was then completed on the left side at the same levels. Insertion sites were covered.? The patient was taken to the postoperative recovery area and monitored for an appropriate length of time before being found suitable for discharge in the company of a responsible adult. Anesthesia: Local Surgeon: Maddie Villalobos Pathology: none sent Condition: stable Disposition: no change
== END 2025-01-05 09:35 | disposition home or self-care (01) ==
LOC: SURGOUT 07:54
PROVIDERS: PCP Internal Medicine; Visit Provider Anesthesiology
DX: M47.816 Spondylosis without myelopathy or radiculopathy, lumbar region (principal); M54.50 Low back pain, unspecified
CPT/HCPCS: 64635; 64636; J0665; J1010

== ENCOUNTER 2025-01-20 11:46 | Outpatient (OUT) | payer MEDICARE, OTHER, SELFPAY ==
--- NOTE | 2025-01-20 11:54 | XR_ITS ---
The [address] [address] Patient Name: NEISHA MITCHELL MRN: [id number] date: 1940 Sex: M Assigned Patient Location: [facility] Current Patient Location: [facility] Accession/Order Number: [id number] Exam Date: 01/20/2025 12:48 Report Date: 01/20/2025 12:53 At the request of: SARA TAYLOR DO Procedure: XR wrist LT min 3V LEFT WRIST - 3 views COMPARISON: None CLINICAL DATA: Left wrist pain medially since fall 2 days ago. AP, lateral and a single oblique view were obtained. There is osteopenia. On the oblique view, there is question of longitudinally oriented linear lucency at the lateral radial metaphysis that extends toward the epiphysis. This is not however definitely seen on the remaining views and might be artifactual. There is some soft tissue swelling and correlation is therefore recommended to exclude the possibility of a nondisplaced fracture. No other suspected fractures or dislocation are seen. There is narrowing of the joint space between the lunate and the radius and ulna as well as minor subchondral sclerosis. There is subtle chondrocalcinosis at the triangular fibrocartilage complex. There are minor degenerative changes involving the lateral intercarpal and first carpal metacarpal joints. There is a chronic-appearing bony ossicle lateral to the scaphoid. Additional soft tissue swelling is noted. XR/XR wrist LT min 3V IMPRESSION: OSTEOPENIA AND DEGENERATIVE CHANGES. EQUIVOCAL NONDISPLACED FRACTURE AT THE DISTAL RADIUS. PATIENT'S PAIN IS REPORTED TO BE MEDIAL. CLINICAL CORRELATION IS RECOMMENDED ALONG WITH FOLLOW-UP, WARRANTED. Impression dictated by: Ros Foster M.D. 01/20/2025 12:53 PM Dictation Location: [place] [address] Electronically authenticated by: [id number] Y Date: 01/20/2025 12:53
== END 2025-01-20 11:47 | disposition home or self-care (01) ==
LOC: RAD 11:48
PROVIDERS: PCP Internal Medicine; Visit Provider Internal Medicine
DX: M85.88 Other specified disorders of bone density and structure, other site (principal); S59.202A Unspecified physeal fracture of lower end of radius, left arm, initial encounter for closed fracture
CPT/HCPCS: 73110

== ENCOUNTER 2025-01-27 10:38 | Outpatient (OUT) | payer MEDICARE, OTHER, SELFPAY ==
--- OUTSIDE RECORDS SUMMARY | 2025-01-20 07:47 | XMS_ITS | Continuity of Care Document ---
Author Organization [facility] Address [address] [place] [address] Phone Support Name Relationship Address Phone Celi Thorpe Emergency Contact Unknown Cecilio Benjamin DO Personal Relationship [address] [place] [address] Jerry Gifford DO Personal Relationship [address] [place] [address] Care Teams Patient Care Team Team Status: Active Member Role Status Dates Cecilio Benjamin DO Primary Care Provider Active Visit Care Team Team Status: Inactive Member Role Status Vaughn Benjamin DO Primary Care Provide r, Attending Provider Active Start: November 06, 2024 End: November 06, 2024 Visit Care Team Team Status: Active Member Role Status Vaughn Benjamin DO Primary Care Provider Active Start: December 05, 2024 Jerry Gifford DO Attending Provider Active S tart: December 05, 2024 Visit Care Team Team Status: Inactive Member Role Status Vaughn Benjamin DO Primary Care Provide r, Attending Provider Active Start: December 09, 2024 End: December 09, 2024 Patient Care Team Team Status: Inactive Member Role Status Vaughn Benjamin DO Primary Care Provide r, Attending Provider Active Start: January 20, 2025 End: January 20, 2025 Chief Complaint and Reason for Visit Chief Complaint Admit Date URI November 06, 2024 8:5 6am ER follow up December 09, 2024 3:3 0pm Wheezing January 20, 2025 10:43 am Reason for Visit Admit Date Chronic obstructive pulmonar y disease with (acute) lower respiratory infection November 06, 2024 8:56am Acute exacerbation of chronic obstructiv e airways disease November 06, 2024 8:56am Benign prostatic hyperplasia with lower urinary tract symptoms December 09, 2024 3:30pm Chronic kidney disease, stage 3a November 192024 3:30pm Hypertension December 09, 2024 3:3 0pm IFG (impaired fasting glucose) November 3:30pm Lumbar spondylolysis December 09, 2024 3: 30pm Nonfamilial nocturnal leg cramps November 192024 3:30pm Obstructive sleep apnea December 09, 2024 3:30pm Chronic obstructive pulmonar y disease with (acute) lower respiratory infection December 09, 2024 3:30pm Acute exacerbation of chronic obstructiv e airways disease December 09, 2024 3:30pm Acute exacerbation of chronic obstructiv e airways disease January 20, 2025 10:43am Chronic kidney disease, stage 3a January 10:43am Contusion of left wrist January 20, 2025 1 0:43am Hypertension January 20, 2025 10:43 am Left wrist pain January 20, 2025 10:43 am Obstructive sleep apnea January 20, 2025 1 0:43am Allergies, Adverse Reactions, Alerts Allergen Type Severity Reaction Last Updated Verified Status Yecwoji-JDL-UlA Reductase Inhibitor Allergy Unknown Unknown Reaction December 09, 2024 3:34pm Yes Active Social History Smoking Status Status Start Date End Date Date of Observa tion Never smoked tobacco (finding) January 22, 2024 9:53am Observation Status Observation Response Date of Response Patient Sex Male January 20, 2025 1 1:47am Assigned Sex Male 1940 Family History Relationship Condition Age at Onset Recorded Date/T niru father Unknown Problems Active Problems Medical Problem Onset Date Status Obstructive sleep apnea Active Generalized anxiety disorder Act maribell 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, simple Activ e Elevated cholesterol Active IFG (impaired fasting glucose) A ctive Weight loss Active Benign prostatic hyperplasia with lower urinary tract symptoms Active Left wrist pain Active Chronic kidney disease, stage 3a Active Acute exacerbation of chronic obstructive airway s disease Active Lumbar spondylolysis Active Hypertension Active Contusion of left wrist Active Inactive/Resolved Problems Medical Problem Onset Date Status Chronic obstructive pulmonary disease with (acut e) exacerbation Resolved Acute bronchitis due to other specified organism s Resolved Medications Medication Status Dose Units Route Directions Qty Days St art Date Stop Date End Date Instructions Albuterol Sulfate 90 mcg/actuatio n HFA aerosol inhaler Discont inued 2 PUFF INHALA TION EVERY 4-6 HOURS as needed for shortness of breath or wheezing 8.5 Februa 2023 1:00am October 19, 2023 6:55p m Tamsulosin 0.4 mg capsule Discont inued 0 .ROUTE .COMPLEX January 07, 2024 12:45p m 2024 10:10 am TAKE 1 CAPSULE DAILY Escitalopram Oxalate 10 mg tablet Discont inued 0 .ROUTE .COMPLEX April 02, 2024 1:32pm 2024 10:10 am TAKE 1 TABLET AT BEDTIME Nabumetone 500 mg tablet Discont inued 0 .ROUTE .COMPLEX April 02, 2024 1:32pm 2024 10:10 am TAKE 1 TABLET TWICE A DAY Clonazepam 0.5 mg tablet Discont inued 0.5 MG PO Daily April 02, 2024 1:33pm 2024 10:10 am Hydrocortiso ne (Proctosol Hc) 2.5 % cream with perineal applicator Discont inued 1 APPLIC MO 1 to 2 times per day as needed for hemorrhoids Decemb er 2023 1:00am 2024 10:11 am Fluticasone Propion-Salm eterol 113-14 mcg/actuatio n aerosol powdr breath activated Discont inued 2 INH INHALA TION Every 12 hours 09 18November 07, 2024 12:00a m November 11, 2024 4:28p m Fluticasone Propion-Salm eterol (Advair Hfa) 115-21 mcg/actuatio n HFA aerosol inhaler Discont inued 2 PUFF INHALA TION Every 12 hours 08 18November 11, 2024 12:00a m January 20, 2025 11:22 am Albuterol Sulfate 2.5 mg /3 mL (0.083 %) solution for nebulization Active 2.5 MG INHALA TION EVERY 4-6 HOURS as needed for shortness of breath or wheezing November 11, 2024 5:27pm Inhalational Spacing Device (Aerochamber Mini) spacer Discont inued 0 .ROUTE .MEDSUPPLY December 03, 2024 12:00a m December 04, 2024 10:16 am As directed Inhalational Spacing Device spacer Active 0 .Route December 04, 2024 12:00a m As directed Acetaminophe n 325 mg tablet Active 325 MG PO Every 8 hours as needed 2023 1:00am 2 tablets by mouth orally every 8 hours PRN Amlodipine 2.5 mg tablet Discont inued 2.5 MG PO Daily 2023 1:00am October 19, 2023 6:55p m Clobetasol 0.05 % ointment Active 1 APPLIC TOPICA L Twice daily 2023 1:00am Clonazepam 0.5 mg tablet Discont inued 0.5 MG PO Daily at bedtime 2023 1:00am October 19, 2023 6:55p m Doxycycline Hyclate 100 mg capsule Discont inued 100 MG PO Twice daily 2023 1:00am October 19, 2023 11:06 am Escitalopram Oxalate 10 mg tablet Discont inued 10 MG PO Daily at bedtime 2023 1:00am October 19, 2023 6:55p m Mupirocin 2 % ointment Active 1 APPLIC TOPICA L Twice daily 2023 1:00am Nabumetone 500 mg tablet Discont inued 500 MG PO Twice daily 2023 1:00am October 19, 2023 6:55p m Omeprazole 20 mg capsule,vikash yed release(DR/E C) Discont inued 20 MG PO Daily 2023 1:00am October 19, 2023 6:55p m Silver Sulfadiazine 1 % cream Active 1 APPLIC TOPICA L Daily 2023 1:00am Tamsulosin 0.4 mg capsule Discont inued 0.4 MG PO Daily 2023 1:00am October 19, 2023 6:55p m Triamcinolon e Acetonide 0.1 % ointment Discont inued 1 APPLIC TOPICA L Twice daily 2023 1:00am October 19, 2023 6:55p m Amlodipine 2.5 mg tablet Discont inued 2.5 MG PO Daily 90 90 October 19, 2023 11:05a m Febru griselda 2024 10:10 am Clonazepam 0.5 mg tablet Discont inued 0.5 MG PO Daily at bedtime 90 October 19, 2023 11:06a m Augus t 2023 1:34p m Escitalopram Oxalate 10 mg tablet Discont inued 10 MG PO Daily at bedtime 90 October 19, 2023 11:07a m Augus t 2023 1:34p m Nabumetone 500 mg tablet Discont inued 500 MG PO Twice daily 180 October 19, 2023 11:07a m Augus 2023 1:34p m Omeprazole 20 mg capsule,vikash yed release(DR/E C) Discont inued 20 MG PO Daily 90 October 19, 2023 11:07a m Febru [email or web address] 10:10 am Tamsulosin 0.4 mg capsule Discont inued 0.4 MG PO Daily 90 October 19, 2023 11:08a m January 07, 2024 12:45 pm Triamcinolon e Acetonide 0.1 % ointment Active 1 APPLIC TOPICA L Twice daily 80 October 19, 2023 11:08a m Albuterol Sulfate 90 mcg/actuatio n HFA aerosol inhaler Discont inued 2 PUFF INHALA TION EVERY 4-6 HOURS as needed for shortness of breath or wheezing 8.5 October 19, 2023 11:09a m January 22, 2024 9:29a m Albuterol Sulfate 2.5 mg /3 mL (0.083 %) solution for nebulization Discont inued 2.5 MG INHALA TION EVERY 4-6 HOURS as needed for shortness of breath or wheezing 540 October 19, 2023 1:00am October 30, 2023 1:20p m Fluticasone Propion-Salm eterol (Wixela Inhub) 250-50 mcg/dose blister with device Discont inued 1 INH INHALA TION Twice daily 60 January 22, 2024 12:00a m November 07, 2024 4:41p m Albuterol Sulfate 90 mcg/actuatio n HFA aerosol inhaler Active 2 PUFF INHALA TION EVERY 4-6 HOURS as needed for shortness of breath or wheezing 8.5 January 22, 2024 9:28am Albuterol Sulfate 2.5 mg /3 mL (0.083 %) solution for nebulization Discont inued 2.5 MG INHALA TION EVERY 4-6 HOURS as needed for shortness of breath or wheezing 540 90 October 30, 2023 1:20pm November 06, 2024 11:42 am Doxycycline Hyclate 100 mg capsule Active 100 MG PO Twice daily December 09, 2024 4:30pm Fluticasone Propionate 250 mcg/actuatio n blister with device Discont inued 1 INH INHALA TION Every 12 hours 60 January 20, 2025 12:00a m January 20, 2025 11:31 am Montelukast 10 mg tablet Active 10 MG PO Daily at bedtime 30 January 20, 2025 12:00a m Fexofenadine (Allergy Relief (Fexofenadin e)) 180 mg tablet Active 180 MG PO Daily 30 January 20, 2025 12:00a m Fluticasone Propion-Salm eterol (Advair Diskus) 250-50 mcg/dose blister with device Active 1 INH INHALA TION Every 12 hours 60 January 20, 2025 12:00a m Amlodipine 2.5 mg tablet Active 2.5 MG PO Daily 90 90 2024 10:08a m Nabumetone 500 mg tablet Active 0 .ROUTE .COMPLEX 180 2024 10:08a m TAKE 1 TABLET TWICE A DAY Omeprazole 20 mg capsule,vikash yed release(DR/E C) Active 20 MG PO Daily 90 2024 10:08a m Tamsulosin 0.4 mg capsule Active 0.4 MG PO Daily at bedtime 90 90 2024 10:08a m Escitalopram Oxalate 10 mg tablet Active 10 MG PO Daily 90 90 2024 10:09a m Clonazepam 0.5 mg tablet Active 0.5 MG PO Daily 90 2024 10:10a m Aspirin 81 mg tablet,chewa ble Active 81 MG PO Daily 2024 1:00am Doxycycline Hyclate 100 mg capsule Discont inued 100 MG PO Twice daily November 06, 2024 12:00a m December 09, 2024 4:30p m Prednisone 20 mg tablet Active 20 MG PO As Directed November 06, 2024 12:00a m 1 tab tid w/ food x 3 days, then bid w/ food x 3 days, then qd w/ food x 3 days Albuterol Sulfate 2.5 mg /3 mL (0.083 %) solution for nebulization Discont inued 2.5 MG INHALA TION EVERY 4-6 HOURS as needed for shortness of breath or wheezing 540 90 November 06, 2024 11:42a m November 11, 2024 5:29p m Immunizations Immunization Event Date Not Given Reason Dose Number Operations Clerk Lot Number Vaccine Information Statement (VIS) Detail Pfizer/Mary , Pediatric Age 5-11 May 31, 2022 COVID-19 mRNA-1273 (Moderna) September 27, 2020 COVID-19 mRNA-1273 (Moderna) October 25, 2020 COVID-19 mRNA-1273 (Moderna) July 25, 2021 COVID-19 (MODERNA) [id number] [id number] and older May 30, 2023 COVID-19 mRNA Bivalent Booster ([employer]) May 31, 2022 DTap, unspecified January 03, 2019 Fluzone TIV High-Dose 65YR+ May 28, 2024 [id number] influenza, unspecified formulation May 09, 2015 influenza, unspecified formulation May 13, 2016 influenza, unspecified formulation April 09, 2017 influenza, unspecified formulation April 30, 2018 influenza, unspecified formulation May 24, 2020 influenza, unspecified formulation June 13, 2022 influenza, unspecified formulation May 30, 2023 Pneumococcal Conjugate Vaccine, 13 valent March 06, 2015 Pneumococcal Polysacc. Vaccine, 23 valent August 21, 2012 Pneumococcal Polysacc. Vaccine, 23 valent December 25, 2018 Zoster Vaccine Recombinant, Adjuvanted January 28, 2021 Zoster Vaccine Recombinant, Adjuvanted May 03, 2021 Tetanus, Diphtheria adult, 5 Lf pres free abs April 23, 2013 Tetanus, Diphtheria adult, 5 Lf pres free abs May 07, 2014 Shingles (Zoster) December 12, 2011 Shingles (Zoster) May 31, 2016 Shingles (Zoster) January 28, 2021 Shingles (Zoster) May 03, 2021 Relevant Diagnostic Tests and/or Laboratory Data Laboratory Results Test Date/Time Result Interpretation Reference Range Result Comment Performing Site POC SARS CoV-2 Antigen November 06, 2024 9:18am Negative SARS-CoV-2 Ag (CV2AG) December 05, 2024 11:00am NEGATIVE NEGATIVE This test has no t been FDA cleared or approved, but has beenauthorized by the FDA under an Emergency Use Authorization(EUA ) for use by authorized laboratories certified underIA [...] declaration isterminated or authorization is revoked sooner. Bedside Influenza Type A Antigen December 05, 2024 11:00am Negative Negative for Flu A protein antigen. Infection due to Flu Acannot be ruled out. Flu A antigen in the sample may bebelow the detection limit of the test. Troponin I High Sensitivity December 05, 2024 11:05am 15.5 pg/mL 4.0-76.1 CUT-OFF POINTS HAVE BEEN ESTABLISHED BASED ON THE FOURTHUNIVERSAL DEFINITION OF MYOCARDIAL INFARCTION. THE UPPERREFERENCE LIMIT (URL) OF TROPONIN, DEFINED THE 99THPERCENTILE OF cTnI DISTRIBUTION IN A REFERENCE POPULATION,HAS BEEN CONFIRMED THE DECISION THRESHOLD FOR MIDIAGNOSIS.99TH PERCENTILE = 76.2 PG/MLNOTE: HIGH-SENSITIVITY TROPONIN ASSAY IS NOT INTENDED TO BEUSED IN ISOLATION BUT SHOULD BE INTERPRETED IN CONJUNCTIONWITH OTHER DIAGNOSTIC AND CLINICAL INFORMATION. Magnesium Level December 05, 2024 11:05am 1.8 mg/dL 1.8-2.4 Anion Gap December 05, 2024 11:05am 11.1 Basophils # (Auto) December 05, 2024 11:05am 0.0 10 3/uL 0.0-0.1 Influenza Type A (Rapid) November 06, 2024 9:18am Negative Bedside Influenza Type B Antigen December 05, 2024 11:00am Negative Negative for Flu B protein antigen. Infection due to Flu Bcannot be ruled out. Flu B antigen in the sample may bebelow the detection limit of the test. BUN/Creatinin e Ratio December 05, 2024 11:05am 18.0 Basophils (%) (Auto) December 05, 2024 11:05am 0.5 % 0.2-2.0 Influenza Type B (Rapid) November 06, 2024 9:18am Negative Blood Urea Nitrogen December 05, 2024 11:05am 24.0 mg/dL Above high normal 7.0-18.0 Eosinophils # (Auto) December 05, 2024 11:05am 0.3 10 3/uL 0.0-0.7 Calcium Level December 05, 2024 11:05am 8.9 mg/dL 8.5-10.1 Eosinophils (%) (Auto) December 05, 2024 11:05am 4.8 % 0.9-7.0 Chloride Level December 05, 2024 11:05am 103 mmol/L 98-107 Hematocrit December 05, 2024 11:05am 41.1 % Below low normal 42.0-54.0 Carbon Dioxide Level December 05, 2024 11:05am 29.1 mmol/L 21.0-32.0 Hemoglobin December 05, 2024 11:05am 14.1 g/dL 14.0-18.0 Creatinine December 05, 2024 11:05am 1.33 mg/dL Above high normal 0.70-1.30 Immature Granulocyte # (Auto) December 05, 2024 11:05am 0.01 10 3/uL 0.00-0.03 Estimated GFR () December 05, 2024 11:05am >60 >=60 mL/min/1.7 3m 2 Immature Granulocyte % (Auto) December 05, 2024 11:05am 0.2 % 0.0-0.5 Estimated GFR (Non- December 05, 2024 11:05am 51 Below low normal >=60 mL/min/1.7 3m 2 Lymphocytes # (Auto) December 05, 2024 11:05am 0.9 10 3/uL Below low normal 1.2-3.8 Glucose Level December 05, 2024 11:05am 101 mg/dL 74-106 Lymphocytes (%) (Auto) December 05, 2024 11:05am 16.7 % Below low normal 20.5-60.0 Potassium Level December 05, 2024 11:05am 4.2 mmol/L 3.5-5.1 Mean Corpuscular Hemoglobin December 05, 2024 11:05am 32.3 pg 25.9-34.0 Sodium Level December 05, 2024 11:05am 139 mmol/L 136-145 Mean Corpuscular Hemoglobin Concent December 05, 2024 11:05am 34.3 g/dL 29.9-35.2 Mean Corpuscular Volume December 05, 2024 11:05am 94.3 fL Above high normal 80.0-94.0 Monocytes # (Auto) December 05, 2024 11:05am 0.6 10 3/uL 0.3-0.8 Monocytes (%) (Auto) December 05, 2024 11:05am 10.1 % 1.7-12.0 Mean Platelet Volume December 05, 2024 11:05am 10.3 fL 9.5-13.5 Neutrophils # (Auto) December 05, 2024 11:05am 3.7 10 3/uL 1.4-6.5 Neutrophils (%) (Auto) December 05, 2024 11:05am 67.7 % 43.0-75.0 Platelet Count December 05, 2024 11:05am 104 10 3/uL Below low normal 150-450 Red Blood Count December 05, 2024 11:05am 4.36 10 6/uL Below low normal 4.70-6.10 Red Cell Distribution Width December 05, 2024 11:05am 12.7 % 11.0-15.0 Corrected White Blood Count December 05, 2024 11:05am 5.5 10 3/uL 4.0-11.0 Vital Signs Vital Reading Result Reference Range Collection Date/Time Height 66 [in_i] November 06 9:02am Weight 81.36 kg November 06 9:02am Heart Rate 82 /min 60-100 November 06 9:02am Respiratory rate 24 /min 12-24 November 06, 2024 9:02am Oxygen saturation by Pulse oximetry 98 % 95-100 November 06, 2024 9:0 2am BP Systolic 130 mm[Hg] 100-140 November 06 9:02am BP Diastolic 67 mm[Hg] 60-100 November 06 9:02am BMI (Body Mass Index) 28.9 kg/m2 November 06, 2024 9:02am Height 66 [in_i] December 09 3:37pm Weight 81.36 kg December 09 3:37pm Heart Rate 75 /min 60-100 December 09 3:37pm Respiratory rate 12 /min 12-24 December 09, 2024 3:37pm Oxygen saturation by Pulse oximetry 98 % 95-100 December 09, 2024 3:3 7pm BP Systolic 153 mm[Hg] 100-140 December 09 3:37pm BP Diastolic 74 mm[Hg] 60-100 December 09 3:37pm BMI (Body Mass Index) 28.9 kg/m2 December 09, 2024 3:37pm Height 66 [in_i] January 20, 2025 10:50am Weight 80.37 kg January 20, 2025 10:50am Heart Rate 66 /min 60-100 January 20, 2025 10:50am Respiratory rate 16 /min 12-January 20, 2 025 10:50am Oxygen saturation by Pulse oximetry 95 % 95-100 January 20, 2025 10:50 am BP Systolic 134 mm[Hg] 100-140 January 20, 2025 10:50am BP Diastolic 74 mm[Hg] 60-100 January 20, 2025 10:50am BMI (Body Mass Index) 28.5 kg/m2 January 202024 10:50am Advance Directives Advance Directive Response Recorded Date/ Time Advance Directives No January 21 9:53am Insurance Providers Guarantor Ruperto Thorpe Address [address] [facility] [address] [facility] [address] Contact Info. Home Phone: Payer Policy Id Coverage Id Subscriber's Name Subscriber Id Effective Date Expiration Date Medicare [id number] Ruperto Thorpe [id number] [place] [employer] [id number] Ruperto Thorpe [id number] Encounters Encounter Location(s) Arrival/Admit Date Discharge/Depart Date Provider(s) Departed Physician/Prov ider Office Visit [facility] Physician [facility] November 06, 2024 8:56am November 06, 2024 9:26am eCcilio Benjamin DO Non-patient / Non-visit [facility] Physician [facility] December 05, 2024 11:05am Elysia Duenas DO Departed Physician/Prov ider Office Visit [facility] Physician [facility] December 09, 2024 3:30pm December 09, 2024 4:43pm Cecilio Benjamin DO Departed Physician/Prov ider Office Visit [facility] Physician [facility] January 20, 2025 10:43am January 20, 2025 11:47am Cecilio Benjamin DO Recent Diagnosis Onset Date Admit Date Chronic obstructive pulmonar y disease with (acute) lower respiratory infection November 06, 2024 8:56am Acute exacerbation of chroni c obstructive airways disease November 06, 2024 8:56am Benign prostatic hyperplasia with lower urinary tract symptoms December 09, 2024 3:30pm Chronic kidney disease, stage 3a December 09, 2024 3:30pm Hypertension December 09, 2024 3:30pm IFG (impaired fasting glucose) A pril 2024 3:30pm Lumbar spondylolysis December 09, 2024 3:30pm Nonfamilial nocturnal leg cramps December 09, 2024 3:30pm Obstructive sleep apnea December 092024 3:30pm Chronic obstructive pulmonar y disease with (acute) lower respiratory infection December 09, 2024 3:30pm Acute exacerbation of chroni c obstructive airways disease December 09, 2024 3:30pm Acute exacerbation of chroni c obstructive airways disease January 20, 2025 10:43am Chronic kidney disease, stage 3a January 20, 2025 10:43am Contusion of left wrist January 10:43am Hypertension January 20, 2025 1 0:43am Left wrist pain January 20, 2025 1 0:43am Obstructive sleep apnea January 10:43am Assessments Diagnosis Onset Date Resolution Status Admit Date Chronic obstructive pulmonar y disease with (acute) lower respiratory infection noneactive October 8:56am Acute exacerbation of chroni c obstructive airways disease noneactive [facility] 2024 8:56am Benign prostatic hyperplasia with lower urinary tract symptoms acute December 09, 2024 3:30pm Chronic kidney disease, stag e 3a acute December 09, 2024 3:30pm Hypertension acute December 09, 2024 3:30pm IFG (impaired fasting glucose) acute December 09, 2024 3:30pm Lumbar spondylolysis acute [facility] 2024 3:30pm Nonfamilial nocturnal leg cramps acute December 09, 2024 3:30pm Obstructive sleep apnea acute A pril 2024 3:30pm Chronic obstructive pulmonar y disease with (acute) lower respiratory infection noneactive November 3:30pm Acute exacerbation of chroni c obstructive airways disease noneactive [facility] 2024 3:30pm Acute exacerbation of chroni c obstructive airways disease noneactive January 20, 2025 10:43am Chronic kidney disease, stag e 3a acute January 20, 2025 1 0:43am Contusion of left wrist acute [facility] 2024 10:43am Hypertension acute January 20 10:43am Left wrist pain acute January 20, 2025 10:43am Obstructive sleep apnea acute [facility] 2024 10:43am Plan of Treatment Author Cecilio Benjamin [facility] Authored December 09, 2024 9:3 5pm I have instructed this patie nt to use Robitussin or Mucinex for cough, saline and Flonase NS for congestion and Tylenol for pain and fever. Continue antibiotics until all the medication has been taken. Report to the ER if develop any CP or SOB Instructed to continue Advair bid. Use SHARIF as needed. I have instructed this patient to consume a healthy, low-fat, low-salt diet. I have also encouraged them to continue exercise with weight loss to achieve/maintain a BMI < 30. I have instructed this patient on the correct procedure for obtaining home BP measurements: - rest for 5 minutes w/o talking. - positioned w/ feet on floor and arms supported. - average best 2/3 readings w/ goal < 135/85. - update office w/ home readings in 2 weeks. Continue Amlodipine without interruption I instructed this patient on the benefits of adequate control of hypertension and diabetes, if appropriate. I have also instructed them to avoid use of NSAIDs due to the adverse effects on renal function. I instructed them on adequate fluid balance and to consume at least 48 oz of fluids daily. I also instructed them to monitor for an unexplained increase in weight and lower extremity edema. They have been instructed to notify the office for any changes or concerns. I have instructed this patient to avoid bending, twisting or lifting. I have also instructed on use of intermittent heat and ice as needed. They may schedule a massage or gentle manipulation. I instructed them on the safe use of Tylenol, Lidocaine and stretching exercises. I informed them of alternative modes of treatment for severe pain, which may include referral to physical therapy or pain management. f/o Pain Clinic Neurogenic claudication? His A1C is between 5.7-6.5%. Instructed on low carb, high fiber diet. Instructed on routine exercise program for 30-60min three times weekly. Instructed on correlation between obesity and insulin resistance and encouraged to lose weight. Monitor A1C every 6 months. A1C < 5.5% Recent weight loss has improved his readings Healthy diet, avoid sweets This patient is aware of the benefits associated with JACI: With continued use, the patient reduces the risk for TX, CVA, HTN, cardiac dysrhythmias and sudden cardiac deaths. The patient is also aware of the association between JACI and morning headaches, daytime somnolence, fatigue and obesity, which also has been improved with continued use. The patient is compliant with treatment, wearing the equipment every night for greater than 4 hours. The patient is instructed to continue use of the CPAP for JACI treatment. Instructed to cut back on caffeine consumption. Instructed to cut back on quantity of fluid to 96oz/day. Gentle stretches prior to bedtime. Avoid strenuous activity Instructed to decrease fluid intake to 96oz / day. Instructed to decongestants and anticholinergic meds. Instructed to d/c all caffeine. Author Cecilio Benjamin [facility] Authored January 20, 2025 11:44 am I have instructed this patie nt to consume a healthy, low-fat, low-salt diet. I have also encouraged them to continue exercise with weight loss to achieve/maintain a BMI < 30. I have instructed this patient on the correct procedure for obtaining home BP measurements: - rest for 5 minutes w/o talking. - positioned w/ feet on floor and arms supported. - average best 2/3 readings w/ goal < 135/85. - update office w/ home readings in 2 weeks. Continue Amlodipine without interruption I instructed this patient on the benefits of adequate control of hypertension and diabetes, if appropriate. I have also instructed them to avoid use of NSAIDs due to the adverse effects on renal function. I instructed them on adequate fluid balance and to consume at least 48 oz of fluids daily. I also instructed them to monitor for an unexplained increase in weight and lower extremity edema. They have been instructed to notify the office for any changes or concerns. This patient is aware of the benefits associated with JACI: With continued use, the patient reduces the risk for TX, CVA, HTN, cardiac dysrhythmias and sudden cardiac deaths. The patient is also aware of the association between JACI and morning headaches, daytime somnolence, fatigue and obesity, which also has been improved with continued use. The patient is compliant with treatment, wearing the equipment every night for greater than 4 hours. The patient is instructed to continue use of the CPAP for JACI treatment. Instructed to continue Advair bid. Use SHARIF as needed. Author Cecilio Benjamin [facility] Authored November 06, 2024 9:2 1am Push fluids and rest. Begin Prednisone and taper over several days Continue HHN qid I have instructed this patient to use Robitussin or Mucinex for cough, saline and Flonase NS for congestion and Tylenol for pain and fever. Continue antibiotics until all the medication has been taken. Report to the ER if develop any CP or SOB Future Tests Future scheduled test information is unavailable Pending Tests Test Name Ordered Date Scheduled Date XR wrist LT min 3V* January 20, 2025 11:28am Future Visits Future appointment information is unavailable Referrals to Other Providers Referral information is unavailable Future Procedures Future procedure information is unavailable Future Medications Future medication information is unavailable Patient Instructions Patient instructions are unavailable
--- OUTSIDE RECORDS SUMMARY | 2025-01-27 10:42 | XMS_ITS | Referral Summary ---
Author Organization [facility] Address [address] [place] [address] Care Team Providers Care Cooking Show Host Name Role Phone Unavailable Primary Care Provider Unavailabl e Social History Tobacco Use Types Packs/Day Years Used Date Smoking Tobacco: Never Assessed [place] Safety & Environment Answer Date Rec orded Fear of Current or Ex-Partner Not on file Emotionally Abused Not on file 10/11/2023 Physically Abused Not on file 10/11/2023 Sexually Abused Not on file 10/11/2023 Physically or Sexually Abused Not on file Sex and Gender Information Value Date Recorded Sex Assigned at Not on file Gender Identity Not on file Sexual Orientation Not on file Plan of Treatment Not on file
--- OUTSIDE RECORDS SUMMARY | 2025-01-27 10:42 | XMS_ITS | Clinical Summary ---
Author Organization [facility] Address [address] [address] Care Team Providers Care Jig Grinder Set Up Operator Name Role Phone Unavailable Primary Care Provider [...]
--- OUTSIDE RECORDS SUMMARY | 2025-01-27 10:42 | XMS_ITS | Clinical Summary ---
Author Organization [facility] Address [address] [place] [address] Care Team Providers Care Sow Manager Name Role Phone Unavailable Primary Care Provider Unavailabl e Social History Tobacco Use Types Packs/Day Years Used Date Smoking Tobacco: Never Assessed Sex and Gender Information Value Date Recorded Sex Assigned at Not on file Legal Sex Male 7:36 PM EDT Gender Identity Not on file Sexual Orientation Not on file Plan of Treatment Not on file
--- OUTSIDE RECORDS SUMMARY | 2025-01-27 10:42 | XMS_ITS | Clinical Summary ---
Author Organization [facility] Address [facility] [place] [address] Care Team Providers Care Mattress Finisher Name Role Phone Cecilio Benjamin DO Primary Care Provider [phone] Allergies Active Allergy Reactions Criticality Noted Date Comments Bacitracin Unknown 09/11/2013 Medications Multivitamin capsule Take 1 capsule by mouth once daily. Active tamsulosin ER (FLOMAX) 0.4 mg cp24 Take 0.4 mg by mouth. Active escitalopram oxalate (LEXAPRO) 10 mg tablet Take 10 mg by mouth once daily. Active omeprazole (PRILOSEC) 20 mg capsule Take 20 mg by mouth once daily. Active clonazePAM (KLONOPIN) 0.5 mg tablet Take 0.5 mg by mouth at bedtime as needed (1/2 tab). Active CALCIUM CARBONATE/VITAMI N D3 (VITAMIN D-3 ORAL) Take 1 tablet by mouth once daily. Active COMPOUNDED PRESCRIPTION Fiber Well 5mg. Take daily Active FLUTICASONE/SALM ETEROL (ADVAIR DISKUS INHALATION) Inhale 1 Puff as instructed once daily. Active FISH OIL-DHA-EPA ORAL Take 1 capsule by mouth once daily. Active acetaminophen (TYLENOL) 500 mg tablet Take 2 tablets by mouth every 8 hours. (Mild pain reliever) 90 tablet 1 8 Active docusate sodium (COLACE) 100 mg capsule Take 1 capsule by mouth twice daily. (Stool softener) 60 capsule 8 Active aspirin, enteric coated (ASPIRIN, ENTERIC COATED) 325 mg EC tablet Take 1 tablet by mouth twice daily. (Blood thinner to prevent blood clots) 84 tablet 8 Active Additional Information Patient taking differently: 81 mgORAL 2 TIMES DAILY, (Blood thinner to prevent blood clots), Reason: Changing Therapy/Dosage Form, Reported on 05/09/2021 Amoxicillin 500 mg tablet Take 4 tablets by mouth 1 hour prior to procedure and 2 tablets by mouth 6 hours after procedure 6 tablet 5 9 Active MELATONIN, BULK, MISC Take 2 tablets by mouth. Active nabumetone (RELAFEN) 500 mg tablet 1 Active albuterol HFA (PROVENTIL HFA, VENTOLIN HFA) 90 mcg/actuation inhaler 1 Active Active Problems Problem Noted Date Diagnosed Date Primary osteoarthritis of right hip 01/01/2018 Osteoarthritis of right hip 10/30/2017 Overview (10/30/2017): Added automatically from request for surgery [id number] Complete tear of right rotator cuff 05/17/2017 Overview (05/17/2017): Added automatically from request for surgery [id number] Incomplete tear of right rotator cuff 01/11/2017 Pain, upper back 09/29/2013 Anxiety 09/11/2013 Impingement syndrome, shoulder 09/11/2013 Cubital tunnel syndrome 09/11/2013 Status post cervical spinal fusion 09/11/2013 Multiple allergies Overview (09/11/2013): soap, chemicals perfumes Asthma GERD (gastroesophageal reflux disease) JACI (obstructive sleep apnea) BPH (benign prostatic hyperplasia) Family History Medical History Relation Comments kidney failure Father Stroke Mother Relation Status Comments Brother Father Mother Social History Tobacco Use Types Packs/Day Years Used Date Smoking Tobacco: Never Smokeless Tobacco: Never Tobacco Cessation:Counseling Given: No Alcohol Use Standard Drinks/Week Comments Yes 0 (1 standard drink = 0.6 oz pur e alcohol) [employer] in coffee PHQ-2 Answer Date Recorded PHQ-2 score 1 08/09/2021 Area Deprivation Index Answer Date Mark rded National Score (1-100), lower number is lower ri sk 60 03/15/2023 State Score (1-10), lower number is lower risk 4 03/15/2023 Data from: https://www.neighborhoodatlas.[facility]/. Last address used for calculation [address] 03/15/2023 Sex and Gender Information Value Date Recorded Sex Assigned at Not on file Legal Sex Male 2:49 PM EST Gender Identity Not on file Sexual Orientation Not on file Occupation Industry Job Start Date Job End Date retired Not on file Not on file Not on file Last Filed Vital Signs Vital Sign Reading Time Taken Comments Blood Pressure 168/78 03/15/2023 9:45 AM EDT Pulse 69 03/15/2023 9:45 AM EDT Temperature 36.7 C (98.1 F) 03/15/2023 9:15 AM EDT Respiratory Rate 16 03/15/2023 9:45 AM EDT Oxygen Saturation 99% 03/15/2023 9:45 AM EDT Inhaled Oxygen Concentration - - Weight 83.5 kg (184 lb) 05/09/2021 12:00 PM EDT self report Height 168.9 cm (5' 6.5 ) 05/09/2021 12:00 PM ED T Body Mass Index 29.25 05/09/2021 12:00 PM EDT Plan of Treatment Health Maintenance Due Date Last Done Comments Anxiety Screening 1958 Depression Screening 1958 RSV Vaccine (1 - 1-dose 75+ series) 2016 Diabetes Screening 01/02/2021 01/02/2018, 0 01/01/2018, 12/11/2017, Additional history exists Covid-19 Vaccine (5 - 2023-2 5 season) 2024 05/31/2022, 07/25/2021, 10/25/2020, Additional history exists Advance Directive Discussion 08/20/2024 Influenza Vaccine (Season Ended) 2025 06/13/2022, 05/02/2019, 04/30/2018, Additional history exists DTaP,Tdap,Td Vaccine (2 - Td or Tdap) 01/03/2029 01/03/2019 Pneumococcal Vaccine: 50+ Completed 2018, 08/30/2016, 03/06/2015 Shingrix Vaccine Completed 05/03/2021, 06/2021, 05/31/2016, Additional history exists Medical Devices Implanted Type Area Marine Specialist Device Identifier Shelf Expiration Date Model / Serial / Lot [place] Corkscrew Fiberwire Tigerwire 5.5mm 2 Full Thread Biocomposite 14.7 - [id number] Implanted:Qty: 1 on 06/29/2017 at [facility] [place] Right: Bone - Shoulder [employer] 12/17/2018 [id number] / / [id number] [place] Swivelock Tenodesis 8mm Biocomposite 19.5mm Suture [place] Eyelet - [id number] Implanted:Qty: 1 on 06/29/2017 at [facility] [place] Right: Bone - Shoulder [employer] 06/19/2018 [id number] / / [id number] Shell 56mm E Hemispherical Tritanium Acetabular Primary Rim Cluster Hole - [id number] Implanted:2017 at [facility] (Quantity not on file) Joint - Hip Right: Bone - Hip [employer] 12/04/2022 [id number] / [id number] / [id number] Insert Trident 40mm 0d E X3 Acetabular Hip - [id number] Implanted:2017 at [facility] (Quantity not on file) Joint - Hip Right: Bone - Hip [employer] 06/24/2022 [id number] / [id number] / [id number] Head 40mm [place] Biolox Delta Tritanium Femoral Hip - [id number] Implanted:2017 at [facility] (Quantity not on file) Joint - Hip Right: Bone - Hip [employer] 09/26/2022 [id number] / / [id number] Stem Accolade Ii 6 132d Femoral - [id number] Implanted:2017 at [facility] (Quantity not on file) Joint - Hip Right: Bone - Hip [employer] 07/29/2022 [id number] / [id number] / [id number] Sleeve V40 +0mm Offset [place] Taper Titanium Adapter Hip - [id number] Implanted:2017 at [facility] (Quantity not on file) Joint - Hip Right: Bone - Hip [employer] 08/28/2022 [id number] / / [id number] Screw Trident Secur-Fit Torx 6.5mm Titanium 20mm Bone Sterile Acetabular - [id number] Implanted:2017 at [facility] (Quantity not on file) Screw Right: Bone - Hip [employer] 11/11/2022 [id number] / [id number] / [id number] Procedures Procedure Name Priority Date/Time Associated Diagnosis Comments BASIC METABOLIC PANEL (EU,FV,HL,NATALI,MM,SP) SHAJI 01/02/2018 4:32 AM EDT from Last 3 Months or Most Recently Relevant to Health Maintenance Results * (ABNORMAL) BASIC METABOLIC PANEL (AK,AV,EU,FV,HL,NATALI,MM,SP) (01/02/2018 4:32 AM EDT) Glucose 130(H) 74 - 99 mg/dL 01/02/2018 6:30 AM EDT [facility] Comment: The [place] Diabetes Association (ADA) provides guidance for cutoff values for fasting glucose and random glucose. The ADA defines fasting as no caloric intake for at least 8 hours. Fasting plasma glucose results between 100 to 125 mg/dL indicate increased risk for diabetes (prediabetes). Fasting plasma glucose results greater than or equal to 126 mg/dL meet the criteria for diagnosis of diabetes. In the absence of unequivocal hyperglycemia, results should be confirmed by repeat testing. In a patient with classic symptoms of hyperglycemia or hyperglycemic crisis, random plasma glucose results greater than or equal to 200 mg/dL meet the criteria for diagnosis of diabetes. Reference: Standards of Medical Care in Diabetes 2016, [place] Diabetes Association. Diabetes Care. 2016.39(Suppl 1). BUN 20 9 - 24 mg/dL 01/02/2018 6:30 AM [facility] Creatinine 1.22 0.73 - 1.22 mg/dL 01/02/2018 6:30 AM [facility] Sodium 140 136 - 144 mmol/L 01/02/2018 6:30 AM [facility] Potassium 4.4 3.7 - 5.1 mmol/L 01/02/2018 6:30 AM [facility] Chloride 102 97 - 105 mmol/L 01/02/2018 6:30 AM [facility] CO2 27 22 - 30 mmol/L 01/02/2018 6:30 AM EDT [facility] Anion Gap 11 9 - 18 mmol/L 01/02/2018 6:30 AM T [facility] Calcium 8.1(L) 8.6 - 10.0 mg/dL 01/02/2018 6:30 AM EDT [facility] eGFR- >60 01/02/2018 6:30 AM EDT [facility] eGFR-All Other Races 58 . 01/02/2018 6:30 AM EDT [facility] Comment: eGFR (Estimated GFR) Units of measure: mL/min/1.73 meters squared eGFR is derived from the reexpressed MDRD Study equation using the following parameters: serum creatinine, age, gender and race. The creatinine assay has been calibrated to be traceable to IDMS. An eGFR <60 mL/min/1.73m2 for >3 months is consistent with chronic kidney disease. Refer to KDOQI guidelines for clinical interpretation. In patients with unstable renal function, e.g. those with acute kidney injury, the eGFR may not accurately reflect actual GFR. Blood specimen (specimen) BLOOD SPECIMEN / Unknown 01/02/2018 4:32 AM EDT 01/02/2018 4:33 AM EDT us Angelique Sutherland PA-C [facility] Final Re sult [facility] [id number] [facility] [place] [address], from Last 3 Months or Most Recently Relevant to Health Maintenance Insurance MEDICARE [employer] Care Teams Mattress Finisher Relationship Specialty Start Date End Date Cecilio Benjamin DO PCP - General Internal Medicine 09/04/13
--- OUTSIDE RECORDS SUMMARY | 2025-01-27 10:42 | XMS_ITS | Clinical Summary ---
Author Organization [facility] tem Address [id number] [place] [address] Care Team Providers Care Pairer Name Role Phone Cecilio Benjamin DO Primary Care Provider [phone] Allergies Active Allergy Reactions Criticality Noted Date Comments Bacitracin 01/05/2017 Medications traMADol (ULTRAM) 50 mg tablet Take 50 mg by mouth nightly. Active clonazePAM (KlonoPIN) 0.5 mg tablet Take 0.5 mg by mouth nightly. 1/2 PO qHS Active azithromycin (ZITHROMAX) 250 mg tablet Take 250 mg by mouth daily. Take 2 tablets the first day, then 1 tablet daily for 4 days. Active ESCITALOPRAM OXALATE ORAL Take 10 mg by mouth daily. Active mupirocin (BACTROBAN) 2 % ointment Apply 1 application topically 2 (two) times a day. Active clobetasol (TEMOVATE) 0.05 % ointment Apply 1 application topically 2 (two) times a day. Active hydrocortisone (ANUSOL-HC) 2.5 % rectal cream Insert 1 application into the rectum 2 (two) times a day. Active omeprazole (PriLOSEC) 20 mg capsule Take 20 mg by mouth daily. Active tamsulosin (FLOMAX) 0.4 mg capsule,extende d release 24hr Take 0.4 mg by mouth nightly. Active fluticasone-jose meterol (ADVAIR) 250-50 mcg/dose DISKUS Inhale 1 puff every 12 (twelve) hours. Active sodium,potassiu m,mag sulfates (SUPREP BOWEL PREP KIT) 17.5-3.13-1.6 gram recon soln 177 ml actual weight 2 times daily Oral 1 kit 0 7 Active Active Problems Problem Noted Date Diagnosed Date Rectal bleeding 01/05/2017 GERD (gastroesophageal reflux disease) 7 Social History Tobacco Use Types Packs/Day Years Used Date Smoking Tobacco: Never Alcohol Use Standard Drinks/Week Comments No 0 (1 standard drink = 0.6 oz pur e alcohol) Childcare Answer Date Recorded Childcare Unknown 01/28/2019 Employment Answer Date Recorded Employment Unknown 01/28/2019 Purpose - Life Answer Date Recorded Purpose and direction in life Unknown Sex and Gender Information Value Date Recorded Sex Assigned at Not on file Legal Sex Male 8:51 PM EDT Gender Identity Not on file Sexual Orientation Not on file Last Filed Vital Signs Vital Sign Reading Time Taken Comments Blood Pressure 122/78 02/02/2017 9:50 AM EDT Pulse - - Temperature - - Respiratory Rate - - Oxygen Saturation - - Inhaled Oxygen Concentration - - Weight 81.6 kg (180 lb) 02/02/2017 9:50 AM EDT Height 172.7 cm (5' 8 ) 02/02/2017 9:50 AM EDT Body Mass Index 27.37 02/02/2017 9:50 AM EDT Plan of Treatment Health Maintenance Due Date Last Done Comments Depression Screening 1952 Tobacco Screening 1952 DTaP,Tdap and Td Vaccines (1 - Tdap) 1960 Zoster (Shingles) Vaccine (1 of 2) 1991 Fall Risk Screening 2006 Influenza Vaccine 04/20/2025 Medical Devices Not on file Insurance MEDICARE [employer] Care Teams Pairer Relationship Specialty Start Date End Date Cecilio Benjamin DO [address] [place] [id number] PCP - General 12/20/16
--- NOTE | 2025-01-27 10:47 | XR_ITS ---
The [address] [address] Patient Name: NEISHA MITCHELL MRN: [id number] date: 1940 Sex: M Assigned Patient Location: [facility] Current Patient Location: [facility] Accession/Order Number: [id number] Exam Date: 01/27/2025 11:15 Report Date: 01/27/2025 11:19 At the request of: SARA TAYLOR DO Procedure: XR wrist LT min 3V LEFT WRIST - 3 views COMPARISON: 01/20/2025 CLINICAL DATA: Left wrist pain for the past 1 to 2 weeks following fall off a mower . AP, lateral and oblique views were obtained. There is osteopenia. There is redemonstration of a longitudinal linear lucency at the distal radial metaphysis as best seen on the oblique view. This is more convincing for fracture on the current images and there might be intra-articular extension. Minimal displacement is also seen. No additional fractures are identified. No dislocation is identified. There are mild degenerative changes. Mild soft tissue swelling is again noted. XR/XR wrist LT min 3V IMPRESSION: MINIMALLY DISPLACED DISTAL RADIUS FRACTURE AT THE SITE OF CONCERN ON THE COMPARISON. OSTEOPENIA AND DEGENERATIVE CHANGES. Impression dictated by: Ros Foster M.D. 01/27/2025 11:19 AM Dictation Location: [place] [address] Electronically authenticated by: [id number] Y Date: 01/27/2025 11:19
== END 2025-01-27 10:39 | disposition home or self-care (01) ==
LOC: RAD 10:40
PROVIDERS: PCP Internal Medicine; Visit Provider Internal Medicine
DX: M25.532 Pain in left wrist (principal); S52.592A Other fractures of lower end of left radius, initial encounter for closed fracture
CPT/HCPCS: 73110

== ENCOUNTER 2025-02-05 09:00 | Outpatient (OUT) | payer MEDICARE, OTHER, SELFPAY ==
--- OUTSIDE RECORDS SUMMARY | 2025-02-01 08:11 | XMS_ITS | Continuity of Care Document ---
Author Organization [facility] Address [address] [place] [address] Phone Support Name Relationship Address Phone Celi Thorpe Emergency Contact Unknown [phone] Cecilio Taylor DO Personal Relationship [address] [place] [address] Faheem Sevilla MD Personal Relationship [address] [place] [address] Care Teams Patient Care Team Team Status: Active Member Role Status Dates Cecilio Taylor DO Primary Care Provider Active Patient Care Team Team Status: Inactive Member Role Status Dates Cecilio Taylor DO Primary Care Provider Active Start: January 29, 2025 End: January 29, 2025 Faheem Sevilla MD Attending Provider Active Star t: January 29, 2025 End: January 29, 2025 Chief Complaint and Reason for Visit Chief Complaint Admit Date CONSULT DR TAYLOR LT RADIUS FX WX TBH January 29, 2025 8:45am Reason for Visit Admit Date Other fractures of lower end of right radius, initial encounter for closed January 29, 2025 8:45am Allergies, Adverse Reactions, Alerts Allergen Type Severity Reaction Last Updated Verified Status Xvgvszr-UXB-VtZ Reductase Inhibitor Allergy Unknown Unknown Reaction January 29, 2025 8:54am Yes Active Social History Smoking Status Status Start Date End Date Date of Observa tion Never smoked tobacco (finding) January 22, 2024 9:53am Observation Status Observation Response Date of Response Patient Sex Male January 29, 2025 9:22am Assigned Sex Male 1940 Family History Relationship Condition Age at Onset Recorded Date/T niru father Unknown Problems Active Problems Medical Problem Onset Date Status Obstructive sleep apnea Active Generalized anxiety disorder Act maribell 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, simple Activ e Elevated cholesterol Active 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 Fracture of right distal radius Active Distal radius fracture, left Act maribell IFG (impaired fasting glucose) A ctive Weight loss Active Other fractures of lower end of right radius, initial encounter for closed fracture Active Benign prostatic hyperplasia with lower urinary [...] for shortness of breath or wheezing 8.5 Febr2023 1:00am October 19, 2023 6:55p m Tamsulosin 0.4 mg capsule Discont inued 0 .ROUTE .COMPLEX January 07, 2024 12:45p m [facility]2024 10:10 am TAKE 1 CAPSULE DAILY Escitalopram [...] with perineal applicator Discont inued 1 APPLIC CA 1 to 2 times per day as needed for hemorrhoids 30 30 Decemb er 2023 1:00am 2024 10:11 am Fluticasone Propion-Salm eterol 113-14 mcg/actuatio n aerosol powdr breath activated Discont inued 2 INH INHALA TION Every 12 hours 09 18November 07, 2024 12:00a m November 11, 2024 4:28p m Fluticasone Propion-Salm eterol (Advair Hfa) 115-21 mcg/actuatio n HFA aerosol inhaler Discont inued 2 PUFF INHALA TION Every 12 hours 12 November 11, 2024 12:00a m January 20, 2025 11:22 am Albuterol Sulfate 2.5 mg /3 mL (0.083 %) solution for nebulization Active 2.5 MG INHALA TION EVERY 4-6 HOURS as needed for shortness of breath or wheezing 180 November 11, 2024 5:27pm Inhalational Spacing Device [...] 2023 6:55p m Mupirocin 2 % ointment Discont inued 1 APPLIC TOPICA L Twice daily 2023 1:00am January 29, 2025 8:57a m Nabumetone 500 mg tablet Discont inued 500 MG PO Twice daily 2023 1:00am October 19, 2023 6:55p m Omeprazole 20 mg capsule,vikash yed release(DR/E C) Discont inued 20 MG PO Daily 2023 1:00am October 19, 2023 6:55p m Silver Sulfadiazine 1 % cream Discont inued 1 APPLIC TOPICA L Daily 2023 1:00am January 29, 2025 8:57a m Tamsulosin 0.4 mg capsule Discont inued 0.4 MG PO Daily 2023 1:00am October 19, 2023 6:55p m Triamcinolon e Acetonide 0.1 % ointment Discont inued 1 APPLIC TOPICA L Twice daily 2023 1:00am October 19, 2023 6:55p m Amlodipine 2.5 mg tablet Discont inued 2.5 MG PO Daily October 19, 2023 11:[facility]a [facility] 10:10 am Clonazepam 0.5 mg tablet Discont inued 0.5 MG PO Daily at bedtime October 19, 2023 11:06a m [facility] t 2023 1:34p m Escitalopram Oxalate 10 mg tablet Discont inued 10 MG PO Daily at bedtime October 19, 2023 11:07a m [facility] 2023 1:34p m Nabumetone 500 mg tablet Discont inued 500 MG PO Twice daily 180 October 19, 2023 11:07a m [facility] 2023 1:34p m Omeprazole 20 mg capsule,vikash yed release(/E C) Discont inued 20 MG PO Daily October 19, 2023 11:07a m [facility] 10:10 am Tamsulosin 0.4 mg capsule Discont inued 0.4 MG PO Daily October 19, 2023 11:08a m January 07, 2024 12:45 pm Triamcinolon e Acetonide 0.1 % ointment Discont inued 1 APPLIC TOPICA L Twice daily 80 October 19, 2023 11:08a m January 29, 2025 8:57a m Albuterol Sulfate 90 mcg/actuatio n HFA [...] of breath or wheezing 540 90 October 19, 2023 1:00am October 30, 2023 [...] or wheezing 540 October 30, 2023 1:20pm November 06, 2024 11:42 am Doxycycline Hyclate 100 mg capsule Discont inued 100 MG PO Twice daily December 09, 2024 4:30pm January 29, 2025 8:56a m Fluticasone Propionate 250 mcg/actuatio n blister with device Discont inued 1 INH INHALA TION Every 12 hours 60 January 20, 2025 12:00a m January 20, 2025 11:31 am Montelukast 10 mg tablet Active 10 MG PO Daily at bedtime January 20, 2025 12:00a m Fexofenadine (Allergy Relief (Fexofenadin e)) 180 mg tablet Active 180 MG PO Daily January 20, 2025 12:00a m Fluticasone Propion-Salm [...] C) Active 20 MG PO Daily 90 90 2024 10:08a m Tamsulosin 0.4 mg capsule Active 0.4 MG PO Daily at bedtime 2024 10:08a m Escitalopram Oxalate 10 mg tablet Active 10 MG PO Daily 90 2024 10:09a m Clonazepam 0.5 mg tablet Active 0.5 MG PO Daily 2024 10:10a m Aspirin 81 mg tablet,chewa ble Active 81 MG PO Daily 2024 1:00am Doxycycline Hyclate 100 mg capsule Discont inued 100 MG PO Twice daily November 06, 2024 12:00a m December 09, 2024 4:30p m Prednisone 20 mg tablet Discont inued 20 MG PO As Directed November 06, 2024 12:00a m January 29, 2025 8:57a m 1 tab tid w/ food x [...] Event Date Not Given Reason Dose Number Regulatory Auditor Lot Number Vaccine Information Statement (VIS) Detail Pfizer/Mary , Pediatric Age 5-11 May 31, 2022 COVID-19 mRNA-1273 (Moderna) September 27, 2020 COVID-19 mRNA-1273 (Moderna) October 25, 2020 COVID-19 mRNA-1273 (Moderna) July 25, 2021 COVID-19 (MODERNA) [id number] 12Y and older May 30, 2023 COVID-19 mRNA Bivalent Booster (Pfizer) May 31, 2022 DTap, unspecified January 03, 2019 Fluzone TIV High-Dose 65YR+ May 28, 2024 [id number] influenza, unspecified formulation May 09, 2015 influenza, [...] 28, 2021 Shingles (Zoster) May 03, 2021 Advance Directives Advance Directive Response Recorded Date/ Time Advance Directives No January 21 9:53am Insurance Providers Guarantor Ruperto Thorpe Address [address] [place] [id number] Contact Info. Home Phone: Payer Policy Id Coverage Id Subscriber's Name Subscriber Id Effective Date Expiration Date Medicare [id number] Ruperto Thorpe [id number] [facility] [employer] [id number] Ruperto Thorpe [id number] Encounters Encounter Location(s) Arrival/Admit Date Discharge/Depart Date Provider(s) Departed Physician/Prov ider Office Visit [facility] January 29, 2025 8:45am January 29, 2025 9:21am Faheem Sevilla MD Recent Diagnosis Onset Date Admit Date Other fractures of lower end of right radius, initial encounter for closed January 29, 2025 8:45am Assessments Diagnosis Onset Date Resolution Status Admit Date Other fractures of lower end of right radius, initial encounter for closed acute January 29, 2025 8:45am Plan of Treatment [facility] January 29, 2025 9:16 am Extensive discussion about rowan gary condition and treatment options available.The patient has suffered a minimally displaced radius fracture. This fracture is stable and we will treat this non-operatively. We will treat this in a removable splint. The patient appears to be tolerating this well. We discussed that this injury can take at least six weeks to have early healing will need gentle motion and strength exercise for months after healing. We discussed the need to limit any weight bearing to arm or strenuous activity such as lifting. We discussed the need to keep the splint clean and dry. We discussed that this injury can lead to retirement pain and wrist stiffness. Future Tests Future scheduled test information is [...]
--- OUTSIDE RECORDS SUMMARY | 2025-02-05 13:45 | XMS_ITS | Clinical Summary ---
Author Organization [facility] Address [address] [place] [address] Care Team Providers Care Printing Mechanist Name Role Phone Unavailable Primary Care Provider [...]
--- OUTSIDE RECORDS SUMMARY | 2025-02-05 13:45 | XMS_ITS | Referral Summary ---
Author Organization [facility] Address [address] [place] [address] Care Team Providers Care Fund Accounting Manager Name Role Phone Unavailable Primary Care [...] at Not on file Legal Sex Male 12:43 AM EDT Gender Identity Not on file Sexual Orientation Not on file Plan of Treatment Not on file Insurance MEDICARE GENERIC OTHER
--- OUTSIDE RECORDS SUMMARY | 2025-02-05 13:45 | XMS_ITS | Clinical Summary ---
Author Organization [facility] Address [address] [place] [address] Care Team Providers Care Rough Rounder Machine Name Role Phone Unavailable Primary Care Provider [...] Orientation Not on file Plan of Treatment Health Maintenance Due Date Last Done Comments Medicare Annual Wellness (AWV) 1940 Depression Screening 1953 Adult Tetanus 1963 Pneumococcal Vaccine: 50+ Ye ars (1 of 1 - PCV) 1991 Zoster Vaccines (1 of 2) 1991 Fall Risk Screening 2006 COVID-19 Vaccine (2023-2 5 season) 2024 Influenza Vaccine (Season Ended) 2025 HIB Vaccines Aged Out No longer eligi ble based on patient's age to complete this topic HPV Vaccines Aged Out No longer eligi ble based on patient's age to complete this topic IPV Vaccines Aged Out No longer eligi ble based on patient's age to complete this topic Meningococcal B Vaccine Aged Out No l onger eligible based on patient's age to complete this topic Meningococcal Vaccine Aged Out No kaden jeffrey eligible based on patient's age to complete this topic Rotavirus Vaccines Aged Out No longer eligible based on patient's age to complete this topic Insurance MEDICARE Member Subscriber Plan / Payer (Ef fective 2006-Present) Name:Ruperto Thorpe Member ID:[id number] Relation to Subscriber:Self Name:Ruperto Thorpe Subscriber ID:[id number] Payer ID:[id number] Group ID:Not on file Type:Medicare Address: [id number] GENERIC OTHER
--- OUTSIDE RECORDS SUMMARY | 2025-02-05 13:46 | XMS_ITS | Clinical Summary ---
Author Organization [employer] [facility] tem Address [id number] [address] [place] [address] Care Team Providers Care Lighting Adviser Name Role Phone Cecilio Benjamin DO Primary Care Provider [phone] Allergies Active Allergy Reactions Criticality Noted Date [...] Medical Devices Not on file Insurance MEDICARE [employer] Care Teams Lighting Adviser Relationship Specialty Start Date End Date Cecilio Benjamin DO [address] [place] [id number] PCP - General 12/20/16
--- OUTSIDE RECORDS SUMMARY | 2025-02-05 13:46 | XMS_ITS | Clinical Summary ---
Author Organization [facility] Address [facility] [place] [address] Care Team Providers Care Well Site Drilling Engineer Name Role Phone Cecilio Benjamin DO Primary Care Provider [phone] Allergies Active Allergy Reactions Criticality Noted Date [...] (10/30/2017): Added automatically from request for surgery [id number] Complete tear of right rotator cuff 05/17/2017 Overview (05/17/2017): Added automatically from request for surgery [id number] Incomplete tear of right rotator cuff 01/11/2017 [...] is lower risk 4 03/15/2023 Data from: https://www.neighborhoodatlas.[facility]/. Last address used for calculation [address] [...] history exists Medical Devices Implanted Type Area Compressor Operator Device Identifier Shelf Expiration Date Model / Serial / Lot Aubrey Corkscrew Fiberwire Tigerwire 5.5mm 2 Full Thread Biocomposite 14.7 - [id number] Implanted:Qty: 1 on 06/29/2017 at [facility] Aubrey Right: Bone - Shoulder [employer] 12/17/2018 [id number] / / [id number] Aubrey Swivelock Tenodesis 8mm Biocomposite 19.5mm Suture [place] Eyelet - [id number] Implanted:Qty: 1 on 06/29/2017 at [facility] Aubrey Right: Bone - Shoulder [employer] 06/19/2018 [id number] / / [id number] Shell 56mm E Hemispherical Tritanium Acetabular Primary Rim Cluster Hole - [id number] Implanted:2017 at [facility] (Quantity not on file) Joint - Hip Right: Bone - Hip [employer] 12/04/2022 [id number] / [id number] / [id number] Insert Trident 40mm 0d E X3 Acetabular Hip - [id number] Implanted:2017 at [facility] (Quantity not on file) Joint - Hip Right: Bone - Hip [employer] 06/24/2022 [id number] / [id number] / [id number] Head 40mm Temple Biolox Delta Tritanium Femoral Hip - [id number] Implanted:2017 at [facility] (Quantity not on file) Joint - Hip Right: Bone - Hip [employer] 09/26/2022 [id number] / / [id number] Stem Accolade Ii 6 132d Femoral - [id number] Implanted:2017 at [facility] (Quantity not on file) Joint - Hip Right: Bone - Hip [employer] 07/29/2022 [id number] / [id number] / [id number] Sleeve V40 +0mm Offset Temple Taper Titanium Adapter Hip - [id number] Implanted:2017 at [facility] (Quantity not on file) Joint - Hip Right: Bone - Hip [employer] 08/28/2022 [id number] / / [id number] Screw Trident Secur-Fit Torx 6.5mm Titanium 20mm Bone Sterile Acetabular - [id number] Implanted:2017 at [facility] (Quantity not on file) Screw Right: Bone - Hip [employer] 11/11/2022 [id number] / [id number] / [id number] Procedures Procedure Name Priority Date/Time Associated Diagnosis Comments BASIC METABOLIC PANEL (EU,FV,HL,NATALI,MM,SP) SHAJI 01/02/2018 4:32 AM EDT from Last 3 Months or Most Recently Relevant to Health Maintenance Results * (ABNORMAL) BASIC METABOLIC PANEL (AK,AV,EU,FV,HL,NATALI,MM,SP) (01/02/2018 4:32 AM EDT) Glucose 130(H) 74 - 99 mg/dL 01/02/2018 6:30 AM EDT [facility] Comment: The [place] Diabetes Association (ADA) provides guidance for cutoff [...] Standards of Medical Care in Diabetes 2016, [place] Diabetes Association. Diabetes Care. 2016.39(Suppl 1). BUN 20 9 - 24 mg/dL 01/02/2018 6:30 AM [facility] Creatinine 1.22 0.73 - 1.22 mg/dL 01/02/2018 6:30 AM [facility] Sodium 140 136 - 144 mmol/L 01/02/2018 6:30 AM [facility] Potassium 4.4 3.7 - 5.1 mmol/L 01/02/2018 6:30 AM [facility] Chloride 102 97 - 105 mmol/L 01/02/2018 6:30 AM [facility] CO2 27 22 - 30 mmol/L [...] Final Re sult [facility] [address] [facility] [place] [address], from Last 3 Months or Most Recently Relevant to Health Maintenance Insurance MEDICARE [employer] Care Teams Well Site Drilling Engineer Relationship Specialty Start Date End Date Cecilio Benjamin DO PCP - General Internal Medicine 09/04/13
--- NOTE | 2025-02-05 13:57 | PM.CN ---
Consult Note: HPI Data of Consult Patient: known to practice within the last 3 years Requesting Physician: Erica Hope NP Primary Care Provider: Cecilio Benjamin, DO Consult Narrative Reason for consult: low back, bilateral lower extremity pain Narrative: 84yom who presents for assessment. notes pain from low back into bilateral hips. imaging significant for severe stenosis at l4-5, as well as more moderate multilevel stenosis. very active, engages in >6 weeks of provider directed home exercises. uses tylenol prn. Pain today 3/10 aching in low back and bilateral legs with standing, walking, activity. pain significant improves with forward flexion and resolves upon sitting. we are no longer able to offer vertiflex and pt is not interested in any procedures requiring IV sedation. recently underwent bilateral L4/5 L5/S1 facet RFA with mild relief at this time, remains in healing phase. cc:: CC: Erica Hope NP Review of Systems ROS Status of ROS 10 or more systems reviewed and unremarkable except as noted in history and below Musculoskeletal Reports: back pain and extremity pain PFSH PFSH Medical History Low back pain ?M54.50 - Low back pain, unspecified (ICD-10) Heartburn ?R12 - Heartburn (ICD-10) Sleep apnea ?G47.30 - Sleep apnea, unspecified (ICD-10) COPD (chronic obstructive pulmonary disease) ?J44.9 - Chronic obstructive pulmonary disease, unspecified (ICD-10) Asthma ?J45.909 - Unspecified asthma, uncomplicated (ICD-10) Hypertension ?I10 - Essential (primary) hypertension (ICD-10) Surgical History H/O cervical spine surgery ?Z98.890 - Other specified postprocedural states (ICD-10) S/P tonsillectomy and adenoidectomy ?Z90.89 - Acquired absence of other organs (ICD-10) History of ankle surgery ?Z98.890 - Other specified postprocedural states (ICD-10) S/P cholecystectomy ?Z90.49 - Acquired absence of other specified parts of digestive tract (ICD-10) S/P total hip arthroplasty ?Z96.649 - Presence of unspecified artificial hip joint (ICD-10) History of surgery on upper extremity ?Z98.890 - Other specified postprocedural states (ICD-10) Social History Little interest or pleasure in doing things: not at all Feeling down, depressed, or hopeless: not at all Meds Home Medications and Allergies Home Medications ?Medication ?Instructions ?Recorded ?Confirmed ?Type amlodipine 2.5 mg tablet 2.5 mg PO DAILY 01/28/24 01/05/25 History clonazepam 0.5 mg tablet 0.5 mg PO DAILY 01/28/24 01/05/25 History escitalopram oxalate 10 mg tablet 10 mg PO DAILY 01/28/24 01/05/25 History (Lexapro) fluticasone propionate 110 1 inh inhalation BID 01/28/24 01/05/25 History mcg/actuation HFA aerosol inhaler nabumetone 500 mg tablet 500 mg PO BID 01/28/24 01/05/25 History omeprazole 20 mg capsule,delayed 20 mg PO DAILY 01/28/24 01/05/25 History release tamsulosin 0.4 mg capsule (Flomax) 0.4 mg PO DAILY 01/28/24 01/05/25 History albuterol sulfate 2.5 mg/3 mL 2.5 mg inhalation Q4H PRN 12/05/24 01/05/25 History (0.083 %) solution for nebulization shortness of breath or wheezing fluticasone 250 mcg-salmeterol 50 1 inh inhalation BID 12/05/24 01/05/25 History mcg/dose blistr powdr for inhalation diazepam 10 mg tablet (Valium) 5 mg PO Q6H PRN sedation 01/05/25 01/05/25 History Allergies Allergy/AdvReac Type Severity Reaction Status Date / Time bacitracin AdvReac Mild Rash Verified 01/05/25 08:14 Exam Narrative Exam Narrative: . Constitutional Documenting provider has reviewed patient's vital signs: yes Common normals: no apparent distress, oriented x3, healthy appearing, alert and well nourished General appearance: cooperative HENWV Common normals: normocephalic, hearing grossly normal bilaterally and moist oral mucous membranes Head and scalp: normocephalic Eye Common normals: PERRL Pupil: PERRL Neck & C-Spine Common normals: full ROM General: normal visual inspection Chest Common normals: inspection of chest normal Respiratory Common normals: normal respiratory effort, no retractions and no use of accessory muscles Back & Pelvis Lumbar spine/lower back: pain with ROM and straight leg raise negative bilaterally; no lumbar spinal tenderness Other: decreases sensation bilateral L4/5 increased pain with standing and walking, improved with forward flexion Neuro Common normals: oriented x3 Sensorium/orientation: alert Motor exam: strength 5/5 throughout and no movement abnormalities noted Psych Common normals: mental status grossly normal, thought process normal, cooperative, affect normal, speech normal and activity/motor behavior normal Speech: normal speech Thought process: normal thought process Assessment and Plan Assessment and Plan (1) Lumbar spondylosis: Assessment and Plan: 01/05/25 bilateral L4/5 L5/S1 facet RFA with less than 50% improvement (2) Lumbar stenosis with neurogenic claudication: (3) Sacroiliitis: Plan continue home exercise program as tolerated, continue current medications. f/u 6 weeks to assess delayed response to RFA. limited options moving forward.
--- OUTSIDE RECORDS SUMMARY | 2025-02-05 14:06 | XMS_ITS | CCD ---
Author Organization [facility] Care Team Providers Care Healthcare Project Manager Name Role Phone CECILIO [phone] UNKNOWN Unavailable Unavailable BETH GOODEN Unavailable Unavailable [...] MD Jose Enrique Leblanc II Attending Provider [phone] Jose Enrique Leblanc II Unavailable [phone] Jose Enrique Leblanc II Attending UnavailJose Enrique [...] 09-11-2013 Unknown [facility] Repository (19 sources) Albuterol Drug Allergy Unknown [employer] Other (20 sources) HMG-CoA reductase inhibitor Drug allergy Unknown [employer] Other Medications Current Medications Medication Drug Class(es) Dates Sig (Normalized) Sig (Original) acetaminophen 325 mg oral tablet (20 sources) Start: 10-17-2023 take 2 tablets by mouth every eight hours as needed Acetaminophen 325 mg tablet Active 325 MG PO Every 8 hours as needed October 17, 2023 1:00am 2 tablets by mouth orally every 8 hours PRN Start: 01-02-2018 take 2 tablets by [facility] every eight hours acetaminophen (TYLENOL) 500 mg tablet Take 2 tablets by mouth every 8 hours. (Mild pain reliever) 90 tablet 1 01/02/2018 Active take 2 tablets by mo [facility] every eight hours as needed Acetaminophen 325 MG 2 tablets by mouth Orally every 8 hours PRN Active Comment on above: Take 2 tablets by mo [facility] every 8 hours. (Mild pain reliever) aspirin 81 mg chewable tablet (9 sources) Platelet Aggregation Inhibitor, Nonsteroidal Anti-inflammatory Drug [...] Comment on above: Take 1 tablet by [facility] twice daily. (Blood thinner to prevent [...] (20 sources) Tetracycline-class Drug Start: 11-06-2024 End: 01-29-2025 take 1 capsule by mouth twice daily Doxycycline Hyclate 100 mg capsule Active 100 MG PO Twice daily December 09, 2024 4:30pm Start: 10-17-2023 End: 10-19-2023 take 1 capsule by mouth twice daily Doxycycline Hyclate 100 mg capsule Discontinued 100 MG PO Twice daily October 17, 2023 1:00am October 19, 2023 11:06am Start: 07-10-2023 take 1 capsule by [facility] every twelve hours Doxycycline Hyclate 100 [...] Discontinued 10 MG PO Daily at bedtime 90 October 19, 2023 11:07am April 02, 2024 1:34pm Escitalopram Oxa late 10 MG TAKE 1 TABLET AT BEDTIME Active Comment on above: Take 10 mg by mouth once daily. fexofenadine hydrochloride 180 mg oral tablet (2 sources) Histamine-1 Receptor Antagonist Start: take 1 tablet by mouth once daily Fexofenadine (Allergy Relief (Fexofenadine)) 180 mg tablet Active 180 MG PO Daily 30 January 20, 2025 12:00am 60 actuat fluticasone propionate 0.25 mg/actuat / salmeterol 0.05 mg/actuat dry powder inhaler (20 sources) Corticosteroid, beta2-Adrenergic Agonist Start: Fluticasone Propion-Salmeterol (Advair Diskus) 250-50 mcg/dose blister with device Active 1 INH INHALATION Every 12 hours January 20, 2025 12:00am Start: 11-11-2024 End: 01-20-2025 take 1 puff(s) by inhalation every twelve hours Fluticasone Propion-Salmeterol (Advair Hfa) 115-21 mcg/actuation HFA aerosol inhaler Discontinued 2 PUFF INHALATION Every 12 hours 08 18November 11, 2024 12:00am January 20, 2025 11:22am Start: 11-11-2024 take 1 puff(s) by in halation every twelve hours Fluticasone Propion-Salmeterol (Advair Hfa) [...] Discontinued 1 INH INHALATION Twice daily 60 January 22, 2024 12:00am November 07, 2024 4:41pm take 1 puff(s) by in halation twice daily Wixela Inhub 250-50 MCG/ACT 1 puff Inhalation Twice a day Active take 1 puff(s) by in halation once daily FLUTICASONE/SALMETEROL (ADVAIR DISKUS INHALATION) Inhale 1 Puff as instructed once daily. 0 Active Comment on above: Inhale 1 Puff as ins tructed once daily. Inhalational Spacing Device spacer (3 sources) Start: 12-05-19 Inhalational Spacing Device spacer Active 0 .Route December 04, 2024 12:00am As directed montelukast 10 mg oral tablet (2 sources) Leukotriene Receptor Antagonist Start: 01-21-20 take 1 tablet by mouth once daily at bedtime Montelukast 10 mg tablet Active 10 MG PO Daily at bedtime January 20, 2025 12:00am nabumetone 500 mg oral tablet (20 sources) Nonsteroidal Anti-inflammatory Drug Start: 04-02-20 End: 10-01-19 Nabumetone 500 mg tablet Active 0 .ROUTE .COMPLEX October 01, 2024 10:08am TAKE 1 TABLET TWICE A DAY Start: 10-17-2023 End: 04-02-2024 take 1 tablet by mouth twice daily Nabumetone 500 mg tablet Discontinued 500 MG PO Twice daily October 19, 2023 11:07am April 02, 2024 1:34pm Start: 02-08-2021 nabumetone (RE LAFEN) 500 mg tablet tamsulosin hydrochloride 0.4 mg oral capsule (20 [...] ointment (20 sources) Corticosteroid Start: 10-17-2023 End: 01-29-2025 Triamcinolone Acetonide 0.1 % ointment Active 1 APPLIC TOPICAL Twice daily 80 October 19, 2023 11:08am Start: 05-30-2023 Triamcinolone Acetonide 0.1 % 1 application Externally Twice a day for 30 days May, Active Start: 11-09-2022 Kenalog-40 Oct, 120 mg Completed/Discontinued Medications Medication Drug Class(es) Dates Sig (Normalized) Sig (Original) albuterol 0.83 mg/ml inhalation solution (20 sources) beta2-Adrenergic Agonist Start: 10-19-2023 End: 11-11-2024 take 2.5 mg by inhalation every four to six hours as needed for wheezing Albuterol Sulfate 2.5 mg /3 mL (0.083 %) solution for nebulization Discontinued 2.5 MG INHALATION EVERY 4-6 HOURS as needed for shortness of breath or wheezing 540 November 06, 2024 11:42am November 11, 2024 5:29pm Start: 10-10-2023 End: 01-22-2024 take 1 puff(s) [...] mg tablet Discontinued 2.5 MG PO Daily 90 October 19, 2023 11:05am October 01, 2024 [...] on above: Take 1 capsule by mo [facility] twice daily. (Stool softener) ferrous sulfate 325 mg oral tablet (1 source) Start: 018 End: take 1 tablet by mouth twice daily at mealtime ferrous sulfate 325 mg (65 mg iron) tablet Take 1 tablet by mouth twice daily with meals. (Iron supplement) 30 tablet 0 01/02/2018 02/19/2023 Discontinued Comment on above: Take [address] [facility] twice daily with meals. (Iron supplement) FISH OIL-DHA-EPA ORAL (4 sources) take 1 capsule by mouth once daily FISH OIL-DHA-EPA ORAL Take 1 capsule by mouth once daily. 0 Active Comment on above: Take 1 capsule by [facility] once daily. Fluticasone Propionate (2 sources) Corticosteroid Start: End: Fluticasone Propionate 250 mcg/actuation blister with device Discontinued 1 INH INHALATION Every 12 hours January 20, 2025 12:00am January 20, 2025 11:31am hydrocortisone 25 mg/ml topical cream (5 sources) Corticosteroid Start: 024 End: Hydrocortisone (Proctosol Hc) 2.5 % cream with perineal applicator Discontinued 1 APPLIC MI 1 to 2 times per day as needed for hemorrhoids August 18, 2024 1:00am October 01, 2024 10:11am Inhalational Spacing Device (Aerochamber Mini) spacer (3 sources) Start: 025 End: Inhalational Spacing Device (Aerochamber Mini) spacer [...] on above: Take 2 tablets by mo [facility]. Take 2 tablets by [facility] daily at bedtime. methylPREDNISolone (1 source) Corticosteroid Start: 2020 End: 2022 methylPREDNISolone (MEDROL, AYLA,) 4 mg Dose-Pack Take as directed on package. Do not take any NSAID'S while taking medication. 1 Package 0 05/09/2021 02/19/2023 Discontinued Comment on above: Take as directed on package. Do not take any NSAID'S while taking medication. Miscellaneous Medical Supply (TABLET CUTTER) mis (1 source) Start: 2017 End: 2022 Miscellaneous Medical Supply (TABLET CUTTER) [facility] Indications: Primary osteoarthritis of right hip [place] Please include hit kit 1 Each 0 12/12/2017 02/19/2023 Discontinued Comment on above: [place] Please include hit kit Multivitamin capsule (4 sources) take 1 capsule by mouth once daily Multivitamin capsule Take 1 capsule by mouth once daily. 0 Active Comment on above: Take 1 capsule by mo [facility] once daily. mupirocin 0.02 mg/mg topical ointment (20 sources) RNA Synthetase Inhibitor Antibacterial Start: 2023 End: 2024 Mupirocin 2 % ointment Discontinued 1 APPLIC TOPICAL Twice daily October 17, 2023 1:00am January 29, 2025 8:57am Mupirocin 2 % 1 application Externally Twice a day Active omeprazole 20 mg delayed release oral capsule (20 sources) Proton Pump Inhibitor Start: 10-17-2023 End: 10-01-2024 take 1 capsule by mouth once daily Omeprazole 20 mg capsule,delayed release(DR/EC) Discontinued 20 MG PO Daily 90 October 19, 2023 11:07am October 01, 2024 10:10am Omeprazole 20 MG TAKE 1 CAPSULE EVERY DAY ON AN EMPTY STOMACH FOLLOWED IN 30 MINUTES BY BREAKFAST Active Comment on above: Take 20 mg by mouth once daily. predniSONE 20 mg oral tablet (7 sources) Start: 11-06-2024 End: 01-29-2025 Prednisone 20 mg tablet Discontinued 20 MG PO As Directed November 06, 2024 12:00am January 29, 2025 8:57am 1 tab tid w/ food x 3 days, then bid w/ food x 3 days, then qd w/ food x 3 days Start: 09-11-2023 take 1 tablet by [facility] twice daily predniSONE 20 MG 1 tablet Orally bid w/ food for 5 days Aug, Active silver sulfADIAZINE 10 mg/ml topical cream (20 sources) Sulfonamide Antibacterial Start: 10-17-2023 End: 01-29-2025 Silver Sulfadiazine 1 % cream Discontinued 1 APPLIC TOPICAL Daily October 17, 2023 1:00am January 29, 2025 8:57am Silvadene 1 % 1 application Externally Once a day Active Silvadene 1 % 1 application Externally Once a day Active Problems Active Problems Problem Classification Problem Date Documented Date Episodic/Chronic Acute bronchitis (16 sources) Acute bronchitis; Translations: [Acute bronchitis due [...] disease, unspecified] Chronic Diabetes mellitus without complication (11 sources) Hyperglycemia; Translations: [Impaired fasting glucose] 05-28-2024 Episodic Disorders of lipid metabolism (20 sources) Pure hypercholesterolemia; 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] Onset: 02-09-2022 Chronic Esophageal disorders (17 sources) Gastroesophageal reflux disease; Translations: [Gastro-esophageal reflux disease without esophagitis] 01-02-2018 Chronic Essential hypertension (20 sources) Essential hypertension; Translations: [Essential (primary) hypertension] Chronic Fracture of upper limb (3 sources) Fracture of distal end of right radius; Translations: [Unspecified fracture of the lower end of right radius, initial encounter for closed fracture] 01-29-2025 Episodic Fracture of upper limb (1 source) Unspecified fracture of the lower end of left radius, initial encounter for closed fracture; Translations: [Fracture of distal end of left radius] 01-27-2025 Episodic Genitourinary symptoms and ill-defined conditions (1 source) [...] [Spondylolysis, lumbar region] Episodic Other acquired deformities (7 sources) Spondylolysis; Translations: [Spondylolysis, lumbar region] 10-18-2023 Episodic Other acquired deformities (7 sources) Spondylolysis, lumbar region; Translations: [Acquired spondylolisthesis] 01-22-2024 Episodic Other aftercare (2 sources) 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; Translations: [OTH CONTROL SYSTEMS TECHNICIAN CURRENT DRUG THERAPY] Onset: 11-06-2022 Episodic Other circulatory disease (7 sources) Elevated blood-pressure reading without diagnosis of hypertension; Translations: [Elevated blood-pressure reading, without diagnosis of hypertension] Episodic Other circulatory disease (6 sources) Other specified symptoms and signs involving the circulatory and respiratory systems; Translations: [OTH SPEC SX SIGNS INVLV CIRC RS] Onset: 09-26-2022 Episodic Other connective tissue disease (2 sources) Cramp in lower leg ; Translations: [Sleep related leg cramps] 12-09-2024 Chronic Other connective tissue disease (2 sources) Sleep related leg cramps; Translations: [Sleep related leg cramps] 12-09-2024 Chronic Other connective tissue disease (20 sources) Plantar [...] 09-11-2013 09-11-2013 Chronic Other nervous system disorders (2 sources) Lesion of ulnar nerve, left upper limb; 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] 01-28-2025 Chronic Other non-traumatic joint disorders (4 sources) Effusion, left knee; Translations: [EFFUSION LEFT KNEE] Onset: 11-05-2022 Episodic Other non-traumatic joint disorders (1 source) Pain in left knee Episodic Other non-traumatic joint disorders (2 sources) Pain in wrist; Translations: [Pain in left wrist] 01-28-2025 Episodic Other non-traumatic joint disorders (2 sources) Pain in left wrist; Translations: [Pain in joint, forearm] 01-20-2025 Episodic Other nutritional; endocrine; and metabolic disorders (5 sources) Weight decreased; Translations: [Abnormal weight loss] [...] (adult) (pediatric)] 01-02-2018 Chronic Residual codes; unclassified (12 sources) Obstructive sleep apnea (adult) (pediatric); Translations: [...] leg, initial encounter Episodic Superficial injury; contusion (13 sources) Contusion of left foot; Translations: [Contusion [...] Basophils (Bld) [#/Vol] Automated basophil count 0.0-0.1 [facility] Basophils/100 WBC Auto (Bld) on 12-05-2024 Basophils/100 WBC (Bld) Automated basophil % 0.2-2.0 [facility] Eosinophils/100 WBC Auto (Bl d)on 12-05-2024 Eosinophils/100 WBC (Bld) Automated eosinophil % 0.9-7.0 [facility] Erythrocyte distribution wid th Auto (RBC) [Ratio]on 12-05-2024 Erythrocyte distribution width (RBC) [Ratio] Erythrocyte distribution width [Ratio] by Automated count 11.0-15.0 [facility] Estimated glomerular filtrat ion rate (GFR) non- Americanon 12-05-2024 GFR/1.73 sq M.predicted among non-blacks MDRD (S/P/Bld) [Vol rate/Area] Estimated glomerular filtration rate (GFR) non- Low >=60 mL/min/1.73m 2 [facility] Hematocrit Auto (Bld) [Volum e fraction]on 12-05-2024 Hematocrit (Bld) [Volume fraction] Hematocrit [Volume Fraction] of Blood by Automated count Low 42.0-54.0 [facility] Hemoglobin [Mass/volume] in Bloodon 12-05-2024 Hemoglobin (Bld) [Mass/Vol] Hemoglobin [Mass/volume] in Blood 14.0-18.0 [facility] Laboratory - Chemistry and C hemistry - challengeon 12-05-2024 Calcium [Mass/Vol] 8.9 mg/dL 8.5-10.1 [facility] Chloride [Moles/Vol] 103 mmol/L 98-107 [facility] CO2 [Moles/Vol] 29.1 mmol/L 21.0-32.0 [facility] Creatinine [Mass/Vol] 1.33 mg/dL High 0.70-1.30 [facility] GFR/1.73 sq M.predicted MDRD (S/P/Bld) [Vol rate/Area] mL/min/{1.73_m2} >=60 mL/min/1.73m 2 [facility] Glucose [Mass/Vol] 101 mg/dL 74-106 [facility] Magnesium [Mass/Vol] 1.8 mg/dL 1.8-2.4 [facility] Potassium [Moles/Vol] 4.2 mmol/L 3.5-5.1 [facility] Sodium [Moles/Vol] 139 mmol/L 136-145 [facility] Urea nitrogen [Mass/Vol] 24.0 mg/dL High 7.0-18.0 [facility] Urea nitrogen/Creatinine [Mass ratio] 18.0 mg/mg [facility] Laboratory - Hematology and Cell countson 12-05-2024 Immature granulocytes/100 WBC (Bld) 0.2 % 0.0-0.5 [facility] - Microbiology an d Antimicrobial susceptibilityon 12-05-2024 SARS-CoV-2 (COVID-19) RNA RICKY+probe Ql (Unsp spec) Negative NEGATIVE [facility] Comment on above: This test has not be en FDA cleared or approved, but has beenauthorized by the FDA under an Emergency Use Authorization(EUA) for use by authorized laboratories certified underCLIA that meet the requirements to perform moderate [...] erythrocytes in Blood by Automated coun 4.0-11.0 [facility] Lymphocytes Auto (Bld) [#/Vo l]on 12-05-2024 Lymphocytes (Bld) [#/Vol] Lymphocytes [#/volume] in Blood by Automated count Low 1.2-3.8 [facility] Lymphocytes/100 WBC Auto (Bl d)on 12-05-2024 Lymphocytes/100 WBC (Bld) Lymphocytes/100 leukocytes in Blood by Automated count Low 20.5-60.0 [facility] MCH Auto (RBC) [Entitic mass ]on 12-05-2024 MCH (RBC) [Entitic mass] MCH [Entitic mass] by Automated count 25.9-34.0 [facility] MCHC Auto (RBC) [Mass/Vol]on 12-05-2024 MCHC (RBC) [Mass/Vol] MCHC [Mass/volume] by Automated count 29.9-35.2 [facility] MCV Auto (RBC) [Entitic vol] on 12-05-2024 MCV (RBC) [Entitic vol] MCV [Entitic volume] by Automated count High 80.0-94.0 [facility] Monocytes Auto (Bld) [#/Vol] on 12-05-2024 Monocytes (Bld) [#/Vol] Automated blood monocyte count 0.3-0.8 [facility] Monocytes/100 WBC Auto (Bld) on 12-05-2024 Monocytes/100 WBC (Bld) Automated monocyte % 1.7-12.0 [facility] Neutrophils Auto (Bld) [#/Vo l]on 12-05-2024 Neutrophils (Bld) [#/Vol] Neutrophils [#/volume] in Blood by Automated count 1.4-6.5 [facility] Neutrophils/100 WBC Auto (Bl d)on 12-05-2024 Neutrophils/100 WBC (Bld) Automated neutrophil % 43.0-75.0 [facility] No Panel Informationon 12-05 Eosinophils # (Auto) 0.3 10 3/uL 0.0-0.7 [facility] Immature Granulocyte # (Auto) 0.01 10 3/uL 0.00-0.03 [facility] Troponin I High Sensitivity 15.5 pg/mL 4.0-76.1 [facility] Comment on above: CUT-OFF POINTS HAVE [...] INFORMATION. Bedside Influenza Type A Antigen Negative [facility] Comment on above: Negative for Flu A p rotein antigen. Infection due to Flu Acannot be ruled out. Flu A antigen in the sample may bebelow the detection limit of the test. Bedside Influenza Type B Antigen Negative [facility] Comment on above: Negative for Flu B p rotein antigen. Infection due to Flu Bcannot be ruled out. Flu B antigen in the sample may bebelow the detection limit of the test. Platelet mean volume Auto (B ld) [Entitic vol]on 12-05-2024 Platelet mean volume (Bld) [Entitic vol] Platelet mean volume [Entitic volume] in Blood by Automated count 9.5-13.5 [facility] Platelets Auto (Bld) [#/Vol] on 12-05-2024 Platelets (Bld) [#/Vol] Platelets [#/volume] in Blood by Automated count Low 150-450 [facility] RBC Auto (Bld) [#/Vol]on RBC (Bld) [#/Vol] Erythrocytes [#/volume] in Blood by Automated count Low 4.70-6.10 [facility] Serum or plasma anion gap de terminationon 12-05-2024 Anion gap [Moles/Vol] Serum or plasma anion gap determination [facility] Influenza virus B Ag [Presen ce] in Upper respiratory specimen by Rapid immunoassayon 11-06-2024 FLUBV Ag IA.rapid Ql (Nph) Influenza virus B Ag [Presence] in Upper respiratory specimen by Rapid immunoassay [facility] No Panel Informationon 11-06 Influenza Type A (Rapid) Negative [facility] POC SARS CoV-2 Antigen Negative [facility] CNPNon 03-20-2023 CNPN Telephone (SPNMAV) RUPERTO THORPE ([id number]) 1940 [employer] Date Time Provider Department 03/20/23 [facility] During your visit today, we recorded the following information about you: Neida Porter MA 03/20/2023 12:30 PM Signed DATE OF SERVICE: 03/15/2023 PATIENT'S PHONE NUMBERS: [phone] (home) OR [facility] PROVIDER: Dr. Jaeger PROCEDURE: Elective Pain [...] work Requesting to call his CELL ONLY [phone] what to do next Leave Detailed messages [...] of spine injection schedulers to call at [phone]. Patient will call if he wants to schedule another injection. 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 Author [...] offered a procedure / surgery at a [facility] facility. Patient and I have discussed [...] surgery/procedure as indicated on the consent form. [facility] approved time out was performed identifying the site, side and level of procedure prior to start of procedure. [facility] - ELECTIVE PROCEDURE Lumbar Transforaminal [...] the entire procedure. David Jaeger DO, MBA [facility] 02-26-2023 CHELLE Telephone (SPNMAV) RUPERTO THORPE ([id number]) 1940 [facility]* Date Time Provider Department 02/26/23 DAVID JAEGER During your visit today, we recorded the following information about you: Linda Knox LPN 02/26/2023 4:49 PM Signed [facility]. Pt must have [...] okay to take. Advised on location of [facility]-[address] [place] [address] Pt will receive a follow up call several days after by a steam powerplant supervisor. If you experience any increase in weakness, difficulty walking or significant increase in pain that last more than 4 hours, please proceed to the Emergency Room and tell them you had a spine procedure done recently. Additionally, call us and notify us of these symptoms. Please call [phone] if you have any questions. Pt verbalized [...] Status:Closed by LINDA KNOX LPN on 02/26/23 [facility] 02-19-2023 CNPN Telephone (SPNMAV) RUPERTO THORPE ([id number]) 1940 [address] [employer]* Date Time Provider Department 02/19/23 DAVID JAEGER During your visit today, we recorded the following information about you: Camilla Jarrell Pss 02/19/2023 9:27 AM Signed Ruperto Thorpe daughter Celi is calling David Jaegre DO today to ask about getting patient a shot again - Last one in 2020 Please advise what patient needs as far as OV or MRI or if he can be scheduled for procedure - daughter states she left a VM somewhere last week but never heard back Please call Celi as patient cannot hear well [phone] Patient has been identified by name and birthdate. Duration of symptoms: N/A Person calling: daughter: Celi Call patient at: N/A [phone] (home) [phone] (cell) Was an appointment scheduled: No Closing statement: Results or non-symptom based questions: Thank you for calling [facility], your call will be returned within the next business day. Camilla Jarrell Pss Linda Knox LPN 02/19/2023 9:45 AM Signed Spine Intervention order formatted for review Linda Knox BOILER OPERATOR 02/19/2023 11:59 AM Signed Order approved Spoke to daughter in [place]ards to pre procedure instructions. Daughter given scheduling number [phone] Pt must have a bulk driver. Pt advised to arrive 30 min prior to the time given by the central scheduler. Pt advised will also receive a call the day before from the surgery center to confirm date/time. Pt can eat and drink as normal. and Pt can take medications as normal. No alcohol 24 hours prior. Pt is on ASA.- 81 mg okay to take. and must Advised on location of ASC-2nd floor [facility] Pt will receive a follow up call several days after by a steam powerplant supervisor. If you experience any increase in weakness, difficulty walking or significant increase in pain that last more than 4 hours, please proceed to the Emergency Room and tell them you had a spine procedure done recently. Additionally, call us and notify us of these symptoms. Please call [phone] if you have any questions. Pt verbalized understanding. 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 Normal [facility] XR knee LT 4V*on 11-09-2022 XR knee LT 4V* [facility] [address], [place] [address] XRay Report Signed Patient: Ruperto Thorpe MR#: [id number] 5 : 1940 Acct:[id number] Age/Sex: 82 / M ADM Date: 11/09/22 Loc: SOXD Room: Type: [facility] Attending Dr: Jose Enrique Leblanc II, MD [...] Darren Yuen M.D.11/09/2022 5:03 PM Dictation Location: [place] [address] Transcribed By: [facility] 11/09/221702 Dictated By: Darren Yuen II, MD 11/09/221700 Signed By: 11/09/221702 Normal [facility] XR knee LT 4V* [facility] [employer] Other XR knee LT 4V* [facility] [employer] Other XR knee LT 4V* [address] [place] [employer] Other XR knee LT 4V* [place] [address] No rt [employer] Other XR knee LT 4V* XRay Report [employer] Other XR knee LT 4V* Signed [employer] Other XR knee LT 4V* Patient: Ruperto Thorpe MR#: [id number] [employer] Other XR knee LT 4V* 5 [employer] Other XR knee LT 4V* : 1940 Acct:[id number] [employer] Other XR knee LT 4V* Age/Sex: 82 / M ADM Date: 11/09/22 [employer] Other XR knee LT 4V* Loc: [facility]XD [facility]: [facility] [employer] Other XR knee LT 4V* Attending Dr: Jose Enrique Leblanc II, MD [employer] Other XR knee LT 4V* Copies to: Jose Enrique Leblanc MD [employer] Other XR knee LT 4V* Ordering Provider: Jose Enrique Leblanc MD [employer] Other XR knee LT 4V* Date of Service: 11/09/22 [employer] Other XR knee LT 4V* XR/XR knee LT 4V*: Acute pain of left knee [employer] Other XR knee LT 4V* XR knee LT 4V* 11/09/2022 3:15 PM [employer] Other XR knee LT 4V* SIGNS AND SYMPTOMS: Acute pain of left knee [employer] Other XR knee LT 4V* PROTOCOL: Frontal, lateral, oblique, and sunrise views of the left knee [employer] Other XR knee LT 4V* COMPARISON: 11/05/2022 [employer] Other XR knee LT 4V* FINDINGS: [employer]tw[employer] Other XR knee LT 4V* There is similar narrowing of the weightbearing joint spaces with chondrocalcinosis of the menisci [employer] Other XR knee LT 4V* suggesting underlyin g CPPD. There is narrowing of the patellofemoral joint space with spurring at [employer] Other XR knee LT 4V* the superior pole of patella. There is a small joint effusion. No soft tissue swelling. No acute [employer] Other XR knee LT 4V* displaced fracture. Vascular calcifications are present posteriorly. [employer] Other XR knee LT 4V* XR/XR knee LT 4V* [employer] Other XR knee LT 4V* IMPRESSION: [employer] Other XR knee LT 4V* Tricompartmental degenerative changes are noted in the left knee with a small joint effusion. 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 [employer] Other XR knee LT 4V* Impression dictated by: Darren Yuen M.D.11/09/2022 5:03 PM [employer] Other XR knee LT 4V* Dictation Location: [place] [address] [employer] Other XR knee LT 4V* Transcribed By: COLIN 11/09/22 [facility] [employer] Other XR knee LT 4V* Dictated By: Darren Yuen II, MD 11/09/22 [facility] [employer] Other XR knee LT 4V* Signed By: [employer] Other XR knee LT 4V* 11/09/221702 [place] [employer] Other XR pelvis 1-2Von 11-09-2022 XR pelvis 1-2V [facility] [place] [address] [place] [address] XRay Report Signed Patient: Ruperto Thorpe MR#: [id number] 5 : 1940 Acct:[id number] Age/Sex: 82 / M ADM Date: 11/09/22 Loc: [facility] [place] Room: Type: [facility] Attending Dr: Jose Enrique Leblanc II, MD [...] Darren Yuen M.D.11/09/2022 5:01 PM Dictation Location: [facility] Transcribed By: [facility] 11/09/221700 Dictated By: Darren Yuen II, MD 11/09/221699 Signed By: 11/09/221700 [facility] XR pelvis 1-2V XR/XR pelvis 1-2V: Acute pain of left knee [employer] Other XR pelvis 1-2V XR pelvis 1-2V 11/09/2022 3:15 PM [employer] Other XR pelvis 1-2V SIGNS AND SYMPTOMS: Left knee pain [employer] Other XR pelvis 1-2V PROTOCOL: Frontal radiograph of the chest [employer] Other XR pelvis 1-2V COMPARISON: None [facility] [employer] Other XR pelvis 1-2V There is mild narrowing of the left hip joint space with subcortical cystic change on both sides of [employer] Other XR pelvis 1-2V the joint along the acetabular there is chondrocalcinosis of the labrum overlying the superior [employer] Other XR pelvis 1-2V acetabular rim and superior lateral femoral head. The bony ring of the pelvis is intact. There is [employer] Other XR pelvis 1-2V total right hip arthroplasty. Degenerative changes are noted in the sacroiliac joints. No fracture [employer] Other XR pelvis 1-2V is [employer] Other XR pelvis 1-2V XR/XR pelvis 1-2V [employer] Other XR pelvis 1-2V Degenerative changes are noted in the left hip with findings suspicious for previous labral [employer] Other XR pelvis 1-2V pathology. [employer] Other XR pelvis 1-2V Postoperative change s are noted in the right hip with total right hip arthroplasty hardware. [employer] Other XR pelvis 1-2V Impression dictated by: Darren Yuen M.D.11/09/2022 5:01 PM [employer] Other XR pelvis 1-2V Transcribed By: COLIN 11/09/22 1701 [employer] Other XR pelvis 1-2V Dictated By: Darren Yuen II, MD 11/09/22 1700 [employer] Other XR pelvis 1-2V 11/09/22 1701 [employer] Other XR KNEE LT 4V or >on [...] There is chondrocalcinosis. Soft tissues: Unremarkable. IMPRESSION: [id number] osteoarthritis as described above. Chondrocalcinosis. No acute fracture or dislocation. Electronically authenticated by: CHUCK JONES Date: 2022-11-05 11:19 Normal [facility] US CAROTID ART BILon 023 US CAROTID [...] JONAS MCLEOD Date: 2022-09-26 10:58 Normal [facility] CBC AUTO DIFFon 08-10-2022 BASO # 0.0 103/ul Normal 0.0-0.1 [facility] Comment on above: Performed By: #### C BC #### [facility] [address] [place] [address] Dr. Alexis Brink Basophils/100 WBC (Bld) 0.7 % Normal 0.2-2.0 [facility] Comment on above: Performed By: #### C BC #### [facility] [address] [place] [address] Dr. Alexis Brink EO # 0.3 103/ul Normal 0.0-0.7 [facility] Comment on above: Performed By: #### C BC #### [facility] [address] [place] [address] Dr. Alexis Brink Eosinophils/100 WBC (Bld) 6.1 % Normal 0.9-7.0 [facility] Comment on above: Performed By: #### C BC #### [facility] [address] [place] [address] Dr. Alexis Brink Erythrocyte distribution width (RBC) [Ratio] 12.1 % Normal 11.0-15.0 [facility] Comment on above: Performed By: #### C BC #### [facility] [address] [place] [address] Dr. Alexis Brink Hematocrit (Bld) [Volume fraction] 44.2 % Normal 42.0-54.0 [facility] Comment on above: Performed By: #### C BC #### [facility] [address] [place] [address] Dr. Alexis Brink Hemoglobin (Bld) [Mass/Vol] 14.9 g/dL Normal 14.0-18.0 [facility] Comment on above: Performed By: #### C BC #### [facility] [address] [place] [address] Dr. Alexis Brink IG # 0.01 10e3/ul Normal 0.00-0.03 [facility] Comment on above: Performed By: #### C BC #### [facility] [address] [place] [address] Dr. Alexis Brink IG % 0.2 % Normal 0.0-0.5 [facility] Comment on above: Performed By: #### C BC #### [facility] [address] [place] [address] Dr. Alexis Brink LYMPH # 1.2 103/ul Normal 1.2-3.8 [facility] Comment on above: Performed By: #### C BC #### [facility] [address] [place] [address] Dr. Alexis Brink Lymphocytes/100 WBC (Bld) 21.3 % Normal 20.5-60.0 [facility] Comment on above: Performed By: #### C BC #### [facility] [address] [place] [address] Dr. Alexis Brink MANUAL DIFF REQ NO Normal [facility] Comment on above: Performed By: #### C BC #### [facility] [address] [place] [address] Dr. Alexis Brink MCH (RBC) [Entitic mass] 30.7 pg Normal 25.9-34.0 [facility] Comment on above: Performed By: #### C BC #### [facility] [address] [place] [address] Dr. Alexis Brink MCHC (RBC) [Mass/Vol] 33.7 g/dL Normal 29.9-35.2 [facility] Comment on above: Performed By: #### C BC #### [facility] [address] [place] [address] Dr. Alexis Brnik MCV (RBC) [Entitic vol] 91.1 fL Normal 80.0-94.0 [facility] Comment on above: Performed By: #### C BC #### [facility] [address] [place] [address] Dr. Alexis Brink MONO # 0.5 103/ul Normal 0.3-0.8 [facility] Comment on above: Performed By: #### C BC #### [facility] [address] [place] [address] Dr. Alexis Brink Monocytes/100 WBC (Bld) 8.5 % Normal 1.7-12.0 [facility] Comment on above: Performed By: #### C BC #### [facility] [address] [place] [address] Dr. Alexis Brink NEUT # 3.5 103/ul Normal 1.4-6.5 [facility] Comment on above: Performed By: #### C BC #### [facility] [address] [place] [address] [address] Alexis Brink Neutrophils/100 WBC (Bld) 63.2 % Normal 43.0-75.0 [facility] Comment on above: Performed By: #### C BC #### [facility] [address] [place] [address] [address] Alexis Brink Platelet mean volume (Bld) [Entitic vol] 10.0 fL Normal 9.5-13.5 [facility] Comment on above: Performed By: #### C BC #### [facility] [address] [place] [address] Dr. Alexis Brink PLT 120 103/ul Critically low 150-450 [facility] Comment on above: Performed By: #### C BC #### [facility] [address] [place] [address] Dr. Alexis Brink RBC 4.85 106/ul Normal 4.70-6.10 [facility] Comment on above: Performed By: #### C BC #### [facility] [address] [place] [address] Dr. Alexis Brink WBC 5.6 103/ul Normal 4.0-11.0 [facility] Comment on above: Performed By: #### C BC #### [facility] [address] [place] [address] Dr. Alexis Brink [facility]21 SARS-CoV-2 (COVID-19) RNA RICKY+probe Ql (Unsp spec) Not detected Normal NOT DETECTED [facility] Comment on above: Result Comment: This test is not yet approved or cleared by the [place] FDA. When there are no FDA-approved or cleared tests available, and other criteria are met, FDA can make tests available under an emergency access mechanism called an Emergency Use Authorization (EUA). The EUA for this test is supported by the [employer] Installer of Health and Human Service's (HHS's) declaration [...] with SARS-CoV-2. Performed By: #### C VDTB ####[facility] [id number] [place], [place] [address]Dr. Alexis Brink INFLUENZA A AND B AGon 08-10 [facility] SEE BELOW Normal [facility] Comment on above: Result Comment: Nega tive for Flu A protein angiten. Infection due to Flu A cannot be ruled out. Flu A angiten in the sample may be below the detection limit of the test. Performed By: #### I NFLUAB ####[place] [address]Dr. Alexis Brink INFLUBNEG SEE BELOW Normal [facility] Comment on above: Result Comment: Nega tive for Flu B protein antigen. Infection due to Flu B cannot be ruled out. Flu B antigen in the sample may be below the detection limit of the test. Performed By: #### I NFLUAB ####[place] [address]Dr. Alexis Brink INFLUENZA A AG Negative Normal NEGATIVE SEE COMMENT [facility] Comment on above: Performed By: #### I NFLUAB ####[facility] [id number] [place], [place] [address]Dr. Alexis Brink INFLUENZA B AG Negative Normal NEGATIVE SEE COMMENT [facility] Comment on above: Performed By: #### I NFLUAB ####[facility] [id number] [place], [place] [address]Dr. Alexis Brink INTERNAL CONTROLS Within Normal Limits Normal Wi thin Normal Limits [facility] Comment on above: Performed By: #### I NFLUAB ####[facility] [id number] [place], [place] [address]Dr. Alexis Brink PROF CHEM 8 (BAS METB)on Anion gap [Moles/Vol] 11.4 mmol/L Normal [facility] Comment on above: Performed By: #### B MP, HSTROPN #### [facility] [address] [place] [address] [address] Alexis Brink Calcium [Mass/Vol] 8.9 mg/dL Normal 8.5-10.1 [facility] Comment on above: Performed By: #### B MP, HSTROPN #### [facility] [address] [place] [address] [address] Alexis Brink Chloride [Moles/Vol] 102 mmol/L Normal 98-107 [facility] Comment on above: Performed By: #### B MP, HSTROPN #### [facility] [address] [place] [address] [address] Alexis Brink CO2 [Moles/Vol] 28.8 mmol/L Normal 21.0-32.0 [facility] Comment on above: Performed By: #### B MP, HSTROPN #### [facility] [address] [place] [address] [address] Alexis Brink Creatinine [Mass/Vol] 1.35 mg/dL Critically high 0.70-1.30 [facility] Comment on above: Performed By: #### B MP, HSTROPN #### [facility] [address] [place] [address] [address] Alexis Brink EGFR-AF PAPUA [place] GU[place] >60 Normal >=60 [facility] Comment on above: Performed By: #### B MP, HSTROPN #### [facility] [address] [place] [address] [address] Alexis Brink EGFR-NON AF PAPUA [place] 51 mL/min/1.73m2 Critically low >=60 [facility] Comment on above: Performed By: #### B MP, HSTROPN #### [facility] [address] [place] [address] [address] Alexis Brink Glucose [Mass/Vol] 109 mg/dL Critically high 74-106 [facility] Comment on above: Performed By: #### B MP, HSTROPN #### [facility] [address] [place] [address] [address] Alexis Brink Potassium [Moles/Vol] 4.2 mmol/L Normal 3.5-5.1 [facility] Comment on above: Performed By: #### B MP, HSTROPN #### [facility] [address] [place] [address] [address] Alexis Brink Sodium [Moles/Vol] 138 mmol/L Normal 136-145 [facility] Comment on above: Performed By: #### B MP, HSTROPN #### [facility] [address] [place] [address] [address] Alexis Brink Urea nitrogen [Mass/Vol] 18.0 mg/dL Normal 7.0-18.0 [facility] Comment on above: Performed By: #### B NARA, HSTROPN #### [facility] [address] [place] [address] [address] Alexis Brink Urea nitrogen/Creatinine [Mass ratio] 13.3 mg/mg Normal [facility] Comment on above: Performed By: #### B NARA, HSTROPN #### [facility] [address] [place] [address] Dr. Alexis Brink TROPONIN, HIGH SENSITIVITYon 08-10-2022 HSTROP 22.2 pg/mL Normal 4.0-76.1 [facility] Comment on above: Result Comment: CUT- OFF POINTS HAVE BEEN ESTABLISHED BASED ON THE FOURTH UNIVERSAL DEFINITIONS OF MYOCARDIAL INFARCTION. THE UPPER REFERENCE LIMIT (URL) OF TROPONIN, DEFINED THE 99TH PERCENTILE OF cTnI DISTRIBUTION IN A REFERENCE POPULATION, HAS BEEN CONFIRMED THE DECISION THRESHOLD FOR ME DIAGNOSIS. Performed By: #### B MP, HSTROPN #### [facility] [address] [place] [address] Dr. Alexis Brink XR CHEST 1 Von [...] RADHA UNDERWOOD Date: 2022-08-10 16:07 Normal [facility] CBC AUTO DIFFon 02-09-2022 BASO # 0.0 103/ul Normal 0.0-0.1 [facility] Comment on above: Performed By: #### C BC #### [facility] [address] [place] [address] [address] Alexis Brink Basophils/100 WBC (Bld) 0.6 % Normal 0.2-2.0 [facility] Comment on above: Performed By: #### C BC #### [facility] [address] [place] [address] [address] Alexis Brink EO # 0.5 103/ul Normal 0.0-0.7 [facility] Comment on above: Performed By: #### C BC #### [facility] [address] [place] [address] [address] Alexis Brink Eosinophils/100 WBC (Bld) 7.2 % Critically high 0.9-7.0 [facility] Comment on above: Performed By: #### C BC #### [facility] [address] [place] [address] [address] Alexis Brink Erythrocyte distribution width (RBC) [Ratio] 12.4 % Normal 11.0-15.0 [facility] Comment on above: Performed By: #### C BC #### [facility] [address] [place] [address] [address] Alexis Brink Hematocrit (Bld) [Volume fraction] 45.5 % Normal 42.0-54.0 [facility] Comment on above: Performed By: #### C BC #### [facility] [address] [place] [address] [address] Alexis Brink Hemoglobin (Bld) [Mass/Vol] 15.4 g/dL Normal 14.0-18.0 [facility] Comment on above: Performed By: #### C BC #### [facility] [address] [place] [address] Dr. Alexis Brink IG # 0.02 10e3/ul Normal 0.00-0.03 [facility] Comment on above: Performed By: #### C BC #### [facility] [address] [place] [address] Dr. Alexis Brink IG % 0.3 % Normal 0.0-0.5 [facility] Comment on above: Performed By: #### C BC #### [facility] [address] [place] [address] Dr. Alexis Brink LYMPH # 1.3 103/ul Normal 1.2-3.8 [facility] Comment on above: Performed By: #### C BC #### [facility] [address] [place] [address] Dr. Alexis Brink Lymphocytes/100 WBC (Bld) 17.8 % Critically low 20.5-60.0 [facility] Comment on above: Performed By: #### C BC #### [facility] [address] [place] [address] Dr. Alexis Brink MANUAL DIFF REQ NO Normal [facility] Comment on above: Performed By: #### C BC #### [facility] [address] [place] [address] Dr. Alexis Brink MCH (RBC) [Entitic mass] 31.4 pg Normal 25.9-34.0 [facility] Comment on above: Performed By: #### C BC #### [facility] [address] [place] [address] Dr. Alexis Brink MCHC (RBC) [Mass/Vol] 33.8 g/dL Normal 29.9-35.2 [facility] Comment on above: Performed By: #### C BC #### [facility] [address] [place] [address] Dr. Alexis Brink MCV (RBC) [Entitic vol] 92.9 fL Normal 80.0-94.0 [facility] Comment on above: Performed By: #### C BC #### [facility] [address] [address] [address] Alexis Brink MONO # 0.7 103/ul Normal 0.3-0.8 [facility] Comment on above: Performed By: #### C BC #### [facility] [address] [place] [address] Dr. Alexis Brink Monocytes/100 WBC (Bld) 9.6 % Normal 1.7-12.0 [facility] Comment on above: Performed By: #### C BC #### [facility] [address] [place] [address] Dr. Alexis Brink NEUT # 4.6 103/ul Normal 1.4-6.5 [facility] Comment on above: Performed By: #### C BC #### [facility] [address] [place] [address] Dr. Alexis Brink Neutrophils/100 WBC (Bld) 64.5 % Normal 43.0-75.0 [facility] Comment on above: Performed By: #### C BC #### [facility] [address] [place] [address] Dr. Alexis Brink Platelet mean volume (Bld) [Entitic vol] 10.7 fL Normal 9.5-13.5 [facility] Comment on above: Performed By: #### C BC #### [facility] [address] [place] [address] Dr. Alexis Brink PLT 130 103/ul Critically low 150-450 [facility] Comment on above: Performed By: #### C BC #### [facility] [address] [place] [address] Dr. Alexis Brink RBC 4.90 106/ul Normal 4.70-6.10 [facility] Comment on above: Performed By: #### C BC #### [facility] [address] [place] [address] Dr. Alexis Brink WBC 7.1 103/ul Normal 4.0-11.0 [facility] Comment on above: Performed By: #### C BC #### [facility] [address] [address] [address] Alexis Brink DIRECT LDLon 02-09-2022 Cholesterol in LDL [Mass/Vol] 144 mg/dL Normal [facility] Comment on above: Performed By: #### D LDL, BMP ####[facility] [address] [place] [address]Dr. Alexis Brink DLDL NORMAL SEE BELOW Normal [facility] Comment on above: Result Comment: <100 mg/dl OPTIMAL 100 - 129 mg/dl NEAR OR ABOVE OPTIMAL 130 - 159 mg/dl BORDERLINE HIGH 160 - 189 mg/dl HIGH >190 mg/dl VERY HIGH Performed By: #### D LDL, BMP ####[facility] [id number] [place] [address]Dr. Alexis Brink PROF CHEM 8 (BAS METB)on Anion gap [Moles/Vol] 9.3 mmol/L Normal [facility] Comment on above: Performed By: #### D LDL, BMP #### [facility] [address] [address] [address] Alexis Brink Calcium [Mass/Vol] 8.7 mg/dL Normal 8.5-10.1 [facility] Comment on above: Performed By: #### D LDL, BMP #### [facility] [address] [address] [address] Alexis Brink Chloride [Moles/Vol] 103 mmol/L Normal 98-107 [facility] Comment on above: Performed By: #### D LDL, BMP #### [facility] [address] [address] [address] Alexis Brink CO2 [Moles/Vol] 32.1 mmol/L Critically high 21.0-32.0 [facility] Comment on above: Performed By: #### D LDL, BMP #### [facility] [address] [address] [address] Alexis Brink Creatinine [Mass/Vol] 1.35 mg/dL Critically high 0.70-1.30 [facility] Comment on above: Performed By: #### D LDL, BMP #### [facility] [address] [address] [address] Alexis Brink EGFR-AF PAPUA [place] >60 Normal >=60 [facility] Comment on above: Performed By: #### D LDL, BMP #### [facility] [address] [address] [address] Alexis Brink EGFR-NON AF PAPUA [place] 51 mL/min/1.73m2 Critically low >=60 [facility] Comment on above: Performed By: #### D LDL, BMP #### [facility] [facility] [address] [address] [address] Alexis Brink Glucose [Mass/Vol] 90 mg/dL Normal 74-106 [facility] Comment on above: Performed By: #### D LDL, BMP #### [facility] [address] [place] [address] Dr. Alexis Brink Potassium [Moles/Vol] 4.4 mmol/L Normal 3.5-5.1 [facility] Comment on above: Performed By: #### D LDL, BMP #### [facility] [address] [place] [address] Dr. Alexis Brink Sodium [Moles/Vol] 140 mmol/L Normal 136-145 [facility] Comment on above: Performed By: #### D LDL, BMP #### [facility] [address] [place] [address] Dr. Alexis Brink Urea nitrogen [Mass/Vol] 16.0 mg/dL Normal 7.0-18.0 [facility] Comment on above: Performed By: #### D LDL, BMP #### [facility] [address] [place] [address] Dr. Alexis Brink Urea nitrogen/Creatinine [Mass ratio] 11.9 mg/mg Normal [facility] Comment on above: Performed By: #### D LDL, BMP #### [facility] [address] [place] [address] Dr. Alexis Brink UA RANDOMon 02-09-2022 Bilirubin Ql (U) Negative Normal NEGATIVE [facility] Comment on above: Performed By: #### U A #### [facility] [address] [place] [address] Dr. Alexis Brink Clarity (U) CLEAR Normal CLEAR [facility] Comment on above: Performed By: #### U A #### [facility] [address] [place] [address] Dr. Alexis Brink Color (U) YELLOW Normal YELLOW [facility] Comment on above: Performed By: #### U A #### [facility] [address] [place] [address] Dr. Alexis Brink Glucose Ql (U) Negative Normal NEGATIVE [facility] Comment on above: Performed By: #### U A #### [facility] [address] [place] [address] Dr. Alexis Brink Hemoglobin Ql (U) Negative Normal NEGATIVE [facility] Comment on above: Performed By: #### U A #### [facility] [address] [place] [address] Dr. Alexis Brink Ketones Ql (U) Negative Normal NEGATIVE [facility] Comment on above: Performed By: #### U A #### [facility] [address] [place] [address] Dr. Alexis Brink LEUKOCYTES Negative Normal NEGATIVE [facility] Comment on above: Performed By: #### U A #### [facility] [address] [place] [address] Dr. Alexis Brink Nitrite Ql (U) Negative Normal NEGATIVE [facility] Comment on above: Performed By: #### U A #### [facility] [address] [place] [address] Dr. Alexis Brink pH (U) 7.0 [pH] Normal 5-9 [facility] Comment on above: Performed By: #### U A #### [facility] [address] [place] [address] Dr. Alexis Brink SPEC GRAVITY 1.015 Normal 1.005-<=1.02 5 [facility] Comment on above: Performed By: #### U A #### [facility] [address] [place] [address] Dr. Alexis Brink UA PROTEIN Negative Normal NEGATIVE/ TRACE [facility] Comment on above: Performed By: #### U A #### [facility] [address] [place], [place] [address] Dr. Alexis Brink Urobilinogen Qn (U) 1.0 {Kay'U}/dL Normal 0.2 - 1. 0 [facility] Comment on above: Performed By: #### U A #### [facility] [address] [place], [place] [address] Dr. Alexis Brink XR CHEST 2 Von [...] HAWLEY Date: 2021-12-06 15:42 Normal [facility] Nonvisit Note - PTon 018 Nonvisit Note - PT Cert letter refaxed for signature this date - third and final attempt. Normal [facility] Nonvisit Note - PTon 018 Nonvisit Note - PT Cert letter refaxed to Dr Gooden's office. Second attempt. Normal [facility] Coding Summary.on 01-25-2018 Coding Summary. CODING DATE: 01/25/2018 FINAL [facility] STATUS: PAYOR: Medicare ADMIT DX: REASON [...] am Normal [facility] Coding Summary. CODING DATE: 01/25/2018 FINAL [facility] STATUS: PAYOR: Medicare ADMIT DX: REASON [...] am Normal [facility] SURGICAL PATHOLOGYon 05-15-2 018 SURGICAL PATHOLOGY Specimen originated from [facility] #: [id number] Physician: BETH GOODEN MD FINAL DIAGNOSISRight hip, [...] to 8.5 x 8.5 x 1.8 cm. Lettuce Trimmer sectionsare submitted as follows: A1 soft tissue, A2 bone submitted afterdecalcification.B Юлия/lachelle 01/01/2018 Gross examination performed at [facility], [address] [place] [id number] of Report: 01/07/2018Date of Procedure: 01/01/2018Date of Receipt: 01/01/2018Submitted by: BETH GOODEN MDLocation: [id number] interpretation performed at [facility], [address] [place] [id number]. Normal [facility] Comment on above: Performed By: #### S ####See report for performing lab information. Vital Signs Date Time Vital Sign Value Performing Clinician Facility 01-20-2025 10:50-0400 Body height 167.64 cm [facility] 01-20-2025 10:50-0400 Body mass index (BMI) [Ratio] 28.5 kg/m2 [facility] 01-20-2025 10:50-0400 Body weight 80.37 kg [facility] 01-20-2025 10:50-0400 Diastolic blood pressure 74 mm[Hg] [facility] 01-20-2025 10:50-0400 Heart rate 66 /min [facility] 01-20-2025 10:50-0400 Respiratory rate 16 /min [facility] 01-20-2025 10:50-0400 SaO2% (BldA) [Mass fraction] 95 % [facility] 01-20-2025 10:50-0400 Systolic blood pressure 134 mm[Hg] [facility] 12-09-2024 15:37-0400 Body height 167.64 cm [facility] 12-09-2024 15:37-0400 Body mass index (BMI) [Ratio] 28.9 kg/m2 [facility] 12-09-2024 15:37-0400 Body weight 81.36 kg [facility] 12-09-2024 15:37-0400 Diastolic blood pressure 74 mm[Hg] [facility] 12-09-2024 15:37-0400 Heart rate 75 /min [facility] 12-09-2024 15:37-0400 Respiratory rate 12 /min [facility] 12-09-2024 15:37-0400 SaO2% (BldA) [Mass fraction] 98 % [facility] 12-09-2024 15:37-0400 Systolic blood pressure 153 mm[Hg] [facility] 11-06-2024 09:02-0400 Body height 167.64 cm [facility] 11-06-2024 09:02-0400 Body mass index (BMI) [Ratio] 28.9 kg/m2 [facility] 11-06-2024 09:02-0400 Body weight 81.36 kg [facility] 11-06-2024 09:02-0400 Diastolic blood pressure 67 mm[Hg] [facility] 11-06-2024 09:02-0400 Heart rate 82 /min [facility] 11-06-2024 09:02-0400 Respiratory rate 24 /min [facility] 11-06-2024 09:02-0400 SaO2% (BldA) [Mass fraction] 98 % [facility] 11-06-2024 09:02-0400 Systolic blood pressure 130 mm[Hg] [facility] 10-01-2024 08:35-0500 Body height 167.64 cm [facility] 10-01-2024 08:35-0500 Body mass index (BMI) [Ratio] 28.5 kg/m2 [facility] 10-01-2024 08:35-0500 Body weight 80.34 kg [facility] 10-01-2024 08:35-0500 Diastolic blood pressure 74 mm[Hg] [facility] 10-01-2024 08:35-0500 Heart rate 67 /min [facility] 10-01-2024 08:35-0500 Respiratory rate 16 /min [facility] 10-01-2024 08:35-0500 Systolic blood pressure 155 mm[Hg] [facility] 05-28-2024 08:30-0400 Body height 167.64 cm [facility] 05-28-2024 08:30-0400 Body mass index (BMI) [Ratio] 27.1 kg/m2 [facility] 05-28-2024 08:30-0400 Body weight 76.31 kg [facility] 05-28-2024 08:30-0400 Diastolic blood pressure 89 mm[Hg] [facility] 05-28-2024 08:30-0400 Heart rate 61 /min [facility] 05-28-2024 08:30-0400 Respiratory rate 12 /min [facility] 05-28-2024 08:30-0400 Systolic blood pressure 139 mm[Hg] [facility] 01-22-2024 09:16-0400 Body height 167.64 cm [facility] 01-22-2024 09:16-0400 Body mass index (BMI) [Ratio] 29.3 kg/m2 [facility] 01-22-2024 09:16-0400 Body weight 82.55 kg [facility] 01-22-2024 09:16-0400 Diastolic blood pressure 72 mm[Hg] [facility] 01-22-2024 09:16-0400 Heart rate 64 /min [facility] 01-22-2024 09:16-0400 Respiratory rate 20 /min [facility] 01-22-2024 09:16-0400 Systolic blood pressure 131 mm[Hg] [facility] 09-28-2023 11:00-0500 Body height 167.64 cm Cecilio Ball Other [facility] [employer] Other 09-28-2023 11:00-0500 Body mass index (BMI) [Ratio] 30.24 kg/m2 Cecilio Ball Other [facility] [employer] Other 09-28-2023 11:00-0500 Body weight 85 kg Cecilio Ball Other [facility] [employer] Other 09-28-2023 11:00-0500 Respiratory rate 20 /min Cecilio Ball Other [employer] Other 09-28-2023 11:00-0500 SaO2% (BldA) [Mass fraction] 97 % Cecilio Ball Other [employer] Other 09-11-2023 10:45-0500 Body height 167.64 cm Cecilio Ball Other [employer] Other 09-11-2023 10:45-0500 Body mass index (BMI) [Ratio] 29.86 kg/m2 Cecilio Ball Other [employer] Other 09-11-2023 10:45-0500 Body temperature 97.5 [degF] Cecilio Ball Other [employer] Other 09-11-2023 10:45-0500 Body weight 83.92 kg Cecilio Ball Other [employer] Other 09-11-2023 10:45-0500 Diastolic blood pressure 81 mm[Hg] Cecilio Ball Other [employer] Other 09-11-2023 10:45-0500 Respiratory rate 20 /min Cecilio Ball Other [employer] Other 09-11-2023 10:45-0500 SaO2% (BldA) [Mass fraction] 98 % Cecilio Ball Other [employer] Other 09-11-2023 10:45-0500 Systolic blood pressure 161 mm[Hg] Cecilio Ball Other [employer] Other 08-01-2023 10:15-0500 Body height 167.64 cm Cecilio Ball Other [employer] Other 08-01-2023 10:15-0500 Body mass index (BMI) [Ratio] 29.86 kg/m2 Cecilio Ball Other [employer] Other 08-01-2023 10:15-0500 Body weight 83.92 kg Cecilio Ball Other [employer] Other 08-01-2023 10:15-0500 Diastolic blood pressure 79 mm[Hg] Cecilio Ball Other [employer] Other 08-01-2023 10:15-0500 Respiratory rate 20 /min Cecilio Ball Other [employer] Other 08-01-2023 10:15-0500 Systolic blood pressure 172 mm[Hg] Cecilio Ball Other [employer] Other 07-17-2023 10:15-0500 Body height 167.64 cm Cecilio Ball Other [employer] Other 07-17-2023 10:15-0500 Body mass index (BMI) [Ratio] 29.89 kg/m2 Cecilio Ball Other [employer] Other 07-17-2023 10:15-0500 Body weight 84.01 kg Cecilio Ball Other [employer] Other 07-17-2023 10:15-0500 Diastolic blood pressure 78 mm[Hg] Cecilio Ball Other [employer] Other 07-17-2023 10:15-0500 Respiratory rate 20 /min Cecilio Ball Other [employer] Other 07-17-2023 10:15-0500 Systolic blood pressure 172 mm[Hg] Cecilio Ball Other [employer] Other 07-10-2023 14:45-0500 Body height 167.64 cm Cecilio Ball Other [employer] Other 07-10-2023 14:45-0500 Body mass index (BMI) [Ratio] 29.47 kg/m2 Cecilio Ball Other [employer] Other 07-10-2023 14:45-0500 Body weight 82.83 kg Cecilio Ball Other [employer] Other 07-10-2023 14:45-0500 Diastolic blood pressure 80 mm[Hg] Cecilio Ball Other [employer] Other 07-10-2023 14:45-0500 Respiratory rate 20 /min Cecilio Ball Other [employer] Other 07-10-2023 14:45-0500 Systolic blood pressure 150 mm[Hg] Cecilio Ball Other [employer] Other 06-20-2023 08:30-0400 Body height 167.64 cm Cecilio Ball Other [employer] Other 06-20-2023 08:30-0400 Body mass index (BMI) [Ratio] 29.6 kg/m2 Cecilio Ball Other [employer] Other 06-20-2023 08:30-0400 Body weight 83.19 kg Cecilio Ball Other [employer] Other 06-20-2023 08:30-0400 Diastolic blood pressure 76 mm[Hg] Cecilio Ball Other [employer] Other 06-20-2023 08:30-0400 Respiratory rate 20 /min Cecilio Ball Other [employer] Other 06-20-2023 08:30-0400 Systolic blood pressure 157 mm[Hg] Cecilio Ball Other [employer] Other 05-30-2023 13:45-0400 Body height 167.64 cm Cecilio Ball Other [employer] Other 05-30-2023 13:45-0400 Body mass index (BMI) [Ratio] 28.95 kg/m2 Cecilio Ball Other [employer] Other 05-30-2023 13:45-0400 Body weight 81.38 kg Cecilio Ball Other [employer] Other 05-30-2023 13:45-0400 Diastolic blood pressure 78 mm[Hg] Cecilio Ball Other [employer] Other 05-30-2023 13:45-0400 Respiratory rate 16 /min Cecilio Ball Other [employer] Other 05-30-2023 13:45-0400 Systolic blood pressure 158 mm[Hg] Cecilio Ball Other [employer] Other 02-14-2023 08:30-0400 Body height 167.64 cm Cecilio Ball Other [employer] Other 02-14-2023 08:30-0400 Body mass index (BMI) [Ratio] 28.57 kg/m2 Cecilio Ball Other [employer] Other 02-14-2023 08:30-0400 Body weight 80.29 kg Cecilio Ball Other [employer] Other 02-14-2023 08:30-0400 Diastolic blood pressure 80 mm[Hg] Cecilio Ball Other [employer] Other 02-14-2023 08:30-0400 Respiratory rate 16 /min Cecilio Ball Other [employer] Other 02-14-2023 08:30-0400 Systolic blood pressure 135 mm[Hg] Cecilio Ball Other [employer] Other 02-01-2023 08:15-0400 Body height 167.64 cm Jose Enrique Landersisle II Other [employer] Other 02-01-2023 08:15-0400 Body mass index (BMI) [Ratio] 27.44 kg/m2 Jose Enrique Landersisle II Other [employer] Other 02-01-2023 08:15-0400 Body weight 77.11 kg Jose Enrique Landersisle II Other [employer] Other 12-11-2022 10:30-0400 Body height 167.64 cm Cecilio Ball Other [employer] Other 12-11-2022 10:30-0400 Body mass index (BMI) [Ratio] 28.66 kg/m2 Cecilio Ball Other [employer] Other 12-11-2022 10:30-0400 Body weight 80.56 kg Cecilio Ball Other [employer] Other 12-11-2022 10:30-0400 Diastolic blood pressure 76 mm[Hg] Cecilio Ball Other [employer] Other 12-11-2022 10:30-0400 Respiratory rate 12 /min Cecilio Ball Other [employer] Other 12-11-2022 10:30-0400 Systolic blood pressure 151 mm[Hg] Cecilio Ball Other [employer] Other 11-09-2022 16:00-0400 Body mass index (BMI) [Ratio] 29.21 kg/m2 Jose Enrique Leblanc II Other [employer] Other 11-09-2022 16:00-0400 Body weight 82.1 kg Jose Enrique Guerrerole II Other [employer] Other 11-09-2022 10:30-0400 Body height 167.64 cm Cecilio Ball Other [employer] Other 11-09-2022 10:30-0400 Body mass index (BMI) [Ratio] 29.23 kg/m2 Cecilio Ball Other [employer] Other 11-09-2022 10:30-0400 Body weight 82.15 kg Cecilio Ball Other [employer] Other 11-09-2022 10:30-0400 Diastolic blood pressure 79 mm[Hg] Cecilio Ball Other [employer] Other 11-09-2022 10:30-0400 Respiratory rate 20 /min Cecilio Ball Other [employer] Other 11-09-2022 10:30-0400 Systolic blood pressure 152 mm[Hg] Cecilio Ball Other [employer] Other 10-12-2022 10:00-0500 Body height 167.64 cm Cecilio Ball Other [employer] Other 10-12-2022 10:00-0500 Body mass index (BMI) [Ratio] 29.24 kg/m2 Cecilio Ball Other [employer] Other 10-12-2022 10:00-0500 Body weight 82.19 kg Cecilio [employer] Other [employer] Other 10-12-2022 10:00-0500 Diastolic blood pressure 70 mm[Hg] Cecilio [employer] Other [employer] Other 10-12-2022 10:00-0500 Respiratory rate 12 /min Cecilio [employer] Other [employer] Other 10-12-2022 10:00-0500 Systolic blood pressure 102 mm[Hg] [employer] Other [employer] Other Encounters Encounter Date Encounter Type Care Provider Facility Start: 01-29-2025 End: 01-29-2025 ambulatory [facility] Work Phone: Start: 01-29-2025 End: 01-29-2025 [facility] Work Phone: Start: 01-20-2025 End: 01-20-2025 ambulatory [facility] Work Phone: Start: 01-20-2025 End: 01-20-2025 [facility] Work Phone: Start: 01-05-2025 End: 01-05-2025 ambulatory Maddie Villalobos MD Facility: [facility] Start: 12-09-2024 End: 12-09-2024 ambulatory [facility] Work Phone: Start: 12-09-2024 End: 12-09-2024 Patient encounter [facility] Work Phone: Start: 12-05-2024 Non-patient / Non-visit [facility] [employer] Work Phone: Start: 11-17-2024 End: 11-17-2024 ambulatory Andbeto Villalobos MD Facility:[facility] [place] Start: 11-06-2024 End: 11-06-2024 ambulatory [facility] Work Phone: Start: 11-06-2024 End: 11-06-2024 [facility] Work Phone: Start: 10-01-2024 End: 10-01-2024 ambulatory [facility] Work Phone: Start: 10-01-2024 End: 10-01-2024 [facility] encounter [facility] Work Phone: Start: 08-18-2024 End: 08-18-2024 ambulatory Maddie Villalobos MD Facility:[facility] [place] Start: 08-04-2024 End: 08-04-2024 ambulatory Andbeto Villalobos MD Facility:[facility] [place] Start: 07-14-2024 End: 07-14-2024 ambulatory Andbeto Bermanautherlinda Villalobos MD Facility:[facility] [place] Start: 05-28-2024 End: 05-28-2024 ambulatory [facility] Work Phone: Start: 05-28-2024 End: 05-28-2024 [facility] Work Phone: Start: 05-26-2024 End: 05-26-2024 ambulatory Andbeto Shinytautherlinda Villalobos MD Facility:[facility] [place] Start: 04-07-2024 End: 04-07-2024 ambulatory Andrius Wai Villalobos MD Facility:[facility] [place] Start: 03-31-2024 End: 03-31-2024 ambulatory Andrius Kipytautherlinda Salteritis Facility:[facility] [place] Start: 03-24-2024 End: 03-24-2024 ambulatory Andrius Wai Salteritis Facility:[facility] [place] Start: 03-10-2024 End: 03-10-2024 ambulatory Maddie Villalobos MD Facility:[facility] [place] Start: 02-25-2024 End: 02-25-2024 ambulatory Maddie Villalobos MD Facility:[facility] [place] Start: 02-11-2024 End: 02-11-2024 ambulatory Maddie Villalobos MD Facility:[facility] Start: 01-28-2024 End: 01-28-2024 ambulatory Maddie Villalobos MD Facility: [place] Start: 01-22-2024 End: 01-22-2024 ambulatory [facility] Work Phone: Start: 01-22-2024 End: 01-22-2024 [facility] Work Phone: Start: 10-30-2023 Non-patient / Non-visit [facility] [employer] Work Phone: Start: 09-28-2023 End: 09-28-2023 ambulatory Cecilio Benjamin Other [employer] Other Start: 09-28-2023 Office outpatient vi sit 15 minutes Cecilio Ball [facility] Start: 09-28-2023 Telephone encounter Cecilio Benjamin [facility] Start: 09-21-2023 End: 09-21-2023 ambulatory Cecilio Benjamin Other [employer] Other Start: 09-21-2023 Telephone encounter Cecilio Ball [facility] Start: 09-11-2023 End: 09-11-2023 ambulatory Cecilio Ball Other [employer] Other Start: 09-11-2023 Office outpatient vi sit 15 minutes Cecilio Ball [facility] Start: 09-11-2023 Telephone encounter Cecilio Ball [facility] Start: 09-03-2023 End: 09-03-2023 ambulatory Cecilio Ball Other [employer] Other Start: 09-03-2023 Telephone encounter Cecilio Ball [facility] Start: 08-03-2023 End: 08-03-2023 ambulatory Cecilio Ball Other [employer] Other Start: 08-03-2023 Telephone encounter Cecilio Ball [facility] Start: 08-01-2023 End: 08-01-2023 ambulatory Cecilio Ball Other [employer] Other Start: 08-01-2023 Office outpatient vi sit 15 minutes Cecilio Ball [facility] Start: 07-17-2023 End: 07-17-2023 ambulatory Cecilio Ball Other [employer] Other Start: 07-17-2023 Office outpatient vi sit 15 minutes Cecilio Ball [facility] Start: 07-10-2023 End: 07-10-2023 ambulatory Cecilio Ball Other [employer] Other Start: 07-10-2023 Office outpatient vi sit 15 minutes Cecilio Ball [facility] Start: 06-20-2023 End: 06-20-2023 ambulatory Cecilio Ball Other [employer] Other Start: 06-20-2023 Office outpatient vi sit 25 minutes Cecilio Ball [facility] Start: 06-15-2023 End: 06-15-2023 ambulatory Cecilio Ball Other [employer] Other Start: 06-15-2023 Telephone encounter Cecilio Ball [facility] Start: 05-30-2023 End: 05-30-2023 ambulatory Cecilio Ball Other [employer] Other Start: 05-30-2023 Office outpatient vi sit 15 minutes Cecilio Ball [facility] Start: 03-20-2023 Telephone encounter David Jaeger DO Work Phone: [facility] Comment on above: Follow Up Phone Call Start: 03-15-2023 End: 03-15-2023 ambulatory DAVID JAEGER Facility:[facility] Start: 02-27-2023 Orders Only David Sis Donald tobar DO Work Phone: Procedures Comment on above: Pseudoclaudication s yndrome (Primary Dx); Lumbar radiculopathy Start: 02-26-2023 Telephone encounter David Sis Faheem DO Work Phone: [facility] Comment on above: Procedure Start: 02-19-2023 Telephone encounter David Sis Jaeger DO Work Phone: [facility] Comment on above: Appointment Start: 02-14-2023 End: 02-14-2023 ambulatory Cecilio Benjamin Other [employer] Other Start: 02-14-2023 Patient encounter procedure Cecilio Benjamin [facility] Start: 02-13-2023 End: 02-13-2023 ambulatory Cecilio Benjamin Other [employer] Other Start: 02-13-2023 Telephone encounter Cecilio DENISE [facility] Start: 02-08-2023 End: 02-08-2023 ambulatory Cecilio Sourav Other [employer] Other Start: 02-08-2023 Telephone encounter Cecilio DENISE [facility] Start: 02-01-2023 End: 02-01-2023 ambulatory Jose Enrique Leblanc II Other [employer] Other Start: 02-01-2023 Office outpatient vi sit 25 minutes Jose Enrique [place] II [facility] Start: 12-11-2022 End: 12-11-2022 ambulatory Cecilio Benjamin Other [employer] Other Start: 12-11-2022 Office outpatient vi sit 15 minutes Cecilio Benjamin [facility] Start: 11-09-2022 End: 11-09-2022 ambulatory Jose Enrique Leblanc II Facility:[facility] Start: 11-09-2022 End: 11-09-2022 Patient encounter procedure MD Jose Enrique Leblanc II Work Phone: [facility] Start: 11-09-2022 End: 11-09-2022 ambulatory MD Jose Enrique Leblanc II Work Phone: [facility] Work Phone: Start: 11-09-2022 Office outpatient ne w 45 minutes Jose Enrique Leblanc II [facility] Start: 11-09-2022 Office outpatient vi sit 15 minutes Cecilio Benjamin [facility] Start: 11-05-2022 End: 11-05-[address] CECILIO BENJAMIN Facility:[facility] Start: 10-12-2022 End: 10-12-2022 ambulatory Cecilio Benjamin Other [employer] Other Start: 10-12-2022 Office outpatient vi sit 25 minutes Cecilio Benjamin [facility] Start: 09-27-2022 End: 09-27-2022 ambulatory Cecilio Benjamin Other [employer] Other Start: 09-27-2022 Telephone encounter Cecilio DENISE [facility] Start: 09-26-2022 End: 09-27-[address] CECILIO BENJAMIN Facility:[facility] Start: 08-25-2022 End: 08-25-2022 ambulatory Cecilio Benjamin Other [employer] Other Start: 08-25-2022 Telephone encounter Cecilio DENISE [facility] Start: 08-10-2022 End: 08-10-[address] CECILIO BENJAMIN Facility:[facility] Start: 02-09-2022 End: 02-10-[address] CECILIO BENJAMIN Facility:[facility] Start: 12-06-2021 End: 12-07-[address] CECILIO BENJAMIN Facility:[facility] Start: 01-22-2018 End: 04-20-2018 Patient encounter [id number] AUGUSTINE BENJAMIN [facility] Date Procedure Procedure Detail Performing Clinician Start: 11-09-2022 Pelvis X-ray MD Jose Enrique Leblanc II Work Phone: Start: 11-09-2022 Radiologic examinati on of knee MD Jose Enrique Leblanc II Work Phone: Plan of Treatment Date Care Activity Detail Author Start: 01-22-2024 Patient referral [facility] Work Phone: Start: 04-20-2023 Influenza vaccination INFLUENZA (#1) [facility] Start: 10-01-2022 COVID-19 VACCINE (5 - Moderna series) COVID-19 VACCINE (5 - Moderna series) [facility] Start: 08-20-2022 ADVANCE DIRECTIVE DISCUSSION ADVANCE DIRECTIVE DISCUSSION [facility] Start: 08-20-2022 DEPRESSION ASSESSMENT DEPRESSION ASS ESSMENT [facility] Start: 09-19-2021 COVID-19 VACCINE (4 - Booster for Moderna series) COVID-19 VACCINE (4 - Booster for Moderna series) [facility] Start: 09-19-2021 COVID-19 VACCINE (4 - Moderna series) COVID-19 VACCINE (4 - Moderna series) [facility] Start: 01-02-2021 DIABETES SCREEN DIABETES SCREEN [facility] Start: 1991 SHINGRIX VACCINE (1 of 2) SHINGRIX VACCINE (1 of 2) [facility] Start: 1960 Urine microalbumin profile DTAP,TDAP,TD (1 - Tdap) [facility] Start: 1959 SPIROMETRY SPIROMETRY [facility] Start: 1947 PNEUMOCOCCAL: 65+ (1 - PCV) PNEUMOCOCCAL: 65+ (1 - PCV) [facility] Comprehensive metabo lic 2000 panel - Serum or Plasma [facility] Patient referral [facility] Work Phone: SPINE INTERVENTION PROCEDURE SPINE INTERVENTION PROCEDURE Procedures Routine Spinal stenosis, lumbar region with neurogenic claudication Lumbar radiculopathy, chronic Ordered: 02/19/2023 [facility] Work Phone: Comment on above: Ordered: 02/19/2023 XR Wrist - left GE 3 Views [facility] [place] [facility] Immunizations Immunization Date Immunization Notes Care Provider Fa cility 05-28-2024 influenza, high dose seasonal, preservative-free [facility] 05-30-2023 COVID-19 Vaccine Moderna - Documentation Purposes Only Cecilio Benjamin Other [facility] 05-30-2023 influenza virus vaccine, unspecified formulation [facility] 05-30-2023 influenza, high dose seasonal, preservative-free Cecilio Benjamin Other [facility] [employer] Other 06-13-2022 influenza virus vaccine, split virus (incl. purified surface antigen) Cecilio Benjamin Other [facility] [employer] Other 06-13-2022 influenza virus vaccine, unspecified formulation [facility] 06-13-2022 influenza, high dose seasonal, preservative-free Jose Enrique Pawnee II Other [facility] [employer] Other 05-31-2022 COVID-19 Pfizer (bivalent) Jose Enrique Pawnee II Other [facility] 05-31-2022 COVID-19 Pfizer (Pediatric) Cecilio Benjamin Other [facility] 07-25-2021 COVID-19 Vaccine Moderna - Documentation Purposes Only Jose Enrique Pawnee II Other [facility] 05-03-2021 zoster vaccine recombinant Josee Nrique Benji II Other [facility] 05-03-2021 zoster vaccine, live Benjami n Ball Other [facility] 01-28-2021 zoster vaccine recombinant Jose Enrique Pawnee II Other [facility] 01-28-2021 zoster vaccine, live Benjami n Ball Other [facility] 10-25-2020 COVID-19 Vaccine Moderna - Documentation Purposes Only Jose Enrique Benji II Other [facility] 09-27-2020 COVID-19 Vaccine Moderna - Documentation Purposes Only Jose Enrique Pawnee II Other [facility] 05-24-2020 influenza virus vaccine, split virus (incl. purified surface antigen) Cecilio Benjamin Other [facility] [employer] Other 05-24-2020 influenza virus vaccine, unspecified formulation [facility] 01-03-2019 diphtheria, tetanus toxoids and acellular pertussis vaccine, unspecified formulation Cecilio Benjamin Other [facility] 12-25-2018 pneumococcal polysaccharide vaccine, 23 valent Jose Enrique Pawnee II Other [facility] 04-30-2018 influenza virus vaccine, split virus (incl. purified surface antigen) Cecilio Benjamin Other [facility] [employer] Other 04-30-2018 influenza virus vaccine, unspecified formulation [facility] 04-09-2017 influenza virus vaccine, split virus (incl. purified surface antigen) Cecilio Benjamin Other [facility] [employer] Other 04-09-2017 influenza virus vaccine, unspecified formulation [facility] 05-31-2016 zoster vaccine, live Jose Enrique Benji II Other [facility] 05-13-2016 influenza virus vaccine, split virus (incl. purified surface antigen) Cecilio Benjamin Other [facility] [employer] Other 05-13-2016 influenza virus vaccine, unspecified formulation [facility] 05-09-2015 influenza virus vaccine, split virus (incl. purified surface antigen) Cecilio Benjamin Other [facility] [employer] Other 05-09-2015 influenza virus vaccine, unspecified formulation [facility] 03-06-2015 pneumococcal conjuga te vaccine, 13 valent Jose Enrique Pawnee II Other [facility] 05-07-2014 tetanus and diphther ia toxoids, adsorbed, preservative free, for adult use (5 Lf of tetanus toxoid and 2 Lf of diphtheria toxoid) Cecilio Benjamin Other [facility] 04-23-2013 tetanus and diphther ia toxoids, adsorbed, preservative free, for adult use (5 Lf of tetanus toxoid and 2 Lf of diphtheria toxoid) Cecilio Sourav Other [facility] 08-21-2012 pneumococcal polysaccharide vaccine, 23 valent Cecilio Benjamin Other [facility] 12-12-2011 zoster vaccine, live Jose Enrique Benji II Other [facility] Payers Date Payer Category Payer Self-pay 2022 Unknown [id number] 2018 Medicare [id number] 2006 Medicare [id number] 2006 Unknown [id number] 1959 Medicare [id number] 2.1 [id number] 1959 Unknown [id number] 2.16. [id number] 1941 Unknown [id number] 2.16.84 0.1.386560.3.579.2.593 1941 Unknown [id number] 2.16.84 0.1.638136.3.579.2.593 1941 Unknown [id number] 2.16.84 0.1.813859.3.579.2.593 1941 Unknown [id number] 2.16.84 0.1.029013.3.579.2.593 1941 Unknown [id number] 2.16.84 0.1.842437.3.579.2.593 1941 Unknown [id number] 2.16. 840.1.570060.3.579.2.196 1941 Unknown [id number] 2.16. 840.1.088649.3.579.2.196 1941 Unknown [id number] 2.16. 840.1.721684.3.579.2.196 1941 Unknown [id number] 2.16. 840.1.963885.3.579.2.196 1941 Unknown [id number] 2.16. 840.1.805079.3.579.2.196 1941 Unknown [id number] 2.16. 840.1.701695.3.579.2.196 1941 Unknown [id number] 2.16. 840.1.030697.3.579.2.196 1941 Unknown [id number] 2.16. 840.1.693322.3.579.2.196 1941 Unknown [id number] 2.16. 840.1.832793.3.579.2.196 1941 Unknown [id number] 2.16. 840.1.016084.3.579.2.196 1941 Unknown [id number] 2.16. 840.1.206997.3.579.2.196 1941 Unknown [id number] 2.16. 840.1.811359.3.579.2.196 1941 Unknown [id number] 2.16. 840.1.637821.3.579.2.196 Unknown [id number] 2.16.8 40.1.949039.3.579.2.531 Social History Date Type Detail Facility Start: 05-09-2021 End: 03-15-2023 Sex Assigned At [facility] Start: 1940 Sex Assigned At Male F [facility] Start: 06-13-2017 End: 01-22-2024 Tobacco smoking status NHIS Never smoked tobacco [facility] Start: 06-13-2017 Tobacco use and exposure Smokeless tobacco non-user [facility] Start: 05-09-2021 Alcohol intake Current drinke r of alcohol (finding) [facility] Start: 12-11-2017 Alcohol Comment Katie[employer] in coffee C [facility] Start: 1940 Sex Assigned At Not on file C [facility] Start: 05-09-2021 End: 03-15-2023 History of Social function [facility] Adult Depression Screening Assessment 1 [facility] Start: 10-01-2024 End: 01-20-2025 Sex Male (finding) [facility] Medical Equipment Procedure Code Equipment Code Equipment Origin al Text Equipment Identifier Dates Ex[employer]ior Swivelock Tenodesis 8mm Biocomposite 19.5mm Suture Fork Eyelet - [id number] Start: 06-29-2017 Sleeve V40 +0mm Offset Guin Taper Titanium Adapter Hip - [id number] Start: 01-01-2018 Screw Trident Secur-Fit Torx 6.5mm Titanium 20mm Bone Sterile Acetabular - [id number] Start: 01-01-2018 Clinical Notes 08-25-2022 to 11-06-2024 Note Date & Type Note Facility 11-06-2024 Evaluation note Diagnosis Onset Date Resolution Chronic obstructive pulmonary disease with (acute) lower respiratory infection noneactive October 8:56am Acute exacerbation of chronic obstructive airways disease noneactive November 06, 2024 8:56am Benign prostatic hyperplasia with lower urinary tract symptoms acute November 3:30pm Chronic kidney disease, stage 3a acute December 09, 2024 3:30pm Hypertension acute December 09, 2024 3:30pm IFG (impaired fasting glucose) acute December 09, 2024 3:30pm Lumbar spondylolysis acute Apri l 2024 3:30pm Nonfamilial nocturnal leg cramps acute December 09, 2024 3:30pm Obstructive sleep apnea acute A pril 2024 3:30pm Chronic obstructive pulmonary disease with (acute) lower respiratory infection noneactive November 3:30pm Acute exacerbation of chronic obstructive airways disease noneactive December 09, 2024 3:30pm Acute exacerbation of chronic obstructive airways disease acute January 20, 2025 10:43am Chronic kidney disease, stage 3a acute January 20, 2025 10:43am Contusion of left wrist acute J une 2024 10:43am Hypertension acute January 20 10:43am Left wrist pain acute January 20, 2025 10:43am Obstructive sleep apnea acute J une 2024 10:43am Other fractures of lower end of right radius, initial encounter for closed acute January 29, 2025 8:45am [facility] Work Phone: 1(888) 576-894303-20-2025 Evaluation note* Diagnosis Onset Date Resolution Status Admit Date Chronic obstructive pulmonar y disease with (acute) lower respiratory infection noneactive October 8:56am Acute exacerbation of chroni c obstructive airways disease noneactive 2024 8:56am Benign prostatic hyperplasia with lower [...] 0:43am Contusion of left wrist acute J [facility] 2024 10:43am Hypertension acute January 20 10:43am Left wrist pain acute January 20, 2025 10:43am Obstructive sleep apnea acute J [facility] 2024 10:43am [facility] Work Phone: 1(880) 695-414202-12-2025 Evaluation note* Diagnosis Onset Date Resolution Status Admit Date Chronic bronchitis, simple acute October 01, 2024 8:30am Chronic kidney disease, stag e 3a acute October 01 025 8:30am Generalized anxiety disorder acute October 01, 2024 8:30am Hypertension acute September 8:30am IFG (impaired fasting glucose) acute October 01 025 8:30am Lumbar spondylolysis acute Febr uary 2024 8:30am Obstructive sleep apnea acute F ebruary 2024 8:30am Chronic obstructive pulmonar y disease with (acute) lower respiratory infection noneactive October 8:56am Acute exacerbation of chroni c obstructive airways disease noneactive Justo h 2024 8:56am [facility] Work Phone: 1(602) 870-613802-12-2025 Evaluation note* Diagnosis Onset Date Resolution Status [...] of chroni c obstructive airways disease noneactive Justo h 2024 8:56am Chronic obstructive pulmonar y disease with (acute) lower respiratory infection noneactive November 3:30pm Acute exacerbation of chroni c obstructive airways disease noneactive Apri 2024 3:30pm [facility] Work Phone: 1(212) 737-288602-12-2025 Evaluation note* Diagnosis Onset Date Resolution Status Admit Date Chronic bronchitis, simple acute October 01, 2024 8:30am Chronic kidney disease, stag e 3a acute October 01 025 8:30am Generalized anxiety disorder acute October 01, 2024 8:30am Hypertension acute September 8:30am IFG (impaired fasting glucose) acute October 01, 2024 8:30am Lumbar spondylolysis acute 2024 8:30am Obstructive sleep apnea acute 2024 8:30am [facility] Work Phone: 1(280) 459-106706-04-2024 Evaluation note* Diagnosis Onset Date Resolution Status Chronic bronchitis, simple a cute Chronic kidney disease, stage 3a acute Elevated cholesterol acute Generalized anxiety disorder acute Hypertension acute Lumbar spondylolysis acute Obstructive sleep apnea acut e Medicare annual wellness visit, subsequent noneactive [facility] Work Phone: 1(289) 600-794502-09-2024 Evaluation note* Encounter Date Diagnosis Assessment Notes [...] and clinically improving, no further treatment necessary [facility] Other 02-02-2024 Evaluation note* Encounter Date Diagnosis Assessment Notes Treatment Notes Treatment Clinical Notes Sep, Carotid bruit, unspecified laterality (ICD-10 - R09.89) [facility] Other 01-23-2024 Evaluation note* Encounter Date Diagnosis [...] tid Initiate Prednisone _update office on Sunday [facility] Other 01-15-2024 Evaluation note* Encounter Date Diagnosis Assessment Notes Treatment Notes Treatment Clinical Notes Aug, JONATHAN (generalized anxiety disorder) (ICD-10 - F41.1) [facility] Other 12-13-2023 Evaluation note* Encounter Date Diagnosis [...] best 2/3 readings w/ goal < 135/85 [facility] Other 11-28-2023 Evaluation note* Encounter Date Diagnosis [...] daily for blisters and ulcerations. Moisturizers daily [facility] Other 11-21-2023 Evaluation note* Encounter Date Diagnosis [...] Call if develop increased pain or erythema [facility] Other 11-01-2023 Evaluation note* Encounter Date Diagnosis [...] use, the patient reduces the risk for ME, CVA, HTN, cardiac dysrhythmias and sudden cardiac [...] very active. No change in medical treatment [facility] Other 10-27-2023 Evaluation note* Encounter Date Diagnosis Assessment Notes Treatment Notes Treatment Clinical Notes May, JONATHAN (generalized anxiety disorder) (ICD-10 - F41.1) [facility] Other 10-11-2023 Evaluation note* Encounter Date Diagnosis [...] They may safely use Tylenol as needed. [facility] Other 08-01-2023 Miscellaneous Notes* Telephone Encounter - Neida Porter MA - 03/20/2023 12:26 PM EDT DATE OF SERVICE: 03/15/2023 PATIENT'S PHONE NUMBERS: [phone] (home) OR [email or web address] PROVIDER: Dr. Jaeger PROCEDURE: Elective Pain Management Procedure Left message on machine Asked pt to call back and speak with the specialty triage nurse with update. Please obtain percentage better and the duration of improvement. Please inquire if there were any problems afterwards. Neida Brink documented [facility] Miscellaneous Notes* Telephone Encounter - Linda [...] okay to take. Advised on location of [address] Pt will receive a follow up call several days after by a steam powerplant supervisor. If you experience any increase in weakness, difficulty walking or significant increase in pain thatlast more than 4 hours, please proceed to the Emergency Room and tell them you had a spine procedure done recently. Additionally, call us and notify us of these symptoms. Please call [phone] if you have any questions. Pt verbalized understanding. documented in this encounterPark[facility]07-03-[facility]23 Miscellaneous Notes* Telephone Encounter - Linda Knox LPN - 02/19/2023 11:57 AM EDT Order approved Spoke to daughter in [facility] to pre procedure instructions. Daughter given scheduling number [phone] Pt must have a bulk driver. Pt advised to arrive 30 min prior to the time given by the central scheduler. Pt advised will also receive a call the day before from the surgery center to confirm date/time. Pt can eat and drink as normal. and Pt can take medications as normal. No alcohol 24 hours prior. Pt is on ASA.- 81 mg okay to take. and must Advised on location of [address] Pt will receive a follow up call several days after by a steam powerplant supervisor. If you experience any increase in weakness, difficulty walking or significant increase in pain thatlast more than 4 hours, please proceed to the Emergency Room and tell them you had a spine procedure done recently. Additionally, call us and notify us of these symptoms. Please call [phone] if you have any questions. Pt verbalized [...] call Celi as patient cannot hear well [phone] Patient has been identified by name and birthdate. Duration of symptoms: N/A Person calling: daughter: Celi Call patient at: N/A [phone] (home) [phone] (cell) Was an appointment scheduled: No Closing statement: Results or non-symptom based questions: Thank you for calling [facility], your call will be returned within the next business day. Camilla Jarrell Pss documented in this encounterPark[facility]06-28-2023 Evaluation note* Encounter Date Diagnosis Assessment [...] use, the patient reduces the risk for ME, CVA, HTN, cardiac dysrhythmias and sudden cardiac [...] (ICD-10 - F41.1) Healthy diet, keep active [facility] Other 06-22-2023 Evaluation note* Encounter Date Diagnosis Assessment Notes Treatment Notes Treatment Clinical Notes Jan, Elevated cholesterol (ICD-10 - E78.00) Jan, Stage 3a chronic kidney disease (ICD-10 - N18.31) Jan, Primary hypertension (ICD-10 - I10) Jan, Screening PSA (prostate specific antigen) (ICD-10 - Z12.5) Jan, High risk medication use (ICD-10 - Z79.899) [facility] Other 06-15-2023 Evaluation note* Encounter Date Diagnosis [...] this time 6. Follow up as needed [facility] Other 04-24-2023 Evaluation note* Encounter Date Diagnosis [...] use of statin, experiencing ADR and stopped [facility] Other 03-23-2023 Evaluation note* Encounter Date Diagnosis [...] - M17.12) Quad exercises, ice/heat and Tylenol [facility] Other 03-23-2023 Evaluation note* Encounter Date Diagnosis [...] injection well. 6. Follow up as needed [facility] Other 02-23-2023 Evaluation note* Encounter Date Diagnosis [...] use, the patient reduces the risk for ME, CVA, HTN, cardiac dysrhythmias and sudden cardiac [...] tract symptoms (ICD-10 - N40.1) Symptoms tolerable [facility] Other 02-08-2023 Evaluation note* Encounter Date Diagnosis Assessment Notes Treatment Notes Treatment Clinical Notes Sep, Elevated cholesterol (ICD-10 - E78.00) Sep, Stenosis of right carotid artery (ICD-10 - I65.21) Sep, Retinal hemorrhage of right eye (ICD-10 - H35.61) [facility] Other 01-06-2023 Evaluation note* Encounter Date Diagnosis Assessment Notes Treatment Notes Treatment Clinical Notes Aug, Carotid bruit, unspecified laterality (ICD-10 - R09.89) [facility] Other Evaluation noteNo assessment information available [facility] Work Phone: Evaluation noteNo InformationNort INTEX Program Other Evaluation note* Diagnosis Spinal stenosis, lumbar region with neurogenic claudication- Primary Lumbar radiculopathy, chronic Thoracic or lumbosacral neuritis or radiculitis, unspecified documented in this encounter [facility]* Diagnosis Pseudoclaudication syndrome- Primary Spinal stenosis, lumbar region, with neurogenic claudication Lumbar radiculopathy Thoracic or lumbosacral neuritis or radiculitis, unspecified Pseudoclaudication syndrome Spinal stenosis, lumbar region, with neurogenic claudication Lumbar radiculopathy Thoracic or lumbosacral neuritis or radiculitis, unspecified documented in this encounter [facility]* Diagnosis Onset Date Resolution Status Chronic bronchitis, simple a cute Chronic kidney disease, stage 3a acute Elevated cholesterol acute Generalized anxiety disorder acute Hypertension acute Lumbar spondylolysis acute Obstructive sleep apnea acut e [facility] Work Phone: History general Narrative - [...] JANELLE 06/2017 Hospitalization History see surgical history [facility] Other Hospital Discharge instructionsAmbulatory Orders* Referral to Pain Management Location: None Selected [facility] Work Phone: Summary Purpose Family History Relationship [...] e airways disease December 09, 2024 3:30pm Chief Complaint Admit Date URI November 06, 2024 8:5 6am ER follow up December 09, 2024 3:3 0pm Wheezing January 20, 2025 10:[address] BENJAMIN LT RADIUS FX WX [facility] January 29, 2025 8:45am Reason for Visit Admit Date Chronic obstructive [...] sleep apnea January 20, 2025 1 0:43am Other fractures of lower end of right radius, initial encounter for closed January 29, 2025 8:45am Chief Complaint Admit Date URI November 06, 2024 8:5 6am ER follow up Angie 22nd, 2025 3:3 0pm Wheezing January 20, 2025 10:43 [...] sleep apnea January 20, 2025 1 0:43am Additional Source Comments (unrecognized sect ion and content) No Status Records FoundNo Status Records FoundNo Status Records FoundNo Status Records FoundNo Status Records FoundNo Status Records FoundNo Status Records Found INFORMATION SOURCE (unrecogn ized section and content) DATE CREATED AUTHOR 02/06/2018 [facility] DATE CREATED AUTHOR AUTHOR'S ORGANIZ ATION 06/10/2018 [facility] DATE CREATED AUTHOR AUTHOR'S ORGANIZ ATION 11/06/2022 [facility] DATE CREATED AUTHOR AUTHOR'S ORGANIZ ATION 12/21/2022 [facility] DATE CREATED AUTHOR AUTHOR'S ORGANIZ ATION 03/15/2023 [facility] DATE CREATED AUTHOR AUTHOR'S ORGANIZ ATION 03/22/2023 [facility] DATE CREATED AUTHOR AUTHOR'S ORGANIZ ATION 01/16/2025 [facility] REASON FOR VISIT (unrecogniz ed section and [...] Enrique Leblanc II, MD Attending Provider Active Healthcare Project Manager Relationship Specialty Start Date End Date Cecilio Benjamin DO PCP - General Internal Medicine 09/04/13 Healthcare Project Manager Relationship Specialty Start Date End Date Cecilio Benjamin DO PCP - General Internal Medicine 09/04/13 Healthcare Project Manager Relationship Specialty Start Date End Date Cecilio Benjamin DO PCP - General Internal Medicine 09/04/13 Healthcare Project Manager Relationship Specialty Start Date End Date [...] Active Start: December 05, 2024 Jerry Gifford , Attending Provider Active S tart: December 05, 2024 Team Status: Inactive Member Role Status Vaughn Benjamin DO Primary Care Provide r, Attending Provider Active Start: December 09, 2024 End: December 09, 2024 Team Status: Inactive Member Role Status Dates Cecilio Benjamin DO Primary Care Provide r, Attending Provider Active Start: January 20, 2025 End: January 20, 2025 Team Status: Inactive Member Role Status Dates Cecilio Benjamin DO Primary Care Provider Active Start: January 29, 2025 End: January 29, 2025 Faheem Sevilla MD Attending Provider Active Star t: January 29, 2025 End: January 29, 2025 Goals (unrecognized section and content) Goals may be documented in a n alternate section Source Comments (unrecognize d section and content) In the event this informatio n is protected by the Federal Confidentiality of Alcohol and Drug Abuse Patient Records regulations: The Federal rules restrict any use of the information to criminally investigate or prosecute any alcohol or drug abuse patient.[facility] HospitalIn the event this information is protected by the Federal Confidentiality of Alcohol and Drug Abuse Patient Records regulations: The Federal rules restrict any use of the information to criminally investigate or prosecute any alcohol or drug abuse patient.[facility] HospitalIn the event this information is protected by the Federal Confidentiality of Alcohol and Drug Abuse Patient Records regulations: The Federal rules restrict any use of the information to criminally investigate or prosecute any alcohol or drug abuse patient.[facility] HospitalIn the event this information is protected by the Federal Confidentiality of Alcohol and Drug Abuse Patient Records regulations: The Federal rules restrict any use of the information to criminally investigate or prosecute any alcohol or drug abuse patient.[facility] FOR RECORDS PERTAINING TO PATIENTS WHO [...] BE BASED ON THE PRIMARY CLINICAL RECORDS. [facility] [employer] [facility]. provides no warranty or guarantee of the accuracy or completeness of information in this document.
== END 2025-02-05 09:01 | disposition home or self-care (01) ==
LOC: PM 13:44
PROVIDERS: PCP Internal Medicine; Visit Provider Nurse Practitioner
DX: M47.816 Spondylosis without myelopathy or radiculopathy, lumbar region (principal); M48.062 Spinal stenosis, lumbar region with neurogenic claudication; M46.1 Sacroiliitis, not elsewhere classified
CPT/HCPCS: G0463

== ENCOUNTER 2025-02-18 08:11 | Outpatient (OUT) | payer MEDICARE, OTHER, SELFPAY ==
[2025-02-18 08:47] LABS: Hematocrit 42.5 % (42.0-54.0); Hemoglobin 15.1 g/dL (14.0-18.0); Immature Granulocytes Abs Auto 0.05 10^3/uL (0.00-0.03); Immature Granulocytes Pct Auto 0.8 % (0.0-0.5); Lymphocytes Absolute Auto 1.5 10^3/uL (1.2-3.8); Mean Corpuscular HGB Conc 35.5 g/dL (29.9-35.2); Mean Corpuscular Hemoglobin 33.3 pg (25.9-34.0); Mean Corpuscular Volume 93.8 fL (80.0-94.0); Platelet Count 147 10^3/uL (150-450); Red Blood Count 4.53 10^6/uL (4.70-6.10); White Blood Count 6.5 10^3/uL (4.0-11.0)
[2025-02-18 09:16] LABS: Alanine Aminotransferase 24 U/L (16-63); Albumin Globulin Ratio 1.1; Albumin Level 3.6 g/dL (3.4-5.0); Alkaline Phosphatase 59 U/L (46-116); Anion Gap 11.9; Aspartate Amino Transferase 18 U/L (15-37); Blood Urea Nitrogen 22.0 mg/dL (7.0-18.0); Calcium 9.0 mg/dL (8.5-10.1); Carbon Dioxide 29.6 mmol/L (21.0-32.0); Chloride 104 mmol/L (98-107); Cholesterol 209 mg/dL (<=200); Estimated GFR (African America >60 (>=60 mL/min/1.73m^2); Estimated GFR (Non-African Ame 53 (>=60 mL/min/1.73m^2); Globulin 3.2 g/dL; Glucose 90 mg/dL (74-106); HDL Cholesterol 55 mg/dL (40-60); Potassium 4.5 mmol/L (3.5-5.1); Sodium 141 mmol/L (136-145); Thyroid Stimulating Hormone 1.229 uIU/mL (0.358-3.740); Total Protein 6.8 g/dL (6.4-8.2); Triglycerides 80 mg/dL (<=150); VLDL CHOLESTEROL 16.0 mg/dL
== END 2025-02-18 08:12 | disposition home or self-care (01) ==
LOC: LAB 08:14
PROVIDERS: PCP Internal Medicine; Visit Provider Internal Medicine
DX: R73.01 Impaired fasting glucose (principal); N18.31 Chronic kidney disease, stage 3a; E78.00 Pure hypercholesterolemia, unspecified; Z12.5 Encounter for screening for malignant neoplasm of prostate; R53.83 Other fatigue; I35.0 Nonrheumatic aortic (valve) stenosis; R06.09 Other forms of dyspnea; J41.0 Simple chronic bronchitis; R09.89 Other specified symptoms and signs involving the circulatory and respiratory systems; I12.9 Hypertensive chronic kidney disease with stage 1 through stage 4 chronic kidney disease, or unspecified chronic kidney disease
CPT/HCPCS: 36415; 80053; 80061; 84443; 85025; G0103

== ENCOUNTER 2025-02-25 13:24 | Outpatient (OUT) | payer MEDICARE, OTHER, SELFPAY | END 2025-02-25 13:25 | disposition home or self-care (01) | LOC: CARD 13:24 | PROVIDERS: PCP Internal Medicine; Visit Provider Internal Medicine | DX: J41.0 Simple chronic bronchitis (principal); R06.09 Other forms of dyspnea; R09.89 Other specified symptoms and signs involving the circulatory and respiratory systems | CPT/HCPCS: 93880 ==

== ENCOUNTER 2025-03-11 08:41 | Outpatient (OUT) | payer MEDICARE, OTHER, SELFPAY ==
--- OUTSIDE RECORDS SUMMARY | 2025-03-11 08:44 | XMS_ITS | Clinical Summary ---
Author Organization [facility] tem Address [facility] [id number] [address] [place] [address] Care Team Providers Care Household Refrigerator Mechanic Name Role Phone Cecilio Benjamin DO Primary Care Provider [phone] Allergies Active Allergy Reactions Criticality Noted Date [...] Medical Devices Not on file Insurance MEDICARE [place] [employer] Care Teams Household Refrigerator Mechanic Relationship Specialty Start Date End Date Cecilio Benjamin DO [address] [place] [id number] PCP - General 12/20/16
--- OUTSIDE RECORDS SUMMARY | 2025-03-11 08:44 | XMS_ITS | Clinical Summary ---
Author Organization [facility] Address [facility] [place] [address] Care Team Providers Care Afternoon Nanny Name Role Phone Cecilio Benjamin DO Primary Care Provider [phone] Allergies Active Allergy Reactions Criticality Noted Date [...] (10/30/2017): Added automatically from request for surgery [id number] Complete tear of right rotator cuff 05/17/2017 Overview (05/17/2017): Added automatically from request for surgery [id number] Incomplete tear of right rotator cuff 01/11/2017 [...] is lower risk 4 03/15/2023 Data from: https://www.neighborhoodatlas.[facility]/. Last address used for calculation [...] exists Advance Directive Discussion 08/20/2024 Influenza Vaccine (#1) 2025 2, 05/02/2019, 04/30/2018, Additional history exists DTaP,Tdap,Td Vaccine (2 - Td or Tdap) 01/03/2029 01/03/2019 Pneumococcal Vaccine: 50+ Completed 2018, 08/30/2016, 03/06/2015 Shingrix Vaccine Completed 05/03/2021, 06/2021, 05/31/2016, Additional history exists Medical Devices Implanted Type Area Group Work Program Aide Device Identifier Shelf Expiration Date Model / Serial / Lot [place] Corkscrew Fiberwire Tigerwire 5.5mm 2 Full Thread Biocomposite 14.7 - [id number] Implanted:Qty: 1 on 06/29/2017 at [facility] [place] Right: Bone - Shoulder [employer] 12/17/2018 [id number] / / [id number] [place] Swivelock Tenodesis 8mm Biocomposite 19.5mm Suture [place] Eyelet - [id number] Implanted:Qty: 1 on 06/29/2017 at [facility] [place] Right: Bone - Shoulder [employer] 06/19/2018 [id number]-8 / / [id number] Shell 56mm E Hemispherical Tritanium Acetabular Primary Rim Cluster Hole - [id number] Implanted:2017 at [facility] (Quantity not on file) Joint - Hip Right: Bone - Hip [employer] 12/04/2022 [id number] / [id number] / [id number] Insert Trident 40mm 0d E X3 Acetabular Hip - [id number] Implanted:2017 at [facility] (Quantity not on file) Joint - Hip Right: Bone - Hip [employer] 06/24/2022 [id number] / [id number] / [id number] Head 40mm [place] Biolox Delta Tritanium Femoral Hip - [id number] Implanted:2017 at [facility] (Quantity not on file) Joint - Hip Right: Bone - Hip [employer] 09/26/2022 [id number] / / [id number] Stem Accolade Ii 6 132d Femoral - [id number] Implanted:2017 at [facility] (Quantity not on file) Joint - Hip Right: Bone - Hip [employer] 07/29/2022 [id number] / [id number] / [id number] Sleeve V40 +0mm Offset [place] Taper Titanium Adapter Hip - [id number] Implanted:2017 at [facility] (Quantity not on file) Joint - Hip Right: Bone - Hip [employer] 08/28/2022 [id number] / / [id number] Screw Trident Secur-Fit Torx 6.5mm Titanium 20mm Bone Sterile Acetabular - [id number] Implanted:2017 at [facility] (Quantity not on file) Screw Right: Bone - Hip [employer] 11/11/2022 [id number] / [id number] / [id number] Procedures Procedure Name Priority Date/Time Associated Diagnosis Comments BASIC METABOLIC PANEL (EU,FV,HL,NATALI,MM,SP) SHAJI 01/02/2018 4:32 AM EDT from Last 3 Months or Most Recently Relevant to Health Maintenance Results * (ABNORMAL) BASIC METABOLIC PANEL (AK,AV,EU,FV,HL,NATALI,MM,SP) (01/02/2018 4:32 AM EDT) Glucose 130(H) 74 - 99 mg/dL 01/02/2018 6:30 AM EDT [facility] Comment: The [place] Diabetes Association (ADA) provides guidance for cutoff [...] Standards of Medical Care in Diabetes 2016, [place] Diabetes Association. Diabetes Care. 2016.39(Suppl 1). BUN 20 9 - 24 mg/dL 01/02/2018 6:30 AM [facility] Creatinine 1.22 0.73 - 1.22 mg/dL 01/02/2018 6:30 AM [facility] Sodium 140 136 - 144 mmol/L 01/02/2018 6:30 AM [facility] Potassium 4.4 3.7 - 5.1 mmol/L 01/02/2018 6:30 AM [facility] Chloride 102 97 - 105 mmol/L 01/02/2018 6:30 AM [facility] CO2 27 22 - 30 mmol/L 01/02/2018 6:30 AM EDT [facility] Anion Gap 11 9 - 18 mmol/L 01/02/2018 6:30 AM T [facility] Calcium 8.1(L) 8.6 - 10.0 mg/dL 01/02/2018 6:30 AM EDT [facility] eGFR- >60 01/02/2018 6:30 AM EDT [facility] eGFR-All Other Races 58 . 01/02/2018 6:30 AM EDT [facility] Comment: eGFR (Estimated GFR) Units [...] Sutherland PA-C LABORATORY REG[facility]AL Final Re sult [facility] [address] [facility] [place] [address], from Last 3 Months or Most Recently Relevant to Health Maintenance Insurance MEDICARE [employer] [place] Care Teams Afternoon Nanny Relationship Specialty Start Date End Date Cecilio Benjamin DO PCP - General Internal Medicine 09/04/13
--- OUTSIDE RECORDS SUMMARY | 2025-03-11 08:44 | XMS_ITS | Clinical Summary ---
Author Organization [facility] Address [address] [place] [address] Care Team Providers Care Balancing Machine Set Up Worker Name Role Phone Unavailable Primary Care Provider [...]
--- NOTE | 2025-03-11 08:46 | CA_ITS ---
Patient Name: NEISHA MITCHELL MR#: [id number] : 1940 Exam Date: 03/11/2025 Ordering Doctor: DR SARA TAYLOR D.O. ECHOCARDIOGRAM REPORT PROCEDURE: CA ECHO DOPPLER COMPLETE INDICATIONS: Aortic valve sstenosis COMPARISON: None. DESCRIPTION: COMPLETE ECHOCARDIOGRAM Real-time transthoracic echocardiography with 2D, M-mode, spectral and color flow Doppler performed. QUALITY: Technical quality was good. LEFT VENTRICLE: Normal chamber size. Mild concentric left ventricular hypertrophy. Normal systolic function. LV EF: Estimated left ventricular ejection fraction is normal at 65%. DIASTOLIC: ATRIAL SEPTUM: LEFT ATRIUM: Normal chamber size. RIGHT ATRIUM: Normal chamber size. RIGHT VENTRICLE: Normal chamber size. Normal right ventricular systolic function. TRICUSPID VALVE: Normal mobility and thickness. No stenosis with mild regurgitation. No evidence of pulmonary hypertension. RVSP 33 mmHg MITRAL VALVE: Normal mobility and thickness. No evidence of mitral valve stenosis. There is no mitral annular calcification. Trivial regurgitation. AORTIC VALVE: Normal trileaflet appearance. Mildly calcified aortic valve. Mildly diminished mobility. Doppler velocity suggest mild to moderate aortic valve stenosis. DVI 0.45, ESTEPHANIE 1.2cm2, Vmax 2.34 m/s, Peak/mean gradients 23/12 mmHg. Mild aortic regurgitation. AORTIC ROOT: Normal diameter and appearance, measuring 3.1 cm. The ascending aorta is normal in size measuring 3.2 cm. PULMONIC VALVE: Normal thickness and mobility. No stenosis. No regurgitation. PERICARDIUM: No evidence of pericardial effusion. IVC: Collapses with inspiration. Normal size. PLEURA: CONCLUSION: 1. Mild concentric left ventricular hypertrophy with normal systolic function. Estimated LVEF is 65%. 2. Normal right ventricular size and systolic function. 3. Mildly calcified aortic valve with mild to moderate stenosis and mild regurgitation. 4. Mild tricuspid regurgitation. 5. Normal right-sided pressures. Adult Echocardiography Procedure Report Left Ventricle LVEDD (3.7 - 5.6 cm): 3.69 cm LVESD (2.2 - 4.0 cm): 2.61 cm LVIVS thickness (0.6 - 1.2 cm): 1.19 cm LVPW thickness (0.5 - 1.0 cm): 1.26 cm e': 0.09 m/s E - e': 8.19 LVOT Max Gradient: 3.87 mm[Hg], 4.53 mm[Hg] LVOT Area (cm2): 1.02 m/s Peak Velocity (LVOT): 0.98 m/s, 1.06 m/s Mean Velocity (LVOT): 0.70 m/s LVOT Diameter 1.78 cm Left Ventricular Ejection Fraction: 65 % Left Atrium LA Volume Index (2D A2C): 32.77 ml/m2 Left Atrium Systolic Dimension: 3.44 cm Mitral Valve MV E to A Ratio: 0.73 Mitral Valve A-Wave Peak Velocity: 0.98 m/s Mitral Valve E-Wave Peak Velocity: 0.72 m/s Right Ventricle RV Internal Diastolic Dimension: 3.35 cm Aorta AO Root Diam: 3.15 cm Ascending Ao Diam: 3.18 cm Aortic Valve AoV Area (Peak Perfecto): 1.13 cm2, 1.05 cm2, 1.20 cm2 AoV Area (VTI): 1.15 cm2, 1.15 cm2, 1.17 cm2 Deceleration Kemper: 2.27 m/s2 Pressure Half-Time: 516.00 ms Peak Velocity(Antegrade Flow): 2.34 m/s, 2.22 m/s, 2.25 m/s, 2.23 m/s Peak Gradient(Antegrade Flow): 21.83 mm[Hg], 19.70 mm[Hg], 20.18 mm[Hg], 19.91 mm[Hg] Mean Velocity(Antegrade Flow): 1.59 m/s, 1.50 m/s, 1.44 m/s, 1.58 m/s Mean Gradient(Antegrade Flow): 11.82 mm[Hg], 10.57 mm[Hg], 10.05 mm[Hg], 10.90 mm[Hg] Velocity Time Integral: 55.40 cm, 50.38 cm, 55.24 cm, 52.49 cm Tricuspid Valve Peak Velocity (Regurgitant Flow): 2.42 m/s, 2.43 m/s, 2.74 m/s, 2.69 m/s Pulmonic Valve Mean Gradient: 2.61 mm[Hg], 2.79 mm[Hg] Mean Velocity: 0.77 m/s, 0.79 m/s Peak Velocity: 1.11 m/s Peak Gradient: 4.38 mm[Hg], 5.49 mm[Hg] Right Atrium Right Atrium Systolic Pressure: 49.48 ml, 49.48 ml Dictated by: Justino Montoya M.D. on 03/11/2025 at 18:53 Approved by: Justino Montoya M.D. on 03/11/2025 at 18:58
== END 2025-03-11 08:42 | disposition home or self-care (01) ==
LOC: CARD 08:42
PROVIDERS: PCP Internal Medicine; Visit Provider Internal Medicine
DX: R06.09 Other forms of dyspnea (principal); I35.0 Nonrheumatic aortic (valve) stenosis
CPT/HCPCS: 93306

== ENCOUNTER 2025-03-18 10:44 | Outpatient (OUT) | payer MEDICARE, OTHER, SELFPAY ==
--- OUTSIDE RECORDS SUMMARY | 2025-03-18 10:47 | XMS_ITS | Clinical Summary ---
Author Organization [facility] Address [address] [place] [address] Care Team Providers Care File Clerk Name Role Phone Unavailable Primary Care Provider [...]
--- OUTSIDE RECORDS SUMMARY | 2025-03-18 10:47 | XMS_ITS | Clinical Summary ---
Author Organization [facility] Address [facility] [place] [address] Care Team Providers Care Helper Steel Fabrication Name Role Phone Cecilio Benjamin DO Primary Care Provider [phone] Allergies Active Allergy Reactions Criticality Noted Date [...] (10/30/2017): Added automatically from request for surgery [id number] Complete tear of right rotator cuff 05/17/2017 Overview (05/17/2017): Added automatically from request for surgery [id number] Incomplete tear of right rotator cuff 01/11/2017 [...] is lower risk 4 03/15/2023 Data from: https://www.neighborhoodatlas.[facility]/. Last address used for calculation [address] [...] history exists Medical Devices Implanted Type Area Celery Cutter Device Identifier Shelf Expiration Date Model / Serial / Lot [place] Corkscrew Fiberwire Tigerwire 5.5mm 2 Full Thread Biocomposite 14.7 - [id number] Implanted:Qty: 1 on 06/29/2017 at [facility] [place] Right: Bone - Shoulder [employer] 12/17/2018 [id number] / / [id number] [place] Swivelock Tenodesis 8mm Biocomposite 19.5mm Suture [place] Eyelet - [id number] Implanted:Qty: 1 on 06/29/2017 at [facility] [place] Right: Bone - Shoulder [employer] 06/19/2018 AR-1662BC-8 / / [id number] Shell 56mm E Hemispherical Tritanium Acetabular Primary Rim Cluster Hole - [id number] Implanted:[address] [facility] (Quantity not on file) Joint - Hip Right: Bone - Hip [employer] 12/04/2022 [id number] / [id number] / [id number] Insert Trident 40mm 0d E X3 Acetabular Hip - [id number] Implanted:[address] [facility] (Quantity not on file) Joint - Hip Right: Bone - Hip [employer] 06/24/2022 [id number] / [id number] / [id number] Head 40mm [place] Biolox Delta Tritanium Femoral Hip - [id number] Implanted:[address] [facility] (Quantity not on file) Joint - Hip Right: Bone - Hip [employer] 09/26/2022 [id number] / / [id number] Stem Accolade Ii 6 132d Femoral - [id number] Implanted:[address] [facility] (Quantity not on file) Joint - Hip Right: Bone - Hip [employer] 07/29/2022 [id number] / [id number] / [id number] Sleeve V40 +0mm Offset [place] Taper Titanium Adapter Hip - [id number] Implanted:[address] [facility] (Quantity not on file) Joint - Hip Right: Bone - Hip [employer] 08/28/2022 [id number] / / [id number] Screw Trident Secur-Fit Torx 6.5mm Titanium 20mm Bone Sterile Acetabular - [id number] Implanted:[address] [facility] (Quantity not on file) Screw Right: Bone - Hip [employer] 11/11/2022 [id number] / [id number] / [id number] Procedures Procedure Name Priority Date/Time Associated Diagnosis Comments BASIC METABOLIC PANEL (EU,FV,HL,NATALI,MM,SP) SHAJI 01/02/2018 4:32 AM EDT from Last 3 Months or Most Recently Relevant to Health Maintenance Results * (ABNORMAL) BASIC METABOLIC PANEL (AK,AV,EU,FV,HL,NATALI,MM,SP) (01/02/2018 4:32 AM EDT) Glucose 130(H) 74 - 99 mg/dL 01/02/2018 6:[address] [facility] Comment: The [place] Diabetes Association (ADA) provides guidance for cutoff [...] Standards of Medical Care in Diabetes 2016, [place] Diabetes Association. Diabetes Care. 2016.39(Suppl 1). BUN 20 9 - 24 mg/dL 01/02/2018 6:30 AM [facility] Creatinine 1.22 0.73 - 1.22 mg/dL 01/02/2018 6:30 AM [facility] Sodium 140 136 - 144 mmol/L 01/02/2018 6:30 AM [facility] Potassium 4.4 3.7 - 5.1 mmol/L 01/02/2018 6:30 AM [facility] Chloride 102 97 - 105 mmol/L 01/02/2018 6:30 AM [facility] CO2 27 22 - 30 mmol/L 01/02/2018 6:[address] [facility] Anion Gap 11 9 - 18 mmol/L 01/02/2018 6:[address] [facility] Calcium 8.1(L) 8.6 - 10.0 mg/dL 01/02/2018 6:[address] [facility] eGFR- >60 01/02/2018 6:[address] [facility] eGFR-All Other Races 58 . 01/02/2018 6:[address] [facility] Comment: eGFR (Estimated GFR) Units [...] Sutherland PA-C LABORATORY REGIONAL Final Re sult [facility] [id number] [facility] [place] [address], from Last 3 Months or Most Recently Relevant to Health Maintenance Insurance MED[employer]ARE [place] [employer] Care Teams Helper Steel Fabrication Relationship Specialty Start Date End Date Cecilio Benjamin DO PCP - General Internal Medicine 09/04/13
--- OUTSIDE RECORDS SUMMARY | 2025-03-18 10:47 | XMS_ITS | Clinical Summary ---
Author Organization [facility] [employer] tem Address [id number] [address] [place] [address] Care Team Providers Care Geomatics Professor Name Role Phone Cecilio Benjamin DO Primary Care Provider [phone] Allergies Active Allergy Reactions Criticality Noted Date [...] Medical Devices Not on file Insurance MED[employer]ARE [place] [employer] Care Teams Geomatics Professor Relationship Specialty Start Date End Date Cecilio Benjamin DO [address] [place] [id number] PCP - General 12/20/16
--- NOTE | 2025-03-18 11:09 | PM.CN ---
Consult Note: HPI Data of Consult Patient: known to practice within the last 3 years Requesting Physician: Erica Hope NP Primary Care Provider: Cecilio Benjamin DO Consult Narrative Reason for consult: left buttock pain Narrative: Ruperto Thorpe a pleasant 84 year old male presents for evaluation of severe left buttock pain. hx of sacroiliitis that responds well to sij injections, last injection 06/12 provided >50% improvement greater than 6 months. pt noticing significant increase in pain over the last month without injury, but was on vacation with a lot of walking. pain today 9/10 increasing with standing, walking, activity, and ADLs. pain improved with sitting and lying down. denies numbness tingling weakness to BLE. cc:: CC: Erica Hope NP Review of Systems ROS Musculoskeletal Reports: joint pain; Denies: extremity pain PFSH PFSH Medical History Low back pain ?M54.50 - Low back pain, unspecified (ICD-10) Heartburn ?R12 - Heartburn (ICD-10) Sleep apnea ?G47.30 - Sleep apnea, unspecified (ICD-10) COPD (chronic obstructive pulmonary disease) ?J44.9 - Chronic obstructive pulmonary disease, unspecified (ICD-10) Asthma ?J45.909 - Unspecified asthma, uncomplicated (ICD-10) Hypertension ?I10 - Essential (primary) hypertension (ICD-10) Surgical History H/O cervical spine surgery ?Z98.890 - Other specified postprocedural states (ICD-10) S/P tonsillectomy and adenoidectomy ?Z90.89 - Acquired absence of other organs (ICD-10) History of ankle surgery ?Z98.890 - Other specified postprocedural states (ICD-10) S/P cholecystectomy ?Z90.49 - Acquired absence of other specified parts of digestive tract (ICD-10) S/P total hip arthroplasty ?Z96.649 - Presence of unspecified artificial hip joint (ICD-10) History of surgery on upper extremity ?Z98.890 - Other specified postprocedural states (ICD-10) Social History Little interest or pleasure in doing things: not at all Feeling down, depressed, or hopeless: not at all Meds Home Medications and Allergies Home Medications ?Medication ?Instructions ?Recorded ?Confirmed ?Type amlodipine 2.5 mg tablet 2.5 mg PO DAILY 01/28/24 01/05/25 History clonazepam 0.5 mg tablet 0.5 mg PO DAILY 01/28/24 01/05/25 History escitalopram oxalate 10 mg tablet 10 mg PO DAILY 01/28/24 01/05/25 History (Lexapro) fluticasone propionate 110 1 inh inhalation BID 01/28/24 01/05/25 History mcg/actuation HFA aerosol inhaler nabumetone 500 mg tablet 500 mg PO BID 01/28/24 01/05/25 History omeprazole 20 mg capsule,delayed 20 mg PO DAILY 01/28/24 01/05/25 History release tamsulosin 0.4 mg capsule (Flomax) 0.4 mg PO DAILY 01/28/24 01/05/25 History albuterol sulfate 2.5 mg/3 mL 2.5 mg inhalation Q4H PRN 12/05/24 01/05/25 History (0.083 %) solution for nebulization shortness of breath or wheezing fluticasone 250 mcg-salmeterol 50 1 inh inhalation BID 12/05/24 01/05/25 History mcg/dose blistr powdr for inhalation diazepam 10 mg tablet (Valium) 5 mg PO Q6H PRN sedation 01/05/25 01/05/25 History Allergies Allergy/AdvReac Type Severity Reaction Status Date / Time bacitracin AdvReac Mild Rash Verified 01/05/25 08:14 Exam Constitutional Documenting provider has reviewed patient's vital signs: yes Common normals: no apparent distress, oriented x3, healthy appearing, alert and well nourished General appearance: cooperative HENMA Common normals: normocephalic, hearing grossly normal bilaterally and moist oral mucous membranes Head and scalp: normocephalic Eye Common normals: PERRL Pupil: PERRL Neck & C-Spine Common normals: full ROM General: normal visual inspection Chest Common normals: inspection of chest normal Respiratory Common normals: normal respiratory effort, no retractions and no use of accessory muscles Back & Pelvis Lumbar spine/lower back: ROM not limited, no pain with ROM and no lumbar spinal tenderness Sacroiliac joints: SI joint(s) abnormal Other: left sij positive natasha(patricks), gaenslens, thigh thrust, compression test Neuro Common normals: oriented x3 Sensorium/orientation: alert Psych Common normals: mental status grossly normal, thought process normal, cooperative, affect normal, speech normal and activity/motor behavior normal Speech: normal speech Thought process: normal thought process Results Additional Findings Additional findings: If on a controlled substance or opioids, I have checked an OARRS report on this patient and there are no aberrancies noted in the prescribing history.??If on a controlled substance or opioid a drug screen was completed and reviewed within the last year, and if there has not been a drug screen completed we ordered one today to monitor higher risk, state monitored pain medication use. As part of providing excellent, safe, comprehensive care, the following was completed at our patient's visit: 1. A medication reconciliation and review to ensure accurate knowledge of current/active medications, including asking our patients to inform us about any [id number] medications or herbal remedies/nutritional supplements/alternative remedies. 2. A review to specifically ensure our patients have had annual screening for screening for depression, screening for tobacco use, and screening for unhealthy alcohol use. For concerning screenings had a discussion with the patient, provided patient education, and recommended follow-up with primary care provider when appropriate. If patient noted with a risk of falling, they received education on strength, gait, and balance training to prevent future risk of falling. Portions of this note may have been carried over from the previous visit and updated as appropriate. Please note this office utilizes paper charting in addition to the electronic medical record. A list of current medications, vitals, and PMH is available there as the clinical staff outside of myself do not have access to [employer] charting during the clinic day operations. As part of providing quality comprehensive care the current medications, vitals, and PMH were reviewed in the paper chart. Assessment and Plan Assessment and Plan (1) Sacroiliitis: (2) Myalgia, other site: Plan repeat left SIJ injection under fluoroscopy, prior injection provided >50% improvement greater than 3 months start baclofen 5-10mg TID PRN pain/spasms f/u 2 weeks after injection
== END 2025-03-18 10:45 | disposition home or self-care (01) ==
LOC: PM 10:45
PROVIDERS: PCP Internal Medicine; Visit Provider Nurse Practitioner
DX: M46.1 Sacroiliitis, not elsewhere classified (principal); M79.18 Myalgia, other site
CPT/HCPCS: G0463

== ENCOUNTER 2025-03-20 10:47 | Outpatient (OUT) | payer MEDICARE, OTHER, SELFPAY ==
--- OUTSIDE RECORDS SUMMARY | 2025-03-20 10:49 | XMS_ITS | Clinical Summary ---
Author Organization [facility] Address [address] [place] [address] Care Team Providers Care Real Estate Recruiter Name Role Phone Unavailable Primary Care Provider [...]
--- OUTSIDE RECORDS SUMMARY | 2025-03-20 10:49 | XMS_ITS | Clinical Summary ---
Author Organization [facility] Address [facility] [place] [address] Care Team Providers Care Store Lead Name Role Phone Cecilio Benjamin DO Primary Care Provider [phone] Allergies Active Allergy Reactions Criticality Noted Date [...] (10/30/2017): Added automatically from request for surgery [id number] Complete tear of right rotator cuff 05/17/2017 Overview (05/17/2017): Added automatically from request for surgery [id number] Incomplete tear of right rotator cuff 01/11/2017 [...] is lower risk 4 03/15/2023 Data from: https://[email or web address]/. Last address used for calculation [address] [...] history exists Medical Devices Implanted Type Area Artist And Repertoire Manager Device Identifier Shelf Expiration Date Model / Serial / Lot [place] Corkscrew Fiberwire Tigerwire 5.5mm 2 Full Thread Biocomposite 14.7 - [id number] Implanted:Qty: 1 on 06/29/2017 at [facility] [place] Right: Bone - Shoulder [employer] 12/17/2018 [id number] / / [id number] [place] Swivelock Tenodesis 8mm Biocomposite 19.5mm Suture [place] Eyelet - [id number] Implanted:Qty: 1 on 06/29/2017 at [facility] [place] Right: Bone - Shoulder [employer] 06/19/2018 [id number] / / [id number] Shell 56mm E Hemispherical Tritanium Acetabular Primary Rim Cluster Hole - [id number] Implanted:2017 at [facility] (Quantity not on file) Joint - Hip Right: Bone - Hip [employer] 12/04/2022 [id number] / [id number] / [id number] Insert Trident 40mm 0d E X3 Acetabular Hip - [id number] Implanted:2017 at [facility] (Quantity not on file) Joint - Hip Right: Bone - Hip [employer] 06/24/2022 [id number] / [id number] / [id number] Head 40mm Raven Biolox Delta Tritanium Femoral Hip - [id number] Implanted:2017 at [facility] (Quantity not on file) Joint - Hip Right: Bone - Hip [employer] 09/26/2022 [id number] / / [id number] Stem Accolade Ii 6 132d Femoral - [id number] Implanted:2017 at [facility] (Quantity not on file) Joint - Hip Right: Bone - Hip [employer] 07/29/2022 [id number] / [id number] / [id number] Sleeve V40 +0mm Offset Raven Taper Titanium Adapter Hip - [id number] Implanted:2017 at [facility] (Quantity not on file) Joint - Hip Right: Bone - Hip [employer] 08/28/2022 [id number] / / [id number] Screw Trident Secur-Fit Torx 6.5mm Titanium 20mm Bone Sterile Acetabular - [id number] Implanted:2017 at [facility] (Quantity not on file) Screw Right: Bone - Hip [employer] 11/11/2022 [id number] / [id number] / [id number] Procedures Procedure Name Priority Date/Time Associated Diagnosis Comments BASIC METABOLIC PANEL (EU,FV,HL,NATALI,MM,SP) SHAJI 01/02/2018 4:32 AM EDT from Last 3 Months or Most Recently Relevant to Health Maintenance Results * (ABNORMAL) BASIC METABOLIC PANEL (AK,AV,EU,FV,HL,NATALI,MM,SP) (01/02/2018 4:32 AM EDT) Glucose 130(H) 74 - 99 mg/dL 01/02/2018 6:30 AM EDT [facility] Comment: The [place] Diabetes Association (ADA) provides guidance for cutoff [...] Standards of Medical Care in Diabetes 2016, [place] [employer] Association. Diabetes Care. 2016.39(Suppl 1). BUN 20 9 - 24 mg/dL 01/02/2018 6:30 AM [facility] Creatinine 1.22 0.73 - 1.22 mg/dL 01/02/2018 6:30 AM [facility] Sodium 140 136 - 144 mmol/L 01/02/2018 6:30 AM [facility] Potassium 4.4 3.7 - 5.1 mmol/L 01/02/2018 6:30 AM [facility] Chloride 102 97 - 105 mmol/L 01/02/2018 6:30 AM [facility] CO2 27 22 - 30 mmol/L 01/02/2018 6:30 AM EDT [facility] Anion Gap 11 9 - 18 mmol/L 01/02/2018 6:30 AM T [facility] Calcium 8.1(L) 8.6 - 10.0 mg/dL 01/02/2018 6:30 AM EDT [facility] eGFR- >60 01/02/2018 6:30 AM EDT [facility] eGFR-All Other Races 58 . 01/02/2018 6:30 AM EDT [facility] Comment: eGFR (Estimated GFR) Units of [...] [place] PA-C [facility] Final Re sult [facility] [address] [place] [address], from Last 3 Months or Most Recently Relevant to Health Maintenance Insurance [employer] Care Teams Store Lead Relationship Specialty Start Date End Date Cecilio Benjamin DO PCP - General Internal Medicine 09/04/13
--- OUTSIDE RECORDS SUMMARY | 2025-03-20 10:49 | XMS_ITS | Clinical Summary ---
Author Organization [email or web address] [facility] tem Address [id number] [address] [place] [address] Care Team Providers Care Wet Cotton Feeder Name Role Phone Cecilio Benjamin DO Primary Care Provider [phone] Allergies Active Allergy Reactions Criticality Noted Date [...] Medical Devices Not on file Insurance [employer] Care Teams Wet Cotton Feeder Relationship Specialty Start Date End Date Cecilio Benjamin DO [address] [place] [id number] PCP - General 12/20/16
[2025-03-20] MEDS: ALBUTEROL SULFATE 2.5 MG/3 ML VIAL NEB IH (15:23)
== END 2025-03-20 10:48 | disposition home or self-care (01) ==
LOC: CARD 10:48
PROVIDERS: PCP Internal Medicine; Visit Provider Internal Medicine
DX: J41.0 Simple chronic bronchitis (principal); R06.09 Other forms of dyspnea
CPT/HCPCS: 94060; 94726; 94729

== ENCOUNTER 2025-03-21 13:54 | Emergency (ER) | payer MEDICARE, OTHER, SELFPAY ==
--- OUTSIDE RECORDS SUMMARY | 2025-03-21 14:00 | XMS_ITS | CCD ---
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[employer] Name Role Phone CECILIO [phone] UNKNOWN Unavailable Unavailable CANDELARIO GOODEN Unavailable Unavailable CANDELARIO GOODEN Unavailable Unavailable CANDELARIO GOODEN Unavailable Unavailable Cecilio Benjamin Unavailable BRANDON, [...] MR SWEET Consulting Unavailable KNABERADHA Consulting Unavailable BRANDON, DR RUIZ Admitting Unavailable BRANDON, DR RUIZ Attending Unavailable BRANDON, DR RUIZ Primary Care Unavailable BRANDON, DR RUIZ Consulting Unavailable ZIEBER, DR JONAS Mina Consulting Unavailable BRANDON, DR RUIZ Admitting Unavailable BRANDON, DR RUIZ Attending Unavailable BRANDON, DR RUIZ Primary Care Unavailable BRANDON, DR RUIZ Consulting Unavailable BRANDON, DR RUIZ Admitting Unavailable BRANDON, DR RUIZ Attending Unavailable BALL, DR RUIZ Primary Care Unavailable BRANDON, DR RUIZ Consulting Unavailable HAWLEY, WINCHA Consulting Unavailable MD Jose Enrique Leblanc II Attending Provider Jose Enrique Leblanc II Unavailable Cecilio Benjamin DO Primary Care Provider DELIO JAEGER Admitting Unavailable DELIO JAEGER Attending Unavailable CECILIO BENJAMIN Primary Care Unavailable Githiitis , Andrius Carreno Attending Unavailable Giedraitis , Andrius Carreno Attending Unavailable Giedraitis , Andrius Wai Attending Unavailable Giedraitis , Andrius Carreno Attending Unavailable Giedraitis , Andrius Carreno Attending Unavailable Giedraitis , Andrius Carreno Attending Unavailable Giedraitis , Andbteo Carreno Attending Unavailable Giedraitis , Andrius Carreno Attending Unavailable Giedraitis , Andrius Wai Attending Unavailable Girosemary WHARTON, Andrius Wai Attending Unavailable Giedbebeto WHARTON, Andrius Wai Attending Unavailable Girosemary WHARTON, Andrius Carreno Attending Unavailable Griselda WHARTON, Andrius Carreno Attending Unavailable Cecilio Benjamin DO Primary Care Provider [phone] Jerry Gifford DO Attending Provider Cecilio Benjamin DO Attending Provider Faheem Sevilla MD Attending Provider Faheem Sevilla Attending Unavailable Faheem Sevilla Admitting Unavailable Cecilio Benjamin Primary [facility] Unavailable Allergies Allergy Classification Reported Allergen(s) Allergy Type Date of Onset Reaction(s) Facility (7 sources) bacitracin; Translations: [bacitracin] Drug Allergy 09-11-2013 Unknown [facility] Repository (19 sources) Albuterol Drug Allergy Unknown [facility] Other (20 sources) HMG-CoA reductase inhibitor Drug allergy Unknown [facility] Other (1 source) Niskgld-AQY-ItV Reductase Inhibitor Drug allergy (disorder) 02-17-2025 [facility] Repository Medications Current Medications Medication Drug Class(es) Dates Sig (Normalized) Sig (Original) acetaminophen 325 mg oral tablet (20 sources) Start: 10-17-2023 take 2 tablets by mouth every eight hours as needed Acetaminophen 325 mg tablet Active 325 MG PO Every 8 hours as needed October 17, 2023 1:00am 2 tablets by mouth orally every 8 hours PRN Complies with drug therapy Start: 01-02-2018 take 2 tablets by mo [facility] every eight hours acetaminophen (TYLENOL) 500 mg tablet Take 2 tablets by mouth every 8 hours. (Mild pain reliever) 90 tablet 1 01/02/2018 Active take 2 tablets by mo uth every eight hours as needed Acetaminophen 325 MG 2 tablets by mouth Orally every 8 hours PRN Active Comment on above: Take 2 tablets by mo ut every 8 hours. (Mild pain reliever) aspirin 81 mg chewable tablet (12 sources) Platelet Aggregation Inhibitor, Nonsteroidal Anti-inflammatory Drug Start: 10-01-2024 take 1 tablet by mouth once daily Aspirin 81 mg tablet,chewable Active 81 MG PO Daily October 01, 2024 1:00am Complies with drug therapy Start: 01-02-2018 take 1 tablet by christen [...] TOPICAL Twice daily October 17, 2023 1:00am Complies with drug therapy Clobetasol Propi caroline 0.05 % 1 application Externally Twice a day Active escitalopram 10 mg oral tablet (20 sources) Serotonin Reuptake Inhibitor Start: 10-01-2024 take 1 tablet by mouth once daily Escitalopram Oxalate 10 mg tablet Active 10 MG PO Daily October 01, 2024 10:09am Complies with drug therapy Start: 04-02-2024 End: 10-01-2024 Escitalopram Oxalate 10 [...] daily. fexofenadine hydrochloride 180 mg oral tablet (5 sources) Histamine-1 Receptor Antagonist Start: take 1 tablet by mouth once daily Fexofenadine (Allergy Relief (Fexofenadine)) 180 mg tablet Active 180 MG PO Daily January 20, 2025 12:00am Complies with drug therapy 60 actuat fluticasone propionate 0.25 mg/actuat / salmeterol 0.05 mg/actuat dry powder inhaler (20 sources) Corticosteroid, beta2-Adrenergic Agonist Start: Fluticasone Propion-Salmeterol (Advair Diskus) 250-50 mcg/dose blister with device Active 1 INH INHALATION Every 12 hours January 20, 2025 12:00am Complies with drug therapy Start: 11-11-2024 End: 01-20-2025 take 1 puff(s) [...] tructed once daily. Inhalational Spacing Device spacer (6 sources) Start: 12-05-19 Inhalational Spacing Device spacer Active 0 .Route 1 December 04, 2024 12:00am As directed montelukast 10 mg oral tablet (5 sources) Leukotriene Receptor Antagonist Start: 01-21-20 take 1 tablet by mouth once daily at bedtime Montelukast 10 mg tablet Active 10 MG PO Daily at bedtime 30 January 20, 2025 12:00am Complies with drug therapy mupirocin 0.02 mg/mg topical ointment (20 sources) RNA Synthetase Inhibitor Antibacterial Start: 02-12-20 Mupirocin 2 % ointment Active 1 APPLIC TOPICAL Twice daily February 11, 2025 12:00am Complies with drug therapy Start: 10-17-2023 End: 01-29-2025 Mupirocin 2 % ointment Disco ntinued 1 APPLIC TOPICAL Twice daily October 17, 2023 1:00am January 29, 2025 8:57am Mupirocin 2 % 1 application Externally Twice a day Active nabumetone 500 mg oral tablet (20 sources) Nonsteroidal Anti-inflammatory Drug Start: 04-02-2024 End: 10-01-2024 Nabumetone 500 mg tablet Active 0 .ROUTE .COMPLEX 180 October 01, 2024 10:08am TAKE 1 TABLET TWICE A DAY Complies with drug therapy Start: 10-17-2023 End: 04-02-2024 take 1 tablet [...] PO Daily at bedtime 90 90 October 01, 2024 10:08am Complies with drug therapy Start: 01-07-2024 End: 10-01-2024 Tamsulosin 0.4 mg capsule Discontinued 0 .ROUTE .COMPLEX January 07, 2024 12:45pm October 01, 2024 10:10am TAKE 1 CAPSULE DAILY Start: 10-17-2023 End: 01-07-2024 take 1 capsule by mouth once daily Tamsulosin 0.4 mg capsule Discontinued 0.4 MG PO Daily 90 October 19, 2023 11:08am January 07, 2024 12:45pm Tamsulosin HCl 0 .4 MG TAKE 1 CAPSULE EVERY EVENING Active Comment on above: Take 0.4 mg by mouth . triamcinolone acetonide 0.0005 mg/mg topical ointment (20 sources) Corticosteroid Start: 02-11-2025 Triamcinolone Acetonide 0.05 % ointment Active 1 APPLIC TOPICAL Daily February 11, 2025 12:00am Complies with drug therapy Start: 10-17-2023 End: 01-29-2025 Triamcinolone Acetonide 0.1 % ointment Discontinued 1 APPLIC TOPICAL Twice daily 80 October 19, 2023 11:08am January 29, 2025 8:57am Start: 05-30-2023 Triamcinolone Acetonide 0.1 % 1 [...] Comment on above: Take 1 capsule by [facility] twice daily. (Stool softener) doxycycline hyclate 100 mg oral capsule (20 sources) Tetracycline-clas s Drug Start: End: take 1 capsule by mouth twice daily Doxycycline Hyclate 100 mg capsule Discontinued 100 MG PO Twice daily December 09, 2024 4:30pm January 29, 2025 8:56am Start: 10-17-2023 End: 10-19-2023 take 1 capsule by mouth twice daily Doxycycline Hyclate 100 mg capsule Discontinued 100 MG PO Twice daily October 17, 2023 1:00am October 19, 2023 11:06am Start: 07-10-2023 take 1 capsule by [facility] every twelve hours Doxycycline Hyclate [...] Comment on above: [facility] (Iron supplement) FISH OIL-DHA-EPA ORAL (4 sources) take 1 capsule by mouth once daily FISH OIL-DHA-EPA ORAL Take 1 capsule by mouth once daily. 0 Active Comment on above: Take 1 capsule by [facility] once daily. Fluticasone Propionate (5 sources) Corticosteroid Start: 01-20-2025 End: 01-20-2025 Fluticasone Propionate 250 mcg/actuation blister with device Discontinued 1 INH INHALATION Every 12 hours 60 January 20, 2025 12:00am January 20, 2025 11:31am hydrocortisone 25 mg/ml topical cream (8 sources) Corticosteroid Start: 08-18-2024 End: 10-01-2024 Hydrocortisone (Proctosol Hc) 2.5 % cream with perineal applicator Discontinued 1 APPLIC VT 1 to 2 times per day as needed for hemorrhoids August 18, 2024 1:00am October 01, 2024 10:11am Inhalational Spacing Device (Aerochamber Mini) spacer (6 sources) Start: 12-03-2024 End: 12-04-2024 Inhalational Spacing Device (Aerochamber Mini) spacer Discontinued [...] once daily. predniSONE 20 mg oral tablet (10 sources) Start: 11-06-2024 End: 01-29-2025 Prednisone 20 mg tablet Discontinued 20 MG PO As Directed November 06, 2024 12:00am January 29, 2025 8:57am 1 tab tid w/ food x 3 days, then bid w/ food x 3 days, then qd w/ food x 3 days Start: 09-11-2023 take 1 tablet by [facility] twice daily predniSONE 20 MG 1 [...] Problem Date Documented Date Episodic/Chronic Acute bronchitis (19 sources) Acute bronchitis; Translations: [Acute bronchitis due [...] Translations: [Chronic obstructive pulmonary disease, unspecified] Chronic Conditions associated with dizziness or vertigo (4 sources) Dizziness on standing up; Translations: [Dizziness and giddiness] 02-11-2025 Episodic Diabetes mellitus without complication (20 sources) Hyperglycemia; Translations: [Impaired fasting glucose] 05-28-2024 Episodic Disorders of lipid metabolism (20 sources) Pure hypercholesterolemia; 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] Onset: 02-09-2022 Chronic Esophageal disorders (17 sources) Gastroesophageal reflux disease; Translations: [Gastro-esophageal reflux disease without esophagitis] 01-02-2018 Chronic Essential hypertension (20 sources) Essential hypertension; Translations: [Essential (primary) hypertension] Chronic Fracture of upper limb (9 sources) Fracture of distal end of right radius; Translations: [Unspecified fracture of the lower end of right radius, initial encounter for closed fracture] 01-29-2025 Episodic Fracture of upper limb (13 sources) Unspecified fracture of the lower end of left radius, initial encounter for closed fracture; Translations: [Fracture of distal end of left radius] Onset: 02-17-2025 01-27-2025 Episodic Genitourinary symptoms and ill-defined conditions (1 source) Nocturia Episodic Gout and other crystal arthropathies (19 sources) Chondrocalcinosis of joint of left knee; Translations: [Other chondrocalcinosis, left knee] Chronic Heart valve disorders (2 sources) Aortic valve stenosis; Translations: [Nonrheumatic aortic (valve) stenosis] 02-11-2025 Chronic Comment on above: Echo: LVEF 62%, IBETH, normal RV size/function, RVSP 31 - 08/2021,AV: ESTEPHANIE 2.01cm, velocity 297, gradient 11/07 - 08/2021 Heart valve disorders (20 sources) Systolic murmur; [...] [Spondylolysis, lumbar region] Episodic Other acquired deformities (16 sources) Spondylolysis; Translations: [Spondylolysis, lumbar region] 10-18-2023 Episodic Other acquired deformities (7 sources) Spondylolysis, lumbar region; Translations: [Acquired spondylolisthesis] 01-22-2024 Episodic Other aftercare (2 sources) 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; Translations: [OTH ASSOCIATE DIRECTOR REGULATORY AFFAIRS CURRENT DRUG THERAPY] Onset: 11-06-2022 Episodic Other circulatory disease (7 sources) Elevated blood-pressure reading without diagnosis of hypertension; Translations: [Elevated blood-pressure reading, without diagnosis of hypertension] Episodic Other circulatory disease (6 sources) Other specified symptoms and signs involving the circulatory and respiratory systems; Translations: [OTH SPEC SX SIGNS INVLV CIRC RS] Onset: 09-26-2022 Episodic Other connective tissue disease (9 sources) Cramp in lower leg ; Translations: [Sleep related leg cramps] 12-09-2024 Chronic Other connective tissue disease (2 sources) Sleep related leg cramps; Translations: [Sleep related leg cramps] 12-09-2024 Chronic Other connective tissue disease (4 sources) Cramp in lower limb; Translations: [Sleep related leg cramps] 02-11-2025 Chronic Other connective tissue disease (20 sources) [...] 09-11-2013 09-11-2013 Chronic Other nervous system disorders (5 sources) Lesion of ulnar nerve, left upper [...] [Pain in joint, forearm] 01-20-2025 Episodic Other non-traumatic joint disorders (6 sources) Pain of left wrist; Translations: [Pain in left wrist] 01-28-2025 Episodic Other nutritional; endocrine; and metabolic disorders (8 sources) Weight decreased; Translations: [Abnormal weight loss] 05-28-2024 Episodic Other screening for suspected conditions (not mental disorders or infectious disease) (3 sources) Encounter for screening for malignant neoplasm of prostate; Translations: [Patient encounter status] Episodic Other skin disorders (7 sources) Localized [...] leg, initial encounter Episodic Superficial injury; contusion (19 sources) Contusion of left foot; Translations: [Contusion of left foot, subsequent encounter] Episodic Unclassified (1 source) CONTACT W/AND (SUSP) EXPOS COVID-19; Translations: [CONTACT W/AND (SUSP) EXPOS COVID-19] Onset: 08-15-2022 Past or Other Problems Problem Classification Problem [...] Test Name Value Interpretation Reference Range Facility X-ray reportOrdered By: Lorenzo Gomez on 02-17-2025 Study report [facility] [place] [address] XRay Report Signed Patient: Neisha Thorpe MR#: [id number] : 1940 Acct:[id number] Age/Sex: 84 / M ADM Date: 5 Loc: [facility] Room: Type: [facility] Attending Dr: Faheem Sevilla MD Copies to: Faheem Sevilla MD~ Ordering Provider: Faheem Sevilla MD Date of Service: 02/17/25 XR/XR wrist LT min 3V*: S52.592A - Other fractures oflower end of left radius, i... LEFT WRIST - 4 views CLINICAL HISTORY: Follow-up distal radius fracture COMPARISON: Left wrist series 01/27/2025 FINDINGS: Distal radius fracture appears unchanged alignment with sclerosis present suggestive of healing response. Mild soft tissue swelling. Carpus demonstratesmild degenerative changes without bony erosions. XR/XR wrist LT min 3V* IMPRESSION: HEALING DISTAL RADIUS FRACTURE. Impression dictated by: Candelario Gomez Jr., D.OLainey 02/17/2025 10:32 AM Dictation Location: [place] [address] Transcribed By: [facility] 02/17/25 1032 Dictated By: Candelario Gomez Jr, DO 02/17/25 1031 Signed By: 02/17/25 1032 [facility] XR wrist LT min 3V*on 2024 XR wrist LT min 3V* [facility] [place] [address] XRay Report Signed Patient: Neisha Thorpe MR#: [id number] : 1940 Acct:[id number] Age/Sex: 84 / M ADM Date: 02/17/25 Loc: [facility] Room: Type: [facility] Attending Dr: Faheem Sevilla MD Copies to: Faheem Sevilla MD Ordering Provider: Faheem Sevilla MD Date of Service: 02/17/25 XR/XR wrist LT min 3V*: S52.592A - Other fractures of lower end of left radius, i... LEFT WRIST - 4 views CLINICAL HISTORY: Follow-up distal radius fracture COMPARISON: Left wrist series 01/27/2025 FINDINGS: Distal radius fracture appears unchanged alignment with sclerosis present suggestive of healing response. Mild soft tissue swelling. Carpus demonstrates mild degenerative changes without bony erosions. XR/XR wrist LT min 3V* IMPRESSION: HEALING DISTAL RADIUS FRACTURE. Impression dictated by: Candelario Gomez Jr., D.OLainey 02/17/2025 10:32 AM Dictation Location: [place] [address] Transcribed By: [facility] 02/17/25 1032 Dictated By: Candelario Gomez Jr, DO 02/17/25 1031 Signed By: 02/17/25 1032 Normal [facility] Basophils Auto (Bld) [#/Vol] on 12-05-2024 Basophils (Bld) [#/Vol] Automated basophil count 0.0-0.1 [facility] Basophils (Bld) [#/Vol] 0.0 10 3/uL 0.0-0.1 [facility] Basophils/100 WBC Auto (Bld) on 12-05-2024 Basophils/100 WBC (Bld) Automated basophil % 0.2-2.0 [facility] Basophils/100 WBC (Bld) 0.5 % 0.2-2.0 [facility] Eosinophils/100 WBC Auto (Bl d)on 12-05-2024 Eosinophils/100 WBC (Bld) Automated eosinophil % 0.9-7.0 [facility] Eosinophils/100 WBC (Bld) 4.8 % 0.9-7.0 [facility] Erythrocyte distribution wid th Auto (RBC) [Ratio]on 12-05-2024 Erythrocyte distribution width (RBC) [Ratio] Erythrocyte distribution width [Ratio] by Automated count 11.0-15.0 [facility] Erythrocyte distribution width (RBC) [Ratio] 12.7 % 11.0-15.0 [facility] Estimated glomerular filtrat ion rate (GFR) non- Americanon 12-05-2024 GFR/1.73 sq M.predicted among non-blacks MDRD (S/P/Bld) [Vol rate/Area] Estimated glomerular filtration rate (GFR) non- Low >=60 mL/min/1.73m 2 [facility] GFR/1.73 sq M.predicted among non-blacks MDRD (S/P/Bld) [Vol rate/Area] 51 mL/min/{1.73_m2} Low >=60 mL/min/1.73m 2 [facility] Hematocrit Auto (Bld) [Volum e fraction]on 12-05-2024 Hematocrit (Bld) [Volume fraction] Hematocrit [Volume Fraction] of Blood by Automated count Low 42.0-54.0 [facility] Hematocrit (Bld) [Volume fraction] 41.1 % Low 42.0-54.0 [facility] Hemoglobin [Mass/volume] in Bloodon 12-05-2024 Hemoglobin (Bld) [Mass/Vol] Hemoglobin [Mass/volume] in Blood 14.0-18.0 [facility] Hemoglobin (Bld) [Mass/Vol] 14.1 g/dL 14.0-18.0 [facility] Laboratory - Chemistry and C hemistry - challengeon 12-05-2024 Calcium [Mass/Vol] 8.9 mg/dL 8.5-10.1 [facility] Chloride [Moles/Vol] 103 mmol/L 98-107 [facility] CO2 [Moles/Vol] 29.1 mmol/L 21.0-32.0 [facility] Creatinine [Mass/Vol] 1.33 mg/dL High 0.70-1.30 [facility] GFR/1.73 sq M.predicted MDRD (S/P/Bld) [Vol rate/Area] mL/min/{1.73_m2} >=60 mL/min/1.73m 2 [facility] Glucose [Mass/Vol] 101 mg/dL 74-106 [facility] Magnesium [Mass/Vol] 1.8 mg/dL 1.8-2.4 [facility] Potassium [Moles/Vol] 4.2 mmol/L 3.5-5.1 [facility] Sodium [Moles/Vol] 139 mmol/L 136-145 [facility] Urea nitrogen [Mass/Vol] 24.0 mg/dL High 7.0-18.0 [facility] Urea nitrogen/Creatinine [Mass ratio] 18.0 mg/mg [facility] Laboratory - Hematology and Cell countson 12-05-2024 Immature granulocytes/100 WBC (Bld) 0.2 % 0.0-0.5 [facility] Laboratory - Microbiology an d Antimicrobial susceptibilityon 12-05-2024 SARS-CoV-2 (COVID-19) RNA RICKY+probe Ql (Unsp spec) Negative NEGATIVE [facility] Comment on above: This test has [...] erythrocytes in Blood by Automated coun 4.0-11.0 [facility] WBC corrected for nucl RBC Auto (Bld) [#/Vol] 5.5 10 3/uL 4.0-11.0 [facility] Lymphocytes Auto (Bld) [#/Vo l]on 12-05-2024 Lymphocytes (Bld) [#/Vol] Lymphocytes [#/volume] in Blood by Automated count Low 1.2-3.8 [facility] Lymphocytes (Bld) [#/Vol] 0.9 10 3/uL Low 1.2-3.8 [facility] Lymphocytes/100 WBC Auto (Bl d)on 12-05-2024 Lymphocytes/100 WBC (Bld) Lymphocytes/100 leukocytes in Blood by Automated count Low 20.5-60.0 [facility] Lymphocytes/100 WBC (Bld) 16.7 % Low 20.5-60.0 [facility] MCH Auto (RBC) [Entitic mass ]on 12-05-2024 MCH (RBC) [Entitic mass] MCH [Entitic mass] by Automated count 25.9-34.0 [facility] MCH (RBC) [Entitic mass] 32.3 pg 25.9-34.0 [facility] MCHC Auto (RBC) [Mass/Vol]on 12-05-2024 MCHC (RBC) [Mass/Vol] MCHC [Mass/volume] by Automated count 29.9-35.2 [facility] MCHC (RBC) [Mass/Vol] 34.3 g/dL 29.9-35.2 [facility] MCV Auto (RBC) [Entitic vol] on 12-05-2024 MCV (RBC) [Entitic vol] MCV [Entitic volume] by Automated count High 80.0-94.0 [facility] MCV (RBC) [Entitic vol] 94.3 fL High 80.0-94.0 [facility] Monocytes Auto (Bld) [#/Vol] on 12-05-2024 Monocytes (Bld) [#/Vol] Automated blood monocyte count 0.3-0.8 [facility] Monocytes (Bld) [#/Vol] 0.6 10 3/uL 0.3-0.8 [facility] Monocytes/100 WBC Auto (Bld) on 12-05-2024 Monocytes/100 WBC (Bld) Automated monocyte % 1.7-12.0 [facility] Monocytes/100 WBC (Bld) 10.1 % 1.7-12.0 [facility] Neutrophils Auto (Bld) [#/Vo l]on 12-05-2024 Neutrophils (Bld) [#/Vol] Neutrophils [#/volume] in Blood by Automated count 1.4-6.5 [facility] Neutrophils (Bld) [#/Vol] 3.7 10 3/uL 1.4-6.5 [facility] Neutrophils/100 WBC Auto (Bl d)on 12-05-2024 Neutrophils/100 WBC (Bld) Automated neutrophil % 43.0-75.0 [facility] Neutrophils/100 WBC (Bld) 67.7 % 43.0-75.0 [facility] No Panel Informationon 12-05 Eosinophils # (Auto) 0.3 10 3/uL 0.0-0.7 [facility] Immature Granulocyte # (Auto) 0.01 10 3/uL 0.00-0.03 [facility] Troponin I High Sensitivity 15.5 pg/mL 4.0-76.1 [facility] Comment on above: CUT-OFF POINTS HAVE [...] INFORMATION. Bedside Influenza Type A Antigen Negative [facility] Comment on above: Negative for Flu A p rotein antigen. Infection due to Flu Acannot be ruled out. Flu A antigen in the sample may bebelow the detection limit of the test. Bedside Influenza Type B Antigen Negative [facility] Comment on above: Negative for Flu B p rotein antigen. Infection due to Flu Bcannot be ruled out. Flu B antigen in the sample may bebelow the detection limit of the test. Platelet mean volume Auto (B ld) [Entitic vol]on 12-05-2024 Platelet mean volume (Bld) [Entitic vol] Platelet mean volume [Entitic volume] in Blood by Automated count 9.5-13.5 [facility] Platelet mean volume (Bld) [Entitic vol] 10.3 fL 9.5-13.5 [facility] Platelets Auto (Bld) [#/Vol] on 12-05-2024 Platelets (Bld) [#/Vol] Platelets [#/volume] in Blood by Automated count Low 150-450 [facility] Platelets (Bld) [#/Vol] 104 10 3/uL Low 150-450 [facility] RBC Auto (Bld) [#/Vol]on RBC (Bld) [#/Vol] Erythrocytes [#/volume] in Blood by Automated count Low 4.70-6.10 [facility] RBC (Bld) [#/Vol] 4.36 10 6/uL Low 4.70-6.10 [facility] Serum or plasma anion gap de terminationon 12-05-2024 Anion gap [Moles/Vol] Serum or plasma anion gap determination [facility] Anion gap [Moles/Vol] 11.1 mmol/L [facility] Influenza virus B Ag [Presen ce] in Upper respiratory specimen by Rapid immunoassayon 11-06-2024 FLUBV Ag IA.rapid Ql (Nph) Influenza virus B Ag [Presence] in Upper respiratory specimen by Rapid immunoassay [facility] No Panel Informationon 11-06 Influenza Type A (Rapid) Negative [facility] POC SARS CoV-2 Antigen Negative [facility] CNPNon 03-20-2023 CNPN Telephone (SPNMAV) NEISHA THORPE ([id number]) 1940 [employer] Date Time Provider Department 03/20/23 DELIO JAEGER SPKYAV During your visit today, we recorded the following information about you: Neida Caballero MA 03/20/2023 12:30 PM Signed DATE OF SERVICE: 03/15/2023 PATIENT'S PHONE NUMBERS: [phone] (home) OR @[employer]@ PROVIDER: Dr. Jaeger PROCEDURE: Elective Pain Management [...] work Requesting to call his CELL ONLY [phone] what to do next Leave Detailed messages Neida Caballero MA 03/21/2023 2:01 PM Signed Formatted spine intervention order and sent to Dr. Jaeger for approval. Neida Caballero MA 03/21/2023 2:01 PM Signed Addended by: NEIDA CABALLERO on: 03/21/2023 02:01 PM Modules accepted: Delio Dorsey DO 03/21/2023 2:06 PM Signed Addended by: DELIO JAEGER on: 03/21/2023 02:06 PM Modules accepted: [...] of spine injection schedulers to call at [phone]. Patient will call if he wants to schedule another injection. 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 Author Type: Physician [...] offered a procedure / surgery at a [facility] facility. Patient and I have [...] indicated on the consent form. [facility] approved time out was performed identifying the site, side and level of procedure prior to start of procedure. [facility] [place] - ELECTIVE PROCEDURE Lumbar Transforaminal Epidural Steroid [...] procedure and I performed the entire procedure. Delio [facility]eger DO, MBA [facility] CHELLE Telephone (SPNMAV) NEISHA THORPE ([id number]) 1940 Jill Benton Date Time Provider Department 02/26/23 DELIO JAEGERNMGLORIA During your visit today, we recorded the following information about you: Linda Chandler HODA 02/26/2023 4:49 PM Signed [facility] to [facility] procedure instructions. 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 Pt advised to arrive 30 min [...] Advised on location of [facility] Pt will receive a follow up call several days after by a steamboat captain. If you experience any increase in weakness, difficulty walking or significant increase in pain that last more than 4 hours, please proceed to the Emergency Room and tell them you had a spine procedure done recently. Additionally, call us and notify us of these symptoms. Please call [phone] if you have any questions. Pt verbalized understanding. Allergies As of Date: 02/26/2023 Noted Allergy Reaction BACITRACIN 09/11/2013 16 - Unknown Date Reviewed: 07/19/2021 Reviewed by: Kathrien Sood RN - Fully Assessed Reason for [...] Status:Closed by LINDA KNOX LPN on 02/26/23 [facility] Unique 02-19-2023 CHELLE Telephone (SPNMAV) NEISHA THORPE ([id number]) 1940 Jill Marie* Date Time Provider Department 02/19/23 DELIO JAEGER SPNMGLORIA During your visit today, we recorded the following information about you: Camilla Jarrell Pss 02/19/2023 9:27 AM Signed Neisha Keeley Thorpe daughter Celi is calling Delio Jaeger DO today to ask about getting patient a shot again - Last one in 2020 Please advise what patient needs as far as OV or MRI or if he can be scheduled for procedure - daughter states she left a VM somewhere last week but never heard back Please call Celi as patient cannot hear well [phone] Patient has been identified by name and birthdate. Duration of symptoms: N/A Person calling: daughter: Celi Call patient at: N/A [phone] (home) [phone] (cell) Was an appointment scheduled: No Closing statement: Results or non-symptom based questions: Thank you for calling [facility], your call will be returned within the next business day. Camilla Jarrell [facility] Linda Knox LPN 02/19/2023 9:45 AM Signed Spine Intervention order formatted for review Linda Knox LPN 02/19/2023 11:59 AM Signed Order approved Spoke to daughter in [facility] to pre procedure instructions. 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 Pt advised to arrive 30 min prior to the time given by the hair tinter. Pt advised will also receive a call the day before from the surgery center to confirm date/time. Pt can eat and drink as normal. and Pt can take medications as normal. No alcohol 24 hours prior. Pt is on ASA.- 81 mg okay to take. and must Advised on location of [facility] Pt will receive a follow up call several days after by a steamboat captain. If you experience any increase in weakness, difficulty walking or significant increase in pain that last more than 4 hours, please proceed to the Emergency Room and tell them you had a spine procedure done recently. Additionally, call us and notify us of these symptoms. Please call [phone] if you have any questions. Pt verbalized understanding. 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 Normal [facility] XR knee LT 4V*on 11-09-2022 XR knee LT 4V* [facility] Guide To Other XR knee LT 4V* [facility] [employer] Other XR knee LT 4V* [address] [place] [address] [employer] Other XR knee LT 4V* [place] [address] No rt [employer] To Other XR knee LT 4V* XRay Report [employer] Other XR knee LT 4V* Signed [employer] Other XR knee LT 4V* Patient: Neisha Thorpe MR#: [id number] [employer] Other XR knee LT 4V* 5 [employer] Other XR knee LT 4V* : 1940 Acct:[id number] [employer] Other XR knee LT 4V* Age/Sex: 82 / M ADM Date: 11/09/22 [employer] Other XR knee LT 4V* Loc: [facility] Room: Type : [facility] [employer] Other XR knee LT 4V* Attending Dr: Jose Enrique Leblanc II, MD [employer] Other XR knee LT 4V* Copies to: Jose Enrique Leblanc MD [employer] Other XR knee LT 4V* Ordering Provider: Jose Enrique Leblanc MD [employer] Other XR knee LT 4V* Date of Service: 11/09/22 [employer] Other XR knee LT 4V* XR/XR knee LT 4V*: Acute pain of left knee [employer] Other XR knee LT 4V* XR knee LT 4V* 11/09/2022 3:15 PM [employer] Other XR knee LT 4V* SIGNS AND SYMPTOMS: Acute pain of left knee [employer] Other XR knee LT 4V* PROTOCOL: Frontal, lateral, oblique, and sunrise views of the left knee [employer] Other XR knee LT 4V* COMPARISON: 11/05/2022 [employer] Other XR knee LT 4V* FINDINGS: [employer] Other XR knee LT 4V* There is similar narrowing of the weightbearing joint spaces with chondrocalcinosis of the menisci [employer] Other XR knee LT 4V* suggesting underlyin g CPPD. There is narrowing of the patellofemoral joint space with spurring at [employer] Other XR knee LT 4V* the superior pole of patella. There is a small joint effusion. No soft tissue swelling. No acute [employer] Other XR knee LT 4V* displaced fracture. Vascular calcifications are present posteriorly. 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 [employer] Other XR knee LT 4V* Impression dictated by: Darren Yuen M.D.11/09/2022 5:03 PM [employer] Other XR knee LT 4V* Dictation Location: [place] [address] [employer] Other XR knee LT 4V* Transcribed By: COLIN 11/09/22 [facility] [employer] Other XR knee LT 4V* Dictated By: Darren Yuen II, MD 11/09/22 [facility] [employer] Other XR knee LT 4V* Signed By: [employer]it Other XR knee LT 4V* 11/09/22 [facility] [employer] Other XR pelvis 1-2Von 11-09-2022 XR pelvis 1-2V XR/XR pelvis 1-2V: Acute pain of left knee [employer] Other XR pelvis 1-2V XR pelvis 1-2V 11/09/2022 3:15 PM [employer] Other XR pelvis 1-2V SIGNS AND SYMPTOMS: Left knee pain [employer] Other XR pelvis 1-2V PROTOCOL: Frontal radiograph of the chest [employer] Other XR pelvis 1-2V COMPARISON: None [facility] Other XR pelvis 1-2V There is mild narrowing of the left hip joint space with subcortical cystic change on both sides of [employer] Other XR pelvis 1-2V the joint along the acetabular there is chondrocalcinosis of the labrum overlying the superior [employer] Other XR pelvis 1-2V acetabular rim and superior lateral femoral head. The bony ring of the pelvis is intact. There is [employer] Other XR pelvis 1-2V total right hip arthroplasty. Degenerative changes are noted in the sacroiliac joints. No fracture [employer] Other XR pelvis 1-2V is [employer] Other XR pelvis 1-2V XR/XR pelvis 1-2V [employer] Other XR pelvis 1-2V Degenerative changes are noted in the left hip with findings suspicious for previous labral [employer] Other XR pelvis 1-2V pathology. [employer] Other XR pelvis 1-2V Postoperative change s are noted in the right hip with total right hip arthroplasty hardware. [employer] Other XR pelvis 1-2V Impression dictated by: Darren Yuen M.D.11/09/2022 5:01 PM [employer] Other XR pelvis 1-2V Transcribed By: COLIN 11/09/22 170 [employer] Other XR pelvis 1-2V Dictated By: Darren Yuen II, MD 11/09/22 [facility] [employer] Other XR pelvis 1-2V 11/09/22 170 [employer] Other XR KNEE LT 4V or >on [...] There is chondrocalcinosis. Soft tissues: Unremarkable. IMPRESSION: Mpbz-fr-zrqefelh osteoarthritis as described above. Chondrocalcinosis. No acute fracture or dislocation. Electronically authenticated by: CHUCK JONES Date: 2022-11-05 11:19 Normal [facility] US CAROTID ART BILon 023 US [...] JONAS MCLEOD Date: 2022-09-26 10:58 Normal [facility] CBC AUTO DIFFon 08-10-2022 BASO # 0.0 103/ul Normal 0.0-0.1 [facility] Comment on above: Performed By: #### C BC #### [facility] [address] [place] [address] Dr. Alexis Brink Basophils/100 WBC (Bld) 0.7 % Normal 0.2-2.0 [facility] Comment on above: Performed By: #### C BC #### [facility] [address] [place] [address] Dr. Alexis Brink EO # 0.3 103/ul Normal 0.0-0.7 [facility] Comment on above: Performed By: #### C BC #### [facility] [address] [place] [address] Dr. Alexis Brink Eosinophils/100 WBC (Bld) 6.1 % Normal 0.9-7.0 [facility] Comment on above: Performed By: #### C BC #### [facility] [address] [place] [address] Dr. Alexis Brink Erythrocyte distribution width (RBC) [Ratio] 12.1 % Normal 11.0-15.0 [facility] Comment on above: Performed By: #### C BC #### [facility] [address] [place] [address] Dr. Alexis Brink Hematocrit (Bld) [Volume fraction] 44.2 % Normal 42.0-54.0 [facility] Comment on above: Performed By: #### C BC #### [facility] [address] [place] [address] Dr. Alexsi Brink Hemoglobin (Bld) [Mass/Vol] 14.9 g/dL Normal 14.0-18.0 [facility] Comment on above: Performed By: #### C BC #### [facility] [address] [place] [address] Dr. Alexis Brink IG # 0.01 10e3/ul Normal 0.00-0.03 [facility] Comment on above: Performed By: #### C BC #### [facility] [address] [place] [address] Dr. Alexis Brink IG % 0.2 % Normal 0.0-0.5 [facility] Comment on above: Performed By: #### C BC #### [facility] [address] [place] [address] Dr. Alexis Brink LYMPH # 1.2 103/ul Normal 1.2-3.8 [facility] Comment on above: Performed By: #### C BC #### [facility] [address] [place] [address] Dr. Alexis Brink Lymphocytes/100 WBC (Bld) 21.3 % Normal 20.5-60.0 [facility] Comment on above: Performed By: #### C BC #### [facility] [address] [place] [address] Dr. Alexis Brink MANUAL DIFF REQ NO Normal [facility] Comment on above: Performed By: #### C BC #### [facility] [address] [place] [address] Dr. Alexis Brink MCH (RBC) [Entitic mass] 30.7 pg Normal 25.9-34.0 [facility] Comment on above: Performed By: #### C BC #### [facility] [address] [place] [address] Dr. Alexis Brink MCHC (RBC) [Mass/Vol] 33.7 g/dL Normal 29.9-35.2 [facility] Comment on above: Performed By: #### C BC #### [facility] [address] [place] [address] Dr. Alexis Brink MCV (RBC) [Entitic vol] 91.1 fL Normal 80.0-94.0 [facility] Comment on above: Performed By: #### C BC #### [facility] [address] [place] [address] Dr. Alexis Brink MONO # 0.5 103/ul Normal 0.3-0.8 [facility] Comment on above: Performed By: #### C BC #### [facility] [address] [place] [address] Dr. Alexis Brink Monocytes/100 WBC (Bld) 8.5 % Normal 1.7-12.0 [facility] Comment on above: Performed By: #### C BC #### [facility] [address] [place] [address] Dr. Alexis Brink NEUT # 3.5 103/ul Normal 1.4-6.5 [facility] Comment on above: Performed By: #### C BC #### [facility] [address] [place] [address] Dr. Alexis Brink Neutrophils/100 WBC (Bld) 63.2 % Normal 43.0-75.0 [facility] Comment on above: Performed By: #### C BC #### [facility] [address] [place] [address] Dr. Alexis Brink Platelet mean volume (Bld) [Entitic vol] 10.0 fL Normal 9.5-13.5 [facility] Comment on above: Performed By: #### C BC #### [facility] [address] [address] [address] Alexis Brink PLT 120 103/ul Critically low 150-450 [facility] Comment on above: Performed By: #### C BC #### [facility] [address] [address] [address] Alexis Brink RBC 4.85 106/ul Normal 4.70-6.10 [facility] Comment on above: Performed By: #### C BC #### [facility] [address] [address] [address] Alexis Brink WBC 5.6 103/ul Normal 4.0-11.0 [facility] Comment on above: Performed By: #### C BC #### [facility] [address] [address] [address] Alexis Brink Covid-19 PCR ([facility]on 07-21 SARS-CoV-2 (COVID-19) RNA RICKY+probe Ql (Unsp spec) Not detected Normal NOT DETECTED [facility] Comment on above: Result Comment: This test is not yet approved or cleared by the [place] FDA. When there are no FDA-approved or cleared tests available, and other criteria are met, FDA can make tests available under an emergency access mechanism called an Emergency Use Authorization (EUA). The EUA for this test is supported by the [place] of Health and Human Service's (HHS's) declaration [...] with SARS-CoV-2. Performed By: #### C VDTBH ####[facility] [id number] [place] [address]Dr. Alexis Brink INFLUENZA A AND B AGon 08-10 INFLUANEGH SEE BELOW Normal [facility] Comment on above: Result Comment: Nega tive for Flu A protein angiten. Infection due to Flu A cannot be ruled out. Flu A angiten in the sample may be below the detection limit of the test. Performed By: #### I NFLUAB ####[facility] [id number] [place], [place] [address]Dr. Alexis Brink INFLUBNEGH SEE BELOW Normal [facility] Comment on above: Result Comment: Nega tive for Flu B protein antigen. Infection due to Flu B cannot be ruled out. Flu B antigen in the sample may be below the detection limit of the test. Performed By: #### I NFLUAB ####[facility] [id number] [place], [place] [address]Dr. Alexis Brink INFLUENZA A AG Negative Normal NEGATIVE SEE COMMENT [facility] Comment on above: Performed By: #### I NFLUAB ####[facility] [id number] [place], [place] [address]Dr. Alexis Brink INFLUENZA B AG Negative Normal NEGATIVE SEE COMMENT [facility] Comment on above: Performed By: #### I NFLUAB ####[facility] [id number] [place], [place] [address]Dr. Alexis Brink INTERNAL CONTROLS Within Normal Limits Normal Wi thin Normal Limits [facility] Comment on above: Performed By: #### I NFLUAB ####[facility] [id number] [place], [place] [address]Dr. Alexis Brink PROF CHEM 8 (BAS METB)on Anion gap [Moles/Vol] 11.4 mmol/L Normal [facility] Comment on above: Performed By: #### B TATO BAINSTRMERTN #### [facility] [address] [address] [address] Alexis Brink Calcium [Mass/Vol] 8.9 mg/dL Normal 8.5-10.1 [facility] Comment on above: Performed By: #### B NARA HSTRMERTN #### [facility] [address] [address] [address] Alexis Brink Chloride [Moles/Vol] 102 mmol/L Normal 98-107 [facility] Comment on above: Performed By: #### B MP, HSTROPN #### [facility] [address] [address] [address] Alexis Brink CO2 [Moles/Vol] 28.8 mmol/L Normal 21.0-32.0 [facility] Comment on above: Performed By: #### B MP, HSTROPN #### [facility] [address] [address] [address] Alexis Brink Creatinine [Mass/Vol] 1.35 mg/dL Critically high 0.70-1.30 [facility] Comment on above: Performed By: #### B MP, HSTROPN #### [facility] [address] [address] [address] Alexis Brink EGFR-AF STATELESS >60 Normal >=60 [facility] Comment on above: Performed By: #### B MP, HSTROPN #### [facility] [address] [address] [address] Alexis Brink EGFR-NON AF STATELESS 51 mL/min/1.73m2 Critically low >=60 [facility] Comment on above: Performed By: #### B MP, HSTROPN #### [facility] [address] [address] [address] Alexis Brink Glucose [Mass/Vol] 109 mg/dL Critically high 74-106 [facility] Comment on above: Performed By: #### B MP, HSTROPN #### [facility] [address] [address] [address] Alexis Brink Potassium [Moles/Vol] 4.2 mmol/L Normal 3.5-5.1 [facility] Comment on above: Performed By: #### B MP, HSTROPN #### [facility] [address] [address] [address] Alexis Brink Sodium [Moles/Vol] 138 mmol/L Normal 136-145 [facility] Comment on above: Performed By: #### B NARA, HSTROPN #### [facility] [address] [address] [address] Alexis Brink Urea nitrogen [Mass/Vol] 18.0 mg/dL Normal 7.0-18.0 [facility] Comment on above: Performed By: #### B NARA, HSTROPN #### [facility] [address] [place] [address] Dr. Alexis Brink Urea nitrogen/Creatinine [Mass ratio] 13.3 mg/mg Normal [facility] Comment on above: Performed By: #### B NARA, HSTROPN #### [facility] [address] [place] [address] Dr. Alexis Brink TROPONIN, HIGH SENSITIVITYon 08-10-2022 HSTROP 22.2 pg/mL Normal 4.0-76.1 [facility] Comment on above: Result Comment: CUT- OFF POINTS HAVE BEEN ESTABLISHED BASED ON THE FOURTH UNIVERSAL DEFINITIONS OF MYOCARDIAL INFARCTION. THE UPPER REFERENCE LIMIT (URL) OF TROPONIN, DEFINED THE 99TH PERCENTILE OF cTnI DISTRIBUTION IN A REFERENCE POPULATION, HAS BEEN CONFIRMED THE DECISION THRESHOLD FOR VA DIAGNOSIS. Performed By: #### B NARA, HSTROPN #### [facility] [address] [place] [address] Dr. Alexis Brink XR CHEST 1 Von [...] by: RADHA UNDERWOOD Date: 2022-08-10 16:07 Normal [facility] CBC AUTO DIFFon 02-09-2022 BASO # 0.0 103/ul Normal 0.0-0.1 [facility] Comment on above: Performed By: #### C BC #### [facility] [address] [address] [address] Alexis Brink Basophils/100 WBC (Bld) 0.6 % Normal 0.2-2.0 [facility] Comment on above: Performed By: #### C BC #### [facility] [address] [place] [address] Dr. Alexis Brink EO # 0.5 103/ul Normal 0.0-0.7 [facility] Comment on above: Performed By: #### C BC #### [facility] [address] [place] [address] Dr. Alexis Brink Eosinophils/100 WBC (Bld) 7.2 % Critically high 0.9-7.0 [facility] Comment on above: Performed By: #### C BC #### [facility] [address] [place] [address] Dr. Alexis Brink Erythrocyte distribution width (RBC) [Ratio] 12.4 % Normal 11.0-15.0 [facility] Comment on above: Performed By: #### C BC #### [facility] [address] [place] [address] Dr. Alexis Brink Hematocrit (Bld) [Volume fraction] 45.5 % Normal 42.0-54.0 [facility] Comment on above: Performed By: #### C BC #### [facility] [address] [place] [address] Dr. Alexis Brink Hemoglobin (Bld) [Mass/Vol] 15.4 g/dL Normal 14.0-18.0 [facility] Comment on above: Performed By: #### C BC #### [facility] [address] [place] [address] Dr. Alexis Brink IG # 0.02 10e3/ul Normal 0.00-0.03 [facility] Comment on above: Performed By: #### C BC #### [facility] [address] [place] [address] Dr. Alexis Brink IG % 0.3 % Normal 0.0-0.5 [facility] Comment on above: Performed By: #### C BC #### [facility] [address] [address] [address] Alexis Brink LYMPH # 1.3 103/ul Normal 1.2-3.8 [facility] Comment on above: Performed By: #### C BC #### [facility] [address] [place] [address] Dr. Alexis Brink Lymphocytes/100 WBC (Bld) 17.8 % Critically low 20.5-60.0 [facility] Comment on above: Performed By: #### C BC #### [facility] [address] [place] [address] Dr. Alexis Brink MANUAL DIFF REQ NO Normal [facility] Comment on above: Performed By: #### C BC #### [facility] [address] [place] [address] Dr. Alexis Brink MCH (RBC) [Entitic mass] 31.4 pg Normal 25.9-34.0 [facility] Comment on above: Performed By: #### C BC #### [facility] [address] [place] [address] Dr. Alexis Brink MCHC (RBC) [Mass/Vol] 33.8 g/dL Normal 29.9-35.2 [facility] Comment on above: Performed By: #### C BC #### [facility] [address] [place] [address] Dr. Alexis Brink MCV (RBC) [Entitic vol] 92.9 fL Normal 80.0-94.0 [facility] Comment on above: Performed By: #### C BC #### [facility] [address] [place] [address] Dr. Alexis Brink MONO # 0.7 103/ul Normal 0.3-0.8 [facility] Comment on above: Performed By: #### C BC #### [facility] [address] [place] [address] Dr. Alexis Brink Monocytes/100 WBC (Bld) 9.6 % Normal 1.7-12.0 [facility] Comment on above: Performed By: #### C BC #### [facility] [address] [address] [address] Alexis Brink NEUT # 4.6 103/ul Normal 1.4-6.5 [facility] Comment on above: Performed By: #### C BC #### [facility] [address] [address] [address] Alexis Brink Neutrophils/100 WBC (Bld) 64.5 % Normal 43.0-75.0 [facility] Comment on above: Performed By: #### C BC #### [facility] [address] [address] [address] Alexis Brink Platelet mean volume (Bld) [Entitic vol] 10.7 fL Normal 9.5-13.5 [facility] Comment on above: Performed By: #### C BC #### [facility] [address] [address] [address] Alexis Brink PLT 130 103/ul Critically low 150-450 [facility] Comment on above: Performed By: #### C BC #### [facility] [address] [address] [address] Alexis Brink RBC 4.90 106/ul Normal 4.70-6.10 [facility] Comment on above: Performed By: #### C BC #### [facility] [address] [address] [address] Alexis Brink WBC 7.1 103/ul Normal 4.0-11.0 [facility] Comment on above: Performed By: #### C BC #### [facility] [address] [address] [address] Alexis Brink DIRECT LDLon 02-09-2022 Cholesterol in LDL [Mass/Vol] 144 mg/dL Normal [facility] Comment on above: Performed By: #### D LDL, BMP ####[facility] [id number] [address]Dr. Alexis Brink DLDL NORMAL SEE BELOW Normal [facility] Comment on above: Result Comment: <100 mg/dl OPTIMAL 100 - 129 mg/dl NEAR OR ABOVE OPTIMAL 130 - 159 mg/dl BORDERLINE HIGH 160 - 189 mg/dl HIGH >190 mg/dl VERY HIGH Performed By: #### D LDL, BMP ####[facility] [id number] [address]Dr. Alexis Brink PROF CHEM 8 (BAS METB)on Anion gap [Moles/Vol] 9.3 mmol/L Normal [facility] Comment on above: Performed By: #### D LDL, BMP #### [facility] [address] [address] [address] Alexis Brink Calcium [Mass/Vol] 8.7 mg/dL Normal 8.5-10.1 [facility] Comment on above: Performed By: #### D LDL, BMP #### [facility] [address] [address] [address] Alexis Brink Chloride [Moles/Vol] 103 mmol/L Normal 98-107 [facility] Comment on above: Performed By: #### D LDL, BMP #### [facility] [address] [address] [address] Alexis Brink CO2 [Moles/Vol] 32.1 mmol/L Critically high 21.0-32.0 [facility] Comment on above: Performed By: #### D LDL, BMP #### [facility] [address] [place] [address] Dr. Alexis Birnk Creatinine [Mass/Vol] 1.35 mg/dL Critically high 0.70-1.30 [facility] Comment on above: Performed By: #### D LDL, BMP #### [facility] [address] [place] [address] Dr. Alexis Brink EGFR-AF STATELESS >60 Normal >=60 [facility] Comment on above: Performed By: #### D LDL, BMP #### [facility] [address] [address] [address] Alexis Brink EGFR-NON AF STATELESS 51 mL/min/1.73m2 Critically low >=60 [facility] Comment on above: Performed By: #### D LDL, BMP #### [facility] [address] [address] [address] Alexis Brink Glucose [Mass/Vol] 90 mg/dL Normal 74-106 [facility] Comment on above: Performed By: #### D LDL, BMP #### [facility] [address] [address] [address] Alexis Brink Potassium [Moles/Vol] 4.4 mmol/L Normal 3.5-5.1 [facility] Comment on above: Performed By: #### D LDL, BMP #### [facility] [address] [address] [address] Alexis Brink Sodium [Moles/Vol] 140 mmol/L Normal 136-145 [facility] Comment on above: Performed By: #### D LDL, BMP #### [facility] [address] [place] [address] Dr. Alexis Brink Urea nitrogen [Mass/Vol] 16.0 mg/dL Normal 7.0-18.0 [facility] Comment on above: Performed By: #### D LDL, BMP #### [facility] [address] [place] [address] Dr. Alexis Brink Urea nitrogen/Creatinine [Mass ratio] 11.9 mg/mg Normal [facility] Comment on above: Performed By: #### D LDL, BMP #### [facility] [address] [place] [address] Dr. Alexis Brink UA RANDOMon 02-09-2022 Bilirubin Ql (U) Negative Normal NEGATIVE [facility] Comment on above: Performed By: #### U A #### [facility] [address] [place] [address] Dr. Alexis Brink Clarity (U) CLEAR Normal CLEAR [facility] Comment on above: Performed By: #### U A #### [facility] [address] [place] [address] Dr. Alexis Brink Color (U) YELLOW Normal YELLOW [facility] Comment on above: Performed By: #### U A #### [facility] [address] [place] [address] Dr. Alexis Brink Glucose Ql (U) Negative Normal NEGATIVE [facility] Comment on above: Performed By: #### U A #### [facility] [address] [place] [address] Dr. Alexis Brink Hemoglobin Ql (U) Negative Normal NEGATIVE [facility] Comment on above: Performed By: #### U A #### [facility] [address] [place] [address] Dr. Alexis Brink Ketones Ql (U) Negative Normal NEGATIVE [facility] Comment on above: Performed By: #### U A #### [facility] [address] [place] [address] Dr. Alexis Brink LEUKOCYTES Negative Normal NEGATIVE [facility] Comment on above: Performed By: #### U A #### [facility] [address] [place] [address] Dr. Alexis Brink Nitrite Ql (U) Negative Normal NEGATIVE [facility] Comment on above: Performed By: #### U A #### [facility] [address] [place] [address] Dr. Alexis Brink pH (U) 7.0 [pH] Normal 5-9 [facility] Comment on above: Performed By: #### U A #### [facility] [address] [place] [address] Dr. Alexis Brink SPEC GRAVITY 1.015 Normal 1.005-<=1.02 5 [facility] Comment on above: Performed By: #### U A #### [facility] [address] [place] [address] Dr. Alexis Brink UA PROTEIN Negative Normal NEGATIVE/ TRACE [facility] Comment on above: Performed By: #### U A #### [facility] [address] [place] [address] Dr. Alexis Brink Urobilinogen Qn (U) 1.0 {Kay'U}/dL Normal 0.2 - 1. 0 [facility] Comment on above: Performed By: #### U A #### [facility] [address] [place] [address] Dr. Alexis Brink XR CHEST 2 Von [...] by: LYDIA HAWLEY Date: 2021-12-06 15:42 Normal [facility] Nonvisit Note - PTon 018 Nonvisit Note - PT Cert letter refaxed for signature this date - third and final attempt. Normal [facility] Nonvisit Note - PTon 018 Nonvisit Note - PT Cert letter refaxed to Dr Gooden's office. Second attempt. Normal [facility] Coding Summary.on 01-25-2018 Coding Summary. CODING DATE: 01/25/2018 FINAL [facility] STATUS: PAYOR: Medicare ADMIT DX: REASON FOR [...] Saved: 01/25/2018 10:54 am Normal [facility] Coding Summary. CODING DATE: 01/25/2018 FINAL [facility] STATUS: PAYOR: Medicare ADMIT DX: REASON FOR [...] Saved: 01/25/2018 10:54 am Normal [facility] SURGICAL PATHOLOGYon 05-15-2 018 SURGICAL PATHOLOGY [facility]: [id number] Physician: CANDELARIO GOODEN MD FINAL DIAGNOSISRight hip, arthroplasty - [...] to 8.5 x 8.5 x 1.8 cm. [employer] Operator sectionsare submitted as follows: A1 soft tissue, A2 bone submitted afterdecalcification.B Юлия/lachelle 01/01/2018 Gross examination performed [facility] [address] [facility] [address] of Report: 01/07/2018Date of Procedure: 01/01/2018Date of Receipt: 01/01/2018Submitted by: CANDELARIO GOODEN MDLocation: [id number] interpretation performed at [facility], [address],[facility] [address]. Normal [facility] Comment on above: Performed By: #### S ####See report for performing lab information. Vital Signs Date Time Vital Sign Value Performing Clinician Facility 02-11-2025 08:58-0400 Body height 167.64 cm Cecilio Ball DO Work Phone: [facility] 02-11-2025 08:58-0400 Body mass index (BMI) [Ratio] 28.4 kg/m2 Cecilio Ball DO Work Phone: [facility] 02-11-2025 08:58-0400 Body weight 79.94 kg Cecilio Ball DO Work Phone: [facility] 02-11-2025 08:58-0400 Diastolic blood pressure 71 mm[Hg] Cecilio Ball DO Work Phone: [facility] 02-11-2025 08:58-0400 Heart rate 71 /min Cecilio Ball DO Work Phone: [facility] 02-11-2025 08:58-0400 Respiratory rate 12 /min Cecilio Ball DO Work Phone: [facility] 02-11-2025 08:58-0400 SaO2% (BldA) [Mass fraction] 97 % Cecilio Ball DO Work Phone: [facility] 02-11-2025 08:58-0400 Systolic blood pressure 138 mm[Hg] Cecilio Ball DO Work Phone: [facility] 01-20-2025 10:50-0400 Body height 167.64 cm [facility] 01-20-2025 10:50-0400 Body mass index (BMI) [Ratio] 28.5 kg/m2 [facility] 01-20-2025 10:50-0400 Body weight 80.37 kg [facility] 01-20-2025 10:50-0400 Diastolic blood pressure 74 mm[Hg] [facility] 01-20-2025 10:50-0400 Heart rate 66 /min [facility] 01-20-2025 10:50-0400 Respiratory rate 16 /min [facility] 01-20-2025 10:50-0400 SaO2% (BldA) [Mass fraction] 95 % [facility] 01-20-2025 10:50-0400 Systolic blood pressure 134 mm[Hg] [facility] 12-09-2024 15:37-0400 Body height 167.64 cm [facility] 12-09-2024 15:37-0400 Body mass index (BMI) [Ratio] 28.9 kg/m2 [facility] 12-09-2024 15:37-0400 Body weight 81.36 kg [facility] 12-09-2024 15:37-0400 Diastolic blood pressure 74 mm[Hg] [facility] 12-09-2024 15:37-0400 Heart rate 75 /min [facility] 12-09-2024 15:37-0400 Respiratory rate 12 /min [facility] 12-09-2024 15:37-0400 SaO2% (BldA) [Mass fraction] 98 % [facility] 12-09-2024 15:37-0400 Systolic blood pressure 153 mm[Hg] [facility] 11-06-2024 09:02-0400 Body height 167.64 cm [facility] 11-06-2024 09:02-0400 Body mass index (BMI) [Ratio] 28.9 kg/m2 [facility] 11-06-2024 09:02-0400 Body weight 81.36 kg [facility] 11-06-2024 09:02-0400 Diastolic blood pressure 67 mm[Hg] [facility] 11-06-2024 09:02-0400 Heart rate 82 /min [facility] 11-06-2024 09:02-0400 Respiratory rate 24 /min [facility] 11-06-2024 09:02-0400 SaO2% (BldA) [Mass fraction] 98 % [facility] 11-06-2024 09:02-0400 Systolic blood pressure 130 mm[Hg] [facility] 10-01-2024 08:35-0500 Body height 167.64 cm [facility] 10-01-2024 08:35-0500 Body mass index (BMI) [Ratio] 28.5 kg/m2 [facility] 10-01-2024 08:35-0500 Body weight 80.34 kg [facility] 10-01-2024 08:35-0500 Diastolic blood pressure 74 mm[Hg] [facility] 10-01-2024 08:35-0500 Heart rate 67 /min [facility] 10-01-2024 08:35-0500 Respiratory rate 16 /min [facility] 10-01-2024 08:35-0500 Systolic blood pressure 155 mm[Hg] [facility] 05-28-2024 08:30-0400 Body height 167.64 cm [facility] 05-28-2024 08:30-0400 Body mass index (BMI) [Ratio] 27.1 kg/m2 [facility] 05-28-2024 08:30-0400 Body weight 76.31 kg [facility] 05-28-2024 08:30-0400 Diastolic blood pressure 89 mm[Hg] [facility] 05-28-2024 08:30-0400 Heart rate 61 /min [facility] 05-28-2024 08:30-0400 Respiratory rate 12 /min [facility] 05-28-2024 08:30-0400 Systolic blood pressure 139 mm[Hg] [facility] 01-22-2024 09:16-0400 Body height 167.64 cm [facility] 01-22-2024 09:16-0400 Body mass index (BMI) [Ratio] 29.3 kg/m2 [facility] 01-22-2024 09:16-0400 Body weight 82.55 kg [facility] 01-22-2024 09:16-0400 Diastolic blood pressure 72 mm[Hg] [facility] 01-22-2024 09:16-0400 Heart rate 64 /min [facility] 01-22-2024 09:16-0400 Respiratory rate 20 /min [facility] 01-22-2024 09:16-0400 Systolic blood pressure 131 mm[Hg] [facility] 09-28-2023 11:00-0500 Body height 167.64 cm Cecilio Ball Other [facility] Other 09-28-2023 11:00-0500 Body mass index (BMI) [Ratio] 30.24 kg/m2 Cecilio Ball Other [facility] Other 09-28-2023 11:00-0500 Body weight 85 kg Cecilio Ball Other [facility] Other 09-28-2023 11:00-0500 Respiratory rate 20 /min Cecilio Ball Other [facility] Other 09-28-2023 11:00-0500 SaO2% (BldA) [Mass fraction] 97 % Cecilio Ball Other [facility] Other 09-11-2023 10:45-0500 Body height 167.64 cm Cecilio Ball Other [facility] Other 09-11-2023 10:45-0500 Body mass index (BMI) [Ratio] 29.86 kg/m2 Cecilio Ball Other [facility] Other 09-11-2023 10:45-0500 Body temperature 97.5 [degF] Cecilio Ball Other [facility] Other 09-11-2023 10:45-0500 Body weight 83.92 kg Cecilio Ball Other [facility] Other 09-11-2023 10:45-0500 Diastolic blood pressure 81 mm[Hg] Cecilio Ball Other [facility] Other 09-11-2023 10:45-0500 Respiratory rate 20 /min Cecilio Ball Other [facility] Other 09-11-2023 10:45-0500 SaO2% (BldA) [Mass fraction] 98 % Cecilio Ball Other [facility] Other 09-11-2023 10:45-0500 Systolic blood pressure 161 mm[Hg] Cecilio Ball Other [facility] Other 08-01-2023 10:15-0500 Body height 167.64 cm Cecilio Ball Other [facility] Other 08-01-2023 10:15-0500 Body mass index (BMI) [Ratio] 29.86 kg/m2 Cecilio Ball Other [facility] Other 08-01-2023 10:15-0500 Body weight 83.92 kg Cecilio Ball Other [facility] Other 08-01-2023 10:15-0500 Diastolic blood pressure 79 mm[Hg] Cecilio Ball Other [facility] Other 08-01-2023 10:15-0500 Respiratory rate 20 /min Cecilio Ball Other [facility] Other 08-01-2023 10:15-0500 Systolic blood pressure 172 mm[Hg] Cecilio Ball Other [facility] Other 07-17-2023 10:15-0500 Body height 167.64 cm Cecilio Ball Other [facility] Other 07-17-2023 10:15-0500 Body mass index (BMI) [Ratio] 29.89 kg/m2 Cecilio Ball Other [facility] Other 07-17-2023 10:15-0500 Body weight 84.01 kg Cecilio Ball Other [facility] Other 07-17-2023 10:15-0500 Diastolic blood pressure 78 mm[Hg] Cecilio Ball Other [facility] Other 07-17-2023 10:15-0500 Respiratory rate 20 /min Cecilio Ball Other [facility] Other 07-17-2023 10:15-0500 Systolic blood pressure 172 mm[Hg] Cecilio Ball Other [facility] Other 07-10-2023 14:45-0500 Body height 167.64 cm Cecilio Ball Other [facility] Other 07-10-2023 14:45-0500 Body mass index (BMI) [Ratio] 29.47 kg/m2 Cecilio Ball Other [facility] Other 07-10-2023 14:45-0500 Body weight 82.83 kg Cecilio Ball Other [facility] Other 07-10-2023 14:45-0500 Diastolic blood pressure 80 mm[Hg] Cecilio Ball Other [facility] Other 07-10-2023 14:45-0500 Respiratory rate 20 /min Cecilio Ball Other [facility] Other 07-10-2023 14:45-0500 Systolic blood pressure 150 mm[Hg] Cecilio Ball Other [facility] Other 06-20-2023 08:30-0400 Body height 167.64 cm Cecilio Ball Other [facility] Other 06-20-2023 08:30-0400 Body mass index (BMI) [Ratio] 29.6 kg/m2 Cecilio Ball Other [facility] Other 06-20-2023 08:30-0400 Body weight 83.19 kg Cecilio Ball Other [facility] Other 06-20-2023 08:30-0400 Diastolic blood pressure 76 mm[Hg] Cecilio Ball Other [facility] Other 06-20-2023 08:30-0400 Respiratory rate 20 /min Cecilio Ball Other [facility] Other 06-20-2023 08:30-0400 Systolic blood pressure 157 mm[Hg] Cecilio Ball Other [facility] Other 05-30-2023 13:45-0400 Body height 167.64 cm Cecilio Ball Other [facility] Other 05-30-2023 13:45-0400 Body mass index (BMI) [Ratio] 28.95 kg/m2 Cecilio Ball Other [facility] Other 05-30-2023 13:45-0400 Body weight 81.38 kg Cecilio Ball Other [facility] Other 05-30-2023 13:45-0400 Diastolic blood pressure 78 mm[Hg] Cecilio Ball Other [facility] Other 05-30-2023 13:45-0400 Respiratory rate 16 /min Cecilio Ball Other [facility] Other 05-30-2023 13:45-0400 Systolic blood pressure 158 mm[Hg] Cecilio Ball Other [facility] Other 02-14-2023 08:30-0400 Body height 167.64 cm Cecilio Ball Other [facility] Other 02-14-2023 08:30-0400 Body mass index (BMI) [Ratio] 28.57 kg/m2 Cecilio Ball Other [facility] Other 02-14-2023 08:30-0400 Body weight 80.29 kg Cecilio Ball Other [facility] Other 02-14-2023 08:30-0400 Diastolic blood pressure 80 mm[Hg] Cecilio Ball Other [facility] Other 02-14-2023 08:30-0400 Respiratory rate 16 /min Cecilio Ball Other [facility] Other 02-14-2023 08:30-0400 Systolic blood pressure 135 mm[Hg] Cecilio Ball Other [facility] Other 02-01-2023 08:15-0400 Body height 167.64 cm Jose Enrique Sumter II Other [facility] Other 02-01-2023 08:15-0400 Body mass index (BMI) [Ratio] 27.44 kg/m2 Jose Enrique Sumter II Other [facility] Other 02-01-2023 08:15-0400 Body weight 77.11 kg Jose Enrique Sumter II Other [facility] Other 12-11-2022 10:30-0400 Body height 167.64 cm Cecilio Ball Other [facility] Other 12-11-2022 10:30-0400 Body mass index (BMI) [Ratio] 28.66 kg/m2 Cecilio Ball Other [facility] Other 12-11-2022 10:30-0400 Body weight 80.56 kg Cecilio Ball Other [facility] Other 12-11-2022 10:30-0400 Diastolic blood pressure 76 mm[Hg] Cecilio Ball Other [facility] Other 12-11-2022 10:30-0400 Respiratory rate 12 /min Cecilio Ball Other [facility] Other 12-11-2022 10:30-0400 Systolic blood pressure 151 mm[Hg] Cecilio Ball Other [facility] Other 11-09-2022 16:00-0400 Body mass index (BMI) [Ratio] 29.21 kg/m2 Jose Enrique Landersisle II Other [facility] Other 11-09-2022 16:00-0400 Body weight 82.1 kg Jose Enrique Landersisle II Other [facility] Other 11-09-2022 10:30-0400 Body height 167.64 cm Cecilio Ball Other [facility] Other 11-09-2022 10:30-0400 Body mass index (BMI) [Ratio] 29.23 kg/m2 Cecilio Ball Other [facility] Other 11-09-2022 10:30-0400 Body weight 82.15 kg Cecilio Ball Other [facility] Other 11-09-2022 10:30-0400 Diastolic blood pressure 79 mm[Hg] Cecilio Ball Other [facility] Other 11-09-2022 10:30-0400 Respiratory rate 20 /min Cecilio Ball Other [facility] Other 11-09-2022 10:30-0400 Systolic blood pressure 152 mm[Hg] Cecilio Ball Other [facility] Other 10-12-2022 10:00-0500 Body height 167.64 cm Cecilio Ball Other [facility] Other 10-12-2022 10:00-0500 Body mass index (BMI) [Ratio] 29.24 kg/m2 Cecilio Ball Other [facility] Other 10-12-2022 10:00-0500 Body weight 82.19 kg Cecilio Ball Other [facility] Other 10-12-2022 10:00-0500 Diastolic blood pressure 70 mm[Hg] Cecilio Ball Other [facility] Other 10-12-2022 10:00-0500 Respiratory rate 12 /min Cecilio Ball Other [facility] Other 10-12-2022 10:00-0500 Systolic blood pressure 102 mm[Hg] Cecilio Ball Other [facility] Other Encounters Encounter Date Encounter Type Care Provider Facility Start: 02-17-2025 End: 02-17-2025 ambulatory Cecilio Ball DO Work Phone: [facility] Work Phone: Start: 02-17-2025 End: 02-17-2025 [facility]: Start: 02-17-2025 End: 02-17-2025 Patient encounter procedure [facility] Start: 02-17-2025 End: 02-17-2025 ambulatory Cecilio Benjamin DO Work Phone: [facility] Work Phone: Start: 02-11-2025 End: 02-11-2025 ambulatory Cecilio Benjamin DO Work Phone: [facility] Work Phone: Start: 02-11-2025 End: 02-11-2025 Patient encounter procedure Cecilio Benjamin DO [facility] Work Phone: Start: 01-29-2025 End: 01-29-2025 ambulatory [facility] Work Phone: Start: 01-29-2025 End: 01-29-2025 Patient encounter procedure [facility] Work Phone: Start: 01-20-2025 End: 01-20-2025 ambulatory [facility] Work Phone: Start: 01-20-2025 End: 01-20-2025 Patient encounter procedure [facility] Work Phone: Start: 01-05-2025 End: 01-05-2025 ambulatory Maddie Villalobos MD Facility: [facility] Start: 12-09-2024 End: 12-09-2024 ambulatory [facility] Work Phone: Start: 12-09-2024 End: 12-09-2024 [facility] Work Phone: Start: 12-05-2024 Non-patient / [facility]-visit [facility] Work Phone: Start: 11-17-2024 End: 11-17-2024 ambulatory Maddie Villalobos MD Facility: [facility] Start: 11-06-2024 End: 11-06-2024 ambulatory [facility] Work Phone: Start: 11-06-2024 End: 11-06-2024 Patient encounter procedure [facility] Work Phone: Start: 10-01-2024 End: 10-01-2024 ambulatory [facility] Work Phone: Start: 10-01-2024 End: 10-01-2024 Patient encounter procedure [facility] Work Phone: Start: 08-18-2024 End: 08-18-2024 ambulatory Andrius Kipytautas Gieditis Facility:[facility] [place] Start: 08-04-2024 End: 08-04-2024 ambulatory Andrius Kipytautas Gaetanoitis Facility:[facility] [place] Start: 07-14-2024 End: 07-14-2024 ambulatory Andrius Shinytautas Gaetanoitis Facility:[facility] Start: 05-28-2024 End: 05-28-2024 ambulatory [facility] Work Phone: Start: 05-28-2024 End: 05-28-2024 Patient encounter procedure [facility] Work Phone: Start: 05-26-2024 End: 05-26-2024 ambulatory Andbeto Shinytautas Gaetanoitis Facility:[facility] [place] Start: 04-07-2024 End: 04-07-2024 ambulatory Andrius Kipytautas Alexraitis Facility:[facility] Start: 03-31-2024 End: 03-31-2024 ambulatory Andrius Vytautas Alexraitis Facility:[facility] [place] Start: 03-24-2024 End: 03-24-2024 ambulatory Andrius Kipytautas Gaetanoitis Facility:[facility] Start: 03-10-2024 End: 03-10-2024 ambulatory Andrius Kipytautas Giedraitis Facility:[facility] Start: 02-25-2024 End: 02-25-2024 ambulatory Andrius Wai Villalobos MD Facility:[facility] Start: 02-11-2024 End: 02-11-2024 ambulatory Maddie Villalobos MD Facility:[facility] Start: 01-28-2024 End: 01-28-2024 ambulatory Maddie Villalobos MD [facility] Start: 01-22-2024 End: 01-22-2024 ambulatory [facility] Work Phone: Start: 01-22-2024 End: 01-22-2024 Patient encounter procedure [facility] Work Phone: Start: 10-30-2023 Non-patient / Non-visit [facility] [facility] Work Phone: Start: 09-28-2023 End: 09-28-2023 ambulatory Cecilio Benjamin Other [facility] Other Start: 09-28-2023 Office outpatient vi sit 15 minutes Cecilio Ball [facility] Start: 09-28-2023 Telephone encounter Cecilio Ball [facility] Start: 09-21-2023 End: 09-21-2023 ambulatory Cecilio Brandon Other [facility] Other Start: 09-21-2023 Telephone encounter Cecilio Ball [facility] Start: 09-11-2023 End: 09-11-2023 ambulatory Cecilio Ball Other [facility] Other Start: 09-11-2023 Office outpatient vi sit 15 minutes Cecilio Ball [facility] Start: 09-11-2023 Telephone encounter Cecilio Ball [facility] Start: 09-03-2023 End: 09-03-2023 ambulatory Cecilio Ball Other [facility] Other Start: 09-03-2023 Telephone encounter Cecilio Ball [facility] Start: 08-03-2023 End: 08-03-2023 ambulatory Cecilio Ball Other [facility] Other Start: 08-03-2023 Telephone encounter Ceciilo Ball [facility] Start: 08-01-2023 End: 08-01-2023 ambulatory Cecilio Ball Other [facility] Other Start: 08-01-2023 Office outpatient vi sit 15 minutes Cecilio Ball [facility] Start: 07-17-2023 End: 07-17-2023 ambulatory Cecilio Ball Other [facility] Other Start: 07-17-2023 Office outpatient vi sit 15 minutes Cecilio Ball [facility] Start: 07-10-2023 End: 07-10-2023 ambulatory Cecilio Ball Other [facility] Other Start: 07-10-2023 Office outpatient vi sit 15 minutes Cecilio Ball [facility] Start: 06-20-2023 End: 06-20-2023 ambulatory Cecilio Ball Other [facility] Other Start: 06-20-2023 Office outpatient vi sit 25 minutes Cecilio Ball [facility] Start: 06-15-2023 End: 06-15-2023 ambulatory Cecilio Ball Other [facility] Other Start: 06-15-2023 Telephone encounter Cecilio Ball [facility] Start: 05-30-2023 End: 05-30-2023 ambulatory Cecilio Ball Other [facility] Other Start: 05-30-2023 Office outpatient vi sit 15 minutes Cecilio Ball [facility] Start: 03-20-2023 Telephone encounter Delio Jaeger DO Work Phone: [facility] Comment on above: Follow Up Phone Call Start: 03-15-2023 End: 03-15-2023 ambulatory DELIO JAEGER Facility:[facility] Start: 02-27-2023 Orders Only Delio Marcos DO Work Phone: Procedures Comment on above: Pseudoclaudication s yndrome (Primary Dx); Lumbar radiculopathy Start: 02-26-2023 Telephone encounter Delio Jaeger DO Work Phone: [facility] Comment on above: Procedure Start: 02-19-2023 Telephone encounter Delio Jaeger DO Work Phone: [facility] Comment on above: Appointment Start: 02-14-2023 End: 02-14-2023 ambulatory Cecilio Benjamin Other [facility] Other Start: 02-14-2023 Patient encounter procedure Cecilio Benjamin [facility] Start: 02-13-2023 End: 02-13-2023 ambulatory Cecilio Benjamin Other [facility] Other Start: 02-13-2023 Telephone encounter Cecilio Benjamin HOW[facility] Start: 02-08-2023 End: 02-08-2023 ambulatory Cecilio Benjamin Other [facility] Other Start: 02-08-2023 Telephone encounter Cecilio Benjamin [facility] Start: 02-01-2023 End: 02-01-2023 ambulatory Jose Enrique Leblanc II Other [facility] Other Start: 02-01-2023 Office outpatient vi sit 25 minutes Jose Enrique Leblanc II [facility] Start: 12-11-2022 End: 12-11-2022 ambulatory Cecilio Benjamin Other [facility] Other Start: 12-11-2022 Office outpatient vi sit 15 minutes Cecilio Benjamin [facility] Start: 11-09-2022 End: 11-09-2022 Patient encounter procedure MD Jose Enrique Leblanc II Work Phone: [facility] Start: 11-09-2022 End: 11-09-2022 ambulatory MD Jose Enrique Leblanc II Work Phone: [facility] Work Phone: Start: 11-09-2022 Office outpatient ne w 45 minutes Jose Enrique Leblanc II [facility] Start: 11-09-2022 Office outpatient vi sit 15 minutes Cecilio Benjamin [facility] Start: 11-05-2022 End: 11-05-[address] CECILIO BENJAMIN Facility:[facility] Start: 10-12-2022 End: 10-12-2022 ambulatory Cecilio Benjamin Other [facility] Other Start: 10-12-2022 Office outpatient vi sit 25 minutes Cecilio Benjamin [facility] Start: 09-27-2022 End: 09-27-2022 ambulatory Cecilio Benjamin Other [facility] Other Start: 09-27-2022 Telephone encounter Cecilio Benjamin [facility] Start: 09-26-2022 End: 09-27-[address] CECILIO BENJAMIN Facility:[facility] Start: 08-25-2022 End: 08-25-2022 ambulatory Cecilio Benjamin Other [facility] Other Start: 08-25-2022 Telephone encounter Cecilio Benjamin [facility] Start: 08-10-2022 End: 08-10-[address] CECILIO BENJAMIN Facility:[facility] Start: 02-09-2022 End: 02-10-[address] CECILIO BENJAMIN Facility:[facility] Start: 12-06-2021 End: 12-07-[address] CECILIO BENJAMIN Facility:[facility] Start: 01-22-2018 End: 04-20-2018 Patient encounter [id number] AUGUSTINE BENJAMIN Facility:[facility] Procedures Date Procedure Procedure Detail Performing Clinician Start: 02-17-2025 Plain X-ray of left wrist Cecilio Benjamin DO Work Phone: Start: 11-09-2022 Pelvis X-ray MD Jose Enrique Leblanc II Work Phone: Start: 11-09-2022 Radiologic examinati on of knee MD Jose Enrique Leblanc II Work Phone: Plan of Treatment Date Care Activity Detail Author Start: 02-17-2025 Plain X-ray of left wrist XR wrist LT min 3V* [facility] Start: 02-17-2025 XR Wrist - left GE 3 Views [facility] Start: 01-22-2024 Patient referral [facility] Work Phone: Start: 04-20-2023 Influenza vaccination INFLUENZA (#1) [facility] Start: 10-01-2022 COVID-19 VACCINE (5 - Moderna series) COVID-19 VACCINE (5 - Moderna series) [facility] Start: 08-20-2022 ADVANCE DIRECTIVE DISCUSSION ADVANCE DIRECTIVE DISCUSSION [facility] Start: 08-20-2022 DEPRESSION ASSESSMENT DEPRESSION ASS ESSMENT [facility] Start: 09-19-2021 COVID-19 VACCINE (4 - Booster for Moderna series) COVID-19 VACCINE (4 - Booster for Moderna series) [facility] Start: 09-19-2021 COVID-19 VACCINE (4 - Moderna series) COVID-19 VACCINE (4 - Moderna series) [facility] Start: 01-02-2021 DIABETES SCREEN DIABETES SCREEN [facility] Start: 1991 SHINGRIX VACCINE (1 of 2) SHINGRIX VACCINE (1 of 2) [facility] Start: 1960 Urine microalbumin profile DTAP,TDAP,TD (1 - Tdap) [facility] Start: 1959 SPIROMETRY SPIROMETRY [facility] Start: 1947 PNEUMOCOCCAL: 65+ (1 - PCV) PNEUMOCOCCAL: 65+ (1 - PCV) [facility] Comprehensive metabo lic 2000 panel - Serum or Plasma [facility] Patient referral [facility] Work Phone: SPINE INTERVENTION PROCEDURE SPINE INTERVENTION PROCEDURE Procedures Routine Spinal stenosis, lumbar region with neurogenic claudication Lumbar radiculopathy, chronic Ordered: 02/19/2023 [facility] Work Phone: Comment on above: Ordered: 02/19/2023 XR Wrist - left GE 3 Views [facility] Immunizations Immunization Date Immunization Notes Care Provider Fa cility 05-28-2024 influenza, high dose seasonal, preservative-free [facility] 05-30-2023 COVID-19 Vaccine Moderna - Documentation Purposes Only Cecilio Benjamin Other [facility] 05-30-2023 influenza virus vaccine, unspecified formulation [facility] 05-30-2023 influenza, high dose seasonal, preservative-free Cecilio Benjamin Other [facility] Other 06-13-2022 influenza virus vaccine, split virus (incl. purified surface antigen) Cecilio Benjamin Other [facility] Other 06-13-2022 influenza virus vaccine, unspecified formulation [facility] 06-13-2022 influenza, high dose seasonal, preservative-free Jose Enrique Leblanc II Other [facility] Other 05-31-2022 COVID-19 Pfizer (bivalent) Jose Enrique Sumter II Other [facility] 05-31-2022 COVID-19 Pfizer (Pediatric) Cecilio Benjamin Other [facility] 07-25-2021 COVID-19 Vaccine Moderna - Documentation Purposes Only Jose Enrique Sumter II Other [facility] 05-03-2021 zoster vaccine recombinant Jose Enrique Sumter II Other [facility] 05-03-2021 zoster vaccine, live Benjami n Ball Other [facility] 01-28-2021 zoster vaccine recombinant Jose Enrique Sumter II Other [facility] 01-28-2021 zoster vaccine, live Benjami n Ball Other [facility] 10-25-2020 COVID-19 Vaccine Moderna - Documentation Purposes Only Jose Enrique Benji II Other [facility] 09-27-2020 COVID-19 Vaccine Moderna - Documentation Purposes Only Jose Enrique Benji II Other [facility] 05-24-2020 influenza virus vaccine, split virus (incl. purified surface antigen) Cecilio Benjamin Other [facility] Other 05-24-2020 influenza virus vaccine, unspecified formulation [facility] 01-03-2019 diphtheria, tetanus toxoids and acellular pertussis vaccine, unspecified formulation Cecilio Benjamin Other [facility] 12-25-2018 pneumococcal polysaccharide vaccine, 23 valent Jose Enrique Sumter II Other [facility] 04-30-2018 influenza virus vaccine, split virus (incl. purified surface antigen) Cecilio Benjamin Other [facility] Other 04-30-2018 influenza virus vaccine, unspecified formulation [facility] 04-09-2017 influenza virus vaccine, split virus (incl. purified surface antigen) Cecilio Benjamin Other [facility] Other 04-09-2017 influenza virus vaccine, unspecified formulation [facility] 05-31-2016 zoster vaccine, live Jose Enrique Sumter II Other [facility] 05-13-2016 influenza virus vaccine, split virus (incl. purified surface antigen) Cecilio Benjamin Other [facility] Other 05-13-2016 influenza virus vaccine, unspecified formulation [facility] 05-09-2015 influenza virus vaccine, split virus (incl. purified surface antigen) Cecilio Benjamin Other [facility] Other 05-09-2015 influenza virus vaccine, unspecified formulation [facility] 03-06-2015 pneumococcal conjuga te vaccine, 13 valent Jose Enrique Benji II Other [facility] 05-07-2014 tetanus and diphther ia toxoids, adsorbed, preservative free, for adult use (5 Lf of tetanus toxoid and 2 Lf of diphtheria toxoid) Cecilio Benjamin Other [facility] 04-23-2013 tetanus and diphther ia toxoids, adsorbed, preservative free, for adult use (5 Lf of tetanus toxoid and 2 Lf of diphtheria toxoid) Cecilio Benjamin Other [facility] 08-21-2012 pneumococcal polysaccharide vaccine, 23 valent Cecilio Benjamin Other [facility] 12-12-2011 zoster vaccine, live Jose Enrique Sumter II Other [facility] Payers Date Payer Category Payer Self-pay 2025 Unknown [id number] 2018 Medicare [id number] 2006 Medicare [id number] 2006 Unknown [id number] 1959 Medicare [id number] 2.1 [id number] 1959 Unknown [id number] 2.16. 840.1.185535.19 1941 Unknown [id number] 2.16.84 0.1.090867.3.579.2.593 1941 Unknown [id number] 2.16.84 0.1.515032.3.579.2.593 1941 Unknown [id number] 2.16.84 0.1.350370.3.579.2.593 1941 Unknown [id number] 2.16.84 0.1.354896.3.579.2.593 1941 Unknown [id number] 2.16.84 0.1.661441.3.579.2.593 1941 Unknown [id number] 2.16. 840.1.057184.3.579.2.196 1941 Unknown [id number] 2.16. 840.1.518725.3.579.2.196 1941 Unknown [id number] 2.16. 840.1.063644.3.579.2.196 1941 Unknown [id number] 2.16. 840.1.588669.3.579.2.196 1941 Unknown [id number] 2.16. 840.1.555003.3.579.2.196 1941 Unknown [id number] 2.16. 840.1.561092.3.579.2.196 1941 Unknown [id number] 2.16. 840.1.135336.3.579.2.196 1941 Unknown [id number] 2.16. 840.1.360760.3.579.2.196 1941 Unknown [id number] 2.16. 840.1.313736.3.579.2.196 1941 Unknown [id number] 2.16. 840.1.049138.3.579.2.196 1941 Unknown [id number] 2.16. 840.1.343866.3.579.2.196 1941 Unknown [id number] 2.16. 840.1.532482.3.579.2.196 1941 Unknown [id number] 2.16. 840.1.027955.3.579.2.196 Unknown [id number] 2.16.8 40.1.539345.3.579.2.531 Social History Date Type Detail Facility Start: 05-09-2021 End: 03-15-2023 Sex Assigned At [facility] Start: 1940 Sex Assigned At Male F [facility] Start: 06-13-2017 End: 01-22-2024 Tobacco smoking status COIS Never smoked tobacco [facility] Start: 06-13-2017 Tobacco use and exposure Smokeless tobacco non-user [facility] Start: 05-09-2021 Alcohol intake Current drinke r of alcohol (finding) [facility] Start: 12-11-2017 Alcohol Comment [facility] Start: 1940 [facility] Start: 05-09-2021 End: 03-15-2023 History of Social function [facility] Adult Depression Screening Assessment 1 [facility] Start: 10-01-2024 End: 01-20-2025 Sex Male (finding) [facility] Medical Equipment Procedure Code Equipment Code Equipment Origin al Text Equipment Identifier Dates [place] Swivelock Tenodesis 8mm Biocomposite 19.5mm Suture [place] Eyelet - [id number] Start: 06-29-2017 Sleeve V40 +0mm Offset [place] Taper Titanium Adapter Hip - [id number] Start: 01-01-2018 Screw Trident Secur-Fit Torx 6.5mm Titanium 20mm Bone Sterile Acetabular - [id number] Start: 01-01-2018 Clinical Notes 08-25-2022 to 12-09-2024 Note Date & Type Note Facility 12-09-2024 Evaluation note Diagnosis Onset Date Resolution Benign prostatic hyperplasia with lower urinary tract [...] 10:43am Other fractures of lower end of left radius, initial encounter for closed acute January 29, 2025 8:45am Benign prostatic hyperplasia with lower urinary tract symptoms acute January 8:59am Chronic bronchitis, simple acute February 11, 2025 8:59am Chronic kidney disease, stage 3a acute February 11, 2025 8:59am Elevated cholesterol acute February 11, 2025 8:59am Generalized anxiety disorder acute February 11, 2025 8:59am Hypertension acute February 11, 8:59am IFG (impaired fasting glucose) acute February 11, 2025 8:59am Lumbar spondylolysis acute February 11, 2025 8:59am Nonfamilial nocturnal leg cramps acute February 11, 2025 8:59am Obstructive sleep apnea acute J une 2024 8:59am Medicare annual wellness visit, subsequent noneactive February 11 8:59am [facility] Work Phone: 1(850) 923-895304-22-2025 Evaluation note* Diagnosis Onset Date Resolution Status Admit Date Benign prostatic hyperplasia with lower urinary tract [...] exacerbation of chroni c obstructive airways disease acute January 20, 2025 10:43am Chronic kidney disease, stag e 3a acute January 20, 2025 1 0:43am Contusion of left wrist acute J une 2024 10:43am Hypertension acute January 20 10:43am Left wrist pain acute January 20, 2025 10:43am Obstructive sleep apnea acute J une 2024 10:43am Other fractures of lower end of left radius, initial encounter for closed acute January 29, 2025 8:45am Benign prostatic hyperplasia with lower urinary tract symptoms acute February 11, 2025 8:59am Chronic bronchitis, simple acute February 11, 2025 8:59am Chronic kidney disease, stag e 3a acute February 11, 2025 8:59am Dizziness on standing acute Jan 8:59am Elevated cholesterol acute February 11, 2025 8:59am Generalized anxiety disorder acute February 11, 2025 8:59am Hypertension acute February 11, 8:59am IFG (impaired fasting glucose) acute February 11, 2025 8:59am Lumbar spondylolysis acute February 11, 2025 8:59am Nocturnal leg cramps acute February 11, 2025 8:59am Obstructive sleep apnea acute J une 2024 8:59am Medicare annual wellness visit, subsequent noneactive February 11 8:59am Other fractures of lower end of left radius, initial encounter for closed acute February 17 9:49am [facility] Work Phone: 1(190) 534-268103-20-2025 Evaluation note* Diagnosis Onset Date Resolution Status Admit Date Chronic obstructive pulmonar y disease with (acute) lower respiratory infection noneactive October 8:56am Acute exacerbation of chroni c obstructive airways disease noneactive Justo 2024 8:56am Benign prostatic hyperplasia with lower [...] exacerbation of chroni c obstructive airways disease acute January 20, 2025 10:43am Chronic kidney disease, stag e 3a acute January 20, 2025 1 0:43am Contusion of left wrist acute J une 2024 10:43am Hypertension acute January 20 10:43am Left wrist pain acute January 20, 2025 10:43am Obstructive sleep apnea acute J [facility] 2024 10:43am Other fractures of lower end of right radius, initial encounter for closed acute January 29, 2025 8:45am [facility] Work Phone: 1(760) 413-344603-20-2025 Evaluation note* Diagnosis Onset Date Resolution Status [...] 0:43am Contusion of left wrist acute J [facility] 2024 10:43am Hypertension acute January 20 10:43am Left wrist pain acute January 20, 2025 10:43am Obstructive sleep apnea acute J [facility] 2024 10:43am [facility] Work Phone: 1(779) 292-501702-12-2025 Evaluation note* Diagnosis Onset Date Resolution Status Admit Date Chronic bronchitis, simple acute October 01, 2024 8:30am Chronic kidney disease, stag e 3a acute October 01, 2 025 8:30am Generalized anxiety disorder acute October 01, 2024 8:30am Hypertension acute September 8:30am IFG (impaired fasting glucose) acute October 01 2 025 8:30am Lumbar spondylolysis acute Febr ua2024 8:30am Obstructive sleep apnea acute 2024 8:30am Chronic obstructive pulmonar y disease with (acute) lower respiratory infection noneactive October 8:56am Acute exacerbation of chroni c obstructive airways disease noneactive Justo h 2024 8:56am [facility] Work Phone: 1(879) 583-849602-12-2025 Evaluation note* Diagnosis Onset Date Resolution Status [...] of chroni c obstructive airways disease noneactive Novi 2024 3:30pm [facility] Work Phone: 1(598) 372-541502-12-2025 Evaluation note* Diagnosis Onset Date Resolution Status Admit Date Chronic bronchitis, simple acute October 01, 2024 8:30am Chronic kidney disease, stag e 3a acute October 01 025 8:30am Generalized anxiety disorder acute October 01, 2024 8:30am Hypertension acute September 8:30am IFG (impaired fasting glucose) acute October 01, 2024 8:30am Lumbar spondylolysis acute 2024 8:30am Obstructive sleep apnea acute 2024 8:30am [facility] Work Phone: 1(503) 598-320106-04-2024 Evaluation note* Diagnosis Onset Date Resolution Status Chronic bronchitis, simple a cute Chronic kidney disease, stage 3a acute Elevated cholesterol acute Generalized anxiety disorder acute Hypertension acute Lumbar spondylolysis acute Obstructive sleep apnea acut e Medicare annual wellness visit, subsequent noneactive [facility] Work Phone: 1(127) 194-983202-09-2024 Evaluation note* Encounter Date Diagnosis Assessment Notes [...] and clinically improving, no further treatment necessary [facility] Other 02-02-2024 Evaluation note* Encounter Date Diagnosis Assessment Notes Treatment Notes Treatment Clinical Notes Sep, Carotid bruit, unspecified laterality (ICD-10 - R09.89) [facility] Other 01-23-2024 Evaluation note* Encounter Date Diagnosis [...] tid Initiate Prednisone _update office on Sunday [facility] Other 01-15-2024 Evaluation note* Encounter Date Diagnosis Assessment Notes Treatment Notes Treatment Clinical Notes Aug, JONATHAN (generalized anxiety disorder) (ICD-10 - F41.1) [facility] Other 12-13-2023 Evaluation note* Encounter Date Diagnosis [...] best 2/3 readings w/ goal < 135/85 [facility] Other 11-28-2023 Evaluation note* Encounter Date Diagnosis [...] daily for blisters and ulcerations. Moisturizers daily [facility] Other 11-21-2023 Evaluation note* Encounter Date Diagnosis [...] Call if develop increased pain or erythema [facility] Other 11-01-2023 Evaluation note* Encounter Date Diagnosis [...] very active. No change in medical treatment [facility] Other 10-27-2023 Evaluation note* Encounter Date Diagnosis Assessment Notes Treatment Notes Treatment Clinical Notes May, JONATHAN (generalized anxiety disorder) (ICD-10 - F41.1) [facility] Other 10-11-2023 Evaluation note* Encounter Date Diagnosis [...] They may safely use Tylenol as needed. [facility] Other 08-01-2023 Miscellaneous Notes* Telephone Encounter - Neida Caballero MA - 03/20/2023 12:26 PM EDT DATE OF SERVICE: 03/15/2023 PATIENT'S PHONE NUMBERS: [phone] (home) OR @[email or web address]@ PROVIDER: Dr. Jaeger PROCEDURE: Elective Pain Management Procedure Left message on machine Asked pt to call back and speak with the specialty triage nurse with update. Please obtain percentage better and the duration of improvement. Please inquire if there were any problems afterwards. Neida Brink documented in [facility] Miscellaneous Notes* Telephone Encounter - Linda Knox LPN - 02/26/2023 4:42 PM EDT Spoke to patient in [facility] to pre procedure instructions. 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 Pt advised to arrive 30 min [...] okay to take. Advised on location of [address] Pt will receive a follow up call several days after by a steamboat captain. If you experience any increase in weakness, difficulty walking or significant increase in pain thatlast more than 4 hours, please proceed to the Emergency Room and tell them you had a spine procedure done recently. Additionally, call us and notify us of these symptoms. Please call [phone] if you have any questions. Pt verbalized understanding. documented in this encounter[facility]07-[facility]23 Miscellaneous Notes* Telephone Encounter - Linda Knox LPN - 02/19/2023 11:57 AM EDT Order approved Spoke to daughter in [facility] to pre procedure instructions. Daughter given scheduling number [phone] Pt must have a retail delivery driver. Pt advised to arrive 30 min prior to the time given by the hair tinter. Pt advised will also receive a call the day before from the surgery center to confirm date/time. Pt can eat and drink as normal. and Pt can take medications as normal. No alcohol 24 hours prior. Pt is on ASA.- 81 mg okay to take. and must Advised on location of [address] Pt will receive a follow up call several days after by a steamboat captain. If you experience any increase in weakness, difficulty walking or significant increase in pain thatlast more than 4 hours, please proceed to the Emergency Room and tell them you had a spine procedure done recently. Additionally, call us and notify us of these symptoms. Please call [phone] if you have any questions. Pt verbalized understanding. * Telephone Encounter - Linda Knox LPN - 02/19/2023 9:43 AM EDT Spine Intervention order formatted for review * Telephone Encounter - Camilla Jarrell Pss - 02/19/2023 9:18 AM EDT Neisha Thorpe daughter Celi is calling Delio Jaeger, DO today to ask about getting patient a shot again - Last one in 2020 Please advise what patient needs as far as OV or MRI or if he can be scheduled for procedure - daughter states she left a VM somewhere last week but never heard back Please call Celi as patient cannot hear well [phone] Patient has been identified by name and birthdate. Duration of symptoms: N/A Person calling: daughter: Celi Call patient at: N/A [phone] (home) [phone] (cell) Was an appointment scheduled: No Closing statement: Results or non-symptom based questions: Thank you for calling [facility], your call will be returned within the next business day. Camilla Jarrell Pss documented in this encounterSalem [facility] Hospital06-28-[facility]23 Evaluation note* Encounter Date Diagnosis Assessment [...] (ICD-10 - F41.1) Healthy diet, keep active [facility] Other 06-22-2023 Evaluation note* Encounter Date Diagnosis Assessment Notes Treatment Notes Treatment Clinical Notes Jan, Elevated cholesterol (ICD-10 - E78.00) Jan, Stage 3a chronic kidney disease (ICD-10 - N18.31) Jan, Primary hypertension (ICD-10 - I10) Jan, Screening PSA (prostate specific antigen) (ICD-10 - Z12.5) Jan, High risk medication use (ICD-10 - Z79.899) [facility] Other 06-15-2023 Evaluation note* Encounter Date Diagnosis [...] this time 6. Follow up as needed [facility] Other 04-24-2023 Evaluation note* Encounter Date Diagnosis [...] use of statin, experiencing ADR and stopped [facility] Other 03-23-2023 Evaluation note* Encounter Date Diagnosis [...] - M17.12) Quad exercises, ice/heat and Tylenol [facility] Other 03-23-2023 Evaluation note* Encounter Date Diagnosis [...] injection well. 6. 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) [facility] Other 01-06-2023 Evaluation note* Encounter Date Diagnosis Assessment Notes Treatment Notes Treatment Clinical Notes Aug, Carotid bruit, unspecified laterality (ICD-10 - R09.89) [facility] Other Evaluation noteNo assessment information available [facility] Work Phone: Evaluation noteNo InformationNort Girls Guide To Other evaluation note* Diagnosis Spinal stenosis, lumbar region with neurogenic claudication- Primary Lumbar radiculopathy, chronic Thoracic or lumbosacral neuritis or radiculitis, unspecified documented [facility] this encounter [facility] Diagnosis Pseudoclaudication syndrome- Primary Spinal stenosis, lumbar region, with neurogenic claudication Lumbar radiculopathy Thoracic or lumbosacral neuritis or radiculitis, unspecified Pseudoclaudication syndrome Spinal stenosis, lumbar region, with neurogenic claudication Lumbar radiculopathy Thoracic or lumbosacral neuritis or radiculitis, unspecified documented in this encounter [facility]* Diagnosis Onset Date Resolution Status Chronic bronchitis, simple a cute Chronic kidney disease, stage 3a acute Elevated cholesterol acute Generalized anxiety disorder acute Hypertension acute Lumbar spondylolysis acute Obstructive sleep apnea acut e [facility] Work Phone: History general Narrative - [...] JANELLE 06/2017 Hospitalization History see surgical history [facility] Other Hospital Discharge instructionsAmbulatory Orders* Referral to Pain Management Location: None Selected [facility] Work Phone: Reason for referral (narrative)No reason for referral information availableAdams [facility] Work Phone: Summary Purpose Family History [...] sleep apnea January 20, 2025 1 0:43am Chief Complaint Admit Date ER follow up December 09, 2024 3:3 0pm Wheezing January 20, 2025 10:[address] BENJAMIN LT RADIUS FX WX [facility] January 29, 2025 8:45am Wellness February 11, 2025 8:59 am Reason for Visit Admit Date Benign prostatic hyperplasia with lower urinary tract [...] 0:43am Other fractures of lower end of left radius, initial encounter for closed January 29, 2025 8:45am Benign prostatic hyperplasia with lower urinary tract symptoms February 11, 2025 8:59am Chronic bronchitis, simple February 11 8:59am Chronic kidney disease, stage 3a February 112024 8:59am Elevated cholesterol February 11, 2025 8:5 9am Generalized anxiety disorder February 11, 2025 8:59am Hypertension February 11, 2025 8:59 am IFG (impaired fasting glucose) January 8:59am Lumbar spondylolysis February 11, 2025 8:5 9am Nonfamilial nocturnal leg cramps February 112024 8:59am Obstructive sleep apnea February 11, 2025 8:59am Medicare annual wellness visit, subseque nt February 11, 2025 8:59am Chief Complaint Admit Date ER follow up December 09, 2024 3:3 0pm Wheezing January 20, 2025 10:[address] BENJAMIN LT RADIUS FX WX TBH January 29, 2025 8:45am Wellness February 11, 2025 8:59 am S52.592A - Other fractures of lower end of left ra February 17, 2025 7:54am 3 WEEKS February 17, 2025 9:49a m Reason for Visit Admit Date Benign prostatic hyperplasia with lower urinary tract [...] 0:43am Other fractures of lower end of left radius, initial encounter for closed January 29, 2025 8:45am Benign prostatic hyperplasia with lower urinary tract symptoms February 11, 2025 8:59am Chronic bronchitis, simple February 11 8:59am Chronic kidney disease, stage 3a February 112024 8:59am Dizziness on standing February 11, 2025 8: 59am Elevated cholesterol February 11, 2025 8:5 9am Generalized anxiety disorder February 11, 2025 8:59am Hypertension February 11, 2025 8:59 am IFG (impaired fasting glucose) January 8:59am Lumbar spondylolysis February 11, 2025 8:5 9am Nocturnal leg cramps February 11, 2025 8:5 9am Obstructive sleep apnea February 11, 2025 8:59am Medicare annual wellness visit, subseque nt February 11, 2025 8:59am Other fractures of lower end of left radius, initial encounter for closed February 17, 2025 9:49am Additional Source Comments (unrecognized sect ion and content) No Status Records FoundNo Status Records FoundNo Status Records FoundNo Status Records FoundNo Status Records FoundNo Status Records FoundNo Status Records Found INFORMATION SOURCE (unrecogn ized section and content) DATE CREATED AUTHOR 02/06/2018 [facility] DATE CREATED AUTHOR AUTHOR'S ORGANIZ ATION 06/10/2018 [facility] DATE CREATED AUTHOR AUTHOR'S ORGANIZ ATION 11/06/2022 [facility] DATE CREATED AUTHOR AUTHOR'S ORGANIZ ATION 03/15/2023 [facility] DATE CREATED AUTHOR AUTHOR'S ORGANIZ ATION 03/22/2023 [facility] DATE CREATED AUTHOR AUTHOR'S ORGANIZ ATION 01/16/2025 [facility] DATE CREATED AUTHOR AUTHOR'S ORGANIZ ATION 02/21/2025 [facility] REASON FOR VISIT (unrecogniz ed section and [...] DO Primary Care Provider Active Start: December 09, 2024 End: December 09, 2024 Cecilio Benjamin DO Attending Provider Active Sta rt: December 09, 2024 End: December 09, 2024 Team Status: Inactive Member Role Status Dates Cecilio Benjamin DO Primary Care Provider Active Start: January 20, 2025 End: January 20, 2025 Cecilio Benjamin DO Attending Provider Active Sta rt: January 20, 2025 End: January 20, 2025 Team Status: Inactive Member Role Status Dates Cecilio Benjamin DO Primary Care Provider Active Start: January 29, 2025 End: January 29, 2025 Faheem Sevilla MD Attending Provider Active Star t: January 29, 2025 End: January 29, 2025 Team Status: Inactive Member Role Status Dates Cecilio Benjamin DO Primary Care Provider Active Start: February 11, 2025 End: February 11, 2025 Cecilio Benjamin DO Attending Provider Active Sta rt: February 11, 2025 End: February 11, 2025 Team Status: Inactive Member Role Status Dates Cecilio Benjamin DO Primary Care Provide r, Attending Provider Active Start: May 28, 2024 End: May 28, 2024 Team Status: Inactive Member Role Status Dates Jose Enrique Leblanc II, MD Attending Provider Active 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 [employer] Relationship Specialty Start Date End Date Cecilio Benjamin DO PCP - General Internal Medicine 09/04/13 [employer] Relationship Specialty Start Date End Date Cecilio Benjamin DO PCP - General Internal Medicine 09/04/13 [employer] Relationship Specialty Start Date End Date Cecilio Benjamin DO PCP - General Internal Medicine 09/04/13 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 [employer] Relationship Specialty Start Date End Date Cecilio Benjamin PCP - General Internal Medicine 09/04/13 Team [...] 2024 End: November 06, 2024 Team Status: Inactive Member Role Status Vaughn Benjamin DO Primary Care Provide r, Attending Provider Active Start: December 09, 2024 End: December 09, 2024 Team Status: Inactive Member Role Status Vaughn Benjamin DO Primary Care Provide r, Attending Provider Active Start: January 20, 2025 End: January 20, 2025 Team Status: Active Member Role Status Dates Faheem Sevilla MD Attending Provider Active Star t: February 17, 2025 Cecilio Benjamin DO Primary Care Provider Active Start: February 17, 2025 Team Status: Inactive Member Role Status Dates Cecilio Benjamin DO Primary Care Provider Active Start: February 17, 2025 End: February 17, 2025 Faheem Sevilla MD Attending Provider Active Star t: February 17, 2025 End: February 17, 2025 Team Status: Inactive Member Role Status Vaughn Sevilla MD Attending Provider Active Star t: February 17, 2025 End: February 17, 2025 Cecilio Benjamin DO Primary Care Provider Active Start: February 17, 2025 End: February 17, 2025 Goals (unrecognized section and content) Goals may be documented in a n alternate section Source Comments (unrecognize d section and content) In the event this informatio n is protected by the Federal Confidentiality of Alcohol and Drug Abuse Patient Records regulations: The Federal rules restrict any use of the information to criminally investigate or prosecute any alcohol or drug abuse patient.[facility] HospitalIn the event this information is protected by the Federal Confidentiality of Alcohol and Drug Abuse Patient Records regulations: The Federal rules restrict any use of the information to criminally investigate or prosecute any alcohol or drug abuse patient.[facility] HospitalIn the event this information is protected by the Federal Confidentiality of Alcohol and Drug Abuse Patient Records regulations: The Federal rules restrict any use of the information to criminally investigate or prosecute any alcohol or drug abuse patient.[facility] HospitalIn the event this information is protected by the Federal Confidentiality of Alcohol and Drug Abuse Patient Records regulations: The Federal rules restrict any use of the information to criminally investigate or prosecute any alcohol or drug abuse patient.[facility] FOR RECORDS PERTAINING TO PATIENTS WHO [...] BE BASED ON THE PRIMARY CLINICAL RECORDS. [facility]. provides no warranty or guarantee of the accuracy or completeness of information in this document.
[2025-03-21 14:09] VITALS: BP 144/79; PULSE 77; TEMP 36.4; O2SAT 96; BMI 29.0
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
[2025-03-21] MEDS: CEFAZOLIN SODIUM/DEXTROSE,ISO 1 GM/50 ML PREMIX IV (15:01)
[2025-03-21 15:02] LABS: Anion Gap 9.0; Blood Urea Nitrogen 19.0 mg/dL (7.0-18.0); Calcium 9.0 mg/dL (8.5-10.1); Carbon Dioxide 32.4 mmol/L (21.0-32.0); Chloride 103 mmol/L (98-107); Estimated GFR (African America >60 (>=60 mL/min/1.73m^2); Estimated GFR (Non-African Ame 50 (>=60 mL/min/1.73m^2); Glucose 109 mg/dL (74-106); Potassium 4.4 mmol/L (3.5-5.1); Sodium 140 mmol/L (136-145)
[2025-03-21 15:04] LABS: Hematocrit 40.7 % (42.0-54.0); Hemoglobin 14.1 g/dL (14.0-18.0); Immature Granulocytes Abs Auto 0.02 10^3/uL (0.00-0.03); Immature Granulocytes Pct Auto 0.3 % (0.0-0.5); Lymphocytes Absolute Auto 1.2 10^3/uL (1.2-3.8); Mean Corpuscular HGB Conc 34.6 g/dL (29.9-35.2); Mean Corpuscular Hemoglobin 32.9 pg (25.9-34.0); Mean Corpuscular Volume 94.9 fL (80.0-94.0); Platelet Count 136 10^3/uL (150-450); Red Blood Count 4.29 10^6/uL (4.70-6.10); White Blood Count 8.0 10^3/uL (4.0-11.0)
[2025-03-21] MEDS: ACETAMINOPHEN 325 MG TABLET 650 MG PO (15:30)
== END 2025-03-21 15:37 | disposition home or self-care (01) ==
PROVIDERS: Physician Assistant; Emergency Provider Emergency Medicine; PCP Internal Medicine
DX: T24.231A Burn of second degree of right lower leg, initial encounter (principal); M79.604 Pain in right leg; X17.XXXA Contact with hot engines, machinery and tools, initial encounter; Z90.49 Acquired absence of other specified parts of digestive tract; Z96.649 Presence of unspecified artificial hip joint
CPT/HCPCS: 36415; 80048; 85025; 96365; 99284; J0690

== ENCOUNTER 2025-03-30 10:57 | Day surgery (SDC) | payer MEDICARE, OTHER, SELFPAY ==
--- OUTSIDE RECORDS SUMMARY | 2025-03-30 11:01 | XMS_ITS | Clinical Summary ---
Author Organization [facility] tem Address [facility] [id number] [address] [place] [address] Care Team Providers Care Top Loader Name Role Phone Cecilio Benjamin DO Primary Care Provider [phone] Allergies Active Allergy Reactions Criticality Noted Date [...] Medical Devices Not on file Insurance [employer] [place] [employer] Care Teams Top Loader Relationship Specialty Start Date End Date Cecilio Benjamin DO [address] [place] [id number] PCP - General 12/20/16
--- OUTSIDE RECORDS SUMMARY | 2025-03-30 11:01 | XMS_ITS | Clinical Summary ---
Author Organization [facility] [place] [address] Care Team Providers Care Electric Transfer Operator Name Role Phone Cecilio Benjamin DO Primary Care Provider Allergies Active Allergy Reactions Criticality Noted Date [...] (10/30/2017): Added automatically from request for surgery [id number] Complete tear of right rotator cuff 05/17/2017 Overview (05/17/2017): Added automatically from request for surgery [id number] Incomplete tear of right rotator cuff 01/11/2017 [...] is lower risk 4 03/15/2023 Data from: https://www.neighborhoodatlas.[email or web address] Last address used for calculation [address] [...] 01/02/2018, 0 01/01/2018, 12/11/2017, Additional history exists Advance Directive Discussion 08/20/2024 Influenza Vaccine (#1) 2025 2, 05/02/2019, 04/30/2018, Additional history exists DTaP,Tdap,Td Vaccine (2 - Td or Tdap) 01/03/2029 01/03/2019 Pneumococcal Vaccine: 50+ Completed 2018, 08/30/2016, 03/06/2015 Shingrix Vaccine Completed 05/03/2021, 06/2021, 05/31/2016, Additional history exists Medical Devices Implanted Type Area Assistant Commissioner Device Identifier Shelf Expiration Date Model / Serial / Lot [place] Corkscrew Fiberwire Tigerwire 5.5mm 2 Full Thread Biocomposite 14.7 - [id number] Implanted:Qty: 1 on 06/29/2017 at [facility] [place] Right: Bone - Shoulder [employer] 12/17/2018 [id number] / / [id number] [place] Swivelock Tenodesis 8mm Biocomposite 19.5mm Suture [place] Eyelet - [id number] Implanted:Qty: 1 on 06/29/2017 at [facility] [place] Right: Bone - Shoulder [employer] 06/19/2018 [id number] / / [id number] Shell 56mm E Hemispherical Tritanium Acetabular Primary Rim Cluster Hole - [id number] Implanted:2017 at [facility] (Quantity not on file) Joint - Hip Right: Bone - Hip [employer] 12/04/2022 [id number] / [id number] / [id number] Insert Trident 40mm 0d E X3 Acetabular Hip - [id number] Implanted:2017 at [facility] (Quantity not on file) Joint - Hip Right: Bone - Hip [employer] 06/24/2022 [id number] / [id number] / [id number] Head 40mm [place] Biolox Delta Tritanium Femoral Hip - [id number] Implanted:2017 at [facility] (Quantity not on file) Joint - Hip Right: Bone - Hip [employer] 09/26/2022 [id number] / / [id number] Stem Accolade Ii 6 132d Femoral - [id number] Implanted:2017 at [facility] (Quantity not on file) Joint - Hip Right: Bone - Hip [employer] 07/29/2022 [id number] / [id number] / [id number] Sleeve V40 +0mm Offset Homeworth Taper Titanium Adapter Hip - [id number] Implanted:2017 at [facility] (Quantity not on file) Joint - Hip Right: Bone - Hip [employer] 08/28/2022 [id number] / / [id number] Screw Trident Secur-Fit Torx 6.5mm Titanium 20mm Bone Sterile Acetabular - [id number] Implanted:2017 at [facility] (Quantity not on file) Screw Right: Bone - Hip [employer] 11/11/2022 [id number] / [id number] / [id number] Procedures Procedure Name Priority Date/Time Associated Diagnosis Comments BASIC METABOLIC PANEL (EU,FV,HL,NATALI,MM,SP) SHAJI 01/02/2018 4:32 AM EDT from Last 3 Months or Most Recently Relevant to Health Maintenance Results * (ABNORMAL) BASIC METABOLIC PANEL (AK,AV,EU,FV,HL,NATALI,MM,SP) (01/02/2018 4:32 AM EDT) Glucose 130(H) 74 - 99 mg/dL 01/02/2018 6:30 AM [facility] Comment: The [place] Diabetes Association (ADA) provides guidance for cutoff [...] Standards of Medical Care in Diabetes 2016, [place] Diabetes Association. Diabetes Care. 2016.39(Suppl 1). BUN 20 9 - 24 mg/dL 01/02/2018 6:30 AM [facility] Creatinine 1.22 0.73 - 1.22 mg/dL 01/02/2018 6:30 AM [facility] Sodium 140 136 - 144 mmol/L 01/02/2018 6:30 AM [facility] Potassium 4.4 3.7 - 5.1 mmol/L 01/02/2018 6:30 AM [facility] Chloride 102 97 - 105 mmol/L 01/02/2018 6:30 AM [facility] CO2 27 22 - 30 mmol/L 01/02/2018 6:30 AM [facility] Anion Gap 11 9 - 18 mmol/L 01/02/2018 6:30 AM [facility] Calcium 8.1(L) 8.6 - 10.0 mg/dL 01/02/2018 6:30 AM EDT [facility] eGFR- >60 01/02/2018 6:30 AM EDT [facility] eGFR-All Other Races 58 . 01/02/2018 6:30 AM EDT [facility] Comment: eGFR (Estimated GFR) Units of [...] [place] PA-C [facility] Final Re sult [facility] [id number] [facility] [place] [address], from Last 3 Months or Most Recently Relevant to Health Maintenance Insurance MEDICARE Member Subscriber Plan / Payer (Ef fective 2006-Present) Name:Ruperto Thorpe Member ID:[id number] Relation to Subscriber:Self Name:Ruperto Thorpe Subscriber ID:[id number] Payer ID:Not on file Group ID:Not on file Type:Medicare Address: [facility] [place] [id number] [place] [address] Care Teams Electric Transfer Operator Relationship Specialty Start Date End Date Cecilio Benjamin DO PCP - General Internal Medicine 09/04/13
--- OUTSIDE RECORDS SUMMARY | 2025-03-30 11:01 | XMS_ITS | Clinical Summary ---
Author Organization [facility] Address [address] [place] [address] Care Team Providers Care Air Analysis Technician Name Role Phone Unavailable Primary Care Provider [...] Vaccine (2023-2 5 season) 2024 Influenza Vaccine (#1) 2025 HIB Vaccines Aged Out No longer [...] Payer (Ef fective 2006-Present) Name:Ruperto Thorpe Member ID:[id number] Relation to Subscriber:Self Name:Ruperto Thorpe Subscriber ID:[id number] Payer ID:[id number] Group ID:Not on file Type:Medicare Address: [id number] GENERIC OTHER
--- OUTSIDE RECORDS SUMMARY | 2025-03-30 11:01 | XMS_ITS | Clinical Summary ---
Author Organization [facility] Address [address] [place] [address] Care Team Providers Care Server Systems Administrator Name Role Phone Unavailable Primary Care Provider [...]
[2025-03-30 11:05] VITALS: BP 152/76; PULSE 68; TEMP 36.7; O2SAT 98
[2025-03-30 11:28] VITALS: BP 167/78; PULSE 69; O2SAT 97
[2025-03-30 11:29] VITALS: BP 168/81; PULSE 69; O2SAT 97
[2025-03-30] MEDS: IOHEXOL 240 MG/ML - 10 ML VIAL 24 MG INJ (11:31)
[2025-03-30] MEDS: BUPIVACAINE HCL 0.25% PF 25 MG/10 ML VIAL 2 ML INJ (11:31)
[2025-03-30] MEDS: METHYLPREDNISOLONE ACETATE 40 MG/ML VIAL INJ (11:32)
[2025-03-30] MEDS: LIDOCAINE HCL 2% 400 MG/20 ML MDV INJ (11:32)
--- NOTE | 2025-03-30 11:34 | W.PM.PROCNOT ---
Date of procedure: 03/30/25 Pre-op diagnosis: Pain due to left sacroiliitis Post-op diagnosis: same as pre-op Procedure: Procedure: Left sacroiliac joint injection Medications: Bupivacaine 0.25% 3cc, depomedrol 40mg After informed consent was obtained, the patient was brought to the OR and placed in the prone position. The skin overlying the area was prepped and draped in sterile fashion ?using alcohol, after which a 25 gauge needle was used to access the nerve innervating the left sacroiliac joint under fluoroscopic guidance. Omnipaque contrast dye was injected to show absence of vascular or spinal canal uptake. After encountering the same we instilled 4 mL of solution. ?Postoperatively, needles were removed. The patient tolerated the procedure well and was ?transferred to recovery area in stable condition, to be discharged home after meeting ?criteria. Follow up as per the treatment plan. Anesthesia: Local Surgeon: Maddie Villalobos Pathology: none sent Condition: stable Disposition: no change
== END 2025-03-30 11:38 | disposition home or self-care (01) ==
PROVIDERS: PCP Internal Medicine; Visit Provider Anesthesiology
DX: M46.1 Sacroiliitis, not elsewhere classified (principal); M53.3 Sacrococcygeal disorders, not elsewhere classified
CPT/HCPCS: 27096; J0665; J1010; Q9966

== ENCOUNTER 2025-04-09 08:09 | Outpatient (OUT) | payer MEDICARE, OTHER, SELFPAY ==
--- OUTSIDE RECORDS SUMMARY | 2025-04-09 08:15 | XMS_ITS | CCD ---
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 (RBC) [Entitic vol] 93.8 fL 80.0-94.0 F [facility] Monocytes Auto (Bld) [#/Vol] Ordered By: Cecilio Benjamin on 02-18-2025 Monocytes (Bld) [#/Vol] 0.6 10 3/uL 0.3-0.8 [facility] Monocytes/100 WBC Auto (Bld) Ordered By: Cecilio Benjamin on 02-18-2025 Monocytes/100 WBC (Bld) 9.3 % 1.7-12.0 F [facility] Neutrophils Auto (Bld) [#/Vo l]Ordered By: Cecilio Benjamin on 02-18-2025 Neutrophils (Bld) [#/Vol] 3.8 10 3/uL 1.4-6.5 [facility] Neutrophils/100 WBC Auto (Bl d)Ordered By: Cecilio Benjamin on 02-18-2025 Neutrophils/100 WBC (Bld) 59.3 % 43.0-75.0 [facility] No Panel InformationOrdered By: Cecilio Benjamin on 02-18-2025 Eosinophils # (Auto) 0.5 10 3/uL 0.0-0.7 [facility] Immature Granulocyte # (Auto) 0.05 10 3/uL High 0.00-0.03 [facility] Prostate Specific Antigen Screen 3.81 ng/mL <=4.00 [facility] Platelet mean volume Auto (B ld) [Entitic vol]Ordered By: Cecilio Benjamin on 02-18-2025 Platelet mean volume (Bld) [Entitic vol] 10.2 fL 9.5-13.5 [facility] Platelets Auto (d) [#/Vol] Ordered By: Cecilio Benjamin on 02-18-2025 Platelets (Bld) [#/Vol] 147 10 3/uL Low 150-450 [facility] RBC Auto (d) [#/Vol]Ordere d By: Cecilio Benjamin on 02-18-2025 RBC (d) [#/Vol] 4.53 10 6/uL Low 4.70-6.[address] [facility] Serum or plasma albumin/glob ulin mass ratioOrdered By: Cecilio Benjamin on 02-18-2025 Albumin/Globulin [Mass ratio] 1.1 {ratio} [facility] Serum or plasma anion gap de terminationOrdered By: Cecilio Benjamin on 02-18-2025 Anion gap [Moles/Vol] 11.9 mmol/L [facility] Serum or plasma total choles terol/high density lipoprotein (HDL) cholesterol mass ratOrdered By: Cecilio Benjamin on 02-18-2025 Cholesterol.total/Yelena sterol in HDL [Mass ratio] 3.8 {ratio} [facility] Comment on above: 3.3 - 4.4 LOW RISK4. 4 - 7.1 AVERAGE RISK7.1 - 11.0 MODERATE RISK>11.0 HIGH RISK X-ray reportOrdered By: Lorenzo Gomez on 02-17-2025 Study report [facility] [address] [place] [address] XRay Report Signed Patient: Neisha Thorpe MR#: [id number] : 1940 Acct:[id number] Age/Sex: 84 / M ADM Date: 5 Loc: [facility] Room: Type: [facility] Attending Dr: Faheem Sevilla MD Copies to: [...] FRACTURE. Impression dictated by: Candelario Gomez Jr., D.O. 02/17/2025 10:32 AM Dictation Location: RADIO-PC-23 Transcribed By: COLIN 02/17/25 1032 Dictated By: Candelario Gomez Jr, DO 02/17/25 1031 Signed By: 02/17/25 1032 [facility] XR wrist LT min 3V*on 2024 XR wrist LT min 3V* [facility] [address] [place] [address] XRay Report Signed Patient: Neisha Thorpe MR#: [id number] 5 : 1940 Acct:[id number] Age/Sex: 84 / M ADM Date: 02/17/25 Loc: [facility] Room: Type: [facility] Attending Dr: Faheem Sevilla MD Copies to: [...] FRACTURE. Impression dictated by: Candelario Gomez Jr., D.O. 02/17/2025 10:32 AM Dictation Location: RADIO-PC-23 Transcribed By: COLIN 02/17/25 1032 Dictated By: Candelario Gomez Jr, DO 02/17/25 1031 Signed By: 02/17/25 1032 Normal [facility] Basophils Auto (Bld) [#/Vol] on 12-05-2024 Basophils (Bld) [#/Vol] Automated basoph il count 0.0-0.1 [facility] Basophils (Bld) [#/Vol] 0.0 10 3/uL 0.0-0.1 [facility] Basophils/100 WBC Auto (Bld) on 12-05-2024 Basophils/100 WBC (Bld) Automated basophil % 0. 2-2.0 [facility] Basophils/100 WBC (Bld) 0.5 % 0.2-2.0 F [facility] Eosinophils/100 WBC Auto (Bl d)on 12-05-2024 Eosinophils/100 WBC (Bld) Automated eosinophil % 0.9-7.0 [facility] Eosinophils/100 WBC (Bld) 4.8 % 0.9-7.0 [facility] Erythrocyte distribution wid th Auto (RBC) [Ratio]on 12-05-2024 Erythrocyte distribution width (RBC) [Ratio] Erythrocyte distribution width [Ratio] by Automated count 11.0-15.0 [facility] Erythrocyte distribution width (RBC) [Ratio] 12.7 % 11.0-15.0 [facility] Estimated glomerular filtrat ion rate (GFR) non- Americanon 12-05-2024 GFR/1.73 sq M.predicted among non-blacks MDRD (S/P/Bld) [Vol rate/Area] Estimated glomerular filtration rate (GFR) non- Low >=60 mL/min/1.73 m 2 [facility] GFR/1.73 sq M.predicted among non-blacks MDRD (S/P/Bld) [Vol rate/Area] 51 mL/min/{1.73_m2} Low >=60 mL/min/1.73 m 2 [facility] Hematocrit Auto (Bld) [Volum e fraction]on 12-05-2024 Hematocrit (Bld) [Volume fraction] Hematocrit [Volume Fraction] of Blood by Automated count Low 42.0-54.0 [facility] Hematocrit (Bld) [Volume fraction] 41.1 % Low 42.0-54.0 [facility] Hemoglobin [Mass/volume] in Bloodon 12-05-2024 Hemoglobin (Bld) [Mass/Vol] Hemoglobin [Mass/volume] in Blood 14.0-18.0 [facility] Hemoglobin (Bld) [Mass/Vol] 14.1 g/dL 14.0-18.0 [facility] Laboratory - Chemistry and C hemistry - challengeon 12-05-2024 Calcium [Mass/Vol] 8.9 mg/dL 8.5-10.[address] [facility] Chloride [Moles/Vol] 103 mmol/L 98-107 [facility] CO2 [Moles/Vol] 29.1 mmol/L 21.0-32.0 [facility] Creatinine [Mass/Vol] 1.33 mg/dL High 0.70-1.30 [facility] GFR/1.73 sq M.predicted MDRD (S/P/Bld) [Vol rate/Area] mL/min/{1.73_m2} >=60 mL/min/1.73 m 2 [facility] Glucose [Mass/Vol] 101 mg/dL 74-[address] [facility] Magnesium [Mass/Vol] 1.8 mg/dL 1.8-2.4 [facility] Potassium [Moles/Vol] 4.2 mmol/L 3.5-5.1 [facility] Sodium [Moles/Vol] 139 mmol/L 136-[address] [facility] Urea nitrogen [Mass/Vol] 24.0 mg/dL High 7.0-18.0 [facility] Urea nitrogen/Creatinine [Mass ratio] 18.0 mg/mg [facility] Laboratory - Hematology and Cell countson 12-05-2024 Immature granulocytes/100 WBC (Bld) 0.2 % 0.0-0.5 [facility] - Microbiology an d Antimicrobial susceptibilityon 12-05-2024 SARS-CoV-2 (COVID-19) RNA RICKY+probe Ql (Unsp spec) Negative NEGATIVE [facility] Comment on above: This test has [...] of Covid-19 under section 564(b)(1) of theAct, U.S.C. 360bbb-3(b)(1), unless the declaration isterminated or authorization is revoked sooner. Leukocytes [#/volume] correc poncho for nucleated erythrocytes in Blood by Automated counon 12-05-2024 WBC corrected for nucl RBC Auto (Bld) [#/Vol] Leukocytes [#/volume] corrected for nucleated erythrocytes in Blood by Automated coun 4.0-11.0 [facility] WBC corrected for nucl RBC Auto (Bld) [#/Vol] 5.5 10 3/uL 4.0-11.0 [facility] Lymphocytes Auto (Bld) [#/Vo l]on 12-05-2024 Lymphocytes (Bld) [#/Vol] Lymphocytes [#/volume] in Blood by Automated count Low 1.2-3.8 [facility] Lymphocytes (Bld) [#/Vol] 0.9 10 3/uL Low 1.2-3.8 [facility] Lymphocytes/100 WBC Auto (Bl d)on 12-05-2024 Lymphocytes/100 WBC (Bld) Lymphocytes/100 leukocytes in Blood by Automated count Low 20.5-60.0 [facility] Lymphocytes/100 WBC (Bld) 16.7 % Low 20.5-60.0 [facility] MCH Auto (RBC) [Entitic mass ]on 12-05-2024 MCH (RBC) [Entitic mass] MCH [Entitic mass] by Automated count 25.9-34.0 [facility] MCH (RBC) [Entitic mass] 32.3 pg 25.9-34.0 [facility] MCHC Auto (RBC) [Mass/Vol]on 12-05-2024 MCHC (RBC) [Mass/Vol] MCHC [Mass/volume] by Automated count 29.9-35.2 [facility] MCHC (RBC) [Mass/Vol] 34.3 g/dL 29.9-35.2 [facility] MCV Auto (RBC) [Entitic vol] on 12-05-2024 MCV (RBC) [Entitic vol] MCV [Entitic vol ume] by Automated count High 80.0-94.0 [facility] MCV (RBC) [Entitic vol] 94.3 fL High 80.0-94.0 F [facility] Monocytes Auto (Bld) [#/Vol] on 12-05-2024 Monocytes (Bld) [#/Vol] Automated blood monocyte count 0.3-0.8 [facility] Monocytes (Bld) [#/Vol] 0.6 10 3/uL 0.3-0.8 [facility] Monocytes/100 WBC Auto (Bld) on 12-05-2024 Monocytes/100 WBC (Bld) Automated monocyte % 1. 7-12.0 [facility] Monocytes/100 WBC (Bld) 10.1 % 1.7-12.0 F [facility] Neutrophils Auto (Bld) [#/Vo l]on 12-05-2024 Neutrophils (Bld) [#/Vol] Neutrophils [#/volume] in Blood by Automated count 1.4-6.5 [facility] Neutrophils (Bld) [#/Vol] 3.7 10 3/uL 1.4-6.5 [facility] Neutrophils/100 WBC Auto (Bl d)on 12-05-2024 Neutrophils/100 WBC (Bld) Automated neutrophil % 43.0-75.0 [facility] Neutrophils/100 WBC (Bld) 67.7 % 43.0-75.0 [facility] No Panel Informationon 12-05 Eosinophils # (Auto) 0.3 10 3/uL 0.0-0.7 [facility] Immature Granulocyte # (Auto) 0.01 10 3/uL 0.00-0.03 [facility] Troponin I High Sensitivity 15.5 pg/mL 4.0-76.1 [facility] Comment on above: CUT-OFF POINTS HAVE [...] INFORMATION. Bedside Influenza Type A Antigen Negative [facility] Comment on above: Negative for Flu A p rotein antigen. Infection due to Flu Acannot be ruled out. Flu A antigen in the sample may bebelow the detection limit of the test. Bedside Influenza Type B Antigen Negative [facility] Comment on above: Negative for Flu B p rotein antigen. Infection due to Flu Bcannot be ruled out. Flu B antigen in the sample may bebelow the detection limit of the test. Platelet mean volume Auto (B ld) [Entitic vol]on 12-05-2024 Platelet mean volume (Bld) [Entitic vol] Platelet mean volume [Entitic volume] in Blood by Automated count 9.5-13.5 [facility] Platelet mean volume (Bld) [Entitic vol] 10.3 fL 9.5-13.5 [facility] Platelets Auto (Bld) [#/Vol] on 12-05-2024 Platelets (Bld) [#/Vol] Platelets [#/vol ume] in Blood by Automated count Low 150-450 [facility] Platelets (Bld) [#/Vol] 104 10 3/uL Low 150-450 [facility] RBC Auto (Bld) [#/Vol]on RBC (Bld) [#/Vol] Erythrocytes [#/volume] in Blood by Automated count Low 4.70-6.10 [facility] RBC (Bld) [#/Vol] 4.36 10 6/uL Low 4.70-6.[address] [facility] Serum or plasma anion gap de terminationon 12-05-2024 Anion gap [Moles/Vol] Serum or plasma an ion gap determination [facility] Anion gap [Moles/Vol] 11.1 mmol/L [facility] Influenza virus B Ag [Presen ce] in Upper respiratory specimen by Rapid immunoassayon 11-06-2024 FLUBV Ag IA.rapid Ql (Nph) Influenza virus B Ag [Presence] in Upper respiratory specimen by Rapid immunoassay [facility] No Panel Informationon 11-06 Influenza Type A (Rapid) Negative [facility] POC SARS CoV-2 Antigen Negative [facility] CNPNon 03-20-2023 CNPN Telephone (SPNMAV) STEPHENNEISHA Keeley ([id number]) 1940 [employer] Date Time Provider Department 03/20/23 DELIO JAEGER SPNHAV During your visit today, we recorded the following information about you: Neida Caballero MA 03/20/2023 12:30 PM Signed DATE OF SERVICE: 03/15/2023 PATIENT'S PHONE NUMBERS: [phone] (home) OR @[email or web address]@ PROVIDER: Dr. Jaeger PROCEDURE: Elective Pain Management [...] work Requesting to call his CELL ONLY [phone] what to do next Leave Detailed messages Neida Caballero MA 03/21/2023 2:01 PM Signed Formatted spine intervention order and sent to Dr. Jaeger for approval. Neida Caballero MA 03/21/2023 2:01 PM Signed Addended by: NEIDA CABALLERO on: 03/21/2023 02:01 PM Modules accepted: Orders Delio Jaegre DO 03/21/2023 2:06 PM Signed Addended by: DELIO JAEGER on: 03/21/2023 02:06 PM Modules accepted: Orders Neida Caballero MA 03/21/2023 2:08 PM Signed Called and [...] of spine injection schedulers to call at [phone]. Patient will call if he wants to schedule another injection. 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 Take daily - FLUTICASONE/SALMETERO L (ADVAIR DISKUS INHALATION) Inhale 1 Puff as [...] Encounter Status:Closed by NEIDA CABALLERO on 03/20/23 [facility] OPERATIVE NOon 03-15-2023 OPERATIVE NO HNO ID: [id number] Author: Delio Jaeger, DO Service: ? Author [...] offered a procedure / surgery at a [facility] facility. Patient and I have [...] surgery/procedure as indicated on the consent form. ED [facility] approved time out was performed identifying the site, side and level of procedure prior to start of procedure. [facility] - ELECTIVE PROCEDURE Lumbar Transforaminal [...] the entire procedure. Delio Jaeger DO, MBA [facility] 02-26-2023 CNPN Telephone (SPNMAV) NEISHA THORPE ([id number]) 1940 [place] [employer] [employer] Date Time Provider Department 02/26/23 DELIO JAEGER SPJEREMYAV During your visit today, we recorded the following information about you: Linda Knox LPN 02/26/2023 4:49 PM Signed Spoke to patient in [facility] to pre procedure instructions. 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 Pt advised to arrive 30 [...] take. Advised on location of ASC-2nd floor [facility] Pt will receive a follow up call several days after by a steamfitter apprentice. If you experience any increase in weakness, difficulty walking or significant increase in pain that last more than 4 hours, please proceed to the Emergency Room and tell them you had a spine procedure done recently. Additionally, call us and notify us of these symptoms. Please call [phone] if you have any questions. Pt verbalized [...] PRESCRIPTION Fiber Well 5mg. Take daily - FLUTICASONE/SALMETERO L (ADVAIR DISKUS INHALATION) Inhale 1 Puff as [...] Status:Closed by LINDA KNOX LPN [facility]26[facility]N Tele[facility] (SPNMAV) NEISHA THORPE ([id number]) 1940 [employer] Date Time Provider Department 02/19/23 DELIO JAEGER SPNMAV During your visit today, we recorded the following information about you: Camilla Jarrell [facility] 02/19/2023 9:27 AM Signed Neisha Thorpe daughter Celi is calling Delio [...] call Celi as patient cannot hear well [phone] Patient has been identified by name and birthdate. Duration of symptoms: N/A Person calling: daughter: Celi Call patient at: N/A [phone] (home) [phone] (cell) Was an appointment scheduled: No Closing statement: Results or non-symptom based questions: Thank you for calling [facility], your call will be returned within the next business day. Camilla Knox LPN 02/19/2023 9:45 AM Signed Spine Intervention order formatted for review Linda Knox LPN 02/19/2023 11:59 AM Signed Order approved Spoke to daughter in [facility] to pre procedure instructions. 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 Pt advised to arrive 30 min prior to the time given by the clinic scheduler. Pt advised will also receive a call the day before from the surgery center to confirm date/time. Pt can eat and drink as normal. and Pt can take medications as normal. No alcohol 24 hours prior. Pt is on ASA.- 81 mg okay to take. and must Advised on location of ASC-2nd floor [facility] Pt will receive a follow up call several days after by a steamfitter apprentice. If you experience any increase in weakness, difficulty walking or significant increase in pain that last more than 4 hours, please proceed to the Emergency Room and tell them you had a spine procedure done recently. Additionally, call us and notify us of these symptoms. Please call [phone] if you have any questions. Pt verbalized understanding. 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 Take daily - FLUTICASONE/SALMETERO L (ADVAIR DISKUS INHALATION) Inhale 1 Puff as [...] taking medi (more content not included)... Normal [facility] XR knee LT 4V*on 11-09-2022 XR knee LT 4V* [facility] [employer] Other XR knee LT 4V* [facility] [employer] Other XR knee LT 4V* [address] [place] [address] [employer] Other XR knee LT 4V* [place] [address] No rt [employer] Other XR knee LT 4V* XRay Report [employer] Other XR knee LT 4V* Signed [employer] Other XR knee LT 4V* Patient: Neisha Thorpe MR#: [id number] [place] [employer] Other XR knee LT 4V* 5 [employer] Other XR knee LT 4V* : 1940 Acct:[id number] [employer] Other XR knee LT 4V* Age/Sex: 82 / M ADM Date: 11/09/22 [employer] Other XR knee LT 4V* Loc: [facility] Room: Type : REG CLI [employer] Other XR knee LT 4V* Attending Dr: Jose Enrique Leblanc II, MD [employer] Other XR knee LT 4V* Copies to: Jose Enrique Leblanc MD [employer] Other XR knee LT 4V* Ordering Provider: Jose Enrique Leblanc MD [employer] Other XR knee LT 4V* Date of Service: 11/09/22 [employer] Other XR knee LT 4V* XR/XR knee LT 4V*: Acute pain of left knee [employer] Other XR knee LT 4V* XR knee LT 4V* 11/09/2022 3:15 PM [employer] Other XR knee LT 4V* SIGNS AND SYMPTOMS: Acute pain of left knee [employer] Other XR knee LT 4V* PROTOCOL: Frontal, lateral, oblique, and sunrise views of the left knee [employer] Other XR knee LT 4V* COMPARISON: 11/05/2022 [employer] Other XR knee LT 4V* FINDINGS: [employer] Other XR knee LT 4V* There is similar narrowing of the weightbearing joint spaces with chondrocalcinosis of the menisci [employer] Other XR knee LT 4V* suggesting underlyin g CPPD. There is narrowing of the patellofemoral joint space with spurring at [employer] Other XR knee LT 4V* the superior pole of patella. There is a small joint effusion. No soft tissue swelling. No acute [employer] Other XR knee LT 4V* displaced fracture. Vascular calcifications are present posteriorly. [employer] Other XR knee LT 4V* XR/XR knee LT 4V* [employer] Other XR knee LT 4V* IMPRESSION: [employer] Other XR knee LT 4V* Tricompartmental degenerative changes are noted in the left knee with a small joint effusion. [employer] Other XR knee LT 4V* There is chondrocalcinosis of the menisci suggesting underlying CPPD. [employer] Other XR knee LT 4V* Impression dictated by: Darren Yuen M.D.11/09/2022 5:03 PM [employer] Other XR knee LT 4V* Dictation Location: [facility] [employer] Other XR knee LT 4V* Transcribed By: COLIN 11/09/22 [facility] [employer] Other XR knee LT 4V* Dictated By: Darren Yuen II, MD 11/09/22 [facility] [employer] Other XR knee LT 4V* Signed By: [employer] Other XR knee LT 4V* 11/09/22 1703 [employer] Other XR pelvis 1-2Von 11-09-2022 XR pelvis 1-2V XR/XR pelvis 1-2V: Acute pain of left knee [employer] Other XR pelvis 1-2V XR pelvis 1-2V 11/09/2022 3:15 PM [employer] Other XR pelvis 1-2V SIGNS AND SYMPTOMS: Left knee pain [employer] Other XR pelvis 1-2V PROTOCOL: Frontal radiograph of the chest [employer] Other XR pelvis 1-2V COMPARISON: None [employer] Other XR pelvis 1-2V There is mild narrowing of the left hip joint space with subcortical cystic change on both sides of [employer] Other XR pelvis 1-2V the joint along the acetabular there is chondrocalcinosis of the labrum overlying the superior [employer] Other XR pelvis 1-2V acetabular rim and superior lateral femoral head. The bony ring of the pelvis is intact. There is [employer] Other XR pelvis 1-2V total right hip arthroplasty. Degenerative changes are noted in the sacroiliac joints. No fracture [employer] Other XR pelvis 1-2V is [employer] Other XR pelvis 1-2V XR/XR pelvis 1-2V [employer] Other XR pelvis 1-2V Degenerative changes are noted in the left hip with findings suspicious for previous labral [employer] Other XR pelvis 1-2V pathology. [employer] Other XR pelvis 1-2V Postoperative change s are noted in the right hip with total right hip arthroplasty hardware. [employer] Other XR pelvis 1-2V Impression dictated by: Darren Yuen M.D.11/09/2022 5:01 PM [employer] Other XR pelvis 1-2V Transcribed By: COLIN 11/09/22 170 [employer] Other XR pelvis 1-2V Dictated By: Darren Yuen II, MD 11/09/22 170 [employer] Other XR pelvis 1-2V 11/09/22 170 [employer] Other XR KNEE LT 4V or >on [...] There is chondrocalcinosis. Soft tissues: Unremarkable. IMPRESSION: [id number]-lr-[id number] osteoarthritis as described above. Chondrocalcinosis. No acute fracture or dislocation. Electronically authenticated by: CHUCK JONES Date: 2022-11-05 11:19 Normal [facility] US CAROTID ART BILon 023 US [...] JONAS MCLEOD Date: 2022-09-26 10:58 Normal [facility] CBC AUTO DIFFon 08-10-2022 BASO # 0.0 103/ul Normal 0.0-0.1 [facility] Comment on above: Performed By: #### C BC #### [facility] [address] [place] [address] Dr. Alexis Brink Basophils/100 WBC (Bld) 0.7 % Normal 0.2-2.0 [facility] Comment on above: Performed By: #### C BC #### [facility] [address] [place] [address] Dr. Alexis Brink EO # 0.3 103/ul Normal 0.0-0.7 [facility] Comment on above: Performed By: #### C BC #### [facility] [address] [place] [address] Dr. Alexis Brink Eosinophils/100 WBC (Bld) 6.1 % Normal 0.9-7.0 [facility] Comment on above: Performed By: #### C BC #### [facility] [address] [place] [address] Dr. Alexis Brink Erythrocyte distribution width (RBC) [Ratio] 12.1 % Normal 11.0-15.0 [facility] Comment on above: Performed By: #### C BC #### [facility] [address] [place] [address] Dr. Alexis Brink Hematocrit (Bld) [Volume fraction] 44.2 % Normal 42.0-54.0 [facility] Comment on above: Performed By: #### C BC #### [facility] [address] [place] [address] Dr. Alexis Brink Hemoglobin (Bld) [Mass/Vol] 14.9 g/dL Normal 14.0-18.0 [facility] Comment on above: Performed By: #### C BC #### [facility] [address] [place] [address] Dr. Alexis Brink IG # 0.01 10e3/ul Normal 0.00-0.03 [facility] Comment on above: Performed By: #### C BC #### [facility] [address] [place] [address] Dr. Alexis Brink IG % 0.2 % Normal 0.0-0.5 [facility] Comment on above: Performed By: #### C BC #### [facility] [address] [place] [address] Dr. Alexis Brink LYMPH # 1.2 103/ul Normal 1.2-3.8 [facility] Comment on above: Performed By: #### C BC #### [facility] [address] [place] [address] Dr. Alexis Brink Lymphocytes/100 WBC (Bld) 21.3 % Normal 20.5-60.0 [facility] Comment on above: Performed By: #### C BC #### [facility] [address] [place] [address] Dr. Alexis Brink MANUAL DIFF REQ NO Normal [facility] Comment on above: Performed By: #### C BC #### [facility] [address] [place] [address] Dr. Alexis Brink MCH (RBC) [Entitic mass] 30.7 pg Normal 25.9-34.0 [facility] Comment on above: Performed By: #### C BC #### [facility] [address] [place] [address] Dr. Alexis Brink MCHC (RBC) [Mass/Vol] 33.7 g/dL Normal 29.9-35.2 [facility] Comment on above: Performed By: #### C BC #### [facility] [address] [place] [address] Dr. Alexis Brink MCV (RBC) [Entitic vol] 91.1 fL Normal 80.0-94.0 [facility] Comment on above: Performed By: #### C BC #### [facility] [address] [place] [address] Dr. Alexis Brink MONO # 0.5 103/ul Normal 0.3-0.8 [facility] Comment on above: Performed By: #### C BC #### [facility] [address] [address] [address] Alexis Brink Monocytes/100 WBC (Bld) 8.5 % Normal 1.7-12.0 [facility] Comment on above: Performed By: #### C BC #### [facility] [address] [address] [address] Alexis Brink NEUT # 3.5 103/ul Normal 1.4-6.5 [facility] Comment on above: Performed By: #### C BC #### [facility] [address] [place] [address] Dr. Alexis Brink Neutrophils/100 WBC (Bld) 63.2 % Normal 43.0-75.0 [facility] Comment on above: Performed By: #### C BC #### [facility] [address] [place] [address] Dr. Alexis Brink Platelet mean volume (Bld) [Entitic vol] 10.0 fL Normal 9.5-13.5 [facility] Comment on above: Performed By: #### C BC #### [facility] [address] [place] [address] Dr. Alexis Brink PLT 120 103/ul Critically low 150-450 [facility] Comment on above: Performed By: #### C BC #### [facility] [address] [place] [address] Dr. Alexis Brink RBC 4.85 106/ul Normal 4.70-6.10 [facility] Comment on above: Performed By: #### C BC #### [facility] [address] [place] [address] Dr. Alexis Brink WBC 5.6 103/ul Normal 4.0-11.0 [facility] Comment on above: Performed By: #### C BC #### [facility] [address] [place] [address] Dr. Alexis Brink [facility] SARS-CoV-2 (COVID-19) RNA RICKY+probe Ql (Unsp spec) Not detected Normal NOT DETECTED [facility] Comment on above: Result Comment: This test is not yet approved or cleared by the [place] FDA. When there are no FDA-approved or cleared tests available, and other criteria are met, FDA can make tests available under an emergency access mechanism called an Emergency Use Authorization (EUA). The EUA for this test is supported by the [place] of Health and Human Service's (HHS's) declaration [...] with SARS-CoV-2. Performed By: #### C VDTBH ####[facility] [address] [place], [place] [address]Dr. Alexis Brink INFLUENZA A AND B AGon 08-10 INFLUANEGH SEE BELOW Normal [facility] Comment on above: Result Comment: Nega tive for Flu A protein angiten. Infection due to Flu A cannot be ruled out. Flu A angiten in the sample may be below the detection limit of the test. Performed By: #### I NFLUAB ####[facility] [address] [place], [place] [address]Dr. Alexis Brink INFLUBNEGH SEE BELOW Normal [facility] Comment on above: Result Comment: Nega tive for Flu B protein antigen. Infection due to Flu B cannot be ruled out. Flu B antigen in the sample may be below the detection limit of the test. Performed By: #### I NFLUAB ####[facility] [address] [place], [place] [address]Dr. Alexis Brink INFLUENZA A AG Negative Normal NEGATIVE SEE COMMENT [facility] Comment on above: Performed By: #### I NFLUAB ####[facility] [address] [place], [place] [address]Dr. Alexis Brink INFLUENZA B AG Negative Normal NEGATIVE SEE COMMENT [facility] Comment on above: Performed By: #### I NFLUAB ####[facility] [address] [address]Dr. Alexis Brink INTERNAL CONTROLS Within Normal Limits Normal Wi thin Normal Limits [facility] Comment on above: Performed By: #### I NFLUAB ####[facility] [address] [address]Dr. Alexis Brink PROF CHEM 8 (BAS METB)on Anion gap [Moles/Vol] 11.4 mmol/L Normal [facility] Comment on above: Performed By: #### B NARA HSTROPN #### [facility] [address] [address] [address] Alexis Brink Calcium [Mass/Vol] 8.9 mg/dL Normal 8.5-10.1 [facility] Comment on above: Performed By: #### B NARA HSTROPN #### [facility] [address] [address] [address] Alexis Brink Chloride [Moles/Vol] 102 mmol/L Normal 98-107 [facility] Comment on above: Performed By: #### B NARA HSTROPN #### [facility] [address] [address] [address] Alexis Brink CO2 [Moles/Vol] 28.8 mmol/L Normal 21.0-32.0 [facility] Comment on above: Performed By: #### B NARA HSTROPN #### [facility] [address] [address] [address] Alexis Brink Creatinine [Mass/Vol] 1.35 mg/dL Critically high 0.70-1.30 [facility] Comment on above: Performed By: #### B NARA HSTROPN #### [facility] [address] [address] [address] Alexis Brink EGFR-AF SALVADOREAN >60 Normal >=60 [facility] Comment on above: Performed By: #### B NARA HSTROPN #### [facility] [address] [address] [address] Alexis Brink EGFR-NON AF SALVADOREAN 51 mL/min/1.73m2 Critically low >=60 [facility] Comment on above: Performed By: #### B MP, HSTROPN #### [facility] [address] [address] [address] Alexis Brink Glucose [Mass/Vol] 109 mg/dL Critically high 74-106 [facility] Comment on above: Performed By: #### B MP, HSTROPN #### [facility] [address] [address] [address] Alexis Brink Potassium [Moles/Vol] 4.2 mmol/L Normal 3.5-5.1 [facility] Comment on above: Performed By: #### B MP, HSTROPN #### [facility] [address] [address] [address] Alexis Brink Sodium [Moles/Vol] 138 mmol/L Normal 136-145 [facility] Comment on above: Performed By: #### B MP, HSTROPN #### [facility] [address] [address] [address] Alexis Brink Urea nitrogen [Mass/Vol] 18.0 mg/dL Normal 7.0-18.0 [facility] Comment on above: Performed By: #### B MP, HSTROPN #### [facility] [address] [address] [address] Alexis Brink Urea nitrogen/Creatinine [Mass ratio] 13.3 mg/mg Normal [facility] Comment on above: Performed By: #### B MP, HSTROPN #### [facility] [address] [address] [address] Alexis Brink TROPONIN, HIGH SENSITIVITYon 08-10-2022 HSTROP 22.2 pg/mL Normal 4.0-76.1 [facility] Comment on above: Result Comment: CUT- OFF POINTS HAVE BEEN ESTABLISHED BASED ON THE FOURTH UNIVERSAL DEFINITIONS OF MYOCARDIAL INFARCTION. THE UPPER REFERENCE LIMIT (URL) OF TROPONIN, DEFINED THE 99TH PERCENTILE OF cTnI DISTRIBUTION IN A REFERENCE POPULATION, HAS BEEN CONFIRMED THE DECISION THRESHOLD FOR SD DIAGNOSIS. Performed By: #### B MP, HSTROPN #### [facility] [address] [place] [address] Dr. Alexis Brink XR CHEST 1 Von [...] RADHA UNDERWOOD Date: 2022-08-10 16:07 Normal [facility] CBC AUTO DIFFon 02-09-2022 BASO # 0.0 103/ul Normal 0.0-0.1 [facility] Comment on above: Performed By: #### C BC #### [facility] [address] [place] [address] Dr. Alexis Brink Basophils/100 WBC (Bld) 0.6 % Normal 0.2-2.0 [facility] Comment on above: Performed By: #### C BC #### [facility] [address] [place] [address] Dr. Alexis Brink EO # 0.5 103/ul Normal 0.0-0.7 [facility] Comment on above: Performed By: #### C BC #### [facility] [address] [place] [address] Dr. Alexis Brink Eosinophils/100 WBC (Bld) 7.2 % Critically high 0.9-7.0 [facility] Comment on above: Performed By: #### C BC #### [facility] [address] [place] [address] Dr. Alexis Brink Erythrocyte distribution width (RBC) [Ratio] 12.4 % Normal 11.0-15.0 [facility] Comment on above: Performed By: #### C BC #### [facility] [address] [place] [address] Dr. Alexis Brink Hematocrit (Bld) [Volume fraction] 45.5 % Normal 42.0-54.0 [facility] Comment on above: Performed By: #### C BC #### [facility] [address] [place] [address] Dr. Alexis Brink Hemoglobin (Bld) [Mass/Vol] 15.4 g/dL Normal 14.0-18.0 [facility] Comment on above: Performed By: #### C BC #### [facility] [address] [place] [address] Dr. Alexis Brink IG # 0.02 10e3/ul Normal 0.00-0.03 [facility] Comment on above: Performed By: #### C BC #### [facility] [address] [place] [address] Dr. Alexis Brink IG % 0.3 % Normal 0.0-0.5 [facility] Comment on above: Performed By: #### C BC #### [facility] [address] [place] [address] Dr. Alexis Brink LYMPH # 1.3 103/ul Normal 1.2-3.8 [facility] Comment on above: Performed By: #### C BC #### [facility] [address] [place] [address] Dr. Alexis Brink Lymphocytes/100 WBC (Bld) 17.8 % Critically low 20.5-60.0 [facility] Comment on above: Performed By: #### C BC #### [facility] [address] [place] [address] Dr. Alexis Brink MANUAL DIFF REQ NO Normal The [facility] Comment on above: Performed By: #### C BC #### [facility] [address] [place] [address] Dr. Alexis Brink MCH (RBC) [Entitic mass] 31.4 pg Normal 25.9-34.0 [facility] Comment on above: Performed By: #### C BC #### [facility] [address] [address] [address] Alexis Brink MCHC (RBC) [Mass/Vol] 33.8 g/dL Normal 29.9-35.2 [facility] Comment on above: Performed By: #### C BC #### [facility] [address] [address] [address] Alexis Brink MCV (RBC) [Entitic vol] 92.9 fL Normal 80.0-94.0 [facility] Comment on above: Performed By: #### C BC #### [facility] [address] [address] [address] Alexis Brink MONO # 0.7 103/ul Normal 0.3-0.8 [facility] Comment on above: Performed By: #### C BC #### [facility] [address] [place] [address] Dr. Alexis Brink Monocytes/100 WBC (Bld) 9.6 % Normal 1.7-12.0 [facility] Comment on above: Performed By: #### C BC #### [facility] [address] [place] [address] Dr. Alexis Brink NEUT # 4.6 103/ul Normal 1.4-6.5 [facility] Comment on above: Performed By: #### C BC #### [facility] [address] [place] [address] Dr. Alexis Brink Neutrophils/100 WBC (Bld) 64.5 % Normal 43.0-75.0 [facility] Comment on above: Performed By: #### C BC #### [facility] [address] [place] [address] Dr. Alexis Brink Platelet mean volume (Bld) [Entitic vol] 10.7 fL Normal 9.5-13.5 [facility] Comment on above: Performed By: #### C BC #### [facility] [address] [place] [address] Dr. Alexis Brink PLT 130 103/ul Critically low 150-450 [facility] Comment on above: Performed By: #### C BC #### [facility] [address] [address] [address] Alexis Brink RBC 4.90 106/ul Normal 4.70-6.10 [facility] Comment on above: Performed By: #### C BC #### [facility] [address] [address] [address] Alexis Brink WBC 7.1 103/ul Normal 4.0-11.0 [facility] Comment on above: Performed By: #### C BC #### [facility] [address] [address] [address] Alexis Brink DIRECT LDLon 02-09-2022 Cholesterol in LDL [Mass/Vol] 144 mg/dL Normal [facility] Comment on above: Performed By: #### D LDL, BMP ####[facility] [address] [address]Dr. Alexis Brink DLDL NORMAL SEE BELOW Normal [facility] Comment on above: Result Comment: <100 mg/dl OPTIMAL 100 - 129 mg/dl NEAR OR ABOVE OPTIMAL 130 - 159 mg/dl BORDERLINE HIGH 160 - 189 mg/dl HIGH >190 mg/dl VERY HIGH Performed By: #### D LDL, BMP ####[facility] [address] [address]Dr. Alexis Brink PROF CHEM 8 (BAS METB)on Anion gap [Moles/Vol] 9.3 mmol/L Normal [facility] Comment on above: Performed By: #### D LDL, BMP #### [facility] [address] [address] [address] Alexis Brink Calcium [Mass/Vol] 8.7 mg/dL Normal 8.5-10.1 [facility] Comment on above: Performed By: #### D LDL, BMP #### [facility] [address] [address] [address] Alexis Brink Chloride [Moles/Vol] 103 mmol/L Normal 98-107 [facility] Comment on above: Performed By: #### D LDL, BMP #### [facility] [address] [address] [address] Alexis Brink CO2 [Moles/Vol] 32.1 mmol/L Critically high 21.0-32.0 [facility] Comment on above: Performed By: #### D LDL, BMP #### [facility] [address] [address] [address] Alexis Brink Creatinine [Mass/Vol] 1.35 mg/dL Critically high 0.70-1.30 [facility] Comment on above: Performed By: #### D LDL, BMP #### [facility] [address] [address] [address] Alexis Brink EGFR-AF SALVADOREAN >60 Normal >=60 [facility] Comment on above: Performed By: #### D LDL, BMP #### [facility] [address] [address] [address] Alexis Brink EGFR-NON AF SALVADOREAN 51 mL/min/1.73m2 Critically low >=60 [facility] Comment on above: Performed By: #### D LDL, BMP #### [facility] [address] [address] [address] Alexis Brink Glucose [Mass/Vol] 90 mg/dL Normal 74-106 [facility] Comment on above: Performed By: #### D LDL, BMP #### [facility] [address] [address] [address] Alexis Brink Potassium [Moles/Vol] 4.4 mmol/L Normal 3.5-5.1 [facility] Comment on above: Performed By: #### D LDL, BMP #### [facility] [address] [address] [address] Alexis Brink Sodium [Moles/Vol] 140 mmol/L Normal 136-145 [facility] Comment on above: Performed By: #### D LDL, BMP #### [facility] [address] [address] [address] Alexis Brink Urea nitrogen [Mass/Vol] 16.0 mg/dL Normal 7.0-18.0 [facility] Comment on above: Performed By: #### D LDL, BMP #### [facility] [address] [address] [address] Alexis Brink Urea nitrogen/Creatinine [Mass ratio] 11.9 mg/mg Normal [facility] Comment on above: Performed By: #### D LDL, BMP #### [facility] [address] [place] [address] Dr. Alexis Brink UA RANDOMon 02-09-2022 Bilirubin Ql (U) Negative Normal NEGATIVE [facility] Comment on above: Performed By: #### U A #### [facility] [address] [place] [address] Dr. Alexis Brink Clarity (U) CLEAR Normal CLEAR [facility] Comment on above: Performed By: #### U A #### [facility] [address] [place] [address] Dr. Alexis Brink Color (U) YELLOW Normal YELLOW [facility] Comment on above: Performed By: #### U A #### [facility] [address] [place] [address] Dr. Alexis Brink Glucose Ql (U) Negative Normal NEGATIVE [facility] Comment on above: Performed By: #### U A #### [facility] [address] [place] [address] Dr. Alexis Brink Hemoglobin Ql (U) Negative Normal NEGATIVE [facility] Comment on above: Performed By: #### U A #### [facility] [address] [place] [address] Dr. Alexis Brink Ketones Ql (U) Negative Normal NEGATIVE [facility] Comment on above: Performed By: #### U A #### [facility] [address] [place] [address] Dr. Alexis Brink LEUKOCYTES Negative Normal NEGATIVE [facility] Comment on above: Performed By: #### U A #### [facility] [address] [place] [address] Dr. Alexis Brink Nitrite Ql (U) Negative Normal NEGATIVE [facility] Comment on above: Performed By: #### U A #### [facility] [address] [place] [address] Dr. Alexis Brink pH (U) 7.0 [pH] Normal 5-9 [facility] Comment on above: Performed By: #### U A #### [facility] [address] [address] [address] Alexis Brink SPEC GRAVITY 1.015 Normal 1.005-<=1.0 25 [facility] Comment on above: Performed By: #### U A #### [facility] [address] [address] [address] Alexis Brink UA PROTEIN Negative Normal NEGATIVE/ TRACE [facility] Comment on above: Performed By: #### U A #### [facility] [address] [address] [address] Alexis Brink Urobilinogen Qn (U) 1.0 {Kay'U}/dL Normal 0.2 - 1. 0 [facility] Comment on above: Performed By: #### U A #### [facility] [address] [place] [address] Dr. Alexis Brink XR CHEST 2 Von [...] hiatal hernia. IMPRESSION: 1. Mild nonspecific bronchial inflammation/bronchit is. Lungs clear without consolidation or effusion. Electronically authenticated by: LYDIA HAWLEY Date: 2021-12-06 15:42 Normal [facility] Nonvisit Note - PTon 018 Nonvisit Note - PT Cert letter refaxed for signature this date - third and final attempt. Normal [facility] Nonvisit Note - PTon 018 Nonvisit Note - PT Cert letter refaxed to Dr Gooden's office. Second attempt. Normal [facility] Coding Summary.on 01-25-2018 Coding Summary. CODING DATE: 01/25/2018 FINAL [facility] STATUS: PAYOR: Medicare ADMIT DX: [...] [place] Date Saved: 01/25/2018 10:54 am Normal [facility] Coding Summary. CODING DATE: 01/25/2018 FINAL [facility] STATUS: PAYOR: Medicare ADMIT DX: [...] [place] Date Saved: 01/25/2018 10:54 am Normal [facility] SURGICAL PATHOLOGYon 05-15-2 018 SURGICAL PATHOLOGY [facility]: [id number] Physician: CANDELARIO GOODEN MD FINAL DIAGNOSISRight hip, arthroplasty - Severe degenerative joint disease.J/shelbie 01/07/2018 Layton Díaz M.D.(Electronic Signature) SPECIME N SUBMITTEDA: RIGHT HIP BONE AND SOFT TISSUE [...] to 8.5 x 8.5 x 1.8 cm. Aircraft Design Engineer sectionsare submitted as follows: A1 soft tissue, A2 bone submitted afterdecalcification. KAUSHIK/lachelle 01/01/2018 Gross examination performed at [facility], [address] [place], [place] [id number] of Report: 01/07/2018Date of Procedure: 01/01/2018Date of Receipt: 01/01/2018Submitted by: CANDELARIO GOODEN MDLocation: [id number] interpretation performed at [facility], [address] [place], [place] [id number]. Normal [facility] Comment on above: Performed By: #### S ####See report for performing lab information. Vital Signs Date Time Vital Sign Value Performing Clinician Facility 04-03-2025 09:52-0400 Body height 167.64 cm [email or web address] Work Phone: [facility] 04-03-2025 09:52-0400 Body mass index (BMI) [Ratio] 29.9 kg/m2 [email or web address] DO Work Phone: [facility] 04-03-2025 09:52-0400 Body weight 84.02 kg [email or web address] Work Phone: [facility] 04-03-2025 09:52-0400 Diastolic blood pressure 71 mm[Hg] [email or web address] DO Work Phone: [facility] 04-03-2025 09:52-0400 Heart rate 70 /min [employer] Work Phone: [facility] 04-03-2025 09:52-0400 Respiratory rate 16 /min Cecilio Ball DO Work Phone: [facility] 04-03-2025 09:52-0400 Systolic blood pressure 158 mm[Hg] Cecilio Ball DO Work Phone: [facility] 03-27-2025 13:30-0400 Body height 167.64 cm Cecilio Ball DO Work Phone: [facility] 03-27-2025 13:30-0400 Body mass index (BMI) [Ratio] 30.2 kg/m2 Cecilio Ball DO Work Phone: [facility] 03-27-2025 13:30-0400 Body weight 84.99 kg Cecilio Ball DO Work Phone: [facility] 03-27-2025 13:30-0400 Diastolic blood pressure 72 mm[Hg] Cecilio Ball DO Work Phone: [facility] 03-27-2025 13:30-0400 Heart rate 80 /min Cecilio Ball DO Work Phone: [facility] 03-27-2025 13:30-0400 Respiratory rate 16 /min Cecilio Ball DO Work Phone: [facility] 03-27-2025 13:30-0400 Systolic blood pressure 158 mm[Hg] Cecilio Ball DO Work Phone: [facility] 02-11-2025 08:58-0400 Body height 167.64 cm Cecilio Ball DO Work Phone: [facility] 02-11-2025 08:58-0400 Body mass index (BMI) [Ratio] 28.4 kg/m2 Cecilio Ball DO Work Phone: [facility] 02-11-2025 08:58-0400 Body weight 79.94 kg Cecilio Ball DO Work Phone: [facility] 02-11-2025 08:58-0400 Diastolic blood pressure 71 mm[Hg] Cecilio Ball DO Work Phone: [facility] 02-11-2025 08:58-0400 Heart rate 71 /min Cecilio Ball DO Work Phone: [facility] 02-11-2025 08:58-0400 Respiratory rate 12 /min Cecilio Ball DO Work Phone: [facility] 02-11-2025 08:58-0400 SaO2% (BldA) [Mass fraction] 97 % Cecilio Ball DO Work Phone: [facility] 02-11-2025 08:58-0400 Systolic blood pressure 138 mm[Hg] Cecilio Ball DO Work Phone: [facility] 01-20-2025 10:50-0400 Body height 167.64 cm [facility] 01-20-2025 10:50-0400 Body mass index (BMI) [Ratio] 28.5 kg/m2 [facility] 01-20-2025 10:50-0400 Body weight 80.37 kg [facility] 01-20-2025 10:50-0400 Diastolic blood pressure 74 mm[Hg] [facility] 01-20-2025 10:50-0400 Heart rate 66 /min [facility] 01-20-2025 10:50-0400 Respiratory rate 16 /min [facility] 01-20-2025 10:50-0400 SaO2% (BldA) [Mass fraction] 95 % [facility] 01-20-2025 10:50-0400 Systolic blood pressure 134 mm[Hg] [facility] 12-09-2024 15:37-0400 Body height 167.64 cm [facility] 12-09-2024 15:37-0400 Body mass index (BMI) [Ratio] 28.9 kg/m2 [facility] 12-09-2024 15:37-0400 Body weight 81.36 kg [facility] 12-09-2024 15:37-0400 Diastolic blood pressure 74 mm[Hg] [facility] 12-09-2024 15:37-0400 Heart rate 75 /min [facility] 12-09-2024 15:37-0400 Respiratory rate 12 /min [facility] 12-09-2024 15:37-0400 SaO2% (BldA) [Mass fraction] 98 % [facility] 12-09-2024 15:37-0400 Systolic blood pressure 153 mm[Hg] [facility] 11-06-2024 09:02-0400 Body height 167.64 cm [facility] 11-06-2024 09:02-0400 Body mass index (BMI) [Ratio] 28.9 kg/m2 [facility] 11-06-2024 09:02-0400 Body weight 81.36 kg [facility] 11-06-2024 09:02-0400 Diastolic blood pressure 67 mm[Hg] [facility] 11-06-2024 09:02-0400 Heart rate 82 /min [facility] 11-06-2024 09:02-0400 Respiratory rate 24 /min [facility] 11-06-2024 09:02-0400 SaO2% (BldA) [Mass fraction] 98 % [facility] 11-06-2024 09:02-0400 Systolic blood pressure 130 mm[Hg] [facility] 10-01-2024 08:35-0500 Body height 167.64 cm [facility] 10-01-2024 08:35-0500 Body mass index (BMI) [Ratio] 28.5 kg/m2 [facility] 10-01-2024 08:35-0500 Body weight 80.34 kg [facility] 10-01-2024 08:35-0500 Diastolic blood pressure 74 mm[Hg] [facility] 10-01-2024 08:35-0500 Heart rate 67 /min [facility] 10-01-2024 08:35-0500 Respiratory rate 16 /min [facility] 10-01-2024 08:35-0500 Systolic blood pressure 155 mm[Hg] [facility] 05-28-2024 08:30-0400 Body height 167.64 cm [facility] 05-28-2024 08:30-0400 Body mass index (BMI) [Ratio] 27.1 kg/m2 [facility] 05-28-2024 08:30-0400 Body weight 76.31 kg [facility] 05-28-2024 08:30-0400 Diastolic blood pressure 89 mm[Hg] [facility] 05-28-2024 08:30-0400 Heart rate 61 /min [facility] 05-28-2024 08:30-0400 Respiratory rate 12 /min [facility] 05-28-2024 08:30-0400 Systolic blood pressure 139 mm[Hg] [facility] 01-22-2024 09:16-0400 Body height 167.64 cm [facility] 01-22-2024 09:16-0400 Body mass index (BMI) [Ratio] 29.3 kg/m2 [facility] 01-22-2024 09:16-0400 Body weight 82.55 kg [facility] 01-22-2024 09:16-0400 Diastolic blood pressure 72 mm[Hg] [facility] 01-22-2024 09:16-0400 Heart rate 64 /min [facility] 01-22-2024 09:16-0400 Respiratory rate 20 /min [facility] 01-22-2024 09:16-0400 Systolic blood pressure 131 mm[Hg] [facility] 09-28-2023 11:00-0500 Body height 167.64 cm Cecilio Ball Other [facility] Other 09-28-2023 11:00-0500 Body mass index (BMI) [Ratio] 30.24 kg/m2 Cecilio Ball Other [facility] Other 09-28-2023 11:00-0500 Body weight 85 kg Cecilio Ball Other [facility] Other 09-28-2023 11:00-0500 Respiratory rate 20 /min Cecilio Ball Other [facility] Other 09-28-2023 11:00-0500 SaO2% (BldA) [Mass fraction] 97 % Cecilio Ball Other [facility] Other 09-11-2023 10:45-0500 Body height 167.64 cm Cecilio Ball Other [facility] Other 09-11-2023 10:45-0500 Body mass index (BMI) [Ratio] 29.86 kg/m2 Cecilio Ball Other [facility] Other 09-11-2023 10:45-0500 Body temperature 97.5 [degF] Cecilio Ball Other [facility] Other 09-11-2023 10:45-0500 Body weight 83.92 kg Cecilio Ball Other [facility] Other 09-11-2023 10:45-0500 Diastolic blood pressure 81 mm[Hg] Cecilio Ball Other [facility] Other 09-11-2023 10:45-0500 Respiratory rate 20 /min Cecilio Ball Other [facility] Other 09-11-2023 10:45-0500 SaO2% (BldA) [Mass fraction] 98 % Cecilio Ball Other [facility] Other 09-11-2023 10:45-0500 Systolic blood pressure 161 mm[Hg] Cecilio Ball Other [facility] Other 08-01-2023 10:15-0500 Body height 167.64 cm Cecilio Ball Other [facility] Other 08-01-2023 10:15-0500 Body mass index (BMI) [Ratio] 29.86 kg/m2 Cecilio Ball Other [facility] Other 08-01-2023 10:15-0500 Body weight 83.92 kg Cecilio Ball Other [facility] Other 08-01-2023 10:15-0500 Diastolic blood pressure 79 mm[Hg] Cecilio Ball Other [facility] Other 08-01-2023 10:15-0500 Respiratory rate 20 /min Cecilio Ball Other [facility] Other 08-01-2023 10:15-0500 Systolic blood pressure 172 mm[Hg] Cecilio Ball Other [facility] Other 07-17-2023 10:15-0500 Body height 167.64 cm Cecilio Ball Other [facility] Other 07-17-2023 10:15-0500 Body mass index (BMI) [Ratio] 29.89 kg/m2 Cecilio Ball Other [facility] Other 07-17-2023 10:15-0500 Body weight 84.01 kg Cecilio Ball Other [facility] Other 07-17-2023 10:15-0500 Diastolic blood pressure 78 mm[Hg] Cecilio Ball Other [facility] Other 07-17-2023 10:15-0500 Respiratory rate 20 /min Cecilio Ball Other [facility] Other 07-17-2023 10:15-0500 Systolic blood pressure 172 mm[Hg] Cecilio Ball Other [facility] Other 07-10-2023 14:45-0500 Body height 167.64 cm Cecilio Ball Other [facility] Other 07-10-2023 14:45-0500 Body mass index (BMI) [Ratio] 29.47 kg/m2 Cecilio Ball Other [facility] Other 07-10-2023 14:45-0500 Body weight 82.83 kg Cecilio Ball Other [facility] Other 07-10-2023 14:45-0500 Diastolic blood pressure 80 mm[Hg] Cecilio Ball Other [facility] Other 07-10-2023 14:45-0500 Respiratory rate 20 /min Cecilio Ball Other [facility] Other 07-10-2023 14:45-0500 Systolic blood pressure 150 mm[Hg] Cecilio Ball Other [facility] Other 06-20-2023 08:30-0400 Body height 167.64 cm Cecilio Ball Other [facility] Other 06-20-2023 08:30-0400 Body mass index (BMI) [Ratio] 29.6 kg/m2 Cecilio Ball Other [facility] Other 06-20-2023 08:30-0400 Body weight 83.19 kg Cecilio Ball Other [facility] Other 06-20-2023 08:30-0400 Diastolic blood pressure 76 mm[Hg] Cecilio Ball Other [facility] Other 06-20-2023 08:30-0400 Respiratory rate 20 /min Cecilio Ball Other [facility] Other 06-20-2023 08:30-0400 Systolic blood pressure 157 mm[Hg] Cecilio Ball Other [facility] Other 05-30-2023 13:45-0400 Body height 167.64 cm Cecilio Ball Other [facility] Other 05-30-2023 13:45-0400 Body mass index (BMI) [Ratio] 28.95 kg/m2 Cecilio Ball Other [facility] Other 05-30-2023 13:45-0400 Body weight 81.38 kg Cecilio Ball Other [facility] Other 05-30-2023 13:45-0400 Diastolic blood pressure 78 mm[Hg] Cecilio Ball Other [facility] Other 05-30-2023 13:45-0400 Respiratory rate 16 /min Cecilio Ball Other [facility] Other 05-30-2023 13:45-0400 Systolic blood pressure 158 mm[Hg] Cecilio Ball Other [facility] Other 02-14-2023 08:30-0400 Body height 167.64 cm Cecilio Ball Other [facility] Other 02-14-2023 08:30-0400 Body mass index (BMI) [Ratio] 28.57 kg/m2 Cecilio Ball Other [facility] Other 02-14-2023 08:30-0400 Body weight 80.29 kg Cecilio Ball Other [facility] Other 02-14-2023 08:30-0400 Diastolic blood pressure 80 mm[Hg] Cecilio Ball Other [facility] Other 02-14-2023 08:30-0400 Respiratory rate 16 /min Cecilio Ball Other [facility] Other 02-14-2023 08:30-0400 Systolic blood pressure 135 mm[Hg] Cecilio Ball Other [facility] Other 02-01-2023 08:15-0400 Body height 167.64 cm Jose Enrique Landersisle II Other [facility] Other 02-01-2023 08:15-0400 Body mass index (BMI) [Ratio] 27.44 kg/m2 Jose Enrique [place]ers[place] II Other [facility] Other 02-01-2023 08:15-0400 Body weight 77.11 kg Jose Enrique [place] II Other [facility] Other 12-11-2022 10:30-0400 Body height 167.64 cm Cecilio Ball Other [facility] Other 12-11-2022 10:30-0400 Body mass index (BMI) [Ratio] 28.66 kg/m2 Cecilio Ball Other [facility] Other 12-11-2022 10:30-0400 Body weight 80.56 kg Cecilio Ball Other [facility] Other 12-11-2022 10:30-0400 Diastolic blood pressure 76 mm[Hg] Cecilio Ball Other [facility] Other 12-11-2022 10:30-0400 Respiratory rate 12 /min Cecilio Ball Other [facility] Other 12-11-2022 10:30-0400 Systolic blood pressure 151 mm[Hg] Cecilio Ball Other [facility] Other 11-09-2022 16:00-0400 Body mass index (BMI) [Ratio] 29.21 kg/m2 Jose Enrique Leblanc II Other [facility] Other 11-09-2022 16:00-0400 Body weight 82.1 kg Jose Enrique Leblanc II Other [facility] Other 11-09-2022 10:30-0400 Body height 167.64 cm Cecilio Ball Other [facility] Other 11-09-2022 10:30-0400 Body mass index (BMI) [Ratio] 29.23 kg/m2 Cecilio Ball Other [facility] Other 11-09-2022 10:30-0400 Body weight 82.15 kg Cecilio Ball Other [facility] Other 11-09-2022 10:30-0400 Diastolic blood pressure 79 mm[Hg] Cecilio Ball Other [facility] Other 11-09-2022 10:30-0400 Respiratory rate 20 /min Cecilio Ball Other [facility] Other 11-09-2022 10:30-0400 Systolic blood pressure 152 mm[Hg] Cecilio Ball Other [facility] Other 10-12-2022 10:00-0500 Body height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
--- NOTE | 2025-04-09 08:25 | PM.CN ---
Consult Note: HPI Data of Consult Patient: known to practice within the last 3 years Consult date: 04/09/25 Requesting Physician: Erica Hope NP Primary Care Provider: Cecilio Benjamin DO Consult Narrative Reason for consult: SIJ pain Narrative: Ruperto Thorpe a pleasant 84 year old male presents for evaluation post left SIJ injection. pt notes significant ongoing relief in left SIJ pain, > 80% improvement. since last visit is noting increased heaviness/weakness of BLE and pain in low back with standing and walking which improves significantly upon sitting. last underwent bilateral L4-5 TFESI 11/11 with >50% improvement in lumbar stenosis with NC greater than 3 months. pain today 10/27 increasing to 8/10 with lifting, standing, walking. utilizing tylenol and nabumatone prn with benefit without side effects. continues to engage in HEP as tolerated cc:: CC: Erica Hope NP [facility] Medical History Low back pain ?M54.50 - Low back pain, unspecified (ICD-10) Heartburn ?R12 - Heartburn (ICD-10) Sleep apnea ?G47.30 - Sleep apnea, unspecified (ICD-10) COPD (chronic obstructive pulmonary disease) ?J44.9 - Chronic obstructive pulmonary disease, unspecified (ICD-10) Asthma ?J45.909 - Unspecified asthma, uncomplicated (ICD-10) Hypertension ?I10 - Essential (primary) hypertension (ICD-10) Surgical History H/O cervical spine surgery ?Z98.890 - Other specified postprocedural states (ICD-10) S/P tonsillectomy and adenoidectomy ?Z90.89 - Acquired absence of other organs (ICD-10) History of ankle surgery ?Z98.890 - Other specified postprocedural states (ICD-10) S/P cholecystectomy ?Z90.49 - Acquired absence of other specified parts of digestive tract (ICD-10) S/P total hip arthroplasty ?Z96.649 - Presence of unspecified artificial hip joint (ICD-10) History of surgery on upper extremity ?Z98.890 - Other specified postprocedural states (ICD-10) Social History Little interest or pleasure in doing things: not at all Feeling down, depressed, or hopeless: not at all Meds Home Medications and Allergies Home Medications ?Medication ?Instructions ?Recorded ?Confirmed ?Type amlodipine 2.5 mg tablet 2.5 mg PO DAILY 01/28/24 03/30/25 History clonazepam 0.5 mg tablet 0.5 mg PO DAILY 01/28/24 01/05/25 History escitalopram oxalate 10 mg tablet 10 mg PO DAILY 01/28/24 03/30/25 History (Lexapro) nabumetone 500 mg tablet 500 mg PO BID 01/28/24 03/30/25 History omeprazole 20 mg capsule,delayed 20 mg PO DAILY 01/28/24 03/30/25 History release tamsulosin 0.4 mg capsule (Flomax) 0.4 mg PO DAILY 01/28/24 03/30/25 History albuterol sulfate 2.5 mg/3 mL 2.5 mg inhalation Q4H PRN 12/05/24 03/30/25 History (0.083 %) solution for nebulization shortness of breath or wheezing fluticasone 250 mcg-salmeterol 50 1 inh inhalation BID 12/05/24 03/30/25 History mcg/dose blistr powdr for inhalation cephalexin 500 mg capsule 500 mg PO Q8H 10 days #30 caps 03/21/25 Rx BLACK ELDERBERRY 03/30/25 History ascorbic acid (vitamin C) 1,000 mg 1 g PO DAILY 03/30/25 03/30/25 History tablet (Vitamin C) aspirin 81 mg tablet 81 mg PO DAILY 03/30/25 03/30/25 History baclofen 10 mg tablet mg 03/30/25 History calcium phosphate,dibasic 77 tab PO DAILY 03/30/25 History mg-vitamin D3 400 unit tablet doxycycline hyclate 100 mg capsule mg 03/30/25 History fexofenadine 180 mg tablet mg 03/30/25 History melatonin 5 mg capsule 5 mg HS PRN sleep 03/30/25 History montelukast 10 mg tablet mg 03/30/25 History multivitamin 1 tab PO DAILY 03/30/25 03/30/25 History Allergies Allergy/AdvReac Type Severity Reaction Status Date / Time bacitracin AdvReac Mild Rash Verified 03/30/25 11:12 Exam Constitutional Documenting provider has reviewed patient's vital signs: yes Common normals: no apparent distress, oriented x3, healthy appearing, alert and well nourished General appearance: cooperative HENMT Common normals: normocephalic, hearing grossly normal bilaterally and moist oral mucous membranes Head and scalp: normocephalic Eye Common normals: PERRL Pupil: PERRL Neck & C-Spine Common normals: full ROM General: normal visual inspection Chest Common normals: inspection of chest normal Respiratory Common normals: normal respiratory effort, no retractions and no use of accessory muscles Back & Pelvis Lumbar spine/lower back: straight leg raise positive right and straight leg raise positive left; ROM not limited, no pain with ROM and no lumbar spinal tenderness Sacroiliac joints: SI joints normal Other: left negative natasha(patricks), gaenslens, thigh thrust, compression test decreased sensation bilateral L4/5 strength 4/5 in BLE Neuro Common normals: oriented x3 Sensorium/orientation: alert Psych Common normals: mental status grossly normal, thought process normal, cooperative, affect normal, speech normal and activity/motor behavior normal Speech: normal speech Thought process: normal thought process Results Additional Findings Additional findings: If on a controlled substance or opioids, I have checked an [place] report on this patient and there are no aberrancies noted in the prescribing history.??If on a controlled substance or opioid a drug screen was completed and reviewed within the last year, and if there has not been a drug screen completed we ordered one today to monitor higher risk, state monitored pain medication use. As part of providing excellent, safe, comprehensive care, the following was completed at our patient's visit: 1. A medication reconciliation and review to ensure accurate knowledge of current/active medications, including asking our patients to inform us about any [id number] medications or herbal remedies/nutritional supplements/alternative remedies. 2. A review to specifically ensure our patients have had annual screening for screening for depression, screening for tobacco use, and screening for unhealthy alcohol use. For concerning screenings had a discussion with the patient, provided patient education, and recommended follow-up with primary care provider when appropriate. If patient noted with a risk of falling, they received education on strength, gait, and balance training to prevent future risk of falling. Portions of this note may have been carried over from the previous visit and updated as appropriate. Please note this office utilizes paper charting in addition to the electronic medical record. A list of current medications, vitals, and PMH is available there as the clinical staff outside of myself do not have access to [employer] charting during the clinic day operations. As part of providing quality comprehensive care the current medications, vitals, and PMH were reviewed in the paper chart. Assessment and Plan Assessment and Plan (1) Lumbar stenosis with neurogenic claudication: Assessment and Plan: The patient has had over 3 months of moderate to severe low back and BLE pain with functional impairment and inadequate response to conservative care including NSAIDS (unless there are contraindication such as concurrent blood thinners), multiple oral or topical pain medications, and home exercise program/physical therapy.? Patient has completed >6 weeks of guided home exercise program and/or formal physical therapy program without relief of their symptoms.? The Oswestry Disability Index was completed, and the patient scored a 24%.? ?? (2) Sacroiliitis: Assessment and Plan: 03/30/25 left SIJ injection >80% improvement ongoing Plan repeat bilateral L4-5 TFESI under fluoroscopy for lumbar stenosis with NC, prior injection provided at least 50% improvement for 3 months continue HEP as tolerated continue current medications f/u after injection
== END 2025-04-09 08:10 | disposition home or self-care (01) ==
LOC: PM 08:09
PROVIDERS: PCP Internal Medicine; Visit Provider Nurse Practitioner
DX: M48.062 Spinal stenosis, lumbar region with neurogenic claudication (principal); M46.1 Sacroiliitis, not elsewhere classified
CPT/HCPCS: G0463

== ENCOUNTER 2025-04-27 12:01 | Day surgery (SDC) | payer MEDICARE, OTHER, SELFPAY ==
[2025-04-27 12:10] VITALS: BP 174/73; PULSE 61; TEMP 36.5; O2SAT 98
--- OUTSIDE RECORDS SUMMARY | 2025-04-27 12:28 | XMS_ITS | CCD ---
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 Name Role Phone BRANDON CECILIO~[phone] UNKNOWN Unavailable Unavailable CANDELARIO GOODEN Unavailable Unavailable GIACOMO, CANDELARIO Campbell Unavailable Unavailable GIACOMO, CANDELARIO Campbell Unavailable Unavailable Cecilio Benjamin Unavailable BRANDON, [...] Consulting Unavailable BRANDON, DR RUIZ Admitting Unavailable BALL, DR RUIZ Attending Unavailable BALL, DR RUIZ Primary Care Unavailable BALL, DR RUIZ Consulting Unavailable HAWLEY, WINCHA Consulting Unavailable MD Jose Enrique Leblanc II Attending Provider [phone] Jose Enrique Leblanc II Unavailable Cecilio Benjamin DO Primary Care Provider DELIO JAEGER Admitting Unavailable DELIO JAEGER Attending Unavailable CECILIO BENJAMIN Primary Care Unavailable Cecilio Benjamin DO Primary Care Provider [phone] Jerry Gifford DO Attending Provider Cecilio Benjamin DO Attending Provider [phone] Faheem Sevilla MD Attending Provider [phone] Cecilio Benjamin DO Primary Care Provider Cecilio Benjamin DO Attending Provider [phone] Alyx Vargas PA-C Attending Provider Zaira Reed CMA Attending Provider Unavaila Faheem Yao Attending Unavailable Cecilio Benjamin Primary Care Unavailable Faheem Sevilla Admitting Unavailable Faheem Sevilla Attending Unavailable Cecilio Benjamin Primary Care Unavailable Di, Faheem Admitting Unavailable Gieditis , Andrius Carreno Attending Unavailable Giedraitis , Andrius Kipytautherlinda Attending Unavailable Giedraitis MD, Andrius Vytautherlinda Attending Unavailable Giedraitis MD, Andrius Vytautas Attending Unavailable Giedraitis MD, Andrius Vytautas Attending Unavailable Giedraitis MD, Andrius Vytautas Attending Unavailable Giedraitis MD, Andrius Vytautherlinda Attending Unavailable Allergies Allergy Classification Reported Allergen(s) Allergy Type Date of Onset Reaction(s) Facility (7 sources) bacitracin; Translations: [bacitracin] Drug Allergy 09-11-2013 Unknown [facility] Repository (19 sources) Albuterol Drug Allergy Unknown [employer] Other (20 sources) HMG-CoA reductase inhibitor Drug allergy Unknown [employer] Other (1 source) [id number] Reductase Inhibitor Drug allergy (disorder) 03-31-2025 [facility] Repository Medications Current Medications Medication Drug Class(es) [...] tablet Active 2.5 MG PO Daily 90 April 03, 2025 10:15am Complies with [...] Comment on above: Take 1 tablet by chirsten th twice daily. (Blood thinner to prevent [...] 11:06am Start: 07-10-2023 take 1 capsule by [facility] every twelve hours Doxycycline Hyclate 100 MG [...] Active 10 MG PO Daily at bedtime March 13, 2025 9:43am Complies with drug [...] Active 0.4 MG PO Daily at bedtime April 03, 2025 10:17am Complies with drug [...] Discontinued 1 APPLIC TOPICAL Twice daily October 19, 2023 11:08am January 29, 2025 [...] on above: Take 4 tablets by [facility] 1 hour prior to procedure and 2 [...] mg tablet Discontinued 0.5 MG PO Daily 90 October 01, 2024 10:10am March 30, 2025 [...] on above: Take 1 capsule by [facility] twice daily. (Stool softener) ferrous sulfate 325 mg oral tablet (1 source) Start: 01-03-20 End: 02-20-20 take 1 tablet by mouth twice daily at mealtime ferrous sulfate 325 mg (65 mg iron) tablet Take 1 tablet by mouth twice daily with meals. (Iron supplement) 30 tablet 0 01/02/2018 02/19/2023 Discontinued Comment on above: Take 1 tablet by [facility] twice daily with meals. (Iron supplement) FISH OIL-DHA-EPA ORAL (4 sources) take 1 capsule by mouth once daily FISH OIL-DHA-EPA ORAL Take 1 capsule by mouth once daily. 0 Active Comment on above: Take 1 capsule by [facility] once daily. Fluticasone Propionate (9 sources) Corticosteroid Start: 01-21-20 End: 01-21-20 Fluticasone Propionate 250 mcg/actuation blister with device Discontinued 1 INH INHALATION Every 12 hours 60 January 20, 2025 12:00am January 20, 2025 11:31am 60 actuat fluticasone propionate 0.25 mg/actuat / salmeterol 0.05 mg/actuat dry powder inhaler (20 sources) Corticosteroid, beta2-Adrenergic Agonist Start: 01-21-20 End: 03-27-20 Fluticasone Propion-Salmeterol (Advair Diskus) 250-50 mcg/dose blister [...] device Discontinued 1 INH INHALATION Twice daily January 22, 2024 12:00am November 07, 2024 [...] cream with perineal applicator Discontinued 1 APPLIC AK 1 to 2 times per day as [...] mo ut. Take 2 tablets by mo uth daily [...] End: 2022 [employer] ([employer]) [facility] Indications: Primary osteoarthritis of right hip [place] [...] days Start: 09-11-2023 take 1 tablet by [facility] twice daily predniSONE 20 MG 1 tablet [...] 01-22-2024 Episodic Other aftercare (2 sources) Other detention (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 therapy; Translations: [[facility] CUR[facility]Y] Onset: 11-06-2022 Episodic Other [...] By: Olvin Aviles on 03-31-2025 Study report [facility] [address] [place] [address] XRay Report Signed Patient: Neisha Thorpe MR#: [id number] : 1940 Acct:[id number] Age/Sex: 84 / M ADM Date: 5 Loc: [facility] Room: Type: [facility] CLI Attending Dr: Faheem Sevilla MD Copies [...] Aviles M.D. 03/31/2025 12:34 PM Dictation Location: [facility]20 Transcribed By: [facility] 03/31/25 1234 Dictated By: Jerry Aviles DO 03/31/25 1233 Signed By: 03/31/25 1234 [facility] XR wrist LT 2Von 03-31-2025 XR wrist LT 2V [facility] [place] [address] XRay Report Signed Patient: Neisha Thorpe MR#: [id number] 5 : 1940 Acct:[id number] Age/Sex: 84 / M ADM Date: 03/31/25 Loc: [facility] Room: Type: [facility] CLI Attending Dr: Faheem Sevilla MD Copies [...] Aviles M.D. 03/31/2025 12:34 PM Dictation Location: [place] [address] Transcribed By: [facility] 03/31/25 1234 Dictated By: Jerry Aviles DO 03/31/25 1233 Signed By: 03/31/25 1234 Normal [facility] Basophils Auto (Bld) [#/Vol] Ordered By: Alyx Vargas on 03-21-2025 Basophils (Bld) [#/Vol] 0.0 10 3/uL 0.0-0.1 [facility] Basophils/100 WBC Auto (Bld) Ordered By: Alyx Vargas on 03-21-2025 Basophils/100 WBC (Bld) 0.4 % 0.2-2.0 [facility] Eosinophils/100 WBC Auto (Bl d)Ordered By: Alyx Vargas on 03-21-2025 Eosinophils/100 WBC (Bld) 6.9 % 0.9-7.0 [facility] Erythrocyte distribution wid th Auto (RBC) [Ratio]Ordered By: Alyx Vargas on 03-21-2025 Erythrocyte distribution width (RBC) [Ratio] 11.9 % 11.0-15.0 [facility] Estimated glomerular filtrat ion rate (GFR) non- AmericanOrdered By: Alyx Vargas on 03-21-2025 GFR/1.73 sq M.predicted among non-blacks MDRD (S/P/Bld) [Vol rate/Area] 50 mL/min/{1.73_m2} Low >=60 mL/min/1.73 m 2 [facility] Hematocrit Auto (Bld) [Volum e fraction]Ordered By: Alyx Vargas on 03-21-2025 Hematocrit (Bld) [Volume fraction] 40.7 % Low 42.0-54.0 [facility] Hemoglobin [Mass/volume] in BloodOrdered By: Alyx Vargas on 03-21-2025 Hemoglobin (Bld) [Mass/Vol] 14.1 g/dL 14.0-18.0 [facility] Laboratory - Chemistry and C hemistry - challengeOrdered By: Alyx Vargas on 03-21-2025 Calcium [Mass/Vol] 9.0 mg/dL 8.5-10.1 [facility] Chloride [Moles/Vol] 103 mmol/L 98-107 [facility] CO2 [Moles/Vol] 32.4 mmol/L High 21.0-32.0 [facility] Creatinine [Mass/Vol] 1.37 mg/dL High 0.70-1.30 [facility] GFR/1.73 sq M.predicted MDRD (S/P/Bld) [Vol rate/Area] mL/min/{1.73_m2} >=60 mL/min/1.73 m 2 [facility] Glucose [Mass/Vol] 109 mg/dL High 74-106 [facility] Potassium [Moles/Vol] 4.4 mmol/L 3.5-5.1 [facility] Sodium [Moles/Vol] 140 mmol/L 136-145 [facility] Urea nitrogen [Mass/Vol] 19.0 mg/dL High 7.0-18.0 [facility] Urea nitrogen/Creatinine [Mass ratio] 13.9 mg/mg [facility] Laboratory - Hematology and Cell countsOrdered By: Alyx Vargas on 03-21-2025 Immature granulocytes/100 WBC (Bld) 0.3 % 0.0-0.5 [facility] Leukocytes [#/volume] correc poncho for nucleated erythrocytes in Blood by Automated counOrdered By: Alyx Vargas on 03-21-2025 WBC corrected for nucl RBC Auto (Bld) [#/Vol] 8.0 10 3/uL 4.0-11.0 [facility] Lymphocytes Auto (Bld) [#/Vo l]Ordered By: Alyx Vargas on 03-21-2025 Lymphocytes (Bld) [#/Vol] 1.2 10 3/uL 1.2-3.8 [facility] Lymphocytes/100 WBC Auto (Bl d)Ordered By: Alyx Vargas on 03-21-2025 Lymphocytes/100 WBC (Bld) 15.5 % Low 20.5-60.0 [facility] MCH Auto (RBC) [Entitic mass ]Ordered By: Alyx Vargas on 03-21-2025 MCH (RBC) [Entitic mass] 32.9 pg 25.9-34.0 [facility] MCHC Auto (RBC) [Mass/Vol]Or dered By: Alyx Vargas on 03-21-2025 MCHC (RBC) [Mass/Vol] 34.6 g/dL 29.9-35.2 [facility] MCV Auto (RBC) [Entitic vol] Ordered By: Alyx Vargas on 03-21-2025 MCV (RBC) [Entitic vol] 94.9 fL High 80.0-94.0 [facility] Monocytes Auto (Bld) [#/Vol] Ordered By: Alyx Vargas on 03-21-2025 Monocytes (Bld) [#/Vol] 0.8 10 3/uL 0.3-0.8 [facility] Monocytes/100 WBC Auto (Bld) Ordered By: Alyx Vargas on 03-21-2025 Monocytes/100 WBC (Bld) 9.4 % 1.7-12.0 [facility] Neutrophils Auto (Bld) [#/Vo l]Ordered By: Alyx Vargas on 03-21-2025 Neutrophils (Bld) [#/Vol] 5.4 10 3/uL 1.4-6.5 [facility] Neutrophils/100 WBC Auto (Bl d)Ordered By: Alyx Vargas on 03-21-2025 Neutrophils/100 WBC (Bld) 67.5 % 43.0-75.0 [facility] No Panel InformationOrdered By: Alyx Vargas on 03-21-2025 Eosinophils # (Auto) 0.6 10 3/uL 0.0-0.7 [facility] Immature Granulocyte # (Auto) 0.02 10 3/uL 0.00-0.03 [facility] Platelet mean volume Auto (B ld) [Entitic vol]Ordered By: Alyx Vargas on 03-21-2025 Platelet mean volume (Bld) [Entitic vol] 10.5 fL 9.5-13.5 [facility] Platelets Auto (Bld) [#/Vol] Ordered By: Alyx Vargas on 03-21-2025 Platelets (Bld) [#/Vol] 136 10 3/uL Low 150-450 [facility] RBC Auto (Bld) [#/Vol]Ordere d By: Alyx Vargas on 03-21-2025 RBC (Bld) [#/Vol] 4.29 10 6/uL Low 4.70-6.10 [facility] Serum or plasma anion gap de terminationOrdered By: Alyx Vargas on 03-21-2025 Anion gap [Moles/Vol] 9.0 mmol/L [facility] Basophils Auto (Bld) [#/Vol] Ordered By: Cecilio Benjamin on 02-18-2025 Basophils (Bld) [#/Vol] 0.1 10 3/uL 0.0-0.1 [facility] Basophils/100 WBC Auto (Bld) Ordered By: Cecilio Benjamin on 02-18-2025 Basophils/100 WBC (Bld) 0.9 % 0.2-2.0 [facility] Cholesterol in LDL Calc [Mas s/Vol]Ordered By: Cecilio Benjamin on 02-18-2025 Cholesterol in LDL [Mass/Vol] 138.0 mg/dL [facility] Comment on above: <100 mg/dl [id number] 0-129 mg/dl NEAR OR ABOVE [id number] mg/dl BORDERLINE [id number] mg/dl HIGH>190 mg/dl VERY HIGH Cholesterol in VLDL Calc [Ma ss/Vol]Ordered By: Cecilio Benjamin on 02-18-2025 Cholesterol in VLDL [Mass/Vol] 16.0 mg/dL [facility] Eosinophils/100 WBC Auto (Bl d)Ordered By: Cecilio Benjamin on 02-18-2025 Eosinophils/100 WBC (Bld) 7.3 % High 0.9-7.0 [facility] Erythrocyte distribution wid th Auto (RBC) [Ratio]Ordered By: Cecilio Benjamin on 02-18-2025 Erythrocyte distribution width (RBC) [Ratio] 12.4 % 11.0-15.0 [facility] Estimated glomerular filtrat ion rate (GFR) non- AmericanOrdered By: Cecilio Benjamin on 02-18-2025 GFR/1.73 sq M.predicted among non-blacks MDRD (S/P/Bld) [Vol rate/Area] 53 mL/min/{1.73_m2} Low >=60 mL/min/1.73 m 2 [facility] Globulin Calc (S) [Mass/Vol] Ordered By: Cecilio Benjamin on 02-18-2025 Globulin (S) [Mass/Vol] 3.2 g/dL [facility] Hematocrit Auto (Bld) [Volum e fraction]Ordered By: Cecilio Benjamin on 02-18-2025 Hematocrit (Bld) [Volume fraction] 42.5 % 42.0-54.0 [facility] Hemoglobin [Mass/volume] in BloodOrdered By: Cecilio Benjamin on 02-18-2025 Hemoglobin (Bld) [Mass/Vol] 15.1 g/dL 14.0-18.0 [facility] Laboratory - Chemistry and C hemistry - challengeOrdered By: Cecilio Benjamin on 02-18-2025 Albumin [Mass/Vol] 3.6 g/dL 3.4-5.0 [facility] ALP [Catalytic activity/Vol] 59 U/L 46-116 [facility] ALT [Catalytic activity/Vol] 24 U/L 16-63 [facility] AST [Catalytic activity/Vol] 18 U/L 15-37 [facility] Bilirubin [Mass/Vol] 0.8 mg/dL 0.2-1.0 [facility] Calcium [Mass/Vol] 9.0 mg/dL 8.5-10.1 [facility] Chloride [Moles/Vol] 104 mmol/L 98-107 [facility] Cholesterol [Mass/Vol] 209 mg/dL High <=200 [facility] Cholesterol in HDL [Mass/Vol] 55 mg/dL 40-60 [facility] Comment on above: > or =60 mg/dl - LOW CARDIOVASCULAR RISK<40 mg/dl - HIGH CARDIOVASCULAR RISK CO2 [Moles/Vol] 29.6 mmol/L 21.0-32.0 [facility] Creatinine [Mass/Vol] 1.29 mg/dL 0.70-1.30 [facility] GFR/1.73 sq M.predicted MDRD (S/P/Bld) [Vol rate/Area] mL/min/{1.73_m2} >=60 mL/min/1.73 m 2 [facility] Glucose [Mass/Vol] 90 mg/dL 74-106 [facility] Potassium [Moles/Vol] 4.5 mmol/L 3.5-5.1 [facility] Protein [Mass/Vol] 6.8 g/dL 6.4-8.2 [facility] Sodium [Moles/Vol] 141 mmol/L 136-145 [facility] Triglyceride [Mass/Vol] 80 mg/dL <=150 [facility] TSH Qn 1.229 m[IU]/L 0.358-3.740 [facility] Urea nitrogen [Mass/Vol] 22.0 mg/dL High 7.0-18.0 [facility] Urea nitrogen/Creatinine [Mass ratio] 17.1 mg/mg [facility] Laboratory - Hematology and Cell countsOrdered By: Cecilio Benjamin on 02-18-2025 Immature granulocytes/100 WBC (Bld) 0.8 % High 0.0-0.5 [facility] Leukocytes [#/volume] correc poncho for nucleated erythrocytes in Blood by Automated counOrdered By: Cecilio Benjamin on 02-18-2025 WBC corrected for nucl RBC Auto (Bld) [#/Vol] 6.5 10 3/uL 4.0-11.0 [facility] Lymphocytes Auto (Bld) [#/Vo l]Ordered By: Cecilio Benjamin on 02-18-2025 Lymphocytes (Bld) [#/Vol] 1.5 10 3/uL 1.2-3.8 [facility] Lymphocytes/100 WBC Auto (Bl d)Ordered By: Cecilio Benjamin on 02-18-2025 Lymphocytes/100 WBC (Bld) 22.4 % 20.5-60.0 [facility] MCH Auto (RBC) [Entitic mass ]Ordered By: Cecilio Benjamin on 02-18-2025 MCH (RBC) [Entitic mass] 33.3 pg 25.9-34.0 [facility] MCHC Auto (RBC) [Mass/Vol]Or dered By: Cecilio Benjamin on 02-18-2025 MCHC (RBC) [Mass/Vol] 35.5 g/dL High 29.9-35.2 [facility] MCV Auto (RBC) [Entitic vol] Ordered By: Cecilio Benjamin on 02-18-2025 MCV (RBC) [Entitic vol] 93.8 fL 80.0-94.0 [facility] Monocytes Auto (Bld) [#/Vol] Ordered By: Cecilio Benjamin on 02-18-2025 Monocytes (Bld) [#/Vol] 0.6 10 3/uL 0.3-0.8 [facility] Monocytes/100 WBC Auto (Bld) Ordered By: Cecilio Benjamin on 02-18-2025 Monocytes/100 WBC (Bld) 9.3 % 1.7-12.0 [facility] Neutrophils Auto (Bld) [#/Vo l]Ordered By: Cecilio Benjamin on 02-18-2025 Neutrophils (Bld) [#/Vol] 3.8 10 3/uL 1.4-6.5 [facility] Neutrophils/100 WBC Auto (Bl d)Ordered By: Cecilio Benjamin on 02-18-2025 Neutrophils/100 WBC (Bld) 59.3 % 43.0-75.0 [facility] No Panel InformationOrdered By: Cecilio Benjamin on 02-18-2025 Eosinophils # (Auto) 0.5 10 3/uL 0.0-0.7 [facility] Immature Granulocyte # (Auto) 0.05 10 3/uL High 0.00-0.03 [facility] Prostate Specific Antigen Screen 3.81 ng/mL <=4.00 [facility] Platelet mean volume Auto (B ld) [Entitic vol]Ordered By: Cecilio Benjamin on 02-18-2025 Platelet mean volume (Bld) [Entitic vol] 10.2 fL 9.5-13.5 [facility] Platelets Auto (Bld) [#/Vol] Ordered By: Cecilio Benjamin on 02-18-2025 Platelets (Bld) [#/Vol] 147 10 3/uL Low 150-450 [facility] RBC Auto (Bld) [#/Vol]Ordere d By: Cecilio Benjamin on 02-18-2025 RBC (Bld) [#/Vol] 4.53 10 6/uL Low 4.70-6.10 [facility] Serum or plasma albumin/glob ulin mass ratioOrdered By: Cecilio Benjamin on 02-18-2025 Albumin/Globulin [Mass ratio] 1.1 {ratio} [facility] Serum or plasma anion gap de terminationOrdered By: Cecilio Benjamin on 02-18-2025 Anion gap [Moles/Vol] 11.9 mmol/L [facility] Serum or plasma total choles terol/high density lipoprotein (HDL) cholesterol mass ratOrdered By: Cecilio Benjamin on 02-18-2025 Cholesterol.total/Yelena sterol in HDL [Mass ratio] 3.8 {ratio} [facility] Comment on above: 3.3 - 4.4 LOW RISK4. 4 - 7.1 AVERAGE RISK7.1 - 11.0 MODERATE RISK>11.0 HIGH RISK X-ray reportOrdered By: Lorenzo Gomez on 02-17-2025 Study report [facility] [address] [place] [address] XRay Report Signed Patient: Neisha Thorpe MR#: [id number] : 1940 Acct:[id number] Age/Sex: 84 / M ADM Date: 5 Loc: [facility] [place] Room: Type: [facility] Attending Dr: Faheem Sevilla MD Copies [...] Jr., D.OLainey 02/17/2025 10:32 AM Dictation Location: [facility]-PC-23 Transcribed By: COLIN 02/17/25 1032 Dictated By: Candelario Gomez Jr, DO 02/17/25 1031 Signed By: 02/17/25 1032 [facility] XR wrist LT min 3V*on 2024 XR wrist LT min 3V* [facility] [address] [place] [address] XRay Report Signed Patient: Neisha Thorpe MR#: [id number] 5 : 1940 Acct:[id number] Age/Sex: 84 / M ADM Date: 02/17/25 Loc: [facility] Room: Type: [facility] Attending Dr: Faheem Sevilla MD Copies [...] Jr., D.O. 02/17/2025 10:32 AM Dictation Location: [facility] Transcribed By: COLIN 02/17/25 1032 Dictated By: Candelario Gomez Jr, DO 02/17/25 1031 Signed By: 02/17/25 1032 Normal [facility] Basophils Auto (Bld) [#/Vol] on 12-05-2024 Basophils (Bld) [#/Vol] Automated basoph il count 0.0-0.1 [facility] Basophils (Bld) [#/Vol] 0.0 10 3/uL 0.0-0.1 [facility] Basophils/100 WBC Auto (Bld) on 12-05-2024 Basophils/100 WBC (Bld) Automated basophil % 0. 2-2.0 [facility] Basophils/100 WBC (Bld) 0.5 % 0.2-2.0 [facility] Eosinophils/100 WBC Auto (Bl d)on 12-05-2024 Eosinophils/100 WBC (Bld) Automated eosinophil % 0.9-7.0 [facility] Eosinophils/100 WBC (Bld) 4.8 % 0.9-7.0 [facility] Erythrocyte distribution wid th Auto (RBC) [Ratio]on 12-05-2024 Erythrocyte distribution width (RBC) [Ratio] Erythrocyte distribution width [Ratio] by Automated count 11.0-15.0 [facility] Erythrocyte distribution width (RBC) [Ratio] 12.7 % 11.0-15.0 [facility] Estimated glomerular filtrat ion rate (GFR) non- Americanon 12-05-2024 GFR/1.73 sq M.predicted among non-blacks MDRD (S/P/Bld) [Vol rate/Area] Estimated glomerular filtration rate (GFR) non- Low >=60 mL/min/1.73 m 2 [facility] GFR/1.73 sq M.predicted among non-blacks MDRD (S/P/Bld) [Vol rate/Area] 51 mL/min/{1.73_m2} Low >=60 mL/min/1.73 m 2 [facility] Hematocrit Auto (Bld) [Volum e fraction]on 12-05-2024 Hematocrit (Bld) [Volume fraction] Hematocrit [Volume Fraction] of Blood by Automated count Low 42.0-54.0 [facility] Hematocrit (Bld) [Volume fraction] 41.1 % Low 42.0-54.0 [facility] Hemoglobin [Mass/volume] in Bloodon 12-05-2024 Hemoglobin (Bld) [Mass/Vol] Hemoglobin [Mass/volume] in Blood 14.0-18.0 [facility] Hemoglobin (Bld) [Mass/Vol] 14.1 g/dL 14.0-18.0 [facility] Laboratory - Chemistry and C hemistry - challengeon 12-05-2024 Calcium [Mass/Vol] 8.9 mg/dL 8.5-10.1 [facility] Chloride [Moles/Vol] 103 mmol/L 98-107 [facility] CO2 [Moles/Vol] 29.1 mmol/L 21.0-32.0 [facility] Creatinine [Mass/Vol] 1.33 mg/dL High 0.70-1.30 [facility] GFR/1.73 sq M.predicted MDRD (S/P/Bld) [Vol rate/Area] mL/min/{1.73_m2} >=60 mL/min/1.73 m 2 [facility] Glucose [Mass/Vol] 101 mg/dL 74-106 [facility] Magnesium [Mass/Vol] 1.8 mg/dL 1.8-2.4 [facility] Potassium [Moles/Vol] 4.2 mmol/L 3.5-5.1 [facility] Sodium [Moles/Vol] 139 mmol/L 136-145 [facility] Urea nitrogen [Mass/Vol] 24.0 mg/dL High 7.0-18.0 [facility] Urea nitrogen/Creatinine [Mass ratio] 18.0 mg/mg [facility] Laboratory - Hematology and Cell countson 12-05-2024 Immature granulocytes/100 WBC (Bld) 0.2 % 0.0-0.5 [facility] Laboratory - Microbiology an d Antimicrobial susceptibilityon 12-05-2024 SARS-CoV-2 (COVID-19) RNA RICKY+probe Ql (Unsp spec) Negative NEGATIVE [facility] Comment on above: This test has not [...] erythrocytes in Blood by Automated coun 4.0-11.0 [facility] WBC corrected for nucl RBC Auto (Bld) [#/Vol] 5.5 10 3/uL 4.0-11.0 [facility] Lymphocytes Auto (Bld) [#/Vo l]on 12-05-2024 Lymphocytes (Bld) [#/Vol] Lymphocytes [#/volume] in Blood by Automated count Low 1.2-3.8 [facility] Lymphocytes (Bld) [#/Vol] 0.9 10 3/uL Low 1.2-3.8 [facility] Lymphocytes/100 WBC Auto (Bl d)on 12-05-2024 Lymphocytes/100 WBC (Bld) Lymphocytes/100 leukocytes in Blood by Automated count Low 20.5-60.0 [facility] Lymphocytes/100 WBC (Bld) 16.7 % Low 20.5-60.0 [facility] MCH Auto (RBC) [Entitic mass ]on 12-05-2024 MCH (RBC) [Entitic mass] MCH [Entitic mass] by Automated count 25.9-34.0 [facility] MCH (RBC) [Entitic mass] 32.3 pg 25.9-34.0 [facility] MCHC Auto (RBC) [Mass/Vol]on 12-05-2024 MCHC (RBC) [Mass/Vol] MCHC [Mass/volume] by Automated count 29.9-35.2 [facility] MCHC (RBC) [Mass/Vol] 34.3 g/dL 29.9-35.2 [facility] MCV Auto (RBC) [Entitic vol] on 12-05-2024 MCV (RBC) [Entitic vol] MCV [Entitic vol ume] by Automated count High 80.0-94.0 [facility] MCV (RBC) [Entitic vol] 94.3 fL High 80.0-94.0 [facility] Monocytes Auto (Bld) [#/Vol] on 12-05-2024 Monocytes (Bld) [#/Vol] Automated blood monocyte count 0.3-0.8 [facility] Monocytes (Bld) [#/Vol] 0.6 10 3/uL 0.3-0.8 [facility] Monocytes/100 WBC Auto (Bld) on 12-05-2024 Monocytes/100 WBC (Bld) Automated monocyte % 1. 7-12.0 [facility] Monocytes/100 WBC (Bld) 10.1 % 1.7-12.0 [facility] Neutrophils Auto (Bld) [#/Vo l]on 12-05-2024 Neutrophils (Bld) [#/Vol] Neutrophils [#/volume] in Blood by Automated count 1.4-6.5 [facility] Neutrophils (Bld) [#/Vol] 3.7 10 3/uL 1.4-6.5 [facility] Neutrophils/100 WBC Auto (Bl d)on 12-05-2024 Neutrophils/100 WBC (Bld) Automated neutrophil % 43.0-75.0 [facility] Neutrophils/100 WBC (Bld) 67.7 % 43.0-75.0 [facility] No Panel Informationon 12-05 Eosinophils # (Auto) 0.3 10 3/uL 0.0-0.7 [facility] Immature Granulocyte # (Auto) 0.01 10 3/uL 0.00-0.03 [facility] Troponin I High Sensitivity 15.5 pg/mL 4.0-76.1 [facility] Comment on above: CUT-OFF POINTS HAVE BEEN [...] INFORMATION. Bedside Influenza Type A Antigen Negative [facility] Comment on above: Negative for Flu A p rotein antigen. Infection due to Flu Acannot be ruled out. Flu A antigen in the sample may bebelow the detection limit of the test. Bedside Influenza Type B Antigen Negative [facility] Comment on above: Negative for Flu B p rotein antigen. Infection due to Flu Bcannot be ruled out. Flu B antigen in the sample may bebelow the detection limit of the test. Platelet mean volume Auto (B ld) [Entitic vol]on 12-05-2024 Platelet mean volume (Bld) [Entitic vol] Platelet mean volume [Entitic volume] in Blood by Automated count 9.5-13.5 [facility] Platelet mean volume (Bld) [Entitic vol] 10.3 fL 9.5-13.5 [facility] Platelets Auto (Bld) [#/Vol] on 12-05-2024 Platelets (Bld) [#/Vol] Platelets [#/vol ume] in Blood by Automated count Low 150-450 [facility] Platelets (Bld) [#/Vol] 104 10 3/uL Low 150-450 [facility] RBC Auto (Bld) [#/Vol]on RBC (Bld) [#/Vol] Erythrocytes [#/volume] in Blood by Automated count Low 4.70-6.10 [facility] RBC (Bld) [#/Vol] 4.36 10 6/uL Low 4.70-6.10 [facility] Serum or plasma anion gap de terminationon 12-05-2024 Anion gap [Moles/Vol] Serum or plasma an ion gap determination [facility] Anion gap [Moles/Vol] 11.1 mmol/L [facility] Influenza virus B Ag [Presen ce] in Upper respiratory specimen by Rapid immunoassayon 11-06-2024 FLUBV Ag IA.rapid Ql (Nph) Influenza virus B Ag [Presence] in Upper respiratory specimen by Rapid immunoassay [facility] No Panel Informationon 11-06 Influenza Type A (Rapid) Negative [facility] POC SARS CoV-2 Antigen Negative [facility] CNPNon 03-20-2023 CNPN Telephone (SPNMAV) NEISHA THORPE ([id number]) 1940 Jill Marie* Date Time Provider Department 03/20/23 DELOI JAEGER SPNMAV During your visit today, we recorded the following information about you: Neida Caballero MA 03/20/2023 12:30 PM Signed DATE OF SERVICE: 03/15/2023 PATIENT'S PHONE NUMBERS: [phone] (home) OR @[facility]@ PROVIDER: Dr. Jaeger PROCEDURE: Elective [...] work Requesting to call his CELL ONLY [phone] what to do next Leave Detailed messages [...] of spine injection schedulers to call at [phone]. Patient will call if he wants to schedule another injection. 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 Author [...] offered a procedure / surgery at a [facility] facility. Patient and [...] of procedure. [facility] [place] - ELECTIVE PROCEDURE Lumbar Transforaminal Epidural Steroid [...] the entire procedure. Delio Jaeger DO, MBA [facility] 02-26-2023 CNPN Telephone (SPNMAV) NEISHA THORPE ([id number]) 1940 Jill [employer]* Date Time Provider Department 02/26/23 DELIO JAEGER SPNMAV During your visit today, we recorded the following information about you: Linda Knox LPN 02/26/2023 4:49 PM Signed Spoke to patient in [facility] to pre procedure instructions. 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 Pt advised to arrive 30 [...] take. Advised on location of ASC-2nd floor [facility] Pt will receive a follow up call several days after by a steam room attendant. If you experience any increase in weakness, difficulty walking or significant increase in pain that last more than 4 hours, please proceed to the Emergency Room and tell them you had a spine procedure done recently. Additionally, call us and notify us of these symptoms. Please call [phone] if you have any questions. Pt verbalized [...] by LINDA KNOX LPN on 02/26/23 [facility] CHELLE Telephone (SPNMAV) NEISHA THORPE ([id number]) 1940 Jill [employer]* Date Time Provider Department 02/19/23 DELIO JAEGER SPNMAV During your visit today, we recorded the following information about you: Camilla Jarrell [facility] 02/19/2023 9:27 AM Signed Neisha Thorpe [...] Celi as patient cannot hear well [phone] Patient has been identified by name and birthdate. Duration of symptoms: N/A Person calling: daughter: Celi Call patient at: N/A [phone] (home) [phone] (cell) Was an appointment scheduled: No Closing statement: Results or non-symptom based questions: Thank you for calling [facility], your call will be returned within the next business day. Camilla Jarrell [facility] Linda Knox LPN 02/19/2023 9:45 AM Signed Spine Intervention order formatted for review Linda Knox LPN 02/19/2023 11:59 AM Signed Order approved Spoke to daughter in [employer] to pre procedure instructions. Daughter given scheduling number [phone] Pt must have a recycler forklift driver truck driver. Pt advised to arrive 30 min prior to the time given by the water truck driver. Pt advised will also receive a call the day before from the surgery center to confirm date/time. Pt can eat and drink as normal. and Pt can take medications as normal. No alcohol 24 hours prior. Pt is on ASA.- 81 mg okay to take. and must Advised on location of ASC-2nd floor [facility] Pt will receive a follow up call several days after by a steam room attendant. If you experience any increase in weakness, difficulty walking or significant increase in pain that last more than 4 hours, please proceed to the Emergency Room and tell them you had a spine procedure done recently. Additionally, call us and notify us of these symptoms. Please call [phone] if you have any questions. Pt verbalized understanding. 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 Normal [facility] XR knee LT 4V*on 11-09-2022 XR knee LT 4V* [facility] [employer] Other XR knee LT 4V* [facility] [employer] Other XR knee LT 4V* [address] [facility] Mil[employer] Other XR knee LT 4V* [place] [id number] No [facility] Mil[employer] Other XR knee LT 4V* XRay Report [employer] Other XR knee LT 4V* Signed [employer] Other XR knee LT 4V* Patient: Neisha Thorpe MR#: [id number] [employer] Other XR knee LT 4V* 5 [employer] Other XR knee LT 4V* : 1940 Acct:[id number] [employer] Other XR knee LT 4V* Age/Sex: 82 / M ADM Date: 11/09/22 [employer] Other XR knee LT 4V* Loc: [facility] Room: Type : [facility] [employer] Other XR knee LT 4V* Attending Dr: Jose Enrique Leblanc II, MD [employer] Other XR knee LT 4V* Copies to: Jose Enrique Leblanc MD [employer] Other XR knee LT 4V* Ordering Provider: Jose Enrique Leblanc MD [employer] Other XR knee LT 4V* Date of Service: 11/09/22 [employer] Other XR knee LT 4V* XR/XR knee LT 4V*: Acute pain of left knee [employer] Other XR knee LT 4V* XR knee LT 4V* 11/09/2022 3:15 PM [employer] Other XR knee LT 4V* SIGNS AND SYMPTOMS: Acute pain of left knee [employer] Other XR knee LT 4V* PROTOCOL: Frontal, lateral, oblique, and sunrise views of the left knee [employer] Other XR knee LT 4V* COMPARISON: 11/05/2022 [employer] Other XR knee LT 4V* FINDINGS: [employer] Other XR knee LT 4V* There is similar narrowing of the weightbearing joint spaces with chondrocalcinosis of the menisci [employer] Other XR knee LT 4V* suggesting underlyin g CPPD. There is narrowing of the patellofemoral joint space with spurring at [employer] Other XR knee LT 4V* the superior pole of patella. There is a small joint effusion. No soft tissue swelling. No acute [employer] Other XR knee LT 4V* displaced fracture. Vascular calcifications are present posteriorly. [employer] Other XR knee LT 4V* XR/XR knee LT 4V* [employer] Other XR knee LT 4V* IMPRESSION: [employer] Other XR knee LT 4V* Tricompartmental degenerative changes are noted in the left knee with a small joint effusion. [employer] Other XR knee LT 4V* There is chondrocalcinosis of the menisci suggesting underlying CPPD. [employer] Other XR knee LT 4V* Impression dictated by: Darren Yuen M.D.11/09/2022 5:03 PM [employer] Other XR knee LT 4V* Dictation Location: [place] [address] [employer] Other XR knee LT 4V* Transcribed By: COLIN 11/09/22 [facility] [employer] Other XR knee LT 4V* Dictated By: Darren Yuen II, MD 11/09/221700 [employer] Other XR knee LT 4V* Signed By: [employer] Other XR knee LT 4V* 11/09/221702 [employer] Other XR pelvis 1-2Von 11-09-2022 XR pelvis 1-2V XR/XR pelvis 1-2V: Acute pain of left knee [employer] Other XR pelvis 1-2V XR pelvis 1-2V 11/09/2022 3:15 PM [employer] Other XR pelvis 1-2V SIGNS AND SYMPTOMS: Left knee pain [employer] Other XR pelvis 1-2V PROTOCOL: Frontal radiograph of the chest [employer] Other XR pelvis 1-2V COMPARISON: None [place] [employer] Other XR pelvis 1-2V There is mild narrowing of the left hip joint space with subcortical cystic change on both sides of [employer] Other XR pelvis 1-2V the joint along the acetabular there is chondrocalcinosis of the labrum overlying the superior [employer] Other XR pelvis 1-2V acetabular rim and superior lateral femoral head. The bony ring of the pelvis is intact. There is [employer] Other XR pelvis 1-2V total right hip arthroplasty. Degenerative changes are noted in the sacroiliac joints. No fracture [employer] Other XR pelvis 1-2V is [employer] Other XR pelvis 1-2V XR/XR pelvis 1-2V [employer] Other XR pelvis 1-2V Degenerative changes are noted in the left hip with findings suspicious for previous labral [employer] Other XR pelvis 1-2V pathology. [employer] Other XR pelvis 1-2V Postoperative change s are noted in the right hip with total right hip arthroplasty hardware. [employer] Other XR pelvis 1-2V Impression dictated by: Darren Yuen M.D.11/09/2022 5:01 PM [employer] Other XR pelvis 1-2V Transcribed By: COLIN 11/09/22 1701 [employer] Other XR pelvis 1-2V Dictated By: Darren Yuen II, MD 11/09/221699 [employer] Other XR pelvis 1-2V 11/09/221700 [employer] Other XR KNEE LT 4V or >on [...] There is chondrocalcinosis. Soft tissues: Unremarkable. IMPRESSION: Tpmc-yj-udaojoat osteoarthritis as described above. Chondrocalcinosis. No acute fracture or dislocation. Electronically authenticated by: CHUCK JONES Date: 2022-11-05 11:19 Normal [facility] US CAROTID ART BILon 023 US [...] JONAS MCLEOD Date: 2022-09-26 10:58 Normal [facility] CBC AUTO DIFFon 08-10-2022 BASO # 0.0 103/ul Normal 0.0-0.1 [facility] Comment on above: Performed By: #### C BC #### [facility] [address] [place] [address] Dr. Alexis Brink Basophils/100 WBC (Bld) 0.7 % Normal 0.2-2.0 [facility] Comment on above: Performed By: #### C BC #### [facility] [address] [place] [address] Dr. Alexis Brink EO # 0.3 103/ul Normal 0.0-0.7 [facility] Comment on above: Performed By: #### C BC #### [facility] [address] [place] [address] Dr. Alexis Brink Eosinophils/100 WBC (Bld) 6.1 % Normal 0.9-7.0 [facility] Comment on above: Performed By: #### C BC #### [facility] [address] [place] [address] Dr. Alexis Brink Erythrocyte distribution width (RBC) [Ratio] 12.1 % Normal 11.0-15.0 [facility] Comment on above: Performed By: #### C BC #### [facility] [address] [place] [address] Dr. Alexis Brink Hematocrit (Bld) [Volume fraction] 44.2 % Normal 42.0-54.0 [facility] Comment on above: Performed By: #### C BC #### [facility] [address] [place] [address] Dr. Alexis Brink Hemoglobin (Bld) [Mass/Vol] 14.9 g/dL Normal 14.0-18.0 [facility] Comment on above: Performed By: #### C BC #### [facility] [address] [place] [address] Dr. Alexis Brink IG # 0.01 10e3/ul Normal 0.00-0.03 [facility] Comment on above: Performed By: #### C BC #### [facility] [address] [place] [address] Dr. Alexis Brink IG % 0.2 % Normal 0.0-0.5 [facility] Comment on above: Performed By: #### C BC #### [facility] [address] [address] [address] Alexis Brink LYMPH # 1.2 103/ul Normal 1.2-3.8 [facility] Comment on above: Performed By: #### C BC #### [facility] [address] [place] [address] Dr. Alexis Brink Lymphocytes/100 WBC (Bld) 21.3 % Normal 20.5-60.0 [facility] Comment on above: Performed By: #### C BC #### [facility] [address] [place] [address] Dr. Alexis Brink MANUAL DIFF REQ NO Normal [facility] Comment on above: Performed By: #### C BC #### [facility] [address] [place] [address] Dr. Alexis Brink MCH (RBC) [Entitic mass] 30.7 pg Normal 25.9-34.0 [facility] Comment on above: Performed By: #### C BC #### [facility] [address] [place] [address] Dr. Alexis Brink MCHC (RBC) [Mass/Vol] 33.7 g/dL Normal 29.9-35.2 [facility] Comment on above: Performed By: #### C BC #### [facility] [address] [place] [address] Dr. Alexis Brink MCV (RBC) [Entitic vol] 91.1 fL Normal 80.0-94.0 [facility] Comment on above: Performed By: #### C BC #### [facility] [address] [place] [address] Dr. Alexis Brink MONO # 0.5 103/ul Normal 0.3-0.8 [facility] Comment on above: Performed By: #### C BC #### [facility] [address] [place] [address] Dr. Alexis Brink Monocytes/100 WBC (Bld) 8.5 % Normal 1.7-12.0 [facility] Comment on above: Performed By: #### C BC #### [facility] [address] [place] [address] [address] Alexis Brink NEUT # 3.5 103/ul Normal 1.4-6.5 [facility] Comment on above: Performed By: #### C BC #### [facility] [address] [place] [address] Dr. Alexis Brink Neutrophils/100 WBC (Bld) 63.2 % Normal 43.0-75.0 [facility] Comment on above: Performed By: #### C BC #### [facility] [address] [place] [address] Dr. Alexis Brink Platelet mean volume (Bld) [Entitic vol] 10.0 fL Normal 9.5-13.5 [facility] Comment on above: Performed By: #### C BC #### [facility] [address] [place] [address] Dr. Alexis Brink PLT 120 103/ul Critically low 150-450 [facility] Comment on above: Performed By: #### C BC #### [facility] [address] [place] [address] Dr. Alexis Brink RBC 4.85 106/ul Normal 4.70-6.10 [facility] Comment on above: Performed By: #### C BC #### [facility] [address] [place] [address] Dr. Alexis Brink WBC 5.6 103/ul Normal 4.0-11.0 [facility] Comment on above: Performed By: #### C BC #### [facility] [address] [place] [address] Dr. Alexis Brink [facility]21 SARS-CoV-2 (COVID-19) RNA RICKY+probe Ql (Unsp spec) Not detected Normal NOT DETECTED [facility] Comment on above: Result Comment: This test is not yet approved or cleared by the [place] FDA. When there are no FDA-approved or cleared tests available, and other criteria are met, FDA can make tests available under an emergency access mechanism called an Emergency Use Authorization (EUA). The EUA for this test is supported by the [place] of Health and Human Service's (HHS's) declaration [...] with SARS-CoV-2. Performed By: #### C VDTBH ####[facility] [address] [place], [place] [address]Dr. Alexis [facility] INFLUENZA A AND B AGon 08-10 [facility] SEE BELOW Normal [facility] Comment on above: Result Comment: Nega tive for Flu A protein angiten. Infection due to Flu A cannot be ruled out. Flu A angiten in the sample may be below the detection limit of the test. Performed By: #### I NFLUAB ####[facility] [address] [place], [place] [address]Dr. lilliana [facility] INFLUBNEGH SEE BELOW Normal [facility] Comment on above: Result Comment: Nega tive for Flu B protein antigen. Infection due to Flu B cannot be ruled out. Flu B antigen in the sample may be below the detection limit of the test. Performed By: #### I NFLUAB ####[facility] [address] [place], [place] [address] INFLUENZA A AG Negative Normal NEGATIVE SEE COMMENT [facility] Comment on above: Performed By: #### I NFLUAB ####[facility] [address] [place], [place] [address] INFLUENZA B AG Negative Normal NEGATIVE SEE COMMENT [facility] Comment on above: Performed By: #### I NFLUAB ####[facility] [address] [place], [place] [address] INTERNAL CONTROLS Within Normal Limits Normal Wi thin Normal Limits [facility] Comment on above: Performed By: #### I NFLUAB ####[facility] [address] [address]Dr. Alexis Brink PROF CHEM 8 (BAS METB)on Anion gap [Moles/Vol] 11.4 mmol/L Normal [facility] Comment on above: Performed By: #### B MP, HSTROPN #### [facility] [address] [address] [address] Alexis Brink Calcium [Mass/Vol] 8.9 mg/dL Normal 8.5-10.1 [facility] Comment on above: Performed By: #### B MP, HSTROPN #### [facility] [address] [address] [address] Alexis Brink Chloride [Moles/Vol] 102 mmol/L Normal 98-107 [facility] Comment on above: Performed By: #### B NARA, HSTROPN #### [facility] [address] [place] [address] Dr. Alexis Brink CO2 [Moles/Vol] 28.8 mmol/L Normal 21.0-32.0 [facility] Comment on above: Performed By: #### B NARA, HSTROPN #### [facility] [address] [address] [address] Alexis Brink Creatinine [Mass/Vol] 1.35 mg/dL Critically high 0.70-1.30 [facility] Comment on above: Performed By: #### B MP, HSTROPN #### [facility] [address] [address] [address] Alexis Brink EGFR-AF CANADIAN >60 Normal >=60 [facility] Comment on above: Performed By: #### B MP, HSTROPN #### [facility] [address] [place] [address] Dr. Alexis Brink EGFR-NON AF CANADIAN 51 mL/min/1.73m2 Critically low >=60 [facility] Comment on above: Performed By: #### B MP, HSTROPN #### [facility] [address] [place] [address] Dr. Alexis Brink Glucose [Mass/Vol] 109 mg/dL Critically high 74-106 [facility] Comment on above: Performed By: #### B NARA, HSTROPN #### [facility] [address] [address] [address] Alexis Brink Potassium [Moles/Vol] 4.2 mmol/L Normal 3.5-5.1 [facility] Comment on above: Performed By: #### B NARA, HSTROPN #### [facility] [address] [address] [address] Alexis Brink Sodium [Moles/Vol] 138 mmol/L Normal 136-145 [facility] Comment on above: Performed By: #### B NARA, HSTROPN #### [facility] [address] [place] [address] Dr. Alexis Brink Urea nitrogen [Mass/Vol] 18.0 mg/dL Normal 7.0-18.0 [facility] Comment on above: Performed By: #### B NARA, HSTROPN #### [facility] [address] [place] [address] Dr. Alexis Brink Urea nitrogen/Creatinine [Mass ratio] 13.3 mg/mg Normal [facility] Comment on above: Performed By: #### B NARA, HSTROPN #### [facility] [address] [place] [address] Dr. Alexis Brink TROPONIN, HIGH SENSITIVITYon 08-10-2022 HSTROP 22.2 pg/mL Normal 4.0-76.1 [facility] Comment on above: Result Comment: CUT- OFF POINTS HAVE BEEN ESTABLISHED BASED ON THE FOURTH UNIVERSAL DEFINITIONS OF MYOCARDIAL INFARCTION. THE UPPER REFERENCE LIMIT (URL) OF TROPONIN, DEFINED THE 99TH PERCENTILE OF cTnI DISTRIBUTION IN A REFERENCE POPULATION, HAS BEEN CONFIRMED THE DECISION THRESHOLD FOR CO DIAGNOSIS. Performed By: #### B NARA, HSTROPN #### [facility] [address] [place] [address] Dr. Alexis Brink XR CHEST 1 Von [...] RADHA UNDERWOOD Date: 2022-08-10 16:07 Normal [facility] CBC AUTO DIFFon 02-09-2022 BASO # 0.0 103/ul Normal 0.0-0.1 [facility] Comment on above: Performed By: #### C BC #### [facility] [address] [place] [address] Dr. Alexis Brink Basophils/100 WBC (Bld) 0.6 % Normal 0.2-2.0 [facility] Comment on above: Performed By: #### C BC #### [facility] [address] [place] [address] Dr. Alexis Brink EO # 0.5 103/ul Normal 0.0-0.7 [facility] Comment on above: Performed By: #### C BC #### [facility] [address] [place] [address] Dr. Alexis Brink Eosinophils/100 WBC (Bld) 7.2 % Critically high 0.9-7.0 [facility] Comment on above: Performed By: #### C BC #### [facility] [address] [place] [address] Dr. Alexis Brink Erythrocyte distribution width (RBC) [Ratio] 12.4 % Normal 11.0-15.0 [facility] Comment on above: Performed By: #### C BC #### [facility] [address] [place] [address] Dr. Alexis Brink Hematocrit (Bld) [Volume fraction] 45.5 % Normal 42.0-54.0 [facility] Comment on above: Performed By: #### C BC #### [facility] [address] [place] [address] Dr. Alexis Brink Hemoglobin (Bld) [Mass/Vol] 15.4 g/dL Normal 14.0-18.0 [facility] Comment on above: Performed By: #### C BC #### [facility] [address] [place] [address] Dr. Alexis Brink IG # 0.02 10e3/ul Normal 0.00-0.03 [facility] Comment on above: Performed By: #### C BC #### [facility] [address] [place] [address] Dr. Alexis Brink IG % 0.3 % Normal 0.0-0.5 [facility] Comment on above: Performed By: #### C BC #### [facility] [address] [place] [address] Dr. Alexis Brink LYMPH # 1.3 103/ul Normal 1.2-3.8 [facility] Comment on above: Performed By: #### C BC #### [facility] [address] [place] [address] Dr. Alexis Brink Lymphocytes/100 WBC (Bld) 17.8 % Critically low 20.5-60.0 [facility] [facility] Comment on above: Performed By: #### C BC #### [facility] [address] [place] [address] Dr. Alexis Brink MANUAL DIFF REQ NO Normal [facility] Comment on above: Performed By: #### C BC #### [facility] [address] [place] [address] Dr. Alexis Brink MCH (RBC) [Entitic mass] 31.4 pg Normal 25.9-34.0 [facility] Comment on above: Performed By: #### C BC #### [facility] [address] [place] [address] Dr. Alexis Brink MCHC (RBC) [Mass/Vol] 33.8 g/dL Normal 29.9-35.2 [facility] Comment on above: Performed By: #### C BC #### [facility] [address] [place] [address] Dr. Alexis Brink MCV (RBC) [Entitic vol] 92.9 fL Normal 80.0-94.0 [facility] Comment on above: Performed By: #### C BC #### [facility] [address] [place] [address] Dr. Alexis Brink MONO # 0.7 103/ul Normal 0.3-0.8 [facility] Comment on above: Performed By: #### C BC #### [facility] [address] [place] [address] Dr. Alexis Brink Monocytes/100 WBC (Bld) 9.6 % Normal 1.7-12.0 [facility] Comment on above: Performed By: #### C BC #### [facility] [address] [place] [address] Dr. Alexis Brink NEUT # 4.6 103/ul Normal 1.4-6.5 [facility] Comment on above: Performed By: #### C BC #### [facility] [address] [place] [address] Dr. Alexis Brink Neutrophils/100 WBC (Bld) 64.5 % Normal 43.0-75.0 [facility] Comment on above: Performed By: #### C BC #### [facility] [address] [place] [address] Dr. Alexis Brink Platelet mean volume (Bld) [Entitic vol] 10.7 fL Normal 9.5-13.5 [facility] Comment on above: Performed By: #### C BC #### [facility] [address] [place] [address] Dr. Alexis Brink PLT 130 103/ul Critically low 150-450 [facility] Comment on above: Performed By: #### C BC #### [facility] [address] [place], [place] [id number] Dr. Alexis Brink RBC 4.90 106/ul Normal 4.70-6.10 [facility] Comment on above: Performed By: #### C BC #### [facility] [address] [place] [address] Dr. Alexis Brink WBC 7.1 103/ul Normal 4.0-11.0 [facility] Comment on above: Performed By: #### C BC #### [facility] [address] [address] [address] Alexis Brink DIRECT LDLon 02-09-2022 Cholesterol in LDL [Mass/Vol] 144 mg/dL Normal [facility] Comment on above: Performed By: #### D LDL, BMP ####[facility] [id number] [place], [place] [address]WpDr. Alexis Brink DLDL NORMAL SEE BELOW Normal [facility] Comment on above: Result Comment: <100 mg/dl OPTIMAL 100 - 129 mg/dl NEAR OR ABOVE OPTIMAL 130 - 159 mg/dl BORDERLINE HIGH 160 - 189 mg/dl HIGH >190 mg/dl VERY HIGH Performed By: #### D LDL, BMP ####[facility] [id number] [id number]. Alexis Brink PROF CHEM 8 (BAS METB)on Anion gap [Moles/Vol] 9.3 mmol/L Normal [facility] Comment on above: Performed By: #### D LDL, BMP #### [facility] [address] [address] [address] Alexis Brink Calcium [Mass/Vol] 8.7 mg/dL Normal 8.5-10.1 [facility] Comment on above: Performed By: #### D LDL, BMP #### [facility] [address] [address] [address] Alexis Brink Chloride [Moles/Vol] 103 mmol/L Normal 98-107 [facility] Comment on above: Performed By: #### D LDL, BMP #### [facility] [address] [address] [address] Alexis Brink CO2 [Moles/Vol] 32.1 mmol/L Critically high 21.0-32.0 [facility] Comment on above: Performed By: #### D LDL, BMP #### [facility] [address] [address] [address] Alexis Brink Creatinine [Mass/Vol] 1.35 mg/dL Critically high 0.70-1.30 [facility] Comment on above: Performed By: #### D LDL, BMP #### [facility] [address] [address] [address] Alexis Brink EGFR-AF CANADIAN >60 Normal >=60 [facility] Comment on above: Performed By: #### D LDL, BMP #### [facility] [address] [address] [address] Alexis Brink EGFR-NON AF CANADIAN 51 mL/min/1.73m2 Critically low >=60 [facility] Comment on above: Performed By: #### D LDL, BMP #### [facility] [address] [address] [address] Alexis Brink Glucose [Mass/Vol] 90 mg/dL Normal 74-106 [facility] Comment on above: Performed By: #### D LDL, BMP #### [facility] [address] [place] [address] Dr. Alexis Brink Potassium [Moles/Vol] 4.4 mmol/L Normal 3.5-5.1 [facility] Comment on above: Performed By: #### D LDL, BMP #### [facility] [address] [address] [address] Alexis Brink Sodium [Moles/Vol] 140 mmol/L Normal 136-145 [facility] Comment on above: Performed By: #### D LDL, BMP #### [facility] [address] [place] [address] Dr. Alexis Brink Urea nitrogen [Mass/Vol] 16.0 mg/dL Normal 7.0-18.0 [facility] Comment on above: Performed By: #### D LDL, BMP #### [facility] [address] [address] [address] Alexis Brink Urea nitrogen/Creatinine [Mass ratio] 11.9 mg/mg Normal [facility] Comment on above: Performed By: #### D LDL, BMP #### [facility] [address] [address] [address] Alexis Brink UA RANDOMon 02-09-2022 Bilirubin Ql (U) Negative Normal NEGATIVE [facility] Comment on above: Performed By: #### U A #### [facility] [address] [place] [address] Dr. Alexis Brink Clarity (U) CLEAR Normal CLEAR [facility] Comment on above: Performed By: #### U A #### [facility] [address] [place] [address] Dr. Alexis Brink Color (U) YELLOW Normal YELLOW [facility] Comment on above: Performed By: #### U A #### [facility] [address] [place] [address] Dr. Alexis Brink Glucose Ql (U) Negative Normal NEGATIVE [facility] Comment on above: Performed By: #### U A #### [facility] [address] [place] [address] Dr. Alexis Brink Hemoglobin Ql (U) Negative Normal NEGATIVE [facility] Comment on above: Performed By: #### U A #### [facility] [address] [place] [address] Dr. Alexis Brink Ketones Ql (U) Negative Normal NEGATIVE [facility] Comment on above: Performed By: #### U A #### [facility] [address] [place] [address] Dr. Alexis Brink LEUKOCYTES Negative Normal NEGATIVE [facility] Comment on above: Performed By: #### U A #### [facility] [address] [place] [address] Dr. Alexis Brink Nitrite Ql (U) Negative Normal NEGATIVE [facility] Comment on above: Performed By: #### U A #### [facility] [address] [place] [address] Dr. Alexis Brink pH (U) 7.0 [pH] Normal 5-9 [facility] Comment on above: Performed By: #### U A #### [facility] [address] [place] [address] Dr. Alexis Brink SPEC GRAVITY 1.015 Normal 1.005-<=1.0 25 [facility] Comment on above: Performed By: #### U A #### [facility] [address] [place] [address] Dr. Alexis Brink UA PROTEIN Negative Normal NEGATIVE/ TRACE [facility] Comment on above: Performed By: #### U A #### [facility] [address] [place], [place] [address] Dr. Alexis Brink Urobilinogen Qn (U) 1.0 {Kay'U}/dL Normal 0.2 - 1. 0 [facility] Comment on above: Performed By: #### U A #### [facility] [address] [place], [place] [address] Dr. Alexis Brink XR CHEST 2 Von [...] HAWLEY Date: 2021-12-06 15:42 Normal [facility] Nonvisit Note - PTon 018 Nonvisit Note - PT Cert letter refaxed for signature this date - third and final attempt. Normal [facility] Nonvisit Note - PTon 018 Nonvisit Note - PT Cert letter refaxed to Dr Gooden's office. Second attempt. Normal [facility] Coding Summary.on 01-25-2018 Coding Summary. CODING DATE: 01/25/2018 FINAL [facility] STATUS: PAYOR: Medicare ADMIT DX: [...] [place] Date Saved: 01/25/2018 10:54 am Normal [facility] Coding Summary. CODING DATE: 01/25/2018 FINAL [facility] STATUS: PAYOR: Medicare ADMIT DX: [...] [place] Date Saved: 01/25/2018 10:54 am Normal [facility] SURGICAL PATHOLOGYon 05-15-2 018 SURGICAL PATHOLOGY [facility]: [id number] Physician: CANDELARIO GOODEN MD FINAL DIAGNOSISRight hip, [...] to 8.5 x 8.5 x 1.8 cm. Single Stayer Operator sectionsare submitted as follows: A1 soft tissue, A2 bone submitted afterdecalcification. KAUSHIK/lachelle 01/01/2018 Gross examination performed at [facility], [address] [place], [place] [id number] of Report: 01/07/2018Date of Procedure: 01/01/2018Date of Receipt: 01/01/2018Submitted by: CANDELARIO GOODEN MDLocation: [id number] interpretation performed at [facility], [facility] [id number]. Normal [facility] Comment on above: Performed By: #### S ####See report for performing lab information. Vital Signs Date Time Vital Sign Value Performing Clinician Facility 04-03-2025 09:52-0400 Body height 167.64 cm Cecilio Ball DO Work Phone: [facility] 04-03-2025 09:52-0400 Body mass index (BMI) [Ratio] 29.9 kg/m2 Cecilio Ball DO Work Phone: [facility] 04-03-2025 09:52-0400 Body weight 84.02 kg Cecilio Ball DO Work Phone: [facility] 04-03-2025 09:52-0400 Diastolic blood pressure 71 mm[Hg] Cecilio Ball DO Work Phone: [facility] 04-03-2025 09:52-0400 Heart rate 70 /min Cecilio Ball DO Work Phone: [facility] 04-03-2025 09:52-0400 Respiratory rate 16 /min Cecilio Ball DO Work Phone: [facility] 04-03-2025 09:52-0400 Systolic blood pressure 158 mm[Hg] Cecilio Ball DO Work Phone: [facility] 03-27-2025 13:30-0400 Body height 167.64 cm Cecilio Ball DO Work Phone: [facility] 03-27-2025 13:30-0400 Body mass index (BMI) [Ratio] 30.2 kg/m2 Cecilio Ball DO Work Phone: [facility] 03-27-2025 13:30-0400 Body weight 84.99 kg Cecilio Ball DO Work Phone: [facility] 03-27-2025 13:30-0400 Diastolic blood pressure 72 mm[Hg] Cecilio Ball DO Work Phone: [facility] 03-27-2025 13:30-0400 Heart rate 80 /min Cecilio Ball DO Work Phone: [facility] 03-27-2025 13:30-0400 Respiratory rate 16 /min Cecilio Ball DO Work Phone: [facility] 03-27-2025 13:30-0400 Systolic blood pressure 158 mm[Hg] Cecilio Ball DO Work Phone: [facility] 02-11-2025 08:58-0400 Body height 167.64 cm Cecilio Ball DO Work Phone: [facility] 02-11-2025 08:58-0400 Body mass index (BMI) [Ratio] 28.4 kg/m2 Cecilio Ball DO Work Phone: [facility] 02-11-2025 08:58-0400 Body weight 79.94 kg Cecilio Ball DO Work Phone: [facility] 02-11-2025 08:58-0400 Diastolic blood pressure 71 mm[Hg] Cecilio Ball DO Work Phone: [facility] 02-11-2025 08:58-0400 Heart rate 71 /min Cecilio Ball DO Work Phone: [facility] 02-11-2025 08:58-0400 Respiratory rate 12 /min Cecilio Ball DO Work Phone: [facility] 02-11-2025 08:58-0400 SaO2% (BldA) [Mass fraction] 97 % Cecilio Ball DO Work Phone: [facility] 02-11-2025 08:58-0400 Systolic blood pressure 138 mm[Hg] Cecilio Ball DO Work Phone: [facility] 01-20-2025 10:50-0400 Body height 167.64 cm [facility] 01-20-2025 10:50-0400 Body mass index (BMI) [Ratio] 28.5 kg/m2 [facility] 01-20-2025 10:50-0400 Body weight 80.37 kg [facility] 01-20-2025 10:50-0400 Diastolic blood pressure 74 mm[Hg] [facility] 01-20-2025 10:50-0400 Heart rate 66 /min [facility] 01-20-2025 10:50-0400 Respiratory rate 16 /min [facility] 01-20-2025 10:50-0400 SaO2% (BldA) [Mass fraction] 95 % [facility] 01-20-2025 10:50-0400 Systolic blood pressure 134 mm[Hg] [facility] 12-09-2024 15:37-0400 Body height 167.64 cm [facility] 12-09-2024 15:37-0400 Body mass index (BMI) [Ratio] 28.9 kg/m2 [facility] 12-09-2024 15:37-0400 Body weight 81.36 kg [facility] 12-09-2024 15:37-0400 Diastolic blood pressure 74 mm[Hg] [facility] 12-09-2024 15:37-0400 Heart rate 75 /min [facility] 12-09-2024 15:37-0400 Respiratory rate 12 /min [facility] 12-09-2024 15:37-0400 SaO2% (BldA) [Mass fraction] 98 % [facility] 12-09-2024 15:37-0400 Systolic blood pressure 153 mm[Hg] [facility] 11-06-2024 09:02-0400 Body height 167.64 cm [facility] 11-06-2024 09:02-0400 Body mass index (BMI) [Ratio] 28.9 kg/m2 [facility] 11-06-2024 09:02-0400 Body weight 81.36 kg [facility] 11-06-2024 09:02-0400 Diastolic blood pressure 67 mm[Hg] [facility] 11-06-2024 09:02-0400 Heart rate 82 /min [facility] 11-06-2024 09:02-0400 Respiratory rate 24 /min [facility] 11-06-2024 09:02-0400 SaO2% (BldA) [Mass fraction] 98 % [facility] 11-06-2024 09:02-0400 Systolic blood pressure 130 mm[Hg] [facility] 10-01-2024 08:35-0500 Body height 167.64 cm [facility] 10-01-2024 08:35-0500 Body mass index (BMI) [Ratio] 28.5 kg/m2 [facility] 10-01-2024 08:35-0500 Body weight 80.34 kg [facility] 10-01-2024 08:35-0500 Diastolic blood pressure 74 mm[Hg] [facility] 10-01-2024 08:35-0500 Heart rate 67 /min [facility] 10-01-2024 08:35-0500 Respiratory rate 16 /min [facility] 10-01-2024 08:35-0500 Systolic blood pressure 155 mm[Hg] [facility] 05-28-2024 08:30-0400 Body height 167.64 cm [facility] 05-28-2024 08:30-0400 Body mass index (BMI) [Ratio] 27.1 kg/m2 [facility] 05-28-2024 08:30-0400 Body weight 76.31 kg [facility] 05-28-2024 08:30-0400 Diastolic blood pressure 89 mm[Hg] [facility] 05-28-2024 08:30-0400 Heart rate 61 /min [facility] 05-28-2024 08:30-0400 Respiratory rate 12 /min [facility] 05-28-2024 08:30-0400 Systolic blood pressure 139 mm[Hg] [facility] 01-22-2024 09:16-0400 Body height 167.64 cm [facility] 01-22-2024 09:16-0400 Body mass index (BMI) [Ratio] 29.3 kg/m2 [facility] 01-22-2024 09:16-0400 Body weight 82.55 kg [facility] 01-22-2024 09:16-0400 Diastolic blood pressure 72 mm[Hg] [facility] 01-22-2024 09:16-0400 Heart rate 64 /min [facility] 01-22-2024 09:16-0400 Respiratory rate 20 /min [facility] 01-22-2024 09:16-0400 Systolic blood pressure 131 mm[Hg] [facility] 09-28-2023 11:00-0500 Body height 167.64 cm Cecilio Ball Other [facility] [employer] Other 09-28-2023 11:00-0500 Body mass index (BMI) [Ratio] 30.24 kg/m2 Cecilio Ball Other [facility] [employer] Other 09-28-2023 11:00-0500 Body weight 85 kg Cecilio Ball Other [facility] [employer] Other 09-28-2023 11:00-0500 Respiratory rate 20 /min Cecilio Ball Other [facility] [employer] Other 09-28-2023 11:00-0500 SaO2% (BldA) [Mass fraction] 97 % Cecilio Ball Other [facility] [employer] Other 09-11-2023 10:45-0500 Body height 167.64 cm Cecilio Ball Other [facility] [employer] Other 09-11-2023 10:45-0500 Body mass index (BMI) [Ratio] 29.86 kg/m2 Cecilio Ball Other [employer] Other 09-11-2023 10:45-0500 Body temperature 97.5 [degF] Cecilio Ball Other [employer] Other 09-11-2023 10:45-0500 Body weight 83.92 kg Cecilio Ball Other [employer] Other 09-11-2023 10:45-0500 Diastolic blood pressure 81 mm[Hg] Cecilio Ball Other [employer] Other 09-11-2023 10:45-0500 Respiratory rate 20 /min Cecilio Ball Other [employer] Other 09-11-2023 10:45-0500 SaO2% (BldA) [Mass fraction] 98 % Cecilio Ball Other [employer] Other 09-11-2023 10:45-0500 Systolic blood pressure 161 mm[Hg] Cecilio Ball Other [employer] Other 08-01-2023 10:15-0500 Body height 167.64 cm Cecilio Ball Other [employer] Other 08-01-2023 10:15-0500 Body mass index (BMI) [Ratio] 29.86 kg/m2 Cecilio Ball Other [employer] Other 08-01-2023 10:15-0500 Body weight 83.92 kg Cecilio Ball Other [employer] Other 08-01-2023 10:15-0500 Diastolic blood pressure 79 mm[Hg] Cecilio Ball Other [employer] Other 08-01-2023 10:15-0500 Respiratory rate 20 /min Cecilio Ball Other [employer] Other 08-01-2023 10:15-0500 Systolic blood pressure 172 mm[Hg] Cecilio Ball Other [employer] Other 07-17-2023 10:15-0500 Body height 167.64 cm Cecilio Ball Other [employer] Other 07-17-2023 10:15-0500 Body mass index (BMI) [Ratio] 29.89 kg/m2 Cecilio Ball Other [employer] Other 07-17-2023 10:15-0500 Body weight 84.01 kg Cecilio Ball Other [employer] Other 07-17-2023 10:15-0500 Diastolic blood pressure 78 mm[Hg] Cecilio Ball Other [employer] Other 07-17-2023 10:15-0500 Respiratory rate 20 /min Cecilio Ball Other [employer] Other 07-17-2023 10:15-0500 Systolic blood pressure 172 mm[Hg] Cecilio Ball Other [employer] Other 07-10-2023 14:45-0500 Body height 167.64 cm Cecilio Ball Other [employer] Other 07-10-2023 14:45-0500 Body mass index (BMI) [Ratio] 29.47 kg/m2 Cecilio Ball Other [employer] Other 07-10-2023 14:45-0500 Body weight 82.83 kg Cecilio Ball Other [employer] Other 07-10-2023 14:45-0500 Diastolic blood pressure 80 mm[Hg] Cecilio Ball Other [employer] Other 07-10-2023 14:45-0500 Respiratory rate 20 /min Cecilio Ball Other [employer] Other 07-10-2023 14:45-0500 Systolic blood pressure 150 mm[Hg] Cecilio Ball Other [employer] Other 06-20-2023 08:30-0400 Body height 167.64 cm Cecilio Ball Other [employer] Other 06-20-2023 08:30-0400 Body mass index (BMI) [Ratio] 29.6 kg/m2 Cecilio Ball Other [employer] Other 06-20-2023 08:30-0400 Body weight 83.19 kg Cecilio Ball Other [employer] Other 06-20-2023 08:30-0400 Diastolic blood pressure 76 mm[Hg] Cecilio Ball Other [employer] Other 06-20-2023 08:30-0400 Respiratory rate 20 /min Cecilio Ball Other [employer] Other 06-20-2023 08:30-0400 Systolic blood pressure 157 mm[Hg] Cecilio Ball Other [employer] Other 05-30-2023 13:45-0400 Body height 167.64 cm Cecilio Ball Other [employer] Other 05-30-2023 13:45-0400 Body mass index (BMI) [Ratio] 28.95 kg/m2 Cecilio Ball Other [employer] Other 05-30-2023 13:45-0400 Body weight 81.38 kg Cecilio Ball Other [employer] Other 05-30-2023 13:45-0400 Diastolic blood pressure 78 mm[Hg] Cecilio Ball Other [employer] Other 05-30-2023 13:45-0400 Respiratory rate 16 /min Cecilio Ball Other [employer] Other 05-30-2023 13:45-0400 Systolic blood pressure 158 mm[Hg] Cecilio Ball Other [employer] Other 02-14-2023 08:30-0400 Body height 167.64 cm Cecilio Ball Other [employer] Other 02-14-2023 08:30-0400 Body mass index (BMI) [Ratio] 28.57 kg/m2 Cecilio Ball Other [employer] Other 02-14-2023 08:30-0400 Body weight 80.29 kg Cecilio Ball Other [employer] Other 02-14-2023 08:30-0400 Diastolic blood pressure 80 mm[Hg] Cecilio Ball Other [employer] Other 02-14-2023 08:30-0400 Respiratory rate 16 /min Cecilio Ball Other [employer] Other 02-14-2023 08:30-0400 Systolic blood pressure 135 mm[Hg] Cecilio Ball Other [employer] Other 02-01-2023 08:15-0400 Body height 167.64 cm Jose Enrique Miami II Other [employer] Other 02-01-2023 08:15-0400 Body mass index (BMI) [Ratio] 27.44 kg/m2 Jose Enrique Miami II Other [employer] Other 02-01-2023 08:15-0400 Body weight 77.11 kg Jose Enrique Miami II Other [employer] Other 12-11-2022 10:30-0400 Body height 167.64 cm Cecilio Ball Other [employer] Other 12-11-2022 10:30-0400 Body mass index (BMI) [Ratio] 28.66 kg/m2 Cecilio Ball Other [employer] Other 12-11-2022 10:30-0400 Body weight 80.56 kg Cecilio Ball Other [employer] Other 12-11-2022 10:30-0400 Diastolic blood pressure 76 mm[Hg] Cecilio Ball Other [employer] Other 12-11-2022 10:30-0400 Respiratory rate 12 /min Cecilio Ball Other [employer] Other 12-11-2022 10:30-0400 Systolic blood pressure 151 mm[Hg] Cecilio Ball Other [employer] Other 11-09-2022 16:00-0400 Body mass index (BMI) [Ratio] 29.21 kg/m2 Jose Enrique Landersisle II Other [employer] Other 11-09-2022 16:00-0400 Body weight 82.1 kg Jose Enrique Landersisle II Other [employer] Other 11-09-2022 10:30-0400 Body height 167.64 cm Cecilio Ball Other [employer] Other 11-09-2022 10:30-0400 Body mass index (BMI) [Ratio] 29.23 kg/m2 Cecilio Ball Other [employer] Other 11-09-2022 10:30-0400 Body weight 82.15 kg Cecilio Ball Other [employer] Other 11-09-2022 10:30-0400 Diastolic blood pressure 79 mm[Hg] Cecilio Ball Other [employer] Other 11-09-2022 10:30-0400 Respiratory rate 20 /min Cecilio Ball Other [employer] Other 11-09-2022 10:30-0400 Systolic blood pressure 152 mm[Hg] Cecilio Ball Other [employer] Other 10-12-2022 10:00-0500 Body height 167.64 cm Cecilio Ball Other [employer] Other 10-12-2022 10:00-0500 Body mass index (BMI) [Ratio] 29.24 kg/m2 Cecilio Ball Other [employer] Other 10-12-2022 10:00-0500 Body weight 82.19 kg Cecilio Ball Other [employer] Other 10-12-2022 10:00-0500 Diastolic blood pressure 70 mm[Hg] Cecilio Ball Other [employer] Other 10-12-2022 10:00-0500 Respiratory rate 12 /min Cecilio Ball Other [employer] Other 10-12-2022 10:00-0500 Systolic blood pressure 102 mm[Hg] Cecilio Benjamin Other [facility] [employer] Other Encounters Encounter Date Encounter Type Care Provider Facility Start: 04-03-2025 End: 04-03-2025 ambulatory Cecilio Ball DO Work Phone: [facility] Work Phone: Start: 04-03-2025 End: 04-03-2025 Patient encounter procedure Cecilio Benjamin DO -[facility] Work Phone: Start: 03-31-2025 End: 03-31-2025 ambulatory Cecilio Ball DO Work Phone: [facility] Work Phone: Start: 03-31-2025 End: 03-31-2025 Patient encounter procedure Faheem Sevilla MD -[facility] Work Phone: Start: 03-30-2025 End: 03-30-2025 ambulatory Maddie Villalobos MD Facility:[facility] Start: 03-27-2025 End: 03-27-2025 ambulatory Cecilio Ball DO Work Phone: [facility] Work Phone: Start: 03-27-2025 End: 03-27-2025 Patient encounter procedure Cecilio Ball DO -[facility] Work Phone: Start: 03-23-2025 Non-patient / Non-visit Zaira Wang [employer] -[facility] Work Phone: Start: 03-21-2025 Non-patient / Non-visit Mary Melchor PAC -[facility] Work Phone: Start: 02-18-2025 Non-patient / Non-visit Cecilio waldron DO -[facility] Work Phone: Start: 02-17-2025 End: 02-17-2025 ambulatory Cecilio Ball DO Work Phone: [facility] Work Phone: Start: 02-17-2025 End: 02-17-2025 Patient encounter procedure Faheem Sevilla MD -[facility] Work Phone: Start: 02-17-2025 End: 02-17-2025 Patient encounter procedure Faheem Sevilla MD -[facility] Start: 02-17-2025 End: 02-17-2025 ambulatory Cecilio Ball DO Work Phone: [facility] Work Phone: Start: 02-11-2025 End: 02-11-2025 ambulatory Cecilio Ball DO Work Phone: [facility] Work Phone: Start: 02-11-2025 End: 02-11-2025 Patient encounter procedure Cecilio Benjamin DO -[facility] Work Phone: Start: 01-29-2025 End: 01-29-2025 ambulatory [facility] Work Phone: Start: 01-29-2025 End: 01-29-2025 Patient encounter procedure [facility] Work Phone: Start: 01-20-2025 End: 01-20-2025 ambulatory [facility] Work Phone: Start: 01-20-2025 End: 01-20-2025 Patient encounter procedure [facility] Work Phone: Start: 01-05-2025 End: 01-05-2025 ambulatory Maddie Villalobos MD Facility: [facility] Start: 12-09-2024 End: 12-09-2024 ambulatory [facility] Work Phone: Start: 12-09-2024 End: 12-09-2024 Patient encounter procedure [facility] Work Phone: Start: 12-05-2024 Non-patient / Non-visit [facility] Work Phone: Start: 11-17-2024 End: 11-17-2024 ambulatory Maddie Villalobos MD Facility:[facility] Start: 11-06-2024 End: 11-06-2024 ambulatory [facility] Work Phone: Start: 11-06-2024 End: 11-06-2024 [facility] Work Phone: Start: 10-01-2024 End: 10-01-2024 ambulatory [facility] Work Phone: Start: 10-01-2024 End: 10-01-2024 [facility] Work Phone: Start: 08-18-2024 End: 08-18-2024 ambulatory Maddie Villalobos MD Facility: [facility] Start: 08-04-2024 End: 08-04-2024 ambulatory Maddie Villalobos MD Facility: [facility] Start: 07-14-2024 End: 07-14-2024 ambulatory Andbeto Villalobos MD Facility:[facility] Start: 05-28-2024 End: 05-28-2024 ambulatory [facility] Work Phone: Start: 05-28-2024 End: 05-28-2024 Patient encounter procedure [facility] Work Phone: Start: 05-26-2024 End: 05-26-2024 ambulatory Andbeto Villalobos MD Facility:[facility] Start: 01-22-2024 End: 01-22-2024 ambulatory [facility] Work Phone: Start: 01-22-2024 End: 01-22-2024 Patient encounter procedure [facility] Work Phone: Start: 10-30-2023 Non-patient / Non-visit [facility] Work Phone: Start: 09-28-2023 End: 09-28-2023 ambulatory Cecilio Ball Other [employer] Other Start: 09-28-2023 Office outpatient vi sit 15 minutes Cecilio Ball [facility] Start: 09-28-2023 Telephone encounter Cecilio Ball [facility] Start: 09-21-2023 End: 09-21-2023 ambulatory Cecilio Ball Other [employer] Other Start: 09-21-2023 Telephone encounter Cecilio Ball [facility] Start: 09-11-2023 End: 09-11-2023 ambulatory Cecilio Ball Other [employer] Other Start: 09-11-2023 Office outpatient vi sit 15 minutes Cecilio Ball [facility] Start: 09-11-2023 Telephone encounter Cecilio Ball [facility] Start: 09-03-2023 End: 09-03-2023 ambulatory Cecilio Ball Other [employer] Other Start: 09-03-2023 Telephone encounter Cecilio Ball [facility] Start: 08-03-2023 End: 08-03-2023 ambulatory Cecilio Ball Other [employer] Other Start: 08-03-2023 Telephone encounter Cecilio Ball [facility] Start: 08-01-2023 End: 08-01-2023 ambulatory Cecilio Ball Other [employer] Other Start: 08-01-2023 Office outpatient vi sit 15 minutes Cecilio Ball [facility] Start: 07-17-2023 End: 07-17-2023 ambulatory Cecilio Ball Other [employer] Other Start: 07-17-2023 Office outpatient vi sit 15 minutes Cecilio Benjamin [facility] Start: 07-10-2023 End: 07-10-2023 ambulatory Cecilio Benjamin Other [employer] Other Start: 07-10-2023 Office outpatient vi sit 15 minutes Cecilio Benjamin [facility] Start: 06-20-2023 End: 06-20-2023 ambulatory Cecilio Benjamin Other [employer] Other Start: 06-20-2023 Office outpatient vi sit 25 minutes Cecilio Benjamin [facility] Start: 06-15-2023 End: 06-15-2023 ambulatory Cecilio Benjamin Other [employer] Other Start: 06-15-2023 Telephone encounter Cecilio Benjamin [facility] Start: 05-30-2023 End: 05-30-2023 ambulatory Cecilio Benjamin Other [employer] Other Start: 05-30-2023 Office outpatient vi sit 15 minutes Cecilio Benjamin [facility] Start: 03-20-2023 Telephone encounter Delio Jaeger DO Work Phone: [facility] Comment on above: Follow Up Phone Call Start: 03-15-2023 End: 03-15-2023 ambulatory DELIO JAEGER Facility:[facility] Start: 02-27-2023 Orders Only Delio Marcos DO Work Phone: Procedures Comment on above: Pseudoclaudication s yndrome (Primary Dx); Lumbar radiculopathy Start: 02-26-2023 Telephone encounter Delio Jaeger DO Work Phone: [facility] Comment on above: Procedure Start: 02-19-2023 Telephone encounter Delio Jaeger DO Work Phone: [facility] Comment on above: Appointment Start: 02-14-2023 End: 02-14-2023 ambulatory Cecilio Benjamin Other [employer] Other Start: 02-14-2023 Patient encounter procedure Cecilio Benjamin [facility] Start: 02-13-2023 End: 02-13-2023 ambulatory Cecilio Benjamin Other [employer] Other Start: 02-13-2023 Telephone encounter Cecilio Benjamin [facility] Start: 02-08-2023 End: 02-08-2023 ambulatory Cecilio Benjamin Other [employer] Other Start: 02-08-2023 Telephone encounter Cecilio DENISE [facility] Start: 02-01-2023 End: 02-01-2023 ambulatory Jose Enrique Leblanc II Other [employer] Other Start: 02-01-2023 Office outpatient vi sit 25 minutes Jose Enrique Miami II [facility] Start: 12-11-2022 End: 12-11-2022 ambulatory Cecilio Benjamin Other [employer] Other Start: 12-11-2022 Office outpatient vi sit 15 minutes Cecilio Benjamin [facility] Start: 11-09-2022 End: 11-09-2022 Patient encounter procedure MD Jose Enrique Leblanc II Work Phone: [facility] Start: 11-09-2022 End: 11-09-2022 ambulatory MD Jose Enrique Leblanc II Work Phone: [facility] Work Phone: Start: 11-09-2022 Office outpatient ne w 45 minutes Jose Enrique Guerrerole II [facility] Start: 11-09-2022 Office outpatient vi sit 15 minutes Cecilio Benjamin [facility] Start: 11-05-2022 End: 11-05-[address] CECILIO BENJAMIN Facility:[facility] Start: 10-12-2022 End: 10-12-2022 ambulatory Cecilio Benjamin Other [employer] Other Start: 10-12-2022 Office outpatient vi sit 25 minutes Cecilio Benjamin [facility] Start: 09-27-2022 End: 09-27-2022 ambulatory Cecilio Brandon Other [employer] Other Start: 09-27-2022 Telephone encounter Cecilio [facility] Start: 09-26-2022 End: 09-27-[address] CECILIO BENJAMIN Facility:[facility] Start: 08-25-2022 End: 08-25-2022 ambulatory Cecilio Benjamin Other [employer] Other Start: 08-25-2022 Telephone encounter Cecilio [facility] Start: 08-10-2022 End: 08-10-[address] CECILOI BENJAMIN Facility:[facility] Start: 02-09-2022 End: 02-10-[address] CECILIO BENJAMIN Facility:[facility] Start: 12-06-2021 End: 12-07-[address] CECILIO BENJAMIN Facility:[facility] Start: 01-22-2018 End: 04-20-2018 Patient encounter [id number] AUGUSTINE BRANDON Facility:[facility] Procedures Date Procedure Procedure Detail Performing Clinician [...] of left wrist XR wrist LT 2V [facility] Start: 03-31-2025 XR Wrist - left 2 Views [facility] Start: 02-17-2025 Plain X-ray of left wrist XR wrist LT min 3V* [facility] Start: 02-17-2025 XR Wrist - left GE 3 Views [facility] Start: 01-22-2024 Patient referral [facility] Work Phone: Start: 04-20-2023 Influenza vaccination INFLUENZA (#1) [facility] Start: 10-01-2022 COVID-19 VACCINE (5 - Moderna series) COVID-19 VACCINE (5 - Moderna series) [facility] Start: 08-20-2022 ADVANCE DIRECTIVE DISCUSSION ADVANCE DIRECTIVE DISCUSSION [facility] Start: 08-20-2022 DEPRESSION ASSESSMENT DEPRESSION ASS ESSMENT [facility] Start: 09-19-2021 COVID-19 VACCINE (4 - Booster for Moderna series) COVID-19 VACCINE (4 - Booster for Moderna series) [facility] Start: 09-19-2021 COVID-19 VACCINE (4 - Moderna series) COVID-19 VACCINE (4 - Moderna series) [facility] Start: 01-02-2021 DIABETES SCREEN DIABETES SCREEN [facility] Start: 1991 SHINGRIX VACCINE (1 of 2) SHINGRIX VACCINE (1 of 2) [facility] Start: 1960 Urine microalbumin profile DTAP,TDAP,TD (1 - Tdap) [facility] Start: 1959 SPIROMETRY SPIROMETRY [facility] Start: 1947 PNEUMOCOCCAL: 65+ (1 - PCV) PNEUMOCOCCAL: 65+ (1 - PCV) [facility] Comprehensive metabo lic 2000 panel - Serum or Plasma [facility] Patient referral [facility] Work Phone: SPINE INTERVENTION PROCEDURE SPINE INTERVENTION PROCEDURE Procedures Routine Spinal stenosis, lumbar region with neurogenic claudication Lumbar radiculopathy, chronic Ordered: 02/19/[address] [facility] Work Phone: Comment on above: Ordered: 02/19/2023 XR Wrist - left GE 3 Views [facility] Immunizations Immunization Date Immunization Notes Care Provider Coleman [email or web address] 05-28-2024 influenza, high dose seasonal, preservative-free [facility] 05-30-2023 COVID-19 Vaccine Moderna - Documentation Purposes Only Cecilio Benjamin Other [facility] 05-30-2023 influenza virus vaccine, unspecified formulation [facility] 05-30-2023 influenza, high dose seasonal, preservative-free Cecilio Benjamin Other [facility] [employer] Other 06-13-2022 influenza virus vaccine, split virus (incl. purified surface antigen) Cecilio Benjamin Other [place] [employer] Other 06-13-2022 influenza virus vaccine, unspecified formulation [facility] 06-13-2022 influenza, high dose seasonal, preservative-free Jose Enrique Benji II Other [facility] [employer] Other 05-31-2022 COVID-19 Pfizer (bivalent) Jose Enrique Miami II Other [facility] 05-31-2022 COVID-19 Pfizer (Pediatric) Cecilio Benjamin Other [facility] 07-25-2021 COVID-19 Vaccine Moderna - Documentation Purposes Only Jose Enrique Miami II Other [facility] 05-03-2021 zoster vaccine recombinant Jose Enrique Miami II Other [facility] 05-03-2021 zoster vaccine, live Benjami n Ball Other [facility] 01-28-2021 zoster vaccine recombinant Jose Enrique Benji II Other [facility] 01-28-2021 zoster vaccine, live Benjami n Ball Other [facility] 10-25-2020 COVID-19 Vaccine Moderna - Documentation Purposes Only Jose Enrique Miami II Other [facility] 09-27-2020 COVID-19 Vaccine Moderna - Documentation Purposes Only Jose Enrique Miami II Other [facility] 05-24-2020 influenza virus vaccine, split virus (incl. purified surface antigen) Cecilio Benjamin Other [facility] [employer] Other 05-24-2020 influenza virus vaccine, unspecified formulation [facility] 01-03-2019 diphtheria, tetanus toxoids and acellular pertussis vaccine, unspecified formulation Cecilio Benjamin Other [facility] 12-25-2018 pneumococcal polysaccharide vaccine, 23 valent Jose Enrique Miami II Other [facility] 04-30-2018 influenza virus vaccine, split virus (incl. purified surface antigen) Cecilio Benjamin Other [facility] [employer] Other 04-30-2018 influenza virus vaccine, unspecified formulation [facility] 04-09-2017 influenza virus vaccine, split virus (incl. purified surface antigen) Cecilio Benjamin Other [facility] [employer] Other 04-09-2017 influenza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
[2025-04-27 12:44] VITALS: BP 180/79; PULSE 66; O2SAT 100
[2025-04-27 12:45] VITALS: BP 172/82; PULSE 61; O2SAT 98
[2025-04-27] MEDS: LIDOCAINE HCL 2% 400 MG/20 ML MDV 3 ML INJ (12:46)
[2025-04-27] MEDS: 0.9 % SODIUM CHLORIDE 10 ML SYRINGE - SALINE FLUSH INJ (12:46)
[2025-04-27] MEDS: BUPIVACAINE HCL 0.25% PF 25 MG/10 ML VIAL INJ (12:46)
[2025-04-27] MEDS: IOHEXOL 240 MG/ML - 10 ML VIAL 24 MG INJ (12:46)
[2025-04-27] MEDS: METHYLPREDNISOLONE ACETATE 80 MG/ML VIAL INJ (12:47)
--- NOTE | 2025-04-27 12:49 | W.PM.PROCNOT ---
Date of procedure: 04/27/25 Pre-op diagnosis: Pain due to lumbar stenosis with neurogenic claudication Post-op diagnosis: same as pre-op Procedure: Procedure: Bilateral L4-5 transforaminal epidural steroid injection Medications: Bupivacaine 0.25% 2cc, lidocaine 2% 1cc, depomedrol 80mg The patient was seen and examined in the preoperative holding area.? Informed consent was obtained and placed on the chart.? Patient was brought to the medical procedure unit and placed in the prone position where a timeout was completed verifying the correct patient, procedure site, position, and planned special equipment using sterile aseptic technique.? Under direct fluoroscopic visualization a 25-gauge Quincke tipped spinal needle was advanced at level L4-5 to the designated neural foramen where contrast dye was injected to show adequate spread.? There was no evidence of vascular or adverse uptake.? Epidural spread was appreciated.? The above-mentioned injectate was then placed in a 1.5 mL aliquot preceded by negative aspiration.? The needle was removed. The same procedure, at the same level, was completed on the opposite side. ? Patient was taken to the postprocedural recovery area and monitored for an appropriate length of time before found suitable for discharge in the accompaniment of a responsible adult. Anesthesia: Local Surgeon: Maddie Villalobos Pathology: none sent Condition: stable Disposition: no change
== END 2025-04-27 12:54 | disposition home or self-care (01) ==
LOC: SURGOUT 12:01
PROVIDERS: PCP Internal Medicine; Visit Provider Anesthesiology
DX: M48.062 Spinal stenosis, lumbar region with neurogenic claudication (principal); M54.50 Low back pain, unspecified
CPT/HCPCS: 64483; J0665; J1010; Q9966

== ENCOUNTER 2025-05-06 10:44 | Outpatient (OUT) | payer MEDICARE, OTHER, SELFPAY ==
--- OUTSIDE RECORDS SUMMARY | 2025-05-06 10:46 | XMS_ITS | Clinical Summary ---
Author Organization [facility] tem Address [id number] [address] [place] [address] Care Team Providers Care Vice President Process Name Role Phone Cecilio Benjamin DO Primary Care Provider [phone] Allergies Active Allergy Reactions Criticality Noted Date [...] Medical Devices Not on file Insurance MEDICARE [place] [employer] Care Teams Vice President Process Relationship Specialty Start Date End Date Cecilio Benjamin DO [address] [place] [id number] PCP - General 12/20/16
--- OUTSIDE RECORDS SUMMARY | 2025-05-06 10:46 | XMS_ITS | Clinical Summary ---
Author Organization [facility] Address [address] [place] [address] Care Team Providers Care Electric Detector Operator Name Role Phone Unavailable Primary Care [...]
--- OUTSIDE RECORDS SUMMARY | 2025-05-06 10:46 | XMS_ITS | Clinical Summary ---
Author Organization [facility] Address [facility] [place] [address] Care Team Providers Care Reiki Practitioner Name Role Phone Cecilio Benjamin DO Primary Care Provider [phone] Allergies Active Allergy Reactions Criticality Noted Date [...] (10/30/2017): Added automatically from request for surgery [id number] Complete tear of right rotator cuff 05/17/2017 Overview (05/17/2017): Added automatically from request for surgery [id number] Incomplete tear of right rotator cuff 01/11/2017 [...] is lower risk 4 03/15/2023 Data from: https://[email or web address]/. Last address used for calculation [...] history exists Medical Devices Implanted Type Area Plush Brusher Device Identifier Shelf Expiration Date Model / Serial / Lot [place] Corkscrew Fiberwire Tigerwire 5.5mm 2 Full Thread Biocomposite 14.7 - [id number] Implanted:Qty: 1 on 06/29/2017 at [facility] [place] Right: Bone - Shoulder [employer] 12/17/2018 [id number] / / [id number] [place] Swivelock Tenodesis 8mm Biocomposite 19.5mm Suture [place] Eyelet - [id number] Implanted:Qty: 1 on 06/29/2017 at [facility] [place] Right: Bone - Shoulder [employer] 06/19/2018 [id number] / / [id number] Shell 56mm E Hemispherical Tritanium Acetabular Primary Rim Cluster Hole - [id number] Implanted:2017 at [facility] (Quantity not on file) Joint - Hip Right: Bone - Hip [employer] 12/04/2022 [id number] / [id number] / [id number] Insert Trident 40mm 0d E X3 Acetabular Hip - [id number] Implanted:2017 at [facility] (Quantity not on file) Joint - Hip Right: Bone - Hip [employer] 06/24/2022 [id number] / [id number] / [id number] Head 40mm [place] Biolox Delta Tritanium Femoral Hip - [id number] Implanted:2017 at [facility] (Quantity not on file) Joint - Hip Right: Bone - Hip [employer] 09/26/2022 [id number] / / [id number] Stem Accolade Ii 6 132d Femoral - [id number] Implanted:2017 at [facility] (Quantity not on file) Joint - Hip Right: Bone - Hip [employer] 07/29/2022 [id number] / [id number] / [id number] Sleeve V40 +0mm Offset [place] Taper Titanium Adapter Hip - [id number] Implanted:2017 at [facility] (Quantity not on file) Joint - Hip Right: Bone - Hip [employer] 08/28/2022 [id number] / / [id number] Screw Trident Secur-Fit Torx 6.5mm Titanium 20mm Bone Sterile Acetabular - [id number] Implanted:2017 at [facility] (Quantity not on file) Screw Right: Bone - Hip [employer] 11/11/2022 [id number] / [id number] / [id number] Procedures Procedure Name Priority Date/Time Associated Diagnosis Comments BASIC METABOLIC PANEL (EU,FV,HL,NATALI,MM,SP) SHAJI 01/02/2018 4:32 AM EDT from Last 3 Months or Most Recently Relevant to Health Maintenance Results * (ABNORMAL) BASIC METABOLIC PANEL (AK,AV,EU,FV,HL,NATALI,MM,SP) (01/02/2018 4:32 AM EDT) Glucose 130(H) 74 - 99 mg/dL 01/02/2018 6:30 AM [facility] Comment: The [place] Diabetes Association (ADA) provides guidance for cutoff [...] Standards of Medical Care in Diabetes 2016, [place] Diabetes Association. Diabetes Care. 2016.39(Suppl 1). BUN 20 9 - 24 mg/dL 01/02/2018 6:30 AM [facility] Creatinine 1.22 0.73 - 1.22 mg/dL 01/02/2018 6:30 AM [facility] Sodium 140 136 - 144 mmol/L 01/02/2018 6:30 AM [facility] Potassium 4.4 3.7 - 5.1 mmol/L 01/02/2018 6:30 AM [facility] Chloride 102 97 - 105 mmol/L 01/02/2018 6:30 AM [facility] CO2 27 22 - 30 mmol/L 01/02/2018 6:30 AM [facility] Anion Gap 11 9 - 18 mmol/L 01/02/2018 6:30 AM [facility] Calcium 8.1(L) 8.6 - 10.0 mg/dL 01/02/2018 6:30 AM EDT [facility] eGFR- >60 01/02/2018 6:30 AM EDT [facility] eGFR-All Other Races 58 . 01/02/2018 6:30 AM EDT [facility] Comment: eGFR (Estimated GFR) [...] [place] PA-C [facility] Final Re sult [facility] [address] [place] [address], from Last 3 Months or Most Recently Relevant to Health Maintenance Insurance MEDICARE Member Subscriber Plan / Payer (Ef fective 2006-Present) Name:Ruperto Thorpe Member ID:[id number] Relation to Subscriber:Self Name:Ruperto Thorpe Subscriber ID:[id number] Payer ID:Not on file Group ID:Not on file Type:Medicare Address: [facility] [place] [id number] Care Teams Reiki Practitioner Relationship Specialty Start Date End Date Cecilio Benjamin DO PCP - General Internal Medicine 09/04/13
--- OUTSIDE RECORDS SUMMARY | 2025-05-06 10:51 | XMS_ITS | CCD ---
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 Name Role Phone BRANDON [phone] UNKNOWN Unavailable Unavailable CANDELARIO GOODEN Unavailable Unavailable GIACOMO, CANDELARIO Campbell Unavailable Unavailable CANDELARIO GOODEN Unavailable Unavailable Cecilio [...] Care Unavailable BALL, DR RUIZ Consulting Unavailable BRANDON, DR RUIZ Admitting Unavailable BALL, DR RUIZ Attending Unavailable BALL, DR RUIZ Primary Care Unavailable BALL, DR RUIZ Consulting Unavailable HAWLEY, WINELISE Consulting Unavailable MD Jose Enrique Leblanc II Attending Provider Jose Enrique Leblanc II Unavailable Cecilio Benjamin DO Primary Care Provider DELIO JAEGER Admitting Unavailable DELIO JAEGER Attending Unavailable CECILIO BENJAMIN Primary Care Unavailable Cecilio Benjamin DO Primary Care Provider Jerry Gifford DO Attending Provider [phone] Cecilio Benjamin DO Attending Provider [phone] Faheem Sevilla MD Attending Provider [phone] Cecilio Benjamin DO Primary Care Provider [phone] Cecilio Benjamin DO Attending Provider [phone] Alyx Vargas PA-C Attending Provider Zaira Reed CMA Attending Provider Unavaila ble Di, Faheem Attending Unavailable Cecilio Benjamin Primary Care Unavailable Olemichael, Faheem Admitting Unavailable Olemichael, Faheem Attending Unavailable Cecilio Benjamin Primary Care Unavailable Di, Faheem Admitting Unavailable Giedraitis MD, Andrius Vytautherlinda Attending Unavailable Giedraitis MD, Andrius Vytautas Attending Unavailable Giedraitis MD, Andrius Vytautas Attending Unavailable Giedraitis MD, Andrius Vytautas Attending Unavailable Giedraitis MD, Andrius Vytautas Attending Unavailable Giedraitis MD, Andrius Vytautas Attending Unavailable Giedraitis MD, Andrius Vytautas Attending Unavailable Giedraitis MD, Andrius Vytautas Attending Unavailable Allergies Allergy Classification Reported Allergen(s) Allergy Type Date of Onset Reaction(s) Facility (7 sources) bacitracin; Translations: [bacitracin] Drug Allergy 09-11-2013 Unknown [facility] Repository (19 sources) Albuterol Drug Allergy Unknown [facility] Other (20 sources) HMG-CoA reductase inhibitor Drug allergy Unknown [facility] Other (1 source) Fzkqlsi-[id number]-WhG Reductase Inhibitor Drug allergy (disorder) 03-31-2025 [facility] Repository Medications Current Medications Medication Drug Class(es) [...] Start: 07-10-2023 take 1 capsule by mo [facility] every twelve hours Doxycycline Hyclate 100 [...] 10 MG PO Daily at bedtime 90 March 13, 2025 9:43am Complies with [...] or wheezing 540 90 November 06, 2024 11:42am November 11, 2024 [...] Take 1 capsule by [facility] twice daily. (Stool softener) ferrous sulfate 325 mg oral tablet (1 source) Start: 01-03-20 End: 02-20-20 take 1 tablet by mouth twice daily at mealtime ferrous sulfate 325 mg (65 mg iron) tablet Take 1 tablet by mouth twice daily with meals. (Iron supplement) 30 tablet 0 01/02/2018 02/19/2023 Discontinued Comment on above: Take 1 tablet by [facility] twice daily with meals. (Iron supplement) FISH OIL-DHA-EPA ORAL (4 sources) take 1 capsule by mouth once daily FISH OIL-DHA-EPA ORAL Take 1 capsule by mouth once daily. 0 Active Comment on above: Take 1 capsule by [facility] once daily. Fluticasone Propionate (9 sources) Corticosteroid [...] cream with perineal applicator Discontinued 1 APPLIC ME 1 to 2 times per day as [...] 1 capsule by mo [facility] once daily. predniSONE 20 mg oral tablet [...] 01-22-2024 Episodic Other aftercare (2 sources) Other [facility] (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 therapy; Translations: [[facility] [...] By: Olvin Aviles on 03-31-2025 Study report [facility] [address] [place] [address] XRay Report Signed Patient: Neisha Thorpe MR#: [id number] : 1940 Acct:[id number] Age/Sex: 84 / M ADM Date: 5 Loc: [facility] Room: Type: [facility] CLI Attending Dr: Faheem Sevilla MD [...] Aviles M.D. 03/31/2025 12:34 PM Dictation Location: [place] [address] Transcribed By: [facility] 03/31/25 1234 Dictated By: Jerry Aviles DO 03/31/25 1233 Signed By: 03/31/25 1234 [facility] XR wrist LT 2Von 03-31-2025 XR wrist LT 2V [facility] [address] [place] [address] XRay Report Signed Patient: Neisha Thorpe MR#: [id number] 5 : 1940 Acct:[id number] Age/Sex: 84 / M ADM Date: 03/31/25 Loc: [facility] Room: Type: [facility] CLI Attending Dr: Faheem Sevilla MD [...] Aviles M.D. 03/31/2025 12:34 PM Dictation Location: [facility]--20 Transcribed By: [facility] 03/31/25 1234 Dictated By: Jerry Aviles DO 03/31/25 1233 Signed By: 03/31/25 1234 Normal The Replaced By [facility] Basophils Auto (Bld) [#/Vol] Ordered By: Alyx Vargas on 03-21-2025 Basophils (Bld) [#/Vol] 0.0 10 3/uL 0.0-0.1 [facility] Basophils/100 WBC Auto (Bld) Ordered By: Alyx Vargas on 03-21-2025 Basophils/100 WBC (Bld) 0.4 % 0.2-2.0 [facility] Eosinophils/100 WBC Auto (Bl d)Ordered By: Alyx Vargas on 03-21-2025 Eosinophils/100 WBC (Bld) 6.9 % 0.9-7.0 [facility] Erythrocyte distribution wid th Auto (RBC) [Ratio]Ordered By: Alyx Vargas on 03-21-2025 Erythrocyte distribution width (RBC) [Ratio] 11.9 % 11.0-15.0 [facility] Estimated glomerular filtrat ion rate (GFR) non- AmericanOrdered By: Alyx Vargas on 03-21-2025 GFR/1.73 sq M.predicted among non-blacks MDRD (S/P/Bld) [Vol rate/Area] 50 mL/min/{1.73_m2} Low >=60 mL/min/1.73 m 2 [facility] Hematocrit Auto (Bld) [Volum e fraction]Ordered By: Alyx Vargas on 03-21-2025 Hematocrit (Bld) [Volume fraction] 40.7 % Low 42.0-54.0 [facility] Hemoglobin [Mass/volume] in BloodOrdered By: Alyx Vargas on 03-21-2025 Hemoglobin (Bld) [Mass/Vol] 14.1 g/dL 14.0-18.0 [facility] Laboratory - Chemistry and C hemistry - challengeOrdered By: Alyx Vargas on 03-21-2025 Calcium [Mass/Vol] 9.0 mg/dL 8.5-10.1 [facility] Chloride [Moles/Vol] 103 mmol/L 98-107 [facility] CO2 [Moles/Vol] 32.4 mmol/L High 21.0-32.0 [facility] Creatinine [Mass/Vol] 1.37 mg/dL High 0.70-1.30 [facility] GFR/1.73 sq M.predicted MDRD (S/P/Bld) [Vol rate/Area] mL/min/{1.73_m2} >=60 mL/min/1.73 m 2 [facility] Glucose [Mass/Vol] 109 mg/dL High 74-106 [facility] Potassium [Moles/Vol] 4.4 mmol/L 3.5-5.1 [facility] Sodium [Moles/Vol] 140 mmol/L 136-145 [facility] Urea nitrogen [Mass/Vol] 19.0 mg/dL High 7.0-18.0 [facility] Urea nitrogen/Creatinine [Mass ratio] 13.9 mg/mg [facility] Laboratory - Hematology and Cell countsOrdered By: Alyx Vargas on 03-21-2025 Immature granulocytes/100 WBC (Bld) 0.3 % 0.0-0.5 [facility] Leukocytes [#/volume] correc poncho for nucleated erythrocytes in Blood by Automated counOrdered By: Alyx Vargas on 03-21-2025 WBC corrected for nucl RBC Auto (Bld) [#/Vol] 8.0 10 3/uL 4.0-11.0 [facility] Lymphocytes Auto (Bld) [#/Vo l]Ordered By: Alyx Vargas on 03-21-2025 Lymphocytes (Bld) [#/Vol] 1.2 10 3/uL 1.2-3.8 [facility] Lymphocytes/100 WBC Auto (Bl d)Ordered By: Alyx Vargas on 03-21-2025 Lymphocytes/100 WBC (Bld) 15.5 % Low 20.5-60.0 [facility] MCH Auto (RBC) [Entitic mass ]Ordered By: Alyx Vargas on 03-21-2025 MCH (RBC) [Entitic mass] 32.9 pg 25.9-34.0 [facility] MCHC Auto (RBC) [Mass/Vol]Or dered By: Alyx Vargas on 03-21-2025 MCHC (RBC) [Mass/Vol] 34.6 g/dL 29.9-35.2 [facility] MCV Auto (RBC) [Entitic vol] Ordered By: Alyx Vargas on 03-21-2025 MCV (RBC) [Entitic vol] 94.9 fL High 80.0-94.0 [facility] Monocytes Auto (Bld) [#/Vol] Ordered By: Alyx Vargas on 03-21-2025 Monocytes (Bld) [#/Vol] 0.8 10 3/uL 0.3-0.8 [facility] Monocytes/100 WBC Auto (Bld) Ordered By: Alyx Vargas on 03-21-2025 Monocytes/100 WBC (Bld) 9.4 % 1.7-12.0 [facility] Neutrophils Auto (Bld) [#/Vo l]Ordered By: Alyx Vargas on 03-21-2025 Neutrophils (Bld) [#/Vol] 5.4 10 3/uL 1.4-6.5 [facility] Neutrophils/100 WBC Auto (Bl d)Ordered By: Alyx Vargas on 03-21-2025 Neutrophils/100 WBC (Bld) 67.5 % 43.0-75.0 [facility] No Panel InformationOrdered By: Alyx Vargas on 03-21-2025 Eosinophils # (Auto) 0.6 10 3/uL 0.0-0.7 [facility] Immature Granulocyte # (Auto) 0.02 10 3/uL 0.00-0.03 [facility] Platelet mean volume Auto (B ld) [Entitic vol]Ordered By: Alyx Vargas on 03-21-2025 Platelet mean volume (Bld) [Entitic vol] 10.5 fL 9.5-13.5 [facility] Platelets Auto (Bld) [#/Vol] Ordered By: Alyx Vargas on 03-21-2025 Platelets (Bld) [#/Vol] 136 10 3/uL Low 150-450 [facility] RBC Auto (Bld) [#/Vol]Ordere d By: Alyx Vargas on 03-21-2025 RBC (Bld) [#/Vol] 4.29 10 6/uL Low 4.70-6.[address] [facility] Serum or plasma anion gap de terminationOrdered By: Alyx Vargas on 03-21-2025 Anion gap [Moles/Vol] 9.0 mmol/L [facility] Basophils Auto (Bld) [#/Vol] Ordered By: Cecilio Benjamin on 02-18-2025 Basophils (Bld) [#/Vol] 0.1 10 3/uL 0.0-0.1 [facility] Basophils/100 WBC Auto (Bld) Ordered By: Cecilio Benjamin on 02-18-2025 Basophils/100 WBC (Bld) 0.9 % 0.2-2.0 [facility] Cholesterol in LDL Calc [Mas s/Vol]Ordered By: Cecilio Benjamin on 02-18-2025 Cholesterol in LDL [Mass/Vol] 138.0 mg/dL [facility] Comment on above: <100 mg/dl [id number] 0-129 mg/dl NEAR OR ABOVE [id number] mg/dl BORDERLINE [id number] mg/dl HIGH>190 mg/dl VERY HIGH Cholesterol in VLDL Calc [Ma ss/Vol]Ordered By: Cecilio Benjamin on 02-18-2025 Cholesterol in VLDL [Mass/Vol] 16.0 mg/dL [facility] Eosinophils/100 WBC Auto (Bl d)Ordered By: Cecilio Benjamin on 02-18-2025 Eosinophils/100 WBC (Bld) 7.3 % High 0.9-7.0 [facility] Erythrocyte distribution wid th Auto (RBC) [Ratio]Ordered By: Cecilio Benjamin on 02-18-2025 Erythrocyte distribution width (RBC) [Ratio] 12.4 % 11.0-15.0 [facility] Estimated glomerular filtrat ion rate (GFR) non- AmericanOrdered By: Cecilio Benjamin on 02-18-2025 GFR/1.73 sq M.predicted among non-blacks MDRD (S/P/Bld) [Vol rate/Area] 53 mL/min/{1.73_m2} Low >=60 mL/min/1.73 m 2 [facility] Globulin Calc (S) [Mass/Vol] Ordered By: Cecilio Benjamin on 02-18-2025 Globulin (S) [Mass/Vol] 3.2 g/dL [facility] Hematocrit Auto (Bld) [Volum e fraction]Ordered By: Cecilio Benjamin on 02-18-2025 Hematocrit (Bld) [Volume fraction] 42.5 % 42.0-54.0 [facility] Hemoglobin [Mass/volume] in BloodOrdered By: Cecilio Benjamin on 02-18-2025 Hemoglobin (Bld) [Mass/Vol] 15.1 g/dL 14.0-18.0 [facility] Laboratory - Chemistry and C hemistry - challengeOrdered By: Cecilio Benjamin on 02-18-2025 Albumin [Mass/Vol] 3.6 g/dL 3.4-5.0 [facility] ALP [Catalytic activity/Vol] 59 U/L 46-116 [facility] ALT [Catalytic activity/Vol] 24 U/L 16-63 [facility] AST [Catalytic activity/Vol] 18 U/L 15-37 [facility] Bilirubin [Mass/Vol] 0.8 mg/dL 0.2-1.0 [facility] Calcium [Mass/Vol] 9.0 mg/dL 8.5-10.1 [facility] Chloride [Moles/Vol] 104 mmol/L 98-107 [facility] Cholesterol [Mass/Vol] 209 mg/dL High <=200 Fi [facility] Cholesterol in HDL [Mass/Vol] 55 mg/dL 40-60 [facility] Comment on above: > or =60 mg/dl - LOW CARDIOVASCULAR RISK<40 mg/dl - HIGH CARDIOVASCULAR RISK CO2 [Moles/Vol] 29.6 mmol/L 21.0-32.0 [facility] Creatinine [Mass/Vol] 1.29 mg/dL 0.70-1.30 [facility] GFR/1.73 sq M.predicted MDRD (S/P/Bld) [Vol rate/Area] mL/min/{1.73_m2} >=60 mL/min/1.73 m 2 [facility] Glucose [Mass/Vol] 90 mg/dL 74-106 [facility] Potassium [Moles/Vol] 4.5 mmol/L 3.5-5.1 [facility] Protein [Mass/Vol] 6.8 g/dL 6.4-8.2 [facility] Sodium [Moles/Vol] 141 mmol/L 136-145 [facility] Triglyceride [Mass/Vol] 80 mg/dL <=150 [facility] TSH Qn 1.229 m[IU]/L 0.358-3.740 [facility] Urea nitrogen [Mass/Vol] 22.0 mg/dL High 7.0-18.0 [facility] Urea nitrogen/Creatinine [Mass ratio] 17.1 mg/mg [facility] Laboratory - Hematology and Cell countsOrdered By: Cecilio Benjamin on 02-18-2025 Immature granulocytes/100 WBC (Bld) 0.8 % High 0.0-0.5 [facility] Leukocytes [#/volume] correc poncho for nucleated erythrocytes in Blood by Automated counOrdered By: Cecilio Benjamin on 02-18-2025 WBC corrected for nucl RBC Auto (Bld) [#/Vol] 6.5 10 3/uL 4.0-11.0 [facility] Lymphocytes Auto (Bld) [#/Vo l]Ordered By: Cecilio Benjamin on 02-18-2025 Lymphocytes (Bld) [#/Vol] 1.5 10 3/uL 1.2-3.8 [facility] Lymphocytes/100 WBC Auto (Bl d)Ordered By: Cecilio Benjamin on 02-18-2025 Lymphocytes/100 WBC (Bld) 22.4 % 20.5-60.0 [facility] MCH Auto (RBC) [Entitic mass ]Ordered By: Cecilio Benjamin on 02-18-2025 MCH (RBC) [Entitic mass] 33.3 pg 25.9-34.0 [facility] MCHC Auto (RBC) [Mass/Vol]Or dered By: Cecilio Benjamin on 02-18-2025 MCHC (RBC) [Mass/Vol] 35.5 g/dL High 29.9-35.2 [facility] MCV Auto (RBC) [Entitic vol] Ordered By: Cecilio Benjamin on 02-18-2025 MCV (RBC) [Entitic vol] 93.8 fL 80.0-94.0 [facility] Monocytes Auto (Bld) [#/Vol] Ordered By: Cecilio Benjamin on 02-18-2025 Monocytes (Bld) [#/Vol] 0.6 10 3/uL 0.3-0.8 [facility] Monocytes/100 WBC Auto (Bld) Ordered By: Cecilio Benjamin on 02-18-2025 Monocytes/100 WBC (Bld) 9.3 % 1.7-12.0 [facility] Neutrophils Auto (Bld) [#/Vo l]Ordered By: Cecilio Benjamin on 02-18-2025 Neutrophils (Bld) [#/Vol] 3.8 10 3/uL 1.4-6.5 [facility] Neutrophils/100 WBC Auto (Bl d)Ordered By: Cecilio Benjamin on 02-18-2025 Neutrophils/100 WBC (Bld) 59.3 % 43.0-75.0 [facility] No Panel InformationOrdered By: Cecilio Benjamin on 02-18-2025 Eosinophils # (Auto) 0.5 10 3/uL 0.0-0.7 [facility] Immature Granulocyte # (Auto) 0.05 10 3/uL High 0.00-0.03 [facility] Prostate Specific Antigen Screen 3.81 ng/mL <=4.00 [facility] Platelet mean volume Auto (B ld) [Entitic vol]Ordered By: Cecilio Benjamin on 02-18-2025 Platelet mean volume (Bld) [Entitic vol] 10.2 fL 9.5-13.5 [facility] Platelets Auto (Bld) [#/Vol] Ordered By: Cecilio Benjamin on 02-18-2025 Platelets (Bld) [#/Vol] 147 10 3/uL Low 150-450 [facility] RBC Auto (Bld) [#/Vol]Ordere d By: Cecilio Benjamin on 02-18-2025 RBC (Bld) [#/Vol] 4.53 10 6/uL Low 4.70-6.[address] [facility] Serum or plasma albumin/glob ulin mass ratioOrdered By: Cecilio Benjamin on 02-18-2025 Albumin/Globulin [Mass ratio] 1.1 {ratio} [facility] Serum or plasma anion gap de terminationOrdered By: Cecilio Benjamin on 02-18-2025 Anion gap [Moles/Vol] 11.9 mmol/L [facility] Serum or plasma total choles terol/high density lipoprotein (HDL) cholesterol mass ratOrdered By: Cecilio Benjamin on 02-18-2025 Cholesterol.total/Yelena sterol in HDL [Mass ratio] 3.8 {ratio} [facility] Comment on above: 3.3 - 4.4 LOW RISK4. 4 - 7.1 AVERAGE RISK7.1 - 11.0 MODERATE RISK>11.0 HIGH RISK X-ray reportOrdered By: Lorenzo Gomez on 02-17-2025 Study report [facility] [address] [place] [address] XRay Report Signed Patient: Neisha Thorpe MR#: [id number] : 1940 Acct:[id number] Age/Sex: 84 / M ADM Date: 5 Loc: [facility] Room: Type: [facility] Attending Dr: Faheem Sevilla MD Copies to: [...] Jr., D.O. 02/17/2025 10:32 AM Dictation Location: RADIO--23 Transcribed By: COLIN 02/17/25 1032 Dictated By: Candelario Gomez Jr, DO 02/17/25 1031 Signed By: 02/17/25 1032 [facility] XR wrist LT min 3V*on 2024 XR wrist LT min 3V* [facility] [address] [place] [address] XRay Report Signed Patient: Neisha Thorpe MR#: [id number] 5 : 1940 Acct:[id number] Age/Sex: 84 / M ADM Date: 02/17/25 Loc: [facility] Room: Type: [facility] Attending Dr: Faheem Sevilla MD Copies to: [...] Jr., D.O. 02/17/2025 10:32 AM Dictation Location: [facility]--23 Transcribed By: COLIN 02/17/25 1032 Dictated By: Candelario Gomez Jr, DO 02/17/25 1031 Signed By: 02/17/25 1032 Normal The Replaced By [facility] Basophils Auto (Bld) [#/Vol] on 12-05-2024 Basophils (Bld) [#/Vol] Automated basoph il count 0.0-0.1 [facility] Basophils (Bld) [#/Vol] 0.0 10 3/uL 0.0-0.1 [facility] Basophils/100 WBC Auto (Bld) on 12-05-2024 Basophils/100 WBC (Bld) Automated basophil % 0. 2-2.0 [facility] Basophils/100 WBC (Bld) 0.5 % 0.2-2.0 [facility] Eosinophils/100 WBC Auto (Bl d)on 12-05-2024 Eosinophils/100 WBC (Bld) Automated eosinophil % 0.9-7.0 [facility] Eosinophils/100 WBC (Bld) 4.8 % 0.9-7.0 [facility] Erythrocyte distribution wid th Auto (RBC) [Ratio]on 12-05-2024 Erythrocyte distribution width (RBC) [Ratio] Erythrocyte distribution width [Ratio] by Automated count 11.0-15.0 [facility] Erythrocyte distribution width (RBC) [Ratio] 12.7 % 11.0-15.0 [facility] Estimated glomerular filtrat ion rate (GFR) non- Americanon 12-05-2024 GFR/1.73 sq M.predicted among non-blacks MDRD (S/P/Bld) [Vol rate/Area] Estimated glomerular filtration rate (GFR) non- Low >=60 mL/min/1.73 m 2 [facility] GFR/1.73 sq M.predicted among non-blacks MDRD (S/P/Bld) [Vol rate/Area] 51 mL/min/{1.73_m2} Low >=60 mL/min/1.73 m 2 [facility] Hematocrit Auto (Bld) [Volum e fraction]on 12-05-2024 Hematocrit (Bld) [Volume fraction] Hematocrit [Volume Fraction] of Blood by Automated count Low 42.0-54.0 [facility] Hematocrit (Bld) [Volume fraction] 41.1 % Low 42.0-54.0 [facility] Hemoglobin [Mass/volume] in Bloodon 12-05-2024 Hemoglobin (Bld) [Mass/Vol] Hemoglobin [Mass/volume] in Blood 14.0-18.0 [facility] Hemoglobin (Bld) [Mass/Vol] 14.1 g/dL 14.0-18.0 [facility] Laboratory - Chemistry and C hemistry - challengeon 12-05-2024 Calcium [Mass/Vol] 8.9 mg/dL 8.5-10.1 [facility] Chloride [Moles/Vol] 103 mmol/L 98-107 [facility] CO2 [Moles/Vol] 29.1 mmol/L 21.0-32.0 [facility] Creatinine [Mass/Vol] 1.33 mg/dL High 0.70-1.30 [facility] GFR/1.73 sq M.predicted MDRD (S/P/Bld) [Vol rate/Area] mL/min/{1.73_m2} >=60 mL/min/1.73 m 2 [facility] Glucose [Mass/Vol] 101 mg/dL 74-106 [facility] Magnesium [Mass/Vol] 1.8 mg/dL 1.8-2.4 [facility] Potassium [Moles/Vol] 4.2 mmol/L 3.5-5.1 [facility] Sodium [Moles/Vol] 139 mmol/L 136-145 [facility] Urea nitrogen [Mass/Vol] 24.0 mg/dL High 7.0-18.0 [facility] Urea nitrogen/Creatinine [Mass ratio] 18.0 mg/mg [facility] - Hematology and Cell countson 12-05-2024 Immature granulocytes/100 WBC (Bld) 0.2 % 0.0-0.5 [facility] - Microbiology an d Antimicrobial susceptibilityon 12-05-2024 SARS-CoV-2 (COVID-19) RNA RICKY+probe Ql (Unsp spec) Negative NEGATIVE [facility] Comment on above: This test has not [...] diagnosis of Covid-19 under section 564(b)(1) of the[facility], [place] 360bbb-3(b)(1), unless the declaration isterminated or authorization is revoked sooner. Leukocytes [#/volume] correc ponhco for nucleated erythrocytes in Blood by Automated counon 12-05-2024 WBC corrected for nucl RBC Auto (Bld) [#/Vol] Leukocytes [#/volume] corrected for nucleated erythrocytes in Blood by Automated coun 4.0-11.0 [facility] WBC corrected for nucl RBC Auto (Bld) [#/Vol] 5.5 10 3/uL 4.0-11.0 [facility] Lymphocytes Auto (Bld) [#/Vo l]on 12-05-2024 Lymphocytes (Bld) [#/Vol] Lymphocytes [#/volume] in Blood by Automated count Low 1.2-3.8 [facility] Lymphocytes (Bld) [#/Vol] 0.9 10 3/uL Low 1.2-3.8 [facility] Lymphocytes/100 WBC Auto (Bl d)on 12-05-2024 Lymphocytes/100 WBC (Bld) Lymphocytes/100 leukocytes in Blood by Automated count Low 20.5-60.0 [facility] Lymphocytes/100 WBC (Bld) 16.7 % Low 20.5-60.0 [facility] MCH Auto (RBC) [Entitic mass ]on 12-05-2024 MCH (RBC) [Entitic mass] MCH [Entitic mass] by Automated count 25.9-34.0 [facility] MCH (RBC) [Entitic mass] 32.3 pg 25.9-34.0 [facility] MCHC Auto (RBC) [Mass/Vol]on 12-05-2024 MCHC (RBC) [Mass/Vol] MCHC [Mass/volume] by Automated count 29.9-35.2 [facility] MCHC (RBC) [Mass/Vol] 34.3 g/dL 29.9-35.2 [facility] MCV Auto (RBC) [Entitic vol] on 12-05-2024 MCV (RBC) [Entitic vol] MCV [Entitic vol ume] by Automated count High 80.0-94.0 [facility] MCV (RBC) [Entitic vol] 94.3 fL High 80.0-94.0 [facility] Monocytes Auto (Bld) [#/Vol] on 12-05-2024 Monocytes (Bld) [#/Vol] Automated blood monocyte count 0.3-0.8 [facility] Monocytes (Bld) [#/Vol] 0.6 10 3/uL 0.3-0.8 [facility] Monocytes/100 WBC Auto (Bld) on 12-05-2024 Monocytes/100 WBC (Bld) Automated monocyte % 1. 7-12.0 [facility] Monocytes/100 WBC (Bld) 10.1 % 1.7-12.0 [facility] Neutrophils Auto (Bld) [#/Vo l]on 12-05-2024 Neutrophils (Bld) [#/Vol] Neutrophils [#/volume] in Blood by Automated count 1.4-6.5 [facility] Neutrophils (Bld) [#/Vol] 3.7 10 3/uL 1.4-6.5 [facility] Neutrophils/100 WBC Auto (Bl d)on 12-05-2024 Neutrophils/100 WBC (Bld) Automated neutrophil % 43.0-75.0 [facility] Neutrophils/100 WBC (Bld) 67.7 % 43.0-75.0 [facility] No Panel Informationon 12-05 Eosinophils # (Auto) 0.3 10 3/uL 0.0-0.7 [facility] Immature Granulocyte # (Auto) 0.01 10 3/uL 0.00-0.03 [facility] Troponin I High Sensitivity 15.5 pg/mL 4.0-76.1 [facility] Comment on above: CUT-OFF POINTS HAVE BEEN [...] INFORMATION. Bedside Influenza Type A Antigen Negative [facility] Comment on above: Negative for Flu A p rotein antigen. Infection due to Flu Acannot be ruled out. Flu A antigen in the sample may bebelow the detection limit of the test. Bedside Influenza Type B Antigen Negative [facility] Comment on above: Negative for Flu B p rotein antigen. Infection due to Flu Bcannot be ruled out. Flu B antigen in the sample may bebelow the detection limit of the test. Platelet mean volume Auto (B ld) [Entitic vol]on 12-05-2024 Platelet mean volume (Bld) [Entitic vol] Platelet mean volume [Entitic volume] in Blood by Automated count 9.5-13.5 [facility] Platelet mean volume (Bld) [Entitic vol] 10.3 fL 9.5-13.5 [facility] Platelets Auto (Bld) [#/Vol] on 12-05-2024 Platelets (Bld) [#/Vol] Platelets [#/vol ume] in Blood by Automated count Low 150-450 [facility] Platelets (Bld) [#/Vol] 104 10 3/uL Low 150-450 [facility] RBC Auto (Bld) [#/Vol]on RBC (Bld) [#/Vol] Erythrocytes [#/volume] in Blood by Automated count Low 4.70-6.10 [facility] RBC (Bld) [#/Vol] 4.36 10 6/uL Low 4.70-6.[address] [facility] Serum or plasma anion gap de terminationon 12-05-2024 Anion gap [Moles/Vol] Serum or plasma an ion gap determination [facility] Anion gap [Moles/Vol] 11.1 mmol/L [facility] Influenza virus B Ag [Presen ce] in Upper respiratory specimen by Rapid immunoassayon 11-06-2024 FLUBV Ag IA.rapid Ql (Nph) Influenza virus B Ag [Presence] in Upper respiratory specimen by Rapid immunoassay [facility] No Panel Informationon 11-06 Influenza Type A (Rapid) Negative [facility] POC SARS CoV-2 Antigen Negative [facility] CNPNon 03-20-2023 CNPN Telephone (SPNMAV) NEISHA THORPE ([id number]) 1940 [address] [place] Date Time Provider Department 03/20/23 DELIO JAEGER SPTK During your visit today, we recorded the following information about you: Neida Caballero MA 03/20/2023 12:30 PM Signed DATE OF SERVICE: 03/15/2023 PATIENT'S PHONE NUMBERS: [phone] (home) OR @[email or web address]@ PROVIDER: Dr. Jaeger PROCEDURE: Elective Pain Management [...] work Requesting to call his CELL ONLY [phone] what to do next Leave Detailed messages [...] of spine injection schedulers to call at [phone]. Patient will call if he wants to schedule another injection. 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 Author [...] offered a procedure / surgery at a [facility] facility. Patient and I have discussed [...] surgery/procedure as indicated on the consent form. [facility] approved time out was performed identifying the site, side and level of procedure prior to start of procedure. [facility] [place] - ELECTIVE PROCEDURE Lumbar Transforaminal Epidural Steroid [...] the entire procedure. Delio Jaeger DO, MBA [facility] 02-26-2023 SIDNEYN Telephone (SPNMAV) NEISHA THORPE ([id number]) 1940 [place]* Date Time Provider Department 02/26/23 DELIO JAEGER SPJEREMYAV During your visit today, we recorded the following information about you: Linda Knox LPN 02/26/2023 4:49 PM Signed Spoke to patient in [facility] to pre procedure instructions. 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 Pt advised to arrive 30 min [...] take. Advised on location of [facility] Pt will receive a follow up call several days after by a team leader surgery. If you experience any increase in weakness, difficulty walking or significant increase in pain that last more than 4 hours, please proceed to the Emergency Room and tell them you had a spine procedure done recently. Additionally, call us and notify us of these symptoms. Please call [phone] if you have any questions. Pt verbalized [...] Status:Closed by LINDA KNOX LPN on 02/26/23 [facility] Unique 02-19-2023 CNPN Telephone (SPNMAV) NEISHA THORPE ([id number]) 1940 [place] Date Time Provider Department 02/19/23 DELIO JAEGER SPNMAV During your visit today, we recorded the following information about you: Camilla Jarrell [facility] 02/19/2023 9:27 AM Signed Neisha Thorpe daughter [...] call Celi as patient cannot hear well [phone] Patient has been identified by name and birthdate. Duration of symptoms: N/A Person calling: daughter: Celi Call patient at: N/A [phone] (home) [phone] (cell) Was an appointment scheduled: No Closing statement: Results or non-symptom based questions: Thank you for calling [facility], your call will be returned within the next business day. Camilla Knox LPN 02/19/2023 9:45 AM Signed Spine Intervention order formatted for review Linda Knox LPN 02/19/2023 11:59 AM Signed Order approved Spoke to daughter in [facility] to pre procedure instructions. 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 Pt advised to arrive 30 min prior to the time given by the braille transcriber. Pt advised will also receive a call the day before from the surgery center to confirm date/time. Pt can eat and drink as normal. and Pt can take medications as normal. No alcohol 24 hours prior. Pt is on ASA.- 81 mg okay to take. and must Advised on location of [facility] Pt will receive a follow up call several days after by a team leader surgery. If you experience any increase in weakness, difficulty walking or significant increase in pain that last more than 4 hours, please proceed to the Emergency Room and tell them you had a spine procedure done recently. Additionally, call us and notify us of these symptoms. Please call [phone] if you have any questions. Pt verbalized understanding. 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 Normal [facility] XR knee LT 4V*on 11-09-2022 XR knee LT 4V* [facility] [employer] Other XR knee LT 4V* [facility] [employer] Other XR knee LT 4V* [address] [facility] [employer] Other XR knee LT 4V* [place] [address] [facility] [employer] Other XR knee LT 4V* XRay Report [facility] [employer] Other XR knee LT 4V* Signed [employer] Other XR knee LT 4V* Patient: Neisha Thorpe MR#: [id number] [facility] Other XR knee LT 4V* 5 [employer] Other XR knee LT 4V* : 1940 Acct:[id number] [facility] Other XR knee LT 4V* Age/Sex: 82 / M ADM Date: 11/09/22 [facility] Other XR knee LT 4V* Loc: SOX Room: Type : [facility] [employer] Other XR knee LT 4V* Attending Dr: Jose Enrique Leblanc II, MD [facility] Other XR knee LT 4V* Copies to: Jose Enrique Leblanc MD [facility] Other XR knee LT 4V* Ordering Provider: Jose Enrique Leblanc MD [facility] Other XR knee LT 4V* Date of Service: 11/09/22 [facility] Other XR knee LT 4V* XR/XR knee LT 4V*: Acute pain of left knee [facility] Other XR knee LT 4V* XR knee LT 4V* 11/09/2022 3:15 PM [facility] [facility] Other XR knee LT 4V* SIGNS AND SYMPTOMS: Acute pain of left knee [facility] Other XR knee LT 4V* PROTOCOL: Frontal, lateral, oblique, and sunrise views of the left knee [facility] Other XR knee LT 4V* COMPARISON: 11/05/2022 [facility] Other XR knee LT 4V* FINDINGS: [employer] Other XR knee LT 4V* There is similar narrowing of the weightbearing joint spaces with chondrocalcinosis of the menisci [employer] Other XR knee LT 4V* suggesting underlyin g CPPD. There is narrowing of the patellofemoral joint space with spurring at [employer] [facility] Other XR knee LT 4V* the superior pole of patella. There is a small joint effusion. No soft tissue swelling. No acute [facility] [facility] Other XR knee LT 4V* displaced fracture. Vascular calcifications are present posteriorly. [facility] Other XR knee LT 4V* XR/XR knee LT 4V* [facility] Other XR knee LT 4V* IMPRESSION: [employer] Other XR knee LT 4V* Tricompartmental degenerative changes are noted in the left knee with a small joint effusion. [facility] Other XR knee LT 4V* There is chondrocalcinosis of the menisci suggesting underlying CPPD. [facility] [facility] Other XR knee LT 4V* Impression dictated by: Darren Yuen M.D.11/09/2022 5:03 PM [facility] Other XR knee LT 4V* Dictation Location: [place] [address] [facility] Other XR knee LT 4V* Transcribed By: COLIN 11/09/22 170 [facility] Other XR knee LT 4V* Dictated By: Darren Yuen II, MD 11/09/221700 [facility] Other XR knee LT 4V* Signed By: [employer] Other XR knee LT 4V* 11/09/22 1703 [employer] Other XR pelvis 1-2Von 11-09-2022 XR pelvis 1-2V XR/XR pelvis 1-2V: Acute pain of left knee [facility] Other XR pelvis 1-2V XR pelvis 1-2V 11/09/2022 3:15 PM [facility] Other XR pelvis 1-2V SIGNS AND SYMPTOMS: Left knee pain [facility] Other XR pelvis 1-2V PROTOCOL: Frontal radiograph of the chest [facility] Other XR pelvis 1-2V COMPARISON: None [facility] [employer] Other XR pelvis 1-2V There is mild narrowing of the left hip joint space with subcortical cystic change on both sides of [facility] Other XR pelvis 1-2V the joint along the acetabular there is chondrocalcinosis of the labrum overlying the superior [facility] Other XR pelvis 1-2V acetabular rim and superior lateral femoral head. The bony ring of the pelvis is intact. There is [facility] Other XR pelvis 1-2V total right hip arthroplasty. Degenerative changes are noted in the sacroiliac joints. No fracture [facility] Other XR pelvis 1-2V is [employer] Other XR pelvis 1-2V XR/XR pelvis 1-2V [facility] Other XR pelvis 1-2V Degenerative changes are noted in the left hip with findings suspicious for previous labral [facility] Other XR pelvis 1-2V pathology. [employer] Other XR pelvis 1-2V Postoperative change s are noted in the right hip with total right hip arthroplasty hardware. [facility] Other XR pelvis 1-2V Impression dictated by: Darren Yuen M.D.11/09/2022 5:01 PM [facility] Other XR pelvis 1-2V Transcribed By: COLIN 11/09/22 170 [facility] Other XR pelvis 1-2V Dictated By: Darren Yuen II, MD 11/09/221699 [facility] Other XR pelvis 1-2V 11/09/22 170 [employer] Other XR KNEE LT 4V or >on [...] There is chondrocalcinosis. Soft tissues: Unremarkable. IMPRESSION: Hchk-vd-gijfqvxk osteoarthritis as described above. Chondrocalcinosis. No acute fracture or dislocation. Electronically authenticated by: CHUCK JONES Date: 2022-11-05 11:19 Normal [facility] US CAROTID ART BILon 023 US [...] JONAS MCLEOD Date: 2022-09-26 10:58 Normal [facility] CBC AUTO DIFFon 12-22-2022 BASO # 0.0 103/ul Normal 0.0-0.1 [facility] Comment on above: Performed By: #### C BC #### [facility] [address] [place] [address] Dr. Alexis Brink Basophils/100 WBC (Bld) 0.7 % Normal 0.2-2.0 [facility] Comment on above: Performed By: #### C BC #### [facility] [address] [place] [address] Dr. Alexis Brink EO # 0.3 103/ul Normal 0.0-0.7 [facility] Comment on above: Performed By: #### C BC #### [facility] [address] [place] [address] Dr. Alexis Brink Eosinophils/100 WBC (Bld) 6.1 % Normal 0.9-7.0 [facility] Comment on above: Performed By: #### C BC #### [facility] [address] [place] [address] Dr. Alexis Brink Erythrocyte distribution width (RBC) [Ratio] 12.1 % Normal 11.0-15.0 [facility] Comment on above: Performed By: #### C BC #### [facility] [address] [place] [address] Dr. Alexis Brink Hematocrit (Bld) [Volume fraction] 44.2 % Normal 42.0-54.0 [facility] Comment on above: Performed By: #### C BC #### [facility] [address] [place] [address] Dr. Alexis Brink Hemoglobin (Bld) [Mass/Vol] 14.9 g/dL Normal 14.0-18.0 [facility] Comment on above: Performed By: #### C BC #### [facility] [address] [place] [address] Dr. Alexis Brink IG # 0.01 10e3/ul Normal 0.00-0.03 [facility] Comment on above: Performed By: #### C BC #### [facility] [address] [place] [address] Dr. Alexis Brink IG % 0.2 % Normal 0.0-0.5 [facility] Comment on above: Performed By: #### C BC #### [facility] [address] [place] [address] Dr. Alexis Brink LYMPH # 1.2 103/ul Normal 1.2-3.8 [facility] Comment on above: Performed By: #### C BC #### [facility] [address] [place] [address] Dr. Alexis Brink Lymphocytes/100 WBC (Bld) 21.3 % Normal 20.5-60.0 [facility] Comment on above: Performed By: #### C BC #### [facility] [address] [place] [address] Dr. Alexis Brink MANUAL DIFF REQ NO Normal [facility] Comment on above: Performed By: #### C BC #### [facility] [address] [place] [address] Dr. Alexis Brink MCH (RBC) [Entitic mass] 30.7 pg Normal 25.9-34.0 [facility] Comment on above: Performed By: #### C BC #### [facility] [address] [place] [address] Dr. Alexis Brink MCHC (RBC) [Mass/Vol] 33.7 g/dL Normal 29.9-35.2 [facility] Comment on above: Performed By: #### C BC #### [facility] [address] [place] [address] Dr. Alexis Brink MCV (RBC) [Entitic vol] 91.1 fL Normal 80.0-94.0 [facility] Comment on above: Performed By: #### C BC #### [facility] [address] [place] [address] Dr. Alexis Brink MONO # 0.5 103/ul Normal 0.3-0.8 [facility] Comment on above: Performed By: #### C BC #### [facility] [address] [place] [address] Dr. Alexis Brink Monocytes/100 WBC (Bld) 8.5 % Normal 1.7-12.[address] [facility] Comment on above: Performed By: #### C BC #### [facility] [address] [address] [address] Alexis Brink NEUT # 3.5 103/ul Normal 1.4-6.5 [facility] Comment on above: Performed By: #### C BC #### [facility] [address] [place] [address] [address] Alexis Brink Neutrophils/100 WBC (Bld) 63.2 % Normal 43.0-75.0 [facility] Comment on above: Performed By: #### C BC #### [facility] [address] [place] [address] Dr. Alexis Brink Platelet mean volume (Bld) [Entitic vol] 10.0 fL Normal 9.5-13.5 [facility] Comment on above: Performed By: #### C BC #### [facility] [address] [place] [address] Dr. Alexis Brink PLT 120 103/ul Critically low 150-[address] [facility] Comment on above: Performed By: #### C BC #### [facility] [address] [place] [address] [address] Alexis Brink RBC 4.85 106/ul Normal 4.70-6.10 [facility] Comment on above: Performed By: #### C BC #### [facility] [address] [place] [address] Dr. Alexis Brink WBC 5.6 103/ul Normal 4.0-11.0 [facility] Comment on above: Performed By: #### C BC #### [facility] [address] [place] [address] Dr. Alexis Brink Covid-19 PCR ([facility]on 07-21 SARS-CoV-2 (COVID-19) RNA RICKY+probe Ql (Unsp spec) Not detected Normal NOT DETECTED [facility] Comment on above: Result Comment: This test is not yet approved or cleared by the [place] FDA. When there are no FDA-approved or cleared tests available, and other criteria are met, FDA can make tests available under an emergency access mechanism called an Emergency Use Authorization (EUA). The EUA for this test is supported by the Fusing Machine Operator of Health and Human Service's (HHS's) declaration [...] with SARS-CoV-2. Performed By: #### C VDTB ####[facility] [address] [place], [place] [address]Dr. Alexis Brink INFLUENZA A AND B AGon 08-10 [facility] SEE BELOW Normal [facility] Comment on above: Result Comment: Nega tive for Flu A protein angiten. Infection due to Flu A cannot be ruled out. Flu A angiten in the sample may be below the detection limit of the test. Performed By: #### I NFLUAB ####[facility] [address] [place], [place] [address]Dr. Alexis Brink INFLUBNEGH SEE BELOW Normal [facility] Comment on above: Result Comment: Nega tive for Flu B protein antigen. Infection due to Flu B cannot be ruled out. Flu B antigen in the sample may be below the detection limit of the test. Performed By: #### I NFLUAB ####[facility] [address] [place], [place] [address]Dr. Alexis Brink INFLUENZA A AG Negative Normal NEGATIVE SEE COMMENT [facility] Comment on above: Performed By: #### I NFLUAB ####[facility] [address] [place], [place] [address]Dr. Alexis Brink INFLUENZA B AG Negative Normal NEGATIVE SEE COMMENT [facility] Comment on above: Performed By: #### I NFLUAB ####[facility] [address] [place], [place] [address]Dr. Alexis Brink INTERNAL CONTROLS Within Normal Limits Normal Wi thin Normal Limits [facility] Comment on above: Performed By: #### I NFLUAB ####[facility] [address] [place] [address]Dr. Alexis Brink PROF CHEM 8 (BAS METB)on Anion gap [Moles/Vol] 11.4 mmol/L Normal Th e [facility] Comment on above: Performed By: #### B NARA, HSTROPN #### [facility] [address] [place] [address] [address] Alexis Brink Calcium [Mass/Vol] 8.9 mg/dL Normal 8.5-10.1 [facility] Comment on above: Performed By: #### B NARA, HSTROPN #### [facility] [address] [place] [address] [address] Alexis Brink Chloride [Moles/Vol] 102 mmol/L Normal 98-107 [facility] Comment on above: Performed By: #### B NARA, HSTROPN #### [facility] [address] [place] [address] [address] Alexis Brink CO2 [Moles/Vol] 28.8 mmol/L Normal 21.0-32.0 [facility] Comment on above: Performed By: #### B MP, HSTROPN #### [facility] [address] [address] [address] Alexis Brink Creatinine [Mass/Vol] 1.35 mg/dL Critically high 0.70-1.30 [facility] Comment on above: Performed By: #### B MP, HSTROPN #### [facility] [address] [address] [address] Alexis Brink EGFR-AF DANISH >60 Normal >=60 [facility] Comment on above: Performed By: #### B MP, HSTROPN #### [facility] [address] [address] [address] Alexis Brink EGFR-NON AF DANISH 51 mL/min/1.73m2 Critically low >=60 [facility] Comment on above: Performed By: #### B MP, HSTROPN #### [facility] [address] [address] [address] Alexis Brink Glucose [Mass/Vol] 109 mg/dL Critically high 74-[address] [facility] Comment on above: Performed By: #### B MP, HSTROPN #### [facility] [address] [address] [address] Alexis Brink Potassium [Moles/Vol] 4.2 mmol/L Normal 3.5-5.1 [facility] Comment on above: Performed By: #### B MP, HSTROPN #### [facility] [address] [address] [address] Alexis Brink Sodium [Moles/Vol] 138 mmol/L Normal 136-145 [facility] Comment on above: Performed By: #### B MP, HSTROPN #### [facility] [address] [place] [address] [address] Alexis Brink Urea nitrogen [Mass/Vol] 18.0 mg/dL Normal 7.0-18.0 [facility] Comment on above: Performed By: #### B MP, HSTROPN #### [facility] [address] [place] [address] Dr. Alexis Brink Urea nitrogen/Creatinine [Mass ratio] 13.3 mg/mg Normal [facility] Comment on above: Performed By: #### B MP, HSTROPN #### [facility] [address] [place] [address] Dr. Alexis Brink TROPONIN, HIGH SENSITIVITYon 08-10-2022 HSTROP 22.2 pg/mL Normal 4.0-76.1 [facility] Comment on above: Result Comment: CUT- OFF POINTS HAVE BEEN ESTABLISHED BASED ON THE FOURTH UNIVERSAL DEFINITIONS OF MYOCARDIAL INFARCTION. THE UPPER REFERENCE LIMIT (URL) OF TROPONIN, DEFINED THE 99TH PERCENTILE OF cTnI DISTRIBUTION IN A REFERENCE POPULATION, HAS BEEN CONFIRMED THE DECISION THRESHOLD FOR IA DIAGNOSIS. Performed By: #### B MP, HSTROPN #### [facility] [address] [place] [address] Dr. Alexis Brink XR CHEST 1 Von [...] by: RADHA UNDERWOOD Date: 2022-08-10 16:07 Normal [facility] CBC AUTO DIFFon 02-09-2022 BASO # 0.0 103/ul Normal 0.0-0.1 [facility] Comment on above: Performed By: #### C BC #### [facility] [address] [place] [address] Dr. Alexis Brink Basophils/100 WBC (Bld) 0.6 % Normal 0.2-2.0 [facility] Comment on above: Performed By: #### C BC #### [facility] [address] [address] [address] Alexis Brink EO # 0.5 103/ul Normal 0.0-0.7 [facility] Comment on above: Performed By: #### C BC #### [facility] [address] [address] [address] Alexis Brink Eosinophils/100 WBC (Bld) 7.2 % Critically high 0.9-7.0 [facility] Comment on above: Performed By: #### C BC #### [facility] [address] [address] [address] Alexis Brink Erythrocyte distribution width (RBC) [Ratio] 12.4 % Normal 11.0-15.0 [facility] Comment on above: Performed By: #### C BC #### [facility] [address] [place] [address] Dr. Alexis Brink Hematocrit (Bld) [Volume fraction] 45.5 % Normal 42.0-54.0 [facility] Comment on above: Performed By: #### C BC #### [facility] [address] [place] [address] Dr. Alexis Brink Hemoglobin (Bld) [Mass/Vol] 15.4 g/dL Normal 14.0-18.0 [facility] Comment on above: Performed By: #### C BC #### [facility] [address] [place] [address] Dr. Alexis Brink IG # 0.02 10e3/ul Normal 0.00-0.03 [facility] Comment on above: Performed By: #### C BC #### [facility] [address] [place] [address] Dr. Alexis Brink IG % 0.3 % Normal 0.0-0.5 [facility] Comment on above: Performed By: #### C BC #### [facility] [address] [place] [address] Dr. Alexis Brink LYMPH # 1.3 103/ul Normal 1.2-3.8 [facility] Comment on above: Performed By: #### C BC #### [facility] [address] [place] [address] Dr. Alexis Brink Lymphocytes/100 WBC (Bld) 17.8 % Critically low 20.5-60.0 [facility] Comment on above: Performed By: #### C BC #### [facility] [address] [place] [address] Dr. Alexis Brink MANUAL DIFF REQ NO Normal [facility] Comment on above: Performed By: #### C BC #### [facility] [address] [place] [address] Dr. Alexis Brink MCH (RBC) [Entitic mass] 31.4 pg Normal 25.9-34.0 [facility] Comment on above: Performed By: #### C BC #### [facility] [address] [place] [address] Dr. Alexis Brink MCHC (RBC) [Mass/Vol] 33.8 g/dL Normal 29.9-35.2 [facility] Comment on above: Performed By: #### C BC #### [facility] [address] [address] [address] Alexis Brink MCV (RBC) [Entitic vol] 92.9 fL Normal 80.0-94.0 [facility] Comment on above: Performed By: #### C BC #### [facility] [address] [address] [address] Alexis Brink MONO # 0.7 103/ul Normal 0.3-0.8 [facility] Comment on above: Performed By: #### C BC #### [facility] [address] [address] [address] Alexis Brink Monocytes/100 WBC (Bld) 9.6 % Normal 1.7-12.0 [facility] Comment on above: Performed By: #### C BC #### [facility] [address] [place] [address] Dr. Alexis Brink NEUT # 4.6 103/ul Normal 1.4-6.5 [facility] Comment on above: Performed By: #### C BC #### [facility] [address] [place] [address] Dr. Alexis Brink Neutrophils/100 WBC (Bld) 64.5 % Normal 43.0-75.0 [facility] Comment on above: Performed By: #### C BC #### [facility] [address] [place] [address] Dr. Alexis Brink Platelet mean volume (Bld) [Entitic vol] 10.7 fL Normal 9.5-13.5 [facility] Comment on above: Performed By: #### C BC #### [facility] [address] [place] [address] Dr. Alexis Brink PLT 130 103/ul Critically low 150-[address] [facility] Comment on above: Performed By: #### C BC #### [facility] [address] [address] [address] Alexis Brink RBC 4.90 106/ul Normal 4.70-6.10 [facility] Comment on above: Performed By: #### C BC #### [facility] [address] [address] [address] Alexis Brink WBC 7.1 103/ul Normal 4.0-11.0 [facility] Comment on above: Performed By: #### C BC #### [facility] [address] [address] [address] Alexis Brink DIRECT LDLon 02-09-2022 Cholesterol in LDL [Mass/Vol] 144 mg/dL Normal [facility] Comment on above: Performed By: #### D LDL, BMP ####[facility] [address] [place], [place] [address]MzDr. Alexis Brink DLDL NORMAL SEE BELOW Normal [facility] Comment on above: Result Comment: <100 mg/dl OPTIMAL 100 - 129 mg/dl NEAR OR ABOVE OPTIMAL 130 - 159 mg/dl BORDERLINE HIGH 160 - 189 mg/dl HIGH >190 mg/dl VERY HIGH Performed By: #### D LDL, BMP ####[facility] [id number] [id number]. Alexis Brink PROF CHEM 8 (BAS METB)on Anion gap [Moles/Vol] 9.3 mmol/L Normal [facility] Comment on above: Performed By: #### D LDL, BMP #### [facility] [address] [address] [address] Alexis Brink Calcium [Mass/Vol] 8.7 mg/dL Normal 8.5-10.1 [facility] Comment on above: Performed By: #### D LDL, BMP #### [facility] [address] [address] [address] Alexis Brink Chloride [Moles/Vol] 103 mmol/L Normal 98-107 [facility] Comment on above: Performed By: #### D LDL, BMP #### [facility] [id number] Alexis Brink CO2 [Moles/Vol] 32.1 mmol/L Critically high 21.0-32.0 [facility] Comment on above: Performed By: #### D LDL, BMP #### [facility] [address] [address] [address] Alexis Brink Creatinine [Mass/Vol] 1.35 mg/dL Critically high 0.70-1.30 [facility] Comment on above: Performed By: #### D LDL, BMP #### [facility] [address] [address] [address] Alexis Brink EGFR-AF DANISH >60 Normal >=60 [facility] Comment on above: Performed By: #### D LDL, BMP #### [facility] [address] [address] [address] Alexis Brink EGFR-NON AF DANISH 51 mL/min/1.73m2 Critically low >=60 [facility] Comment on above: Performed By: #### D LDL, BMP #### [facility] [address] [address] [address] Alexis Brink Glucose [Mass/Vol] 90 mg/dL Normal 74-106 [facility] Comment on above: Performed By: #### D LDL, BMP #### [facility] [address] [address] [address] Alexis Brink Potassium [Moles/Vol] 4.4 mmol/L Normal 3.5-5.1 [facility] Comment on above: Performed By: #### D LDL, BMP #### [facility] [address] [place] [address] Dr. Alexis Brink Sodium [Moles/Vol] 140 mmol/L Normal 136-145 [facility] Comment on above: Performed By: #### D LDL, BMP #### [facility] [address] [address] [address] Alexis Brink Urea nitrogen [Mass/Vol] 16.0 mg/dL Normal 7.0-18.0 [facility] Comment on above: Performed By: #### D LDL, BMP #### [facility] [address] [place] [address] Dr. Alexis Brink Urea nitrogen/Creatinine [Mass ratio] 11.9 mg/mg Normal [facility] Comment on above: Performed By: #### D LDL, BMP #### [facility] [address] [place] [address] Dr. Alexis Brink UA RANDOMon 06-23-2022 Bilirubin Ql (U) Negative Normal NEGATIVE [facility] Comment on above: Performed By: #### U A #### [facility] [address] [place] [address] Dr. Alexis Brink Clarity (U) CLEAR Normal CLEAR [facility] Comment on above: Performed By: #### U A #### [facility] [address] [place] [address] Dr. Alexis Brink Color (U) YELLOW Normal YELLOW [facility] Comment on above: Performed By: #### U A #### [facility] [address] [place] [address] Dr. Alexis Brink Glucose Ql (U) Negative Normal NEGATIVE [facility] Comment on above: Performed By: #### U A #### [facility] [address] [place] [address] Dr. Alexis Brink Hemoglobin Ql (U) Negative Normal NEGATIVE [facility] Comment on above: Performed By: #### U A #### [facility] [address] [place] [address] Dr. Alexis Brink Ketones Ql (U) Negative Normal NEGATIVE [facility] Comment on above: Performed By: #### U A #### [facility] [address] [place] [address] Dr. Alexis Brink LEUKOCYTES Negative Normal NEGATIVE [facility] Comment on above: Performed By: #### U A #### [facility] [address] [place] [address] Dr. Alexis Brink Nitrite Ql (U) Negative Normal NEGATIVE [facility] Comment on above: Performed By: #### U A #### [facility] [address] [place] [address] Dr. Alexis Brink pH (U) 7.0 [pH] Normal 5-9 [facility] Comment on above: Performed By: #### U A #### [facility] [address] [place] [address] Dr. Alexis Brink SPEC GRAVITY 1.015 Normal 1.005-<=1.0 25 [facility] Comment on above: Performed By: #### U A #### [facility] [address] [address] [address] Alexis Brink UA PROTEIN Negative Normal NEGATIVE/ TRACE [facility] Comment on above: Performed By: #### U A #### [facility] [address] [id number] Alexis Brink Urobilinogen Qn (U) 1.0 {Kay'U}/dL Normal 0.2 - 1. 0 [facility] Comment on above: Performed By: #### U A #### [facility] [address] [place], [place] [address] Dr. Alexis Brink XR CHEST 2 Von [...] by: LYDIA HAWLEY Date: 2021-12-06 15:42 Normal [facility] Nonvisit Note - PTon 018 Nonvisit Note - PT Cert letter refaxed for signature this date - third and final attempt. Normal [facility] Nonvisit Note - PTon 018 Nonvisit Note - PT Cert letter refaxed to Dr Gooden's office. Second attempt. Normal [facility] Coding Summary.on 01-25-2018 Coding Summary. CODING DATE: 01/25/2018 FINAL [facility] STATUS: PAYOR: Medicare ADMIT DX: [...] [place] Date Saved: 01/25/2018 10:54 am Normal [facility] Coding Summary. CODING DATE: 01/25/2018 [facility] STATUS: PAYOR: Medicare ADMIT DX: [...] [place] Date Saved: 01/25/2018 10:54 am Normal [facility] SURGICAL PATHOLOGYon 05-15-2 018 SURGICAL PATHOLOGY [facility] [id number] Physician: CANDELARIO GOODEN MD FINAL DIAGNOSISRight hip, [...] to 8.5 x 8.5 x 1.8 cm. Case Finishing Machine Adjuster sectionsare submitted as follows: A1 soft tissue, A2 bone submitted afterdecalcification. KAUSHIK/lachelle 01/01/2018 Gross examination performed at [facility], [address] [place], [place] [id number] of Report: 01/07/2018Date of Procedure: 01/01/2018Date of Receipt: 01/01/2018Submitted by: CANDELARIO GOODEN MDLocation: [id number] interpretation performed at [facility], [address] [place] [id number]. Normal [facility] Comment on above: Performed By: #### S ####See report for performing lab information. Vital Signs Date Time Vital Sign Value Performing Clinician Facility 04-03-2025 09:52-0400 Body height 167.64 cm [employer] DO Work Phone: [facility] 04-03-2025 09:52-0400 Body mass index (BMI) [Ratio] 29.9 kg/m2 Cecilio Ball DO Work Phone: [facility] 04-03-2025 09:52-0400 Body weight 84.02 kg Cecilio Ball DO Work Phone: [facility] 04-03-2025 09:52-0400 Diastolic blood pressure 71 mm[Hg] Cecilio Ball DO Work Phone: [facility] 04-03-2025 09:52-0400 Heart rate 70 /min Cecilio Ball DO Work Phone: [facility] 04-03-2025 09:52-0400 Respiratory rate 16 /min Cecilio Ball DO Work Phone: [facility] 04-03-2025 09:52-0400 Systolic blood pressure 158 mm[Hg] Cecilio Ball DO Work Phone: [facility] 03-27-2025 13:30-0400 Body height 167.64 cm Cecilio Ball DO Work Phone: [facility] 03-27-2025 13:30-0400 Body mass index (BMI) [Ratio] 30.2 kg/m2 Cecilio Ball DO Work Phone: [facility] 03-27-2025 13:30-0400 Body weight 84.99 kg Cecilio Ball DO Work Phone: [facility] 03-27-2025 13:30-0400 Diastolic blood pressure 72 mm[Hg] Cecilio Ball DO Work Phone: [facility] 03-27-2025 13:30-0400 Heart rate 80 /min Cecilio Ball DO Work Phone: [facility] 03-27-2025 13:30-0400 Respiratory rate 16 /min Cecilio Ball DO Work Phone: [facility] 03-27-2025 13:30-0400 Systolic blood pressure 158 mm[Hg] Cecilio Ball DO Work Phone: [facility] 02-11-2025 08:58-0400 Body height 167.64 cm Cecilio Ball DO Work Phone: [facility] 02-11-2025 08:58-0400 Body mass index (BMI) [Ratio] 28.4 kg/m2 Cecilio Ball DO Work Phone: [facility] 02-11-2025 08:58-0400 Body weight 79.94 kg Cecilio Ball DO Work Phone: [facility] 02-11-2025 08:58-0400 Diastolic blood pressure 71 mm[Hg] Cecilio Ball DO Work Phone: [facility] 02-11-2025 08:58-0400 Heart rate 71 /min Cecilio Ball DO Work Phone: [facility] 02-11-2025 08:58-0400 Respiratory rate 12 /min Cecilio Ball DO Work Phone: [facility] 02-11-2025 08:58-0400 SaO2% (BldA) [Mass fraction] 97 % Cecilio Ball DO Work Phone: [facility] 02-11-2025 08:58-0400 Systolic blood pressure 138 mm[Hg] Cecilio Ball DO Work Phone: [facility] 01-20-2025 10:50-0400 Body height 167.64 cm [facility] 01-20-2025 10:50-0400 Body mass index (BMI) [Ratio] 28.5 kg/m2 [facility] 01-20-2025 10:50-0400 Body weight 80.37 kg [facility] 01-20-2025 10:50-0400 Diastolic blood pressure 74 mm[Hg] [facility] 01-20-2025 10:50-0400 Heart rate 66 /min [facility] 01-20-2025 10:50-0400 Respiratory rate 16 /min [facility] 01-20-2025 10:50-0400 SaO2% (BldA) [Mass fraction] 95 % [facility] 01-20-2025 10:50-0400 Systolic blood pressure 134 mm[Hg] [facility] 12-09-2024 15:37-0400 Body height 167.64 cm [facility] 12-09-2024 15:37-0400 Body mass index (BMI) [Ratio] 28.9 kg/m2 [facility] 12-09-2024 15:37-0400 Body weight 81.36 kg [facility] 12-09-2024 15:37-0400 Diastolic blood pressure 74 mm[Hg] [facility] 12-09-2024 15:37-0400 Heart rate 75 /min [facility] 12-09-2024 15:37-0400 Respiratory rate 12 /min [facility] 12-09-2024 15:37-0400 SaO2% (BldA) [Mass fraction] 98 % [facility] 12-09-2024 15:37-0400 Systolic blood pressure 153 mm[Hg] [facility] 11-06-2024 09:02-0400 Body height 167.64 cm [facility] 11-06-2024 09:02-0400 Body mass index (BMI) [Ratio] 28.9 kg/m2 [facility] 11-06-2024 09:02-0400 Body weight 81.36 kg [facility] 11-06-2024 09:02-0400 Diastolic blood pressure 67 mm[Hg] [facility] 11-06-2024 09:02-0400 Heart rate 82 /min [facility] 11-06-2024 09:02-0400 Respiratory rate 24 /min [facility] 11-06-2024 09:02-0400 SaO2% (BldA) [Mass fraction] 98 % [facility] 11-06-2024 09:02-0400 Systolic blood pressure 130 mm[Hg] [facility] 10-01-2024 08:35-0500 Body height 167.64 cm [facility] 10-01-2024 08:35-0500 Body mass index (BMI) [Ratio] 28.5 kg/m2 [facility] 10-01-2024 08:35-0500 Body weight 80.34 kg [facility] 10-01-2024 08:35-0500 Diastolic blood pressure 74 mm[Hg] [facility] 10-01-2024 08:35-0500 Heart rate 67 /min [facility] 10-01-2024 08:35-0500 Respiratory rate 16 /min [facility] 10-01-2024 08:35-0500 Systolic blood pressure 155 mm[Hg] [facility] 05-28-2024 08:30-0400 Body height 167.64 cm [facility] 05-28-2024 08:30-0400 Body mass index (BMI) [Ratio] 27.1 kg/m2 [facility] 05-28-2024 08:30-0400 Body weight 76.31 kg [facility] 05-28-2024 08:30-0400 Diastolic blood pressure 89 mm[Hg] [facility] 05-28-2024 08:30-0400 Heart rate 61 /min [facility] 05-28-2024 08:30-0400 Respiratory rate 12 /min [facility] 05-28-2024 08:30-0400 Systolic blood pressure 139 mm[Hg] [facility] 01-22-2024 09:16-0400 Body height 167.64 cm [facility] 01-22-2024 09:16-0400 Body mass index (BMI) [Ratio] 29.3 kg/m2 [facility] 01-22-2024 09:16-0400 Body weight 82.55 kg [facility] 01-22-2024 09:16-0400 Diastolic blood pressure 72 mm[Hg] [facility] 01-22-2024 09:16-0400 Heart rate 64 /min [facility] 01-22-2024 09:16-0400 Respiratory rate 20 /min [facility] 01-22-2024 09:16-0400 Systolic blood pressure 131 mm[Hg] [facility] 09-28-2023 11:00-0500 Body height 167.64 cm Cecilio Ball Other [facility] Other 09-28-2023 11:00-0500 Body mass index (BMI) [Ratio] 30.24 kg/m2 Cecilio Ball Other [facility] Other 09-28-2023 11:00-0500 Body weight 85 kg Cecilio Ball Other [facility] Other 09-28-2023 11:00-0500 Respiratory rate 20 /min Cecilio Ball Other [facility] Other 09-28-2023 11:00-0500 SaO2% (BldA) [Mass fraction] 97 % Cecilio Ball Other [facility] Other 09-11-2023 10:45-0500 Body height 167.64 cm Cecilio Ball Other [facility] Other 09-11-2023 10:45-0500 Body mass index (BMI) [Ratio] 29.86 kg/m2 Cecilio Ball Other [facility] Other 09-11-2023 10:45-0500 Body temperature 97.5 [degF] Cecilio Ball Other [facility] Other 09-11-2023 10:45-0500 Body weight 83.92 kg Cecilio Ball Other [facility] Other 09-11-2023 10:45-0500 Diastolic blood pressure 81 mm[Hg] Cecilio Ball Other [facility] Other 09-11-2023 10:45-0500 Respiratory rate 20 /min Cecilio Ball Other [facility] Other 09-11-2023 10:45-0500 SaO2% (BldA) [Mass fraction] 98 % Cecilio Ball Other [facility] Other 09-11-2023 10:45-0500 Systolic blood pressure 161 mm[Hg] Cecilio Ball Other [facility] Other 08-01-2023 10:15-0500 Body height 167.64 cm Cecilio Ball Other [facility] Other 08-01-2023 10:15-0500 Body mass index (BMI) [Ratio] 29.86 kg/m2 Cecilio Ball Other [facility] Other 08-01-2023 10:15-0500 Body weight 83.92 kg Cecilio Ball Other [facility] Other 08-01-2023 10:15-0500 Diastolic blood pressure 79 mm[Hg] Cecilio Ball Other [facility] Other 08-01-2023 10:15-0500 Respiratory rate 20 /min Cecilio Ball Other [facility] Other 08-01-2023 10:15-0500 Systolic blood pressure 172 mm[Hg] Cecilio Ball Other [facility] Other 07-17-2023 10:15-0500 Body height 167.64 cm Cecilio Ball Other [facility] Other 07-17-2023 10:15-0500 Body mass index (BMI) [Ratio] 29.89 kg/m2 Cecilio Ball Other [facility] Other 07-17-2023 10:15-0500 Body weight 84.01 kg Cecilio Ball Other [facility] Other 07-17-2023 10:15-0500 Diastolic blood pressure 78 mm[Hg] Cecilio Ball Other [facility] Other 07-17-2023 10:15-0500 Respiratory rate 20 /min Cecilio Ball Other [facility] Other 07-17-2023 10:15-0500 Systolic blood pressure 172 mm[Hg] Cecilio Ball Other [facility] Other 07-10-2023 14:45-0500 Body height 167.64 cm Cecilio Ball Other [facility] Other 07-10-2023 14:45-0500 Body mass index (BMI) [Ratio] 29.47 kg/m2 Cecilio Ball Other [facility] Other 07-10-2023 14:45-0500 Body weight 82.83 kg Cecilio Ball Other [facility] Other 07-10-2023 14:45-0500 Diastolic blood pressure 80 mm[Hg] Cecilio Ball Other [facility] Other 07-10-2023 14:45-0500 Respiratory rate 20 /min Cecilio Ball Other [facility] Other 07-10-2023 14:45-0500 Systolic blood pressure 150 mm[Hg] Cecilio Ball Other [facility] Other 06-20-2023 08:30-0400 Body height 167.64 cm Cecilio Ball Other [facility] Other 06-20-2023 08:30-0400 Body mass index (BMI) [Ratio] 29.6 kg/m2 Cecilio Ball Other [facility] Other 06-20-2023 08:30-0400 Body weight 83.19 kg Cecilio Ball Other [facility] Other 06-20-2023 08:30-0400 Diastolic blood pressure 76 mm[Hg] Cecilio Ball Other [facility] Other 06-20-2023 08:30-0400 Respiratory rate 20 /min Cecilio Ball Other [facility] Other 06-20-2023 08:30-0400 Systolic blood pressure 157 mm[Hg] Cecilio Ball Other [facility] Other 05-30-2023 13:45-0400 Body height 167.64 cm Cecilio Ball Other [facility] Other 05-30-2023 13:45-0400 Body mass index (BMI) [Ratio] 28.95 kg/m2 Cecilio Ball Other [facility] Other 05-30-2023 13:45-0400 Body weight 81.38 kg Cecilio Ball Other [facility] Other 05-30-2023 13:45-0400 Diastolic blood pressure 78 mm[Hg] Cecilio Ball Other [facility] Other 05-30-2023 13:45-0400 Respiratory rate 16 /min Cecilio Ball Other [facility] Other 05-30-2023 13:45-0400 Systolic blood pressure 158 mm[Hg] Cceilio Ball Other [facility] Other 02-14-2023 08:30-0400 Body height 167.64 cm Cecilio Ball Other [facility] Other 02-14-2023 08:30-0400 Body mass index (BMI) [Ratio] 28.57 kg/m2 Cecilio Ball Other [facility] Other 02-14-2023 08:30-0400 Body weight 80.29 kg Cecilio Ball Other [facility] Other 02-14-2023 08:30-0400 Diastolic blood pressure 80 mm[Hg] Cecilio Ball Other [facility] Other 02-14-2023 08:30-0400 Respiratory rate 16 /min Cecilio Ball Other [facility] Other 02-14-2023 08:30-0400 Systolic blood pressure 135 mm[Hg] Cecilio Ball Other [facility] Other 02-01-2023 08:15-0400 Body height 167.64 cm Jose Enrique Landersisle II Other [facility] Other 02-01-2023 08:15-0400 Body mass index (BMI) [Ratio] 27.44 kg/m2 Jose Enrique Landersisle II Other [facility] Other 02-01-2023 08:15-0400 Body weight 77.11 kg Jose Enrique Benji II Other [facility] Other 12-11-2022 10:30-0400 Body height 167.64 cm Cecilio Ball Other [facility] Other 12-11-2022 10:30-0400 Body mass index (BMI) [Ratio] 28.66 kg/m2 Cecilio Ball Other [facility] Other 12-11-2022 10:30-0400 Body weight 80.56 kg Cecilio Ball Other [facility] Other 12-11-2022 10:30-0400 Diastolic blood pressure 76 mm[Hg] Cecilio Ball Other [facility] Other 12-11-2022 10:30-0400 Respiratory rate 12 /min Cecilio Ball Other [facility] Other 12-11-2022 10:30-0400 Systolic blood pressure 151 mm[Hg] Cecilio Ball Other [facility] Other 11-09-2022 16:00-0400 Body mass index (BMI) [Ratio] 29.21 kg/m2 Jose Enrique Landersisle II Other [facility] Other 11-09-2022 16:00-0400 Body weight 82.1 kg Jose Enrique Leblanc II Other [facility] Other 11-09-2022 10:30-0400 Body height 167.64 cm Cecilio Ball Other [facility] Other 11-09-2022 10:30-0400 Body mass index (BMI) [Ratio] 29.23 kg/m2 Cecilio Ball Other [facility] Other 11-09-2022 10:30-0400 Body weight 82.15 kg Cecilio Ball Other [facility] Other 11-09-2022 10:30-0400 Diastolic blood pressure 79 mm[Hg] Cecilio Ball Other [facility] Other 11-09-2022 10:30-0400 Respiratory rate 20 /min Cecilio Ball Other [facility] Other 11-09-2022 10:30-0400 Systolic blood pressure 152 mm[Hg] Cecilio Ball Other [facility] Other 10-12-2022 10:00-0500 Body height 167.64 cm Cecilio Ball Other [facility] Other 10-12-2022 10:00-0500 Body mass index (BMI) [Ratio] 29.24 kg/m2 Cecilio Ball Other [facility] Other 10-12-2022 10:00-0500 Body weight 82.19 kg Cecilio Ball Other [facility] Other 10-12-2022 10:00-0500 Diastolic blood pressure 70 mm[Hg] Cecilio Ball Other [facility] Other 10-12-2022 10:00-0500 Respiratory rate 12 /min Cecilio Benjamin Other [facility] Other 10-12-2022 10:00-0500 Systolic blood pressure 102 mm[Hg] Cecilio Benjamin Other [facility] Other Encounters Encounter Date Encounter Type Care Provider Facility Start: 04-27-2025 End: 04-27-2025 ambulatory [facility] Start: 04-03-2025 End: 04-03-2025 ambulatory Cecilio Ball DO Work Phone: [facility] Work Phone: Start: 04-03-2025 End: 04-03-2025 Patient encounter procedure Cecilio Benjamin DO -[facility] Work Phone: Start: 03-31-2025 End: 03-31-2025 ambulatory Cecilio Ball DO Work Phone: [facility] Work Phone: Start: 03-31-2025 End: 03-31-2025 Patient encounter procedure Faheem Sevilla MD -[facility] Work Phone: Start: 03-30-2025 End: 03-30-2025 ambulatory Maddie Villalobos MD Facility: [facility] Start: 03-27-2025 End: 03-27-2025 ambulatory Cecilio Ball DO Work Phone: [facility] Work Phone: Start: 03-27-2025 End: 03-27-2025 Patient encounter procedure Cecilio Ball DO -[facility] Work Phone: Start: 03-23-2025 Non-patient / Non-visit Zaira Wang MOLD REPAIRER -[facility] Work Phone: Start: 03-21-2025 Non-patient / Non-visit Mary Melchor PAC -[facility] Work Phone: Start: 02-18-2025 Non-patient / Non-visit Cecilio Arndt l DO -[facility] Work Phone: Start: 02-17-2025 End: 02-17-2025 ambulatory Cecilio Ball DO Work Phone: [facility] Work Phone: Start: 02-17-2025 End: 02-17-2025 Patient encounter procedure Faheem Sevilla MD -[facility] Work Phone: Start: 02-17-2025 End: 02-17-2025 Patient encounter procedure Faheem Sevilla MD -[facility] Start: 02-17-2025 End: 02-17-2025 ambulatory Cecilio Ball DO Work Phone: [facility] Work Phone: Start: 02-11-2025 End: 02-11-2025 ambulatory Cecilio Ball DO Work Phone: [facility] Work Phone: Start: 02-11-2025 End: 02-11-2025 Patient encounter procedure Cecilio Benjamin DO -[facility] Work Phone: Start: 01-29-2025 End: 01-29-2025 ambulatory [facility] Work Phone: Start: 01-29-2025 End: 01-29-2025 [facility] Work Phone: Start: 01-20-2025 End: 01-20-2025 ambulatory [facility] Work Phone: Start: 01-20-2025 End: 01-20-2025 Patient encounter procedure [facility] Work Phone: Start: 01-05-2025 End: 01-05-2025 ambulatory Maddie Villalobos MD Facility: [facility] Start: 12-09-2024 End: 12-09-2024 ambulatory [facility] Work Phone: Start: 12-09-2024 End: 12-09-2024 [facility] Start: 12-05-2024 Non-patient / Non-visit Replaced By [facility] [facility] Work Phone: Start: 11-17-2024 End: 11-17-2024 ambulatory Juarezus Antonellaautherlinda Salteritis Facility: [facility] Start: 11-06-2024 End: 11-06-2024 ambulatory [facility] Work Phone: Start: 11-06-2024 End: 11-06-2024 Patient encounter procedure [facility] Work Phone: Start: 10-01-2024 End: 10-01-2024 ambulatory [facility] Work Phone: Start: 10-01-2024 End: 10-01-2024 Patient encounter procedure [facility] Work Phone: Start: 08-18-2024 End: 08-18-2024 ambulatory Maddie Villalobos MD Facility: [facility] Start: 08-04-2024 End: 08-04-2024 ambulatory Maddie Villalobos MD Facility:[facility] Start: 07-14-2024 End: 07-14-2024 ambulatory Juarezus Wai Villalobos MD Facility:[facility] Start: 05-28-2024 End: 05-28-2024 ambulatory [facility] Work Phone: Start: 05-28-2024 End: 05-28-2024 [facility] Work [facility]: Start: 05-26-2024 End: 05-26-2024 ambulatory Andrius Kiphosea Villalobos MD Facility:[facility] Start: 01-22-2024 End: 01-22-2024 ambulatory [facility] Work Phone: Start: 01-22-2024 End: 01-22-2024 Patient encounter procedure [facility] Work Phone: Start: 10-30-2023 Non-patient / Non-visit Replaced By [facility] Work Phone: Start: 09-28-2023 End: 09-28-2023 ambulatory Cecilio Ball Other [facility] Other Start: 09-28-2023 Office outpatient vi sit 15 minutes Cecilio Ball [facility] Start: 09-28-2023 Telephone encounter Cecilio Ball [facility] Start: 09-21-2023 End: 09-21-2023 ambulatory Cecilio Ball Other [facility] Other Start: 09-21-2023 Telephone encounter Cecilio Ball [facility] Start: 09-11-2023 End: 09-11-2023 ambulatory Cecilio Ball Other [facility] Other Start: 09-11-2023 Office outpatient vi sit 15 minutes Cecilio Ball [facility] Start: 09-11-2023 Telephone encounter Cecilio Ball [facility] Start: 09-03-2023 End: 09-03-2023 ambulatory Cecilio Ball Other [facility] Other Start: 09-03-2023 Telephone encounter Cecilio Ball [facility] Start: 08-03-2023 End: 08-03-2023 ambulatory Cecilio Ball Other [facility] Other Start: 08-03-2023 Telephone encounter Cecilio Ball [facility] Start: 08-01-2023 End: 08-01-2023 ambulatory Cecilio Ball Other [facility] Other Start: 08-01-2023 Office outpatient vi sit 15 minutes Cecilio Brandon [facility] Start: 07-17-2023 End: 07-17-2023 ambulatory Cecilio Benjamin Other [facility] Other Start: 07-17-2023 Office outpatient vi sit 15 minutes Cecilio Ball [facility] Start: 07-10-2023 End: 07-10-2023 ambulatory Cecilio Benjamin Other [facility] Other Start: 07-10-2023 Office outpatient vi sit 15 minutes Cecilio Ball [facility] Start: 06-20-2023 End: 06-20-2023 ambulatory Cecilio Benjamin Other [facility] Other Start: 06-20-2023 Office outpatient vi sit 25 minutes Cecilio Ball [facility] Start: 06-15-2023 End: 06-15-2023 ambulatory Cecilio Benjamin Other [facility] Other Start: 06-15-2023 Telephone encounter Cecilio Benjamin [facility] Start: 05-30-2023 End: 05-30-2023 ambulatory Cecilio Benjamin Other [facility] Other Start: 05-30-2023 Office outpatient vi sit 15 minutes Cecilio Ball [facility] Start: 03-20-2023 Telephone encounter Delio Jaeger DO Work Phone: [facility] Comment on above: Follow Up Phone Call Start: 03-15-2023 End: 03-15-2023 ambulatory DELIO JAEGER Facility:[facility] Start: 02-27-2023 Orders Only Delio Marcos DO Work Phone: Procedures Comment on above: Pseudoclaudication s yndrome (Primary Dx); Lumbar radiculopathy Start: 02-26-2023 Telephone encounter Delio Jaeger DO Work Phone: [facility] Comment on above: Procedure Start: 02-19-2023 Telephone encounter Delio Jaeger DO Work Phone: [facility] Comment on above: Appointment Start: 02-14-2023 End: 02-14-2023 ambulatory Cecilio Brandon Other [facility] Other Start: 02-14-2023 Patient encounter procedure Cecilio Benjamin [facility] Start: 02-13-2023 End: 02-13-2023 ambulatory Cecilio Benjamin Other [facility] Other Start: 02-13-2023 Telephone encounter Cecilio Benjamin [facility] Start: 02-08-2023 End: 02-08-2023 ambulatory Cecilio Benjamin Other [facility] Other Start: 02-08-2023 Telephone encounter Cecilio Benjamin [facility] Start: 02-01-2023 End: 02-01-2023 ambulatory Jose Enrique Leblanc II Other [facility] Other Start: 02-01-2023 Office outpatient vi sit 25 minutes Jose Enrique Benji II [facility] Start: 12-11-2022 End: 12-11-2022 ambulatory Cecilio Benjamin Other [facility] Other Start: 12-11-2022 Office outpatient vi sit 15 minutes Cecilio Benjamin [facility] Start: 11-09-2022 End: 11-09-2022 Patient encounter procedure MD Jose Enrique Leblanc II Work Phone: [facility] Start: 11-09-2022 End: 11-09-2022 ambulatory MD Jose Enrique Leblanc II Work Phone: [facility] Work Phone: Start: 11-09-2022 Office outpatient ne w 45 minutes Jose Enrique Guerrerole II [facility] Start: 11-09-2022 Office outpatient vi sit 15 minutes Cecilio Benjamin [facility] Start: 11-05-2022 End: 11-05-[address] CECILIO BENJAMIN Facility:[facility] Start: 10-12-2022 End: 10-12-2022 ambulatory Cecilio Benjamin Other [facility] Other Start: 10-12-2022 Office outpatient vi sit 25 minutes Cecilio Benjamin [facility] Start: 09-27-2022 End: 09-27-2022 ambulatory Cecilio Benjamin Other [facility] Other Start: 09-27-2022 Telephone encounter Cecilio DENISE [facility] Start: 09-26-2022 End: 09-27-[address] CECILIO BENJAMIN Facility:[facility] Start: 08-25-2022 End: 08-25-2022 ambulatory Cecilio Benjamin Other [facility] Other Start: 08-25-2022 Telephone encounter Cecilio Benjamin [facility] Start: 08-10-2022 End: 08-10-[address] CECILIO BENJAMIN Facility:[facility] Start: 02-09-2022 End: 02-10-[address] CECILIO BENJAMIN Facility:[facility] Start: 12-06-2021 End: 12-07-[address] CECILIO BENJAMIN Facility:[facility] Start: 01-22-2018 End: 04-20-2018 Patient encounter [id number] AUGUSTINE BENJAMIN Facility:[facility] [...] of left wrist XR wrist LT 2V [facility] Start: 03-31-2025 XR Wrist - left 2 Views [facility] Start: 02-17-2025 Plain X-ray of left wrist XR wrist LT min 3V* [facility] Start: 02-17-2025 XR Wrist - left GE 3 Views [facility] Start: 01-22-2024 Patient referral [facility] Work Phone: Start: 04-20-2023 Influenza vaccination INFLUENZA (#1) [facility] Start: 10-01-2022 COVID-19 VACCINE (5 - Moderna series) COVID-19 VACCINE (5 - Moderna series) [facility] Start: 08-20-2022 ADVANCE DIRECTIVE DISCUSSION ADVANCE DIRECTIVE DISCUSSION [facility] Start: 08-20-2022 DEPRESSION ASSESSMENT DEPRESSION ASS ESSMENT [facility] Start: 09-19-2021 COVID-19 VACCINE (4 - Booster for Moderna series) COVID-19 VACCINE (4 - Booster for Moderna series) [facility] Start: 09-19-2021 COVID-19 VACCINE (4 - Moderna series) COVID-19 VACCINE (4 - Moderna series) [facility] Start: 01-02-2021 DIABETES SCREEN DIABETES SCREEN [facility] Start: 1991 SHINGRIX VACCINE (1 of 2) SHINGRIX VACCINE (1 of 2) [facility] Start: 1960 Urine microalbumin profile DTAP,TDAP,TD (1 - Tdap) [facility] Start: 1959 SPIROMETRY SPIROMETRY [facility] Start: 1947 PNEUMOCOCCAL: 65+ (1 - PCV) PNEUMOCOCCAL: 65+ (1 - PCV) [facility] Comprehensive metabo lic 2000 panel - Serum or Plasma [facility] Patient referral [facility] Work Phone: SPINE INTERVENTION PROCEDURE SPINE INTERVENTION PROCEDURE Procedures Routine Spinal stenosis, lumbar region with neurogenic claudication Lumbar radiculopathy, chronic Ordered: 02/19/2023 [facility] Work Phone: Comment on above: Ordered: 02/19/2023 XR Wrist - left GE [address] [facility] Immunizations Immunization Date Immunization Notes Care Provider Fa cility 05-28-2024 influenza, high dose seasonal, preservative-free [facility] 05-30-2023 COVID-19 Vaccine Moderna - Documentation Purposes Only Cecilio Benjamin Other [facility] 05-30-2023 influenza virus vaccine, unspecified formulation [facility] 05-30-2023 influenza, high dose seasonal, preservative-free Cecilio Benjamin Other [facility] Other 06-13-2022 influenza virus vaccine, split virus (incl. purified surface antigen) Cecilio Benjamin Other [facility] Other 06-13-2022 influenza virus vaccine, unspecified formulation [facility] 06-13-2022 influenza, high dose seasonal, preservative-free Jose Enrique Benji II Other [facility] Other 05-31-2022 COVID-19 Pfizer (bivalent) Jose Enrique Benji II Other [facility] 05-31-2022 COVID-19 Pfizer (Pediatric) Cecilio Benjamin Other [facility] 07-25-2021 COVID-19 Vaccine Moderna - Documentation Purposes Only Jose Enrique Benji II Other [facility] 05-03-2021 zoster vaccine recombinant Jose Enrique Harford II Other [facility] 05-03-2021 zoster vaccine, live Benjami n Ball Other [facility] 01-28-2021 zoster vaccine recombinant Jose Enrique Harford II Other [facility] 01-28-2021 zoster vaccine, live Benjami n Ball Other [facility] 10-25-2020 COVID-19 Vaccine Moderna - Documentation Purposes Only Jose Enrique Harford II Other [facility] 09-27-2020 COVID-19 Vaccine Moderna - Documentation Purposes Only Jose Enrique Harford II Other [facility] 05-24-2020 influenza virus vaccine, split virus (incl. purified surface antigen) Cecilio Benjamin Other [facility] Other 05-24-2020 influenza virus vaccine, unspecified formulation [facility] 01-03-2019 diphtheria, tetanus toxoids and acellular pertussis vaccine, unspecified formulation Cecilio Benjamin Other [facility] 12-25-2018 pneumococcal polysaccharide vaccine, 23 valent Jose Enrique Harford II Other [facility] 04-30-2018 influenza virus vaccine, split virus (incl. purified surface antigen) Cecilio Benjamin Other [facility] Other 04-30-2018 influenza virus vaccine, unspecified formulation [facility] 04-09-2017 influenza virus vaccine, split virus (incl. purified surface antigen) Cecilio Benjamin Other [facility] Other 04-09-2017 influenza virus vaccine, unspecified formulation [facility] 05-31-2016 zoster vaccine, live Jose Enrique Harford II Other [facility] 05-13-2016 influenza virus vaccine, split virus (incl. purified surface antigen) Cecilio Benjamin Other [facility] Other 05-13-2016 influenza virus vaccine, unspecified formulation [facility] 05-09-2015 influenza virus vaccine, split virus (incl. purified surface antigen) Cecilio Benjamin Other [facility] Other 05-09-2015 influenza virus vaccine, unspecified formulation [facility] 03-06-2015 pneumococcal conjuga te vaccine, 13 valent Jose Enrique Harford II Other [facility] 05-07-2014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
--- NOTE | 2025-05-06 11:01 | PM.CN ---
Consult Note: HPI Data of Consult Patient: known to practice within the last 3 years Requesting Physician: Erica Hope NP Primary Care Provider: Cecilio Benjamin DO Consult Narrative Reason for consult: low back pain Narrative: Ruperto Thorpe a pleasant 84 year old male presents for evaluation of chronic low back pain secondary to lumbar stenosis, lumbar ddd, and lumbar spondylosis. Pt has failed to benefit from > 6 weeks of HEP/PT, heat, ice, tylenol, nsaids. noting 50% improvement after bilateral L4-5 TFESI. utilizing nabumetone, tylenol prn with benefit. is not utilizing baclofen, felt drowsy. pain 0/10, increasing to 5/10 with activity, lifting, long periods of standing/walking. denies fall/injury. cc:: CC: Erica Hope NP Review of Systems ROS Musculoskeletal Reports: back pain; Denies: joint pain PFSH PFSH Medical History Low back pain ?M54.50 - Low back pain, unspecified (ICD-10) Heartburn ?R12 - Heartburn (ICD-10) Sleep apnea ?G47.30 - Sleep apnea, unspecified (ICD-10) COPD (chronic obstructive pulmonary disease) ?J44.9 - Chronic obstructive pulmonary disease, unspecified (ICD-10) Asthma ?J45.909 - Unspecified asthma, uncomplicated (ICD-10) Hypertension ?I10 - Essential (primary) hypertension (ICD-10) Surgical History H/O cervical spine surgery ?Z98.890 - Other specified postprocedural states (ICD-10) S/P tonsillectomy and adenoidectomy ?Z90.89 - Acquired absence of other organs (ICD-10) History of ankle surgery ?Z98.890 - Other specified postprocedural states (ICD-10) S/P cholecystectomy ?Z90.49 - Acquired absence of other specified parts of digestive tract (ICD-10) S/P total hip arthroplasty ?Z96.649 - Presence of unspecified artificial hip joint (ICD-10) History of surgery on upper extremity ?Z98.890 - Other specified postprocedural states (ICD-10) Social History Little interest or pleasure in doing things: not at all Feeling down, depressed, or hopeless: not at all Meds Home Medications and Allergies Home Medications ?Medication ?Instructions ?Recorded ?Confirmed ?Type amlodipine 2.5 mg tablet 2.5 mg PO DAILY 01/28/24 04/27/25 History clonazepam 0.5 mg tablet 0.5 mg PO DAILY 01/28/24 04/27/25 History escitalopram oxalate 10 mg tablet 10 mg PO DAILY 01/28/24 04/27/25 History (Lexapro) nabumetone 500 mg tablet 500 mg PO BID 01/28/24 04/27/25 History omeprazole 20 mg capsule,delayed 20 mg PO DAILY 01/28/24 04/27/25 History release tamsulosin 0.4 mg capsule (Flomax) 0.4 mg PO DAILY 01/28/24 04/27/25 History albuterol sulfate 2.5 mg/3 mL 2.5 mg inhalation Q4H PRN 12/05/24 04/27/25 History (0.083 %) solution for nebulization shortness of breath or wheezing fluticasone 250 mcg-salmeterol 50 1 inh inhalation BID 12/05/24 04/27/25 History mcg/dose blistr powdr for inhalation BLACK ELDERBERRY 03/30/25 History ascorbic acid (vitamin C) 1,000 mg 1 g PO DAILY 03/30/25 04/27/25 History tablet (Vitamin C) aspirin 81 mg tablet 81 mg PO DAILY 03/30/25 04/27/25 History baclofen 10 mg tablet 10 mg PO BEDTIME 03/30/25 04/27/25 History calcium phosphate,dibasic 77 tab PO DAILY 03/30/25 History mg-vitamin D3 400 unit tablet doxycycline hyclate 100 mg capsule 100 mg PO 03/30/25 History fexofenadine 180 mg tablet 180 mg PO 03/30/25 History montelukast 10 mg tablet 10 mg PO DAILY 03/30/25 04/27/25 History multivitamin 1 tab PO DAILY 03/30/25 03/30/25 History Allergies Allergy/AdvReac Type Severity Reaction Status Date / Time bacitracin AdvReac Mild Rash Verified 04/27/25 12:13 Exam Constitutional Documenting provider has reviewed patient's vital signs: yes Common normals: no apparent distress, oriented x3, healthy appearing, alert and well nourished General appearance: cooperative HENMT Common normals: normocephalic, hearing grossly normal bilaterally and moist oral mucous membranes Head and scalp: normocephalic Eye Common normals: PERRL Pupil: PERRL Neck & C-Spine Common normals: full ROM General: normal visual inspection Chest Common normals: inspection of chest normal Respiratory Common normals: normal respiratory effort, no retractions and no use of accessory muscles Back & Pelvis Lumbar spine/lower back: straight leg raise negative bilaterally; ROM not limited, no pain with ROM and no lumbar spinal tenderness Sacroiliac joints: SI joints normal Other: negative facet loading strength 5/5 in BLE sensation intact BLE increased low back pain with standing/walking improves with forward flexion and sitting Neuro Common normals: oriented x3 Sensorium/orientation: alert Psych Common normals: mental status grossly normal, thought process normal, cooperative, affect normal, speech normal and activity/motor behavior normal Speech: normal speech Thought process: normal thought process Results Additional Findings Additional findings: If on a controlled substance or opioids, I have checked an [place] report on this patient and there are no aberrancies noted in the prescribing history.??If on a controlled substance or opioid a drug screen was completed and reviewed within the last year, and if there has not been a drug screen completed we ordered one today to monitor higher risk, state monitored pain medication use. As part of providing excellent, safe, comprehensive care, the following was completed at our patient's visit: 1. A medication reconciliation and review to ensure accurate knowledge of current/active medications, including asking our patients to inform us about any nurl-bvw-jgbquxm medications or herbal remedies/nutritional supplements/alternative remedies. 2. A review to specifically ensure our patients have had annual screening for screening for depression, screening for tobacco use, and screening for unhealthy alcohol use. For concerning screenings had a discussion with the patient, provided patient education, and recommended follow-up with primary care provider when appropriate. If patient noted with a risk of falling, they received education on strength, gait, and balance training to prevent future risk of falling. Portions of this note may have been carried over from the previous visit and updated as appropriate. Please note this office utilizes paper charting in addition to the electronic medical record. A list of current medications, vitals, and PMH is available there as the clinical staff outside of myself do not have access to [employer] charting during the clinic day operations. As part of providing quality comprehensive care the current medications, vitals, and PMH were reviewed in the paper chart. Assessment and Plan Assessment and Plan (1) Lumbar stenosis with neurogenic claudication: (2) Lumbar spondylosis: (3) Sacroiliitis: Plan pain well controlled at this time, defer further workup. pt encouraged to pace himself with physical activity and take frequent breaks. pt declining PT at this time. pt will continue massage therapy independently. encouraged walker with long periods of walking/activity. f/u 3 months, sooner if needed
== END 2025-05-06 10:45 | disposition home or self-care (01) ==
LOC: PM 10:44
PROVIDERS: PCP Internal Medicine; Visit Provider Nurse Practitioner
DX: M48.062 Spinal stenosis, lumbar region with neurogenic claudication (principal); M47.816 Spondylosis without myelopathy or radiculopathy, lumbar region; M46.1 Sacroiliitis, not elsewhere classified
CPT/HCPCS: G0463

== ENCOUNTER 2025-08-05 11:01 | Outpatient (OUT) | payer MEDICARE, OTHER, SELFPAY ==
--- OUTSIDE RECORDS SUMMARY | 2025-07-30 08:40 | XMS_ITS | Encounter Summary ---
Author Organization [facility] Address [address] [place] [address] Care Team Providers Care Irrigator Gravity Flow Name Role Phone Cecilio Benjamin DO Primary Care Provider Reason for Visit * ReasonCommentsToenail Care Encounter Details DateTypeDepartmentCare Team (Latest Contact Info)Pcgiohsfqca51/11/2025 8:40 AM ESTOffice Visit [facility] [address] [facility] [address] [place] [address] Yasmany Daugherty DPM [address] [facility] [address] [place] [address] Xerosis cutis (Primary Dx); Pain due to onychomycosis of toenails of both feet Social History Tobacco UseTypesPacks/DayYears UsedDateSmoking Tobacco: NeverSmokeless Tobacco: Never Tobacco Cessation:Counseling Given: Yes Sex and Gender InformationValueDate RecordedSex Assigned at BirthNot on file Legal CbmWcdi2011/01/2022 7:36 PM EDTGender IdentityNot on fileSexual Orientation Not on filedocumented as of this encounter Last Filed Vital Signs Vital SignReadingTime TakenCommentsBlood Pressure--Pulse--Temperature-- Respiratory Uhzd814109/30/2024 8:57 AM ESTOxygen Saturation--Inhaled Oxygen Concentration--Tuukjd20.6 kg (180 lb)07/30/2025 8:57 AM VSQHcgrqs173.7 cm (5' 8 )07/30/2025 8:57 AM ESTBody [...] Partner Violence: Unknown (10/11/2023) Received from [facility] [place] [facility] Fear of Current [...] or drainage to feet. Patient to consider uhhr-euv-mawreut treatments for medication or use of urea cream and prescription today was offered for Lac-Hydrin cream. Yasmany Daugherty DPM [1] Not on File [2] Past Medical History: Diagnosis Date Hypertension [3] No current outpatient medications on file. documented in this encounter Plan of Treatment DateTypeDepartmentCare Team (Latest Contact Info)Rlxmnxejtqf71/19/2026 9:40 AM ESTProcedure Visit [facility] [address] [facility] [address] [place] [address] Yasmany Daugherty DPM [address] [address] documented as of this encounter Visit Diagnoses Diagnosis Xerosis cutis- Primary Other specified disease of sebaceous glands Pain due to onychomycosis of toenails of both feet documented in this encounter Care Teams Team MemberRelationshipSpecialtyStart DateEnd Date Cecilio Benjamin, [address] [place] [phone] PCP - GeneralInternal Fwatfycr80/11/25documented as of this encounter
--- OUTSIDE RECORDS SUMMARY | 2025-08-03 12:10 | XMS_ITS | Continuity of Care Document ---
Author Organization [facility] Address [address] [place] [address] Phone Care Team Providers Care [employer] Worker Name Role Phone Cecilio Benjamin DO Primary Care Provider [phone] Cecilio Benjamin DO Attending Provider Care Teams Patient Care Team Team Status: Active Member Role/Relationship Status Dates Cecilio Benjamin DO Primary Care Provider Active Visit Care Team Team Status: Inactive Member Role/Relationship Status Dates Cecilio Benjamin DO Primary Care Provider Active Start: May 13, 2025 End: May 13kaci Benjamin DOAttjed ProviderActiveStart: May 13, 2025 End: May 13, 2025 Visit Care Team Team Status: Inactive Member Role/Relationship Status Dates Cecilio Benjamin DO Primary Care Provider Active Start: July 01, 2025 End: July 01Rivas Sarah ProviderActiveStart: July 01, 2025 End: July 01, 2025 Patient Care Team Team Status: Inactive Member Role/Relationship Status Dates Cecilio Benjamin DO Primary Care Provider Active Start: August 03, 2025 End: August 03Rivas Sarah ProviderActiveStart: August 03, 2025 End: August 03, 2025 Chief Complaint and Reason for Visit Chief Complaint Admit Date 3 month f/u-HIGH RISK May 13 8:50am Rash July 01, 2025 3:05pm fatigue, shakiness August 03, 2025 3:36pm Reason for Visit Admit Date Aortic stenosis May 13, 2025 8:50am Benign prostatic hyperplasia with lower urinary tract symptoms May 13, 2025 8:50am Chronic bronchitis, simple April 8:50am Chronic kidney disease, stage 3a Septemb er 2024 8:50am Elevated cholesterol May 13 8:50am Generalized anxiety disorder April 212024 8:50am Hypertension May 13, 2025 8:50am IFG (impaired fasting glucose) May 13, 2025 8:50am Lumbar spondylolysis May 13 8:50am Nocturnal leg cramps May 13 8:50am Obstructive sleep apnea May 13, 2025 8:50am Intertriginous dermatitis associated wit h moisture July 01, 2025 3:05pm Irritant balanitis July 01, 2025 3:05pm Aortic stenosis August 03, 2025 3:36pm Benign prostatic hyperplasia with lower urinary tract symptoms August 03, 2025 3:36pm Chronic bronchitis, simple July 3:36pm Chronic kidney disease, stage 3a Decembe r 2024 3:36pm Elevated cholesterol August 03, 2025 3:36pm Generalized anxiety disorder August 032024 3:36pm Hypertension August 03, 2025 3:36pm IFG (impaired fasting glucose) August 03, 2025 3:36pm Lumbar spondylolysis August 03, 2025 3:36pm Nocturnal leg cramps August 03, 2025 3:36pm Obstructive sleep apnea August 03, 2 025 3:36pm Allergies, Adverse Reactions, Alerts Allergen Type Severity Reaction Last Updated Verified Status Xpmmmmv-LNR-FrB Reductase Inhibitor Allergy Unknown Unknown Reaction August 03, 2025 3:46pm Yes Active Social History Smoking Status Status Start Date End Date Date of Observa tion Never smoked tobacco (finding) January 22, 2024 9:53am Observation Status Observation Response Date of Response Legal Sex Male (finding) Sex Assigned At BirthMaleDecember 1939 Family History Relationship Condition Age at Onset Recorded Date/T niru father Unknown Problems Active Problems Problem Diagnosis/Recorded Date Onset Date Status C omments Irritant balanitis July 01, 2025 3:28pm Unknown A ctive Obstructive sleep apneaFebruary 2023 3:58pmUnknownActiveGeneralized anxiety disorderFebruary 2023 3:58pmUnknownActiveNocturnal leg crampsJune 2024 9:13amUnknownActiveScreening PSA (prostate specific antigen)February 11, 2025 9:45pmUnknownActivePSA: 2.83 - 02/2021, 3.81 - 7Spondylosis of cervical region without myelopathy or radiculopathyFebruary 2023 3:58pm UnknownActivePrimary osteoarthritis of left shoulderFebruary 2023 3:58pm UnknownActiveNonfamilial nocturnal leg crampsApril 2024 8:33pmUnknown ActiveChronic bronchitis, simpleFebruary 2023 3:58pmUnknownActivePFT: FEV1/FVC 57%, FEV1 62%, TLC 86%, RV/TLC 41%, DLCO 79% - 03/2025Dizziness on standingJune 2024 9:10amUnknownActiveElevated cholesterolFebruary 2023 7:15amUnknownActiveAortic stenosisJune 2024 9:31pmUnknownActiveEcho: LVEF 62%, IBETH, normal RV size/function, RVSP 31, ESTEPHANIE 2.01cm, velocity 297, gradient 11/07 - 08/2021,Echo: LVEF 65%, normal RV size/function, RVSP 33, ESTEPHANIE 1.2cm, velocity 2.34m/s, gradient 09/08 - 02/2025Ulnar neuropathy at elbow of left upper extremityFebruary 2023 3:58pmUnknownActiveFracture of right distal radiusJun2024 8:13amUnknownActiveDistal radius fracture, leftJune 2024 7:17pmUnknownActiveIFG (impaired fasting glucose)May 28, 2024 8:16amUnknownActiveCellulitis of leg without foot, rightAugust 2024 12:57pm UnknownActiveWeight lossOctober 2023 7:53pmUnknownActiveOther fractures of lower end of right radius, initial encounter for closed fractureJune 2024 8:13amUnknownActiveOther fractures of lower end of left radius, initial encounter for closed fractureJune 2024 8:26amUnknownActiveBenign prostatic hyperplasia with lower urinary tract symptomsFebruary 2023 3:58pmUnknown ActiveSecond degree burn of right lower legAugust 2024 12:57pmUnknownActive Left wrist painJune 2024 10:29amUnknownActiveChronic kidney disease, stage 3aFebruary 2023 3:58pmUnknownActiveIntertriginous dermatitis associated with moistureNovember 2024 3:28pmUnknownActiveAcute exacerbation of chronic obstructive airways diseaseJune 2024 10:42amUnknownActiveLumbar spondylolysisFebruary 2023 3:58pmUnknownActiveAllergic rhinitisAugust 2024 9:24amUnknownActiveHypertensionFebruary 2023 7:18amUnknown ActiveCarotid US: < 50% B/L - /ontusion of left wristJune 2024 10:43amUnknownActiveInactive/Resolved Problems Problem Diagnosis/Recorded Date Onset Date Status C omments Chronic obstructive pulmonar y disease with (acute) exacerbation October 17, 2023 3:58pm Unknown Resolved Acute bronchitis due to other specified organismsFebruary 2023 3:58pm UnknownResolved Medications Medication Status Dose Units Route Directions Qty Days Refills S tart Date Stop Date End Date Reason(s) Instructions Adherence Albuterol Sulfate 90 mcg/actuation HFA aerosol inhaler Discontinued 2 PUFF INHALATION EVERY 4-6 HOURS as needed for shortness of breath or wheezing 8.5 0February 2023 12:00amMarch 2023 5:55pmTamsulosin 0.4 mg capsule Discontinued0.ROUTE.MRRIHPX311Ejp 2023 11:45amFebruary 2024 9:10am TAKE 1 CAPSULE DAILYEscitalopram Oxalate 10 mg tabletDiscontinued0.ROUTE.COMPLEX 2023 12:32pmFebruary 2024 9:10amTAKE 1 TABLET AT BEDTIME Nabumetone 500 mg tabletDiscontinued0.ROUTE.RILTVCW3462Dtsxyb2023 12:32pm October 01, 2024 9:10amTAKE 1 TABLET TWICE A DAYClonazepam 0.5 mg tablet Discontinued0.3MJYJDvqwh84706Lknglm 2023 12:33pmFebruary 2024 9:10am Generalized anxiety disorder Generalized anxiety disorderHydrocortisone (Proctosol Hc) 2.5 % cream with perineal dmpvilduxeRnfehnjozmgb9LBSGNCYH7 to 2 times per day as needed for amkdkuqgtiz16654Bvmwqoap 2023 12:00amFebruary 2024 9:11amFluticasone Propion-Salmeterol 113-14 mcg/actuation aerosol powdr breath activated Yhrwtonvwmdm8BULLTHECBVVMERwikd 12 vilqp1670Igkzp 2024 11:00pmMarch 2024 3:28pmFluticasone Propion-Salmeterol (Advair Hfa) 115-21 mcg/actuation HFA aerosol xxjramrOvxmejocwhjt1HOHDAQMDSKYJADAtngs 12 myoek00732Wdxyh 2024 11:00pmJune 2024 10:22amAlbuterol Sulfate 2.5 mg /3 mL (0.083 %) solution for nebulizationActive2.5MGINHALATIONEVERY 4-6 HOURS as needed for shortness of breath or thjfotid670714Oggzh 2024 4:27pmSimple chronic bronchitis Simple chronic bronchitisComplies with drug therapyInhalational Spacing Device (Aerochamber Mini) spacerDiscontinued0.ROUTE.ISADSOPBF46Tbbty 2024 11:00pm December 04, 2024 9:16amSimple chronic bronchitis Simple chronic bronchitisAs directedInhalational Spacing Device spacerActive0 .Fceef47Oroth 2024 11:00pmSimple chronic bronchitis Simple chronic bronchitisAs directedFexofenadine (Allergy Relief (Fexofenadine)) 180 mg zrfgwaQpqajphlyyie693FTIOAxhbq53029Rerq 2024 8:42amAugust 2024 9:18amMontelukast 10 mg uwuzadWjlhac90YZRZXcgkq at xjbhcml11313Ogbd 2024 8:43amComplies with drug therapyTiotropium-Olodaterol (Stiolto Respimat) 2.5-2.5 mcg/actuation zwwaPijsncyjxnsh4DLCIEFWKUELPZLWqwbv7569Mxxqga 2024 11:00pmSeptember 2024 8:10amClonazepam 0.5 mg tabletActive0.8IXVTCwrtd9524 1August 2024 4:52pmGeneralized anxiety disorder Generalized anxiety disorderComplies with drug therapyFluticasone Propion- Salmeterol (Advair Diskus) 500-50 mcg/dose blister with gmsonhEvjchpqgzkym7LHW INHALATIONEvery 12 tlbnz37823Hwnclfi 2024 11:00pmOctober 2024 4:06pm Umeclidinium (Incruse Ellipta) 62.5 mcg/actuation blister with ehelirDarwkw9ZQN INHALATIONDaily at apbmktn78104Zkitftf 2024 11:00pmComplies with drug therapyFluticasone Propion-Salmeterol (Advair Hfa) 115-21 mcg/actuation HFA aerosol creeozfZpzvfrscwnbx0LEOSKYSUVMNQOLDecha 12 vuapk917335Lphfhai 2024 11:00pmDecember 2024 4:20pmAcetaminophen 325 mg zyuobsStmzga020FETBGcbls 8 hours as neededFebruary 2023 12:00am2 tablets by mouth orally every 8 hours PRNComplies with drug therapyAmlodipine 2.5 mg tabletDiscontinued2.5MGPO DailyFebruary 2023 12:00amMarch 2023 5:55pmClobetasol 0.05 % ointment Ugetym8QCFWFKTCLTLXQZevhf dailyFebruary 2023 12:00amComplies with drug therapyClonazepam 0.5 mg tabletDiscontinued0.5MGPODaily at bedtimeFebruary 2023 12:00amMarch 2023 5:55pmDoxycycline Hyclate 100 mg capsuleDiscontinued 100MGPOTwice dailyFebruary 2023 12:00amMarch 2023 10:06amEscitalopram Oxalate 10 mg nxwesfVvxtzssmmayw08LFIDSidha at bedtimeFebruary 2023 12:00amMarch 2023 5:55pmMupirocin 2 % ecgtmuheBriphptdysae2DYJHAVONORNZO Twice dailyFebruary 2023 12:00amJune 2024 7:57amNabumetone 500 mg ftuqhkPjouzufxmkhu789PITGUjzym dailyFebruary 2023 12:00amMarch 2023 5:55pmOmeprazole 20 mg capsule,delayed release(DR/EC)Nyxauqliqtbh17YWEOWjqmk October 17, 2023 12:00amMarc2023 5:55pmSilver Sulfadiazine 1 % cream Obotzunupeyg1OAWZWEIZONBLUXjrlnRewdyigj 2023 12:00amJune 2024 7:57am Tamsulosin 0.4 mg capsuleDiscontinued0.4MGPODailyFebruary 2023 12:00am October 19, 2023 5:55pmTriamcinolone Acetonide 0.1 % iixrlrvyKsemzxsakjxt7ENHWUP TOPICALTwice dailyFebruary 2023 12:00amMarc2023 5:55pmAmlodipine 2.5 mg tabletDiscontinued2.2IAQMCoygz84162Nxqfo 2023 10:05amFebruary 2024 9:10amClonazepam 0.5 mg tabletDiscontinued0.5MGPODaily at fudivae49454Tlaph 2023 10:06ugust 2023 12:34pmGeneralized anxiety disorder Generalized anxiety disorderEscitalopram Oxalate 10 mg tuskfvOnilmghwnnae31MTVB Daily at lnzdqcg41043Kxboy 2023 10:072023 12:34pmNabumetone 500 mg badsjrTnvsbmuwllga845ATHTCfcfh pmqad301154Ophno 2023 10:072023 12:34pmOmeprazole 20 mg capsule,delayed release(DR/EC)Wjqfgfxrlgzi07 FNIKDfawa40052Wxyty 2023 10:07amFebruary 2024 9:10amTamsulosin 0.4 mg capsuleDiscontinued0.8GNIOFhjts75751Qwwan 2023 10:08amMay 2023 11:45amTriamcinolone Acetonide 0.1 % ifzrhbxnLyrzuthmzhrg8YJLPDXUTBXKECWjkmu ztbug76221Iacja 2023 10:08amJune 2024 7:57amAlbuterol Sulfate 90 mcg/actuation HFA aerosol gzeklozCrgckyloesji1ENPIUAMGZEACXVOVTPC 4-6 HOURS as needed for shortness of breath or wheezing8.5903[facility] 2023 10:09amJune 2023 8:29amAlbuterol Sulfate 2.5 mg /3 mL (0.083 %) solution for nebulization Discontinued2.5MGINHALATIONEVERY 4-6 HOURS as needed for shortness of breath or oyitlzbm529422Vnshb 2023 12:00amMarch 2023 12:20pmSimple chronic bronchitis Simple chronic bronchitisFluticasone Propion-Salmeterol (Wixela Inhub) 250-50 mcg/dose blister with oeobdpJccwcgwuetus6UFFFVYKVEUITBZhdbg jboee682740Llzf 3rd, 2024 11:00pmMarch 2024 3:41pmAlbuterol Sulfate 90 mcg/actuation HFA aerosol vntjbdlPmmayj3RBZSWFVQRYSMZRROMSH 4-6 HOURS as needed for shortness of breath or wheezing8.5305June 2023 8:28amComplies with drug therapyAlbuterol Sulfate 2.5 mg /3 mL (0.083 %) solution for nebulizationDiscontinued2.5MG INHALATIONEVERY 4-6 HOURS as needed for shortness of breath or xsacqrtw115695 October 30, 2023 12:20pmMarch 2024 10:42amSimple chronic bronchitis Simple chronic bronchitisMupirocin 2 % bizvakhdKsolvvguqlev8SMJLSXSLSIDBXPjcbm dailyJune 2024 11:00pmAugust 2024 12:49pmTriamcinolone Acetonide 0.05 % lxjcjzihXtecwh4EWGNYYDLDUJJNZhckiPhjr 2024 11:00pmComplies with drug therapyDoxycycline Hyclate 100 mg ysdwuwaCpqgaiyftnrp501RXPNYiihc milxc804Oeevo 2024 3:30pmJune 2024 7:56amFluticasone Propionate 250 mcg/actuation blister with rsbxtbGwfoywkzugjs1EBMQCNJRGCOLLXkirw 12 msddg87150Twoh 2024 11:00pmJune 2024 10:31amMontelukast 10 mg ilzslyRgatxmxiefau01DZOCHxxai at lwieucr31234Srhd 2nd, 2025 11:00pmJuly 2024 8:43amFexofenadine (Allergy Relief (Fexofenadine)) 180 mg zaperkHuuppviojelp376NQJONlmqz92575Ajgj 2024 11:00pmJuly 2024 8:43amFluticasone Propion-Salmeterol (Advair Diskus) 250- 50 mcg/dose blister with oencwvIrjvasvgavxb8RPEODEBMCHNBDBnjkg 12 uioky14056Dnkg 2024 11:00pmAugust 2024 12:51pmTiotropium-Olodaterol (Stiolto Respimat) 2.5-2.5 mcg/actuation uievAjgvfkskpmqu0OFLMXQOZDIUDGLQagmq2820 May 13, 2025 8:10amSeptember 2024 11:36amUmeclidinium-Vilanterol (Anoro Ellipta) 62.5-25 mcg/actuation blister with krxqtfDsjwbivgkbsh2YQW EFLAQKKSIRAlmoy35235Rarvatacb 2024 11:00pmOctober 2024 7:58am Amlodipine 2.5 mg tabletActive2.1CBJCKnpcj67500Mmyqjt 2024 9:15amComplies with drug therapyEscitalopram Oxalate 10 mg pxragwJakcta23QYNFTdplr06831Bzvvfb 2024 9:16amComplies with drug therapyNabumetone 500 mg tabletActive0.ROUTE .XDFCFAL6883Dhyoen 2024 9:16amTAKE 1 TABLET TWICE A DAYComplies with drug therapyFexofenadine (Allergy Relief (Fexofenadine)) 180 mg ghgoepOaltzg431KZPG Crwpv98554Eogxde2024 9:17amComplies with drug therapyOmeprazole 20 mg capsule,delayed release(DR/EC)Muahol46SXDZJtnwv50870Zutvdy 15th, 2025 9:17am Complies with drug therapyTamsulosin 0.4 mg capsuleActive0.4MGPODaily at bedtime 2024 9:17amComplies with drug therapyClotrimazole- Betamethasone 1-0.05 % naueuBlmlip0EXJJPQMURGUMROdgho mkkor23640Oipezaov 2024 12:00amComplies with drug therapyFluticasone Propion-Salmeterol (Advair Diskus) 250-50 mcg/dose blister with bfytdmImendh9UACLSRYBKSTGCNpvcx 12 nzpko132 August 03, 2025 12:00amComplies with drug therapyAmlodipine 2.5 mg tablet Discontinued2.3RZNONpwrc86625Xtfzrvvb 2024 9:2024 9:18am Nabumetone 500 mg tabletDiscontinued0.ROUTE.ZCYKYJF2111Obfsqbbf 12th, 2025 9:2024 9:18amTAKE 1 TABLET TWICE A DAYOmeprazole 20 mg capsule,delayed release(DR/EC)Oczhglcggfhu52TAADSbhhv72975Klrortad 12th, 2025 9:2024 9:18amTamsulosin 0.4 mg capsuleDiscontinued0.4MGPODaily at dwrzqnc97913Miuxwpdr 12th, 2025 9:2024 9:18amEscitalopram Oxalate 10 mg itmlmsUnhtxojtoefk94GFRYDxiet79360Vhvkjhas 12th, 2025 9:2024 9:18amClonazepam 0.5 mg tabletDiscontinued0.4UYALNjavz28849Bwwledsi 2024 9:2024 4:53pmGeneralized anxiety disorder Generalized anxiety disorderAspirin 81 mg tablet,xzlnnubuDztyyz37PJOSMpmai October 01, 2024 12:00amComplies with drug therapyDoxycycline Hyclate 100 mg dvccfpbCvnohpwwgsop757QGWHAebbe hjjqb010Ykcis 2024 11:00pmApril 2024 3:30pmPrednisone 20 mg jcdcdxLlpvfghrgyfu90NYCDSn Doxesmvx968Ahqbe 2024 11:00pmJune 2024 7:57am1 tab tid w/ food x 3 days, then bid w/ food x 3 days, then qd w/ food x 3 daysAlbuterol Sulfate 2.5 mg /3 mL (0.083 %) solution for nebulizationDiscontinued2.5MGINHALATIONEVERY 4-6 HOURS as needed for shortness of breath or gbyontwg322360Xbyol 2024 10:42amMarch 2024 4:29pmSimple chronic bronchitis Simple chronic bronchitisDoxycycline Hyclate 100 mg cblsjwuCaroavhtawbv604GWAV Twice wwaia70032Wnfoaj 2024 11:00pmSeptember 2024 7:56amMupirocin 2 % wsbrcrbeYkwfog8PWMWIJWIOSFLEIwrcn kfxik63216Lywarx 2024 12:47pmComplies with drug therapy Immunizations Immunization Event Date Not Given Reason Dose Number 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 Lot Number Reason(s) Given Vaccine Information Statement (VIS) Detail Administration Location [facility], Pediatric Age 5-11 May COVID-19 mRNA-1273 (Moderna)September 27OVID-19 mRNA-1273 (Moderna)October 25OVID-19 mRNA-1273 (Moderna)July 25OVID-19 (MODERNA) 12Y and olderOctober OVID-19 (MODERNA) 12Y and olderSeptember 2023 COVID-19 mRNA Bivalent Booster (SHERPANDIPITY)May 31Tap, unspecifiedMay 2018Fluzone TIV High-Dose 65YR+May 28, 2024UT8437BALou[facility] Medical CenterFluzone TIV High-Dose 65YR+May 13, 2025U8800CAFPWake Forest Baptist Health Davie HospitalFluzone TIV High-Dose 65YR+May 07, 9806NJ125UNZbzvgvl TIV High- Dose 65YR+May 13, 5598GK270VRKkxhkkp TIV High-Dose 65YR+April 09, 9552XP369HQWefqygtdg, trivalentSeptember [id number], trivalent May 02, [id number] vaccine, quadrivalent, adjuvantedOctober [id number] vaccine, quadrivalent, adjuvantedOctober 2022 influenza, unspecified formulationSeptember , 2014influenza, unspecified formulationSeptember , 2015influenza, unspecified formulationAugust , 2016influenza, unspecified formulationSeptember , 2018influenza, unspecified formulationOctober 2019influenza, unspecified formulationOctober 2021 influenza, unspecified formulationOctober neumococcal Conjugate Vaccine, 13 valentJuly 2014Pneumococcal Polysacc. Vaccine, 23 valent August 21, 2012Pneumococcal Polysacc. Vaccine, 23 valentMay 2018 Pneumococcal Polysacc. Vaccine, 23 valentJanuary 2016Quadrivalent InfluenzaOctober 2015Zoster Vaccine Recombinant, AdjuvantedJune 2020 Zoster Vaccine Recombinant, AdjuvantedSeptember 2020Tetanus, Diphtheria adult, 5 Lf pres free absSeptember 2012Tetanus, Diphtheria adult, 5 Lf pres free absSeptember , 2013Tetanus, Diphtheria, Pertussis (Tdap)January 03, 2019 J8749Trsdcmlq (Zoster)December 12, 2011Shingles (Zoster)May 31, 2016 Shingles (Zoster)January 28hingles (Zoster)May 03, 2021 Vital Signs Vital Reading Result Reference Range Collection Date/Time Height 66 [in_i] May 13, 2025 8:86rpWnkwhg13.24 kgSeptember 2024 8:01amHeart Rate70 /bxg42-020Gabbkrohx 24th, 2025 8:01amRespiratory rate12 /dwm60-16Vtcavtroj 2024 8:01amBP Ihjjgqsc310 mm[Hg]100-140September 2024 8:01amBP Gapinomwb45 mm[Hg]60-100September 2024 8:01amBMI (Body Mass Index)29.2 kg/f9Pzlemejpz 2024 8:35kzHvwvss41 [in_i]July 01, 2025 3:13pmWeight 85.72 kgNov2024 3:13pmHeart Rate93 /bfq20-340NqaycpbuJuly 01, 2025 3:13pmRespiratory rate24 /ngi20-04Mjcnfmmb 12th, 2025 3:13pmBP Zwvxhvnw872 mm[Hg]100-140Nov2024 3:13pmBP Yycgqfudh11 mm[Hg]60-100Nov2024 3:13pmBMI (Body Mass Index)30.4 kg/w3Zmhvmopy2024 3:90mtNvinan75 [in_i]August 03, 2025 4:52suUpgogb84.08 kgDecember 2024 4:05pmHeart Rate71 /ilr55-915Wtrhevrx 2024 4:05pmRespiratory rate20 /yoa58-36Vpodfbte 2024 4:05pmOxygen saturation by Pulse oacbfhkh49 %95-100December 2024 4:05pmBP Cibdtgsb868 mm[Hg]100-140December 2024 4:05pmBP Nmzozcvem10 mm[Hg]60-100December 2024 4:05pmBMI (Body Mass Index)30.9 kg/b0Jejxbwuo 2024 4:05pm Advance Directives Advance Directive Response Recorded Date/ Time Advance Directives No January 21 8:53am Insurance Providers Guarantor Ruperto Thorpe Address [address] [place] [id number] Info.Home Phone: Payer Group Member ID Coverage Type Subscriber Relationship to Subscriber Effective Date Expiration Date Medicare [id number] R Weller Id: [id number] [address] [place] [id number] Home Phone: Email: [email or web address] MarketingJosephHarris [facility] Life Insur [id number] R Weller Id: [id number] [address] [facility] [address] Home Phone: Email: [email or web address] MarketingSelf Encounters Encounter Location(s) Arrival/Admit Date Discharge/Departure Date Discharge/Departure Disposition Provider(s) Departed Physician/ Provider Office Visit -[facility] May 13, 2025 8:50am May 13, 2025 9:40am Discharged to home care or self care (routine discharge) Cecilio Benjamin DO Departed Physician/ Provider Office Visit -[facility] July 01, 2025 3:05pm July 01, 2025 3:27pm Discharged to home care or self care (routine discharge) Cecilio Benjamin DO Departed Physician/ Provider Office Visit -[facility] August 03, 2025 3:36pm August 03, 2025 5:09pm Discharged to home care or self care (routine discharge) Cecilio Benjamin DO Recent Diagnosis Onset Date Admit Date Aortic stenosis Unknown May 13, 2025 8:50am Benign prostatic hyperplasia with lower urinary tract symptoms Unknown May 13, 2025 8:50am Chronic bronchitis, simple Unknown 2024 8:50am Chronic kidney disease, stage 3a Unknown May 13, 2025 8:50am Elevated cholesterol Unknown April 212024 8:50am Generalized anxiety disorder Unknown Apr 8:50am Hypertension Unknown May 13, 2025 8:50am IFG (impaired fasting glucose) Unknown S 2024 8:50am Lumbar spondylolysis Unknown April 212024 8:50am Nocturnal leg cramps Unknown April 212024 8:50am Obstructive sleep apnea Unknown 2024 8:50am Intertriginous dermatitis as sociated with moisture Unknown July 01, 2025 3:05pm Irritant balanitis Unknown June 3:05pm Aortic stenosis Unknown August 03, 2 025 3:36pm Benign prostatic hyperplasia with lower urinary tract symptoms Unknown August 03, 2025 3:36pm Chronic bronchitis, simple Unknown Decem 2024 3:36pm Chronic kidney disease, stage 3a Unknown August 03, 2025 3:36pm Elevated cholesterol Unknown August 032024 3:36pm Generalized anxiety disorder Unknown Jul 3:36pm Hypertension Unknown August 03, 2 025 3:36pm IFG (impaired fasting glucose) Unknown D ec2024 3:36pm Lumbar spondylolysis Unknown August 032024 3:36pm Nocturnal leg cramps Unknown August 032024 3:36pm Obstructive sleep apnea Unknown August 03, 2025 3:36pm Assessments Diagnosis Onset Date Resolution Status Admit Date Aortic stenosis acuteSeptember 2024 8:50amBenign prostatic hyperplasia with lower urinary tract symptomsacuteSeptember 2024 8:50amChronic bronchitis, simpleacute May 13, 2025 8:50amChronic kidney disease, stage 3aacuteSeptember 2024 8:50amElevated cholesterolacuteSeptember 2024 8:50amGeneralized anxiety disorderacuteSeptember 2024 8:50amHypertensionacuteSeptember 2024 8:50amIFG (impaired fasting glucose)acuteSept2024 8:50amLumbar spondylolysisacuteSeptember 2024 8:50amNocturnal leg crampsacuteSeptember 2024 8:50amObstructive sleep apneaacuteSeptember 2024 8:50am Intertriginous dermatitis associated with moistureacuteNov2024 3:05pmIrritant balanitisacuteNov2024 3:05pmAortic stenosisacute August 03, 2025 3:36pmBenign prostatic hyperplasia with lower urinary tract symptomsacuteDecemb2024 3:36pmChronic bronchitis, simpleacuteDecember 2024 3:36pmChronic kidney disease, stage 3aacuteDecember 2024 3:36pm Elevated cholesterolacuteDecember 2024 3:36pmGeneralized anxiety disorder acuteDecember 2024 3:36pmHypertensionacuteDecember 2024 3:36pmIFG (impaired fasting glucose)acuteDecember 2024 3:36pmLumbar spondylolysis acuteDecember 2024 3:36pmNocturnal leg crampsacuteDecember 2024 3:36pmObstructive sleep apneaacuteDecember 2024 3:36pm Plan of Treatment Author Cecilio Benjamin Madison HealthAuthoredSeptember 2024 8:20amI have instructed this patient to consume a healthy, low-fat, low-salt diet. I have also encouraged them to continue exercise with weight loss to achieve/maintain a BMI < 30. I have instructed this patient on the correct procedure for obtaining home BP measurements:? - rest for 5 minutes w/o talking. [...] use of the CPAP for JACI treatment. compliant I have instructed this patient to avoid [...] improved his readings Healthy diet, avoid sweets Instructed on proper inhaler use. Mucolytics as needed to clear secretions. Avoid extremes of temperature, dust, smoke or fumes. UTD w/ vaccines PFT: FEV1/FVC 57%, FEV1 62%, TLC 86%, RV/TLC 41%, DLCO 79% - 03/2025 Recommend switching Advair to Stiolto - may need to use SHARIF during the harvest - use SHARIF w/ SOB, cough and wheezing I have instructed this patient on a low fat, high fiber diet and exercise. I have discussed the primary and secondary prevention benefits attributed to lowering LDL cholesterol. I have also discussed the medical treatment of elevated cholesterol, which is based on the 10 year ASCVD risk. Instructed to decrease fluid intake to 96oz / day. Instructed to decongestants and anticholinergic meds. Instructed to d/c all caffeine. Instructed on a healthy diet and exercise routine. Instructed to continue medical treatment w/o interruption. Instructed to avoid abrupt d/c of medication due to w/d symptoms. Continue Escitalopram without interruption Instructed to cut back on caffeine consumption. Instructed to cut back on quantity of fluid to 96oz/day. Gentle stretches prior to bedtime. Avoid strenuous activity Instructed on strict control of BP and hydration. Echo: LVEF 62%, IBETH, normal RV size/function, RVSP 31, ESTEPHANIE 2.01cm, velocity 297, gradient 11/07 - 08/2021, Echo: LVEF 65%, normal RV size/function, RVSP 33, ESTEPHANIE 1.2cm, velocity 2.34m/s, gradient 09/08 - 02/2025 [facility] 2024 3:29pmKeep area dry and use pwdr as needed. Triamcinolone crm for erythema and itching. Avoid harsh soaps. Dry after shower w/ hairspring staker Avoid harsh soaps. Lotrisone bid for next 7-10 days. Update office next week Author [facility] 20[facility] 4:48pmI have instructed this patient to consume a healthy, low-fat, low-salt diet. I have also encouraged them to continue exercise with weight loss to achieve/maintain a BMI < 30. I have instructed this patient on the correct procedure for obtaining home BP measurements:? - rest for 5 minutes w/o talking. - positioned w/ feet on floor and arms supported. - average best 2/3 readings w/ goal < 135/85. - update office w/ home readings in 2 weeks. Continue Amlodipine without interruption Instructed on strict control of BP and hydration. Echo: LVEF 62%, IBETH, normal RV size/function, RVSP 31, ESTEPHANIE 2.01cm, velocity 297, gradient 11/07 - 08/2021, Echo: LVEF 65%, normal RV size/function, RVSP 33, ESTEPHANIE 1.2cm, velocity 2.34m/s, gradient 09/08 - 02/2025 Instructed on proper inhaler use. Mucolytics as needed to clear secretions. Avoid extremes of temperature, dust, smoke or fumes. UTD w/ vaccines PFT: FEV1/FVC 57%, FEV1 62%, TLC 86%, RV/TLC 41%, DLCO 79% - 03/2025 Recommend switching Advair to Stiolto - may need to use SHARIF during the harvest - use SHARIF w/ SOB, cough and wheezing I instructed this patient on the benefits [...] use of the CPAP for JACI treatment. compliant His A1C is between 5.7-6.5%. Instructed on low carb, high fiber diet. Instructed on routine exercise program for 30-60min three times weekly. Instructed on correlation between obesity and insulin resistance and encouraged to lose weight. Monitor A1C every 6 months. A1C < 5.5% Recent weight loss has improved his readings Healthy diet, avoid sweets I have instructed this patient on a low fat, high fiber diet and exercise. I have discussed the primary and secondary prevention benefits attributed to lowering LDL cholesterol. I have also discussed the medical treatment of elevated cholesterol, which is based on the 10 year ASCVD risk. Instructed to decrease fluid intake to 96oz / day. Instructed to decongestants and anticholinergic meds. Instructed to d/c all caffeine. Instructed on a healthy diet and exercise routine. Instructed to continue medical treatment w/o interruption. Instructed to avoid abrupt d/c of medication due to w/d symptoms. Continue Escitalopram without interruption Instructed to cut back on caffeine consumption. Instructed to cut back on quantity of fluid to 96oz/day. Gentle stretches prior to bedtime. Avoid strenuous activity I have instructed this patient to avoid [...] pain management. f/o Pain Clinic Neurogenic claudication? Future Tests Future scheduled test information is unavailable Pending Tests Pending diagnostic test information is unavailable Future Visits Future appointment information is unavailable Future Procedures Future procedure information is unavailable Future Medications Future medication information is unavailable Patient Instructions Patient instructions are unavailable
--- OUTSIDE RECORDS SUMMARY | 2025-08-03 17:10 | XMS_ITS | Continuity of Care Document ---
Author Organization [facility] Address [address] [place] [address] Phone Care Team Providers Care Animal Ecologist Name Role Phone Cecilio Benjamin DO Primary Care Provider Cecilio Benjamin DO Attending Provider Care Teams Patient Care Team Team Status: Active Member Role/Relationship Status Dates Cecilio Benjamin DO Primary Care Provider Active Patient Care Team Team Status: Inactive Member Role/Relationship Status Dates Cecilio Benjamin DO Primary Care Provider Active Start: August 03, 2025 End: August 03enjatata Benjamin DOAttending ProviderActiveStart: August 03, 2025 End: August 03, 2025 Chief Complaint and Reason for Visit Chief Complaint Admit Date fatigue, shakiness August 03, 2025 3:36pm Reason for Visit Admit Date Aortic stenosis August 03, 2025 3:36pm Benign [...] Type Severity Reaction Last Updated Verified Status Augdndc-RNO-HoM Reductase Inhibitor Allergy Unknown Unknown Reaction August [...] upper extremityFebruary 2023 3:58pmUnknownActiveFracture of right distal radiusJune 2024 8:13amUnknownActiveDistal radius fracture, leftJune 2024 7:17pmUnknownActiveIFG (impaired [...] 7:18amUnknown ActiveCarotid US: < 50% B/L - ontusion of left wristJune 2024 10:43amUnknownActiveInactive/Resolved Problems Problem [...] 2023 12:00amMarch 2023 5:55pmTamsulosin 0.4 mg capsule Discontinued0.ROUTE.CDFMHCC092Mlq 2023 11:45amFebruary 2024 9:10am TAKE 1 CAPSULE DAILYEscitalopram Oxalate 10 mg tabletDiscontinued0.ROUTE.COMPLEX 90st 2023 12:32pmFebruary 2024 9:10amTAKE 1 TABLET AT BEDTIME Nabumetone 500 mg tabletDiscontinued0.ROUTE.DHDGXLG8641Dlhqyi 2023 12:32pm October 01, 2024 9:10amTAKE 1 TABLET TWICE A DAYClonazepam 0.5 mg tablet Discontinued0.7GNJGGpxew99480Pzpcpm 2023 12:33pmFebruary 2024 9:10am Generalized anxiety disorder Generalized anxiety disorderHydrocortisone (Proctosol Hc) 2.5 % cream with perineal txpgryugdkNdnxgrbpmcag9YWCYECIS2 to 2 times per day as needed for tfsqpixclmh71476Ddmhoxne 2023 12:00amFebruary 2024 9:11amFluticasone Propion-Salmeterol 113-14 mcg/actuation aerosol powdr breath activated Swzewraccniu5AJHSLKYWYTGRUHrfyo 12 gxljj1172Kivlk 2024 11:00pmMarch 2024 3:28pmFluticasone Propion-Salmeterol (Advair Hfa) 115-21 mcg/actuation HFA aerosol gujobjaCjvltwmunljz1MHQHCFHPSYRKTZStacz 12 otmbz26110Jyvba 2024 11:00pmJune 2024 10:22amAlbuterol Sulfate 2.5 mg /3 mL (0.083 %) solution for nebulizationActive2.5MGINHALATIONEVERY 4-6 HOURS as needed for shortness of breath or rxwasllq252850Teckh 2024 4:27pmSimple chronic bronchitis Simple chronic bronchitisComplies with drug therapyInhalational Spacing Device (Aerochamber Mini) spacerDiscontinued0.ROUTE.HOAMDBYOP04Xjufd 2024 11:00pm December 04, 2024 9:16amSimple chronic bronchitis Simple chronic bronchitisAs directedInhalational Spacing Device spacerActive0 .Szlhr18Mbrfm 2024 11:00pmSimple chronic bronchitis Simple chronic bronchitisAs directedFexofenadine (Allergy Relief (Fexofenadine)) 180 mg qmjkoxItsojpxvurpi488FIDSUilkw35466Hvzy 2024 8:42amAugust 2024 9:18amMontelukast 10 mg qwftbyDpwaze57MBBMSnflb at drzddgj22163Eodl 2024 8:43amComplies with drug therapyTiotropium-Olodaterol (Stiolto Respimat) 2.5-2.5 mcg/actuation kyuyCyzkbzfyvior7LCLTRRPQIXLVATNmeth7050Myiurr 2024 11:00pmSeptember 2024 8:10amClonazepam 0.5 mg tabletActive0.3DWLHIwszo6407 1August 2024 4:52pmGeneralized anxiety disorder Generalized anxiety disorderComplies with drug therapyFluticasone Propion- Salmeterol (Advair Diskus) 500-50 mcg/dose blister with rgoxwxKjfxoipjvmdn0SGY INHALATIONEvery 12 iijhm11244Qbpfspr 2024 11:00pmOctober 2024 4:06pm Umeclidinium (Incruse Ellipta) 62.5 mcg/actuation blister with rbzazsXnzrdr7RED INHALATIONDaily at jbwxvpj05841Pazxzyi 2024 11:00pmComplies with drug therapyFluticasone Propion-Salmeterol (Advair Hfa) 115-21 mcg/actuation HFA aerosol fnqkpdzZvyoyznxlhzm6UPNFEHUILAMXGALgqca 12 zpfss944158Wivgjoh 2024 11:00pmDecember 2024 4:20pmAcetaminophen 325 mg rgndcpHwamlr022LQBTPvgwh 8 hours as neededFebruary 2023 12:00am2 tablets by mouth orally every 8 hours PRNComplies with drug therapyAmlodipine 2.5 mg tabletDiscontinued2.5MGPO DailyFebruary 2023 12:00amMarch 2023 5:55pmClobetasol 0.05 % ointment Ljqpln5ILPRHNPGXZVATVkuiy dailyFebruary 2023 12:00amComplies with drug therapyClonazepam 0.5 mg tabletDiscontinued0.5MGPODaily at bedtimeFebruary 2023 12:00amMarch 2023 5:55pmDoxycycline Hyclate 100 mg capsuleDiscontinued 100MGPOTwice dailyFebruary 2023 12:00amMarch 2023 10:06amEscitalopram Oxalate 10 mg vqqxjjUnyebdwgiofh02GLMWCmovv at bedtimeFebruary 2023 12:00amMarch 2023 5:55pmMupirocin 2 % penbuslbXpwtnkmzlwdh6WDNLLMWJMLFUH Twice dailyFebruary 2023 12:00amJune 2024 7:57amNabumetone 500 mg sdscayDlnkmxhonxif192ICYTFltyt dailyFebruary 2023 12:00amMarch 2023 5:55pmOmeprazole 20 mg capsule,delayed release(DR/EC)Xkeitnojmxou30WMIEAhxwu October 17, 2023 12:00amMarch 2023 5:55pmSilver Sulfadiazine 1 % cream Vgqmvusjvrir5LHEDHMFFFYDFPSmcgjObwkrsbk 2023 12:00amJune 2024 7:57am Tamsulosin 0.4 mg capsuleDiscontinued0.4MGPODailyFebruary 2023 12:00am October 19, 2023 5:55pmTriamcinolone Acetonide 0.1 % xeylpglcAiurimgxnstf1FDFXDO TOPICALTwice dailyFebruary 2023 12:00amMarch 2023 5:55pmAmlodipine 2.5 mg tabletDiscontinued2.2XDQKSveyu05721Gxoqm 2023 10:05amFebruary 2024 9:10amClonazepam 0.5 mg tabletDiscontinued0.5MGPODaily at dpyzeyk87220Ysbsp 2023 10:06ugust 2023 12:34pmGeneralized anxiety disorder Generalized anxiety disorderEscitalopram Oxalate 10 mg xkdetlVtkbjexnrndm35PJOH Daily at ghexeqg66818Aijma 2023 10:07ugust 2023 12:34pmNabumetone 500 mg cvweftXqzkckqurwnd700TFXBYcxua hvjdi639214Brose 2023 10:07ugust 2023 12:34pmOmeprazole 20 mg capsule,delayed release(DR/EC)Xknivfbjpqyw62 HYXNRqret23232Wagjk 2023 10:07amFebruary 2024 9:10amTamsulosin 0.4 mg capsuleDiscontinued0.4OIMUEwjvn01313Nftxb 2023 10:08amMay 2023 11:45amTriamcinolone Acetonide 0.1 % ehsynlzuOlwkltiqdysu0QUFHPTXFWSYOWOikkg hojvm77297Ahjjt 2023 10:08amJune 2024 7:57amAlbuterol Sulfate 90 mcg/actuation HFA aerosol tnecfpzUleppfudalau9AFTXFIVVPLSYWWNQUBJ 4-6 HOURS as needed for shortness of breath or wheezing8.5903[facility] 2023 10:09amJune 2023 8:29amAlbuterol Sulfate 2.5 mg /3 mL (0.083 %) solution for nebulization Discontinued2.5MGINHALATIONEVERY 4-6 HOURS as needed for shortness of breath or gaokhqab197573Liktg 2023 12:00amMarch 2023 12:20pmSimple chronic bronchitis Simple chronic bronchitisFluticasone Propion-Salmeterol (Wixela Inhub) 250-50 mcg/dose blister with jbgrclNcmdjfqpvcrc5LJRKUNLQJDZNAQlphg nelss516794Yfhg 2023 11:00pmMar 2024 3:41pmAlbuterol Sulfate 90 mcg/actuation HFA aerosol layjksmQqkjal1GEPDQLRQMOOKIHPLYSN 4-6 HOURS as needed for shortness of breath or wheezing8.5305June 2023 8:28amComplies with drug therapyAlbuterol Sulfate 2.5 mg /3 mL (0.083 %) solution for nebulizationDiscontinued2.5MG INHALATIONEVERY 4-6 HOURS as needed for shortness of breath or psxbtscp297588 October 30, 2023 12:20pmMarch 2024 10:42amSimple chronic bronchitis Simple chronic bronchitisMupirocin 2 % zeazjgbeVitwbhcfqhvo0OBXUSKFBPZOEDNbfqp dailyJune 2024 11:00pmAugust 2024 12:49pmTriamcinolone Acetonide 0.05 % zexnjmxkRhwuwg7USODJRABOBAQPDntdnSxtw 24th, 2025 11:00pmComplies with drug therapyDoxycycline Hyclate 100 mg iohjgmaBdyznmiphbhd304HRICWucuf iisbu020Vgveo 2024 3:30pmJune 2024 7:56amFluticasone Propionate 250 mcg/actuation blister with pwiddrYekrznlkmjzi6WGQIEWMPVRTVTVoazq 12 kqoet38769Svvd2024 11:00pmJune 2024 10:31amMontelukast 10 mg kmpxwbJwpxvlsnhefv90VESBQvkmr at tboqqhq66291Zxnf2024 11:00pmJuly 2024 8:43amFexofenadine (Allergy Relief (Fexofenadine)) 180 mg eswbeeSrjxuwufsnzb817WKCCZvixf68266Aedt 2nd, 2025 11:00pmJuly 2024 8:43amFluticasone Propion-Salmeterol (Advair Diskus) 250- 50 mcg/dose blister with wthdbrWfhqppxpxkyb4MZSCNRUTACBSQVrbyb 12 rzwfe30808Ntow2024 11:00pmAugust 2024 12:51pmTiotropium-Olodaterol (Stiolto Respimat) 2.5-2.5 mcg/actuation xivdEpymxblrzekg4CIFFAZUIBVSPCXInrfg6062 May 13, 2025 8:10amSeptember 2024 11:36amUmeclidinium-Vilanterol (Anoro Ellipta) 62.5-25 mcg/actuation blister with gcwhqkNnibpfgyvqia1JPN PNNXVNDEWKLgndt33049Utdiixhov 2024 11:00pmOctober 2024 7:58am Amlodipine 2.5 mg tabletActive2.3IHVLVwwgh54225Jxvwhy 15th, 2025 9:15amComplies with drug therapyEscitalopram Oxalate 10 mg owkiiiFgapfn97UBWZLlrfb71941Cymyoz 2024 9:16amComplies with drug therapyNabumetone 500 mg tabletActive0.ROUTE .EPKXNAJ2415Wlbcce2024 9:16amTAKE 1 TABLET TWICE A DAYComplies with drug therapyFexofenadine (Allergy Relief (Fexofenadine)) 180 mg huagdoHzbujb595TRVR Dotbn76639Efvuyn2024 9:17amComplies with drug therapyOmeprazole 20 mg capsule,delayed release(DR/EC)Vlawmk68JKGDEsdcb40325Nkyucb 15th, 2025 9:17am Complies with drug therapyTamsulosin 0.4 mg capsuleActive0.4MGPODaily at bedtime 2024 9:17amComplies with drug therapyClotrimazole- Betamethasone 1-0.05 % rffmhCqvipy1LAFLNNEWHTQOIFjarq xjfpa42394Tvcyixzh 12th, 2025 12:00amComplies with drug therapyFluticasone Propion-Salmeterol (Advair Diskus) 250-50 mcg/dose blister with iaddehSdbzbm0DGVYRQZHUFWEYDlfyv 12 ukydu561 August 03, 2025 12:00amComplies with drug therapyAmlodipine 2.5 mg tablet Discontinued2.7HHXICayms27093Ljsfowqz 2024 9:082024 9:18am Nabumetone 500 mg tabletDiscontinued0.ROUTE.TTGPAZI7848Hjrbsbpr2024 9:082024 9:18amTAKE 1 TABLET TWICE A DAYOmeprazole 20 mg capsule,delayed release(DR/EC)Umdlufkhsbkr61FKTHRvbol17050Uxdmkgno 2024 9:082024 9:18amTamsulosin 0.4 mg capsuleDiscontinued0.4MGPODaily at qediezg50517Qanmqpyj 2024 9:082024 9:18amEscitalopram Oxalate 10 mg baglxiYzggjsowrwct43YSHMVntor31692Xyklolfm 2024 9:092024 9:18amClonazepam 0.5 mg tabletDiscontinued0.0CXLAAfnuf98524Ykevdkto 2024 9:10a2024 4:53pmGeneralized anxiety disorder Generalized anxiety disorderAspirin 81 mg tablet,zyxnjatgFbfnea90FAOEDfhmt October 01, 2024 12:00amComplies with drug therapyDoxycycline Hyclate 100 mg tiiduiwQjtmdxuazyzb695ZNAXMlrbv bwolw129Lsetv 2024 11:00pmApril 2024 3:30pmPrednisone 20 mg cwmvuoBoaoovvonkuh89ZUHZWh Mnqlirnd850Utonz 2024 11:00pmJune 2024 7:57am1 tab tid w/ food x 3 days, then bid w/ food x 3 days, then qd w/ food x 3 daysAlbuterol Sulfate 2.5 mg /3 mL (0.083 %) solution for nebulizationDiscontinued2.5MGINHALATIONEVERY 4-6 HOURS as needed for shortness of breath or wspwziqf703424Baxpy 2024 10:42amMarch 2024 4:29pmSimple chronic bronchitis Simple chronic bronchitisDoxycycline Hyclate 100 mg rztfxcbBaxoprxwknvb116ZLZD Twice xicvz35256Qiaoxr 2024 11:00pmSeptember 2024 7:56amMupirocin 2 % jwknwwhcNkylcf1WJVCIGRQBYKHCLkivj iyyxj76592Dmibdf 2024 12:47pmComplies with drug therapy Immunizations Immunization Event Date Not Given Reason Dose Number Broadcast Program Director Lot Number Reason(s) Given Vaccine Information Statement (VIS) Detail Administration Location [facility], Pediatric Age 5-30 May 122021 COVID-19 mRNA-1273 (Moderna)September 27OVID-19 mRNA-1273 (Moderna)October 25OVID-19 mRNA-1273 (Moderna)July 251COVID-19 (MODERNA) 12Y and olderOctober , OVID-19 (MODERNA) 12Y and olderSeptember 2023 COVID-19 mRNA Bivalent Booster (Coalfire)May 31Tap, unspecifiedMay 2018Fluzone TIV High-Dose 65YR+May 28, [id number] Regional Medical CenterFluzone TIV High-Dose 65YR+May 13, [id number] [facility] TempleFluzone TIV High-Dose 65YR+May 07, [id number] TIV High- Dose 65YR+May 13, [id number] TIV High-Dose 65YR+April 09, [id number], trivalentSeptember [id number], trivalent May 02, [id number] vaccine, quadrivalent, adjuvantedOctober [id number] vaccine, quadrivalent, adjuvantedOctober 2022 influenza, unspecified formulationSeptember 2014influenza, unspecified formulationSeptember , 2016influenza, unspecified formulationAugust , 2016influenza, unspecified formulationSeptember , 2017influenza, unspecified formulationOctober 2019influenza, unspecified formulationOctober 2021 influenza, unspecified formulationOctober neumococcal Conjugate Vaccine, 13 valentJuly 2014Pneumococcal Polysacc. Vaccine, 23 valent August 21, 2012Pneumococcal Polysacc. Vaccine, 23 valentMay 2018 Pneumococcal Polysacc. Vaccine, 23 valentJanuary 2016Quadrivalent InfluenzaOctober 2015Zoster Vaccine Recombinant, AdjuvantedJune 2020 Zoster Vaccine Recombinant, AdjuvantedSeptember 2020Tetanus, Diphtheria adult, 5 Lf pres free absSeptember 2012Tetanus, Diphtheria adult, 5 Lf pres free absSeptember 2013Tetanus, Diphtheria, Pertussis (Tdap)January 03, 2019 [id number] (Zoster)December 12, 2011Shingles (Zoster)May 31, 2016 Shingles (Zoster)January 28hingles (Zoster)May 03, 2021 Vital Signs Vital Reading Result Reference Range Collection Date/Time Height 66 [in_i] August 03, 2025 4:86zuLmjvug65.08 kgDecember 2024 4:05pmHeart Rate71 /uda62-725Mypqxlyu 2024 4:05pmRespiratory rate20 /uqa60-69Psnxipbu 2024 4:05pmOxygen saturation by Pulse eersemsg48 %95-100December 2024 4:05pmBP Clftwrnk095 mm[Hg]100-140December 2024 4:05pmBP Bsynhfwjk58 mm[Hg]60-100December 2024 4:05pmBMI (Body Mass Index)30.9 kg/s6Deohhawy 2024 4:05pm Advance Directives Advance Directive Response Recorded Date/ Time Advance Directives No January 21 8:53am Insurance Providers Guarantor Ruperto Thorpe Address [address] [facility] [address]Tdswuhl Info.Home Phone: Payer Group Member ID Coverage Type Subscriber Relationship to Subscriber Effective Date Expiration Date Medicare [id number] R Weller Id: [id number] [address] [facility] [address] Home Phone: Email: [email or web address] Life Insur [id number] R Weller Id: [id number] [address] [facility] [address] Home Phone: Email: [email or web address] Encounters Encounter Location(s) Arrival/Admit Date Discharge/Departure Date Discharge/Departure Disposition Provider(s) Departed Physician/ Provider Office Visit -[facility] August 03, 2025 3:36pm August 03, 2025 5:09pm Discharged to home care or self care (routine discharge) Cecilio Benjamin , DO Recent Diagnosis Onset Date Admit Date Aortic stenosis Unknown August 03, 2 025 3:36pm Benign prostatic hyperplasia with lower urinary tract symptoms Unknown August 03, 2025 3:36pm Chronic bronchitis, simple Unknown Decem nhi 2024 3:36pm Chronic kidney disease, stage 3a Unknown August 03, 2025 3:36pm Elevated cholesterol Unknown August 032024 3:36pm Generalized anxiety disorder Unknown Jul 3:36pm Hypertension Unknown August 03, 2 025 3:36pm IFG (impaired fasting glucose) Unknown D ecember 2024 3:36pm Lumbar spondylolysis Unknown August 032024 3:36pm Nocturnal leg cramps Unknown August 032024 3:36pm Obstructive sleep apnea Unknown August 03, 2025 3:36pm Assessments Diagnosis Onset Date Resolution Status Admit Date Aortic stenosis acuteDece2024 3:36pmBenign prostatic hyperplasia with lower urinary tract symptomsacuteDece2024 3:36pmChronic bronchitis, simpleacute August 03, 2025 3:36pmChronic kidney disease, stage 3aacutece2024 3:36pmElevated cholesterolacutece2024 3:36pmGeneralized anxiety disorderacutece2024 3:36pmHypertensionacutecemb2024 3:36pmIFG (impaired fasting glucose)acuteAugust 03, 2025 3:36pmLumbar spondylolysisacuteDece2024 3:36pmNocturnal leg crampsacuteDece2024 3:36pmObstructive sleep apneaacutece2024 3:36pm Plan of Treatment Author Cecilio Benjamin [facility] 2024 4:48pmI have instructed this patient to [...] use, the patient reduces the risk for NC, CVA, HTN, cardiac dysrhythmias and sudden cardiac [...]
--- OUTSIDE RECORDS SUMMARY | 2025-08-05 11:07 | XMS_ITS | Encounter Summary ---
Author Organization [facility] Address [address] [place] [address] Care Team Providers Care Machine Tool Dresser Name Role Phone Cecilio Benjamin DO Primary Care Provider [phone] Encounter Details DateTypeDepartmentCare Team (Latest Contact Info)Npwenrbrbvu38/11/2025Travel Social History Tobacco UseTypesPacks/DayYears UsedDateSmoking Tobacco: NeverSmokeless Tobacco: NeverSex and Gender InformationValueDate RecordedSex Assigned at BirthNot on fileLegal FclMzat7011/01/2022 7:36 PM EDTGender IdentityNot on fileSexual OrientationNot on filedocumented as of this encounter Plan of Treatment DateTypeDepartmentCare Team (Latest Contact Info)Jgslliyhaui88/19/2026 9:40 AM ESTProcedure Visit [facility] [address] [facility] [address] [place] [address] Yasmany Daugherty, DPM [address] [facility] [address] [place] [address] documented as of this encounter Visit Diagnoses Not on filedocumented in this encounter Care Teams Team MemberRelationshipSpecialtyStart DateEnd Date Cecilio Benjamin DO [address] [facility] [place] [address] PCP - GeneralInternal Nmbtacdn32/11/25documented as of this encounter
--- OUTSIDE RECORDS SUMMARY | 2025-08-05 11:07 | XMS_ITS | Clinical Summary ---
Author Organization [facility] Address [address] [place] [address] Care Team Providers Care Glass Washer And Carrier Name Role Phone Unavailable Primary Care Provider Unavailabl e Social History Tobacco UseTypesPacks/DayYears UsedDateSmoking Tobacco: Never AssessedUT Safety & EnvironmentAnswerDate RecordedFear of Current or Ex-PartnerNot on file 10/11/2023Emotionally AbusedNot on file10/11/2023hysically AbusedNot on file 10/11/2023Sexually AbusedNot on file4Physically or Sexually AbusedNot on file10/11/2023Sex and Gender InformationValueDate RecordedSex Assigned at BirthNot on fileLegal ZqkDwvy3902/16/2022 12:43 AM EDTGender IdentityNot on file Sexual OrientationNot on file Plan of Treatment Health MaintenanceDue DateLast DoneCommentsMedicare Annual Wellness (AWV) 1Depression Peiwpbqnj34/08/1953Pneumococcal Vaccine: 50+ Years (1 of 2 - PCV)1960Adult Ofucxnq0907/27/1963Zoster Vaccines (1 of 2)1991Fall Risk Wyiacfsvn61/08/2006COVID-19 Vaccine ( - season)2025Influenza Vaccine (#1)2025HIB VaccinesAged OutNo longer eligible based on patient's age to complete this topicHPV VaccinesAged OutNo longer eligible based on patient's age to complete this topicIPV VaccinesAged OutNo longer eligible based on patient's age to complete this topicMeningococcal B VaccineAged OutNo longer eligible based on patient's age to complete this topicMeningococcal VaccineAged OutNo longer eligible based on patient's age to complete this topicRotavirus VaccinesAged OutNo longer eligible based on patient's age to complete this topic Insurance
--- OUTSIDE RECORDS SUMMARY | 2025-08-05 11:07 | XMS_ITS | Clinical Summary ---
Author Organization [facility] Address [address] [place] [address] Care Team Providers Care Mgmt Analyst Name Role Phone Cecilio Benjamin DO Primary Care Provider [phone] Medications No known medications Active Problems No known active problems Encounters DateTypeDepartmentCare EzloKycgrlwdbxe79/11/2025 8:40 AM ESTOffice Visit [facility] [address] [place] [address] Yasmany Daugherty DPM Xerosis cutis (Primary Dx); Pain due to onychomycosis of toenails of both feet07/30/2025amboo flowsheet [facility] [address] [place] [address] Yasmany Daugherty DPM 07/30/2025Travelfrom Last 3 Months Social History Tobacco UseTypesPacks/DayYears UsedDateSmoking Tobacco: NeverSmokeless Tobacco: Never Tobacco Cessation:Counseling Given: Yes Sex and Gender InformationValueDate RecordedSex Assigned at BirthNot on file Legal JvpQaqz0511/01/2022 7:36 PM EDTGender IdentityNot on fileSexual Orientation Not on file Last Filed Vital Signs Vital SignReadingTime TakenCommentsBlood Pressure--Pulse--Temperature-- Respiratory Svtd259209/30/2024 8:57 AM ESTOxygen Saturation--Inhaled Oxygen Concentration--Baebar07.6 kg (180 lb)07/30/2025 8:57 AM CKDKectli803.7 cm (5' 8 )07/30/2025 8:57 AM ESTBody Mass Index27.37109/30/2024 8:57 AM EST Plan of Treatment DateTypeDepartmentCare Team (Latest Contact Info)Paoubajqufp29/19/2026 9:40 AM ESTProcedure Visit [facility] [address] [facility] [address] [place] [address] Yasmany Daugherty, DPJill [address] [facility] [address] [place] [address] Health MaintenanceDue DateLast DoneCommentsCOVID-19 Vaccine ( season) 5005/14/2024, 05/30/2023, 05/31/2022, Additional history exists Pneumococcal Vaccine: 65+ WexwqTwbnwholh91/08/2019, 08/30/2016, 03/06/2015 Influenza HaueidzGanalhlsx94/24/2025, 05/28/2024, 05/30/2023, Additional history exists Insurance * Guarantor: Elkin Thorpe TypeRelation to PatientDate of BirthPhone Billing AddressPersonal/VcsweeOchw1940 [address] [address] Care Teams Team MemberRelationshipSpecialtyStart DateEnd Date Cecilio Benjamin DO [address] [facility] [place] [id number] PCP - GeneralInternal Udajwptw53/11/25
--- OUTSIDE RECORDS SUMMARY | 2025-08-05 11:07 | XMS_ITS | Encounter Summary ---
Author Organization [facility] Address [address] [place] [address] Care Team Providers Care Franchise Consultant Name Role Phone Cecilio Benjamin DO Primary Care Provider [phone] Encounter Details DateTypeDepartmentCare Team (Latest Contact Info)Igfvfaouiue70/11/2025amboo flowsheet [facility] [address] [facility] [address] [place] [address] Yasmany Daugherty DPM [address] [address] Social History Tobacco UseTypesPacks/DayYears UsedDateSmoking Tobacco: NeverSmokeless Tobacco: NeverSex and Gender InformationValueDate RecordedSex Assigned at BirthNot on fileLegal WrpTkze7811/01/2022 7:36 PM EDTGender IdentityNot on fileSexual OrientationNot on filedocumented as of this encounter Plan of Treatment DateTypeDepartmentCare Team (Latest Contact Info)Ytstbkuymfv55/19/2026 9:40 AM ESTProcedure Visit [facility] [address] [place] [address] Yasmany Daugherty DPM [address] [address] documented as of this encounter Visit Diagnoses Not on filedocumented in this encounter Care Teams Team MemberRelationshipSpecialtyStart DateEnd Date Cecilio Benjamin DO [address] [facility] [place] [address] PCP - GeneralInternal Cmnjwqlo23/11/25documented as of this encounter
--- OUTSIDE RECORDS SUMMARY | 2025-08-05 11:07 | XMS_ITS | Clinical Summary ---
Author Organization [facility] Address [facility] [place] [address] Care Team Providers Care Lusterer Name Role Phone Cecilio Benjamin DO Primary Care Provider [phone] Allergies Active AllergyReactionsCriticalityNoted BjygGwjmggjiQzqfflzydpBjetymi68/23/2014 Medications MedicationSigDispense QuantityRefillsLast FilledStart DateEnd DateStatus Multivitamin capsule Take 1 capsule by mouth once daily.Active tamsulosin ER (FLOMAX) 0.4 mg cp24 Take 0.4 mg by mouth.Active escitalopram oxalate (LEXAPRO) 10 mg tablet Take 10 mg by mouth once daily.Active omeprazole (PRILOSEC) 20 mg capsule Take 20 mg by mouth once daily.Active clonazePAM (KLONOPIN) 0.5 mg tablet Take 0.5 mg by mouth at bedtime as needed (1/2 tab).Active CALCIUM CARBONATE/VITAMIN D3 (VITAMIN D-3 ORAL) Take 1 tablet by mouth once daily.Active COMPOUNDED PRESCRIPTION Fiber Well 5mg. Take dailyActive FLUTICASONE/SALMETEROL (ADVAIR DISKUS INHALATION) Inhale 1 Puff as instructed once daily.Active FISH OIL-DHA-EPA ORAL Take 1 capsule by mouth once daily.Active acetaminophen (TYLENOL) 500 mg tablet Take 2 tablets by mouth every 8 hours. (Mild pain reliever) 90 tablet Active docusate sodium (COLACE) 100 mg capsule Take 1 capsule by mouth twice daily. (Stool softener) 60 capsule 01/02/2018Active aspirin, enteric coated (ASPIRIN, ENTERIC COATED) 325 mg EC tablet Take 1 tablet by mouth twice daily. (Blood thinner to prevent blood clots) 84 tablet 01/02/2018Active Additional Information Patient taking differently: 81 mgORAL 2 TIMES DAILY, (Blood thinner to prevent blood clots), Reason: Changing Therapy/Dosage Form, Reported on 05/09/2021 Amoxicillin 500 mg tablet Take 4 tablets by mouth 1 hour prior to procedure and 2 tablets by mouth 6 hours after procedure 6 tablet Active MELATONIN, BULK, MISC Take 2 tablets by mouth.Active nabumetone (RELAFEN) 500 mg tablet 02/08/2021ctive albuterol HFA (PROVENTIL HFA, VENTOLIN HFA) 90 mcg/actuation inhaler 07/22/2021ctive Active Problems ProblemNoted DateDiagnosed DatePrimary osteoarthritis of right hip01/01/2018 Osteoarthritis of right hip10/30/2017 Overview (10/30/2017): Added automatically from request for surgery [id number] Complete tear of right rotator cuff05/17/2017 Overview (05/17/2017): Added automatically from request for surgery [id number] Incomplete tear of right rotator cuff01/11/2017Pain, upper back09/29/2013nxiety 09/11/2013Impingement syndrome, /23/2014Cubital tunnel syndrome 09/11/2013Status post cervical spinal ynjsfl4009/11/2013Multiple allergies Overview (09/11/2013): soap, chemicals perfumes AsthmaGERD (gastroesophageal reflux disease)JACI (obstructive sleep apnea)BPH (benign prostatic hyperplasia) Family History Medical HistoryRelationCommentskidney failureFatherStrokeMotherRelationStatus CommentsBrotherDeceasedFatherDeceasedMotherDeceased Social History Tobacco UseTypesPacks/DayYears UsedDateSmoking Tobacco: NeverSmokeless Tobacco: Never Tobacco Cessation:Counseling Given: No Alcohol UseStandard Drinks/WeekCommentsYes0 (1 standard drink = 0.6 oz pure alcohol)Katie's in coffeePHQ-2AnswerDate RecordedPHQ-2 rojtl052rea Deprivation IndexAnswerDate RecordedNational Score (1-100), lower number is lower aahy791803/15/2023State Score (1-10), lower number is lower urot610 Data from: https://www.neighborhoodatlas.medicine.[facility].edu/. Last address used for [address] [place] [address]/15/2023Sex and Gender InformationValueDate RecordedSex Assigned at BirthNot on fileLegal DvfAwfs0409/04/2013 2:49 PM EST Gender IdentityNot on fileSexual OrientationNot on fileOccupationIndustryJob Start DateJob End DateretiredNot on fileNot on fileNot on file Last Filed Vital Signs Vital SignReadingTime TakenCommentsBlood Jummiaqs483/7807 9:45 AM EDT Njsnj535303/15/2023 9:45 AM QARZccxnnpwjaa57.7 ??C (98.1 ??F)03/15/2023 9:15 AM EDTRespiratory Bcvp646703/15/2023 9:45 AM EDTOxygen Vpmjjlerdk18%03/15/2023 9:45 AM EDTInhaled Oxygen Concentration--Ertjii53.5 kg (184 lb)05/09/2021 12:00 PM EDTself blwxiqJrjhdy688.9 cm (5' 6.5 )05/09/2021 12:00 PM EDTBody Mass Index 29.2509 12:00 PM EDT Plan of Treatment Health MaintenanceDue DateLast DoneCommentsAnxiety Etoslapbu00/08/1959Depression Klfxhpmjh25/08/1959RSV Vaccine (1 - 1-dose 75+ series)2016Diabetes Kcalomhov37, 01/01/2018, 12/11/2017, Additional history exists Advance Directive Npnkynxell31/01/2025Covid-19 Vaccine ( season) /07/2022, 07/25/2021, 10/25/2020, Additional history existsInfluenza Vaccine (#1)/, 05/02/2019, 04/30/2018, Additional history existsDTaP,Tdap,Td Vaccine (2 - Td or Tdap)9001/03/2019Pneumococcal Vaccine: 50+Xiczzdwhj37/08/2019, 08/30/2016, 03/06/2015Shingrix VaccineCompleted 05/03/2021, 01/28/2021, 05/31/2016, Additional history exists Medical Devices ImplantedTypeAreaManufacturerDevice IdentifierShelf Expiration DateModel / Serial / LotAnchor Corkscrew Fiberwire Tigerwire 5.5mm 2 Full Thread Biocomposite 14.7 - [id number] Implanted:Qty[facility] - Shoulder [employer]12/17/[id number] / / [id number] Swivelock Tenodesis 8mm Biocomposite 19.5mm Suture Fork Eyelet - [id number] Implanted:Qty: 1 on [facility]29/2017 [facility]: Bone - Shoulder [employer]06/19/[id number] / / [id number] 56mm E Hemispherical Tritanium Acetabular Primary Rim Cluster Hole - [id number] Implanted:01/01/2018 at [facility] (Quantity not on file)Joint - HipRight: Bone - [facility]STRY-[facility] WJDHZGOECJR02/17/[id number] / [id number] / [id number] Trident 40mm 0d E X3 Acetabular Hip - [id number] Implanted:01/01/2018 at [facility] (Quantity not on file)Joint - HipRight: Bone - HipSTRY-HOW ZXPAKOCHPGQ46/05/[id number] / [id number] / [id number] 40mm Brilliant Biolox Delta Tritanium Femoral Hip - [id number] Implanted:01/01/2018 at [facility] (Quantity not on file)Joint - HipRight: Bone - HipSTRY-HOW OYRNKALEIKJ70/07/[id number] / / [id number] Accolade Ii 6 132d Femoral - [id number] Implanted:01/01/2018 at [facility] (Quantity not on file)Joint - HipRight: Bone - HipSTRY-HOW MYDFAAQEOWC85/10/[id number] / [id number] / [id number] V40 +0mm Offset Brilliant Taper Titanium Adapter Hip - [id number] Implanted:01/01/2018 at [facility] (Quantity not on file)Joint - HipRight: Bone - [facility]STRY-[facility] RLAOTBUONQD48/09/[id number] / / [id number] Trident Secur-Fit Torx 6.5mm Titanium 20mm Bone Sterile Acetabular - [id number] Implanted:01/01/2018 at [facility] (Quantity not on file)ScrewRight: [facility]SA[facility] RJHZYBTFVQH52/25/[id number] / [id number] / [id number] Procedures Procedure NamePriorityDate/TimeAssociated DiagnosisCommentsBASIC METABOLIC PANEL (EU,FV,HL,NATALI,MM,SP)ASAP01/02/2018 4:32 AM EDT from Last 3 Months or Most Recently Relevant to Health Maintenance Results * (ABNORMAL) BASIC METABOLIC PANEL (AK,AV,EU,FV,HL,NATALI,MM,SP) (01/02/2018 4:32 AM EDT)ComponentValueRef RangeTest MethodAnalysis TimePerformed AtPathologist LusrzgkfcFbebjzr145(H)74 - 99 mg/dL01/02/2018 6:30 AM [facility] LABORATORYComment: The [place] Diabetes Association (ADA) provides guidance for cutoff [...] Standards of Medical Care in Diabetes 2016, [place] [employer]. Diabetes Care. 2016.39(Suppl 1). XWM075 - 24 mg/dL01/02/2018 6:30 AM [facility] LABORATORYCreatinine1.22 0.73 - 1.22 mg/dL01/02/2018 6:30 AM [facility] NNKUMAJYPXHpdmqk644224 - 144 mmol/L01/02/2018 6:30 AM [facility] LABORATORYPotassium4.43.7 - 5.1 mmol/L01/02/2018 6:30 AM [facility] QQWTKHPRONActyodvd15337 - 105 mmol/L 01/02/2018 6:30 AM [facility] IITVRXOHUSDX35716 - 30 mmol/L01/02/2018 6:30 AM [facility] LABORATORYAnion Dcv673 - 18 mmol/L01/02/2018 6:30 AM [facility] LABORATORYCalcium8.1(L)8.6 - 10.0 mg/dL01/02/2018 6:30 AM [facility] LABORATORYeGFR->60001/02/2018 6:30 AM [facility] LABORATORYeGFR-All Other Races58.01/02/2018 6:30 AM [facility] Comment: eGFR (Estimated GFR) [...] eGFR may not accurately reflect actual GFR. Specimen (Source)Anatomical Location / LateralityCollection Method / Volume Collection TimeReceived TimeBlood specimen (specimen)BLOOD SPECIMEN / Unknown 01/02/2018 4:32 AM EDT01/02/2018 4:33 AM EDT Narrative Authorizing ProviderResult TypeResult StatusTansammie [facility] REGIONALFinal ResultPerforming OrganizationAddressCity/State/ZIP CodePhone Number [facility] [phone] [facility] [place] [address], [place] from Last 3 Months or Most Recently Relevant to Health Maintenance Insurance Care Teams Team MemberRelationshipSpecialtyStart DateEnd Cecilio Benjamin DO PCP - GeneralInternal Medicine09/04/13
--- OUTSIDE RECORDS SUMMARY | 2025-08-05 11:07 | XMS_ITS | Clinical Summary ---
Author Organization [facility] Address [facility] [id number] [address] [place] [address] Care Team Providers Care Briquette Molder Name Role Phone Cecilio Benjamin DO Primary Care Provider [phone] Allergies Active AllergyReactionsCriticalityNoted WytrMowfkdlhKhasswjcdc98/19/2017 Medications MedicationSigDispense QuantityRefillsLast FilledStart DateEnd DateStatus traMADol (ULTRAM) 50 mg tablet Take 50 mg by mouth nightly.Active clonazePAM (KlonoPIN) 0.5 mg tablet Take 0.5 mg by mouth nightly. 1/2 PO qHSActive azithromycin (ZITHROMAX) 250 mg tablet Take 250 mg by mouth daily. Take 2 tablets the first day, then 1 tablet daily for 4 days.Active ESCITALOPRAM OXALATE ORAL Take 10 mg by mouth daily.Active mupirocin (BACTROBAN) 2 % ointment Apply 1 application topically 2 (two) times a day.Active clobetasol (TEMOVATE) 0.05 % ointment Apply 1 application topically 2 (two) times a day.Active hydrocortisone (ANUSOL-HC) 2.5 % rectal cream Insert 1 application into the rectum 2 (two) times a day.Active omeprazole (PriLOSEC) 20 mg capsule Take 20 mg by mouth daily.Active tamsulosin (FLOMAX) 0.4 mg capsule,extended release 24hr Take 0.4 mg by mouth nightly.Active fluticasone-salmeterol (ADVAIR) 250-50 mcg/dose DISKUS Inhale 1 puff every 12 (twelve) hours.Active sodium,potassium,mag sulfates (SUPREP BOWEL PREP KIT) 17.5-3.13-1.6 gram recon soln 177 ml actual weight 2 times daily Oral 1 kit Active Active Problems ProblemNoted DateDiagnosed DateRectal peuzglda36/19/2017GERD (gastroesophageal reflux disease)01/05/2017 Social History Tobacco UseTypesPacks/DayYears UsedDateSmoking Tobacco: NeverAlcohol UseStandard Drinks/WeekCommentsNo0 (1 standard drink = 0.6 oz pure alcohol)ChildcareAnswer Date ZwwfxmovUccycryioCfxdnnl30/11/2019EmploymentAnswerDate RecordedEmployment Oxrqcgk5701/28/2019Purpose - LifeAnswerDate RecordedPurpose and direction in life Fximfls2109/30/2020ex and Gender InformationValueDate RecordedSex Assigned at BirthNot on fileLegal VmqEkpj5303/23/2015 8:51 PM EDTGender IdentityNot on file Sexual OrientationNot on file Last Filed Vital Signs Vital SignReadingTime TakenCommentsBlood Fvwautyj580/78002/02/2017 9:50 AM EDT Pulse--Temperature--Respiratory Rate--Oxygen Saturation--Inhaled Oxygen Concentration--Owyfth79.6 kg (180 lb)02/02/2017 9:50 AM ZSLZcseyq639.7 cm (5' 8 )02/02/2017 9:50 AM EDTBody Mass Index27.37002/02/2017 9:50 AM EDT Plan of Treatment Health MaintenanceDue DateLast DoneCommentsDepression Teomtbxuw40/08/1953Tobacco Njopejntr32/08/1953DTaP,Tdap and Td Vaccines (1 - Tdap)1960Zoster (Shingles) Vaccine (1 of 2)1991Fall Risk Lrjyableu17/08/2006RSV ( or age 60+ yrs) (1 - 1-dose 75+ series)2016Influenza Kjwcqtc6804/20/2025 Medical Devices [place] [address] Care Teams Team MemberRelationshipSpecialtyStart DateEnd Date Cecilio Benjamin DO [address] [place] [address] [facility]12/20/16
--- NOTE | 2025-08-05 11:35 | PM.CN ---
Consult Note: HPI Data of Consult Patient: known to practice within the last 3 years Consult date: 08/05/25 Requesting Physician: Erica Hope NP Primary Care Provider: Cecilio Benjamin DO Consult Narrative Reason for consult: low back pain Narrative: Ruperto Thorpe a pleasant 85 year old male presents for evaluation of chronic low back and left SIJ pain. historically pt has failed to benefit from > 6 weeks of PT/HEP, heat, ice, tylenol, nsaids. prior lumbar mri consistent with multilevel stenosis and ddd. Pt notes prior left SIJ injection and bilateral L4-5 TFESI have provided > 50% improvement greater than 3 months. pt utilizing tylenol and nabumetone with mild relief, denies side effects. pain today 8/10 in left buttocks. significant pain with standing, walking, activity. improves drawstically with sitting and lying. cc:: CC: Erica Hope NP Review of Systems ROS Musculoskeletal Reports: back pain PFSH PFSH Medical History Low back pain ?M54.50 - Low back pain, unspecified (ICD-10) Heartburn ?R12 - Heartburn (ICD-10) Sleep apnea ?G47.30 - Sleep apnea, unspecified (ICD-10) COPD (chronic obstructive pulmonary disease) ?J44.9 - Chronic obstructive pulmonary disease, unspecified (ICD-10) Asthma ?J45.909 - Unspecified asthma, uncomplicated (ICD-10) Hypertension ?I10 - Essential (primary) hypertension (ICD-10) Surgical History H/O cervical spine surgery ?Z98.890 - Other specified postprocedural states (ICD-10) S/P tonsillectomy and adenoidectomy ?Z90.89 - Acquired absence of other organs (ICD-10) History of ankle surgery ?Z98.890 - Other specified postprocedural states (ICD-10) S/P cholecystectomy ?Z90.49 - Acquired absence of other specified parts of digestive tract (ICD-10) S/P total hip arthroplasty ?Z96.649 - Presence of unspecified artificial hip joint (ICD-10) History of surgery on upper extremity ?Z98.890 - Other specified postprocedural states (ICD-10) Social History Little interest or pleasure in doing things: not at all Feeling down, depressed, or hopeless: not at all Meds Home Medications and Allergies Home Medications ?Medication ?Instructions ?Recorded ?Confirmed ?Type amlodipine 2.5 mg tablet 2.5 mg PO DAILY 01/28/24 04/27/25 History clonazepam 0.5 mg tablet 0.5 mg PO DAILY 01/28/24 04/27/25 History escitalopram oxalate 10 mg tablet 10 mg PO DAILY 01/28/24 04/27/25 History (Lexapro) nabumetone 500 mg tablet 500 mg PO BID 01/28/24 04/27/25 History omeprazole 20 mg capsule,delayed 20 mg PO DAILY 01/28/24 04/27/25 History release tamsulosin 0.4 mg capsule (Flomax) 0.4 mg PO DAILY 01/28/24 04/27/25 History albuterol sulfate 2.5 mg/3 mL 2.5 mg inhalation Q4H PRN 12/05/24 04/27/25 History (0.083 %) solution for nebulization shortness of breath or wheezing fluticasone 250 mcg-salmeterol 50 1 inh inhalation BID 12/05/24 04/27/25 History mcg/dose blistr powdr for inhalation BLACK ELDERBERRY 03/30/25 History ascorbic acid (vitamin C) 1,000 mg 1 g PO DAILY 03/30/25 04/27/25 History tablet (Vitamin C) aspirin 81 mg tablet 81 mg PO DAILY 03/30/25 04/27/25 History baclofen 10 mg tablet 10 mg PO BEDTIME 03/30/25 04/27/25 History calcium phosphate,dibasic 77 tab PO DAILY 03/30/25 History mg-vitamin D3 400 unit tablet doxycycline hyclate 100 mg capsule 100 mg PO 03/30/25 History fexofenadine 180 mg tablet 180 mg PO 03/30/25 History montelukast 10 mg tablet 10 mg PO DAILY 03/30/25 04/27/25 History multivitamin 1 tab PO DAILY 03/30/25 03/30/25 History Allergies Allergy/AdvReac Type Severity Reaction Status Date / Time bacitracin AdvReac Mild Rash Verified 04/27/25 12:13 Exam Constitutional Documenting provider has reviewed patient's vital signs: yes Common normals: no apparent distress, oriented x3 and alert General appearance: cooperative HENMT Common normals: normocephalic, hearing grossly normal bilaterally and moist oral mucous membranes Head and scalp: normocephalic Eye Common normals: PERRL Pupil: PERRL Neck & C-Spine Common normals: full ROM General: normal visual inspection Chest Common normals: inspection of chest normal Respiratory Common normals: normal respiratory effort, no retractions and no use of accessory muscles Back & Pelvis Lumbar spine/lower back: ROM limited, pain with ROM and lumbar spinal tenderness Sacroiliac joints: SI joint(s) abnormal Other: left sij positive natasha(patricks), gaenslens, thigh thrust, compression test strength 5/5 in BLE, sensation intact BLE Neuro Common normals: oriented x3 Sensorium/orientation: alert Psych Common normals: mental status grossly normal, thought process normal, cooperative, affect normal, speech normal and activity/motor behavior normal Speech: normal speech Thought process: normal thought process Results Additional Findings Additional findings: If on a controlled substance or opioids, I have checked an [place] report on this patient and there are no aberrancies noted in the prescribing history.??If on a controlled substance or opioid a drug screen was completed and reviewed within the last year, and if there has not been a drug screen completed we ordered one today to monitor higher risk, state monitored pain medication use. As part of providing excellent, safe, comprehensive care, the following was completed at our patient's visit: 1. A medication reconciliation and review to ensure accurate knowledge of current/active medications, including asking our patients to inform us about any zvmj-oyd-quoepca medications or herbal remedies/nutritional supplements/alternative remedies. 2. A review to specifically ensure our patients have had annual screening for screening for depression, screening for tobacco use, and screening for unhealthy alcohol use. For concerning screenings had a discussion with the patient, provided patient education, and recommended follow-up with primary care provider when appropriate. If patient noted with a risk of falling, they received education on strength, gait, and balance training to prevent future risk of falling. Portions of this note may have been carried over from the previous visit and updated as appropriate. Please note this office utilizes paper charting in addition to the electronic medical record. A list of current medications, vitals, and PMH is available there as the clinical staff outside of myself do not have access to [employer] charting during the clinic day operations. As part of providing quality comprehensive care the current medications, vitals, and PMH were reviewed in the paper chart. Assessment and Plan Assessment and Plan (1) Sacroiliitis: (2) Lumbar stenosis with neurogenic claudication: (3) Lumbar spondylosis: Plan The patient has had over 3 months of moderate to severe low back and left SIJ pain with functional impairment and inadequate response to conservative care including NSAIDS (unless there are contraindication such as concurrent blood thinners), multiple oral or topical pain medications, and home exercise program/physical therapy.? Patient has completed >6 weeks of guided home exercise program and/or formal physical therapy program without relief of their symptoms.? The Oswestry Disability Index was completed, and the patient scored a 31%.? repeat left SIJ injection under fluoroscopy, prior injection provided >50% improvement greater than 3 months but has since worn off refer back to PT per pt request for chronic low back pain, will also order aquatherapy continue HEP as tolerated, continue massage therapy PRN. can trial dry needling pt previously did not want to undergo any procedures with IV sedation, is interested in reconsidering scs trial. handout provided today f/u after injection
== END 2025-08-05 11:02 | disposition home or self-care (01) ==
LOC: PM 11:02
PROVIDERS: PCP Internal Medicine; Visit Provider Nurse Practitioner
DX: M46.1 Sacroiliitis, not elsewhere classified (principal); M48.062 Spinal stenosis, lumbar region with neurogenic claudication; M47.816 Spondylosis without myelopathy or radiculopathy, lumbar region
CPT/HCPCS: G0463

== ENCOUNTER 2025-08-10 09:29 | Day surgery (SDC) | payer MEDICARE, OTHER, SELFPAY ==
--- OUTSIDE RECORDS SUMMARY | 2025-07-30 08:40 | XMS_ITS | Encounter Summary ---
Author Organization [facility] Address [address] [place] [address] Care Team Providers Care Travel Registered Nurse Oncology Name Role Phone Cecilio Benjamin DO Primary Care Provider [phone] Reason for Visit * ReasonCommentsToenail Care Encounter Details DateTypeDepartmentCare Team (Latest Contact Info)Nswiolccvaa59/11/2025 8:40 AM ESTOffice Visit [facility] [address] [facility] [address] [place] [address] Yasmany Daugherty DPM [address] [facility] [address] [place] [address] Xerosis cutis (Primary Dx); Pain due to onychomycosis of toenails of both feet Social History Tobacco UseTypesPacks/DayYears UsedDateSmoking Tobacco: NeverSmokeless Tobacco: Never Tobacco Cessation:Counseling Given: Yes Sex and Gender InformationValueDate RecordedSex Assigned at BirthNot on file Legal XwcIfsk9011/01/2022 7:36 PM EDTGender IdentityNot on fileSexual Orientation Not on filedocumented as of this encounter Last Filed Vital Signs Vital SignReadingTime TakenCommentsBlood Pressure--Pulse--Temperature-- Respiratory Grtw356109/30/2024 8:57 AM ESTOxygen Saturation--Inhaled Oxygen Concentration--Ljhzqo11.6 kg (180 lb)07/30/2025 8:57 AM SQNNnbpav944.7 cm (5' 8 )07/30/2025 8:57 AM ESTBody Mass Index27.37109/30/2024 8:57 AM ESTdocumented in this encounter Progress Notes * Yasmany Daugherty DPM - 07/30/2025 8:40 AM EST Patient: Ruperto Thorpe : 1940 PCP: Cecilio Benjamin DO SUBJECTIVE This is a 85 y.o. male that presents today with a CC of elongated, thick nails. Pt states nails have been elongated and thick for many years and cause pain with ambulation in shoegear. Pt has tried previous treatment with minimal relief. Pt presents today for nail care and treatment. Pt also presents today with secondary complaints of dry scaly skin to feet. Pt states that they have not been using OTC creams and lotions with minimal relief. Allergies: Allergies[1] Past Medical History: Medical History[2] Medications: Current Medications[3] Social History: Social History Socioeconomic History Marital status: Spouse name: Not on file Number of children: Not on file Years of education: Not on file Highest education level: Not on file Occupational History Not on file Tobacco Use Smoking status: Never Smokeless tobacco: Never Substance and Sexual Activity Alcohol use: Not on file Drug use: Not on file Sexual activity: Not on file Other Topics Concern Not on file Social History Narrative Not on file Social Drivers of Health Financial Resource Strain: Not on file Food Insecurity: Not on file Transportation Needs: Not on file Physical Activity: Not on file Stress: Not on file Social Connections: Not on file Intimate Partner Violence: Unknown (10/11/2023) Received from [facility] [place] [employer] Environment Fear of Current or Ex-Partner: Not on file Emotionally Abused: Not on file Physically Abused: Not on file Sexually Abused: Not on file Physically or Sexually Abused: Not on file Housing Stability: Not on file ROS: General: denies fever, chills, fatigue, malaise Gastrointestinal: denies abdominal pain, ulcers, or changes in appetite or bowel habits Musculoskeletal: Positive generalized arthritis to joints and denies loss of strength. Positive history of hip replacement Cardiovascular: denies CP, palpitations, irregular rhythms OBJECTIVE LE EXAM: DERM: Elongated thick yellow crumbly nails digits 1 through 10. diminished hair growth b/l feet. Dry scaly and flaky skin to bilateral feet and ankles VASC: positive DP and negative PT pedal pulses NEURO: Gross sensation intact to bilateral feet ORTHO: Positive pain on palpation to toenails of the left 1,2,3,4,5 toes and right 1,2,3,4,5 toes ASSESSMENT 1. Xerosis cutis 2. Pain due to onychomycosis of toenails of both feet PLAN Discussed proper foot care with patient today. Debride nails in length and thickness digits 1 through 10 Patient education on condition and treatment of condition. Discussed application of hydrating cream to feet twice daily and to not place between toes and to apply prior to bed in evenings and to observe for any redness to feet or red streaks or drainage to feet. Patient to consider estr-dnz-ytvorrp treatments for medication or use of urea cream and prescription today was offered for Lac-Hydrin cream. Yasmany Daugherty DPM [1] Not on File [2] Past Medical History: Diagnosis Date Hypertension [3] No current outpatient medications on file. documented in this encounter Plan of Treatment DateTypeDepartmentCare Team (Latest Contact Info)Ddlsqkengdz26/19/2026 9:40 AM ESTProcedure Visit [facility] [address] [facility] [address] [place] [address] Yasmany Daugherty DPM [address] [address] documented as of this encounter Visit Diagnoses Diagnosis Xerosis cutis- Primary Other specified disease of sebaceous glands Pain due to onychomycosis of toenails of both feet documented in this encounter Care Teams Team MemberRelationshipSpecialtyStart DateEnd Date Cecilio Benjamin, [address] [place] [id number] PCP - GeneralInternal Pwypqswm57/11/25documented as of this encounter
--- OUTSIDE RECORDS SUMMARY | 2025-08-10 09:32 | XMS_ITS | Encounter Summary ---
Author Organization [facility] Address [address] [place] [address] Care Team Providers Care Casting Machine Set Up Operator Name Role Phone Cecilio Benjamin DO Primary Care Provider [phone] Encounter Details DateTypeDepartmentCare Team (Latest Contact Info)Sudpmhobyym07/11/2025amboo flowsheet [facility] [address] [facility] [address] [place] [address] Yasmany Daugherty DPM [address] [address] Social History Tobacco UseTypesPacks/DayYears UsedDateSmoking Tobacco: NeverSmokeless Tobacco: NeverSex and Gender InformationValueDate RecordedSex Assigned at BirthNot on fileLegal YbuAcuu2511/01/2022 7:36 PM EDTGender IdentityNot on fileSexual OrientationNot on filedocumented as of this encounter Plan of Treatment DateTypeDepartmentCare Team (Latest Contact Info)Xilveevjtpa23/19/2026 9:40 AM ESTProcedure Visit [facility] [address] [address] [place] [address] Yasmany Daugherty DPM [address] [address] documented as of this encounter Visit Diagnoses Not on filedocumented in this encounter Care Teams Team MemberRelationshipSpecialtyStart DateEnd Date Cecilio Benjamin DO [address] [facility] [place] [address] PCP - GeneralInternal Ssctfoyx63/11/25documented as of this encounter
--- OUTSIDE RECORDS SUMMARY | 2025-08-10 09:32 | XMS_ITS | Clinical Summary ---
Author Organization [facility] Address [facility] [place] [address] Care Team Providers Care Algorithm Design Engineer Name Role Phone Cecilio Benjamin DO Primary Care Provider [phone] Allergies Active AllergyReactionsCriticalityNoted SlmyIuxnybsvAykctuaivhTeqelwn63/23/2014 Medications MedicationSigDispense QuantityRefillsLast FilledStart DateEnd DateStatus Multivitamin [...] (10/30/2017): Added automatically from request for surgery [id number] Complete tear of right rotator cuff05/17/2017 Overview (05/17/2017): Added automatically from request for surgery [id number] Incomplete tear of right rotator cuff01/11/2017Pain, upper back09/29/2013nxiety 09/11/2013Impingement syndrome, ywxrkujd25/23/2014Cubital tunnel syndrome 09/11/2013Status post cervical spinal kkofpu6909/11/2013Multiple allergies Overview (09/11/2013): soap, chemicals perfumes AsthmaGERD (gastroesophageal reflux disease)JACI (obstructive sleep apnea)BPH (benign prostatic hyperplasia) Family History Medical HistoryRelationCommentskidney failureFatherStrokeMotherRelationStatus CommentsBrotherDeceasedFatherDeceasedMotherDeceased Social History Tobacco UseTypesPacks/DayYears UsedDateSmoking Tobacco: NeverSmokeless Tobacco: Never Tobacco Cessation:Counseling Given: No Alcohol UseStandard Drinks/WeekCommentsYes0 (1 standard drink = 0.6 oz pure alcohol)Katie's in coffeePHQ-2AnswerDate RecordedPHQ-2 pshdl483rea Deprivation IndexAnswerDate RecordedNational Score (1-100), lower number is lower qufm494503/15/2023State Score (1-10), lower number is lower hbta301 Data from: https://www.neighborhoodatlas.medicine.[facility].edu/. Last address used for d[address] [place] [address]/15/2023Sex and Gender InformationValueDate RecordedSex Assigned at BirthNot on fileLegal QdaKvqm1909/04/2013 2:49 PM EST Gender IdentityNot on fileSexual OrientationNot on fileOccupationIndustryJob Start DateJob End DateretiredNot on fileNot on fileNot on file Last Filed Vital Signs Vital SignReadingTime TakenCommentsBlood Idcwskuv977/7807 9:45 AM EDT Amlyj378003/15/2023 9:45 AM AUZSequncwrxtz38.7 ??C (98.1 ??F)03/15/2023 9:15 AM EDTRespiratory Hugr716003/15/2023 9:45 AM EDTOxygen Woeefjslfu76%03/15/2023 9:45 AM EDTInhaled Oxygen Concentration--Ghsemq00.5 kg (184 lb)05/09/2021 12:00 PM EDTself vqatreRvgxbg857.9 cm (5' 6.5 )05/09/2021 12:00 PM EDTBody Mass Index 29.2509 12:00 PM EDT Plan of Treatment Health MaintenanceDue DateLast DoneCommentsAnxiety Lxrhcyqys19/08/1959Depression Museecixf81/08/1959RSV Vaccine (1 - 1-dose 75+ series)2016Diabetes Lwkluicww89, 01/01/2018, 12/11/2017, Additional history exists Advance Directive Xdhrkjyooe59/01/2025Covid-19 Vaccine ( season) /07/2022, 07/25/2021, 10/25/2020, Additional history existsInfluenza Vaccine (#1)/, 05/02/2019, 04/30/2018, Additional history existsDTaP,Tdap,Td Vaccine (2 - Td or Tdap)9001/03/2019Pneumococcal Vaccine: 50+Qpbbqrdxc51/08/2019, 08/30/2016, 03/06/2015Shingrix VaccineCompleted 05/03/2021, 01/28/2021, 05/31/2016, Additional history exists Medical Devices ImplantedTypeAreaManufacturerDevice IdentifierShelf Expiration DateModel / Serial / LotAnchor Corkscrew Fiberwire Tigerwire 5.5mm 2 Full Thread Biocomposite 14.7 - [id number] [facility] - Shoulder [employer] INC12/17/[id number] / / [id number] Swivelock Tenodesis 8mm Biocomposite 19.5mm Suture [place] Eyelet - [id number] Implanted:Qty: 1 [facility]29/2017 [facility]Right: Bone - Shoulder [employer]06/19/[id number] / / [id number] 56mm E Hemispherical Tritanium Acetabular Primary Rim Cluster Hole - [id number] Implanted:01/01/2018 at [facility] (Quantity not on file)Joint - HipRight: Bone - HipSTRY-[facility] ROWONPTUQGR13/17/[id number] / [id number] / [id number] Trident 40mm 0d E X3 Acetabular Hip - [id number] Implanted:01/01/2018 at [facility] (Quantity not on file)Joint - HipRight: Bone - HipSTRY-HOW XQGGVZWAHZK40/05/[id number] / [id number] / [id number] 40mm [place] Biolox Delta Tritanium Femoral Hip - [id number] Implanted:01/01/2018 at [facility] (Quantity not on file)Joint - HipRight: Bone - HipSTRY-HOW NBWOMDLFRHS48/07/[id number] / / [id number] Accolade Ii 6 132d Femoral - [id number] Implanted:01/01/2018 at [facility] (Quantity not on file)Joint - HipRight: Bone - HipSTRY-HOW HUEAZSJPNDO66/10/[id number] / [id number] / [id number] V40 +0mm Offset [place] Taper Titanium Adapter Hip - [id number] Implanted:01/01/2018 at [facility] (Quantity not on file)Joint - HipRight: Bone - HipSTRY-[facility] MKWOTFABPPY20/09/[id number] / / [id number] Trident Secur-Fit Torx 6.5mm Titanium 20mm Bone Sterile Acetabular - [id number] Implanted:01/01/2018 at [facility] (Quantity not on file)ScrewRight: Bone - HipSCHI [facility] SLZHOCQIMOL45/25/[id number] / [id number] / [id number] Procedures Procedure NamePriorityDate/TimeAssociated DiagnosisCommentsBASIC METABOLIC PANEL (EU,FV,HL,NATALI,MM,SP)ASAP01/02/2018 4:32 AM EDT from Last 3 Months or Most Recently Relevant to Health Maintenance Results * (ABNORMAL) BASIC METABOLIC PANEL (AK,AV,EU,FV,HL,NATALI,MM,SP) (01/02/2018 4:32 AM EDT)ComponentValueRef RangeTest MethodAnalysis TimePerformed AtPathologist JxrqpnyoqJnrigfo940(H)74 - 99 mg/dL01/02/2018 6:30 AM [facility]ORYComment: The [place] Diabetes Association (ADA) provides guidance for cutoff [...] Standards of Medical Care in Diabetes 2016, [place] Diabetes Association. Diabetes Care. 2016.39(Suppl 1). ULR422 - 24 mg/dL01/02/2018 6:30 AM [facility]OR[facility]ORYCreatinine1.22 0.73 - 1.22 mg/dL01/02/2018 6:30 AM [facility] MMNZARLVXJFefhyd731546 - 144 mmol/L01/02/2018 6:30 AM [facility]ORYPotassium4.43.7 - 5.1 mmol/L01/02/2018 6:30 AM [facility] WQXHYHKIAXQlhdffzb88387 - 105 mmol/L 01/02/2018 6:30 AM [facility] IWYNCAWBJBUT17364 - 30 mmol/L01/02/2018 6:30 AM [facility] LABORATORYAnion Ztn255 - 18 mmol/L01/02/2018 6:30 AM [facility] LABORATORYCalcium8.1(L)8.6 - 10.0 mg/dL01/02/2018 6:30 AM [facility]OR[facility]ORYeGFR->60001/02/2018 6:30 AM [facility]ORATORYeGFR-All Other Races58.01/02/2018 6:30 AM [facility] Comment: eGFR (Estimated GFR) [...] AM EDT Narrative Authorizing ProviderResult TypeResult StatusTansammie ALEXIS-[facility] REGIONALFinal ResultPerforming OrganizationAddressCity/State/ZIP CodePhone Number [facility] [address] [facility] [place] [address], [place] from Last 3 Months or Most Recently Relevant to Health Maintenance Insurance Care Teams Team MemberRelationshipSpecialtyStart DateEnd Cecilio Benjamin DO PCP - GeneralInternal Medicine09/04/13
--- OUTSIDE RECORDS SUMMARY | 2025-08-10 09:32 | XMS_ITS | Clinical Summary ---
Author Organization [facility] Address [address] [place] [address] Care Team Providers Care Foreign Language Interpreter Name Role Phone Unavailable Primary Care Provider Unavailabl e Social History Tobacco UseTypesPacks/DayYears UsedDateSmoking Tobacco: Never AssessedUT Safety & EnvironmentAnswerDate RecordedFear of Current or Ex-PartnerNot on file 10/11/2023Emotionally AbusedNot on file10/11/2023hysically AbusedNot on file 10/11/2023Sexually AbusedNot on file4Physically or Sexually AbusedNot on file10/11/2023Sex and Gender InformationValueDate RecordedSex Assigned at BirthNot on fileLegal ZokHdpm4402/16/2022 12:43 AM EDTGender IdentityNot on file Sexual OrientationNot on file Plan of Treatment Health MaintenanceDue DateLast DoneCommentsMedicare Annual Wellness (AWV) 1Depression Wewssfomp31/08/1952Pneumococcal Vaccine: 50+ Years (1 of 2 - PCV)1960Adult Hlcvyun8407/27/1963Zoster Vaccines (1 of 2)1991Fall Risk Lbsjirqoa25/08/2006COVID-19 Vaccine ( - season)2025Influenza Vaccine (#1)2025HIB VaccinesAged [...]
--- OUTSIDE RECORDS SUMMARY | 2025-08-10 09:32 | XMS_ITS | Encounter Summary ---
Author Organization [facility] Address [address] [place] [address] Care Team Providers Care Knot Tying Operator Name Role Phone Cecilio Benjamin DO Primary Care Provider [phone] Encounter Details DateTypeDepartmentCare Team (Latest Contact Info)Sngruufcnil40/11/2025Travel Social History Tobacco UseTypesPacks/DayYears UsedDateSmoking Tobacco: NeverSmokeless Tobacco: NeverSex and Gender InformationValueDate RecordedSex Assigned at BirthNot on fileLegal GhbZyuv3411/01/2022 7:36 PM EDTGender IdentityNot on fileSexual OrientationNot on filedocumented as of this encounter Plan of Treatment DateTypeDepartmentCare Team (Latest Contact Info)Bjjuinrjlym77/19/2026 9:40 AM ESTProcedure Visit [facility] [address] [facility] [address] [place] [address] Yasmany Daugherty, DPM [address] [facility] [address] [place] [address] documented as of this encounter Visit Diagnoses Not on filedocumented in this encounter Care Teams Team MemberRelationshipSpecialtyStart DateEnd Date Cecilio Benjamin DO [address] [facility] [place] [address] PCP - GeneralInternal Eudtcosa46/11/25documented as of this encounter
--- OUTSIDE RECORDS SUMMARY | 2025-08-10 09:32 | XMS_ITS | Clinical Summary ---
Author Organization [facility] Address [address] [place] [address] Care Team Providers Care Commercial Loan Collection Officer Name Role Phone Cecilio Benjamin DO Primary Care Provider [phone] Medications No known medications Active Problems No known active problems Encounters DateTypeDepartmentCare PsxtRiqmbrdyokl52/11/2025 8:40 AM ESTOffice Visit [facility] [address] [place] [address] Yasmany Daugherty DPM Xerosis cutis (Primary Dx); Pain due to onychomycosis of toenails of both feet07/30/2025amboo flowsheet [facility] [address] [place] [address] Yasmany Daugherty DPM 07/30/2025Travelfrom Last 3 Months Social History Tobacco UseTypesPacks/DayYears UsedDateSmoking Tobacco: NeverSmokeless Tobacco: Never Tobacco Cessation:Counseling Given: Yes Sex and Gender InformationValueDate RecordedSex Assigned at BirthNot on file Legal EnfUuif9011/01/2022 7:36 PM EDTGender IdentityNot on fileSexual Orientation Not on file Last Filed Vital Signs Vital SignReadingTime TakenCommentsBlood Pressure--Pulse--Temperature-- Respiratory Hhkx219809/30/2024 8:57 AM ESTOxygen Saturation--Inhaled Oxygen Concentration--Cwtapo56.6 kg (180 lb)07/30/2025 8:57 AM CJFCdavig718.7 cm (5' 8 )07/30/2025 8:57 AM ESTBody Mass Index27.37109/30/2024 8:57 AM EST Plan of Treatment DateTypeDepartmentCare Team (Latest Contact Info)Zicovgszwwi71/19/2026 9:40 AM ESTProcedure Visit [facility] [address] [facility] [address] [place] [address] Yasmany Daugherty, DPJill [address] [facility] [address] [place] [address] Health MaintenanceDue DateLast DoneCommentsCOVID-19 Vaccine ( season) 5005/14/2024, 05/30/2023, 05/31/2022, Additional history exists Pneumococcal Vaccine: 65+ XuczkJfagjefbf37/08/2019, 08/30/2016, 03/06/2015 Influenza GoihnmmGyapqflbu55/24/2025, 05/28/2024, 05/30/2023, Additional history exists Insurance * Guarantor: Elkin Thorpe TypeRelation to PatientDate of BirthPhone Billing AddressPersonal/HbywoxMcxh1940 [address] [address] Care Teams Team MemberRelationshipSpecialtyStart DateEnd Date Cecilio Benjamin DO [address] [facility] [place] [address] PCP - GeneralInternal Jfqpesip87/11/25
[2025-08-10 09:53] VITALS: BP 145/77; PULSE 72; TEMP 36.5; O2SAT 98
[2025-08-10 10:27] VITALS: PULSE 71; O2SAT 97
[2025-08-10 10:28] VITALS: BP 173/78; BP 179/84; PULSE 68; O2SAT 97
[2025-08-10] MEDS: IOHEXOL 240 MG/ML - 10 ML VIAL 12 MG INJ (10:29)
[2025-08-10] MEDS: BUPIVACAINE HCL 0.25% PF 25 MG/10 ML VIAL 2 ML INJ (10:29)
[2025-08-10] MEDS: METHYLPREDNISOLONE ACETATE 40 MG/ML VIAL INJ (10:29)
[2025-08-10] MEDS: LIDOCAINE HCL 2% 400 MG/20 ML MDV INJ (10:29)
--- NOTE | 2025-08-10 10:30 | W.PM.PROCNOT ---
Date of procedure: 08/10/25 Pre-op diagnosis: Pain due to left sacroiliitis Post-op diagnosis: same as pre-op Procedure: Procedure: Left sacroiliac joint injection Medications: Bupivacaine 0.25% 4cc, depomedrol 40mg After informed consent was obtained, the patient was brought to the medical procedure unit and placed in the prone position, when a timeout was completed verifying correct patient, procedure, site, positioning, implant, and/or special equipment.? The skin overlying the area was prepped and draped in standard sterile fashion using alcohol.? A 25-gauge needle was inserted towards the left sacroiliac joint under direct fluoroscopic imaging.? Needle tip was advanced until the joint was encountered.? We instilled a total of 2 mL of solution.? Postoperatively needles were removed.? The patient tolerated the procedure well without complication.? The patient reported reduction in pain symptoms postoperatively. Anesthesia: Local Surgeon: Maddie Villalobos Pathology: none sent Condition: stable Disposition: no change
== END 2025-08-10 10:37 | disposition home or self-care (01) ==
PROVIDERS: PCP Internal Medicine; Visit Provider Anesthesiology
DX: M46.1 Sacroiliitis, not elsewhere classified (principal); G89.29 Other chronic pain
CPT/HCPCS: 27096; J0665; J1010; Q9966

== ENCOUNTER 2025-08-19 08:15 | Outpatient (OUT) | payer MEDICARE, OTHER, SELFPAY ==
--- OUTSIDE RECORDS SUMMARY | 2025-08-19 08:18 | XMS_ITS | CCD ---
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 ulnar nerve, left upper limb]ChronicOther nervous system disorders (4 sources)Ulnar nerve entrapment at elbow; Translations: [Lesion of ulnar nerve, unspecified upper limb]Onset: [id number] nervous system disorders (10 sources)Lesion of ulnar nerve, left upper limb; 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]64-21-5393XbshqmsEybkt non-traumatic joint disorders (4 sources)Effusion, left knee; Translations: [EFFUSION LEFT KNEE]Onset: 15-18-5518ZvbqfrtjDjrns non-traumatic joint disorders (1 source)Pain in left kneeEpisodicOther non-traumatic joint disorders (2 sources)Pain in wrist; Translations: [Pain in left wrist]98-63-0641Cvwvzwkx Other non-traumatic joint disorders (2 sources)Pain in left wrist; Translations: [Pain in joint, forearm]01-20-2025 EpisodicOther non-traumatic joint disorders (15 sources)Pain of left wrist; Translations: [Pain in left wrist]01-28-2025 EpisodicOther nutritional; endocrine; and metabolic disorders (13 sources)Weight decreased; Translations: [Abnormal weight loss]05-28-2024 EpisodicOther screening for suspected conditions (not mental disorders or infectious disease) (8 sources)Encounter for screening for malignant neoplasm of prostate; Translations: [Patient encounter status]EpisodicComment on above:PSA: 2.83 - 02/2021, 3.81 - 02/2025Other skin disorders (7 sources)Localized swelling of left lower leg; Translations: [Localized swelling, mass and lump, left lower limb]EpisodicOther skin disorders (1 source)Xerosis cutisEpisodicOther upper respiratory disease (4 sources)Allergic rhinitis; Translations: [Allergic rhinitis, unspecified] 64-14-0088XwtyjpmWbwsrawi codes; unclassified (20 sources)Obstructive sleep apnea syndrome; Translations: [Obstructive sleep apnea (adult) (pediatric)]30-69-4614JjhupysFhyybhal codes; unclassified (12 sources)Obstructive sleep apnea (adult) (pediatric); Translations: [Obstructive sleep apnea (adult)(pediatric)]ChronicResidual codes; unclassified (1 source)Acquired absence of other specified parts of digestive tract; Translations: [ACQ ABSENCE OTH PART DIGESTV TRACT]Onset: 49-63-9493Ytrunxjw Retinal detachments; defects; vascular occlusion; and retinopathy (20 sources)Hemorrhage of right retina; Translations: [Retinal hemorrhage, right eye]ChronicSkin and subcutaneous tissue infections (14 sources)Cellulitis of right lower limb; Translations: [Cellulitis of leg, excluding foot]EpisodicSpondylosis; intervertebral disc disorders; other back problems (20 sources)Lumbar spondylosis; Translations: [Spondylosis without myelopathy or radiculopathy, lumbar region]ChronicSprains and strains (1 source)Strain of unspecified muscle(s) and tendon(s) at lower leg level, left leg, initial encounterEpisodicSuperficial injury; contusion (20 sources)Contusion of left foot; Translations: [Contusion of left foot, subsequent encounter]EpisodicUnclassified (1 source)CONTACT W/AND (SUSP) EXPOS COVID-19; Translations: [CONTACT W/AND (SUSP) EXPOS COVID-19]Onset: 08-15-2022 Past or Other Problems Problem ClassificationProblemDateDocumented DateEpisodic/ChronicChronic kidney disease (8 sources)Chronic kidney disease; Translations: [CHRONIC KIDNEY DISEASE STAGE 3A]Onset: 88-42-4889Gyacouv obstructive pulmonary disease and bronchiectasis (1 source)Bronchitis, not specified as acute or chronic; Translations: [BRONCHITIS NOT SPEC ACUTE/CHRON]Onset: 78-84-3242GaarminuFdjaqeqysx disorders (13 sources)Esophageal disorders; Translations: [Gastroesophageal reflux disease with esophagitis without hemorrhage]Other connective tissue disease (4 sources)Impingement syndrome of shoulder region; Translations: [Impingement syndrome of unspecified shoulder]Onset: 242028-63-5132HzrhdewyOsqlr connective tissue disease (4 sources)History of cervical spine fusion; Translations: [Arthrodesis status] Onset: 218747-89-0621WoaboccdWvgrb connective tissue disease (4 sources)Partial thickness rotator cuff tear; Translations: [Incomplete rotator cuff tear or rupture of right shoulder, not specified as traumatic] Onset: 443705-06-3098VgsqshjtPqclz connective tissue disease (4 sources)Full thickness rotator cuff tear; Translations: [Complete rotator cuff tear or rupture of right shoulder, not specified as traumatic]Onset: 159507-43-3349EliguipzCvvwugdmwug; intervertebral disc disorders; other back problems (17 sources)Lumbar radiculopathy; Translations: [Radiculopathy, lumbar region] Onset: 03-35-9313Atceeuml Results Test NameValueInterpretationReference RangeFacilityX-ray reportOrdered By: Jerry Aviles on 27-47-2599Ugqck reportFIRCLEVELAND CLINIC L[facility] [address] [place] [address] XRay Report Signed Patient: Neisha Thorpe MR#: [id number] : 1940 Acct:[id number] Age/Sex: 84 / M ADM Date: 5 [place] [facility] [place]: Type[place] [facility] Attending Dr: Mil Sevilla MD Copies to: Mil Sevilla MD~ Ordering Provider: Mil Sevilla MD Date of Service: 03/31/25 XR/XR [...] Aviles M.D. 03/31/2025 12:34 PM Dictation Location: [facility] Transcribed By: [facility] 03/31/25 1234 Dictated By: Jerry Aviles DO 03/31/25 1233 Signed By: 03/31/25 1234 [facility] HospitalXR wrist LT 2Von 54-03-0128BX wrist LT 2V [facility] [address] [place] [address] XRay Report Signed Patient: Neisha Thorpe MR#: [id number] 5 : 1940 Acct:[id number] Age/Sex: 84 / M ADM Date: 03/31/25 [place] [facility] [place]: Type[facility] Attending Dr: Mil Sevilla MD Copies to: Mil Sevilla MD Ordering Provider: Mil Sevilla MD Date of Service: 03/31/25 XR/XR [...] 12:34 PM Dictation Location: [facility]-20 Transcribed By: [facility] 03/31/25 1234 Dictated By: Jerry Aviles DO 03/31/25 1233 Signed By: 03/31/25 1234[facility] Physician GroupBasophils Auto (Bld) [#/Vol] Ordered By: Alyx Vargas on 37-07-6352Kvhhomgbl (Bld) [#/Vol]0.0 10 3/uL 0.0-0.1FWyandot Memorial HospitalBasophils/100 WBC Auto (Bld)Ordered By: Alyx Vargas on 59-93-4006Rtijlpmfn/100 WBC (Bld)0.4 %0.2-2.0[facility] HospitalEosinophils/100 WBC Auto (Bld)Ordered By: Alyx Vargas on 59-13-3960Nexybzhzyzr/100 WBC (Bld)6.9 %0.9-7.0[facility] HospitalErythrocyte distribution width Auto (RBC) [Ratio]Ordered By: Alyx Vargas on 05-04-0426Reommajgymj distribution width (RBC) [Ratio]11.9 %11.0-15.0 [facility] HospitalEstimated glomerular filtration rate (GFR) non- AmericanOrdered By: Alyx Vargas on 70-23-4455MJV/1.73 sq M.predicted among non-blacks MDRD (S/P/Bld) [Vol rate/Area]50 mL/min/{1.73_m2}Low>=60 mL/min/1.73m 2FWyandot Memorial HospitalHematocrit Auto (Bld) [Volume fraction]Ordered By: Alyx Vargas on 57-76-9408Ippeymcerf (Bld) [Volume fraction]40.7 %Low42.0-54.0[facility] HospitalHemoglobin [Mass/volume] in BloodOrdered By: Alyx Vargas on 53-42-8876Qkyzkmdgjy (Bld) [Mass/Vol]14.1 g/dL14.0-18.0[facility] HospitalLaboratory - Chemistry and Chemistry - challengeOrdered By: Alyx Vargas on 03-21-2025 Calcium [Mass/Vol]9.0 mg/dL8.5-10.1FWyandot Memorial HospitalChloride [Moles/Vol]103 mmol/Q61-755VephikhbsMercy Health Willard HospitalCO2 [Moles/Vol]32.4 mmol/LHigh21.0-32.0[facility] HospitalCreatinine [Mass/Vol]1.37 mg/dLHigh0.70-1.30[facility] HospitalGFR/1.73 sq M.predicted MDRD (S/P/Bld) [Vol rate/Area]mL/min/{1.73_m2}>=60 mL/min/1.73m 2FWyandot Memorial HospitalGlucose [Mass/Vol]109 mg/vUMgau15-995CnybnhmbxMercy Health Willard HospitalPotassium [Moles/Vol]4.4 mmol/L3.5-5.1FWyandot Memorial Hospital Sodium [Moles/Vol]140 mmol/D229-031BktkmnlhbMercy Health Willard HospitalUrea nitrogen [Mass/Vol]19.0 mg/dLHigh7.0-18.0[facility] HospitalUrea nitrogen/Creatinine [Mass ratio]13.9 mg/mgMercy Health Willard Hospital Laboratory - Hematology and Cell countsOrdered By: Alyx Vargas on 03-21-2025 Immature granulocytes/100 WBC (Bld)0.3 %0.0-0.5FWyandot Memorial Hospital Leukocytes [#/volume] corrected for nucleated erythrocytes in Blood by Automated counOrdered By: Alyx Vargas on 07-59-4859RRG corrected for nucl RBC Auto (Bld) [#/Vol]8.0 10 3/uL4.0-11.0[facility] HospitalLymphocytes Auto (Bld) [#/Vol]Ordered By: Alyx Vargas on 15-86-1688Iqffjfmyzwd (Bld) [#/Vol]1.2 10 3/uL1.2-3.8[facility] HospitalLymphocytes/100 WBC Auto (Bld)Ordered By: Alyx Vargas on 07-42-8895Jycutiwfljn/100 WBC (Bld)15.5 %Low20.5-60.0[facility] HospitalH Auto (RBC) [Entitic mass] Ordered By: Alyx Vargas on 39-03-4606QHV (RBC) [Entitic mass]32.9 pg 25.9-34.0[facility] HospitalMCHC Auto (RBC) [Mass/Vol]Ordered By: Alyx Vargas on 06-48-0727QUIE (RBC) [Mass/Vol]34.6 g/dL29.9-35.2FWyandot Memorial HospitalMCV Auto (RBC) [Entitic vol]Ordered By: Alyx Vargas on 01-62-7825ROP (RBC) [Entitic vol]94.9 gXQfdq24.0-94.0[facility] HospitalMonocytes Auto (Bld) [#/Vol]Ordered By: Alyx Vargas on 22-96-5099Glvzzyjtq (Bld) [#/Vol]0.8 10 3/uL0.3-0.8[facility] HospitalMonocytes/100 WBC Auto (Bld)Ordered By: Alyx Vargas on 03-21-2025 Monocytes/100 WBC (Bld)9.4 %1.7-12.0[facility] HospitalNeutrophils Auto (Bld) [#/Vol]Ordered By: Alyx Vargas on 58-79-9127Frkeclxaufz (Bld) [#/Vol]5.4 10 3/uL1.4-6.5FWyandot Memorial HospitalNeutrophils/100 WBC Auto (Bld)Ordered By: Alyx Vargas on 87-84-5582Trpkxydyych/100 WBC (Bld)67.5 %43.0-75.0[facility] HospitalNo Panel InformationOrdered By: Alyx Vargas on 00-89-3023Lnssgvdrurx # (Auto)0.6 10 3/uL0.0-0.7FWyandot Memorial HospitalImmature Granulocyte # (Auto)0.02 10 3/uL0.00-0.03 [facility] HospitalPlatelet mean volume Auto (Bld) [Entitic vol] Ordered By: Alyx Vargas on 67-89-0023Lqllulfr mean volume (Bld) [Entitic vol]10.5 fL9.5-13.5FWyandot Memorial HospitalPlatelets Auto (Bld) [#/Vol] Ordered By: Alyx Vargas on 88-50-1338Riaymjuao (Bld) [#/Vol]136 10 3/uLLow 150-450Mer[facility] HospitalRBC Auto (Bld) [#/Vol]Ordered By: Alyx Vargas on 19-01-6977OUC (Bld) [#/Vol]4.29 10 6/uLLow4.70-6.10[facility] Hospitalerum or plasma anion gap determinationOrdered By: Alyx Vargas on 97-43-8724Euktr gap [Moles/Vol]9.0 mmol/LFWyandot Memorial HospitalBasophils Auto (Bld) [#/Vol]Ordered By: Cecilio Taylor on 01-46-4509Zbdjopgty (Bld) [#/Vol]0.1 10 3/uL0.0-0.1FWyandot Memorial HospitalBasophils/100 WBC Auto (Bld)Ordered By: Cecilio Taylor on 02-18-2025 Basophils/100 WBC (Bld)0.9 %0.2-2.0[facility] HospitalCholesterol in LDL Calc [Mass/Vol]Ordered By: Cecilio Taylor on 11-58-9824Uvstjpriaqc in LDL [Mass/Vol]138.0 mg/dLMercy Health Willard HospitalComment on above:<100 mg/dl YGKOIFQ722-526 mg/dl NEAR OR ABOVE YJPCUDQ405-618 mg/dl BORDERLINE QMVM043-554 mg/dl HIGH>190 mg/dl VERY HIGHCholesterol in VLDL Calc [Mass/Vol] Ordered By: Cecilio Taylor on 29-30-0899Nifhzlmrgib in VLDL [Mass/Vol]16.0 mg/dL [facility] HospitalEosinophils/100 WBC Auto (Bld)Ordered By: Cecilio Taylor on 22-87-9355Sberdpatbxu/100 WBC (Bld)7.3 %High0.9-7.0[facility] HospitalErythrocyte distribution width Auto (RBC) [Ratio]Ordered By: Cecilio Taylor on 46-90-4715Twlmvkehtfz distribution width (RBC) [Ratio]12.4 %11.0-15.0[facility] HospitalEstimated glomerular filtration rate (GFR) non- AmericanOrdered By: Cecilio Taylor on 49-00-5265URA/1.73 sq M.predicted among non-blacks MDRD (S/P/Bld) [Vol rate/Area]53 mL/min/{1.73_m2} Low>=60 mL/min/1.73m 2FWyandot Memorial HospitalGlobulin Calc (S) [Mass/Vol]Ordered By: Cecilio Taylor on 84-26-7071Wloufvod (S) [Mass/Vol]3.2 g/dL [facility] HospitalHematocrit Auto (Bld) [Volume fraction]Ordered By: Cecilio Taylor on 79-30-0419Verhdihudb (Bld) [Volume fraction]42.5 %42.0-54.0 [facility] HospitalHemoglobin [Mass/volume] in BloodOrdered By: Cecilio Taylor on 90-66-9898Eiptefxeex (Bld) [Mass/Vol]15.1 g/dL14.0-18.0 [facility] HospitalLaboratory - Chemistry and Chemistry - challengeOrdered By: Cecilio Taylor on 89-11-7182Eagxvin [Mass/Vol]3.6 g/dL 3.4-5.0[facility] HospitalALP [Catalytic activity/Vol]59 U/L46-116 [facility] HospitalALT [Catalytic activity/Vol]24 U/L16-63 [facility] HospitalAST [Catalytic activity/Vol]18 U/L15-37 [facility] HospitalBilirubin [Mass/Vol]0.8 mg/dL0.2-1.0[facility] HospitalCalcium [Mass/Vol]9.0 mg/dL8.5-10.1FWyandot Memorial HospitalChloride [Moles/Vol]104 mmol/C78-924KbglsnsypMercy Health Willard HospitalCholesterol [Mass/Vol]209 mg/dLHigh<=200[facility] Cholesterol in HDL [Mass/Vol]55 mg/yB11-58AlsthiyejMercy Health Willard Hospital Comment on above:> or =60 mg/dl - LOW CARDIOVASCULAR RISK<40 mg/dl - HIGH CARDIOVASCULAR RISKCO2 [Moles/Vol]29.6 mmol/L21.0-32.0[facility] HospitalCreatinine [Mass/Vol]1.29 mg/dL0.70-1.30[facility] GFR/1.73 sq M.predicted MDRD (S/P/Bld) [Vol rate/Area]mL/min/{1.73_m2}>=60 mL/min/1.73m 2FWyandot Memorial HospitalGlucose [Mass/Vol]90 mg/cL04-058 [facility] HospitalPotassium [Moles/Vol]4.5 mmol/L3.5-5.1FWyandot Memorial HospitalProtein [Mass/Vol]6.8 g/dL6.4-8.2FKettering Health Prebleodium [Moles/Vol]141 mmol/Z741-191CdgaatmjyMercy Health Willard HospitalTriglyceride [Mass/Vol]80 mg/dL<=150Mer[facility] HospitalTSH Qn1.229 m[IU]/L0.358-3.740Mer[facility] HospitalUrea nitrogen [Mass/Vol]22.0 mg/dLHigh7.0-18.0[facility] HospitalUrea nitrogen/Creatinine [Mass ratio]17.1 mg/mgMercy Health Willard Hospital Laboratory - Hematology and Cell countsOrdered By: Cecilio Taylor on 02-18-2025 Immature granulocytes/100 WBC (Bld)0.8 %High0.0-0.5FWyandot Memorial HospitalLeukocytes [#/volume] corrected for nucleated erythrocytes in Blood by Automated counOrdered By: Cecilio Taylor on 23-13-9961QLI corrected for nucl RBC Auto (Bld) [#/Vol]6.5 10 3/uL4.0-11.0[facility] Lymphocytes Auto (Bld) [#/Vol]Ordered By: Cecilio Taylor on 02-98-9399Ejfoudzcozm (Bld) [#/Vol]1.5 10 3/uL1.2-3.8[facility] HospitalLymphocytes/100 WBC Auto (Bld)Ordered By: Cecilio Taylor on 07-75-6181Lbdyxcgbmiw/100 WBC (Bld) 22.4 %20.5-60.0[facility] HospitalH Auto (RBC) [Entitic mass] Ordered By: Cecilio Taylor on 87-34-3330KQB (RBC) [Entitic mass]33.3 pg25.9-34.0 [facility] HospitalMCHC Auto (RBC) [Mass/Vol]Ordered By: Cecilio Taylor on 15-68-9712IAWV (RBC) [Mass/Vol]35.5 g/mEYzlh34.9-35.2FWyandot Memorial HospitalMCV Auto (RBC) [Entitic vol]Ordered By: Cecilio Taylor on 14-59-1263KIB (RBC) [Entitic vol]93.8 fL80.0-94.0[facility] HospitalMonocytes Auto (Bld) [#/Vol]Ordered By: Cecilio Taylor on 02-18-2025 Monocytes (Bld) [#/Vol]0.6 10 3/uL0.3-0.8[facility] Monocytes/100 WBC Auto (Bld)Ordered By: Cecilio Taylor on 88-74-7071Rhbkoofib/100 WBC (Bld)9.3 %1.7-12.0[facility] HospitalNeutrophils Auto (Bld) [#/Vol]Ordered By: Cecilio Taylor on 73-44-9626Xzbzvqqrltt (Bld) [#/Vol]3.8 10 3/uL1.4-6.5FWyandot Memorial HospitalNeutrophils/100 WBC Auto (Bld) Ordered By: Cecilio Taylor on 36-86-1203Guoecckeccr/100 WBC (Bld)59.3 %43.0-75.0 [facility] HospitalNo Panel InformationOrdered By: Cecilio Taylor on 16-61-2876Enlqoxrtdwr # (Auto)0.5 10 3/uL0.0-0.7FWyandot Memorial HospitalImmature Granulocyte # (Auto)0.05 10 3/uLHigh0.00-0.03[facility] HospitalProstate Specific Antigen Screen3.81 ng/mL<=4.00[facility] HospitalPlatelet mean volume Auto (Bld) [Entitic vol]Ordered By: Cecilio Taylor on 23-32-0953Oitxbneb mean volume (Bld) [Entitic vol]10.2 fL9.5-13.5 [facility] HospitalPlatelets Auto (Bld) [#/Vol]Ordered By: Cecilio Taylor on 60-55-0350Ewksscmmh (Bld) [#/Vol]147 10 3/vNCtv218-901QtlfnlfquMercy Health Willard HospitalRBC Auto (Bld) [#/Vol]Ordered By: Cecilio Taylor on 80-12-8636BLY (Bld) [#/Vol]4.53 10 6/uLLow4.70-6.10[facility] Hospitalerum or plasma albumin/globulin mass ratioOrdered By: Cecilio Taylor on 33-13-1253Miovrqq/Globulin [Mass ratio]1.1 {ratio}[facility] Hospitalerum or plasma anion gap determinationOrdered By: Cecilio Taylor on 13-27-4483Wglhm gap [Moles/Vol]11.9 mmol/LFKettering Health Prebleerum or plasma total cholesterol/high density lipoprotein (HDL) cholesterol mass rat Ordered By: Cecilio Taylor on 11-23-4458Lopvvnsssch.total/Cholesterol in HDL [Mass ratio]3.8 {ratio}[facility] HospitalComment on above:3.3 - 4.4 LOW RISK4.4 - 7.1 AVERAGE RISK7.1 - 11.0 MODERATE RISK>11.0 HIGH RISKX-ray reportOrdered By: Candelario Gomez on 32-38-0557Lpdow reportSELECT [facility]ICAL [facility] [address] [place] [address] XRay Report Signed Patient: Neisha Thorpe MR#: [id number] : 1940 Acct:[id number] Age/Sex: 84 / M ADM Date: 5 [facility]: Mil Sevilla MD Copies to: Mil Sevilla MD~ Ordering Provider: Mil Sevilla MD Date of Service: 02/17/25 XR/XR [...] Jr., D.O. 02/17/2025 10:32 AM Dictation Location: [place] [address] Transcribed By: [facility] 02/17/25 1032 Dictated By: Candelario Gomez Jr, DO 02/17/25 1031 Signed By: 02/17/25 1032 [facility] HospitalXR wrist LT min 3V*on 29-73-9313AS wrist LT min 3V*[facility] [address] [place] [address] XRay Report Signed Patient: Neisha Thorpe MR#: [id number] 5 : 1940 Acct:[id number] Age/Sex: 84 / M ADM Date: 02/17/25 [place] [facility] [place]: Type[facility] Attending Dr: Mil Sevilla MD Copies to: Mil Sevilla MD Ordering Provider: Mil Sevilla MD Date of Service: 02/17/25 XR/XR [...] HEALING DISTAL RADIUS FRACTURE. Impression dictated by: Enid García Jr.OLainey 02/17/2025 10:32 AM Dictation Location: [facility] Transcribed By: [facility] 02/17/25 1032 Dictated By: Candelario Gomez Jr, DO 02/17/25 1031 Signed By: 02/17/25 1032[facility] Physician GroupBasophils Auto (Bld) [#/Vol]on 98-03-4171Mxbsenwfg (Bld) [#/Vol]Automated basophil count0.0-0.1FWyandot Memorial HospitalBasophils (Bld) [#/Vol]0.0 10 3/uL0.0-0.1FWyandot Memorial HospitalBasophils/100 WBC Auto (Bld)on 09-04-1730Dozsjtrxn/100 WBC (Bld)Automated basophil %0.2-2.0[facility] Basophils/100 WBC (Bld)0.5 %0.2-2.0[facility] Eosinophils/100 WBC Auto (Bld)on 96-32-5171Nlcjqebwgwi/100 WBC (Bld)Automated eosinophil %0.9-7.0[facility] HospitalEosinophils/100 WBC (Bld)4.8 %0.9-7.0[facility] HospitalErythrocyte distribution width Auto (RBC) [Ratio]on 76-36-0324Qkvqgowhsga distribution width (RBC) [Ratio] Erythrocyte distribution width [Ratio] by Automated count11.0-15.0[facility] HospitalErythrocyte distribution width (RBC) [Ratio]12.7 % 11.0-15.0[facility] HospitalEstimated glomerular filtration rate (GFR) non- Americanon 92-14-0824EBM/1.73 sq M.predicted among non-blacks MDRD (S/P/Bld) [Vol rate/Area]Estimated glomerular filtration rate (GFR) non- AmericanLow>=60 mL/min/1.73m [address] [place], [place] [address]GFR/1.73 sq M.predicted among non-blacks MDRD (S/P/Bld) [Vol rate/Area]51 mL/min/{1.73_m2}Low>=60 mL/min/1.[address]m [address] [place] [address] Hematocrit Auto (Bld) [Volume fraction]on 79-40-1167Ykxfxogxtw (Bld) [Volume fraction]Hematocrit [Volume Fraction] of Blood by Automated qouuiUqd18.0-54.0 [facility] HospitalHematocrit (Bld) [Volume fraction]41.1 %Low 42.0-54.0[facility] HospitalHemoglobin [Mass/volume] in Bloodon 85-45-0934Tvinqfymmz (Bld) [Mass/Vol]Hemoglobin [Mass/volume] in Blood14.0-18.0 [facility] HospitalHemoglobin (Bld) [Mass/Vol]14.1 g/dL14.0-18.0 [facility] HospitalLaboratory - Chemistry and Chemistry - challengeon 52-34-6173Bwqjlqn [Mass/Vol]8.9 mg/dL8.5-10.1FWyandot Memorial HospitalChloride [Moles/Vol]103 mmol/R04-873KiecjjwzrMercy Health Willard HospitalCO2 [Moles/Vol]29.1 mmol/L21.0-32.0[facility] Creatinine [Mass/Vol]1.33 mg/dLHigh0.70-1.30[facility] GFR/1.73 sq M.predicted MDRD (S/P/Bld) [Vol rate/Area]mL/min/{1.73_m2}>=60 mL/min/1.73m 2FWyandot Memorial HospitalGlucose [Mass/Vol]101 mg/wR93-527 [facility] HospitalMagnesium [Mass/Vol]1.8 mg/dL1.8-2.4FWyandot Memorial HospitalPotassium [Moles/Vol]4.2 mmol/L3.5-5.1FKettering Health Prebleodium [Moles/Vol]139 mmol/N330-274LezozjlshMercy Health Willard HospitalUrea nitrogen [Mass/Vol]24.0 mg/dLHigh7.0-18.0[facility] HospitalUrea nitrogen/Creatinine [Mass ratio]18.0 mg/mgMercy Health Willard HospitalLaboratory - Hematology and Cell countson 68-31-4060Ivfobatw granulocytes/100 WBC (Bld)0.2 %0.0-0.5FWyandot Memorial Hospital Laboratory - Microbiology and Antimicrobial susceptibilityon 12-05-2024 SARS-CoV-2 (COVID-19) RNA RICKY+probe Ql (Unsp spec)NegativeNEGATIVEMercy Health Willard HospitalComment on above:This test has not been FDA cleared or approved, but has [...] of the declaration thatcircumstances exist justifying the authoriz ation ofemergency use of in vitro diagnostic tests for detectionand/or diagnosis of Covid-19 under section 564(b)(1) of theAct, 21 U.S.C. 360bbb-3(b)(1), unless the declaration isterminated or authorization is revoked sooner.Leukocytes [#/volume] corrected for nucleated erythrocytes in Blood by Automated counon 25-81-6435BZQ corrected for nucl RBC Auto (Bld) [#/Vol]Leukocytes [#/volume] corrected for nucleated erythrocytes in Blood by Automated coun4.0-11.0[facility] HospitalWBC corrected for nucl RBC Auto (Bld) [#/Vol]5.5 10 3/uL 4.0-11.0[facility] HospitalLymphocytes Auto (Bld) [#/Vol]on 00-35-8534Ktbpwhxgmpb (Bld) [#/Vol]Lymphocytes [#/volume] in Blood by Automated countLow1.2-3.8[facility] HospitalLymphocytes (Bld) [#/Vol]0.9 10 3/uLLow1.2-3.8[facility] HospitalLymphocytes/100 WBC Auto (Bld)on 45-40-9882Czclyshprjb/100 WBC (Bld)Lymphocytes/100 leukocytes in Blood by Automated bzvrlRji00.5-60.0[facility] HospitalLymphocytes/100 WBC (Bld)16.7 %Low20.5-60.0[facility] Auto (RBC) [Entitic mass]on 26-48-8799YKI (RBC) [Entitic mass]MCH [Entitic mass] by Automated count 25.9-34.0[facility] (RBC) [Entitic mass]32.3 pg 25.9-34.0[facility] HospitalMCHC Auto (RBC) [Mass/Vol]on 26-07-1589UVFI (RBC) [Mass/Vol]MCHC [Mass/volume] by Automated count29.9-35.2 [facility] HospitalHC (RBC) [Mass/Vol]34.3 g/dL29.9-35.2 [facility] HospitalMCV Auto (RBC) [Entitic vol]on 05-67-4014XOT (RBC) [Entitic vol]MCV [Entitic volume] by Automated umilcAaon57.0-94.0[facility]V (RBC) [Entitic vol]94.3 oVHvuz93.0-94.0[facility] HospitalMonocytes Auto (Bld) [#/Vol]on 27-18-1273Einfkhnss (Bld) [#/Vol]Automated blood monocyte count0.3-0.8[facility] Monocytes (Bld) [#/Vol]0.6 10 3/uL0.3-0.8[facility] Monocytes/100 WBC Auto (Bld)on 46-78-3305Ssnopyyyf/100 WBC (Bld)Automated monocyte %1.7-12.0[facility] HospitalMonocytes/100 WBC (Bld)10.1 % 1.7-12.0[facility] HospitalNeutrophils Auto (Bld) [#/Vol]on 76-34-0385Nrcaqdildde (Bld) [#/Vol]Neutrophils [#/volume] in Blood by Automated count1.4-6.5FWyandot [facility] HospitalNeutrophils (Bld) [#/Vol]3.7 10 3/uL1.4-6.5FWyandot Memorial HospitalNeutrophils/100 WBC Auto (Bld)on 73-11-4197Avmbfzcqtmp/100 WBC (Bld)Automated neutrophil %43.0-75.0[facility] HospitalNeutrophils/100 WBC (Bld)67.7 %43.0-75.0[facility] HospitalNo Panel Informationon 40-58-9246Krbnubxodxh # (Auto)0.3 10 3/uL0.0-0.7FWyandot Memorial HospitalImmature Granulocyte # (Auto)0.01 10 3/uL0.00-0.03[facility] HospitalTroponin I High Sensitivity 15.5 pg/mL4.0-76.1FWyandot Memorial HospitalComment on above:CUT-OFF POINTS HAVE BEEN ESTABLISHED BASED ON THE FOURTHUNIVERSAL DEFINITION OF MYOCARDIAL INFARCTION. THE UPPERREFERENCE LIMIT (URL) OF TROPONIN, DEFINED THE 99THPERCENTILE OF cTnI DISTRIBUTION IN A REFERENCE POPULATION,HAS BEEN CONFIRMED THE DECISION THRESHOLD FOR MIDIAGNOSIS.99TH PERCENTILE = 76.2 PG/MLNOTE: HIGH-SENSITIVITY TROPONIN ASSAY IS NOT INTENDED TO BEUSED IN ISOLATION BUT SHOULD BE INTERPRETED IN CONJUNCTIONWITH OTHER DIAGNOSTIC AND CLINICAL INFORMATION.Bedside Influenza Type A AntigenNegativeMercy Health Willard HospitalComment on above:Negative for Flu A protein antigen. Infection due to Flu Acannot be ruled out. Flu A antigen in thesample may bebelow the detection limit of the test.Bedside Influenza Type B AntigenNegativeMercy Health Willard HospitalComment on above:Negative for Flu B protein antigen. Infection due to Flu Bcannot be ruled out. Flu B antigen in thesample may bebelow the detection limit of the test.Platelet mean volume Auto (Bld) [Entitic vol]on 25-02-4615Rataydja mean volume (Bld) [Entitic vol]Platelet mean volume [Entitic volume] in Blood by Automated count9.5-13.5FWyandot Memorial HospitalPlatelet mean volume (Bld) [Entitic vol]10.3 fL9.5-13.5FWyandot Memorial HospitalPlatelets Auto (Bld) [#/Vol]on 96-63-5608Nkpwuhbxg (Bld) [#/Vol] Platelets [#/volume] in Blood by Automated ofkfsEno222-292OoojflknaMercy Health Willard HospitalPlatelets (Bld) [#/Vol]104 10 3/mANdy366-397QfxqlalfzMercy Health Willard HospitalRB Auto (Bld) [#/Vol]on 56-95-3479BNZ (d) [#/Vol]Erythrocytes [#/volume] in Blood by Automated countLow4.70-6.10[facility] (Bld) [#/Vol]4.36 10 6/uLLow4.70-6.10[facility] Serum or plasma anion gap determinationon 51-31-8625Darll gap [Moles/Vol]Serum or plasma anion gap determinationMercy Health Willard HospitalAnion gap [Moles/Vol]11.1 mmol/LFWyandot Memorial HospitalInfluenza virus B Ag [Presence] in Upper respiratory specimen by Rapid immunoassayon 10-69-6286PJHBY Ag IA.rapid Ql (Nph)Influenza virus B Ag [Presence] in Upper respiratory specimen by Rapid immunoassayMercy Health Willard HospitalNo Panel Informationon 00-32-2581Bslbcmytd Type A (Rapid)NegativeMercy Health Willard HospitalPO SARS CoV-2 AntigenNegativeMercy Health Willard Hospital CNPNon [id number] (SPNMAV) NEISHA THORPE ([id number]) 1940 [employer] Date Time Provider Department 03/20/23 DELIO JAEGER SPNMAV During your visit today, we recorded the following information about you: Neida Caballero MA 03/20/2023 12:30 PM Signed DATE OF SERVICE: 03/15/2023 PATIENT'S PHONE NUMBERS: [phone] (home) OR @Viraliti@ PROVIDER: Dr. Jaeger PROCEDURE: Elective Pain Management [...] work Requesting to call his CELL ONLY [phone] what to do next Leave Detailed messages [...] of spine injection schedulers to call at [phone]. Patient will call if he wants to schedule another injection. 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 Author [...] offered a procedure / surgery at a [facility] facility. Patient and I have discussed in [...] surgery/procedure as indicated on the consent form. [facility] approved time out was performed identifying the site, side and level of procedure prior to start of procedure. [facility] - ELECTIVE PROCEDURE Lumbar Transforaminal Epidural Steroid [...] I performed the entire procedure. Delio Jaeger DO [facility] [id number] (SPNMAV) NEISHA THORPE ([id number]) 1940 [address] [employer] Date Time Provider Department 02/26/23 DELIO JAEGER During your visit today, we recorded the following information about you: Linda Knox LPN 02/26/2023 4:49 PM Signed Spoke to patient in reguards to pre procedure instructions. Pt must have a tank driver. Pt advised to arrive 30 min [...] Advised on location of ASC-2nd floor [facility] Pt will receive a follow up call several days after by a truck driver teamster. If you experience any increase in weakness, difficulty walking or significant increase in pain that last more than 4 hours, please proceed to the Emergency Room and tell them you had a spine procedure done recently. Additionally, call us and notify us of these symptoms. Please call [phone] if you have any questions. Pt verbalized [...] Encounter Status:Closed by LINDA KNOX LPN on 02/26/23[facility] [id number] (SPNMAV) NEISHA THORPE ([id number]) 1940 [employer] Date Time Provider Department 02/19/23 DELIO JAEGER SPNMAV During your visit today, we recorded the following information about you: Camilla Jarrell [facility] 02/19/2023 9:27 AM Signed Neisha Thorpe daughter Celi is calling Delio Sis Mil, DO today to ask about getting patient a shot again - Last one in 2020 Please advise what patient needs as far as OV or MRI or if he can be scheduled for procedure - daughter states she left a VM somewhere last week but never heard back Please call Celi as patient cannot hear well [phone] Patient has been identified by name and birthdate. Duration of symptoms: N/A Person calling: daughter: Celi Call patient at: N/A [phone] (home) [phone] (cell) Was an appointment scheduled: No Closing statement: Results or non-symptom based questions: Thank you for calling [facility], your call will be returned within the next business day. Camilla Knox LPN 02/19/2023 9:45 AM Signed Spine Intervention order formatted for review Linda Knox LPN 02/19/2023 11:59 AM Signed Order approved Spoke to daughter in [facility] to pre procedure instructions. Daughter given scheduling number [phone] Pt must have a tank driver. Pt advised to arrive 30 min prior to the time given by the charge account identification clerk. Pt advised will also receive a call the day before from the surgery center to confirm date/time. Pt can eat and drink as normal. and Pt can take medications as normal. No alcohol 24 hours prior. Pt is on ASA.- 81 mg okay to take. and must Advised on location of ASC-2nd floor [facility] Pt will receive a follow up call several days after by a truck driver teamster. If you experience any increase in weakness, difficulty walking or significant increase in pain that last more than 4 hours, please proceed to the Emergency Room and tell them you had a spine procedure done recently. Additionally, call us and notify us of these symptoms. Please call [phone] if you have any questions. Pt verbalized understanding. 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] Other Visit Diagnosis:Lumbar radiculopathy, chronic [M54.16] Order(s):SPINE INTERVENTION PROCEDURE [6945092] Order #: [id number] Prescriptions as of 02/19/2023 - albuterol HFA [...] NSAID'S while taking medi (more content not included)...NormalTogus Va Medical CenterXR knee LT 4V*on 46-89-1017GB knee LT 4V*[facility] [employer] Other XR knee LT 4V*[facility] [employer] Other XR knee LT 4V*[address] [place] [address] [employer] Other XR knee LT 4V*[place], [place] [address]Zdtud [employer] Other XR knee LT 4V*[facility] [employer] Other XR knee LT 4V*[facility] [employer] Other XR knee LT 4V*Patient: Neisha Thorpe MR#: [id number] [place] [employer] Other XR knee LT 4V*[facility] Center[facility] [employer] Other XR knee LT 4V*: 1940 Acct:[id number] [employer] Other XR knee LT 4V*Age/Sex: 82 / M ADM Date: 11/09/22[employer] Other XR knee LT 4V*[place] [facility] [place]: Type: [facility] [employer] Other XR knee LT 4V*Attending Dr: Jose Enrique Leblanc II, MD [employer] Other XR knee LT 4V*Copies to: Jose Enrique Leblanc MDAtlantic [employer] Other XR knee LT 4V*Ordering Provider: Jose Enrique Leblanc MD [employer] Other XR knee LT 4V*Date of Service: 11/09/22[place] [employer] Other XR knee LT 4V* XR/XR knee LT 4V*: Acute pain of left kneeAtlantic [employer] Other XR knee LT 4V*XR knee LT 4V* 11/09/2022 3:15 [facility] [employer] Other XR knee LT 4V*SIGNS AND SYMPTOMS: Acute pain of left kneeAtlantic [employer] Other XR knee LT 4V*PROTOCOL: Frontal, lateral, oblique, and sunrise views of the left kneeAtlantic [employer] Other XR knee LT 4V*COMPARISON: 11/05/2022[place] [employer] Other XR knee LT 4V*FINDINGS:[employer] Other XR knee LT 4V*There is similar narrowing of the weightbearing joint spaces with chondrocalcinosis of the menisUniversity of [facility] [employer] Other XR knee LT 4V*suggesting underlying CPPD. There is narrowing of the patellofemoral joint space with spurring atAtlantic [employer] Other XR knee LT 4V*the superior pole of patella. There is a small joint effusion. No soft tissue swelling. No [email or web address].com [employer] Other XR knee LT 4V*displaced fracture. Vascular calcifications are present posteriorly.[employer] Other XR knee LT 4V* XR/XR knee LT 4V* [employer] Other XR knee LT 4V*IMPRESSION:[employer] Other XR knee LT 4V*Tricompartmental degenerative changes are noted in the left knee with a small joint effusion.[employer] Other XR knee LT 4V*There is chondrocalcinosis of the menisci suggesting underlying CPPD.[employer] Other XR knee LT 4V*Impression dictated by: Darren Yuen M.D.11/09/2022 5:03 [facility] [employer] Other XR knee LT 4V*Dictation Location: [id number] [employer] Other XR knee LT 4V*Transcribed By: COLIN 11/09/[address] [place] [address] [employer] Other XR knee LT 4V*Dictated By: Darren Yuen II, MD 11/09/[address] [place] [address] [employer] Other XR knee LT 4V*Signed By:[employer] Other XR knee LT 4V*11/09/[address] [place] [address] [employer] Other XR pelvis 1-2Von 25-21-3657BY pelvis 1-2VAccession #: ([id number]) XR/XR pelvis 1-2V: Acute pain of left kneeAtlantic [employer] Other XR pelvis 1-2VXR pelvis 1-2V 11/09/2022 3:15 PMNmer[facility] [employer] Other XR pelvis 1-2VSIGNS AND SYMPTOMS: Left knee painAtlantic [employer] Other xr pelvis 1-2VPROTOCOL: Frontal radiograph of the chestAtlantic [employer] Other XR pelvis 1-2VCOMPARISON: NoneAtlantic [employer] Other XR pelvis 1-2VThere is mild narrowing of the left hip joint space with subcortical cystic change on both sides [facility] [employer] Other XR pelvis 1-2Vthe joint along the acetabular there is chondrocalcinosis of the labrum overlying the superiorAtlantic [employer] Other XR pelvis 1-2Vacetabular rim and superior lateral femoral head. The bony ring of the pelvis is intact. There isAtlantic [employer] Other xr pelvis 1-2Vtotal right hip arthroplasty. Degenerative changes are noted in the sacroiliac joints. No fractureAtlantic [employer] Other XR pelvis 1-2VisNonevada regional medical center [employer] Other xr pelvis 1-2VORDER #: [id number] XR/XR pelvis 1-2V [employer] Other xr pelvis 1-2VDegenerative changes are noted in the left hip with findings suspicious for previous labralAtlantic [employer] Other xr pelvis 1-2Vpathology.[employer] Other xr pelvis 1-2VPostoperative changes are noted in the right hip with total right hip arthroplasty hardware.[employer] Other xr pelvis 1-2VImpression dictated by: Darren Yuen M.D.11/09/2022 5:01 [facility] [employer] Other xr pelvis 1-2VTranscribed By: COLIN 11/09/[address] [place] [address] [employer] Other xr pelvis 1-2VDictated By: Darren Yuen II, MD 11/09/[address] [place] [address] [employer] Other xr pelvis 1-2V11/09/22 [facility] CenterTrans[facility] Other xr KNEE LT 4V or >on 89-63-8315LQ KNEE LT 4V or >EXAM: XR KNEE LT 4V or > HISTORY: Pain of joint of knee COMPARISON: None. TECHNIQUE: 3 views Left knee FINDINGS: Bones: No acute or aggressive appearing bony lesion. There is no acute fracture. Joints: Mild to moderate tricompartmental osteoarthritis, characterized by marginal osteophyte and joint space narrowing. There is chondrocalcinosis. Soft tissues: Unremarkable. IMPRESSION: Eouo-fs-bcncgkzp osteoarthritis as described above. Chondrocalcinosis. No acute fracture or dislocation. Electronically authenticated by: CHUCK JORGEDARRIUS Date: 2022-11-05 11:19[facility] CAROTID ART BILon 50-87-2571CS CAROTID ART BILEXAMINATION: US CAROTID ART LEOBARDO HISTORY: Cardiovascular symptoms [...] Electronically authenticated by: JONAS MCLEOD Date: 2022-09-26 10:58NormalThSycamore Medical Center AUTO DIFFon 28-22-3078NIYJ #0.0 103/ulNormal0.0-0.1The The Christ HospitalComment on above:Performed By: #### CBC #### [facility] [address] [address] [address] Alexis Raiphils/100 WBC (Bld)0.7 %Normal0.2-2.0The [facility] Comment on above:Performed By: #### CBC #### [facility] [address] [address] [address] Alexis Mares #0.3 103/ulNormal0.0-0.7The [facility] HospitalComment on above: Performed By: #### CBC #### [facility] [address] [address] [address] Alexis Garayosinophils/100 WBC (Bld)6.1 %Normal0.9-7.0The [facility] on above:Performed By: #### CBC #### [facility] [address] [place] [address] Dr. Alexis Garayrythrocyte distribution width (RBC) [Ratio]12.1 %Sdkkqs39.0-15.0 The [facility] HospitalComment on above:Performed By: #### CBC #### [facility] [address] [place] [address] Dr. Alexis BrinkHematocrit (Bld) [Volume fraction]44.2 %Awyiju81.0-54.0The [facility] HospitalComment on above:Performed By: #### CBC #### [facility] [address] [place] [address] Dr. Alexis BrinkHemoglobin (Bld) [Mass/Vol]14.9 g/tCGbrbvn25.0-18.0The [facility] Centerment on above:Performed By: #### CBC #### [facility] [address] [place] [address] Dr. Alexis Osborne #0.01 10e3/ulNormal0.00-0.03The [facility] Medical Centerment on above:Performed By: #### CBC #### [facility] [address] [place] [address] Dr. Alexis BrinkIG %0.2 %Normal0.0-0.5The [facility] Medical Centerment on above: Performed By: #### CBC #### [facility] [address] [place] [address] Dr. Alexis GunnH #1.2 103/ulNormal1.2-3.8The [facility] HospitalComment on above:Performed By: #### CBC #### [facility] [address] [place] [address] Dr. Alexis Brownmphocytes/100 WBC (Bld)21.3 %Viiciq98.5-60.0The [facility] HospitalComment on above:Performed By: #### CBC #### [facility] [address] [place] [address] Dr. Alexis Pichardo DIFF REQNONormalThe [facility] HospitalComment on above: Performed By: #### CBC #### [facility] [address] [place] [address] Dr. Alexis Figueroa (RBC) [Entitic mass]30.7 sqFkpeyn95.9-34.0The [facility] HospitalComment on above:Performed By: #### CBC #### [facility] [address] [place] [address] Dr. Alexis Figueroa (RBC) [Mass/Vol]33.7 g/eQRmqbna87.9-35.2The [facility] HospitalComment on above:Performed By: #### CBC #### [facility] [address] [place] [address] Dr. Alexis Figueroa (RBC) [Entitic vol]91.1 dGQjasxi41.0-94.0The [facility] HospitalComment on above:Performed By: #### CBC #### [facility] [address] [place] [address] Dr. Alexis Ivey #0.5 103/ulNormal0.3-0.8The [facility] HospitalComment on above:Performed By: #### CBC #### [facility] [address] [place] [address] Dr. Alexis De Leónocytes/100 WBC (Bld)8.5 %Normal1.7-12.0The [facility] Comment on above:Performed By: #### CBC #### [facility] [address] [place] [address] Dr. Alexis Mensah #3.5 103/ulNormal1.4-6.5The [facility] HospitalComment on above:Performed By: #### CBC #### [facility] [address] [place] [address] Dr. Alexis Connellyutrophils/100 WBC (Bld)63.2 %Gemwvk77.0-75.0The [facility] HospitalComment on above:Performed By: #### CBC #### [facility] [address] [address] [address] Alexis BrinkPlatelet mean volume (Bld) [Entitic vol]10.0 fLNormal9.5-13.5The [facility] HospitalComment on above:Performed By: #### CBC #### [facility] [address] [place] [address] Dr. Alexis BrinkPLT120 103/ulCritically qup606-662Geu [facility] HospitalComment on above:Performed By: #### CBC #### [facility] [address] [place] [address] Dr. Alexis BrinkRBC4.85 106/ulNormal4.70-6.10The [facility] HospitalComment on above:Performed By: #### CBC #### [facility] [address] [place] [address] Dr. Alexis BrinkWBC5.6 103/ulNormal4.0-11.0The [facility] HospitalComment on above: Performed By: #### CBC #### [facility] [address] [place] [address] Dr. Alexis BrinkCovid-19 PCR ([facility]VDCAM[facility])on 52-67-0811NLJG-CoV-2 (COVID-19) RNA RICKY+probe Ql (Unsp spec)Not detectedNormalNOT DETECTEDThe [facility] Comment on above:Result Comment: This test is not yet approved or cleared by the [place] FDA. When there are no FDA-approved or cleared tests available, and other criteria are met, FDA can make tests available under an emergency access mechanism called an Emergency Use Authorization (EUA). The EUA for this test is supported by the [employer] Maker of Health and Human Service's (HHS's) declaration that circumstances exist to justify the emergency use of in vitro diagnostics for the detection and/or diagnosis of the virus that causes COVID- 19. This EUA will remain in effect (meaning [...] of clinical signs and symptoms consistent with SARS-CoV-2.Performed By: #### CVDTBH ####[facility] [address] [place], [place] [address]Dr. Alexis ChangINFLUENZA A AND B AGon 45-78-5898RBBMRQLZNYNHEWVUMedicine Barnesville HospitalComment on above:Result Comment: Negative for Flu A protein angiten. Infection due to Flu A cannot be ruled out. FluA angiten in the sample may be below the detection limit of the test.Performed By: #### INFLUAB ####[facility] [address] [place], [place] [address]Dr. Alexis ChangINFLUBNEGHSEE [facility] CampusComascension providence hospital on above:Result Comment: Negative for Flu B protein antigen. Infection due to Flu B cannot be ruled out. FluB antigen in the sample may be below the detection limit of the test.Performed By: #### INFLUAB ####[facility] [address] [place], [place] [address]Dr. Alexis BrinkINFLUENZA A AGNegativeNormalNEGATIVE SEE COMMENTThe [facility] Comment on above:Performed By: #### INFLUAB ####[facility] [address] [place], [place] [address]Dr. Alexis BrinkINFLUENZA B AGNegativeNormal NEGATIVE SEE COMMENTThe [facility] HospitalComment on above:Performed By: #### INFLUAB ####[facility] [address] [place], [place] [address]Dr. Alexis ChangINTERNAL CONTROLSWithin Normal LimitsNormalWithin Normal LimitsThe [facility] HospitalComment on above:Performed By: #### INFLUAB ####[facility] [address] [place], [place] [address]Dr. Alexis BrinkPROF CHEM 8 (BAS METB)on 18-15-9682Rbjhi gap [Moles/Vol]11.4 mmol/L NormalThe [facility] HospitalComment on above:Performed By: #### BMP, HSTROPN #### [facility] [address] [address] [address] Alexis BrinkCalcium [Mass/Vol]8.9 mg/dLNormal8.5-10.1[facility] Comment on above:Performed By: #### BMP, HSTROPN #### [facility] [address] [address] [address] Alexis BrinkChloride [Moles/Vol]102 mmol/AZlzcpg01-775Oox [facility] Comment on above:Performed By: #### BMP, HSTROPN #### [facility] [address] [place] [address] Dr. Alexis BrinkCO2 [Moles/Vol]28.8 mmol/OUaevmm55.0-32.0[facility] Comment on above:Performed By: #### BMP, HSTROPN #### [facility] [address] [place] [address] Dr. Alexis BrinkCreatinine [Mass/Vol]1.35 mg/dLCritically high0.70-1.30The [facility] HospitalComment on above:Performed By: #### BMP, HSTROPN #### [facility] [address] [place] [address] Dr. Espinoza ChangEGFR-AF BURMESE>60Normal>=60The [facility] HospitalComment on above:Performed By: #### BMP, HSTROPN #### [facility] [address] [place] [address] Dr. Espinoza ChangEGFR-NON AF JVZHBNQE43 mL/min/1.77c2Ioetzqzcsn low>=60The [facility] HospitalComment on above:Performed By: #### BMP, HSTROPN #### [facility] [address] [place] [address] Dr. Alexis BrinkGlucose [Mass/Vol]109 mg/dLCritically whwy90-753Kbq [facility] HospitalComment on above:Performed By: #### BMP, HSTROPN #### [facility] [address] [place] [address] Dr. Alexis BrinkPotassium [Moles/Vol]4.2 mmol/LNormal3.5-5.1The [facility] Comment on above:Performed By: #### BMP, HSTROPN #### [facility] [address] [address] [address] Alexis BrinkSodium [Moles/Vol]138 mmol/KAsbvye868-749Obt [facility] Comment on above:Performed By: #### BMP, HSTROPN #### [facility] [address] [address] [address] Alexis BrinkUrea nitrogen [Mass/Vol]18.0 mg/dLNormal7.0-18.0The [facility] HospitalComment on above:Performed By: #### BMP, HSTROPN #### [facility] [address] [address] [address] Alexis Whitmore nitrogen/Creatinine [Mass ratio]13.3 mg/mgNormalThe [facility] HospitalComment on above:Performed By: #### BMP, HSTROPN #### [facility] [address] [address] [address] Alexis Corea, HIGH SENSITIVITYon 02-27-4466ZWPOLG44.2 pg/mLNormal 4.0-76.1The [facility] HospitalComment on above:Result Comment: CUT-OFF POINTS HAVE BEEN ESTABLISHED BASED ON THE FOURTH UNIVERSAL DEFINITIONS OF MYOCARDIAL INFARCTION. THE UPPER REFERENCE LIMIT (URL) OF TROPONIN, DEFINED THE 99TH PERCENTILE OF cTnI DISTRIBUTION IN A REFERENCE POPULATION, HAS BEEN CONFIRMED THE DECISION THRESHOLD FOR RI DIAGNOSIS.Performed By: #### BMP, HSTROPN #### [facility] [address] [place] [address] Dr. Alexis BrinkXR CHEST 1 Von 78-61-4681EA CHEST 1 VEXAM: XR CHEST 1 V HISTORY: COUGH COMPARISON: [...] Electronically authenticated by: RADHA UNDERWOOD Date: 2022-08-10 16:07[facility] AUTO DIFFon 91-16-6258AYEM #0.0 103/ulNormal0.0-0.1The [facility] HospitalComment on above:Performed By: #### CBC #### [facility] [address] [address] [address] Alexis BrinkBasophils/100 WBC (Bld)0.6 %Normal0.2-2.0The [facility] Comment on above:Performed By: #### CBC #### [facility] [address] [place] [address] Dr. Alexis Mares #0.5 103/ulNormal0.0-0.7The [facility] HospitalComment on above: Performed By: #### CBC #### [facility] [address] [address] [address] Alexis Garayosinophils/100 WBC (Bld)7.2 %Critically high0.9-7.0The [facility] HospitalComment on above:Performed By: #### CBC #### [facility] [address] [address] [address] Alexis Garayrythrocyte distribution width (RBC) [Ratio]12.4 %Kbagkr75.0-15.0 The [facility] HospitalComment on above:Performed By: #### CBC #### [facility] [address] [place] [address] Dr. Alexis BrinkHematocrit (Bld) [Volume fraction]45.5 %Iyffyf91.0-54.0The The [facility] HospitalComment on above:Performed By: #### CBC #### [facility] [address] [place] [address] Dr. Alexis BrinkHemoglobin (Bld) [Mass/Vol]15.4 g/uWDehgok10.0-18.0The [facility] HospitalComment on above:Performed By: #### CBC #### [facility] [address] [place] [address] Dr. Alexis Osborne #0.02 10e3/ulNormal0.00-0.03The [facility] HospitalComment on above:Performed By: #### CBC #### [facility] [address] [place] [address] Dr. Alexis Osborne %0.3 %Normal0.0-0.5The [facility] HospitalComment on above: Performed By: #### CBC #### [facility] [address] [place] [address] Dr. Alexis Lee #1.3 103/ulNormal1.2-3.8The [facility] HospitalComment on above:Performed By: #### CBC #### [facility] [address] [place] [address] Dr. Alexis Gunnhocytes/100 WBC (Bld)17.8 %Critically low20.5-60.0The [facility] HospitalComment on above:Performed By: #### CBC #### [facility] [address] [place] [address] Dr. Alexis CantuUAL DIFF REQNONormalThe The Christ HospitalComment on above: Performed By: #### CBC #### [facility] [address] [place] [address] Dr. Alexis Figueroa (RBC) [Entitic mass]31.4 yeEwjcsd34.9-34.0The [facility] HospitalComment on above:Performed By: #### CBC #### [facility] [address] [place] [address] Dr. Alexis Figueroa (RBC) [Mass/Vol]33.8 g/wEJkrxns19.9-35.2The [facility] HospitalComment on above:Performed By: #### CBC #### [facility] [address] [place] [address] Dr. Alexis Figueroa (RBC) [Entitic vol]92.9 jXVnqlhq63.0-94.0The [facility] HospitalComment on above:Performed By: #### CBC #### [facility] [address] [place] [address] Dr. Alexis Ivey #0.7 103/ulNormal0.3-0.8The [facility] HospitalComment on above:Performed By: #### CBC #### [facility] [address] [place] [address] Dr. Alexis De Leónocytes/100 WBC (Bld)9.6 %Normal1.7-12.0The [facility] Comment on above:Performed By: #### CBC #### [facility] [address] [place] [address] Dr. Alexis Mensah #4.6 103/ulNormal1.4-6.5The [facility] HospitalComment on above:Performed By: #### CBC #### [facility] [address] [place] [address] Dr. Alexis Connellyutrophils/100 WBC (Bld)64.5 %Qihtes68.0-75.0The [facility] HospitalComment on above:Performed By: #### CBC #### [facility] [address] [place] [address] Dr. Alexis Munoz mean volume (Bld) [Entitic vol]10.7 fLNormal9.5-13.5The [facility] HospitalComment on above:Performed By: #### CBC #### [facility] [address] [place] [address] Dr. Alexis BrinkPLT130 103/ulCritically aev256-253Anq The [facility] HospitalComment on above:Performed By: #### CBC #### [facility] [address] [place] [address] Dr. Alexis BrinkRBC4.90 106/ulNormal4.70-6.10The [facility] HospitalComment on above:Performed By: #### CBC #### [facility] [address] [place] [address] Dr. Alexis BrinkWBC7.1 103/ulNormal4.0-11.0The [facility] HospitalComment on above: Performed By: #### CBC #### [facility] [address] [address] [address] Alexis MerrittRECT LDLon 10-54-7359Fjihacdrfat in LDL [Mass/Vol]144 mg/dL NormalOhiohealth Shelby HospitalComment on above:Performed By: #### DLDL, BMP ####[facility] [address] [address]Dr. Alexis BrinkDLDL NORMALSEE BELOWNormalThe The [facility] HospitalComment on above: Result Comment: <100 mg/dl OPTIMAL 100 - 129 mg/dl NEAR OR ABOVE OPTIMAL 130 - 159 mg/dl BORDERLINE HIGH 160 - 189 mg/dl HIGH >190 mg/dl VERY HIGHPerformed By: #### DLDL, BMP ####[facility] [address] [address]Dr. Alexis BrinkPROF CHEM 8 (BAS METB)on 99-30-8439Xwgrb gap [Moles/Vol]9.3 mmol/LNormalThe [facility] HospitalComment on above:Performed By: #### DLDL, BMP #### [facility] [address] [address] [address] Alexis BrinkCalcium [Mass/Vol]8.7 mg/dLNormal8.5-10.1[facility] Comment on above:Performed By: #### DLDL, BMP #### [facility] [address] [address] [address] Alexis BrinkChloride [Moles/Vol]103 mmol/RQzhoen16-108Hml [facility] Comment on above:Performed By: #### DLDL, BMP #### [facility] [address] [address] [address] Alexis BrinkCO2 [Moles/Vol]32.1 mmol/LCritically high21.0-32.0Ohio[facility] Shelby HospitalComment on above:Performed By: #### DLDL, BMP #### [facility] [address] [address] [address] Alexis BrinkCreatinine [Mass/Vol]1.35 mg/dLCritically high0.70-1.30The [facility] HospitalComment on above:Performed By: #### DLDL, BMP #### [facility] [address] [place] [address] Dr. Alexis GarayGFR-AF BURMESE>60Normal>=60The [facility] HospitalComment on above:Performed By: #### DLDL, BMP #### [facility] [address] [place] [address] Dr. Alexis GarayGFR-NON AF XWJNWFLP91 mL/min/1.51s1Nacychtcyk low>=60The [facility] HospitalComment on above:Performed By: #### DLDL, BMP #### [facility] [address] [place] [address] Dr. Alexis BrinkGlucose [Mass/Vol]90 mg/mONntplu27-669PcfOhiohealth Shelby Hospital Comment on above:Performed By: #### DLDL, BMP #### [facility] [address] [place] [address] Dr. Alexis BrinkPotassium [Moles/Vol]4.4 mmol/LNormal3.5-5.1[facility] Comment on above:Performed By: #### DLDL, BMP #### [facility] [address] [place] [address] Dr. Alexis Glassdium [Moles/Vol]140 mmol/KVpqqgc886-438EflOhiohealth Shelby Hospital Comment on above:Performed By: #### DLDL, BMP #### [facility] [address] [place] [address] Dr. Alexis BrinkUrea nitrogen [Mass/Vol]16.0 mg/dLNormal7.0-18.0The [facility] HospitalComment on above:Performed By: #### DLDL, BMP #### [facility] [address] [place] [address] Dr. Alexis BrinkUrea nitrogen/Creatinine [Mass ratio]11.9 mg/mgNormalThe The [facility] HospitalComment on above:Performed By: #### DLDL, BMP #### [facility] [address] [place] [address] Dr. Alexis Richmond 56-66-8464Roimtzjgc Ql (U)NegativeNormalNEGATIVEOhiohealth Shelby HospitalComment on above:Performed By: #### UA #### [facility] [address] [address] [address] Alexis Lerma (U)CLEARNormalCLEAROhiohealth Shelby HospitalComment on above: Performed By: #### UA #### [facility] [address] [address] [address] Alexis Villareal (U)YELLOWNormalYELLOWOhiohealth Shelby HospitalComment on above: Performed By: #### UA #### [facility] [address] [place] [address] Dr. Alexis BrinkGlucose Ql (U)NegativeNormalNEGATIVEOhiohealth Shelby HospitalComment on above:Performed By: #### UA #### [facility] [address] [place] [address] Dr. Alexis BrinkHemoglobin Ql (U)NegativeNormalNEGATIVEMercy Health St[facility] on above:Performed By: #### UA #### [facility] [address] [address] [address] Alexis BrinkKetones Ql (U)NegativeNormalNEGATIVEOhiohealth Shelby HospitalComment on above:Performed By: #### UA #### [facility] [address] [place] [address] Dr. Alexis BrinkLEUKOCYTESNegativeNormalNEGATIVEOhiohealth Shelby HospitalComment on above:Performed By: #### UA #### [facility] [address] [address] [address] Alexis BrinkNitrite Ql (U)NegativeNormalNEGATIVEOhiohealth Shelby HospitalComment on above:Performed By: #### UA #### [facility] [address] [address] [address] Alexis BrinkpH (U)7.0 [pH]Normal5-9Ohiohealth Shelby HospitalComment on above: Performed By: #### UA #### [facility] [address] [address] [address] Alexis BrinkSPEC GRAVITY1.343Dpobhu0.005-<=1.025Ohiohealth Shelby HospitalComment on above:Performed By: #### UA #### [facility] [address] [address] [address] Alexis BrinkUA PROTEINNegativeNormalNEGATIVE/ TRACEThe [facility] Comment on above:Performed By: #### UA #### [facility] [address] [address] [address] Alexis BrinkUrobilinogen Qn (U)1.0 {Kay'U}/dLNormal0.2 - 1.0The [facility] HospitalComment on above:Performed By: #### UA #### [facility] [address] [place] [address] Dr. Alexis BrinkXR CHEST 2 Von 96-70-6503PJ CHEST 2 VEXAM: CHEST 2 VIEWS HISTORY: Pneumonitis due to [...] hiatal hernia. IMPRESSION: 1. Mild nonspecific bronchial inflammation/bronchitis. Lungs clear without consolidation or effusion. Electronically authenticated by: LYDIA HAWLEY Date: 2021-12-06 15:42[facility]Non[facility] - PTon [id number] Note - PTCert letter refaxed for signature this date - third and final attempt.[facility] PTon [id number] Note - PTCert letter refaxed to Dr Gooden's office. Second attempt.[facility] Coding Summary.on [id number] Summary.CODING DATE: 01/25/2018 FINAL [facility] STATUS: PAYOR: Medicare ADMIT DX: REASON [...] terminology. Coded By: Dominique Pendleton Date Saved: 01/25/201810:54 [facility] Coding Summary.CODING DATE: 01/25/2018 FINAL [facility] STATUS: PAYOR: Medicare ADMIT DX: REASON FOR VISIT DX: Z47.1 Aftercare following joint replacement surgery FINAL DX: PRINCIPAL: Z47.1 Aftercare following joint replacement surgery SECONDARY: Z96.641 Presence of right artificial hip joint M25.552 Pain in left hip R26.2 Difficulty in walking, not elsewhere classified PROCEDURES DOCTORNAME DATE NOTE: The code number assigned matches the documented diagnosis and / or procedure in thepatient's chart. However, the narrative phrase printed from the coding software may appear abbreviated, or result in slightly different terminology. Coded By: Dominique Pendleton Date Saved: 01/25/2018 10:54 [facility]UR[facility] PATHOLOGYon [id number] PATHOLOGYSpecimen originated from [facility] #: [id number] Physician: CANDELARIO GOODEN MD__ FINAL DIAGNOSISRight hip, arthroplasty - Severe degenerative joint disease.J/kr 01/07/2018 Layton Díaz M.D.(Electronic Sign ature) SPECIME N SUBMITTEDA: RIGHTHIP BONE AND SOFT TISSUE CLINICAL DATAOSTEOARTHRITIS OF [...] multiple segments of bone shave and hemorrhagic materialandsoft tissue aggregating to 8.5 x 8.5 x 1.8 cm. [employer]om[employer] Operator sectionsare submitted as follows: A1 soft tissue, A2 bone submitted afterdecalcification.KAUSHIK/lachelle 01/01/2018 Gross examination performed [facility], [address] [place], [place] [address] of Report: 01/07/2018Date of Procedure: 01/01/2018Date of Receipt: 01/01/2018Submitted by: CANDELARIO GOODEN MDLocation: [id number] interpretation performed at [facility], [address] [place], [place] [id number].NormalRegency Hospital Company Reference LabComment on above:Performed By: #### S ####See report for performing lab information. Vital Signs Date TimeVital SignValuePerforming AfznjdmtwKtcvmipk63-59-1474 09:010400Body ipawdz806.64 cmBenjamin Ball DO Work Phone: [facility]09-24-2025 09:01-0400 Body mass index (BMI) [Ratio]29.2 kg/v7Beatwmke Ball DO Work Phone: [facility]09-24-2025 09:01-0400 Body .24 kgBenjamin Ball DO Work Phone: [facility]09-24-2025 09:01-0400 Diastolic blood kdxyknpp91 mm[Hg]Cecilio Ball DO Work Phone: [facility]09-24-2025 09:01-0400 Heart rate70 /minBenjamin Ball DO Work Phone: [phone]09-24-2025 09:01-0400 Respiratory rate12 /minBenjamin Ball DO Work Phone: [phone])[address] [place], [place] 9522809-24-2025 09:01-0400 Systolic blood gwhljkew505 mm[Hg]Cecilio Ball DO Work Phone: [phone])[address] [place], [place] 9522808-15-2025 09:52-0400 Body nzmovf657.64 cmBenjamin Ball DO Work Phone: [phone])[address] [place], [place] [address]-15-2025 09:52-0400 Body mass index (BMI) [Ratio]29.9 kg/v8Njadydax Ball DO Work Phone: [phone])[address] [place], [place] 9522808-15-2025 09:52-0400 Body fipdiy72.02 kgBenjamin Ball DO Work Phone: [phone])[address] [place], [place] 9522808-15-2025 09:52-0400 Diastolic blood alsimbho48 mm[Hg]Cecilio Ball DO Work Phone: 1(419)[address] [place], [place] [address]808-15-2025 09:52-0400 Heart rate70 /minBenjamin Ball DO Work Phone: [phone])[address] [place], [place] [address]-15-2025 09:52-0400 Respiratory rate16 /minBenjamin Ball DO Work Phone: [phone])[address] [place], [place] [address]22808-15-2025 09:52-0400 Systolic blood ydijdyzc373 mm[Hg]Cecilio Ball DO Work Phone: 1(419)[address] [place], [place] [address]808-08-2025 13:30-0400 Body .64 cmBenjamin Ball DO Work Phone: [phone])[address] [place], [place] 95[address]808-08-2025 13:30-0400 Body mass index (BMI) [Ratio]30.2 kg/y4Ohauazjz Ball DO Work Phone: [phone])[address] [place], [place] 95[address]808-08-2025 13:30-0400 Body vajjzg21.99 kgBenjamin Ball DO Work Phone: 1(419)[address] [place], [place] [address]22808-08-2025 13:30-0400 Diastolic blood uuhrwdwd46 mm[Hg]Cecilio Ball DO Work Phone: 1(419)[address] [place], [place] [address]-08-2025 13:30-0400 Heart rate80 /minBenjamin Ball DO Work Phone: 1(419)[address] [place], [place] [address]22808-08-2025 13:30-0400 Respiratory rate16 /minBenjamin Ball DO Work Phone: 1(419)[address] [place], [place] 9522808-08-2025 13:30-0400 Systolic blood dloctlul242 mm[Hg]Cecilio Ball DO Work Phone: 1(419)[address] [place], [place] 9522806-25-2025 08:58-0400 Body urajjr720.64 cmBenjamin Ball DO Work Phone: 1(419)[address] [place], [place] 9522806-25-2025 08:58-0400 Body mass index (BMI) [Ratio]28.4 kg/e8Svxywoqb Ball DO Work Phone: 1(419)[address] [place], [place] 9522806-25-2025 08:58-0400 Body okrdxm76.94 kgBenjamin Ball DO Work Phone: 1(419)[address] [place], [place] 9522806-25-2025 08:58-0400 Diastolic blood imaacooc65 mm[Hg]Cecilio Ball DO Work Phone: 1(419)[address] [place], [place] [address]806-25-2025 08:58-0400 Heart rate71 /minBenjamin Ball DO Work Phone: 1(419)[address] [place], [place] 9522806-25-2025 08:58-0400 Respiratory rate12 /minBenjamin Ball DO Work Phone: 1(419)[address] [place], [place] 9522806-25-2025 08:58-0400 SaO2% (BldA) [Mass fraction]97 %Cecilio Ball DO Work Phone: 1(419)[address] [place], [place] [address]806-25-2025 08:58-0400 Systolic blood rqoebeoz617 mm[Hg]Cecilio Ball DO Work Phone: [facility]06-03-2025 10:50-0400 Body .64 cmMercy Health [facility] Hospital06-03-2025 10:50-0400Body mass index (BMI) [Ratio]28.5 kg/q3CzrxazxruMercy Health Willard Hospital06-03-2025 10:50-0400Body gtozhh43.37 kgMercy Health Willard Hospital06-03-2025 10:50-0400Diastolic blood susrfozc99 mm[Hg][facility] 01-20-2025 10:50-0400Heart rate66 /[facility] 01-20-2025 10:50-0400Respiratory rate16 /[facility] 01-20-2025 10:50-8801PmM3% (BldA) [Mass fraction]95 %[facility]06-03-2025 10:50-0400Systolic blood ihiardgj027 mm[Hg][facility]04-22-2025 15:37-0400Body .64 cmMercy Health Willard Hospital04-22-2025 15:37-0400Body mass index (BMI) [Ratio]28.9 kg/m2 [facility]04-22-2025 15:37-0400Body gluyfd20.36 kg [facility]04-22-2025 15:37-0400Diastolic blood xzfmuxnl95 mm[Hg][facility]04-22-2025 15:37-0400Heart rate75 /min [facility]04-22-2025 15:37-0400Respiratory rate12 /min [facility]04-22-2025 15:37-5792LiQ2% (BldA) [Mass fraction]98 %[facility]04-22-2025 15:37-0400Systolic blood jmpiuxpz217 mm[Hg][facility]03-20-2025 09:02-0400 Body kxwjry342.64 cmMercy Health [facility] Hospital03-20-2025 09:02-0400Body mass index (BMI) [Ratio]28.9 kg/e6ErpilduujMercy Health Willard Hospital03-20-2025 09:02-0400Body edlxbf15.36 kgMercy Health Willard Hospital03-20-2025 09:02-0400Diastolic blood leopgjhi91 mm[Hg][facility] 11-06-2024 09:02-0400Heart rate82 /[facility] 11-06-2024 09:02-0400Respiratory rate24 /[facility] 11-06-2024 09:02-8447IhP9% (BldA) [Mass fraction]98 %[facility]03-20-2025 09:02-0400Systolic blood dfrccssi900 mm[Hg][facility]02-12-2025 08:35-0500Body raihnj449.64 cmMercy Health Willard Hospital02-12-2025 08:35-0500Body mass index (BMI) [Ratio]28.5 kg/m2 [facility]02-12-2025 08:35-0500Body arbnxj74.34 kg [facility]02-12-2025 08:35-0500Diastolic blood gqfscurj20 mm[Hg][facility]02-12-2025 08:35-0500Heart rate67 /min [facility]02-12-2025 08:35-0500Respiratory rate16 /min [facility]02-12-2025 08:35-0500Systolic blood hwdvsewb571 mm[Hg][facility]10-09-2024 08:30-0400Body oltxws540.64 cmMercy Health Willard Hospital10-09-2024 08:30-0400Body mass index (BMI) [Ratio]27.1 kg/d4QjveaqrciMercy Health Willard Hospital10-09-2024 08:30-0400Body .31 kgMercy Health Willard Hospital10-09-2024 08:30-0400Diastolic blood azacidef29 mm[Hg][facility]10-09-2024 08:30-0400 Heart rate61 /[facility]10-09-2024 08:30-0400 Respiratory rate12 /[facility]10-09-2024 08:30-0400 Systolic blood ymtbmhfb543 mm[Hg][facility]06-04-2024 09:16-0400Body .64 cmMercy Health [facility]ard Hospital06-04-2024 09:16-0400Body mass index (BMI) [Ratio]29.3 kg/w7OsyzdqpqiMercy Health Willard Hospital06-04-2024 09:16-0400Body jvajgn81.55 kgMer[facility] Health [facility] Hospital 01-22-2024 09:16-0400Diastolic blood povbpbbi95 mm[Hg][facility]06-04-2024 09:16-0400Heart rate64 /[facility] 01-22-2024 09:16-0400Respiratory rate20 /[facility] 01-22-2024 09:16-0400Systolic blood yveikpxj397 mm[Hg][facility]02-09-2024 11:00-0500Body iigpwp343.64 cmBenjamin Ball Other [employer] [facility] Other 02-09-2024 11:00-0500Body mass index (BMI) [Ratio] 30.24 kg/t1Mohtlzjk Ball Other [facility] Other 02-09-2024 11:00-0500Body kgBenjamin Ball Other [facility] Other 02-09-2024 11:00-0500Respiratory rate20 /minBenjamin Ball Other [facility] Other 02-09-2024 11:00-5179JzM0% (BldA) [Mass fraction]97 % Cecilio Ball Other [facility] Other 01-23-2024 10:45-0500Body ecziwj026.64 cmBenjamin Ball Other [facility] Other 01-23-2024 10:45-0500Body mass index (BMI) [Ratio] 29.86 kg/t7Wgyuigqo Ball Other [facility] Other 01-23-2024 10:45-0500Body zkasytzfacq11.5 [degF] Cecilio Ball Other [facility] Other 01-23-2024 10:45-0500Body .92 kgBenjamin Ball Other [facility] Other 01-23-2024 10:45-0500Diastolic blood rjingwhp55 mm[Hg] Cecilio Ball Other [facility] Other 01-23-2024 10:45-0500Respiratory rate20 /minBenjamin Ball Other [facility] Other 01-23-2024 10:45-2870YoP0% (BldA) [Mass fraction]98 % Cecilio Ball Other [facility] Other 01-23-2024 10:45-0500Systolic blood qecnntuj613 mm[Hg] Cecilio Ball Other [facility] Other 12-13-2023 10:15-0500Body ulbmno559.64 cmBenjamin Ball Other [facility] Other 12-13-2023 10:15-0500Body mass index (BMI) [Ratio] 29.86 kg/d9Ofwadzrb Ball Other [facility] Other 12-13-2023 10:15-0500Body dmzmgu72.92 kgBenjamin Ball Other [facility] Other 12-13-2023 10:15-0500Diastolic blood kbwinxte95 mm[Hg] Cecilio Ball Other [employer] Other 12-13-2023 10:15-0500Respiratory rate20 /minBenjamin Ball Other [employer] Other 12-13-2023 10:15-0500Systolic blood ycbibthv982 mm[Hg] Cecilio Ball Other [facility] [employer] Other 11-28-2023 10:15-0500Body ijkkeq808.64 cmBenjamin Ball Other [facility] [employer] Other 11-28-2023 10:15-0500Body mass index (BMI) [Ratio] 29.89 kg/s9Rtkipexk Ball Other [facility] Other 11-28-2023 10:15-0500Body eblumb61.01 kgBenjamin Ball Other [facility] [employer] Other 11-28-2023 10:15-0500Diastolic blood amfabmxi02 mm[Hg] Cecilio Ball Other [facility] Other 11-28-2023 10:15-0500Respiratory rate20 /minBenjamin Ball Other [facility] Other 11-28-2023 10:15-0500Systolic blood pzxfarhk894 mm[Hg] Cecilio Ball Other [employer] [facility] Other 11-21-2023 14:45-0500Body fqhuwb435.64 cmBenjamin Ball Other [employer] [facility] Other 11-21-2023 14:45-0500Body mass index (BMI) [Ratio] 29.47 kg/a5Fozasplq Ball Other [facility] Other 11-21-2023 14:45-0500Body .83 kgBenjamin Ball Other [employer] [facility] Other 11-21-2023 14:45-0500Diastolic blood hnoubgcx82 mm[Hg] Cecilio Ball Other [employer] [facility] Other 11-21-2023 14:45-0500Respiratory rate20 /minBenjamin Ball Other [employer] [facility] Other 11-21-2023 14:45-0500Systolic blood bsyluqte642 mm[Hg] Cecilio Ball Other [employer] [facility] Other 11-01-2023 08:30-0400Body ssyiep157.64 cmBenjamin Ball Other [facility] Other 11-01-2023 08:30-0400Body mass index (BMI) [Ratio]29.6 kg/p6Ijlwrhtj Ball Other [employer] [facility] Other 11-01-2023 08:30-0400Body .19 kgBenjamin Ball Other [facility] Other 11-01-2023 08:30-0400Diastolic blood mm[Hg] Cecilio Ball Other [employer] [facility] Other 11-01-2023 08:30-0400Respiratory rate20 /minBenjamin Ball Other [employer] Other 11-01-2023 08:30-0400Systolic blood ireaeogu319 mm[Hg] Cecilio Ball Other [employer] [facility] Other 10-11-2023 13:45-0400Body ussfqk929.64 cmBenjamin Ball Other [employer] Other 10-11-2023 13:45-0400Body mass index (BMI) [Ratio] 28.95 kg/e8Bypcjphv Ball Other [facility] Other 10-11-2023 13:45-0400Body ydeghw10.38 kgBenjamin Ball Other [facility] [employer] Other 10-11-2023 13:45-0400Diastolic blood qyuhbdbr41 mm[Hg] Cecilio Ball Other [employer] Other 10-11-2023 13:45-0400Respiratory rate16 /minBenjamin Ball Other [facility] Other 10-11-2023 13:45-0400Systolic blood aghzapwe508 mm[Hg] Cecilio Ball Other [facility] Other 06-28-2023 08:30-0400Body kpgjzi548.64 cmBenjamin Ball Other [facility] Other 06-28-2023 08:30-0400Body mass index (BMI) [Ratio] 28.57 kg/v2Iibtlpvl Ball Other [employer] [facility] Other 06-28-2023 08:30-0400Body srmurq04.29 kgBenjamin Ball Other [employer] Other 06-28-2023 08:30-0400Diastolic blood wmryjnhv57 mm[Hg] Cecilio Ball Other [employer] Other 06-28-2023 08:30-0400Respiratory rate16 /minBenjamin Ball Other [employer] Other 06-28-2023 08:30-0400Systolic blood cwkskkup642 mm[Hg] Cecilio Ball Other [employer] Other 06-15-2023 08:15-0400Body xqyslq166.64 cmRobert Zavala II Other [facility] Other 06-15-2023 08:15-0400Body mass index (BMI) [Ratio] 27.44 kg/v1Iggfxe Benji II Other [facility] Other 06-15-2023 08:15-0400Body sotzkn40.11 kgRobert Benji II Other [facility] Other 04-24-2023 10:30-0400Body ufiaof129.64 cmBenjamin Ball Other [employer] [facility] Other 04-24-2023 10:30-0400Body mass index (BMI) [Ratio] 28.66 kg/n5Jmcntauh Ball Other [facility] Other 04-24-2023 10:30-0400Body rmuykl92.56 kgBenjamin Ball Other [employer] [facility] Other 04-24-2023 10:30-0400Diastolic blood mm[Hg] Cecilio Ball Other [employer] [facility] Other 04-24-2023 10:30-0400Respiratory rate12 /minBenjamin Ball Other [employer] Other 04-24-2023 10:30-0400Systolic blood skvsajwk841 mm[Hg] Cecilio Ball Other [facility] Other 03-23-2023 16:00-0400Body mass index (BMI) [Ratio] 29.21 kg/u6Mhzviz Benji II Other [employer] Other 03-23-2023 16:00-0400Body xudqcf20.1 kgRobert Zavala II Other [employer] Other 03-23-2023 10:30-0400Body zqrubr815.64 cmBenjamin Ball Other [facility] Other 03-23-2023 10:30-0400Body mass index (BMI) [Ratio] 29.23 kg/i6Nrwldnoe Ball Other [facility] Other 03-23-2023 10:30-0400Body nfufre64.15 kgBenjamin Ball Other [facility] Other 03-23-2023 10:30-0400Diastolic blood sehaeqbr66 mm[Hg] Cecilio Ball Other [facility] Other 03-23-2023 10:30-0400Respiratory rate20 /minBenjamin Ball Other [employer] [facility] Other 03-23-2023 10:30-0400Systolic blood mm[Hg] Cecilio Ball Other [facility] Other 02-23-2023 10:00-0500Body .64 cmBenjamin Ball Other [employer] Other 02-23-2023 10:00-0500Body mass index (BMI) [Ratio] 29.24 kg/j9Ocqebdgv Ball Other [employer] Other 02-23-2023 10:00-0500Body roknto83.19 kgBenjamin Ball Other [place] Other 02-23-2023 10:00-0500Diastolic blood cjdztirc67 mm[Hg] Cecilio Ball Other [place] Other 02-23-2023 10:00-0500Respiratory rate12 /minBenjamin Ball Other [place] Other 02-23-2023 10:00-0500Systolic blood cwxdjdah947 mm[Hg] Cecilio Ball Other [place] Other Encounters Encounter DateEncounter TypeCare ProviderFacilityStart: 05-13-2025 End: 69-11-6568gtdfqvnbirWzniubjp Ball DO Work Phone: [facility] Work Phone: Start: 05-13-2025 End: 33-94-3840Oapnlnv encounter procedureBenjamin Ball DO-[facility] Work Phone: Start: 04-27-2025 End: 54-19-6089dexkzvsppdRgwexanMarcel Villalobos MDFacility:PM Patricia Start: 04-03-2025 End: 76-69-1244okkqfljgnaIpkqanou Ball DO Work Phone: [facility] Work Phone: Start: 04-03-2025 End: 38-52-5399Dfqptrb encounter procedureBenjamin Ball DO-[facility] Work Phone: Start: 03-31-2025 End: 48-70-5120reuemcrbesViydhtck Ball DO Work Phone: [facility] Work Phone: Start: 03-31-2025 End: 46-90-3846Iouqcpc encounter procedureMil Sevilla MD-[facility] Work Phone: Start: 03-30-2025 End: 23-07-2176exahchwwthYzuwikcMaddie Villalobos MDFacility:PM [place] Start: 03-27-2025 End: 35-89-0351nebldwkrpzLmryefsq Ball DO Work Phone: [facility] Work Phone: Start: 03-27-2025 End: 31-21-9727Wowetcr encounter procedureBenjamin Ball DO-[facility] Work Phone: Start: 85-49-4356Zoj-patient / Non-visitChristopher Vida Marroquin MD-[facility] Work Phone: Start: 45-82-1434Fli-patient / Non-visitCatherine Derek IMPORT AND EXPORT CLERK-[facility] Work Phone: Start: 48-92-2060Kam-patient / Non-visitNatalie Alicia Melchor PAC-[facility] Work Phone: Start: 05-07-2164Sig-patient / Non-visitBenjamin Ball DO-[facility] Work Phone: Start: 02-17-2025 End: 62-80-8945pryyuqzywsZloeolxl Ball DO Work Phone: [facility] Work Phone: Start: 02-17-2025 End: 78-03-2166Wpzswek encounter procedureMil Sevilla MD-[facility] Work Phone: Start: 02-17-2025 End: 48-03-6683Sczdmov encounter procedureMil Sevilla MD-Lesli Garcia Start: 02-17-2025 End: 87-87-4046rwqnlpprtgEoirsdlg Ball DO Work Phone: [facility] Work Phone: Start: 02-11-2025 End: 74-33-6879dfshusxfrkXblgtmav Ball DO Work Phone: [facility] Work Phone: Start: 02-11-2025 End: 06-15-7126Mzgybae encounter procedureBenjamin Ball DO-[facility] Work Phone: Start: 01-29-2025 End: 76-14-2632wlbqwzxiwtYikukntdgSt. [facility] Work Phone: Start: 01-29-2025 End: 79-64-6653Nueuoux encounter procedureC[facility] Work Phone: Start: 01-20-2025 End: 89-55-5697ozrmbggfvrHoieqdgrnSt. [facility] Work Phone: Start: 01-20-2025 End: 78-08-8101Ozvgolb encounter procedureFircentra health Physician Group-[facility] Work Phone: Start: 01-05-2025 End: 72-53-6573mnxlckelcfGszzbisMarcel Villalobos MDFacility:APOLLO Gomez Start: 12-09-2024 End: 43-59-3342nyqvpvcyfaOaojzxdhsSt. [facility] Work Phone: Start: 12-09-2024 End: 31-79-7583Spkqjgl encounter procedureCone Health Physician GroupA[facility] Work Phone: Start: 78-85-9081Nto-patient / Non-visitSampson Regional Medical Centersingh Physician Group-[facility] Work Phone: Start: 11-17-2024 End: 27-66-8968esnoesxxzzIvrknum Vytautas Giedraitis MDFacility:PM [place] Start: 11-06-2024 End: 84-64-2336fkxuqowjioFbsgajcdsSt. [facility] Work Phone: Start: 11-06-2024 End: 73-92-5509Bfsnwci encounter procedureCone Health Physician GroupAden[facility] Work Phone: Start: 10-01-2024 End: 76-89-5786yclmaragpvMvjzdhxebEast [facility] Work Phone: Start: 10-01-2024 End: 25-90-7811Ddrsdqk encounter procedureCone Health Physician GroupAdena [facility] Work Phone: Start: 08-18-2024 End: 15-54-6366gxuenvjtirEnvubzt Vytautas Giedraitis MDFacility:PM [place] Start: 08-04-2024 End: 03-80-7093vvlevltqlqTrzjybe Vytautas Giedraitis MDFacility:PM [place] Start: 07-14-2024 End: 49-94-7717xglazcjaypJhwomsh Vytautas Giedraitis MDFacility:PM [place] Start: 05-28-2024 End: 56-01-8632vkosivlauaRrcvxlnekSt. [facility] Work Phone: Start: 05-28-2024 End: 85-61-1108Atidoxl encounter procedureCone Health Physician GroupAden[facility] Work Phone: Start: 05-26-2024 End: 12-36-8137xgqqeeazzaIywoypm Vytautas Giedraitis MDFacility:PM [place] Start: 01-22-2024 End: 32-49-4721gclexrwhkdZwgeawrloSt. [facility] Work Phone: Start: 01-22-2024 End: 01-61-0433Zjitltd encounter procedureCone Health Physician Group-[facility] Work Phone: Start: 57-51-1096Nok-patient / Non-visitCone Health Physician Group-[facility] [employer] Work Phone: Start: 09-28-2023 End: 95-74-6898iywhhkqktmZinytspr Ball Other [employer] Other Start: 15-58-2966Muklof outpatient visit 15 minutes Cecilio BallFP[facility] ClinicStart: 33-62-0437Xnjvudwxr encounterBenjamin BallFP[facility] ClinicStart: 09-21-2023 End: 11-14-0299whzcqmiufyOdjezclj Ball Other [employer] Other Start: 26-18-8653Oitzyxyxr encounterBenjamin BallFP[facility] ClinicStart: 09-11-2023 End: 47-11-6086tynqavafwuCywvnhkh Ball Other [employer] Other Start: 88-55-0291Cnfxfj outpatient visit 15 minutes Cecilio BallFP[facility] ClinicStart: 25-43-9663Haisnnjaf encounterBenjamin BallFP[facility] ClinicStart: 09-03-2023 End: 82-04-9361zqweahkqjpUlpcpxjm Ball Other [employer] Other Start: 17-18-7123Eaeztfqgi encounterBenjamin BallFP[facility] ClinicStart: 08-03-2023 End: 12-85-6714ulgafiudmuZtiuuubw Ball Other [employer] Other Start: 19-97-7671Gkteqssur encounterBenjamin BallFP[facility] ClinicStart: 08-01-2023 End: 46-30-5562slexsyflsbMtisxtvu Ball Other [email or web address] Other Start: 18-78-1608Rnqtry outpatient visit 15 minutes Cecilio BallFP[facility] ClinicStart: 07-17-2023 End: 41-82-7537mbqvtzapwnKltwbqnd Ball Other [facility] [employer] Other Start: 83-04-8305Lrurdn outpatient visit 15 minutes Cecilio BallFP[facility] ClinicStart: 07-10-2023 End: 02-03-4789bfgbfdvbzfBvjjjfnk Ball Other [facility] [employer] Other Start: 74-09-9622Dhjgli outpatient visit 15 minutes Cecilio BallFP[facility] ClinicStart: 06-20-2023 End: 00-35-8557mxbsegxwqmAnjlqdoi Ball Other [facility] [employer] Other Start: 33-36-6905Onelnx outpatient visit 25 minutes Cecilio BallFP[facility] ClinicStart: 06-15-2023 End: 92-37-9991pzdgqnctuyJimgwxpy Ball Other [facility] [employer] Other Start: 25-87-4411Rkmcbewkb encounterBenjamin BallFP[facility] ClinicStart: 05-30-2023 End: 93-41-7201nfcrtfdjasJyqtdmhw Ball Other [employer] Other Start: 99-40-8764Rsmstf outpatient visit 15 minutes Cecilio BallFP[facility] ClinicStart: 37-55-0301Pszhnslhr encounterSjuliocesar Jaeger DO Work Phone: spine InstituteComment on above:Follow Up Phone Call Start: 03-15-2023 End: 75-02-3528dwjbblriefABHHFOSS Sis MILFacility:[facility] HospitalStart: 82-49-5681Qhjsoc OnlyDelio Jaeger DO Work Phone: ProceduresComment on above:Pseudoclaudication syndrome (Primary Dx); Lumbar radiculopathyStart: 61-71-9153Nptpdzczs encounterSjuliocesar Jaeger DO Work Phone: Spine InstituteComment on above:ProcedureStart: 33-77-7604Zllyqisno encounterSanthgonzalo Jaeger DO Work Phone: spine InstituteComment on above:AppointmentStart: 02-14-2023 End: 76-23-2237qbrljyqbujMzdbweke Ball Other [employer] Other Start: 91-67-1928Iqzbtco encounter procedureBenjamin BallFP[facility] ClinicStart: 02-13-2023 End: 36-85-2955fgseknsorzMifrnsxu Ball Other [place] Other Start: 88-43-9133Peshbrwww encounterBenjamin BallFP[facility] ClinicStart: 02-08-2023 End: 33-14-7453quupcclkhyPvaocscd Ball Other [employer] Other Start: 41-64-8490Pjwwcymex encounterBenjamin BallFP[facility] ClinicStart: 02-01-2023 End: 67-79-4187ejiwdyiebrIpmijg Benji II Other [employer] Other Start: 99-48-7262Poawzn outpatient visit 25 minutes Jose Enrique Leblanc IIG [facility]icsStart: 12-11-2022 End: 67-55-9047agjhjavfluZixrgrna Ball Other [place] Other Start: 83-35-4665Dzuweg outpatient visit 15 minutes Cecilio BallFP[facility] ClinicStart: 11-09-2022 End: 02-71-8604Uyvivqa encounter procedureMD Jose Enrique Leblanc II Work Phone: [facility] Start: 11-09-2022 End: 76-13-5287qzjghzmgbuAC Jose Enrique Leblanc II Work Phone: [facility] Work Phone: Start: 87-94-3460Zygmqx outpatient new 45 minutes Jose Enrique Leblanc IIFPG [facility]opedicsStart: 49-10-8854Kvhlmr outpatient visit 15 minutesBenjamin BallFP[facility] ClinicStart: 11-05-2022 End: 28-47-0085tkwklytbjnFE CECILIO BALLFacility:M1Bjcwc: 10-12-2022 End: 98-26-5728fwehnzmpmvHoashilo Ball Other [place] Other Start: 93-85-0835Bcfrvb outpatient visit 25 minutes Cecilio Ball[facility] ClinicStart: 09-27-2022 End: 30-62-6296cbllprcutgZahanjbq Ball Other [place] Other Start: 41-43-1621Mjeuoosqq encounterBenjamin BallFP[facility] ClinicStart: 09-26-2022 End: 74-35-2487yixxhpvujcXI CECILIO BALLFacility:S6Uhhbk: 08-25-2022 End: 52-66-7236dbtmnpnqhsHkwizrxo Ball Other [place] Other Start: 51-71-2419Xiboayrcn encounterBenjamin BallFP[facility] ClinicStart: 08-10-2022 End: 62-26-5412uvjuifqlddSM CECILIO BALLFacility:C2Iiwqp: 02-09-2022 End: 06-05-9551eeulbmhzytRU CECILIO BALLFacility:X9Mlplz: 12-06-2021 End: 79-45-4895aupbylrznqRC CECILIO BALLFacility:K8Jkvfd: 01-22-2018 End: 36-27-1766Ccvxhkl encounterBENREGINA~[id number] UNKNOWN BALLFacility:[facility] Procedures DateProcedureProcedure DetailPerforming ClinicianStart: 01-50-4596Dykqb X-ray of left wristBenregina Ball DO Work Phone: Start: 07-88-9868Mlzcb X-ray of left wristBenregina Ball DO Work Phone: Start: 81-53-2192Dpiidi X-rayMD Jose Enrique Leblanc II Work Phone: Start: 95-80-6438Tvtraoqrzn examination of kneeMD Jose Enrique Leblanc II Work Phone: Plan of Treatment DateCare ActivityDetailAuthorStart: 98-07-0312Rogau X-ray of left wristXR wrist LT 2VBluffton Hospitaltart: 82-81-7870YM Wrist - left 2 Views [facility]: 88-70-5973Gkwhv X-ray of left wristXR wrist LT min 3V*[facility]: 28-62-2121KJ Wrist - left GE 3 ViewsBluffton Hospitaltart: 09-29-2318Mywbfsc referralK[facility] Work Phone: Start: 76-95-0200Krtinasim vaccinationINFLUENZA (#1) [facility]art: 01-29-6717BJDXV-19 VACCINE (5 - Moderna series)COVID-19 VACCINE (5 - Moderna series)[facility]art: 83-99-9963PZMQKVL DIRECTIVE DISCUSSIONADVANCE DIRECTIVE DISCUSSIONCleOhioHealth O'Bleness Hospitaltart: 08-20-2022 DEPRESSION ASSESSMENTDEPRESSION ASSESSMENTCommunity Regional Medical Centertart: 09-19-2021 COVID-19 VACCINE (4 - Booster for Moderna series)COVID-19 VACCINE (4 - Booster for Moderna series)[facility]: 61-41-7977YAOYT-19 VACCINE (4 - Moderna series)COVID-19 VACCINE (4 - Moderna series)[facility]art: 27-96-5004SMYLCNTH SCREENDIABETES SCREENCommunity Regional Medical Centertart: 1990 SHINGRIX VACCINE (1 of 2)SHINGRIX VACCINE (1 of 2)[facility]art: 25-54-1816Mhyep microalbumin profileDTAP,TDAP,TD (1 - Tdap)[facility] Start: 79-27-0273POUNTNIJVHQGHTQZNNEZZvwxntfkq ClinicStart: 1946 PNEUMOCOCCAL: 65+ (1 - PCV)PNEUMOCOCCAL: 65+ (1 - PCV)[facility] Comprehensive metabolic 2000 panel - Serum or PlasmaMercy Health Willard HospitalPatient referralK[facility] Health [facility] Work Phone: SPINE INTERVENTION PROCEDURESPINE INTERVENTION PROCEDURE Procedures Routine Spinal stenosis, lumbar region with neurogenic claudication Lumbar radiculopathy, chronic Ordered: 02/19/2023[facility] Work Phone: Comment on above:Ordered: 02/19/2023XR Wrist - left GE 3 [facility] Immunizations Immunization DateImmunizationNotesCare KajfhdaiWnbdipzh69-33-8138ynbedqlyo, high dose seasonal, preservative-freeBenjamin Ball DO Work Phone: [facility]10-09-2024influenza, high dose seasonal, preservative-freeMercy Health Willard Hospital10-11-2023 COVID-19 Vaccine Moderna - Documentation Purposes OnlyBenjamin Brandon Other [facility]10-11-2023influenza virus vaccine, unspecified formulationMercy Health Willard Hospital 47-40-7409ybprrupoa, high dose seasonal, preservative-freeBenjamin Ball Other [employer] Other [id number] virus vaccine, split virus (incl. purified surface antigen)Cecilio Taylor Other [email or web address] Other 10151928-05-8469aetkfjqjc virus vaccine, unspecified formulationMercy Health Willard Hospital10-25-2022influenza, high dose seasonal, preservative-freeRobert Benji II Other [employer] Other [id number]-64 Pfizer (bivalent)Jose Enrique Benji II Other [facility]10-12-2022COVID-19 Pfizer (Pediatric)Cecilio Taylor Other [facility]12-06-2021COVID-19 Vaccine Moderna - Documentation Purposes OnlyRobert Zavala II Other [facility]09-14-2021zoster vaccine recombinantRobert Zavala II Other [facility]09-14-2021zoster vaccine, liveBenjatata Ball Other [facility]06-11-2021zoster vaccine recombinantRobert Zavala II Other [facility]06-11-2021zoster vaccine, liveBenjatata Ball Other [facility]03-08-2021COVID-19 Vaccine Moderna - Documentation Purposes OnlyRobert Zavala II Other [facility]02-08-2021COVID-19 Vaccine Moderna - Documentation Purposes OnlyRobert Zavala II Other [facility]10-05-2020influenza virus vaccine, split virus (incl. purified surface antigen)Cecilio Taylor Other [employer] Other 10270829-30-0205cnowfhybw virus vaccine, unspecified formulationMercy Health Willard Hospital05-17-2019diphtheria, tetanus toxoids and acellular pertussis vaccine, unspecified formulationCecilio Taylor Other [facility]05-08-2019 pneumococcal polysaccharide vaccine, 23 valentRdeaconess health systemt Zavala II Other [facility]09-11-2018influenza virus vaccine, split virus (incl. purified surface antigen)Cecilio Taylor Other [place] Other 09041463-17-4819raqebookl virus vaccine, unspecified formulationMercy Health Willard Hospital08-21-2017influenza virus vaccine, split virus (incl. purified surface antigen)Cecilio Taylor Other [place] Other 08-915545-27-2270xhebbbgvf virus vaccine, unspecified formulationMercy Health Willard Hospital10-12-2016zoster vaccine, liveRobert Zavala II Other [facility]09-24-2016influenza virus vaccine, split virus (incl. purified surface antigen)Cecilio Taylor Other [place] Other 09-821654-84-8855fzwgvzsdl virus vaccine, unspecified formulationMercy Health Willard Hospital09-20-2015influenza virus vaccine, split virus (incl. purified surface antigen)Cecilio Taylor Other [place] Other 09-715555-97-5804gfskxfmof virus vaccine, unspecified formulationMercy Health Willard Hospital07-18-2015pneumococcal conjugate vaccine, 13 valentRobert Zavala II Other [facility]09-18-2014tetanus and diphtheria toxoids, adsorbed, preservative free, for adult use (5 Lf of tetanus toxoid and 2 Lf of diphtheria toxoid)Cecilio Taylor Other [facility]09-04-2013tetanus and diphtheria toxoids, adsorbed, preservative free, for adult use (5 Lf of tetanus toxoid and 2 Lf of diphtheria toxoid)Cecilio Taylor Other [facility]01-02-2013 pneumococcal polysaccharide vaccine, 23 valvedaBerachel Tayolr Other [facility]04-24-2012zoster vaccine, liveRnicholet Benji II Other [facility] Payers DatePayer CategoryPayerPolicy [id number] [id number] [id number] [id number] [id number] 2.16.840.8.65868[id number] 2..840.9.846949.80 1941 [id number] 2..840.1.339848.3.57[id number] 2.16.840.1.113804.3.57[id number] 2.16.840.1.340646.3.57[id number] 2.16.840.1.354687.3.57[id number] 2.16.840.1.442889.3.57[id number] 2.16.840.1.070369.3.57[id number] 2.16.840.1.053468.3.57[id number] 2.16.840.1.357057.3.57[id number] 2.16.840.1.226454.3.57[id number] 2.16.840.1.924393.3.57[id number] 2.16.840.1.647383.3.57[id number] 2.16.840.1.041157.3.57[id number] 2.16.840.1.0[id number] 2.16.840.1.622256.3.579.2.531 [id number] 2.16.840.1.702846.3.579.2.531 Social History DateTypeDetailFacilityStart: 05-09-2021 End: 12-78-0585Epp Assigned At BirthCommunity [facility] Medical Centertart: 71-25-7481Smi [facility]: 06-13-2017 End: 90-75-2709Pjqnocf smoking status NHISNever smoked tobaccoRegency Hospital Company Start: 31-14-6396Czsrcxe use and exposureSmokeless tobacco non-userCommunity Regional Medical Centertart: 60-59-9929Iyxqmmr intakeCurrent drinker of alcohol (finding) [facility]ertart: 09-38-2816Ppupxwt CommentBailey's in coffeeCommunity Regional Medical Centertart: 58-58-6984Kwo Assigned At BirthNot on fileCommunity Regional Medical Centertart: 05-09-2021 End: 68-54-7500Smpdgdv of Social functionCleveland ClinicAdult Depression Screening Xsznipmmjx0Wmkytwotb ClinicStart: 10-01-2024 End: 08-00-3994WsiHdgt (finding)[facility] Medical Equipment Procedure CodeEquipment CodeEquipment Original TextEquipment IdentifierDates [place] Swivelock Tenodesis 8mm Biocomposite 19.5mm Suture [place] Eyelet - [id number]: 10-87-6719Khfjrb V40 +0mm Offset [place] Taper Titanium Adapter Hip - [id number]: 87-73-2276Gdcxm Trident Secur-Fit Torx 6.5mm Titanium 20mm Bone Sterile Acetabular - [id number]: 01-01-2018 Clinical Notes 08-25-2022 to 02-17-2025 Note Date & ViluInhqXlrzebej64-72-0849 Evaluation note* Diagnosis Onset Date Resolution Status Admit Date Other fractures of lower end of left rad ius, initial encounter for closed acuteJuly 2024 9:49amCellulitis of leg without foot, rightacuteAugust 2024 1:27pmChronic bronchitis, simpleacuteAugust 2024 1:27pmSecond degree burn of right lower legacuteAugust 2024 1:27pmOther fractures of lower end of left radius, initial encounter for closedacuteAugust 2024 8:09am Allergic rhinitisacuteAugust 2024 9:40amCellulitis of leg without foot, rightacuteAugust 2024 9:40amSecond degree burn of right lower legacute April 03, 2025 9:40amAortic stenosisacuteSeptember 2024 8:50amBenign prostatic hyperplasia with lower urinary tract symptomsacuteSeptember 2024 8:50amChronic bronchitis, simpleacuteSeptember 2024 8:50amChronic kidney disease, stage 3aacuteSeptember 2024 8:50amElevated cholesterolacute May 13, 2025 8:50amGeneralized anxiety disorderacuteSeptember 2024 8:50amHypertensionacuteSeptember 2024 8:50amIFG (impaired fasting glucose)acuteSeptember 2024 8:50amLumbar spondylolysisacuteSeptember 2024 8:50amNocturnal leg crampsacuteSeptember 2024 8:50amObstructive sleep apneaacuteSeptember 2024 8:50am [facility] Work Phone: 1(260) 461-803006-03-2025 Evaluation note* Diagnosis Onset Date Resolution Status Admit Date Acute exacerbation of chronic obstructiv e airways disease acuteJune 2024 10:43amChronic kidney disease, stage 3aacuteJun2024 10:43amContusion of left wristacuteJanuary 20, 2025 10:43amHypertensionacuteJune 2024 10:43amLeft wrist painacuteJune 2024 10:43amObstructive sleep apneaacuteJun2024 10:43amOther fractures of lower end of left radius, initial encounter for closedacuteJune 2024 8:45amBenign prostatic hyperplasia with lower urinary tract symptomsacuteJun2024 8:59amChronic bronchitis, simpleacuteJune 2024 8:59amChronic kidney disease, stage 3a acuteJun2024 8:59amDizziness on standingacuteFebruary 11, 2025 8:59am Elevated cholesterolacuteJun2024 8:59amGeneralized anxiety disorderacute February 11, 2025 8:59amHypertensionacuteJun2024 8:59amIFG (impaired fasting glucose)acuteJun2024 8:59amLumbar spondylolysisacuteJun2024 8:59amNocturnal leg crampsacuteJune 2024 8:59amObstructive sleep apneaacuteFebruary 11, 2025 8:59amMedicare annual wellness visit, subsequent noneactiveJun2024 8:59amOther fractures of lower end of left radius, initial encounter for closedacuteJuly 2024 9:49amCellulitis of leg without foot, rightacuteAugust 2024 1:27pmChronic bronchitis, simpleacuteAugust 2024 1:27pmSecond degree burn of right lower legacuteAugust 2024 1:27pm [facility] Work Phone: 1(932) 226-623006-03-2025 Evaluation note* Diagnosis Onset Date Resolution Status Admit Date Acute exacerbation of chronic obstructiv e airways disease acuteJune 2024 10:43amChronic kidney disease, stage 3aacuteJune 2024 10:43amContusion of left wristacuteJun2024 10:43amHypertensionacuteJune 2024 10:43amLeft wrist painacuteJune 2024 10:43amObstructive sleep apneaacuteJune 2024 10:43amOther fractures of lower end of left radius, initial encounter for closedacuteJune 2024 8:45amBenign prostatic hyperplasia with lower urinary tract symptomsacuteJune 2024 8:59amChronic bronchitis, simpleacuteJune 2024 8:59amChronic kidney disease, stage 3a acuteJun2024 8:59amDizziness on standingacuteJun2024 8:59am Elevated cholesterolacuteJune 2024 8:59amGeneralized anxiety disorderacute February 11, 2025 8:59amHypertensionacuteJun2024 8:59amIFG (impaired fasting glucose)acuteJun2024 8:59amLumbar spondylolysisacuteJune 2024 8:59amNocturnal leg crampsacuteJune 2024 8:59amObstructive sleep apneaacuteJun2024 8:59amMedicare annual wellness visit, subsequent noneactiveJune 2024 8:59amOther fractures of lower end of left radius, initial encounter for closedacuteJuly 2024 9:49amCellulitis of leg without foot, rightacuteAugust 2024 1:27pmChronic bronchitis, simpleacuteAugust 2024 1:27pmSecond degree burn of right lower legacuteAugust 2024 1:27pmOther fractures of lower end of left radius, initial encounter for closed acuteAugust 2024 8:09am [facility] Work Phone: 1(190) 659-323306-03-2025 Evaluation note* Diagnosis Onset Date Resolution Status Admit Date Acute exacerbation of chronic obstructiv e airways disease acuteJune 2024 10:43amChronic kidney disease, stage 3aacuteJune 2024 10:43amContusion of left wristacuteJune 2024 10:43amHypertensionacuteJune 2024 10:43amLeft wrist painacuteJune 2024 10:43amObstructive sleep apneaacuteJune 2024 10:43amOther fractures of lower end of left radius, initial encounter for closedacuteJune 2024 8:45amBenign prostatic hyperplasia with lower urinary tract symptomsacuteJune 2024 8:59amChronic bronchitis, simpleacuteJune 2024 8:59amChronic kidney disease, stage 3a acuteJun2024 8:59amDizziness on standingacuteJun2024 8:59am Elevated cholesterolacuteJune 2024 8:59amGeneralized anxiety disorderacute February 11, 2025 8:59amHypertensionacuteJune 2024 8:59amIFG (impaired fasting glucose)acuteJun2024 8:59amLumbar spondylolysisacuteJune 2024 8:59amNocturnal leg crampsacuteJune 2024 8:59amObstructive sleep apneaacuteJun2024 8:59amMedicare annual wellness visit, subsequent noneactiveJun2024 8:59amOther fractures of lower end of left radius, initial encounter for closedacuteJuly 2024 9:49amCellulitis of leg without foot, rightacuteAugust 2024 1:27pmChronic bronchitis, simpleacuteAugust 2024 1:27pmSecond degree burn of right lower legacuteAugust 2024 1:27pmOther fractures of lower end of left radius, initial encounter for closed acuteAugust 2024 8:09amAllergic rhinitisacuteAugust 2024 9:40am Cellulitis of leg without foot, rightacuteAugust 2024 9:40amSecond degree burn of right lower legacuteAugust 2024 9:40am [facility] Work Phone: 1(600) 685-705604-22-2025 Evaluation note* Diagnosis Onset Date Resolution Status Admit Date Benign prostatic hyperplasia with lower urinary tract symptoms acuteApril 2024 3:30pmChronic kidney disease, stage 3aacuteApril 2024 3:30pmHypertensionacuteApril 2024 3:30pmIFG (impaired fasting glucose)acuteApril 2024 3:30pmLumbar spondylolysisacuteApril 2024 3:30pmNonfamilial nocturnal leg crampsacuteApril 2024 3:30pmObstructive sleep apneaacuteApril 2024 3:30pmChronic obstructive pulmonary disease with (acute) lower respiratory infectionnoneactiveApril 2024 3:30pmAcute exacerbation of chronic obstructive airways diseasenoneactiveApril 2024 3:30pmAcute exacerbation of chronic obstructive airways diseaseacuteJune 2024 10:43amChronic kidney disease, stage 3aacuteJun2024 10:43amContusion of left wristacuteJune 2024 10:43amHypertensionacuteJune 2024 10:43am Left wrist painacuteJune 2024 10:43amObstructive sleep apneaacuteJun2024 10:43amOther fractures of lower end of left radius, initial encounter for closedacuteJune 2024 8:45amBenign prostatic hyperplasia with lower urinary tract symptomsacuteJun2024 8:59amChronic bronchitis, simpleacuteJun2024 8:59amChronic kidney disease, stage 3aacuteJune 2024 8:59am Elevated cholesterolacuteFebruary 11, 2025 8:59amGeneralized anxiety disorderacute February 11, 2025 8:59amHypertensionacuteJun2024 8:59amIFG (impaired fasting glucose)acuteJun2024 8:59amLumbar spondylolysisacuteJun2024 8:59amNonfamilial nocturnal leg crampsacuteJune 2024 8:59am Obstructive sleep apneaacuteJun2024 8:59amMedicare annual wellness visit, subsequentnoneactiveJun2024 8:59am [facility] Work Phone: 1(925) 496-222004-22-2025 Evaluation note* Diagnosis Onset Date Resolution Status Admit Date Benign prostatic hyperplasia with lower urinary tract symptoms acuteApril 2024 3:30pmChronic kidney disease, stage 3aacuteApril 2024 3:30pmHypertensionacuteApril 2024 3:30pmIFG (impaired fasting glucose)acuteApril 2024 3:30pmLumbar spondylolysisacuteApril 2024 3:30pmNonfamilial nocturnal leg crampsacuteApril 2024 3:30pmObstructive sleep apneaacuteApril 2024 3:30pmChronic obstructive pulmonary disease with (acute) lower respiratory infectionnoneactiveApril 2024 3:30pmAcute exacerbation of chronic obstructive airways diseasenoneactiveApril 2024 3:30pmAcute exacerbation of chronic obstructive airways diseaseacuteJune 2024 10:43amChronic kidney disease, stage 3aacuteJune 2024 10:43amContusion of left wristacuteJune 2024 10:43amHypertensionacuteJune 2024 10:43am Left wrist painacuteJune 2024 10:43amObstructive sleep apneaacuteJune 2024 10:43amOther fractures of lower end of left radius, initial encounter for closedacuteJune 2024 8:45amBenign prostatic hyperplasia with lower urinary tract symptomsacuteJune 2024 8:59amChronic bronchitis, simpleacuteJune 2024 8:59amChronic kidney disease, stage 3aacuteJune 2024 8:59am Dizziness on standingacuteJune 2024 8:59amElevated cholesterolacuteJune 2024 8:59amGeneralized anxiety disorderacuteJune 2024 8:59am HypertensionacuteJune 2024 8:59amIFG (impaired fasting glucose)acuteJune 2024 8:59amLumbar spondylolysisacuteJune 2024 8:59amNocturnal leg crampsacuteJune 2024 8:59amObstructive sleep apneaacuteJune 2024 8:59amMedicare annual wellness visit, subsequentnoneactiveJune 2024 8:59am Other fractures of lower end of left radius, initial encounter for closedacute February 17, 2025 9:49am [facility] Work Phone: 1(995) 415-860003-20-2025 Evaluation note* Diagnosis Onset Date Resolution Status Admit Date Chronic obstructive pulmonary disease wi th (acute) lower respiratory infection noneactiveMarch 2024 8:56amAcute exacerbation of chronic obstructive airways diseasenoneactiveMarch 2024 8:56amBenign prostatic hyperplasia with lower urinary tract symptomsacuteApril 2024 3:30pmChronic kidney disease, stage 3aacuteApril 2024 3:30pmHypertensionacuteApril 2024 3:30pmIFG (impaired fasting glucose)acuteApril 2024 3:30pmLumbar spondylolysisacuteApril 2024 3:30pmNonfamilial nocturnal leg crampsacute December 09, 2024 3:30pmObstructive sleep apneaacuteApril 2024 3:30pm Chronic obstructive pulmonary disease with (acute) lower respiratory infection noneactiveApril 2024 3:30pmAcute exacerbation of chronic obstructive airways diseasenoneactiveApril 2024 3:30pmAcute exacerbation of chronic obstructive airways diseaseacuteJune 2024 10:43amChronic kidney disease, stage 3aacuteJune 2024 10:43amContusion of left wristacuteJune 2024 10:43amHypertensionacuteJune 2024 10:43amLeft wrist painacuteJune 2024 10:43amObstructive sleep apneaacuteJune 2024 10:43amOther fractures of lower end of right radius, initial encounter for closedacuteJune 2024 8:45am [facility] Work Phone: 1(980) 420-453303-20-2025 Evaluation note* Diagnosis Onset Date Resolution Status Admit Date Chronic obstructive pulmonary disease wi (acute) lower respiratory infection noneactiveMarch 2024 8:56amAcute exacerbation of chronic obstructive airways diseasenoneactiveMarch 2024 8:56amBenign prostatic hyperplasia with lower urinary tract symptomsacuteApril 2024 3:30pmChronic kidney disease, stage 3aacuteApril 2024 3:30pmHypertensionacuteApril 2024 3:30pmIFG (impaired fasting glucose)acuteApril 2024 3:30pmLumbar spondylolysisacuteApril 2024 3:30pmNonfamilial nocturnal leg crampsacute December 09, 2024 3:30pmObstructive sleep apneaacuteApril 2024 3:30pm Chronic obstructive pulmonary disease with (acute) lower respiratory infection noneactiveApril 2024 3:30pmAcute exacerbation of chronic obstructive airways diseasenoneactiveApril 2024 3:30pmAcute exacerbation of chronic obstructive airways diseasenoneactiveJune 2024 10:43amChronic kidney disease, stage 3aacuteJune 2024 10:43amContusion of left wristacuteJune 2024 10:43amHypertensionacuteJune 2024 10:43amLeft wrist painacuteJune 2024 10:43amObstructive sleep apneaacuteJune 2024 10:43am [facility] Work Phone: 1(383) 833-865802-12-2025 Evaluation note* Diagnosis Onset Date Resolution Status Admit Date Chronic bronchitis, simple acuteFebruary 2024 8:30amChronic kidney disease, stage 3aacuteFebruary 2024 8:30amGeneralized anxiety disorderacuteFebruary 2024 8:30am HypertensionacuteFebruary 2024 8:30amIFG (impaired fasting glucose)acute October 01, 2024 8:30amLumbar spondylolysisacuteFebruary 2024 8:30am Obstructive sleep apneaacuteFebruary 2024 8:30amChronic obstructive pulmonary disease with (acute) lower respiratory infectionnoneactiveMar 2024 8:56amAcute exacerbation of chronic obstructive airways diseasenoneactive March 2024 8:56am [facility] Work Phone: 1(217) 173-507902-12-2025 Evaluation note* Diagnosis Onset Date Resolution Status Admit Date Chronic bronchitis, simple acuteFebruary 2024 8:30amChronic kidney disease, stage 3aacuteFebruary 2024 8:30amGeneralized anxiety disorderacuteFebruary 2024 8:30am HypertensionacuteFebruary 2024 8:30amIFG (impaired fasting glucose)acute October 01, 2024 8:30amLumbar spondylolysisacuteFebruary 2024 8:30am Obstructive sleep apneaacuteFebruary 2024 8:30amChronic obstructive pulmonary disease with (acute) lower respiratory infectionnoneactiveNovember 06, 2024 8:56amAcute exacerbation of chronic obstructive airways diseasenoneactive November 06, 2024 8:56amChronic obstructive pulmonary disease with (acute) lower respiratory infectionnoneactiveApril 2024 3:30pmAcute exacerbation of chronic obstructive airways diseasenoneamercy [facility]April 2024 3:30pm [facility] Work Phone: 1(946) 936-670802-12-2025 Evaluation note* Diagnosis Onset Date Resolution Status Admit Date Chronic bronchitis, simple acuteFebruary 2024 8:30amChronic kidney disease, stage 3aacuteFebruary 2024 8:30amGeneralized anxiety disorderacuteFebruary 2024 8:30am HypertensionacuteFebruary 2024 8:30amIFG (impaired fasting glucose)acute October 01, 2024 8:30amLumbar spondylolysisacuteFebruary 2024 8:30am Obstructive sleep apneaacuteFeuary 2024 8:30am [facility] Work Phone: 1(515) 943-396106-04-2024 Evaluation note* Diagnosis Onset Date Resolution Status Chronic bronchitis, simple acuteChronic kidney disease, stage 3aacuteElevated cholesterolacuteGeneralized anxiety disorderacuteHypertensionacuteLumbar spondylolysisacuteObstructive sleep apneaacuteMedicare annual wellness visit, [facility] Work Phone: 1(118) 860-922102-09-2024 Evaluation note* Encounter Date Diagnosis Assessment Notes Treatment Notes Treatment Clinical Notes Sep, Acute bronchitis due to other sp ecified organisms (ICD-10 - J20.8) Completed antibiotics No further antibiotics recommended. Respiratory symptoms lingering but expected due to his underlying chronic lung disease Sep,hronic obstructive pulmonary disease with (acute) exacerbation (ICD-10 - J44.1)Finished steroids and stopped HHN. He will need to continue HHN at least every morning for next couple weeks. I explained that the mucous and coughing may take several weeks to clear As long as he is afebrile and clinically improving, no further treatment necessary [facility] Other 02-02-2024 Evaluation note* Encounter Date Diagnosis Assessment Notes Treatment Notes Treatment Clinical Notes Sep, Carotid bruit, unspecified later ality (ICD-10 - R09.89) [facility] Other 01-23-2024 Evaluation note* Encounter Date Diagnosis Assessment Notes Treatment Notes Treatment Clinical Notes Aug, Acute bronchitis due to other sp ecified organisms (ICD-10 - J20.8) Instructed to use Robitussin or Mucinex for cough, saline or Flonase NS for congestion, Tylenol forpain and fever. Aug,hronic obstructive pulmonary disease with (acute) lower respiratory infection (ICD-10 - J44.0)Instructed to use Robitussin or Mucinex for cough, saline or Flonase NS for congestion, Tylenol forpain and fever. Initiate antibiotics. Aug,hronic obstructive pulmonary disease with (acute) exacerbation (ICD-10 - J44.1)Increase Albuterol to tid Initiate Prednisone _update office on Sunday [facility] Other 01-15-2024 Evaluation note* Encounter Date Diagnosis Assessment Notes Treatment Notes Treatment Clinical Notes Aug, JONATHAN (generalized anxiety disorde r) (ICD-10 - F41.1) [facility] Other 12-13-2023 Evaluation note* Encounter Date Diagnosis Assessment Notes Treatment Notes Treatment Clinical Notes Jul, Right-sided chest wall pain (ICD -10 - R07.89) Ice/heat and Tylenol Lidocaine patch. XR to r/o rib fx Monitor breathing and call office or go to ER for increased pain or dyspnea Jul,ontusion of right chest wall, initial encounter (ICD-10 - S20.211A) Ice and heat. Lidocaine patch, Tylenol. Monitor for bruising Jul,rimary hypertension (ICD-10 - I10)Elevated due to pain. This patient is instructed to consume a healthy, low-fat, low-salt diet. They are also encouraged to continue exercise to achieve/maintain a normal BMI. Patient is instructed on home BP measurements: - rest for 5 minutes w/o talking- positioned w/ feeton floor and arm supported- average best 2/3 readings w/ goal < 135/85 [facility] Other 11-28-2023 Evaluation note* Encounter Date Diagnosis Assessment Notes Treatment Notes Treatment Clinical Notes Jun, Multiple abrasions (ICD-10 - T07 .XXXA) Cleanse w/ soap and water Apply Mupirocin bid until healed. Jun,ellulitis of right lower extremity (ICD-10 - L03.115)Continue Doxycycline, decrease to qd until gone. Jun,Stasis dermatitis of both legs (ICD-10 - I87.2)Avoid salt and elevate lower extremities, support stockings, inspect legs and feet daily for blisters and ulcerations. Moisturizers daily [facility] Other 11-21-2023 Evaluation note* Encounter Date Diagnosis Assessment Notes Treatment Notes Treatment Clinical Notes Jun, Multiple abrasions (ICD-10 - T07 .XXXA) Cleans w/ soap and water daily Mupirocin bid until ulcerations resolve Jun,brasion of right ankle, initial encounter (ICD-10 - S90.511A) Protect area from friction. Keep open to air unless irritated or draining Jun,ellulitis of right lower extremity (ICD-10 - L03.115)Rest and elevate. Begin antibiotics Call if develop increased pain or erythema [facility] Other 11-01-2023 Evaluation note* Encounter Date Diagnosis Assessment Notes Treatment Notes Treatment Clinical Notes Jun, Primary hypertension (ICD-10 - I 10) This patient is instructed to consume a healthy, low-fat, low-salt diet. They are also encouraged to continue exercise to achieve/maintain a normal BMI. Remains elevate in office Patient is instructed on home BP measurements: - rest for 5 minutes w/o talking- positioned w/ feeton floor and arm supported- average best 2/3 readings w/ goal < 135/85 _update office next week Jun,Stage 3a chronic kidney disease (ICD-10 - N18.31)The patient is instructed on adequate control of hypertension and diabetes, if appropriate. They are also educated on the associated risks of NSAIDs and PPI use with kidney disease. They were instructed on adequate fluid balance and to avoid dehydration. Important to improve BP Jun,Obstructive sleep apnea (ICD-10 - G47.33)This patient is aware of the benefits associated with JACI: With continued use, the patient reduces the risk for RI, CVA, HTN, cardiac dysrhythmias and sudden cardiac deaths.The patient is also aware of the association between JACI and morning headaches, daytime somnolence, fatigue and obesity, whichalso has been improved with continued use.The patient is compliant with treatment, wearing the equipment every night for greater than 4 hours.The patient is instructed to continue use of the CPAP forOSA treatment. Jun,hronic bronchitis, simple (ICD-10 - J41.0)Not using LABA/ICS routinely. Ok to use as needed but may do better using at least qd. Monitor wheezing and coughing UTD w/ vaccines Jun,Elevated cholesterol (ICD-10 - E78.00)Instructed on diet and exercise with continued statin therapy.Discussed the beneficial effects of lo wering cholesterol in reducing the risk for cerebrovascular and cardiovascular disease. Jun,Lumbar spondylosis (ICD-10 - M47.816)The patient is instructed to avoid bending, twisting or lifting. They are to use intermittent heat and ice as needed. They may schedule a massage or gentle manipulation. They may safely use Tylenol as needed. Continue w/ massage treatment Held on pain management referral Jun,astroesophageal reflux disease with esophagitis without hemorrhage (ICD-10 - K21.00)Diet instructions: Smaller portions, avoid eating and laying flat, avoid eating or drinking prior to bedtime. Weight loss. Jun,enign prostatic hyperplasia with lower urinary tract symptoms (ICD- 10 - N40.1)Symptoms tolerable. Push fluids, notify office w/ polyuria, dribbling or hesitancy Jun,AD (generalized anxiety disorder) (ICD-10 - F41.1)Mood stable Daughter living w/ him, which helps his anxiety He remains very active. No change in medical treatment [facility] Other 10-27-2023 Evaluation note* Encounter Date Diagnosis Assessment Notes Treatment Notes Treatment Clinical Notes May, JONATHAN (generalized anxiety disorde r) (ICD-10 - F41.1) [facility] Other 10-11-2023 Evaluation note* Encounter Date Diagnosis Assessment Notes Treatment Notes Treatment Clinical Notes May, Xerosis cutis (ICD-10 - L85.3) Moisturizer daily Handout w/ different moisterizers to purchase. Avoid hot showers May,Lumbar spondylosis (ICD-10 - M47.816)The patient is instructed to avoid bending, twisting or lifting. They are to use intermittent heat and ice as needed. They may schedule a massage or gentle manipulation. They may safely use Tylenol as needed. [facility] Other 08-01-2023 Miscellaneous Notes* Telephone Encounter - Neida Caballero MA - 03/20/2023 12:26 PM EDT DATE OF SERVICE: 03/15/2023 PATIENT'S PHONE NUMBERS: [phone] (home) OR @[facility]@ PROVIDER: Dr. Jaeger PROCEDURE: Elective Pain Management Procedure Left message on machine Asked pt to call back and speak with the specialty triage nurse with update. Please obtain percentage better and the duration of improvement. Please inquire if there were any problems afterwards. Neida Brink documented in this encounterRegency [facility] Company07-10-2023 Miscellaneous Notes* Telephone Encounter - Linda Knox LPN - 02/26/2023 4:42 PM EDT Spoke to patient in [place] to pre procedure instructions. Pt must have a tank driver. Pt advised to arrive 30 min [...] okay to take. Advised on location of [address] Pt will receive a follow up call several days after by a truck driver teamster. If you experience any increase in weakness, difficulty walking or significant increase in pain thatlast more than 4 hours, please proceed to the Emergency Room and tell them you had a spine procedure done recently. Additionally, call us and notify us of these symptoms. Please call [phone] if you have any questions. Pt verbalized understanding. documented in this encounterRegency Hospital Company07-03-2023 Miscellaneous Notes* Telephone Encounter - Linda Knox LPN - 02/19/2023 11:57 AM EDT Order approved Spoke to daughter in [facility] to pre procedure instructions. Daughter given scheduling number [phone] Pt must have a tank driver. Pt advised to arrive 30 min prior to the time given by the charge account identification clerk. Pt advised will also receive a call the day before from the surgery center to confirm date/time. Pt can eat and drink as normal. and Pt can take medications as normal. No alcohol 24 hours prior. Pt is on ASA.- 81 mg okay to take. and must Advised on location of [address] Pt will receive a follow up call several days after by a truck driver teamster. If you experience any increase in weakness, difficulty walking or significant increase in pain thatlast more than 4 hours, please proceed to the Emergency Room and tell them you had a spine procedure done recently. Additionally, call us and notify us of these symptoms. Please call [phone] if you have any questions. Pt verbalized understanding. * Telephone Encounter - Linda Knox LPN - 02/19/2023 9:43 AM EDT Spine Intervention order formatted for review * Telephone Encounter - Camilla Jarrell Pss - 02/19/2023 9:18 AM EDT Neishanarda Thorpe daughter Celi is calling Delio Jaeger, DO today to ask about getting patient a shot again - Last one in 2020 Please advise what patient needs as far as OV or MRI or if he can be scheduled for procedure - daughter states she left a VM somewhere last week but never heard back Please call Celi as patient cannot hear well [phone] Patient has been identified by name and birthdate. Duration of symptoms: N/A Person calling: daughter: Celi Call patient at: N/A [phone] (home) [phone] (cell) Was an appointment scheduled: No Closing statement: Results or non-symptom based questions: Thank you for calling [facility], your call will be returned within the next business day. Camilla Jarrell Pss documented in this encounterRegency Hospital Company06-28-2023 Evaluation note* Encounter Date Diagnosis Assessment Notes [...] reviewed and amended by provider signed below. Jan,rimary hypertension (ICD-10 - I10)This patient is instructed to consume a healthy, low-fat, low-salt diet. They are also encouraged to continue exercise to achieve/maintain a normal BMI. Jan,Stage 3a chronic kidney disease (ICD-10 - N18.31)The patient is instructed on adequate control of hypertension and diabetes, if appropriate. They are also educated on the associated risks of NSAIDs and PPI use with kidney disease. They were instructed on adequate fluid balance and to avoid dehydration. Jan,Obstructive sleep apnea (ICD-10 - G47.33)This patient is aware of the benefits associated with JACI: With continued use, the patient reduces the risk for RI, CVA, HTN, cardiac dysrhythmias and sudden cardiac deaths.The patient is also aware of the association between JACI and morning headaches, daytime somnolence, fatigue and obesity, whichalso has been improved with continued use.The patient is compliant with treatment, wearing the equipment every night for greater than 4 hours.The patient is instructed to continue use of the CPAP forOSA treatment. Jan,hronic bronchitis, simple (ICD-10 - J41.0)No ER visits for AE COntinue LABA/ICS - rare use of SHARIF Jan,Elevated cholesterol (ICD-10 - E78.00)Instructed on diet and exercise with continued statin therapy.Discussed the beneficial effects of lo wering cholesterol in reducing the risk for cerebrovascular and cardiovascular disease. Jan,Lumbar spondylosis (ICD-10 - M47.816)The patient is instructed to avoid bending, twisting or lifting. They are to use intermittent heat and ice as needed. They may schedule a massage or gentle manipulation. They may safely use Tylenol as needed. Referral back to pain management for injections Jan,astroesophageal reflux disease with esophagitis without hemorrhage (ICD-10 - K21.00)Diet instructions: Smaller portions, avoid eating and laying flat, avoid eating or drinking prior to bedtime. Weight loss. Jan,enign prostatic hyperplasia with lower urinary tract symptoms (ICD- 10 - N40.1)Symptoms tolerable PSA normal Jan,AD (generalized anxiety disorder) (ICD-10 - F41.1)Healthy diet, keep active [facility] Other 06-22-2023 Evaluation note* Encounter Date Diagnosis Assessment Notes Treatment Notes Treatment Clinical Notes Jan, Elevated cholesterol (ICD-10 - E 78.00) Jan,Stage 3a chronic kidney disease (ICD-10 - N18.31) Jan,rimary hypertension (ICD-10 - I10) Jan,Screening PSA (prostate specific antigen) (ICD-10 - Z12.5) Jan,High risk medication use (ICD-10 - Z79.899) [facility] Other 06-15-2023 Evaluation note* Encounter Date Diagnosis Assessment Notes Treatment Notes Treatment Clinical Notes Jan, 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 We had a long discussion with the patient today concerning their [...] and home regimen. Patient preferred no PT atthis time. 5. Injections: Discussed injections as a treatment option. Did not recommend any injections at thistime 6. Follow up as needed [facility] Other 04-24-2023 Evaluation note* Encounter Date Diagnosis Assessment Notes Treatment Notes Treatment Clinical Notes Nov, Stage 3a chronic kidney disease (ICD-10 - N18.31) The patient is instructed on adequate control of hypertension and diabetes, if appropriate. They are also educated on the associated risks of NSAIDs and PPI use with kidney disease. They were instructed on adequate fluid balance and to avoid dehydration. Nov,rimary hypertension (ICD-10 - I10)This patient is instructed to consume a healthy, low-fat, low-salt diet. They are also encouraged to continue exercise to achieve/maintain a normal BMI. Instructed on taking BP at home. - feet on floor, arm resting on table, average 2 lowest out of 3 w/ goal < 140.90 Nov,hronic bronchitis, simple (ICD-10 - J41.0)Continue inhalers as prescribed No ER/hosp trips for AECOPD. Nov,ilateral carotid artery stenosis (ICD-10 - I65.23)Carotid US: 60- 73% B/L - ontinue primary prevention w/ ASA and control BP Statin stopped due to ADR Nov,Elevated cholesterol (ICD-10 - E78.00)Diet and exercise. Stop statin due to side effects Nov,Retinal hemorrhage of right eye (ICD-10 - H35.61)Continue to monitor. Control BP. Nov,Lumbar spondylosis (ICD-10 - M47.816)The patient is instructed to avoid bending, twisting or lifting. They are to use intermittent heat and ice as needed. They may schedule a massage or gentle manipulation. They may safely use Tylenol as needed. 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 COntinue NSAIDs. f/u Orthopedics. Pain management for IA injection? Nov,OtherContinue ASA daily and low salt diet. Discussed use of statin, experiencing ADR and stopped [facility] Other 03-23-2023 Evaluation note* Encounter Date Diagnosis Assessment Notes Treatment Notes Treatment Clinical Notes Oct, Stage 3a chronic kidney disease (ICD-10 - N18.31) The patient is instructed on adequate control of hypertension and diabetes, if appropriate. They are also educated on the associated risks of NSAIDs and PPI use with kidney disease. They were instructed on adequate fluid balance and to avoid dehydration. Oct,rimary hypertension (ICD-10 - I10)This patient is instructed to consume a healthy, low-fat, low-salt diet. They are also encouraged to continue exercise to achieve/maintain a normal BMI. Hold on any change in medication. Increase BP this week likely due to knee pain and steroids Oct,Strain of left knee, initial encounter (ICD-10 - S86.912A)Ice, brace and elevate Stop walking on TM Await Orthopedics evaluation. 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 We had a long discussion with the patient today concerning their left knee osteoarthritis. The radiographs do show osteoarthritis of the knee. At this time the patient would like to avoid surgicalintervention. We did discuss the risk and benefits of surgical versus nonoperative management. The p atient would like to proceed with nonoperative management. We discussed that our options include injections, physical therapy, and the consistent use of anti- inflammatories. All 3 of these options, including their risks and benefits, were discussed at length with the patient. 2. Tylenol: Discussed taking Tylenol (acetaminophen). Recommended adjusting their dosing to 1000mg by mouth up to 3 times a day. 3. NSAIDs: Recommended utilizing Voltaren gel on a daily basis 4. Physical therapy: Discussed formal physical therapy and home regimen. Patient preferred no PT atthis. 5. Injections: Discussed injections as a treatment option. After consent was obtained, the left knee was injected with 3cc Kenalog and 7cc bupivicaine using sterile technique. Patient tolerated the injection well. 6. Follow up as needed [facility] Other 02-23-2023 Evaluation note* Encounter Date Diagnosis Assessment Notes Treatment Notes Treatment Clinical Notes Sep, Stage 3a chronic kidney disease (ICD-10 - N18.31) The patient is instructed on adequate control of hypertension and diabetes, if appropriate. They are also educated on the associated risks of NSAIDs and PPI use with kidney disease. They were instructed on adequate fluid balance and to avoid dehydration. Sep,rimary hypertension (ICD-10 - I10)This patient is instructed to consume a healthy, low-fat, low-salt diet. They are also encouraged to continue exercise to achieve/maintain a normal BMI. Sep,Obstructive sleep apnea (ICD-10 - G47.33)This patient is aware of the benefits associated with JACI: With continued use, the patient reduces the risk for RI, CVA, HTN, cardiac dysrhythmias and sudden cardiac deaths.The patient is also aware of the association between JACI and morning headaches, daytime somnolence, fatigue and obesity, whichalso has been improved with continued use.The patient is compliant with treatment, wearing the equipment every night for greater than 4 hours.The patient is instructed to continue use of the CPAP forOSA treatment. Sep,hronic bronchitis, simple (ICD-10 - J41.0)Keep active, use SHARIF as needed. Sep,AD (generalized anxiety disorder) (ICD-10 - F41.1)Healthy diet, exercise, keep active Continue medication Sep,Elevated cholesterol (ICD-10 - E78.00)Diet and exercise with continued statin therapy. Sep,Lumbar spondylosis (ICD-10 - M47.816)The patient is instructed to avoid bending, twisting or lifting. They are to use intermittent heat and ice as needed. They may schedule a massage or gentle manipulation. They may safely use Tylenol as needed. Sep,Nocturia (ICD-10 - R35.1) Sep,enign prostatic hyperplasia with lower urinary tract symptoms (ICD- 10 - N40.1)Symptoms tolerable [facility] Other 02-08-2023 Evaluation note* Encounter Date Diagnosis Assessment Notes Treatment Notes Treatment Clinical Notes Sep, Elevated cholesterol (ICD-10 - E 78.00) Sep,Stenosis of right carotid artery (ICD-10 - I65.21) Sep,Retinal hemorrhage of right eye (ICD-10 - H35.61) [facility] Other 01-06-2023 Evaluation note* Encounter Date Diagnosis Assessment Notes Treatment Notes Treatment Clinical Notes Aug, Carotid bruit, unspecified later ality (ICD-10 - R09.89) [facility] Other Evaluation noteNo assessment information available [facility] Work Phone: Evaluation noteNo InformationNort [employer] Other Evaluation note* Diagnosis Spinal stenosis, lumbar region with neurogenic claudication- Primary Lumbar radiculopathy, chronic Thoracic or lumbosacral neuritis or radiculitis, unspecified documented in this encounter [facility] note* Diagnosis Pseudoclaudication syndrome- Primary Spinal stenosis, lumbar region, with neurogenic claudication Lumbar radiculopathy Thoracic or lumbosacral neuritis or radiculitis, unspecified Pseudoclaudication syndrome Spinal stenosis, lumbar region, with neurogenic claudication Lumbar radiculopathy Thoracic or lumbosacral neuritis or radiculitis, unspecified documented in this encounter [facility] note* Diagnosis Onset Date Resolution Status Chronic bronchitis, simple acuteChronic kidney disease, stage 3aacuteElevated cholesterolacuteGeneralized anxiety disorderacuteHypertensionacuteLumbar spondylolysisacuteObstructive sleep apneaacute [facility] Work Phone: History general Narrative - Reported* Type Description Date Medical History Acute bronchitis due to other sp ecified organisms Medical HistoryContracture of left ankleMedical HistoryLeft foot painMedical HistoryLumbar spondylolysisMedical HistoryLumbar back pain with radiculopathy affecting left lower extremityMedical HistoryPlantar fasciitisMedical History Olecranon bursitis of right elbowMedical HistoryCervical spondylosis with radiculopathyMedical HistoryPrimary osteoarthritis of left shoulderMedical HistoryUlnar neuropathy at elbow of left upper extremityMedical HistoryLocalized swelling of left lower legMedical HistoryContusion of left foot, subsequent encounterMedical HistoryDyspnea on effortMedical HistoryObstructive sleep apnea Medical HistoryHyperlipidemia type IIMedical HistoryGeneralized anxiety disorder Medical HistorySpondylosis of cervical region without myelopathy or radiculopathyMedical HistoryGastroesophageal reflux disease with esophagitis without hemorrhageMedical HistoryChronic bronchitis, simpleMedical History Elevated blood-pressure reading, without diagnosis of hypertensionMedical HistoryChronic bronchitis with emphysemaMedical HistorySystolic murmurMedical HistoryBenign prostatic hyperplasia with lower urinary tract symptoms, symptom details unspecifiedMedical HistoryChronic kidney disease, stage 3aMedical HistoryAspiration pneumonia of left lower lobe due to regurgitated foodMedical HistoryDermatitisSurgical KmgpgxeShgvzwqqxrg4715, 2009Surgical AcpuiseOLZQ0379 Surgical WprnatzAUD5621Hwuvwbls HistoryRight Shoulder Arthroscopy01/2017Surgical HistoryRight THA11/2017Hospitalization Historysee surgical history [facility] [employer] Other Hospital Discharge instructionsAmbulatory Orders* Referral to Pain Management Location: None Selected [facility] Work Phone: Reason for referral (narrative)No reason for referral information availableKettering Health [facility] Work Phone: Summary

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
--- OUTSIDE RECORDS SUMMARY | 2025-08-19 08:18 | XMS_ITS | Clinical Summary ---
Author Organization [email or web address] [facility] tem Address [id number] [place] [address] Care Team Providers Care Shopping Investigator Name Role Phone Cecilio Benjamin DO Primary Care Provider [phone] Allergies Active AllergyReactionsCriticalityNoted LxdvJibbentoLodqtapfwp39/19/2017 Medications MedicationSigDispense QuantityRefillsLast FilledStart DateEnd DateStatus traMADol [...] kit Active Active Problems ProblemNoted DateDiagnosed DateRectal cvujzuep44/19/2017GERD (gastroesophageal reflux disease)01/05/2017 Social History Tobacco UseTypesPacks/DayYears UsedDateSmoking Tobacco: NeverAlcohol UseStandard Drinks/WeekCommentsNo0 (1 standard drink = 0.6 oz pure alcohol)ChildcareAnswer Date IzzmjcziTgfjehpcuMcezewy19/11/2019EmploymentAnswerDate RecordedEmployment Tvrkjar6101/28/2019Purpose - LifeAnswerDate RecordedPurpose and direction in life Xeyuujl5409/30/2020ex and Gender InformationValueDate RecordedSex Assigned at BirthNot on fileLegal SynKphh9303/23/2015 8:51 PM EDTGender IdentityNot on file Sexual OrientationNot on file Last Filed Vital Signs Vital SignReadingTime TakenCommentsBlood Uclmerrs839/78002/02/2017 9:50 AM EDT Pulse--Temperature--Respiratory Rate--Oxygen Saturation--Inhaled Oxygen Concentration--Dcxgxo06.6 kg (180 lb)02/02/2017 9:50 AM OQNYvthke391.7 cm (5' 8 )02/02/2017 9:50 AM EDTBody Mass Index27.37002/02/2017 9:50 AM EDT Plan of Treatment Health MaintenanceDue DateLast DoneCommentsDepression Dbrlmzedx68/08/1953Tobacco Vbgmnuqlj83/08/1952DTaP,Tdap and Td Vaccines (1 - Tdap)1960Zoster (Shingles) Vaccine (1 of 2)1991Fall Risk Auhpnlzji03/08/2006RSV ( or age 60+ yrs) (1 - 1-dose 75+ series)2016Influenza Tfbxtlc5804/20/2025 Medical Devices Not on file Insurance Care Teams Team MemberRelationshipSpecialtyStart DateEnd Date Cecilio Benjamin DO [address] [place] [address] [facility]12/20/16
--- OUTSIDE RECORDS SUMMARY | 2025-08-19 08:18 | XMS_ITS | Clinical Summary ---
Author Organization [facility] Address [address] [place] [address] Care Team Providers Care Charter And Tour Bus Driver Name Role Phone Unavailable Primary Care Provider Unavailabl e Social History Tobacco UseTypesPacks/DayYears UsedDateSmoking Tobacco: Never AssessedUT Safety & EnvironmentAnswerDate RecordedFear of Current or Ex-PartnerNot on file 10/11/2023Emotionally AbusedNot on file10/11/2023hysically AbusedNot on file 10/11/2023Sexually AbusedNot on file4Physically or Sexually AbusedNot on file10/11/2023Sex and Gender InformationValueDate RecordedSex Assigned at BirthNot on fileLegal OgpEgsh1802/16/2022 12:43 AM EDTGender IdentityNot on file Sexual OrientationNot on file Plan of Treatment Health MaintenanceDue DateLast DoneCommentsMedicare Annual Wellness (AWV) 1Depression Rihinmsnk50/08/1952Pneumococcal Vaccine: 50+ Years (1 of 2 - PCV)1960Adult Qqethrq3807/27/1963Zoster Vaccines (1 of 2)1991Fall Risk Gxnkmeqan22/08/2006COVID-19 Vaccine ( - season)2025Influenza Vaccine (#1)2025HIB VaccinesAged [...]
--- OUTSIDE RECORDS SUMMARY | 2025-08-19 08:18 | XMS_ITS | Clinical Summary ---
Author Organization [facility] Address [facility] [place] [address] Care Team Providers Care Solar Energy Advisor Name Role Phone Cecilio Benjamin DO Primary Care Provider Allergies Active AllergyReactionsCriticalityNoted WrbbNbwpvxupMgdmydfesfMcdguwq19/23/2014 Medications MedicationSigDispense QuantityRefillsLast FilledStart DateEnd DateStatus Multivitamin [...] (10/30/2017): Added automatically from request for surgery [id number] Complete tear of right rotator cuff05/17/2017 Overview (05/17/2017): Added automatically from request for surgery [id number] Incomplete tear of right rotator cuff01/11/2017Pain, upper back09/29/2013nxiety 09/11/2013Impingement syndrome, qksyfnpi62/23/2014Cubital tunnel syndrome 09/11/2013Status post cervical spinal hfxvgt0109/11/2013Multiple allergies Overview (09/11/2013): soap, chemicals perfumes AsthmaGERD (gastroesophageal reflux disease)JACI (obstructive sleep apnea)BPH (benign prostatic hyperplasia) Family History Medical HistoryRelationCommentskidney failureFatherStrokeMotherRelationStatus CommentsBrotherDeceasedFatherDeceasedMotherDeceased Social History Tobacco UseTypesPacks/DayYears UsedDateSmoking Tobacco: NeverSmokeless Tobacco: Never Tobacco Cessation:Counseling Given: No Alcohol UseStandard Drinks/WeekCommentsYes0 (1 standard drink = 0.6 oz pure alcohol)Katie's in coffeePHQ-2AnswerDate RecordedPHQ-2 tzjqg457rea Deprivation IndexAnswerDate RecordedNational Score (1-100), lower number is lower maeg023903/15/2023State Score (1-10), lower number is lower pjry047 Data from: https://www.neighborhoodatlas.medicine.[facility].edu/. Last address used for g[address] [place] [address]/15/2023Sex and Gender InformationValueDate RecordedSex Assigned at BirthNot on fileLegal UaaCakb7509/04/2013 2:49 PM EST Gender IdentityNot on fileSexual OrientationNot on fileOccupationIndustryJob Start DateJob End DateretiredNot on fileNot on fileNot on file Last Filed Vital Signs Vital SignReadingTime TakenCommentsBlood Cuwnrqhl843/7807 9:45 AM EDT Kgzos610303/15/2023 9:45 AM WPGJqxlsgcszkd22.7 ??C (98.1 ??F)03/15/2023 9:15 AM EDTRespiratory Jgng250303/15/2023 9:45 AM EDTOxygen Vlevdblqlr07%03/15/2023 9:45 AM EDTInhaled Oxygen Concentration--Jwvcpu94.5 kg (184 lb)05/09/2021 12:00 PM EDTself faaeqqTxchsd525.9 cm (5' 6.5 )05/09/2021 12:00 PM EDTBody Mass Index 29.2509 12:00 PM EDT Plan of Treatment Health MaintenanceDue DateLast DoneCommentsAnxiety Jhuzzwfiz53/08/1959Depression Kkmbrldfg89/08/1959RSV Vaccine (1 - 1-dose 75+ series)2016Diabetes Jtdizlshl74, 01/01/2018, 12/11/2017, Additional history exists Advance Directive Zpmnhsusag87/01/2025Covid-19 Vaccine ( season) /07/2022, 07/25/2021, 10/25/2020, Additional history existsInfluenza Vaccine (#1)/, 05/02/2019, 04/30/2018, Additional history existsDTaP,Tdap,Td Vaccine (2 - Td or Tdap)9001/03/2019Pneumococcal Vaccine: 50+Rgyxryyig27/08/2019, 08/30/2016, 03/06/2015Shingrix VaccineCompleted 05/03/2021, 01/28/2021, 05/31/2016, Additional history exists Medical Devices ImplantedTypeAreaManufacturerDevice IdentifierShelf Expiration DateModel / Serial / LotAnchor Corkscrew Fiberwire Tigerwire 5.5mm 2 Full Thread Biocomposite 14.7 - [id number] [facility]plant[facility]:Qty[facility]: Bone - Shoulder [employer]12/17/[id number] / / [id number] Swivelock Tenodesis 8mm Biocomposite 19.5mm Suture [place] Eyelet - [id number] Implanted:Qty: 1 [facility]29/[facility]Right: Bone - Shoulder [employer]06/19/[id number]-5 / / [id number] 56mm E Hemispherical Tritanium Acetabular Primary Rim Cluster Hole - [id number] Implanted:01/01/2018 at [facility] (Quantity not on file)Joint - HipRight: Bone - HipSTRY-[facility] VHSSZFYJJSO07/17/[id number] / [id number] / [id number] Trident 40mm 0d E X3 Acetabular Hip - [id number] Implanted:01/01/2018 at [facility] (Quantity not on file)Joint - HipRight: Bone - HipSTRY-HOW KOROYBJPBKW90/05/[id number] / [id number] / [id number] 40mm Kingston Biolox Delta Tritanium Femoral Hip - [id number] Implanted:01/01/2018 at [facility] (Quantity not on file)Joint - HipRight: Bone - HipSTRY-HOW BLQIVZCAKVJ23/07/[id number] / / [id number] Accolade Ii 6 132d Femoral - [id number] Implanted:01/01/2018 at [facility] (Quantity not on file)Joint - HipRight: Bone - HipSTRY-HOW KPEGDCWBSCM47/10/[id number] / [id number] / [id number] V40 +0mm Offset Kingston Taper Titanium Adapter Hip - [id number] Implanted:01/01/2018 at [facility] (Quantity not on file)Joint - HipRight: Bone - HipSTRY-[facility] MWHYGXHTECD89/09/[id number] / / [id number] Trident Secur-Fit Torx 6.5mm Titanium 20mm Bone Sterile Acetabular - [id number] Implanted:01/01/2018 at [facility] (Quantity not on file)ScrewRight: Bone - HipS BYAEDYVVGKP57/25/[id number] / [id number] / [id number] Procedures Procedure NamePriorityDate/TimeAssociated DiagnosisCommentsBASIC METABOLIC PANEL (EU,FV,HL,NATALI,MM,SP)ASAP01/02/2018 4:32 AM EDT from Last 3 Months or Most Recently Relevant to Health Maintenance Results * (ABNORMAL) BASIC METABOLIC PANEL (AK,AV,EU,FV,HL,NATALI,MM,SP) (01/02/2018 4:32 AM EDT)ComponentValueRef RangeTest MethodAnalysis TimePerformed AtPathologist JsjlelengMlrbkuq652(H)74 - 99 mg/dL01/02/2018 6:30 AM [facility] LABORATORYComment: The [place] Diabetes Association (ADA) provides guidance for cutoff [...] Standards of Medical Care in Diabetes 2016, [place] Diabetes Association. Diabetes Care. 2016.39(Suppl 1). DXY767 - 24 mg/dL01/02/2018 6:30 AM [facility] LABORATORYCreatinine1.22 0.73 - 1.22 mg/dL01/02/2018 6:30 AM [facility] GJUBCOESAMNgxvgs634612 - 144 mmol/L01/02/2018 6:30 AM [facility] LABORATORYPotassium4.43.7 - 5.1 mmol/L01/02/2018 6:30 AM [facility] UDVLTZCUYURtzatxks89493 - 105 mmol/L 01/02/2018 6:30 AM [facility] LQATYPJAOTEL81290 - 30 mmol/L01/02/2018 6:30 AM [facility] LABORATORYAnion Dwr386 - 18 mmol/L01/02/2018 6:30 AM [facility] LABORATORYCalcium8.1(L)8.6 - 10.0 mg/dL01/02/2018 6:30 AM [facility] LABORATORYeGFR->60001/02/2018 6:30 AM [facility] LABORATORYeGFR-All Other Races58.01/02/2018 6:30 AM [facility] Comment: eGFR (Estimated GFR) [...] AM EDT Narrative Authorizing ProviderResult TypeResult StatusTansammie [facility]IONALFinal ResultPerforming OrganizationAddressCity/State/ZIP CodePhone Number [facility] [phone] [facility] [place] [address], [place] from Last 3 Months or Most Recently Relevant to Health Maintenance Insurance Care Teams Team MemberRelationshipSpecialtyStart DateEnd Cecilio Benjamin DO PCP - GeneralInternal Medicine09/04/13
--- NOTE | 2025-08-19 08:28 | PM.CN ---
Consult Note: HPI Data of Consult Patient: known to practice within the last 3 years Consult date: 08/19/25 Requesting Physician: Erica Hope NP Primary Care Provider: Cecilio Benjamin DO Consult Narrative Reason for consult: low back pain Narrative: Ruperto Thorpe a pleasant 85 year old male presents for evaluation of chronic low back and left SIJ pain. historically pt has failed to benefit from > 6 weeks of PT/HEP, heat, ice, tylenol, nsaids. prior lumbar mri consistent with multilevel stenosis and ddd. pt utilizing tylenol and nabumetone with mild relief, denies side effects. pt noting mild relief post left sij injection. is engaged in water therapy and PT at this time. pt interested in orthotic brace for left foot drop as suggested by PT. cc:: CC: Erica Hope NP Review of Systems ROS Musculoskeletal Reports: back pain and joint pain PFSH [facility] Medical History (Updated 08/19/25 @ 08:36 by Valencia Duran RN) Foot drop, left ?M21.372 - Foot drop, left foot (ICD-10) Low back pain ?M54.50 - Low back pain, unspecified (ICD-10) Heartburn ?R12 - Heartburn (ICD-10) Sleep apnea ?G47.30 - Sleep apnea, unspecified (ICD-10) COPD (chronic obstructive pulmonary disease) ?J44.9 - Chronic obstructive pulmonary disease, unspecified (ICD-10) Asthma ?J45.909 - Unspecified asthma, uncomplicated (ICD-10) Hypertension ?I10 - Essential (primary) hypertension (ICD-10) Surgical History H/O cervical spine surgery ?Z98.890 - Other specified postprocedural states (ICD-10) S/P tonsillectomy and adenoidectomy ?Z90.89 - Acquired absence of other organs (ICD-10) History of ankle surgery ?Z98.890 - Other specified postprocedural states (ICD-10) S/P cholecystectomy ?Z90.49 - Acquired absence of other specified parts of digestive tract (ICD-10) S/P total hip arthroplasty ?Z96.649 - Presence of unspecified artificial hip joint (ICD-10) History of surgery on upper extremity ?Z98.890 - Other specified postprocedural states (ICD-10) Social History Little interest or pleasure in doing things: not at all Feeling down, depressed, or hopeless: not at all Meds Home Medications and Allergies Home Medications ?Medication ?Instructions ?Recorded ?Confirmed ?Type amlodipine 2.5 mg tablet 2.5 mg PO DAILY 01/28/24 08/10/25 History clonazepam 0.5 mg tablet 0.5 mg PO DAILY 01/28/24 08/10/25 History escitalopram oxalate 10 mg tablet 10 mg PO DAILY 01/28/24 08/10/25 History (Lexapro) nabumetone 500 mg tablet 500 mg PO BID 01/28/24 08/10/25 History omeprazole 20 mg capsule,delayed 20 mg PO DAILY 01/28/24 08/10/25 History release tamsulosin 0.4 mg capsule (Flomax) 0.4 mg PO DAILY 01/28/24 08/10/25 History albuterol sulfate 2.5 mg/3 mL 2.5 mg inhalation Q4H PRN 12/05/24 08/10/25 History (0.083 %) solution for nebulization shortness of breath or wheezing fluticasone 250 mcg-salmeterol 50 1 inh inhalation BID 12/05/24 08/10/25 History mcg/dose blistr powdr for inhalation BLACK ELDERBERRY 03/30/25 History ascorbic acid (vitamin C) 1,000 mg 1 g PO DAILY 03/30/25 08/10/25 History tablet (Vitamin C) aspirin 81 mg tablet 81 mg PO DAILY 03/30/25 08/10/25 History baclofen 10 mg tablet 10 mg PO BEDTIME 03/30/25 08/10/25 History calcium phosphate,dibasic 77 tab PO DAILY 03/30/25 History mg-vitamin D3 400 unit tablet doxycycline hyclate 100 mg capsule 100 mg PO 03/30/25 History fexofenadine 180 mg tablet 180 mg PO 03/30/25 History montelukast 10 mg tablet 10 mg PO DAILY 03/30/25 08/10/25 History multivitamin 1 tab PO DAILY 03/30/25 08/10/25 History Allergies Allergy/AdvReac Type Severity Reaction Status Date / Time bacitracin AdvReac Mild Rash Verified 08/10/25 09:49 Exam Constitutional Documenting provider has reviewed patient's vital signs: yes Common normals: no apparent distress, oriented x3 and alert General appearance: cooperative HENMT Common normals: normocephalic, hearing grossly normal bilaterally and moist oral mucous membranes Head and scalp: normocephalic Eye Common normals: PERRL Pupil: PERRL Neck & C-Spine Common normals: full ROM General: normal visual inspection Chest Common normals: inspection of chest normal Respiratory Common normals: normal respiratory effort, no retractions and no use of accessory muscles Back & Pelvis Lumbar spine/lower back: ROM limited, pain with ROM, lumbar spinal tenderness, straight leg raise positive right and straight leg raise positive left Sacroiliac joints: SI joint(s) abnormal Other: left sij positive natasha(patricks), gaenslens, thigh thrust, compression test strength 5/5 in BLE, decreased sensation left L4/5 Neuro Common normals: oriented x3 Sensorium/orientation: alert Psych Common normals: mental status grossly normal, thought process normal, cooperative, affect normal, speech normal and activity/motor behavior normal Speech: normal speech Thought process: normal thought process Results Additional Findings Additional findings: If on a controlled substance or opioids, I have checked an [place] report on this patient and there are no aberrancies noted in the prescribing history.??If on a controlled substance or opioid a drug screen was completed and reviewed within the last year, and if there has not been a drug screen completed we ordered one today to monitor higher risk, state monitored pain medication use. As part of providing excellent, safe, comprehensive care, the following was completed at our patient's visit: 1. A medication reconciliation and review to ensure accurate knowledge of current/active medications, including asking our patients to inform us about any hbhy-inx-bknxxew medications or herbal remedies/nutritional supplements/alternative remedies. 2. A review to specifically ensure our patients have had annual screening for screening for depression, screening for tobacco use, and screening for unhealthy alcohol use. For concerning screenings had a discussion with the patient, provided patient education, and recommended follow-up with primary care provider when appropriate. If patient noted with a risk of falling, they received education on strength, gait, and balance training to prevent future risk of falling. Portions of this note may have been carried over from the previous visit and updated as appropriate. Please note this office utilizes paper charting in addition to the electronic medical record. A list of current medications, vitals, and PMH is available there as the clinical staff outside of myself do not have access to [employer] charting during the clinic day operations. As part of providing quality comprehensive care the current medications, vitals, and PMH were reviewed in the paper chart. Assessment and Plan Assessment and Plan (1) Sacroiliitis: (2) Lumbar stenosis with neurogenic claudication: (3) Lumbar spondylosis: (4) Foot drop, left: Plan The patient has had over 3 months of moderate to severe low back and left SIJ pain with functional impairment and inadequate response to conservative care including NSAIDS (unless there are contraindication such as concurrent blood thinners), multiple oral or topical pain medications, and home exercise program/physical therapy.? Patient has completed >6 weeks of guided home exercise program and/or formal physical therapy program without relief of their symptoms.? The Oswestry Disability Index was completed, and the patient scored a 14%.?moderate improvement from prior can repeat bilateral L4-5 TFESI as needed under fluoroscopy for lumbar stenosis with NC. prior injection has provided >50% improvement greater than 3 months, does appear symptoms are worsening continue PT and aquatherapy. script provided for left foot drop brace f/u 6 weeks, sooner if needed
== END 2025-08-19 08:16 | disposition home or self-care (01) ==
LOC: PM 08:15
PROVIDERS: PCP Internal Medicine; Visit Provider Nurse Practitioner
DX: M46.1 Sacroiliitis, not elsewhere classified (principal); M48.062 Spinal stenosis, lumbar region with neurogenic claudication; M47.816 Spondylosis without myelopathy or radiculopathy, lumbar region; M21.372 Foot drop, left foot
CPT/HCPCS: G0463